=== PATIENT | female | born 1970 | race Hispanic/Latino ===

== ENCOUNTER 2022-08-16 10:48 | Emergency (ER) | payer BC ==
--- OUTSIDE RECORDS SUMMARY | 2022-08-16 11:09 | XMS REPORT | Continuity of Care Document ---
:1970 Author Organization [facility] t Address [address] [place] [address] Care Team Providers Name Role Phone Anne-Marie Cuellar Primary Care Physician JUSTINO HOLBROOK Attending Clinician Unavailable Leonardo Sims Attending Clinician Unavailable Justino Holbrook MD Attending Clinician Lavon Attending Clinician Unavailable WILLIAM BUSBY Attending Clinician Unavailable HEIDI RENDON Attending Clinician Unavailable LUIS DE LEON Attending Clinician Unavailable Luis De Leon MD Attending Clinician Doctor Unassigned, [place] Attending Clinician Unavailable Mela Dhaliwal Attending Clinician MELA DHALIWAL Attending Clinician Unavailable Melina Monroe Attending Clinician DR MELA OLVERA Attending Clinician Unavailable DR NILSA MUNOZ Attending Clinician Unavailable SANJAY GÓMEZ Attending Clinician Unavailable Sanjay Hobson Attending Clinician Only, Adc Test Attending Clinician Unavailable Shahrzad Attending Clinician Unavailable MARIA TERESA Attending Clinician Unavailable Nia Attending Clinician Unavailable DR MARICRUZ LUNDBERG Attending Clinician Unavailable Estrellita Espinosa OD Attending Clinician ESTRELLITA ESPINOSA Attending Clinician Unavailable DR PATRICK MILAN Attending Clinician Unavailable Amber Attending Clinician Unavailable DR NAVA ESTEVEZ Attending Clinician Unavailable Dayday Waite MD Attending Clinician DAYDAY WAITE Attending Clinician Unavailable MARCIA DICKENS Attending Clinician Unavailable Lavon Admitting Clinician Unavailable LUIS DE LEON Admitting Clinician Unavailable Anayeli Islas Admitting Clinician ANAYELI ISLAS Admitting Clinician Unavailable Melina Monroe Admitting Clinician DR MELA OLVERA Admitting Clinician Unavailable DR NILSA MUNOZ Admitting Clinician Unavailable SANJAY GÓMEZ Admitting Clinician Unavailable JUSTINO HOLBROOK Admitting Clinician Unavailable Justino Holbrook MD Admitting Clinician Shahrzad Admitting Clinician Unavailable MARIA TERESA Admitting Clinician Unavailable Nia Admitting Clinician Unavailable DR MARICRUZ LUNDBERG Admitting Clinician Unavailable DR PATRICK MILAN Admitting Clinician Unavailable Amber Admitting Clinician Unavailable DR NAVA ESTEVEZ Admitting Clinician Unavailable MARCIA DICKENS Admitting Clinician Unavailable Payers Payer Name Policy Type Policy Number Effective Date Expiration Date S ource HIM BCBS BLUE [id number] 2022 ADVANTAGE HMO 00:00:00 [facility] [id number] 2022 COMMUN[place] PLAN [place] 00:00:00 (MED[place] [id number] [place] [id number] (PPO) 1000 [id number] 1961 00:00:00 Problems Condition Condition Condition Status Onset Resolution Last Treating Co mments Source Name Details Category Date Date Treatment Clinician Date MEDIASTINA MEDIASTIN Diagnosis Active 2021-062022-05-03 Memoria L MASS AL MASS 0-12 21:48:00 l Active 00:00: [place] 04/10/2022 00 [facility] Fundic Fundic Problem Active [place] gland Gland 4-22 da polyposis Polyposis 00:00: Epis animal cop of stomach of Stomach [facility] Gastritis Gastritis Problem Active [place] 4-22 [facility] Cough Cough Problem Active [place] 3-24 da 00:[facility] History of History of Problem Active M at[place]or SARS-CoV-2 SARS-CoV-2 3-24 da 00:00: [facility] Eyelid Eyelid Disease Active 2020-06 Overview: Univer s lesion lesion 1-24 Formattin ity of 00:00: g of this [place] 00 note Medical might be Branch different from the original. Added automatic ally from request for surgery [id number] Hyperlipid Hyperlipid Problem Active 2019-06 M at[place] emia emia 1-12 da 00:00: [facility] Benign Benign Problem Active 2019-06 [place] essential Essential 1-12 da hypertensi Hypertensi 00:00: [facility] on on [facility] Low back Low Back Problem Active 2019-06 [place] pain Pain 1-12 da 00:00: [facility] Right side Right Side Problem Active 2019-06 M [facility] sciatica Sciatica 1-12 da 00:00: [facility] Subdural Subdural Disease Active Unive rs fluid fluid 6-06 ity of [place] Dysphagia, Dysphagia, Disease Active 2016-06 Overview : Univers pharyngoes pharyngoes 2-12 Formattin ity of ophageal ophageal 00:00: g of this [place] as phase phase 00 note Medical might be Branch different from the original. Added automatic ally from request for surgery [id number] Hydrocepha Hydrocepha Disease Active 2016-06 U nivers janet janet 2-12 ity of 00:00: [place] 00 Medical Branch Obesity Obesity Disease Active 2016-06 Univers (BMI (BMI 2-12 ity of 30-39.9) 30-39.9) 00:00: [place] 00 Medical Branch Aftercare Aftercare Disease Active 2016-06 Uni vers following following 07 ity of surgery of surgery of 00:00: [place] the the Medical nervous nervous Branch system system Obstructiv Obstructiv Disease Active 2016-06 U nivers e e 1-04 ity of hydrocepha hydrocepha 00:00: [place] janet janet 00 Medical Branch Over Over Disease Active Univers weight weight 7- ity of 00:00: [place] [facility] Hydrocepha Hydrocepha Problem Active M atagor janet janet 1 da 00:00: [facility] Contracept Contracept Disease Active U shaka michael michael 7 ity of management management 00:[place]: [place] History of History of Disease Active U shaka tubal tubal 705 ity of ligation ligation 00:00: [place] [facility] Branch 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 (finding) (finding) Active Problem 04/26/2022 [facility] ILLNESS, ILLNESS, Diagnosis Active 2022-05-03 Memoria UNSPECIFIE UNSPECIFIE 21:48:00 l D D Active [facility] Chronic Chronic Problem Active 2022-04-26 Me moria cough cough 23:31:32 l (finding) (finding) Herm yaneth Active Problem 04/26/2022 [facility] Gastroesop Gastroeso Problem Active 2022-04-26 Memoria hageal phageal 23:31:32 l reflux reflux Man disease disease (disorder) (disorder) Active Problem 04/26/2022 [facility] Hypertensi Hypertens Problem Active 2022-04-26 Memoria ve michael 23:31:32 l disorder, disorder, Herm yaneth systemic systemic arterial arterial (disorder) (disorder) Active Problem 04/26/2022 [facility] Microcytic Microcyti Problem Active 2022-04-26 Memoria hypochromi c 23:31:32 l c anemia hypochromi Herm yaneth (disorder) c anemia (disorder) Active Problem 04/26/2022 [facility] Costochond Disease Active U shaka lopez ity of [place] Medical [place] Allergies, Adverse Reactions, Alerts Allergy Allergy Status Severity Reaction(s) Onset Inactive Treating Comm ents Source Name Type Date Date Clinician Morphine DA Active Unknown 2019-06 [place] 07-01 Medical 00:00: Center 00 Morphine Propensi Active Itching Unive rs ty to 01-24 ity of adverse 00:00: [place] reaction 00 Medical s Branch MORPHINE DRUG Active Low ITCHING Univers INGREDI 01-24 ity of 00:00: [place] 00 Medical Branch Morphine Propensi Active Itching Unive rs ty to 01-24 ity of adverse 00:00: [place] reaction 00 Medical s to Branch drug morphine morphine Active Rhonda Conway Family History Family Member Diagnosis Comments Start Date Stop Date Source Natural father Heart [facility] Maternal Aunt Cancer [facility] Maternal Aunt Diabetes [facility] Natural mother Cancer [facility] Paternal Diabetes University of grandmother [facility] Natural sister Psychiatry [facility] Family member Arthritis [facility] Family member Asthma [facility] Family member defects Universi ty of [facility] Family member Breast Cancer Universi ty of [facility] Family member Colon Cancer Universit y [facility] Family member Depression [facility] Family member Genetic [facility] Family member High cholesterol Unive rsity of [facility] Family member Hypertension Universit y of [facility] Family member Mental retardation Uni versity [facility] Family member Neurological Universit y [facility] Family member Osteoporosis Universit y of [facility] Family member Other - see University of [facility] Family member Ovarian Cancer Univers ity [facility] Family [facility] Social History Social Habit Start Date Stop Date Quantity Comments Source History SDOH University o f Alcohol Frequency [place] M edical Branch History SDOH University o f Alcohol Std [place] Medical Drinks Branch History SDOH University o f Alcohol Binge [place] Medic al [place] Exposure to 2022-05-25 2022-06-04 Not sure University of SARS-CoV-2 00:00:00 10:37:00 [facility] (event) Branch Alcohol intake 2022-06-04 2022-06-04 0 /d University of 00:00:00 00:00:00 [facility] Alcohol Comment 2017-01-24 2017-01-24 socially Universit y of 00:00:00 00:00:00 [facility] Tobacco use and 2012-09-08 2012-09-08 Smokeless tobacco Un iversity of exposure 00:00:00 00:00:00 non-user [facility] Sex [birth year] At [birth year] Universit y of 00:00:00 00:00:00 [facility] Smoking Status Start Date Stop Date Source Tobacco smoking status [facility] Medications Ordered Filled Start Stop Current Ordering Indication Dosage Frequency Signature Comments Components Source Medication Medication Date Date Medication? Clinician (SIG) Name Name iopamidol 2021-06 No [id number] 75mL 75 mL, Univers (ISOVUE 08-05 Intravenou ity o f 370-500 mL) 21:00: 21:00 s, ONCE, 1 [place] injection 00 :00 dose, On Medica l 75 mL [facility] 06/04/22 at 1500, Routine aspirin 2021-06 No 325mg 325 mg, Unive rs tablet 325 08-05 Oral, ity of mg 19:00: 17:57 ONCE, 1 [place] 00 :00 dose, On Medical [facility] 06/04/22 at 1300, NADER ketorolac 2021-06 No 30mg 30 mg, Unive rs (TORADOL) 08-05 Slow IV ity of injection 19:00: 17:58 Push, [place] 30 mg 00 :00 ONCE, 1 Medical dose, On [facility] 06/04/22 at 1300, NADER allopurinoL 2021-06 Yes 300mg Take 300 U nivers 300 mg 2-06 mg by ity of tablet 16:46: mouth in [place] 01 the Medical morning. Branch acetic acid 2021-06 Yes 5[drp] Place 5 U nivers 2 % otic 2-06 Drops in ity of solution 16:46: both ears [place] 01 in the Medical morning Branch and 5 Drops at noon and 5 Drops in the evening. benzonatate 2021-06 Yes 200mg Take 200 U nivers 200 mg 2-06 mg by ity of capsule 16:46: mouth [place] 01 every 6 Medical (six) Branch hours as needed for Cough. budesonide 2021-06 Yes .25mg Inhale [facility] ers 0.25 mg/2 2-06 0.25 mg in ity of mL 16:46: the [place] nebulizer 01 morning Medical solution and 0.25 Branch mg in the evening. cetirizine 2021-06 Yes 10mg Take 10 mg U nivers 10 mg 2-06 by mouth ity of tablet 16:46: in the [place] morning. Medical Branch phenylephri 2021-06 Yes Take 1 [facility] ers ne-DM-guaif 2-06 TAB-CAP/M2 it y of enesin 16:46: by mouth [place] (DECONEX 01 every 4 Medical DMX) (four) Branch 10-17.5-385 hours as mg Tab needed (cough). famotidine 2021-06 Yes 20mg Take 20 mg U nivers 20 mg 2-06 by mouth ity of tablet 16:46: in the [place] morning Medical and 20 mg Branch in the evening. fluticasone 2021-06 Yes Use in [facility] ers propionate 2-06 each ity of 50 16:46: nostril [place] mcg/actuati daily. Medica l on nasal Branch spray hydroCHLORO 2021-06 Yes 12.5mg Take 12.5 Univers thiazide 2-06 mg by ity of 12.5 mg 16:46: mouth in [place] capsule the Medical morning. Branch montelukast 2021-06 Yes 10mg Take 10 mg Univers 10 mg 2-06 by mouth ity of tablet 16:46: at [place] [address] bedtime. Medical Branch omeprazole 2021-06 Yes 20mg Take 20 mg U nivers 20 mg 2-06 by mouth ity of capsule 16:46: in the [place] morning. Medical Branch pantoprazol 2021-06 Yes 40mg Take 40 mg Univers e 40 mg EC 2-06 by mouth ity o f tablet 16:46: in the [place] morning. Medical Branch sucralfate 2021-06 Yes 1g Take 1 g Uni vers 1 gram 2-06 by mouth ity of tablet 16:46: before [place] [address] meals and Medical at [place] bedtime. allopurinoL 2021-06 Yes 300mg Take 300 U nivers 300 mg 2-06 mg by ity of tablet 16:46: mouth in [place] 01 the Medical morning. Branch acetic acid 2021-06 Yes 5[drp] Place 5 U nivers 2 % otic 2-06 Drops in ity of solution 16:46: [place] 01 in the Medical morning Branch and 5 Drops at noon and 5 Drops in the evening. benzonatate 2021-06 Yes 200mg Take 200 U nivers 200 mg 2-06 mg by ity of capsule 16:46: mouth [place] 01 every 6 Medical (six) Branch hours as needed for Cough. budesonide 2021-06 Yes .25mg Inhale [facility] ers 0.25 mg/2 2-06 0.25 mg in ity of mL 16:46: the [place] nebulizer 01 morning Medical solution and 0.25 Branch mg in the evening. cetirizine 2021-06 Yes 10mg Take 10 mg U nivers 10 mg 2-06 by mouth ity of tablet 16:46: in the [place] morning. Medical Branch phenylephri 2021-06 Yes Take 1 [facility] ers ne-DM-guaif 2-06 TAB-CAP/M2 it y of enesin 16:46: by mouth [place] (DECONEX 01 every 4 Medical DMX) (four) Branch 10-17.5-385 hours as mg Tab needed (cough). famotidine 2021-06 Yes 20mg Take 20 mg U nivers 20 mg 2-06 by mouth ity of tablet 16:46: in the [place] morning Medical and 20 mg Branch in the evening. fluticasone 2021-06 Yes Use in [facility] ers propionate 2-06 each ity of 50 16:46: nostril [place] mcg/actuati 01 daily. Medica l on nasal Branch spray hydroCHLORO 2021-06 Yes 12.5mg Take 12.5 Univers thiazide 2-06 mg by ity of 12.5 mg 16:46: mouth in [place] capsule 01 the Medical morning. Branch montelukast 2021-06 Yes 10mg Take 10 mg Univers 10 mg 2-06 by mouth ity of tablet 16:46: at [place] [address] bedtime. Medical Branch omeprazole 2021-06 Yes 20mg Take 20 mg U nivers 20 mg 2-06 by mouth ity of capsule 16:46: in the [place] morning. Medical Branch pantoprazol 2021-06 Yes 40mg Take 40 mg Univers e 40 mg EC 2-06 by mouth ity o f tablet 16:46: in the morning. Medical Branch sucralfate 2021-06 Yes 1g Take 1 g Uni vers 1 gram 2-06 by mouth ity of tablet 16:46: before meals and Medical at Branch bedtime. traMADOL 50 2021-06- No 50mg Take 50 mg Univers mg tablet 2- by mouth ity o f 11:35: 00:00 every 8 [place] 55 :00 (eight) Medical hours as Branch needed. LISINOPRIL 2021-06 No 1{tbl} Take 1 Un maulik ORAL 2- tablet by ity of 11:35: 00:00 mouth [place] 45 :00 daily. Medical Branch IBUPROFEN/D 2021-06 No 1{tbl} Take 1 U nivers IPHENHYDRAM 2- tablet by it y of INE CIT 11:35: 00:00 mouth as [place] (ADVIL PM 42 :00 needed. Medical ORAL) Branch HYDROCHLORO 2021-06 No Take 1 Uni vers THIAZIDE 2- TAB-CAP/M2 ity of ORAL 11:35: 00:00 by mouth [place] 36 :00 daily. Medical Branch amlodipine 2021-06 No Take 1 Univ ers besylate 2- TAB-CAP/M2 ity of (AMLODIPINE 11:35: 00:00 by mouth [place] ORAL) 33 :00 daily. Medical Branch ondansetron 2021-06 Yes [id number] 1-2 U nivers 4 mg tablet 2-06 tablets ity o f 00:00: every 8 [place] 00 hours as Medical needed for Branch nausea benzonatate 2021-06 Yes [id number] 200mg Take 1 Univers 200 mg 2-06 capsule by ity of capsule 00:00: mouth 3 [place] 00 (three) Medical times Branch daily as needed for Cough. albuterol 2021-06 Yes [id number] 2{puff} Inhale 2 Univers 90 2-06 Puffs ity of mcg/actuati 00:00: every 4 [place] as on inhaler 00 (four) Medical hours as Branch needed for Wheezing or Shortness of Breath. ondansetron 2021-06 Yes [id number] 1-2 U nivers 4 mg tablet 2-06 tablets ity o f 00:00: every 8 [place] 00 hours as Medical needed for Branch nausea benzonatate 2021-06 Yes [id number] 200mg Take 1 Univers 200 mg 2-06 capsule by ity of capsule 00:00: mouth 3 [place] 00 (three) Medical times Branch daily as needed for Cough. albuterol 2021-06 Yes [id number] 2{puff} Inhale 2 Univers 90 2-06 Puffs ity of mcg/actuati 00:00: every 4 [place] as on inhaler 00 (four) Medical hours as Branch needed for Wheezing or Shortness of Breath. acetaminoph 2021-06- Yes [id number] 1{tbl} Take 1 U nivers en-codeine 2-06 12-14 tablet by ity of 300-30 mg 00:00: 05:59 mouth [place] tablet 00 :00 every 4 Medical (four) Branch hours as needed (pain) for up to 7 days. Indication s: acute pain allopurinol 2021-06 Yes 300 mg = 1 Memoria 300 mg oral 0-26 tab, PO, l tablet 17:52: Daily, # [place] 00 30 tab, 0 Refill(s), Pharmacy: [id number], 162.56, cm, 04/10/22 22:50:00 CDT, Height, 74.7, kg, 04/10/22 22:50:00 CDT, Weight docusate 2021-06 Yes 100 mg = 1 Mem oria sodium 100 0-26 cap, PO, l mg oral 17:52: Daily, 0 Michael n capsule 00 Refill(s) allopurinol 2021-06 Yes 300 mg = 1 Memoria 300 mg oral 0-26 tab, PO, l tablet 17:52: Daily, # Man 00 30 tab, 0 Refill(s), Pharmacy: [id number], 162.56, cm, 04/10/22 22:50:00 CDT, Height, 74.7, kg, 04/10/22 22:50:00 CDT, Weight docusate 2021-06 Yes 100 mg = 1 Mem oria sodium 100 0-26 cap, PO, l mg oral 17:52: Daily, 0 Michael n capsule 00 Refill(s) allopurinol 2021-06 Yes 300 mg = 1 Memoria 300 mg oral 0-26 tab, PO, l tablet 17:52: Daily, # [place] 00 30 tab, 0 Refill(s), Pharmacy: [id number], 162.56, cm, 04/10/22 22:50:00 CDT, Height, 74.7, kg, 04/10/22 22:50:00 CDT, Weight docusate 2021-06 Yes 100 mg = 1 Mem oria sodium 100 0-26 cap, PO, l mg oral 17:52: Daily, 0 Michael n capsule 00 Refill(s) allopurinol 2021-06 Yes 300 mg = 1 Memoria 300 mg oral 0-26 tab, PO, l tablet 17:52: Daily, # [place] 00 30 tab, 0 Refill(s), Pharmacy: [id number], 162.56, cm, 04/10/22 22:50:00 CDT, Height, 74.7, kg, 04/10/22 22:50:00 CDT, Weight docusate 2021-06 Yes 100 mg = 1 Mem oria sodium 100 0-26 cap, PO, l mg oral 17:52: Daily, 0 Michael n capsule 00 Refill(s) allopurinol 2021-06 Yes 300 mg = 1 Memoria 300 mg oral 0-26 tab, PO, l tablet 17:52: Daily, # Man 00 30 tab, 0 Refill(s), Pharmacy: [id number], 162.56, cm, 04/10/22 22:50:00 CDT, Height, 74.7, kg, 04/10/22 22:50:00 CDT, Weight docusate 2021-06 Yes 100 mg = 1 Mem oria sodium 100 0-26 cap, PO, l mg oral 17:52: Daily, 0 Michael n capsule 00 Refill(s) MiraLax 2021-06 Yes Notes: Memoria 0-16 Dissolve l 14:00: in 8 oz of Man 00 water or juice. (Same as: Miralax) docusate 2021-06 Yes Notes: Memoria 0-16 (Same as: l 14:00: Colace) [place] 00 (Do Not Crush) MiraLax 2021-06 Yes Notes: Memoria 0-16 Dissolve l 14:00: in 8 oz of [place] 00 water or juice. (Same as: Miralax) docusate 2021-06 Yes Notes: Memoria 0-16 (Same as: l 14:00: Colace) Man 00 (Do Not Crush) MiraLax 2021-06 Yes Notes: Memoria 0-16 Dissolve l 14:00: in 8 oz of [place] 00 water or juice. (Same as: Miralax) docusate 2021-06 Yes Notes: Memoria 0-16 (Same as: l 14:00: Colace) [place] 00 (Do Not Crush) MiraLax 2021-06 Yes Notes: Memoria 0-16 Dissolve l 14:00: in 8 oz of [place] 00 water or juice. (Same as: Miralax) docusate 2021-06 Yes Notes: Memoria 0-16 (Same as: l 14:00: Colace) [place] 00 (Do Not Crush) MiraLax 2021-06 Yes Notes: Memoria 0-16 Dissolve l 14:00: in 8 oz of [place] 00 water or juice. (Same as: Miralax) docusate 2021-06 Yes Notes: Memoria 0-16 (Same as: l 14:00: Colace) Man 00 (Do Not Crush) Dulcolax 2021-06 Yes Notes: Memoria Laxative 0-15 (Same As: l 18:16: Dulcolax, [place] 00 Bisco-Lax) Dulcolax 2021-06 Yes Notes: Memoria Laxative 0-15 (Same As: l 18:16: Dulcolax, [place] 00 Bisco-Lax) Dulcolax 2021-06 Yes Notes: Memoria Laxative 0-15 (Same As: l 18:16: Dulcolax, Man 00 Bisco-Lax) Dulcolax 2021-06 Yes Notes: Memoria Laxative 0-15 (Same As: l 18:16: Dulcolax, [place] 00 Bisco-Lax) Dulcolax 2021-06 Yes Notes: Memoria Laxative 0-15 (Same As: l 18:16: Dulcolax, [place] 00 Bisco-Lax) Dulcolax 2021-06 No Notes: Memoria Laxative 0-15 (Same As: l 18:14: Dulcolax, Man 00 Correctol) (Do Not Crush) "Do Not Crush" MiraLax 2021-06 No Notes: Memoria 0-15 Dissolve l 18:14: in 8 oz of [place] 00 water or juice. (Same as: Miralax) Dulcolax 2021-06 No Notes: Memoria Laxative 0-15 (Same As: l 18:14: Dulcolax, Man 00 Correctol) (Do Not Crush) "Do Not Crush" MiraLax 2021-06 No Notes: Memoria 0-15 Dissolve l 18:14: in 8 oz of [place] 00 water or juice. (Same as: Miralax) Dulcolax 2021-06 No Notes: Memoria Laxative 0-15 (Same As: l 18:14: Dulcolax, [place] 00 Correctol) (Do Not Crush) "Do Not Crush" MiraLax 2021-06 No Notes: Memoria 0-15 Dissolve l 18:14: in 8 oz of [place] 00 water or juice. (Same as: Miralax) Dulcolax 2021-06 No Notes: Memoria Laxative 0-15 (Same As: l 18:14: Dulcolax, Man 00 Correctol) (Do Not Crush) "Do Not Crush" MiraLax 2021-06 No Notes: Memoria 0-15 Dissolve l 18:14: in 8 oz of [place] 00 water or juice. (Same as: Miralax) Dulcolax 2021-06 No Notes: Memoria Laxative 0-15 (Same As: l 18:14: Dulcolax, [place] 00 Correctol) (Do Not Crush) "Do Not Crush" MiraLax 2021-06 No Notes: Memoria 0-15 Dissolve l 18:14: in 8 oz of [place] 00 water or juice. (Same as: Miralax) montelukast 2021-06 Yes Notes: [place] alivia 0-14 (Same l 02:00: as:Singula [place] 00 ir) montelukast 2021-06 Yes Notes: [place] alivia 0-14 (Same l 02:00: as:Singula [place] 00 ir) montelukast 2021-06 Yes Notes: [place] alivia 0-14 (Same l 02:00: as:Singula [place] ir) montelukast 2021-06 Yes Notes: [place] alivia 0-14 (Same l 02:00: as:Singula Man ir) montelukast 2021-06 Yes Notes: [place] alivia 0-14 (Same l 02:00: as:Singula [place] ir) guaiFENesin 2021-06 Yes Notes: [place] alivia 0-13 (Same as: l 14:00: Guaifenesi [place] 00 n [place], Humibid [place], Mucinex) "Do Not Crush" Take medication with plenty of water. acetic acid 2021-06 Yes 5 drp, [place] alivia otic 2% 0-13 Route: l solution 14:00: BOTH EARS, Her swanson 00 Drug Form: SOLN, Dosing Weight 74.7, kg, TID, Start date: 04/11/22 9:00:00 CDT, Duration: 30 day, Stop date: 05/10/22 17:00:00 [employer], 0 amLODIPine 2021-06 Yes Notes: Memor ia 0-13 (Same as: l 14:00: Norvasc) famotidine 2021-06 Yes Notes: Memor ia 20 mg oral 0-13 (Same as: l tablet 14:00: Pepcid) hydrochloro 2021-06 Yes Notes: [place]ble alivia thiazide 0-13 (Same as: l 14:00: Hydrodiuri Man 00 l). Give with food. sucralfate 2021-06 Yes Notes: May M emoria 0-13 interfere l 14:00: w/enteral [place] 00 feeds - Take 1 hr before or 2 hr after antacids, dairy pdt, meals & minerals - On empty stomach. For patients unable to swallow tablet, dissolve in 10mL - 30mL of water or juice and stir before giving. (Same As: Carafate) guaiFENesin 2021-06 Yes Notes: [place] alivia 0-13 (Same as: l 14:00: Guaifenesi Man 00 n [place], Humibid [place], Mucinex) "Do Not Crush" Take medication with plenty of water. acetic acid 2021-06 Yes 5 drp, [place] alivia otic 2% 0-13 Route: l solution 14:00: BOTH EARS, Her sw[place] 00 Drug Form: SOLN, Dosing Weight 74.7, kg, TID, Start date: 04/11/22 9:00:00 CDT, Duration: 30 day, Stop date: 05/10/22 17:00:00 [employer], 0 amLODIPine 2021-06 Yes Notes: Memor ia 0-13 (Same as: l 14:00: Norvasc) famotidine 2021-06 Yes Notes: Memor ia 20 mg oral 0-13 (Same as: l tablet 14:00: Pepcid) hydrochloro 2021-06 Yes Notes: [place] alivia thiazide 0-13 (Same as: l 14:00: Hydrodiuri l). Give with food. sucralfate 2021-06 Yes Notes: October emoria 0-13 interfere l 14:00: w/enteral feeds - Take 1 hr before or 2 hr after antacids, dairy pdt, meals & minerals - On empty stomach. For patients unable to swallow tablet, dissolve in 10mL - 30mL of water or juice and stir before giving. (Same As: Carafate) guaiFENesin 2021-06 Yes Notes: [place] alivia 0-13 (Same as: l 14:00: Guaifenesi n [place], Humibid [place], Mucinex) "Do Not Crush" Take medication with plenty of water. acetic acid 2021-06 Yes 5 drp, [facility] alivia otic 2% 0-13 Route: l solution 14:00: BOTH EARS, Her swanson 00 Drug Form: SOLN, Dosing Weight 74.7, kg, TID, Start date: 04/11/22 9:00:00 CDT, Duration: 30 day, Stop date: 05/10/22 17:00:00 [employer]ODUCTION [employer]OCIATE, 0 amLODIPine 2021-06 Yes Notes: Memor ia 0-13 (Same as: l 14:00: Norvasc) famotidine 2021-06 Yes Notes: [facility] ia 20 mg oral 0-13 (Same as: l tablet 14:00: Pepcid) hydrochloro 2021-06 Yes Notes: [facility] alivia thiazide 0-13 (Same as: l 14:00: Hydrodiuri Man 00 l). Give with food. sucralfate 2021-06 Yes Notes: October M emoria 0-13 interfere l 14:00: w/enteral [place] 00 feeds - Take 1 hr before or 2 hr after antacids, dairy pdt, meals & minerals - On empty stomach. For patients unable to swallow tablet, dissolve in 10mL - 30mL of water or juice and stir before giving. (Same As: Carafate) guaiFENesin 2021-06 Yes Notes: [facility] alivia 0-13 (Same as: l 14:00: Guaifenesi Man 00 n [place], Humibid [place], Mucinex) "Do Not Crush" Take medication with plenty of water. acetic acid 2021-06 Yes 5 drp, [facility] alivia otic 2% 0-13 Route: l solution 14:00: BOTH EARS, Her swanson 00 Drug Form: SOLN, Dosing Weight 74.7, kg, TID, Start date: 04/11/22 9:00:00 CDT, Duration: 30 day, Stop date: 05/10/22 17:00:00 [employer]ODUCTION [employer]OCIATE, 0 amLODIPine 2021-06 Yes Notes: Mem[facility] ia 0-13 (Same as: l 14:00: Norvasc) famotidine 2021-06 Yes Notes: [facility] ia 20 mg oral 0-13 (Same as: l tablet 14:00: Pepcid) hydrochloro 2021-06 Yes Notes: [facility] alivia thiazide 0-13 (Same as: l 14:00: Hydrodiuri [place] 00 l). Give with food. sucralfate 2021-06 Yes Notes: October M emoria 0-13 interfere l 14:00: w/enteral [place] 00 feeds - Take 1 hr before or 2 hr after antacids, dairy pdt, meals & minerals - On empty stomach. For patients unable to swallow tablet, dissolve in 10mL - 30mL of water or juice and stir before giving. (Same As: Carafate) guaiFENesin 2021-06 Yes Notes: [facility] alivia 0-13 (Same as: l 14:00: Guaifenesi Man 00 n [place], Humibid [place], Mucinex) "Do Not Crush" Take medication with plenty of water. 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 Give with food. sucralfate 2021-06 Yes Notes: May M emoria 0-13 interfere l 14:00: w/enteral [place] 00 feeds - Take 1 hr before or 2 hr after antacids, dairy pdt, meals & minerals - On empty stomach. For patients unable to swallow tablet, dissolve in 10mL - 30mL of water or juice and stir before giving. (Same As: Carafate) pantoprazol 2021-06 Yes Notes: [facility] alivia e 0-13 Tablet l 12:30: should not [place] 00 be chewed or crushed. (Same as: Protonix) pantoprazol 2021-06 Yes Notes: [facility] alivia e 0-13 Tablet l 12:30: should not [place] 00 be chewed or crushed. (Same as: Protonix) pantoprazol 2021-06 Yes Notes: [facility] alivia e 0-13 Tablet l 12:30: should not [place] 00 be chewed or crushed. (Same as: Protonix) pantoprazol 2021-06 Yes Notes: [facility] alivia e 0-13 Tablet l 12:30: should not [place] 00 be chewed or crushed. (Same as: Protonix) pantoprazol 2021-06 Yes Notes: [facility] alivia e 0-13 Tablet l 12:30: should not Man 00 be chewed or crushed. (Same as: Protonix) budesonide 2021-06 Yes Notes: [facility] ia 0.25 mg/2 0-13 (Same As: l mL 05:07: Pulmicort Man inhalation 00 respule). suspension budesonide 2021-06 Yes Notes: [facility] ia 0.25 mg/2 0-13 (Same As: l mL 05:07: Pulmicort [place] inhalation 00 respule). suspension budesonide 2021-06 Yes Notes: Mem[facility] ia 0.25 mg/2 0-13 (Same As: l mL 05:07: Pulmicort [place] inhalation 00 respule). suspension budesonide 2021-06 Yes Notes: [facility] ia 0.25 mg/2 0-13 (Same As: l mL 05:07: Pulmicort Man inhalation 00 respule). suspension budesonide 2021-06 Yes Notes: [facility] ia 0.25 mg/2 0-13 (Same As: l mL 05:07: Pulmicort [place] inhalation 00 respule). suspension benzonatate 2021-06 Yes Notes: [facility] alivia 0-13 (Same As: l 05:01: [place] Man 00 Perles) "Do Not Crush" benzonatate 2021-06 Yes Notes: [facility] alivia 0-13 (Same As: l 05:01: [place] Man 00 Perles) "Do Not Crush" benzonatate 2021-06 Yes Notes: [facility] alivia 0-13 (Same As: l 05:01: [place] Man 00 Perles) "Do Not Crush" benzonatate 2021-06 Yes Notes: [facility] alivia 0-13 (Same As: l 05:01: [place] Man 00 Perles) "Do Not Crush" benzonatate 2021-06 Yes Notes: [facility] alivia 0-13 (Same As: l 05:01: Tess[place]on [place] 00 Perles) "Do Not Crush" influenza 2021-06 Yes Notes: Memori a virus 0-13 (Same as: l vaccine, 04:59: Fluzone Michael n inactivated 55 Quadrivale nt, Fluarix Quadrivale nt) For patients 6 - 35 months of age (0.5 mL IM) For 3 years of age and older (0.5 mL IM) Shake well before use influenza 2021-06 Yes Notes: [facility] a virus 0-13 (Same as: l vaccine, 04:59: Fluzone Michael n inactivated 55 Quadrivale nt, Fluarix Quadrivale nt) For patients 6 - 35 months of age (0.5 mL IM) For 3 years of age and older (0.5 mL IM) Shake well before use influenza 2021-06 Yes Notes: [facility] a virus 0-13 (Same as: l vaccine, 04:59: Fluzone Michael n inactivated 55 Quadrivale nt, Fluarix Quadrivale nt) For patients 6 - 35 months of age (0.5 mL IM) For 3 years of age and older (0.5 mL IM) Shake well before use influenza 2021-06 Yes Notes: [facility] a virus 0-13 (Same as: l vaccine, 04:59: Fluzone Michael n inactivated 55 Quadrivale nt, Fluarix Quadrivale nt) For patients 6 - 35 months of age (0.5 mL IM) For 3 years of age and older (0.5 mL IM) Shake well before use influenza 2021-06 Yes Notes: [facility] a virus 0-13 (Same as: l vaccine, 04:59: Fluzone Michael n inactivated 55 Quadrivale nt, Fluarix Quadrivale nt) For patients 6 - 35 months of age (0.5 mL IM) For 3 years of age and older (0.5 mL IM) Shake well before use guaiFENesin 2021-06 No Notes: [facility] alivia 0-13 (Same as: l 04:38: Guaifenesi Man 00 n [place], Humibid LA, Mucinex) "Do Not Crush" Take medication with plenty of water. aiFENesin 2021-06 No Notes: [facility] alivia 0-13 (Same as: l 04:38: Guaifenesi Man 00 n [place], Humibid LA, Mucinex) "Do Not Crush" Take medication with plenty of water. aiFENesin 2021-06 No Notes: [facility] aliiva 0-13 (Same as: l 04:38: Guaifenesi Man 00 n LA, Humibid LA, Mucinex) "Do Not Crush" Take medication with plenty of water. aiFENesin 2021-06 No Notes: [facility] alivia 0-13 (Same as: l 04:38: Guaifenesi Man 00 n LA, Humibid LA, Mucinex) "Do Not Crush" Take medication with plenty of water. aiFENesin 2021-06 No Notes: [facility] alivia 0-13 (Same as: l 04:38: Guaifenesi Man 00 n [place], Humibid [place], Mucinex) "Do Not Crush" Take medication with plenty of water. Dilaudid 2021-06 Yes Notes: [facility] 0-13 Same as: l 04:22: Dilaudid [place] 00 Dilaudid 2021-06 Yes Notes: [facility] 0-13 Same as: l 04:22: Dilaudid [place] Dilaudid 2021-06 Yes Notes: [facility] 0-13 Same as: l 04:22: Dilaudid Man 00 Dilaudid 2021-06 Yes Notes: [facility] 0-13 Same as: l 04:22: Dilaudid Man 00 Dilaudid 2021-06 Yes Notes: [facility] 0-13 Same as: l 04:22: Dilaudid Man 00 Dilaudid 2021-06 No Notes: [facility] 0-13 Same as: l 04:19: Dilaudid [place] 00 Dilaudid 2021-06 No Notes: [facility] 0-13 Same as: l 04:19: Dilaudid [place] 00 Dilaudid 2021-06 No Notes: [facility] 0-13 Same as: l 04:19: Dilaudid Man 00 Dilaudid 2021-06 No Notes: [facility] 0-13 Same as: l 04:19: Dilaudid [place] 00 Dilaudid 2021-06 No Notes: [facility] 0-13 Same as: l 04:19: Dilaudid Man 00 omeprazole 2021-06 Yes 20 mg = 1 Me moria 20 mg oral 0-13 cap, PO, l delayed 04:18: Daily, # Michael n release 00 30 cap, 0 capsule Refill(s) omeprazole 2021-06 Yes 20 mg = 1 Me moria 20 mg oral 0-13 cap, PO, l delayed 04:18: Daily, # Michael n release 00 30 cap, 0 capsule Refill(s) omeprazole 2021-06 Yes 20 mg = 1 Me moria 20 mg oral 0-13 cap, PO, l delayed 04:18: Daily, # Michael n release 00 30 cap, 0 capsule Refill(s) omeprazole 2021-06 Yes 20 mg = 1 Me moria 20 mg oral 0-13 cap, PO, l delayed 04:18: Daily, # Michael n release 00 30 cap, 0 capsule Refill(s) omeprazole 2021-06 Yes 20 mg = 1 Me moria 20 mg oral 0-13 cap, PO, l delayed 04:18: Daily, # Michael n release 00 30 cap, 0 capsule Refill(s) budesonide 2021-06 Yes 0.25 mg = Me moria 0.25 mg/2 0-13 2 mL, NEB, l mL 04:17: BID, # 60 [place] inhalation 00 ea, 3 suspension Refill(s) budesonide 2021-06 Yes 0.25 mg = Me moria 0.25 mg/2 0-13 2 mL, NEB, l mL 04:17: BID, # 60 [place] inhalation 00 ea, 3 suspension Refill(s) budesonide 2021-06 Yes 0.25 mg = Me moria 0.25 mg/2 0-13 2 mL, NEB, l mL 04:17: BID, # 60 Man inhalation 00 ea, 3 suspension Refill(s) budesonide 2021-06 Yes 0.25 mg = Me moria 0.25 mg/2 0-13 2 mL, NEB, l mL 04:17: BID, # 60 Man inhalation 00 ea, 3 suspension Refill(s) budesonide 2021-06 Yes 0.25 mg = Me moria 0.25 mg/2 0-13 2 mL, NEB, l mL 04:17: BID, # 60 [place] inhalation 00 ea, 3 suspension Refill(s) benzonatate 2021-06 Yes 200 mg = 1 Memoria 200 mg oral 0-13 cap, PO, l capsule 04:15: Q6H, PRN Michael n 00 as needed for cough, 0 Refill(s) benzonatate 2021-06 Yes 200 mg = 1 [facility] 200 mg oral 0-13 cap, PO, l capsule 04:15: Q6H, PRN Michael n 00 as needed for cough, 0 Refill(s) benzonatate 2021-06 Yes 200 mg = 1 [facility] 200 mg oral 0-13 cap, PO, l capsule 04:15: Q6H, PRN Michael n 00 as needed for cough, 0 Refill(s) benzonatate 2021-06 Yes 200 mg = 1 [facility] 200 mg oral 0-13 cap, PO, l capsule 04:15: Q6H, PRN Michael n 00 as needed for cough, 0 Refill(s) benzonatate 2021-06 Yes 200 mg = 1 Memoria 200 mg oral 0-13 cap, PO, l capsule 04:15: Q6H, PRN Michael n 00 as needed for cough, 0 Refill(s) fluticasone 2021-06 Yes 50 Memori a propionate 0-13 microgram, l 04:13: INHALATION [place] 00 , Daily, 0 Refill(s) fluticasone 2021-06 Yes 50 Mem[facility] a propionate 0-13 microgram, l 04:13: INHALATION [place] 00 , Daily, 0 Refill(s) fluticasone 2021-06 Yes 50 Memori a propionate 0-13 microgram, l 04:13: INHALATION Man 00 , Daily, 0 Refill(s) fluticasone 2021-06 Yes 50 Memori a propionate 0-13 microgram, l 04:13: INHALATION Man 00 , Daily, 0 Refill(s) fluticasone 2021-06 Yes 50 Memori a propionate 0-13 microgram, l 04:13: INHALATION [place] 00 , Daily, 0 Refill(s) acetic acid 2021-06 Yes 5 drp, [facility] alivia otic 2% 0-13 BOTH EARS, l solution 04:11: TID, # 15 Herm yaneth 00 ml, 0 Refill(s) acetic acid 2021-06 Yes 5 drp, [facility] alivia otic 2% 0-13 BOTH EARS, l solution 04:11: TID, # 15 Herm yaneth 00 ml, 0 Refill(s) acetic acid 2021-06 Yes 5 drp, [facility] alivia otic 2% 0-13 BOTH EARS, l solution 04:11: TID, # 15 Herm yaneth 00 ml, 0 Refill(s) acetic acid 2021-06 Yes 5 drp, [facility] alivia otic 2% 0-13 BOTH EARS, l solution 04:11: TID, # 15 Herm yaneth 00 ml, 0 Refill(s) acetic acid 2021-06 Yes 5 drp, [facility] alivia otic 2% 0-13 BOTH EARS, l solution 04:11: TID, # 15 Herm yaneth 00 ml, 0 Refill(s) pantoprazol 2021-06 Yes 40 mg = 1 M emoria e 40 mg 0-13 tab, PO, l oral 04:10: Daily, # [place] enteric 00 30 tab, 0 coated Refill(s) tablet pantoprazol 2021-06 Yes 40 mg = 1 M emoria e 40 mg 0-13 tab, PO, l oral 04:10: Daily, # Man enteric 00 30 tab, 0 coated Refill(s) tablet pantoprazol 2021-06 Yes 40 mg = 1 M emoria e 40 mg 0-13 tab, PO, l oral 04:10: Daily, # Man enteric 00 30 tab, 0 coated Refill(s) tablet pantoprazol 2021-06 Yes 40 mg = 1 M emoria e 40 mg 0-13 tab, PO, l oral 04:10: Daily, # Man enteric 00 30 tab, 0 coated Refill(s) tablet pantoprazol 2021-06 Yes 40 mg = 1 M emoria e 40 mg 0-13 tab, PO, l oral 04:10: Daily, # [place] enteric 00 30 tab, 0 coated Refill(s) tablet amLODIPine 2021-06 Yes 5 mg = 1 Mem oria 5 mg oral 0-13 tab, PO, l tablet 04:06: Daily, # Man 00 30 tab, 0 Refill(s) Deconex DMX 2021-06 Yes PO, Q4H, Me moria 0-13 PRN as l 04:06: needed for Man 00 cough and congestion , 0 Refill(s) amLODIPine 2021-06 Yes 5 mg = 1 Mem oria 5 mg oral 0-13 tab, PO, l tablet 04:06: Daily, # [place] 00 30 tab, 0 Refill(s) Deconex DMX 2021-06 Yes PO, Q4H, Me moria 0-13 PRN as l 04:06: needed for [place] 00 cough and congestion , 0 Refill(s) amLODIPine 2021-06 Yes 5 mg = 1 Mem oria 5 mg oral 0-13 tab, PO, l tablet 04:06: Daily, # Man 00 30 tab, 0 Refill(s) Deconex DMX 2021-06 Yes PO, Q4H, Me moria 0-13 PRN as l 04:06: needed for Man 00 cough and congestion , 0 Refill(s) amLODIPine 2021-06 Yes 5 mg = 1 Mem oria 5 mg oral 0-13 tab, PO, l tablet 04:06: Daily, # [place] 00 30 tab, 0 Refill(s) Deconex DMX 2021-06 Yes PO, Q4H, Me moria 0-13 PRN as l 04:06: needed for Man 00 cough and congestion , 0 Refill(s) amLODIPine 2021-06 Yes 5 mg = 1 Mem oria 5 mg oral 0-13 tab, PO, l tablet 04:06: Daily, # [place] 00 30 tab, 0 Refill(s) Deconex DMX 2021-06 Yes PO, Q4H, Me moria 0-13 PRN as l 04:06: needed for [place] 00 cough and congestion , 0 Refill(s) famotidine 2021-06 Yes 20 mg = 1 Me moria 20 mg oral 0-13 tab, PO, l tablet 04:05: BID, # 60 Michael n 00 tab, 0 Refill(s) famotidine 2021-06 Yes 20 mg = 1 Me moria 20 mg oral 0-13 tab, PO, l tablet 04:05: BID, # 60 Michael n 00 tab, 0 Refill(s) famotidine 2021-06 Yes 20 mg = 1 Me moria 20 mg oral 0-13 tab, PO, l tablet 04:05: BID, # 60 Michael n 00 tab, 0 Refill(s) famotidine 2021-06 Yes 20 mg = 1 Me moria 20 mg oral 0-13 tab, PO, l tablet 04:05: BID, # 60 Michael n 00 tab, 0 Refill(s) famotidine 2022-1 Yes 20 mg = 1 Me moria 20 mg oral 0-13 tab, PO, l tablet 04:05: BID, # 60 Michael n 00 tab, 0 Refill(s) montelukast 2021-06 Yes 10 mg = 1 M emoria 10 mg oral 0-13 tab, PO, l tablet 04:04: Bedtime, # Cathleen nn 00 30 tab, 0 Refill(s) montelukast 2021-06 Yes 10 mg = 1 M emoria 10 mg oral 0-13 tab, PO, l tablet 04:04: Bedtime, # Cathleen nn 00 30 tab, 0 Refill(s) montelukast 2021-06 Yes 10 mg = 1 M emoria 10 mg oral 0-13 tab, PO, l tablet 04:04: Bedtime, # Cathleen nn 00 30 tab, 0 Refill(s) montelukast 2021-06 Yes 10 mg = 1 M emoria 10 mg oral 0-13 tab, PO, l tablet 04:04: Bedtime, # Cathleen nn 00 30 tab, 0 Refill(s) montelukast 2021-06 Yes 10 mg = 1 M emoria 10 mg oral 0-13 tab, PO, l tablet 04:04: Bedtime, # Cathleen nn 00 30 tab, 0 Refill(s) hydrochloro 2021-06 Yes 12.5 mg, Me moria thiazide 0-13 PO, Daily, l 04:03: 0 Man 00 Refill(s) hydrochloro 2021-06 Yes 12.5 mg, Me moria thiazide 0-13 PO, Daily, l 04:03: 0 Man 00 Refill(s) hydrochloro 2021-06 Yes 12.5 mg, Me moria thiazide 0-13 PO, Daily, l 04:03: 0 [place] 00 Refill(s) hydrochloro 2021-06 Yes 12.5 mg, Me moria thiazide 0-13 PO, Daily, l 04:03: 0 [place] 00 Refill(s) hydrochloro 2021-06 Yes 12.5 mg, Me moria thiazide 0-13 PO, Daily, l 04:03: 0 [place] 00 Refill(s) ZyrTEC 10 2021-06 Yes 10 mg = 1 Mem oria mg oral 0-13 tab, PO, l tablet 04:00: Daily, PRN Cathleen nn 00 for allergy symptoms, # 30 tab, 1 Refill(s) ZyrTEC 10 2021-06 Yes 10 mg = 1 Mem oria mg oral 0-13 tab, PO, l tablet 04:00: Daily, PRN Cathleen nn 00 for allergy symptoms, # 30 tab, 1 Refill(s) ZyrTEC 10 2021-06 Yes 10 mg = 1 Mem oria mg oral 0-13 tab, PO, l tablet 04:00: Daily, PRN Cathleen nn 00 for allergy symptoms, # 30 tab, 1 Refill(s) ZyrTEC 10 2021-06 Yes 10 mg = 1 Mem oria mg oral 0-13 tab, PO, l tablet 04:00: Daily, PRN Cathleen nn 00 for allergy symptoms, # 30 tab, 1 Refill(s) ZyrTEC 10 2021-06 Yes 10 mg = 1 Mem oria mg oral 0-13 tab, PO, l tablet 04:00: Daily, PRN Cathleen nn 00 for allergy symptoms, # 30 tab, 1 Refill(s) sucralfate 2021-06 Yes 1 gm = 1 Mem oria 1 g oral 0-13 tab, PO, l tablet 03:59: QID, # 120 Cathleen nn 00 tab, 0 Refill(s) sucralfate 2021-06 Yes 1 gm = 1 Mem oria 1 g oral 0-13 tab, PO, l tablet 03:59: QID, # 120 Cathleen nn 00 tab, 0 Refill(s) sucralfate 2021-06 Yes 1 gm = 1 Mem oria 1 g oral 0-13 tab, PO, l tablet 03:59: QID, # 120 Cathleen nn 00 tab, 0 Refill(s) sucralfate 2021-06 Yes 1 gm = 1 Mem oria 1 g oral 0-13 tab, PO, l tablet 03:59: QID, # 120 Cathleen nn 00 tab, 0 Refill(s) sucralfate 2021-06 Yes 1 gm = 1 Mem oria 1 g oral 0-13 tab, PO, l tablet 03:59: QID, # 120 Cathleen nn 00 tab, 0 Refill(s) Dextrose 2022-1 Yes 12.5 gm, Memor ia 50% Syringe 0-13 25 mL, l (D50W) 03:18: Route: [place] 00 IVP, Drug Form: INJ, kg, PRN, PRN Blood Glucose Results, Start date: 04/10/22 22:18:00 CDT, Duration: 30 day, Stop date: 05/10/22 21:17:00 [employer]IATE, 0 glucagon 2021-06 Yes 1 mg, Memoria 0-13 Route: IM, l 03:18: Drug form: Man 00 PDR/INJ, PRN, kg, PRN Blood Glucose Results, Start date: 04/10/22 22:18:00 CDT, Duration: 30 day, Stop date: 05/10/22 21:17:00 [employer]IATE, 0 ondansetron 2021-06 Yes Notes: [facility] alivia 0-13 (Same as: l 03:18: Zofran) Man MEDICATION WASTE Product Size: 4 mg Product Wasted: ___ mg melatonin 2021-06 Yes Notes: Memori a 0-13 (Same as: l 03:18: Melatonin) acetaminoph 2021-06 Yes Notes: Do M emoria en 0-13 not exceed l 03:18: 4 gm/day. (Same as: Tylenol) Dextrose 2021-06 Yes 12.5 gm, Memor ia 50% Syringe 0-13 25 mL, l (D50W) 03:18: Route: [place] IVP, Drug Form: INJ, kg, PRN, PRN Blood Glucose Results, Start date: 04/10/22 22:18:00 CDT, Duration: 30 day, Stop date: 05/10/22 21:17:00 [employer]IATE, 0 glucagon 2021-06 Yes 1 mg, Memoria 0-13 Route: IM, l 03:18: Drug form: [place] 00 PDR/INJ, PRN, kg, PRN Blood Glucose Results, Start date: 04/10/22 22:18:00 CDT, Duration: 30 day, Stop date: 05/10/22 21:17:00 [employer]IATE, 0 ondansetron 2021-06 Yes Notes: [facility] alivia 0-13 (Same as: l 03:18: Zofran) Man MEDICATION WASTE Product Size: 4 mg Product Wasted: ___ mg melatonin 2021-06 Yes Notes: Memori a 0-13 (Same as: l 03:18: Melatonin) acetaminoph 2021-06 Yes Notes: Do M emoria en 0-13 not exceed l 03:18: 4 gm/day. (Same as: Tylenol) Dextrose 2021-06 Yes 12.5 gm, Memor ia 50% Syringe 0-13 25 mL, l (D50W) 03:18: Route: [place] 00 IVP, Drug Form: INJ, kg, PRN, PRN Blood Glucose Results, Start date: 04/10/22 22:18:00 CDT, Duration: 30 day, Stop date: 05/10/22 21:17:00 [employer]IATE, 0 glucagon 2021-06 Yes 1 mg, Memoria 0-13 Route: IM, l 03:18: Drug form: Man PDR/INJ, PRN, kg, PRN Blood Glucose Results, Start date: 04/10/22 22:18:00 CDT, Duration: 30 day, Stop date: 05/10/22 21:17:00 [employer]IATE, 0 ondansetron 2021-06 Yes Notes: [facility] alivia 0-13 (Same as: l 03:18: Zofran) MEDICATION WASTE Product Size: 4 mg Product Wasted: ___ mg melatonin 2021-06 Yes Notes: Memori a 0-13 (Same as: l 03:18: Melatonin) acetaminoph 2021-06 Yes Notes: Do M emoria en 0-13 not exceed l 03:18: 4 gm/day. (Same as: Tylenol) Dextrose 2021-06 Yes 12.5 gm, Memor ia 50% Syringe 0-13 25 mL, l (D50W) 03:18: Route: Man 00 IVP, Drug Form: INJ, kg, PRN, PRN Blood Glucose Results, Start date: 04/10/22 22:18:00 CDT, Duration: 30 day, Stop date: 05/10/22 21:17:00 [employer]IATE, 0 glucagon 2021-06 Yes 1 mg, Memoria 0-13 Route: IM, l 03:18: Drug form: Man 00 PDR/INJ, PRN, kg, PRN Blood Glucose Results, Start date: 04/10/22 22:18:00 CDT, Duration: 30 day, Stop date: 05/10/22 21:17:00 [employer] ASS[employer]IATE, 0 ondansetron 2021-06 Yes Notes: [facility] alivia 0-13 (Same as: l 03:18: Zofran) MEDICATION WASTE Product Size: 4 mg Product Wasted: ___ mg melatonin 2021-06 Yes Notes: Memori a 0-13 (Same as: l 03:18: Melatonin) acetaminoph 2021-06 Yes Notes: Do M emoria en 0-13 not exceed l 03:18: 4 gm/day. [place] 00 (Same as: Tylenol) Dextrose 2021-06 Yes 12.5 gm, Memor ia 50% Syringe 0-13 25 mL, l (D50W) 03:18: Route: IVP, Drug Form: INJ, kg, PRN, PRN Blood Glucose Results, Start date: 04/10/22 22:18:00 CDT, Duration: 30 day, Stop date: 05/10/22 21:17:00 [employer] ASS[employer]IATE, 0 glucagon 2021-06 Yes 1 mg, Memoria 0-13 Route: IM, l 03:18: Drug form: [place] 00 PDR/INJ, PRN, kg, PRN Blood Glucose Results, Start date: 04/10/22 22:18:00 CDT, Duration: 30 day, Stop date: 05/10/22 21:17:00 [employer] ASSOCIATE, 0 ondansetron 2021-06 Yes Notes: [facility] alivia 0-13 (Same as: l 03:18: Zofran) MEDICATION WASTE Product Size: 4 mg Product Wasted: ___ mg melatonin 2021-06 Yes Notes: Memori a 0-13 (Same as: l 03:18: Melatonin) acetaminoph 2021-06 Yes Notes: Do M emoria en 0-13 not exceed l 03:18: 4 gm/day. Man (Same as: Tylenol) benzonatate Yes [id number] 100mg Take 1 [facility] 100 mg 7-26 capsule by ity of capsule 00:00: mouth 3 [place] 00 (three) Medical times Branch daily as needed for Cough. benzonatate Yes [id number] 100mg Take 1 [facility] 100 mg 7-26 capsule by ity of capsule 00:00: mouth 3 [place] 00 (three) Medical times Branch daily as needed for Cough. benzonatate 2021- No [id number] 100mg Take 1 [facility] 100 mg 7-26 12-06 capsule by ity of capsule 00:00: 00:00 mouth 3 [place] 00 :00 (three) Medical times Branch daily as needed for Cough. amlodipine Yes Take 1 [facility] rs besylate 7-14 TAB-CAP/M2 ity o f (AMLODIPINE 23:40: by mouth [place] ORAL) 04 daily. Medical Branch HYDROCHLORO Yes Take 1 [facility] ers THIAZIDE 7-14 TAB-CAP/M2 ity o f ORAL 23:40: by mouth [place] 04 daily. Medical Branch amlodipine Yes Take 1 [facility] rs besylate 7-14 TAB-CAP/M2 ity o f (AMLODIPINE 23:40: by mouth [place] ORAL) 04 daily. Medical Branch HYDROCHLORO Yes Take 1 [facility] ers THIAZIDE 7-14 TAB-CAP/M2 ity o f ORAL 23:40: by mouth [place] 04 daily. Medical Branch traMADOL 50 Yes 50mg Take 50 mg [facility] mg tablet 7-13 by mouth ity of 11:49: every 8 [place] 33 (eight) Medical hours as Branch needed. LISINOPRIL Yes 1{tbl} Take 1 [facility] vers ORAL 7-13 tablet by ity of 11:49: mouth [place] 33 daily. Medical Branch IBUPROFEN/D Yes 1{tbl} Take 1 Un maulik IPHENHYDRAM 7-13 tablet by ity of INE CIT 11:49: mouth as [place] (ADVIL PM 33 needed. Medical ORAL) Branch amlodipine Yes Take 1 Unive rs besylate 7-13 TAB-CAP/M2 ity o f (AMLODIPINE 11:49: by mouth [place] ORAL) 33 daily. Medical Branch HYDROCHLORO Yes Take 1 [facility] ers THIAZIDE 7-13 TAB-CAP/M2 ity o f ORAL 11:49: by mouth [place] 33 daily. Medical Branch traMADOL 50 Yes 50mg Take 50 mg [facility] mg tablet 7-13 by mouth ity of 11:49: every 8 [place] 33 (eight) Medical hours as Branch needed. LISINOPRIL Yes 1{tbl} Take 1 [facility] vers ORAL 7-13 tablet by ity of 11:49: mouth [place] 33 daily. Medical Branch IBUPROFEN/D Yes 1{tbl} Take 1 Un maulik IPHENHYDRAM 7-13 tablet by ity of INE CIT 11:49: mouth as [place] (ADVIL PM 33 needed. Medical ORAL) Branch amlodipine Yes Take 1 Unive rs besylate 7-13 TAB-CAP/M2 ity o f (AMLODIPINE 11:49: by mouth [place] ORAL) 33 daily. Medical Branch HYDROCHLORO Yes Take 1 [facility] ers THIAZIDE 7-13 TAB-CAP/M2 ity o f ORAL 11:49: by mouth [place] 33 daily. Medical Branch traMADOL 50 Yes 50mg Take 50 mg [facility] mg tablet 7-13 by mouth ity of 11:49: every 8 [place] 33 (eight) Medical hours as Branch needed. LISINOPRIL Yes 1{tbl} Take 1 [facility] vers ORAL 7-13 tablet by ity of 11:49: mouth [place] 33 daily. Medical Branch IBUPROFEN/D Yes 1{tbl} Take 1 Un maulik IPHENHYDRAM 7-13 tablet by ity of INE CIT 11:49: mouth as [place] (ADVIL PM 33 needed. Medical ORAL) Branch traMADOL 50 Yes 50mg Take 50 mg [facility] mg tablet 7-13 by mouth ity of 11:49: every 8 [place] 33 (eight) Medical hours as Branch needed. LISINOPRIL Yes 1{tbl} Take 1 [facility] vers ORAL 7-13 tablet by ity of 11:49: mouth [place] 33 daily. Medical Branch IBUPROFEN/D Yes 1{tbl} Take 1 Un ma[facility] IPHENHYDRAM 7-13 tablet by ity of INE CIT 11:49: mouth as [place] (ADVIL PM 33 needed. Medical ORAL) Branch amlodipine Yes Take 1 Un[facility] rs besylate 7-11 TAB-CAP/M2 ity o f (AMLODIPINE 13:13: by mouth [place] ORAL) 44 daily. Medical Branch HYDROCHLORO Yes Take 1 [facility] ers THIAZIDE 7-11 TAB-CAP/M2 ity o f ORAL 13:13: by mouth [place] 44 daily. Medical Branch traMADOL 50 Yes 50mg Take 50 mg [facility] mg tablet 7-11 by mouth ity of 13:11: every 8 [place] 00 (eight) Medical hours as Branch needed. LISINOPRIL Yes 1{tbl} Take 1 [facility] vers ORAL 7-11 tablet by ity of 13:11: mouth [place] 00 daily. Medical Branch IBUPROFEN/D Yes 1{tbl} Take 1 Un maul[facility] IPHENHYDRAM 7-11 tablet by ity of INE CIT 13:11: mouth as [place] (ADVIL PM 00 needed. Medical ORAL) Branch erythromyci 2020-06- No [id number] .[id number][in_u Place 0.5 [facility] n 5 mg/gram 07-18 1204 s] Inches in it y of (0.5 %) 00:00: 05:59 [place] [facility] 00 :00 4 (four) Medic al ointment times Branch daily for 14 days. erythromyci 2020-06- No [id number] .[id number][in_u Place 0.5 Univers n 5 mg/gram 07-18 12-04 s] Inches in it y of (0.5 %) 00:00: 05:59 [place] 00 :00 4 (four) Medic al ointment times Branch daily for 14 days. LISINOPRIL Yes 1{tbl} Take 1 Uni vers ORAL 9-26 tablet by ity of 11:28: mouth [place] 44 daily. Medical Branch IBUPROFEN/D Yes 1{tbl} Take 1 Un maulik IPHENHYDRAM 9-26 tablet by ity of INE CIT 11:28: mouth as [place] (ADVIL PM 44 needed. Medical ORAL) Branch LISINOPRIL Yes 1{tbl} Take 1 Uni vers ORAL 9-26 tablet by ity of 11:28: mouth [place] 44 daily. Medical Branch IBUPROFEN/D Yes 1{tbl} Take 1 Un [facility] IPHENHYDRAM 9-26 tablet by ity of INE CIT 11:28: mouth as [place] (ADVIL PM 44 needed. Medical ORAL) Branch traMADOL 50 2017-0 Yes 50mg Take 50 mg [facility] mg tablet 1-10 by mouth ity of 12:44: every 8 [place] 18 (eight) Medical hours as Branch needed. traMADOL 50 0 Yes 50mg Take 50 mg [facility] mg tablet 1-10 by mouth ity of 12:44: every 8 [place] 18 (eight) Medical hours as Branch needed. HYDROcodone 2016-06 Yes 1{tbl} Take 1 Un maul[facility] -acetaminop 2-17 tablet by ity of hen 5-325 00:00: mouth [place] mg tablet 00 every 6 Medical (six) Branch hours as needed for Pain (scale 7-10). HYDROcodone 2016-06 Yes 1{tbl} Take 1 Un [facility] -acetaminop 2-17 tablet by ity of hen 5-325 00:00: mouth [place] mg tablet 00 every 6 Medical (six) Branch hours as needed for Pain (scale 7-10). HYDROcodone 2016-06 Yes 1{tbl} Take 1 Un [facility] -acetaminop 2-17 tablet by ity of hen 5-325 00:00: mouth [place] mg tablet 00 every 6 Medical (six) Branch hours as needed for Pain (scale 7-10). HYDROcodone 2016-06 Yes 1{tbl} Take 1 Un [facility] -acetaminop 2-17 tablet by ity of hen 5-325 00:00: mouth [place] mg tablet 00 every 6 Medical (six) Branch hours as needed for Pain (scale 7-10). HYDROcodone 2016-06 Yes 1{tbl} Take 1 Un [facility] -acetaminop 2-17 tablet by ity of hen 5-325 00:00: mouth [place] mg tablet 00 every 6 Medical (six) Branch hours as needed for Pain (scale 7-10). HYDROcodone 2016-06 Yes 1{tbl} Take 1 Un [facility] -acetaminop 2-17 tablet by ity of hen 5-325 00:00: mouth [place] mg tablet 00 every 6 Medical (six) Branch hours as needed for Pain (scale 7-10). HYDROcodone 2016-06 Yes 1{tbl} Take 1 Un [facility]ik -acetaminop 2-17 tablet by ity of hen 5-325 00:00: mouth [place] mg tablet 00 every 6 Medical (six) Branch hours as needed for Pain (scale 7-10). HYDROcodone 2016-06- No 1{tbl} Take 1 U nivers -acetaminop 2-17 12- tablet by it y of hen 5-325 00:00: 00:00 mouth [place] mg tablet 00 :00 every 6 Medical (six) Branch hours as needed for Pain (scale 7-10). traMADOL 50 2016-06 Yes 50mg Take 1 Univ ers mg tablet 2-16 tablet by ity o f 00:00: mouth [place] 00 every 6 Medical (six) Branch hours as needed for Pain (scale 4-6). docusate 2016-06 Yes 100mg Take 1 Univer s 100 mg 2-16 capsule by ity of capsule 00:00: mouth [place] 00 daily. Medical Branch traMADOL 50 2016-06 Yes 50mg Take 1 Univ ers mg tablet 2-16 tablet by ity o f 00:00: mouth [place] 00 every 6 Medical (six) Branch hours as needed for Pain (scale 4-6). docusate 2016-06 Yes 100mg Take 1 Univer s 100 mg 2-16 capsule by ity of capsule 00:00: mouth [place] 00 daily. Medical Branch traMADOL 50 2016-06 Yes 50mg Take 1 Univ ers mg tablet 2-16 tablet by ity o f 00:00: mouth [place] 00 every 6 Medical (six) Branch hours as needed for Pain (scale 4-6). docusate 2016-06 Yes 100mg Take 1 Univer s 100 mg 2-16 capsule by ity of capsule 00:00: mouth [place] 00 daily. Medical Branch traMADOL 50 2016-06 Yes 50mg Take 1 Univ ers mg tablet 2-16 tablet by ity o f 00:00: mouth [place] 00 every 6 Medical (six) Branch hours as needed for Pain (scale 4-6). docusate 2016-06 Yes 100mg Take 1 Univer s 100 mg 2-16 capsule by ity of capsule 00:00: mouth [place] 00 daily. Medical Branch traMADOL 50 2016-06 Yes 50mg Take 1 Univ ers mg tablet 2-16 tablet by ity o f 00:00: mouth [place] 00 every 6 Medical (six) Branch hours as needed for Pain (scale 4-6). docusate 2016-06 Yes 100mg Take 1 Univer s 100 mg 2-16 capsule by ity of capsule 00:00: mouth [place] 00 daily. Medical Branch traMADOL 50 2016-06 Yes 50mg Take 1 Univ ers mg tablet 2-16 tablet by ity o f 00:00: mouth [place] 00 every 6 Medical (six) Branch hours as needed for Pain (scale 4-6). docusate 2016-06 Yes 100mg Take 1 Univer s 100 mg 2-16 capsule by ity of capsule 00:00: mouth [place] 00 daily. Medical Branch traMADOL 50 2016-06 Yes 50mg Take 1 Univ ers mg tablet 2-16 tablet by ity o f 00:00: mouth [place] 00 every 6 Medical (six) Branch hours [facility]6). [facility] Take 1 Univer s 100 mg 2-16 capsule by ity of capsule 00:00: mouth [place] 00 daily. Medical Branch docusate 2016-06 Yes 100mg Take 1 Univer s 100 mg 2-16 capsule by ity of capsule 00:00: mouth [place] 00 daily. Medical Branch docusate 2016-06 Yes 100mg Take 1 Univer s 100 mg 2-16 capsule by ity of capsule 00:00: mouth [place] 00 daily. Medical Branch traMADOL 50 2016-06- No 50mg Take 1 Uni vers mg tablet 2-16 12-06 tablet by ity of 00:00: 00:00 mouth [place] 00 :00 every 6 Medical (six) Branch hours as needed for Pain (scale 4-6). acetaminoph acetaminoph No acetaminop [place] 300 en 300 hen 300 da mg-codeine mg-codeine mg-codeine [facility] 30 mg 30 mg 30 mg al tablet TAKE tablet TAKE tablet Health 1 TABLET BY 1 TABLET BY TAKE 1 [facility] MOUTH EVERY MOUTH EVERY TABLET BY h 4 HOURS 4 HOURS MOUTH Pr ogram NEEDED FOR NEEDED FOR EVERY 4 PAIN PAIN HOURS NEEDED FOR PAIN albuterol albuterol No albuterol [place] HFA sulfate HFA sulfate da 90 90 HFA 90 [facility] mcg/actuati mcg/actuati mcg/actuat al on aerosol on aerosol ion Hea lth inhaler inhaler aerosol Outrea c inhaler h Program amlodipine amlodipine No amlodipine [place] 5 mg tablet 5 mg tablet 5 mg d a TAKE 1 TAKE 1 tablet [facility] TABLET BY TABLET BY TAKE 1 al MOUTH ONCE MOUTH ONCE TABLET BY Health DAILY DAILY MOUTH ONCE [facility] DAILY h Program atorvastati atorvastati No atorvastat [place] n 20 mg n 20 mg in 20 mg da tablet TAKE tablet TAKE tablet [facility] 1 TABLET BY 1 TABLET BY TAKE 1 al MOUTH ONCE MOUTH ONCE TABLET BY Health DAILY AT DAILY AT MOUTH ONCE O [facility] BEDTIME BEDTIME DAILY AT h BEDTIME Program benzonatate benzonatate No benzonatat [place] 100 mg 100 mg e 100 mg da capsule capsule capsule [facility] p TAKE ONE TAKE ONE TAKE ONE al (1) (1) (1) Health CAPSULE(S) CAPSULE(S) CAPSULE(S) [facility] BY MOUTH 3 BY MOUTH 3 BY MOUTH 3 h TIMES A DAY TIMES A DAY TIMES A Program NEEDED NEEDED DAY FOR COUGH. FOR COUGH. NEEDED FOR COUGH. dicyclomine dicyclomine No dicyclomin [place] 20 mg 20 mg e 20 mg da tablet TAKE tablet TAKE tablet [facility] 1 TABLET BY 1 TABLET BY TAKE 1 al MOUTH 4 MOUTH 4 TABLET BY Heal th TIMES DAILY TIMES DAILY MOUTH 4 [facility] NEEDED NEEDED TIMES h DAILY Program NEEDED famotidine famotidine No famotidine [place] 20 mg 20 mg 20 mg da tablet TAKE tablet TAKE tablet [facility] 1 TABLET BY 1 TABLET BY TAKE 1 al MOUTH EVERY MOUTH EVERY TABLET BY Health 12 HOURS 12 HOURS MOUTH [facility] FOR 14 DAYS FOR 14 DAYS EVERY 12 h HOURS FOR Program 14 DAYS hydrochloro hydrochloro No hydrochlor [place] thiazide thiazide othiazide da 12.5 mg 12.5 mg 12.5 mg [facility] p tablet TAKE tablet TAKE tablet al 1 TABLET BY 1 TABLET BY TAKE 1 Health MOUTH ONCE MOUTH ONCE TABLET BY [facility] DAILY DAILY MOUTH ONCE h DAILY Program InnoSpire InnoSpire No InnoSpire [place] Essence Essence Essence da device USE device USE device USE [facility] DIRECTED DIRECTED a l DIRECTED Health Outre[facility] h Program Mucinex Mucinex No 1 Q12H Mucinex [place] r 1,200 mg 1,200 mg 1,200 mg da tablet, tablet, tablet, [facility] extended extended extended al release release release Health Take 1 Take 1 Take 1 [facility] tablet tablet tablet h every 12 every 12 every 12 Pro gram hours by hours by hours by oral route oral route oral route as needed. as needed. as needed. nystatin nystatin No 5mL QID nystatin [place] 100,000 100,000 100,000 da unit/mL unit/mL unit/mL [facility] oral oral oral al suspension suspension suspension Health Take 5 mL 4 Take 5 mL 4 Take 5 mL [facility] times a day times a day 4 times a h by oral by oral day by Program route as route as oral route directed directed as for 7 days. for 7 days. directed for 7 days. pantoprazol pantoprazol No pantoprazo [place] 40 mg e 40 mg le 40 mg da tablet,luiza tablet,luiza tablet,del [facility] yed release yed release ayed a l TAKE 1 TAKE 1 release Health TABLET BY TABLET BY TAKE 1 Out reac MOUTH ONCE MOUTH ONCE TABLET BY h DAILY FOR 8 DAILY FOR 8 MOUTH ONCE Program WEEKS WEEKS DAILY FOR 8 WEEKS promethazin promethazin No 5mL promethazi [place]-DM 6.25 e-DM 6.25 ne-DM 6.25 da mg-15 mg/5 mg-15 mg/5 mg-15 mg/5 [facility] mL oral mL oral mL oral al syrup Take syrup Take syrup Take Health 5 mL as 5 mL as 5 mL as [facility] needed by needed by needed by h oral route oral route oral route Program at bedtime. at bedtime. at bedtime. acetaminoph acetaminoph No acetaminop [place] 300 en 300 hen 300 da mg-codeine mg-codeine mg-codeine [facility] 30 mg 30 mg 30 mg al tablet TAKE tablet TAKE tablet Health 1 TABLET BY 1 TABLET BY TAKE 1 [facility] MOUTH EVERY MOUTH EVERY TABLET BY h 4 HOURS 4 HOURS MOUTH Pr ogram NEEDED FOR NEEDED FOR EVERY 4 PAIN PAIN HOURS NEEDED FOR PAIN albuterol albuterol No albuterol [place] HFA sulfate HFA sulfate da 90 90 HFA 90 [facility] mcg/actuati mcg/actuati mcg/actuat al on aerosol on aerosol ion Hea lth inhaler inhaler aerosol [facility] inhaler h Program allopurinol allopurinol No allopurino [place] 300 mg 300 mg l 300 mg da tablet TAKE tablet TAKE tablet [facility] 1 TABLET BY 1 TABLET BY TAKE 1 al MOUTH ONCE MOUTH ONCE TABLET BY Health DAILY FOR DAILY FOR MOUTH ONCE [facility] 30 DAYS 30 DAYS DAILY FOR h 30 DAYS Program amlodipine amlodipine No amlodipine [place] 5 mg tablet 5 mg tablet 5 mg d a TAKE 1 TAKE 1 tablet [facility] TABLET BY TABLET BY TAKE 1 al MOUTH ONCE MOUTH ONCE TABLET BY Health DAILY DAILY MOUTH ONCE [facility] DAILY h Program atorvastati atorvastati No atorvastat [place] n 20 mg n 20 mg in 20 mg da tablet TAKE tablet TAKE tablet [facility] 1 TABLET BY 1 TABLET BY TAKE 1 al MOUTH ONCE MOUTH ONCE TABLET BY Health DAILY AT DAILY AT MOUTH ONCE O [facility] BEDTIME BEDTIME DAILY AT h BEDTIME Program benzonatate benzonatate No benzonatat [place] 100 mg 100 mg e 100 mg da capsule capsule capsule [facility] TAKE ONE TAKE ONE TAKE ONE al 1-2 1-2 1-2 Health CAPSULE(S) CAPSULE(S) CAPSULE(S) [facility] BY MOUTH BY MOUTH BY MOUTH h EVERY EIGHT EVERY EIGHT EVERY Program HOURS HOURS EIGHT NEEDED FOR NEEDED FOR HOURS COUGH COUGH NEEDED FOR during the during the COUGH day. day. during the day. dicyclomine dicyclomine No dicyclomin [place] 20 mg 20 mg e 20 mg da tablet TAKE tablet TAKE tablet [facility] 1 TABLET BY 1 TABLET BY TAKE 1 al MOUTH 4 MOUTH 4 TABLET BY Heal th TIMES DAILY TIMES DAILY MOUTH 4 [facility] NEEDED NEEDED TIMES h DAILY Program NEEDED famotidine famotidine No famotidine [place] 20 mg 20 mg 20 mg da tablet TAKE tablet TAKE tablet [facility] 1 TABLET BY 1 TABLET BY TAKE 1 al MOUTH EVERY MOUTH EVERY TABLET BY Health 12 HOURS 12 HOURS MOUTH [facility] FOR 14 DAYS FOR 14 DAYS EVERY 12 h HOURS FOR Program 14 DAYS hydrochloro hydrochloro No hydrochlor [place] thiazide thiazide othiazide da 12.5 mg 12.5 mg 12.5 mg [facility] tablet TAKE tablet TAKE tablet al 1 TABLET BY 1 TABLET BY TAKE 1 Health MOUTH ONCE MOUTH ONCE TABLET BY [facility] DAILY DAILY MOUTH ONCE h DAILY Program InnoSpire InnoSpire No InnoSpire [place] Essence Essence Essence da device USE device USE device USE [facility] DIRECTED DIRECTED a l DIRECTED Health Outreac h Program Mucinex Mucinex No 1 Q12H Mucinex [place] [facility] 1,200 mg 1,200 mg 1,200 mg da tablet, tablet, tablet, [facility] extended extended extended al release release release Health Take 1 Take 1 Take 1 [facility] tablet tablet tablet h every 12 every 12 every 12 Pro gram hours by hours by hours by oral route oral route oral route as needed. as needed. as needed. nystatin nystatin No 5mL QID nystatin [place] 100,000 100,000 100,000 da unit/mL unit/mL unit/mL [facility] oral oral oral al suspension suspension suspension Health Take 5 mL 4 Take 5 mL 4 Take 5 mL [facility] times a day times a day 4 times a h by oral by oral day by Program route as route as oral route directed directed as for 7 days. for 7 days. directed for 7 days. pantoprazol pantoprazol No pantoprazo [place] 40 mg e 40 mg le 40 mg da tablet,luiza tablet,luiza tablet,del [facility] yed release yed release ayed a l TAKE 1 TAKE 1 release Health TABLET BY TABLET BY TAKE 1 Out reac MOUTH ONCE MOUTH ONCE TABLET BY h DAILY FOR 8 DAILY FOR 8 MOUTH ONCE Program WEEKS WEEKS DAILY FOR 8 WEEKS promethazin promethazin No 5mL promethazi [place]-DM 6.25 e-DM 6.25 ne-DM 6.25 da mg-15 mg/5 mg-15 mg/5 mg-15 mg/5 [facility] mL oral mL oral mL oral al syrup Take syrup Take syrup Take Health 5 mL as 5 mL as 5 mL as [facility] needed by needed by needed by h oral route oral route oral route Program at bedtime. at bedtime. at bedtime. Immunizations Ordered Filled Immunization Date Status Comments [facility] e Immunization Name Name Tdap Tdap 2020-05-18 Completed [place] 09:21:00 [facility] Tdap Tdap 2020-05-18 Completed [place] 09:21:00 [facility] TDAP 2016-01-02 Completed [facility] 00:00:00 [facility] TDAP 2016-01-02 Completed [facility] 00[facility]00:00 [facility] TDAP 2016-01-02 Completed [facility] 00[facility]00:00 [facility] TDAP 2016-01-02 Completed [facility] 00:00:00 [facility] TDAP 2016-01-02 Completed [facility] 00:00:00 [facility] TDAP 2016-01-02 Completed [facility] 00:00:00 [facility] TDAP 2016-01-02 Completed [facility] 00:00:00 [facility] TDAP 2016-01-02 Completed [facility] 00:00:00 [facility] TDAP 2016-01-02 Completed [facility] 00:00:00 [facility] Vital Signs Vital Name Observation Time Observation Value Comments Source Systolic blood 2022-06-04 22:00:00 127 mm[Hg] Univer sity of pressure [facility] Diastolic blood 2022-06-04 22:00:00 70 mm[Hg] Unive rsity of pressure [facility] Heart rate 2022-06-04 22:00:00 75 /min [facility] Respiratory rate 2022-06-04 22:00:00 17 /min [facility] Oxygen saturation in 2022-06-04 22:00:00 97 /min [facility] Arterial blood by [facility] Pulse oximetry Branch Body temperature 2022-06-04 21:26:00 36.67 [place] [facility] Body weight 2022-06-04 16:37:00 76.204 kg [facility] BMI 2022-06-04 16:37:00 28.84 kg/m2 [facility] BP Diastolic 2022-05-20 00:00:00 67 mm[Hg] [place] [facility] Height 2022-05-20 00:00:00 63 [in_i] [place] [facility] BMI (Body Mass 2022-05-20 00:00:00 28.5 kg/m2 [place]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) [facility] BP Systolic 2022-05-20 00:00:00 119 mm[Hg] [place] [facility] Body Weight 2022-05-20 00:00:00 2578 [oz_av] [place] [facility] Height 2022-04-10 11:53:00 165.1 CM Weight 2022-04-10 11:53:00 72.57 KG BP Diastolic 2022-03-14 00:00:00 84 mm[Hg] [place] [facility] Height 2022-03-14 00:00:00 63 [in_i] [place] [facility] BMI (Body Mass 2022-03-14 00:00:00 29.8 kg/m2 [facility]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) [facility] BP Systolic 2022-03-14 00:00:00 131 mm[Hg] [place] [facility] Body Weight 2022-03-14 00:00:00 2688 [oz_av] [place] [facility] Height 2022-02-13 14:52:00 162.56 CM Weight 2022-02-13 14:52:00 79.37 KG Systolic blood 2022-01-22 17:15:59 121 mm[Hg] [facility] of [facility] Diastolic blood 2022-01-22 17:15:59 79 mm[Hg] Unive rsity of [facility] Heart rate 2022-01-22 17:15:59 81 /min [facility] Respiratory rate 2022-01-22 17:15:59 18 /min [facility] Oxygen saturation in 2022-01-22 17:15:59 98 /min [facility] Arterial blood by [facility] Pulse oximetry [place] Body temperature 2022-01-22 14:17:00 36.72 [place] [facility] Sy[facility] blood 2022-01-09 16:30:00 135 mm[Hg] Univer sity of [facility] Diastolic blood 2022-01-09 16:30:00 86 mm[Hg] Unive rsity of [facility] Heart rate 2022-01-09 16:30:00 88 /min [facility] Body temperature 2022-01-09 16:30:00 36.28 [place] [facility] Res[facility] rate 2022-01-09 16:30:00 18 /min [facility] Body height 2022-01-09 16:30:00 162.6 cm [facility] Body weight 2022-01-09 16:30:00 77.111 kg [facility] BMI 2022-01-09 16:30:00 29.18 kg/m2 [facility] Oxygen saturation in 2022-01-09 16:30:00 97 /min [facility] Arterial blood by [facility] Pulse oximetry Branch BP Diastolic 2021-12-20 00:00:00 92 mm[Hg] [place] [facility] Height 2021-12-20 00:00:00 63 [in_i] [place] [facility] BMI (Body Mass 2021-12-20 00:00:00 31.2 kg/m2 [place]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) [facility] BP Systolic 2021-12-20 00:00:00 136 mm[Hg] [place] [facility] Body Weight 2021-12-20 00:00:00 2816 [oz_av] [place] [facility] BP Diastolic 2021-09-27 00:00:00 83 mm[Hg] [place] [facility] Height 2021-09-27 00:00:00 63 [in_i] [place] [facility] BMI (Body Mass 2021-09-27 00:00:00 31.9 kg/m2 [place]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) [facility] BP Systolic 2021-09-27 00:00:00 143 mm[Hg] [place] [facility] Body Weight 2021-09-27 00:00:00 180 [lb_av] [place] [facility] BP Diastolic 2021-09-20 00:00:00 75 mm[Hg] [place] [facility] Height 2021-09-20 00:00:00 63 [in_i] [place] [facility] BMI (Body Mass 2021-09-20 00:00:00 32.2 kg/m2 [place]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) [facility] BP Systolic 2021-09-20 00:00:00 125 mm[Hg] [place] [facility] Body Weight 2021-09-20 00:00:00 2912 [oz_av] [place] [facility] BP Diastolic 2021-09-06 00:00:00 87 mm[Hg] [place] [facility] Height 2021-09-06 00:00:00 63 [in_i] [place] [facility] BMI (Body Mass 2021-09-06 00:00:00 32.4 kg/m2 [place]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) [facility] BP Systolic 2021-09-06 00:00:00 140 mm[Hg] [place] [facility] Body Weight 2021-09-06 00:00:00 183 [lb_av] [place] [facility] BP Diastolic 2021-08-09 00:00:00 80 mm[Hg] [place] [facility] Height 2021-08-09 00:00:00 63 [in_i] [place] [facility] BMI (Body Mass 2021-08-09 00:00:00 32.8 kg/m2 [place]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) [facility] BP Systolic 2021-08-09 00:00:00 125 mm[Hg] [place] [facility] Body Weight 2021-08-09 00:00:00 2960 [oz_av] [place] [facility] Height 2021-07-05 00:00:00 63 [in_i] [place] [facility] BMI (Body Mass 2021-07-05 00:00:00 34.2 kg/m2 [place]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) [facility] Body Weight 2021-07-05 00:00:00 3088 [oz_av] [place] [facility] Body weight 2021-05-18 21:33:00 81.647 kg [facility] BMI 2021-05-18 21:33:00 30.90 kg/m2 [facility] Height 2021-03-13 14:25:00 162.56 CM Weight 2021-03-13 14:25:00 81.64 KG Height 2020-07-16 13:58:00 162.56 CM Weight 2020-07-16 13:58:00 79.37 KG BP Diastolic 2020-05-18 00:00:00 84 mm[Hg] [place] [facility] Height 2020-05-18 00:00:00 63 [in_i] [place] [facility] BMI (Body Mass 2020-05-18 00:00:00 34.2 kg/m2 [place]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) [facility] BP Systolic 2020-05-18 00:00:00 132 mm[Hg] [place] [facility] Body Weight 2020-05-18 00:00:00 193.3 [lb_av] [place] [facility] BP Diastolic 2020-05-11 00:00:00 84 mm[Hg] [place] [facility] Height 2020-05-11 00:00:00 63 [in_i] [place] [facility] BMI (Body Mass 2020-05-11 00:00:00 34 kg/m2 [place]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) [facility] BP Systolic 2020-05-11 00:00:00 129 mm[Hg] [place] [facility] Body Weight 2020-05-11 00:00:00 191.8 [lb_av] [place] [facility] Weight 2020-05-01 14:58:00 83.91 KG Height 2020-05-01 14:58:00 162.56 CM Heart Rate 2022-04-24 20:46:49 [facility] [place] Systolic (mm Hg) 2022-04-24 20:46:25 [facility] Diastolic (mm Hg) 2022-04-24 20:46:25 Mem orial [place] Temperature Oral (F) 2022-04-24 20:46:05 98.4 F [facility] [place] Temperature Oral (F) 2022-04-20 09:04:53 97.4 F [facility] Heart Rate 2022-04-15 08:42:11 [facility] Temperature Oral (F) 2022-04-15 08:41:54 98.2 F [facility] Systolic (mm Hg) 2022-04-15 08:41:36 [facility] Diastolic (mm Hg) 2022-04-15 08:41:36 Mem [facility] [place] Heart Rate 2022-04-15 08:41:36 [facility] Heart Rate 2022-04-15 03:56:06 [facility] Systolic (mm Hg) 2022-04-15 03:56:01 [facility] [place] Diastolic (mm Hg) 2022-04-15 03:56:01 Mem orial Man Temperature Oral (F) 2022-04-15 03:55:44 98.4 F [facility] [place] Systolic (mm Hg) 2022-04-15 00:15:48 [facility] Diastolic (mm Hg) 2022-04-15 00:15:48 Mem [facility] [place] Temperature Oral (F) 2022-04-15 00:15:09 98.2 F [facility] [place] Respitory Rate 2022-04-14 21:52:24 Memori [facility] Man Respitory Rate 2022-04-14 16:25:34 [facility] [place] Respitory Rate 2022-04-14 12:59:58 [facility] [place] Height 2022-04-11 03:50:00 5 [ft_i] [facility] Weight 2022-04-11 03:50:00 [facility] BMI Calculated 2022-04-11 03:50:00 [facility] Systolic blood 2022-01-09 16:30:00 135 mm[Hg] Univer sity of pressure [facility] Diastolic blood 2022-01-09 16:30:00 86 mm[Hg] Unive rsity of pressure [facility] Heart rate 2022-01-09 16:30:00 88 /min [facility] Body temperature 2022-01-09 16:30:00 36.28 [place] [facility] Respiratory rate 2022-01-09 16:30:00 18 /min [facility] Body height 2022-01-09 16:30:00 162.6 cm [facility] Body weight 2022-01-09 16:30:00 77.111 kg [facility] BMI 2022-01-09 16:30:00 29.18 kg/m2 [facility] Oxygen saturation in 2022-01-09 16:30:00 97 /min [facility] Arterial blood by [facility] Pulse oximetry Branch Procedures Procedure Date / Time Performing Source Performed Clinician EKG-12 LEAD 2022-06-[address] [facility] of 22:15:[address] [facility] [address] CHEST PULMONARY ANGIOGRAM 2022-06-04 [facility] of 20:01:00 [facility] TROPONIN I 2022-06-[address] [facility] of 16:56:00 [facility] COMP. METABOLIC PANEL ([id number]) 2022-06-[address] [facility] of 16:56:00 [facility] CBC WITH DIFF 2022-06-04 [facility] [facility] of 16:56:00 [facility] PROTHROMBIN TIME / INR 2022-06-04 josue [facility] ity of 16:56:00 [facility] ACTIVATED PARTIAL THRMPLAS CLIARE 2022-06-[address] [facility] of 16:56:00 [facility] GALV ONLY - INFLUENZA A B RSV PCR 2022-06-[address] [facility] of 16:56:00 [facility] N-TERMINAL PRO-BNP 2022-06-[address] [facility] of 16:56:00 [facility] COVID-19 (ID NOW RAPID TESTING) 2022-06-04 Reina Luis Svetlana [facility] of 16:56:00 [facility] CONSENT/REFUSAL FOR DIAGNOSIS AND 2022-06-04 [facility] of TREATMENT 16:38:25 Unassigned, No [facility] REFERRAL- REQUEST/RESPONSE 2022-05-21 [facility] of 06:01:00 Unassigned, No [facility] XR CHEST 1 VW 2022-01-22 [facility] of 15:56:00 [facility] BASIC METABOLIC PANEL (NA, K, CL, 2022-01-22 [facility] of CO2, GLUCOSE, BUN, CREATININE, CA) 15:05:00 [facility] CBC WITH DIFF 2022-01-22 [facility] of 15:05:00 [facility] GALV ONLY - INFLUENZA A B RSV PCR 2022-01-22 [facility] of 15:05:00 [facility] COVID-19 (MOLECULAR TESTING 2022-01-22 [facility] of NUCLEIC ACID AMPLIFICATION) 15:05:00 [facility] LAB ONLY COVID INTERPRETATION 2022-01-22 Sanjay Gómez [facility] of 15:05:00 [facility] CONSENT/REFUSAL FOR DIAGNOSIS AND 2022-01-22 [facility] 14:19:06 Unassigned, No [facility] CONSENT/REFUSAL FOR DIAGNOSIS AND 2022-01-09 [facility] 15:20:54 Unassigned, No [facility] CONSENT/REFUSAL FOR DIAGNOSIS AND 2022-01-09 [facility] 15:20:54 Unassigned, No [facility] CONSENT/REFUSAL FOR DIAGNOSIS AND 2022-01-09 [facility] 15:20:33 Unassigned, No [facility] CONSENT/REFUSAL FOR DIAGNOSIS AND 2022-01-09 [facility] 15:20:33 Unassigned, No [facility] COVID-19 (ID NOW RAPID TESTING) 2022-01-08 Justino Holbrook [place] of 21:18:00 [facility] LAB ONLY COVID INTERPRETATION 2022-01-08 Justino Holbrook [facility] of 21:18:00 [facility] MAMMO, screening, digital, 2021-12-20 [place] bilateral 00:00:00 [facility] unlisted imaging order 2021-09-27 [place] 00:[place]:00 [facility] unlisted imaging order 2021-09-20 [place] 00:00:00 [facility] Esophagogastroduodenoscopy 2021-09-13 [place] 00:00:00 [facility] US, abdomen, complete 2021-09-06 [place] 00:00:00 [facility] US, abdomen 2021-08-09 [place] 00:00:00 [facility] MAMMO, screening, digital, 2021-08-09 [place] bilateral 00:00:00 [facility] unlisted imaging order 2021-08-01 [place] 00:00:00 [facility] CHEST X-RAY 2021-07-27 [place] 00:00:00 [facility] SURGICAL PATHOLOGY EXAM 2021-05-18 Magdiel Omer [facility] of 23:20:00 [facility] SURGICAL PATHOLOGY EXAM 2021-05-18 Michaela Scott [facility] of 23:19:00 [facility] MAMMO, screening, bilateral 2020-05-11 [place] yg 00:00:00 [facility] Delivery [place] [facility] 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 [facility] Appendectomy [facility] Hysterectomy [facility] Plan of Care Planned Activity Planned Date Details Comments Source Diagnostic Test 2022-05-20 urinalysis, [place] Ep iscop[facility] Pending 00:00:00 dipstick [code = Health Outr each urinalysis, Program dipstick] Encounters Start End Encounter Admission Attending Care Care Encounter Source Date/Time Date/Time Type Type Clinicians Facility Department ID 2022-10-18 2022-10-18 Outpatient R JUSTINO HOLBROOK [facility] [id number] [facility] 09:15:00 09:15:00 ity of [facility] 2022-08-15 2022-08-15 Emergency ER Levi, [facility] [id number] [place] 17:38:00 20:13:00 Leonardo -[id number] Formerly [facility], [facility] 2022-08-01 2022-08-01 Telephone Justino Holbrook [facility] 1.2.840.11 [id number] Univers 00:00:00 00:00:00 R Y 350.1.13.10 it y [facility] 4.2.7.2.686 [facility] as BANK [phone] [facility] BLDG. [address] 2022-07-16 2022-07-16 Outpatient Saha_Jamar [facility] 103 [id number] [place] 00:00:00 00:00:00 [id number] [facility] 2022-07-16 2022-07-16 Outpatient Saha_Jamar [facility] 103 [id number] [place] 00:00:00 00:00:00 52709 [facility] 2022-07-16 2022-07-16 Outpatient Saha_Chucka [facility] 103 [id number] [place] 00:00:00 00:00:00 11310 [facility] 2022-07-02 2022-07-02 Outpatient Saha_Chucka [facility] 103 [id number] [place] 00:00:00 00:00:00 [id number] [facility] 2022-06-19 2022-06-19 Outpatient Sylvia BUSBY [facility] [id number] Univers 16:00:00 16:00:00 [facility] 2022-06-17 2022-06-17 Outpatient EL PANT [facility] [id number] [place] 09:53:00 09:53:00 JOANNE, -[id number] zoe toney [facility] 2022-06-04 2022-06-04 Emergency X [facility] ERT [id number] Univers 10:39:00 16:45:00 LUIS [facility] 2022-06-04 2022-06-04 Emergency Kaale, TRAUMA [id number] Univers 10:39:00 16:45:00 [facility] 350.1.13.10 [place] [id number] [facility] [address] 2022-06-03 2022-06-03 Outpatient Saha_Jamar [facility] 103 [id number] [place] 00:00:00 00:00:00 [id number] [facility] 2022-05-21 2022-05-21 Outpatient Saha_Chucka [facility] ME[facility] 103 [id number] [place] 00:00:00 00:00:00 [id number] [facility] 2022-05-21 2022-05-21 Orders Doctor CORY 1.2.840.114 [id number] Univers 00:00:00 00:00:00 Only Unassigned, EMILEE 350.1.13.10 ity of [place] [facility] 4.2.7.2.686 [place] as [id number] [place] [address] [address] 2022-05-20 2022-05-20 Outpatient Rika_Jamar [facility] 103 [id number] [place] 00:00:00 00:00:00 87214 [facility] 2022-05-20 2022-05-20 Jamar [facility] [place] - [id number] M at[place]or 00:00:00 00:00:00 Rika: [address], [facility] [address] [facility] , Ph. h (979) Program 2022-05-17 2022-05-17 Outpatient Rika_Jamar [facility] 103 [id number] [place] 00:00:00 00:00:00 [id number] [facility] 2022-04-11 2022-04-24 Inpatient [facility] [id number] Memoria 00:29:00 19:45:[address] 2022-04-11 2022-04-24 Inpatient [facility] [id number] Memoria 00:29:00 19:45:00 r Man [address] [place] [address] 2022-04-10 2022-04-24 Outpatient [facility] [id number] 19:29:00 14:45:00 Mela Hamifford 2022-04-10 2022-04-[address] [facility] [id number] Memoria 19:29:00 14:45:00 MELA [facility] 2022-04-19 2022-04-19 Outpatient Rika_Jamar [facility] 103 [id number] [place] 00:00:00 00:00:00 [id number] [facility] 2022-04-10 2022-04-10 Outpatient Martell [facility] [id number] 19:29:00 19:29:00 Rachel pedroza i 2022-04-10 2022-04-10 Emergency E MAY [facility] [id number] [place] 11:52:00 18:57:00 MELA [facility] [place] 2022-03-14 2022-03-14 Outpatient Rika_Jamar [facility] 103 [id number] [place] 00:00:00 00:00:00 97745 [facility] 2022-03-14 2022-03-14 Tho [facility] [place] - [id number] M at[place]or 00:00:00 00:00:00 Reno Lundberg MAMMALOGIST-WARDROBE COORDINATOR-C: S[facility]ism Epi scop 1700 [facility] [address] [facility] , Ph. 2022-02-13 2022-02-13 Outpatient E NILSA MUNOZ [facility] [id number] [place] 14:40:00 18:30:00 Medica [facility] 2022-01-22 2022-01-22 Emergency X [facility] ERT [id number] Univers 09:17:00 12:51:00 [facility] yasmin o f [facility] 2022-01-22 2022-01-22 Emergency Rico, [place] [id number] Univers 09:17:00 12:51:00 [facility] 350.1.13.10 i [place] 4.2.7.2.686 [facility] [id number] [address] 2022-01-10 2022-01-10 Outpatient JUSTINO ORDAZ [facility] [id number] Univers 13:00:00 13:00:00 ity [facility] 2022-01-09 2022-01-09 Outpatient JUSTINO ORDAZ [facility] [id number] Univers 10:19:00 [facility]:40:[facility] 2022-01-09 2022-01-09 [facility] Justino Holbrook 1.2.840.2 [id number] Univers 10:19:00 11:40:00 Encounter R 91290.1.1 it y of 3.104.2.7 [place] .3.298662 Medica l .8 Branch 2022-01-08 2022-01-08 Laboratory Justino Holbrook 1.2.840.1 [id number] Univers 16:15:00 16:30:00 Only Only, Adc Test 85767.1.1 ity of 3.104.2.7 [place] .[id number] Medica l .8 Branch 2022-01-08 2022-01-08 Outpatient R JUSTINO HOLBROOK [facility] [id number] Univers 16:15:00 16:15:00 ity of [facility] 2022-01-07 2022-01-07 Travel 1.2.840.1 [id number] [id number] Univers 00:00:00 00:00:00 80609.1.1 350.1.13.10 ity of 3.104.2.7 4.[place].3.698 [place] .3.101522 084.8 Medica l .8 Branch 2022-01-01 2022-01-01 Outpatient Rika_Jamar [facility] 103 [id number]- [place] 00:00:00 00:00:00 [facility] 2021-12-21 2021-12-21 Outpatient Lavon [facility] 103 [id number] [place] 08:03:00 08:03:00 [facility] 2021-12-20 2021-12-20 Jamar Doll [facility] [place] - [id number] -202 [place] 00:00:00 00:00:00 Rika: 1700 [place] zoe Gabriel [facility] [place], [facility] [address] Aleisha maldonado , Ph. h (979) Program 2021-12-07 2021-12-07 Outpatient Haylee_Susanne [facility] 103 [id number] [place] 08:27:00 08:27:00 bin 98640 [facility] 2021-11-06 2021-11-06 Outpatient Ferguson_Ro MEHOP [facility] 103 [id number]- [place] 02:40:00 02:40:00 bin [facility] 2021-10-03 2021-10-03 Outpatient AMBREEN_FAR MEHOP [facility] 103 367 [place] 02:38:00 02:38:00 CAROLE 06816 [facility] 2021-09-27 2021-09-27 Ricky Askew AMBREEN_FAR FLHOP [facility] 103 [place] 00:00:00 00:00:00 CAROLE Leach [address] bhavesh DOMINGUEZ: 62917 Sikhism Epis animal cop [place] [address] [facility] Program [address] , Ph. 2021-09-20 2021-09-20 Jamar [facility] [id number] - [place] 00:00:00 00:00:00 Rika: 17[address], [facility] [address] [facility] , Ph. h (979) Program 2021-09-17 2021-09-17 Outpatient AMBREEN_FAR FLHOP [facility] 103 367 [place] 07:00:00 07:00:00 CAROLE [facility] 2021-09-11 2021-09-11 Outpatient AMBREEN_FAR MEHOP [facility] 103 [place] 10:52:00 10:52:00 CAROLE 60827 [facility] 2021-09-06 2021-09-06 Ricky Askew [facility] 103 [place] 00:00:00 00:00:00 CAROLE Leach [address] bhavesh DOMINGUEZ: 519[address] Sikhism Epis animal cop [place] [address] [facility] [address], [facility] [place] Program [address] , Ph. 2021-09-04 2021-09-04 Outpatient AMBREEN_FAR MEHOP [facility] 103 367 [place] 10:29:00 10:29:00 HANA [facility] 2021-08-30 2021-08-30 Outpatient JUSTINO ORDAZ [facility] [id number] Univers 09:15:00 09:15:00 [facility] 2021-08-23 2021-08-23 Outpatient JUSTINO ORDAZ [facility] [id number] Univers 08:30:00 08:30:00 [facility] 2021-08-10 2021-08-10 Outpatient AMBREEN_FAR MEHOP [facility] 103 [place] 09:12:00 09:12:00 HANA [facility] 2021-08-09 2021-08-09 Jamar AMBREEN_FAR [facility] [place] - [id number] - [place] 00:00:00 00:00:00 Rika: 1700 HANA [place] [address], [facility] [address] [facility] , Ph. h (979) Program 2021-08-08 2021-08-08 Outpatient AMBREEN_FAR [facility] 103 [place] 10:12:00 10:12:00 HANA [facility] 2021-07-28 2021-07-28 Outpatient AMBREEN_FAR MEHOP [facility] 103 367 [place] 08:02:00 08:02:00 HANA [facility] 2021-07-27 2021-07-27 Jamar AMBREEN_FAR [facility] [place] - [id number] - [place] 00:00:00 00:00:00 Rika: 1700 [address]NA [place] [address], [facility] [address] Expansion [facility] sandra , Ph. h (979) Program 2021-07-05 2021-07-05 Outpatient Toño_Luis [facility] [id number] [place] 01:22:00 01:22:00 0106 [facility] 2021-07-05 2021-07-05 Jamar [facility] - [id number] [place] 00:00:00 00:00:00 Rika: 1700 [place] [address], [facility] [address] Expansion Out sandra , Ph. h (979) Program 2021-05-22 2021-05-22 Telephone Justino Holbrook [facility] 1.2.840.11 [id number] Univers 00:00:00 00:00:00 R Y 350.1.13.10 it y of [facility] 4.2.7.2.686 [place] as BANK [phone] [address] 2021-05-18 2021-05-18 Office Justino Holbrook [facility] 1.2.840.114 [id number] Univers 15:22:02 17:55:12 Visit R Y 350.1.13.10 it y of [facility] 4.2.7.2.686 [place] as BANK [phone] [facility] 136 [place] 2021-05-18 2021-05-18 Outpatient R JUSTINO HOLBROOK [facility] [id number] Univers 15:15:00 17:55:12 ity of [facility] 2021-05-18 2021-05-18 Outpatient R JUSTINO HOLBROOK [facility] [id number] Univers 15:15:00 17:55:12 ity [facility] 2021-05-18 2021-05-18 Orders Doctor RAY 1.2.840.114 [id number] Univers 00:00:00 00:00:00 Only Unassigned, EMILEE 350.1.13.10 ity of [place] [facility] 4.2.7.2.686 [place] as [id number] [place] [address] [address] 2021-03-13 2021-03-13 Outpatient E MARICRUZ LUNDBERG [facility] [id number] [place] 14:19:00 17:29:00 Medica l [place] 2021-02-16 2021-02-16 Office Justino Holbrook [facility] 1.2.840.114 [id number] Univers 09:16:35 09:31:35 Visit R Y 350.1.13.10 it y of [facility] 4.2.7.2.686 [place] as BANK [phone] [facility]. 136 [place] 2021-02-16 2021-02-16 Outpatient R JUSTINO HOLBROOK [facility] [id number] Univers 09:30:00 09:30:00 ity of [facility] 2021-02-09 2021-02-09 Office ASHIA Espinosa [id number] [id number] Univers 15:29:00 15:44:00 Visit Estrellita Y 350.1.13.10 i ty of [facility] 4.2.7.2.686 [place] as BANK [phone] [facility] [address] [place] [address] 2021-02-09 2021-02-09 Outpatient [facility] [id number] Univers 15:15:00 15:15:00 ESTRELLITA ity o f [facility] 2020-07-16 2020-07-16 Outpatient Leora KAYLI [facility] [id number] [place] 13:58:00 18:20:00 PATRICK Jones [facility] 2020-05-18 2020-05-18 Natalie [facility] - [id number] [place] 00:00:00 00:00:00 Ministerio Bojorquez [address] da Foster, [place]: [address] [facility] - [address], [place], [place] [address] , Ph. 2020-05-17 2020-05-17 Outpatient Amber MCKINNEY [facility] 2019 [place] 02:29:00 02:29:00 1118 [facility] 2020-05-15 2020-05-15 Outpatient AMBREEN_FAR [facility] 103 [id number] [place] 03:58:00 03:58:00 CAROLE 47047 [facility] 2020-05-11 2020-05-11 Natalie AMBREEN_FAR [facility] [place] - [id number] -202 [place] 00:00:00 00:00:00 Ministerio Bojorquez 117[address] da Foster, [place]: [address] [facility] al [address] [facility] [place] [address], h [place], [place] [address] , Ph. 2020-05-02 2020-05-02 Outpatient AMBREEN_FAR [facility] 103 [id number] [place] 03:57:00 03:57:00 CAROLE 71064 [facility] 2020-05-01 2020-05-01 Outpatient Leora [facility] [id number] [place] 14:58:00 16:40:00 WASIM Medica [facility] 2019-12-15 2019-12-15 Office Adriana [facility] 1.2.840.114 [id number] Univers 12:40:00 13:00:00 Visit [facility] 350.1.13.10 it y of [place] [id number] [facility] [address] Office Building 2019-12-15 2019-12-15 Outpatient R ADRIANA [facility] [id number] Univers 12:40:00 12:40:00 DAYDAY ity of [facility] 2019-12-15 2019-12-15 Orders Doctor RAY 1.2.840.114 [id number] Univers 00:00:00 00:00:00 Only Unassigned, EMILEE 350.1.13.10 ity of [place] [facility] 4.2.7.2.686 Marciano as [id number] [facility] [address] 2019-12-15 2019-12-15 Telephone Adriana, [facility] 1.2.840.114 [id number] Univers 00:00:00 00:00:00 Dayday SPECIALTY 350.1.13.10 [place] [id number] [facility] [address] 2019-12-02 2019-12-02 Telephone Adriana [facility] 1.2.840.114 [id number] Univers 00:00:00 00:00:00 [facility] 350.1.13.10 it y of [place] 4.2.7.2.686 Art Hammond [phone] [address] Office Building Results Test Description Test Time Test Comments Results Result Comments Source TROPONIN I 2022-06-04 17:36:19 Test Item Value Reference Range Interpretation Comme nts TROPONIN I (test code = 0.002 ng/mL See_Comment [Au tomated message] The [id number]) system which ge nerated this result tra nsmitted reference range : <=0.034. The reference r quynh was not used to int erpret this result as normal/abnormal . SILVINA (test code = SILVINA) Reference (Normal) Range (defined by the 99th percentile reference limit): <= 0.034 ng/mL Note: Cardiac troponin begins to rise 3-4 hours after the onset of ischemia. Repeat in 4-6 hours if the sample was drawn within 3-4 hours of the onset of the symptom and found normal. Diagnosis of myocardial injury is made with acute changes in cTn concentrations with at least one serial sample above the 99th percentile upper reference limit (URL), taken together with the patient's clinical presentation. Biotin has been reported to cause a negative bias, interpret results relative to patient's use of biotin. Lab Interpretation Normal (test code = 13878-3) [id number] 17:36:19 Test Item Value Reference Range Interpretation Comments NT-proBNP (test code 76 pg/mL See_Comment [Autom ated = 0870113659) message] The system which generated this result transmitted reference range : <=125. The reference range was not used to interpret this result as normal/abnormal . SILVINA (test code = SILVINA) Biotin has been reported to cause a negative bias, interpret results relative to patient's use of biotin. Lab Interpretation Normal (test code = 18630-7) [facility] THRMPLAS [id number] 17:32:19 Test Item Value Reference Range Interpretation Comments APTT Patient (test code See_Comment H [Au tomated message] = 3173-2) The system [employer] generated this result transmitted ref erence range: 26 - 36 Seconds. The reference range was not used to int erpret this result as normal/abnormal . Lab Interpretation (test Abnormal code = 00751-4) [facility] / [id number] 17:32:19 Test Item Value Reference Range Interpretation Comments PROTIME PATIENT (test See_Comment H [Auto mated message] code = 5964-2) The system [employer] generated this result transmitted ref erence range: 10.1 - 1 2.6 Seconds. The reference range was not used to int erpret this result as normal/abnormal . INR (test code = 6301-6) Nor mal INR <1.1; Warfarin Therap eutic range 2.0 to 3. 0 or 2.5 to 3.5, dep ending upon the indica tions. Lab Interpretation (test Abnormal code = 56806-3) [facility]OLIC PANEL (69414)2022-06-04 17:24:59 Test Item Value Reference Range Interpretation Comments NA (test code = 140 mmol/L 135-145 3982610054) K (test code = 4.1 mmol/L 3.5-5.0 9846473565) CL (test code = 104 mmol/L 98-108 0501672688) CO2 TOTAL (test code 29 mmol/L 23-31 = 0448810435) AGAP (test code = 2-16 4438261173) BUN (test code = 10 mg/dL 7-23 0592792300) GLUCOSE (test code = 103 mg/dL 70-110 9578655304) CREATININE (test code 0.64 mg/dL 0.50-1.04 = 4395103736) TOTAL BILI (test code 0.4 mg/dL 0.1-1.1 = 2802286591) CALCIUM (test code = 9.3 mg/dL 8.6-10.6 5737215142) T PROTEIN (test code 7.1 g/dL 6.3-8.2 = 5953686600) ALBUMIN (test code = 4.2 g/dL 3.5-5.0 3374896154) ALK PHOS (test code = 99 U/L 34-122 4482573926) ALTv (test code = 30 U/L 5-35 1742-6) AST(SGOT) (test code 24 U/L 13-40 = 2484769646) eGFR (test code = mL/min/1.73m2 2598884973) SILVINA (test code = SILVINA) Association of Glomerular Filtration Rate (GFR) and Staging of Kidney Disease* + + +- +| GFR (mL/min/1.73 m2) ?| With Kidney Damage ?| ?Without Kidney Damage+ ------+ ----+ ------+| ?>90 ?| ?Stage one ?| ? Normal ?+ -+ + -+| ?60-89 ?| ?Stage two ?| ? Decreased GFR ? + + +- +| ?30-59 ?| ?Stage three ?| ? Stage three ? + + +- +| ?15-29 ?| ?Stage four ? | ? Stage four ?+ -+ + -+| ?<15 (or dialysis) ? ?| ?Stage five ? | ? Stage five ?+ -+ + -+ *Each stage assumes the associated GFR level has been in effect for at least three months. ?Stages 1 to 5, with or without kidney disease, indicate chronic kidney disease. Notes: Determination of stages one and two (with eGFR >59mL/min/1.73 m2) requires estimation of kidney damage for at least three months as defined by structural or functional abnormalities of the kidney, manifested by either:Pathological abnormalities or Markers of kidney damage (including abnormalities in the composition of the blood or urine or abnormalities in imaging tests). [facility] WITH [id number] 17:20:38 Test Item Value Reference Range Interpretation Comments WBC (test code = See_Comment [Automated 6530-2) message] The sy stem which generated this result transmitted reference range : 4.30 - 11.10 10*3/?L. The reference range was not used to interpret this result as normal/abnormal . RBC (test code = See_Comment [Automated 302-4) message] The sy stem which generated this result transmitted reference range : 3.93 - 5.25 10*6/?L. The reference range was not used to interpret this result as normal/abnormal . HGB (test code = 11.3 g/dL 11.6-15.0 L 718-7) HCT (test code = 35.7 % 35.7-45.2 4544-3) MCV (test code = 84.2 fL 80.6-95.5 787-2) MCH (test code = 26.7 pg 25.9-32.8 785-6) MCHC (test code = 31.7 g/dL 31.6-35.1 786-4) RDW-SD (test code = 52.7 fL 39.0-49.9 H 78078-5) RDW-CV (test code = 17.2 % 12.0-15.5 H 788-0) PLT (test code = See_Comment [Automated 777-3) message] The sy stem which generated this result transmitted reference range : 166 - 358 10*3/ ?L. The reference r quynh was not used to interpret this result as normal/abnormal . MPV (test code = 10.5 fL 9.5-12.9 52794-4) NRBC/100 WBC (test See_Comment [Automat ed code = [id number]) message] The system which generated this result transmitted reference range : 0.0 - 10.0 /100 WBCs. The refer ence range was not u sed to interpret th is result as normal/abnormal . NRBC x10^3 (test code See_Comment [Auto mated = [id number]) message] The s ystem which generated this result transmitted reference range : 10*3/?L. The reference range was not used to interpret this result as normal/abnormal . GRAN MAT (NEUT) % 57.1 % (test code = 770-8) IMM GRAN % (test code 0.50 % = 9211058609) LYMPH % (test code = 28.4 % 736-9) MONO % (test code = 6.2 % 5905-5) EOS % (test code = 6.8 % 713-8) BASO % (test code = 1.0 % 706-2) GRAN MAT x10^3(ANC) 4.73 10*3/uL 1.88-7.09 (test code = 3272218100) IMM GRAN x10^3 (test 0.04 10*3/uL 0.00-0.06 code = 7147269650) LYMPH x10^3 (test code 2.35 10*3/uL 1.32-3.29 = 731-0) MONO x10^3 (test code 0.51 10*3/uL 0.33-0.92 = 742-7) EOS x10^3 (test code = 0.56 10*3/uL 0.03-0.39 H 711-2) BASO x10^3 (test code 0.08 10*3/uL 0.01-0.07 H = 704-7) Lab Interpretation Abnormal (test code = 43501-7) [facility]2022-10-26 11:43:00 Test Item Value Reference Range Interpretation Comments Glucose Lvl (test code = Glucose Lvl) 93 70-99 [facility]EextqczIONMROTGV5525[facility]88-18 11:43:00 Test Item Value Reference Range Interpretation Comments BUN (test code = BUN) 13 7-22 [place] 963002-10-26 11:43:00 Test Item Value Reference Range Interpretation Comments Creatinine Lvl (test code = Creatinine 0.62 0.50-1.40 Lvl) [facility]HatishyUSHZUWAQP9412-43-31 11:43:00 Test Item Value Reference Range Interpretation Comments Sodium Lvl (test code = Sodium Lvl) 142 135-145 [facility] HospitalKdebqzuUBSGFWGQG6870-90-16 11:43:00 Test Item Value Reference Range Interpretation Comments Potassium Lvl (test code = Potassium 3.5 3.5-5.1 Lvl) [facility] HospitalJwqlygzRJVHAXRIN2095-44-42 11:43:00 Test Item Value Reference Range Interpretation Comments Chloride Lvl (test code = Chloride Lvl) 109 95-109 [place] 963002-10-26 11:43:00 Test Item Value Reference Range Interpretation Comments CO2 (test code = CO2) 24-32 [facility] HospitalZqstnhkISHYFPWJG1531-83-72 11:43:00 Test Item Value Reference Range Interpretation Comments Calcium Lvl (test code = Calcium Lvl) 8.9 8.5-10.5 [facility] HospitalLwvbaffDRWYOWTTX3151-97-08 11:43:00 Test Item Value Reference Range Interpretation Comments Total Protein (test code = Total 6.5 6.4-8.4 Protein) [facility] HospitalJjcqrkgUZCMMFMOU7657-24-72 11:43:00 Test Item Value Reference Range Interpretation Comments Albumin Lvl (test code = Albumin Lvl) 2.6 3.5-5.0 [facility] HospitalGbsgcurUQUJMDTEX5787-40-77 11:43:00 Test Item Value Reference Range Interpretation Comments ALT (test code = ALT) 16 See_Comment [Auto mated message] The system which ge nerated this result transmit fabiano reference range : <=65. The reference range was not used to interpr et this result as aleks l/abnormal. [facility] HospitalBncchsnRRMDAJUFO8776-88-88 11:43:00 Test Item Value Reference Range Interpretation Comments AST (test code = AST) 8 See_Comment [Auto mated message] The system which ge nerated this result transmit fabiano reference range : <=37. The reference range was not used to interpr et this result as aleks l/abnormal. [facility] HospitalEqhpbmoPXRKCTPBY2376-46-47 11:43:00 Test Item Value Reference Range Interpretation Comments Alk Phos (test code = Alk Phos) 93 39-136 [facility] HospitalZjhrpidHJBDTYMCA8829-81-82 11:43:00 Test Item Value Reference Range Interpretation Comments Bili Total (test code = Bili Total) 0.3 0.2-1.3 [facility] HospitalPadlduxVZGXDBPVI7016-77-21 11:43:00 Test Item Value Reference Range Interpretation Comments AGAP (test code = AGAP) 10.5 10.0-20.0 [facility] HospitalQgxtqajHYEYXKPIE9300-12-32 11:43:00 Test Item Value Reference Range Interpretation Comments B/C Ratio (test code = B/C Ratio) 21 1 6-25 [facility] HospitalEkgoftqGLZFNBATD7715-78-63 11:43:00 Test Item Value Reference Range Interpretation Comments Globulin (test code = Globulin) 3.9 2.7-4.2 [facility] HospitalRegqobwAHCVUQEVJ7390-01-00 11:43:00 Test Item Value Reference Range Interpretation Comments A/G Ratio (test code = A/G Ratio) 0.7 1 0.7-1.6 [facility] HospitalBafuzznSAOAOWSLS8843-31-58 11:43:00 Test Item Value Reference Range Interpretation Comments eGFR (test code = eGFR) 107 [facility]SxgspfvNZLDSQJIRF9916-43-59 11:43:00 Test Item Value Reference Range Interpretation Comments Segs (test code = Segs) 75.4 45.0-75.0 [place] 951542-10-26 11:43:00 Test Item Value Reference Range Interpretation Comments Lymphocytes (test code = Lymphocytes) 17.6 20.0-40.0 [place] 951542-10-26 11:43:00 Test Item Value Reference Range Interpretation Comments Monocytes (test code = Monocytes) 5.9 2.0-12.0 [place] 951542-10-26 11:43:00 Test Item Value Reference Range Interpretation Comments Eosinophils (test code = 0.5 See_Comment [A utomated message] The Eosinophils) system which ge nerated this result tra nsmitted reference range : <=4.0. The reference r quynh was not used to int erpret this result as normal/abnormal . [place] 951542-10-26 11:43:00 Test Item Value Reference Range Interpretation Comments Basophils (test code = 0.6 See_Comment [Aut omated message] The Basophils) system which ge nerated this result tra nsmitted reference range : <=1.0. The reference r quynh was not used to int erpret this result as normal/abnormal . [facility] HospitalOgesqlxEPYLLXXJUM3153-98-03 11:43:00 Test Item Value Reference Range Interpretation Comments Neutrophils # (test code = Neutrophils 8.1 1.5-8.1 #) [place] 951542-10-26 11:43:00 Test Item Value Reference Range Interpretation Comments Lymphocytes # (test code = Lymphocytes 1.9 1.0-5.5 #) [place] 951542-10-26 11:43:00 Test Item Value Reference Range Interpretation Comments Monocytes # (test code 0.6 See_Comment [Aut omated message] The = Monocytes #) system which generated this result tra nsmitted reference range : <=0.8. The reference r quynh was not used to int erpret this result as normal/abnormal . [place] [address]-10-26 11:43:00 Test Item Value Reference Range Interpretation Comments Basophils # (test code 0.1 See_Comment [Aut omated message] The = Basophils #) system which generated this result tra nsmitted reference range : <=0.2. The reference r quynh was not used to int erpret this result as normal/abnormal . [place] [address]-10-26 11:43:00 Test Item Value Reference Range Interpretation Comments Microcyte (test code = 1+ *ABN*(04/24/22 Microcyte) 6:43 AM) [place] 951542-10-26 11:43:00 Test Item Value Reference Range Interpretation Comments WBC (test code = WBC) 10.8 3.7-10.4 [place] 951542-10-26 11:43:00 Test Item Value Reference Range Interpretation Comments RBC (test code = RBC) 3.62 4.20-5.40 [place] 951542-10-26 11:43:00 Test Item Value Reference Range Interpretation Comments Hgb (test code = Hgb) 9.7 12.0-16.0 [place] [address]-10-26 11:43:00 Test Item Value Reference Range Interpretation Comments Hct (test code = Hct) 28.6 36.0-48.0 [place] [address]-10-26 11:43:00 Test Item Value Reference Range Interpretation Comments MCV (test code = MCV) 78.9 80.0-98.0 [place] 951542-10-26 11:43:00 Test Item Value Reference Range Interpretation Comments MCH (test code = MCH) 26.9 pg 27.0-31.0 [facility] HospitalVadnzuoBUABOLJZBF3895-79-20 11:43:00 Test Item Value Reference Range Interpretation Comments MCHC (test code = MCHC) 34.1 32.0-36.0 [facility] HospitalPajkadiVAQTHWEOGS7636-32-29 11:43:00 Test Item Value Reference Range Interpretation Comments RDW (test code = RDW) 16.3 11.5-14.5 [place] [address]-10-26 11:43:00 Test Item Value Reference Range Interpretation Comments Platelet (test code = Platelet) 242 133-450 [facility] HospitalQdzjttnZEHCRLXJZH3732-99-88 11:43:00 Test Item Value Reference Range Interpretation Comments MPV (test code = MPV) 8.7 7.4-10.4 [facility] HospitalUipqpvxEHJBPXNYC4286-56-43 11:43:00 Test Item Value Reference Range Interpretation Comments Glucose Lvl (test code = Glucose Lvl) 93 70-99 [facility] HospitalYlyiftsCRUJPERKO5924-88-56 11:43:00 Test Item Value Reference Range Interpretation Comments BUN (test code = BUN) 13 7-22 [facility] HospitalQvkipuiRVVZTQKUC2700-24-76 11:43:00 Test Item Value Reference Range Interpretation Comments Creatinine Lvl (test code = Creatinine 0.62 0.50-1.40 Lvl) [facility] HospitalFuhtsimOEMQEHPZF3614-32-66 11:43:00 Test Item Value Reference Range Interpretation Comments Sodium Lvl (test code = Sodium Lvl) 142 135-145 [facility] HospitalFmfprnoBPDTTHSBA3137-69-51 11:43:00 Test Item Value Reference Range Interpretation Comments Potassium Lvl (test code = Potassium 3.5 3.5-5.1 Lvl) [facility] HospitalJoxaohqZZSJUAACF7509-49-52 11:43:00 Test Item Value Reference Range Interpretation Comments Chloride Lvl (test code = Chloride Lvl) 109 95-109 [facility] HospitalYjsitssPANPEEILA9233-41-81 11:43:00 Test Item Value Reference Range Interpretation Comments CO2 (test code = CO2) - [facility] HospitalEsoauefCSWIPQWPP1866-47-69 11:43:00 Test Item Value Reference Range Interpretation Comments Calcium Lvl (test code = Calcium Lvl) 8.9 8.5-10.5 [facility] HospitalGqwmrlwPNEBMQACJ2835-01-56 11:43:00 Test Item Value Reference Range Interpretation Comments Total Protein (test code = Total 6.5 6.4-8.4 Protein) [facility] HospitalKowujavOEUXYJYNY7490-24-29 11:43:00 Test Item Value Reference Range Interpretation Comments Albumin Lvl (test code = Albumin Lvl) 2.6 3.5-5.0 [facility] HospitalDppxbfqDLRIMPRFB5657-28-08 11:43:00 Test Item Value Reference Range Interpretation Comments ALT (test code = ALT) 16 See_Comment [Auto mated message] The system which ge nerated this result transmit fabiano reference range : <=65. The reference range was not used to interpr et this result as aleks l/abnormal. [facility] HospitalUsswvftEXYYKWVOG3885-19-00 11:43:00 Test Item Value Reference Range Interpretation Comments AST (test code = AST) 8 See_Comment [Auto mated message] The system which ge nerated this result transmit fabiano reference range : <=37. The reference range was not used to interpr et this result as aleks l/abnormal. [place] [address]-10-26 11:43:00 Test Item Value Reference Range Interpretation Comments Alk Phos (test code = Alk Phos) 93 39-136 [facility] HospitalRqawabsZQVVHPLPY2627-43-04 11:43:00 Test Item Value Reference Range Interpretation Comments Bili Total (test code = Bili Total) 0.3 0.2-1.3 [facility] HospitalDwlqjauBIEUZXKCK1005-52-36 11:43:00 Test Item Value Reference Range Interpretation Comments AGAP (test code = AGAP) 10.5 10.0-20.0 [place] [address]-10-26 11:43:00 Test Item Value Reference Range Interpretation Comments B/C Ratio (test code = B/C Ratio) 21 1 6-25 [place] 963002-10-26 11:43:00 Test Item Value Reference Range Interpretation Comments Globulin (test code = Globulin) 3.9 2.7-4.2 [place] 963002-10-26 11:43:00 Test Item Value Reference Range Interpretation Comments A/G Ratio (test code = A/G Ratio) 0.7 1 0.7-1.6 [place] [address]-10-26 11:43:00 Test Item Value Reference Range Interpretation Comments eGFR (test code = eGFR) 107 [facility] HospitalByvqfeqNKZTTFTQRW3783-55-73 11:43:00 Test Item Value Reference Range Interpretation Comments Segs (test code = Segs) 75.4 45.0-75.0 [facility] HospitalApalyieKLJGYXDYJG9050-19-82 11:43:00 Test Item Value Reference Range Interpretation Comments Lymphocytes (test code = Lymphocytes) 17.6 20.0-40.0 [place] 951542-10-26 11:43:00 Test Item Value Reference Range Interpretation Comments Monocytes (test code = Monocytes) 5.9 2.0-12.0 [place] [address]-10-26 11:43:00 Test Item Value Reference Range Interpretation Comments Eosinophils (test code = 0.5 See_Comment [A utomated message] The Eosinophils) system which ge nerated this result tra nsmitted reference range : <=4.0. The reference r quynh was not used to int erpret this result as normal/abnormal . [facility] HospitalVwxnrtiWFXBNOUDKJ2953-82-01 11:43:00 Test Item Value Reference Range Interpretation Comments Basophils (test code = 0.6 See_Comment [Aut omated message] The Basophils) system which ge nerated this result tra nsmitted reference range : <=1.0. The reference r quynh was not used to int erpret this result as normal/abnormal . [facility] HospitalSbytqkqMOBIXTKXXW8401-65-18 11:43:00 Test Item Value Reference Range Interpretation Comments Neutrophils # (test code = Neutrophils 8.1 1.5-8.1 #) [facility] HospitalLlcypmsARDPILINVB9270-65-84 11:43:00 Test Item Value Reference Range Interpretation Comments Lymphocytes # (test code = Lymphocytes 1.9 1.0-5.5 #) [place] 951542-10-26 11:43:00 Test Item Value Reference Range Interpretation Comments Monocytes # (test code 0.6 See_Comment [Aut omated message] The = Monocytes #) system which generated this result tra nsmitted reference range : <=0.8. The reference r quynh was not used to int erpret this result as normal/abnormal . [place] 951542-10-26 11:43:00 Test Item Value Reference Range Interpretation Comments Basophils # (test code 0.1 See_Comment [Aut omated message] The = Basophils #) system which generated this result tra nsmitted reference range : <=0.2. The reference r quynh was not used to int erpret this result as normal/abnormal . [facility] HospitalVmcxhnqMVPTOILKOU1278-79-93 11:43:00 Test Item Value Reference Range Interpretation Comments Microcyte (test code = 1+ *ABN*(04/24/22 Microcyte) 6:43 AM) [place] 951542-10-26 11:43:00 Test Item Value Reference Range Interpretation Comments WBC (test code = WBC) 10.8 3.7-10.4 [place] [address]-10-26 11:43:00 Test Item Value Reference Range Interpretation Comments RBC (test code = RBC) 3.62 4.20-5.40 [place] 951542-10-26 11:43:00 Test Item Value Reference Range Interpretation Comments Hgb (test code = Hgb) 9.7 12.0-16.0 [place] 951542-10-26 11:43:00 Test Item Value Reference Range Interpretation Comments Hct (test code = Hct) 28.6 36.0-48.0 [facility] HospitalWrtfkpdETFBGLQMQK6015-60-67 11:43:00 Test Item Value Reference Range Interpretation Comments MCV (test code = MCV) 78.9 80.0-98.0 [place] 951542-10-26 11:43:00 Test Item Value Reference Range Interpretation Comments MCH (test code = MCH) 26.9 pg 27.0-31.0 [facility] HospitalLvubcrhQJAEMXSUDT6065-55-99 11:43:00 Test Item Value Reference Range Interpretation Comments MCHC (test code = MCHC) 34.1 32.0-36.0 [facility] HospitalUmnfnpiQSJCEXTKPB9891-93-10 11:43:00 Test Item Value Reference Range Interpretation Comments RDW (test code = RDW) 16.3 11.5-14.5 [place] 951542-10-26 11:43:00 Test Item Value Reference Range Interpretation Comments Platelet (test code = Platelet) 242 133-450 [facility] HospitalNptxqkuPKRFREGLHT9643-56-81 11:43:00 Test Item Value Reference Range Interpretation Comments MPV (test code = MPV) 8.7 7.4-10.4 [facility] HospitalXksrxklHHOXHQPMU1250-29-15 11:43:00 Test Item Value Reference Range Interpretation Comments Glucose Lvl (test code = Glucose Lvl) 93 70-99 [facility] HospitalChklnzbOIKTPHJIV9011-00-63 11:43:00 Test Item Value Reference Range Interpretation Comments BUN (test code = BUN) 13 7-22 [facility] HospitalRpzlioiOULTMQWKV0110-20-37 11:43:00 Test Item Value Reference Range Interpretation Comments Creatinine Lvl (test code = Creatinine 0.62 0.50-1.40 Lvl) [facility] HospitalAxxfituCWTAYGXGS2201-51-11 11:43:00 Test Item Value Reference Range Interpretation Comments Sodium Lvl (test code = Sodium Lvl) 142 135-145 [facility] HospitalOkmlczvLLURYDGQH6985-93-49 11:43:00 Test Item Value Reference Range Interpretation Comments Potassium Lvl (test code = Potassium 3.5 3.5-5.1 Lvl) [facility] HospitalJhwcecmKLTCKRQRL5075-51-26 11:43:00 Test Item Value Reference Range Interpretation Comments Chloride Lvl (test code = Chloride Lvl) 109 95-109 [place] 963002-10-26 11:43:00 Test Item Value Reference Range Interpretation Comments CO2 (test code = CO2) 26 24-32 [place] [address]-10-26 11:43:00 Test Item Value Reference Range Interpretation Comments Calcium Lvl (test code = Calcium Lvl) 8.9 8.5-10.5 [facility] HospitalXkrqiyxSEZKGJFNK6115-94-89 11:43:00 Test Item Value Reference Range Interpretation Comments Total Protein (test code = Total 6.5 6.4-8.4 Protein) [facility] HospitalZadrpzgTPAGFZISC7337-27-42 11:43:00 Test Item Value Reference Range Interpretation Comments Albumin Lvl (test code = Albumin Lvl) 2.6 3.5-5.0 [facility] HospitalHnsndmfGMCJWVCMB9583-28-25 11:43:00 Test Item Value Reference Range Interpretation Comments ALT (test code = ALT) 16 See_Comment [Auto mated message] The system which ge nerated this result transmit fabiano reference range : <=65. The reference range was not used to interpr et this result as aleks l/abnormal. [facility] HospitalHyslsnxKSROYJHLK9762-88-21 11:43:00 Test Item Value Reference Range Interpretation Comments Glucose Lvl (test code = Glucose Lvl) 93 70-99 [place] [address]-10-26 11:43:00 Test Item Value Reference Range Interpretation Comments BUN (test code = BUN) 13 - [place] [address]-10-26 11:43:00 Test Item Value Reference Range Interpretation Comments Creatinine Lvl (test code = Creatinine 0.62 0.50-1.40 Lvl) [facility] HospitalMihjsraKJSRPTRFF3261-64-79 11:43:00 Test Item Value Reference Range Interpretation Comments Sodium Lvl (test code = Sodium Lvl) 142 135-145 [place] [address]-10-26 11:43:00 Test Item Value Reference Range Interpretation Comments AST (test code = AST) 8 See_Comment [Auto mated message] The system which ge nerated this result transmit fabiano reference range : <=37. The reference range was not used to interpr et this result as aleks l/abnormal. [place] 963002-10-26 11:43:00 Test Item Value Reference Range Interpretation Comments Potassium Lvl (test code = Potassium 3.5 3.5-5.1 Lvl) [facility] HospitalNswsgbpROGGKISWK1471-32-01 11:43:00 Test Item Value Reference Range Interpretation Comments Chloride Lvl (test code = Chloride Lvl) 109 95-109 [facility] HospitalPftphszINRTFGLVM5258-29-74 11:43:00 Test Item Value Reference Range Interpretation Comments CO2 (test code = CO2) 26 24-32 [facility] HospitalJenaljvVACUDAOHU2685-15-47 11:43:00 Test Item Value Reference Range Interpretation Comments Calcium Lvl (test code = Calcium Lvl) 8.9 8.5-10.5 [facility] HospitalSglrgarQLYIDQVCS9877-81-19 11:43:00 Test Item Value Reference Range Interpretation Comments Total Protein (test code = Total 6.5 6.4-8.4 Protein) [facility] HospitalGznviafDSICQFFCJ0502-09-51 11:43:00 Test Item Value Reference Range Interpretation Comments Albumin Lvl (test code = Albumin Lvl) 2.6 3.5-5.0 [facility] HospitalVehgjldRLCKGFRFV8999-12-99 11:43:00 Test Item Value Reference Range Interpretation Comments ALT (test code = ALT) 16 See_Comment [Auto mated message] The system which ge nerated this result transmit fabiano reference range : <=65. The reference range was not used to interpr et this result as aleks l/abnormal. [facility] HospitalPhivsfpMBJHLMTIB3456-17-97 11:43:00 Test Item Value Reference Range Interpretation Comments AST (test code = AST) 8 See_Comment [Auto mated message] The system which ge nerated this result transmit fabiano reference range : <=37. The reference range was not used to interpr et this result as aleks l/abnormal. [facility] HospitalTsmrctuKEXNHNHKP7064-82-80 11:43:00 Test Item Value Reference Range Interpretation Comments Alk Phos (test code = Alk Phos) 93 39-136 [facility] HospitalIseuhxdVBUCUHXLQ8761-82-98 11:43:00 Test Item Value Reference Range Interpretation Comments Bili Total (test code = Bili Total) 0.3 0.2-1.3 [facility] HospitalFpsocniAWUACLJAN5892-86-60 11:43:00 Test Item Value Reference Range Interpretation Comments Alk Phos (test code = Alk Phos) 93 39-136 [facility] HospitalXyylrlvPBVCQRGOF2594-81-72 11:43:00 Test Item Value Reference Range Interpretation Comments AGAP (test code = AGAP) 10.5 10.0-20.0 [facility] HospitalSaulsszRICSKWVWW1692-07-35 11:43:00 Test Item Value Reference Range Interpretation Comments B/C Ratio (test code = B/C Ratio) 21 1 6-25 [place] 963002-10-26 11:43:00 Test Item Value Reference Range Interpretation Comments Globulin (test code = Globulin) 3.9 2.7-4.2 [place] 963002-10-26 11:43:00 Test Item Value Reference Range Interpretation Comments A/G Ratio (test code = A/G Ratio) 0.7 1 0.7-1.6 [place] 963002-10-26 11:43:00 Test Item Value Reference Range Interpretation Comments eGFR (test code = eGFR) 107 [facility] HospitalWecsdtgOVOMQPZGTL1020-59-46 11:43:00 Test Item Value Reference Range Interpretation Comments Segs (test code = Segs) 75.4 45.0-75.0 [facility] HospitalUbjrfmhSJTMDHFXKK9952-58-17 11:43:00 Test Item Value Reference Range Interpretation Comments Lymphocytes (test code = Lymphocytes) 17.6 20.0-40.0 [place] 951542-10-26 11:43:00 Test Item Value Reference Range Interpretation Comments Monocytes (test code = Monocytes) 5.9 2.0-12.0 [facility] HospitalScsehzqXPJUWTEAWN3450-54-00 11:43:00 Test Item Value Reference Range Interpretation Comments Eosinophils (test code = 0.5 See_Comment [A utomated message] The Eosinophils) system which ge nerated this result tra nsmitted reference range : <=4.0. The reference r quynh was not used to int erpret this result as normal/abnormal . [facility] HospitalOrsvyiiMHFIJPNHDI8656-80-75 11:43:00 Test Item Value Reference Range Interpretation Comments Basophils (test code = 0.6 See_Comment [Aut omated message] The Basophils) system which ge nerated this result tra nsmitted reference range : <=1.0. The reference r quynh was not used to int erpret this result as normal/abnormal . [place] 963002-10-26 11:43:00 Test Item Value Reference Range Interpretation Comments Bili Total (test code = Bili Total) 0.3 0.2-1.3 [place] 951542-10-26 11:43:00 Test Item Value Reference Range Interpretation Comments Neutrophils # (test code = Neutrophils 8.1 1.5-8.1 #) [place] 951542-10-26 11:43:00 Test Item Value Reference Range Interpretation Comments Lymphocytes # (test code = Lymphocytes 1.9 1.0-5.5 #) [place] 951542-10-26 11:43:00 Test Item Value Reference Range Interpretation Comments Monocytes # (test code 0.6 See_Comment [Aut omated message] The = Monocytes #) system which generated this result tra nsmitted reference range : <=0.8. The reference r quynh was not used to int erpret this result as normal/abnormal . [place] 951542-10-26 11:43:00 Test Item Value Reference Range Interpretation Comments Basophils # (test code 0.1 See_Comment [Aut omated message] The = Basophils #) system which generated this result tra nsmitted reference range : <=0.2. The reference r quynh was not used to int erpret this result as normal/abnormal . [facility] HospitalBhtruwrIQEYIWLREI6650-46-24 11:43:00 Test Item Value Reference Range Interpretation Comments Microcyte (test code = 1+ *ABN*(04/24/22 Microcyte) 6:43 AM) [place] [address]-10-26 11:43:00 Test Item Value Reference Range Interpretation Comments WBC (test code = WBC) 10.8 3.7-10.4 [place] [address]-10-26 11:43:00 Test Item Value Reference Range Interpretation Comments RBC (test code = RBC) 3.62 4.20-5.40 [place] [address]-10-26 11:43:00 Test Item Value Reference Range Interpretation Comments Hgb (test code = Hgb) 9.7 12.0-16.0 [place] [address]-10-26 11:43:00 Test Item Value Reference Range Interpretation Comments Hct (test code = Hct) 28.6 36.0-48.0 [place] 951542-10-26 11:43:00 Test Item Value Reference Range Interpretation Comments MCV (test code = MCV) 78.9 80.0-98.0 [facility]Mj[facility]ucgYYHWQAIPH5485-58-48 11:43:00 Test Item Value Reference Range Interpretation Comments AGAP (test code = AGAP) 10.5 10.0-20.0 [facility]nhiwfaBDKCZRXIKI7071-94-12 11:43:00 Test Item Value Reference Range Interpretation Comments MCH (test code = MCH) 26.9 pg 27.0-31.0 [facility]UsbqdnuEBYIILCBJE2768-63-07 11:43:00 Test Item Value Reference Range Interpretation Comments MCHC (test code = MCHC) 34.1 32.0-36.0 [facility]IkmrxawFEENIKBWVP9787-14-00 11:43:00 Test Item Value Reference Range Interpretation Comments RDW (test code = RDW) 16.3 11.5-14.5 [facility] CenterUdijongIBOMALDAPO0443-06-01 11:43:00 Test Item Value Reference Range Interpretation Comments Platelet (test code = Platelet) 242 133-450 [facility]SrilttxXAJUGWGOXQ0309-35-64 11:43:00 Test Item Value Reference Range Interpretation Comments MPV (test code = MPV) 8.7 7.4-10.4 [facility] HospitalEshfkguMIPUCBUSV3354-65-65 11:43:00 Test Item Value Reference Range Interpretation Comments B/C Ratio (test code = B/C Ratio) 21 1 6-25 [facility] HospitalIwiztynKXSHGTUZR7777-16-58 11:43:00 Test Item Value Reference Range Interpretation Comments Globulin (test code = Globulin) 3.9 2.7-4.2 [facility] HospitalNzbhwpgVLCYGWLYN3097-39-96 11:43:00 Test Item Value Reference Range Interpretation Comments A/G Ratio (test code = A/G Ratio) 0.7 1 0.7-1.6 [facility] HospitalAwuduqxZPIYPCTRG4017-94-02 11:43:00 Test Item Value Reference Range Interpretation Comments eGFR (test code = eGFR) 107 [facility] HospitalOitdxhsTRRMQELGCO1343-58-58 11:43:00 Test Item Value Reference Range Interpretation Comments Segs (test code = Segs) 75.4 45.0-75.0 [facility] HospitalMgetqdhVLVTALSAWC8858-94-02 11:43:00 Test Item Value Reference Range Interpretation Comments Lymphocytes (test code = Lymphocytes) 17.6 20.0-40.0 [facility] HospitalJvezieeQWEHLJGZMG0095-28-92 11:43:00 Test Item Value Reference Range Interpretation Comments Monocytes (test code = Monocytes) 5.9 2.0-12.0 [place] 951542-10-26 11:43:00 Test Item Value Reference Range Interpretation Comments Eosinophils (test code = 0.5 See_Comment [A utomated message] The Eosinophils) system which ge nerated this result tra nsmitted reference range : <=4.0. The reference r quynh was not used to int erpret this result as normal/abnormal . [place] 951542-10-26 11:43:00 Test Item Value Reference Range Interpretation Comments Basophils (test code = 0.6 See_Comment [Aut omated message] The Basophils) system which ge nerated this result tra nsmitted reference range : <=1.0. The reference r quynh was not used to int erpret this result as normal/abnormal . [place] 951542-10-26 11:43:00 Test Item Value Reference Range Interpretation Comments Neutrophils # (test code = Neutrophils 8.1 1.5-8.1 #) [place] [address]-10-26 11:43:00 Test Item Value Reference Range Interpretation Comments Lymphocytes # (test code = Lymphocytes 1.9 1.0-5.5 #) [facility] HospitalVvuicgoHKBHIONBDD0527-85-97 11:43:00 Test Item Value Reference Range Interpretation Comments Monocytes # (test code 0.6 See_Comment [Aut omated message] The = Monocytes #) system which generated this result tra nsmitted reference range : <=0.8. The reference r quynh was not used to int erpret this result as normal/abnormal . [place] [address]-10-26 11:43:00 Test Item Value Reference Range Interpretation Comments Basophils # (test code 0.1 See_Comment [Aut omated message] The = Basophils #) system which generated this result tra nsmitted reference range : <=0.2. The reference r quynh was not used to int erpret this result as normal/abnormal . [place] [address]-10-26 11:43:00 Test Item Value Reference Range Interpretation Comments Microcyte (test code = 1+ *ABN*(04/24/22 Microcyte) 6:43 AM) [place] [address]-10-26 11:43:00 Test Item Value Reference Range Interpretation Comments WBC (test code = WBC) 10.8 3.7-10.4 [facility] HospitalZbhmvpwJYUEEKVHZJ9846-24-74 11:43:00 Test Item Value Reference Range Interpretation Comments RBC (test code = RBC) 3.62 4.20-5.40 [facility] HospitalIaaglqrCYNQQUNSFR7412-32-55 11:43:00 Test Item Value Reference Range Interpretation Comments Hgb (test code = Hgb) 9.7 12.0-16.0 [facility] HospitalCxuceygDHTLDPZOFG7642-40-96 11:43:00 Test Item Value Reference Range Interpretation Comments Hct (test code = Hct) 28.6 36.0-48.0 [facility] HospitalMeznwmkMUUIDJSRLL0035-50-87 11:43:00 Test Item Value Reference Range Interpretation Comments MCV (test code = MCV) 78.9 80.0-98.0 [facility] HospitalEhrxjakFSEUPKRNYJ0330-08-53 11:43:00 Test Item Value Reference Range Interpretation Comments MCH (test code = MCH) 26.9 pg 27.0-31.0 [facility] HospitalTzojdqxEPMFSIOPTY6851-15-73 11:43:00 Test Item Value Reference Range Interpretation Comments MCHC (test code = MCHC) 34.1 32.0-36.0 [facility] HospitalLfxzcemJCOIBSKJZN0961-63-87 11:43:00 Test Item Value Reference Range Interpretation Comments RDW (test code = RDW) 16.3 11.5-14.5 [facility] HospitalDwnrgxlXAWHPXNLHP7531-32-55 11:43:00 Test Item Value Reference Range Interpretation Comments Platelet (test code = Platelet) 242 133-450 [facility] HospitalFmlnsazUWFSCFDCV0717-54-38 11:43:00 Test Item Value Reference Range Interpretation Comments Glucose Lvl (test code = Glucose Lvl) 93 70-99 [facility] HospitalVvbipkbWYXSBDUPE2666-17-00 11:43:00 Test Item Value Reference Range Interpretation Comments BUN (test code = BUN) 13 7-22 [facility] HospitalVoxhyjoDRJRFVBSY3185-45-00 11:43:00 Test Item Value Reference Range Interpretation Comments Creatinine Lvl (test code = Creatinine 0.62 0.50-1.40 Lvl) [facility] HospitalMoltlvvBGFGCODFMY8700-58-01 11:43:00 Test Item Value Reference Range Interpretation Comments MPV (test code = MPV) 8.7 7.4-10.4 [facility] HospitalHrkhahqLGSOQQLKP9194-49-36 11:43:00 Test Item Value Reference Range Interpretation Comments Sodium Lvl (test code = Sodium Lvl) 142 135-145 [facility] HospitalQbeeklnCBBTJCFQK8216-08-73 11:43:00 Test Item Value Reference Range Interpretation Comments Potassium Lvl (test code = Potassium 3.5 3.5-5.1 Lvl) [facility] HospitalOqkegumBYACPJEXP5447-31-05 11:43:00 Test Item Value Reference Range Interpretation Comments Chloride Lvl (test code = Chloride Lvl) 109 95-109 [facility] HospitalEfcdnggMOCQLJAND3471-50-32 11:43:00 Test Item Value Reference Range Interpretation Comments CO2 (test code = CO2) 24-32 [facility] HospitalAnpcmuvDMDHCTGUX6757-08-26 11:43:00 Test Item Value Reference Range Interpretation Comments Calcium Lvl (test code = Calcium Lvl) 8.9 8.5-10.5 [facility] HospitalZkvmwcpTGGQZQCOR7507-27-11 11:43:00 Test Item Value Reference Range Interpretation Comments Total Protein (test code = Total 6.5 6.4-8.4 Protein) [facility] HospitalYgmmzimOJZBMSRWP4785-91-88 11:43:00 Test Item Value Reference Range Interpretation Comments Albumin Lvl (test code = Albumin Lvl) 2.6 3.5-5.0 [facility] HospitalRpbcpfoKJNUGRYKT3140-97-75 11:43:00 Test Item Value Reference Range Interpretation Comments ALT (test code = ALT) 16 See_Comment [Auto mated message] The system which ge nerated this result transmit fabiano reference range : <=65. The reference range was not used to interpr et this result as aleks l/abnormal. [facility] HospitalQayxbwfEBKKGXMSW9667-55-85 11:43:00 Test Item Value Reference Range Interpretation Comments AST (test code = AST) 8 See_Comment [Auto mated message] The system which ge nerated this result transmit fabiano reference range : <=37. The reference range was not used to interpr et this result as aleks l/abnormal. [facility] HospitalEtrypqzOZAUNMPXJ8366-63-25 11:43:00 Test Item Value Reference Range Interpretation Comments Alk Phos (test code = Alk Phos) 93 39-136 [facility] HospitalMsupbcfJHRSQHKRR1599-03-35 11:43:00 Test Item Value Reference Range Interpretation Comments Bili Total (test code = Bili Total) 0.3 0.2-1.3 [facility] HospitalHhaanqfMENMMFTHN5376-25-15 11:43:00 Test Item Value Reference Range Interpretation Comments AGAP (test code = AGAP) 10.5 10.0-20.0 [place] 963002-10-26 11:43:00 Test Item Value Reference Range Interpretation Comments B/C Ratio (test code = B/C Ratio) 21 1 6-25 [place] 963002-10-26 11:43:00 Test Item Value Reference Range Interpretation Comments Globulin (test code = Globulin) 3.9 2.7-4.2 [place] 963002-10-26 11:43:00 Test Item Value Reference Range Interpretation Comments A/G Ratio (test code = A/G Ratio) 0.7 1 0.7-1.6 [place] 963002-10-26 11:43:00 Test Item Value Reference Range Interpretation Comments eGFR (test code = eGFR) 107 [facility] HospitalXckfwtmAQFLGXKKQU3527-18-93 11:43:00 Test Item Value Reference Range Interpretation Comments Segs (test code = Segs) 75.4 45.0-75.0 [facility] HospitalAzwiyfrFCLOHHPUYT3398-35-57 11:43:00 Test Item Value Reference Range Interpretation Comments Lymphocytes (test code = Lymphocytes) 17.6 20.0-40.0 [place] 951542-10-26 11:43:00 Test Item Value Reference Range Interpretation Comments Monocytes (test code = Monocytes) 5.9 2.0-12.0 [place] 951542-10-26 11:43:00 Test Item Value Reference Range Interpretation Comments Eosinophils (test code = 0.5 See_Comment [A utomated message] The Eosinophils) system which ge nerated this result tra nsmitted reference range : <=4.0. The reference r quynh was not used to int erpret this result as normal/abnormal . [facility] HospitalKnogimuLRVDWBVHJQ5285-07-00 11:43:00 Test Item Value Reference Range Interpretation Comments Basophils (test code = 0.6 See_Comment [Aut omated message] The Basophils) system which ge nerated this result tra nsmitted reference range : <=1.0. The reference r quynh was not used to int erpret this result as normal/abnormal . [facility] HospitalHylsfbtUQECQWOPOG7541-77-74 11:43:00 Test Item Value Reference Range Interpretation Comments Neutrophils # (test code = Neutrophils 8.1 1.5-8.1 #) [facility] HospitalQepbympKGBKJXAGSZ3183-08-03 11:43:00 Test Item Value Reference Range Interpretation Comments Lymphocytes # (test code = Lymphocytes 1.9 1.0-5.5 #) [place] 951542-10-26 11:43:00 Test Item Value Reference Range Interpretation Comments Monocytes # (test code 0.6 See_Comment [Aut omated message] The = Monocytes #) system which generated this result tra nsmitted reference range : <=0.8. The reference r quynh was not used to int erpret this result as normal/abnormal . [place] [address]-10-26 11:43:00 Test Item Value Reference Range Interpretation Comments Basophils # (test code 0.1 See_Comment [Aut omated message] The = Basophils #) system which generated this result tra nsmitted reference range : <=0.2. The reference r quynh was not used to int erpret this result as normal/abnormal . [facility] HospitalKljwvtnWZVDRFNUHW9721-04-22 11:43:00 Test Item Value Reference Range Interpretation Comments Microcyte (test code = 1+ *ABN*(04/24/22 Microcyte) 6:43 AM) [place] [address]-10-26 11:43:00 Test Item Value Reference Range Interpretation Comments WBC (test code = WBC) 10.8 3.7-10.4 [place] [address]-10-26 11:43:00 Test Item Value Reference Range Interpretation Comments RBC (test code = RBC) 3.62 4.20-5.40 [place] 951542-10-26 11:43:00 Test Item Value Reference Range Interpretation Comments Hgb (test code = Hgb) 9.7 12.0-16.0 [place] [address]-10-26 11:43:00 Test Item Value Reference Range Interpretation Comments Hct (test code = Hct) 28.6 36.0-48.0 [place] 951542-10-26 11:43:00 Test Item Value Reference Range Interpretation Comments MCV (test code = MCV) 78.9 80.0-98.0 [facility] HospitalZowygkhXCGWGVRGHC8670-95-70 11:43:00 Test Item Value Reference Range Interpretation Comments MCH (test code = MCH) 26.9 pg 27.0-31.0 [facility] HospitalAwljzbaGGOCVCMBDA5908-11-46 11:43:00 Test Item Value Reference Range Interpretation Comments MCHC (test code = MCHC) 34.1 32.0-36.0 [place] 951542-10-26 11:43:00 Test Item Value Reference Range Interpretation Comments RDW (test code = RDW) 16.3 11.5-14.5 [place] 951542-10-26 11:43:00 Test Item Value Reference Range Interpretation Comments Platelet (test code = Platelet) 242 133-450 [facility] HospitalJsuylidDAKVRMCBLK0966-24-62 11:43:00 Test Item Value Reference Range Interpretation Comments MPV (test code = MPV) 8.7 7.4-10.4 [place] 951542-10-24 10:10:00 Test Item Value Reference Range Interpretation Comments Eosinophils # (test code 0.3 See_Comment [A utomated message] The = Eosinophils #) system [employer] generated this result tra nsmitted reference range : <=0.5. The reference r quynh was not used to int erpret this result as normal/abnormal . [facility] HospitalIeoivceKQLUZPIFRL3052-40-83 10:10:00 Test Item Value Reference Range Interpretation Comments Eosinophils # (test code 0.3 See_Comment [A utomated message] The = Eosinophils #) system [employer] generated this result tra nsmitted reference range : <=0.5. The reference r quynh was not used to int erpret this result as normal/abnormal . [place] 951542-10-24 10:10:00 Test Item Value Reference Range Interpretation Comments Eosinophils # (test code 0.3 See_Comment [A utomated message] The = Eosinophils #) system [employer] [place] generated this result tra nsmitted reference range : <=0.5. The reference r quynh was not used to int erpret this result as normal/abnormal . [place] 951542-10-24 10:10:00 Test Item Value Reference Range Interpretation Comments Eosinophils # (test code 0.3 See_Comment [A utomated message] The = Eosinophils #) system [employer] generated this result tra nsmitted reference range : <=0.5. The reference r quynh was not used to int erpret this result as normal/abnormal . [facility] HospitalFknsafxCGYSYAWRQD3304-55-19 10:10:00 Test Item Value Reference Range Interpretation Comments Eosinophils # (test code 0.3 See_Comment [A utomated message] The = Eosinophils #) system [employer] generated this result tra nsmitted reference range : <=0.5. The reference r quynh was not used to int erpret this result as normal/abnormal . [facility]SaxalpzNSYTCF4547-10-13 21:04:09 Test Item Value Reference Range Interpretation Comments RADRPT (test PROCEDURE: Non-tunneled central code = venous catheter RADRPT) placementProcedural PersonnelAttending physician(s): Dylan Crandall physician(s): NoneResident physician(s): NoneAdvanmerit [facility] practice provider(s): NonePre-procedure diagnosis: Mediastinal mass, chemotherapy needs to be initiated, central venous catheter insertion is requested.Post-procedure diagnosis: SameIndication: As aboveAdditional clinical history: NoneComplications: No immediate complications.IMPRESSION:Insertio n of right-sided non-tunneled triple--lumen central venous catheter, with tip in the expected location of the cavoatrial junction.PLAN: The catheter may be used immediately. PROCEDURE SUMMARY:- Venous access with ultrasound guidance- Non-tunneled central venous catheter insertion with fluoroscopic guidance- Additional procedure(s): NonePROCEDURE DETAILS:Pre-procedureHistory and imaging of central venous access reviewed (QCDR): Yes Consent: Informed consent for the procedure including risks, benefits and alternatives was obtained and time-out was performed prior to the procedure.Preparation (MIPS): The site was prepared and draped using all elements of maximal sterile barrier technique including sterile gloves, sterile gown, cap, mask, large sterile sheet, sterile ultrasound probe cover, hand hygiene and cutaneous antisepsis with 2% chlorhexidine. Medical reason for site preparation exception (MIPS): Not applicableAnesthesia/sedationLeve l of anesthesia/sedation: Moderate sedation (conscious sedation)Anesthesia/sedation administered by: Independent trained observer under attending supervision with continuous monitoring of the patient's level of consciousness and physiologic statusTotal intra-service sedation time (minutes): 30AccessLocal anesthesia was administered. The vessel was sonographically evaluated and determined to be patent. Real time ultrasound was used to visualize needle entry into the vessel and a permanent image stored in PACS imaging system permanently in the patient's permanent record.Vein accessed: Internal jugular vein, patentAccess technique: Ultrasound-guided venous accessVenographyIndication for venography: Not performedVein catheterized: Not applicableFindings: Not applicableCatheter placementThe access site was dilated and the catheter was placed into the vein over a wire under fluoroscopic guidance. The catheter tip location was fluoroscopically verified and a permanent image was stored.. A sterile dressing was applied.Catheter placed: Triple-lumen central venous catheterCatheter size ([place]): 7Catheter length (cm): 20Catheter tip position: 2.5 vertebral body units (VBUs) below the marycarmen.Unique Device Identifier: Not availableCatheter flush: Heparinized salineCatheter securement technique: 0-0 silk sutureContrastContrast agent: NoneContrast volume (mL): 0Radiation DoseFluoroscopy time (min): 0.1 Kerma area product (mgy-cm2): 125 Images: 4Additional DetailsAdditional description of procedure: NoneEquipment details: NoneSpecimens removed: NoneEstimated blood loss (mL): Less than 10Standardized report: [email or web address] estationSigner name: HANY Espinosa attest that I was present for the entire procedure. I reviewed the stored images and agree with the report as written. [facility] HospitalEorjfcwHBPKHU3514-76-97 21:04:09 Test Item Value Reference Range Interpretation Comments RADRPT (test PROCEDURE: Non-tunneled central code = venous catheter RADRPT) placementProcedural PersonnelAttending physician(s): Dylan Crandall physician(s): NoneResident physician(s): NoneAdvanced practice provider(s): NonePre-procedure diagnosis: Mediastinal mass, chemotherapy needs to be initiated, central venous catheter insertion is requested.Post-procedure diagnosis: SameIndication: As aboveAdditional clinical history: NoneComplications: No immediate complications.IMPRESSION:Insertio n of right-sided non-tunneled triple--lumen central venous catheter, with tip in the expected location of the cavoatrial junction.PLAN: The catheter may be used immediately. PROCEDURE SUMMARY:- Venous access with ultrasound guidance- Non-tunneled central venous catheter insertion with fluoroscopic guidance- Additional procedure(s): NonePROCEDURE DETAILS:Pre-procedureHistory and imaging of central venous access reviewed (QCDR): Yes Consent: Informed consent for the procedure including risks, benefits and alternatives was obtained and time-out was performed prior to the procedure.Preparation (MIPS): The site was prepared and draped using all elements of maximal sterile barrier technique including sterile gloves, sterile gown, cap, mask, large sterile sheet, sterile ultrasound probe cover, hand hygiene and cutaneous antisepsis with 2% chlorhexidine. Medical reason for site preparation exception (MIPS): Not applicableAnesthesia/sedationLeve l of anesthesia/sedation: Moderate sedation (conscious sedation)Anesthesia/sedation administered by: Independent trained observer under attending supervision with continuous monitoring of the patient's level of consciousness and physiologic statusTotal intra-service sedation time (minutes): 30AccessLocal anesthesia was administered. The vessel was sonographically evaluated and determined to be patent. Real time ultrasound was used to visualize needle entry into the vessel and a permanent image stored in PACS imaging system permanently in the patient's permanent record.Vein accessed: Internal jugular vein, patentAccess technique: Ultrasound-guided venous accessVenographyIndication for venography: Not performedVein catheterized: Not applicableFindings: Not applicableCatheter placementThe access site was dilated and the catheter was placed into the vein over a wire under fluoroscopic guidance. The catheter tip location was fluoroscopically verified and a permanent image was stored.. A sterile dressing was applied.Catheter placed: Triple-lumen central venous catheterCatheter size ([place] Citizen): 7Catheter length (cm): 20Catheter tip position: 2.5 vertebral body units (VBUs) below the marycarmen.Unique Device Identifier: Not availableCatheter flush: Heparinized salineCatheter securement technique: 0-0 silk sutureContrastContrast agent: NoneContrast volume (mL): 0Radiation DoseFluoroscopy time (min): 0.1 Kerma area product (mgy-cm2): 125 Images: 4Additional DetailsAdditional description of procedure: NoneEquipment details: NoneSpecimens removed: NoneEstimated blood loss (mL): Less than 10Standardized report: [email or web address] estationSigner name: HANY Espinosa attest that I was present for the entire procedure. I reviewed the stored images and agree with the report as written. [facility]stOdtsmarTHMRDI3209-50-20 21:04:09 Test Item Value Reference Range Interpretation Comments RADRPT (test PROCEDURE: Non-tunneled central code = venous catheter RADRPT) placementProcedural PersonnelAttending physician(s): Dylan Crandall physician(s): NoneResident physician(s): NoneAdvanced practice provider(s): NonePre-procedure diagnosis: Mediastinal mass, chemotherapy needs to be initiated, central venous catheter insertion is requested.Post-procedure diagnosis: SameIndication: As aboveAdditional clinical history: NoneComplications: No immediate complications.IMPRESSION:Insertio n of right-sided non-tunneled triple--lumen central venous catheter, with tip in the expected location of the cavoatrial junction.PLAN: The catheter may be used immediately. PROCEDURE SUMMARY:- Venous access with ultrasound guidance- Non-tunneled central venous catheter insertion with fluoroscopic guidance- Additional procedure(s): NonePROCEDURE DETAILS:Pre-procedureHistory and imaging of central venous access reviewed (QCDR): Yes Consent: Informed consent for the procedure including risks, benefits and alternatives was obtained and time-out was performed prior to the procedure.Preparation (MIPS): The site was prepared and draped using all elements of maximal sterile barrier technique including sterile gloves, sterile gown, cap, mask, large sterile sheet, sterile ultrasound probe cover, hand hygiene and cutaneous antisepsis with 2% chlorhexidine. Medical reason for site preparation exception (MIPS): Not applicableAnesthesia/sedationLeve l of anesthesia/sedation: Moderate sedation (conscious sedation)Anesthesia/sedation administered by: Independent trained observer under attending supervision with continuous monitoring of the patient's level of consciousness and physiologic statusTotal intra-service sedation time (minutes): 30AccessLocal anesthesia was administered. The vessel was sonographically evaluated and determined to be patent. Real time ultrasound was used to visualize needle entry into the vessel and a permanent image stored in PACS imaging system permanently in the patient's permanent record.Vein accessed: Internal jugular vein, patentAccess technique: Ultrasound-guided venous accessVenographyIndication for venography: Not performedVein catheterized: Not applicableFindings: Not applicableCatheter placementThe access site was dilated and the catheter was placed into the vein over a wire under fluoroscopic guidance. The catheter tip location was fluoroscopically verified and a permanent image was stored.. A sterile dressing was applied.Catheter placed: Triple-lumen central venous catheterCatheter size ([place] Citizen): 7Catheter length (cm): 20Catheter tip position: 2.5 vertebral body units (VBUs) below the marycarmen.Unique Device Identifier: Not availableCatheter flush: Heparinized salineCatheter securement technique: 0-0 silk sutureContrastContrast agent: NoneContrast volume (mL): 0Radiation DoseFluoroscopy time (min): 0.1 Kerma area product (mgy-cm2): 125 Images: 4Additional DetailsAdditional description of procedure: NoneEquipment details: NoneSpecimens removed: NoneEstimated blood loss (mL): Less than 10Standardized report: [email or web address] estationSigner name: HANY Espinosa attest that I was present for the entire procedure. I reviewed the stored images and agree with the report as written. [facility] [id number] 21:04:09 Test Item Value Reference Range Interpretation Comments RADRPT (test PROCEDURE: Non-tunneled central code = venous catheter RADRPT) placementProcedural PersonnelAttending physician(s): Dylan Crandall physician(s): NoneResident physician(s): NoneAdvanced practice provider(s): NonePre-procedure diagnosis: Mediastinal mass, chemotherapy needs to be initiated, central venous catheter insertion is requested.Post-procedure diagnosis: SameIndication: As aboveAdditional clinical history: NoneComplications: No immediate complications.IMPRESSION:Insertio n of right-sided non-tunneled triple--lumen central venous catheter, with tip in the expected location of the cavoatrial junction.PLAN: The catheter may be used immediately. PROCEDURE SUMMARY:- Venous access with ultrasound guidance- Non-tunneled central venous catheter insertion with fluoroscopic guidance- Additional procedure(s): NonePROCEDURE DETAILS:Pre-procedureHistory and imaging of central venous access reviewed (QCDR): Yes Consent: Informed consent for the procedure including risks, benefits and alternatives was obtained and time-out was performed prior to the procedure.Preparation (MIPS): The site was prepared and draped using all elements of maximal sterile barrier technique including sterile gloves, sterile gown, cap, mask, large sterile sheet, sterile ultrasound probe cover, hand hygiene and cutaneous antisepsis with 2% chlorhexidine. Medical reason for site preparation exception (MIPS): Not applicableAnesthesia/sedationLeve l of anesthesia/sedation: Moderate sedation (conscious sedation)Anesthesia/sedation administered by: Independent trained observer under attending supervision with continuous monitoring of the patient's level of consciousness and physiologic statusTotal intra-service sedation time (minutes): 30AccessLocal anesthesia was administered. The vessel was sonographically evaluated and determined to be patent. Real time ultrasound was used to visualize needle entry into the vessel and a permanent image stored in PACS imaging system permanently in the patient's permanent record.Vein accessed: Internal jugular vein, patentAccess technique: Ultrasound-guided venous accessVenographyIndication for venography: Not performedVein catheterized: Not applicableFindings: Not applicableCatheter placementThe access site was dilated and the catheter was placed into the vein over a wire under fluoroscopic guidance. The catheter tip location was fluoroscopically verified and a permanent image was stored.. A sterile dressing was applied.Catheter placed: Triple-lumen central venous catheterCatheter size ([place] Citizen): 7Catheter length (cm): 20Catheter tip position: 2.5 vertebral body units (VBUs) below the marycarmen.Unique Device Identifier: Not availableCatheter flush: Heparinized salineCatheter securement technique: 0-0 silk sutureContrastContrast agent: NoneContrast volume (mL): 0Radiation DoseFluoroscopy time (min): 0.1 Kerma area product (mgy-cm2): 125 Images: 4Additional DetailsAdditional description of procedure: NoneEquipment details: NoneSpecimens removed: NoneEstimated blood loss (mL): Less than 10Standardized report: [email or web address] estationSigner name: HANY Espinosa attest that I was present for the entire procedure. I reviewed the stored images and agree with the report as written. [facility] [id number] 21:04:09 Test Item Value Reference Range Interpretation Comments RADRPT (test PROCEDURE: Non-tunneled central code = venous catheter RADRPT) placementProcedural PersonnelAttending physician(s): Dylan Crandall physician(s): NoneResident physician(s): NoneAdvanced practice provider(s): NonePre-procedure diagnosis: Mediastinal mass, chemotherapy needs to be initiated, central venous catheter insertion is requested.Post-procedure diagnosis: SameIndication: As aboveAdditional clinical history: NoneComplications: No immediate complications.IMPRESSION:Insertio n of right-sided non-tunneled triple--lumen central venous catheter, with tip in the expected location of the cavoatrial junction.PLAN: The catheter may be used immediately. PROCEDURE SUMMARY:- Venous access with ultrasound guidance- Non-tunneled central venous catheter insertion with fluoroscopic guidance- Additional procedure(s): NonePROCEDURE DETAILS:Pre-procedureHistory and imaging of central venous access reviewed (QCDR): Yes Consent: Informed consent for the procedure including risks, benefits and alternatives was obtained and time-out was performed prior to the procedure.Preparation (MIPS): The site was prepared and draped using all elements of maximal sterile barrier technique including sterile gloves, sterile gown, cap, mask, large sterile sheet, sterile ultrasound probe cover, hand hygiene and cutaneous antisepsis with 2% chlorhexidine. Medical reason for site preparation exception (MIPS): Not applicableAnesthesia/sedationLeve l of anesthesia/sedation: Moderate sedation (conscious sedation)Anesthesia/sedation administered by: Independent trained observer under attending supervision with continuous monitoring of the patient's level of consciousness and physiologic statusTotal intra-service sedation time (minutes): 30AccessLocal anesthesia was administered. The vessel was sonographically evaluated and determined to be patent. Real time ultrasound was used to visualize needle entry into the vessel and a permanent image stored in PACS imaging system permanently in the patient's permanent record.Vein accessed: Internal jugular vein, patentAccess technique: Ultrasound-guided venous accessVenographyIndication for venography: Not performedVein catheterized: Not applicableFindings: Not applicableCatheter placementThe access site was dilated and the catheter was placed into the vein over a wire under fluoroscopic guidance. The catheter tip location was fluoroscopically verified and a permanent image was stored.. A sterile dressing was applied.Catheter placed: Triple-lumen central venous catheterCatheter size ([place] Citizen): 7Catheter length (cm): 20Catheter tip position: 2.5 vertebral body units (VBUs) below the marycarmen.Unique Device Identifier: Not availableCatheter flush: Heparinized salineCatheter securement technique: 0-0 silk sutureContrastContrast agent: NoneContrast volume (mL): 0Radiation DoseFluoroscopy time (min): 0.1 Kerma area product (mgy-cm2): 125 Images: 4Additional DetailsAdditional description of procedure: NoneEquipment details: NoneSpecimens removed: NoneEstimated blood loss (mL): Less than 10Standardized report: [email or web address] estationSigner name: HANY Espinosa attest that I was present for the entire procedure. I reviewed the stored images and agree with the report as written. [id number] 22:08:14 Test Item Value Reference Range Interpretation Comments RADRPT (test Exam: Abdomen AP DXReason for code = RADRPT) Exam: - right femoral central line insertionComparison Exam: CT scan 04/18/2022iscussion:Central venous catheter is seen entering the right inguinal region. The tip is seen overlying the expected inferior IVC. No dilated loops of bowel or abnormal air-fluid level patterns. Overlying skeletal structures are unremarkable.Impression:1. Central venous catheter is seen entering the right inguinal region. The tip is seen overlying the expected inferior IVC. [id number] 22:08:14 Test Item Value Reference Range Interpretation Comments RADRPT (test Exam: Abdomen AP DXReason for code = RADRPT) Exam: - right femoral central line insertionComparison Exam: CT scan 04/18/2022iscussion:Central venous catheter is seen entering the right inguinal region. The tip is seen overlying the expected inferior IVC. No dilated loops of bowel or abnormal air-fluid level patterns. Overlying skeletal structures are unremarkable.Impression:1. Central venous catheter is seen entering the right inguinal region. The tip is seen overlying the expected inferior IVC. [id number] 22:08:14 Test Item Value Reference Range Interpretation Comments RADRPT (test Exam: Abdomen AP DXReason for code = RADRPT) Exam: - right femoral central line insertionComparison Exam: CT scan 04/18/2022iscussion:Central venous catheter is seen entering the right inguinal region. The tip is seen overlying the expected inferior IVC. No dilated loops of bowel or abnormal air-fluid level patterns. Overlying skeletal structures are unremarkable.Impression:1. Central venous catheter is seen entering the right inguinal region. The tip is seen overlying the expected inferior IVC. [id number] 22:08:14 Test Item Value Reference Range Interpretation Comments RADRPT (test Exam: Abdomen AP DXReason for code = RADRPT) Exam: - right femoral central line insertionComparison Exam: CT scan 2Discussion:Central venous catheter is seen entering the right inguinal region. The tip is seen overlying the expected inferior IVC. No dilated loops of bowel or abnormal air-fluid level patterns. Overlying skeletal structures are unremarkable.Impression:1. Central venous catheter is seen entering the right inguinal region. The tip is seen overlying the expected inferior IVC. [id number] 22:08:14 Test Item Value Reference Range Interpretation Comments RADRPT (test Exam: Abdomen AP DXReason for code = RADRPT) Exam: - right femoral central line insertionComparison Exam: CT scan 2Discussion:Central venous catheter is seen entering the right inguinal region. The tip is seen overlying the expected inferior IVC. No dilated loops of bowel or abnormal air-fluid level patterns. Overlying skeletal structures are unremarkable.Impression:1. Central venous catheter is seen entering the right inguinal region. The tip is seen overlying the expected inferior IVC. [id number] 19:23:01 Test Item Value Reference Range Interpretation Comments RADRPT (test code EXAM: Abdomen/Pelvis w IV = RADRPT) contrast CTDATE: 04/17/2022 21:32.INDICATION: - Assess further disease.COMPARISON: Chest CTA 04/11/2022.TECHNIQUE: Volumetric CT acquisition of the abdomen and pelvis after the administration of intravenous contrast. 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 No radiopaque gallstones identified.Adrenals: Unremarkable.Spleen: Unremarkable.Pancreas: Unremarkable.Kidneys and Ureters: Subcentimeter too small to characterize hypodensity in the left lower renal pole, for which no follow-up imaging is recommended. No hydroureteronephrosis. There is bilateral excretion of contrast on the delayed images.Bladder: Decompressed.Reproductive Organs: Not identified.Gastrointestinal Tract: No signs of obstruction. Moderate colorectal fecal retention, most pronounced in the rectum.Appendix: No evidence of acute appendicitis.Peritoneum and Retroperitoneum: No pneumoperitoneum or ascites identified.Lymph Nodes: No lymphadenopathy identified by size criteria.Vasculature: Mild aortoiliac atherosclerotic calcifications without focal aneurysm.Bones: No acute bony abnormality identified.Soft Tissues: Mildly prominent collateral vessel in the anterior abdominal wall.IMPRESSION:1. No evidence of acute abnormality or malignancy in the abdomen and pelvis. [facility] [id number] 19:23:01 Test Item Value Reference Range Interpretation Comments RADRPT (test code EXAM: Abdomen/Pelvis w IV = RADRPT) contrast CTDATE: 04/17/2022 21:32.INDICATION: - Assess further disease.COMPARISON: Chest CTA 04/11/2022.TECHNIQUE: Volumetric CT acquisition of the abdomen and pelvis after the administration of intravenous contrast. 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 No radiopaque gallstones identified.Adrenals: Unremarkable.Spleen: Unremarkable.Pancreas: Unremarkable.Kidneys and Ureters: Subcentimeter too small to characterize hypodensity in the left lower renal pole, for which no follow-up imaging is recommended. No hydroureteronephrosis. There is bilateral excretion of contrast on the delayed images.Bladder: Decompressed.Reproductive Organs: Not identified.Gastrointestinal Tract: No signs of obstruction. Moderate colorectal fecal retention, most pronounced in the rectum.Appendix: No evidence of acute appendicitis.Peritoneum and Retroperitoneum: No pneumoperitoneum or ascites identified.Lymph Nodes: No lymphadenopathy identified by size criteria.Vasculature: Mild aortoiliac atherosclerotic calcifications without focal aneurysm.Bones: No acute bony abnormality identified.Soft Tissues: Mildly prominent collateral vessel in the anterior abdominal wall.IMPRESSION:1. No evidence of acute abnormality or malignancy in the abdomen and pelvis. [facility] [id number] 19:23:01 Test Item Value Reference Range Interpretation Comments RADRPT (test code EXAM: Abdomen/Pelvis w IV = RADRPT) contrast CTDATE: 04/17/2022 21:32.INDICATION: - Assess further disease.COMPARISON: Chest CTA 04/11/2022.TECHNIQUE: Volumetric CT acquisition of the abdomen and pelvis after the administration of intravenous contrast. 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 No radiopaque gallstones identified.Adrenals: Unremarkable.Spleen: Unremarkable.Pancreas: Unremarkable.Kidneys and Ureters: Subcentimeter too small to characterize hypodensity in the left lower renal pole, for which no follow-up imaging is recommended. No hydroureteronephrosis. There is bilateral excretion of contrast on the delayed images.Bladder: Decompressed.Reproductive Organs: Not identified.Gastrointestinal Tract: No signs of obstruction. Moderate colorectal fecal retention, most pronounced in the rectum.Appendix: No evidence of acute appendicitis.Peritoneum and Retroperitoneum: No pneumoperitoneum or ascites identified.Lymph Nodes: No lymphadenopathy identified by size criteria.Vasculature: Mild aortoiliac atherosclerotic calcifications without focal aneurysm.Bones: No acute bony abnormality identified.Soft Tissues: Mildly prominent collateral vessel in the anterior abdominal wall.IMPRESSION:1. No evidence of acute abnormality or malignancy in the abdomen and pelvis. [id number] 19:23:01 Test Item Value Reference Range Interpretation Comments RADRPT (test code EXAM: Abdomen/Pelvis w IV = RADRPT) contrast CTDATE: 04/17/2022 21:32.INDICATION: - Assess further disease.COMPARISON: Chest CTA 04/11/2022.TECHNIQUE: Volumetric CT acquisition of the abdomen and pelvis after the administration of intravenous contrast. 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 No radiopaque gallstones identified.Adrenals: Unremarkable.Spleen: Unremarkable.Pancreas: Unremarkable.Kidneys and Ureters: Subcentimeter too small to characterize hypodensity in the left lower renal pole, for which no follow-up imaging is recommended. No hydroureteronephrosis. There is bilateral excretion of contrast on the delayed images.Bladder: Decompressed.Reproductive Organs: Not identified.Gastrointestinal Tract: No signs of obstruction. Moderate colorectal fecal retention, most pronounced in the rectum.Appendix: No evidence of acute appendicitis.Peritoneum and Retroperitoneum: No pneumoperitoneum or ascites identified.Lymph Nodes: No lymphadenopathy identified by size criteria.Vasculature: Mild aortoiliac atherosclerotic calcifications without focal aneurysm.Bones: No acute bony abnormality identified.Soft Tissues: Mildly prominent collateral vessel in the anterior abdominal wall.IMPRESSION:1. No evidence of acute abnormality or malignancy in the abdomen and pelvis. [facility] [id number] 19:23:01 Test Item Value Reference Range Interpretation Comments RADRPT (test code EXAM: Abdomen/Pelvis w IV = RADRPT) contrast CTDATE: 04/17/2022 21:32.INDICATION: - Assess further disease.COMPARISON: Chest CTA 04/11/2022.TECHNIQUE: Volumetric CT acquisition of the abdomen and pelvis after the administration of intravenous contrast. 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 No radiopaque gallstones identified.Adrenals: Unremarkable.Spleen: Unremarkable.Pancreas: Unremarkable.Kidneys and Ureters: Subcentimeter too small to characterize hypodensity in the left lower renal pole, for which no follow-up imaging is recommended. No hydroureteronephrosis. There is bilateral excretion of contrast on the delayed images.Bladder: Decompressed.Reproductive Organs: Not identified.Gastrointestinal Tract: No signs of obstruction. Moderate colorectal fecal retention, most pronounced in the rectum.Appendix: No evidence of acute appendicitis.Peritoneum and Retroperitoneum: No pneumoperitoneum or ascites identified.Lymph Nodes: No lymphadenopathy identified by size criteria.Vasculature: Mild aortoiliac atherosclerotic calcifications without focal aneurysm.Bones: No acute bony abnormality identified.Soft Tissues: Mildly prominent collateral vessel in the anterior abdominal wall.IMPRESSION:1. No evidence of acute abnormality or malignancy in the abdomen and pelvis. [facility] Ho[id number] 05:31:00 Test Item Value Reference Range Interpretation Comments LDH (test code = LDH) 201 98-192 [facility] HospitalLduewzwKPNCRVJFB0010-72-05 05:31:00 Test Item Value Reference Range Interpretation Comments Uric Acid (test code = Uric Acid) 3.6 2.5-7.0 [facility] HospitalKcqzsdwYTHUKWJKE3628-03-44 05:31:00 Test Item Value Reference Range Interpretation Comments Magnesium Lvl (test code = Magnesium 2.0 1.8-2.4 Lvl) [facility] HospitalNudznnlDTZTGRRXP3826-34-67 05:31:00 Test Item Value Reference Range Interpretation Comments Phosphorus (test code = Phosphorus) 3.9 2.5-4.5 [facility] HospitalDclbpwoLMVEHJOQR1055-33-62 05:31:00 Test Item Value Reference Range Interpretation Comments LDH (test code = LDH) 201 98-192 [facility] HospitalQdrumfzQJHSUXFFX3466-99-18 05:31:00 Test Item Value Reference Range Interpretation Comments Uric Acid (test code = Uric Acid) 3.6 2.5-7.0 [facility] HospitalRujrjbwXXDFXXJSQ4577-07-03 05:31:00 Test Item Value Reference Range Interpretation Comments Magnesium Lvl (test code = Magnesium 2.0 1.8-2.4 Lvl) [facility] HospitalTpgmmnlLDWPAIIAY0542-78-78 05:31:00 Test Item Value Reference Range Interpretation Comments Phosphorus (test code = Phosphorus) 3.9 2.5-4.5 [facility] HospitalRxmhahzJXNCWGHJV4164-77-63 05:31:00 Test Item Value Reference Range Interpretation Comments LDH (test code = LDH) 201 98- [facility] HospitalHzdowgmWJRNXYOYW9421-50-81 05:31:00 Test Item Value Reference Range Interpretation Comments Uric Acid (test code = Uric Acid) 3.6 2.5-7.0 [facility] HospitalPnzbfpuUDQDVUCEL2833-62-23 05:31:00 Test Item Value Reference Range Interpretation Comments Magnesium Lvl (test code = Magnesium 2.0 1.8-2.4 Lvl) [facility] HospitalFufkhlkJGNQGEPDD0556-35-02 05:31:00 Test Item Value Reference Range Interpretation Comments Phosphorus (test code = Phosphorus) 3.9 2.5-4.5 [facility] HospitalIhuehyeBEPQSLCOL6248-19-29 05:31:00 Test Item Value Reference Range Interpretation Comments LDH (test code = LDH) 201 [facility] HospitalTwpeujnNYLEQMBHX3514-08-02 05:31:00 Test Item Value Reference Range Interpretation Comments Uric Acid (test code = Uric Acid) 3.6 2.5-7.0 [facility] HospitalDnnfdnvTLBWCFMZD2093-53-66 05:31:00 Test Item Value Reference Range Interpretation Comments Magnesium Lvl (test code = Magnesium 2.0 1.8-2.4 Lvl) [facility] HospitalPlldiftIBBBVLMAH2337-25-09 05:31:00 Test Item Value Reference Range Interpretation Comments Phosphorus (test code = Phosphorus) 3.9 2.5-4.5 [facility] HospitalJgznnnsULTQUOKEL3514-39-92 05:31:00 Test Item Value Reference Range Interpretation Comments LDH (test code = LDH) 201 -192 [facility] HospitalRfqgptyYRCNJTZXP3497-67-20 05:31:00 Test Item Value Reference Range Interpretation Comments Uric Acid (test code = Uric Acid) 3.6 2.5-7.0 [place] [id number] 05:31:00 Test Item Value Reference Range Interpretation Comments Magnesium Lvl (test code = Magnesium 2.0 1.8-2.4 Lvl) [facility]1231[facility] 05:31:00 Test Item Value Reference Range Interpretation Comments Phosphorus (test code = Phosphorus) 3.9 2.5-4.5 [facility]KnmsaqlXVHJQV5990-29-20 18:39:54 Test Item Value Reference Range Interpretation Comments RADRPT (test code = Procedure(s):CT-guided RADRPT) mediastinal mass biopsyDate of Procedure: 2Operators: ESTEFANY Gauthieredications: 1% Lidocaine SQ, Versed 0.5 mg IV, Fentanyl 50 mcg IVDLP: 1254 mGy*cm Dose reduction techniques were performed per department protocol (AEC, mA/Kv adjustment by patient size, and/or iterative reconstructive technique were used per departmental dose-optimization program)Estimated blood loss: MinimalSpecimen: tissue cores sent to pathologyComplications: NoneLevel of anesthesia/sedation: Moderate sedation (conscious sedation)Anesthesia/sedati on administered by: Independent trained observer under attending supervision with continuous monitoring of the patient's level of consciousness and physiologic statusTotal intra-service sedation time (minutes): 30Pre-procedure diagnosis: Anterior mediastinal massPost-procedure diagnosis: SameClinical History/Indication: Anterior mediastinal massProcedure and Findings:Following a discussion of the risks, benefits, indications, and alternatives to treatment, appropriate informed consent was obtained. The patient was then brought to the interventional radiology suite and placed supine on the table. Sterile barrier technique was followed including: Cap and mask, sterile gown, sterile gloves, and large sterile sheet. Hand hygiene, and 2% chlorhexidine for cutaneous antisepsis (or acceptable alternative antiseptics, per current guideline). A timeout was performed per hospital universal protocol policy to confirm the correct patient, site and procedure to be performed.Preliminary CT was performed which demonstrates anterior mediastinal mass. 1% lidocaine was infiltrated into the subcutaneous tissues for local anesthetic. Under intermittent CT guidance, a 17-gauge guide needle was advanced into the lesion. The stylette was removed, and an 18-gauge core biopsy needle was advanced coaxially. A total of 3 core samples were obtained. The needle was removed and a sterile dressing was applied. Throughout the procedure, the patient was monitored by a radiology nurse for cardiac rhythm and oxygen saturation which remained stable. The patient tolerated the procedure well and left interventional radiology in stable condition.Impression:Succe ssful anterior mediastinal mass biopsy. [facility]yamb[facility]FUJWU0363-88-81 18:39:54 Test Item Value Reference Range Interpretation Comments RADRPT (test code = Procedure(s):CT-guided RADRPT) mediastinal mass biopsyDate of Procedure: 2Operators: Hermilo Xie MDMedications: 1% Lidocaine SQ, Versed 0.5 mg IV, Fentanyl 50 mcg IVDLP: 1254 mGy*cm Dose reduction techniques were performed per department protocol (AEC, mA/Kv adjustment by patient size, and/or iterative reconstructive technique were used per departmental dose-optimization program)Estimated blood loss: MinimalSpecimen: tissue cores sent to pathologyComplications: NoneLevel of anesthesia/sedation: Moderate sedation (conscious sedation)Anesthesia/sedati on administered by: Independent trained observer under attending supervision with continuous monitoring of the patient's level of consciousness and physiologic statusTotal intra-service sedation time (minutes): 30Pre-procedure diagnosis: Anterior mediastinal massPost-procedure diagnosis: SameClinical History/Indication: Anterior mediastinal massProcedure and Findings:Following a discussion of the risks, benefits, indications, and alternatives to treatment, appropriate informed consent was obtained. The patient was then brought to the interventional radiology suite and placed supine on the table. Sterile barrier technique was followed including: Cap and mask, sterile gown, sterile gloves, and large sterile sheet. Hand hygiene, and 2% chlorhexidine for cutaneous antisepsis (or acceptable alternative antiseptics, per current guideline). A timeout was performed per hospital universal protocol policy to confirm the correct patient, site and procedure to be performed.Preliminary CT was performed which demonstrates anterior mediastinal mass. 1% lidocaine was infiltrated into the subcutaneous tissues for local anesthetic. Under intermittent CT guidance, a 17-gauge guide needle was advanced into the lesion. The stylette was removed, and an 18-gauge core biopsy needle was advanced coaxially. A total of 3 core samples were obtained. The needle was removed and a sterile dressing was applied. Throughout the procedure, the patient was monitored by a radiology nurse for cardiac rhythm and oxygen saturation which remained stable. The patient tolerated the procedure well and left interventional radiology in stable condition.Impression:Succe ssful anterior mediastinal mass biopsy. [id number] 18:39:54 Test Item Value Reference Range Interpretation Comments RADRPT (test code = Procedure(s):CT-guided RADRPT) mediastinal mass biopsyDate of Procedure: 04/12/2022perators: ESTEFANY Gauthieredications: 1% Lidocaine SQ, Versed 0.5 mg IV, Fentanyl 50 mcg IVDLP: 1254 mGy*cm Dose reduction techniques were performed per department protocol (AEC, mA/Kv adjustment by patient size, and/or iterative reconstructive technique were used per departmental dose-optimization program)Estimated blood loss: MinimalSpecimen: tissue cores sent to pathologyComplications: NoneLevel of anesthesia/sedation: Moderate sedation (conscious sedation)Anesthesia/sedati on administered by: Independent trained observer under attending supervision with continuous monitoring of the patient's level of consciousness and physiologic statusTotal intra-service sedation time (minutes): 30Pre-procedure diagnosis: Anterior mediastinal massPost-procedure diagnosis: SameClinical History/Indication: Anterior mediastinal massProcedure and Findings:Following a discussion of the risks, benefits, indications, and alternatives to treatment, appropriate informed consent was obtained. The patient was then brought to the interventional radiology suite and placed supine on the table. Sterile barrier technique was followed including: Cap and mask, sterile gown, sterile gloves, and large sterile sheet. Hand hygiene, and 2% chlorhexidine for cutaneous antisepsis (or acceptable alternative antiseptics, per current guideline). A timeout was performed per hospital universal protocol policy to confirm the correct patient, site and procedure to be performed.Preliminary CT was performed which demonstrates anterior mediastinal mass. 1% lidocaine was infiltrated into the subcutaneous tissues for local anesthetic. Under intermittent CT guidance, a 17-gauge guide needle was advanced into the lesion. The stylette was removed, and an 18-gauge core biopsy needle was advanced coaxially. A total of 3 core samples were obtained. The needle was removed and a sterile dressing was applied. Throughout the procedure, the patient was monitored by a radiology nurse for cardiac rhythm and oxygen saturation which remained stable. The patient tolerated the procedure well and left interventional radiology in stable condition.Impression:Succe ssful anterior mediastinal mass biopsy. [facility] [id number] 18:39:54 Test Item Value Reference Range Interpretation Comments RADRPT (test code = Procedure(s):CT-guided RADRPT) mediastinal mass biopsyDate of Procedure: 2Operators: ESTEFANY Gauthieredications: 1% Lidocaine SQ, Versed 0.5 mg IV, Fentanyl 50 mcg IVDLP: 1254 mGy*cm Dose reduction techniques were performed per department protocol (AEC, mA/Kv adjustment by patient size, and/or iterative reconstructive technique were used per departmental dose-optimization program)Estimated blood loss: MinimalSpecimen: tissue cores sent to pathologyComplications: NoneLevel of anesthesia/sedation: Moderate sedation (conscious sedation)Anesthesia/sedati on administered by: Independent trained observer under attending supervision with continuous monitoring of the patient's level of consciousness and physiologic statusTotal intra-service sedation time (minutes): 30Pre-procedure diagnosis: Anterior mediastinal massPost-procedure diagnosis: SameClinical History/Indication: Anterior mediastinal massProcedure and Findings:Following a discussion of the risks, benefits, indications, and alternatives to treatment, appropriate informed consent was obtained. The patient was then brought to the interventional radiology suite and placed supine on the table. Sterile barrier technique was followed including: Cap and mask, sterile gown, sterile gloves, and large sterile sheet. Hand hygiene, and 2% chlorhexidine for cutaneous antisepsis (or acceptable alternative antiseptics, per current guideline). A timeout was performed per hospital universal protocol policy to confirm the correct patient, site and procedure to be performed.Preliminary CT was performed which demonstrates anterior mediastinal mass. 1% lidocaine was infiltrated into the subcutaneous tissues for local anesthetic. Under intermittent CT guidance, a 17-gauge guide needle was advanced into the lesion. The stylette was removed, and an 18-gauge core biopsy needle was advanced coaxially. A total of 3 core samples were obtained. The needle was removed and a sterile dressing was applied. Throughout the procedure, the patient was monitored by a radiology nurse for cardiac rhythm and oxygen saturation which remained stable. The patient tolerated the procedure well and left interventional radiology in stable condition.Impression:Succe ssful anterior mediastinal mass biopsy. [facility] [id number] 18:39:54 Test Item Value Reference Range Interpretation Comments RADRPT (test code = Procedure(s):CT-guided RADRPT) mediastinal mass biopsyDate of Procedure: 2Operators: ESTEFANY Gauthieredications: 1% Lidocaine SQ, Versed 0.5 mg IV, Fentanyl 50 mcg IVDLP: 1254 mGy*cm Dose reduction techniques were performed per department protocol (AEC, mA/Kv adjustment by patient size, and/or iterative reconstructive technique were used per departmental dose-optimization program)Estimated blood loss: MinimalSpecimen: tissue cores sent to pathologyComplications: NoneLevel of anesthesia/sedation: Moderate sedation (conscious sedation)Anesthesia/sedati on administered by: Independent trained observer under attending supervision with continuous monitoring of the patient's level of consciousness and physiologic statusTotal intra-service sedation time (minutes): 30Pre-procedure diagnosis: Anterior mediastinal massPost-procedure diagnosis: SameClinical History/Indication: Anterior mediastinal massProcedure and Findings:Following a discussion of the risks, benefits, indications, and alternatives to treatment, appropriate informed consent was obtained. The patient was then brought to the interventional radiology suite and placed supine on the table. Sterile barrier technique was followed including: Cap and mask, sterile gown, sterile gloves, and large sterile sheet. Hand hygiene, and 2% chlorhexidine for cutaneous antisepsis (or acceptable alternative antiseptics, per current guideline). A timeout was performed per hospital universal protocol policy to confirm the correct patient, site and procedure to be performed.Preliminary CT was performed which demonstrates anterior mediastinal mass. 1% lidocaine was infiltrated into the subcutaneous tissues for local anesthetic. Under intermittent CT guidance, a 17-gauge guide needle was advanced into the lesion. The stylette was removed, and an 18-gauge core biopsy needle was advanced coaxially. A total of 3 core samples were obtained. The needle was removed and a sterile dressing was applied. Throughout the procedure, the patient was monitored by a radiology nurse for cardiac rhythm and oxygen saturation which remained stable. The patient tolerated the procedure well and left interventional radiology in stable condition.Impression:Succe ssful anterior mediastinal mass biopsy. [facility] HospitalBqonayfYXPIKY2754-06-31 11:49:02 Test Item Value Reference Range Interpretation Comments RADRPT (test code Clinical History : , - = RADRPT) chest tubesExam : Portable AP view of the chest 04/14/2022 4:00Comparisons : Portable AP view of the chest 04/10/2022Findings : The lungs are clear without focal consolidation or pleural effusion.The heart is normal in size. The mediastinal contours are normal in appearance.The thoracic spine is age appropriate. The shoulders are unremarkable.Limited evaluation of the upper abdomen demonstrates no gross abnormalities.Impression:No acute cardiopulmonary disease [place] [id number] 11:49:02 Test Item Value Reference Range Interpretation Comments RADRPT (test code Clinical History : , - = RADRPT) chest tubesExam : Portable AP view of the chest 04/14/2022 4:00Comparisons : Portable AP view of the chest 04/10/2022Findings : The lungs are clear without focal consolidation or pleural effusion.The heart is normal in size. The mediastinal contours are normal in appearance.The thoracic spine is age appropriate. The shoulders are unremarkable.Limited evaluation of the upper abdomen demonstrates no gross abnormalities.Impression:No acute cardiopulmonary disease [place] 382282-10-16 11:49:02 Test Item Value Reference Range Interpretation Comments RADRPT (test code Clinical History : , - = RADRPT) chest tubesExam : Portable AP view of the chest 04/14/2022 4:00Comparisons : Portable AP view of the chest 04/10/2022Findings : The lungs are clear without focal consolidation or pleural effusion.The heart is normal in size. The mediastinal contours are normal in appearance.The thoracic spine is age appropriate. The shoulders are unremarkable.Limited evaluation of the upper abdomen demonstrates no gross abnormalities.Impression:No acute cardiopulmonary disease [place] [address]-10-16 11:49:02 Test Item Value Reference Range Interpretation Comments RADRPT (test code Clinical History : , - = RADRPT) chest tubesExam : Portable AP view of the chest 04/14/2022 4:00Comparisons : Portable AP view of the chest 04/10/2022Findings : The lungs are clear without focal consolidation or pleural effusion.The heart is normal in size. The mediastinal contours are normal in appearance.The thoracic spine is age appropriate. The shoulders are unremarkable.Limited evaluation of the upper abdomen demonstrates no gross abnormalities.Impression:No acute cardiopulmonary disease [place] [address]-10-16 11:49:02 Test Item Value Reference Range Interpretation Comments RADRPT (test code Clinical History : , - = RADRPT) chest tubesExam : Portable AP view of the chest 04/14/2022 4:00Comparisons : Portable AP view of the chest 04/10/2022Findings : The lungs are clear without focal consolidation or pleural effusion.The heart is normal in size. The mediastinal contours are normal in appearance.The thoracic spine is age appropriate. The shoulders are unremarkable.Limited evaluation of the upper abdomen demonstrates no gross abnormalities.Impression:No acute cardiopulmonary disease [address]10-16 09:37:00 Test Item Value Reference Range Interpretation Comments Lymphocytes # (test code = Lymphocytes 2.1 1.0-5.5 #) [address]10-16 09:37:00 Test Item Value Reference Range Interpretation Comments Monocytes # (test code 0.9 See_Comment [Aut omated message] The = Monocytes #) system which generated this result tra nsmitted reference range : <=0.8. The reference r quynh was not used to int erpret this result as normal/abnormal . [place] [address]-10-16 09:37:00 Test Item Value Reference Range Interpretation Comments Eosinophils # (test code 0.6 See_Comment [A utomated message] The = Eosinophils #) system whic h generated this result tra nsmitted reference range : <=0.5. The reference r quynh was not used to int erpret this result as normal/abnormal . [place] [address]-10-16 09:37:00 Test Item Value Reference Range Interpretation Comments Basophils # (test code 0.1 See_Comment [Aut omated message] The = Basophils #) system which generated this result tra nsmitted reference range : <=0.2. The reference r quynh was not used to int erpret this result as normal/abnormal . [facility] HospitalNinite [id number] 09:37:00 Test Item Value Reference Range Interpretation Comments Procalcitonin Lvl (test no gt See_Comment [Au tomated message] code = Procalcitonin Lvl) Th e system which generated this result transmitted ref erence range: <=0.10. The reference range was not used to interpr et this result as normal/abnormal . [place] 618542-10-16 09:37:00 Test Item Value Reference Range Interpretation Comments Glucose Lvl (test code = Glucose Lvl) 103 70-99 [place] 618542-10-16 09:37:00 Test Item Value Reference Range Interpretation Comments BUN (test code = BUN) 13 7-22 [place] [address]-10-16 09:37:00 Test Item Value Reference Range Interpretation Comments Creatinine Lvl (test code = Creatinine 0.67 0.50-1.40 Lvl) [place] [address]-10-16 09:37:00 Test Item Value Reference Range Interpretation Comments Sodium Lvl (test code = Sodium Lvl) 138 135-145 [place] [address]-10-16 09:37:00 Test Item Value Reference Range Interpretation Comments Potassium Lvl (test code = Potassium 3.7 3.5-5.1 Lvl) [address]10-16 09:37:00 Test Item Value Reference Range Interpretation Comments Chloride Lvl (test code = Chloride Lvl) 98 95-109 [place] [address]-10-16 09:37:00 Test Item Value Reference Range Interpretation Comments CO2 (test code = CO2) 32 24-32 [place] [address]-10-16 09:37:00 Test Item Value Reference Range Interpretation Comments Calcium Lvl (test code = Calcium Lvl) 9.3 8.5-10.5 [place] [address]-10-16 09:37:00 Test Item Value Reference Range Interpretation Comments Total Protein (test code = Total 7.5 6.4-8.4 Protein) [address]10-16 09:37:00 Test Item Value Reference Range Interpretation Comments Albumin Lvl (test code = Albumin Lvl) 3.0 3.5-5.0 [place] [address]-10-16 09:37:00 Test Item Value Reference Range Interpretation Comments ALT (test code = ALT) 18 See_Comment [Auto mated message] The system which ge nerated this result transmit fabiano reference range : <=65. The reference range was not used to interpr et this result as aleks l/abnormal. [place] [address]-10-16 09:37:00 Test Item Value Reference Range Interpretation Comments AST (test code = AST) 6 See_Comment [Auto mated message] The system which ge nerated this result transmit fabiano reference range : <=37. The reference range was not used to interpr et this result as aleks l/abnormal. [facility]2022-10-16 09:37:00 Test Item Value Reference Range Interpretation Comments Alk Phos (test code = Alk Phos) 118 39-136 [place] 618542-10-16 09:37:00 Test Item Value Reference Range Interpretation Comments Bili Total (test code = Bili Total) 0.4 0.2-1.3 [place] 618542-10-16 09:37:00 Test Item Value Reference Range Interpretation Comments AGAP (test code = AGAP) 11.7 10.0-20.0 [place] [address]-10-16 09:37:00 Test Item Value Reference Range Interpretation Comments B/C Ratio (test code = B/C Ratio) 19 1 6-25 [place] 618542-10-16 09:37:00 Test Item Value Reference Range Interpretation Comments Globulin (test code = Globulin) 4.5 2.7-4.2 [place] 618542-10-16 09:37:00 Test Item Value Reference Range Interpretation Comments A/G Ratio (test code = A/G Ratio) 0.7 1 0.7-1.6 [place] [address]-10-16 09:37:00 Test Item Value Reference Range Interpretation Comments eGFR (test code = eGFR) 105 [facility]2022-10-16 09:37:00 Test Item Value Reference Range Interpretation Comments Phosphorus (test code = Phosphorus) 3.7 2.5-4.5 [place] 618542-10-16 09:37:00 Test Item Value Reference Range Interpretation Comments Magnesium Lvl (test code = Magnesium 2.1 1.8-2.4 Lvl) [place] 963002-10-16 09:37:00 Test Item Value Reference Range Interpretation Comments Procalcitonin Lvl (test no gt See_Comment [Au tomated message] code = Procalcitonin Lvl) e system which generated this result transmitted ref erence range: <=0.10. The reference range was not used to interpr et this result as normal/abnormal . [facility]NUBE[facility]OU4278-78-59 09:37:00 Test Item Value Reference Range Interpretation Comments WBC (test code = WBC) 15.7 3.7-10.4 [place] 951542-10-16 09:37:00 Test Item Value Reference Range Interpretation Comments RBC (test code = RBC) 4.10 4.20-5.40 [place] 951542-10-16 09:37:00 Test Item Value Reference Range Interpretation Comments Hgb (test code = Hgb) 10.7 12.0-16.0 [place] 951542-10-16 09:37:00 Test Item Value Reference Range Interpretation Comments Hct (test code = Hct) 32.8 36.0-48.0 [facility] HospitalVuhefqyDYKYKKYCKB4053-68-35 09:37:00 Test Item Value Reference Range Interpretation Comments MCV (test code = MCV) 80.0 80.0-98.0 [facility] HospitalLiubqzqTGUTSRVXMC3377-73-92 09:37:00 Test Item Value Reference Range Interpretation Comments MCH (test code = MCH) 26.1 pg 27.0-31.0 [facility] HospitalEbxuienQNVBTCDHFJ5741-20-59 09:37:00 Test Item Value Reference Range Interpretation Comments MCHC (test code = MCHC) 32.6 32.0-36.0 [facility] HospitalGzvgescZEQXVSQCPM1715-38-17 09:37:00 Test Item Value Reference Range Interpretation Comments RDW (test code = RDW) 16.4 11.5-14.5 [facility] HospitalLqinsxoFKLRIUUHQX0800-57-77 09:37:00 Test Item Value Reference Range Interpretation Comments Platelet (test code = Platelet) 362 133-450 [facility] HospitalVpzkmkiTTQGLFTBAH8489-37-71 09:37:00 Test Item Value Reference Range Interpretation Comments MPV (test code = MPV) 8.1 7.4-10.4 [facility] HospitalDjjwwtwIGGMRAZTAD2826-35-95 09:37:00 Test Item Value Reference Range Interpretation Comments Segs (test code = Segs) 76.4 45.0-75.0 [place] [address]-10-16 09:37:00 Test Item Value Reference Range Interpretation Comments Lymphocytes (test code = Lymphocytes) 13.3 20.0-40.0 [place] [address]-10-16 09:37:00 Test Item Value Reference Range Interpretation Comments Monocytes (test code = Monocytes) 5.7 2.0-12.0 [place] 951542-10-16 09:37:00 Test Item Value Reference Range Interpretation Comments Eosinophils (test code = 3.7 See_Comment [A utomated message] The Eosinophils) system which ge nerated this result tra nsmitted reference range : <=4.0. The reference r quynh was not used to int erpret this result as normal/abnormal . [place] [address]-10-16 09:37:00 Test Item Value Reference Range Interpretation Comments Basophils (test code = 0.9 See_Comment [Aut omated message] The Basophils) system which ge nerated this result tra nsmitted reference range : <=1.0. The reference r quynh was not used to int erpret this result as normal/abnormal . [place] [address]-10-16 09:37:00 Test Item Value Reference Range Interpretation Comments Neutrophils # (test code = Neutrophils 12.0 1.5-8.1 #) [place] 951542-10-16 09:37:00 Test Item Value Reference Range Interpretation Comments Lymphocytes # (test code = Lymphocytes 2.1 1.0-5.5 #) [place] [address]-10-16 09:37:00 Test Item Value Reference Range Interpretation Comments Monocytes # (test code 0.9 See_Comment [Aut omated message] The = Monocytes #) system which generated this result tra nsmitted reference range : <=0.8. The reference r quynh was not used to int erpret this result as normal/abnormal . [place] 951542-10-16 09:37:00 Test Item Value Reference Range Interpretation Comments Eosinophils # (test code 0.6 See_Comment [A utomated message] The = Eosinophils #) system whic h generated this result tra nsmitted reference range : <=0.5. The reference r uqynh was not used to int erpret this result as normal/abnormal . [place] [address]-10-16 09:37:00 Test Item Value Reference Range Interpretation Comments Basophils # (test code 0.1 See_Comment [Aut omated message] The = Basophils #) system which generated this result tra nsmitted reference range : <=0.2. The reference r quynh was not used to int erpret this result as normal/abnormal . [facility]2022-10-16 09:37:00 Test Item Value Reference Range Interpretation Comments Procalcitonin Lvl (test no gt See_Comment [Au tomated message] code = Procalcitonin Lvl) Th e system which generated this result transmitted ref erence range: <=0.10. The reference range was not used to interpr et this result as normal/abnormal . [place] 618542-10-16 09:37:00 Test Item Value Reference Range Interpretation Comments Glucose Lvl (test code = Glucose Lvl) 103 70-99 [place] 618542-10-16 09:37:00 Test Item Value Reference Range Interpretation Comments BUN (test code = BUN) 13 7-22 [place] 618542-10-16 09:37:00 Test Item Value Reference Range Interpretation Comments Creatinine Lvl (test code = Creatinine 0.67 0.50-1.40 Lvl) [place] 618542-10-16 09:37:00 Test Item Value Reference Range Interpretation Comments Sodium Lvl (test code = Sodium Lvl) 138 135-145 [place] 618542-10-16 09:37:00 Test Item Value Reference Range Interpretation Comments Potassium Lvl (test code = Potassium 3.7 3.5-5.1 Lvl) [facility] [id number] 09:37:00 Test Item Value Reference Range Interpretation Comments Chloride Lvl (test code = Chloride Lvl) 98 95-109 [place] 618542-10-16 09:37:00 Test Item Value Reference Range Interpretation Comments CO2 (test code = CO2) 32 24-32 [place] 618542-10-16 09:37:00 Test Item Value Reference Range Interpretation Comments Calcium Lvl (test code = Calcium Lvl) 9.3 8.5-10.5 [facility] [id number] 09:37:00 Test Item Value Reference Range Interpretation Comments Total Protein (test code = Total 7.5 6.4-8.4 Protein) [place] 618542-10-16 09:37:00 Test Item Value Reference Range Interpretation Comments Albumin Lvl (test code = Albumin Lvl) 3.0 3.5-5.0 [place] 618542-10-16 09:37:00 Test Item Value Reference Range Interpretation Comments ALT (test code = ALT) 18 See_Comment [Auto mated message] The system which ge nerated this result transmit fabiano reference range : <=65. The reference range was not used to interpr et this result as aleks l/abnormal. [facility] [id number] 09:37:00 Test Item Value Reference Range Interpretation Comments AST (test code = AST) 6 See_Comment [Auto mated message] The system which ge nerated this result transmit fabiano reference range : <=37. The reference range was not used to interpr et this result as aleks l/abnormal. [facility] [id number] 09:37:00 Test Item Value Reference Range Interpretation Comments Alk Phos (test code = Alk Phos) 118 39-136 [facility] [id number] 09:37:00 Test Item Value Reference Range Interpretation Comments Bili Total (test code = Bili Total) 0.4 0.2-1.3 [facility] [id number] 09:37:00 Test Item Value Reference Range Interpretation Comments AGAP (test code = AGAP) 11.7 10.0-20.0 [facility] [id number] 09:37:00 Test Item Value Reference Range Interpretation Comments B/C Ratio (test code = B/C Ratio) 19 1 6-25 [facility] [id number] 09:37:00 Test Item Value Reference Range Interpretation Comments Globulin (test code = Globulin) 4.5 2.7-4.2 [facility] [id number] 09:37:00 Test Item Value Reference Range Interpretation Comments A/G Ratio (test code = A/G Ratio) 0.7 1 0.7-1.6 [facility] [id number] 09:37:00 Test Item Value Reference Range Interpretation Comments eGFR (test code = eGFR) 105 [facility] [id number] 09:37:00 Test Item Value Reference Range Interpretation Comments Phosphorus (test code = Phosphorus) 3.7 2.5-4.5 [facility] [id number] 09:37:00 Test Item Value Reference Range Interpretation Comments Magnesium Lvl (test code = Magnesium 2.1 1.8-2.4 Lvl) [place] [address]-10-16 09:37:00 Test Item Value Reference Range Interpretation Comments Procalcitonin Lvl (test no gt See_Comment [Au tomated message] code = Procalcitonin Lvl) Th e system which generated this result transmitted ref erence range: <=0.10. The reference range was not used to interpr et this result as normal/abnormal . [facility]us[facility]FXWEOMIR5988-[facility] 09:37:00 Test Item Value Reference Range Interpretation Comments WBC (test code = WBC) 15.7 3.7-10.4 [facility] HospitalYqpsbgtJDZRUEHNIC9316-07-66 09:37:00 Test Item Value Reference Range Interpretation Comments RBC (test code = RBC) 4.10 4.20-5.40 [facility] HospitalVdnwlefZGPHWSPKSJ2856-26-81 09:37:00 Test Item Value Reference Range Interpretation Comments Hgb (test code = Hgb) 10.7 12.0-16.0 [facility] HospitalKjaljjnIYXUJIWMPQ8786-64-91 09:37:00 Test Item Value Reference Range Interpretation Comments Hct (test code = Hct) 32.8 36.0-48.0 [facility] HospitalTwipsjsIGHIZLFKYU5930-52-41 09:37:00 Test Item Value Reference Range Interpretation Comments MCV (test code = MCV) 80.0 80.0-98.0 [facility] HospitalFpxtfalMOTUXZVFNF4155-79-31 09:37:00 Test Item Value Reference Range Interpretation Comments MCH (test code = MCH) 26.1 pg 27.0-31.0 [facility] HospitalJpfltjoFDMWXTNCJZ0657-17-82 09:37:00 Test Item Value Reference Range Interpretation Comments MCHC (test code = MCHC) 32.6 32.0-36.0 [facility] HospitalVxijbpnYZWGPCEMEX9855-68-09 09:37:00 Test Item Value Reference Range Interpretation Comments RDW (test code = RDW) 16.4 11.5-14.5 [facility] HospitalQinqlpgDAQUJFAFTM3182-85-40 09:37:00 Test Item Value Reference Range Interpretation Comments Platelet (test code = Platelet) 362 133-450 [facility] HospitalZmziihyYRSCKVKWHB9093-21-47 09:37:00 Test Item Value Reference Range Interpretation Comments MPV (test code = MPV) 8.1 7.4-10.4 [facility] HospitalQxdgsmcICPTELWOVV3478-14-29 09:37:00 Test Item Value Reference Range Interpretation Comments Segs (test code = Segs) 76.4 45.0-75.0 [place] 951542-10-16 09:37:00 Test Item Value Reference Range Interpretation Comments Lymphocytes (test code = Lymphocytes) 13.3 20.0-40.0 [place] 951542-10-16 09:37:00 Test Item Value Reference Range Interpretation Comments Monocytes (test code = Monocytes) 5.7 2.0-12.0 [place] [address]-10-16 09:37:00 Test Item Value Reference Range Interpretation Comments Eosinophils (test code = 3.7 See_Comment [A utomated message] The Eosinophils) system which ge nerated this result tra nsmitted reference range : <=4.0. The reference r quynh was not used to int erpret this result as normal/abnormal . [place] [address]-10-16 09:37:00 Test Item Value Reference Range Interpretation Comments Basophils (test code = 0.9 See_Comment [Aut omated message] The Basophils) system which ge nerated this result tra nsmitted reference range : <=1.0. The reference r quynh was not used to int erpret this result as normal/abnormal . [facility] HospitalYfkezffXOBSYNWBXA2716-45-58 09:37:00 Test Item Value Reference Range Interpretation Comments Neutrophils # (test code = Neutrophils 12.0 1.5-8.1 #) [place] [address]-10-16 09:37:00 Test Item Value Reference Range Interpretation Comments Lymphocytes # (test code = Lymphocytes 2.1 1.0-5.5 #) [place] [address]-10-16 09:37:00 Test Item Value Reference Range Interpretation Comments Monocytes # (test code 0.9 See_Comment [Aut omated message] The = Monocytes #) system which generated this result tra nsmitted reference range : <=0.8. The reference r quynh was not used to int erpret this result as normal/abnormal . [place] [address]-10-16 09:37:00 Test Item Value Reference Range Interpretation Comments Eosinophils # (test code 0.6 See_Comment [A utomated message] The = Eosinophils #) system ic h generated this result tra nsmitted reference range : <=0.5. The reference r quynh was not used to int erpret this result as normal/abnormal . [facility] HospitalSyemsgxHYVFPQQHVG5575-03-97 09:37:00 Test Item Value Reference Range Interpretation Comments Basophils # (test code 0.1 See_Comment [Aut omated message] The = Basophils #) system which generated this result tra nsmitted reference range : <=0.2. The reference r quynh was not used to int erpret this result as normal/abnormal . [facility] [id number] 09:37:00 Test Item Value Reference Range Interpretation Comments Procalcitonin Lvl (test no gt See_Comment [Au tomated message] code = Procalcitonin Lvl) Th e system which generated this result transmitted ref erence range: <=0.10. The reference range was not used to interpr et this result as normal/abnormal . [facility]2022-10-16 09:37:00 Test Item Value Reference Range Interpretation Comments Glucose Lvl (test code = Glucose Lvl) 103 70-99 [facility] [id number] 09:37:00 Test Item Value Reference Range Interpretation Comments BUN (test code = BUN) 13 7-22 [place] 618542-10-16 09:37:00 Test Item Value Reference Range Interpretation Comments Creatinine Lvl (test code = Creatinine 0.67 0.50-1.40 Lvl) [facility]2022-10-16 09:37:00 Test Item Value Reference Range Interpretation Comments Sodium Lvl (test code = Sodium Lvl) 138 135-145 [facility]2022-10-16 09:37:00 Test Item Value Reference Range Interpretation Comments Potassium Lvl (test code = Potassium 3.7 3.5-5.1 Lvl) [place] [address]-10-16 09:37:00 Test Item Value Reference Range Interpretation Comments Chloride Lvl (test code = Chloride Lvl) 98 95-109 [facility] [id number] 09:37:00 Test Item Value Reference Range Interpretation Comments CO2 (test code = CO2) 32 24-32 [place] 618542-10-16 09:37:00 Test Item Value Reference Range Interpretation Comments Calcium Lvl (test code = Calcium Lvl) 9.3 8.5-10.5 [facility] [id number] 09:37:00 Test Item Value Reference Range Interpretation Comments Total Protein (test code = Total 7.5 6.4-8.4 Protein) [facility] [id number] 09:37:00 Test Item Value Reference Range Interpretation Comments Albumin Lvl (test code = Albumin Lvl) 3.0 3.5-5.0 [facility] [id number] 09:37:00 Test Item Value Reference Range Interpretation Comments ALT (test code = ALT) 18 See_Comment [Auto mated message] The system which ge nerated this result transmit fabiano reference range : <=65. The reference range was not used to interpr et this result as aleks l/abnormal. [facility] [id number] 09:37:00 Test Item Value Reference Range Interpretation Comments AST (test code = AST) 6 See_Comment [Auto mated message] The system which ge nerated this result transmit fabiano reference range : <=37. The reference range was not used to interpr et this result as aleks l/abnormal. [facility] [id number] 09:37:00 Test Item Value Reference Range Interpretation Comments Alk Phos (test code = Alk Phos) 118 39-136 [facility] [id number] 09:37:00 Test Item Value Reference Range Interpretation Comments Bili Total (test code = Bili Total) 0.4 0.2-1.3 [facility] [id number] 09:37:00 Test Item Value Reference Range Interpretation Comments AGAP (test code = AGAP) 11.7 10.0-20.0 [facility] [id number] 09:37:00 Test Item Value Reference Range Interpretation Comments B/C Ratio (test code = B/C Ratio) 19 1 6-25 [facility] [id number] 09:37:00 Test Item Value Reference Range Interpretation Comments Globulin (test code = Globulin) 4.5 2.7-4.2 [facility] [id number] 09:37:00 Test Item Value Reference Range Interpretation Comments A/G Ratio (test code = A/G Ratio) 0.7 1 0.7-1.6 [facility] [id number] 09:37:00 Test Item Value Reference Range Interpretation Comments eGFR (test code = eGFR) 105 [facility] [id number] 09:37:00 Test Item Value Reference Range Interpretation Comments Phosphorus (test code = Phosphorus) 3.7 2.5-4.5 [facility] [id number] 09:37:00 Test Item Value Reference Range Interpretation Comments Magnesium Lvl (test code = Magnesium 2.1 1.8-2.4 Lvl) [place] 963002-10-16 09:37:00 Test Item Value Reference Range Interpretation Comments Procalcitonin Lvl (test no gt See_Comment [Au tomated message] code = Procalcitonin Lvl) Th e system which generated this result transmitted ref erence range: <=0.10. The reference range was not used to interpr et this result as normal/abnormal . [place] 951542-10-16 09:37:00 Test Item Value Reference Range Interpretation Comments WBC (test code = WBC) 15.7 3.7-10.4 [place] 951542-10-16 09:37:00 Test Item Value Reference Range Interpretation Comments RBC (test code = RBC) 4.10 4.20-5.40 [place] [address]-10-16 09:37:00 Test Item Value Reference Range Interpretation Comments Hgb (test code = Hgb) 10.7 12.0-16.0 [place] [address]-10-16 09:37:00 Test Item Value Reference Range Interpretation Comments Hct (test code = Hct) 32.8 36.0-48.0 [place] [address]-10-16 09:37:00 Test Item Value Reference Range Interpretation Comments MCV (test code = MCV) 80.0 80.0-98.0 [place] [address]-10-16 09:37:00 Test Item Value Reference Range Interpretation Comments MCH (test code = MCH) 26.1 pg 27.0-31.0 [place] [address]-10-16 09:37:00 Test Item Value Reference Range Interpretation Comments MCHC (test code = MCHC) 32.6 32.0-36.0 [place] [address]-10-16 09:37:00 Test Item Value Reference Range Interpretation Comments RDW (test code = RDW) 16.4 11.5-14.5 [place] 951542-10-16 09:37:00 Test Item Value Reference Range Interpretation Comments Platelet (test code = Platelet) 362 133-450 [place] 951542-10-16 09:37:00 Test Item Value Reference Range Interpretation Comments MPV (test code = MPV) 8.1 7.4-10.4 [place] 951542-10-16 09:37:00 Test Item Value Reference Range Interpretation Comments Segs (test code = Segs) 76.4 45.0-75.0 [place] 951542-10-16 09:37:00 Test Item Value Reference Range Interpretation Comments Lymphocytes (test code = Lymphocytes) 13.3 20.0-40.0 [place] 951542-10-16 09:37:00 Test Item Value Reference Range Interpretation Comments Monocytes (test code = Monocytes) 5.7 2.0-12.0 [place] 951542-10-16 09:37:00 Test Item Value Reference Range Interpretation Comments Eosinophils (test code = 3.7 See_Comment [A utomated message] The Eosinophils) system which ge nerated this result tra nsmitted reference range : <=4.0. The reference r quynh was not used to int erpret this result as normal/abnormal . [place] [address]-10-16 09:37:00 Test Item Value Reference Range Interpretation Comments Basophils (test code = 0.9 See_Comment [Aut omated message] The Basophils) system which ge nerated this result tra nsmitted reference range : <=1.0. The reference r quynh was not used to int erpret this result as normal/abnormal . [facility]yplwefGRIKZTJHYF4228-30-35 09:37:00 Test Item Value Reference Range Interpretation Comments Neutrophils # (test code = Neutrophils 12.0 1.5-8.1 #) [place] [address]-10-16 09:37:00 Test Item Value Reference Range Interpretation Comments Lymphocytes # (test code = Lymphocytes 2.1 1.0-5.5 #) [place] [address]-10-16 09:37:00 Test Item Value Reference Range Interpretation Comments Monocytes # (test code 0.9 See_Comment [Aut omated message] The = Monocytes #) system which generated this result tra nsmitted reference range : <=0.8. The reference r quynh was not used to int erpret this result as normal/abnormal . [place] [address]-10-16 09:37:00 Test Item Value Reference Range Interpretation Comments Eosinophils # (test code 0.6 See_Comment [A utomated message] The = Eosinophils #) system whic h generated this result tra nsmitted reference range : <=0.5. The reference r quynh was not used to int erpret this result as normal/abnormal . [place] [address]-10-16 09:37:00 Test Item Value Reference Range Interpretation Comments Basophils # (test code 0.1 See_Comment [Aut omated message] The = Basophils #) system which generated this result tra nsmitted reference range : <=0.2. The reference r quynh was not used to int erpret this result as normal/abnormal . [place] [address]-10-16 09:37:00 Test Item Value Reference Range Interpretation Comments Procalcitonin Lvl (test no gt See_Comment [Au tomated message] code = Procalcitonin Lvl) Th e system which generated this result transmitted ref erence range: <=0.10. The reference range was not used to interpr et this result as normal/abnormal . [facility] [id number] 09:37:00 Test Item Value Reference Range Interpretation Comments Glucose Lvl (test code = Glucose Lvl) 103 70-99 [facility] [id number] 09:37:00 Test Item Value Reference Range Interpretation Comments BUN (test code = BUN) 13 7-22 [facility] [id number] 09:37:00 Test Item Value Reference Range Interpretation Comments Creatinine Lvl (test code = Creatinine 0.67 0.50-1.40 Lvl) [place] [address]-10-16 09:37:00 Test Item Value Reference Range Interpretation Comments Sodium Lvl (test code = Sodium Lvl) 138 135-145 [place] [address]-10-16 09:37:00 Test Item Value Reference Range Interpretation Comments Potassium Lvl (test code = Potassium 3.7 3.5-5.1 Lvl) [place] [address]-10-16 09:37:00 Test Item Value Reference Range Interpretation Comments Chloride Lvl (test code = Chloride Lvl) 98 95-109 [facility] [id number] 09:37:00 Test Item Value Reference Range Interpretation Comments CO2 (test code = CO2) 32 24-32 [facility] [id number] 09:37:00 Test Item Value Reference Range Interpretation Comments Calcium Lvl (test code = Calcium Lvl) 9.3 8.5-10.5 [facility] [id number] 09:37:00 Test Item Value Reference Range Interpretation Comments Total Protein (test code = Total 7.5 6.4-8.4 Protein) [facility] [id number] 09:37:00 Test Item Value Reference Range Interpretation Comments Albumin Lvl (test code = Albumin Lvl) 3.0 3.5-5.0 [facility] [id number] 09:37:00 Test Item Value Reference Range Interpretation Comments ALT (test code = ALT) 18 See_Comment [Auto mated message] The system which ge nerated this result transmit fabiano reference range : <=65. The reference range was not used to interpr et this result as aleks l/abnormal. [facility] [id number] 09:37:00 Test Item Value Reference Range Interpretation Comments AST (test code = AST) 6 See_Comment [Auto mated message] The system which ge nerated this result transmit fabiano reference range : <=37. The reference range was not used to interpr et this result as aleks l/abnormal. [facility] [id number] 09:37:00 Test Item Value Reference Range Interpretation Comments Alk Phos (test code = Alk Phos) 118 39-136 [facility] [id number] 09:37:00 Test Item Value Reference Range Interpretation Comments Bili Total (test code = Bili Total) 0.4 0.2-1.3 [facility] [id number] 09:37:00 Test Item Value Reference Range Interpretation Comments AGAP (test code = AGAP) 11.7 10.0-20.0 [facility] [id number] 09:37:00 Test Item Value Reference Range Interpretation Comments B/C Ratio (test code = B/C Ratio) 19 1 6-[address]10-16 09:37:00 Test Item Value Reference Range Interpretation Comments Globulin (test code = Globulin) 4.5 2.7-4.2 [place] [address]-10-16 09:37:00 Test Item Value Reference Range Interpretation Comments A/G Ratio (test code = A/G Ratio) 0.7 1 0.7-1.6 [place] [address]-10-16 09:37:00 Test Item Value Reference Range Interpretation Comments eGFR (test code = eGFR) 105 [place] [address]-10-16 09:37:00 Test Item Value Reference Range Interpretation Comments Phosphorus (test code = Phosphorus) 3.7 2.5-4.5 [place] [address]-10-16 09:37:00 Test Item Value Reference Range Interpretation Comments Magnesium Lvl (test code = Magnesium 2.1 1.8-2.4 Lvl) [place] 963002-10-16 09:37:00 Test Item Value Reference Range Interpretation Comments Procalcitonin Lvl (test no gt See_Comment [Au tomated message] code = Procalcitonin Lvl) Th e system which generated this result transmitted ref erence range: <=0.10. The reference range was not used to interpr et this result as normal/abnormal . [place] [address]-10-16 09:37:00 Test Item Value Reference Range Interpretation Comments WBC (test code = WBC) 15.7 3.7-10.4 [place] [address]-10-16 09:37:00 Test Item Value Reference Range Interpretation Comments RBC (test code = RBC) 4.10 4.20-5.40 [place] [address]-10-16 09:37:00 Test Item Value Reference Range Interpretation Comments Hgb (test code = Hgb) 10.7 12.0-16.0 [place] [address]-10-16 09:37:00 Test Item Value Reference Range Interpretation Comments Hct (test code = Hct) 32.8 36.0-48.0 [place] [address]-10-16 09:37:00 Test Item Value Reference Range Interpretation Comments MCV (test code = MCV) 80.0 80.0-98.0 [place] [address]-10-16 09:37:00 Test Item Value Reference Range Interpretation Comments MCH (test code = MCH) 26.1 pg 27.0-31.0 [facility] HospitalItleftxSHVKRQZZON3531-26-81 09:37:00 Test Item Value Reference Range Interpretation Comments MCHC (test code = MCHC) 32.6 32.0-36.0 [facility] HospitalPzzfsljQAZADVHLFR3667-57-45 09:37:00 Test Item Value Reference Range Interpretation Comments RDW (test code = RDW) 16.4 11.5-14.5 [facility] HospitalRjzezdjSULVSKFTCC0062-32-15 09:37:00 Test Item Value Reference Range Interpretation Comments Platelet (test code = Platelet) 362 133-450 [facility] HospitalSqdyjggMUUIVPAAFR6885-50-61 09:37:00 Test Item Value Reference Range Interpretation Comments MPV (test code = MPV) 8.1 7.4-10.4 [facility] HospitalQueycuhIYLCEQEJKU0591-36-32 09:37:00 Test Item Value Reference Range Interpretation Comments Segs (test code = Segs) 76.4 45.0-75.0 [facility] HospitalSagfzgkDMWVEVJGGD3034-56-13 09:37:00 Test Item Value Reference Range Interpretation Comments Lymphocytes (test code = Lymphocytes) 13.3 20.0-40.0 [facility] HospitalMhxygltCOCJOGONDP7257-53-47 09:37:00 Test Item Value Reference Range Interpretation Comments Monocytes (test code = Monocytes) 5.7 2.0-12.0 [facility] HospitalBocfqgmXDSTHVFQUM7839-23-17 09:37:00 Test Item Value Reference Range Interpretation Comments Eosinophils (test code = 3.7 See_Comment [A utomated message] The Eosinophils) system which ge nerated this result tra nsmitted reference range : <=4.0. The reference r quynh was not used to int erpret this result as normal/abnormal . [place] [address]-10-16 09:37:00 Test Item Value Reference Range Interpretation Comments Basophils (test code = 0.9 See_Comment [Aut omated message] The Basophils) system which ge nerated this result tra nsmitted reference range : <=1.0. The reference r quynh was not used to int erpret this result as normal/abnormal . [place] 951542-10-16 09:37:00 Test Item Value Reference Range Interpretation Comments Neutrophils # (test code = Neutrophils 12.0 1.5-8.1 #) [place] [address]-10-16 09:37:00 Test Item Value Reference Range Interpretation Comments Lymphocytes # (test code = Lymphocytes 2.1 1.0-5.5 #) [place] [address]-10-16 09:37:00 Test Item Value Reference Range Interpretation Comments Monocytes # (test code 0.9 See_Comment [Aut omated message] The = Monocytes #) system which generated this result tra nsmitted reference range : <=0.8. The reference r quynh was not used to int erpret this result as normal/abnormal . [place] [address]-10-16 09:37:00 Test Item Value Reference Range Interpretation Comments Eosinophils # (test code 0.6 See_Comment [A utomated message] The = Eosinophils #) system whic h generated this result tra nsmitted reference range : <=0.5. The reference r quynh was not used to int erpret this result as normal/abnormal . [place] [address]-10-16 09:37:00 Test Item Value Reference Range Interpretation Comments Basophils # (test code 0.1 See_Comment [Aut omated message] The = Basophils #) system which generated this result tra nsmitted reference range : <=0.2. The reference r quynh was not used to int erpret this result as normal/abnormal . [place] [address]-10-16 09:37:00 Test Item Value Reference Range Interpretation Comments Procalcitonin Lvl (test no gt See_Comment [Au tomated message] code = Procalcitonin Lvl) Th e system which generated this result transmitted ref erence range: <=0.10. The reference range was not used to interpr et this result as normal/abnormal . [place] [address]-10-16 09:37:00 Test Item Value Reference Range Interpretation Comments Glucose Lvl (test code = Glucose Lvl) 103 70-99 [place] [address]-10-16 09:37:00 Test Item Value Reference Range Interpretation Comments BUN (test code = BUN) 13 7-22 [place] [address]-10-16 09:37:00 Test Item Value Reference Range Interpretation Comments Creatinine Lvl (test code = Creatinine 0.67 0.50-1.40 Lvl) [place] 618542-10-16 09:37:00 Test Item Value Reference Range Interpretation Comments Sodium Lvl (test code = Sodium Lvl) 138 135-145 [place] 618542-10-16 09:37:00 Test Item Value Reference Range Interpretation Comments Potassium Lvl (test code = Potassium 3.7 3.5-5.1 Lvl) [place] 618542-10-16 09:37:00 Test Item Value Reference Range Interpretation Comments Chloride Lvl (test code = Chloride Lvl) 98 95-109 [place] 618542-10-16 09:37:00 Test Item Value Reference Range Interpretation Comments CO2 (test code = CO2) 32 24-32 [place] 618542-10-16 09:37:00 Test Item Value Reference Range Interpretation Comments Calcium Lvl (test code = Calcium Lvl) 9.3 8.5-10.5 [place] 618542-10-16 09:37:00 Test Item Value Reference Range Interpretation Comments Total Protein (test code = Total 7.5 6.4-8.4 Protein) [place] 618542-10-16 09:37:00 Test Item Value Reference Range Interpretation Comments Albumin Lvl (test code = Albumin Lvl) 3.0 3.5-5.0 [place] 618542-10-16 09:37:00 Test Item Value Reference Range Interpretation Comments ALT (test code = ALT) 18 See_Comment [Auto mated message] The system which ge nerated this result transmit fabiano reference range : <=65. The reference range was not used to interpr et this result as aleks l/abnormal. [facility] [id number] 09:37:00 Test Item Value Reference Range Interpretation Comments AST (test code = AST) 6 See_Comment [Auto mated message] The system which ge nerated this result transmit fabiano reference range : <=37. The reference range was not used to interpr et this result as aleks l/abnormal. [place] [address]-10-16 09:37:00 Test Item Value Reference Range Interpretation Comments Alk Phos (test code = Alk Phos) 118 39-136 [facility] [id number] 09:37:00 Test Item Value Reference Range Interpretation Comments Bili Total (test code = Bili Total) 0.4 0.2-1.3 [facility]2022-10-16 09:37:00 Test Item Value Reference Range Interpretation Comments AGAP (test code = AGAP) 11.7 10.0-20.0 [facility]2022-10-16 09:37:00 Test Item Value Reference Range Interpretation Comments B/C Ratio (test code = B/C Ratio) 19 1 6-25 [place] 618542-10-16 09:37:00 Test Item Value Reference Range Interpretation Comments Globulin (test code = Globulin) 4.5 2.7-4.2 [facility]2022-10-16 09:37:00 Test Item Value Reference Range Interpretation Comments A/G Ratio (test code = A/G Ratio) 0.7 1 0.7-1.6 [place] 618542-10-16 09:37:00 Test Item Value Reference Range Interpretation Comments eGFR (test code = eGFR) 105 [facility]2022-10-16 09:37:00 Test Item Value Reference Range Interpretation Comments Phosphorus (test code = Phosphorus) 3.7 2.5-4.5 [facility]2022-10-16 09:37:00 Test Item Value Reference Range Interpretation Comments Magnesium Lvl (test code = Magnesium 2.1 1.8-2.4 Lvl) [id number]:37:00 Test Item Value Reference Range Interpretation Comments Procalcitonin Lvl (test no gt See_Comment [Au tomated message] code = Procalcitonin Lvl) e system which generated this result transmitted ref erence range: <=0.10. The reference range was not used to interpr et this result as normal/abnormal . [facility]oLUQAS[facility]HLUW1188-09-93 09:37:00 Test Item Value Reference Range Interpretation Comments WBC (test code = WBC) 15.7 3.7-10.4 [place] 951542-10-16 09:37:00 Test Item Value Reference Range Interpretation Comments RBC (test code = RBC) 4.10 4.20-5.40 [place] 951542-10-16 09:37:00 Test Item Value Reference Range Interpretation Comments Hgb (test code = Hgb) 10.7 12.0-16.0 [place] 951542-10-16 09:37:00 Test Item Value Reference Range Interpretation Comments Hct (test code = Hct) 32.8 36.0-48.0 [place] 951542-10-16 09:37:00 Test Item Value Reference Range Interpretation Comments MCV (test code = MCV) 80.0 80.0-98.0 [facility] HospitalEtkorhbBKMJCFDCHH6193-62-54 09:37:00 Test Item Value Reference Range Interpretation Comments MCH (test code = MCH) 26.1 pg 27.0-31.0 [place] 951542-10-16 09:37:00 Test Item Value Reference Range Interpretation Comments MCHC (test code = MCHC) 32.6 32.0-36.0 [place] 951542-10-16 09:37:00 Test Item Value Reference Range Interpretation Comments RDW (test code = RDW) 16.4 11.5-14.5 [place] 951542-10-16 09:37:00 Test Item Value Reference Range Interpretation Comments Platelet (test code = Platelet) 362 133-450 [facility] HospitalJyawvlkILNSPUAKML2407-87-42 09:37:00 Test Item Value Reference Range Interpretation Comments MPV (test code = MPV) 8.1 7.4-10.4 [place] [address]-10-16 09:37:00 Test Item Value Reference Range Interpretation Comments Segs (test code = Segs) 76.4 45.0-75.0 [place] 951542-10-16 09:37:00 Test Item Value Reference Range Interpretation Comments Lymphocytes (test code = Lymphocytes) 13.3 20.0-40.0 [place] 951542-10-16 09:37:00 Test Item Value Reference Range Interpretation Comments Monocytes (test code = Monocytes) 5.7 2.0-12.0 [place] 951542-10-16 09:37:00 Test Item Value Reference Range Interpretation Comments Eosinophils (test code = 3.7 See_Comment [A utomated message] The Eosinophils) system which ge nerated this result tra nsmitted reference range : <=4.0. The reference r quynh was not used to int erpret this result as normal/abnormal . [facility] H[id number] 09:37:00 Test Item Value Reference Range Interpretation Comments Basophils (test code = 0.9 See_Comment [Aut omated message] The Basophils) system which ge nerated this result tra nsmitted reference range : <=1.0. The reference r quynh was not used to int erpret this result as normal/abnormal . [facility] HospitalPkymqhrVYABRDKAOI9186-84-34 09:37:00 Test Item Value Reference Range Interpretation Comments Neutrophils # (test code = Neutrophils 12.0 1.5-8.1 #) [place] 618542-10-15 18:28:21 Test Item Value Reference Range Interpretation Comments LDH (test code = LDH) 154 98-192 [place] [address]-10-15 18:28:21 Test Item Value Reference Range Interpretation Comments LDH (test code = LDH) 154 98-192 [place] 618542-10-15 18:28:21 Test Item Value Reference Range Interpretation Comments LDH (test code = LDH) 154 98-192 [place] [address]-10-15 18:28:21 Test Item Value Reference Range Interpretation Comments LDH (test code = LDH) 154 98-192 [place] [address]-10-15 18:28:21 Test Item Value Reference Range Interpretation Comments LDH (test code = LDH) 154 98-192 [facility] HospitalPbvvbsgOYFOCEIYJN0822-06-40 11:23:00 Test Item Value Reference Range Interpretation Comments Platelet (test code = Platelet) 342 133-450 [facility] HospitalDywysxgDRARAZXPLS0258-56-57 11:23:00 Test Item Value Reference Range Interpretation Comments MPV (test code = MPV) 8.1 7.4-10.4 [place] [address]-10-15 11:23:00 Test Item Value Reference Range Interpretation Comments Segs (test code = Segs) 82.0 45.0-75.0 [place] 951542-10-15 11:23:00 Test Item Value Reference Range Interpretation Comments Lymphocytes (test code = Lymphocytes) 8.9 20.0-40.0 [place] 951542-10-15 11:23:00 Test Item Value Reference Range Interpretation Comments Monocytes (test code = Monocytes) 6.0 2.0-12.0 [place] [address]-10-15 11:23:00 Test Item Value Reference Range Interpretation Comments Eosinophils (test code = 2.8 See_Comment [A utomated message] The Eosinophils) system which ge nerated this result tra nsmitted reference range : <=4.0. The reference r quynh was not used to int erpret this result as normal/abnormal . [place] [address]-10-15 11:23:00 Test Item Value Reference Range Interpretation Comments Basophils (test code = 0.3 See_Comment [Aut omated message] The Basophils) system which ge nerated this result tra nsmitted reference range : <=1.0. The reference r quynh was not used to int erpret this result as normal/abnormal . [place] 951542-10-15 11:23:00 Test Item Value Reference Range Interpretation Comments Neutrophils # (test code = Neutrophils 12.7 1.5-8.1 #) [place] 951542-10-15 11:23:00 Test Item Value Reference Range Interpretation Comments Lymphocytes # (test code = Lymphocytes 1.4 1.0-5.5 #) [place] [address]-10-15 11:23:00 Test Item Value Reference Range Interpretation Comments Monocytes # (test code 0.9 See_Comment [Aut omated message] The = Monocytes #) system which generated this result tra nsmitted reference range : <=0.8. The reference r quynh was not used to int erpret this result as normal/abnormal . [place] [address]-10-15 11:23:00 Test Item Value Reference Range Interpretation Comments Eosinophils # (test code 0.4 See_Comment [A utomated message] The = Eosinophils #) system whic h generated this result tra nsmitted reference range : <=0.5. The reference r quynh was not used to int erpret this result as normal/abnormal . [facility] [id number] 11:23:00 Test Item Value Reference Range Interpretation Comments Glucose Lvl (test code = Glucose Lvl) 96 70-99 [facility] [id number] 11:23:00 Test Item Value Reference Range Interpretation Comments BUN (test code = BUN) 13 7-22 [facility] [id number] 11:23:00 Test Item Value Reference Range Interpretation Comments Creatinine Lvl (test code = Creatinine 0.57 0.50-1.40 Lvl) [place] 618542-10-15 11:23:00 Test Item Value Reference Range Interpretation Comments Sodium Lvl (test code = Sodium Lvl) 137 135-145 [place] [address]-10-15 11:23:00 Test Item Value Reference Range Interpretation Comments Potassium Lvl (test code = Potassium 3.6 3.5-5.1 Lvl) [place] 618542-10-15 11:23:00 Test Item Value Reference Range Interpretation Comments Chloride Lvl (test code = Chloride Lvl) 100 95-109 [place] 618542-10-15 11:23:00 Test Item Value Reference Range Interpretation Comments CO2 (test code = CO2) 30 24-32 [place] [address]-10-15 11:23:00 Test Item Value Reference Range Interpretation Comments Calcium Lvl (test code = Calcium Lvl) 9.2 8.5-10.5 [place] 618542-10-15 11:23:00 Test Item Value Reference Range Interpretation Comments AGAP (test code = AGAP) 10.6 10.0-20.0 [place] 618542-10-15 11:23:00 Test Item Value Reference Range Interpretation Comments eGFR (test code = eGFR) 109 [place] 618542-10-15 11:23:00 Test Item Value Reference Range Interpretation Comments Magnesium Lvl (test code = Magnesium 2.1 1.8-2.4 Lvl) [place] 618542-10-15 11:23:00 Test Item Value Reference Range Interpretation Comments Phosphorus (test code = Phosphorus) 4.5 2.5-4.5 [place] [address]-10-15 11:23:00 Test Item Value Reference Range Interpretation Comments WBC (test code = WBC) 15.4 3.7-10.4 [place] [address]-10-15 11:23:00 Test Item Value Reference Range Interpretation Comments RBC (test code = RBC) 3.93 4.20-5.40 [place] [address]-10-15 11:23:00 Test Item Value Reference Range Interpretation Comments Hgb (test code = Hgb) 10.3 12.0-16.0 [place] 951542-10-15 11:23:00 Test Item Value Reference Range Interpretation Comments Hct (test code = Hct) 31.8 36.0-48.0 [place] 951542-10-15 11:23:00 Test Item Value Reference Range Interpretation Comments MCV (test code = MCV) 80.8 80.0-98.0 [place] 951542-10-15 11:23:00 Test Item Value Reference Range Interpretation Comments MCH (test code = MCH) 26.1 pg 27.0-31.0 [place] [address]-10-15 11:23:00 Test Item Value Reference Range Interpretation Comments MCHC (test code = MCHC) 32.3 32.0-36.0 [place] [address]-10-15 11:23:00 Test Item Value Reference Range Interpretation Comments RDW (test code = RDW) 16.4 11.5-14.5 [place] 951542-10-15 11:23:00 Test Item Value Reference Range Interpretation Comments Platelet (test code = Platelet) 342 133-450 [facility] HospitalOffabbvQCIADVKPDN4970-05-32 11:23:00 Test Item Value Reference Range Interpretation Comments MPV (test code = MPV) 8.1 7.4-10.4 [place] [address]-10-15 11:23:00 Test Item Value Reference Range Interpretation Comments Segs (test code = Segs) 82.0 45.0-75.0 [place] [address]-10-15 11:23:00 Test Item Value Reference Range Interpretation Comments Lymphocytes (test code = Lymphocytes) 8.9 20.0-40.0 [place] 951542-10-15 11:23:00 Test Item Value Reference Range Interpretation Comments Monocytes (test code = Monocytes) 6.0 2.0-12.0 [place] [address]-10-15 11:23:00 Test Item Value Reference Range Interpretation Comments Eosinophils (test code = 2.8 See_Comment [A utomated message] The Eosinophils) system which ge nerated this result tra nsmitted reference range : <=4.0. The reference r quynh was not used to int erpret this result as normal/abnormal . [place] 951542-10-15 11:23:00 Test Item Value Reference Range Interpretation Comments Basophils (test code = 0.3 See_Comment [Aut omated message] The Basophils) system which ge nerated this result tra nsmitted reference range : <=1.0. The reference r quynh was not used to int erpret this result as normal/abnormal . [facility] HospitalZpuzezjGSTSYDDZZJ1296-07-54 11:23:00 Test Item Value Reference Range Interpretation Comments Neutrophils # (test code = Neutrophils 12.7 1.5-8.1 #) [place] 951542-10-15 11:23:00 Test Item Value Reference Range Interpretation Comments Lymphocytes # (test code = Lymphocytes 1.4 1.0-5.5 #) [place] 951542-10-15 11:23:00 Test Item Value Reference Range Interpretation Comments Monocytes # (test code 0.9 See_Comment [Aut omated message] The = Monocytes #) system which generated this result tra nsmitted reference range : <=0.8. The reference r quynh was not used to int erpret this result as normal/abnormal . [place] [address]-10-15 11:23:00 Test Item Value Reference Range Interpretation Comments Eosinophils # (test code 0.4 See_Comment [A utomated message] The = Eosinophils #) system whic h generated this result tra nsmitted reference range : <=0.5. The reference r quynh was not used to int erpret this result as normal/abnormal . [facility]2022-10-15 11:23:00 Test Item Value Reference Range Interpretation Comments Glucose Lvl (test code = Glucose Lvl) 96 70-99 [place] 618542-10-15 11:23:00 Test Item Value Reference Range Interpretation Comments BUN (test code = BUN) 13 7-22 [place] [address]-10-15 11:23:00 Test Item Value Reference Range Interpretation Comments Creatinine Lvl (test code = Creatinine 0.57 0.50-1.40 Lvl) [place] 618542-10-15 11:23:00 Test Item Value Reference Range Interpretation Comments Sodium Lvl (test code = Sodium Lvl) 137 135-145 [place] 618542-10-15 11:23:00 Test Item Value Reference Range Interpretation Comments Potassium Lvl (test code = Potassium 3.6 3.5-5.1 Lvl) [place] 618542-10-15 11:23:00 Test Item Value Reference Range Interpretation Comments Chloride Lvl (test code = Chloride Lvl) 100 95-109 [place] 618542-10-15 11:23:00 Test Item Value Reference Range Interpretation Comments CO2 (test code = CO2) 30 24-32 [place] 618542-10-15 11:23:00 Test Item Value Reference Range Interpretation Comments Calcium Lvl (test code = Calcium Lvl) 9.2 8.5-10.5 [place] [address]-10-15 11:23:00 Test Item Value Reference Range Interpretation Comments AGAP (test code = AGAP) 10.6 10.0-20.0 [place] [address]-10-15 11:23:00 Test Item Value Reference Range Interpretation Comments eGFR (test code = eGFR) 109 [place] 618542-10-15 11:23:00 Test Item Value Reference Range Interpretation Comments Magnesium Lvl (test code = Magnesium 2.1 1.8-2.4 Lvl) [place] 618542-10-15 11:23:00 Test Item Value Reference Range Interpretation Comments Phosphorus (test code = Phosphorus) 4.5 2.5-4.5 [place] 951542-10-15 11:23:00 Test Item Value Reference Range Interpretation Comments WBC (test code = WBC) 15.4 3.7-10.4 [place] [address]-10-15 11:23:00 Test Item Value Reference Range Interpretation Comments RBC (test code = RBC) 3.93 4.20-5.40 [place] [address]-10-15 11:23:00 Test Item Value Reference Range Interpretation Comments Hgb (test code = Hgb) 10.3 12.0-16.0 [place] [address]-10-15 11:23:00 Test Item Value Reference Range Interpretation Comments Hct (test code = Hct) 31.8 36.0-48.0 [place] [address]-10-15 11:23:00 Test Item Value Reference Range Interpretation Comments MCV (test code = MCV) 80.8 80.0-98.0 [place] [address]-10-15 11:23:00 Test Item Value Reference Range Interpretation Comments MCH (test code = MCH) 26.1 pg 27.0-31.0 [place] 951542-10-15 11:23:00 Test Item Value Reference Range Interpretation Comments MCHC (test code = MCHC) 32.3 32.0-36.0 [facility] HospitalBqugfxhVXFWGMEZVW4803-43-50 11:23:00 Test Item Value Reference Range Interpretation Comments RDW (test code = RDW) 16.4 11.5-14.5 [place] 951542-10-15 11:23:00 Test Item Value Reference Range Interpretation Comments Platelet (test code = Platelet) 342 133-450 [facility] HospitalUxlimxsRBUKSZHLCJ0136-84-14 11:23:00 Test Item Value Reference Range Interpretation Comments MPV (test code = MPV) 8.1 7.4-10.4 [place] 951542-10-15 11:23:00 Test Item Value Reference Range Interpretation Comments Segs (test code = Segs) 82.0 45.0-75.0 [place] 951542-10-15 11:23:00 Test Item Value Reference Range Interpretation Comments Lymphocytes (test code = Lymphocytes) 8.9 20.0-40.0 [place] [address]-10-15 11:23:00 Test Item Value Reference Range Interpretation Comments Monocytes (test code = Monocytes) 6.0 2.0-12.0 [place] 951542-10-15 11:23:00 Test Item Value Reference Range Interpretation Comments Eosinophils (test code = 2.8 See_Comment [A utomated message] The Eosinophils) system which ge nerated this result tra nsmitted reference range : <=4.0. The reference r quynh was not used to int erpret this result as normal/abnormal . [place] [address]-10-15 11:23:00 Test Item Value Reference Range Interpretation Comments Basophils (test code = 0.3 See_Comment [Aut omated message] The Basophils) system which ge nerated this result tra nsmitted reference range : <=1.0. The reference r quynh was not used to int erpret this result as normal/abnormal . [place] [address]-10-15 11:23:00 Test Item Value Reference Range Interpretation Comments Neutrophils # (test code = Neutrophils 12.7 1.5-8.1 #) [place] [address]-10-15 11:23:00 Test Item Value Reference Range Interpretation Comments Lymphocytes # (test code = Lymphocytes 1.4 1.0-5.5 #) [place] [address]-10-15 11:23:00 Test Item Value Reference Range Interpretation Comments Monocytes # (test code 0.9 See_Comment [Aut omated message] The = Monocytes #) system which generated this result tra nsmitted reference range : <=0.8. The reference r quynh was not used to int erpret this result as normal/abnormal . [place] [address]-10-15 11:23:00 Test Item Value Reference Range Interpretation Comments Eosinophils # (test code 0.4 See_Comment [A utomated message] The = Eosinophils #) system whic h generated this result tra nsmitted reference range : <=0.5. The reference r quynh was not used to int erpret this result as normal/abnormal . [facility]2022-10-15 11:23:00 Test Item Value Reference Range Interpretation Comments Glucose Lvl (test code = Glucose Lvl) 96 70-99 [place] 618542-10-15 11:23:00 Test Item Value Reference Range Interpretation Comments BUN (test code = BUN) 13 7-22 [place] 618542-10-15 11:23:00 Test Item Value Reference Range Interpretation Comments Creatinine Lvl (test code = Creatinine 0.57 0.50-1.40 Lvl) [place] 618542-10-15 11:23:00 Test Item Value Reference Range Interpretation Comments Sodium Lvl (test code = Sodium Lvl) 137 135-145 [place] 618542-10-15 11:23:00 Test Item Value Reference Range Interpretation Comments Potassium Lvl (test code = Potassium 3.6 3.5-5.1 Lvl) [place] 618542-10-15 11:23:00 Test Item Value Reference Range Interpretation Comments Chloride Lvl (test code = Chloride Lvl) 100 95-109 [place] 618542-10-15 11:23:00 Test Item Value Reference Range Interpretation Comments CO2 (test code = CO2) 30 24-32 [place] 618542-10-15 11:23:00 Test Item Value Reference Range Interpretation Comments Calcium Lvl (test code = Calcium Lvl) 9.2 8.5-10.5 [place] 618542-10-15 11:23:00 Test Item Value Reference Range Interpretation Comments AGAP (test code = AGAP) 10.6 10.0-20.0 [place] 618542-10-15 11:23:00 Test Item Value Reference Range Interpretation Comments eGFR (test code = eGFR) 109 [place] 618542-10-15 11:23:00 Test Item Value Reference Range Interpretation Comments Magnesium Lvl (test code = Magnesium 2.1 1.8-2.4 Lvl) [place] 618542-10-15 11:23:00 Test Item Value Reference Range Interpretation Comments Phosphorus (test code = Phosphorus) 4.5 2.5-4.5 [place] 951542-10-15 11:23:00 Test Item Value Reference Range Interpretation Comments WBC (test code = WBC) 15.4 3.7-10.4 [place] 951542-10-15 11:23:00 Test Item Value Reference Range Interpretation Comments RBC (test code = RBC) 3.93 4.20-5.40 [place] 951542-10-15 11:23:00 Test Item Value Reference Range Interpretation Comments Hgb (test code = Hgb) 10.3 12.0-16.0 [place] [address]-10-15 11:23:00 Test Item Value Reference Range Interpretation Comments Hct (test code = Hct) 31.8 36.0-48.0 [place] [address]-10-15 11:23:00 Test Item Value Reference Range Interpretation Comments MCV (test code = MCV) 80.8 80.0-98.0 [place] [address]-10-15 11:23:00 Test Item Value Reference Range Interpretation Comments MCH (test code = MCH) 26.1 pg 27.0-31.0 [place] [address]-10-15 11:23:00 Test Item Value Reference Range Interpretation Comments MCHC (test code = MCHC) 32.3 32.0-36.0 [place] 951542-10-15 11:23:00 Test Item Value Reference Range Interpretation Comments RDW (test code = RDW) 16.4 11.5-14.5 [place] 951542-10-15 11:23:00 Test Item Value Reference Range Interpretation Comments Platelet (test code = Platelet) 342 133-450 [place] 951542-10-15 11:23:00 Test Item Value Reference Range Interpretation Comments MPV (test code = MPV) 8.1 7.4-10.4 [place] 951542-10-15 11:23:00 Test Item Value Reference Range Interpretation Comments Segs (test code = Segs) 82.0 45.0-75.0 [place] [address]-10-15 11:23:00 Test Item Value Reference Range Interpretation Comments Lymphocytes (test code = Lymphocytes) 8.9 20.0-40.0 [place] [address]-10-15 11:23:00 Test Item Value Reference Range Interpretation Comments Monocytes (test code = Monocytes) 6.0 2.0-12.0 [place] 951542-10-15 11:23:00 Test Item Value Reference Range Interpretation Comments Eosinophils (test code = 2.8 See_Comment [A utomated message] The Eosinophils) system which ge nerated this result tra nsmitted reference range : <=4.0. The reference r quynh was not used to int erpret this result as normal/abnormal . [place] [address]-10-15 11:23:00 Test Item Value Reference Range Interpretation Comments Basophils (test code = 0.3 See_Comment [Aut omated message] The Basophils) system which ge nerated this result tra nsmitted reference range : <=1.0. The reference r quynh was not used to int erpret this result as normal/abnormal . [place] 951542-10-15 11:23:00 Test Item Value Reference Range Interpretation Comments Neutrophils # (test code = Neutrophils 12.7 1.5-8.1 #) [place] 951542-10-15 11:23:00 Test Item Value Reference Range Interpretation Comments Lymphocytes # (test code = Lymphocytes 1.4 1.0-5.5 #) [place] [address]-10-15 11:23:00 Test Item Value Reference Range Interpretation Comments Monocytes # (test code 0.9 See_Comment [Aut omated message] The = Monocytes #) system which generated this result tra nsmitted reference range : <=0.8. The reference r quynh was not used to int erpret this result as normal/abnormal . [facility] 11:23:00 Test Item Value Reference Range Interpretation Comments Eosinophils # (test code 0.4 See_Comment [A utomated message] The = Eosinophils #) system whic h generated this result tra nsmitted reference range : <=0.5. The reference r quynh was not used to int erpret this result as normal/abnormal . [facility]2022-10-15 11:23:00 Test Item Value Reference Range Interpretation Comments Glucose Lvl (test code = Glucose Lvl) 96 70-99 [facility]2022-10-15 11:23:00 Test Item Value Reference Range Interpretation Comments BUN (test code = BUN) 13 7-22 [place] 618542-10-15 11:23:00 Test Item Value Reference Range Interpretation Comments Creatinine Lvl (test code = Creatinine 0.57 0.50-1.40 Lvl) [facility]2022-10-15 11:23:00 Test Item Value Reference Range Interpretation Comments Sodium Lvl (test code = Sodium Lvl) 137 135-145 [place] 618542-10-15 11:23:00 Test Item Value Reference Range Interpretation Comments Potassium Lvl (test code = Potassium 3.6 3.5-5.1 Lvl) [place] 618542-10-15 11:23:00 Test Item Value Reference Range Interpretation Comments Chloride Lvl (test code = Chloride Lvl) 100 95-109 [place] [address]-10-15 11:23:00 Test Item Value Reference Range Interpretation Comments CO2 (test code = CO2) 30 24-32 [facility]2022-10-15 11:23:00 Test Item Value Reference Range Interpretation Comments Calcium Lvl (test code = Calcium Lvl) 9.2 8.5-10.5 [place] 618542-10-15 11:23:00 Test Item Value Reference Range Interpretation Comments AGAP (test code = AGAP) 10.6 10.0-20.0 [place] 618542-10-15 11:23:00 Test Item Value Reference Range Interpretation Comments eGFR (test code = eGFR) 109 [place] 618542-10-15 11:23:00 Test Item Value Reference Range Interpretation Comments Magnesium Lvl (test code = Magnesium 2.1 1.8-2.4 Lvl) [place] [address]-10-15 11:23:00 Test Item Value Reference Range Interpretation Comments Phosphorus (test code = Phosphorus) 4.5 2.5-4.5 [place] [address]-10-15 11:23:00 Test Item Value Reference Range Interpretation Comments WBC (test code = WBC) 15.4 3.7-10.4 [place] [address]-10-15 11:23:00 Test Item Value Reference Range Interpretation Comments RBC (test code = RBC) 3.93 4.20-5.40 [place] [address]-10-15 11:23:00 Test Item Value Reference Range Interpretation Comments Hgb (test code = Hgb) 10.3 12.0-16.0 [place] [address]-10-15 11:23:00 Test Item Value Reference Range Interpretation Comments Hct (test code = Hct) 31.8 36.0-48.0 [place] [address]-10-15 11:23:00 Test Item Value Reference Range Interpretation Comments MCV (test code = MCV) 80.8 80.0-98.0 [place] [address]-10-15 11:23:00 Test Item Value Reference Range Interpretation Comments MCH (test code = MCH) 26.1 pg 27.0-31.0 [place] [address]-10-15 11:23:00 Test Item Value Reference Range Interpretation Comments MCHC (test code = MCHC) 32.3 32.0-36.0 [place] [address]-10-15 11:23:00 Test Item Value Reference Range Interpretation Comments RDW (test code = RDW) 16.4 11.5-14.5 [place] [address]-10-15 11:23:00 Test Item Value Reference Range Interpretation Comments Glucose Lvl (test code = Glucose Lvl) 96 70-99 [place] 618542-10-15 11:23:00 Test Item Value Reference Range Interpretation Comments BUN (test code = BUN) 13 7-22 [place] 618542-10-15 11:23:00 Test Item Value Reference Range Interpretation Comments Creatinine Lvl (test code = Creatinine 0.57 0.50-1.40 Lvl) [place] 618542-10-15 11:23:00 Test Item Value Reference Range Interpretation Comments Sodium Lvl (test code = Sodium Lvl) 137 135-145 [place] 618542-10-15 11:23:00 Test Item Value Reference Range Interpretation Comments Potassium Lvl (test code = Potassium 3.6 3.5-5.1 Lvl) [place] 618542-10-15 11:23:00 Test Item Value Reference Range Interpretation Comments Chloride Lvl (test code = Chloride Lvl) 100 95-109 [place] 618542-10-15 11:23:00 Test Item Value Reference Range Interpretation Comments CO2 (test code = CO2) 30 24-32 [place] 618542-10-15 11:23:00 Test Item Value Reference Range Interpretation Comments Calcium Lvl (test code = Calcium Lvl) 9.2 8.5-10.5 [place] 618542-10-15 11:23:00 Test Item Value Reference Range Interpretation Comments AGAP (test code = AGAP) 10.6 10.0-20.0 [place] 618542-10-15 11:23:00 Test Item Value Reference Range Interpretation Comments eGFR (test code = eGFR) 109 [place] 618542-10-15 11:23:00 Test Item Value Reference Range Interpretation Comments Magnesium Lvl (test code = Magnesium 2.1 1.8-2.4 Lvl) [place] 618542-10-15 11:23:00 Test Item Value Reference Range Interpretation Comments Phosphorus (test code = Phosphorus) 4.5 2.5-4.5 [place] 951542-10-15 11:23:00 Test Item Value Reference Range Interpretation Comments WBC (test code = WBC) 15.4 3.7-10.4 [place] 951542-10-15 11:23:00 Test Item Value Reference Range Interpretation Comments RBC (test code = RBC) 3.93 4.20-5.40 [place] 951542-10-15 11:23:00 Test Item Value Reference Range Interpretation Comments Hgb (test code = Hgb) 10.3 12.0-16.0 [place] 951542-10-15 11:23:00 Test Item Value Reference Range Interpretation Comments Hct (test code = Hct) 31.8 36.0-48.0 [place] 951542-10-15 11:23:00 Test Item Value Reference Range Interpretation Comments MCV (test code = MCV) 80.8 80.0-98.0 [facility]YsrdoagBGUWLJCVKE8180-49-69 11:23:00 Test Item Value Reference Range Interpretation Comments MCH (test code = MCH) 26.1 pg 27.0-31.0 [place] 951542-10-15 11:23:00 Test Item Value Reference Range Interpretation Comments MCHC (test code = MCHC) 32.3 32.0-36.0 [facility] HospitalYfgkignHMMQNAWTKJ6443-40-02 11:23:00 Test Item Value Reference Range Interpretation Comments RDW (test code = RDW) 16.4 11.5-14.5 [facility] HospitalGlgmjxgMMOHUINUNO5483-25-19 11:23:00 Test Item Value Reference Range Interpretation Comments Platelet (test code = Platelet) 342 133-450 [facility] HospitalNwzuycnRFWMQMPMPG0851-82-18 11:23:00 Test Item Value Reference Range Interpretation Comments MPV (test code = MPV) 8.1 7.4-10.4 [place] 951542-10-15 11:23:00 Test Item Value Reference Range Interpretation Comments Segs (test code = Segs) 82.0 45.0-75.0 [facility] HospitalXbokyuuMTHQMNYXVD9233-43-25 11:23:00 Test Item Value Reference Range Interpretation Comments Lymphocytes (test code = Lymphocytes) 8.9 20.0-40.0 [place] 951542-10-15 11:23:00 Test Item Value Reference Range Interpretation Comments Monocytes (test code = Monocytes) 6.0 2.0-12.0 [facility] HospitalEhfejnsGCHVLVCTNC1087-08-27 11:23:00 Test Item Value Reference Range Interpretation Comments Eosinophils (test code = 2.8 See_Comment [A utomated message] The Eosinophils) system which ge nerated this result tra nsmitted reference range : <=4.0. The reference r quynh was not used to int erpret this result as normal/abnormal . [facility] HospitalDffenlvYHBEWTWAOW3155-16-83 11:23:00 Test Item Value Reference Range Interpretation Comments Basophils (test code = 0.3 See_Comment [Aut omated message] The Basophils) system which ge nerated this result tra nsmitted reference range : <=1.0. The reference r quynh was not used to int erpret this result as normal/abnormal . [facility] HospitalFkjxksnHTMGBIFLZZ6218-17-57 11:23:00 Test Item Value Reference Range Interpretation Comments Neutrophils # (test code = Neutrophils 12.7 1.5-8.1 #) [facility] HospitalMbmufawHXCGAJHTFY7553-66-68 11:23:00 Test Item Value Reference Range Interpretation Comments Lymphocytes # (test code = Lymphocytes 1.4 1.0-5.5 #) [facility] HospitalNltfddrTVBBKASGNV6493-19-87 11:23:00 Test Item Value Reference Range Interpretation Comments Monocytes # (test code 0.9 See_Comment [Aut omated message] The = Monocytes #) system which generated this result tra nsmitted reference range : <=0.8. The reference r quynh was not used to int erpret this result as normal/abnormal . [facility] HospitalEqwhgydISZCZANXYA5065-55-53 11:23:00 Test Item Value Reference Range Interpretation Comments Eosinophils # (test code 0.4 See_Comment [A utomated message] The = Eosinophils #) system whic h generated this result tra nsmitted reference range : <=0.5. The reference r quynh was not used to int erpret this result as normal/abnormal . [facility] HospitalEyjrfbfOHJPTQQEBR8804-05-06 16:51:00 Test Item Value Reference Range Interpretation Comments PT (test code = PT) 14.9 s 12.0-14.7 [facility] HospitalKajfjkdXXQNZXYHCX9955-55-33 16:51:00 Test Item Value Reference Range Interpretation Comments INR (test code = INR) 1.18 1 0.85-1.17 [facility] HospitalXpuoopfBINSWVMFRD7133-20-78 16:51:00 Test Item Value Reference Range Interpretation Comments PTT (test code = PTT) 41.3 s 22.9-35.8 [facility] HospitalPdirrqlXTXOJONGQA0580-07-94 16:51:00 Test Item Value Reference Range Interpretation Comments PT (test code = PT) 14.9 s 12.0-14.7 [facility] HospitalNnimffvFWRLQBWRXF4093-69-78 16:51:00 Test Item Value Reference Range Interpretation Comments INR (test code = INR) 1.18 1 0.85-1.17 [facility] HospitalGoyqklxABVFIGJUDU7646-17-43 16:51:00 Test Item Value Reference Range Interpretation Comments PTT (test code = PTT) 41.3 s 22.9-35.8 [facility] HospitalCbspaqeWTFAGYPRTV9528-76-51 16:51:00 Test Item Value Reference Range Interpretation Comments PT (test code = PT) 14.9 s 12.0-14.7 [facility] HospitalAlhkkyaCQHYPXQVJB3243-83-50 16:51:00 Test Item Value Reference Range Interpretation Comments INR (test code = INR) 1.18 1 0.85-1.17 [facility] HospitalTltbwfrEOYGESSXOK7103-53-12 16:51:00 Test Item Value Reference Range Interpretation Comments PTT (test code = PTT) 41.3 s 22.9-35.8 [facility] HospitalFidjtdpXAPYIONMMN9050-61-62 16:51:00 Test Item Value Reference Range Interpretation Comments PT (test code = PT) 14.9 s 12.0-14.7 [facility] HospitalXsqijyhKTIZCNTDXE9476-51-56 16:51:00 Test Item Value Reference Range Interpretation Comments INR (test code = INR) 1.18 1 0.85-1.17 [facility] HospitalWhlekgrYKGIRNVEHC4164-94-70 16:51:00 Test Item Value Reference Range Interpretation Comments PTT (test code = PTT) 41.3 s 22.9-35.8 [facility] HospitalHevaijzHCQKNHBZNN1561-42-31 16:51:00 Test Item Value Reference Range Interpretation Comments PT (test code = PT) 14.9 s 12.0-14.7 [facility] HospitalJubdicxAOSHRUDXRZ0289-21-32 16:51:00 Test Item Value Reference Range Interpretation Comments INR (test code = INR) 1.18 1 0.85-1.17 [facility] HospitalPtvzhycTXYSROGRMR9165-93-41 16:51:00 Test Item Value Reference Range Interpretation Comments PTT (test code = PTT) 41.3 s 22.9-35.8 [facility] HospitalPrdtdjtKAKWSOXEMU7021-17-74 16:51:00 Test Item Value Reference Range Interpretation Comments PT (test code = PT) 14.9 s 12.0-14.7 [place] 951542-10-14 16:51:00 Test Item Value Reference Range Interpretation Comments INR (test code = INR) 1.18 1 0.85-1.17 [facility] HospitalJkxmqctUQIXUEYWOI9440-51-86 16:51:00 Test Item Value Reference Range Interpretation Comments PTT (test code = PTT) 41.3 s 22.9-35.8 [facility] HospitalExdeiimBNEPMYLJEV5327-90-15 16:51:00 Test Item Value Reference Range Interpretation Comments PT (test code = PT) 14.9 s 12.0-14.7 [facility] HospitalSfrsgnfNKRUQRUZXX5275-92-25 16:51:00 Test Item Value Reference Range Interpretation Comments INR (test code = INR) 1.18 1 0.85-1.17 [facility] HospitalEzubkjyYKRQMHZMHK8611-44-09 16:51:00 Test Item Value Reference Range Interpretation Comments PTT (test code = PTT) 41.3 s 22.9-35.8 [facility] HospitalUtotkveRWHWPNMHDA6310-29-83 16:51:00 Test Item Value Reference Range Interpretation Comments PT (test code = PT) 14.9 s 12.0-14.7 [facility] HospitalEgvkzanMYVTXDDHUU4787-66-68 16:51:00 Test Item Value Reference Range Interpretation Comments INR (test code = INR) 1.18 1 0.85-1.17 [facility] HospitalJyuzoqaVILMRUHPTB4098-88-21 16:51:00 Test Item Value Reference Range Interpretation Comments PTT (test code = PTT) 41.3 s 22.9-35.8 [facility] HospitalAikhzxmSRMJDMPJYH8134-60-73 16:51:00 Test Item Value Reference Range Interpretation Comments PT (test code = PT) 14.9 s 12.0-14.7 [facility] HospitalCtqituwWQXHOXUCPO8429-84-08 16:51:00 Test Item Value Reference Range Interpretation Comments INR (test code = INR) 1.18 1 0.85-1.17 [facility] HospitalCjetbafIHADIIFKLC1549-88-73 16:51:00 Test Item Value Reference Range Interpretation Comments PTT (test code = PTT) 41.3 s 22.9-35.8 [facility] HospitalKltmjylJWFIDZWVWA6106-95-94 16:51:00 Test Item Value Reference Range Interpretation Comments PT (test code = PT) 14.9 s 12.0-14.7 [place] 951542-10-14 16:51:00 Test Item Value Reference Range Interpretation Comments INR (test code = INR) 1.18 1 0.85-1.17 [place] 951542-10-14 16:51:00 Test Item Value Reference Range Interpretation Comments PTT (test code = PTT) 41.3 s 22.9-35.8 [place] [address]-10-14 08:42:00 Test Item Value Reference Range Interpretation Comments Magnesium Lvl (test code = Magnesium 2.2 1.8-2.4 Lvl) [place] 618542-10-14 08:42:00 Test Item Value Reference Range Interpretation Comments Glucose Lvl (test code = Glucose Lvl) 89 70-99 [place] 618542-10-14 08:42:00 Test Item Value Reference Range Interpretation Comments BUN (test code = BUN) 8 7-22 [place] 618542-10-14 08:42:00 Test Item Value Reference Range Interpretation Comments Creatinine Lvl (test code = Creatinine 0.59 0.50-1.40 Lvl) [place] 618542-10-14 08:42:00 Test Item Value Reference Range Interpretation Comments Sodium Lvl (test code = Sodium Lvl) 142 135-145 [place] 618542-10-14 08:42:00 Test Item Value Reference Range Interpretation Comments Potassium Lvl (test code = Potassium 3.6 3.5-5.1 Lvl) [place] 618542-10-14 08:42:00 Test Item Value Reference Range Interpretation Comments Chloride Lvl (test code = Chloride Lvl) 103 95-109 [place] 618542-10-14 08:42:00 Test Item Value Reference Range Interpretation Comments CO2 (test code = CO2) 30 24-32 [place] 618542-10-14 08:42:00 Test Item Value Reference Range Interpretation Comments Calcium Lvl (test code = Calcium Lvl) 9.8 8.5-10.5 [place] 618542-10-14 08:42:00 Test Item Value Reference Range Interpretation Comments Total Protein (test code = Total 7.0 6.4-8.4 Protein) [place] 618542-10-14 08:42:00 Test Item Value Reference Range Interpretation Comments Albumin Lvl (test code = Albumin Lvl) 2.8 3.5-5.0 [facility] [employer] [id number] 08:42:00 Test Item Value Reference Range Interpretation Comments ALT (test code = ALT) 20 See_Comment [Auto mated message] The system which ge nerated this result transmit fabiano reference range : <=65. The reference range was not used to interpr et this result as aleks l/abnormal. [facility] [employer] [id number] 08:42:00 Test Item Value Reference Range Interpretation Comments AST (test code = AST) 11 See_Comment [Auto mated message] The system which ge nerated this result transmit fabiano reference range : <=37. The reference range was not used to interpr et this result as aleks l/abnormal. [facility] [employer] CJDLP2608-56-43 08:42:00 Test Item Value Reference Range Interpretation Comments Alk Phos (test code = Alk Phos) 108 39-136 [facility] [employer] TFKJV7590-92-68 08:42:00 Test Item Value Reference Range Interpretation Comments Bili Total (test code = Bili Total) 0.4 0.2-1.3 [facility] [id number] 08:42:00 Test Item Value Reference Range Interpretation Comments AGAP (test code = AGAP) 12.6 10.0-20.0 [facility] [id number] 08:42:00 Test Item Value Reference Range Interpretation Comments B/C Ratio (test code = B/C Ratio) 14 1 6-25 [facility] FVQOR2902-77-78 08:42:00 Test Item Value Reference Range Interpretation Comments Globulin (test code = Globulin) 4.2 2.7-4.2 [facility] [id number] 08:42:00 Test Item Value Reference Range Interpretation Comments A/G Ratio (test code = A/G Ratio) 0.7 1 0.7-1.6 [facility] [id number] 08:42:00 Test Item Value Reference Range Interpretation Comments eGFR (test code = eGFR) 108 [facility] [employer] DKOWZ3314-53-04 08:42:00 Test Item Value Reference Range Interpretation Comments Phosphorus (test code = Phosphorus) 5.4 2.5-4.5 [facility]rqkarlGFKVHGTBLM9397-45-83 08:42:00 Test Item Value Reference Range Interpretation Comments WBC (test code = WBC) 12.5 3.7-10.4 [facility] HospitalRqayqtkCSPVBVDHNI7727-17-26 08:42:00 Test Item Value Reference Range Interpretation Comments RBC (test code = RBC) 3.94 4.20-5.40 [facility] HospitalTkqpbyeCBNMRCKTFI0510-98-57 08:42:00 Test Item Value Reference Range Interpretation Comments Hgb (test code = Hgb) 10.6 12.0-16.0 [facility] HospitalJjggzamESYHIUQSAZ2395-95-55 08:42:00 Test Item Value Reference Range Interpretation Comments Hct (test code = Hct) 31.6 36.0-48.0 [facility] HospitalKsjicouEPLIKQODQR3029-38-95 08:42:00 Test Item Value Reference Range Interpretation Comments MCV (test code = MCV) 80.2 80.0-98.0 [facility] HospitalQimcfneHBHBZMTMZH3193-97-66 08:42:00 Test Item Value Reference Range Interpretation Comments MCH (test code = MCH) 26.9 pg 27.0-31.0 [facility] HospitalFeytsviXADWBADKEH7276-74-86 08:42:00 Test Item Value Reference Range Interpretation Comments MCHC (test code = MCHC) 33.6 32.0-36.0 [facility] HospitalRkzeoeqMNGOEEZPBO7390-96-69 08:42:00 Test Item Value Reference Range Interpretation Comments RDW (test code = RDW) 16.4 11.5-14.5 [facility] HospitalOhfutigUIJUHOPJLT1101-88-96 08:42:00 Test Item Value Reference Range Interpretation Comments Platelet (test code = Platelet) 339 133-450 [facility] HospitalKpcuiifHEIGTLDJZW3945-86-66 08:42:00 Test Item Value Reference Range Interpretation Comments MPV (test code = MPV) 8.0 7.4-10.4 [facility] HospitalSrqekfgVMZZADKVWM0313-48-50 08:42:00 Test Item Value Reference Range Interpretation Comments Segs (test code = Segs) 77.8 45.0-75.0 [facility] HospitalQddnvraJZKJSUHCBU1019-96-01 08:42:00 Test Item Value Reference Range Interpretation Comments Lymphocytes (test code = Lymphocytes) 13.5 20.0-40.0 [facility] HospitalQbkdhovQZXHOLGKRA0827-80-51 08:42:00 Test Item Value Reference Range Interpretation Comments Monocytes (test code = Monocytes) 6.5 2.0-12.0 [place] [address]-10-14 08:42:00 Test Item Value Reference Range Interpretation Comments Eosinophils (test code = 1.6 See_Comment [A utomated message] The Eosinophils) system which ge nerated this result tra nsmitted reference range : <=4.0. The reference r quynh was not used to int erpret this result as normal/abnormal . [place] [address]-10-14 08:42:00 Test Item Value Reference Range Interpretation Comments Basophils (test code = 0.6 See_Comment [Aut omated message] The Basophils) system which ge nerated this result tra nsmitted reference range : <=1.0. The reference r quynh was not used to int erpret this result as normal/abnormal . [place] [address]-10-14 08:42:00 Test Item Value Reference Range Interpretation Comments Neutrophils # (test code = Neutrophils 9.8 1.5-8.1 #) [address]10-14 08:42:00 Test Item Value Reference Range Interpretation Comments Lymphocytes # (test code = Lymphocytes 1.7 1.0-5.5 #) [place] [address]-10-14 08:42:00 Test Item Value Reference Range Interpretation Comments Monocytes # (test code 0.8 See_Comment [Aut omated message] The = Monocytes #) system which generated this result tra nsmitted reference range : <=0.8. The reference r quynh was not used to int erpret this result as normal/abnormal . [place] [address]-10-14 08:42:00 Test Item Value Reference Range Interpretation Comments Eosinophils # (test code 0.2 See_Comment [A utomated message] The = Eosinophils #) system whic h generated this result tra nsmitted reference range : <=0.5. The reference r quynh was not used to int erpret this result as normal/abnormal . [place] [address]-10-14 08:42:00 Test Item Value Reference Range Interpretation Comments Basophils # (test code 0.1 See_Comment [Aut omated message] The = Basophils #) system which generated this result tra nsmitted reference range : <=0.2. The reference r quynh was not used to int erpret this result as normal/abnormal . [place] 618542-10-14 08:42:00 Test Item Value Reference Range Interpretation Comments Magnesium Lvl (test code = Magnesium 2.2 1.8-2.4 Lvl) [place] 618542-10-14 08:42:00 Test Item Value Reference Range Interpretation Comments Glucose Lvl (test code = Glucose Lvl) 89 70-99 [place] 618542-10-14 08:42:00 Test Item Value Reference Range Interpretation Comments BUN (test code = BUN) 8 7-22 [place] 618542-10-14 08:42:00 Test Item Value Reference Range Interpretation Comments Creatinine Lvl (test code = Creatinine 0.59 0.50-1.40 Lvl) [place]18542-10-14 08:42:00 Test Item Value Reference Range Interpretation Comments Sodium Lvl (test code = Sodium Lvl) 142 135-145 [place] 618542-10-14 08:42:00 Test Item Value Reference Range Interpretation Comments Potassium Lvl (test code = Potassium 3.6 3.5-5.1 Lvl) [place] 618542-10-14 08:42:00 Test Item Value Reference Range Interpretation Comments Chloride Lvl (test code = Chloride Lvl) 103 95-109 [place] 618542-10-14 08:42:00 Test Item Value Reference Range Interpretation Comments CO2 (test code = CO2) 30 24-32 [place]18542-10-14 08:42:00 Test Item Value Reference Range Interpretation Comments Calcium Lvl (test code = Calcium Lvl) 9.8 8.5-10.5 [place] 618542-10-14 08:42:00 Test Item Value Reference Range Interpretation Comments Total Protein (test code = Total 7.0 6.4-8.4 Protein) [place] 618542-10-14 08:42:00 Test Item Value Reference Range Interpretation Comments Albumin Lvl (test code = Albumin Lvl) 2.8 3.5-5.0 [place]18542-10-14 08:42:00 Test Item Value Reference Range Interpretation Comments ALT (test code = ALT) 20 See_Comment [Auto mated message] The system which ge nerated this result transmit fabiano reference range : <=65. The reference range was not used to interpr et this result as aleks l/abnormal. [place]18542-10-14 08:42:00 Test Item Value Reference Range Interpretation Comments AST (test code = AST) 11 See_Comment [Auto mated message] The system which ge nerated this result transmit fabiano reference range : <=37. The reference range was not used to interpr et this result as aleks l/abnormal. [place]18542-10-14 08:42:00 Test Item Value Reference Range Interpretation Comments Alk Phos (test code = Alk Phos) 108 39-136 [place] 618542-10-14 08:42:00 Test Item Value Reference Range Interpretation Comments Bili Total (test code = Bili Total) 0.4 0.2-1.3 [place] [address]-10-14 08:42:00 Test Item Value Reference Range Interpretation Comments AGAP (test code = AGAP) 12.6 10.0-20.0 [place] 618542-10-14 08:42:00 Test Item Value Reference Range Interpretation Comments B/C Ratio (test code = B/C Ratio) 14 1 6-25 [place] [address]-10-14 08:42:00 Test Item Value Reference Range Interpretation Comments Globulin (test code = Globulin) 4.2 2.7-4.2 [place] 618542-10-14 08:42:00 Test Item Value Reference Range Interpretation Comments A/G Ratio (test code = A/G Ratio) 0.7 1 0.7-1.6 [place] 618542-10-14 08:42:00 Test Item Value Reference Range Interpretation Comments eGFR (test code = eGFR) 108 [place] 618542-10-14 08:42:00 Test Item Value Reference Range Interpretation Comments Phosphorus (test code = Phosphorus) 5.4 2.5-4.5 [place] 951542-10-14 08:42:00 Test Item Value Reference Range Interpretation Comments WBC (test code = WBC) 12.5 3.7-10.4 [place] 951542-10-14 08:42:00 Test Item Value Reference Range Interpretation Comments RBC (test code = RBC) 3.94 4.20-5.40 [place] [address]-10-14 08:42:00 Test Item Value Reference Range Interpretation Comments Hgb (test code = Hgb) 10.6 12.0-16.0 [place] 951542-10-14 08:42:00 Test Item Value Reference Range Interpretation Comments Hct (test code = Hct) 31.6 36.0-48.0 [facility]RGLUJNVFZF0634-55-47 08:42:00 Test Item Value Reference Range Interpretation Comments MCV (test code = MCV) 80.2 80.0-98.0 [place] 951542-10-14 08:42:00 Test Item Value Reference Range Interpretation Comments MCH (test code = MCH) 26.9 pg 27.0-31.0 [facility]HcaujzhVRJVKSXFHN4586-45-21 08:42:00 Test Item Value Reference Range Interpretation Comments MCHC (test code = MCHC) 33.6 32.0-36.0 [facility] HospitalZovlnwtGUIUHYJNMF5689-61-47 08:42:00 Test Item Value Reference Range Interpretation Comments RDW (test code = RDW) 16.4 11.5-14.5 [facility] HospitalXmnaicdQODGLZYNIC2224-44-67 08:42:00 Test Item Value Reference Range Interpretation Comments Platelet (test code = Platelet) 339 133-450 [facility] HospitalIbrmimkXWWGIOVDGQ8771-74-38 08:42:00 Test Item Value Reference Range Interpretation Comments MPV (test code = MPV) 8.0 7.4-10.4 [facility] HospitalKracqfsVVPPKHNTSM5457-31-09 08:42:00 Test Item Value Reference Range Interpretation Comments Segs (test code = Segs) 77.8 45.0-75.0 [facility] HospitalDixfpehJRHVVKCODC1815-81-33 08:42:00 Test Item Value Reference Range Interpretation Comments Lymphocytes (test code = Lymphocytes) 13.5 20.0-40.0 [place] 951542-10-14 08:42:00 Test Item Value Reference Range Interpretation Comments Monocytes (test code = Monocytes) 6.5 2.0-12.0 [place] [address]-10-14 08:42:00 Test Item Value Reference Range Interpretation Comments Eosinophils (test code = 1.6 See_Comment [A utomated message] The Eosinophils) system which ge nerated this result tra nsmitted reference range : <=4.0. The reference r quynh was not used to int erpret this result as normal/abnormal . [place] 951542-10-14 08:42:00 Test Item Value Reference Range Interpretation Comments Basophils (test code = 0.6 See_Comment [Aut omated message] The Basophils) system which ge nerated this result tra nsmitted reference range : <=1.0. The reference r quynh was not used to int erpret this result as normal/abnormal . [place] [address]-10-14 08:42:00 Test Item Value Reference Range Interpretation Comments Neutrophils # (test code = Neutrophils 9.8 1.5-8.1 #) [place] [address]-10-14 08:42:00 Test Item Value Reference Range Interpretation Comments Lymphocytes # (test code = Lymphocytes 1.7 1.0-5.5 #) [place] [address]-10-14 08:42:00 Test Item Value Reference Range Interpretation Comments Monocytes # (test code 0.8 See_Comment [Aut omated message] The = Monocytes #) system which generated this result tra nsmitted reference range : <=0.8. The reference r quynh was not used to int erpret this result as normal/abnormal . [place] [address]-10-14 08:42:00 Test Item Value Reference Range Interpretation Comments Eosinophils # (test code 0.2 See_Comment [A utomated message] The = Eosinophils #) system whic h generated this result tra nsmitted reference range : <=0.5. The reference r quynh was not used to int erpret this result as normal/abnormal . [place] [address]-10-14 08:42:00 Test Item Value Reference Range Interpretation Comments Basophils # (test code 0.1 See_Comment [Aut omated message] The = Basophils #) system which generated this result tra nsmitted reference range : <=0.2. The reference r quynh was not used to int erpret this result as normal/abnormal . [facility] [id number] 08:42:00 Test Item Value Reference Range Interpretation Comments Magnesium Lvl (test code = Magnesium 2.2 1.8-2.4 Lvl) [facility] [id number] 08:42:00 Test Item Value Reference Range Interpretation Comments Glucose Lvl (test code = Glucose Lvl) 89 70-99 [place] [address]-10-14 08:42:00 Test Item Value Reference Range Interpretation Comments BUN (test code = BUN) 8 7-22 [place] [address]-10-14 08:42:00 Test Item Value Reference Range Interpretation Comments Creatinine Lvl (test code = Creatinine 0.59 0.50-1.40 Lvl) [place] [address]-10-14 08:42:00 Test Item Value Reference Range Interpretation Comments Sodium Lvl (test code = Sodium Lvl) 142 135-145 [place] [address]-10-14 08:42:00 Test Item Value Reference Range Interpretation Comments Potassium Lvl (test code = Potassium 3.6 3.5-5.1 Lvl) [place] [address]-10-14 08:42:00 Test Item Value Reference Range Interpretation Comments Chloride Lvl (test code = Chloride Lvl) 103 95-109 [place] 618542-10-14 08:42:00 Test Item Value Reference Range Interpretation Comments CO2 (test code = CO2) 30 24-32 [place] [address]-10-14 08:42:00 Test Item Value Reference Range Interpretation Comments Calcium Lvl (test code = Calcium Lvl) 9.8 8.5-10.5 [place] 618542-10-14 08:42:00 Test Item Value Reference Range Interpretation Comments Total Protein (test code = Total 7.0 6.4-8.4 Protein) [place] 618542-10-14 08:42:00 Test Item Value Reference Range Interpretation Comments Albumin Lvl (test code = Albumin Lvl) 2.8 3.5-5.0 [place] 618542-10-14 08:42:00 Test Item Value Reference Range Interpretation Comments ALT (test code = ALT) 20 See_Comment [Auto mated message] The system which ge nerated this result transmit fabiano reference range : <=65. The reference range was not used to interpr et this result as aleks l/abnormal. [place] [address]-10-14 08:42:00 Test Item Value Reference Range Interpretation Comments AST (test code = AST) 11 See_Comment [Auto mated message] The system which ge nerated this result transmit fabiano reference range : <=37. The reference range was not used to interpr et this result as aleks l/abnormal. [place] 618542-10-14 08:42:00 Test Item Value Reference Range Interpretation Comments Alk Phos (test code = Alk Phos) 108 39-136 [place] 618542-10-14 08:42:00 Test Item Value Reference Range Interpretation Comments Bili Total (test code = Bili Total) 0.4 0.2-1.3 [place] [address]-10-14 08:42:00 Test Item Value Reference Range Interpretation Comments AGAP (test code = AGAP) 12.6 10.0-20.0 [place] [address]-10-14 08:42:00 Test Item Value Reference Range Interpretation Comments B/C Ratio (test code = B/C Ratio) 14 1 6-25 [place] [address]-10-14 08:42:00 Test Item Value Reference Range Interpretation Comments Globulin (test code = Globulin) 4.2 2.7-4.2 [place] 618542-10-14 08:42:00 Test Item Value Reference Range Interpretation Comments A/G Ratio (test code = A/G Ratio) 0.7 1 0.7-1.6 [place] [address]-10-14 08:42:00 Test Item Value Reference Range Interpretation Comments eGFR (test code = eGFR) 108 [place] 618542-10-14 08:42:00 Test Item Value Reference Range Interpretation Comments Phosphorus (test code = Phosphorus) 5.4 2.5-4.5 [place] 951542-10-14 08:42:00 Test Item Value Reference Range Interpretation Comments WBC (test code = WBC) 12.5 3.7-10.4 [place] [address]-10-14 08:42:00 Test Item Value Reference Range Interpretation Comments RBC (test code = RBC) 3.94 4.20-5.40 [place] [address]-10-14 08:42:00 Test Item Value Reference Range Interpretation Comments Hgb (test code = Hgb) 10.6 12.0-16.0 [place] [address]-10-14 08:42:00 Test Item Value Reference Range Interpretation Comments Hct (test code = Hct) 31.6 36.0-48.0 [place] 951542-10-14 08:42:00 Test Item Value Reference Range Interpretation Comments MCV (test code = MCV) 80.2 80.0-98.0 [place] 951542-10-14 08:42:00 Test Item Value Reference Range Interpretation Comments MCH (test code = MCH) 26.9 pg 27.0-31.0 [place] 951542-10-14 08:42:00 Test Item Value Reference Range Interpretation Comments MCHC (test code = MCHC) 33.6 32.0-36.0 [place] 951542-10-14 08:42:00 Test Item Value Reference Range Interpretation Comments RDW (test code = RDW) 16.4 11.5-14.5 [place] 951542-10-14 08:42:00 Test Item Value Reference Range Interpretation Comments Platelet (test code = Platelet) 339 133-450 [facility]LojhzfvXPJCOLDJWD2715-02-50 08:42:00 Test Item Value Reference Range Interpretation Comments MPV (test code = MPV) 8.0 7.4-10.4 [place] 951542-10-14 08:42:00 Test Item Value Reference Range Interpretation Comments Segs (test code = Segs) 77.8 45.0-75.0 [facility] HospitalIpdgdrwEMVZDSUTWC1567-79-00 08:42:00 Test Item Value Reference Range Interpretation Comments Lymphocytes (test code = Lymphocytes) 13.5 20.0-40.0 [place] 951542-10-14 08:42:00 Test Item Value Reference Range Interpretation Comments Monocytes (test code = Monocytes) 6.5 2.0-12.0 [place] 951542-10-14 08:42:00 Test Item Value Reference Range Interpretation Comments Eosinophils (test code = 1.6 See_Comment [A utomated message] The Eosinophils) system which ge nerated this result tra nsmitted reference range : <=4.0. The reference r quynh was not used to int erpret this result as normal/abnormal . [place] 951542-10-14 08:42:00 Test Item Value Reference Range Interpretation Comments Basophils (test code = 0.6 See_Comment [Aut omated message] The Basophils) system which ge nerated this result tra nsmitted reference range : <=1.0. The reference r quynh was not used to int erpret this result as normal/abnormal . [place] [address]-10-14 08:42:00 Test Item Value Reference Range Interpretation Comments Neutrophils # (test code = Neutrophils 9.8 1.5-8.1 #) [place] [address]-10-14 08:42:00 Test Item Value Reference Range Interpretation Comments Lymphocytes # (test code = Lymphocytes 1.7 1.0-5.5 #) [place] [address]-10-14 08:42:00 Test Item Value Reference Range Interpretation Comments Monocytes # (test code 0.8 See_Comment [Aut omated message] The = Monocytes #) system which generated this result tra nsmitted reference range : <=0.8. The reference r quynh was not used to int erpret this result as normal/abnormal . [place] [address]-10-14 08:42:00 Test Item Value Reference Range Interpretation Comments Eosinophils # (test code 0.2 See_Comment [A utomated message] The = Eosinophils #) system whic h generated this result tra nsmitted reference range : <=0.5. The reference r quynh was not used to int erpret this result as normal/abnormal . [place] [address]-10-14 08:42:00 Test Item Value Reference Range Interpretation Comments Basophils # (test code 0.1 See_Comment [Aut omated message] The = Basophils #) system which generated this result tra nsmitted reference range : <=0.2. The reference r quynh was not used to int erpret this result as normal/abnormal . [facility] [id number] 08:42:00 Test Item Value Reference Range Interpretation Comments Magnesium Lvl (test code = Magnesium 2.2 1.8-2.4 Lvl) [place] 618542-10-14 08:42:00 Test Item Value Reference Range Interpretation Comments Glucose Lvl (test code = Glucose Lvl) 89 70-99 [place] [address]-10-14 08:42:00 Test Item Value Reference Range Interpretation Comments BUN (test code = BUN) 8 7-22 [place] [address]-10-14 08:42:00 Test Item Value Reference Range Interpretation Comments Creatinine Lvl (test code = Creatinine 0.59 0.50-1.40 Lvl) [address]10-14 08:42:00 Test Item Value Reference Range Interpretation Comments Sodium Lvl (test code = Sodium Lvl) 142 135-145 [place] [address]-10-14 08:42:00 Test Item Value Reference Range Interpretation Comments Potassium Lvl (test code = Potassium 3.6 3.5-5.1 Lvl) [address]10-14 08:42:00 Test Item Value Reference Range Interpretation Comments Chloride Lvl (test code = Chloride Lvl) 103 95-109 [address]10-14 08:42:00 Test Item Value Reference Range Interpretation Comments CO2 (test code = CO2) 30 24-32 [address]10-14 08:42:00 Test Item Value Reference Range Interpretation Comments Calcium Lvl (test code = Calcium Lvl) 9.8 8.5-10.5 [address]10-14 08:42:00 Test Item Value Reference Range Interpretation Comments Total Protein (test code = Total 7.0 6.4-8.4 Protein) [address]10-14 08:42:00 Test Item Value Reference Range Interpretation Comments Albumin Lvl (test code = Albumin Lvl) 2.8 3.5-5.0 [address]10-14 08:42:00 Test Item Value Reference Range Interpretation Comments ALT (test code = ALT) 20 See_Comment [Auto mated message] The system which [employer] nerated this result transmit fabiano reference range : <=65. The reference range was not used to interpr et this result as aleks l/abnormal. [place] [address]-10-14 08:42:00 Test Item Value Reference Range Interpretation Comments AST (test code = AST) 11 See_Comment [Auto mated message] The system which [employer] nerated this result transmit fabiano reference range : <=37. The reference range was not used to interpr et this result as aleks l/abnormal. [facility] [id number] 08:42:00 Test Item Value Reference Range Interpretation Comments Alk Phos (test code = Alk Phos) 108 39-136 [facility]2022-10-14 08:42:00 Test Item Value Reference Range Interpretation Comments Bili Total (test code = Bili Total) 0.4 0.2-1.3 [place] 618542-10-14 08:42:00 Test Item Value Reference Range Interpretation Comments AGAP (test code = AGAP) 12.6 10.0-20.0 [place] 618542-10-14 08:42:00 Test Item Value Reference Range Interpretation Comments B/C Ratio (test code = B/C Ratio) 14 1 6-25 [place] 618542-10-14 08:42:00 Test Item Value Reference Range Interpretation Comments Globulin (test code = Globulin) 4.2 2.7-4.2 [place] 618542-10-14 08:42:00 Test Item Value Reference Range Interpretation Comments A/G Ratio (test code = A/G Ratio) 0.7 1 0.7-1.6 [place] 618542-10-14 08:42:00 Test Item Value Reference Range Interpretation Comments eGFR (test code = eGFR) 108 [facility]2022-10-14 08:42:00 Test Item Value Reference Range Interpretation Comments Phosphorus (test code = Phosphorus) 5.4 2.5-4.5 [facility] HospitalQaggwtpLNGLVLYRWK9689-26-65 08:42:00 Test Item Value Reference Range Interpretation Comments WBC (test code = WBC) 12.5 3.7-10.4 [place] 951542-10-14 08:42:00 Test Item Value Reference Range Interpretation Comments RBC (test code = RBC) 3.94 4.20-5.40 [place] 951542-10-14 08:42:00 Test Item Value Reference Range Interpretation Comments Hgb (test code = Hgb) 10.6 12.0-16.0 [place] [address]-10-14 08:42:00 Test Item Value Reference Range Interpretation Comments Hct (test code = Hct) 31.6 36.0-48.0 [place] 951542-10-14 08:42:00 Test Item Value Reference Range Interpretation Comments MCV (test code = MCV) 80.2 80.0-98.0 [address]10-14 08:42:00 Test Item Value Reference Range Interpretation Comments MCH (test code = MCH) 26.9 pg 27.0-31.0 [facility] HospitalHjxieoyKFSVAFMTEJ5138-57-67 08:42:00 Test Item Value Reference Range Interpretation Comments MCHC (test code = MCHC) 33.6 32.0-36.0 [facility] HospitalTacoqxxQSTKBZLXHG7921-81-64 08:42:00 Test Item Value Reference Range Interpretation Comments RDW (test code = RDW) 16.4 11.5-14.5 [place] 951542-10-14 08:42:00 Test Item Value Reference Range Interpretation Comments Platelet (test code = Platelet) 339 133-450 [facility] HospitalGjnclhcUJAWQSLTRX9706-61-72 08:42:00 Test Item Value Reference Range Interpretation Comments MPV (test code = MPV) 8.0 7.4-10.4 [facility] HospitalBgryumlUJLLXKLIOX8422-83-48 08:42:00 Test Item Value Reference Range Interpretation Comments Segs (test code = Segs) 77.8 45.0-75.0 [facility] HospitalFfisamrGQSTVBLKBB9550-62-49 08:42:00 Test Item Value Reference Range Interpretation Comments Lymphocytes (test code = Lymphocytes) 13.5 20.0-40.0 [facility] HospitalJaabyrxRXPOBWQOCU7115-06-81 08:42:00 Test Item Value Reference Range Interpretation Comments Monocytes (test code = Monocytes) 6.5 2.0-12.0 [facility] HospitalAftwdusQTHZMBIQXH4770-21-20 08:42:00 Test Item Value Reference Range Interpretation Comments Eosinophils (test code = 1.6 See_Comment [A utomated message] The Eosinophils) system which ge nerated this result tra nsmitted reference range : <=4.0. The reference r quynh was not used to int erpret this result as normal/abnormal . [place] 951542-10-14 08:42:00 Test Item Value Reference Range Interpretation Comments Basophils (test code = 0.6 See_Comment [Aut omated message] The Basophils) system which ge nerated this result tra nsmitted reference range : <=1.0. The reference r quynh was not used to int erpret this result as normal/abnormal . [place] 951542-10-14 08:42:00 Test Item Value Reference Range Interpretation Comments Neutrophils # (test code = Neutrophils 9.8 1.5-8.1 #) [place] [address]-10-14 08:42:00 Test Item Value Reference Range Interpretation Comments Lymphocytes # (test code = Lymphocytes 1.7 1.0-5.5 #) [place] [address]-10-14 08:42:00 Test Item Value Reference Range Interpretation Comments Monocytes # (test code 0.8 See_Comment [Aut omated message] The = Monocytes #) system which generated this result tra nsmitted reference range : <=0.8. The reference r quynh was not used to int erpret this result as normal/abnormal . [place] [address]-10-14 08:42:00 Test Item Value Reference Range Interpretation Comments Eosinophils # (test code 0.2 See_Comment [A utomated message] The = Eosinophils #) system whic h generated this result tra nsmitted reference range : <=0.5. The reference r quynh was not used to int erpret this result as normal/abnormal . [place] [address]-10-14 08:42:00 Test Item Value Reference Range Interpretation Comments Basophils # (test code 0.1 See_Comment [Aut omated message] The = Basophils #) system which generated this result tra nsmitted reference range : <=0.2. The reference r quynh was not used to int erpret this result as normal/abnormal . [place] 618542-10-14 08:42:00 Test Item Value Reference Range Interpretation Comments Magnesium Lvl (test code = Magnesium 2.2 1.8-2.4 Lvl) [place] 618542-10-14 08:42:00 Test Item Value Reference Range Interpretation Comments Glucose Lvl (test code = Glucose Lvl) 89 70-99 [place] [address]-10-14 08:42:00 Test Item Value Reference Range Interpretation Comments BUN (test code = BUN) 8 7-22 [place] 618542-10-14 08:42:00 Test Item Value Reference Range Interpretation Comments Creatinine Lvl (test code = Creatinine 0.59 0.50-1.40 Lvl) [place] 618542-10-14 08:42:00 Test Item Value Reference Range Interpretation Comments Sodium Lvl (test code = Sodium Lvl) 142 135-145 [facility] [id number] 08:42:00 Test Item Value Reference Range Interpretation Comments Potassium Lvl (test code = Potassium 3.6 3.5-5.1 Lvl) [facility] [id number] 08:42:00 Test Item Value Reference Range Interpretation Comments Chloride Lvl (test code = Chloride Lvl) 103 95-109 [facility] [id number] 08:42:00 Test Item Value Reference Range Interpretation Comments CO2 (test code = CO2) 30 24-32 [facility] [id number] 08:42:00 Test Item Value Reference Range Interpretation Comments Calcium Lvl (test code = Calcium Lvl) 9.8 8.5-10.5 [facility] [id number] 08:42:00 Test Item Value Reference Range Interpretation Comments Total Protein (test code = Total 7.0 6.4-8.4 Protein) [facility] [id number] 08:42:00 Test Item Value Reference Range Interpretation Comments Albumin Lvl (test code = Albumin Lvl) 2.8 3.5-5.0 [facility] [id number] 08:42:00 Test Item Value Reference Range Interpretation Comments ALT (test code = ALT) 20 See_Comment [Auto mated message] The system which ge nerated this result transmit fabiano reference range : <=65. The reference range was not used to interpr et this result as aleks l/abnormal. [facility] [id number] 08:42:00 Test Item Value Reference Range Interpretation Comments AST (test code = AST) 11 See_Comment [Auto mated message] The system which ge nerated this result transmit fabiano reference range : <=37. The reference range was not used to interpr et this result as aleks l/abnormal. [facility] [id number] 08:42:00 Test Item Value Reference Range Interpretation Comments Alk Phos (test code = Alk Phos) 108 39-136 [facility] [id number] 08:42:00 Test Item Value Reference Range Interpretation Comments Bili Total (test code = Bili Total) 0.4 0.2-1.3 [facility] [id number] 08:42:00 Test Item Value Reference Range Interpretation Comments AGAP (test code = AGAP) 12.6 10.0-20.0 [address]10-14 08:42:00 Test Item Value Reference Range Interpretation Comments B/C Ratio (test code = B/C Ratio) 14 1 6-25 [place] [address]-10-14 08:42:00 Test Item Value Reference Range Interpretation Comments Globulin (test code = Globulin) 4.2 2.7-4.2 [place] 618542-10-14 08:42:00 Test Item Value Reference Range Interpretation Comments A/G Ratio (test code = A/G Ratio) 0.7 1 0.7-1.6 [place] [address]-10-14 08:42:00 Test Item Value Reference Range Interpretation Comments eGFR (test code = eGFR) 108 [place] 618542-10-14 08:42:00 Test Item Value Reference Range Interpretation Comments Phosphorus (test code = Phosphorus) 5.4 2.5-4.5 [place] [address]-10-14 08:42:00 Test Item Value Reference Range Interpretation Comments WBC (test code = WBC) 12.5 3.7-10.4 [place] [address]-10-14 08:42:00 Test Item Value Reference Range Interpretation Comments RBC (test code = RBC) 3.94 4.20-5.40 [place] [address]-10-14 08:42:00 Test Item Value Reference Range Interpretation Comments Hgb (test code = Hgb) 10.6 12.0-16.0 [place] [address]-10-14 08:42:00 Test Item Value Reference Range Interpretation Comments Hct (test code = Hct) 31.6 36.0-48.0 [place] [address]-10-14 08:42:00 Test Item Value Reference Range Interpretation Comments MCV (test code = MCV) 80.2 80.0-98.0 [place] [address]-10-14 08:42:00 Test Item Value Reference Range Interpretation Comments MCH (test code = MCH) 26.9 pg 27.0-31.0 [place] [address]-10-14 08:42:00 Test Item Value Reference Range Interpretation Comments MCHC (test code = MCHC) 33.6 32.0-36.0 [facility] HospitalLxkvkckGCRJMQSGKD4070-97-98 08:42:00 Test Item Value Reference Range Interpretation Comments RDW (test code = RDW) 16.4 11.5-14.5 [facility] HospitalAatactpKWJXPALBQQ8321-98-85 08:42:00 Test Item Value Reference Range Interpretation Comments Platelet (test code = Platelet) 339 133-450 [facility] HospitalUkgpsqcLBTXPAUCFD9395-77-06 08:42:00 Test Item Value Reference Range Interpretation Comments MPV (test code = MPV) 8.0 7.4-10.4 [facility] HospitalUvpeqpaRCCAQVRXSE9740-33-25 08:42:00 Test Item Value Reference Range Interpretation Comments Segs (test code = Segs) 77.8 45.0-75.0 [facility] HospitalQlyikruKDOWYCDSKE3326-47-07 08:42:00 Test Item Value Reference Range Interpretation Comments Lymphocytes (test code = Lymphocytes) 13.5 20.0-40.0 [facility] [id number] 08:42:00 Test Item Value Reference Range Interpretation Comments Monocytes (test code = Monocytes) 6.5 2.0-12.0 [id number] 08:42:00 Test Item Value Reference Range Interpretation Comments Eosinophils (test code = 1.6 See_Comment [A utomated message] The Eosinophils) system which ge nerated this result tra nsmitted reference range : <=4.0. The reference r quynh was not used to int erpret this result as normal/abnormal . [facility] [id number] 08:42:00 Test Item Value Reference Range Interpretation Comments Basophils (test code = 0.6 See_Comment [Aut omated message] The Basophils) system which ge nerated this result tra nsmitted reference range : <=1.0. The reference r quynh was not used to int erpret this result as normal/abnormal . [place] [id number] 08:42:00 Test Item Value Reference Range Interpretation Comments Neutrophils # (test code = Neutrophils 9.8 1.5-8.1 #) [place] [id number] 08:42:00 Test Item Value Reference Range Interpretation Comments Lymphocytes # (test code = Lymphocytes 1.7 1.0-5.5 #) [facility] [id number] 08:42:00 Test Item Value Reference Range Interpretation Comments Monocytes # (test code 0.8 See_Comment [Aut omated message] The = Monocytes #) system which generated this result tra nsmitted reference range : <=0.8. The reference r quynh was not used to int erpret this result as normal/abnormal . [facility] H[id number] 08:42:00 Test Item Value Reference Range Interpretation Comments Eosinophils # (test code 0.2 See_Comment [A utomated message] The = Eosinophils #) system whic h generated this result tra nsmitted reference range : <=0.5. The reference r quynh was not used to int erpret this result as normal/abnormal . [facility] [id number] 08:42:00 Test Item Value Reference Range Interpretation Comments Basophils # (test code 0.1 See_Comment [Aut omated message] The = Basophils #) system which generated this result tra nsmitted reference range : <=0.2. The reference r quynh was not used to int erpret this result as normal/abnormal . [facility]ann[facility] - [id number] 23:55:00 Test Item Value Reference Range Interpretation Comments Source Strep (test code Urine *NA*(04/11/22 = Source Strep) 6:55 PM) [facility]BA[facility] - [id number] 23:55:00 Test Item Value Reference Range Interpretation Comments Strep pneumoniae Ag Negative (04/11/22 (test code = Strep 6:55 PM) pneumoniae Ag) [facility] [id number] 23:55:00 Test Item Value Reference Range Interpretation Comments UA Color (test code = Yellow *NA*(04/11/22 UA Color) 6:55 PM) [facility] [id number] 23:55:00 Test Item Value Reference Range Interpretation Comments UA Turbidity (test code = Clear (04/11/22 6:55 UA Turbidity) PM) [facility] [id number] 23:55:00 Test Item Value Reference Range Interpretation Comments UA Spec Grav (test code = UA Spec 1.015 1 Grav) [facility] [id number] 23:55:00 Test Item Value Reference Range Interpretation Comments UA pH (test code = UA pH) 6.0 1 5.0-8.0 [facility] [id number] 23:55:00 Test Item Value Reference Range Interpretation Comments UA Protein (test code Negative (04/11/22 6:55 = UA Protein) PM) [facility] [id number] 23:55:00 Test Item Value Reference Range Interpretation Comments UA Glucose (test code Negative (04/11/22 6:55 = UA Glucose) PM) [facility] [id number] 23:55:00 Test Item Value Reference Range Interpretation Comments UA Ketones (test code Negative *NA*(04/11/22 = UA Ketones) 6:55 PM) [facility] [id number] 23:55:00 Test Item Value Reference Range Interpretation Comments UA Bili (test code = Negative *NA*(04/11/22 UA Bili) 6:55 PM) [facility] AND [id number] 23:55:00 Test Item Value Reference Range Interpretation Comments UA Blood (test code = Negative (04/11/22 6:55 UA Blood) PM) [facility] AND [id number] 23:55:00 Test Item Value Reference Range Interpretation Comments UA Urobilinogen (test code = UA 0.2 0.1-1.0 Urobilinogen) [facility] AND [id number] 23:55:00 Test Item Value Reference Range Interpretation Comments UA Nitrite (test code Negative (04/11/22 6:55 = UA Nitrite) PM) [facility] AND [id number] 23:55:00 Test Item Value Reference Range Interpretation Comments UA Leuk Est (test Negative (04/11/22 6:55 code = UA Leuk Est) PM) [facility] [id number] 23:55:00 Test Item Value Reference Range Interpretation Comments UA Sq Epi (test code = UA Sq Occasional /LPF Epi) [facility] AND [id number] 23:55:00 Test Item Value Reference Range Interpretation Comments UA WBC (test code = no gt See_Comment [Automa fabiano message] The UA WBC) system which ge nerated this result transmit fabiano reference range : <=5. The reference range was not used to interpr et this result as aleks l/abnormal. [facility] [id number] 23:55:00 Test Item Value Reference Range Interpretation Comments UA RBC (test code = no gt See_Comment [Automa fabiano message] The UA RBC) system which ge nerated this result transmit fabiano reference range : <=2. The reference range was not used to interpr et this result as aleks l/abnormal. [facility]haannGISELA AND [id number] 23:55:00 Test Item Value Reference Range Interpretation Comments UA Bacteria (test code = UA Occasional /HPF Bacteria) [facility] [id number] 23:55:00 Test Item Value Reference Range Interpretation Comments UA Mucus (test code = UA Mucus) Few /LPF [facility] [id number] 23:55:00 Test Item Value Reference Range Interpretation Comments UA Color (test code = Yellow *NA*(04/11/22 UA Color) 6:55 PM) [facility] [id number] 23:55:00 Test Item Value Reference Range Interpretation Comments UA Turbidity (test code = Clear (04/11/22 6:55 UA Turbidity) PM) [facility] [id number] 23:55:00 Test Item Value Reference Range Interpretation Comments UA Spec Grav (test code = UA Spec 1.015 1 Grav) [facility] [id number] 23:55:00 Test Item Value Reference Range Interpretation Comments UA pH (test code = UA pH) 6.0 1 5.0-8.0 [facility] [id number] 23:55:00 Test Item Value Reference Range Interpretation Comments UA Protein (test code Negative (04/11/22 6:55 = UA Protein) PM) [facility] [id number] 23:55:00 Test Item Value Reference Range Interpretation Comments UA Glucose (test code Negative (04/11/22 6:55 = UA Glucose) PM) [facility] [id number] 23:55:00 Test Item Value Reference Range Interpretation Comments UA Ketones (test code Negative *NA*(04/11/22 = UA Ketones) 6:55 PM) [facility] [id number] 23:55:00 Test Item Value Reference Range Interpretation Comments UA Bili (test code = Negative *NA*(04/11/22 UA Bili) 6:55 PM) [facility] [id number] 23:55:00 Test Item Value Reference Range Interpretation Comments UA Blood (test code = Negative (04/11/22 6:55 UA Blood) PM) [facility] [id number] 23:55:00 Test Item Value Reference Range Interpretation Comments UA Urobilinogen (test code = UA 0.2 0.1-1.0 Urobilinogen) [facility] [id number] 23:55:00 Test Item Value Reference Range Interpretation Comments UA Nitrite (test code Negative (04/11/22 6:55 = UA Nitrite) PM) [facility] [id number] 23:55:00 Test Item Value Reference Range Interpretation Comments UA Leuk Est (test Negative (04/11/22 6:55 code = UA Leuk Est) PM) [facility] [id number] 23:55:00 Test Item Value Reference Range Interpretation Comments UA Sq Epi (test code = UA Sq Occasional /LPF Epi) [facility] [id number] 23:55:00 Test Item Value Reference Range Interpretation Comments UA WBC (test code = no gt See_Comment [Automa fabiano message] The UA WBC) system which ge nerated this result transmit fabiano reference range : <=5. The reference range was not used to interpr et this result as aleks l/abnormal. [facility] [id number] 23:55:00 Test Item Value Reference Range Interpretation Comments UA RBC (test code = no gt See_Comment [Automa fabiano message] The UA RBC) system which ge nerated this result transmit fabiano reference range : <=2. The reference range was not used to interpr et this result as aleks l/abnormal. [facility] [id number] 23:55:00 Test Item Value Reference Range Interpretation Comments UA Bacteria (test code = UA Occasional /HPF Bacteria) [facility] [id number] 23:55:00 Test Item Value Reference Range Interpretation Comments UA Mucus (test code = UA Mucus) Few /LPF [facility]annBACT[facility] - [id number] 23:55:00 Test Item Value Reference Range Interpretation Comments Source Strep (test code Urine *NA*(04/11/22 = Source Strep) 6:55 PM) [facility] - [id number] 23:55:00 Test Item Value Reference Range Interpretation Comments Strep pneumoniae Ag Negative (04/11/22 (test code = Strep 6:55 PM) pneumoniae Ag) [facility] [id number] 23:55:00 Test Item Value Reference Range Interpretation Comments UA Color (test code = Yellow *NA*(04/11/22 UA Color) 6:55 PM) [facility] [id number] 23:55:00 Test Item Value Reference Range Interpretation Comments UA Turbidity (test code = Clear (04/11/22 6:55 UA Turbidity) PM) [facility] [id number] 23:55:00 Test Item Value Reference Range Interpretation Comments UA Spec Grav (test code = UA Spec 1.015 1 Grav) [facility] [id number] 23:55:00 Test Item Value Reference Range Interpretation Comments UA pH (test code = UA pH) 6.0 1 5.0-8.0 [facility] [id number] 23:55:00 Test Item Value Reference Range Interpretation Comments UA Protein (test code Negative (04/11/22 6:55 = UA Protein) PM) [facility] [id number] 23:55:00 Test Item Value Reference Range Interpretation Comments UA Glucose (test code Negative (04/11/22 6:55 = UA Glucose) PM) [facility] [id number] 23:55:00 Test Item Value Reference Range Interpretation Comments UA Ketones (test code Negative *NA*(04/11/22 = UA Ketones) 6:55 PM) [facility] [id number] 23:55:00 Test Item Value Reference Range Interpretation Comments UA Bili (test code = Negative *NA*(04/11/22 UA Bili) 6:55 PM) [facility] [id number] 23:55:00 Test Item Value Reference Range Interpretation Comments UA Blood (test code = Negative (04/11/22 6:55 UA Blood) PM) [facility] [id number] 23:55:00 Test Item Value Reference Range Interpretation Comments UA Urobilinogen (test code = UA 0.2 0.1-1.0 Urobilinogen) [facility] [id number] 23:55:00 Test Item Value Reference Range Interpretation Comments UA Nitrite (test code Negative (04/11/22 6:55 = UA Nitrite) PM) [facility] [id number] 23:55:00 Test Item Value Reference Range Interpretation Comments UA Leuk Est (test Negative (04/11/22 6:55 code = UA Leuk Est) PM) [facility] [id number] 23:55:00 Test Item Value Reference Range Interpretation Comments UA Sq Epi (test code = UA Sq Occasional /LPF Epi) [facility] [id number] 23:55:00 Test Item Value Reference Range Interpretation Comments UA WBC (test code = no gt See_Comment [Automa fabiano message] The UA WBC) system which ge nerated this result transmit fabiano reference range : <=5. The reference range was not used to interpr et this result as aleks l/abnormal. [facility] [id number] 23:55:00 Test Item Value Reference Range Interpretation Comments UA RBC (test code = no gt See_Comment [Automa fabiano message] The UA RBC) system which ge nerated this result transmit fabiano reference range : <=2. The reference range was not used to interpr et this result as aleks l/abnormal. [facility] [id number] 23:55:00 Test Item Value Reference Range Interpretation Comments UA Bacteria (test code = UA Occasional /HPF Bacteria) [facility] [id number] 23:55:00 Test Item Value Reference Range Interpretation Comments UA Mucus (test code = UA Mucus) Few /LPF [facility] [id number] 23:55:00 Test Item Value Reference Range Interpretation Comments UA Color (test code = Yellow *NA*(04/11/22 UA Color) 6:55 PM) [facility] [id number] 23:55:00 Test Item Value Reference Range Interpretation Comments UA Turbidity (test code = Clear (04/11/22 6:55 UA Turbidity) PM) [facility] [id number] 23:55:00 Test Item Value Reference Range Interpretation Comments UA Spec Grav (test code = UA Spec 1.015 1 Grav) [facility] [id number] 23:55:00 Test Item Value Reference Range Interpretation Comments UA pH (test code = UA pH) 6.0 1 5.0-8.0 [facility] [id number] 23:55:00 Test Item Value Reference Range Interpretation Comments UA Protein (test code Negative (04/11/22 6:55 = UA Protein) PM) [facility] [id number] 23:55:00 Test Item Value Reference Range Interpretation Comments UA Glucose (test code Negative (04/11/22 6:55 = UA Glucose) PM) [facility] [id number] 23:55:00 Test Item Value Reference Range Interpretation Comments UA Ketones (test code Negative *NA*(04/11/22 = UA Ketones) 6:55 PM) [facility] [id number] 23:55:00 Test Item Value Reference Range Interpretation Comments UA Bili (test code = Negative *NA*(04/11/22 UA Bili) 6:55 PM) [facility] [id number] 23:55:00 Test Item Value Reference Range Interpretation Comments UA Blood (test code = Negative (04/11/22 6:55 UA Blood) PM) [facility] [id number] 23:55:00 Test Item Value Reference Range Interpretation Comments UA Urobilinogen (test code = UA 0.2 0.1-1.0 Urobilinogen) [facility] [id number] 23:55:00 Test Item Value Reference Range Interpretation Comments UA Nitrite (test code Negative (04/11/22 6:55 = UA Nitrite) PM) [facility] [id number] 23:55:00 Test Item Value Reference Range Interpretation Comments UA Leuk Est (test Negative (04/11/22 6:55 code = UA Leuk Est) PM) [facility] [id number] 23:55:00 Test Item Value Reference Range Interpretation Comments UA Sq Epi (test code = UA Sq Occasional /LPF Epi) [facility] [id number] 23:55:00 Test Item Value Reference Range Interpretation Comments UA WBC (test code = no gt See_Comment [Automa fabiano message] The UA WBC) system which ge nerated this result transmit fabiano reference range : <=5. The reference range was not used to interpr et this result as aleks l/abnormal. [facility] [id number] 23:55:00 Test Item Value Reference Range Interpretation Comments UA RBC (test code = no gt See_Comment [Automa fabiano message] The UA RBC) system which ge nerated this result transmit fabiano reference range : <=2. The reference range was not used to interpr et this result as aleks l/abnormal. [facility] [id number] 23:55:00 Test Item Value Reference Range Interpretation Comments UA Bacteria (test code = UA Occasional /HPF Bacteria) [facility] [id number] 23:55:00 Test Item Value Reference Range Interpretation Comments UA Mucus (test code = UA Mucus) Few /LPF [facility]annBA[facility] - [id number] 23:55:00 Test Item Value Reference Range Interpretation Comments Source Strep (test code Urine *NA*(04/11/22 = Source Strep) 6:55 PM) [facility]BA[facility] - [id number] 23:55:00 Test Item Value Reference Range Interpretation Comments Strep pneumoniae Ag Negative (04/11/22 (test code = Strep 6:55 PM) pneumoniae Ag) [facility] [id number] 23:55:00 Test Item Value Reference Range Interpretation Comments UA Color (test code = Yellow *NA*(04/11/22 UA Color) 6:55 PM) [facility] [id number] 23:55:00 Test Item Value Reference Range Interpretation Comments UA Turbidity (test code = Clear (04/11/22 6:55 UA Turbidity) PM) [facility] [id number] 23:55:00 Test Item Value Reference Range Interpretation Comments UA Spec Grav (test code = UA Spec 1.015 1 Grav) [facility] [id number] 23:55:00 Test Item Value Reference Range Interpretation Comments UA pH (test code = UA pH) 6.0 1 5.0-8.0 [facility] [id number] 23:55:00 Test Item Value Reference Range Interpretation Comments UA Protein (test code Negative (04/11/22 6:55 = UA Protein) PM) [facility] [id number] 23:55:00 Test Item Value Reference Range Interpretation Comments UA Glucose (test code Negative (04/11/22 6:55 = UA Glucose) PM) [facility] [id number] 23:55:00 Test Item Value Reference Range Interpretation Comments UA Ketones (test code Negative *NA*(04/11/22 = UA Ketones) 6:55 PM) [facility] [id number] 23:55:00 Test Item Value Reference Range Interpretation Comments UA Bili (test code = Negative *NA*(04/11/22 UA Bili) 6:55 PM) [facility] AND [id number] 23:55:00 Test Item Value Reference Range Interpretation Comments UA Blood (test code = Negative (04/11/22 6:55 UA Blood) PM) [facility] [id number] 23:55:00 Test Item Value Reference Range Interpretation Comments UA Urobilinogen (test code = UA 0.2 0.1-1.0 Urobilinogen) [facility] [id number] 23:55:00 Test Item Value Reference Range Interpretation Comments UA Nitrite (test code Negative (04/11/22 6:55 = UA Nitrite) PM) [facility] [id number] 23:55:00 Test Item Value Reference Range Interpretation Comments UA Leuk Est (test Negative (04/11/22 6:55 code = UA Leuk Est) PM) [facility] [id number] 23:55:00 Test Item Value Reference Range Interpretation Comments UA Sq Epi (test code = UA Sq Occasional /LPF Epi) [facility] [id number] 23:55:00 Test Item Value Reference Range Interpretation Comments UA WBC (test code = no gt See_Comment [Automa fabiano message] The UA WBC) system which ge nerated this result transmit fabiano reference range : <=5. The reference range was not used to interpr et this result as aleks l/abnormal. [facility] Felipe AND [id number] 23:55:00 Test Item Value Reference Range Interpretation Comments UA RBC (test code = no gt See_Comment [Automa fabiano message] The UA RBC) system which ge nerated this result transmit fabiano reference range : <=2. The reference range was not used to interpr et this result as aleks l/abnormal. [facility] AND [id number] 23:55:00 Test Item Value Reference Range Interpretation Comments UA Bacteria (test code = UA Occasional /HPF Bacteria) [facility] [id number] 23:55:00 Test Item Value Reference Range Interpretation Comments UA Mucus (test code = UA Mucus) Few /LPF [facility] [id number] 23:55:00 Test Item Value Reference Range Interpretation Comments UA Color (test code = Yellow *NA*(04/11/22 UA Color) 6:55 PM) [facility] AND [id number] 23:55:00 Test Item Value Reference Range Interpretation Comments UA Turbidity (test code = Clear (04/11/22 6:55 UA Turbidity) PM) [facility] [id number] 23:55:00 Test Item Value Reference Range Interpretation Comments UA Spec Grav (test code = UA Spec 1.015 1 Grav) [facility] AND [id number] 23:55:00 Test Item Value Reference Range Interpretation Comments UA pH (test code = UA pH) 6.0 1 5.0-8.0 [facility] [id number] 23:55:00 Test Item Value Reference Range Interpretation Comments UA Protein (test code Negative (04/11/22 6:55 = UA Protein) PM) [facility] AND [id number] 23:55:00 Test Item Value Reference Range Interpretation Comments UA Glucose (test code Negative (04/11/22 6:55 = UA Glucose) PM) [facility] [id number] 23:55:00 Test Item Value Reference Range Interpretation Comments UA Ketones (test code Negative *NA*(04/11/22 = UA Ketones) 6:55 PM) [facility] [id number] 23:55:00 Test Item Value Reference Range Interpretation Comments UA Bili (test code = Negative *NA*(04/11/22 UA Bili) 6:55 PM) [facility] [id number] 23:55:00 Test Item Value Reference Range Interpretation Comments UA Blood (test code = Negative (04/11/22 6:55 UA Blood) PM) [facility] [id number] 23:55:00 Test Item Value Reference Range Interpretation Comments UA Urobilinogen (test code = UA 0.2 0.1-1.0 Urobilinogen) [facility] [id number] 23:55:00 Test Item Value Reference Range Interpretation Comments UA Nitrite (test code Negative (04/11/22 6:55 = UA Nitrite) PM) [facility] [id number] 23:55:00 Test Item Value Reference Range Interpretation Comments UA Leuk Est (test Negative (04/11/22 6:55 code = UA Leuk Est) PM) [facility] [id number] 23:55:00 Test Item Value Reference Range Interpretation Comments UA Sq Epi (test code = UA Sq Occasional /LPF Epi) [facility] [id number] 23:55:00 Test Item Value Reference Range Interpretation Comments UA WBC (test code = no gt See_Comment [Automa fabiano message] The UA WBC) system which ge nerated this result transmit fabiano reference range : <=5. The reference range was not used to interpr et this result as aleks l/abnormal. [facility] [id number] 23:55:00 Test Item Value Reference Range Interpretation Comments UA RBC (test code = no gt See_Comment [Automa fabiano message] The UA RBC) system which ge nerated this result transmit fabiano reference range : <=2. The reference range was not used to interpr et this result as aleks l/abnormal. [facility] [id number] 23:55:00 Test Item Value Reference Range Interpretation Comments UA Bacteria (test code = UA Occasional /HPF Bacteria) [facility] [id number] 23:55:00 Test Item Value Reference Range Interpretation Comments UA Mucus (test code = UA Mucus) Few /LPF [facility]annBACT[facility] - [id number] 23:55:00 Test Item Value Reference Range Interpretation Comments Source Strep (test code Urine *NA*(04/11/22 = Source Strep) 6:55 PM) [facility]annBACT[facility] - [id number] 23:55:00 Test Item Value Reference Range Interpretation Comments Strep pneumoniae Ag Negative (04/11/22 (test code = Strep 6:55 PM) pneumoniae Ag) [facility] [id number] 23:55:00 Test Item Value Reference Range Interpretation Comments UA Color (test code = Yellow *NA*(04/11/22 UA Color) 6:55 PM) [facility] [id number] 23:55:00 Test Item Value Reference Range Interpretation Comments UA Turbidity (test code = Clear (04/11/22 6:55 UA Turbidity) PM) [facility] [id number] 23:55:00 Test Item Value Reference Range Interpretation Comments UA Spec Grav (test code = UA Spec 1.015 1 Grav) [facility] [id number] 23:55:00 Test Item Value Reference Range Interpretation Comments UA pH (test code = UA pH) 6.0 1 5.0-8.0 [facility] [id number] 23:55:00 Test Item Value Reference Range Interpretation Comments UA Protein (test code Negative (04/11/22 6:55 = UA Protein) PM) [facility] [id number] 23:55:00 Test Item Value Reference Range Interpretation Comments UA Glucose (test code Negative (04/11/22 6:55 = UA Glucose) PM) [facility] [id number] 23:55:00 Test Item Value Reference Range Interpretation Comments UA Ketones (test code Negative *NA*(04/11/22 = UA Ketones) 6:55 PM) [facility] [id number] 23:55:00 Test Item Value Reference Range Interpretation Comments UA Bili (test code = Negative *NA*(04/11/22 UA Bili) 6:55 PM) [facility] [id number] 23:55:00 Test Item Value Reference Range Interpretation Comments UA Blood (test code = Negative (04/11/22 6:55 UA Blood) PM) [facility] [id number] 23:55:00 Test Item Value Reference Range Interpretation Comments UA Urobilinogen (test code = UA 0.2 0.1-1.0 Urobilinogen) [facility] [id number] 23:55:00 Test Item Value Reference Range Interpretation Comments UA Nitrite (test code Negative (04/11/22 6:55 = UA Nitrite) PM) [facility] [id number] 23:55:00 Test Item Value Reference Range Interpretation Comments UA Leuk Est (test Negative (04/11/22 6:55 code = UA Leuk Est) PM) [facility] [id number] 23:55:00 Test Item Value Reference Range Interpretation Comments UA Sq Epi (test code = UA Sq Occasional /LPF Epi) [facility] [id number] 23:55:00 Test Item Value Reference Range Interpretation Comments UA WBC (test code = no gt See_Comment [Automa fabiano message] The UA WBC) system which ge nerated this result transmit fabiano reference range : <=5. The reference range was not used to interpr et this result as aleks l/abnormal. [facility] [id number] 23:55:00 Test Item Value Reference Range Interpretation Comments UA RBC (test code = no gt See_Comment [Automa fabiano message] The UA RBC) system which ge nerated this result transmit fabiano reference range : <=2. The reference range was not used to interpr et this result as aleks l/abnormal. [facility] [id number] 23:55:00 Test Item Value Reference Range Interpretation Comments UA Bacteria (test code = UA Occasional /HPF Bacteria) [facility] [id number] 23:55:00 Test Item Value Reference Range Interpretation Comments UA Mucus (test code = UA Mucus) Few /LPF [facility] [id number] 23:55:00 Test Item Value Reference Range Interpretation Comments UA Color (test code = Yellow *NA*(04/11/22 UA Color) 6:55 PM) [facility] [id number] 23:55:00 Test Item Value Reference Range Interpretation Comments UA Turbidity (test code = Clear (04/11/22 6:55 UA Turbidity) PM) [facility] [id number] 23:55:00 Test Item Value Reference Range Interpretation Comments UA Spec Grav (test code = UA Spec 1.015 1 Grav) [facility] [id number] 23:55:00 Test Item Value Reference Range Interpretation Comments UA pH (test code = UA pH) 6.0 1 5.0-8.0 [facility] [id number] 23:55:00 Test Item Value Reference Range Interpretation Comments UA Protein (test code Negative (04/11/22 6:55 = UA Protein) PM) [facility] [id number] 23:55:00 Test Item Value Reference Range Interpretation Comments UA Glucose (test code Negative (04/11/22 6:55 = UA Glucose) PM) [facility] [id number] 23:55:00 Test Item Value Reference Range Interpretation Comments UA Ketones (test code Negative *NA*(04/11/22 = UA Ketones) 6:55 PM) [facility] [id number] 23:55:00 Test Item Value Reference Range Interpretation Comments UA Bili (test code = Negative *NA*(04/11/22 UA Bili) 6:55 PM) [facility] [id number] 23:55:00 Test Item Value Reference Range Interpretation Comments UA Blood (test code = Negative (04/11/22 6:55 UA Blood) PM) [facility] [id number] 23:55:00 Test Item Value Reference Range Interpretation Comments UA Urobilinogen (test code = UA 0.2 0.1-1.0 Urobilinogen) [facility] [id number] 23:55:00 Test Item Value Reference Range Interpretation Comments UA Nitrite (test code Negative (04/11/22 6:55 = UA Nitrite) PM) [facility] [id number] 23:55:00 Test Item Value Reference Range Interpretation Comments UA Leuk Est (test Negative (04/11/22 6:55 code = UA Leuk Est) PM) [facility] [id number] 23:55:00 Test Item Value Reference Range Interpretation Comments UA Sq Epi (test code = UA Sq Occasional /LPF Epi) [facility] [id number] 23:55:00 Test Item Value Reference Range Interpretation Comments UA WBC (test code = no gt See_Comment [Automa fabiano message] The UA WBC) system which ge nerated this result transmit fabiano reference range : <=5. The reference range was not used to interpr et this result as aleks l/abnormal. [facility] [id number] 23:55:00 Test Item Value Reference Range Interpretation Comments UA RBC (test code = no gt See_Comment [Automa fabiano message] The UA RBC) system which ge nerated this result transmit fabiano reference range : <=2. The reference range was not used to interpr et this result as aleks l/abnormal. [facility] [id number] 23:55:00 Test Item Value Reference Range Interpretation Comments UA Bacteria (test code = UA Occasional /HPF Bacteria) [facility] [id number] 23:55:00 Test Item Value Reference Range Interpretation Comments UA Mucus (test code = UA Mucus) Few /LPF [facility] [id number] 23:55:00 Test Item Value Reference Range Interpretation Comments Source Strep (test code Urine *NA*(04/11/22 = Source Strep) 6:55 PM) [facility] [id number] 23:55:00 Test Item Value Reference Range Interpretation Comments Strep pneumoniae Ag Negative (04/11/22 (test code = Strep 6:55 PM) pneumoniae Ag) [facility] [id number] 23:55:00 Test Item Value Reference Range Interpretation Comments UA Color (test code = Yellow *NA*(04/11/22 UA Color) 6:55 PM) [facility] [id number] 23:55:00 Test Item Value Reference Range Interpretation Comments UA Turbidity (test code = Clear (04/11/22 6:55 UA Turbidity) PM) [facility] [id number] 23:55:00 Test Item Value Reference Range Interpretation Comments UA Spec Grav (test code = UA Spec 1.015 1 Grav) [facility] [id number] 23:55:00 Test Item Value Reference Range Interpretation Comments UA pH (test code = UA pH) 6.0 1 5.0-8.0 [facility] [id number] 23:55:00 Test Item Value Reference Range Interpretation Comments UA Protein (test code Negative (04/11/22 6:55 = UA Protein) PM) [facility] [id number] 23:55:00 Test Item Value Reference Range Interpretation Comments UA Glucose (test code Negative (04/11/22 6:55 = UA Glucose) PM) [facility] [id number] 23:55:00 Test Item Value Reference Range Interpretation Comments UA Ketones (test code Negative *NA*(04/11/22 = UA Ketones) 6:55 PM) [facility] [id number] 23:55:00 Test Item Value Reference Range Interpretation Comments UA Bili (test code = Negative *NA*(04/11/22 UA Bili) 6:55 PM) [facility] [id number] 23:55:00 Test Item Value Reference Range Interpretation Comments UA Blood (test code = Negative (04/11/22 6:55 UA Blood) PM) [facility] [id number] 23:55:00 Test Item Value Reference Range Interpretation Comments UA Urobilinogen (test code = UA 0.2 0.1-1.0 Urobilinogen) [facility] [id number] 23:55:00 Test Item Value Reference Range Interpretation Comments UA Nitrite (test code Negative (04/11/22 6:55 = UA Nitrite) PM) [facility] [id number] 23:55:00 Test Item Value Reference Range Interpretation Comments UA Leuk Est (test Negative (04/11/22 6:55 code = UA Leuk Est) PM) [facility] [id number] 23:55:00 Test Item Value Reference Range Interpretation Comments UA Sq Epi (test code = UA Sq Occasional /LPF Epi) [facility] [id number] 23:55:00 Test Item Value Reference Range Interpretation Comments UA WBC (test code = no gt See_Comment [Automa fabiano message] The UA WBC) system which ge nerated this result transmit fabiano reference range : <=5. The reference range was not used to interpr et this result as aleks l/abnormal. [facility] [id number] 23:55:00 Test Item Value Reference Range Interpretation Comments UA RBC (test code = no gt See_Comment [Automa fabiano message] The UA RBC) system which ge nerated this result transmit fabiano reference range : <=2. The reference range was not used to interpr et this result as aleks l/abnormal. [facility] [id number] 23:55:00 Test Item Value Reference Range Interpretation Comments UA Bacteria (test code = UA Occasional /HPF Bacteria) [facility] AND [id number] 23:55:00 Test Item Value Reference Range Interpretation Comments UA Mucus (test code = UA Mucus) Few /LPF [facility] AND [id number] 23:55:00 Test Item Value Reference Range Interpretation Comments UA Color (test code = Yellow *NA*(04/11/22 UA Color) 6:55 PM) [facility] AND [id number] 23:55:00 Test Item Value Reference Range Interpretation Comments UA Turbidity (test code = Clear (04/11/22 6:55 UA Turbidity) PM) [facility] AND [id number] 23:55:00 Test Item Value Reference Range Interpretation Comments UA Spec Grav (test code = UA Spec 1.015 1 Grav) [facility] AND [id number] 23:55:00 Test Item Value Reference Range Interpretation Comments UA pH (test code = UA pH) 6.0 1 5.0-8.0 [facility] AND [id number] 23:55:00 Test Item Value Reference Range Interpretation Comments UA Protein (test code Negative (04/11/22 6:55 = UA Protein) PM) [facility] AND [id number] 23:55:00 Test Item Value Reference Range Interpretation Comments UA Glucose (test code Negative (04/11/22 6:55 = UA Glucose) PM) [facility] [id number] 23:55:00 Test Item Value Reference Range Interpretation Comments UA Ketones (test code Negative *NA*(04/11/22 = UA Ketones) 6:55 PM) [facility] [id number] 23:55:00 Test Item Value Reference Range Interpretation Comments UA Bili (test code = Negative *NA*(04/11/22 UA Bili) 6:55 PM) [facility] [id number] 23:55:00 Test Item Value Reference Range Interpretation Comments UA Blood (test code = Negative (04/11/22 6:55 UA Blood) PM) [facility] [id number] 23:55:00 Test Item Value Reference Range Interpretation Comments UA Urobilinogen (test code = UA 0.2 0.1-1.0 Urobilinogen) [facility] [id number] 23:55:00 Test Item Value Reference Range Interpretation Comments UA Nitrite (test code Negative (04/11/22 6:55 = UA Nitrite) PM) [facility] [id number] 23:55:00 Test Item Value Reference Range Interpretation Comments UA Leuk Est (test Negative (04/11/22 6:55 code = UA Leuk Est) PM) [facility] [id number] 23:55:00 Test Item Value Reference Range Interpretation Comments UA Sq Epi (test code = UA Sq Occasional /LPF Epi) [facility] [id number] 23:55:00 Test Item Value Reference Range Interpretation Comments UA WBC (test code = no gt See_Comment [Automa fabiano message] The UA WBC) system which ge nerated this result transmit fabiano reference range : <=5. The reference range was not used to interpr et this result as aleks l/abnormal. [facility] [id number] 23:55:00 Test Item Value Reference Range Interpretation Comments UA RBC (test code = no gt See_Comment [Automa fabiano message] The UA RBC) system which ge nerated this result transmit fabiano reference range : <=2. The reference range was not used to interpr et this result as aleks l/abnormal. [facility] [id number] 23:55:00 Test Item Value Reference Range Interpretation Comments UA Bacteria (test code = UA Occasional /HPF Bacteria) [facility] [id number] 23:55:00 Test Item Value Reference Range Interpretation Comments UA Mucus (test code = UA Mucus) Few /LPF [facility] [id number] 23:20:33 Test Item Value Reference Range Interpretation Comments RADRPT (test code EXAM: Chest CTADATE: = RADRPT) 04/11/2022 12:32.INDICATION: - evaluation for mediastinal mass.COMPARISON: Outside noncontrast chest CT 04/10/2022 and 07/16/2020TECHNIQUE: Volumetric CT angiography of the chest after the administration of intravenous contrast. Sagittal and coronal and MIP reconstructions are provided.AEC, mA/kV adjustment by patient size, and/or iterative reconstruction technique were used, per departmental dose-optimization program.Contrast phases: Pulmonary arterial.IV contrast: 80 mL Omnipaque 350.DLP: 176 mGy-cm.FINDINGS:Lines and Tubes: None.Visible Lower Neck: Unremarkable.Heart: The heart is within normal limits size. There is no pericardial effusion.Mediastinum: In the anterior superior mediastinum, there is a mass with posterior extension to the middle mediastinum. This measures approximately 7.9 x 7.0 x 7.8 cm in transverse, AP, and craniocaudal dimensions. There is encasement of the majority of the proximal aortic arch to ascending thoracic aorta as well as complete encasement of the right brachiocephalic artery. There is partial encasement of the superior anterior aspect of the right main pulmonary artery. These vessels are patent with good contrast enhancement.The SVC is not opacified and could not be well assessed; there may be complete encasement with obstruction.There is also partial encasement of the anterior aspect of the lower trachea above the marycarmen, resulting in moderate narrowing, as well as the proximal right main bronchus, resulting in marked focal stenosis.This mass is well inferior to the thyroid gland.This mass was not present on outside CT in June 2020.Vasculature: There is adequate opacification of the pulmonary arteries. No filling defects are identified to suggest the presence of pulmonary emboli. No signs of right heart strain.The main pulmonary artery has normal caliber. The thoracic aorta is within normal limits size. There is no significant aortic atherosclerotic calcification.Lymph Nodes: Mediastinal mass as above. No evidence of lymphadenopathy in the remaining chest by size criteria.Lungs/Pleura: Moderate narrowing of the lower intrathoracic trachea above the marycarmen and marked focal narrowing of the proximal right main bronchus, as above. Trace right greater than left pleural effusions with atelectatic changes in the dependent aspect. No pneumothorax is identified. No lung mass or apparent nodule is identified.Upper Abdomen: Contrast pooling about the falciform ligament of the left hepatic lobe with mild recanalized umbilical vein as well as prominent collateral vessels highly suggests occlusion of the SVC.Bones: No acute bony abnormality.Soft Tissues: Unremarkable.IMPRESSION:1. Aggressive appearing mediastinal mass as described above. Differential considerations may include lymphoma, thymic neoplasm, or germ cell tumors.2. Evaluation of the SVC is limited. However, contrast pooling about the falciform ligament and collateral vessels suggest SVC occlusion. [facility] [id number] 23:20:33 Test Item Value Reference Range Interpretation Comments RADRPT (test code EXAM: Chest CTADATE: = RADRPT) 04/11/2022 12:32.INDICATION: - evaluation for mediastinal mass.COMPARISON: Outside noncontrast chest CT 04/10/2022 and 07/16/2020TECHNIQUE: Volumetric CT angiography of the chest after the administration of intravenous contrast. Sagittal and coronal and MIP reconstructions are provided.AEC, mA/kV adjustment by patient size, and/or iterative reconstruction technique were used, per departmental dose-optimization program.Contrast phases: Pulmonary arterial.IV contrast: 80 mL Omnipaque 350.DLP: 176 mGy-cm.FINDINGS:Lines and Tubes: None.Visible Lower Neck: Unremarkable.Heart: The heart is within normal limits size. There is no pericardial effusion.Mediastinum: In the anterior superior mediastinum, there is a mass with posterior extension to the middle mediastinum. This measures approximately 7.9 x 7.0 x 7.8 cm in transverse, AP, and craniocaudal dimensions. There is encasement of the majority of the proximal aortic arch to ascending thoracic aorta as well as complete encasement of the right brachiocephalic artery. There is partial encasement of the superior anterior aspect of the right main pulmonary artery. These vessels are patent with good contrast enhancement.The SVC is not opacified and could not be well assessed; there may be complete encasement with obstruction.There is also partial encasement of the anterior aspect of the lower trachea above the marycarmen, resulting in moderate narrowing, as well as the proximal right main bronchus, resulting in marked focal stenosis.This mass is well inferior to the thyroid gland.This mass was not present on outside CT in June 2020.Vasculature: There is adequate opacification of the pulmonary arteries. No filling defects are identified to suggest the presence of pulmonary emboli. No signs of right heart strain.The main pulmonary artery has normal caliber. The thoracic aorta is within normal limits size. There is no significant aortic atherosclerotic calcification.Lymph Nodes: Mediastinal mass as above. No evidence of lymphadenopathy in the remaining chest by size criteria.Lungs/Pleura: Moderate narrowing of the lower intrathoracic trachea above the marycarmen and marked focal narrowing of the proximal right main bronchus, as above. Trace right greater than left pleural effusions with atelectatic changes in the dependent aspect. No pneumothorax is identified. No lung mass or apparent nodule is identified.Upper Abdomen: Contrast pooling about the falciform ligament of the left hepatic lobe with mild recanalized umbilical vein as well as prominent collateral vessels highly suggests occlusion of the SVC.Bones: No acute bony abnormality.Soft Tissues: Unremarkable.IMPRESSION:1. Aggressive appearing mediastinal mass as described above. Differential considerations may include lymphoma, thymic neoplasm, or germ cell tumors.2. Evaluation of the SVC is limited. However, contrast pooling about the falciform ligament and collateral vessels suggest SVC occlusion. [facility] [id number] 23:20:33 Test Item Value Reference Range Interpretation Comments RADRPT (test code EXAM: Chest CTADATE: = RADRPT) 04/11/2022 12:32.INDICATION: - evaluation for mediastinal mass.COMPARISON: Outside noncontrast chest CT 04/10/2022 and 07/16/2020TECHNIQUE: Volumetric CT angiography of the chest after the administration of intravenous contrast. Sagittal and coronal and MIP reconstructions are provided.AEC, mA/kV adjustment by patient size, and/or iterative reconstruction technique were used, per departmental dose-optimization program.Contrast phases: Pulmonary arterial.IV contrast: 80 mL Omnipaque 350.DLP: 176 mGy-cm.FINDINGS:Lines and Tubes: None.Visible Lower Neck: Unremarkable.Heart: The heart is within normal limits size. There is no pericardial effusion.Mediastinum: In the anterior superior mediastinum, there is a mass with posterior extension to the middle mediastinum. This measures approximately 7.9 x 7.0 x 7.8 cm in transverse, AP, and craniocaudal dimensions. There is encasement of the majority of the proximal aortic arch to ascending thoracic aorta as well as complete encasement of the right brachiocephalic artery. There is partial encasement of the superior anterior aspect of the right main pulmonary artery. These vessels are patent with good contrast enhancement.The SVC is not opacified and could not be well assessed; there may be complete encasement with obstruction.There is also partial encasement of the anterior aspect of the lower trachea above the marycarmen, resulting in moderate narrowing, as well as the proximal right main bronchus, resulting in marked focal stenosis.This mass is well inferior to the thyroid gland.This mass was not present on outside CT in June 2020.Vasculature: There is adequate opacification of the pulmonary arteries. No filling defects are identified to suggest the presence of pulmonary emboli. No signs of right heart strain.The main pulmonary artery has normal caliber. The thoracic aorta is within normal limits size. There is no significant aortic atherosclerotic calcification.Lymph Nodes: Mediastinal mass as above. No evidence of lymphadenopathy in the remaining chest by size criteria.Lungs/Pleura: Moderate narrowing of the lower intrathoracic trachea above the marycarmen and marked focal narrowing of the proximal right main bronchus, as above. Trace right greater than left pleural effusions with atelectatic changes in the dependent aspect. No pneumothorax is identified. No lung mass or apparent nodule is identified.Upper Abdomen: Contrast pooling about the falciform ligament of the left hepatic lobe with mild recanalized umbilical vein as well as prominent collateral vessels highly suggests occlusion of the SVC.Bones: No acute bony abnormality.Soft Tissues: Unremarkable.IMPRESSION:1. Aggressive appearing mediastinal mass as described above. Differential considerations may include lymphoma, thymic neoplasm, or germ cell tumors.2. Evaluation of the SVC is limited. However, contrast pooling about the falciform ligament and collateral vessels suggest SVC occlusion. [facility] [id number] 23:20:33 Test Item Value Reference Range Interpretation Comments RADRPT (test code EXAM: Chest CTADATE: = RADRPT) 04/11/2022 12:32.INDICATION: - evaluation for mediastinal mass.COMPARISON: Outside noncontrast chest CT 04/10/2022 and 07/16/2020TECHNIQUE: Volumetric CT angiography of the chest after the administration of intravenous contrast. Sagittal and coronal and MIP reconstructions are provided.AEC, mA/kV adjustment by patient size, and/or iterative reconstruction technique were used, per departmental dose-optimization program.Contrast phases: Pulmonary arterial.IV contrast: 80 mL Omnipaque 350.DLP: 176 mGy-cm.FINDINGS:Lines and Tubes: None.Visible Lower Neck: Unremarkable.Heart: The heart is within normal limits size. There is no pericardial effusion.Mediastinum: In the anterior superior mediastinum, there is a mass with posterior extension to the middle mediastinum. This measures approximately 7.9 x 7.0 x 7.8 cm in transverse, AP, and craniocaudal dimensions. There is encasement of the majority of the proximal aortic arch to ascending thoracic aorta as well as complete encasement of the right brachiocephalic artery. There is partial encasement of the superior anterior aspect of the right main pulmonary artery. These vessels are patent with good contrast enhancement.The SVC is not opacified and could not be well assessed; there may be complete encasement with obstruction.There is also partial encasement of the anterior aspect of the lower trachea above the marycarmen, resulting in moderate narrowing, as well as the proximal right main bronchus, resulting in marked focal stenosis.This mass is well inferior to the thyroid gland.This mass was not present on outside CT in June 2020.Vasculature: There is adequate opacification of the pulmonary arteries. No filling defects are identified to suggest the presence of pulmonary emboli. No signs of right heart strain.The main pulmonary artery has normal caliber. The thoracic aorta is within normal limits size. There is no significant aortic atherosclerotic calcification.Lymph Nodes: Mediastinal mass as above. No evidence of lymphadenopathy in the remaining chest by size criteria.Lungs/Pleura: Moderate narrowing of the lower intrathoracic trachea above the marycarmen and marked focal narrowing of the proximal right main bronchus, as above. Trace right greater than left pleural effusions with atelectatic changes in the dependent aspect. No pneumothorax is identified. No lung mass or apparent nodule is identified.Upper Abdomen: Contrast pooling about the falciform ligament of the left hepatic lobe with mild recanalized umbilical vein as well as prominent collateral vessels highly suggests occlusion of the SVC.Bones: No acute bony abnormality.Soft Tissues: Unremarkable.IMPRESSION:1. Aggressive appearing mediastinal mass as described above. Differential considerations may include lymphoma, thymic neoplasm, or germ cell tumors.2. Evaluation of the SVC is limited. However, contrast pooling about the falciform ligament and collateral vessels suggest SVC occlusion. [facility] [id number] 23:20:33 Test Item Value Reference Range Interpretation Comments RADRPT (test code EXAM: Chest CTADATE: = RADRPT) 04/11/2022 12:32.INDICATION: - evaluation for mediastinal mass.COMPARISON: Outside noncontrast chest CT 04/10/2022 and 07/16/2020TECHNIQUE: Volumetric CT angiography of the chest after the administration of intravenous contrast. Sagittal and coronal and MIP reconstructions are provided.AEC, mA/kV adjustment by patient size, and/or iterative reconstruction technique were used, per departmental dose-optimization program.Contrast phases: Pulmonary arterial.IV contrast: 80 mL Omnipaque 350.DLP: 176 mGy-cm.FINDINGS:Lines and Tubes: None.Visible Lower Neck: Unremarkable.Heart: The heart is within normal limits size. There is no pericardial effusion.Mediastinum: In the anterior superior mediastinum, there is a mass with posterior extension to the middle mediastinum. This measures approximately 7.9 x 7.0 x 7.8 cm in transverse, AP, and craniocaudal dimensions. There is encasement of the majority of the proximal aortic arch to ascending thoracic aorta as well as complete encasement of the right brachiocephalic artery. There is partial encasement of the superior anterior aspect of the right main pulmonary artery. These vessels are patent with good contrast enhancement.The SVC is not opacified and could not be well assessed; there may be complete encasement with obstruction.There is also partial encasement of the anterior aspect of the lower trachea above the marycarmen, resulting in moderate narrowing, as well as the proximal right main bronchus, resulting in marked focal stenosis.This mass is well inferior to the thyroid gland.This mass was not present on outside CT in June 2020.Vasculature: There is adequate opacification of the pulmonary arteries. No filling defects are identified to suggest the presence of pulmonary emboli. No signs of right heart strain.The main pulmonary artery has normal caliber. The thoracic aorta is within normal limits size. There is no significant aortic atherosclerotic calcification.Lymph Nodes: Mediastinal mass as above. No evidence of lymphadenopathy in the remaining chest by size criteria.Lungs/Pleura: Moderate narrowing of the lower intrathoracic trachea above the marycarmen and marked focal narrowing of the proximal right main bronchus, as above. Trace right greater than left pleural effusions with atelectatic changes in the dependent aspect. No pneumothorax is identified. No lung mass or apparent nodule is identified.Upper Abdomen: Contrast pooling about the falciform ligament of the left hepatic lobe with mild recanalized umbilical vein as well as prominent collateral vessels highly suggests occlusion of the SVC.Bones: No acute bony abnormality.Soft Tissues: Unremarkable.IMPRESSION:1. Aggressive appearing mediastinal mass as described above. Differential considerations may include lymphoma, thymic neoplasm, or germ cell tumors.2. Evaluation of the SVC is limited. However, contrast pooling about the falciform ligament and collateral vessels suggest SVC occlusion. [facility] Hospit[id number] 17:16:00 Test Item Value Reference Range Interpretation Comments Coronavirus (COVID-19) Not Detected OSCAR (test code = (04/11/22 12:16 PM) Coronavirus (COVID-19) OSCAR) [facility] HospitalTjkelbkNWXZRQAFAF0661-38-76 17:16:00 Test Item Value Reference Range Interpretation Comments Coronavirus (COVID-19) Not Detected OSCAR (test code = (04/11/22 12:16 PM) Coronavirus (COVID-19) OSCAR) [facility]2022-10-13 17:16:00 Test Item Value Reference Range Interpretation Comments Source Respiratory Nasophrngl Swb Panel PCR (test code = *NA*(04/11/22 12:16 Source Respiratory PM) Panel PCR) [facility]2022-10-13 17:16:00 Test Item Value Reference Range Interpretation Comments Influenza A PCR (test Negative *NA*(04/11/22 code = Influenza A PCR) 12:16 PM) [facility]2022-10-13 17:16:00 Test Item Value Reference Range Interpretation Comments Influenza B PCR (test Negative *NA*(04/11/22 code = Influenza B PCR) 12:16 PM) [facility]2022-10-13 17:16:00 Test Item Value Reference Range Interpretation Comments RSV PCR (test code = Negative *NA*(04/11/22 RSV PCR) 12:16 PM) [facility] [id number] 17:16:00 Test Item Value Reference Range Interpretation Comments Source Respiratory Nasophrngl Swb Panel PCR (test code = *NA*(04/11/22 12:16 Source Respiratory PM) Panel PCR) [facility]2022-10-13 17:16:00 Test Item Value Reference Range Interpretation Comments Influenza A PCR (test Negative *NA*(04/11/22 code = Influenza A PCR) 12:16 PM) [facility]2022-10-13 17:16:00 Test Item Value Reference Range Interpretation Comments Influenza B PCR (test Negative *NA*(04/11/22 code = Influenza B PCR) 12:16 PM) [facility]2022-10-13 17:16:00 Test Item Value Reference Range Interpretation Comments RSV PCR (test code = Negative *NA*(04/11/22 RSV PCR) 12:16 PM) [facility] Hospit[id number] 17:16:00 Test Item Value Reference Range Interpretation Comments Coronavirus (COVID-19) Not Detected OSCAR (test code = (04/11/22 12:16 PM) Coronavirus (COVID-19) OSCAR) [facility] Ho[id number] 17:16:00 Test Item Value Reference Range Interpretation Comments Coronavirus (COVID-19) Not Detected OSCAR (test code = (04/11/22 12:16 PM) Coronavirus (COVID-19) OSCAR) [facility]2022-10-13 17:16:00 Test Item Value Reference Range Interpretation Comments Source Respiratory Nasophrngl Swb Panel PCR (test code = *NA*(04/11/22 12:16 Source Respiratory PM) Panel PCR) [facility]2022-10-13 17:16:00 Test Item Value Reference Range Interpretation Comments Influenza A PCR (test Negative *NA*(04/11/22 code = Influenza A PCR) 12:16 PM) [place] [id number] 17:16:00 Test Item Value Reference Range Interpretation Comments Influenza B PCR (test Negative *NA*(04/11/22 code = Influenza B PCR) 12:16 PM) [facility]2022-10-13 17:16:00 Test Item Value Reference Range Interpretation Comments RSV PCR (test code = Negative *NA*(04/11/22 RSV PCR) 12:16 PM) [facility] [id number] 17:16:00 Test Item Value Reference Range Interpretation Comments Source Respiratory Nasophrngl Swb Panel PCR (test code = *NA*(04/11/22 12:16 Source Respiratory PM) Panel PCR) [facility]2022-10-13 17:16:00 Test Item Value Reference Range Interpretation Comments Influenza A PCR (test Negative *NA*(04/11/22 code = Influenza A PCR) 12:16 PM) [facility]2022-10-13 17:16:00 Test Item Value Reference Range Interpretation Comments Influenza B PCR (test Negative *NA*(04/11/22 code = Influenza B PCR) 12:16 PM) [place] [id number] 17:16:00 Test Item Value Reference Range Interpretation Comments RSV PCR (test code = Negative *NA*(04/11/22 RSV PCR) 12:16 PM) [facility] H[id number] 17:16:00 Test Item Value Reference Range Interpretation Comments Coronavirus (COVID-19) Not Detected OSCAR (test code = (04/11/22 12:16 PM) Coronavirus (COVID-19) OSCAR) [facility] HospitalAzyklaiYZXKAOHVEH9243-55-20 17:16:00 Test Item Value Reference Range Interpretation Comments Coronavirus (COVID-19) Not Detected OSCAR (test code = (04/11/22 12:16 PM) Coronavirus (COVID-19) OSCAR) [facility]2022-10-13 17:16:00 Test Item Value Reference Range Interpretation Comments Source Respiratory Nasophrngl Swb Panel PCR (test code = *NA*(04/11/22 12:16 Source Respiratory PM) Panel PCR) [facility]2022-10-13 17:16:00 Test Item Value Reference Range Interpretation Comments Influenza A PCR (test Negative *NA*(04/11/22 code = Influenza A PCR) 12:16 PM) [facility]2022-10-13 17:16:00 Test Item Value Reference Range Interpretation Comments Influenza B PCR (test Negative *NA*(04/11/22 code = Influenza B PCR) 12:16 PM) [facility]2022-10-13 17:16:00 Test Item Value Reference Range Interpretation Comments RSV PCR (test code = Negative *NA*(04/11/22 RSV PCR) 12:16 PM) [facility]2022-10-13 17:16:00 Test Item Value Reference Range Interpretation Comments Source Respiratory Nasophrngl Swb Panel PCR (test code = *NA*(04/11/22 12:16 Source Respiratory PM) Panel PCR) [facility]2022-10-13 17:16:00 Test Item Value Reference Range Interpretation Comments Influenza A PCR (test Negative *NA*(04/11/22 code = Influenza A PCR) 12:16 PM) [facility]2022-10-13 17:16:00 Test Item Value Reference Range Interpretation Comments Influenza B PCR (test Negative *NA*(04/11/22 code = Influenza B PCR) 12:16 PM) [facility]2022-10-13 17:16:00 Test Item Value Reference Range Interpretation Comments RSV PCR (test code = Negative *NA*(04/11/22 RSV PCR) 12:16 PM) [facility] Hospit[id number] 17:16:00 Test Item Value Reference Range Interpretation Comments Coronavirus (COVID-19) Not Detected OSCAR (test code = (04/11/22 12:16 PM) Coronavirus (COVID-19) OSCAR) [facility] HospitalW[id number] 17:16:00 Test Item Value Reference Range Interpretation Comments Coronavirus (COVID-19) Not Detected OSCAR (test code = (04/11/22 12:16 PM) Coronavirus (COVID-19) OSCAR) [facility]2022-10-13 17:16:00 Test Item Value Reference Range Interpretation Comments Source Respiratory Nasophrngl Swb Panel PCR (test code = *NA*(04/11/22 12:16 Source Respiratory PM) Panel PCR) [facility]2022-10-13 17:16:00 Test Item Value Reference Range Interpretation Comments Influenza A PCR (test Negative *NA*(04/11/22 code = Influenza A PCR) 12:16 PM) [place] [id number] 17:16:00 Test Item Value Reference Range Interpretation Comments Influenza B PCR (test Negative *NA*(04/11/22 code = Influenza B PCR) 12:16 PM) [facility]2022-10-13 17:16:00 Test Item Value Reference Range Interpretation Comments RSV PCR (test code = Negative *NA*(04/11/22 RSV PCR) 12:16 PM) [facility]2022-10-13 17:16:00 Test Item Value Reference Range Interpretation Comments Source Respiratory Nasophrngl Swb Panel PCR (test code = *NA*(04/11/22 12:16 Source Respiratory PM) Panel PCR) [facility]2022-10-13 17:16:00 Test Item Value Reference Range Interpretation Comments Influenza A PCR (test Negative *NA*(04/11/22 code = Influenza A PCR) 12:16 PM) [facility]2022-10-13 17:16:00 Test Item Value Reference Range Interpretation Comments Influenza B PCR (test Negative *NA*(04/11/22 code = Influenza B PCR) 12:16 PM) [facility]2022-10-13 17:16:00 Test Item Value Reference Range Interpretation Comments RSV PCR (test code = Negative *NA*(04/11/22 RSV PCR) 12:16 PM) [facility] Ho[id number] 17:16:00 Test Item Value Reference Range Interpretation Comments Coronavirus (COVID-19) Not Detected OSCAR (test code = (04/11/22 12:16 PM) Coronavirus (COVID-19) OSCAR) [facility] Hospit[id number] 17:16:00 Test Item Value Reference Range Interpretation Comments Coronavirus (COVID-19) Not Detected OSCAR (test code = (04/11/22 12:16 PM) Coronavirus (COVID-19) OSCAR) [facility]2022-10-13 17:16:00 Test Item Value Reference Range Interpretation Comments Source Respiratory Nasophrngl Swb Panel PCR (test code = *NA*(04/11/22 12:16 Source Respiratory PM) Panel PCR) [facility]2022-10-13 17:16:00 Test Item Value Reference Range Interpretation Comments Influenza A PCR (test Negative *NA*(04/11/22 code = Influenza A PCR) 12:16 PM) [facility]annMO[facility]ULAR [id number] 17:16:00 Test Item Value Reference Range Interpretation Comments Influenza B PCR (test Negative *NA*(04/11/22 code = Influenza B PCR) 12:16 PM) [facility] CenterannMDLECULAR [id number] 17:16:00 Test Item Value Reference Range Interpretation Comments RSV PCR (test code = Negative *NA*(04/11/22 RSV PCR) 12:16 PM) [facility] [id number] 17:16:00 Test Item Value Reference Range Interpretation Comments Source Respiratory Nasophrngl Swb Panel PCR (test code = *NA*(04/11/22 12:16 Source Respiratory PM) Panel PCR) [facility] [id number] 17:16:00 Test Item Value Reference Range Interpretation Comments Influenza A PCR (test Negative *NA*(04/11/22 code = Influenza A PCR) 12:16 PM) [facility] GSXEQCYZSW8769-01-26 17:16:00 Test Item Value Reference Range Interpretation Comments Influenza B PCR (test Negative *NA*(04/11/22 code = Influenza B PCR) 12:16 PM) [facility] [id number] 17:16:00 Test Item Value Reference Range Interpretation Comments RSV PCR (test code = Negative *NA*(04/11/22 RSV PCR) 12:16 PM) [facility] [id number] 15:40:00 Test Item Value Reference Range Interpretation Comments LDH (test code = LDH) 150 98-192 [facility] HospitalXkmrjlmJIDLSFKUU9948-91-93 15:40:00 Test Item Value Reference Range Interpretation Comments S Preg (test code = S Negative *NA*(04/11/22 Preg) 10:40 AM) [facility] HospitalKnesigkZMCDVOUHN7722-34-55 15:40:00 Test Item Value Reference Range Interpretation Comments TSH (test code = TSH) 1.580 0.360-3.740 [facility] HospitalWuxajkmAXHJOUYYYJPZV2423-83-77 15:40:00 Test Item Value Reference Range Interpretation Comments S Preg (test code = S Negative *NA*(04/11/22 Preg) 10:40 AM) [facility] CenterBqiswcvMUIAUDHMCV0954-46-41 15:40:00 Test Item Value Reference Range Interpretation Comments ACHr Binding Ab (test code = ACHr no gt Binding Ab) [facility] CenterFbmmtdkEEBUWMDNMM0240-26-02 15:40:00 Test Item Value Reference Range Interpretation Comments ACHr Block Ab (test code = ACHr Block no gt Ab) [facility] CenterLsguxjiFNYUXIAOTT8302-58-84 15:40:00 Test Item Value Reference Range Interpretation Comments ACHr Mod Ab (test code = ACHr Mod Ab) no gt [facility] CenterHpyinybNOTGPKTHRW8460-78-44 15:40:00 Test Item Value Reference Range Interpretation Comments Striated Muscle IgG (test code = NEGATIVE Striated Muscle IgG) [facility]annTINS[facility] [id number] 15:40:00 Test Item Value Reference Range Interpretation Comments AFP TM (test code = AFP TM) 2.5 [facility] CenterannTUMOR [id number] 15:40:00 Test Item Value Reference Range Interpretation Comments AFP TM (test code = AFP TM) 2.5 [facility] CenterannCHEM [id number] 15:40:00 Test Item Value Reference Range Interpretation Comments LDH (test code = LDH) 150 98-192 [facility] CenterShhakxoJLOCUYNFT8817-79-39 15:40:00 Test Item Value Reference Range Interpretation Comments S Preg (test code = S Negative *NA*(04/11/22 Preg) 10:40 AM) [facility] CenterWwgoymiAVQCNOEQT2918-03-02 15:40:00 Test Item Value Reference Range Interpretation Comments TSH (test code = TSH) 1.580 0.360-3.740 [facility] HospitalMyrhxpkNIMYIBLDTVJAY0841-28-02 15:40:00 Test Item Value Reference Range Interpretation Comments S Preg (test code = S Negative *NA*(04/11/22 Preg) 10:40 AM) [facility] CenterWegpwkhPXFCWZEBIF7381-96-98 15:40:00 Test Item Value Reference Range Interpretation Comments ACHr Binding Ab (test code = ACHr no gt Binding Ab) [facility] CenterAioqclpOEHLFMGVHC5017-93-87 15:40:00 Test Item Value Reference Range Interpretation Comments ACHr Block Ab (test code = ACHr Block no gt Ab) [facility] CenterOxsypuwEKLXNECUWR7881-07-13 15:40:00 Test Item Value Reference Range Interpretation Comments ACHr Mod Ab (test code = ACHr Mod Ab) no gt [facility] CenterNniymkvYRJUGNFUKR0718-13-50 15:40:00 Test Item Value Reference Range Interpretation Comments Striated Muscle IgG (test code = NEGATIVE Striated Muscle IgG) [facility]2022-10-13 15:40:00 Test Item Value Reference Range Interpretation Comments AFP TM (test code = AFP TM) 2.5 [facility] CenterannTUMOR [id number] 15:40:00 Test Item Value Reference Range Interpretation Comments AFP TM (test code = AFP TM) 2.5 [facility] CenterannCHEM [id number] 15:40:00 Test Item Value Reference Range Interpretation Comments LDH (test code = LDH) 150 98-192 [facility] HospitalSvgotkeUSZLCAQDO2321-04-10 15:40:00 Test Item Value Reference Range Interpretation Comments S Preg (test code = S Negative *NA*(04/11/22 Preg) 10:40 AM) [facility] HospitalAslhomeMYHSPAEGF0554-27-31 15:40:00 Test Item Value Reference Range Interpretation Comments TSH (test code = TSH) 1.580 0.360-3.[address] [facility]DnmrtzjSIUGXSRVCQFLG1691-62-53 15:40:00 Test Item Value Reference Range Interpretation Comments S Preg (test code = S Negative *NA*(04/11/22 Preg) 10:40 AM) [facility] HospitalJxkqwkdZVFZHETELC7799-29-75 15:40:00 Test Item Value Reference Range Interpretation Comments ACHr Binding Ab (test code = ACHr no gt Binding Ab) [facility] HospitalFklwzpoEQXZZXUAAN7777-42-20 15:40:00 Test Item Value Reference Range Interpretation Comments ACHr Block Ab (test code = ACHr Block no gt Ab) [facility] Hospit[id number] 15:40:00 Test Item Value Reference Range Interpretation Comments ACHr Mod Ab (test code = ACHr Mod Ab) no gt [facility] CenterJlxlevrTFNHSXHSVU9208-77-74 15:40:00 Test Item Value Reference Range Interpretation Comments Striated Muscle IgG (test code = NEGATIVE Striated Muscle IgG) [facility]2022-10-13 15:40:00 Test Item Value Reference Range Interpretation Comments AFP TM (test code = AFP TM) 2.5 [facility] CenterannSAVOY MEDICAL CENTERSMEEGLK1486-10-11 15:40:00 Test Item Value Reference Range Interpretation Comments AFP TM (test code = AFP TM) 2.5 [facility]CHE[facility] [id number] 15:40:00 Test Item Value Reference Range Interpretation Comments LDH (test code = LDH) 150 98-192 [facility] SgzqbkxZSJLGUIOG1964-55-77 15:40:00 Test Item Value Reference Range Interpretation Comments S Preg (test code = S Negative *NA*(04/11/22 Preg) 10:40 AM) [facility] CenterWrymzriOFGIDMHKK2022-24-19 15:40:00 Test Item Value Reference Range Interpretation Comments TSH (test code = TSH) 1.580 0.360-3.740 [facility] CenterDlnenlnAGMBWBAYYKNXA0644-92-02 15:40:00 Test Item Value Reference Range Interpretation Comments S Preg (test code = S Negative *NA*(04/11/22 Preg) 10:40 AM) [facility] CenterJvodbkpFCOLMOSLDR8316-85-42 15:40:00 Test Item Value Reference Range Interpretation Comments ACHr Binding Ab (test code = ACHr no gt Binding Ab) [facility] CenterWcnfcgaABSFQPNOPB5456-58-13 15:40:00 Test Item Value Reference Range Interpretation Comments ACHr Block Ab (test code = ACHr Block no gt Ab) [facility] SbogawkXTVHOSYRIA3294-92-38 15:40:00 Test Item Value Reference Range Interpretation Comments ACHr Mod Ab (test code = ACHr Mod Ab) no gt [facility] IzdsfwxCYCYIAKNPK4198-15-49 15:40:00 Test Item Value Reference Range Interpretation Comments Striated Muscle IgG (test code = NEGATIVE Striated Muscle IgG) [facility] CenterannTUMOR [id number] 15:40:00 Test Item Value Reference Range Interpretation Comments AFP TM (test code = AFP TM) 2.5 [facility]annT[facility] [id number] 15:40:00 Test Item Value Reference Range Interpretation Comments AFP TM (test code = AFP TM) 2.5 [facility]annCHEM [id number] 15:40:00 Test Item Value Reference Range Interpretation Comments LDH (test code = LDH) 150 98-192 [facility] CenterGswytczZJNEVFWHX4550-64-07 15:40:00 Test Item Value Reference Range Interpretation Comments S Preg (test code = S Negative *NA*(04/11/22 Preg) 10:40 AM) [facility] CenterFohqafnIHLKAQMZG2890-94-22 15:40:00 Test Item Value Reference Range Interpretation Comments TSH (test code = TSH) 1.580 0.360-3.740 [facility] HospitalFmftgtxVJSZCXBCJZLFW9675-95-66 15:40:00 Test Item Value Reference Range Interpretation Comments S Preg (test code = S Negative *NA*(04/11/22 Preg) 10:40 AM) [facility] HospitalBvcgtvuPALJEMXVHI5030-43-06 15:40:00 Test Item Value Reference Range Interpretation Comments ACHr Binding Ab (test code = ACHr no gt Binding Ab) [facility] CenterAhsefpdVDNAJUXFMH9548-79-92 15:40:00 Test Item Value Reference Range Interpretation Comments ACHr Block Ab (test code = ACHr Block no gt Ab) [facility] CenterDzitxmyBQPNKWBTWQ7361-18-17 15:40:00 Test Item Value Reference Range Interpretation Comments ACHr Mod Ab (test code = ACHr Mod Ab) no gt [facility] HospitalOpqxjbnPQEGZCQTDE8784-21-86 15:40:00 Test Item Value Reference Range Interpretation Comments Striated Muscle IgG (test code = NEGATIVE Striated Muscle IgG) [facility] HospitalTINS[facility] [id number] 15:40:00 Test Item Value Reference Range Interpretation Comments AFP TM (test code = AFP TM) 2.5 [facility] CenterannTINSCRIPTION [facility] [id number] 15:40:00 Test Item Value Reference Range Interpretation Comments AFP TM (test code = AFP TM) 2.5 [facility] HospitalQdeqqqeXGXOTZPJPD3131-56-81 13:59:00 Test Item Value Reference Range Interpretation Comments Basophils # (test code 0.1 See_Comment [Aut omated message] The = Basophils #) system which generated this result tra nsmitted reference range : <=0.2. The reference r quynh was not used to int erpret this result as normal/abnormal . [id number] 13:59:00 Test Item Value Reference Range Interpretation Comments Basophils # (test code 0.1 See_Comment [Aut omated message] The = Basophils #) system which generated this result tra nsmitted reference range : <=0.2. The reference r quynh was not used to int erpret this result as normal/abnormal . [id number] 13:59:00 Test Item Value Reference Range Interpretation Comments Basophils # (test code 0.1 See_Comment [Aut omated message] The = Basophils #) system which generated this result tra nsmitted reference range : <=0.2. The reference r quynh was not used to int erpret this result as normal/abnormal . [address]10-13 13:59:00 Test Item Value Reference Range Interpretation Comments Basophils # (test code 0.1 See_Comment [Aut omated message] The = Basophils #) system which generated this result tra nsmitted reference range : <=0.2. The reference r quynh was not used to int erpret this result as normal/abnormal . [address]10-13 13:59:00 Test Item Value Reference Range Interpretation Comments Basophils # (test code 0.1 See_Comment [Aut omated message] The = Basophils #) system which generated this result tra nsmitted reference range : <=0.2. The reference r quynh was not used to int erpret this result as normal/abnormal . [address]10-13 08:34:00 Test Item Value Reference Range Interpretation Comments Procalcitonin Lvl <0.05 ng/mL See_Comment [Automate d message] (test code = The system whic h Procalcitonin Lvl) generated this result transmit fabiano reference range : <=0.10. The reference range was not used to interpret this result as normal/abnormal . [address]10-13 08:34:00 Test Item Value Reference Range Interpretation Comments Procalcitonin Lvl <0.05 ng/mL See_Comment [Automate d message] (test code = The system whic h Procalcitonin Lvl) generated this result transmit fabiano reference range : <=0.10. The reference range was not used to interpret this result as normal/abnormal . [address]10-13 08:34:00 Test Item Value Reference Range Interpretation Comments Procalcitonin Lvl <0.05 ng/mL See_Comment [Automate d message] (test code = The system whic h Procalcitonin Lvl) generated this result transmit fabiano reference range : <=0.10. The reference range was not used to interpret this result as normal/abnormal . [address]10-13 08:34:00 Test Item Value Reference Range Interpretation Comments Procalcitonin Lvl <0.05 ng/mL See_Comment [Automate d message] (test code = The system whic h Procalcitonin Lvl) generated this result transmit fabiano reference range : <=0.10. The reference range was not used to interpret this result as normal/abnormal . [place] [id number] 08:34:00 Test Item Value Reference Range Interpretation Comments Procalcitonin Lvl <0.05 ng/mL See_Comment [Automate d message] (test code = The system whic h Procalcitonin Lvl) generated this result transmit fabiano reference range : <=0.10. The reference range was not used to interpret this result as normal/abnormal . [address]10-13 05:01:00 Test Item Value Reference Range Interpretation Comments Glucose POC (test code = Glucose POC) [address]10-13 05:01:00 Test Item Value Reference Range Interpretation Comments Glucose POC (test code = Glucose POC) [address]10-13 05:01:00 Test Item Value Reference Range Interpretation Comments Glucose POC (test code = Glucose POC) [address]10-13 05:01:00 Test Item Value Reference Range Interpretation Comments Glucose POC (test code = Glucose POC) [address]10[address]13 05:01:00 Test Item Value Reference Range Interpretation Comments Glucose POC (test code = Glucose POC) 123 [address]10-13 04:37:19 Test Item Value Reference Range Interpretation Comments RADRPT (test code Clinical History : , - = RADRPT) mediastinal massExam : Portable AP view of the chest 04/10/2022 22:19Comparisons : noneFindings : The lungs are clear without focal consolidation or pleural effusion.The heart is normal in size. The mediastinal contours are normal in appearance.The thoracic spine is age appropriate. The shoulders are unremarkable.Limited evaluation of the upper abdomen demonstrates no gross abnormalities.Impression:No acute cardiopulmonary disease [address]10-13 04:37:19 Test Item Value Reference Range Interpretation Comments RADRPT (test code Clinical History : , - = RADRPT) mediastinal massExam : Portable AP view of the chest 04/10/2022 22:19Comparisons : noneFindings : The lungs are clear without focal consolidation or pleural effusion.The heart is normal in size. The mediastinal contours are normal in appearance.The thoracic spine is age appropriate. The shoulders are unremarkable.Limited evaluation of the upper abdomen demonstrates no gross abnormalities.Impression:No acute cardiopulmonary disease [place] [id number] 04:37:19 Test Item Value Reference Range Interpretation Comments RADRPT (test code Clinical History : , - = RADRPT) mediastinal massExam : Portable AP view of the chest 04/10/2022 22:19Comparisons : noneFindings : The lungs are clear without focal consolidation or pleural effusion.The heart is normal in size. The mediastinal contours are normal in appearance.The thoracic spine is age appropriate. The shoulders are unremarkable.Limited evaluation of the upper abdomen demonstrates no gross abnormalities.Impression:No acute cardiopulmonary disease [place] [id number] 04:37:19 Test Item Value Reference Range Interpretation Comments RADRPT (test code Clinical History : , - = RADRPT) mediastinal massExam : Portable AP view of the chest 04/10/2022 22:19Comparisons : noneFindings : The lungs are clear without focal consolidation or pleural effusion.The heart is normal in size. The mediastinal contours are normal in appearance.The thoracic spine is age appropriate. The shoulders are unremarkable.Limited evaluation of the upper abdomen demonstrates no gross abnormalities.Impression:No acute cardiopulmonary disease [place] [id number] 04:37:19 Test Item Value Reference Range Interpretation Comments RADRPT (test code Clinical History : , - = RADRPT) mediastinal massExam : Portable AP view of the chest 04/10/2022 22:19Comparisons : noneFindings : The lungs are clear without focal consolidation or pleural effusion.The heart is normal in size. The mediastinal contours are normal in appearance.The thoracic spine is age appropriate. The shoulders are unremarkable.Limited evaluation of the upper abdomen demonstrates no gross abnormalities.Impression:No acute cardiopulmonary disease [facility] CHEST W/O CONTRAST *WW*2022-04-10 13:50:06 [facility] : 1970 Sex: FCT chest without contrast HISTORY: Chest and back painCOMMENT: Multidetector slices through the chest were obtained without contrast.Dose lowering technique with automatic exposure control utilized. The heart is not enlarged. No pericardial effusion. Aorta and the great vessels are within normal limitsPulmonary trunk is within normal limitsThere is a prominent anterior and mid mediastinal mass measuring 6.9 x 6.6 x 6.7 cm abutting the aorta and envelops the brachiocephalic and common carotid arteries.Tracheobronchial tree is patent without bronchiectasis or endobronchial lesions. No consolidations or effusions.Evaluation of the upper abdomen demonstrates no significant abnormality. ENGINEERING SUPERVISOR shunt catheter tubing in the anterior right thorax and adjacent to the right lobe of the liver superiorly and anteriorly.Osseous structures demonstrate no significant abnormality.IMPRESSION:1. Prominent anterior mediastinal mass bythe thoracic inlet to inferior to the thyroid gland could represent a mediastinal mass such as a thymoma or teratoma versus lymphadenopathy. Mass abuts the aorta and envelops the origin of the brachiocephalic and common carotid arteries. Follow- up postcontrast imaging is suggested.2. No suspicious masses in the lungs are identified.Electronically signed by: Artem Alcocer MD 04/10/2022 1:50 PM CDT Workstation: [id number] ABUSE *WW*2022-04-10 13:04:00 Test Item Value Reference Range Interpretation Comments DRUG SCRN (test code = URINE DRUG HDOA) SCREEN This is an unconfirmed screening result and should not be used for non-medical purposes CANNABINOD (test code NEGATIVE NEGATIVE = 88C) AMPHETAMINE (test code NEGATIVE NEGATIVE = 84A) BENZODIAZP (test code NEGATIVE NEGATIVE = 86A) BARBITURAT (test code NEGATIVE NEGATIVE = 85A) OPIATES (test code = NEGATIVE NEGATIVE 92B) COCAINE (test code = NEGATIVE NEGATIVE 87A) PHENCYCLID (test code NEGATIVE NEGATIVE = 66A) METHADONE (test code = NEGATIVE NEGATIVE 64A) DOAH (test code = DOAH.) URINE DRUGSCREEN Cut-off values are as follows: Cannabinoids 50 ng/mL Cocaine 300 ng/mL Amphetamines 1000 ng/mL Phencyclidine 25 ng/mL Benzodiazepines 200 ng.mL Methadone 300 ng/mL Barbiturates 200 ng/mL Opiates 300 ng/mL URINALYSIS WITH MICRO *WW*2022-04-10 13:02:00 Test Item Value Reference Range Interpretation Comments COLOR (test code = COLU) YELLOW YELLOW CLARITY (test code = CLA) SLT HAZY CLEAR A GLUCOSE UR (test code = UA NEGATIVE NEGATIVE GLUCOSE) BILI UR (test code = BILE) NEGATIVE NEGATIVE KETONES UR (test code = KYM) TRACE NEGATIVE A SP GRAVITY (test code = SPGR) 1.025 1.005-1.030 PH UR (test code = PH) 5.5 4.5-8.0 PROTEIN UR (test code = PU) 1+ NEGATIVE A UROBIL UR (test code = UROQ) 0.2 EU/dL 0.2-1.0 NITRITE UR (test code = NEGATIVE NEGATIVE NITRITE) BLOOD UR (test code = UA BLOOD) NEGATIVE NEGATIVE LEUK ES UR (test code = LEUK) NEGATIVE NEGATIVE WBC UR (test code = UWBC) 0 /HPF 0-5 RBC UR (test code = URBC) 0 /HPF 0-2 EPITH UR (test code = UEPC) FEW /LPF FEW BACTERIA UR (test code = UBACT) MODERATE /HPF NONE A CAST UR (test code = CAST) /LPF NONE CRYSTAL UR (test code = CRYU) / LPF NONE MUCUS UR (test code = MUC) FEW / HPF NONE A AMORPH UR (test code = MAYA) / HPF NONE TRICH UR (test code = UTRICH) /HPF NONE YEAST UR (test code = UY) /HPF NONE SPERM UR (test code = USPERM) /HPF NONE COMPREHENSIVE METABOLIC RADFORD *WW*2022-04-10 12:52:00 Test Item Value Reference Range Interpretation Comments GLUCOSE (test code 119 mg/dL 75-100 H = 06D) SODIUM (test code 143 mmol/L 136-145 = 01A) POTASSIUM (test 3.6 mmol/L 3.6-5.1 code = 01B) CHLORIDE (test 108 mmol/L 98-107 H code = 04A) CO2 (test code = 23 mmol/L 20-31 02A) ANION GAP (test 15.6 mmol/L code = ANG) BUN (test code = 10 mg/dL 9- 05D) CREATININE (test 0.6 mg/dL 0.6-1.0 code = 03E) GFR (test code = 104 See_Comment [Automated GFR) mL/min/1.73m\\S\\2 message] Th e system which generated this result transmit fabiano reference range : >=90. The reference range was not used to interpret this result as normal/abnormal . GFR 120 See_Comment [Automated DJIBOUTIAN (test mL/min/1.73m\\S\\2 message] The code = GFRAA) system which generated this result transmit fabiano reference range : >=90. The reference range was not used to interpret this result as normal/abnormal . EGFR (test code = eGFR BY EGFR) CKD-EPI CALCULATION IS NOT RECOMMENDED FOR PATIENTS UNDER 18 YEARS OF AGE. BUN/CREA (test 06-18 code = BCR) CALCIUM (test code 8.9 mg/dL 8.3-10.6 = 09D) BILI TOTAL (test 0.3 mg/dL 0.2-1.0 code = 11A) PROTEIN (test code 6.8 g/dL 5.7-8.2 = 07D) ALBUMIN (test code 4.1 g/dL 3.2-4.8 = 08D) GLOBULIN (test 2.7 g/dL 1.5-3.8 code = GLB) ALB/GLOB (test 1.5 1.0-2.6 code = AGRR) ALK PHOS (test 109 IU/L 46-116 code = 35A) AST (test code = 11 IU/L See_Comment [Automated 30A) message] The system which generated this result transmit fabiano reference range : <=33. The reference range was not used to interpret this result as normal/abnormal . ALT (test code = 14 IU/L 10 31A) MAGNESIUM WW2022-04-10 12:52:00 Test Item Value Reference Range Interpretation Comments MAGNESIUM (test code = 48A) 1.9 mg/dL 1.6-2.6 BRAIN NATRIURETIC PEPTIDE *WW*2022-04-10 12:49:00 Test Item Value Reference Range Interpretation Comments BNP (test code = 26 pg/mL See_Comment [Automated message] The A74) system which ge nerated this result tra nsmitted reference range : <=100. The reference r quynh was not used to int erpret this result as aleks l/abnormal. PRO TIME AND PTT *WW*2022-04-10 12:49:00 Test Item Value Reference Range Interpretation Comments PT (test code = 15.4 s 9.8-13.6 H TT) INR (test code = 1.3 INR) INRH (test code = SUGGESTED THERAPEUTIC INRH) RANGE FOR INR: 2.5 - 3.5 For Patients with Prosthetic Valves or Patients with recurrent Thromboembolic Events 2.0 - 3.0 For Most Other Applications PTT (test code = 36.2 s 20.2-38.0 PTT) PTTH (test code = To monitor the PTTH) effectiveness of heparin, we offer the Anti-Xa (Heparin Assay). It can be used for either unfractionated or LMW Heparin. Order Code is ANTI-XA TROPONIN I *WW*2022-04-10 12:48:00 Test Item Value Reference Range Interpretation Comments TROPONIN I (test code = A84) <2.50 pg/mL 0.00-45.20 CBC (INCLUDES AUTOMATED DIFFERENTIAL)*[id number] 12:34:00 Test Item Value Reference Range Interpretation Comments WBC (test code = WBC) 15.3 10\\S\\3/uL 4.5-11.0 H RBC (test code = RBC) 3.85 10\\S\\6/uL 4.20-5.60 L HGB (test code = HBG) 10.0 g/dL 12.0-15.5 L HCT (test code = HCT) 32.1 % 35.0-44.0 L MCV (test code = MCV) 83.4 fL 81.0-99.0 MCH (test code = MCH) 26.0 pg 27.0-31.0 L MCHC (test code = MCHC) 31.2 g/dL 32.0-36.0 L RDW (test code = RDW) 15.6 % 11.5-14.5 H PLT (test code = PLT) 332 10\\S\\3/uL 130-400 MPV (test code = MPV) 9.9 fL 9.4-12.4 NEUTROP # (test code = NE#) 11.6 10\\S\\3/uL 1.6-8.0 H LYMPH # (test code = LY#) 2.5 10\\S\\3/uL 1.1-3.5 MONOCYTE # (test code = MO#) 0.9 10\\S\\3/uL 0.0-1.1 EOSINOPH # (test code = EO#) 0.1 10\\S\\3/uL 0.0-0.7 BASOPHIL # (test code = BA#) 0.1 10\\S\\3/uL 0.0-0.3 IG # (test code = IG#) 0.09 10\\S\\3/uL 0.00-0.06 H NRBC # (test code = NRBC#) 0.00 10\\S\\3/uL 0.00-0.01 NEUTROPH % (test code = NE%) 75.9 % 35.0-73.0 H LYMPH % (test code = LY%) 16.5 % 20.0-55.0 L MONO % (test code = MO%) 5.9 % 2.5-10.0 EOSINOPH % (test code = EO%) 0.7 % 0.0-5.0 BASOPHIL % (test code = BA%) 0.4 % 0.0-2.0 IG % (test code = IG%) 0.6 % 0.0-0.8 NRBC% (test code = NRBC%) 0.0 % 0.0-0.2 MANDIFF (test code = WMDIFF) NO NO RBC MORPH (test code = NORMAL WRBCMOR) Influenza virus A and B and SARS-CoV-2 (COVID-19) and Respiratory syncytial virus RNA panel - Respiratory specimen by [facility] with probe [id number] 18:41:27 Test Item Value Reference Range Interpretation Comments Influenza A (test code = Influenza negative A) Influenza B (test code = Influenza negative B) RSV (test code = RSV) negative Sars Cov 2 (test code = Sars Cov 2) negative [facility] and occult [facility] [[facility]] in [id number] 00:00:00 Test Item Value Reference Range Interpretation Comments noninvasive colorectal cancer DNA + negative occult blood screening, ql, stool (test code = noninvasive colorectal cancer DNA + occult blood screening, ql, stool) [facility] MICROSCOPICOW 2022-02-13 16:31:00 Test Item Value Reference Range Interpretation Comments COLOR (test code = Yellow YELLOW COLU) CLARITY (test code = Clear CLEAR CLA) GLUCOSE UR (test Negative NEGATIVE code = UA GLUCOSE) BILI UR (test code = Negative NEGATIVE BILE) KETONES UR (test Negative NEGATIVE code = KYM) SP GRAVITY (test 1.015 1.005-1.030 code = SPGR) PH UR (test code = 7.5 4.5-8.0 PH) PROTEIN UR (test Negative NEGATIVE code = PU) NITRITE UR (test Negative NEGATIVE code = NITRITE) UROBIL UR (test code 0.2 E.U./dL = GUROQ) UROBIL UR (test code UROBILINOGEN = GUROQC) REFERENCE RANGE 0.2 - 1.0 EU/dL BLOOD UR (test code Negative NEGATIVE = UA BLOOD) LEUK ES UR (test Negative NEGATIVE code = LEUK) CT ABDOMEN AND PELVIS WITH CONTRAST *OW*2022-02-13 16:11:39 [facility] : 1970 Sex: FEXAMINATION:CT AB DOMEN AND PELVIS WITH CONTRAST CLINICAL INDICATION:Female, 51 years old with Abdominal painTECHNIQUE: Thin section axial post-contrast contiguous images were obtained through the abdomen and pelvis followed by coronal and sagittal multiplanar reformations.One or more of the following dose reduction techniques were used: Automated exposure control, adjustment of the mA and/or kV according to patient size, and/or iterative reconstruction. COMPARISON: NoneFINDINGS:Lower Chest: Visualized lung bases areclear. Heart is normal in size. No pericardial or pleural effusion.Liver: Normal in size and contour. 3.2 cm left hepatic cyst requires no additional follow-up. No focal lesions. Bile ducts are of normal caliber.ENGINEERING SUPERVISOR shunt tubing tip at adjacent to the right lobe the liver superiorly and anteriorly. There is no adjacent fluid collection.Gallbladder: No stones, wall thickening, or pericholecystic fluid.Pancreas: Normal appearance without focal lesion.Spleen: Normal in size and contour.Adrenals: Normal c onfiguration.Kidneys and ureters: Normal size and contour. No hydronephrosis.Bladder/Reproductive Organs: Normal in appearance. Uterus is surgically absent. No adnexal mass.Bowel: Loops of bowel without wall thickening or obstruction. Appendix is surgically absent. Diverticuli are seen scattered throughout the sigmoid colon with no wall thickening or adjacent inflammation. No free air, free fluid, orfluid collection.Lymph nodes: There are no pathologically enlarged abdominopelvic lymph nodes.Retroperitoneum: No mass or hemorrhage. Abdominal aorta and inferior vena cava are normal in course and joshua chelly.Abdominal wall: No hernia or mass.Bones: No acute abnormality or suspicious bony lesion.IMPRESSION:1. No acute abdominopelvic abnormality.2. Diverticulosis without evidence of diverticulitis.Electronically signed by: Andrew Cardenas MD 02/13/2022 4:11 PM CDT [id number] Panel *OW* ramona 2022-02-13 15:36:00 Test Item Value Reference Range Interpretation Comments GLUCOSE (test code = GGUL) 163 mg/dL 73-118 H BUN (test code = GBUN) 15 mg/dL 7-22 CREATININE (test code = GCRE) 0.2 mg/dL 0.6-1.2 L CK TOTAL (test code = GCK) 99 U/L 30-190 SODIUM (test code = GNA+) 139 mmol/L 128-145 POTASSIUM (test code = GK+) 3.6 mmol/L 3.6-5.1 CHLORIDE (test code = GCL-) 101 mmol/L 98-108 TCO2 (test code = GTC02) 25 mmol/L 18-33 GENERAL CHEMISTRY 13 *OW* [id number] 15:35:00 Test Item Value Reference Range Interpretation Comments GLUCOSE (test code = GGUL) 163 mg/dL 73-118 H BUN (test code = GBUN) 15 mg/dL 7-22 CREATININE (test code = GCRE) 0.2 mg/dL 0.6-1.2 L URIC ACID (test code = GUA) 4.0 mg/dL 2.2-6.6 CALCIUM (test code = GCL+) 10.0 mg/dL 8.0-10.3 ALBUMIN (test code = GALB) 3.5 g/dL 3.5-5.5 PROTEIN (test code = GTP) 8.5 g/dL 6.4-8.1 H ALT (test code = GALT) 16 U/L 10-47 AST (test code = FORTUNATO) 25 U/L 11-38 ALK PHOS (test code = GALP) 103 U/L 42-141 BILI TOTAL (test code = GTBIL) 0.5 mg/dL 0.2-1.6 GGT (test code = GGGT) 51 U/L 5-65 AMYLASE (test code = GAMY) 50 U/L 14-97 CBC (INCLUDES AUTOMATED DIFFERENTIAL) *2022-02-13 15:26:00 Test Item Value Reference Range Interpretation Comments WBC (test code = WBC) 18.4 10\\S\\3/uL 4.5-11.0 H RBC (test code = RBC) 4.73 10\\S\\6/uL 4.20-5.60 HGB (test code = HBG) 12.6 g/dL 12.0-15.5 HCT (test code = HCT) 39.8 % 35.0-44.0 MCV (test code = MCV) 84.2 fL 81.0-99.0 MCH (test code = MCH) 26.6 pg 27.0-31.0 L MCHC (test code = MCHC) 31.7 g/dL 32.0-36.0 L RDW (test code = RDW) 14.7 % 11.5-14.5 H PLT (test code = PLT) 401 10\\S\\3/uL 130-400 H MPV (test code = OMPV) 8.5 fL 6.2-10.2 NEUTROP # (test code = NE#) 13.8 10\\S\\3/uL 1.6-8.0 H LYMPH # (test code = LY#) 3.8 10\\S\\3/uL 1.1-3.5 H MID # (test code = GMID#) 0.8 10\\S\\3/uL 0.0-1.1 GRAN % (test code = GRA%) 75.1 % 35.0-73.0 H LYMPH % (test code = GLY%) 20.6 % 20.0-55.0 MID % (test code = GMID%) 4.3 % 0.0-10.0 BASIC METABOLIC PANEL (NA, K, CL, CO2, GLUCOSE, BUN, CREATININE, CA)2022-01-22 15:32:06 Test Item Value Reference Range Interpretation Comments NA (test code = 142 mmol/L 135-145 9713297550) K (test code = 3.5 mmol/L 3.5-5 1360094867) CL (test code = 106 mmol/L 98-108 8411672473) CO2 TOTAL (test code 30 mmol/L 23-31 = 5082253745) AGAP (test code = 2-16 4152963649) BUN (test code = 9 mg/dL 7-23 2913779716) GLUCOSE (test code = 108 mg/dL 70-110 2387881773) CREATININE (test code 0.61 mg/dL 0.5-1.04 = 4968860662) CALCIUM (test code = 9.0 mg/dL 8.6-10.6 0490277675) eGFR (test code = mL/min/1.73m2 8642312419) SILVINA (test code = SILVINA) Association of Glomerular Filtration Rate (GFR) and Staging of Kidney Disease* + + +- +| GFR (mL/min/1.73 m2) ?| With Kidney Damage ?| ?Without Kidney Damage+ ------+ ----+ ------+| ?>90 ?| ?Stage one ?| ? Normal ?+ -+ + -+| ?60-89 ?| ?Stage two ?| ? Decreased GFR ? + + +- +| ?30-59 ?| ?Stage three ?| ? Stage three ? + + +- +| ?15-29 ?| ?Stage four ? | ? Stage four ?+ -+ + -+| ?<15 (or dialysis) ? ?| ?Stage five ? | ? Stage five ?+ -+ + -+ *Each stage assumes the associated GFR level has been in effect for at least three months. ?Stages 1 to 5, with or without kidney disease, indicate chronic kidney disease. Notes: Determination of stages one and two (with eGFR >59mL/min/1.73 m2) requires estimation of kidney damage for at least three months as defined by structural or functional abnormalities of the kidney, manifested by either:Pathological abnormalities or Markers of kidney damage (including abnormalities in the composition of the blood or urine or abnormalities in imaging tests). [facility] WITH [id number] 15:22:45 Test Item Value Reference Range Interpretation Comments WBC (test code = See_Comment H [Automated 7543-2) message] The sy stem which generated this result transmitted reference range : 4.30 - 11.10 10*3/?L. The reference range was not used to interpret this result as normal/abnormal . RBC (test code = See_Comment [Automated 928-8) message] The sy stem which generated this result transmitted reference range : 3.93 - 5.25 10*6/?L. The reference range was not used to interpret this result as normal/abnormal . HGB (test code = 10.7 g/dL 11.6-15 L 718-7) HCT (test code = 34.0 % 35.7-45.2 L 4544-3) MCV (test code = 82.3 fL 80.6-95.5 787-2) MCH (test code = 25.9 pg 25.9-32.8 785-6) MCHC (test code = 31.5 g/dL 31.6-35.1 L 786-4) RDW-SD (test code = 43.5 fL 39-49.9 44613-1) RDW-CV (test code = 14.6 % 12-15.5 788-0) PLT (test code = See_Comment [Automated 777-3) message] The sy stem which generated this result transmitted reference range : 166 - 358 10*3/ ?L. The reference r quynh was not used to interpret this result as normal/abnormal . MPV (test code = 10.3 fL 9.5-12.9 21047-6) NRBC/100 WBC (test See_Comment [Automat ed code = 0870442764) message] The system which generated this result transmitted reference range : 0.0 - 10.0 /100 WBCs. The refer ence range was not u sed to interpret th is result as normal/abnormal . NRBC x10^3 (test code See_Comment [Auto mated = [id number]) message] The s ystem which generated this result transmitted reference range : 10*3/?L. The reference range was not used to interpret this result as normal/abnormal . GRAN MAT (NEUT) % 73.9 % (test code = 770-8) IMM GRAN % (test code 0.30 % = 8808432909) LYMPH % (test code = 16.1 % 736-9) MONO % (test code = 7.9 % 5905-5) EOS % (test code = 1.4 % 713-8) BASO % (test code = 0.4 % 706-2) GRAN MAT x10^3(ANC) 8.36 10*3/uL 1.88-7.09 H (test code = 6632126975) IMM GRAN x10^3 (test 0.03 10*3/uL 0-0.06 code = 0375217053) LYMPH x10^3 (test code 1.82 10*3/uL 1.32-3.29 = 731-0) MONO x10^3 (test code 0.89 10*3/uL 0.33-0.92 = 742-7) EOS x10^3 (test code = 0.16 10*3/uL 0.03-0.39 711-2) BASO x10^3 (test code 0.04 10*3/uL 0.01-0.07 = 704-7) Lab Interpretation Abnormal (test code = 94008-6) [facility] W Auto Differential panel - Blood 2021-09-07 00:00:00 Test Item Value Reference Range Interpretation Comments Leukocytes [#/volume] in Blood 12.5 x10e3/uL 3.4-10.8 H by Automated count (test code = 6690-2) Erythrocytes [#/volume] in 4.59 x10e6/uL 3.77-5.28 Blood by Automated count (test code = 789-8) Hemoglobin [Mass/volume] in 12.2 g/dL 11.1-15.9 Blood (test code = 718-7) Hematocrit [Volume Fraction] of 38.6 % 34.0-46.6 Blood by Automated count (test code = 4544-3) Erythrocyte mean corpuscular 84 fL 79-97 volume [Entitic volume] by Automated count (test code = 787-2) Erythrocyte mean corpuscular 26.6 pg 26.6-33.0 hemoglobin [Entitic mass] by Automated count (test code = 785-6) Erythrocyte mean corpuscular 31.6 g/dL 31.5-35.7 hemoglobin concentration [Mass/volume] by Automated count (test code = 786-4) Erythrocyte distribution width 13.3 % 11.7-15.4 [Ratio] by Automated count (test code = 788-0) Platelets [#/volume] in Blood 364 x10e3/uL 150-450 by Automated count (test code = 777-3) Neutrophils/100 leukocytes in 65 % not estab. Blood by Automated count (test code = 770-8) Lymphocytes/100 leukocytes in 23 % not estab. Blood by Automated count (test code = 736-9) Monocytes/100 leukocytes in 7 % not estab. Blood by Automated count (test code = 5905-5) Eosinophils/100 leukocytes in 3 % not estab. Blood by Automated count (test code = 713-8) Basophils/100 leukocytes in 1 % not estab. Blood by Automated count (test code = 706-2) immature cells (test code = timber grader immature cells) Neutrophils [#/volume] in Blood 8.4 x10e3/uL 1.4-7.0 H by Automated count (test code = 751-8) Lymphocytes [#/volume] in Blood 2.9 x10e3/uL 0.7-3.1 by Automated count (test code = 731-0) Monocytes [#/volume] in Blood 0.8 x10e3/uL 0.1-0.9 by Automated count (test code = 742-7) Eosinophils [#/volume] in Blood 0.3 x10e3/uL 0.0-0.4 by Automated count (test code = 711-2) Basophils [#/volume] in Blood 0.1 x10e3/uL 0.0-0.2 by Automated count (test code = 704-7) Immature granulocytes/100 1 % not estab. leukocytes in Blood by Automated count (test code = 95671-6) Immature granulocytes 0.1 x10e3/uL 0.0-0.1 [#/volume] in Blood by Automated count (test code = 14756-0) Nucleated erythrocytes/100 timber grader leukocytes [Ratio] in Blood by Automated count (test code = 57669-9) Morphology [Interpretation] in timber grader Blood Narrative (test code = 97279-5) [facility] Outreach ProgramComprehensive metabolic 2000 panel - Serum or [id number] 00:00:00 Test Item Value Reference Range Interpretation Comments Glucose [Mass/volume] in Serum 122 mg/dL 65-99 H or Plasma (test code = 2345-7) Urea nitrogen [Mass/volume] in 11 mg/dL 6-24 Serum or Plasma (test code = 3094-0) Creatinine [Mass/volume] in 0.73 mg/dL 0.57-1.00 Serum or Plasma (test code = 2160-0) eGFR (test code = eGFR) 98 mL/min/1.73 >59 Urea nitrogen/Creatinine [Mass 15 9-23 Ratio] in Serum or Plasma (test code = 3097-3) Sodium [Moles/volume] in Serum 142 mmol/L 134-144 or Plasma (test code = 2951-2) Potassium [Moles/volume] in 3.8 mmol/L 3.5-5.2 Serum or Plasma (test code = 2823-3) Chloride [Moles/volume] in 100 mmol/L 96-106 Serum or Plasma (test code = 5-0) Carbon dioxide, total 25 mmol/L 20-29 [Moles/volume] in Serum or Plasma (test code = 2027-9) Calcium [Mass/volume] in Serum 9.4 mg/dL 8.7-10.2 or Plasma (test code = 18408-2) Protein [Mass/volume] in Serum 7.0 g/dL 6.0-8.5 or Plasma (test code = 2885-2) Albumin [Mass/volume] in Serum 4.2 g/dL 3.8-4.9 or Plasma (test code = 1751-7) Globulin [Mass/volume] in 2.8 g/dL 1.5-4.5 Serum by calculation (test code = 99415-0) Albumin/Globulin [Mass Ratio] 1.5 1.2-2.2 in Serum or Plasma (test code = 1759-0) Bilirubin.total [Mass/volume] 0.4 mg/dL 0.0-1.2 in Serum or Plasma (test code = 1974-2) Alkaline phosphatase 138 IU/L 44-121 H [Enzymatic activity/volume] in Serum or Plasma (test code = 6768-6) Aspartate aminotransferase 21 IU/L 0-40 [Enzymatic activity/volume] in Serum or Plasma (test code = 1920-8) Alanine aminotransferase 25 IU/L 0-32 [Enzymatic activity/volume] in Serum or Plasma (test code = 1742-6) [facility] ProgramLipase [Enzymatic activity/volume] in Serum or [id number] 00:00:00 Test Item Value Reference Range Interpretation Comments Lipase [Enzymatic activity/volume] in 32 U/L 14-72 Serum or Plasma (test code = 3040-3) [facility] W Auto Differential panel - Blood 2021-09-07 00:00:00 Test Item Value Reference Range Interpretation Comments Leukocytes [#/volume] in Blood 12.5 x10e3/uL 3.4-10.8 H by Automated count (test code = 6690-2) Erythrocytes [#/volume] in 4.59 x10e6/uL 3.77-5.28 Blood by Automated count (test code = 789-8) Hemoglobin [Mass/volume] in 12.2 g/dL 11.1-15.9 Blood (test code = 718-7) Hematocrit [Volume Fraction] of 38.6 % 34.0-46.6 Blood by Automated count (test code = 4544-3) Erythrocyte mean corpuscular 84 fL 79-97 volume [Entitic volume] by Automated count (test code = 787-2) Erythrocyte mean corpuscular 26.6 pg 26.6-33.0 hemoglobin [Entitic mass] by Automated count (test code = 785-6) Erythrocyte mean corpuscular 31.6 g/dL 31.5-35.7 hemoglobin concentration [Mass/volume] by Automated count (test code = 786-4) Erythrocyte distribution width 13.3 % 11.7-15.4 [Ratio] by Automated count (test code = 788-0) Platelets [#/volume] in Blood 364 x10e3/uL 150-450 by Automated count (test code = 777-3) Neutrophils/100 leukocytes in 65 % not estab. Blood by Automated count (test code = 770-8) Lymphocytes/100 leukocytes in 23 % not estab. Blood by Automated count (test code = 736-9) Monocytes/100 leukocytes in 7 % not estab. Blood by Automated count (test code = 5905-5) Eosinophils/100 leukocytes in 3 % not estab. Blood by Automated count (test code = 713-8) Basophils/100 leukocytes in 1 % not estab. Blood by Automated count (test code = 706-2) immature cells (test code = timber grader immature cells) Neutrophils [#/volume] in Blood 8.4 x10e3/uL 1.4-7.0 H by Automated count (test code = 751-8) Lymphocytes [#/volume] in Blood 2.9 x10e3/uL 0.7-3.1 by Automated count (test code = 731-0) Monocytes [#/volume] in Blood 0.8 x10e3/uL 0.1-0.9 by Automated count (test code = 742-7) Eosinophils [#/volume] in Blood 0.3 x10e3/uL 0.0-0.4 by Automated count (test code = 711-2) Basophils [#/volume] in Blood 0.1 x10e3/uL 0.0-0.2 by Automated count (test code = 704-7) Immature granulocytes/100 1 % not estab. leukocytes in Blood by Automated count (test code = 43900-1) Immature granulocytes 0.1 x10e3/uL 0.0-0.1 [#/volume] in Blood by Automated count (test code = 31662-3) Nucleated erythrocytes/100 timber grader leukocytes [Ratio] in Blood by Automated count (test code = 06547-5) Morphology [Interpretation] in timber grader Blood Narrative (test code = 64648-6) [facility] Outreach ProgramComprehensive metabolic 2000 panel - Serum or [id number] 00:00:00 Test Item Value Reference Range Interpretation Comments Glucose [Mass/volume] in Serum 122 mg/dL 65-99 H or Plasma (test code = 2345-7) Urea nitrogen [Mass/volume] in 11 mg/dL 6-24 Serum or Plasma (test code = 3094-0) Creatinine [Mass/volume] in 0.73 mg/dL 0.57-1.00 Serum or Plasma (test code = 2160-0) eGFR (test code = eGFR) 98 mL/min/1.73 >59 Urea nitrogen/Creatinine [Mass 15 9-23 Ratio] in Serum or Plasma (test code = 3097-3) Sodium [Moles/volume] in Serum 142 mmol/L 134-144 or Plasma (test code = 2951-2) Potassium [Moles/volume] in 3.8 mmol/L 3.5-5.2 Serum or Plasma (test code = 2823-3) Chloride [Moles/volume] in 100 mmol/L 96-106 Serum or Plasma (test code = 2075-0) Carbon dioxide, total 25 mmol/L 20-29 [Moles/volume] in Serum or Plasma (test code = 2028-9) Calcium [Mass/volume] in Serum 9.4 mg/dL 8.7-10.2 or Plasma (test code = 60961-0) Protein [Mass/volume] in Serum 7.0 g/dL 6.0-8.5 or Plasma (test code = 2885-2) Albumin [Mass/volume] in Serum 4.2 g/dL 3.8-4.9 or Plasma (test code = 1751-7) Globulin [Mass/volume] in 2.8 g/dL 1.5-4.5 Serum by calculation (test code = 13077-1) Albumin/Globulin [Mass Ratio] 1.5 1.2-2.2 in Serum or Plasma (test code = 1759-0) Bilirubin.total [Mass/volume] 0.4 mg/dL 0.0-1.2 in Serum or Plasma (test code = 1975-2) Alkaline phosphatase 138 IU/L 44-121 H [Enzymatic activity/volume] in Serum or Plasma (test code = 6768-6) Aspartate aminotransferase 21 IU/L 0-40 [Enzymatic activity/volume] in Serum or Plasma (test code = 1920-8) Alanine aminotransferase 25 IU/L 0-32 [Enzymatic activity/volume] in Serum or Plasma (test code = 1742-6) [facility] [Enzym[facility] activity/volume] in Serum or [id number] 00:00:00 Test Item Value Reference Range Interpretation Comments Lipase [Enzymatic activity/volume] in 32 U/L 14-72 Serum or Plasma (test code = 3040-3) [facility] Centerin[facility]enza virus A + B and SARS CoV 2 (COVID-19) and RSV RNA panel, OSCAR+probe, respiratory [id number] 20:23:00 Test Item Value Reference Range Interpretation Comments Influenza A (test code = Influenza negative A) Influenza B (test code = Influenza negative B) RSV (test code = RSV) negative Sars Cov 2 (test code = Sars Cov 2) positive [facility] WH 2021-03-13 16:58:00 Test Item Value Reference Range Interpretation Comments SARS-CoV (ANTIGEN) NEGATIVE NEGATIVE (test code = COVAG) COVID AG (test This test has been code = COVAGC) marketed under the FDA Emergency Use Authorization (EUA) to meet challenges of the COVID-19 pandemic. The validation standards normally enforced by the FDA and the [employer] the [place] [employer] (CAP) are more stringent than those required for this test. Therefore, the result should be interpreted with caution and close attention to other clinical and epidemiological data TROPONIN I OW2021-03-13 15:25:00 Test Item Value Reference Range Interpretation Comments TROPONIN I (test code = A84) <0.050 ng/mL 0.000-0.050 D-DIMER TRIAGE OW2021-03-13 15:22:00 Test Item Value Reference Range Interpretation Comments D-DIMER (test code <100 ng/mL D-DU See_Comment [Auto mated message] = GDDI) The system [employer] generated this result transmitted ref erence range: <=599. T he reference range was not used to int erpret this result as normal/abnormal . D-DIMER COMMENT *Level to rule (test code = out DVT or PE: DDCOM) <235 ng/mL D-DU* BRAIN NATRIURETIC PEPTIDE OW2021-03-13 15:18:00 Test Item Value Reference Range Interpretation Comments BNP (test code = 14 pg/mL See_Comment [Automated message] The OBNP) system which ge nerated this result tra nsmitted reference range : <=100. The reference r quynh was not used to int erpret this result as aleks l/abnormal. MetyLyte 8 Panel *OW* [id number] 15:13:00 Test Item Value Reference Range Interpretation Comments GLUCOSE (test code = GGUL) 105 mg/dL 73-118 BUN (test code = GBUN) 14 mg/dL 7-22 CREATININE (test code = GCRE) 0.5 mg/dL 0.6-1.2 L CK TOTAL (test code = GCK) 192 U/L 30-190 H SODIUM (test code = GNA+) 144 mmol/L 128-145 POTASSIUM (test code = GK+) 3.8 mmol/L 3.6-5.1 CHLORIDE (test code = GCL-) 111 mmol/L 98-108 H TCO2 (test code = GTC02) 28 mmol/L 18-33 CBC (INCLUDES AUTOMATED DIFFERENTIAL) *2021-03-13 15:04:00 Test Item Value Reference Range Interpretation Comments WBC (test code = WBC) 10.7 10\\S\\3/uL 4.5-11.0 RBC (test code = RBC) 4.56 10\\S\\6/uL 4.20-5.60 HGB (test code = HBG) 13.3 g/dL 12.0-15.5 HCT (test code = HCT) 40.4 % 35.0-44.0 MCV (test code = MCV) 88.6 fL 81.0-99.0 MCH (test code = MCH) 29.2 pg 27.0-31.0 MCHC (test code = MCHC) 32.9 g/dL 32.0-36.0 RDW (test code = RDW) 14.5 % 11.5-14.5 PLT (test code = PLT) 203 10\\S\\3/uL 130-400 MPV (test code = OMPV) 9.0 fL 6.2-10.2 NEUTROP # (test code = NE#) 6.9 10\\S\\3/uL 1.6-8.0 LYMPH # (test code = LY#) 3.0 10\\S\\3/uL 1.1-3.5 MID # (test code = GMID#) 0.8 10\\S\\3/uL 0.0-1.1 GRAN % (test code = GRA%) 64.3 % 35.0-73.0 LYMPH % (test code = GLY%) 27.9 % 20.0-55.0 MID % (test code = GMID%) 7.8 % 0.0-10.0 XR CHEST 1 VIEW PORTABLE *OW*2021-03-13 14:51:38 [facility] MELA SOTOMAYOR : 1970 Sex: FCHEST, FRONTAL VIEW HISTORY: cough sobCOMPARISON: None.FINDINGS: The lungs are clear without consolidation. No pleural effusion or pneumothorax. The heart size is normal. The bones are unremarkable.IMPRESSION:No evidence of acute cardiopulmonary disease.Electronically signed by: Arben Dow MD 03/13/2021 2:51 PM CDT [id number] 10:20:00 Test Item Value Reference Range Interpretation Comments Culture Observations NO BETA HEMOLYTIC (test code = COB1) STREPTOCOCCUS ISOLATED DRUGS OF ABUSE*OW*2020-07-16 18:08:00 Test Item Value Reference Range Interpretation Comments DRUG SCRN (test code URINE DRUG SCREEN = HDOA) This is an unconfirmed screening result and should not be used for non-medical purposes PHENCYCLID (test Negative NEGATIVE code = GPCP) BENZODIAZE (test Negative NEGATIVE code = GBZO) COCAINE (test code = Negative NEGATIVE GCOC) AMPHETAMIN (test Negative NEGATIVE code = GAMP) THC (test code = Negative NEGATIVE GTHC) OPIATES (test code = Negative NEGATIVE JI) BARBITURAT (test Negative NEGATIVE code = GBAR) TCA (test code = Negative NEGATIVE GTCA) DOAH (test code = URINE DRUG DOAH) SCREEN CUT OFF VALUES Amphetamines 1000 ng/mL Barbituates 300 ng/mL Benzodiazepines 300 ng/mL Cocaine 300 ng/mL Opiates 300 ng/mL Phencyclidine 25 ng/mL THC 50 ng/mL Tricyclic Antidepressants 1000 ng/mL URINALYSIS W/O MICROSCOPICOW2020-07-16 18:03:00 Test Item Value Reference Range Interpretation Comments COLOR (test code = Yellow YELLOW COLU) CLARITY (test code = Clear CLEAR CLA) GLUCOSE UR (test Negative NEGATIVE code = UA GLUCOSE) BILI UR (test code = Negative NEGATIVE BILE) KETONES UR (test Negative NEGATIVE code = KYM) SP GRAVITY (test 1.010 1.005-1.030 code = SPGR) PH UR (test code = 6.0 4.5-8.0 PH) PROTEIN UR (test Negative NEGATIVE code = PU) NITRITE UR (test Negative NEGATIVE code = NITRITE) UROBIL UR (test code 0.2 E.U./dL = GUROQ) UROBIL UR (test code UROBILINOGEN = GUROQC) REFERENCE RANGE 0.2 - 1.0 EU/dL BLOOD UR (test code Negative NEGATIVE = UA BLOOD) LEUK ES UR (test Negative NEGATIVE code = LEUK) SARS-CoV (RAPID ANTIGEN) WH2020-07-16 18:00:00 Test Item Value Reference Range Interpretation Comments SARS-CoV (ANTIGEN) NEGATIVE NEGATIVE (test code = COVAG) COVID AG (test This test has been code = COVAGC) marketed under the FDA Emergency Use Authorization (EUA) to meet challenges of the COVID-19 pandemic. The validation standards normally enforced by the FDA and the [employer] the [place] [employer] (CAP) are more stringent than those required for this test. Therefore, the result should be interpreted with caution and close attention to other clinical and epidemiological data INFLUENZA A AND B OW2020-07-16 16:10:00 Test Item Value Reference Range Interpretation Comments INFLUENZ A (test code = INFA) NEGATIVE NEGATIVE INFLUENZ B (test code = INFB) NEGATIVE NEGATIVE METLAC 12 PANEL *OW* [id number] 16:06:00 Test Item Value Reference Range Interpretation Comments ALBUMIN (test code = GALB) 3.8 g/dL 3.5-5.5 GLUCOSE (test code = GGUL) 96 mg/dL 73-118 CREATININE (test code = GCRE) 0.4 mg/dL 0.6-1.2 L BUN (test code = GBUN) 10 mg/dL 7-22 CALCIUM (test code = GCL+) 9.8 mg/dL 8.0-10.3 SODIUM (test code = GNA+) 146 mmol/L 128-145 H POTASSIUM (test code = GK+) 4.0 mmol/L 3.6-5.1 CHLORIDE (test code = GCL-) 105 mmol/L 98-108 TCO2 (test code = GTC02) 31 mmol/L 18-33 MAGNESIUM (test code = GMG+) 2.1 mg/dL 1.6-2.3 LACTATE (test code = STEVE) 1.19 mmol/L 0.53-2.10 PHOSPHORUS (test code = OPHOS) 4.0 mg/dL 2.2-4.1 MetyLyte 8 Panel *OW* [id number] 16:02:00 Test Item Value Reference Range Interpretation Comments GLUCOSE (test code = GGUL) 93 mg/dL 73-118 BUN (test code = GBUN) 9 mg/dL 7-22 CREATININE (test code = GCRE) 0.5 mg/dL 0.6-1.2 L CK TOTAL (test code = GCK) 118 U/L 30-190 SODIUM (test code = GNA+) 146 mmol/L 128-145 H POTASSIUM (test code = GK+) 3.7 mmol/L 3.6-5.1 CHLORIDE (test code = GCL-) 108 mmol/L 98-108 TCO2 (test code = GTC02) 30 mmol/L 18-33 GENERAL CHEMISTRY 13 *OW* [id number] 15:51:00 Test Item Value Reference Range Interpretation Comments GLUCOSE (test code = GGUL) 94 mg/dL 73-118 BUN (test code = GBUN) 9 mg/dL 7-22 CREATININE (test code = GCRE) 0.6 mg/dL 0.6-1.2 URIC ACID (test code = GUA) 3.8 mg/dL 2.2-6.6 CALCIUM (test code = GCL+) 9.8 mg/dL 8.0-10.3 ALBUMIN (test code = GALB) 3.9 g/dL 3.5-5.5 PROTEIN (test code = GTP) 8.0 g/dL 6.4-8.1 ALT (test code = GALT) 68 U/L 10-47 H AST (test code = FORTUNATO) 52 U/L 11-38 H ALK PHOS (test code = GALP) 90 U/L 42-141 BILI TOTAL (test code = GTBIL) 0.7 mg/dL 0.2-1.6 GGT (test code = GGGT) 82 U/L 5-65 H AMYLASE (test code = GAMY) 49 U/L 14-97 D-DIMER TRIAGE OW2020-07-16 15:51:00 Test Item Value Reference Range Interpretation Comments D-DIMER (test code = 150 ng/mL D-DU <=599 GDDI) D-DIMER COMMENT (test *Level to rule out code = DDCOM) DVT or PE: <235 ng/mL D-DU* BRAIN NATRIURETIC PEPTIDE OW2020-07-16 15:50:00 Test Item Value Reference Range Interpretation Comments BNP (test code = OBNP) 9 pg/mL <=100 TROPONIN I OW2020-07-16 15:50:00 Test Item Value Reference Range Interpretation Comments TROPONIN I (test code = A84) <0.050 ng/mL 0.000-0.050 CBC (INCLUDES AUTOMATED DIFFERENTIAL) *2020-07-16 15:29:00 Test Item Value Reference Range Interpretation Comments WBC (test code = WBC) 7.7 10\\S\\3/uL 4.5-11.0 RBC (test code = RBC) 4.80 10\\S\\6/uL 4.20-5.60 HGB (test code = HBG) 13.6 g/dL 12.0-15.5 HCT (test code = HCT) 41.8 % 35.0-44.0 MCV (test code = MCV) 87.0 fL 81.0-99.0 MCH (test code = MCH) 28.3 pg 27.0-31.0 MCHC (test code = MCHC) 32.5 g/dL 32.0-36.0 RDW (test code = RDW) 14.4 % 11.5-14.5 PLT (test code = PLT) 301 10\\S\\3/uL 130-400 MPV (test code = OMPV) 9.1 fL 6.2-10.2 NEUTROP # (test code = NE#) 4.8 10\\S\\3/uL 1.6-8.0 LYMPH # (test code = LY#) 2.4 10\\S\\3/uL 1.1-3.5 MID # (test code = GMID#) 0.5 10\\S\\3/uL 0.0-1.1 GRAN % (test code = GRA%) 62.2 % 35.0-73.0 LYMPH % (test code = GLY%) 31.1 % 20.0-55.0 MID % (test code = GMID%) 6.7 % 0.0-10.0 Comprehensive metabolic 2000 panel - Serum or [id number] 00:00:00 Test Item Value Reference Range Interpretation Comments glucose (test code = glucose) 102 mg/dL 70-99 H BUN (test code = BUN) 17 mg/dL 6-20 creatinine (test code = 0.68 mg/dL 0.60-1.30 creatinine) eGFR amer. (test code 117 mL/min/1.73 >60 = eGFR amer.) eGFR non- amer. (test 101 mL/min/1.73 >60 code = eGFR non- amer.) calc BUN/creat (test code = 25 ratio 6-28 calc BUN/creat) sodium (test code = sodium) 146 mEq/L 133-146 potassium (test code = 3.8 mEq/L 3.5-5.4 potassium) chloride (test code = 109 mEq/L 95-107 H chloride) carbon dioxide (test code = 28 mEq/L 19-31 carbon dioxide) calcium (test code = calcium) 9.9 mg/dL 8.5-10.5 protein, total (test code = 8.0 g/dL 6.1-8.3 protein, total) albumin (test code = albumin) 4.7 g/dL 3.5-5.2 calc globulin (test code = 3.3 g/dL 1.9-3.7 calc globulin) calc A/G ratio (test code = 1.4 ratio 1.0-2.6 calc A/G ratio) bilirubin, total (test code = 0.3 mg/dL <=1.2 bilirubin, total) alkaline phosphatase (test 117 U/L 40-130 code = alkaline phosphatase) AST (test code = AST) 49 U/L 9-40 H ALT (test code = ALT) 83 U/L 5-40 H [facility] ProgramMicroalbumin/Creatinine [Mass Ratio] in [id number] 00:00:00 Test Item Value Reference Range Interpretation Comments creatinine, urine, conc. (test 171.3 mg/dL not estab code = creatinine, urine, conc.) albumin, urine, random (test code 1.2 mg/dL = albumin, urine, random) calc albumin/creat, rnd (test 7 mg/g <30 code = calc albumin/creat, rnd) [facility] - Blood 2020-05-12 00:00:00 Test Item Value Reference Range Interpretation Comments WBC (test code = WBC) 8.9 K/uL 3.5-10.0 RBC (test code = RBC) 4.66 M/uL 3.80-5.20 hemoglobin (test code = hemoglobin) 13.4 g/dL 12.0-16.0 hematocrit (test code = hematocrit) 39.3 % 35.0-46.0 MCV (test code = MCV) 84.3 fL 80.0-99.0 MCH (test code = MCH) 28.8 pg 25.0-34.0 MCHC (test code = MCHC) 34.1 g/dL 31.0-36.0 RDW (test code = RDW) 14.0 % 11.5-15.0 neutrophils (test code = 62.8 % 40.0-75.0 neutrophils) lymphocytes (test code = 26.5 % 20.0-45.0 lymphocytes) monocytes (test code = monocytes) 8.8 % 4.0-12.0 eosinophils (test code = 1.2 % 0.0-7.0 eosinophils) basophils (test code = basophils) 0.7 % 0.0-2.0 platelet count (test code = 245 K/uL 130-400 platelet count) [facility] CenterThyrotropin [Units/volume] in Serum or [id number] 00:00:00 Test Item Value Reference Range Interpretation Comments TSH reflex to free T4 (test code 1.040 uIU/mL 0.400-4.100 = TSH reflex to free T4) [facility] Center[facility] 1996 panel - Serum or Plasma 2020-05-12 00:00:00 Test Item Value Reference Range Interpretation Comments cholesterol (test code = 228 mg/dL <200 H cholesterol) triglycerides (test code = 138 mg/dL <150 triglycerides) HDL cholesterol (test code = HDL 55 mg/dL >39 cholesterol) Cholesterol in LDL [Mass/volume] 146 mg/dL <100 H in Serum or Plasma (test code = 2089-1) risk ratio LDL/HDL (test code = 2.65 ratio <3.22 risk ratio LDL/HDL) [facility] CenterURINALYSIS W/O MICROSCOPICOW 2020-05-01 15:38:00 Test Item Value Reference Range Interpretation Comments COLOR (test code = Yellow YELLOW COLU) CLARITY (test code = Clear CLEAR CLA) GLUCOSE UR (test Negative NEGATIVE code = UA GLUCOSE) BILI UR (test code = Negative NEGATIVE BILE) KETONES UR (test Negative NEGATIVE code = KYM) SP GRAVITY (test 1.025 1.005-1.030 code = SPGR) PH UR (test code = 5.5 4.5-8.0 PH) PROTEIN UR (test Negative NEGATIVE code = PU) NITRITE UR (test Negative NEGATIVE code = NITRITE) UROBIL UR (test code 0.2 E.U./dL = GUROQ) UROBIL UR (test code UROBILINOGEN = GUROQC) REFERENCE RANGE 0.2 - 1.0 EU/dL BLOOD UR (test code Negative NEGATIVE = UA BLOOD) LEUK ES UR (test Negative NEGATIVE code = LEUK) MAMMOGRAM SCREENING CAD INC [id number] 09:11:15Addendum:Comparison is made to outside exam dated 04/17/18. The breast parenchymademonstrates scattered fibroglandular elements without change. No developingmass or clustered microcalcifications.Impression:1. ACR BI-RADS 2, benign findings.Recommendations: Routine yearly mammographic follow-up.SCR MAMM BILATERAL CAD [id number] 11:12:20 - SCR MAMM BILATERAL CAD DIGITALBILATERAL DIGITAL SCREENING MAMMOGRAM WITH CAD: 04/17/2018CLINICAL: Asymptomatic. Current mammographic images were evaluated by either a [employer] M-Vu or a [employer] CAD (computer aided detection system). Several unsuccessful attempts were made to obtain the prior comparison examinations. Therefore, no comparison examinations are available for review at the time of dictation. The tissue of both breasts is heterogeneously dense. This may lower the sensitivityof mammography. Shunt catheter overlying the medial right breast somewhat limits evaluation. No suspicious mass, architectural distortion, malignant type calcification, or lymph node abnormality detected. IMPRESSION: NEGATIVEThere is no mammographic evidence of malignancy. Resume annual screening mammography in one year. SUMMARY:Prior examinations are needed for comparison. If priors become available, an addendum can be issued and the need for additional imaging will be reassessed. Kiel Fabian.Jimenez lópez/maki:05/07/2018 11:12:20 Gel Coat Sprayer: Elizabeth Del Angel, [facility]-RGletter sent: BIRADS 1-2 Normal Mammogram BI-RADS: 1 Negative
[2022-08-16 11:38] LABS: Absolute Lymphocytes (CBC) 1.4 K/uL (0.7-4.9); Hematocrit 36.8 % (36.0-45.0); Lymphocytes % 11.4 % (15.3-44.8); MPV 9.2 fL (7.6-11.3); RBC Red Blood Cell Count 4.48 M/uL (3.86-4.86)
[2022-08-16] MEDS ORDERED: VANCOMYCIN 1.75 GM in NA CHLORIDE 0.9% 500 ML IVPB ONE (12:00)
[2022-08-16 12:03] LABS: Albumin 3.5 g/dL (3.4-5.0); Bilirubin Total 0.6 mg/dL (0.2-1.0); Protein, Total 7.9 g/dL (6.4-8.2); Troponin High Sensitivity 3.9 pg/mL (<58.9)
--- NOTE | 2022-08-16 12:20 | RAD REPORT ---
EXAM DESCRIPTION: CT - Head Brain Wo Cont - 08/16/2022 12:03 pm CLINICAL HISTORY: l sided weakness COMPARISON: No comparisons TECHNIQUE: All CT scans are performed using dose optimization technique as appropriate and may inclu de automated exposure control or mA/KV adjustment according to patient size. FINDINGS: Right frontal lobe encephalomalacia. Absent or dysgenesis of the corpus callosum. No acute large vascular territory infarct.Hypoattenuation medially in the frontal lobes along the frontal hor ns of the lateral ventricles may be encephalomalacia. This is not well assessed. Hyperdensity noted i n the upper cervical canal that is of uncertain etiology. Bilateral subdural collections measuring 4 millimeters in maximal thickness. The paranasal sinuses and mastoids are clear. The calvarium is intact. IMPRESSION: 1. Right parietal approach ventriculostomy. No hydrocephalus. Nonspecific bilateral subd ural effusions noted. Correlation with outside imaging would be helpful. While this could be secondar y to over shunting, the lateral ventricles are still visible. 2. Hyperdensity at the upper cervical canal. This is of uncertain etiology. Consider dedicated CT of the neck or MRI to further evaluate.
[2022-08-16] MEDS ORDERED: CEFEPIME 2 GM VIAL ONE (12:43)
[2022-08-16] MEDS ORDERED: NA CHLORIDE 0.9% 100 ML ONE (12:43)
--- NOTE | 2022-08-16 13:41 | EDPHYS ---
Physician Documentation [facility] Name: Mela Carpio Age: 52 yrs Sex: Female : 1970 Arrival Date: 08/16/2022 Time: 10:51 Bed 6 Private MD: CAM Physician Andrew Torres HPI: 08/16 11:34 This 52 yrs old Female presents to ER via Wheelchair with complaints of Left rt side weakness. 11:34 Patient with history of non-Hodgkin lymphoma on chemotherapy presents to the ED with a rt left-sided numbness. Patient states that she has had a generalized numbness for some time has been pre-existing, however, she woke up with a worsening numbness on the left side only starting yesterday. The patient was seen at an outside ER, had lab work done with subsequently discharged. Patient states that the symptoms have persisted today and she has developed a left-sided weakness, also new. She states that she fell today without injury but was unable to get up. Denies other acute complaints at this time. Symptoms are moderate in severity, no other aggravating or alleviating factors.. 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 - Social history:: Smoking status: Patient denies any tobacco usage or history of. - Family history:: not pertinent. ROS: 11:34 Constitutional: Negative for fever, chills, and weight loss, Eyes: Negative for injury, rt pain, redness, and discharge, Cardiovascular: Negative for chest pain, palpitations, and edema, Respiratory: Negative for shortness of breath, cough, wheezing, and pleuritic chest pain, MS/Extremity: Negative for injury and deformity, Skin: Negative for injury, rash, and discoloration, Psych: Negative for depression, anxiety, suicide ideation, homicidal ideation, and hallucinations. 11:34 Abdomen/GI: Positive for nausea, Negative for abdominal pain, vomiting. 11:34 Neuro: Positive for tingling, weakness. Exam: 11:45 Constitutional: This is a well developed, well nourished patient who is awake, alert, rt and in no acute distress. Head/Face: Normocephalic, atraumatic. Chest/axilla: Normal chest wall appearance and motion. Nontender with no deformity. No lesions are appreciated. Cardiovascular: Regular rate and rhythm with a normal S1 and S2. No gallops, murmurs, or rubs. Normal PMI, no JVD. No pulse deficits. Respiratory: Lungs have equal breath sounds bilaterally, clear to auscultation and percussion. No rales, rhonchi or wheezes noted. No increased work of breathing, no retractions or nasal flaring. Abdomen/GI: Soft, non-tender, with normal bowel sounds. No distension or tympany. No guarding or rebound. No evidence of tenderness throughout. Skin: Warm, dry with normal turgor. Normal color with no rashes, no lesions, and no evidence of cellulitis. MS/ Extremity: Pulses equal, no cyanosis. Neurovascular intact. Full, normal range of motion. Psych: Awake, alert, with orientation to person, place and time. Behavior, mood, and affect are within normal limits. 11:45 ECG was reviewed by the Attending Physician. 11:45 Neuro: Current nerves II through XII intact, speech normal, 4/5 strength in left upper and left lower extremities, sensory deficits on the left extremities, strength and sensation intact on the right extremities.. 14:18 Radiologist reports: Bilateral subdural effusion rt Vital Signs: 10:56 BP 129 / 79; Pulse 81; Resp 16; Pulse Ox 99% on R/A; Weight 74.39 kg; Height 5 ft. 4 iw in. (162.56 cm); 11:39 BP 141 / 90; Pulse 71; Resp 16; Pulse Ox 97% on R/A; hb 12:48 BP 139 / 66; Pulse 64; Resp 22; Pulse Ox 96% on R/A; hb 14:28 BP 126 / 82; Pulse 66; Resp 16; Pulse Ox 99% on R/A; hb 15:39 BP 146 / 76; Pulse 69; Resp 21; Pulse Ox 100% on R/A; hb 16:00 BP 111 / 88; Pulse 71; Resp 16; Pulse Ox 99% on R/A; hb 10:56 Body Mass Index 28.15 (74.39 kg, 162.56 cm) iw MDM: 11:08 Patient medically screened. rt 14:16 Differential diagnosis: CVA, TIA, electrolyte abnormality, complication related to rt chemotherapy, spinal impingement. Data reviewed: vital signs, nurses notes, lab test result(s), EKG, radiologic studies. Consideration of Admission/Observation After discussion with neurology, patient to be transferred there is neurosurgical capabilities. Patient states that her surgery was done at [facility], request to be transferred to [facility] where her surgeon is.. Management of patient was discussed with the following: Statement Distribution Clerk: Discussed case with neurology, neurosurgery at [facility] as well as neurology locally.. I considered the following discharge prescriptions or medication management in the emergency department Medications were administered in the Emergency Department. See MAR. Independent interpretation of the following test(s) in the Emergency Department CT Scan: My interpretation is Small subdural effusions identified on CT scan images. Test considered but Not performed: MRI: Patient has programmable shunt, MRI should be obtained where the shunt can be reprogrammed. Care significantly affected by the following chronic conditions: Non-Hodgkin's lymphoma, hydrocephalus. Counseling: I had a detailed discussion with the patient and/or guardian regarding: the historical points, exam findings, and any diagnostic results supporting the discharge/admit diagnosis, lab results, radiology results, the need to transfer to another facility, for higher level of care, [facility] does not immediately have the required specialist. 08/16 11:22 Order name: CBC with Automated Diff; Complete Time: 12:09 EDMS 08/16 11:22 Order name: Comprehensive Metabolic Panel; Complete Time: 12:09 EDMS 08/16 11:22 Order name: Troponin High Sensitivity; Complete Time: 12:09 EDMS 08/16 11:18 Order name: CT Head Brain wo Cont; Complete Time: 12:22 rt 08/16 13:03 Order name: SARS RAPID; Complete Time: 14:09 rt 08/16 11:18 Order name: EKG; Complete Time: 11:45 rt 08/16 11:18 Order name: EKG - Nurse/Tech; Complete Time: 11:39 rt 08/16 11:22 Order name: EKG Electrocardiogram; Complete Time: 11:43 EDMS EC:45 Rate is 68 beats/min. Rhythm is regular, Normal Sinus Rhythm with No ectopy. QRS [place] rt is Normal. [place] interval is normal. QRS interval is normal. QT interval is normal. Clinical impression: NSR w/ Non-specific ST/T Changes. Administered Medications: 12:48 Drug: Cefepime 2 grams Route: IVPB; Rate: 200 ml/hr; Infused Over: 30 mins; Site: right hb forearm; 13:30 Follow up: Response: No adverse reaction; IV Status: Completed infusion; IV Intake: hb 100ml 13:51 Drug: vancoMYCIN 15 mg/kg Route: IVPB; Site: right forearm; hb 14:28 Drug: Potassium Chloride 40 mEq Route: IV; Rate: calculated rate; Site: left forearm; hb 14:28 Drug: NS 0.9% 1000 ml Route: IV; Rate: bolus; Site: right forearm; hb Disposition Summary: 08/16/22 13:40 Transfer Ordered Transfer Location: [facility]-System rt Reason: Higher level of care rt Condition: Stable rt Problem: new rt Symptoms: are unchanged rt Accepting Physician: Jose(08/16/22 16:10) hb Diagnosis - Bilateral subdural effusions rt - Left-sided weakness rt - Left-sided numbness rt Forms: - Medication Reconciliation Form rt - SBAR form rt Signatures: Dispatcher [employer] EDKarina Oliveros RN RN Bailey Nj RN RN Andrew Torres MD MD rt Corrections: (The following items were deleted from the chart) 11:48 11:22 Head Brain Wo Cont ordered. EDMS EDMS 14:14 13:40 . rt rt 15:13 11:44 CBC+H.LAB.BRZ ordered. EDMS EDMS 15:13 11:44 COMPREHENSIVE METABOLIC PANEL+C.LAB.BRZ ordered. EDMS EDMS 15:13 11:44 Troponin High Sensitivity+C.LAB.BRZ ordered. EDMS EDMS 16:10 14:14 Cram rt hb
--- NOTE | 2022-08-16 13:41 | ER ---
Nurse's Notes [facility] Name: Mela Carpio Age: 52 yrs Sex: Female : 1970 Arrival Date: 08/16/2022 Time: 10:51 Bed 6 Private MD: Diagnosis: Bilateral subdural effusions;Left-sided weakness;Left-sided numbness Presentation: 08/16 10:56 Chief complaint: Patient states: this morning when I got up to go to the bathroom I iw fell, I struggle with the left side of my body, it feels numb , was seen at [place] [facility] yesterday for the numbness, she feels numbness in right arm also, she was unable to get herself off the floor this morning, did not injure herself in fall, did not hit head, she had chemo on Friday , has Non Hodgkins lymphoma, is seen by Dr. Gonzalez. Coronavirus screen: At this time, the client does not indicate any symptoms associated with coronavirus-19. Ebola Screen: Patient negative for fever greater than or equal to 101.5 degrees Fahrenheit, and additional compatible Ebola Virus Disease symptoms Patient denies exposure to infectious person. Patient denies travel to an Ebola-affected area in the 21 days before illness onset. No symptoms or risks identified at this time. Initial Sepsis Screen: Does the patient meet any 2 criteria? No. Patient's initial sepsis screen is negative. Does the patient have a suspected source of infection? No. Patient's initial sepsis screen is negative. Risk Assessment: Do you want to hurt yourself or someone else? Patient reports no desire to harm self or others. Onset of symptoms was August 15, 2022. 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 - Social history:: Smoking status: Patient denies any tobacco usage or history of. - Family history:: not pertinent. Screenin:39 [facility] ED Fall Risk Assessment (Adult) Score/Fall Risk Level 0 - 2 = Low Risk hb Oriented to surroundings, Maintained a safe environment, Educated pt \T\ family on fall prevention, incl call for assistance when getting out of bed. Abuse screen: Denies threats or abuse. Denies injuries from another. Nutritional screening: No deficits noted. Tuberculosis screening: No symptoms or risk factors identified. Assessment: 11:38 General: Appears in no apparent distress. Behavior is calm, cooperative. Pain: Pain hb currently is 4 out of 10 on a pain scale. Neuro: Level of Consciousness is awake, alert, obeys commands, Oriented to person, place, time, situation, Reports paresthesias left arm. Cardiovascular: Patient's skin is warm and dry. Respiratory: Respiratory effort is even, unlabored, Respiratory pattern is regular, symmetrical. GI: No signs and/or symptoms were reported involving the gastrointestinal system. : No signs and/or symptoms were reported regarding the genitourinary system. EENT: No signs and/or symptoms were reported regarding the EENT system. Derm: Skin is pink, warm \T\ dry. Musculoskeletal: No signs and/or symptoms reported regarding the musculoskeletal system. 12:48 Reassessment: Patient appears in no apparent distress at this time. Patient and/or hb family updated on plan of care and expected duration. Pain level reassessed. Patient is alert, oriented x 3, equal unlabored respirations, skin warm/dry/pink. 13:52 Reassessment: Patient appears in no apparent distress at this time. Patient and/or hb family updated on plan of care and expected duration. Pain level reassessed. Patient is alert, oriented x 3, equal unlabored respirations, skin warm/dry/pink. 14:30 Reassessment: Attempted to call report to [facility] Roberta, nurse to return call. hb 14:54 Reassessment: Patient appears in no apparent distress at this time. Patient and/or hb family updated on plan of care and expected duration. Pain level reassessed. Patient is alert, oriented x 3, equal unlabored respirations, skin warm/dry/pink. 15:32 Reassessment: Attempted to call report, company secretary states nurse can not take report hb until isolation room is clean per policy. Charge nurse Karina PERKINS notified. 15:39 Reassessment: Patient appears in no apparent distress at this time. Patient and/or hb family updated on plan of care and expected duration. Pain level reassessed. Patient is alert, oriented x 3, equal unlabored respirations, skin warm/dry/pink. 16:00 Reassessment: Patient appears in no apparent distress at this time. Patient and/or hb family updated on plan of care and expected duration. Pain level reassessed. Patient is alert, oriented x 3, equal unlabored respirations, skin warm/dry/pink. Vital Signs: 10:56 BP 129 / 79; Pulse 81; Resp 16; Pulse Ox 99% on R/A; Weight 74.39 kg; Height 5 ft. 4 iw in. (162.56 cm); 11:39 BP 141 / 90; Pulse 71; Resp 16; Pulse Ox 97% on R/A; hb 12:48 BP 139 / 66; Pulse 64; Resp 22; Pulse Ox 96% on R/A; hb 14:28 BP 126 / 82; Pulse 66; Resp 16; Pulse Ox 99% on R/A; hb 15:39 BP 146 / 76; Pulse 69; Resp 21; Pulse Ox 100% on R/A; hb 16:00 BP 111 / 88; Pulse 71; Resp 16; Pulse Ox 99% on R/A; hb 10:56 Body Mass Index 28.15 (74.39 kg, 162.56 cm) iw ED Course: 10:51 Patient arrived in ED. mr 11:00 Triage completed. iw 11:04 Arm band placed on. iw 11:08 Andrew Torres MD is Attending Physician. rt 11:19 Bailey Nj, RN is Primary Nurse. hb 11:28 Inserted saline lock: 22 gauge in right forearm, using aseptic technique. Blood hb collected. 11:39 Patient has correct armband on for positive identification. hb 11:43 Bed in low position. Call light in reach. Side rails up X2. Adult w/ patient. Warm mm9 blanket given. Client placed on continuous cardiac and pulse oximetry monitoring. NIBP monitoring applied. post office markup clerk on. Pulse ox on. NIBP on. 12:03 CT Head Brain wo Cont In Process Unspecified. EDMS 13:14 initiated a transfer with Savanah from the [facility] transfer Center at the request of the patient/ her surgery team is there. 13:46 connected the neurosurgeon communication coordinator for [facility] with Dr. Torres for patient eb transfer consultation. 14:05 connected the neurosurgeon communication coordinator for [facility] with Dr. Torres for patient eb transfer consultation. 14:13 administrative approval given by Savanah Glover Rn / patient has been accepted to [address]/ Dr. Carlos Garcia has accepted the patient in transfer/ report to be called to [phone]. 16:00 No provider procedures requiring assistance completed. Patient transferred, IV remains hb in place. Administered Medications: 12:48 Drug: Cefepime 2 grams Route: IVPB; Rate: 200 ml/hr; Infused Over: 30 mins; Site: right hb forearm; 13:30 Follow up: Response: No adverse reaction; IV Status: Completed infusion; IV Intake: hb 100ml 13:51 Drug: vancoMYCIN 15 mg/kg Route: IVPB; Site: right forearm; hb 14:28 Drug: Potassium Chloride 40 mEq Route: IV; Rate: calculated rate; Site: left forearm; hb 14:28 Drug: NS 0.9% 1000 ml Route: IV; Rate: bolus; Site: right forearm; hb Medication: 16:01 VIS not applicable for this client. hb Intake: 13:30 IV: 100ml; Total: 100ml. hb Outcome: 13:40 ER care complete, transfer ordered by . rt 16:00 Transferred by ground EMS to [facility]. hb 16:00 Condition: stable 16:00 Instructed on the need for transfer, Demonstrated understanding of instructions. 16:10 Patient left the ED. hb Signatures: Dispatcher [employer] Mela Jasmine Irene, GREGORIO PERKINS Bailey Nj RN RN Angie Mendoza Maria mm9 Andrew Torres MD MD rt
[2022-08-16 13:58] LABS: SARS-CoV-2 Antigen Rapid Res Negative (Negative)
[2022-08-16] MEDS ORDERED: KCL 20 MEQ/100 mL IVPB 100 ML IV ONE (14:22)
[2022-08-16] MEDS ORDERED: NA CHLORIDE 0.9% 1,000 ML ONE (14:22)
[2022-08-16 17:27] VITALS: BP 111/88; O2SAT 99
[2022-08-17] MEDS ORDERED: VANCOMYCIN 1.25 GM in NA CHLORIDE 0.9% 250 ML IVPB SCH (06:00)
--- NOTE | 2022-08-19 12:46 | EKG ---
Test Date: 2022-08-16 Test Time: 11:40:23 Slab Inspector: ESTEFANY MEASUREMENT RESULTS: Intervals: Rate: 68 IN: 146 QRSD: 88 QT: 350 QTc: 372 [place]: P: 63 IN: 146 QRS: -8 T: 65 INTERPRETIVE STATEMENTS: Normal sinus rhythm Minimal voltage criteria for LVH, may be normal variant Nonspecific T wave abnormality Abnormal ECG No previous ECG available for comparison Electronically Signed On 08-19-22 12:38:32 COMPLEX CARE NURSE PRACTITIONER by Heath Freedman
== END 2022-08-16 16:10 | disposition short-term general hospital (02) ==
LOC: ER 10:48
DX: I62.00 Nontraumatic subdural hemorrhage, unspecified (principal); R53.1 Weakness; R20.0 Anesthesia of skin; Z85.72 Personal history of non-Hodgkin lymphomas; Z98.2 Presence of cerebrospinal fluid drainage device; Z20.822 Contact with and (suspected) exposure to COVID-19; Z88.5 Allergy status to narcotic agent
CPT/HCPCS: 85025; 36415; 84484; 80053; 70450; 99285; 87811; J3480; J3370; J0692; J7040; J7030; 93005

== ENCOUNTER 2022-10-30 12:33 | Inpatient (IN) | payer BC ==
[2022-10-30 12:56] LABS: Hematocrit 34.7 % (36.0-45.0); MCV 85.5 fL (80-100); RBC Red Blood Cell Count 4.05 M/uL (3.86-4.86)
[2022-10-30 12:57] LABS: Absolute Lymphocytes (CBC) 4.2 K/uL (0.7-4.9); Lymphocytes % 60.6 % (15.3-44.8); MPV 8.8 fL (7.6-11.3)
[2022-10-30] MEDS ORDERED: NA CHLORIDE 0.9% 1,000 ML ONE (12:59)
[2022-10-30 13:00] LABS: Protime INR 1.11
[2022-10-30 13:23] LABS: Albumin 3.1 g/dL (3.4-5.0); Bilirubin Direct 0.1 mg/dL (0-0.2); Bilirubin Total 0.4 mg/dL (0.2-1.0); Magnesium 2.3 mg/dL (1.6-2.4); Potassium 3.9 mEq/L (3.5-5.1); Protein, Total 7.9 g/dL (6.4-8.2); Thyroid Stimulating Hormone 1.88 uIU/mL (0.358-3.740); Troponin High Sensitivity 5.1 pg/mL (<58.9)
[2022-10-30] MEDS ORDERED: FAMOTIDINE 20 MG/2 ML VIAL IV ONE (13:25)
[2022-10-30] MEDS ORDERED: HEPARIN 5000 UNIT/ML 1 ML VIAL ONE (13:25)
[2022-10-30 13:28] LABS: SARS-CoV-2 Antigen Rapid Res Negative (Negative)
--- OUTSIDE RECORDS SUMMARY | 2022-10-30 13:29 | XMS REPORT | Continuity of Care Document ---
:1970 Author Organization [facility] t Address [address] [facility] [address] [place] [address] Care Team Providers Name Role Phone NONE, NONE Primary Care Physician Unavailable DAYDAY WRIGHT Attending Clinician Unavailable JUSTINO ARMENDARIZ Attending Clinician Unavailable VEE BRITT Attending Clinician Unavailable JUSTINO PATEL Attending Clinician Unavailable ERIC MIRANDA Attending Clinician Unavailable ERIC MIRANDA Attending Clinician Unavailable ANGE ROJAS Attending Clinician Unavailable Eric Miranda MD Attending Clinician DR IVAN AMBROCIO Attending Clinician Unavailable Lavon Attending Clinician Unavailable Justino Armendariz MD Attending Clinician Doctor Unassigned, [place] Attending Clinician Unavailable Lorena Blanton Attending Clinician Unavailable JUJU MEANS Attending Clinician Unavailable Draw, [facility] Attending Clinician Unavailable Adriana DOMINGUEZ, Dayday Attending Clinician Virginie Guadarrama LVN Attending Clinician MARCIN SOARES Attending Clinician Unavailable Sabine Marshall MD Attending Clinician Amalia Akins MD Attending Clinician Marcin Soares MD Attending Clinician Arely Singh MD Attending Clinician ALBERT ROSARIO Attending Clinician Unavailable WILLIAM BUSBY Attending Clinician Unavailable HEIDI RENDON Attending Clinician Unavailable LUIS HUANG Attending Clinician Unavailable Luis Huang MD Attending Clinician MELA DHALIWAL Attending Clinician Unavailable Mela Dhaliwal Attending Clinician Melina Monroe Attending Clinician [phone] MELA OLVERA Attending Clinician Unavailable DR NILSA MUNOZ Attending Clinician Unavailable SANJAY GÓMEZ Attending Clinician Unavailable Sanjay Hobson Attending Clinician AYALA AGUILAR Attending Clinician Unavailable Only, Adc Test Attending Clinician Unavailable Shahrzad Attending Clinician Unavailable PEDRO LEACH Attending Clinician Unavailable AMBREENLATOYA Attending Clinician Unavailable Nia Attending Clinician Unavailable DR MARICRUZ LUNDBERG Attending Clinician Unavailable Estrellita Espinosa OD Attending Clinician ESTRELLITA ESPINOSA Attending Clinician Unavailable DR PATRICK MILAN Attending Clinician Unavailable Amber Attending Clinician Unavailable DR NAVA ESTEVEZ Attending Clinician Unavailable MARCIA DICKENS Attending Clinician Unavailable SELVNI SARMIENTO Attending Clinician Unavailable SIMONE ROMO Attending Clinician Unavailable AG WARREN Attending Clinician Unavailable DR IVAN AMBROCIO Admitting Clinician Unavailable Lavon Admitting Clinician Unavailable AMALIA AKINS Admitting Clinician Unavailable Amalia Akins MD Admitting Clinician LUIS HUANG Admitting Clinician Unavailable ANAYELI ISLAS Admitting Clinician Unavailable Anayeli Islas Admitting Clinician Melina Monroe Admitting Clinician DR MELA OLVERA Admitting Clinician Unavailable TAMMY, DR ASH Admitting Clinician Unavailable SANJAY GÓMEZ Admitting Clinician Unavailable JUSTINO ARMENDARIZ Admitting Clinician Unavailable Justino Armendariz MD Admitting Clinician Shahrzad Admitting Clinician Unavailable MARIA TERESA Admitting Clinician Unavailable Nia Admitting Clinician Unavailable DR MARICRUZ LUNDBERG Admitting Clinician Unavailable DR PATRICK MILAN Admitting Clinician Unavailable Amber Admitting Clinician Unavailable DR NAVA ESTEVEZ Admitting Clinician Unavailable MARCIA DICKENS Admitting Clinician Unavailable AG WARREN Admitting Clinician Unavailable Payers Payer Name Policy Type Policy Number Effective Date Expiration Date S ource HIM BCBS BLUE [id number] 2022 ADVANTAGE O 00:00:00 [facility] [id number] 2022 00:00:[place] [id number] 2022 ADVANTAGE (HMO) 00:00:00 [facility] [id number] 2022 [place] 00:00[place]00 (MED[place] [id number] (PPO[place] Problems Condition Condition Condition Status Onset Resolution Last Treating Co mments Source Name Details Category Date Date Treatment Clinician Date Screening Screening Problem Active [facility] for for - da malignant 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 breast of [facility] Screening Screening Problem Active [facility] [place] for for 4- da malignant 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 of Cervix [facility] Screening Screening Problem Active [facility] [place] for for 4-04 da malignant 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 colon of Colon [facility] Obstructiv Obstructiv Problem Active M [facility] e e 3-20 da hydrocepha Hydrocepha 00:00: Ep iscop janet janet 00 al [facility] Anemia Anemia Problem Active [facility] 3-02 da 00:[facility]: [facility] Pain due Pain Due Problem Active [place] [facility] to to 3-02 da neoplastic Neoplastic 00:00: Ep iscop disease Disease 00 al [facility] Classical Classical Problem Active [facility]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 00:00: Ep[facility] p 00 [facility] Weight Weight Problem Active [place] loss Loss 3-02 da 00:00: [facility] Left Left Problem Active [facility] hemiparesi Hemiparesi 2-27 da s s 00:00: [facility] Cerebrovas Cerebrovas Problem Active [facility] cular cular 2-27 da accident Accident 00:00: Ep[facility] p [facility] Stroke Stroke Disease Active Univers 2-19 ity of 00:00: [place] 00 Medical Branch Subdural Subdural Disease Active Unive rs effusion effusion 2-17 ity of 00:00: [place] 00 Medical Branch MEDIASTINA MEDIASTIN Diagnosis Active 2021-062022-05-03 Memoria L MASS AL MASS 0-12 21:48:00 l Active 00:00: [place] 04/10/[address] 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 Added automatic ally from request for surgery [id number] Hyperlipid Hyperlipid Problem Active 2019-06 M [facility] emia emia 112 da 00:00: [facility] Benign Benign Problem Active 2019-06 [place] essential Essential 112 da hypertensi Hypertensi 00:00: Ep iscop on on al [facility] Low back Low Back Problem Active 2019-06 [place] pain Pain 112 da 00:00: [facility] Right side Right Side Problem Active 2019-06 M [facility] sciatica Sciatica 12 da 00:00: [facility] 00 [facility] Subdural Subdural Disease Active Unive rs fluid fluid 6-06 ity of collection collection 00:00: [place] [facility] Branch Dysphagia, Dysphagia, Disease Active 2016-06 Overview : Univers pharyngoes pharyngoes 12 Formattin ity of ophageal ophageal 00:00: g of this Marciano as phase phase 00 note Medical might be Branch different from the original. Added automatic ally from request for surgery [id number] Hydrocepha Hydrocepha Disease Active 2016-06 U shaka gonzales 2-12 ity of 00:00: [place] [facility] Obesity Obesity Disease Active 2016-06 Univers (BMI (BMI 2-12 ity of 30-39.9) 30-39.9) 00:00: [place] [facility] Aftercare Aftercare Disease Active 2016-06 Uni vers following following 07 ity of surgery of surgery of 00:00: [place] the the Medical nervous nervous Branch system system Obstructiv Obstructiv Disease Active 2016-06 U shaka e e 1-04 ity of hydrocepha hydrocepha 00:00: [place] janet 00 Medical Branch Over Over Disease Active Univers weight weight 7-28 ity of 00:00: [place] [facility] Contracept Contracept Disease Active U shaka michael michael 7-05 ity of management management [place] History of History of Disease Active U marshallsoraida tubal tubal 01-01 ity of ligation ligation 00:00: [place] 00 Medical Branch Costochond Costochond Disease Active U shaka ritis ritis ity of [facility] 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 ILLNESS, ILLNESS, Diagnosis Active 2022-05-03 Memoria UNSPECIFIE UNSPECIFIE 21:48:00 l D D Active Man [facility] Chronic Chronic Problem Active 2022-04-26 Me moria cough cough 23:31:32 l (finding) (finding) Herm yaneth Active Problem 04/26/[address] [facility] Gastroesop Gastroeso Problem Active 2022-04-26 Memoria hageal phageal 23:31:32 l reflux reflux [place]ard disease disease (disorder) (disorder) Active Problem 04/26/[address] [facility] Hypertensi Hypertens Problem Active 2022-04-26 Memoria ve michael 23:31:32 l disorder, disorder, Herm yaneth systemic systemic arterial arterial (disorder) (disorder) Active Problem 04/26/[address] [facility] Microcytic Microcyti Problem Active 2022-04-26 Memoria hypochromi c 23:31:32 l c anemia hypochromi Herm yaneth (disorder) c anemia (disorder) Active Problem 04/26/[address] [facility] Allergies, Adverse Reactions, Alerts Allergy Allergy Status [...] s to Branch drug morphine morphine Active Memori a l Man Family History Family Member Diagnosis Comments Start Date Stop Date Source Natural father Heart [facility] Maternal Aunt Cancer [facility] Maternal Aunt Diabetes [facility] Natural mother Cancer [facility] Paternal Diabetes University of grandmother [facility] Natural sister Psychiatry [facility] Family member Arthritis [facility] Family member Asthma [facility] Family member defects Universi ty [facility] Family member Breast Cancer [facility]i [facility] Family member Colon Cancer [facility]it [facility] Family member Depression [facility] Family member Genetic [facility] Family member High cholesterol Unive rsity of [facility] Family member Hypertension Universit y [facility] Family member Mental retardation Uni versity of [facility] Family member Neurological Universit y [facility] Family member Osteoporosis Universit y [facility] Family member Other - see [facility] Family member Ovarian Cancer Univers ity [facility] Family [facility] Social History Social Habit Start Date Stop Date Quantity Comments Source History SDOH University o f Alcohol Std Drinks [facility] History SDOH Social Unive rsity of Connections [facility] Med ical Together Branch History SDOH Social Unive rsity of Connections [facility] [place] History SDOH Social Unive rsity of Connections [place] [facility] Branch History SDOH Social Unive rsity of Connections [facility] Branch Exposure to 2022-10-08 2022-10-18 Not sure University of SARS-CoV-2 (event) 00:00:00 13:15:00 [facility] Alcohol intake 2022-09-05 2022-09-05 0 /d University of 00:00:00 00:00:00 [place] [facility] History SDOH 2022-08-19 2022-08-19 1 University o f Alcohol Frequency 00:00:00 00:00:00 [place] M edical Branch History SDOH 2022-08-19 2022-08-19 1 University o f Alcohol Binge 00:00:00 00:00:00 [place] Medic al Branch History SDOH Social 2022-08-19 2022-08-19 5 Unive rsity of Connections Phone 00:00:00 00:00:00 [place] M edical Branch History SDOH Social 2022-08-19 2022-08-19 3 Unive rsity of Connections Living 00:00:00 00:00:00 [place] [facility] History SDOH 2022-08-19 2022-08-19 5 University o f Physical Activity 00:00:00 00:00:00 [facility] edical DPW Branch History SDOH 2022-08-19 2022-08-19 3 University o f Physical Activity 00:00:00 00:00:00 [facility] edical MPS Branch History SDOH 2022-08-19 2022-08-19 5 University o f Financial 00:00:00 00:00:00 [place] [facility] History SDOH Food 2022-08-19 2022-08-19 1 Univers ity of Worry 00:00:00 00:00:00 [place] [facility] History SDOH Food 2022-08-19 2022-08-19 1 Univers ity of Scarcity 00:00:00 00:00:00 [place] [facility] History SDOH 2022-08-19 2022-08-19 2 University o f Transport Med 00:00:00 00:00:00 [place] [facility] al Branch History [facility] 2022-08-19 2022-08-19 2 University o f Transport Non-Med 00:00:00 00:00:00 [facility] [place] [facility] Tobacco use and 2022-08-16 2022-08-16 Smokeless Universit y of exposure 00:00:00 00:00:00 tobacco non-user [facility] Alcohol Comment 2017-01-24 2017-01-24 socially Universit y of 00:00:00 00:00:00 [facility] Sex [birth year] Universit y of 00:00:00 00:00:00 [facility] Smoking Status Start Date Stop Date Source Tobacco smoking status [facility] Medications Ordered Filled Start Stop Current Ordering Indication Dosage Frequency Signature Comments Components Source Medication Medication Date Date Medication? Clinician (SIG) Name Name aspirin 81 2022-0 Yes [id number] 81mg Take 1 Univers mg chewable 2-22 tablet by ity of tablet 00:00: mouth in [place] 00 the Medical morning. Branch aspirin 81 2022-0 Yes [id number] 81mg Take 1 Univers mg chewable 2-22 tablet by ity of tablet 00:00: mouth in [place] 00 the Medical morning. Branch aspirin 81 2022-0 Yes [id number] 81mg Take 1 Univers mg chewable 2-22 tablet by ity of tablet 00:00: mouth in [place] 00 the Medical morning. Branch aspirin 81 2022-0 Yes [id number] 81mg Take 1 Univers mg chewable 2-22 tablet by ity of tablet 00:00: mouth in [place] 00 the Medical morning. Branch aspirin 81 2022-0 Yes [id number] 81mg Take 1 Univers mg chewable 2-22 tablet by ity of tablet 00:00: mouth in [place] 00 the Medical morning. Branch aspirin 81 2022-0 Yes [id number] 81mg Take 1 Univers mg chewable 2-22 tablet by ity of tablet 00:00: mouth in [place] 00 the Medical morning. Branch aspirin 81 2022-0 Yes [id number] 81mg Take 1 Univers mg chewable 2-22 tablet by ity of tablet 00:00: mouth in [place] 00 the Medical morning. Branch aspirin 81 2022-0 Yes [id number] 81mg Take 1 Univers mg chewable 2-22 tablet by ity of tablet 00:00: mouth in [place] the Medical morning. Branch aspirin 81 2022-0 Yes [id number] 81mg Take 1 Univers mg chewable 2-22 tablet by ity of tablet 00:00: mouth in [place] the Medical morning. Branch aspirin 81 2022-0 Yes [id number] 81mg Take 1 Univers mg chewable 2-22 tablet by ity of tablet 00:00: mouth in [place] the Medical morning. Branch aspirin 81 2022-0 Yes [id number] 81mg Take 1 Univers mg chewable 2-22 tablet by ity of tablet 00:00: mouth in [place] the Medical morning. Branch aspirin 81 2022-0 Yes [id number] 81mg Take 1 Univers mg chewable 2-22 tablet by ity of tablet 00:00: mouth in [place] the Medical morning. Branch aspirin 81 3-0 Yes [id number] 81mg Take 1 Univers mg chewable 2-22 tablet by ity of tablet 00:00: mouth in [place] 00 the Medical morning. Branch aspirin 81 3-0 Yes [id number] 81mg Take 1 Univers mg chewable 2-22 tablet by ity of tablet 00:00: mouth in [place] 00 the Medical morning. Branch aspirin 81 2022-0 Yes [id number] 81mg Take 1 Univers mg chewable 2-22 tablet by ity of tablet 00:00: mouth in [place] 00 the Medical morning. Branch gabapentin Yes 100mg 100 mg, Uni vers (NEURONTIN) 2-21 Oral, TID, it y of capsule 100 20:00: First dose [place] mg 00 on [facility] 08/20/22 at Branch 1400, Until Discontinu ed, Routine amLODIPine 2022-2022- No 10mg Take 10 mg Univers 10 mg -20 08- by mouth ity of tablet 16:26: 00:00 in the [place] 32 :00 morning. [facility] Branch amLODIPine 0 2022- No 10mg Take 10 mg Univers 10 mg 08-20- by mouth ity of tablet 16:26: 00:00 in the [place] 32 :00 morning. [facility] Branch aspirin Yes 81mg 81 mg, Univers chewable 2-21 Oral, ity of tablet 81 15:00: DAILY, [place] mg 00 First dose Medical on [facility] 08/20/22 at 0900, Until Discontinu ed, Routine HYDROcodone 0 Yes 1{tbl} 1 tablet, Univers -acetaminop 2-21 Oral, ity of hen (NORCO) 14:14: Q6HPRN, Marciano as 10-325 mg 44 Starting Medica l tablet 1 on [facility] tablet 08/20/22 at 0814, Until Discontinu ed, Routine, Pain (scale 7-10) HYDROcodone 0 Yes 1{tbl} 1 tablet, Univers -acetaminop 2-21 Oral, ity of hen (NORCO 14:14: Q4HPRN, [place] 5) 5-325 mg 21 Starting Medi west[place] tablet 1 on [facility] tablet 08/20/22 at 0814, Until Discontinu ed, Routine, Pain (scale 4-6) benzonatate 2022-2022- No 200mg Take 200 Univers 200 mg -20 08-21 mg by ity of capsule 13:09: 00:00 mouth [place] 00 :00 every 6 Medical (six) Branch hours as needed for Cough. cetirizine 2022-2022- No 10mg Take 10 mg Univers 10 mg -20 08-21 by mouth ity of tablet 13:09: 00:00 in the [place] 00 :00 morning. [facility] Branch famotidine 2022- No 20mg Take 20 mg Univers 20 mg 08-20- by mouth ity of tablet 13:09: 00:00 in the [place] 00 :00 morning Medical and 20 mg Branch in the evening. fluticasone 2022- No Use in Uni vers propionate -20 08- each ity of 50 13:09: 00:00 nostril [place] mcg/actuati 00 :00 daily. Medica l on nasal Branch spray hydroCHLORO 2022- No 12.5mg Take 12.5 Univers thiazide -20 08-21 mg by ity of 12.5 mg 13:09: 00:00 mouth in [place] capsule 00 :00 the Medical morning. Branch benzonatate 2022- No 200mg Take 200 Univers 200 mg 08-20-21 mg by ity of capsule 13:09: 00:00 mouth [place] 00 :00 every 6 Medical (six) Branch hours as needed for Cough. cetirizine 2022- No 10mg Take 10 mg Univers 10 mg 08-20 by mouth ity of tablet 13:09: 00:00 in the [place] 00 :00 morning. Medical Branch famotidine 2022- No 20mg Take 20 mg Univers 20 mg 08-20- by mouth ity of tablet 13:09: 00:00 in the [place] 00 :00 morning Medical and 20 mg Branch in the evening. fluticasone 2022- No Use in Uni vers propionate 08-20- each ity of 50 13:09: 00:00 nostril [place] mcg/actuati 00 :00 daily. Medica l on nasal Branch spray hydroCHLORO 2022- No 12.5mg Take 12.5 Univers thiazide -21 -21 mg by ity of 12.5 mg 13:09: 00:00 mouth in [place] capsule 00 :00 the Medical morning. Branch ramelteon Yes 8mg 8 mg, Univers (ROZEREM) 2-21 Oral, QHS, ity of tablet 8 mg 03:07: First dose [place] 00 on Mon Medical 08/19/22 at Branch 2115, Until Discontinu ed, Routine butalbital- 2023-0 2023- No 1{tbl} 1 tablet, Univers acetaminoph 2-21 -21 Oral, ity of en-caff 02:08: 02:51 ONCE, 1 [place] (ESGIC) 00 :00 dose, On Medical 50-325-40 Mon Branch mg tablet 1 08/19/22 at tablet 2015, Routine atorvastati 2022-0 Yes [id number] 80mg Take 1 Univers n 80 mg 2-21 tablet by ity of tablet 00:00: mouth at [place] 00 bedtime. Medical Branch gabapentin 2022-0 Yes [id number] 100mg Take 1 Univers 100 mg 2-21 capsule by ity of capsule 00:00: mouth in [place] 00 the Medical morning Branch and 1 capsule at noon and 1 capsule in the evening. atorvastati 2022-0 Yes [id number] 80mg Take 1 Univers n 80 mg 2-21 tablet by ity of tablet 00:00: mouth at [place] [address] bedtime. Medical Branch gabapentin 2022-0 Yes [id number] 100mg Take 1 Univers 100 mg 2-21 capsule by ity of capsule 00:00: mouth in [place] 00 the Medical morning Branch and 1 capsule at noon and 1 capsule in the evening. atorvastati 2022-0 Yes [id number] 80mg Take 1 Univers n 80 mg 2-21 tablet by ity of tablet 00:00: mouth at [place] [address] bedtime. Medical Branch gabapentin 2022-0 Yes [id number] 100mg Take 1 Univers 100 mg 2-21 capsule by ity of capsule 00:00: mouth in [place] 00 the Medical morning Branch and 1 capsule at noon and 1 capsule in the evening. atorvastati 2022-0 Yes [id number] 80mg Take 1 Univers n 80 mg 2-21 tablet by ity of tablet 00:00: mouth at [place] 00 bedtime. Medical Branch gabapentin 2022-0 Yes [id number] 100mg Take 1 Univers 100 mg 2-21 capsule by ity of capsule 00:00: mouth in [place] 00 the Medical morning Branch and 1 capsule at noon and 1 capsule in the evening. atorvastati 2022-0 Yes [id number] 80mg Take 1 Univers n 80 mg 2-21 tablet by ity of tablet 00:00: mouth at [place] [address] bedtime. Medical Branch gabapentin 2022-0 Yes [id number] 100mg Take 1 Univers 100 mg 2-21 capsule by ity of capsule 00:00: mouth in [place] 00 the Medical morning Branch and 1 capsule at noon and 1 capsule in the evening. atorvastati 2023-0 Yes [id number] 80mg Take 1 Univers n 80 mg 2-21 tablet by ity of tablet 00:00: mouth at [place] [address] bedtime. Medical Branch gabapentin 2023-0 Yes [id number] 100mg Take 1 Univers 100 mg 2-21 capsule by ity of capsule 00:00: mouth in [place] 00 the Medical morning Branch and 1 capsule at noon and 1 capsule in the evening. atorvastati 2023-0 Yes [id number] 80mg Take 1 Univers n 80 mg 2-21 tablet by ity of tablet 00:00: mouth at [place] [address] bedtime. Medical Branch gabapentin 3-0 Yes [id number] 100mg Take 1 Univers 100 mg 2-21 capsule by ity of capsule 00:00: mouth in [place] 00 the Medical morning Branch and 1 capsule at noon and 1 capsule in the evening. atorvastati 3-0 Yes [id number] 80mg Take 1 Univers n 80 mg 2-21 tablet by ity of tablet 00:00: mouth at [place] [address] bedtime. Medical Branch gabapentin 3-0 Yes [id number] 100mg Take 1 Univers 100 mg 2-21 capsule by ity of capsule 00:00: mouth in [place] 00 the Medical morning Branch and 1 capsule at noon and 1 capsule in the evening. atorvastati 3-0 Yes [id number] 80mg Take 1 Univers n 80 mg 2-21 tablet by ity of tablet 00:00: mouth at [place] [address] bedtime. Medical Branch gabapentin 3-0 Yes [id number] 100mg Take 1 Univers 100 mg 2-21 capsule by ity of capsule 00:00: mouth in [place] 00 the Medical morning Branch and 1 capsule at noon and 1 capsule in the evening. atorvastati 2023-0 Yes [id number] 80mg Take 1 Univers n 80 mg 2-21 tablet by ity of tablet 00:00: mouth at [place] [address] bedtime. Medical Branch gabapentin 2023-0 Yes [id number] 100mg Take 1 Univers 100 mg 2-21 capsule by ity of capsule 00:00: mouth in [place] 00 the Medical morning Branch and 1 capsule at noon and 1 capsule in the evening. atorvastati 2022-0 Yes [id number] 80mg Take 1 Univers n 80 mg 2-21 tablet by ity of tablet 00:00: mouth at [place] 00 bedtime. Medical Branch gabapentin 2022-0 Yes [id number] 100mg Take 1 Univers 100 mg 2-21 capsule by ity of capsule 00:00: mouth in [place] 00 the Medical morning Branch and 1 capsule at noon and 1 capsule in the evening. atorvastati 2022-0 Yes [id number] 80mg Take 1 Univers n 80 mg 2-21 tablet by ity of tablet 00:00: mouth at [place] 00 bedtime. Medical Branch gabapentin 2022-0 Yes [id number] 100mg Take 1 Univers 100 mg 2-21 capsule by ity of capsule 00:00: mouth in [place] 00 the Medical morning Branch and 1 capsule at noon and 1 capsule in the evening. atorvastati 2022-0 Yes [id number] 80mg Take 1 Univers n 80 mg 2-21 tablet by ity of tablet 00:00: mouth at [place] [address] bedtime. Medical Branch gabapentin 2022-0 Yes [id number] 100mg Take 1 Univers 100 mg 2-21 capsule by ity of capsule 00:00: mouth in [place] 00 the Medical morning Branch and 1 capsule at noon and 1 capsule in the evening. atorvastati 2022-0 Yes [id number] 80mg Take 1 Univers n 80 mg 2-21 tablet by ity of tablet 00:00: mouth at [place] [address] bedtime. Medical Branch gabapentin 2022-0 Yes [id number] 100mg Take 1 Univers 100 mg 2-21 capsule by ity of capsule 00:00: mouth in [place] 00 the Medical morning Branch and 1 capsule at noon and 1 capsule in the evening. atorvastati 2022-0 Yes [id number] 80mg Take 1 Univers n 80 mg 2-21 tablet by ity of tablet 00:00: mouth at [place] [address] bedtime. Medical Branch gabapentin 2022-0 Yes [id number] 100mg Take 1 Univers 100 mg 2-21 capsule by ity of capsule 00:00: mouth in [place] 00 the Medical morning Branch and 1 capsule at noon and 1 capsule in the evening. aspirin 3-0 2022- No 325mg 325 mg, Unive rs tablet 325 2-20 -20 Oral, ity of mg 23:00: 23:54 ONCE, 1 [place] 00 :00 dose, On [facility] 08/19/22 at 1700, Routine perflutren 2022- No [id number] 3mL 3 mL, IV Univers protein-A 08-19 Push, ity of microsphr 16:15: 16:15 ONCE, 1 [place] (OPT[place] 00 :00 dose, On Medica l injection 3 Mon [facility] 08/19/22 at 1015, Routine atorvastati Yes 80mg 80 mg, Univ ers n (LIPITOR) 2-20 Oral, QHS, it y of tablet 80 03:00: First dose [place] mg 00 on [facility] 08/18/22 at Branch 2100, Until Discontinu ed, Routine melatonin 2022- No 3mg 3 mg, Univer s (MELATIN) 08-19 Oral, ity of tablet 3 mg 01:14: 01:49 ONCE, 1 [place] 00 :00 dose, On [facility] 08/18/22 at 1915, Routine iopamidol 2022- No [id number] 100mL 100 mL, Univers (ISOVUE 08-19 Intravenou ity o f 370-500 mL) 00:15: 00:15 s, ONCE, 1 [place] injection 00 :00 dose, On Medica l 100 mL [facility] 08/18/22 at 1815, Routine gadoteridol 2022- No [id number] .2mL/kg 14.7 mL Univers (PROHANCE-1 08-18 (0.2 mL/kg i ty of 5 mL) 17:00: 17:00 ?73.5 kg), [place] injection 00 :00 Intravenou Medi westley 14.7 mL s, ONCE, 1 Branch dose, On [place] 08/18/22 at 1100, Routine sennosides Yes 8.6mg 8.6 mg, Uni vers (SENOKOT) 18 Oral, ity of tablet 8.6 15:00: DAILY, [place] mg 00 First dose Medical on [facility] 08/17/22 at 0900, Until Discontinu ed, Routine KCL 2022- No 40meq 40 mEq, Univers (KLOR-CON 08-17 Oral, ity of M20) tablet 15:00: 16:38 ONCE, 1 [place] 40 mEq 00 :00 dose, On Medical Sat Branch 08/17/22 at 0900, Routine docusate 2022- No 100mg 100 mg, Univ ers (COLACE) 08-17 Oral, ity of capsule 100 15:00: 14:13 DAILY, [place] mg 00 :33 First dose Medical on [facility] Branch 08/17/22 at 0900, Until Discontinu ed, Routine famotidine Yes 20mg 20 mg, Unive rs (PEPCID AC) 08-17 Oral, BID, it y of tablet 20 14:00: First dose [place] mg 00 on [facility] Medical 08/17/22 at Branch 0800, Until Discontinu ed, Routine iopamidol 2022- No [id number] 80mL 80 mL, Univers (ISOVUE 08-17 Intravenou ity o f 370-500 mL) 13:12: 12:55 s, ONCE, 1 [place] injection 00 :00 dose, On Medica l 80 mL [facility] Branch 08/17/22 at 0715, Routine heparin Yes 5000U 5,000 Univers (porcine) 2-18 Units, ity of injection 04:00: Subcutaneo [place] 5,000 Units 00 us, Q8H, Medi west[place] First dose Branch on Fri08/16/22 at 2200, Until Discontinu ed, Routine acetaminoph 0 Yes 650mg 650 mg, Un maulik en 08-16 Oral, ity of (TYLENOL) 23:56: Q6HPRN, [place] tablet 650 16 Starting Medic al mg on Fri Branch 08/16/22 at 1756, Until Discontinu ed, Routine, Pain (scale 1-3) phenylephri 2022- No Take 1 Uni vers ne-DM-guaif 08-16 TAB-CAP/M2 i ty of enesin 18:12: 00:00 by mouth [place] (DECONEX 08 :00 every 4 Medical DMX) (four) Branch 10-17.5-385 hours as mg Tab needed (cough). phenylephri 2022-2022- No Take 1 Uni vers ne-DM-guaif 08-16 TAB-CAP/M2 i ty of enesin 18:12: 00:00 by mouth [place] (DECONEX 08 :00 every 4 Medical DMX) (four) Branch 10-17.5-385 hours as mg Tab needed (cough). sucralfate 2022-2022- No 1g Take 1 g Un maulik 1 gram 08-16 by mouth ity of tablet 18:12: 00:00 before [place] 05 :00 meals and Medical at [place] bedtime. sucralfate 2022-0 2022- No 1g Take 1 g Un maulik 1 gram 08-16 by mouth ity of tablet 18:12: 00:00 before [place] 05 :00 meals and Medical at [place] bedtime. pantoprazol 2022-2022- No 40mg Take 40 mg Univers e 40 mg EC 08-16 by mouth ity of tablet 18:11: 00:00 in the [place] 52 :00 morning. Medical Branch pantoprazol 2022-0 2022- No 40mg Take 40 mg Univers e 40 mg EC 08-16 by mouth ity of tablet 18:11: 00:00 in the [place] 52 :00 morning. Medical Branch omeprazole 2022-0 2022- No 20mg Take 20 mg Univers 20 mg 08-16 by mouth ity of capsule 18:11: 00:00 in the [place] 40 :00 morning. Medical Branch omeprazole 2022-0 2022- No 20mg Take 20 mg Univers 20 mg 08-16 by mouth ity of capsule 18:11: 00:00 in the [place] 40 :00 morning. Medical Branch montelukast 2022-0 2022- No 10mg Take 10 mg Univers 10 mg 08-16 by mouth ity of tablet 18:11: 00:00 at [place] 37 :00 bedtime. Medical Branch montelukast 2022-0 3- No 10mg Take 10 mg Univers 10 mg 08-16 by mouth ity of tablet 18:11: 00:00 at [place] 37 :00 bedtime. Medical Branch budesonide 2022-0 3- No .25mg Inhale Uni vers 0.25 mg/2 2-17 02-17 0.25 mg in ity of mL 18:10: 00:00 the [place] nebulizer 40 :00 morning Medical solution and 0.25 Branch mg in the evening. budesonide 2022- No .25mg Inhale Uni vers 0.25 mg/2 2-17 02-17 0.25 mg in ity of mL 18:10: 00:00 the [place] nebulizer 40 :00 morning Medical solution and 0.25 Branch mg in the evening. allopurinoL 2022- No 300mg Take 300 Univers 300 mg 2-17 02-17 mg by ity of tablet 18:10: 00:00 mouth in [place] 19 :00 the Medical morning. Branch allopurinoL 2022- No 300mg Take 300 Univers 300 mg 2-17 02-17 mg by ity of tablet 18:10: 00:00 mouth in [place] 19 :00 the Medical morning. Branch acetic acid 2022- No 5[drp] Place 5 Univers 2 % otic 2-17 02-17 Drops in ity of solution 18:10: 00:00 both ears [place] as 07 :00 in the Medical morning Branch and 5 Drops at noon and 5 Drops in the evening. acetic acid 2022- No 5[drp] Place 5 Univers 2 % otic 2-17 02-17 Drops in ity of solution 18:10: 00:00 both ears [place] as 07 :00 in the Medical morning Branch and 5 Drops at noon and 5 Drops in the evening. dexAMETHaso 2022-0 Yes TAKE 2 Univ ers ne 4 mg 2-13 TABLETS BY ity of tablet 00:00: MOUTH [place] 00 TWICE Medical DAILY FOR Branch 2 DAYS THEN 1 TABLET TWICE DAILY FOR 1 DAY START AFTER EACH CHEMO TREATMENT FOR 3 DAYS dexAMETHaso 3-0 Yes TAKE 2 Univ ers ne 4 mg 2-13 TABLETS BY ity of tablet 00:00: MOUTH [place] 00 TWICE Medical DAILY FOR Branch 2 DAYS THEN 1 TABLET TWICE DAILY FOR 1 DAY START AFTER EACH CHEMO TREATMENT FOR 3 DAYS dexAMETHaso 2023-0 Yes TAKE 2 Univ ers ne 4 mg 2-13 TABLETS BY ity of tablet 00:00: MOUTH [place] 00 TWICE Medical DAILY FOR Branch 2 DAYS THEN 1 TABLET TWICE DAILY FOR 1 DAY START AFTER EACH CHEMO TREATMENT FOR 3 DAYS dexAMETHaso Yes TAKE 2 Univ ers ne 4 mg 2-13 TABLETS BY ity of tablet 00:00: MOUTH [place] 00 TWICE Medical DAILY FOR Branch 2 DAYS THEN 1 TABLET TWICE DAILY FOR 1 DAY START AFTER EACH CHEMO TREATMENT FOR 3 DAYS dexAMETHaso Yes TAKE 2 Univ ers ne 4 mg 2-13 TABLETS BY ity of tablet 00:00: MOUTH [place] 00 TWICE Medical DAILY FOR Branch 2 DAYS THEN 1 TABLET TWICE DAILY FOR 1 DAY START AFTER EACH CHEMO TREATMENT FOR 3 DAYS dexAMETHaso Yes TAKE 2 Univ ers ne 4 mg 2-13 TABLETS BY ity of tablet 00:00: MOUTH [place] 00 TWICE Medical DAILY FOR Branch 2 DAYS THEN 1 TABLET TWICE DAILY FOR 1 DAY START AFTER EACH CHEMO TREATMENT FOR 3 DAYS dexAMETHaso Yes TAKE 2 Univ ers ne 4 mg 2-13 TABLETS BY ity of tablet 00:00: MOUTH [place] 00 TWICE Medical DAILY FOR Branch 2 DAYS THEN 1 TABLET TWICE DAILY FOR 1 DAY START AFTER EACH CHEMO TREATMENT FOR 3 DAYS dexAMETHaso Yes TAKE 2 Univ ers ne 4 mg 2-13 TABLETS BY ity of tablet 00:00: MOUTH [place] 00 TWICE Medical DAILY FOR Branch 2 DAYS THEN 1 TABLET TWICE DAILY FOR 1 DAY START AFTER EACH CHEMO TREATMENT FOR 3 DAYS dexAMETHaso Yes TAKE 2 Univ ers ne 4 mg 2-13 TABLETS BY ity of tablet 00:00: MOUTH [place] 00 TWICE Medical DAILY FOR Branch 2 DAYS THEN 1 TABLET TWICE DAILY FOR 1 DAY START AFTER EACH CHEMO TREATMENT FOR 3 DAYS dexAMETHaso Yes TAKE 2 Univ ers ne 4 mg 2-13 TABLETS BY ity of tablet 00:00: MOUTH [place] 00 TWICE Medical DAILY FOR Branch 2 DAYS THEN 1 TABLET TWICE DAILY FOR 1 DAY START AFTER EACH CHEMO TREATMENT FOR 3 DAYS dexAMETHaso Yes TAKE 2 Univ ers ne 4 mg 2-13 TABLETS BY ity of tablet 00:00: MOUTH [place] 00 TWICE Medical DAILY FOR Branch 2 DAYS THEN 1 TABLET TWICE DAILY FOR 1 DAY START AFTER EACH CHEMO TREATMENT FOR 3 DAYS dexAMETHaso Yes TAKE 2 Univ ers ne 4 mg 2-13 TABLETS BY ity of tablet 00:00: MOUTH [place] 00 TWICE Medical DAILY FOR Branch 2 DAYS THEN 1 TABLET TWICE DAILY FOR 1 DAY START AFTER EACH CHEMO TREATMENT FOR 3 DAYS dexAMETHaso Yes TAKE 2 Univ ers ne 4 mg 2-13 TABLETS BY ity of tablet 00:00: MOUTH [place] 00 TWICE Medical DAILY FOR Branch 2 DAYS THEN 1 TABLET TWICE DAILY FOR 1 DAY START AFTER EACH CHEMO TREATMENT FOR 3 DAYS dexAMETHaso Yes TAKE 2 Univ ers ne 4 mg 2-13 TABLETS BY ity of tablet 00:00: MOUTH [place] 00 TWICE Medical DAILY FOR Branch 2 DAYS THEN 1 TABLET TWICE DAILY FOR 1 DAY START AFTER EACH CHEMO TREATMENT FOR 3 DAYS dexAMETHaso Yes TAKE 2 Univ ers ne 4 mg 2-13 TABLETS BY ity of tablet 00:00: MOUTH [place] 00 TWICE Medical DAILY FOR Branch 2 DAYS THEN 1 TABLET TWICE DAILY FOR 1 DAY START AFTER EACH CHEMO TREATMENT FOR 3 DAYS ondansetron 2022- No DISSOLVE 1 Univers 4 mg -12 08-21 TABLET IN ity of disintegrat 00:00: 00:00 MOUTH [place] tablet 00 :00 EVERY 4 TO Med ical 6 HOURS Branch NEEDED ondansetron 2022- No DISSOLVE 1 Univers 4 mg -12 08- TABLET IN ity of disintegrat 00:00: 00:00 MOUTH [place] ing tablet 00 :00 EVERY 4 TO Med ical 6 HOURS Branch NEEDED escitalopra 2022- No 10mg Take 10 mg Univers m oxalate 08-06 by mouth ity o f 10 mg 00:00: 00:00 in the [place] tablet 00 :00 morning. Medical Branch escitalopra 2022- No 10mg Take 10 mg Univers m oxalate 08-06 by mouth ity o f 10 mg 00:00: 00:00 in the [place] tablet 00 :00 morning. Medical Branch SERTraline Yes TAKE 1/2 Uni vers 50 mg 1-18 (ONE-HALF) ity of tablet 00:00: TABLET BY [place] 00 MOUTH ONCE Medical DAILY FOR Branch 2 WEEKS THEN INCREASE TO 1 TABLET ONCE DAILY SERTraline Yes TAKE 1/2 Uni vers 50 mg 1-18 (ONE-HALF) ity of tablet 00:00: TABLET BY [place] 00 MOUTH ONCE Medical DAILY FOR Branch 2 WEEKS THEN INCREASE TO 1 TABLET ONCE DAILY SERTraline Yes TAKE 1/2 Uni vers 50 mg 1-18 (ONE-HALF) ity of tablet 00:00: TABLET BY [place] 00 MOUTH ONCE Medical DAILY FOR Branch 2 WEEKS THEN INCREASE TO 1 TABLET ONCE DAILY SERTraline 2023-0 Yes TAKE 1/2 Uni vers 50 mg 1-18 (ONE-HALF) ity of tablet 00:00: TABLET BY [place] 00 MOUTH ONCE Medical DAILY FOR Branch 2 WEEKS THEN INCREASE TO 1 TABLET ONCE DAILY SERTraline 2023-0 Yes TAKE 1/2 Uni vers 50 mg 1-18 (ONE-HALF) ity of tablet 00:00: TABLET BY [place] 00 MOUTH ONCE Medical DAILY FOR Branch 2 WEEKS THEN INCREASE TO 1 TABLET ONCE DAILY SERTraline 2023-0 Yes TAKE 1/2 Uni vers 50 mg 1-18 (ONE-HALF) ity of tablet 00:00: TABLET BY [place] 00 MOUTH ONCE Medical DAILY FOR Branch 2 WEEKS THEN INCREASE TO 1 TABLET ONCE DAILY SERTraline 2023-0 Yes TAKE 1/2 Uni vers 50 mg 1-18 (ONE-HALF) ity of tablet 00:00: TABLET BY [place] 00 MOUTH ONCE Medical DAILY FOR Branch 2 WEEKS THEN INCREASE TO 1 TABLET ONCE DAILY SERTraline 2023-0 Yes TAKE 1/2 Uni vers 50 mg 1-18 (ONE-HALF) ity of tablet 00:00: TABLET BY [place] 00 MOUTH ONCE Medical DAILY FOR Branch 2 WEEKS THEN INCREASE TO 1 TABLET ONCE DAILY SERTraline 2023-0 Yes TAKE 1/2 Uni vers 50 mg 1-18 (ONE-HALF) ity of tablet 00:00: TABLET BY [place] 00 MOUTH ONCE Medical DAILY FOR Branch 2 WEEKS THEN INCREASE TO 1 TABLET ONCE DAILY SERTraline 2023-0 Yes TAKE 1/2 Uni vers 50 mg 1-18 (ONE-HALF) ity of tablet 00:00: TABLET BY [place] 00 MOUTH ONCE Medical DAILY FOR Branch 2 WEEKS THEN INCREASE TO 1 TABLET ONCE DAILY SERTraline 2023-0 Yes TAKE 1/2 Uni vers 50 mg 1-18 (ONE-HALF) ity of tablet 00:00: TABLET BY [place] 00 MOUTH ONCE Medical DAILY FOR Branch 2 WEEKS THEN INCREASE TO 1 TABLET ONCE DAILY SERTraline 2023-0 Yes TAKE 1/2 Uni vers 50 mg 1-18 (ONE-HALF) ity of tablet 00:00: TABLET BY [place] 00 MOUTH ONCE Medical DAILY FOR Branch 2 WEEKS THEN INCREASE TO 1 TABLET ONCE DAILY SERTraline 2023-0 Yes TAKE 1/2 Uni vers 50 mg 1-18 (ONE-HALF) ity of tablet 00:00: TABLET BY [place] 00 MOUTH ONCE Medical DAILY FOR Branch 2 WEEKS THEN INCREASE TO 1 TABLET ONCE DAILY SERTraline Yes TAKE 1/2 Uni vers 50 mg 1-18 (ONE-HALF) ity of tablet 00:00: TABLET BY [place] 00 MOUTH ONCE Medical DAILY FOR Branch 2 WEEKS THEN INCREASE TO 1 TABLET ONCE DAILY SERTraline Yes TAKE 1/2 Uni vers 50 mg 1-18 (ONE-HALF) ity of tablet 00:00: TABLET BY [place] 00 MOUTH ONCE Medical DAILY FOR Branch 2 WEEKS THEN INCREASE TO 1 TABLET ONCE DAILY iopamidol 2021-06- No [id number] 75mL 75 mL, Univers (ISOVUE 08-05 Intravenou ity o f 370-500 mL) 21:00: 21:00 s, ONCE, 1 [place] injection 00 :00 dose, On Medica l 75 mL [facility] 06/04/22 at 1500, Routine aspirin 2021-06 No 325mg 325 mg, Unive rs tablet 325 08-05 Oral, ity of mg 19:00: 17:57 ONCE, 1 [place] 00 :00 dose, On Medical [facility] 06/04/22 at 1300, NADER ketorolac 2021-06 No 30mg 30 mg, Unive rs (TORADOL) 08-05 Slow IV ity of injection 19:00: 17:58 Push, [place] 30 mg 00 :00 ONCE, 1 Medical dose, On [facility] 06/04/22 at 1300, NADER pantoprazol 2021-06 Yes 40mg Take 40 mg Univers e 40 mg EC 2-06 by mouth ity o f tablet 16:46: in the [place] morning. [facility] sucralfate 2021-06 Yes 1g Take 1 g Uni vers 1 gram 2-06 by mouth ity of tablet 16:46: before [place] [address] meals and Medical at [place] bedtime. allopurinoL 2021-06 Yes 300mg Take 300 U nivers 300 mg 2-06 mg by ity of tablet 16:46: mouth in [place] [address] the Medical morning. [place] acetic acid 2021-06 Yes 5[drp] Place 5 [...] for Cough. budesonide 2021-06 Yes .25mg Inhale [facility] [place] [facility] ers 0.25 mg/2 2-06 0.25 mg in ity of mL 16:46: the [place] nebulizer 01 morning Medical solution and 0.25 Branch mg in the evening. cetirizine 2021-06 Yes 10mg Take 10 mg U nivers 10 mg 2-06 by mouth ity of tablet 16:46: in the [place] morning. Medical Branch phenylephri 2021-06 Yes Take 1 [facility] ne-DM-guaif 2-06 TAB-CAP/M2 it y of enesin 16:46: by mouth [place] (DECONEX 01 every 4 Medical DMX) (four) Branch 10-17.5-385 hours as mg Tab needed (cough). famotidine 2021-06 Yes 20mg Take 20 mg U nivers 20 mg 2-06 by mouth ity of tablet 16:46: in the [place] morning Medical and 20 mg Branch in the evening. fluticasone 2021-06 Yes Use in [facility] [place] [facility] ers propionate 2-06 each ity of 50 16:46: nostril [place] mcg/actuati 01 daily. Medica l on nasal Branch spray hydroCHLORO 2021-06 Yes 12.5mg Take 12.5 Univers thiazide 2-06 mg by ity of 12.5 mg 16:46: mouth in [place] capsule 01 the Medical morning. Branch montelukast 2021-06 Yes 10mg Take 10 mg Univers 10 mg 2-06 by mouth ity of tablet 16:46: at [place] bedtime. Medical Branch omeprazole 2021-06 Yes 20mg Take 20 mg U nivers 20 mg 2-06 by mouth ity of capsule 16:46: in the [place] morning. Medical Branch pantoprazol 2021-06 Yes 40mg Take 40 mg Univers e 40 mg EC 2-06 by mouth ity o f tablet 16:46: in the [place] morning. Medical Branch sucralfate 2021-06 Yes 1g Take 1 g Uni vers 1 gram 2-06 by mouth ity of tablet 16:46: before [place] meals and Medical at Branch bedtime. allopurinoL 2021-06 Yes 300mg Take 300 U nivers 300 mg 2-06 mg by ity of tablet 16:46: mouth in [place] the Medical morning. Branch acetic acid 2021-06 Yes 5[drp] Place 5 U nivers 2 % otic 2-06 Drops in ity of solution 16:46: both [place] 01 in the Medical morning Branch and 5 Drops at noon and 5 Drops in the evening. benzonatate 2021-06 Yes 200mg Take 200 U nivers 200 mg 2-06 mg by ity of capsule 16:46: mouth [place] 01 every 6 Medical (six) Branch hours as needed for Cough. budesonide 2021-06 Yes .25mg Inhale [facility] [place] [facility] ers 0.25 mg/2 2-06 0.25 mg in ity of mL 16:46: the [place] nebulizer morning Medical solution and 0.25 Branch mg in the evening. cetirizine 2021-06 Yes 10mg Take 10 mg U nivers 10 mg 2-06 by mouth ity of tablet 16:46: in the [place] morning. Medical Branch phenylephri 2021-06 Yes Take 1 [facility] [place] [facility] ers ne-DM-guaif 2-06 TAB-CAP/M2 it y of enesin 16:46: by mouth [place] (DECONEX 01 every 4 Medical DMX) (four) Branch 10-17.5-385 hours as mg Tab needed (cough). famotidine 2021-06 Yes 20mg Take 20 mg U nivers 20 mg 2-06 by mouth ity of tablet 16:46: in the [place] morning Medical and 20 mg Branch in the evening. fluticasone 2021-06 Yes Use in [facility] [place] [facility] ers propionate 2-06 each ity of 50 16:46: nostril [place] mcg/actuati 01 daily. Medica l on nasal Branch spray hydroCHLORO 2021-06 Yes 12.5mg Take 12.5 Univers thiazide 2-06 mg by ity of 12.5 mg 16:46: mouth in [place] capsule 01 the Medical morning. Branch montelukast 2021-06 Yes 10mg Take 10 mg Univers 10 mg 2-06 by mouth ity of tablet 16:46: at [place] 01 bedtime. Medical Branch omeprazole 2021-06 Yes 20mg Take 20 mg U nivers 20 mg 2-06 by mouth ity of capsule 16:46: in the [place] 01 morning. Medical Branch traMADOL 50 2021-06- No 50mg Take 50 mg Univers mg tablet 08-05- by mouth ity o f 11:35: 00:00 every 8 [place] 55 :00 (eight) Medical hours as Branch needed. LISINOPRIL 2021-06- No 1{tbl} Take 1 Un maulik ORAL 08-05 tablet by ity of 11:35: 00:00 mouth [place] 45 :00 daily. Medical Branch IBUPROFEN/D 2021-06 No 1{tbl} Take 1 U nivers IPHENHYDRAM 08-05 tablet by it y of INE CIT 11:35: 00:00 mouth as [place] (ADVIL PM 42 :00 needed. Medical ORAL) Branch HYDROCHLORO 2021-06- No Take 1 Uni vers THIAZIDE 2-06 TAB-CAP/M2 ity of ORAL 11:35: 00:00 by mouth [place] 36 :00 daily. Medical Branch amlodipine 2021-06 No Take 1 Univ ers besylate 08-05- TAB-CAP/M2 ity of (AMLODIPINE 11:35: 00:00 by mouth [place] ORAL) 33 :00 daily. Medical Branch ondansetron 2021-06 Yes [id number] 1-2 U nivers 4 mg tablet 2-06 tablets ity o f 00:00: every 8 [place] 00 hours as Medical needed for Branch nausea benzonatate 2021-06 Yes [id number] 200mg Take 1 Univers 200 mg 2-06 capsule by ity of capsule 00:00: mouth 3 [place] 00 (three) Medical times Branch daily as needed for Cough. albuterol 2021-06 Yes [id number] 2{puff} Inhale 2 Univers 90 2-06 Puffs ity of mcg/actuati 00:00: every 4 [place] on inhaler 00 (four) Medical hours as Branch needed for Wheezing or Shortness of Breath. ondansetron 2021-06 Yes [id number] 1-2 U nivers 4 mg tablet 2-06 tablets ity o f 00:00: every 8 [place] 00 hours as Medical needed for Branch nausea benzonatate 2021-06 Yes [id number] 200mg Take 1 Univers 200 mg 2-06 capsule by ity of capsule 00:00: mouth 3 [place] 00 (three) Medical times Branch daily as needed for Cough. albuterol 2021-06 Yes [id number] 2{puff} Inhale 2 Univers 90 2-06 Puffs ity of mcg/actuati 00:00: every 4 [place] on inhaler 00 (four) Medical hours as Branch needed for Wheezing or Shortness of Breath. ondansetron 2021-06 Yes [id number] 1-2 U nivers 4 mg tablet 2-06 tablets ity o f 00:00: every 8 [place] 00 hours as Medical needed for Branch nausea ondansetron 2021-06 Yes [id number] 1-2 U nivers 4 mg tablet 2-06 tablets ity o f 00:00: every 8 [place] 00 hours as Medical needed for Branch nausea ondansetron 2021-06 Yes [id number] 1-2 U nivers 4 mg tablet 2-06 tablets ity o f 00:00: every 8 [place] 00 hours as Medical needed for Branch nausea ondansetron 2021-06 Yes [id number] 1-2 U nivers 4 mg tablet 2-06 tablets ity o f 00:00: every 8 [place] 00 hours as Medical needed for Branch nausea ondansetron 2021- Yes [id number] 1-2 U nivers 4 mg tablet 2-06 tablets ity o f 00:00: every 8 [place] 00 hours as Medical needed for Branch nausea ondansetron 2021- Yes [id number] 1-2 U nivers 4 mg tablet 2-06 tablets ity o f 00:00: every 8 [place] 00 hours as Medical needed for Branch nausea ondansetron 2021- Yes [id number] 1-2 U nivers 4 mg tablet 2-06 tablets ity o f 00:00: every 8 [place] 00 hours as Medical needed for Branch nausea ondansetron 2- Yes [id number] 1-2 U nivers 4 mg tablet 2-06 tablets ity o f 00:00: every 8 [place] 00 hours as Medical needed for Branch nausea ondansetron 2021- Yes [id number] 1-2 U nivers 4 mg tablet 2-06 tablets ity o f 00:00: every 8 [place] 00 hours as Medical needed for Branch nausea ondansetron 2021- Yes [id number] 1-2 U nivers 4 mg tablet 2-06 tablets ity o f 00:00: every 8 [place] 00 hours as Medical needed for Branch nausea ondansetron 2021- Yes [id number] 1-2 U nivers 4 mg tablet 2-06 tablets ity o f 00:00: every 8 [place] 00 hours as Medical needed for Branch nausea ondansetron 2021- Yes [id number] 1-2 U nivers 4 mg tablet 2-06 tablets ity o f 00:00: every 8 [place] 00 hours as Medical needed for Branch nausea ondansetron 2021- Yes [id number] 1-2 U nivers 4 mg tablet 2-06 tablets ity o f 00:00: every 8 [place] 00 hours as Medical needed for Branch nausea ondansetron 2021- Yes [id number] 1-2 U nivers 4 mg tablet 2-06 tablets ity o f 00:00: every 8 [place] 00 hours as Medical needed for Branch nausea ondansetron 2021- Yes [id number] 1-2 U nivers 4 mg tablet 2-06 tablets ity o f 00:00: every 8 [place] 00 hours as Medical needed for Branch nausea albuterol 2021-06- No [id number] 2{puff} Inhale 2 Univers 90 - 02-21 Puffs ity of mcg/actuati 00:00: 00:00 every 4 [place] on inhaler 00 :00 (four) Medical hours as Branch needed for Wheezing or Shortness of Breath. albuterol 2021-06- No [id number] 2{puff} Inhale 2 Univers 90 2-06 02-21 Puffs ity of mcg/actuati 00:00: 00:00 every 4 [place] on inhaler 00 :00 (four) Medical hours as Branch needed for Wheezing or Shortness of Breath. benzonatate 2021-06- No [id number] 200mg Take 1 Univers 200 mg 08-05 capsule by ity of capsule 00:00: 00:00 mouth 3 [place] 00 :00 (three) Medical times Branch daily as needed for Cough. benzonatate 2021-06- No [id number] 200mg Take 1 Univers 200 mg 08-05 capsule by ity of capsule 00:00: 00:00 mouth 3 [place] 00 :00 (three) Medical times Branch daily as needed for Cough. acetaminoph 2021-06- No [id number] 1{tbl} Take 1 U nivers en-codeine 08-05 12-14 tablet by ity of 300-30 mg 00:00: 05:59 mouth [place] tablet 00 :00 every 4 Medical (four) Branch hours as needed (pain) for up to 7 days. Indication s: acute pain allopurinol 2021-06 Yes 300 mg = 1 [place] 300 mg oral 0-26 tab, PO, l tablet 17:52: Daily, # Man 00 30 tab, 0 Refill(s), Pharmacy: [id number], 162.56, cm, 04/10/22 22:50:00 CDT, Height, 74.7, kg, 04/10/22 22:50:00 CDT, Weight docusate 2021-06 Yes 100 mg = 1 Mem oria sodium 100 0-26 cap, PO, l mg oral 17:52: Daily, 0 Michael n capsule 00 Refill(s) allopurinol 2021-06 Yes 300 mg = 1 [place] 300 mg oral 0-26 tab, PO, l tablet 17:52: Daily, # [place] 00 30 tab, 0 Refill(s), Pharmacy: [facility], 162.56, cm, 04/10/22 22:50:00 CDT, [...] Man 00 30 tab, 0 Refill(s), Pharmacy: [facility], 162.56, cm, 04/10/22 22:50:00 CDT, [...] Man 00 30 tab, 0 Refill(s), Pharmacy: [facility], 162.56, cm, 04/10/22 22:50:00 CDT, Height, 74.7, kg, 04/10/22 22:50:00 CDT, Weight docusate 2021-06 Yes 100 mg = 1 Mem oria sodium 100 0-26 cap, PO, l mg oral 17:52: Daily, 0 [place] n capsule 00 Refill(s) allopurinol 2021-06 Yes 300 mg = 1 [place] 300 mg oral 0-26 tab, PO, l tablet 17:52: Daily, # [place] 00 30 tab, 0 Refill(s), Pharmacy: [facility], 162.56, cm, 04/10/22 22:50:00 CDT, [...] Man 00 30 tab, 0 Refill(s), Pharmacy: [facility], 162.56, cm, 04/10/22 22:50:00 CDT, Height, 74.7, kg, 04/10/22 22:50:00 CDT, Weight docusate 2021-06 Yes 100 mg = 1 Mem oria sodium 100 0-26 cap, PO, l mg oral 17:52: Daily, 0 [place] n capsule 00 Refill(s) allopurinol 2021-06 Yes 300 mg = 1 [place] 300 mg oral 0-26 tab, PO, l tablet 17:52: Daily, # [place] 00 30 tab, 0 Refill(s), Pharmacy: [facility], 162.56, cm, 04/10/22 22:50:00 CDT, Height, 74.7, kg, 04/10/22 22:50:00 CDT, Weight docusate 2021-06 Yes 100 mg = 1 Mem oria sodium 100 0-26 cap, PO, l mg oral 17:52: Daily, 0 [place] n capsule 00 Refill(s) allopurinol 2021-06 Yes 300 mg = 1 [place] 300 mg oral 0-26 tab, PO, l tablet 17:52: Daily, # [place] 00 30 tab, 0 Refill(s), Pharmacy: [facility], 162.56, cm, 04/10/22 22:50:00 CDT, [...] Man 00 30 tab, 0 Refill(s), Pharmacy: [facility], 162.56, cm, 04/10/22 22:50:00 CDT, Height, 74.7, kg, 04/10/22 22:50:00 CDT, Weight docusate 2021-06 Yes 100 mg = 1 Mem oria sodium 100 0-26 cap, PO, l mg oral 17:52: Daily, 0 [place] n capsule 00 Refill(s) allopurinol 2021-06 Yes 300 mg = 1 [place] 300 mg oral 0-26 tab, PO, l tablet 17:52: Daily, # [place] 00 30 tab, 0 Refill(s), Pharmacy: [facility], 162.56, cm, 04/10/22 22:50:00 CDT, [...] Man 00 30 tab, 0 Refill(s), Pharmacy: [facility], 162.56, cm, 04/10/22 22:50:00 CDT, [...] Man 00 30 tab, 0 Refill(s), Pharmacy: [facility] 5246, 162.56, cm, 04/10/22 22:50:00 CDT, Height, [...] Man 00 30 tab, 0 Refill(s), Pharmacy: [facility] 5246, 162.56, cm, 04/10/22 22:50:00 CDT, Height, 74.7, kg, 04/10/22 22:50:00 CDT, Weight docusate 2021-06 Yes 100 mg = 1 Mem oria sodium 100 0-26 cap, PO, l mg oral 17:52: Daily, 0 Michael n capsule 00 Refill(s) allopurinol 2021-06 Yes 300 mg = 1 Memoria 300 mg oral 0-26 tab, PO, l tablet 17:52: Daily, # Girard 00 30 tab, 0 Refill(s), Pharmacy: [facility] 5246, 162.56, cm, 04/10/22 22:50:00 CDT, [...] Man 00 30 tab, 0 Refill(s), Pharmacy: [facility] 5246, 162.56, cm, 04/10/22 22:50:00 CDT, Height, 74.7, kg, 04/10/22 22:50:00 CDT, Weight docusate 2021-06 Yes 100 mg = 1 Mem oria sodium 100 0-26 cap, PO, l mg oral 17:52: Daily, 0 Michael n capsule 00 Refill(s) allopurinol 2021-06 Yes 300 mg = 1 Memoria 300 mg oral 0-26 tab, PO, l tablet 17:52: Daily, # Girard 00 30 tab, 0 Refill(s), Pharmacy: [facility] 5246, 162.56, cm, 04/10/22 22:50:00 CDT, Height, 74.7, kg, 04/10/22 22:50:00 CDT, Weight docusate 2021-06 Yes 100 mg = 1 Mem oria sodium 100 0-26 cap, PO, l mg oral 17:52: Daily, 0 Michael n capsule 00 Refill(s) MiraLax 2021-06 Yes Notes: Memoria 0-16 Dissolve l 14:00: in 8 oz of Girard 00 water or juice. (Same as: Miralax) docusate 2021-06 Yes Notes: Memoria 0-16 (Same as: l 14:00: Colace) Man 00 (Do Not Crush) MiraLax 2021-06 Yes Notes: Memoria 0-16 Dissolve l 14:00: in 8 oz of Girard 00 water or juice. (Same as: Miralax) docusate 2021-06 Yes Notes: Memoria 0-16 (Same as: l 14:00: Colace) Girard 00 (Do Not Crush) MiraLax 2021-06 Yes Notes: Memoria 0-16 Dissolve l 14:00: in 8 oz of Girard 00 water or juice. (Same as: Miralax) docusate 2021-06 Yes Notes: Memoria 0-16 (Same as: l 14:00: Colace) Man 00 (Do Not Crush) MiraLax 2021-06 Yes Notes: Memoria 0-16 Dissolve l 14:00: in 8 oz of Girard 00 water or juice. (Same as: Miralax) docusate 2021-06 Yes Notes: Memoria 0-16 (Same as: l 14:00: Colace) Man 00 (Do Not Crush) MiraLax 2021-06 Yes Notes: Memoria 0-16 Dissolve l 14:00: in 8 oz of Man 00 water or juice. (Same as: Miralax) docusate 2021-06 Yes Notes: Memoria 0-16 (Same as: l 14:00: Colace) Girard 00 (Do Not Crush) MiraLax 2021-06 Yes Notes: Memoria 0-16 Dissolve l 14:00: in 8 oz of Girard 00 water or juice. (Same as: Miralax) docusate 2021-06 Yes Notes: Memoria 0-16 (Same as: l 14:00: Colace) Girard 00 (Do Not Crush) MiraLax 2021-06 Yes Notes: Memoria 0-16 Dissolve l 14:00: in 8 oz of Girard 00 water or juice. (Same as: Miralax) docusate 2021-06 Yes Notes: Memoria 0-16 (Same as: l 14:00: Colace) Girard 00 (Do Not Crush) MiraLax 2021-06 Yes Notes: Memoria 0-16 Dissolve l 14:00: in 8 oz of Man 00 water or juice. (Same as: Miralax) docusate 2021-06 Yes Notes: Memoria 0-16 (Same as: l 14:00: Colace) Girard 00 (Do Not Crush) MiraLax 2021-06 Yes Notes: Memoria 0-16 Dissolve l 14:00: in 8 oz of Man 00 water or juice. (Same as: Miralax) docusate 2021-06 Yes Notes: Memoria 0-16 (Same as: l 14:00: Colace) Man 00 (Do Not Crush) MiraLax 2021-06 Yes Notes: Memoria 0-16 Dissolve l 14:00: in 8 oz of Girard 00 water or juice. (Same as: Miralax) docusate 2021-06 Yes Notes: Memoria 0-16 (Same as: l 14:00: Colace) Girard 00 (Do Not Crush) MiraLax 2021-06 Yes Notes: Memoria 0-16 Dissolve l 14:00: in 8 oz of Girard 00 water or juice. (Same as: Miralax) docusate 2021-06 Yes Notes: Memoria 0-16 (Same as: l 14:00: Colace) Man 00 (Do Not Crush) MiraLax 2021-06 Yes Notes: Memoria 0-16 Dissolve l 14:00: in 8 oz of Girard 00 water or juice. (Same as: Miralax) [...] Dissolve l 14:00: in 8 oz of Girard 00 water or juice. (Same as: Miralax) docusate 2021-06 Yes Notes: Memoria 0-16 (Same as: l 14:00: Colace) Man 00 (Do Not Crush) MiraLax 2021-06 Yes Notes: Memoria 0-16 Dissolve l 14:00: in 8 oz of Man 00 water or juice. (Same as: Miralax) docusate 2021-06 Yes Notes: Memoria 0-16 (Same as: l 14:00: Colace) Girard 00 (Do Not Crush) MiraLax 2021-06 Yes Notes: Memoria 0-16 Dissolve l 14:00: in 8 oz of Man 00 water or juice. (Same as: Miralax) docusate 2021-06 Yes Notes: Memoria 0-16 (Same as: l 14:00: Colace) Girard 00 (Do Not Crush) Dulcolax 2021-06 Yes Notes: Memoria Laxative 0-15 (Same As: l 18:16: Dulcolax, Man 00 Bisco-Lax) Dulcolax 2021-06 Yes Notes: Memoria Laxative 0-15 (Same As: l 18:16: Dulcolax, Man 00 Bisco-Lax) Dulcolax 2021-06 Yes Notes: Memoria Laxative 0-15 (Same As: l 18:16: Dulcolax, Man 00 Bisco-Lax) Dulcolax 2021-06 Yes Notes: Memoria Laxative 0-15 (Same As: l 18:16: Dulcolax, Girard 00 Bisco-Lax) Dulcolax 2021-06 Yes Notes: Memoria Laxative 0-15 (Same As: l 18:16: Dulcolax, Man 00 Bisco-Lax) Dulcolax 2021-06 Yes Notes: Memoria Laxative 0-15 (Same As: l 18:16: Dulcolax, Girard 00 Bisco-Lax) Dulcolax 2021-06 Yes Notes: Memoria Laxative 0-15 (Same As: l 18:16: Dulcolax, Girard 00 Bisco-Lax) Dulcolax 2021-06 Yes Notes: Memoria Laxative 0-15 (Same As: l 18:16: Dulcolax, Girard 00 Bisco-Lax) Dulcolax 2021-06 Yes Notes: Memoria Laxative 0-15 (Same As: l 18:16: Dulcolax, Man 00 Bisco-Lax) Dulcolax 2021-06 Yes Notes: Memoria Laxative 0-15 (Same As: l 18:16: Dulcolax, Man 00 Bisco-Lax) Dulcolax 2021-06 Yes Notes: Memoria Laxative 0-15 (Same As: l 18:16: Dulcolax, Girard 00 Bisco-Lax) Dulcolax 2021-06 Yes Notes: Memoria Laxative 0-15 (Same As: l 18:16: Dulcolax, Man 00 Bisco-Lax) Dulcolax 2021-06 Yes Notes: Memoria Laxative 0-15 (Same As: l 18:16: Dulcolax, Man 00 Bisco-Lax) Dulcolax 2021-06 Yes Notes: Memoria Laxative 0-15 (Same As: l 18:16: Dulcolax, Man 00 Bisco-Lax) Dulcolax 2021-06 Yes Notes: Memoria Laxative 0-15 (Same As: l 18:16: Dulcolax, Girard 00 Bisco-Lax) Dulcolax 2021-06 Yes Notes: Memoria Laxative 0-15 (Same As: l 18:16: Dulcolax, Man 00 Bisco-Lax) Dulcolax 2021-06 No Notes: Memoria Laxative 0-15 (Same As: l 18:14: Dulcolax, Girard 00 Correctol) (Do Not Crush) "Do Not Crush" MiraLax 2021-06 No Notes: Memoria 0-15 Dissolve l 18:14: in 8 oz of Girard 00 water or juice. (Same as: Miralax) Dulcolax 2021-06 No Notes: Memoria Laxative 0-15 (Same As: l 18:14: Dulcolax, Man 00 Correctol) (Do Not Crush) "Do Not Crush" MiraLax 2021-06 No Notes: Memoria 0-15 Dissolve l 18:14: in 8 oz of Man 00 water or juice. (Same as: Miralax) Dulcolax 2021-06 No Notes: Memoria Laxative 0-15 (Same As: l 18:14: Dulcolax, Girard 00 Correctol) (Do Not Crush) "Do Not Crush" MiraLax 2021-06 No Notes: Memoria 0-15 Dissolve l 18:14: in 8 oz of Girard 00 water or juice. (Same as: Miralax) Dulcolax 2021-06 No Notes: Memoria Laxative 0-15 (Same As: l 18:14: Dulcolax, Girard 00 Correctol) (Do Not Crush) "Do Not Crush" MiraLax 2021-06 No Notes: Memoria 0-15 Dissolve l 18:14: in 8 oz of Man 00 water or juice. (Same as: Miralax) Dulcolax 2021-06 No Notes: Memoria Laxative 0-15 (Same As: l 18:14: Dulcolax, Man 00 Correctol) (Do Not Crush) "Do Not Crush" MiraLax 2021-06 No Notes: Memoria 0-15 Dissolve l 18:14: in 8 oz of Girard 00 water or juice. (Same as: Miralax) Dulcolax 2021-06 No Notes: Memoria Laxative 0-15 (Same As: l 18:14: Dulcolax, Girard 00 Correctol) (Do Not Crush) "Do Not Crush" MiraLax 2021-06 No Notes: Memoria 0-15 Dissolve l 18:14: in 8 oz of Girard 00 water or juice. (Same as: Miralax) [...] Dissolve l 18:14: in 8 oz of Girard 00 water or juice. (Same as: Miralax) Dulcolax 2021-06 No Notes: Memoria Laxative 0-15 (Same As: l 18:14: Dulcolax, Man 00 Correctol) (Do Not Crush) "Do Not Crush" MiraLax 2021-06 No Notes: Memoria 0-15 Dissolve l 18:14: in 8 oz of Girard 00 water or juice. (Same as: Miralax) Dulcolax 2021-06 No Notes: Memoria Laxative 0-15 (Same As: l 18:14: Dulcolax, Man 00 Correctol) (Do Not Crush) "Do Not Crush" MiraLax 2021-06 No Notes: Memoria 0-15 Dissolve l 18:14: in 8 oz of Girard 00 water or juice. (Same as: Miralax) [...] Dissolve l 18:14: in 8 oz of Girard 00 water or juice. (Same as: Miralax) Dulcolax 2021-06 No Notes: Memoria Laxative 0-15 (Same As: l 18:14: Dulcolax, Man 00 Correctol) (Do Not Crush) "Do Not Crush" MiraLax 2021-06 No Notes: Memoria 0-15 Dissolve l 18:14: in 8 oz of Girard 00 water or juice. (Same as: Miralax) Dulcolax 2021-06 No Notes: Memoria Laxative 0-15 (Same As: l 18:14: Dulcolax, Man 00 Correctol) (Do Not Crush) "Do Not Crush" MiraLax 2021-06 No Notes: Memoria 0-15 Dissolve l 18:14: in 8 oz of Girard 00 water or juice. (Same as: Miralax) Dulcolax 2021-06 No Notes: Memoria Laxative 0-15 (Same As: l 18:14: Dulcolax, Man 00 Correctol) (Do Not Crush) "Do Not Crush" MiraLax 2021-06 No Notes: Memoria 0-15 Dissolve l 18:14: in 8 oz of Man 00 water or juice. (Same as: Miralax) Dulcolax 2021-06 No Notes: Memoria Laxative 0-15 (Same As: l 18:14: Dulcolax, Girard 00 Correctol) (Do Not Crush) "Do Not Crush" MiraLax 2021-06 No Notes: Memoria 0-15 Dissolve l 18:14: in 8 oz of Girard 00 water or juice. (Same as: Miralax) [facility]: Humble alivia 0-14 (Same l 02:00: as:Singula Man 00 ir) [facility]2021-06 Yes Notes: Humble alivia 0-14 (Same l 02:00: as:Singula Girard 00 ir) [facility]2021-06 Yes Notes: Humble alivia 0-14 (Same l 02:00: as:Singula Man 00 ir) [facility]2021-06 Yes Notes: Humble alivia 0-14 (Same l 02:00: as:Singula Girard 00 ir) [facility]2021-06 Yes Notes: Humble alivia 0-14 (Same l 02:00: as:Singula Girard 00 ir) [facility]2021-06 Yes Notes: Humble alivia 0-14 (Same l 02:00: as:Singula Man 00 ir) [facility]2021-06 Yes Notes: Humble alivia 0-14 (Same l 02:00: as:Singula Girard 00 ir) [facility]2021-06 Yes Notes: [place] alivia 0-14 (Same l 02:00: as:Singula Girard 00 ir) [facility]2021-06 Yes Notes: Humble alivia 0-14 (Same l 02:00: as:Singula Girard 00 ir) [facility] 2021-06 Yes Notes: Humble alivia 0-14 (Same l 02:00: as:Singula Man 00 ir) [facility] 2021-06 Yes Notes: Humble alivia 0-14 (Same l 02:00: as:Singula Man ir) montelukast 2021-06 Yes Notes: Humble alivia 0-14 (Same l 02:00: as:Singula Girard ir) montelukast 2021-06 Yes Notes: Humble alivia 0-14 (Same l 02:00: as:Singula Man ir) montelukast 2021-06 Yes Notes: Humble alivia 0-14 (Same l 02:00: as:Singula Girard ir) montelukast 2021-06 Yes Notes: Humble alivia 0-14 (Same l 02:00: as:Singula Man ir) montelukast 2021-06 Yes Notes: Humble alivia 0-14 (Same l 02:00: as:Singula Man ir) guaiFENesin 2021-06 Yes Notes: Humble alivia [...] Duration: 30 day, Stop date: 05/10/22 17:00:00 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, 0 amLODIPine 2021-06 Yes Notes: Memor ia [...] alivia 0-13 (Same as: l 14:00: Guaifenesi Girard 00 n [place], Humibid LA, Mucinex) "Do Not Crush" Take medication with plenty of water. acetic acid 2021-06 Yes 5 drp, Humble alivia otic 2% 0-13 Route: l solution 14:00: BOTH EARS, Her swanson 00 Drug Form: SOLN, Dosing Weight 74.7, kg, TID, Start date: 04/11/22 9:00:00 CDT, Duration: 30 day, Stop date: 05/10/22 17:00:00 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, 0 amLODIPine 2021-06 Yes Notes: Memor ia 0-13 (Same as: l 14:00: Norvasc) famotidine 2021-06 Yes Notes: Memor ia 20 mg oral 0-13 (Same as: l tablet 14:00: Pepcid) hydrochloro 2021-06 Yes Notes: Humble alivia thiazide 0-13 (Same as: l 14:00: Hydrodiuri Girard 00 l). Give with food. sucralfate 2021-06 Yes Notes: Jyotsna Clifford emoria 0-13 interfere l 14:00: w/enteral feeds [...] Duration: 30 day, Stop date: 05/10/22 17:00:00 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, 0 amLODIPine 2021-06 Yes Notes: Memor ia 0-13 (Same as: l 14:00: Norvasc) famotidine 2021-06 Yes Notes: Memor ia 20 mg oral 0-13 (Same as: l tablet 14:00: Pepcid) hydrochloro 2021-06 Yes Notes: Humble alivia thiazide 0-13 (Same as: l 14:00: Hydrodiuri Girard l). Give with food. sucralfate 2021-06 Yes Notes: October M emoria 0-13 interfere l 14:00: w/enteral Man 00 feeds - Take 1 hr before [...] Duration: 30 day, Stop date: 05/10/22 17:00:00 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, 0 amLODIPine 2021-06 Yes Notes: Memor ia 0-13 (Same as: l 14:00: Norvasc) famotidine 2021-06 Yes Notes: Memor ia 20 mg oral 0-13 (Same as: l tablet 14:00: Pepcid) hydrochloro 2021-06 Yes Notes: Humble alivia thiazide 0-13 (Same as: l 14:00: Hydrodiuri Man l). Give with food. sucralfate 2021-06 Yes Notes: October M emoria 0-13 interfere l 14:00: w/enteral Man feeds - Take 1 hr before or 2 hr after antacids, dairy pdt, meals & minerals - On empty stomach. For patients unable to swallow tablet, dissolve in 10mL - 30mL of water or juice and stir before giving. (Same As: Carafate) guaiFENesin 2021-06 Yes Notes: Humble alivia 0-13 (Same as: l 14:00: Guaifenesi Girard 00 n [place], Humibid LA, Mucinex) "Do Not Crush" Take medication with plenty of water. acetic acid 2021-06 Yes 5 drp, Humble alivia otic 2% 0-13 Route: l solution 14:00: BOTH EARS, Her swanson 00 Drug Form: SOLN, Dosing Weight 74.7, kg, TID, Start date: 04/11/22 9:00:00 CDT, Duration: 30 day, Stop date: 05/10/22 17:00:00 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, 0 amLODIPine 2021-06 Yes Notes: Memor ia 0-13 (Same as: l 14:00: Norvasc) guaiFENesin 2021-06 Yes Notes: Humble alivia 0-13 (Same as: l 14:00: Guaifenesi Man n LA, Humibid LA, Mucinex) "Do Not Crush" Take medication with plenty of water. acetic acid 2021-06 Yes 5 drp, Humble alivia otic 2% 0-13 Route: l solution 14:00: BOTH EARS, Her swanson 00 Drug Form: SOLN, Dosing Weight 74.7, kg, TID, Start date: 04/11/22 9:00:00 CDT, Duration: 30 day, Stop date: 05/10/22 17:00:00 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, 0 amLODIPine 2021-06 Yes Notes: Memor ia 0-13 (Same as: l 14:00: Norvasc) famotidine 2021-06 Yes Notes: Memor ia 20 mg oral 0-13 (Same as: l tablet 14:00: Pepcid) hydrochloro 2021-06 Yes Notes: Humble alivia thiazide 0-13 (Same as: l 14:00: Hydrodiuri Girard l). Give with food. sucralfate 2021-06 Yes Notes: October emoria 0-13 interfere l 14:00: w/enteral Man 00 feeds - Take 1 hr before or 2 hr after antacids, dairy pdt, meals & minerals - On empty stomach. For patients unable to swallow tablet, dissolve in 10mL - 30mL of water or juice and stir before giving. (Same As: Carafate) famotidine 2021-06 Yes Notes: Memor ia 20 mg oral 0-13 (Same as: l tablet 14:00: Pepcid) hydrochloro 2021-06 Yes Notes: Humble alivia thiazide 0-13 (Same as: l 14:00: Hydrodiuri Man 00 l). Give with food. guaiFENesin 2021-06 Yes Notes: Humble alivia 0-13 [...] Duration: 30 day, Stop date: 05/10/22 17:00:00 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, 0 amLODIPine 2021-06 Yes Notes: Memor ia 0-13 (Same as: l 14:00: Norvasc) famotidine 2021-06 Yes Notes: Memor ia 20 mg oral 0-13 (Same as: l tablet 14:00: Pepcid) hydrochloro 2021-06 Yes Notes: Humble alivia thiazide 0-13 (Same as: l 14:00: Hydrodiuri l). Give with food. sucralfate 2021-06 Yes Notes: October emoria 0-13 interfere l 14:00: w/enteral Girard 00 feeds - Take 1 hr before or 2 hr after antacids, dairy pdt, meals & minerals - On empty stomach. For patients unable to swallow tablet, dissolve in 10mL - 30mL of water or juice and stir before giving. (Same As: Carafate) sucralfate 2021-06 Yes Notes: October emoria 0-13 interfere l 14:00: w/enteral Girard 00 feeds - Take 1 hr before [...] Duration: 30 day, Stop date: 05/10/22 17:00:00 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, 0 amLODIPine 2021-06 Yes Notes: Memor ia 0-13 (Same as: l 14:00: Norvasc) famotidine 2021-06 Yes Notes: Memor ia 20 mg oral 0-13 (Same as: l tablet 14:00: Pepcid) hydrochloro 2021-06 Yes Notes: Humble alivia thiazide 0-13 (Same as: l 14:00: Hydrodiuri Girard 00 l). Give with food. sucralfate 2021-06 Yes Notes: October emoria 0-13 interfere l 14:00: w/enteral Girard 00 feeds - Take 1 hr before [...] acetic acid 2021-06 Yes 5 drp, Humble alivai otic 2% 0-13 Route: l solution 14:00: BOTH EARS, Her swanson 00 Drug Form: SOLN, Dosing Weight 74.7, kg, TID, Start date: 04/11/22 9:00:00 CDT, Duration: 30 day, Stop date: 05/10/22 17:00:00 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, 0 amLODIPine 2021-06 Yes Notes: Memor ia [...] Duration: 30 day, Stop date: 05/10/22 17:00:00 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, 0 amLODIPine 2021-06 Yes Notes: Memor ia 0-13 (Same as: l 14:00: Norvasc) famotidine 2021-06 Yes Notes: Memor ia 20 mg oral 0-13 (Same as: l tablet 14:00: Pepcid) hydrochloro 2021-06 Yes Notes: Humble alivia thiazide 0-13 (Same as: l 14:00: Hydrodiuri Girard 00 l). Give with food. sucralfate 2021-06 Yes Notes: October M emoria 0-13 interfere l 14:00: w/enteral Girard 00 feeds - Take 1 hr before [...] Duration: 30 day, Stop date: 05/10/22 17:00:00 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, 0 amLODIPine 2021-06 Yes Notes: Memor ia 0-13 (Same as: l 14:00: Norvasc) famotidine 2021-06 Yes Notes: Memor ia 20 mg oral 0-13 (Same as: l tablet 14:00: Pepcid) hydrochloro 2021-06 Yes Notes: Humble alivia thiazide 0-13 (Same as: l 14:00: Hydrodiuri Man 00 l). Give with food. sucralfate 2021-06 Yes Notes: October M emoria 0-13 interfere l 14:00: w/enteral Man 00 feeds - Take 1 hr before or 2 hr after antacids, dairy pdt, meals & minerals - On empty stomach. For patients unable to swallow tablet, dissolve in 10mL - 30mL of water or juice and stir before giving. (Same As: Carafate) guaiFENesin 2021-06 Yes Notes: Humble alivia 0-13 (Same as: l 14:00: Guaifenesi Girard 00 n [place], Humibid LA, Mucinex) "Do Not Crush" Take medication with plenty of water. acetic acid 2021-06 Yes 5 drp, Humble alivia otic 2% 0-13 Route: l solution 14:00: BOTH EARS, Her swanson 00 Drug Form: SOLN, Dosing Weight 74.7, kg, TID, Start date: 04/11/22 9:00:00 CDT, Duration: 30 day, Stop date: 05/10/22 17:00:00 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, 0 amLODIPine 2021-06 Yes Notes: Memor ia 0-13 (Same as: l 14:00: Norvasc) famotidine 2021-06 Yes Notes: Memor ia 20 mg oral 0-13 (Same as: l tablet 14:00: Pepcid) hydrochloro 2021-06 Yes Notes: Humble alivia thiazide 0-13 (Same as: l 14:00: Hydrodiuri Man 00 l). Give with food. sucralfate 2021-06 Yes Notes: May emoria 0-13 interfere l 14:00: w/enteral feeds [...] Duration: 30 day, Stop date: 05/10/22 17:00:00 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, 0 amLODIPine 2021-06 Yes Notes: Memor ia 0-13 (Same as: l 14:00: Norvasc) famotidine 2021-06 Yes Notes: Memor ia 20 mg oral 0-13 (Same as: l tablet 14:00: Pepcid) hydrochloro 2021-06 Yes Notes: Humble alivia thiazide 0-13 (Same as: l 14:00: Hydrodiuri Girard l). Give with food. sucralfate 2021-06 Yes Notes: October emoria 0-13 interfere l 14:00: w/enteral Man 00 feeds - Take 1 hr before [...] Duration: 30 day, Stop date: 05/10/22 17:00:00 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, 0 amLODIPine 2021-06 Yes Notes: Memor ia 0-13 (Same as: l 14:00: Norvasc) famotidine 2021-06 Yes Notes: Memor ia 20 mg oral 0-13 (Same as: l tablet 14:00: Pepcid) hydrochloro 2021-06 Yes Notes: Humble alivia thiazide 0-13 (Same as: l 14:00: Hydrodiuri Girard l). Give with food. sucralfate 2021-06 Yes Notes: October emoria 0-13 interfere l 14:00: w/enteral Girard 00 feeds - Take 1 hr before or 2 hr after antacids, dairy pdt, meals & minerals - On empty stomach. For patients unable to swallow tablet, dissolve in 10mL - 30mL of water or juice and stir before giving. (Same As: Carafate) guaiFENesin 2021-06 Yes Notes: Humble alivia 0-13 (Same as: l 14:00: Guaifenesi Mna 00 n [place], Humibid LA, Mucinex) "Do Not Crush" Take medication with plenty of water. acetic acid 2021-06 Yes 5 drp, Humble alivia otic 2% 0-13 Route: l solution 14:00: BOTH EARS, Her swanson 00 Drug Form: SOLN, Dosing Weight 74.7, kg, TID, Start date: 04/11/22 9:00:00 CDT, Duration: 30 day, Stop date: 05/10/22 17:00:00 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, 0 amLODIPine 2021-06 Yes Notes: Memor ia [...] alivia 0-13 (Same as: l 14:00: Guaifenesi Girard 00 n [place], Humibid [place], Mucinex) "Do Not Crush" Take medication with plenty of water. acetic acid 2021-06 Yes 5 drp, Humble alivia otic 2% 0-13 Route: l solution 14:00: BOTH EARS, Her swanson 00 Drug Form: SOLN, Dosing Weight 74.7, kg, TID, Start date: 04/11/22 9:00:00 CDT, Duration: 30 day, Stop date: 05/10/22 17:00:00 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, 0 amLODIPine 2021-06 Yes Notes: Memor ia 0-13 (Same as: l 14:00: Norvasc) Man 00 famotidine 2021-06 Yes Notes: Memor ia 20 mg oral 0-13 (Same as: l tablet 14:00: Pepcid) Man 00 hydrochloro 2021-06 Yes Notes: Humble alivia thiazide 0-13 (Same as: l 14:00: Hydrodiuri Girard 00 l). Give with food. sucralfate 2021-06 Yes Notes: May M emoria 0-13 interfere l 14:00: w/enteral Man 00 feeds - Take 1 hr before or 2 hr after antacids, dairy pdt, meals & minerals - On empty stomach. For patients unable to swallow tablet, dissolve in 10mL - 30mL of water or juice and stir before giving. (Same As: Carafate) pantoprazol 2021-06 Yes Notes: Humble alivia e 0-13 Tablet l 12:30: should not Girard 00 be chewed or crushed. (Same as: Protonix) pantoprazol 2021-06 Yes Notes: Humble alivia e 0-13 Tablet l 12:30: should not Girard 00 be chewed or crushed. (Same as: Protonix) pantoprazol 2021-06 Yes Notes: Humble alivia e 0-13 Tablet l 12:30: should not Man 00 be chewed or crushed. (Same as: Protonix) pantoprazol 2021-06 Yes Notes: Humble alivia e 0-13 Tablet l 12:30: should not Girard 00 be chewed or crushed. (Same as: Protonix) pantoprazol 2021-06 Yes Notes: Humble alivia e 0-13 Tablet l 12:30: should not Man 00 be chewed or crushed. (Same as: Protonix) pantoprazol 2021-06 Yes Notes: Humble alivia e 0-13 Tablet l 12:30: should not Girard 00 be chewed or crushed. (Same as: Protonix) pantoprazol 2021-06 Yes Notes: Humble alivia e 0-13 Tablet l 12:30: should not Girard 00 be chewed or crushed. (Same as: Protonix) pantoprazol 2021-06 Yes Notes: Humble alivia e 0-13 Tablet l 12:30: should not Girard 00 be chewed or crushed. (Same as: [...] e 0-13 Tablet l 12:30: should not Girard 00 be chewed or crushed. (Same as: Protonix) pantoprazol 2021-06 Yes Notes: Humble alivia e 0-13 Tablet l 12:30: should not Girard 00 be chewed or crushed. (Same as: Protonix) pantoprazol 2021-06 Yes Notes: Humble alivia e 0-13 Tablet l 12:30: should not Girard 00 be chewed or crushed. (Same as: Protonix) pantoprazol 2021-06 Yes Notes: Humble alivia e 0-13 Tablet l 12:30: should not Girard 00 be chewed or crushed. (Same as: Protonix) pantoprazol 2021-06 Yes Notes: Humble alivia e 0-13 Tablet l 12:30: should not Girard 00 be chewed or crushed. (Same as: Protonix) budesonide 2021-06 Yes Notes: Memor ia 0.25 mg/2 0-13 (Same As: l mL 05:07: Pulmicort Man inhalation 00 respule). suspension budesonide 2021-06 Yes Notes: Memor ia 0.25 mg/2 0-13 (Same As: l mL 05:07: Pulmicort Man inhalation 00 respule). suspension budesonide 2021-06 Yes Notes: [facility] 0.25 mg/2 0-13 (Same As: l mL 05:07: Pulmicort Girard inhalation 00 respule). suspension budesonide 2021-06 Yes Notes: [facility] 0.25 mg/2 0-13 (Same As: l mL 05:07: Pulmicort Girard inhalation 00 respule). suspension budesonide 2021-06 Yes Notes: [facility] 0.25 mg/2 0-13 (Same As: l mL 05:07: Pulmicort Man inhalation 00 respule). suspension budesonide 2021-06 Yes Notes: [facility] 0.25 mg/2 0-13 (Same As: l mL 05:07: Pulmicort [place]ard inhalation 00 respule). suspension budesonide 2021-06 Yes Notes: [facility] 0.25 mg/2 0-13 (Same As: l mL 05:07: Pulmicort Man inhalation 00 respule). suspension budesonide 2021-06 Yes Notes: [facility] 0.25 mg/2 0-13 (Same As: l mL 05:07: Pulmicort [place]ard inhalation 00 respule). suspension budesonide 2021-06 Yes Notes: [facility] 0.25 mg/2 0-13 (Same As: l mL 05:07: Pulmicort Girard inhalation 00 respule). suspension budesonide 2021-06 Yes Notes: [facility] 0.25 mg/2 0-13 (Same As: l mL 05:07: Pulmicort Man inhalation 00 respule). suspension budesonide 2021-06 Yes Notes: [facility] 0.25 mg/2 0-13 (Same As: l mL 05:07: Pulmicort Man inhalation 00 respule). suspension budesonide 2021-06 Yes Notes: [facility] 0.25 mg/2 0-13 (Same As: l mL 05:07: Pulmicort [place]ard inhalation 00 respule). suspension budesonide 2021-06 Yes Notes: [facility] 0.25 mg/2 0-13 (Same As: l mL 05:07: Pulmicort Man inhalation 00 respule). suspension budesonide 2021-06 Yes Notes: Memor ia 0.25 mg/2 0-13 (Same As: l mL 05:07: Pulmicort Girard inhalation 00 respule). suspension budesonide 2021-06 Yes Notes: Memor ia 0.25 mg/2 0-13 (Same As: l mL 05:07: Pulmicort Man inhalation 00 respule). suspension budesonide 2021-06 Yes Notes: Memor ia 0.25 mg/2 0-13 (Same As: l mL 05:07: Pulmicort Man inhalation 00 respule). suspension benzonatate 2021-06 Yes Notes: Humble alivia 0-13 (Same As: l 05:01: Tessalon Girard 00 Perles) "Do Not Crush" benzonatate 2021-06 Yes Notes: Humble alivia 0-13 (Same As: l 05:01: Tessalon Man 00 Perles) "Do Not Crush" benzonatate 2021-06 Yes Notes: Humble alivia 0-13 (Same As: l 05:01: Tessalon Girard 00 Perles) "Do Not Crush" benzonatate 2021-06 Yes Notes: Humble alivia 0-13 (Same As: l 05:01: Tessalon Girard 00 Perles) "Do Not Crush" benzonatate 2021-06 Yes Notes: Humble alivia 0-13 (Same As: l 05:01: Tessalon Man 00 Perles) "Do Not Crush" benzonatate 2021-06 Yes Notes: Humble alivia 0-13 (Same As: l 05:01: Tessalon Man 00 Perles) "Do Not Crush" benzonatate 2021-06 Yes Notes: Humble alivia 0-13 (Same As: l 05:01: Tessalon Girard 00 Perles) "Do Not Crush" benzonatate 2021-06 Yes Notes: Humble alivia 0-13 (Same As: l 05:01: Tessalon Man 00 Perles) "Do Not Crush" benzonatate 2021-06 Yes Notes: Humble alivia 0-13 (Same As: l 05:01: Tessalon Girard 00 Perles) "Do Not Crush" benzonatate 2021-06 [...] alivia 0-13 (Same As: l 05:01: Tessalon Girard 00 Perles) "Do Not Crush" benzonatate 2021-06 Yes Notes: Humble alivia 0-13 (Same As: l 05:01: Tessalon Girard 00 Perles) "Do Not Crush" benzonatate 2021-06 Yes Notes: Humble alivia 0-13 (Same As: l 05:01: Tessalon Man Perles) "Do Not Crush" influenza 2021-06 Yes [...] alivia 0-13 (Same as: l 04:38: Guaifenesi Girard 00 n [place], Humibid [place], Mucinex) "Do Not Crush" Take medication with plenty of water. [facility] 2021-06 No Notes: Humble alivia 0-13 (Same as: l 04:38: Guaifenesi Man 00 n [place], Humibid [place], Mucinex) "Do Not Crush" Take medication with plenty of water. [facility] 2021-06 No Notes: Humble alivia 0-13 (Same as: l 04:38: Guaifenesi Man 00 n [place], Humibid [place], Mucinex) "Do Not Crush" Take medication with plenty of water. [facility] 2021-06 No Notes: Humble alivia 0-13 (Same as: l 04:38: Guaifenesi Man 00 n [place], Humibid [place], Mucinex) "Do Not Crush" Take medication with plenty of water. [facility] 2021-06 No Notes: Humble alivia 0-13 (Same as: l 04:38: Guaifenesi Man 00 n [place], Humibid [place], Mucinex) "Do Not Crush" Take medication with plenty of water. [facility] 2021-06 No Notes: Humble alivia 0-13 (Same as: l 04:38: Guaifenesi Man 00 n [place], Humibid [place], Mucinex) "Do Not Crush" Take medication with plenty of water. [facility] 2021-06 No Notes: Humble alivia 0-13 (Same as: l 04:38: Guaifenesi Girard 00 n [place], Humibid [place], Mucinex) "Do Not Crush" Take medication with plenty of water. [facility] 2021-06 No Notes: Humble alivia 0-13 (Same as: l 04:38: Guaifenesi Girard 00 n [place], Humibid [place], Mucinex) "Do Not Crush" Take medication with plenty of water. [facility] 2021-06 No Notes: Humble alivia 0-13 (Same as: l 04:38: Guaifenesi Man 00 n [place], Humibid [place], Mucinex) "Do Not Crush" Take medication with plenty of water. [facility] 2021-06 No Notes: Humble alivia 0-13 (Same as: l 04:38: Guaifenesi Man 00 n [place], Humibid [place], Mucinex) "Do Not Crush" Take medication with plenty of water. [facility] 2021-06 No Notes: Humble alivia 0-13 (Same as: l 04:38: Guaifenesi Man 00 n [place], Humibid [place], Mucinex) "Do Not Crush" Take medication with plenty of water. [facility] 2021-06 No Notes: Humble alivia 0-13 (Same as: l 04:38: Guaifenesi Mna 00 n [place], Humibid [place], Mucinex) "Do Not Crush" Take medication with plenty of water. [facility] 2021-06 No Notes: Humble alivia 0-13 (Same as: l 04:38: Guaifenesi Girard 00 n [place], Humibid [place], Mucinex) "Do Not Crush" Take medication with plenty of water. [facility] 2021-06 No Notes: Humble alivia 0-13 (Same as: l 04:38: Guaifenesi Man 00 n [place], Humibid [place], Mucinex) "Do Not Crush" Take medication with plenty of water. [facility] 2021-06 No Notes: Humble alivia 0-13 (Same as: l 04:38: Guaifenesi Man 00 n [place], Humibid [place], Mucinex) "Do Not Crush" Take medication with plenty of water. [facility] 2021-06 No Notes: Humble alivia 0-13 (Same as: l 04:38: Guaifenesi Girard 00 n [place], Humibid [place], Mucinex) "Do Not Crush" [facility] Memoria [facility] Same as: l 04:22: Dilaudid Man Dilaudid 2021-06 Yes Notes: Memoria 0-13 Same as: l 04:22: Dilaudid Girard Dilaudid 2021-06 Yes Notes: Memoria 0-13 Same as: l 04:22: Dilaudid Man 00 Dilaudid 2021-06 Yes Notes: Memoria 0-13 Same as: l 04:22: Dilaudid Man 00 Dilaudid 2021-06 Yes Notes: Memoria 0-13 Same as: l 04:22: Dilaudid Man 00 Dilaudid 2021-06 Yes Notes: Memoria 0-13 Same as: l 04:22: Dilaudid Man 00 Dilaudid 2021-06 Yes Notes: Memoria 0-13 Same as: l 04:22: Dilaudid Girard 00 Dilaudid 2021-06 Yes Notes: Memoria 0-13 Same as: l 04:22: Dilaudid Girard 00 Dilaudid 2021-06 Yes Notes: Memoria 0-13 Same as: l 04:22: Dilaudid Girard 00 Dilaudid 2021-06 Yes Notes: Memoria 0-13 Same as: l 04:22: Dilaudid Girard 00 Dilaudid 2021-06 Yes Notes: Memoria 0-13 Same as: l 04:22: Dilaudid Girard 00 Dilaudid 2021-06 Yes Notes: Memoria 0-13 Same as: l 04:22: Dilaudid Girard 00 Dilaudid 2021-06 Yes Notes: Memoria 0-13 Same as: l 04:22: Dilaudid Girard 00 Dilaudid 2021-06 Yes Notes: Memoria 0-13 Same as: l 04:22: Dilaudid Girard 00 Dilaudid 2021-06 Yes Notes: Memoria 0-13 Same as: l 04:22: Dilaudid Man 00 Dilaudid 2021-06 Yes Notes: Memoria 0-13 Same as: l 04:22: Dilaudid Man 00 Dilaudid 2021-06 No Notes: Memoria 0-13 Same as: l 04:19: Dilaudid Girard 00 Dilaudid 2021-06 No Notes: Memoria 0-13 Same as: l 04:19: Dilaudid Man 00 Dilaudid 2021-06 No Notes: Memoria 0-13 Same as: l 04:19: Dilaudid Man 00 Dilaudid 2021-06 No Notes: Memoria 0-13 Same as: l 04:19: Dilaudid Amn 00 Dilaudid 2021-06 No Notes: Memoria 0-13 Same as: l 04:19: Dilaudid Man Dilaudid 2021-06 No Notes: Memoria 0-13 Same as: l 04:19: Dilaudid Girard Dilaudid 2021-06 No Notes: Memoria 0-13 Same as: l 04:19: Dilaudid Man Dilaudid 2021-06 No Notes: Memoria 0-13 Same as: l 04:19: Dilaudid Girard Dilaudid 2021-06 No Notes: Memoria 0-13 Same as: l 04:19: Dilaudid Man Dilaudid 2021-06 No Notes: Memoria 0-13 Same as: l 04:19: Dilaudid Girard Dilaudid 2021-06 No Notes: Memoria 0-13 Same as: l 04:19: Dilaudid Man Dilaudid 2021-06 No Notes: Memoria 0-13 Same as: l 04:19: Dilaudid Girard Dilaudid 2021-06 No Notes: Memoria 0-13 Same as: l 04:19: Dilaudid Girard Dilaudid 2021-06 No Notes: Memoria 0-13 Same as: l 04:19: Dilaudid Girard Dilaudid 2021-06 No Notes: Memoria 0-13 Same as: l 04:19: Dilaudid Girard Dilaudid 2021-06 No Notes: Memoria 0-13 Same as: l 04:19: Dilaudid Girard omeprazole 2021-06 Yes 20 mg = 1 [...] 00 30 cap, 0 capsule Refill(s) omeprazole 2021- Yes 20 mg = 1 Me moria 20 mg oral 0-13 cap, PO, l delayed 04:18: Daily, # Michael n release 00 30 cap, 0 capsule Refill(s) omeprazole 2021- Yes 20 mg = 1 Me moria 20 mg oral 0-13 cap, PO, l delayed 04:18: Daily, # Michael n release 00 30 cap, 0 capsule Refill(s) omeprazole 2021- Yes 20 mg = 1 Me moria [...] NEB, l mL 04:17: BID, # 60 Girard inhalation 00 ea, 3 suspension Refill(s) budesonide 2021-06 Yes 0.25 mg = Me moria 0.25 mg/2 0-13 2 mL, NEB, l mL 04:17: BID, # 60 Girard inhalation 00 ea, 3 suspension Refill(s) budesonide [...] NEB, l mL 04:17: BID, # 60 Girard inhalation 00 ea, 3 suspension Refill(s) budesonide [...] NEB, l mL 04:17: BID, # 60 Girard inhalation 00 ea, 3 suspension Refill(s) budesonide 2021-06 Yes 0.25 mg = Me moria 0.25 mg/2 0-13 2 mL, NEB, l mL 04:17: BID, # 60 Girard inhalation 00 ea, 3 suspension Refill(s) budesonide 2021-06 Yes 0.25 mg = Me moria 0.25 mg/2 0-13 2 mL, NEB, l mL 04:17: BID, # 60 Girard inhalation 00 ea, 3 suspension Refill(s) budesonide 2021-06 Yes 0.25 mg = Me moria 0.25 mg/2 0-13 2 mL, NEB, l mL 04:17: BID, # 60 Man inhalation 00 ea, 3 suspension Refill(s) budesonide 2021-06 Yes 0.25 mg = Me moria 0.25 mg/2 0-13 2 mL, NEB, l mL 04:17: BID, # 60 Girard inhalation 00 ea, 3 suspension Refill(s) budesonide 2021-06 Yes 0.25 mg = Me moria 0.25 mg/2 0-13 2 mL, NEB, l mL 04:17: BID, # 60 Girard inhalation 00 ea, 3 suspension Refill(s) benzonatate [...] a propionate 0-13 microgram, l 04:13: INHALATION Girard 00 , Daily, 0 Refill(s) fluticasone 2021-06 Yes 50 Memori a propionate 0-13 microgram, l 04:13: INHALATION Man 00 , Daily, 0 Refill(s) fluticasone 2021-06 Yes 50 Memori a propionate 0-13 microgram, l 04:13: INHALATION Girard 00 , Daily, 0 Refill(s) fluticasone 2021-06 Yes 50 Memori a propionate 0-13 microgram, l 04:13: INHALATION Girard 00 , Daily, 0 Refill(s) fluticasone 2021-06 Yes 50 Memori a propionate 0-13 microgram, l 04:13: INHALATION Man , Daily, 0 Refill(s) fluticasone 2021-06 Yes 50 Memori a propionate 0-13 microgram, l 04:13: INHALATION Man , Daily, 0 Refill(s) fluticasone 2021-06 Yes 50 Memori a propionate 0-13 microgram, l 04:13: INHALATION Girard , Daily, 0 Refill(s) fluticasone 2021-06 Yes 50 Memori a propionate 0-13 microgram, l 04:13: INHALATION Girard 00 , Daily, 0 Refill(s) fluticasone 2021-06 Yes 50 Memori a propionate 0-13 microgram, l 04:13: INHALATION Girard , Daily, 0 Refill(s) fluticasone 2021-06 Yes 50 Memori a propionate 0-13 microgram, l 04:13: INHALATION Man , Daily, 0 Refill(s) fluticasone 2021-06 Yes 50 Memori a propionate 0-13 microgram, l 04:13: INHALATION Man , Daily, 0 Refill(s) fluticasone 2021-06 Yes 50 Memori a propionate 0-13 microgram, l 04:13: INHALATION Man , Daily, 0 Refill(s) fluticasone 2021-06 Yes 50 Memori a propionate 0-13 microgram, l 04:13: INHALATION Man , Daily, 0 Refill(s) fluticasone 2021-06 Yes 50 Memori a propionate 0-13 microgram, l 04:13: INHALATION Man , Daily, 0 Refill(s) fluticasone 2021-06 Yes 50 Memori a propionate 0-13 microgram, l 04:13: INHALATION Man , Daily, 0 Refill(s) acetic acid 2021-06 [...] tab, PO, l oral 04:10: Daily, # Girard enteric 00 30 tab, 0 coated Refill(s) [...] tab, PO, l oral 04:10: Daily, # Girard enteric 00 30 tab, 0 coated Refill(s) tablet pantoprazol 2021-06 Yes 40 mg = 1 M emoria e 40 mg 0-13 tab, PO, l oral 04:10: Daily, # Girard enteric 00 30 tab, 0 coated Refill(s) [...] tab, PO, l oral 04:10: Daily, # Girard enteric 00 30 tab, 0 coated Refill(s) tablet pantoprazol 2021-06 Yes 40 mg = 1 M emoria e 40 mg 0-13 tab, PO, l oral 04:10: Daily, # Man enteric 00 30 tab, 0 coated Refill(s) tablet pantoprazol 2021-06 Yes 40 mg = 1 M emoria e 40 mg 0-13 tab, PO, l oral 04:10: Daily, # Girard enteric 00 30 tab, 0 coated Refill(s) tablet pantoprazol 2021-06 Yes 40 mg = 1 M emoria e 40 mg 0-13 tab, PO, l oral 04:10: Daily, # Girard enteric 00 30 tab, 0 coated Refill(s) tablet pantoprazol 2021-06 Yes 40 mg = 1 M emoria e 40 mg 0-13 tab, PO, l oral 04:10: Daily, # Girard enteric 00 30 tab, 0 coated Refill(s) tablet pantoprazol 2021-06 Yes 40 mg = 1 M emoria e 40 mg 0-13 tab, PO, l oral 04:10: Daily, # Girard enteric 00 30 tab, 0 coated Refill(s) tablet pantoprazol 2021-06 Yes 40 mg = 1 M emoria e 40 mg 0-13 tab, PO, l oral 04:10: Daily, # Girard enteric 00 30 tab, 0 coated Refill(s) tablet pantoprazol 2021-06 Yes 40 mg = 1 M emoria e 40 mg 0-13 tab, PO, l oral 04:10: Daily, # Girard enteric 00 30 tab, 0 coated Refill(s) tablet pantoprazol 2021-06 Yes 40 mg = 1 M emoria e 40 mg 0-13 tab, PO, l oral 04:10: Daily, # Girard enteric 00 30 tab, 0 coated Refill(s) tablet amLODIPine 2021-06 Yes 5 mg = 1 Mem oria 5 mg oral 0-13 tab, PO, l tablet 04:06: Daily, # Girard 00 30 tab, 0 Refill(s) Deconex DMX 2021-06 Yes PO, Q4H, Me moria 0-13 PRN as l 04:06: needed for Girard 00 cough and congestion , 0 Refill(s) amLODIPine 2021-06 Yes 5 mg = 1 Mem oria 5 mg oral 0-13 tab, PO, l tablet 04:06: Daily, # Girard 00 30 tab, 0 Refill(s) Deconex DMX 2021-06 Yes PO, Q4H, Me moria 0-13 PRN as l 04:06: needed for Man 00 cough and congestion , 0 Refill(s) amLODIPine 2021-06 Yes 5 mg = 1 Mem oria 5 mg oral 0-13 tab, PO, l tablet 04:06: Daily, # Girard 00 30 tab, 0 Refill(s) Deconex DMX 2021-06 Yes PO, Q4H, Me moria 0-13 PRN as l 04:06: needed for Girard cough and congestion , 0 Refill(s) amLODIPine 2021-06 Yes 5 mg = 1 Mem oria 5 mg oral 0-13 tab, PO, l tablet 04:06: Daily, # Man 00 30 tab, 0 Refill(s) Deconex DMX 2021-06 Yes PO, Q4H, Me moria 0-13 PRN as l 04:06: needed for Man cough and congestion , 0 Refill(s) amLODIPine [...] tab, PO, l tablet 04:06: Daily, # Girard 00 30 tab, 0 Refill(s) Deconex DMX 2021- Yes PO, Q4H, Me moria 0-13 PRN as l 04:06: needed for Man 00 cough and congestion , 0 Refill(s) amLODIPine 2021-06 Yes 5 mg = 1 Mem oria 5 mg oral 0-13 tab, PO, l tablet 04:06: Daily, # Girard 00 30 tab, 0 Refill(s) Deconex DMX 2021-06 Yes PO, Q4H, Me moria 0-13 PRN as l 04:06: needed for Girard 00 cough and congestion , 0 Refill(s) amLODIPine 2021-06 Yes 5 mg = 1 Mem oria 5 mg oral 0-13 tab, PO, l tablet 04:06: Daily, # Girard 00 30 tab, 0 Refill(s) Deconex DMX 2021- Yes PO, Q4H, Me moria 0-13 PRN as l 04:06: needed for Girard cough and congestion , 0 Refill(s) amLODIPine 2021-06 Yes 5 mg = 1 Mem oria 5 mg oral 0-13 tab, PO, l tablet 04:06: Daily, # Man 00 30 tab, 0 Refill(s) Deconex DMX 2021-06 Yes PO, Q4H, Me moria 0-13 PRN as l 04:06: needed for Girard cough and congestion , 0 Refill(s) amLODIPine 2021-06 Yes 5 mg = 1 Mem oria 5 mg oral 0-13 tab, PO, l tablet 04:06: Daily, # Man 00 30 tab, 0 Refill(s) Deconex DMX 2021- Yes PO, Q4H, Me moria 0-13 PRN as l 04:06: needed for Man cough and congestion , 0 Refill(s) amLODIPine 2021-06 Yes 5 mg = 1 Mem oria 5 mg oral 0-13 tab, PO, l tablet 04:06: Daily, # Girard 00 30 tab, 0 Refill(s) Deconex DMX 2021- Yes PO, Q4H, Me moria 0-13 PRN as l 04:06: needed for Girard 00 cough and congestion , 0 Refill(s) amLODIPine 2021-06 Yes 5 mg = 1 Mem oria 5 mg oral 0-13 tab, PO, l tablet 04:06: Daily, # Girard 00 30 tab, 0 Refill(s) Deconex DMX 2021- Yes PO, Q4H, Me moria 0-13 PRN as l 04:06: needed for Man 00 cough and congestion , 0 Refill(s) amLODIPine 2021-06 Yes 5 mg = 1 Mem oria 5 mg oral 0-13 tab, PO, l tablet 04:06: Daily, # Girard 00 30 tab, 0 Refill(s) Deconex DMX 2021-06 Yes PO, Q4H, Me moria 0-13 PRN as l 04:06: needed for Man 00 cough and congestion , 0 Refill(s) amLODIPine 2021-06 Yes 5 mg = 1 Mem oria 5 mg oral 0-13 tab, PO, l tablet 04:06: Daily, # Girard 00 30 tab, 0 Refill(s) Deconex DMX 2021-06 Yes PO, Q4H, Me moria 0-13 PRN as l 04:06: needed for Girard 00 cough and congestion , 0 Refill(s) amLODIPine 2021-06 Yes 5 mg = 1 Mem oria 5 mg oral 0-13 tab, PO, l tablet 04:06: Daily, # Man 00 30 tab, 0 Refill(s) Deconex DMX 2021-06 Yes PO, Q4H, Me moria 0-13 PRN as l 04:06: needed for Girard 00 cough and congestion , 0 Refill(s) amLODIPine 2021-06 Yes 5 mg = 1 Mem oria 5 mg oral 0-13 tab, PO, l tablet 04:06: Daily, # Girard 00 30 tab, 0 Refill(s) Deconex DMX [...] Michael n 00 tab, 0 Refill(s) famotidine 2021- Yes 20 mg = 1 Me moria 20 mg oral 0-13 tab, PO, l tablet 04:05: BID, # 60 Michael n 00 tab, 0 Refill(s) famotidine 2021- Yes 20 mg = 1 Me moria 20 mg oral 0-13 tab, PO, l tablet 04:05: BID, # 60 Michael n 00 tab, 0 Refill(s) famotidine 2021- Yes 20 mg = 1 Me moria 20 mg oral 0-13 tab, PO, l tablet 04:05: BID, # 60 Michael n 00 tab, 0 Refill(s) famotidine 2021- Yes 20 mg = 1 Me moria 20 mg oral 0-13 tab, PO, l tablet 04:05: BID, # 60 Michael n 00 tab, 0 Refill(s) famotidine 2021- Yes 20 mg = 1 Me moria 20 mg oral 0-13 tab, PO, l tablet 04:05: BID, # 60 Michael n 00 tab, 0 Refill(s) famotidine 2021- Yes 20 mg = 1 Me moria 20 mg oral 0-13 tab, PO, l tablet 04:05: BID, # 60 Michael n 00 tab, 0 Refill(s) famotidine 2021- Yes 20 mg = 1 Me moria 20 mg oral 0-13 tab, PO, l tablet 04:05: BID, # 60 Michael n 00 tab, 0 Refill(s) famotidine 2021- Yes 20 mg = 1 Me moria 20 mg oral 0-13 tab, PO, l tablet 04:05: BID, # 60 Michael n 00 tab, 0 Refill(s) famotidine 2021- Yes 20 mg = 1 Me moria 20 mg oral 0-13 tab, PO, l tablet 04:05: BID, # 60 Michael n 00 tab, 0 Refill(s) famotidine 2021- Yes 20 mg = 1 Me moria 20 mg oral 0-13 tab, PO, l tablet 04:05: BID, # 60 Michael n 00 tab, 0 Refill(s) famotidine 2021- Yes 20 mg = 1 Me moria [...] thiazide 0-13 PO, Daily, l 04:03: 0 Girard 00 Refill(s) hydrochloro 2021-06 Yes 12.5 mg, Me moria thiazide 0-13 PO, Daily, l 04:03: 0 Man 00 Refill(s) hydrochloro 2021-06 Yes 12.5 mg, Me moria thiazide 0-13 PO, Daily, l 04:03: 0 Girard 00 Refill(s) hydrochloro 2021-06 Yes 12.5 mg, [...] thiazide 0-13 PO, Daily, l 04:03: 0 Girard 00 Refill(s) hydrochloro 2021-06 Yes 12.5 mg, Me moria thiazide 0-13 PO, Daily, l 04:03: 0 Girard 00 Refill(s) hydrochloro 2021-06 Yes 12.5 mg, [...] thiazide 0-13 PO, Daily, l 04:03: 0 Girard 00 Refill(s) hydrochloro 2021-06 Yes 12.5 mg, Me moria thiazide 0-13 PO, Daily, l 04:03: 0 Man 00 Refill(s) hydrochloro 2021-06 Yes 12.5 mg, Me moria thiazide 0-13 PO, Daily, l 04:03: 0 Girard 00 Refill(s) hydrochloro 2021-06 Yes 12.5 mg, Me moria thiazide 0-13 PO, Daily, l 04:03: 0 Girard 00 Refill(s) ZyrTEC 2021-06 Yes 10 mg = 1 Mem oria mg oral 0-13 tab, PO, l tablet 04:00: Daily, PRN Cathleen nn 00 for allergy symptoms, # 30 tab, 1 Refill(s) ZyrTEC 2021-06 Yes 10 mg = 1 Mem oria mg oral 0-13 tab, PO, l tablet 04:00: Daily, PRN Cathleen nn 00 for allergy symptoms, # 30 tab, 1 Refill(s) ZyrTEC 2021-06 Yes 10 mg = 1 Mem oria mg oral 0-13 tab, PO, l tablet 04:00: Daily, PRN Cathleen nn 00 for allergy symptoms, # 30 tab, 1 Refill(s) ZyrTEC 2021-06 Yes 10 mg = 1 Mem oria mg oral 0-13 tab, PO, l tablet 04:00: Daily, PRN Cathleen nn 00 for allergy symptoms, # 30 tab, 1 Refill(s) ZyrTEC 2021-06 Yes 10 mg = 1 Mem oria mg oral 0-13 tab, PO, l tablet 04:00: Daily, PRN Cathleen nn 00 for allergy symptoms, # 30 tab, 1 Refill(s) ZyrTEC 2021-06 Yes 10 mg = 1 Mem oria mg oral 0-13 tab, PO, l tablet 04:00: Daily, PRN Cathleen nn 00 for allergy symptoms, # 30 tab, 1 Refill(s) ZyrTEC 2021-06 Yes 10 mg = 1 Mem oria mg oral 0-13 tab, PO, l tablet 04:00: Daily, PRN Cathleen nn 00 for allergy symptoms, # 30 tab, 1 Refill(s) ZyrTEC 2021-06 Yes 10 mg = 1 Mem oria mg oral 0-13 tab, PO, l tablet 04:00: Daily, PRN Cathleen nn 00 for allergy symptoms, # 30 tab, 1 Refill(s) ZyrTEC 2021-06 Yes 10 mg = 1 Mem [...] symptoms, # 30 tab, 1 Refill(s) ZyrTEC 2021-06 Yes 10 mg = 1 Mem oria mg oral 0-13 tab, PO, l tablet 04:00: Daily, PRN Cathleen nn 00 for allergy symptoms, # 30 tab, 1 Refill(s) ZyrTEC 2021-06 Yes 10 mg = 1 Mem oria mg oral 0-13 tab, PO, l tablet 04:00: Daily, PRN Cathleen nn 00 for allergy symptoms, # 30 tab, 1 Refill(s) ZyrTEC 2021-06 Yes 10 mg = 1 Mem oria mg oral 0-13 tab, PO, l tablet 04:00: Daily, PRN Cathleen nn 00 for allergy symptoms, # 30 tab, 1 Refill(s) ZyrTEC 2021-06 Yes 10 mg = 1 Mem oria mg oral 0-13 tab, PO, l tablet 04:00: Daily, PRN Cathleen nn 00 for allergy symptoms, # 30 tab, 1 Refill(s) ZyrTEC 2021-06 Yes 10 mg = 1 Mem [...] Cathleen nn 00 tab, 0 Refill(s) Dextrose 2021-06 Yes 12.5 gm, Memor ia 50% Syringe 0-13 25 mL, l (D50W) 03:18: Route: IVP, Drug Form: INJ, kg, PRN, PRN Blood Glucose Results, Start date: 04/10/22 22:18:00 CDT, Duration: 30 day, Stop date: 05/10/22 21:17:00 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, 0 glucagon 2021-06 Yes 1 mg, Memoria 0-13 Route: IM, l 03:18: Drug form: PDR/INJ, PRN, kg, PRN Blood Glucose Results, Start date: 04/10/22 22:18:00 CDT, Duration: 30 day, Stop date: 05/10/22 21:17:00 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, 0 ondansetron 2021-06 Yes Notes: Humble alivia [...] Duration: 30 day, Stop date: 05/10/22 21:17:00 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, 0 glucagon 2021-06 Yes 1 mg, Memoria 0-13 Route: IM, l 03:18: Drug form: Man 00 PDR/INJ, PRN, kg, PRN Blood Glucose Results, Start date: 04/10/22 22:18:00 CDT, Duration: 30 day, Stop date: 05/10/22 21:17:00 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, 0 ondansetron 2021-06 Yes Notes: Humble alivia 0-13 (Same as: l 03:18: Zofran) Man 00 MEDICATION WASTE Product Size: 4 mg Product Wasted: ___ mg melatonin 2021-06 Yes Notes: Memori a 0-13 (Same as: l 03:18: Melatonin) acetaminoph 2021-06 Yes Notes: Do M emoria en 0-13 not exceed l 03:18: 4 gm/day. (Same as: Tylenol) Dextrose 2021-06 Yes 12.5 gm, Memor ia 50% Syringe 0-13 25 mL, l (D50W) 03:18: Route: Girard 00 IVP, Drug Form: INJ, kg, PRN, PRN Blood Glucose Results, Start date: 04/10/22 22:18:00 CDT, Duration: 30 day, Stop date: 05/10/22 21:17:00 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, 0 glucagon 2021-06 Yes 1 mg, Memoria 0-13 Route: IM, l 03:18: Drug form: Man 00 PDR/INJ, PRN, kg, PRN Blood Glucose Results, Start date: 04/10/22 22:18:00 CDT, Duration: 30 day, Stop date: 05/10/22 21:17:00 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, 0 ondansetron 2021-06 Yes Notes: Humble alivia 0-13 (Same as: l 03:18: Zofran) Girard 00 MEDICATION WASTE Product Size: 4 mg Product Wasted: ___ mg melatonin 2021-06 Yes Notes: Memori a 0-13 (Same as: l 03:18: Melatonin) acetaminoph 2021-06 Yes Notes: Do M emoria en 0-13 not exceed l 03:18: 4 gm/day. Girard 00 (Same as: Tylenol) Dextrose 2021-06 Yes 12.5 gm, Memor ia 50% Syringe 0-13 25 mL, l (D50W) 03:18: Route: Man 00 IVP, Drug Form: INJ, kg, PRN, PRN Blood Glucose Results, Start date: 04/10/22 22:18:00 CDT, Duration: 30 day, Stop date: 05/10/22 21:17:00 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, 0 glucagon 2021-06 Yes 1 mg, Memoria 0-13 Route: IM, l 03:18: Drug form: Girard 00 PDR/INJ, PRN, kg, PRN Blood Glucose Results, Start date: 04/10/22 22:18:00 CDT, Duration: 30 day, Stop date: 05/10/22 21:17:00 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, 0 ondansetron 2021-06 Yes Notes: Humble alivia 0-13 (Same as: l 03:18: Zofran) MEDICATION WASTE Product Size: 4 mg Product Wasted: ___ mg melatonin 2021-06 Yes Notes: Memori a 0-13 (Same as: l 03:18: Melatonin) acetaminoph 2021-06 Yes Notes: Do M emoria en 0-13 not exceed l 03:18: 4 gm/day. Man 00 (Same as: Tylenol) Dextrose 2021-06 Yes 12.5 gm, Memor ia 50% Syringe 0-13 25 mL, l (D50W) 03:18: Route: Man 00 IVP, Drug Form: INJ, kg, PRN, PRN Blood Glucose Results, Start date: 04/10/22 22:18:00 CDT, Duration: 30 day, Stop date: 05/10/22 21:17:00 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, 0 glucagon 2021-06 Yes 1 mg, Memoria 0-13 Route: IM, l 03:18: Drug form: Man 00 PDR/INJ, PRN, kg, PRN Blood Glucose Results, Start date: 04/10/22 22:18:00 CDT, Duration: 30 day, Stop date: 05/10/22 21:17:00 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, 0 ondansetron 2021-06 Yes Notes: Humble alivia 0-13 (Same as: l 03:18: Zofran) MEDICATION WASTE Product Size: 4 mg Product Wasted: ___ mg melatonin 2021-06 Yes Notes: Memori a 0-13 (Same as: l 03:18: Melatonin) Man 00 acetaminoph 2021-06 Yes Notes: Do M emoria en 0-13 not exceed l 03:18: 4 gm/day. Man 00 (Same as: Tylenol) Dextrose 2021-06 Yes 12.5 gm, Memor ia 50% Syringe 0-13 25 mL, l ([id number]) 03:18: Route: Man 00 IVP, Drug Form: INJ, kg, PRN, PRN Blood Glucose Results, Start date: 04/10/22 22:18:00 CDT, Duration: 30 day, Stop date: 05/10/22 21:17:00 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, 0 glucagon 2021-06 Yes 1 mg, Memoria 0-13 Route: IM, l 03:18: Drug form: Man 00 PDR/INJ, PRN, kg, PRN Blood Glucose Results, Start date: 04/10/22 22:18:00 CDT, Duration: 30 day, Stop date: 05/10/22 21:17:00 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, 0 ondansetron 2021-06 Yes Notes: Humble alivia 0-13 (Same as: l 03:18: Zofran) Man 00 MEDICATION WASTE Product Size: 4 mg Product Wasted: ___ mg melatonin 2021-06 Yes Notes: Memori a 0-13 (Same as: l 03:18: Melatonin) acetaminoph 2021-06 Yes Notes: Do M emoria en 0-13 not exceed l 03:18: 4 gm/day. Man 00 (Same as: Tylenol) Dextrose 2021-06 Yes 12.5 gm, Memor ia 50% Syringe 0-13 25 mL, l ([id number]) 03:18: Route: Girard 00 IVP, Drug Form: INJ, kg, PRN, PRN Blood Glucose Results, Start date: 04/10/22 22:18:00 CDT, Duration: 30 day, Stop date: 05/10/22 21:17:00 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, 0 glucagon 2021-06 Yes 1 mg, Memoria 0-13 Route: IM, l 03:18: Drug form: Man PDR/INJ, PRN, kg, PRN Blood Glucose Results, Start date: 04/10/22 22:18:00 CDT, Duration: 30 day, Stop date: 05/10/22 21:17:00 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, 0 ondansetron 2021-06 Yes Notes: [facility] alivia 0-13 (Same as: l 03:18: Zofran) [facility] 00 MEDICATION WASTE Product Size: 4 mg Product Wasted: ___ mg melatonin 2021-06 Yes Notes: [facility] a 0-13 (Same as: l 03:18: Melatonin) acetaminoph 2021-06 Yes Notes: Do M emoria en 0-13 not exceed l 03:18: 4 gm/day. (Same as: Tylenol) Dextrose 2021-06 Yes 12.5 gm, [facility] 50% Syringe 0-13 25 mL, l (D50W) 03:18: Route: [facility] IVP, Drug Form: INJ, kg, PRN, PRN Blood Glucose Results, Start date: 04/10/22 22:18:00 CDT, Duration: 30 day, Stop date: 05/10/22 21:17:00 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, 0 glucagon 2021-06 Yes 1 mg, [facility] 0-13 Route: IM, l 03:18: Drug form: Man PDR/INJ, PRN, kg, PRN Blood Glucose Results, Start date: 04/10/22 22:18:00 CDT, Duration: 30 day, Stop date: 05/10/22 21:17:00 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, 0 ondansetron 2021-06 Yes Notes: [facility] alivia 0-13 (Same as: l 03:18: Zofran) Man 00 MEDICATION WASTE Product Size: 4 mg Product [...] Duration: 30 day, Stop date: 05/10/22 21:17:00 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, 0 glucagon 2021-06 Yes 1 mg, [facility] 0-13 Route: IM, l 03:18: Drug form: [place] 00 PDR/INJ, PRN, kg, PRN Blood Glucose Results, Start date: 04/10/22 22:18:00 CDT, Duration: 30 day, Stop date: 05/10/22 21:17:00 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, 0 ondansetron 2021-06 Yes Notes: [facility] alivia [...] 0-13 25 mL, l (D50W) 03:18: Route: [place] 00 IVP, Drug Form: INJ, kg, PRN, PRN Blood Glucose Results, Start date: 04/10/22 22:18:00 CDT, Duration: 30 day, Stop date: 05/10/22 21:17:00 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, 0 glucagon 2021-06 Yes 1 mg, [facility] 0-13 Route: IM, l 03:18: Drug form: [place] 00 PDR/INJ, PRN, kg, PRN Blood Glucose Results, Start date: 04/10/22 22:18:00 CDT, Duration: 30 day, Stop date: 05/10/22 21:17:00 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, 0 ondansetron 2021-06 Yes Notes: [facility] alivia 0-13 (Same as: l 03:18: Zofran) Man 00 MEDICATION WASTE Product Size: 4 mg Product Wasted: ___ mg melatonin 2021-06 Yes Notes: [facility] 0-13 (Same as: l 03:18: Melatonin) Man 00 acetaminoph 2021-06 Yes Notes: Do M emoria en 0-13 not exceed l 03:18: 4 gm/day. [place] 00 (Same as: Tylenol) Dextrose 2021-06 Yes 12.5 gm, [facility] 50% Syringe 0-13 25 mL, l (D50W) 03:18: Route: [place] 00 IVP, Drug Form: INJ, kg, PRN, PRN Blood Glucose Results, Start date: 04/10/22 22:18:00 CDT, Duration: 30 day, Stop date: 05/10/22 21:17:00 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, 0 glucagon 2021-06 Yes 1 mg, [facility] 0-13 Route: IM, l 03:18: Drug form: Man 00 PDR/INJ, PRN, kg, PRN Blood Glucose Results, Start date: 04/10/22 22:18:00 CDT, Duration: 30 day, Stop date: 05/10/22 21:17:00 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, 0 ondansetron 2021-06 Yes Notes: [facility] al[facility] 0-13 (Same as: l 03:18: Zofran) [place] 00 MEDICATION WASTE Product Size: 4 mg Product Wasted: ___ mg melatonin 2021-06 Yes Notes: [facility] 0-13 (Same as: l 03:18: Melatonin) acetaminoph 2021-06 Yes Notes: Do M em[facility] en 0-13 not exceed l 03:18: 4 gm/day. [place] 00 (Same as: Tylenol) Dextrose 2021-06 Yes 12.5 gm, [facility] 50% Syringe 0-13 25 mL, l (D50W) 03:18: Route: [place] 00 IVP, Drug Form: INJ, kg, PRN, PRN Blood Glucose Results, Start date: 04/10/22 22:18:00 CDT, Duration: 30 day, Stop date: 05/10/22 21:17:00 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, 0 glucagon 2021-06 Yes 1 mg, [facility] 0-13 Route: IM, l 03:18: Drug form: [place] 00 PDR/INJ, PRN, kg, PRN Blood Glucose Results, Start date: 04/10/22 22:18:00 CDT, Duration: 30 day, Stop date: 05/10/22 21:17:00 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, 0 ondansetron 2021-06 Yes Notes: [facility] alivia 0-13 (Same as: l 03:18: Zofran) MEDICATION WASTE Product Size: 4 mg Product Wasted: ___ mg melatonin 2021-06 Yes Notes: [facility] a 0-13 (Same as: l 03:18: Melatonin) acetaminoph 2021-06 Yes Notes: Do M em[facility] en 0-13 not exceed l 03:18: 4 gm/day. Man 00 (Same as: Tylenol) Dextrose 2021-06 Yes 12.5 gm, [facility] 50% Syringe 0-13 25 mL, l (D50W) 03:18: Route: Man IVP, Drug Form: INJ, kg, PRN, PRN Blood Glucose Results, Start date: 04/10/22 22:18:00 CDT, Duration: 30 day, Stop date: 05/10/22 21:17:00 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, 0 glucagon 2021-06 Yes 1 mg, [facility] 0-13 Route: IM, l 03:18: Drug form: Man 00 PDR/INJ, PRN, kg, PRN Blood Glucose Results, Start date: 04/10/22 22:18:00 CDT, Duration: 30 day, Stop date: 05/10/22 21:17:00 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, 0 ondansetron 2021-06 Yes Notes: [facility] alivia [...] 0-13 25 mL, l (D50W) 03:18: Route: [place] 00 IVP, Drug Form: INJ, kg, PRN, PRN Blood Glucose Results, Start date: 04/10/22 22:18:00 CDT, Duration: 30 day, Stop date: 05/10/22 21:17:00 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, 0 glucagon 2021-06 Yes 1 mg, [facility] 0-13 Route: IM, l 03:18: Drug form: Man 00 PDR/INJ, PRN, kg, PRN Blood Glucose Results, Start date: 04/10/22 22:18:00 CDT, Duration: 30 day, Stop date: 05/10/22 21:17:00 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, 0 ondansetron 2021-06 Yes Notes: [facility] alivia [...] 0-13 25 mL, l (D50W) 03:18: Route: [place] 00 IVP, Drug Form: INJ, kg, PRN, PRN Blood Glucose Results, Start date: 04/10/22 22:18:00 CDT, Duration: 30 day, Stop date: 05/10/22 21:17:00 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, 0 glucagon 2021-06 Yes 1 mg, [facility] 0-13 Route: IM, l 03:18: Drug form: Man 00 PDR/INJ, PRN, kg, PRN Blood Glucose Results, Start date: 04/10/22 22:18:00 CDT, Duration: 30 day, Stop date: 05/10/22 21:17:00 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, 0 ondansetron 2021-06 Yes Notes: [facility] alivia [...] 0-13 25 mL, l (D50W) 03:18: Route: [place] 00 IVP, Drug Form: INJ, kg, PRN, PRN Blood Glucose Results, Start date: 04/10/22 22:18:00 CDT, Duration: 30 day, Stop date: 05/10/22 21:17:00 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, 0 glucagon 2021-06 Yes 1 mg, [facility] 0-13 Route: IM, l 03:18: Drug form: [place] PDR/INJ, PRN, kg, PRN Blood Glucose Results, Start date: 04/10/22 22:18:00 CDT, Duration: 30 day, Stop date: 05/10/22 21:17:00 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, 0 ondansetron 2021-06 Yes Notes: [facility] al[facility] 0-13 (Same as: l 03:18: Zofran) MEDICATION WASTE Product Size: 4 mg Product Wasted: ___ mg melatonin 2021-06 Yes Notes: [facility] a 0-13 (Same as: l 03:18: Melatonin) acetaminoph 2021-06 Yes Notes: Do M em[facility] en 0-13 not exceed l 03:18: 4 gm/day. Man 00 (Same as: Tylenol) benzonatate Yes [id number] 100mg Take 1 [facility] 100 mg 7-26 capsule by ity of capsule 00:00: mouth 3 [place] 00 (three) Medical times Branch daily as needed for Cough. benzonatate Yes [id number] 100mg Take 1 [facility] 100 mg 7-26 capsule by ity of capsule 00:00: mouth 3 [place] 00 (three) Medical times Branch daily as needed for Cough. benzonatate 2021- No [id number] 100mg Take 1 [facility] 100 mg 7-26 [...] needed. Medical ORAL) Branch erythromyci 2020-06- No [id number] .5[in_u Place 0.5 [facility] n 5 mg/gram 07-18 12-04 s] Inches in it y of (0.5 %) 00:00: 05:59 [place] ophthal[place] 00 :00 4 (four) Medic al ointment times Branch daily for 14 days. erythromyci 2020-06- No [id number] .5[in_u Place 0.5 [facility] n 5 mg/gram [...] 44 needed. Medical ORAL) Branch traMADOL 50 2018-0 Yes 50mg Take 50 mg [facility] mg tablet 1-10 by mouth ity of 12:44: every 8 [place] 18 (eight) Medical hours as Branch needed. traMADOL 50 Yes 50mg Take 50 mg [...] 1{tbl} Take 1 U nivers -acetaminop 2-17 12-06 tablet by it y of hen 5-325 [...] 00:00: mouth [place] [facility] Yes 100[facility] Take 1 [facility] s 100 mg 2-16 capsule by ity of capsule 00:00: mouth [place] 00 daily. Medical Branch docusate 2016-06- No 100mg Take 1 Un[facility] rs 100 mg 2-16 02-17 capsule by ity of capsule 00:00: 00:00 mouth [place] 00 :00 daily. Medical Branch docusate 2016-06- No 100mg Take 1 Un[facility] rs 100 mg 2-16 02-17 capsule by ity of capsule 00:00: 00:00 mouth [place] 00 :00 daily. Medical Branch traMADOL 50 2016-06- No [...] DAILY AT DAILY AT MOUTH ONCE O [facility] BEDTIME BEDTIME DAILY AT h BEDTIME Program [...] al MOUTH ONCE MOUTH ONCE TABLET BY [facility] DAILY AT DAILY AT MOUTH ONCE O [facility] BEDTIME BEDTIME DAILY AT h BEDTIME Program [...] Program at bedtime. at bedtime. at bedtime. albuterol albuterol No albuterol [place] sulfate HFA [...] Program atorvastati atorvastati No atorvastat [place] n 80 mg n 80 mg in 80 mg da tablet TAKE tablet TAKE tablet [facility] 1 TABLET BY 1 TABLET BY TAKE 1 al MOUTH AT MOUTH AT TABLET BY He alth BEDTIME BEDTIME MOUTH AT Outre ac BEDTIME h Program gabapentin gabapentin No gabapentin [place] 100 mg 100 mg 100 mg da capsule capsule capsule [facility] p TAKE 1 TAKE 1 TAKE 1 al CAPSULE BY CAPSULE BY CAPSULE BY Health MOUTH IN MOUTH IN MOUTH IN Out reac THE THE THE h MORNING, 1 MORNING, 1 MORNING, 1 Program CAPSULE AT CAPSULE AT CAPSULE AT NOON AND 1 NOON AND 1 NOON AND 1 CAPSULE IN CAPSULE IN CAPSULE IN THE EVENING THE EVENING THE EVENING gabapentin gabapentin No 1capsul TID gabapentin [place] 300 mg 300 mg e(s) 300 mg da capsule capsule capsule [facility] p Take 1 Take 1 Take 1 al capsule 3 capsule 3 capsule 3 Health times a day times a day times a Outreac by oral by oral day by h route. route. oral Program route. hydrochloro hydrochloro No hydrochlor [place] thiazide thiazide [...] a l DIRECTED Health Outreac h Program ondansetron ondansetron No ondansetro [place] HCl 4 mg HCl 4 mg n HCl 4 mg d a tablet TAKE tablet TAKE tablet [facility] 1 TO 2 1 TO 2 TAKE 1 TO al TABLETS BY TABLETS BY 2 TABLETS Health MOUTH EVERY MOUTH EVERY BY MOUTH Outre[facility] 8 HOURS 8 HOURS EVERY 8 h NEEDED FOR NEEDED FOR HOURS Program NAUSEA NAUSEA NEEDED FOR NAUSEA sertraline sertraline No sertraline [place] 50 mg 50 mg 50 mg da tablet TAKE tablet TAKE tablet [facility] 1/2 1/2 TAKE 1/2 al (ONE-HALF) (ONE-HALF) (ONE-HALF) Health TABLET BY TABLET BY TABLET BY Outreac MOUTH ONCE MOUTH ONCE MOUTH ONCE h DAILY FOR 2 DAILY FOR 2 DAILY FOR Program WEEKS THEN WEEKS THEN 2 WEEKS INCREASE TO INCREASE TO THEN 1 TABLET 1 TABLET INCREASE ONCE DAILY ONCE DAILY TO 1 TABLET ONCE DAILY zolpidem 5 zolpidem 5 No zolpidem 5 [place] mg tablet mg tablet mg tablet da TAKE 1 TAKE 1 TAKE 1 [facility] TABLET BY TABLET BY TABLET BY al MOUTH ONCE MOUTH ONCE MOUTH ONCE Health DAILY AT DAILY AT DAILY AT Out re BEDTIME BEDTIME BEDTIME h Program albuterol albuterol No albuterol [place] sulfate HFA sulfate HFA sulfate da 90 90 HFA 90 [facility] mcg/actuati mcg/actuati mcg/actuat al on aerosol on aerosol ion [facility] inhaler inhaler aerosol Outrea c inhaler h Program amlodipine amlodipine No amlodipine [place] 5 mg tablet 5 mg tablet 5 mg d a TAKE 1 TAKE 1 tablet [facility] TABLET BY TABLET BY TAKE 1 al MOUTH ONCE MOUTH ONCE TABLET BY Health DAILY DAILY MOUTH ONCE Outreac DAILY h Program atorvastati atorvastati No atorvastat [place] n 80 mg n 80 mg in 80 mg da tablet TAKE tablet TAKE tablet [facility] 1 TABLET BY 1 TABLET BY TAKE 1 al MOUTH AT MOUTH AT TABLET BY [facility] BEDTIME BEDTIME MOUTH AT [facility] BEDTIME h Program gabapentin gabapentin No gabapentin [place] 100 mg 100 mg 100 mg da capsule capsule capsule [facility] p TAKE 1 TAKE 1 TAKE 1 al CAPSULE BY CAPSULE BY CAPSULE BY Health MOUTH IN MOUTH IN MOUTH IN Out re THE THE THE h MORNING, 1 MORNING, 1 MORNING, 1 Program CAPSULE AT CAPSULE AT CAPSULE AT NOON AND 1 NOON AND 1 NOON AND 1 CAPSULE IN CAPSULE IN CAPSULE IN THE EVENING THE EVENING THE EVENING gabapentin gabapentin No gabapentin [place] 300 mg 300 mg 300 mg da capsule capsule capsule [facility] p TAKE 1 TAKE 1 TAKE 1 al CAPSULE BY CAPSULE BY CAPSULE BY Health MOUTH THREE MOUTH THREE MOUTH Outreac TIMES DAILY TIMES DAILY THREE h TIMES Program DAILY hydrochloro hydrochloro No hydrochlor [place] thiazide thiazide [...] a l DIRECTED Health Outreac h Program ondansetron ondansetron No ondansetro [place] HCl 4 mg HCl 4 mg n HCl 4 mg d a tablet TAKE tablet TAKE tablet [facility] 1 TO 2 1 TO 2 TAKE 1 TO al TABLETS BY TABLETS BY 2 TABLETS Health MOUTH EVERY MOUTH EVERY BY MOUTH Outre[facility] 8 HOURS 8 HOURS EVERY 8 h NEEDED FOR NEEDED FOR HOURS Program NAUSEA NAUSEA NEEDED FOR NAUSEA sertraline sertraline No sertraline [place] 50 mg 50 mg 50 mg da tablet TAKE tablet TAKE tablet [facility] 1/2 1/2 TAKE 1/2 al (ONE-HALF) (ONE-HALF) (ONE-HALF) Health TABLET BY TABLET BY TABLET BY Outreac MOUTH ONCE MOUTH ONCE MOUTH ONCE h DAILY FOR 2 DAILY FOR 2 DAILY FOR Program WEEKS THEN WEEKS THEN 2 WEEKS INCREASE TO INCREASE TO THEN 1 TABLET 1 TABLET INCREASE ONCE DAILY ONCE DAILY TO 1 TABLET ONCE DAILY tramadol 50 tramadol 50 No tramadol [place] mg tablet mg tablet 50 mg da TAKE 1 TAKE 1 tablet [facility] TABLET BY TABLET BY TAKE 1 al MOUTH EVERY MOUTH EVERY TABLET BY Health 6 HOURS 6 HOURS MOUTH Ou treac NEEDED FOR NEEDED FOR EVERY 6 h PAIN PAIN HOURS Program NEEDED FOR PAIN zolpidem 5 zolpidem 5 No zolpidem 5 [place] mg tablet mg tablet mg tablet da TAKE 1 TAKE 1 TAKE 1 [facility] TABLET BY TABLET BY TABLET BY al MOUTH ONCE MOUTH ONCE MOUTH ONCE Health DAILY AT DAILY AT DAILY AT Out reac BEDTIME BEDTIME BEDTIME h Program albuterol albuterol No 2puff(s Q4H albuterol [place] sulfate HFA sulfate HFA ) sulfate da 90 90 HFA 90 [facility] mcg/actuati mcg/actuati mcg/actuat al on aerosol on aerosol ion Hea lth inhaler inhaler aerosol Outrea c Inhale 2 Inhale 2 inhaler h puffs every puffs every Inhale 2 Program 4 hours by 4 hours by puffs inhalation inhalation every 4 route as route as hours by needed. for needed. for inhalation SOB SOB route as needed. for SOB atorvastati atorvastati No 20mL Q1D atorvastat [place] n 20 mg/5 n 20 mg/5 in 20 mg/5 da mL (4 mL (4 mL (4 [facility] mg/mL) oral mg/mL) oral mg/mL) al suspension suspension oral Hea lth Take 20 mL Take 20 mL suspension Outreac every day every day Take 20 mL h by oral by oral every day Prog alberto route in route in by oral the the route in evening. evening. the for high for high evening. cholesterol cholesterol for high . Stop . Stop cholestero atorvastati atorvastati l. Stop n pills. n pills. atorvastat in pills. atorvastati atorvastati No atorvastat [place] n 80 mg n 80 mg in 80 mg da tablet TAKE tablet TAKE tablet [facility] 1 TABLET BY 1 TABLET BY TAKE 1 al MOUTH AT MOUTH AT TABLET BY He alth BEDTIME BEDTIME MOUTH AT Outre ac BEDTIME h Program benzonatate benzonatate No benzonatat [place] 100 [...] the COUGH day. day. during the day. gabapentin gabapentin No 8mL TID gabapentin [place] 250 mg/5 mL 250 mg/5 mL 250 mg/5 da oral oral mL oral [facility] solution solution solution al Take 8 mL 3 Take 8 mL 3 Take 8 mL Health times a day times a day 3 times a Outreac by oral by oral day by h route as route as oral route P rogram needed. for needed. for as needed. pain. Stop pain. Stop for pain. taking taking Stop gabapentin gabapentin taking pills pills gabapentin pills gabapentin gabapentin No gabapentin [place] 300 mg 300 mg 300 mg da capsule capsule capsule [facility] p TAKE 1 TAKE 1 TAKE 1 al CAPSULE BY CAPSULE BY CAPSULE BY Health MOUTH THREE MOUTH THREE MOUTH Outreac TIMES DAILY TIMES DAILY THREE h TIMES Program DAILY hydrochloro hydrochloro No hydrochlor [place] thiazide thiazide [...] a l DIRECTED Health Outreac h Program ondansetron ondansetron No ondansetro [place] HCl 4 mg HCl 4 mg n HCl 4 mg d a tablet TAKE tablet TAKE tablet [facility] 1 TO 2 1 TO 2 TAKE 1 TO al TABLETS BY TABLETS BY 2 TABLETS Health MOUTH EVERY MOUTH EVERY BY MOUTH Outre[facility] 8 HOURS 8 HOURS EVERY 8 h NEEDED FOR NEEDED FOR HOURS Program NAUSEA NAUSEA NEEDED FOR NAUSEA sertraline sertraline No sertraline [place] 50 mg 50 mg 50 mg da tablet TAKE tablet TAKE tablet [facility] 1/2 /2 TAKE 1/2 al (ONE-HALF) (ONE-HALF) (ONE-HALF) Health TABLET BY TABLET BY TABLET BY Outreac MOUTH ONCE MOUTH ONCE MOUTH ONCE h DAILY FOR 2 DAILY FOR 2 DAILY FOR Program WEEKS THEN WEEKS THEN 2 WEEKS INCREASE TO INCREASE TO THEN 1 TABLET 1 TABLET INCREASE ONCE DAILY ONCE DAILY TO 1 TABLET ONCE DAILY tramadol 50 tramadol 50 No tramadol [place] mg tablet mg tablet 50 mg da TAKE 1 TAKE 1 tablet [facility] TABLET BY TABLET BY TAKE 1 al MOUTH EVERY MOUTH EVERY TABLET BY Health 6 HOURS 6 HOURS MOUTH Ou treac NEEDED FOR NEEDED FOR EVERY 6 h PAIN PAIN HOURS Program NEEDED FOR PAIN zolpidem 5 zolpidem 5 No zolpidem 5 [place] mg tablet mg tablet mg tablet da TAKE 1 TAKE 1 TAKE 1 [facility] TABLET BY TABLET BY TABLET BY al MOUTH ONCE MOUTH ONCE MOUTH ONCE Health DAILY AT DAILY AT DAILY AT Out reac BEDTIME BEDTIME BEDTIME h Program albuterol albuterol No albuterol [place] sulfate HFA sulfate HFA sulfate da 90 90 HFA 90 [facility] mcg/actuati mcg/actuati mcg/actuat al on aerosol on aerosol ion Hea lth inhaler inhaler aerosol Outrea c INHALE 2 INHALE 2 inhaler h PUFFS BY PUFFS BY INHALE 2 Pro gram MOUTH EVERY MOUTH EVERY PUFFS BY 4 HOURS 4 HOURS MOUTH NEEDED NEEDED EVERY 4 HOURS NEEDED atorvastati atorvastati No atorvastat [place] n 80 mg n 80 mg in 80 mg da tablet TAKE tablet TAKE tablet [facility] 1 TABLET BY 1 TABLET BY TAKE 1 al MOUTH AT MOUTH AT TABLET BY He alth BEDTIME BEDTIME MOUTH AT [facility] BEDTIME h Program benzonatate benzonatate No benzonatat [place] 100 mg 100 mg e 100 mg da capsule capsule capsule [facility] p TAKE 1 TO 2 TAKE 1 TO 2 TAKE 1 TO al CAPSULES BY CAPSULES BY 2 CAPSULES Health MOUTH EVERY MOUTH EVERY BY MOUTH Outre[facility] 8 HOURS 8 HOURS EVERY 8 h NEEDED FOR NEEDED FOR HOURS Program COUGH COUGH NEEDED FOR DURING THE DURING THE COUGH DAY DAY DURING THE DAY calcium calcium No 1 Q1D calcium [place] carbonate carbonate carbonate da 600 600 600 [facility] mg-vitamin mg-vitamin mg-vitamin al D3 20 mcg D3 20 mcg D3 20 mcg Health (800 unit) (800 unit) (800 unit) Outreac tablet Take tablet Take tablet h 1 tablet 1 tablet Take 1 Progr am every day every day tablet by oral by oral every day route for route for by oral 30 days. 30 days. route for 30 days. gabapentin gabapentin No gabapentin [place] 300 mg 300 mg 300 mg da capsule capsule capsule [facility] p TAKE 1 TAKE 1 TAKE 1 al CAPSULE BY CAPSULE BY CAPSULE BY Health MOUTH THREE MOUTH THREE MOUTH Outreac TIMES DAILY TIMES DAILY THREE h TIMES Program DAILY InnoSpire InnoSpire No InnoSpire [place] Essence Essence Essence da device USE device USE device USE [facility] DIRECTED DIRECTED a l DIRECTED Health Outreac h Program sertraline sertraline No sertraline [place] 50 mg 50 mg 50 mg da tablet TAKE tablet TAKE tablet [facility] 1/2 1/2 TAKE 1/2 al (ONE-HALF) (ONE-HALF) (ONE-HALF) Health TABLET BY TABLET BY TABLET BY Outreac MOUTH ONCE MOUTH ONCE MOUTH ONCE h DAILY FOR 2 DAILY FOR 2 DAILY FOR Program WEEKS THEN WEEKS THEN 2 WEEKS INCREASE TO INCREASE TO THEN 1 TABLET 1 TABLET INCREASE ONCE DAILY ONCE DAILY TO 1 TABLET ONCE DAILY tramadol 50 tramadol 50 No tramadol [place] mg tablet mg tablet 50 mg da TAKE 1 TAKE 1 tablet [facility] TABLET BY TABLET BY TAKE 1 al MOUTH EVERY MOUTH EVERY TABLET BY Health 6 HOURS 6 HOURS MOUTH Ou treac NEEDED FOR NEEDED FOR EVERY 6 h PAIN PAIN HOURS Program NEEDED FOR PAIN zolpidem 5 zolpidem 5 No zolpidem 5 [place] mg tablet mg tablet mg tablet da TAKE 1 TAKE 1 TAKE 1 [facility] TABLET BY TABLET BY TABLET BY al MOUTH ONCE MOUTH ONCE MOUTH ONCE Health DAILY AT DAILY AT DAILY AT Out reac BEDTIME BEDTIME BEDTIME h Program Immunizations Ordered Filled Immunization Date Status Comments [facility] e Immunization Name Name zoster recombinant zoster recombinant 2022-07-19 Completed [place] - ML - ML 00:00:00 [facility] zoster recombinant zoster recombinant 2022-07-19 Completed [place] - ML - ML 00:00:00 [facility] zoster recombinant zoster recombinant 2022-07-19 Completed [place] - ML - ML 00:00:00 [facility] zoster recombinant zoster recombinant 2022-07-19 Completed [place] - ML - ML 00:00:00 [facility] COVID-19 vaccine, COVID-19 vaccine, 2021-06-26 Completed [place] vector-nr, rS-Ad26, vector-nr, rS-Ad26, 00:00:00 [facility] PF, 0.5 mL PF, 0.5 mL Outreach Progr am (Ra[facility]) - ML (Raiza) - ML COVID-19 vaccine, COVID-19 vaccine, 2021-06-26 Completed [place] vector-nr, rS-Ad26, vector-nr, rS-Ad26, 00:00:00 [facility] PF, 0.5 mL PF, 0.5 mL Outreach Progr am ([facility]) - ML (Raiza) - ML COVID-19 vaccine, COVID-19 vaccine, 2021-06-26 Completed [place] vector-nr, rS-Ad26, vector-nr, rS-Ad26, 00:00:00 [facility] PF, 0.5 mL PF, 0.5 mL Outreach Progr am ([facility]iza) - ML (Raiza) - ML COVID-19 vaccine, COVID-19 vaccine, 2021-06-26 Completed [place] vector-nr, rS-Ad26, vector-nr, rS-Ad26, 00:00:00 [facility] PF, 0.5 mL PF, 0.5 mL Outreach Progr am (Raiza) - ML (Raiza) - ML Tdap Tdap 2020-05-18 Completed [place] 09:21:00 [facility] Tdap Tdap 2020-05-18 Completed [place] 09:21:00 [facility] Tdap Tdap 2020-05-18 Completed [place] 09:21:00 [facility] Tdap Tdap 2020-05-18 Completed [place] 09:21:00 [facility] Tdap Tdap 2020-05-18 Completed [place] 09:21:00 [facility] Tdap Tdap 2020-05-18 Completed [place] 09:21:00 [facility] TDAP 2016-01-02 Completed [facility]00 [place] [facility] TDAP 2016-01-02 Completed [facility] 00:00:00 [facility] TDAP 2016-01-02 Completed [facility] 00:00:00 [facility] TDAP 2016-01-02 Completed [facility] 00:00:00 [facility] TDAP 2016-01-02 Completed [facility] 00:00:00 [facility] TDAP 2016-01-02 Completed [facility] 00:00:00 [facility] TDAP 2016-01-02 Completed [facility] 00:00:00 [facility] TDAP 2016-01-02 Completed [facility] 00:00:00 [facility] TDAP 2016-01-02 Completed [facility] 00:00:00 [facility] TDAP 2016-01-02 Completed [facility] 00:00:00 [facility] TDAP 2016-01-02 Completed [facility] 00:00:00 [facility] TDAP 2016-01-02 Completed [facility] 00:00:00 [facility] TDAP 2016-01-02 Completed [facility] 00:00:00 [facility] TDAP 2016-01-02 Completed [facility] 00:00:00 [facility] TDAP 2016-01-02 Completed [facility] 00:00:00 [facility] TDAP 2016-01-02 Completed [facility] 00:00:00 [facility] TDAP 2016-01-02 Completed [facility] 00:00:00 [facility] TDAP 2016-01-02 Completed [facility] 00:00:00 [facility] TDAP 2016-01-02 Completed [facility] 00:00:00 [facility] TDAP 2016-01-02 Completed [facility] 00:00:00 [facility] TDAP 2016-01-02 Completed [facility] 00:00:00 [facility] TDAP 2016-01-02 Completed [facility] 00:00:00 [facility] TDAP 2016-01-02 Completed [facility] 00:00:00 [facility] TDAP 2016-01-02 Completed [facility] 00:00:00 [place] [facility] Vital Signs Vital Name Observation Time Observation Value Comments Source Height 2022-10-17 22:58:00 162.56 CM Weight 2022-10-17 22:58:00 79.37 KG Height 2022-10-15 00:00:00 63 [in_i] [place] [facility] BMI (Body Mass 2022-10-15 00:00:00 30.3 kg/m2 [place] [facility] director Index) [facility] Body Weight 2022-10-15 00:00:00 171.06 [lb_av] [place] [facility] BP Diastolic 2022-10-01 00:00:00 77 mm[Hg] [place] [facility] Height 2022-10-01 00:00:00 63 [in_i] [place] [facility] BMI (Body Mass 2022-10-01 00:00:00 30.3 kg/m2 [place] [facility] director Index) [facility] BP Systolic 2022-10-01 00:00:00 127 mm[Hg] [place] [facility] Body Weight 2022-10-01 00:00:00 2737 [oz_av] [place] [facility] BP Diastolic 2022-09-23 00:00:00 85 mm[Hg] [place] [facility] Height 2022-09-23 00:00:00 63 [in_i] [place] [facility] BMI (Body Mass 2022-09-23 00:00:00 31.4 kg/m2 [place] department director Index) [facility] BP Systolic 2022-09-23 00:00:00 133 mm[Hg] [place] [facility] Body Weight 2022-09-23 00:00:00 2832 [oz_av] [place] [facility] Systolic blood 2022-09-04 18:03:00 116 mm[Hg] Sky oliva of [facility] Diastolic blood 2022-09-04 18:03:00 80 mm[Hg] Unive rsity of pressure [facility] Heart rate 2022-09-04 18:03:00 94 /min Universi ty [facility] Body height 2022-09-04 18:03:00 162.6 cm Universi ty [facility] Body weight 2022-09-04 18:03:00 78.926 kg Universi [facility] BMI 2022-09-04 18:03:00 29.87 kg/m2 [facility] BP Diastolic 2022-08-26 00:00:00 77 mm[Hg] [place] [facility] Height 2022-08-26 00:00:00 63 [in_i] [place] [facility] BMI (Body Mass 2022-08-26 00:00:00 30.7 kg/m2 [place] department director Index) [facility] BP Systolic 2022-08-26 00:00:00 124 mm[Hg] [place] [facility] Body Weight 2022-08-26 00:00:00 2773 [oz_av] [place] [facility] Systolic blood 2022-08-20 18:08:00 117 mm[Hg] Univer sity of [facility] Diastolic blood 2022-08-20 18:08:00 61 mm[Hg] Unive rsity of pressure [facility] Heart rate 2022-08-20 18:08:00 83 /min [facility] Body temperature 2022-08-20 18:08:00 36.11 [facility] Res[facility] rate 2022-08-20 18:08:00 18 /min [facility] Oxygen saturation in 2022-08-20 18:08:00 98 /min [facility] Arterial blood by [facility] Pulse oximetry Branch Body height 2022-08-19 19:23:00 162.6 cm Universi ty [facility] Body weight 2022-08-19 19:23:00 73.483 kg [facility] BMI 2022-08-19 19:23:00 27.81 kg/m2 [facility] Systolic blood 2022-06-04 22:00:00 127 mm[Hg] Univer sity of pressure [facility] Diastolic blood 2022-06-04 22:00:00 70 mm[Hg] Unive rsity of [facility] Heart rate 2022-06-04 22:00:00 75 /min [facility] Respiratory rate 2022-06-04 22:00:00 17 /min [facility] Oxygen saturation in 2022-06-04 22:00:00 97 /min [facility] blood by [facility] Pulse oximetry [place] Body temperature 2022-06-04 21:26:00 36.67 Leatha [facility] Body weight 2022-06-04 16:37:00 76.204 kg [facility] BMI 2022-06-04 16:37:00 28.84 kg/m2 [facility] BP Diastolic 2022-05-20 00:00:00 67 mm[Hg] [place] [facility] Height 2022-05-20 00:00:00 63 [in_i] [place] [facility] BMI (Body Mass 2022-05-20 00:00:00 28.5 kg/m2 [place] department director Index) [facility] BP Systolic 2022-05-20 00:00:00 119 mm[Hg] [place] [facility] Body Weight 2022-05-20 00:00:00 2578 [oz_av] [place] [facility] Height 2022-04-10 11:53:00 165.1 CM Weight 2022-04-10 11:53:00 72.57 KG BP Diastolic 2022-03-14 00:00:00 84 mm[Hg] [place] [facility] Height 2022-03-14 00:00:00 63 [in_i] [place] [facility] BMI (Body Mass 2022-03-14 00:00:00 29.8 kg/m2 [place] department director Index) [facility] BP Systolic 2022-03-14 00:00:00 131 mm[Hg] [place] [facility] Body Weight 2022-03-14 00:00:00 2688 [oz_av] [place] [facility] Height 2022-02-13 14:52:00 162.56 CM Weight 2022-02-13 14:52:00 79.37 KG Systolic blood 2022-01-22 17:15:59 121 mm[Hg] Univer sity of pressure [facility] Diastolic blood 2022-01-22 17:15:59 79 mm[Hg] Unive rsity of pressure [facility] Heart rate 2022-01-22 17:15:59 81 /min Universi ty [facility] Respiratory rate 2022-01-22 17:15:59 18 /min Univ ersity of [facility] Oxygen saturation in 2022-01-22 17:15:59 98 /min University of Arterial blood by [place] [facility] Pulse oximetry [facility] Body temperature 2022-01-22 14:17:00 36.72 Leatha Univ ersity of [facility] Systolic blood 2022-01-09 16:30:00 135 mm[Hg] Univer sity of pressure [facility] Diastolic blood 2022-01-09 16:30:00 86 mm[Hg] Unive rsity of pressure [facility] Heart rate 2022-01-09 16:30:00 88 /min [facility] ty [facility] Body temperature 2022-01-09 16:30:00 36.28 Leatha Univ ersity of [facility] Respiratory rate 2022-01-09 16:30:00 18 /min Univ ersity of [facility] Body height 2022-01-09 16:30:00 162.6 cm [facility]i ty [facility] Body weight 2022-01-09 16:30:00 77.111 kg [facility] BMI 2022-01-09 16:30:00 29.18 kg/m2 Universi ty of [facility] Oxygen saturation in 2022-01-09 16:30:00 97 /min University of Arterial blood by [email or web address] Pulse oximetry Branch BP Diastolic 2021-12-20 00:00:00 92 mm[Hg] [place] [facility] Height 2021-12-20 00:00:00 63 [in_i] [place] [facility] BMI (Body Mass 2021-12-20 00:00:00 31.2 kg/m2 [place] department director Index) [facility] BP Systolic 2021-12-20 00:00:00 136 mm[Hg] [place] [facility] Body Weight 2021-12-20 00:00:00 2816 [oz_av] [place] [facility] BP Diastolic 2021-09-27 00:00:00 83 mm[Hg] [place] [facility] Height 2021-09-27 00:00:00 63 [in_i] [place] [facility] BMI (Body Mass 2021-09-27 00:00:00 31.9 kg/m2 [place] department director Index) [facility] BP Systolic 2021-09-27 00:00:00 143 mm[Hg] [place] [facility] Body Weight 2021-09-27 00:00:00 180 [lb_av] [place] [facility] BP Diastolic 2021-09-20 00:00:00 75 mm[Hg] [place] [facility] Height 2021-09-20 00:00:00 63 [in_i] [place] [facility] BMI (Body Mass 2021-09-20 00:00:00 32.2 kg/m2 [place] department director Index) [facility] BP Systolic 2021-09-20 00:00:00 125 mm[Hg] [place] [facility] Body Weight 2021-09-20 00:00:00 2912 [oz_av] [place] [facility] BP Diastolic 2021-09-06 00:00:00 87 mm[Hg] [place] [facility] Height 2021-09-06 00:00:00 63 [in_i] [place] [facility] BMI (Body Mass 2021-09-06 00:00:00 32.4 kg/m2 [place] department director Index) [facility] BP Systolic 2021-09-06 00:00:00 140 mm[Hg] [place] [facility] Body Weight 2021-09-06 00:00:00 183 [lb_av] [place] [facility] BP Diastolic 2021-08-09 00:00:00 80 mm[Hg] [place] [facility] Height 2021-08-09 00:00:00 63 [in_i] [place] [facility] BMI (Body Mass 2021-08-09 00:00:00 32.8 kg/m2 [place] department director Index) [facility] BP Systolic 2021-08-09 00:00:00 125 mm[Hg] [place] [facility] Body Weight 2021-08-09 00:00:00 2960 [oz_av] [place] [facility] Height 2021-07-05 00:00:00 63 [in_i] [place] [facility] BMI (Body Mass 2021-07-05 00:00:00 34.2 kg/m2 [place] department director Index) [facility] Body Weight 2021-07-05 00:00:00 3088 [oz_av] [place] [facility] Body weight 2021-05-18 21:33:00 81.647 kg [facility] BMI 2021-05-18 21:33:00 30.90 kg/m2 [facility] Height 2021-03-13 14:25:00 162.56 CM Weight 2021-03-13 14:25:00 81.64 KG Height 2020-07-16 13:58:00 162.56 CM Weight 2020-07-16 13:58:00 79.37 KG BP Diastolic 2020-05-18 00:00:00 84 mm[Hg] [place] [facility] Height 2020-05-18 00:00:00 63 [in_i] [place] [facility] BMI (Body Mass 2020-05-18 00:00:00 34.2 kg/m2 [place] department director Index) [facility] BP Systolic 2020-05-18 00:00:00 132 mm[Hg] [place] [facility] Body Weight 2020-05-18 00:00:00 193.3 [lb_av] [place] [facility] BP Diastolic 2020-05-11 00:00:00 84 mm[Hg] [place] [facility] Height 2020-05-11 00:00:00 63 [in_i] [place] [facility] BMI (Body Mass 2020-05-11 00:00:00 34 kg/m2 [place] department director Index) [facility] BP Systolic 2020-05-11 00:00:00 129 mm[Hg] [place] [facility] Body Weight 2020-05-11 00:00:00 191.8 [lb_av] [place] [facility] Weight 2020-05-01 14:58:00 83.91 KG Height 2020-05-01 14:58:00 162.56 CM Systolic blood 2022-08-20 18:08:00 117 mm[Hg] Univer sity of pressure [facility] Diastolic blood 2022-08-20 18:08:00 61 mm[Hg] Unive rsity of [facility] Heart rate 2022-08-20 18:08:00 83 /min [facility] Body temperature 2022-08-20 18:08:00 36.11 [facility] Respiratory rate 2022-08-20 18:08:00 18 /min [facility] Oxygen saturation in 2022-08-20 18:08:00 98 /min [facility] Arterial blood by [facility] Pulse oximetry Branch Body height 2022-08-19 19:23:00 162.6 cm [facility] Body weight 2022-08-19 19:23:00 73.483 kg [facility] BMI 2022-08-19 19:23:00 27.81 kg/m2 [facility] Heart Rate 2022-04-24 20:46:49 [facility] Systolic (mm Hg) 2022-04-24 20:46:25 [facility] Man Diastolic (mm Hg) 2022-04-24 20:46:25 Mem orial [facility] Temperature Oral (F) 2022-04-24 20:46:05 98.4 F [facility] Temperature Oral (F) 2022-04-20 09:04:53 97.4 F [facility] Heart Rate 2022-04-15 08:42:11 [facility] Temperature Oral (F) 2022-04-15 08:41:54 98.2 F [facility] Systolic (mm Hg) 2022-04-15 08:41:36 [facility] rial Man Diastolic (mm Hg) 2022-04-15 08:41:36 Mem orial [facility] Heart Rate 2022-04-15 08:41:36 [facility] Heart Rate 2022-04-15 03:56:06 [facility] Systolic (mm Hg) 2022-04-15 03:56:01 [facility] rial [facility] Diastolic (mm Hg) 2022-04-15 03:56:01 Mem orial Man Temperature Oral (F) 2022-04-15 03:55:44 98.4 F [facility] Systolic (mm Hg) 2022-04-15 00:15:48 [facility] rial [facility] Diastolic (mm Hg) 2022-04-15 00:15:48 Mem orial [facility] Temperature Oral (F) 2022-04-15 00:15:09 98.2 F [facility] Respitory Rate 2022-04-14 21:52:24 Memori al [facility] Respitory Rate 2022-04-14 16:25:34 Rhonda Winters Respitory Rate 2022-04-14 12:59:58 Rhonda Winters Height 2022-04-11 03:50:00 5 [ft_i] Leah Conway Weight 2022-04-11 03:50:00 Leah Conway BMI Calculated 2022-04-11 03:50:00 Rhonda Winters Systolic blood 2022-01-09 16:30:00 135 mm[Hg] Univer sity of pressure [facility] Diastolic blood 2022-01-09 16:30:00 86 mm[Hg] Unive rsity of pressure [facility] Heart rate 2022-01-09 16:30:00 88 /min [facility] Body temperature 2022-01-09 16:30:00 36.28 Leatha [facility] rate 2022-01-09 16:30:00 18 /min [facility] Body height 2022-01-09 16:30:00 162.6 cm [facility] Body weight 2022-01-09 16:30:00 77.111 kg [facility] BMI 2022-01-09 16:30:00 29.18 kg/m2 [facility] Oxygen saturation in 2022-01-09 16:30:00 97 /min [facility] Arterial blood by [facility] Pulse oximetry Branch Procedures Procedure Date / Time Performing Source Performed Clinician REFERRAL- REQUEST/RESPONSE 2022-10-14 Doctor Stratton rsity of 05:01:00 [facility]assigned, [facility] MAMMO, screening, digital, 2022-10-01 [place] bilateral 00:00:00 [facility] REFERRAL- REQUEST/RESPONSE 2022-09-25 Doctor Stratton rsity of 05:01:00 [facility]ass[facility], [facility] EXTERNAL PROVIDER RECORDS 2022-08-29 Doctor Sky oliva of 06:01:00 [facility]assigned, [facility] MAGNESIUM 2022-08-20 Rula Clark [place] of 11:29:00 [facility] BASIC METABOLIC PANEL (NA, K, CL, 2022-08-20 Rula Clark [place] of CO2, GLUCOSE, BUN, CREATININE, CA) 11:29:00 [facility] CBC WITH DIFF 2022-08-20 Rula Clark of 11:29:00 [facility] CBC WITH DIFF 2022-08-20 Rula Clark of 11:29:00 [facility] BASIC METABOLIC PANEL (NA, K, CL, 2022-08-20 Rula Clark of CO2, GLUCOSE, BUN, CREATININE, CA) 11:29:00 [facility] MAGNESIUM 2022-08-20 Rula Clark [place] of 11:29:00 [facility] IR SPINAL LUMBAR PUNCTURE 2022-08-19 Rula Clark Univer sity of DIAGNOSTIC 22:16:35 [facility] IR SPINAL LUMBAR PUNCTURE 2022-08-19 Rula Clark Univer sity of DIAGNOSTIC 22:16:35 [facility] CEREBROSPINAL FLUID PROTEIN 2022-08-19 Rula Clark Univ ersity of 21:57:00 [facility] CEREBROSPINAL FLUID GLUCOSE 2022-08-19 Eduardo, Rula Univ ersity of 21:57:00 [facility] BODY FLUID DIRECT COUNT 2022-08-19 Rula Clarki ty of 21:57:00 [facility] FLOW CYTOMETRY IMMUNOPHENOTYP 2022-08-19 Rula Clark Un iversity of 21:57:00 [facility] FUNGUS (ROUTINE) CULTURE 2022-08-19 Rula Clark Univers ity of 21:57:00 [facility] CSF CULTURE 2022-08-19 Rula Clark [place] of 21:57:00 [facility] BODY FLUID MANUAL DIFF 2022-08-19 Rula Clarkit y of 21:57:00 [facility] CEREBROSPINAL FLUID GLUCOSE 2022-08-19 Rula Clark Univ ersity of 21:57:00 [facility] CEREBROSPINAL FLUID PROTEIN 2022-08-19 Eduardo Rula Univ ersity of 21:57:00 [facility] FUNGUS (ROUTINE) CULTURE 2022-08-19 Rula Clark Univers ity of 21:57:00 [facility] FLOW CYTOMETRY IMMUNOPHENOTYP 2022-08-19 Rula Clark Un iversity of 21:57:00 [facility] CSF CULTURE 2022-08-19 Rula Clark University of 21:57:00 [facility] TRANSTHORACIC ECHO (TTE) COMPLETE 2022-08-19 Prachi, Tomás University of W/ CONTRAST 16:06:35 [facility] TRANSTHORACIC ECHO (TTE) COMPLETE 2022-08-19 [facility] of W/ CONTRAST 16:06:35 [facility] BASIC METABOLIC PANEL (NA, K, CL, 2022-08-19 Yung Rojas of CO2, GLUCOSE, BUN, CREATININE, CA) 10:40:00 [facility] CBC WITH DIFF 2022-08-19 Yung Rojas [place] of 10:40:00 [facility] PROTHROMBIN TIME / INR 2022-08-[address] [facility] y of 10:40:00 [facility] PROTHROMBIN TIME / INR 2022-08-[address] [facility] y of 10:40:00 [facility] BASIC METABOLIC PANEL (NA, K, CL, 2022-08-19 Yung Rojas of CO2, GLUCOSE, BUN, CREATININE, CA) 10:40:00 [facility] CBC WITH DIFF 2022-08-19 Yung Rojas [place] of 10:40:[address] [facility] [address] ANGIOGRAM HEAD 2022-08-18 [facility] o f 23:22:[address] [facility] [address] ANGIOGRAM NECK 2022-08-18 [facility] o f 23:22:[address] [facility] [address] ANGIOGRAM HEAD 2022-08-18 [facility] o f 23:22:[address] [facility] [address] ANGIOGRAM NECK 2022-08-18 [facility] o f 23:22:08 [facility] MR CERVICAL SPINE W WO CONTRAST 2022-08-18 Rula Clark [place] of 16:56:06 [facility] MR CERVICAL SPINE W WO CONTRAST 2022-08-18 Eduardo [facility] of 16:56:06 [facility] MR BRAIN W WO CONTRAST 2022-08-[address] [facility] y of 16:46:57 [facility] MR BRAIN W WO CONTRAST 2022-08-[address] [facility] y of 16:46:57 [facility] MAGNESIUM 2022-08-18 [facility] 10:20:00 [facility] BASIC METABOLIC PANEL (NA, K, CL, 2022-08-18 Rula Clark [place] of CO2, GLUCOSE, BUN, CREATININE, CA) 10:20:00 [facility] CBC WITH DIFF 2022-08-18 [facility] [place] [facility] 10:20:00 [facility] GLYCOSYLATED HEMOGLOBIN (A1C) 2022-08-18 Yung Rojas Un iversity of 10:20:00 [facility] CBC WITH DIFF 2022-08-18 [facility] [place] [facility] 10:20:00 [facility] BASIC METABOLIC PANEL (NA, K, CL, 2022-08-18 Eduardo [facility] of CO2, GLUCOSE, BUN, CREATININE, CA) 10:20:00 [facility] MAGNESIUM 2022-08-18 Eduardo [facility] of 10:20:00 [facility] GLYCOSYLATED HEMOGLOBIN (A1C) 2022-08-18 Yung Rojas Un iversity of 10:20:[address] [facility] [address] VENOGRAM CHEST 2022-08-17 Prachi, [facility] of 13:11:[address] [facility] [address] VENOGRAM CHEST 2022-08-17 Prachi, [facility] of 13:11:40 [facility] LACTATE DEHYDROGENASE 2022-08-17 Prachi, [facility] of 09:28:00 [facility] MAGNESIUM 2022-08-17 Prachi, [facility] of 09:28:00 [facility] VITAMIN B12, LEVEL 2022-08-17 [facility] [place] [facility] 09:28:00 [facility] FOLATE 2022-08-17 Eduardo [facility] of 09:28:00 [facility] BASIC METABOLIC PANEL (NA, K, CL, 2022-08-17 Prachi, [facility] of CO2, GLUCOSE, BUN, CREATININE, CA) 09:28:00 [facility] CBC WITHOUT DIFF 2022-08-17 Prachi, [facility] of 09:28:00 [facility] PROTHROMBIN TIME / INR 2022-08-17 Prachi, [facility] y of 09:28:00 [facility] ACTIVATED PARTIAL THRMPLAS CLAIRE 2022-08-17 Prachi, [facility] of :28:00 [facility] LACTATE DEHYDROGENASE 2022-08-17 Prachi, [facility] of :28:00 [facility] PROTHROMBIN TIME / INR 2022-08-17 Prachi, [facility] y of :28:00 [facility] ACTIVATED PARTIAL THRMPLAS CLAIRE 2022-08-17 Prachi, [facility] of 09:28:00 [facility] BASIC METABOLIC PANEL (NA, K, CL, 2022-08-17 Prachi, [facility] of CO2, GLUCOSE, BUN, CREATININE, CA) 09:28:00 [facility] MAGNESIUM 2022-08-17 Prachi, [facility] of 09:28:00 [facility] CBC WITHOUT DIFF 2022-08-17 Prachi, [facility] of 09:28:00 [facility] VITAMIN B12, LEVEL 2022-08-17 Clark, [facility] of 09:28:00 [facility] FOLATE 2022-08-17 Clark, [facility] of 09:28:00 [facility] XR CHEST 1 VW 2022-08-17 Prachi, [facility] of 01:41:00 [facility] XR KUB 2022-08-17 Prachi, [facility] of 01:41:00 [facility] XR CHEST 1 VW 2022-08-17 Prachi, [facility] of 01:41:00 [facility] XR KUB 2022-08-17 Prachi, [facility] of 01:41:00 [facility] PHOSPHORUS 2022-08-17 Prachi, [facility] of 00:22:00 [facility] URIC ACID 2022-08-17 Prachi, [facility] of 00:22:00 [facility] MAGNESIUM 2022-08-17 Prachi, [facility] of 00:22:00 [facility] COMP. METABOLIC PANEL ([id number]) 2022-08-17 Prachi, Tomás Tal iversity of 00:22:00 [facility] CBC WITH DIFF 2022-08-17 Prachi, [facility] of 00:22:00 [facility] COVID-19 (ID NOW RAPID TESTING) 2022-08-17 Prachi, [facility] of 00:22:00 [facility] LAB ONLY COVID INTERPRETATION 2022-08-17 Prachi, [facility] iversity of 00:22:00 [facility] COVID-19 (ID NOW RAPID TESTING) 2022-08-17 Prachi, [facility] of 00:22:00 [facility] URIC ACID 2022-08-17 Prachi, [facility] of 00:22:00 [facility] CBC WITH DIFF 2022-08-17 Prachi, [facility] of 00:22:00 [facility] COMP. METABOLIC PANEL ([id number]) 2022-08-17 Javier Velardeh Un iversity of 00:22:00 [facility] PHOSPHORUS 2022-08-17 Prachi, [facility] of 00:22:00 [facility] MAGNESIUM 2022-08-17 Prachi, [facility] of 00:22:00 [facility] LAB ONLY COVID INTERPRETATION 2022-08-17 Prachi, Tomás Un iversity of 00:22:00 [facility] HOSPITAL ADMISSION 2022-08-16 [facility] of 06:01:00 Unassigned, [facility] EKG-12 LEAD 2022-06-04 josue, [facility] of 22:15:[address] [facility] [address] CHEST PULMONARY ANGIOGRAM 2022-06-04 Reina, [facility] niversity of 20:01:[address] [facility] [address] CHEST PULMONARY ANGIOGRAM 2022-06-04 Reina, [facility] niversity of 20:01:00 [facility] TROPONIN I 2022-06-04 [facility], [facility] of 16:56:00 [facility] COMP. METABOLIC PANEL ([id number]) 2022-06-04 Reina [facility] of 16:56:00 [facility] CBC WITH DIFF 2022-06-04 [facility], [facility] of 16:56:00 [facility] PROTHROMBIN TIME / INR 2022-06-04 [facility], [facility] ity of 16:56:00 [facility] ACTIVATED PARTIAL THRMPLAS CLAIRE 2022-06-04 josue, [facility] of 16:56:00 [facility] GALV ONLY - INFLUENZA A B RSV PCR 2022-06-04 Reina [facility] of 16:56:00 [facility] N-TERMINAL PRO-BNP 2022-06-04 josue, [facility] of 16:56:00 [facility] COVID-19 (ID NOW RAPID TESTING) 2022-06-04 Reina, [facility] of 16:56:00 [facility] COVID-19 (ID NOW RAPID TESTING) 2022-06-04 jsoue, [facility] of 16:56:00 [facility] GALV ONLY - INFLUENZA A B RSV PCR 2022-06-04 josue, [facility] of 16:56:00 [facility] CBC WITH DIFF 2022-06-04 [facility], [facility] of 16:56:00 [facility] ACTIVATED PARTIAL THRMPLAS CLAIRE 2022-06-04 [facility], [facility] of 16:56:00 [facility] PROTHROMBIN TIME / INR 2022-06-04 [facility] ity of 16:56:00 [facility] COMP. METABOLIC PANEL ([id number]) 2022-06-04 [facility], [facility] of 16:56:00 [facility] TROPONIN I 2022-06-04 [facility] of 16:56:00 [facility] N-TERMINAL PRO-BNP 2022-06-04 [facility] of 16:56:00 [facility] LAB ONLY COVID INTERPRETATION 2022-06-04 [facility] of 16:56:00 [facility] HB ECG ROUTINE & RHYTHM STRIP 2022-06-04 [facility] of 16:43:40 [facility] CONSENT/REFUSAL FOR DIAGNOSIS AND 2022-06-04 [facility] of TREATMENT 16:38:25 Unassigned, No [facility] CONSENT/REFUSAL FOR DIAGNOSIS AND 2022-06-04 [facility] of TREATMENT 16:38:25 Unassigned, No [facility] EMERGENCY SERVICES AGREEMENTS AND 2022-06-04 [facility] of AUTHORIZATIONS 06:01:00 Unassigned, [facility] REFERRAL- REQUEST/RESPONSE 2022-05-21 Doctor Stratton rsity of 06:01:00 Unassigned, [facility] EXTERNAL PROVIDER RECORDS 2022-05-21 Doctor Swanson sity of 06:01:00 Unassigned, No [facility] REFERRAL- REQUEST/RESPONSE 2022-05-21 Doctor Stratton rsity of 06:01:00 Unassigned, No [facility] XR CHEST 1 VW 2022-01-22 Rico [facility] of 15:56:00 [facility] BASIC METABOLIC PANEL (NA, K, CL, 2022-01-22 Rico [facility] of CO2, GLUCOSE, BUN, CREATININE, CA) 15:05:00 [facility] CBC WITH DIFF 2022-01-22 Rico [facility] of 15:05:00 [facility] GALV ONLY - INFLUENZA A B RSV PCR 2022-01-22 iRco [facility] of 15:05:00 [facility] COVID-19 (MOLECULAR TESTING 2022-01-22 Rico, [facility] of NUCLEIC ACID AMPLIFICATION) 15:05:00 [facility] LAB ONLY COVID INTERPRETATION 2022-01-22 Sanjay Gómez [facility] of 15:05:00 [facility] CONSENT/REFUSAL FOR DIAGNOSIS AND 2022-01-22 Doctor [facility] 14:19:06 Unassigned, No [facility] Name Branch CONSENT/REFUSAL FOR DIAGNOSIS AND 2022-01-09 Doctor [facility] 15:20:54 Unassigned, No [facility] Name Branch CONSENT/REFUSAL FOR DIAGNOSIS AND 2022-01-09 [facility] 15:20:54 Unassigned, No [facility] Name Branch CONSENT/REFUSAL FOR DIAGNOSIS AND 2022-01-09 [facility] 15:20:33 Unassigned, No [facility] Name Branch CONSENT/REFUSAL FOR DIAGNOSIS AND 2022-01-09 [facility] 15:20:33 Unassigned, No [facility] Name Branch COVID-19 (ID NOW RAPID TESTING) 2022-01-08 Justino Armendariz [facility] 21:18:00 [facility] LAB ONLY COVID INTERPRETATION 2022-01-08 Justino Armendariz [facility] of 21:18:00 [facility] MAMMO, screening, digital, 2021-12-20 [place] bilateral 00:00:00 [facility] unlisted imaging order 2021-09-27 [place] 00:00:00 [facility] unlisted imaging order 2021-09-20 [place] 00:00:00 [facility] Esophagogastroduodenoscopy 2021-09-13 [place] 00:00:00 [facility] US, abdomen, complete 2021-09-06 [place] 00:00:00 [facility] US, abdomen 2021-08-09 [place] 00:00:00 [facility] MAMMO, screening, digital, 2021-08-09 [place] bilateral 00:00:00 [facility] unlisted imaging order 2021-08-01 [place] 00:00:00 [facility] CHEST X-RAY 2021-07-27 [place] 00:00:00 [facility] SURGICAL PATHOLOGY EXAM 2021-05-18 Kan Magdiel [facility] of 23:20:00 [facility] SURGICAL PATHOLOGY EXAM 2021-05-18 Michaela Scott [facility] of 23:19:00 [facility] MAMMO, screening, bilateral 2020-05-11 Cooper yg 00:00:00 [facility] Delivery [place] [facility] HAT BRIM CURLER Shunt Placement [place] [facility] Appendectomy [place] [facility] Hysterectomy [place] [facility] Plan of Care Planned Activity Planned Date Details Comments Source Diagnostic Test 2022-10-15 cytology report, [place] [facility] Pending 00:00:00 thin prep, smear Health Outr each or scraping, Program cervical or vaginal [code = cytology report, thin prep, smear or scraping, cervical or vaginal] Future Appointment 2022-11-22 Ayala Aguilar, [address] ronquillo [facility]ational 10:45:00 Harvey Obrien , [place], [place] Program [id number] Encounters Start End Encounter Admission Attending Care Care Encounter Source Date/Time Date/Time Type Type Clinicians Facility Department ID 2023-03-12 2023-03-12 Outpatient Sylvia WRIGHT [facility] [id number] Univers 09:30:00 09:30:00 DAYDAY [facility] 2023-03-07 2023-03-07 Outpatient Sylvia WRIGHT [facility] [id number] Univers 10:00:00 10:00:00 DAYDAY [facility] 2023-01-17 2023-01-17 Outpatient JUSTINO ORDAZ [facility] [id number] Univers 14:45:00 14:45:00 [facility] 2022-11-12 2022-11-12 Outpatient Sylvia PATEL [facility] [id number] Univers 09:30:00 09:30:00 JUSTINO dayton [facility] 2022-11-08 2022-11-08 Outpatient ERIC DOE [facility] [id number] Univers 10:00:00 10:00:00 ERIC MIRANDA dayton [facility] 2022-10-25 2022-10-25 Emergency ER RICHMOND ROJAS [facility] [id number] [place] 11:59:00 15:30:00 [id number] [facility] 2022-10-25 2022-10-25 emergency [id number] 11:59:00 15:30:00 [id number] 5eb 2022-10-18 2022-10-18 Outpatient R ERIC MIRANDA [facility] [id number] [facility] 13:00:00 14:48:47 ERIC MIRANDA ity [facility] 2022-10-18 2022-10-18 Office Jen [facility] 1.2.840.[id number] [facility] 13:00:00 14:48:47 Visit Eric [facility] 350.1.13.10 ity of [place] 4.2.7.2.686 Marciano as FREDDY?BLEA [id number] [address] MEDICAL OFFICE BUILDING 2022-10-17 2022-10-18 Outpatient E [facility] [id number] [facility] 22:47:00 02:44:00 OMERINE Medica [facility] 2022-10-15 2022-10-15 Outpatient Rika_Ayala [facility] 103 [id number] [place] 00:00:00 00:00:00 [id number] [facility] 2022-10-15 2022-10-15 Olnohemy [facility] [place] - [id number] [place] 00:00:00 00:00:00 Gregorio Zamora MD: [facility]ational Epi scop 2111 [facility] 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 [id number] 2022-10-14 2022-10-14 Telephone Justino Armendariz [facility] 1.2.840.114 [id number] Univers 00:00:00 00:00:00 R HEALTH 350.1.13.10 it y of EYE 4.2.7.2.686 [facility] [id number] [facility] 136 Branch 2022-10-14 2022-10-14 Orders Doctor CORY 1.2.840.114 [id number] Univers 00:00:00 00:00:00 Only Unassigned, EMILEE 350.1.13.10 ity of [place] [facility] 4.2.7.2.686 Marciano as [id number] [facility] 009 Branch 2022-10-01 2022-10-01 Outpatient Sylvia PATEL [facility] [id number] Univers 11:00:00 11:00:00 JUSTINO ity of [facility] 2022-10-01 2022-10-01 Outpatient Rika[facility] 103 [id number] [place] 00:00:00 00:00:00 [id number] [facility] Program 2022-10-01 2022-10-01 [facility] [id number] [place]or 00:00:00 00:00:00 Rika: [address], [facility] [address] [facility] ac , Ph. h (979) Program 2022-09-27 2022-09-27 Emergency ER Franny, [facility] [id number] [place] 14:36:00 15:35:00 Lorena -[id number] [facility] 2022-09-27 2022-09-27 emergency [id number] 14:36:00 15:35:00 [id number] 5eb 2022-09-25 2022-09-25 Orders Doctor CORY 1.2.840.114 [id number] Univers 00:00:00 00:00:00 Only Unassigned, EMILEE 350.1.13.10 ity of [employer] [place] [facility] 4.2.7.2.686 Marciano as [id number] [facility] 009 Branch 2022-09-23 2022-09-23 Outpatient Rika_Ayala [facility] 103 [id number] [place] 00:00:00 00:00:00 [id number] [facility] 2022-09-23 2022-09-23 Outpatient Saha_Ayala [facility] 103 367- [place] 00:00:00 00:00:00 [id number] [facility] 2022-09-23 2022-09-23 Ayala SHARP [place] - [id number] M at[place]or 00:00:00 00:00:00 Rika: [address], [facility] [address] [facility] ac , Ph. h (979) Program 2022-09-12 2022-09-12 Outpatient LILIYA MEANS [facility] [id number] [place] 07:58:00 07:58:00 [id number] [facility] 2022-09-04 2022-09-04 Outpatient Sylvia WRIGHT [facility] [id number] Univers 13:15:00 13:49:50 DAYDAY hoffman [facility] 2022-09-04 2022-09-04 Physician Interventional Cardiologist Draw, Clc-Bls Lab [facility] 1.2.8 40.114 [id number] Univers 13:15:00 13:30:00 Visit Horacio WrightFormerly [facility] 350.1.13.10 [place] [id number] [place] [address] Branch OFFICE BUILDING 2022-09-04 2022-09-04 Office Adriana [facility] 1.2.840.[id number] [facility] 11:30:00 11:45:00 Visit Located within [facility] 350.1.13.10 it y of [place].686 [place] [id number] [place] [address] Branch OFFICE BUILDING 2022-08-29 2022-08-29 Orders Doctor CORY 1.2.840.114 [id number] Univers 00:00:00 00:00:00 Only Unassigned, EMILEE 350.1.13.10 ity of [place] [facility] 4.2.7.2.686 Marciano as [id number] [facility] 009 Branch 2022-08-26 2022-08-26 Outpatient Saha_Ayala [facility] 103 [id number] [place] 00:00:00 00:00:00 [id number] [facility] 2022-08-26 2022-08-26 Outpatient Saha_Ayala [facility] 103 [id number] [place] 00:00:00 00:00:00 [id number] [facility] 2022-08-26 2022-08-26 Ayala [facility] [place] - [id number] M atagor 00:00:00 00:00:00 Rika: [address]bariel [address], [facility] [address] [facility] , Ph. h (979) Program 2022-08-25 2022-08-25 Outpatient [facility]Ayala [facility] 103 [id number] [place] 00:00:00 00:00:00 [id number] [facility] 2022-08-21 2022-08-21 Transition Thierry, 1.2.840.9 [id number] Univers 00:00:00 00:00:00 of Care Virginie 51184.1.1 i ty 3.104.2.7 [place] .3.806487 Medica l .8 Branch 2022-08-16 2022-08-20 Inpatient U [facility] [id number] Univers 17:40:00 16:08:00 MARCIN hoffman [facility] 2022-08-16 2022-08-20 [facility] 1.2.840.8 [id number] Univers 17:40:00 16:08:00 Amalia Perkins 68360.1.1 itdayton Marcin Soares 3.104.2.7 [place] .3.802616 Medica l .8 Branch 2022-08-20 2022-08-20 Multidisci CORY Singh 1.2.840.114 [id number] Univers 00:00:00 00:00:00 plinary Arely HEBERT 350.1.13.10 it y of [facility] 4.2.7.2.686 [place] [id number] [facility] 011 Branch 2022-08-16 2022-08-16 Travel 1.2.840.1 1.2.774.899 [id number] Univers 00:00:00 00:00:00 27028.1.1 350.1.13.10 ity of 3.104.2.7 4.2.7.3.698 [place] .3.506608 084.8 Medica l .8 Branch 2022-08-15 2022-08-15 Emergency ER MARLENE, [facility] [id number] [place] 17:38:00 20:13:00 ALBERT [id number] [facility] 2022-08-01 2022-08-01 Telephone Justino Armendariz 1.2.840.[id number] [facility] 00:00:00 00:00:00 R 66874.1.1 ity of 3.104.2.7 [place] .3.958322 Medica l .8 Branch 2022-07-16 2022-07-16 Outpatient Saha_Andrea [facility] 103 [id number] [place] 00:00:00 00:00:00 [id number] [facility] 2022-07-16 2022-07-16 Outpatient Saha_Andrea [facility] 103 [id number] [place] 00:00:00 00:00:00 73528 [facility] 2022-07-16 2022-07-16 Outpatient Saha_Andrea [facility] 103 [id number] [place] 00:00:00 00:00:00 [id number] [facility] 2022-07-02 2022-07-02 Outpatient Saha_Andrea [facility] 103 [id number] [place] 00:00:00 00:00:00 [id number] [facility] 2022-06-19 2022-06-19 Outpatient Sylvia BUSBY [facility] [id number] Univers 16:00:00 16:00:00 WILLIAM hoffman [facility] 2022-06-17 2022-06-17 Outpatient LILIYA BARRY [facility] [id number] [place] 09:53:00 09:53:00 JOANNE, -[id number] zoe toney [facility] 2022-06-04 2022-06-04 Emergency X REINA, [facility] ERT [id number] Univers 10:39:00 16:45:00 LUIS ity of [facility] 2022-06-04 2022-06-04 Emergency Kaale, 1.2.840.4 [id number] Univers 10:39:00 16:45:00 Luis Silva 27287.1.1 i ty of 3.104.2.7 [place] .3.879627 Medica l .8 Branch 2022-06-04 2022-06-04 Travel 1.2.840.1 1.2.967.610 [id number] Univers 00:00:00 00:00:00 73333.1.1 350.1.13.10 ity of 3.104.2.7 4.[place].7.3.698 [place] .3.187913 084.8 Medica l .8 [place] 2022-06-03 2022-06-03 Outpatient Rika_Ayala I[facility]ERE [facility] 103 [id number] [place] 00:00:00 00:00:00 [facility] 2022-05-21 2022-05-21 Outpatient [facility]Ayala [facility] 103 [id number] [place] 00:00:00 00:00:00 [facility] 2022-05-21 2022-05-21 Orders Doctor 1.2.840.9 [id number] Univers 00:00:00 00:00:00 Only Unassigned, 58443.1.1 ity of [place] 3.104.2.7 [place] .3.515411 Medica l .8 [place] 2022-05-20 2022-05-20 Outpatient Saha_Ayala I[facility]ERE [facility] 103 [id number] [place] 00:00:00 00:00:00 [id number] [facility] 2022-05-20 2022-05-20 Ayala [facility] [place] - [id number] Venessa jovel 00:00:00 00:00:00 Rika: [address] [facility]ond[facility]ominational Ep[place] p [place], [facility] [address] [facility] , Ph. h (979) Program 2022-05-17 2022-05-17 Outpatient Lavon [facility] [phone] [place] 00:00:00 00:00:00 [id number] [facility] 2022-04-11 2022-04-24 Inpatient [facility] [id number] Memoria 00:29:00 19:45:[address] 2022-04-11 2022-04-24 Inpatient [facility] [id number] Memoria 00:29:00 19:45:00 r Man [address] [place] [address] 2022-04-10 2022-04-24 [facility] [id number] Memoria 19:29:00 14:45:00 MELA [facility] 2022-04-10 2022-04-24 Outpatient Isra, [facility] [id number] 19:29:00 14:45:00 Mela Ramos Rich 2022-04-19 2022-04-19 Outpatient Rika_Ayala [facility] 103 [id number] [place] 00:00:00 00:00:00 [id number] [facility] 2022-04-10 2022-04-10 Outpatient Vivekananth [facility] [id number] 19:29:00 19:29:00 an, 85 Nireshkumar i 2022-04-10 2022-04-10 Emergency E MAY, [facility] [id number] [facility] 11:52:00 18:57:00 MELA Jones [facility] 2022-03-14 2022-03-14 Outpatient Lavon [facility] 103 [id number] [place] 00:00:00 00:00:00 [id number] [facility] 2022-03-14 2022-03-14 [facility] [place] - [id number] M atagor 00:00:00 00:00:00 Reno Lundberg 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 2022-02-13 2022-02-13 Outpatient E NILSA MUNOZ [facility] [id number] [place] 14:40:00 18:30:00 [facility] 2022-01-22 2022-01-22 Emergency X RICO, [facility] ERT [id number] Univers 09:17:00 12:51:00 [facility] ity o f [facility] 2022-01-22 2022-01-22 Emergency Rico, TRAUMA 1.2.661.045 [id number] Univers 09:17:00 12:51:00 [facility] 350.1.13.10 i ty of [place] 4.2.7.2.686 [facility] [id number] [address] 2022-01-10 2022-01-10 Outpatient JUSTINO ORDAZ [facility] [id number] Univers 13:00:00 13:00:00 ity of [facility] 2022-01-10 2022-01-10 Outpatient LILIYA AGUILAR [facility] [id number] [place] 11:02:00 11:02:00 AYALA -[id number] bhavesh [facility] 2022-01-09 2022-01-09 Outpatient JUSTINO ORDAZ [facility] OPH [id number] Univers 10:19:00 11:40:00 ity of [facility] 2022-01-09 2022-01-09 Hospital Justino Armendariz 1.2.840.7 [id number] Univers 10:19:00 11:40:00 Encounter R 63120.1.1 it y of 3.104.2.7 [place] .3.670911 Medica .8 Branch 2022-01-08 2022-01-08 Laboratory Justino Armendariz 1.2.840.1 [id number] Univers 16:15:00 16:30:00 Only Only, Adc Test 93434.1.1 ity of 3.104.2.7 [place] .3.370544 Medica l .8 Branch 2022-01-08 2022-01-08 Outpatient JUSTINO ORDAZ [facility] [id number] Univers 16:15:00 16:15:00 ity of [facility] 2022-01-07 2022-01-07 Travel 1.2.840.1 1.2.499.573 [id number] Univers 00:00:00 00:00:00 87450.1.1 350.1.13.10 ity of 3.104.2.7 4.2.7.3.698 [facility] .3.985727 084.8 Medica l .8 Branch 2022-01-01 2022-01-01 Outpatient Lavon [facility] [place] 00:00:00 00:00:00 09907 [facility] 2021-12-21 2021-12-21 Outpatient Lavon [facility] 103 [place] 08:03:00 08:03:00 01484 [facility] 2021-12-20 2021-12-20 [facility] [id number] - [place] 00:00:00 00:00:00 Rika: 1700 [place] [address] d luis Gabriel [facility] [address] [facility] , Ph. h (979) Program 2021-12-07 2021-12-07 Outpatient Haylee_Susanne [facility] 103 [place] 08:27:00 08:27:00 bin [facility] 2021-11-06 2021-11-06 Outpatient Haylee_Susanne [facility] 103 [place] 02:40:00 02:40:00 bin [facility] 2021-10-05 2021-10-05 Outpatient R[facility]MOND [facility] [id number] [place] 08:08:00 08:08:00 PEDRO [id number] bhaves[facility] 2021-10-03 2021-10-03 Outpatient AMBREEN_FAR [facility] 103 [id number] [place] 02:38:00 02:38:00 CAROLE [facility] 2021-09-27 2021-09-27 Pedro Askew AMBREEN_FAR 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 [address] , Ph. 2021-09-20 2021-09-20 Outpatient LILIYA LEACH [facility] [id number] [place] 09:30:00 09:30:00 PEDRO [id number] [facility] 2021-09-20 2021-09-20 Ayala AMBREEN_[facility] [id number] - [place] 00:00:00 00:00:00 Rika: 1700 CAROLE Bojorquez d a Gabriel [address], [facility] [address] [facility] , Ph. h (979) Program 2021-09-17 2021-09-17 Outpatient AMBREEN_[facility] 103 - [place] 07:00:00 07:00:00 CAROLE [facility] 2021-09-13 2021-09-13 Outpatient LILIYA LEACH [facility] [id number] [place] 10:17:00 10:17:00 PEDRO [id number] [facility] 2021-09-11 2021-09-11 Outpatient AMBREEN_FAR [facility] 103 [place] 10:52:00 10:52:00 CAROLE [facility] 2021-09-06 2021-09-06 Pedro Askew AMBREEN_[facility] 103 [place] 00:00:00 00:00:00 CAROLE Leach bhavesh DOMINGUEZ: 86923 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 2021-09-04 2021-09-04 Outpatient AMBREEN_FAR MEHOP [facility] 103 367 [place] 10:29:00 10:29:00 HANLuis [facility] 2021-08-30 2021-08-30 Outpatient JUSTINO ORDAZ [facility] [id number] Univers 09:15:00 09:15:00 [facility] 2021-08-23 2021-08-23 Outpatient Sylvia ARMENDARIZ JUSTINO [facility] [id number] Univers 08:30:00 08:30:00 [facility] 2021-08-10 2021-08-10 Outpatient AMBREEN_FAR IAHOP [facility] 103 [place] 09:12:00 09:12:00 CAROLE [facility] 2021-08-09 2021-08-09 Ayala AMBREEN_FAR [facility] - [id number] - [place] 00:00:00 00:00:00 Rika: 1700 CAROLE Bojorquez [address] zoe a Gabriel [address], [facility] [place] [address] [facility] ac , Ph. h (979) Program 2021-08-08 2021-08-08 Outpatient AMBREEN_FAR [facility] 103 [place] 10:12:00 10:12:00 [facility] 2021-07-28 2021-07-28 [facility] [id number] [place] 11:52:00 11:52:00 AYALA [id number] [facility]ly [facility] 2021-07-28 2021-07-28 Outpatient AMBREEN_FAR [facility] [id number] [place] 08:02:00 08:02:00 [facility]LE [facility] 2021-07-27 2021-07-27 Ayala [facility] [place] - [id number] [place] 00:00:00 00:00:00 Rika: [id number] [address], [facility] [address] Expansion Out reac , Ph. h (979) Program 2021-07-05 2021-07-05 Outpatient Koudela_A [facility] MMG [id number] [place] 01:22:00 01:22:00 0106 Medical Group 2021-07-05 2021-07-05 Ayala [facility] [place] - [id number] [place] 00:00:00 00:00:00 Rika: [id number], [facility] [address] Expansion Out reac , Ph. h (979) Program 2021-05-22 2021-05-22 Telephone MarcelloJustino [facility] [id number] Univers 00:00:00 00:00:00 R Y [id number] it y of NATIONAL [id number] Marciano as BANK [phone] [facility]. 60 [place] [address] 2021-05-18 2021-05-18 Office Justino Armendariz [facility] [id number] Univers 15:22:02 17:55:12 Visit R Y 350.1.13.10 it y of NATIONAL [id number] Marciano as BANK [phone] [facility]. [address] 2021-05-18 2021-05-18 Outpatient R JUSTINO ARMENDARIZ [facility] [id number] Univers 15:15:00 17:55:12 ity [facility] 2021-05-18 2021-05-18 Outpatient R JUSTINO ARMENDARIZ [facility] [id number] Univers 15:15:00 17:55:12 ity [facility] 2021-05-18 2021-05-18 Orders Doctor CORY 1.2.840.114 [id number] Univers 00:00:00 00:00:00 Only Unassigned, EMILEE 350.1.13.10 ity of [facility] 4.2.7.2.686 Marciano as [phone] [address] 2021-03-13 2021-03-13 Outpatient E TAMIKA MARICRUZ [facility] 083 [id number] [place] 14:19:00 17:29:00 [facility] [place] 2021-02-16 2021-02-16 Office Justino Armendariz [facility] [id number] Univers 09:16:35 09:31:35 Visit R [place] 350.1.13.10 it y of [facility] [id number] Marciano as BANK [phone] [facility] [address] 2021-02-16 2021-02-16 Outpatient R JUSTINO ARMENDARIZ [facility] [id number] Univers 09:30:00 09:30:00 ity of [facility] 2021-02-09 2021-02-09 Office ASHIA Espinosa [id number] Univers 15:29:00 15:44:00 Visit Estrellita Mazariegos 350.1.13.10 i ty [facility] 4.2.7.2.686 Marciano as BANK [phone] [facility] [address] 2021-02-09 2021-02-09 [facility] [id number] Univers 15:15:00 15:15:00 ESTRELLITA ity o f [facility] 2020-07-16 2020-07-16 Outpatient E KAYLI [facility] [id number] [place] 13:58:00 18:20:00 PATRICK [facility] [place] 2020-05-18 2020-05-18 Natalie [place] - [id number] -202 [place] 00:00:00 00:00:00 Ministerio Bojorquez [id number] da Jaleel, Nondenominational Episco p PA: [address] A, [place] [address] , Ph. 2020-05-17 2020-05-17 Outpatient Clarissa_Yash [facility] [address] [place] 02:29:00 02:29:00 1118 [facility] 2020-05-15 2020-05-15 Outpatient AMBREEN_FAR [facility] [phone] [place] 03:58:00 03:58:00 HANA [address] [facility] 2020-05-11 2020-05-11 Natalie AMBREEN_FAR [facility] [place] - [phone] -202 [place] 00:00:00 00:00:00 Ministerio LAM [place] [address] da Jaleel, Nond[place]ominational [place] p PA: [address], [place] [address] , Ph. 2020-05-02 2020-05-02 Outpatient AMBREEN_FAR [facility] [phone] [place] 03:57:00 03:57:00 HANA [address] [facility] 2020-05-01 2020-05-01 Outpatient Leora ESTEVEZ, [facility] [id number] [facility] 14:58:00 16:40:00 WASIM Medica [facility] 2019-12-15 2019-12-15 [facility] 1.2.840.114 [id number] Univers 12:40:00 13:00:00 Visit [facility] 350.1.13.10 it [id number] [phone] [address] Office Building 2019-12-15 2019-12-15 Outpatient R [facility] [id number] Univers 12:40:00 12:40:00 DAYDAY hoffman [facility] 2019-12-15 2019-12-15 Orders Doctor RAY 1.2.840.114 [id number] Univers 00:00:00 00:00:00 Only Unassigned, EMILEE 350.1.13.10 ity of [facility] 4.2.7.2.686 Marciano as [phone] [facility] [address] 2019-12-15 2019-12-15 Telephone Adriana KSPOLO 1.2.840.114 [id number] Univers 00:00:00 00:00:00 Dayday SPECIALTY 350.1.13.10 [place] [phone] [facility] [address] 2019-12-02 2019-12-02 Telephone Adriana [facility] 1.2.840.114 [id number] Univers 00:00:00 00:00:00 [facility] 350.1.13.10 it [place] [phone] [place] [address] [address] Office Building 2017-05-01 2017-05-01 Emergency TR PATRICESTEFANIA [facility] [id number] [place] 10:53:00 13:51:00 SELVIN -[id number] [facility] 2016-08-23 2016-08-23 Emergency ER PATRICESTEFANIA [facility] [id number] [place] 10:01:00 11:43:00 SELVIN -[id number] [facility] 2016-07-24 2016-07-24 Outpatient LILIYA CLARISSA [facility] [id number] [place] 11:52:00 11:52:00 SIMONE -[id number] [facility] 2016-07-18 2016-07-21 Inpatient ER BRIANA [facility] [id number] [place] 21:35:00 16:16:00 AG -[id number] [facility] Results Test Description Test Time Test Comments Results Result Comments Source TROPONIN I OW 2022-10-18 00:20:00 Test Item Value Reference Range Interpretation Comme nts TROPONIN I (test code = <0.05 ng/mL See_Comment [Au tomated message] The system saperatecI) which generated this result transmitted ref erence range: <=0.05. The ref erence range was not used to int erpret this result as normal/abnor mal. GENERAL CHEMISTRY 13 *OW* [id number] 23:41:00 Test Item Value Reference Range Interpretation Comments GLUCOSE (test code = GGUL) 144 mg/dL 73-118 H BUN (test code = GBUN) 13 mg/dL 7-22 CREATININE (test code = GCRE) 0.6 mg/dL 0.6-1.2 URIC ACID (test code = GUA) 4.0 mg/dL 2.2-6.6 CALCIUM (test code = GCL+) 8.9 mg/dL 8.0-10.3 ALBUMIN (test code = GALB) 3.2 g/dL 3.5-5.5 L PROTEIN (test code = GTP) 6.1 g/dL 6.4-8.1 L ALT (test code = GALT) 31 U/L 10-47 AST (test code = FORTUNATO) 21 U/L 11-38 ALK PHOS (test code = GALP) 110 U/L 42-141 BILI TOTAL (test code = GTBIL) 0.5 mg/dL 0.2-1.6 GGT (test code = GGGT) 67 U/L 5-65 H AMYLASE (test code = GAMY) 44 U/L 14-97 [employer] 8 Panel *OW* [id number] 23:41:00 Test Item Value Reference Range Interpretation Comments GLUCOSE (test code = GGUL) 144 mg/dL 73-118 H BUN (test code = GBUN) 13 mg/dL 7-22 CREATININE (test code = GCRE) 0.6 mg/dL 0.6-1.2 CK TOTAL (test code = GCK) 56 U/L 30-190 SODIUM (test code = GNA+) 136 mmol/L 128-145 POTASSIUM (test code = GK+) 3.1 mmol/L 3.6-5.1 L CHLORIDE (test code = GCL-) 107 mmol/L 98-108 TCO2 (test code = GTC02) 26 mmol/L 18-33 CBC (INCLUDES AUTOMATED DIFFERENTIAL) *2022-10-17 23:33:00 Test Item Value Reference Range Interpretation Comments WBC (test code = WBC) 3.1 10\\S\\3/uL 4.5-11.0 L RBC (test code = RBC) 4.04 10\\S\\6/uL 4.20-5.60 L HGB (test code = HBG) 11.3 g/dL 12.0-15.5 L HCT (test code = HCT) 35.7 % 35.0-44.0 MCV (test code = MCV) 88.3 fL 81.0-99.0 MCH (test code = MCH) 28.0 pg 27.0-31.0 MCHC (test code = MCHC) 31.7 g/dL 32.0-36.0 L RDW (test code = RDW) 15.4 % 11.5-14.5 H PLT (test code = PLT) 245 10\\S\\3/uL 130-400 MPV (test code = OMPV) 7.9 fL 6.2-10.2 NEUTROP # (test code = NE#) 2.4 10\\S\\3/uL 1.6-8.0 LYMPH # (test code = LY#) 0.6 10\\S\\3/uL 1.1-3.5 L MID # (test code = GMID#) 0.1 10\\S\\3/uL 0.0-1.1 GRAN % (test code = GRA%) 76.9 % 35.0-73.0 H LYMPH % (test code = GLY%) 20.7 % 20.0-55.0 MID % (test code = GMID%) 2.4 % 0.0-10.0 Comprehensive metabolic 2000 panel - Serum or [id number] 00:00:00 Test Item Value Reference Range Interpretation Comments Glucose [Mass/volume] in 108 mg/dL 70-99 H Serum or Plasma (test code = 2345-7) Urea nitrogen [Mass/volume] 5 mg/dL 6-24 L in Serum or Plasma (test code = 3094-0) Creatinine [Mass/volume] in 0.54 mg/dL 0.57-1.00 L Serum or Plasma (test code = 2160-0) Glomerular filtration 109 mL/min/1.73 >59 rate/1.73 sq M.predicted [Volume Rate/Area] in Serum, Plasma or Blood by Creatinine-based formula (CKD-EPI 2020) (test code = 97158-0) Urea nitrogen/Creatinine 9 9-23 [Mass Ratio] in Serum or Plasma (test code = 3097-3) Sodium [Moles/volume] in 145 mmol/L 134-144 H Serum or Plasma (test code = 2951-2) Potassium [Moles/volume] in 4.1 mmol/L 3.5-5.2 Serum or Plasma (test code = 2823-3) Chloride [Moles/volume] in 107 mmol/L 96-106 H Serum or Plasma (test code = 2074-0) Carbon dioxide, total 23 mmol/L 20-29 [Moles/volume] in Serum or Plasma (test code = 2027-9) Calcium [Mass/volume] in 9.4 mg/dL 8.7-10.2 Serum or Plasma (test code = 51604-4) Protein [Mass/volume] in 6.1 g/dL 6.0-8.5 Serum or Plasma (test code = 2885-2) Albumin [Mass/volume] in 4.2 g/dL 3.8-4.9 Serum or Plasma (test code = 1751-7) Globulin [Mass/volume] in 1.9 g/dL 1.5-4.5 Serum by calculation (test code = 24295-2) Albumin/Globulin [Mass Ratio] 2.2 1.2-2.2 in Serum or Plasma (test code = 1759-0) Bilirubin.total [Mass/volume] <0.2 0.0-1.2 in Serum or Plasma (test code = 1974-2) Alkaline phosphatase 116 IU/L 44-121 [Enzymatic activity/volume] in Serum or Plasma (test code = 6768-6) Aspartate aminotransferase 15 IU/L 0-40 [Enzymatic activity/volume] in Serum or Plasma (test code = 1920-8) Alanine aminotransferase 24 IU/L 0-32 [Enzymatic activity/volume] in Serum or Plasma (test code = 1742-6) [facility] - Serum or [id number] 00:00:00 Test Item Value Reference Range Interpretation Comments Thyrotropin [Units/volume] in 1.480 uIU/mL 0.450-4.500 Serum or Plasma by Detection limit <= 0.005 mIU/L (test code = 14124-3) Thyroxine (T4) free 0.93 NG/dL 0.82-1.77 [Mass/volume] in Serum or Plasma (test code = 3024-7) [facility] Auto Differential panel - Blood 2022-09-25 00:00:00 Test Item Value Reference Range Interpretation Comments Leukocytes [#/volume] in Blood 4.5 x10e3/uL 3.4-10.8 by Automated count (test code = 6690-2) Erythrocytes [#/volume] in 4.11 x10e6/uL 3.77-5.28 Blood by Automated count (test code = 789-8) Hemoglobin [Mass/volume] in 11.3 g/dL 11.1-15.9 Blood (test code = 718-7) Hematocrit [Volume Fraction] of 34.7 % 34.0-46.6 Blood by Automated count (test code = 4544-3) Erythrocyte mean corpuscular 84 fL 79-97 volume [Entitic volume] by Automated count (test code = 787-2) Erythrocyte mean corpuscular 27.5 pg 26.6-33.0 hemoglobin [Entitic mass] by Automated count (test code = 785-6) Erythrocyte mean corpuscular 32.6 g/dL 31.5-35.7 hemoglobin concentration [Mass/volume] by Automated count (test code = 786-4) Erythrocyte distribution width 15.8 % 11.7-15.4 H [Ratio] by Automated count (test code = 788-0) Platelets [#/volume] in Blood 283 x10e3/uL 150-450 by Automated count (test code = 777-3) Neutrophils/100 leukocytes in 44 % not estab. Blood by Automated count (test code = 770-8) Lymphocytes/100 leukocytes in 33 % not estab. Blood by Automated count (test code = 736-9) Monocytes/100 leukocytes in 16 % not estab. Blood by Automated count (test code = 5905-5) Eosinophils/100 leukocytes in 4 % not estab. Blood by Automated count (test code = 713-8) Basophils/100 leukocytes in 2 % not estab. Blood by Automated count (test code = 706-2) immature cells (test code = apparel patternmaker immature cells) Neutrophils [#/volume] in Blood 2.0 x10e3/uL 1.4-7.0 by Automated count (test code = 751-8) Lymphocytes [#/volume] in Blood 1.5 x10e3/uL 0.7-3.1 by Automated count (test code = 731-0) Monocytes [#/volume] in Blood 0.7 x10e3/uL 0.1-0.9 by Automated count (test code = 742-7) Eosinophils [#/volume] in Blood 0.2 x10e3/uL 0.0-0.4 by Automated count (test code = 711-2) Basophils [#/volume] in Blood 0.1 x10e3/uL 0.0-0.2 by Automated count (test code = 704-7) Immature granulocytes/100 1 % not estab. leukocytes in Blood by Automated count (test code = 81708-6) Immature granulocytes 0.0 x10e3/uL 0.0-0.1 [#/volume] in Blood by Automated count (test code = 52101-2) Nucleated erythrocytes/100 apparel patternmaker leukocytes [Ratio] in Blood by Automated count (test code = 29139-1) Morphology [Interpretation] in apparel patternmaker Blood Narrative (test code = 89797-3) [facility] panel - Serum or Plasma 2022-09-25 00:00:00 Test Item Value Reference Range Interpretation Comments Cholesterol [Mass/volume] in Serum 193 mg/dL 100-199 or Plasma (test code = 2093-3) Triglyceride [Mass/volume] in Serum 208 mg/dL 0-149 H or Plasma (test code = 2571-8) Cholesterol in HDL [Mass/volume] in 49 mg/dL >39 Serum or Plasma (test code = 2085-9) Cholesterol in VLDL [Mass/volume] 36 mg/dL 5-40 in Serum or Plasma by calculation (test code = 47941-0) Cholesterol in LDL [Mass/volume] in 108 mg/dL 0-99 H Serum or Plasma by calculation (test code = 56735-3) Laboratory comment [Text] in Report apparel patternmaker Narrative (test code = 43385-9) [facility]+Cyanocobalamin [Interpretation] in Serum or [id number] 00:00:00 Test Item Value Reference Range Interpretation Comments Cobalamin (Vitamin B12) 663 pg/mL 232-1245 [Mass/volume] in Serum or Plasma (test code = 2132-9) Folate [Mass/volume] in Serum or 16.6 NG/mL >3.0 Plasma (test code = 2284-8) [facility]Hem[facility] A1c/Hemoglobin.total in [id number] 00:00:00 Test Item Value Reference Range Interpretation Comments Hemoglobin A1c/Hemoglobin.total in 6.2 % 4.8-5.6 H Blood (test code = 4548-4) [facility]-Hydroxyvitamin D3+25- Hydroxyvitamin D2 [Mass/volume] in Serum or [id number] 00:00:00 Test Item Value Reference Range Interpretation Comments 25-Hydroxyvitamin 19.1 NG/mL 30.0-100.0 L D3+25-Hydroxyvitamin D2 [Mass/volume] in Serum or Plasma (test code = 00583-0) [facility] and 2 tests - Meaningful Use [id number] 00:00:00 Test Item Value Reference Range Interpretation Comments HIV 1+2 Ab+HIV1 p24 Ag non reactive non reactive [Presence] in Serum or Plasma by Immunoassay (test code = 73987-4) [facility] assessment panel, [id number] 00:00:00 Test Item Value Reference Range Interpretation Comments Interpretation and review of laboratory note results (test code = 68727-0) Report (test code = 60234-1) . [facility]ham[facility]inalysis complete W Reflex Culture panel - [id number] 00:00:00 Test Item Value Reference Range Interpretation Comments Specific gravity of Urine by Test 1.016 1.005-1.030 strip (test code = 5811-5) pH of Urine by Test strip (test 5.0 5.0-7.5 code = 5803-2) Color of Urine (test code = yellow yellow 5778-6) Appearance of Urine (test code = clear clear 5767-9) Leukocyte esterase [Presence] in negative negative Urine by Test strip (test code = 5799-2) Protein [Presence] in Urine by negative negative/trace Test strip (test code = 11459-4) Glucose [Presence] in Urine by negative negative Test strip (test code = 17504-4) Ketones [Presence] in Urine by negative negative Test strip (test code = 2514-8) Hemoglobin [Presence] in Urine by negative negative Test strip (test code = 5794-3) Bilirubin.total [Presence] in negative negative Urine by Test strip (test code = 5770-3) Urobilinogen [Mass/volume] in 0.2 mg/dL 0.2-1.0 Urine by Test strip (test code = 96665-8) Nitrite [Presence] in Urine by negative negative Test strip (test code = 5802-4) Microscopic observation see below: [Identifier] in Urine sediment by Light microscopy (test code = 20977-4) Leukocytes [#/area] in Urine 0-5 0-5 sediment by Microscopy high power field (test code = 5821-4) Erythrocytes [#/area] in Urine none seen 0-2 sediment by Microscopy high power field (test code = 14492-8) Epithelial cells [#/area] in Urine 0-10 0-10 sediment by Microscopy high power field (test code = 5787-7) Epithelial cells.renal [#/area] in apparel patternmaker Urine sediment by Microscopy high power field (test code = 74335-5) Casts [Presence] in Urine sediment none seen none seen by Light microscopy (test code = 38457-1) Casts [Type] in Urine sediment by apparel patternmaker Light microscopy (test code = 42091-3) Unidentified crystals [Presence] apparel patternmaker in Urine sediment by Light microscopy (test code = 5783-6) Crystals [type] in Urine sediment apparel patternmaker by Light microscopy (test code = 5782-8) Mucus [Presence] in Urine sediment apparel patternmaker by Light microscopy (test code = 8247-9) Bacteria [#/area] in Urine none seen none seen/few sediment by Microscopy high power field (test code = 5769-5) Yeast [#/area] in Urine sediment apparel patternmaker by Microscopy high power field (test code = 5822-2) Trichomonas vaginalis [Presence] apparel patternmaker in Urine sediment by Light microscopy (test code = 5813-1) Urine sediment comments by Light apparel patternmaker microscopy Narrative (test code = 51092-1) urinalysis reflex (test code = comment urinalysis reflex) [facility] ProgramComprehensive metabolic 2000 panel - Serum or [id number] 00:00:00 Test Item Value Reference Range Interpretation Comments Glucose [Mass/volume] in 108 mg/dL 70-99 H Serum or Plasma (test code = 2345-7) Urea nitrogen [Mass/volume] 5 mg/dL 6-24 L in Serum or Plasma (test code = 3094-0) Creatinine [Mass/volume] in 0.54 mg/dL 0.57-1.00 L Serum or Plasma (test code = 2160-0) Glomerular filtration 109 mL/min/1.73 >59 rate/1.73 sq M.predicted [Volume Rate/Area] in Serum, Plasma or Blood by Creatinine-based formula (CKD-EPI 2020) (test code = 85541-8) Urea nitrogen/Creatinine 9 9-23 [Mass Ratio] in Serum or Plasma (test code = 3097-3) Sodium [Moles/volume] in 145 mmol/L 134-144 H Serum or Plasma (test code = 2951-2) Potassium [Moles/volume] in 4.1 mmol/L 3.5-5.2 Serum or Plasma (test code = 2823-3) Chloride [Moles/volume] in 107 mmol/L 96-106 H Serum or Plasma (test code = 2074-0) Carbon dioxide, total 23 mmol/L 20-29 [Moles/volume] in Serum or Plasma (test code = 2027-) Calcium [Mass/volume] in 9.4 mg/dL 8.7-10.2 Serum or Plasma (test code = 46636-8) Protein [Mass/volume] in 6.1 g/dL 6.0-8.5 Serum or Plasma (test code = 2885-2) Albumin [Mass/volume] in 4.2 g/dL 3.8-4.9 Serum or Plasma (test code = 1751-7) Globulin [Mass/volume] in 1.9 g/dL 1.5-4.5 Serum by calculation (test code = 12196-0) Albumin/Globulin [Mass Ratio] 2.2 1.2-2.2 in Serum or Plasma (test code = 1759-0) Bilirubin.total [Mass/volume] <0.2 0.0-1.2 in Serum or Plasma (test code = 1974-2) Alkaline phosphatase 116 IU/L 44-121 [Enzymatic activity/volume] in Serum or Plasma (test code = 6768-6) Aspartate aminotransferase 15 IU/L 0-40 [Enzymatic activity/volume] in Serum or Plasma (test code = 1920-8) Alanine aminotransferase 24 IU/L 0-32 [Enzymatic activity/volume] in Serum or Plasma (test code = 1742-6) [facility] T[facility] and TSH panel - Serum or [id number] 00:00:00 Test Item Value Reference Range Interpretation Comments Thyrotropin [Units/volume] in 1.480 uIU/mL 0.450-4.500 Serum or Plasma by Detection limit <= 0.005 mIU/L (test code = 22627-5) Thyroxine (T4) free 0.93 NG/dL 0.82-1.77 [Mass/volume] in Serum or Plasma (test code = 3024-7) [facility] W Auto Differential panel - Blood 2022-09-25 00:00:00 Test Item Value Reference Range Interpretation Comments Leukocytes [#/volume] in Blood 4.5 x10e3/uL 3.4-10.8 by Automated count (test code = 6690-2) Erythrocytes [#/volume] in 4.11 x10e6/uL 3.77-5.28 Blood by Automated count (test code = 789-8) Hemoglobin [Mass/volume] in 11.3 g/dL 11.1-15.9 Blood (test code = 718-7) Hematocrit [Volume Fraction] of 34.7 % 34.0-46.6 Blood by Automated count (test code = 4544-3) Erythrocyte mean corpuscular 84 fL 79-97 volume [Entitic volume] by Automated count (test code = 787-2) Erythrocyte mean corpuscular 27.5 pg 26.6-33.0 hemoglobin [Entitic mass] by Automated count (test code = 785-6) Erythrocyte mean corpuscular 32.6 g/dL 31.5-35.7 hemoglobin concentration [Mass/volume] by Automated count (test code = 786-4) Erythrocyte distribution width 15.8 % 11.7-15.4 H [Ratio] by Automated count (test code = 788-0) Platelets [#/volume] in Blood 283 x10e3/uL 150-450 by Automated count (test code = 777-3) Neutrophils/100 leukocytes in 44 % not estab. Blood by Automated count (test code = 770-8) Lymphocytes/100 leukocytes in 33 % not estab. Blood by Automated count (test code = 736-9) Monocytes/100 leukocytes in 16 % not estab. Blood by Automated count (test code = 5905-5) Eosinophils/100 leukocytes in 4 % not estab. Blood by Automated count (test code = 713-8) Basophils/100 leukocytes in 2 % not estab. Blood by Automated count (test code = 706-2) immature cells (test code = apparel patternmaker immature cells) Neutrophils [#/volume] in Blood 2.0 x10e3/uL 1.4-7.0 by Automated count (test code = 751-8) Lymphocytes [#/volume] in Blood 1.5 x10e3/uL 0.7-3.1 by Automated count (test code = 731-0) Monocytes [#/volume] in Blood 0.7 x10e3/uL 0.1-0.9 by Automated count (test code = 742-7) Eosinophils [#/volume] in Blood 0.2 x10e3/uL 0.0-0.4 by Automated count (test code = 711-2) Basophils [#/volume] in Blood 0.1 x10e3/uL 0.0-0.2 by Automated count (test code = 704-7) Immature granulocytes/100 1 % not estab. leukocytes in Blood by Automated count (test code = 86992-1) Immature granulocytes 0.0 x10e3/uL 0.0-0.1 [#/volume] in Blood by Automated count (test code = 68450-0) Nucleated erythrocytes/100 apparel patternmaker leukocytes [Ratio] in Blood by Automated count (test code = 95389-1) Morphology [Interpretation] in apparel patternmaker Blood Narrative (test code = 92921-6) [facility] 1996 panel - Serum or Plasma 2022-09-25 00:00:00 Test Item Value Reference Range Interpretation Comments Cholesterol [Mass/volume] in Serum 193 mg/dL 100-199 or Plasma (test code = 2093-3) Triglyceride [Mass/volume] in Serum 208 mg/dL 0-149 H or Plasma (test code = 2571-8) Cholesterol in HDL [Mass/volume] in 49 mg/dL >39 Serum or Plasma (test code = 2085-9) Cholesterol in VLDL [Mass/volume] 36 mg/dL 5-40 in Serum or Plasma by calculation (test code = 98816-8) Cholesterol in LDL [Mass/volume] in 108 mg/dL 0-99 H Serum or Plasma by calculation (test code = 29152-5) Laboratory comment [Text] in Report apparel patternmaker Narrative (test code = 19754-8) [facility]+Cyanocobalamin [Interpretation] in Serum or [id number] 00:00:00 Test Item Value Reference Range Interpretation Comments Cobalamin (Vitamin B12) 663 pg/mL 232-1245 [Mass/volume] in Serum or Plasma (test code = 2132-9) Folate [Mass/volume] in Serum or 16.6 NG/mL >3.0 Plasma (test code = 2284-8) [facility]ham[facility]em[facility] A1c/Hemoglobin.total in [id number] 00:00:00 Test Item Value Reference Range Interpretation Comments Hemoglobin A1c/Hemoglobin.total in 6.2 % 4.8-5.6 H Blood (test code = 4548-4) [facility]-Hydroxyvitamin D3+25- Hydroxyvitamin D2 [Mass/volume] in Serum or [id number] 00:00:00 Test Item Value Reference Range Interpretation Comments 25-Hydroxyvitamin 19.1 NG/mL 30.0-100.0 L D3+25-Hydroxyvitamin D2 [Mass/volume] in Serum or Plasma (test code = 42499-8) [facility]ham[facility] 1 and 2 tests - Meaningful Use [id number] 00:00:00 Test Item Value Reference Range Interpretation Comments HIV 1+2 Ab+HIV1 p24 Ag non reactive non reactive [Presence] in Serum or Plasma by Immunoassay (test code = 32840-3) [facility] panel, [id number] 00:00:00 Test Item Value Reference Range Interpretation Comments Interpretation and review of laboratory note results (test code = 64759-0) Report (test code = 37244-7) . [facility]ham[facility]inalysis complete W Reflex Culture panel - [id number] 00:00:00 Test Item Value Reference Range Interpretation Comments Specific gravity of Urine by Test 1.016 1.005-1.030 strip (test code = 5811-5) pH of Urine by Test strip (test 5.0 5.0-7.5 code = 5803-2) Color of Urine (test code = yellow yellow 5778-6) Appearance of Urine (test code = clear clear 5767-9) Leukocyte esterase [Presence] in negative negative Urine by Test strip (test code = 5799-2) Protein [Presence] in Urine by negative negative/trace Test strip (test code = 98109-8) Glucose [Presence] in Urine by negative negative Test strip (test code = 34361-5) Ketones [Presence] in Urine by negative negative Test strip (test code = 2514-8) Hemoglobin [Presence] in Urine by negative negative Test strip (test code = 5794-3) Bilirubin.total [Presence] in negative negative Urine by Test strip (test code = 5770-3) Urobilinogen [Mass/volume] in 0.2 mg/dL 0.2-1.0 Urine by Test strip (test code = 85637-9) Nitrite [Presence] in Urine by negative negative Test strip (test code = 5802-4) Microscopic observation see below: [Identifier] in Urine sediment by Light microscopy (test code = 61097-4) Leukocytes [#/area] in Urine 0-5 0-5 sediment by Microscopy high power field (test code = 5821-4) Erythrocytes [#/area] in Urine none seen 0-2 sediment by Microscopy high power field (test code = 76276-6) Epithelial cells [#/area] in Urine 0-10 0-10 sediment by Microscopy high power field (test code = 5787-7) Epithelial cells.renal [#/area] in apparel patternmaker Urine sediment by Microscopy high power field (test code = 04257-0) Casts [Presence] in Urine sediment none seen none seen by Light microscopy (test code = 80270-9) Casts [Type] in Urine sediment by apparel patternmaker Light microscopy (test code = 74651-3) Unidentified crystals [Presence] apparel patternmaker in Urine sediment by Light microscopy (test code = 5783-6) Crystals [type] in Urine sediment apparel patternmaker by Light microscopy (test code = 5782-8) Mucus [Presence] in Urine sediment apparel patternmaker by Light microscopy (test code = 8247-9) Bacteria [#/area] in Urine none seen none seen/few sediment by Microscopy high power field (test code = 5769-5) Yeast [#/area] in Urine sediment apparel patternmaker by Microscopy high power field (test code = 5822-2) Trichomonas vaginalis [Presence] apparel patternmaker in Urine sediment by Light microscopy (test code = 5813-1) Urine sediment comments by Light apparel patternmaker microscopy Narrative (test code = 03347-6) urinalysis reflex (test code = comment urinalysis reflex) [facility] Capillary [id number] 14:32:00 Test Item Value Reference Range Interpretation Comments Blood Glucose: mg/dl (test code = Blood 97 Glucose: mg/dl) [facility] [Mass/volume] in Capillary [id number] 14:32:00 Test Item Value Reference Range Interpretation Comments Blood Glucose: mg/dl (test code = Blood 97 Glucose: mg/dl) [facility] ([facility]2022-08-19 23:14:36 Test Item Value Reference Range Interpretation Comments Height (test code = 64 in 3202888596) Weight (test code = 162 lbs 6429639380) Systolic BP (test code = 108 mmHg 4615849186) Diastolic BP (test code 64 mmHg = 1122721853) Heart Rate (test code = 83 bpm 9560879086) LV GLS Endo Peak A2C -14.10 % () (test code = 5811932198) LV GLS Endo Peak A3C -16.20 % () (test code = 0164057537) LV GLS Endo Peak A4C -15.80 % () (test code = 5231280584) LV GLS Endo Peak Avg -15.30 % () (test code = 7045538303) BSA (test code = 1.79 m2 9523473786) LVOT diameter (test code 1.97 cm = 4910007188) LVOT area (test code = 3.00 cm2 2102162816) Ao root diam (test code 2.36 cm = 3855152469) Aortic root (test code = 2.36 cm 7157339961) Ao root annulus (test 2.36 cm code = 4185325933) LA size (test code = 3.5 cm 2684363560) E wave decelartion time 0.24 s (test code = 1016906532) MV Peak A Clarita (test code 69.1 cm/s = 8583056253) MV Peak E Clarita (test code 59.5 cm/s = 4150052525) E/A ratio (test code = 0.86 ratio 4973944788) MV Prop V (test code = 29.30 cm/s 6371619964) LAV(MOD-sp4) (test code 21.60 mL = 6754680695) MV E/e' septal (test 8.1 cm/s code = 4660285104) Tapse (test code = 1.94 cm 8282685848) TR Peak Clarita (test code = 208.8 cm/s 2095831229) Triscuspid Valve 17.4 mmHg Regurgitation Peak Gradient (test code = 8617932347) LVOT stroke volume (test 56.40 cm3 code = 8466219944) LVOT peak clarita (test code 86.7 cm/s = 3991435024) LVOT mn grad (test code 1.4 mmHg = 5620687478) AV LVOT peak gradient 3.0 mmHg (test code = 5353635478) LVOT peak VTI (test code 18.5 cm = 6357428530) LV V1 mean (test code = 55.40 cm/s 3875264899) LA Volume Index (BP) 13.4 mL/m2 (test code = 0487895096) LA volume (BP) (test 23.9 mL code = 4108884732) LAV(MOD-sp2) (test code 20.80 mL = 0074931190) LVIDD (test code = 4.40 cm 7485132440) Left Ventricular End 87.4 mL Diastolic Volume by Teichholz Method (test code = 3026368) IVS (test code = 0.84 cm 2574589881) Interventricular Septum 0.84 cm Diastolic Thickness by 2D (test code = 6429782) LVPWD (test code = 0.75 cm 9361846866) PW (test code = 0.75 cm 0.6-1.7 7584867550) EF(Teich) (test code = 47.80 % 8280905769) LVIDS (test code = 3.30 cm 5465799188) Left Ventricular End 45.6 mL Systolic Volume by Teichholz Method (test code = 0370249) FS (test code = 24 % 9861512405) EF - 2D (test code = 47.80 % 17422717) GLS (test code = -15 % 6934267905) A4C EF (test code = 52.60 % 9189822980) EF(sp4-el) (test code = 53.60 % 0254340726) SV(MOD-sp4) (test code = 56.40 mL 4936701947) SV(sp4-el) (test code = 59.90 mL 4972936285) LV Diastolic Volume (BP) 106.7 mL (test code = 7390411478) A2C EF (test code = 57.20 % 3036032103) EF(MOD-bp) (test code = 53.70 % 1659709008) EF(sp2-el) (test code = 59.80 % 6993758539) LV Systolic Volume (BP) 49.4 mL (test code = 2525562514) SV(MOD-bp) (test code = 57.20 mL 4565308504) SV(MOD-sp2) (test code = 59.40 mL 8250301807) EF (test code = 54 2646632282) Left Ventricular Stroke 57.2 mL Volume by 2-D Biplane-MOD (test code = 4953599) LV Diastolic Volume 59.6 mL/m2 Index (BP) (test code = 4038160993) LV Systolic Volume Index 27.6 mL/m2 (BP) (test code = 2206387745) Radiology Study observation (narrative) (test code = 07733-3) SILVINA (test code = SILVINA) ?Left?Ventricle: Left ventricle size is normal. Normal wall thickness. Normal wall motion. Low normal systolic function with a visually estimated EF of 50 - 55%. Global longitudinal strain is reduced with a value of -15 %. Normal diastolic function. ?Tricuspid?Valve: Insufficient tricuspid regurgitation jet to estimate RVSP.Trace transvalvular regurgitation. Left VentricleLeft ventricle size is normal. Normal wall thickness. Normal wall motion. Low normal systolic function with a visually estimated EF of 50 - 55%. Global longitudinal strain is reduced with a value of -15 %. Normal diastolic function.Right VentricleRight ventricle size is normal. Normal systolic function.Left AtriumLeft atrium size is normal.Right AtriumRight atrium size is normal.IVC/SVCIVC was not well visualized.Mitral ValveMitral valve structure is normal. Trace transvalvular regurgitation.Tricusp id ValveTricuspid valve structure is normal. Insufficient tricuspid regurgitation jet to estimate RVSP.Trace transvalvular regurgitation.Aortic ValveAortic valve structure is normal.Pulmonic ValveNot well visualized.Ascending AortaNormal sized sinus of Valsalva.PericardiumT he pericardium is normal. No pericardial effusion.Study DetailsStudy quality was good. A complete echocardiogram was performed using 2D, color flow Doppler, spectral Doppler and strain. 3 mL of Optison ultrasound enhancing agent used. [facility] METABOLIC PANEL (NA, K, CL, CO2, GLUCOSE, BUN, CREATININE, CA)2022-08-19 11:22:15 Test Item Value Reference Range Interpretation Comments NA (test code = 138 mmol/L 135-145 5938849912) K (test code = 3.8 mmol/L 3.5-5.0 8726110300) CL (test code = 107 mmol/L 98-108 0015770593) CO2 TOTAL (test code 24 mmol/L 23-31 = 7491008278) AGAP (test code = 7 2-16 3753761391) BUN (test code = 16 mg/dL 7-23 0883368335) GLUCOSE (test code = 108 mg/dL 70-110 9423574974) CREATININE (test code 0.51 mg/dL 0.50-1.04 = 8126057851) CALCIUM (test code = 8.6 mg/dL 8.6-10.6 3590962585) eGFR (test code = 125.7 mL/min/1.73m2 0041465219) SILVINA (test code = SILVINA) Association of [...] or urine or abnormalities in imaging tests). [facility]icsPROTHROMBIN [facility] / [id number] 11:11:34 Test Item Value Reference Range Interpretation Comments PROTIME PATIENT (test 12.5 See_Comment [Auto mated message] code = 5964-2) The system [employer] generated this result transmitted ref erence range: 10.1 - 1 2.6 Seconds. The re ference range was not u sed to interpret this result as normal/abnor mal. INR (test code = 6301-6) 1.1 Nor mal INR <1.1; Warfarin Therap eutic range 2.0 to 3. 0 or 2.5 to 3.5, dep ending upon the indica tions. Lab Interpretation (test Normal code = 58907-8) [facility]icsPROTHROMBIN TIME / [id number] 11:11:34 Test Item Value Reference Range Interpretation Comments PROTIME PATIENT (test 12.5 See_Comment [Auto mated message] code = 5964-2) The system [employer] generated this result transmitted ref erence range: 10.1 - 1 2.6 Seconds. The re ference range was not u sed to interpret this result as normal/abnor mal. INR (test code = 6301-6) 1.1 Nor mal INR <1.1; Warfarin Therap eutic range 2.0 to 3. 0 or 2.5 to 3.5, dep ending upon the indica tions. Lab Interpretation (test Normal code = 66630-7) [facility] WITH [id number] 11:10:54 Test Item Value Reference Range Interpretation Comments WBC (test code = 5.07 See_Comment [Automated 6690-2) message] The sy stem which generated this result transmitted reference range : 4.30 - 11.10 10*3/?L. The reference range was not used to interpret this result as normal/abnormal . RBC (test code = 4.17 See_Comment [Automated 789-8) message] The sy stem which generated this result transmitted reference range : 3.93 - 5.25 10*6/?L. The reference range was not used to interpret this result as normal/abnormal . HGB (test code = 11.3 g/dL 11.6-15.0 L 718-7) HCT (test code = 34.3 % 35.7-45.2 L 4544-3) MCV (test code = 82.3 fL 80.6-95.5 787-2) MCH (test code = 27.1 pg 25.9-32.8 785-6) MCHC (test code = 32.9 g/dL 31.6-35.1 786-4) RDW-SD (test code = 43.4 fL 39.0-49.9 66132-0) RDW-CV (test code = 14.5 % 12.0-15.5 788-0) PLT (test code = 151 See_Comment L [Automated 777-3) message] The sy stem which generated this result transmitted reference range : 166 - 358 10*3/ ?L. The reference r quynh was not used to interpret this result as normal/abnormal . MPV (test code = 11.9 fL 9.5-12.9 66303-1) NRBC/100 WBC (test 0.0 See_Comment [Automat ed code = 0806462210) message] The system which generated this result transmitted reference range : 0.0 - 10.0 /100 WBCs. The refer ence range was not u sed to interpret th is result as normal/abnormal . NRBC x10^3 (test code See_Comment [Auto mated = 2464605524) message] The s ystem which generated this result transmitted reference range : 10*3/?L. The reference range was not used to interpret this result as normal/abnormal . GRAN MAT (NEUT) % 58.5 % (test code = 770-8) IMM GRAN % (test code 0.20 % = 2653064219) LYMPH % (test code = 36.7 % 736-9) MONO % (test code = 1.2 % 5905-5) EOS % (test code = 3.0 % 713-8) BASO % (test code = 0.4 % 706-2) GRAN MAT x10^3(ANC) 2.97 10*3/uL 1.88-7.09 (test code = 7810093511) IMM GRAN x10^3 (test 0.00-0.06 code = 8516351238) LYMPH x10^3 (test code 1.86 10*3/uL 1.32-3.29 = 731-0) MONO x10^3 (test code 0.06 10*3/uL 0.33-0.92 L = 742-7) EOS x10^3 (test code = 0.15 10*3/uL 0.03-0.39 711-2) BASO x10^3 (test code 0.01-0.07 = 704-7) Lab Interpretation Abnormal (test code = 82204-5) [facility]icsGLYCOSYLATED HEMOGLOBIN (A1C)2022-08-18 19:27:31 Test Item Value Reference Range Interpretation Comments HGB A1C (test code = 5.8 % 4.0-5.7 H 4548-4) SILVINA (test code = SILVINA) Reference RangesNormal: <5.7%Prediabetes: 5.7 - 6.4%Diabetes: > 6.5% Lab Interpretation (test Abnormal code = 42470-2) [facility]icsGLYCOSYLATED HEMOGLOBIN (A1C)2022-08-18 19:27:31 Test Item Value Reference Range Interpretation Comments HGB A1C (test code = 5.8 % 4.0-5.7 H 4548-4) SILVINA (test code = SILVINA) Reference RangesNormal: <5.7%Prediabetes: 5.7 - 6.4%Diabetes: > 6.5% Lab Interpretation (test Abnormal code = 69493-8) [facility] METABOLIC PANEL (NA, K, CL, CO2, GLUCOSE, BUN, CREATININE, CA)2022-08-18 10:52:29 Test Item Value Reference Range Interpretation Comments NA (test code = 140 mmol/L 135-145 9714776229) K (test code = 4.0 mmol/L 3.5-5.0 Slight 2696445479) hemolysis CL (test code = 111 mmol/L 98-108 H 3516311622) CO2 TOTAL (test code 20 mmol/L 23-31 L = 6520369758) AGAP (test code = 9 2-16 1109157319) BUN (test code = 17 mg/dL 7-23 Slight 5121896617) hemolysis GLUCOSE (test code = 105 mg/dL 70-110 8998600554) CREATININE (test code 0.48 mg/dL 0.50-1.04 L = 2628741636) CALCIUM (test code = 8.6 mg/dL 8.6-10.6 5661619047) eGFR (test code = 134.8 mL/min/1.73m2 3928637255) SILVINA (test code = SILVINA) Association of Glomerular Filtration Rate (GFR) and Staging of Kidney Disease* + -----+ --------+ +| GFR (mL/min/1.73 m2) ?| With Kidney Damage ?| ?Without Kidney Damage+ +------- +---- --+| ?>90 ?| ?Stage one ?| ? Normal ?+ ------+ ---------+--------- +| ?60-89 ?| ?Stage two ?| ? Decreased GFR ? + -----+ --------+ +| ?30-59 ?| ?Stage three ?| ? Stage three ? + -----+ --------+ +| ?15-29 ?| ?Stage four ? | ? Stage four ?+ ------+ ---------+--------- +| ?<15 (or dialysis) ? ?| ?Stage five ? | ? Stage five ?+ ------+ ---------+--------- + *Each stage assumes the associated GFR level [...] or urine or abnormalities in imaging tests). Lab Interpretation Abnormal (test code = 50846-8) [facility]icsMAGNESIUM2023-02-19 10:52:29 Test Item Value Reference Range Interpretation Comments MAGNESIUM (test code = 9501495252) 2.1 mg/dL 1.7-2.4 Lab Interpretation (test code = Normal 36080-2) [facility]icsCB WITH [id number] 10:42:51 Test Item Value Reference Range Interpretation Comments WBC (test code = 5.34 See_Comment [Automated 6690-2) message] The sy stem which generated this result transmitted reference range : 4.30 - 11.10 10*3/?L. The reference range was not used to interpret this result as normal/abnormal . RBC (test code = 4.24 See_Comment [Automated 449-8) message] The sy stem which generated this result transmitted reference range : 3.93 - 5.25 10*6/?L. The reference range was not used to interpret this result as normal/abnormal . HGB (test code = 11.5 g/dL 11.6-15.0 L 718-7) HCT (test code = 34.6 % 35.7-45.2 L 4544-3) MCV (test code = 81.6 fL 80.6-95.5 787-2) MCH (test code = 27.1 pg 25.9-32.8 785-6) MCHC (test code = 33.2 g/dL 31.6-35.1 786-4) RDW-SD (test code = 44.3 fL 39.0-49.9 43357-8) RDW-CV (test code = 14.7 % 12.0-15.5 788-0) PLT (test code = 142 See_Comment L [Automated 777-3) message] The sy stem which generated this result transmitted reference range : 166 - 358 10*3/ ?L. The reference r quynh was not used to interpret this result as normal/abnormal . MPV (test code = 11.6 fL 9.5-12.9 22376-4) NRBC/100 WBC (test 0.0 See_Comment [Automat ed code = 9582535506) message] The system which generated this result transmitted reference range : 0.0 - 10.0 /100 WBCs. The refer ence range was not u sed to interpret th is result as normal/abnormal . NRBC x10^3 (test code See_Comment [Auto mated = 1903852354) message] The s ystem which generated this result transmitted reference range : 10*3/?L. The reference range was not used to interpret this result as normal/abnormal . GRAN MAT (NEUT) % 61.6 % (test code = 770-8) IMM GRAN % (test code 0.40 % = 9651561312) LYMPH % (test code = 33.5 % 736-9) MONO % (test code = 1.3 % 5905-5) EOS % (test code = 3.0 % 713-8) BASO % (test code = 0.2 % 706-2) GRAN MAT x10^3(ANC) 3.29 10*3/uL 1.88-7.09 (test code = 3027039970) IMM GRAN x10^3 (test 0.00-0.06 code = 3118362663) LYMPH x10^3 (test code 1.79 10*3/uL 1.32-3.29 = 731-0) MONO x10^3 (test code 0.07 10*3/uL 0.33-0.92 L = 742-7) EOS x10^3 (test code = 0.16 10*3/uL 0.03-0.39 711-2) BASO x10^3 (test code 0.01-0.07 = 704-7) Lab Interpretation Abnormal (test code = 41717-6) [facility]icsVITAMIN B12, [id number] 21:26:37 Test Item Value Reference Range Interpretation Comments VIT B12 (test code = 527 pg/mL 240-930 5310539356) SILVINA (test code = SILVINA) Biotin has been reported to cause a positive bias, interpret results relative to patient's use of biotin. Lab Interpretation (test Normal code = 91579-6) [facility]icsF[facility]ATE2023-[facility]-18 21:26:37 Test Item Value Reference Range Interpretation Comments FOLATE SER (test code = 0460395331) 9.7 ng/mL 3.0-20.0 Lab Interpretation (test code = Normal 54765-6) [facility]icsV[facility]IN B12, [id number] 21:26:37 Test Item Value Reference Range Interpretation Comments VIT B12 (test code = 527 pg/mL 240-930 2980397973) SILVINA (test code = SILVINA) Biotin has been reported to cause a positive bias, interpret results relative to patient's use of biotin. Lab Interpretation (test Normal code = 90628-5) [facility]ics[facility]2023-[facility]-18 21:26:37 Test Item Value Reference Range Interpretation Comments FOLATE SER (test code = 3561049411) 9.7 ng/mL 3.0-20.0 Lab Interpretation (test code = Normal 97078-4) [facility] ClinicsProthrombin Time / [id number] 10:08:12 Test Item Value Reference Range Interpretation Comments PROTIME PATIENT (test 12.6 See_Comment [Auto mated message] code = 5964-2) The system [employer] generated this result transmitted ref erence range: 10.1 - 1 2.6 Seconds. The re ference range was not u sed to interpret this result as normal/abnor mal. INR (test code = 6301-6) 1.1 Nor mal INR <1.1; Warfarin Therap eutic range 2.0 to 3. 0 or 2.5 to 3.5, dep ending upon the indica tions. Lab Interpretation (test Normal code = 57231-6) [facility]icsaPTT20[facility]-18 10:08:12 Test Item Value Reference Range Interpretation Comments APTT Patient (test code = 32 See_Comment [ Automated message] 3173-2) The system [employer] generated this result transmitted ref erence range: 26 - 36 Seconds. The re ference range was not u sed to interpret this result as normal/abnor mal. Lab Interpretation (test Normal code = 98164-8) [facility]icsaPTT[facility]18 10:08:12 Test Item Value Reference Range Interpretation Comments APTT Patient (test code = 32 See_Comment [ Automated message] 3173-2) The system [employer] generated this result transmitted ref erence range: 26 - 36 Seconds. The re ference range was not u sed to interpret this result as normal/abnor mal. Lab Interpretation (test Normal code = 84079-5) [facility]icsCB WITHOUT [id number] 09:55:37 Test Item Value Reference Range Interpretation Comments WBC (test code = 8.08 See_Comment [Automated message] 8790-2) The system [employer] generated this result transmitted ref erence range: 4.30 - 1 1.10 10*3/?L. The reference range was not used to int erpret this result as normal/abnormal . RBC (test code = 789-8) 4.29 See_Comment [Au tomated message] The system [employer] generated this result transmitted ref erence range: 3.93 - 5 .25 10*6/?L. The reference range was not used to int erpret this result as normal/abnormal . HGB (test code = 718-7) 11.8 g/dL 11.6-15.0 HCT (test code = 35.2 % 35.7-45.2 L 4544-3) MCH (test code = 785-6) 27.5 pg 25.9-32.8 MCV (test code = 787-2) 82.1 fL 80.6-95.5 MCHC (test code = 33.5 g/dL 31.6-35.1 786-4) PLT (test code = 777-3) 130 See_Comment L [Au tomated message] The system [employer] generated this result transmitted ref erence range: 166 - 35 8 10*3/?L. The reference range was not used to int erpret this result as normal/abnormal . MPV (test code = 11.8 fL 9.5-12.9 19653-5) RDW-CV (test code = 14.8 % 12.0-15.5 788-0) RDW-SD (test code = 44.6 fL 39.0-49.9 45678-0) NRBC x10^3 (test code = See_Comment [Au tomated message] 9108453051) The system [employer] generated this result transmitted ref erence range: 10*3/?L. The reference range was not used to int erpret this result as normal/abnormal . NRBC/100 WBC (test code 0.0 See_Comment [Au tomated message] = 3911044668) The system [employer] generated this result transmitted ref erence range: 0.0 - 10 .0 /100 WBCs. The reference range was not used to int erpret this result as normal/abnormal . IPF % (test code = 10.2 % 1.3-7.7 H Platelet count 0108513758) measured by fluorescence me thod. Lab Interpretation Abnormal (test code = 93149-8) [facility] WITHOUT [id number] 09:55:37 Test Item Value Reference Range Interpretation Comments WBC (test code = 8.08 See_Comment [Automated message] 6690-2) The system [employer] generated this result transmitted ref erence range: 4.30 - 1 1.10 10*3/?L. The reference range was not used to int erpret this result as normal/abnormal . RBC (test code = 789-8) 4.29 See_Comment [Au tomated message] The system [employer] generated this result transmitted ref erence range: 3.93 - 5 .25 10*6/?L. The reference range was not used to int erpret this result as normal/abnormal . HGB (test code = 718-7) 11.8 g/dL 11.6-15.0 HCT (test code = 35.2 % 35.7-45.2 L 4544-3) MCH (test code = 785-6) 27.5 pg 25.9-32.8 MCV (test code = 787-2) 82.1 fL 80.6-95.5 MCHC (test code = 33.5 g/dL 31.6-35.1 786-4) PLT (test code = 777-3) 130 See_Comment L [Au tomated message] The system [employer] generated this result transmitted ref erence range: 166 - 35 8 10*3/?L. The reference range was not used to int erpret this result as normal/abnormal . MPV (test code = 11.8 fL 9.5-12.9 97096-1) RDW-CV (test code = 14.8 % 12.0-15.5 788-0) RDW-SD (test code = 44.6 fL 39.0-49.9 77794-3) NRBC x10^3 (test code = See_Comment [Au tomated message] 2849174507) The system [facility] h generated this result transmitted ref erence range: 10*3/?L. The reference range was not used to int erpret this result as normal/abnormal . NRBC/100 WBC (test code 0.0 See_Comment [Au tomated message] = 3259474890) The system [facility] generated this result transmitted ref erence range: 0.0 - 10 .0 /100 WBCs. The reference range was not used to int erpret this result as normal/abnormal . IPF % (test code = 10.2 % 1.3-7.7 H Platelet count 9316593651) measured by fluorescence me thod. Lab Interpretation Abnormal (test code = 77315-0) [facility] METABOLIC PANEL (NA, K, CL, CO2, GLUCOSE, BUN, CREATININE, CA)2022-08-17 09:51:50 Test Item Value Reference Range Interpretation Comments NA (test code = 141 mmol/L 135-145 9519209439) K (test code = 3.3 mmol/L 3.5-5.0 L 2835627615) CL (test code = 111 mmol/L 98-108 H 5838421907) CO2 TOTAL (test code = 24 mmol/L 23-31 6335598347) AGAP (test code = 6 2-16 5284003378) BUN (test code = 20 mg/dL 7-23 9737102531) GLUCOSE (test code = 99 mg/dL 70-110 6132581913) CREATININE (test code = 0.56 mg/dL 0.50-1.04 2654255793) CALCIUM (test code = 8.9 mg/dL 8.6-10.6 2298198276) eGFR (test code = 112.8 mL/min/1.73m2 0877776256) SILVINA (test code = SILVINA) Association of Glomerular Filtration Rate (GFR) and Staging of Kidney Disease* + --+ --+ ------+| GFR (mL/min/1.73 m2) ?| With Kidney Damage ?| ?Without Kidney Damage+ --------+ --------+ +| ?>90 ?| ?Stage one ?| ? Normal ?+ ---+ ---+ -------+| ?60-89 ?| ?Stage two ?| ? Decreased GFR ? + --+ --+ ------+| ?30-59 ?| ?Stage three ?| ? Stage three ? + --+ --+ ------+| ?15-29 ?| ?Stage four ? | ? Stage four ?+ ---+ ---+ -------+| ?<15 (or dialysis) ? ?| ?Stage five ? | ? Stage five ?+ ---+ ---+ -------+ *Each stage assumes the associated GFR level [...] or urine or abnormalities in imaging tests). Lab Interpretation Abnormal (test code = 34799-1) [facility]20[facility]-18 09:51:50 Test Item Value Reference Range Interpretation Comments MAGNESIUM (test code = 0506233454) 2.1 mg/dL 1.7-2.4 Lab Interpretation (test code = Normal 67837-1) [facility]icsLACTATE [id number] 09:50:29 Test Item Value Reference Range Interpretation Comments LDH (test code = 8084458618) 154 U/L 120-246 Lab Interpretation (test code = Normal 88164-4) [facility]icsLACTATE [id number] 09:50:29 Test Item Value Reference Range Interpretation Comments LDH (test code = 1753936224) 154 U/L 120-246 Lab Interpretation (test code = Normal 98299-7) [facility] [id number] 17:36:19 Test Item Value Reference Interpretation Comments Range TROPONIN I (test 0.002 ng/mL See_Comment [Automated code = 8338048012) message] The system which generated this result transmitted reference range : <=0.034. The reference range was not used to interpret this result as normal/abnormal . SILVINA (test code = Reference (Normal) SILVINA) Range (defined by the 99th percentile reference [...] biotin. Lab Interpretation Normal (test code = 36494-0) [facility][id number] 17:36:19 Test Item Value Reference Range Interpretation Comments NT-proBNP (test code 76 pg/mL See_Comment [Autom ated = 7659358772) message] The system which generated this result transmitted reference range : <=125. The reference range was not used to interpret this result as normal/abnormal . SILVINA (test code = SILVINA) Biotin has been reported to cause a negative bias, interpret results relative to patient's use of biotin. Lab Interpretation Normal (test code = 26708-3) [facility] [id number] 17:36:19 Test Item Value Reference Range Interpretation Comments TROPONIN I (test code = 0.002 ng/mL <=0.034 [id number]) SILVINA (test code = SILVINA) Reference (Normal) [...] biotin. Lab Interpretation Normal (test code = 08105-9) [facility] S[facility]-[id number] 17:36:19 Test Item Value Reference Range Interpretation Comments NT-proBNP (test code = 76 pg/mL <=125 [id number]) SILVINA (test code = SILVINA) Biotin has been reported to cause a negative bias, interpret results relative to patient's use of biotin. Lab Interpretation (test Normal code = 53413-1) [facility]icsACTIV[facility] PARTIAL THRMPLAS [id number] 17:32:19 Test Item Value Reference Range Interpretation Comments APTT Patient (test code See_Comment H [Au tomated message] = 3173-2) The system [employer] generated this result transmitted ref erence range: 26 - 36 Seconds. The reference range was not used to int erpret this result as normal/abnormal . Lab Interpretation (test Abnormal code = 03957-5) [facility]icsPROTHROMBIN TIME / [id number] 17:32:19 Test Item Value Reference Range Interpretation Comments PROTIME PATIENT (test See_Comment H [Auto mated message] code = 5964-2) The system [employer] generated this result transmitted ref erence range: 10.1 - 1 2.6 Seconds. The reference range was not used to int erpret this result as normal/abnormal . INR (test code = 6301-6) Nor mal INR <1.1; Warfarin Therap eutic range 2.0 to 3. 0 or 2.5 to 3.5, dep ending upon the indica tions. Lab Interpretation (test Abnormal code = 81871-8) [facility]icsCOMP. METABOLIC PANEL (48090)2022-06-04 17:24:59 Test Item Value Reference Range Interpretation Comments NA (test code = 140 mmol/L 135-145 7574989443) K (test code = 4.1 mmol/L 3.5-5.0 4830084419) CL (test code = 104 mmol/L 98-108 5868459199) CO2 TOTAL (test code 29 mmol/L 23-31 = 4962806184) AGAP (test code = 2-16 3118837510) BUN (test code = 10 mg/dL 7-23 0719281136) GLUCOSE (test code = 103 mg/dL 70-110 4702611343) CREATININE (test code 0.64 mg/dL 0.50-1.04 = 1710685465) TOTAL BILI (test code 0.4 mg/dL 0.1-1.1 = 6090464640) CALCIUM (test code = 9.3 mg/dL 8.6-10.6 6201736834) T PROTEIN (test code 7.1 g/dL 6.3-8.2 = 8491478089) ALBUMIN (test code = 4.2 g/dL 3.5-5.0 9934826560) ALK PHOS (test code = 99 U/L 34-122 3373993111) ALTv (test code = 30 U/L 5-35 2-6) AST(SGOT) (test code 24 U/L 13-40 = 9277442340) eGFR (test code = mL/min/1.73m2 5936025206) SILVINA (test code = SILVINA) Association of [...] or urine or abnormalities in imaging tests). [facility] WITH [id number] 17:20:38 Test Item Value Reference Range Interpretation Comments WBC (test code = See_Comment [Automated 6690-2) message] The sy stem which generated this result transmitted reference range : 4.30 - 11.10 10*3/?L. The reference range was not used to interpret this result as normal/abnormal . RBC (test code = See_Comment [Automated 789-8) message] The sy stem which generated this [...] (test code = 52.7 fL 39.0-49.9 H 71287-3) RDW-CV (test code = 17.2 % 12.0-15.5 H 788-0) PLT (test code = See_Comment [Automated 777-3) message] The sy stem which generated this result transmitted reference range : 166 - 358 10*3/ ?L. The reference r quynh was not used to interpret this result as normal/abnormal . MPV (test code = 10.5 fL 9.5-12.9 03982-3) NRBC/100 WBC (test See_Comment [Automat ed code = 7435706674) message] The system which generated this result transmitted reference range : 0.0 - 10.0 /100 WBCs. The refer ence range was not u sed to interpret th is result as normal/abnormal . NRBC x10^3 (test code See_Comment [Auto mated = 5746347582) message] The s ystem which generated this result transmitted reference range : 10*3/?L. The reference range was not used to interpret this result as normal/abnormal . GRAN MAT (NEUT) % 57.1 % (test code = 770-8) IMM GRAN % (test code 0.50 % = 9961864935) LYMPH % (test code = 28.4 % 736-9) MONO % (test code = 6.2 % 5905-5) EOS % (test code = 6.8 % 713-8) BASO % (test code = 1.0 % 706-2) GRAN MAT x10^3(ANC) 4.73 10*3/uL 1.88-7.09 (test code = 7389982781) IMM GRAN x10^3 (test 0.04 10*3/uL 0.00-0.06 code = 4084516609) LYMPH x10^3 (test code 2.35 10*3/uL 1.32-3.29 = 731-0) MONO x10^3 (test code 0.51 10*3/uL 0.33-0.92 = 742-7) EOS x10^3 (test code = 0.56 10*3/uL 0.03-0.39 H 711-2) BASO x10^3 (test code 0.08 10*3/uL 0.01-0.07 H = 704-7) Lab Interpretation Abnormal (test code = 39142-0) [facility]icsCHEMISTRY2022-[facility] 11:43:00 Test Item Value Reference Range Interpretation Comments Glucose Lvl (test code = Glucose Lvl) 93 70-99 [facility] CenterVjndunrGMASURMEP4895-15-78 11:43:00 Test Item Value Reference Range Interpretation Comments BUN (test code = BUN) 13 7-22 [facility] CenterMfccijxCZIGGUQPG0483-44-25 11:43:00 Test Item Value Reference Range Interpretation Comments Creatinine Lvl (test code = Creatinine 0.62 0.50-1.40 Lvl) [facility] CenterMzggydzSFSSWGEVO6567-55-60 11:43:00 Test Item Value Reference Range Interpretation Comments Sodium Lvl (test code = Sodium Lvl) 142 135-145 [facility] CenterMajtbrwIEWBQNXXN9880-06-56 11:43:00 Test Item Value Reference Range Interpretation Comments Potassium Lvl (test code = Potassium 3.5 3.5-5.1 Lvl) [facility] CenterGkmklokPGHFFYMOI0580-77-95 11:43:00 Test Item Value Reference Range Interpretation Comments Chloride Lvl (test code = Chloride Lvl) 109 95-109 [facility] CenterSgkosjrJYCETCCZP5275-55-80 11:43:00 Test Item Value Reference Range Interpretation Comments CO2 (test code = CO2) 26 24-32 [facility] CenterXvwqheoPZDWOYQOJ4213-13-86 11:43:00 Test Item Value Reference Range Interpretation Comments Calcium Lvl (test code = Calcium Lvl) 8.9 8.5-10.5 [facility]MhaxskjQFFDRFUVQ9895-17-65 11:43:00 Test Item Value Reference Range Interpretation Comments Total Protein (test code = Total 6.5 6.4-8.4 Protein) [facility] CenterVuocykiJLXSPMZBM7521-28-19 11:43:00 Test Item Value Reference Range Interpretation Comments Albumin Lvl (test code = Albumin Lvl) 2.6 3.5-5.0 [facility] CenterBklywtfLAXPGRQNQ1434-33-47 11:43:00 Test Item Value Reference Range Interpretation Comments ALT (test code = ALT) 16 See_Comment [Auto mated message] The system which ge nerated this result transmit fabiano reference range : <=65. The reference range was not used to interpr et this result as aleks l/abnormal. [facility] CenterOoorsyfGGDEOXXJL5683-55-97 11:43:00 Test Item Value Reference Range Interpretation Comments AST (test code = AST) 8 See_Comment [Auto mated message] The system which ge nerated this result transmit fabiano reference range : <=37. The reference range was not used to interpr et this result as alkes l/abnormal. [facility] CenterVqqqnloMHJEKEGGL7067-71-64 11:43:00 Test Item Value Reference Range Interpretation Comments Alk Phos (test code = Alk Phos) 93 39-136 [facility] CenterCuerxzaRGJNOIHOA8065-23-00 11:43:00 Test Item Value Reference Range Interpretation Comments Bili Total (test code = Bili Total) 0.3 0.2-1.3 [facility] CenterBnjmecbPBXYOBWAW4205-94-03 11:43:00 Test Item Value Reference Range Interpretation Comments AGAP (test code = AGAP) 10.5 10.0-20.0 [facility] CenterJcupetiAUJVFQANU1752-37-78 11:43:00 Test Item Value Reference Range Interpretation Comments B/C Ratio (test code = B/C Ratio) 21 1 6-25 [facility] CenterExzqfjdOWKSTCWYD5873-02-91 11:43:00 Test Item Value Reference Range Interpretation Comments Globulin (test code = Globulin) 3.9 2.7-4.2 [facility] CenterCczphztFXLEAFJTN2974-79-54 11:43:00 Test Item Value Reference Range Interpretation Comments A/G Ratio (test code = A/G Ratio) 0.7 1 0.7-1.6 [facility] CenterUhtiyvaPPLTXLBRX4083-59-50 11:43:00 Test Item Value Reference Range Interpretation Comments eGFR (test code = eGFR) 107 [facility]XwrdnohXQZPTIHHUW8482-98-77 11:43:00 Test Item Value Reference Range Interpretation Comments Segs (test code = Segs) 75.4 45.0-75.0 [facility] DistrictCloyevzINSBFQWHXR5231-19-96 11:43:00 Test Item Value Reference Range Interpretation Comments Lymphocytes (test code = Lymphocytes) 17.6 20.0-40.0 [facility] DistrictJxcbyidEPHEEHITWD1229-05-76 11:43:00 Test Item Value Reference Range Interpretation Comments Monocytes (test code = Monocytes) 5.9 2.0-12.0 [facility] DistrictJeftmagVMGGRSYRRH7854-88-52 11:43:00 Test Item Value Reference Range Interpretation Comments Eosinophils (test code = 0.5 See_Comment [A utomated message] The Eosinophils) system which ge nerated this result tra nsmitted reference range : <=4.0. The reference r quynh was not used to int erpret this result as normal/abnormal . [facility] DistrictXjbmpcxVVVSOTUVTP5024-63-72 11:43:00 Test Item Value Reference Range Interpretation Comments Basophils (test code = 0.6 See_Comment [Aut omated message] The Basophils) system which ge nerated this result tra nsmitted reference range : <=1.0. The reference r quynh was not used to int erpret this result as normal/abnormal . [facility] DistrictDjquvmcFZFIJKTTWA1987-04-83 11:43:00 Test Item Value Reference Range Interpretation Comments Neutrophils # (test code = Neutrophils 8.1 1.5-8.1 #) [place] 495052-10-26 11:43:00 Test Item Value Reference Range Interpretation Comments Lymphocytes # (test code = Lymphocytes 1.9 1.0-5.5 #) [facility] DistrictGpixxqhAJOEVCXFHO9942-40-85 11:43:00 Test Item Value Reference Range Interpretation Comments Monocytes # (test code 0.6 See_Comment [Aut omated message] The = Monocytes #) system which generated this result tra nsmitted reference range : <=0.8. The reference r quynh was not used to int erpret this result as normal/abnormal . [place] [address]-10-26 11:43:00 Test Item Value Reference Range Interpretation Comments Basophils # (test code 0.1 See_Comment [Aut omated message] The = Basophils #) system which generated this result tra nsmitted reference range : <=0.2. The reference r quynh was not used to int erpret this result as normal/abnormal . [place] 495052-10-26 11:43:00 Test Item Value Reference Range Interpretation Comments Microcyte (test code = 1+ *ABN*(04/24/22 Microcyte) 6:43 AM) [place] [address]-10-26 11:43:00 Test Item Value Reference Range Interpretation Comments WBC (test code = WBC) 10.8 3.7-10.4 [place] [address]-10-26 11:43:00 Test Item Value Reference Range Interpretation Comments RBC (test code = RBC) 3.62 4.20-5.40 [place] 495052-10-26 11:43:00 Test Item Value Reference Range Interpretation Comments Hgb (test code = Hgb) 9.7 12.0-16.0 [place] [address]-10-26 11:43:00 Test Item Value Reference Range Interpretation Comments Hct (test code = Hct) 28.6 36.0-48.0 [place] [address]-10-26 11:43:00 Test Item Value Reference Range Interpretation Comments MCV (test code = MCV) 78.9 80.0-98.0 [place] 495052-10-26 11:43:00 Test Item Value Reference Range Interpretation Comments MCH (test code = MCH) 26.9 pg 27.0-31.0 [place] 495052-10-26 11:43:00 Test Item Value Reference Range Interpretation Comments MCHC (test code = MCHC) 34.1 32.0-36.0 [facility] DistrictXmigyjmANBMPGJJKG8101-12-78 11:43:00 Test Item Value Reference Range Interpretation Comments RDW (test code = RDW) 16.3 11.5-14.5 [facility] DistrictMxtrzgwDKLDLXDHMF2891-88-84 11:43:00 Test Item Value Reference Range Interpretation Comments Platelet (test code = Platelet) 242 133-450 [facility] DistrictMifpbahQOVFBHRGWY0804-79-91 11:43:00 Test Item Value Reference Range Interpretation Comments MPV (test code = MPV) 8.7 7.4-10.4 [facility] CenterKnadhbaITLTIKDZG1384-01-35 11:43:00 Test Item Value Reference Range Interpretation Comments Glucose Lvl (test code = Glucose Lvl) 93 70-99 [facility] CenterGgfhsvuEHZICDOQG1466-04-88 11:43:00 Test Item Value Reference Range Interpretation Comments BUN (test code = BUN) 13 7-22 [facility] CenterAqpnmgtVOURGGTGV3285-33-18 11:43:00 Test Item Value Reference Range Interpretation Comments Creatinine Lvl (test code = Creatinine 0.62 0.50-1.40 Lvl) [facility] CenterWbeljkzUCUTHRLDZ1107-55-39 11:43:00 Test Item Value Reference Range Interpretation Comments Sodium Lvl (test code = Sodium Lvl) 142 135-145 [facility] CenterEmjhuufETJWGQOGK2444-18-09 11:43:00 Test Item Value Reference Range Interpretation Comments Potassium Lvl (test code = Potassium 3.5 3.5-5.1 Lvl) [facility] CenterObbylxoWRSZRKOQY8073-12-90 11:43:00 Test Item Value Reference Range Interpretation Comments Chloride Lvl (test code = Chloride Lvl) 109 95-109 [facility] CenterDnnbpkhVKEGVDULV1733-11-24 11:43:00 Test Item Value Reference Range Interpretation Comments CO2 (test code = CO2) - [facility] CenterIpqcnzuVTYKWESNJ8571-54-50 11:43:00 Test Item Value Reference Range Interpretation Comments Calcium Lvl (test code = Calcium Lvl) 8.9 8.5-10.5 [facility] CenterUfdmdvjWCDPNZHSK7132-21-39 11:43:00 Test Item Value Reference Range Interpretation Comments Total Protein (test code = Total 6.5 6.4-8.4 Protein) [facility] CenterNaicuqiDDKHSREAU0867-68-45 11:43:00 Test Item Value Reference Range Interpretation Comments Albumin Lvl (test code = Albumin Lvl) 2.6 3.5-5.0 [facility]BnxxihqXRKVWJIPY2128-89-37 11:43:00 Test Item Value Reference Range Interpretation Comments ALT (test code = ALT) 16 See_Comment [Auto mated message] The system which ge nerated this result transmit fabiano reference range : <=65. The reference range was not used to interpr et this result as aleks l/abnormal. [facility] KlebergYjopqtmWKOMRRZIL1845-52-43 11:43:00 Test Item Value Reference Range Interpretation Comments AST (test code = AST) 8 See_Comment [Auto mated message] The system which ge nerated this result transmit fabiano reference range : <=37. The reference range was not used to interpr et this result as aleks l/abnormal. [facility]bergDspzmacBEQEDYBTL8590-00-24 11:43:00 Test Item Value Reference Range Interpretation Comments Alk Phos (test code = Alk Phos) 93 39-136 [facility] CenterCltttwcTOLJSCBBA5674-29-49 11:43:00 Test Item Value Reference Range Interpretation Comments Bili Total (test code = Bili Total) 0.3 0.2-1.3 [facility] CenterLdayyqbTKNBBUOWC3103-12-48 11:43:00 Test Item Value Reference Range Interpretation Comments AGAP (test code = AGAP) 10.5 10.0-20.0 [facility]bergKgmtgdgXTCUMNWXD5524-99-18 11:43:00 Test Item Value Reference Range Interpretation Comments B/C Ratio (test code = B/C Ratio) 21 1 6-25 [facility]ek[facility]ov[facility]RIXIFQQT6867[facility] 11:43:00 Test Item Value Reference Range Interpretation Comments Globulin (test code = Globulin) 3.9 2.7-4.2 [facility] CenterVktrxbqUQQHLNRSD3274-31-58 11:43:00 Test Item Value Reference Range Interpretation Comments A/G Ratio (test code = A/G Ratio) 0.7 1 0.7-1.6 [facility] KlebergLnipmcpFZTNCWOVL9563-01-51 11:43:00 Test Item Value Reference Range Interpretation Comments eGFR (test code = eGFR) 107 [facility] DistrictOqfuziaTXQQSUIGSG7633-33-00 11:43:00 Test Item Value Reference Range Interpretation Comments Segs (test code = Segs) 75.4 45.0-75.0 [place] 495052-10-26 11:43:00 Test Item Value Reference Range Interpretation Comments Lymphocytes (test code = Lymphocytes) 17.6 20.0-40.0 [place] [address]-10-26 11:43:00 Test Item Value Reference Range Interpretation Comments Monocytes (test code = Monocytes) 5.9 2.0-12.0 [place] [address]-10-26 11:43:00 Test Item Value Reference Range Interpretation Comments Eosinophils (test code = 0.5 See_Comment [A utomated message] The Eosinophils) system which ge nerated this result tra nsmitted reference range : <=4.0. The reference r quynh was not used to int erpret this result as normal/abnormal . [place] [address]-10-26 11:43:00 Test Item Value Reference Range Interpretation Comments Basophils (test code = 0.6 See_Comment [Aut omated message] The Basophils) system which ge nerated this result tra nsmitted reference range : <=1.0. The reference r quynh was not used to int erpret this result as normal/abnormal . [place] [address]-10-26 11:43:00 Test Item Value Reference Range Interpretation Comments Neutrophils # (test code = Neutrophils 8.1 1.5-8.1 #) [place] [address]-10-26 11:43:00 Test Item Value Reference Range Interpretation Comments Lymphocytes # (test code = Lymphocytes 1.9 1.0-5.5 #) [place] [address]-10-26 11:43:00 Test Item Value Reference Range Interpretation Comments Monocytes # (test code 0.6 See_Comment [Aut omated message] The = Monocytes #) system which generated this result tra nsmitted reference range : <=0.8. The reference r quynh was not used to int erpret this result as normal/abnormal . [place] 495052-10-26 11:43:00 Test Item Value Reference Range Interpretation Comments Basophils # (test code 0.1 See_Comment [Aut omated message] The = Basophils #) system which generated this result tra nsmitted reference range : <=0.2. The reference r quynh was not used to int erpret this result as normal/abnormal . [facility] DistrictBibhvzlEVISRLWSPL4594-24-71 11:43:00 Test Item Value Reference Range Interpretation Comments Microcyte (test code = 1+ *ABN*(04/24/22 Microcyte) 6:43 AM) [place] [address]-10-26 11:43:00 Test Item Value Reference Range Interpretation Comments WBC (test code = WBC) 10.8 3.7-10.4 [facility] DistrictCoattxmRQENCMTWLT0151-00-25 11:43:00 Test Item Value Reference Range Interpretation Comments RBC (test code = RBC) 3.62 4.20-5.40 [facility] DistrictEvbrcbwFYCZSTJKRD9282-73-68 11:43:00 Test Item Value Reference Range Interpretation Comments Hgb (test code = Hgb) 9.7 12.0-16.0 [place] [address]-10-26 11:43:00 Test Item Value Reference Range Interpretation Comments Hct (test code = Hct) 28.6 36.0-48.0 [facility] DistrictKyywsovILMSGKUNYU0276-33-70 11:43:00 Test Item Value Reference Range Interpretation Comments MCV (test code = MCV) 78.9 80.0-98.0 [facility] DistrictAermqexNBNCNNCPYP1149-79-88 11:43:00 Test Item Value Reference Range Interpretation Comments MCH (test code = MCH) 26.9 pg 27.0-31.0 [facility] DistrictBdczcppPIYNESCOLF3962-55-90 11:43:00 Test Item Value Reference Range Interpretation Comments MCHC (test code = MCHC) 34.1 32.0-36.0 [facility] DistrictGpuvedePJLQNHXMTW8553-84-21 11:43:00 Test Item Value Reference Range Interpretation Comments RDW (test code = RDW) 16.3 11.5-14.5 [place] 495052-10-26 11:43:00 Test Item Value Reference Range Interpretation Comments Platelet (test code = Platelet) 242 133-450 [facility] DistrictHrmifcbDTOPWEYEDS6195-06-23 11:43:00 Test Item Value Reference Range Interpretation Comments MPV (test code = MPV) 8.7 7.4-10.4 [facility] CenterWhsfqthZBPRGVGVJ8330-16-51 11:43:00 Test Item Value Reference Range Interpretation Comments Glucose Lvl (test code = Glucose Lvl) 93 70-99 [place] 774022-10-26 11:43:00 Test Item Value Reference Range Interpretation Comments BUN (test code = BUN) 13 7-22 [place] [address]-10-26 11:43:00 Test Item Value Reference Range Interpretation Comments Creatinine Lvl (test code = Creatinine 0.62 0.50-1.40 Lvl) [facility] CenterWjlymalCSLKZMQCH9157-56-73 11:43:00 Test Item Value Reference Range Interpretation Comments Sodium Lvl (test code = Sodium Lvl) 142 135-145 [place] [address]-10-26 11:43:00 Test Item Value Reference Range Interpretation Comments Potassium Lvl (test code = Potassium 3.5 3.5-5.1 Lvl) [facility] CenterDnbielcXZHZSCGQL3798-33-26 11:43:00 Test Item Value Reference Range Interpretation Comments Chloride Lvl (test code = Chloride Lvl) 109 95-109 [place] 774022-10-26 11:43:00 Test Item Value Reference Range Interpretation Comments CO2 (test code = CO2) 24-32 [place] [address]-10-26 11:43:00 Test Item Value Reference Range Interpretation Comments Calcium Lvl (test code = Calcium Lvl) 8.9 8.5-10.5 [place] [address]-10-26 11:43:00 Test Item Value Reference Range Interpretation Comments Total Protein (test code = Total 6.5 6.4-8.4 Protein) [facility] CenterYtvntghZEIJAFDXT3494-61-96 11:43:00 Test Item Value Reference Range Interpretation Comments Albumin Lvl (test code = Albumin Lvl) 2.6 3.5-5.0 [facility] CenterVwwdnyeJUBVJUKIF5956-73-46 11:43:00 Test Item Value Reference Range Interpretation Comments ALT (test code = ALT) 16 See_Comment [Auto mated message] The system which ge nerated this result transmit fabiano reference range : <=65. The reference range was not used to interpr et this result as aleks l/abnormal. [place] [address]-10-26 11:43:00 Test Item Value Reference Range Interpretation Comments AST (test code = AST) 8 See_Comment [Auto mated message] The system which ge nerated this result transmit fabiano reference range : <=37. The reference range was not used to interpr et this result as aleks l/abnormal. [facility] CenterFwbcipoKDVFBRCUT8001-61-39 11:43:00 Test Item Value Reference Range Interpretation Comments Alk Phos (test code = Alk Phos) 93 39-136 [place] 774022-10-26 11:43:00 Test Item Value Reference Range Interpretation Comments Bili Total (test code = Bili Total) 0.3 0.2-1.3 [facility] CenterRzuwgqzAVYEENCPQ9929-63-96 11:43:00 Test Item Value Reference Range Interpretation Comments AGAP (test code = AGAP) 10.5 10.0-20.0 [facility] CenterIdyffggKMGXHFNIC1052-81-50 11:43:00 Test Item Value Reference Range Interpretation Comments B/C Ratio (test code = B/C Ratio) 21 1 6-25 [place] [address]-10-26 11:43:00 Test Item Value Reference Range Interpretation Comments Globulin (test code = Globulin) 3.9 2.7-4.2 [place] 774022-10-26 11:43:00 Test Item Value Reference Range Interpretation Comments A/G Ratio (test code = A/G Ratio) 0.7 1 0.7-1.6 [place] [address]-10-26 11:43:00 Test Item Value Reference Range Interpretation Comments eGFR (test code = eGFR) 107 [facility] DistrictMceysjtPWNEFOYDPM1507-42-56 11:43:00 Test Item Value Reference Range Interpretation Comments Segs (test code = Segs) 75.4 45.0-75.0 [place] 495052-10-26 11:43:00 Test Item Value Reference Range Interpretation Comments Lymphocytes (test code = Lymphocytes) 17.6 20.0-40.0 [place] 495052-10-26 11:43:00 Test Item Value Reference Range Interpretation Comments Monocytes (test code = Monocytes) 5.9 2.0-12.0 [place] [address]-10-26 11:43:00 Test Item Value Reference Range Interpretation Comments Eosinophils (test code = 0.5 See_Comment [A utomated message] The Eosinophils) system which ge nerated this result tra nsmitted reference range : <=4.0. The reference r quynh was not used to int erpret this result as normal/abnormal . [place] 495052-10-26 11:43:00 Test Item Value Reference Range Interpretation Comments Basophils (test code = 0.6 See_Comment [Aut omated message] The Basophils) system which ge nerated this result tra nsmitted reference range : <=1.0. The reference r quynh was not used to int erpret this result as normal/abnormal . [place] 495052-10-26 11:43:00 Test Item Value Reference Range Interpretation Comments Neutrophils # (test code = Neutrophils 8.1 1.5-8.1 #) [place] 495052-10-26 11:43:00 Test Item Value Reference Range Interpretation Comments Lymphocytes # (test code = Lymphocytes 1.9 1.0-5.5 #) [place] 495052-10-26 11:43:00 Test Item Value Reference Range Interpretation Comments Monocytes # (test code 0.6 See_Comment [Aut omated message] The = Monocytes #) system which generated this result tra nsmitted reference range : <=0.8. The reference r quynh was not used to int erpret this result as normal/abnormal . [place] [address]-10-26 11:43:00 Test Item Value Reference Range Interpretation Comments Basophils # (test code 0.1 See_Comment [Aut omated message] The = Basophils #) system which generated this result tra nsmitted reference range : <=0.2. The reference r quynh was not used to int erpret this result as normal/abnormal . [place] 495052-10-26 11:43:00 Test Item Value Reference Range Interpretation Comments Microcyte (test code = 1+ *ABN*(04/24/22 Microcyte) 6:43 AM) [place] [address]-10-26 11:43:00 Test Item Value Reference Range Interpretation Comments WBC (test code = WBC) 10.8 3.7-10.4 [place] [address]-10-26 11:43:00 Test Item Value Reference Range Interpretation Comments RBC (test code = RBC) 3.62 4.20-5.40 [place] 495052-10-26 11:43:00 Test Item Value Reference Range Interpretation Comments Hgb (test code = Hgb) 9.7 12.0-16.0 [facility] DistrictDkauuvdACHZIUQKJP7302-88-97 11:43:00 Test Item Value Reference Range Interpretation Comments Hct (test code = Hct) 28.6 36.0-48.0 [place] 495052-10-26 11:43:00 Test Item Value Reference Range Interpretation Comments MCV (test code = MCV) 78.9 80.0-98.0 [place] [address]-10-26 11:43:00 Test Item Value Reference Range Interpretation Comments MCH (test code = MCH) 26.9 pg 27.0-31.0 [place] 495052-10-26 11:43:00 Test Item Value Reference Range Interpretation Comments MCHC (test code = MCHC) 34.1 32.0-36.0 [facility] DistrictAgvybwhEOUAUCYXQS7769-03-45 11:43:00 Test Item Value Reference Range Interpretation Comments RDW (test code = RDW) 16.3 11.5-14.5 [place] [address]-10-26 11:43:00 Test Item Value Reference Range Interpretation Comments Platelet (test code = Platelet) 242 133-450 [facility] DistrictFvncibhWIEWYKDVCE5857-09-96 11:43:00 Test Item Value Reference Range Interpretation Comments MPV (test code = MPV) 8.7 7.4-10.4 [facility] CenterPdhoogeCVYLROYEE7429-99-16 11:43:00 Test Item Value Reference Range Interpretation Comments Glucose Lvl (test code = Glucose Lvl) 93 70-99 [facility] CenterSwelhcdUJBVXBYBL7363-84-63 11:43:00 Test Item Value Reference Range Interpretation Comments BUN (test code = BUN) 13 7-22 [facility] CenterObiknalWACLYCJPY1417-96-87 11:43:00 Test Item Value Reference Range Interpretation Comments Creatinine Lvl (test code = Creatinine 0.62 0.50-1.40 Lvl) [facility] CenterHyfcdtfXJOBTZPXR0663-12-95 11:43:00 Test Item Value Reference Range Interpretation Comments Sodium Lvl (test code = Sodium Lvl) 142 135-145 [facility] CenterPqzrkddFDSKDCCRG0721-20-93 11:43:00 Test Item Value Reference Range Interpretation Comments Potassium Lvl (test code = Potassium 3.5 3.5-5.1 Lvl) [facility] CenterHjybmyoOTYBAPGJA0823-41-95 11:43:00 Test Item Value Reference Range Interpretation Comments Chloride Lvl (test code = Chloride Lvl) 109 95-109 [facility] NpyfwrtTEJMMGFCD3854-04-39 11:43:00 Test Item Value Reference Range Interpretation Comments CO2 (test code = CO2) 26 24-32 [facility]jpevypTHSTMHNMV5225-39-39 11:43:00 Test Item Value Reference Range Interpretation Comments Calcium Lvl (test code = Calcium Lvl) 8.9 8.5-10.5 [facility]bergUtnromgCOYQGACNF4948-09-85 11:43:00 Test Item Value Reference Range Interpretation Comments Total Protein (test code = Total 6.5 6.4-8.4 Protein) [facility]bergTdbvgvuKHEQXHZXN0019-62-90 11:43:00 Test Item Value Reference Range Interpretation Comments Albumin Lvl (test code = Albumin Lvl) 2.6 3.5-5.0 [facility]bergNkapygtVKWKUPLWV5864-46-28 11:43:00 Test Item Value Reference Range Interpretation Comments ALT (test code = ALT) 16 See_Comment [Auto mated message] The system which ge nerated this result transmit fabiano reference range : <=65. The reference range was not used to interpr et this result as aleks l/abnormal. [facility] KlebergIsucmfeWBNRNCSUN9345-66-13 11:43:00 Test Item Value Reference Range Interpretation Comments AST (test code = AST) 8 See_Comment [Auto mated message] The system which ge nerated this result transmit fabiano reference range : <=37. The reference range was not used to interpr et this result as aleks l/abnormal. [facility] KyywijuQMBIFOGSB5923-22-56 11:43:00 Test Item Value Reference Range Interpretation Comments Alk Phos (test code = Alk Phos) 93 39-136 [facility] KlebergRgolgipLTXOZESMY3431-89-12 11:43:00 Test Item Value Reference Range Interpretation Comments Bili Total (test code = Bili Total) 0.3 0.2-1.3 [facility] KlebergGordehtEWEBHZEYP3116-71-41 11:43:00 Test Item Value Reference Range Interpretation Comments AGAP (test code = AGAP) 10.5 10.0-20.0 [facility] KlebergYynogznIBNWEQJQX4145-89-49 11:43:00 Test Item Value Reference Range Interpretation Comments B/C Ratio (test code = B/C Ratio) 21 1 6-25 [place] 774022-10-26 11:43:00 Test Item Value Reference Range Interpretation Comments Globulin (test code = Globulin) 3.9 2.7-4.2 [place] 774022-10-26 11:43:00 Test Item Value Reference Range Interpretation Comments A/G Ratio (test code = A/G Ratio) 0.7 1 0.7-1.6 [place] 774022-10-26 11:43:00 Test Item Value Reference Range Interpretation Comments eGFR (test code = eGFR) 107 [place] 495052-10-26 11:43:00 Test Item Value Reference Range Interpretation Comments Segs (test code = Segs) 75.4 45.0-75.0 [place] 495052-10-26 11:43:00 Test Item Value Reference Range Interpretation Comments Lymphocytes (test code = Lymphocytes) 17.6 20.0-40.0 [place] 495052-10-26 11:43:00 Test Item Value Reference Range Interpretation Comments Monocytes (test code = Monocytes) 5.9 2.0-12.0 [place] 495052-10-26 11:43:00 Test Item Value Reference Range Interpretation Comments Eosinophils (test code = 0.5 See_Comment [A utomated message] The Eosinophils) system which ge nerated this result tra nsmitted reference range : <=4.0. The reference r quynh was not used to int erpret this result as normal/abnormal . [facility] DistrictJnjhoqmWBIXYTBEUA3986-11-92 11:43:00 Test Item Value Reference Range Interpretation Comments Basophils (test code = 0.6 See_Comment [Aut omated message] The Basophils) system which ge nerated this result tra nsmitted reference range : <=1.0. The reference r quynh was not used to int erpret this result as normal/abnormal . [place] 495052-10-26 11:43:00 Test Item Value Reference Range Interpretation Comments Neutrophils # (test code = Neutrophils 8.1 1.5-8.1 #) [place] 495052-10-26 11:43:00 Test Item Value Reference Range Interpretation Comments Lymphocytes # (test code = Lymphocytes 1.9 1.0-5.5 #) [place] 495052-10-26 11:43:00 Test Item Value Reference Range Interpretation Comments Monocytes # (test code 0.6 See_Comment [Aut omated message] The = Monocytes #) system which generated this result tra nsmitted reference range : <=0.8. The reference r quynh was not used to int erpret this result as normal/abnormal . [facility] DistrictEaeuvfcEQUCROQDOQ3077-75-26 11:43:00 Test Item Value Reference Range Interpretation Comments Basophils # (test code 0.1 See_Comment [Aut omated message] The = Basophils #) system which generated this result tra nsmitted reference range : <=0.2. The reference r quynh was not used to int erpret this result as normal/abnormal . [place] 495052-10-26 11:43:00 Test Item Value Reference Range Interpretation Comments Microcyte (test code = 1+ *ABN*(04/24/22 Microcyte) 6:43 AM) [place] 495052-10-26 11:43:00 Test Item Value Reference Range Interpretation Comments WBC (test code = WBC) 10.8 3.7-10.4 [facility] DistrictTyztyttZBKEUMUNRX7323-97-36 11:43:00 Test Item Value Reference Range Interpretation Comments RBC (test code = RBC) 3.62 4.20-5.40 [facility] DistrictIhkoyehRPAYMEOAIE7589-43-25 11:43:00 Test Item Value Reference Range Interpretation Comments Hgb (test code = Hgb) 9.7 12.0-16.0 [facility] DistrictLxrcrufGBHPTZTTHV6136-06-12 11:43:00 Test Item Value Reference Range Interpretation Comments Hct (test code = Hct) 28.6 36.0-48.0 [place] 495052-10-26 11:43:00 Test Item Value Reference Range Interpretation Comments MCV (test code = MCV) 78.9 80.0-98.0 [facility] DistrictUvryssqNHNGTKTBMT9363-74-26 11:43:00 Test Item Value Reference Range Interpretation Comments MCH (test code = MCH) 26.9 pg 27.0-31.0 [facility] DistrictOostwedHWXGZQLOGC3582-60-16 11:43:00 Test Item Value Reference Range Interpretation Comments MCHC (test code = MCHC) 34.1 32.0-36.0 [facility] DistrictVaddpuxOWRYTDRDFF1877-43-37 11:43:00 Test Item Value Reference Range Interpretation Comments RDW (test code = RDW) 16.3 11.5-14.5 [facility] DistrictFtommzoMBIKUBQURP2015-54-83 11:43:00 Test Item Value Reference Range Interpretation Comments Platelet (test code = Platelet) 242 133-450 [facility] DistrictGvagrpbRAVCGVJYHC0164-25-50 11:43:00 Test Item Value Reference Range Interpretation Comments MPV (test code = MPV) 8.7 7.4-10.4 [facility] CenterVngyfziQZKJGWVMS3705-90-62 11:43:00 Test Item Value Reference Range Interpretation Comments Glucose Lvl (test code = Glucose Lvl) 93 70-99 [facility] CenterNufgnnqTGYJPUIZF1842-41-19 11:43:00 Test Item Value Reference Range Interpretation Comments BUN (test code = BUN) 13 7-22 [place] 774022-10-26 11:43:00 Test Item Value Reference Range Interpretation Comments Creatinine Lvl (test code = Creatinine 0.62 0.50-1.40 Lvl) [facility] CenterOnvevrfJVVSPVCTF4423-22-54 11:43:00 Test Item Value Reference Range Interpretation Comments Sodium Lvl (test code = Sodium Lvl) 142 135-145 [facility] CenterCfsudecGMZECGHPB5843-10-14 11:43:00 Test Item Value Reference Range Interpretation Comments Potassium Lvl (test code = Potassium 3.5 3.5-5.1 Lvl) [facility] CenterKpvovliSGSGWQCIV3555-33-51 11:43:00 Test Item Value Reference Range Interpretation Comments Chloride Lvl (test code = Chloride Lvl) 109 95-109 [facility] CenterPvdgeciWXRAWOLMD3080-28-49 11:43:00 Test Item Value Reference Range Interpretation Comments CO2 (test code = CO2) -32 [place] 774022-10-26 11:43:00 Test Item Value Reference Range Interpretation Comments Calcium Lvl (test code = Calcium Lvl) 8.9 8.5-10.5 [facility] CenterKuiyvetGDPSRQKEC9817-26-13 11:43:00 Test Item Value Reference Range Interpretation Comments Total Protein (test code = Total 6.5 6.4-8.4 Protein) [facility] CenterIujamlmGIWWXBPEJ2652-08-00 11:43:00 Test Item Value Reference Range Interpretation Comments Albumin Lvl (test code = Albumin Lvl) 2.6 3.5-5.0 [place] 774022-10-26 11:43:00 Test Item Value Reference Range Interpretation Comments ALT (test code = ALT) 16 See_Comment [Auto mated message] The system which ge nerated this result transmit fabiano reference range : <=65. The reference range was not used to interpr et this result as aleks l/abnormal. [facility] WsrmvrnEWWSOWDWL0785-33-81 11:43:00 Test Item Value Reference Range Interpretation Comments AST (test code = AST) 8 See_Comment [Auto mated message] The system which ge nerated this result transmit fabiano reference range : <=37. The reference range was not used to interpr et this result as aleks l/abnormal. [facility] EbklcetINLEKEOSX0940-72-96 11:43:00 Test Item Value Reference Range Interpretation Comments Alk Phos (test code = Alk Phos) 93 39-136 [facility] TiemljhEQOSWOLNP0386-27-98 11:43:00 Test Item Value Reference Range Interpretation Comments Bili Total (test code = Bili Total) 0.3 0.2-1.3 [facility] JxiqbtbQAKAUDZXC4275-79-95 11:43:00 Test Item Value Reference Range Interpretation Comments AGAP (test code = AGAP) 10.5 10.0-20.0 [facility] AyznugkYLXJZMYKA9017-25-05 11:43:00 Test Item Value Reference Range Interpretation Comments B/C Ratio (test code = B/C Ratio) 21 1 6-25 [facility] LfgnaqxGBJNIHJJT8570-41-25 11:43:00 Test Item Value Reference Range Interpretation Comments Globulin (test code = Globulin) 3.9 2.7-4.2 [facility] VdmrgxzUTSJHEXOQ1037-87-63 11:43:00 Test Item Value Reference Range Interpretation Comments A/G Ratio (test code = A/G Ratio) 0.7 1 0.7-1.6 [facility] GwvenqwNFZCGBZYS6760-07-07 11:43:00 Test Item Value Reference Range Interpretation Comments eGFR (test code = eGFR) 107 [facility] JlfvztjMHRBIVGCAV4118-73-52 11:43:00 Test Item Value Reference Range Interpretation Comments Segs (test code = Segs) 75.4 45.0-75.0 [facility] JashvcjJJOTNPXQKA8916-04-68 11:43:00 Test Item Value Reference Range Interpretation Comments Lymphocytes (test code = Lymphocytes) 17.6 20.0-40.0 [place] 495052-10-26 11:43:00 Test Item Value Reference Range Interpretation Comments Monocytes (test code = Monocytes) 5.9 2.0-12.0 [place] 495052-10-26 11:43:00 Test Item Value Reference Range Interpretation Comments Eosinophils (test code = 0.5 See_Comment [A utomated message] The Eosinophils) system which ge nerated this result tra nsmitted reference range : <=4.0. The reference r qyunh was not used to int erpret this result as normal/abnormal . [place] [address]-10-26 11:43:00 Test Item Value Reference Range Interpretation Comments Basophils (test code = 0.6 See_Comment [Aut omated message] The Basophils) system which ge nerated this result tra nsmitted reference range : <=1.0. The reference r quynh was not used to int erpret this result as normal/abnormal . [place] 495052-10-26 11:43:00 Test Item Value Reference Range Interpretation Comments Neutrophils # (test code = Neutrophils 8.1 1.5-8.1 #) [place] 495052-10-26 11:43:00 Test Item Value Reference Range Interpretation Comments Lymphocytes # (test code = Lymphocytes 1.9 1.0-5.5 #) [place] 495052-10-26 11:43:00 Test Item Value Reference Range Interpretation Comments Monocytes # (test code 0.6 See_Comment [Aut omated message] The = Monocytes #) system which generated this result tra nsmitted reference range : <=0.8. The reference r quynh was not used to int erpret this result as normal/abnormal . [place] [address]-10-26 11:43:00 Test Item Value Reference Range Interpretation Comments Basophils # (test code 0.1 See_Comment [Aut omated message] The = Basophils #) system which generated this result tra nsmitted reference range : <=0.2. The reference r quynh was not used to int erpret this result as normal/abnormal . [place] [address]-10-26 11:43:00 Test Item Value Reference Range Interpretation Comments Microcyte (test code = 1+ *ABN*(04/24/22 Microcyte) 6:43 AM) [facility] DistrictDiofhdrUJIYBNCYAY2816-13-53 11:43:00 Test Item Value Reference Range Interpretation Comments WBC (test code = WBC) 10.8 3.7-10.4 [facility] DistrictOlsxnykDRHXKHWZDX1197-24-24 11:43:00 Test Item Value Reference Range Interpretation Comments RBC (test code = RBC) 3.62 4.20-5.40 [facility] DistrictPzrzijdERAJSZDKBO7287-61-69 11:43:00 Test Item Value Reference Range Interpretation Comments Hgb (test code = Hgb) 9.7 12.0-16.0 [facility] DistrictQhndjavYPDRXCZJLQ4813-65-22 11:43:00 Test Item Value Reference Range Interpretation Comments Hct (test code = Hct) 28.6 36.0-48.0 [facility] DistrictMzkyphwCNWFJKMGJP7378-15-03 11:43:00 Test Item Value Reference Range Interpretation Comments MCV (test code = MCV) 78.9 80.0-98.0 [facility] DistrictPwepzycZGURAKFZUZ0934-27-64 11:43:00 Test Item Value Reference Range Interpretation Comments MCH (test code = MCH) 26.9 pg 27.0-31.0 [facility] DistrictXtgqcymGFPSUAFWNN5669-05-75 11:43:00 Test Item Value Reference Range Interpretation Comments MCHC (test code = MCHC) 34.1 32.0-36.0 [facility] DistrictPfiimfwYEKFOZWHQP9940-23-17 11:43:00 Test Item Value Reference Range Interpretation Comments RDW (test code = RDW) 16.3 11.5-14.5 [facility] DistrictIzpipeqHGQFTROQCV0147-56-37 11:43:00 Test Item Value Reference Range Interpretation Comments Platelet (test code = Platelet) 242 133-450 [facility] DistrictJsxogjpOVUNOMIGTG2138-16-02 11:43:00 Test Item Value Reference Range Interpretation Comments MPV (test code = MPV) 8.7 7.4-10.4 [facility] CenterMisnjwfFSYVPMBSE8208-80-47 11:43:00 Test Item Value Reference Range Interpretation Comments Glucose Lvl (test code = Glucose Lvl) 93 70-99 [facility] CenterHsfdfykQGXFLWDQJ9640-44-44 11:43:00 Test Item Value Reference Range Interpretation Comments BUN (test code = BUN) 13 - [facility] CenterJkyvbczWFJHQYBPN5602-75-24 11:43:00 Test Item Value Reference Range Interpretation Comments Creatinine Lvl (test code = Creatinine 0.62 0.50-1.40 Lvl) [facility] CenterYlpgtjlPWIAOOSCQ6513-55-56 11:43:00 Test Item Value Reference Range Interpretation Comments Sodium Lvl (test code = Sodium Lvl) 142 135-145 [place] 774022-10-26 11:43:00 Test Item Value Reference Range Interpretation Comments Potassium Lvl (test code = Potassium 3.5 3.5-5.1 Lvl) [facility] CenterMsainbaUNGKJWDNU9268-18-64 11:43:00 Test Item Value Reference Range Interpretation Comments Chloride Lvl (test code = Chloride Lvl) 109 95-109 [place] 774022-10-26 11:43:00 Test Item Value Reference Range Interpretation Comments CO2 (test code = CO2) - [place] 774022-10-26 11:43:00 Test Item Value Reference Range Interpretation Comments Calcium Lvl (test code = Calcium Lvl) 8.9 8.5-10.5 [facility] CenterWfvoquePJGRLFKCC1375-95-48 11:43:00 Test Item Value Reference Range Interpretation Comments Total Protein (test code = Total 6.5 6.4-8.4 Protein) [facility] CenterPtqqgtqIJWEAEWUS0873-77-79 11:43:00 Test Item Value Reference Range Interpretation Comments Albumin Lvl (test code = Albumin Lvl) 2.6 3.5-5.0 [facility] CenterFslkpqtVHDBENINQ6390-73-23 11:43:00 Test Item Value Reference Range Interpretation Comments ALT (test code = ALT) 16 See_Comment [Auto mated message] The system which nerated this result transmit fabiano reference range : <=65. The reference range was not used to interpr et this result as aleks l/abnormal. [facility] CenterHfkqxhgXOWWTBVLZ5552-50-11 11:43:00 Test Item Value Reference Range Interpretation Comments AST (test code = AST) 8 See_Comment [Auto mated message] The system which nerated this result transmit fabiano reference range : <=37. The reference range was not used to interpr et this result as laeks l/abnormal. [facility] CenterMxdcdbgJSZDQBHOL1873-61-98 11:43:00 Test Item Value Reference Range Interpretation Comments Alk Phos (test code = Alk Phos) 93 39-136 [place] 774022-10-26 11:43:00 Test Item Value Reference Range Interpretation Comments Bili Total (test code = Bili Total) 0.3 0.2-1.3 [place] 774022-10-26 11:43:00 Test Item Value Reference Range Interpretation Comments AGAP (test code = AGAP) 10.5 10.0-20.0 [place] 774022-10-26 11:43:00 Test Item Value Reference Range Interpretation Comments B/C Ratio (test code = B/C Ratio) 21 1 6-25 [place] [address]-10-26 11:43:00 Test Item Value Reference Range Interpretation Comments Globulin (test code = Globulin) 3.9 2.7-4.2 [place] [address]-10-26 11:43:00 Test Item Value Reference Range Interpretation Comments A/G Ratio (test code = A/G Ratio) 0.7 1 0.7-1.6 [place] [address]-10-26 11:43:00 Test Item Value Reference Range Interpretation Comments eGFR (test code = eGFR) 107 [facility] DistrictYzrmbspSEVKPHWLKD1853-03-56 11:43:00 Test Item Value Reference Range Interpretation Comments Segs (test code = Segs) 75.4 45.0-75.0 [place] [address]-10-26 11:43:00 Test Item Value Reference Range Interpretation Comments Lymphocytes (test code = Lymphocytes) 17.6 20.0-40.0 [place] 495052-10-26 11:43:00 Test Item Value Reference Range Interpretation Comments Monocytes (test code = Monocytes) 5.9 2.0-12.0 [place] [address]-10-26 11:43:00 Test Item Value Reference Range Interpretation Comments Eosinophils (test code = 0.5 See_Comment [A utomated message] The Eosinophils) system which ge nerated this result tra nsmitted reference range : <=4.0. The reference r quynh was not used to int erpret this result as normal/abnormal . [place] 495052-10-26 11:43:00 Test Item Value Reference Range Interpretation Comments Basophils (test code = 0.6 See_Comment [Aut omated message] The Basophils) system which ge nerated this result tra nsmitted reference range : <=1.0. The reference r quynh was not used to int erpret this result as normal/abnormal . [facility] DistrictZwjbnhmUOMKQPIYZZ0932-09-16 11:43:00 Test Item Value Reference Range Interpretation Comments Neutrophils # (test code = Neutrophils 8.1 1.5-8.1 #) [facility] DistrictXetcnjkVHASFVGLMC7937-92-65 11:43:00 Test Item Value Reference Range Interpretation Comments Lymphocytes # (test code = Lymphocytes 1.9 1.0-5.5 #) [place] 495052-10-26 11:43:00 Test Item Value Reference Range Interpretation Comments Monocytes # (test code 0.6 See_Comment [Aut omated message] The = Monocytes #) system which generated this result tra nsmitted reference range : <=0.8. The reference r quynh was not used to int erpret this result as normal/abnormal . [place] [address]-10-26 11:43:00 Test Item Value Reference Range Interpretation Comments Basophils # (test code 0.1 See_Comment [Aut omated message] The = Basophils #) system which generated this result tra nsmitted reference range : <=0.2. The reference r quynh was not used to int erpret this result as normal/abnormal . [facility] DistrictAxbfsriHVRZRVFEMZ2545-85-75 11:43:00 Test Item Value Reference Range Interpretation Comments Microcyte (test code = 1+ *ABN*(04/24/22 Microcyte) 6:43 AM) [place] [address]-10-26 11:43:00 Test Item Value Reference Range Interpretation Comments WBC (test code = WBC) 10.8 3.7-10.4 [place] [address]-10-26 11:43:00 Test Item Value Reference Range Interpretation Comments RBC (test code = RBC) 3.62 4.20-5.40 [place] [address]-10-26 11:43:00 Test Item Value Reference Range Interpretation Comments Hgb (test code = Hgb) 9.7 12.0-16.0 [place] [address]-10-26 11:43:00 Test Item Value Reference Range Interpretation Comments Hct (test code = Hct) 28.6 36.0-48.0 [place] [address]-10-26 11:43:00 Test Item Value Reference Range Interpretation Comments MCV (test code = MCV) 78.9 80.0-98.0 [facility] DistrictDubydpjMOZTRAUGTI2588-64-37 11:43:00 Test Item Value Reference Range Interpretation Comments MCH (test code = MCH) 26.9 pg 27.0-31.0 [facility] DistrictDbahzxrYVHZYBMARR8298-78-76 11:43:00 Test Item Value Reference Range Interpretation Comments MCHC (test code = MCHC) 34.1 32.0-36.0 [facility] DistrictDgliwsyXEZKXMTGFC0142-80-66 11:43:00 Test Item Value Reference Range Interpretation Comments RDW (test code = RDW) 16.3 11.5-14.5 [facility] DistrictHieyovgNXSATSQQBK4209-74-94 11:43:00 Test Item Value Reference Range Interpretation Comments Platelet (test code = Platelet) 242 133-450 [facility] DistrictSxwmxntFERTTMCWBW9143-20-53 11:43:00 Test Item Value Reference Range Interpretation Comments MPV (test code = MPV) 8.7 7.4-10.4 [facility] CenterLcjfusrELEVWWDQJ7572-32-65 11:43:00 Test Item Value Reference Range Interpretation Comments Glucose Lvl (test code = Glucose Lvl) 93 70-99 [facility] CenterRrhfhtjARPPGMZOJ5930-52-39 11:43:00 Test Item Value Reference Range Interpretation Comments BUN (test code = BUN) 13 7-22 [facility] CenterAmpypmqTEJIGVZBJ6410-52-75 11:43:00 Test Item Value Reference Range Interpretation Comments Creatinine Lvl (test code = Creatinine 0.62 0.50-1.40 Lvl) [facility] CenterYiouygfWNKIRJTAR1744-00-89 11:43:00 Test Item Value Reference Range Interpretation Comments Sodium Lvl (test code = Sodium Lvl) 142 135-145 [facility] CenterJcajzfkEDYTUUQYW9535-38-66 11:43:00 Test Item Value Reference Range Interpretation Comments Potassium Lvl (test code = Potassium 3.5 3.5-5.1 Lvl) [facility] CenterRplabqeNTEKVUHYK3653-32-92 11:43:00 Test Item Value Reference Range Interpretation Comments Chloride Lvl (test code = Chloride Lvl) 109 95-109 [facility] CenterIuffascFTNFVJGKZ7637-76-46 11:43:00 Test Item Value Reference Range Interpretation Comments CO2 (test code = CO2) 26 24-32 [place] 774022-10-26 11:43:00 Test Item Value Reference Range Interpretation Comments Calcium Lvl (test code = Calcium Lvl) 8.9 8.5-10.5 [facility]YxvkzucPZGKGDULT3002-82-74 11:43:00 Test Item Value Reference Range Interpretation Comments Total Protein (test code = Total 6.5 6.4-8.4 Protein) [facility]bergGhhtupwZCDJKKCMC6697-42-17 11:43:00 Test Item Value Reference Range Interpretation Comments Albumin Lvl (test code = Albumin Lvl) 2.6 3.5-5.0 [facility] KlebergHzhhuigNEMJMNSNP5414-30-90 11:43:00 Test Item Value Reference Range Interpretation Comments ALT (test code = ALT) 16 See_Comment [Auto mated message] The system which ge nerated this result transmit fabiano reference range : <=65. The reference range was not used to interpr et this result as aleks l/abnormal. [facility]bergSrvwrwuXZXVMFWVO4938-80-18 11:43:00 Test Item Value Reference Range Interpretation Comments AST (test code = AST) 8 See_Comment [Auto mated message] The system which ge nerated this result transmit fabiano reference range : <=37. The reference range was not used to interpr et this result as aleks l/abnormal. [facility] SpfpdpwQPKZJABEV2713-00-03 11:43:00 Test Item Value Reference Range Interpretation Comments Alk Phos (test code = Alk Phos) 93 39-136 [facility] KlebergDuaaewuOHHEQQAMU6158-53-94 11:43:00 Test Item Value Reference Range Interpretation Comments Bili Total (test code = Bili Total) 0.3 0.2-1.3 [facility] JeqckegNSEXKATOC9031-06-33 11:43:00 Test Item Value Reference Range Interpretation Comments AGAP (test code = AGAP) 10.5 10.0-20.0 [facility] VxszwxqPHFNIWGRQ3887-81-13 11:43:00 Test Item Value Reference Range Interpretation Comments B/C Ratio (test code = B/C Ratio) 21 1 6-25 [facility] KlebergIkbfxalEALYXGBEU1976-38-73 11:43:00 Test Item Value Reference Range Interpretation Comments Globulin (test code = Globulin) 3.9 2.7-4.2 [facility] WwdtjqwXPSRJYJNH6877-74-67 11:43:00 Test Item Value Reference Range Interpretation Comments A/G Ratio (test code = A/G Ratio) 0.7 1 0.7-1.6 [place] 774022-10-26 11:43:00 Test Item Value Reference Range Interpretation Comments eGFR (test code = eGFR) 107 [place] 495052-10-26 11:43:00 Test Item Value Reference Range Interpretation Comments Segs (test code = Segs) 75.4 45.0-75.0 [place] 495052-10-26 11:43:00 Test Item Value Reference Range Interpretation Comments Lymphocytes (test code = Lymphocytes) 17.6 20.0-40.0 [place] [address]-10-26 11:43:00 Test Item Value Reference Range Interpretation Comments Monocytes (test code = Monocytes) 5.9 2.0-12.0 [place] [address]-10-26 11:43:00 Test Item Value Reference Range Interpretation Comments Eosinophils (test code = 0.5 See_Comment [A utomated message] The Eosinophils) system which ge nerated this result tra nsmitted reference range : <=4.0. The reference r quynh was not used to int erpret this result as normal/abnormal . [place] [address]-10-26 11:43:00 Test Item Value Reference Range Interpretation Comments Basophils (test code = 0.6 See_Comment [Aut omated message] The Basophils) system which ge nerated this result tra nsmitted reference range : <=1.0. The reference r quynh was not used to int erpret this result as normal/abnormal . [place] 495052-10-26 11:43:00 Test Item Value Reference Range Interpretation Comments Neutrophils # (test code = Neutrophils 8.1 1.5-8.1 #) [place] [address]-10-26 11:43:00 Test Item Value Reference Range Interpretation Comments Lymphocytes # (test code = Lymphocytes 1.9 1.0-5.5 #) [place] 495052-10-26 11:43:00 Test Item Value Reference Range Interpretation Comments Monocytes # (test code 0.6 See_Comment [Aut omated message] The = Monocytes #) system which generated this result tra nsmitted reference range : <=0.8. The reference r quynh was not used to int erpret this result as normal/abnormal . [facility] DistrictAlzjuodWMRNAACGYQ6393-21-60 11:43:00 Test Item Value Reference Range Interpretation Comments Basophils # (test code 0.1 See_Comment [Aut omated message] The = Basophils #) system which generated this result tra nsmitted reference range : <=0.2. The reference r quynh was not used to int erpret this result as normal/abnormal . [facility] DistrictArvdcfpDLMWPACNNY6204-57-49 11:43:00 Test Item Value Reference Range Interpretation Comments Microcyte (test code = 1+ *ABN*(04/24/22 Microcyte) 6:43 AM) [facility] DistrictAlcphmvQMBBAZVNHO1803-55-37 11:43:00 Test Item Value Reference Range Interpretation Comments WBC (test code = WBC) 10.8 3.7-10.4 [facility] DistrictCgrnkusVWWDQUWGQA5080-04-94 11:43:00 Test Item Value Reference Range Interpretation Comments RBC (test code = RBC) 3.62 4.20-5.40 [facility] DistrictHvitcgbFQGBCFDQMT5895-74-54 11:43:00 Test Item Value Reference Range Interpretation Comments Hgb (test code = Hgb) 9.7 12.0-16.0 [place] 495052-10-26 11:43:00 Test Item Value Reference Range Interpretation Comments Hct (test code = Hct) 28.6 36.0-48.0 [facility] DistrictUhlabkhUKFXYTFXPN7567-02-01 11:43:00 Test Item Value Reference Range Interpretation Comments MCV (test code = MCV) 78.9 80.0-98.0 [facility] DistrictZnmwpbhYGANOQFZAN9405-66-97 11:43:00 Test Item Value Reference Range Interpretation Comments MCH (test code = MCH) 26.9 pg 27.0-31.0 [facility] DistrictRljzhyvWFYYGYXOTQ7044-96-20 11:43:00 Test Item Value Reference Range Interpretation Comments MCHC (test code = MCHC) 34.1 32.0-36.0 [place] 495052-10-26 11:43:00 Test Item Value Reference Range Interpretation Comments RDW (test code = RDW) 16.3 11.5-14.5 [place] 495052-10-26 11:43:00 Test Item Value Reference Range Interpretation Comments Platelet (test code = Platelet) 242 133-450 [facility]YouibpaIRXDJMOPYV3364-65-69 11:43:00 Test Item Value Reference Range Interpretation Comments MPV (test code = MPV) 8.7 7.4-10.4 [place] 774022-10-26 11:43:00 Test Item Value Reference Range Interpretation Comments Glucose Lvl (test code = Glucose Lvl) 93 70-99 [place] [address]-10-26 11:43:00 Test Item Value Reference Range Interpretation Comments BUN (test code = BUN) 13 7-22 [facility] CenterAdjgwpbOMLGUWPRF7331-54-66 11:43:00 Test Item Value Reference Range Interpretation Comments Creatinine Lvl (test code = Creatinine 0.62 0.50-1.40 Lvl) [facility] CenterGthfgwoFXENAXYGY1782-37-03 11:43:00 Test Item Value Reference Range Interpretation Comments Sodium Lvl (test code = Sodium Lvl) 142 135-145 [place] 774022-10-26 11:43:00 Test Item Value Reference Range Interpretation Comments Potassium Lvl (test code = Potassium 3.5 3.5-5.1 Lvl) [facility] CenterAcufzznNHDQXWLBG4133-09-92 11:43:00 Test Item Value Reference Range Interpretation Comments Chloride Lvl (test code = Chloride Lvl) 109 95-109 [facility] CenterCxhjqxrPMMEKWSPL2513-57-31 11:43:00 Test Item Value Reference Range Interpretation Comments CO2 (test code = CO2) 26 24-32 [facility] CenterQdirrshOBYNUKIFY2203-75-80 11:43:00 Test Item Value Reference Range Interpretation Comments Calcium Lvl (test code = Calcium Lvl) 8.9 8.5-10.5 [facility] CenterLpkykpdIBNIUGAXT1887-61-77 11:43:00 Test Item Value Reference Range Interpretation Comments Total Protein (test code = Total 6.5 6.4-8.4 Protein) [facility] CenterZbzdkhnRSBPCXGBU8718-61-72 11:43:00 Test Item Value Reference Range Interpretation Comments Albumin Lvl (test code = Albumin Lvl) 2.6 3.5-5.0 [place] 774022-10-26 11:43:00 Test Item Value Reference Range Interpretation Comments ALT (test code = ALT) 16 See_Comment [Auto mated message] The system which ge nerated this result transmit fabiano reference range : <=65. The reference range was not used to interpr et this result as aleks l/abnormal. [facility]bergJvmwztpLAJHYHVRT8022-87-01 11:43:00 Test Item Value Reference Range Interpretation Comments AST (test code = AST) 8 See_Comment [Auto mated message] The system which ge nerated this result transmit fabiano reference range : <=37. The reference range was not used to interpr et this result as aleks l/abnormal. [facility]bergFjgudnqXAMOVJRDF9497-47-07 11:43:00 Test Item Value Reference Range Interpretation Comments Alk Phos (test code = Alk Phos) 93 39-136 [facility] KlebergRtnmqlkWSIPLRKQY7308-82-98 11:43:00 Test Item Value Reference Range Interpretation Comments Bili Total (test code = Bili Total) 0.3 0.2-1.3 [facility] KlebergYpbvvhyIETSTPINI2818-52-39 11:43:00 Test Item Value Reference Range Interpretation Comments AGAP (test code = AGAP) 10.5 10.0-20.0 [facility] KlebergRmfdlvtLYIRSWMUT0519-08-67 11:43:00 Test Item Value Reference Range Interpretation Comments B/C Ratio (test code = B/C Ratio) 21 1 6-25 [facility] KlebergSiagiiwIQMAXNVTG3547-85-72 11:43:00 Test Item Value Reference Range Interpretation Comments Globulin (test code = Globulin) 3.9 2.7-4.2 [facility] KlebergNmsptrnSYQEIXEOH9552-43-52 11:43:00 Test Item Value Reference Range Interpretation Comments A/G Ratio (test code = A/G Ratio) 0.7 1 0.7-1.6 [facility] KlebergZkkylcxTVMDXFBOD9215-57-24 11:43:00 Test Item Value Reference Range Interpretation Comments eGFR (test code = eGFR) 107 [facility] KlebergImebvciDSQKSTEBZX3469-54-66 11:43:00 Test Item Value Reference Range Interpretation Comments Segs (test code = Segs) 75.4 45.0-75.0 [facility] KlebergDhklffdISWFYAOOQH1989-58-77 11:43:00 Test Item Value Reference Range Interpretation Comments Lymphocytes (test code = Lymphocytes) 17.6 20.0-40.0 [facility] KlebergBqymfgbMQJWWCMNSG7393-77-36 11:43:00 Test Item Value Reference Range Interpretation Comments Monocytes (test code = Monocytes) 5.9 2.0-12.0 [place] 495052-10-26 11:43:00 Test Item Value Reference Range Interpretation Comments Eosinophils (test code = 0.5 See_Comment [A utomated message] The Eosinophils) system which ge nerated this result tra nsmitted reference range : <=4.0. The reference r quynh was not used to int erpret this result as normal/abnormal . [facility] DistrictWjzfrzvVYUXDZKCSH2200-84-28 11:43:00 Test Item Value Reference Range Interpretation Comments Basophils (test code = 0.6 See_Comment [Aut omated message] The Basophils) system which ge nerated this result tra nsmitted reference range : <=1.0. The reference r quynh was not used to int erpret this result as normal/abnormal . [facility] DistrictYlgygdrVMWRPTNCVU1599-81-98 11:43:00 Test Item Value Reference Range Interpretation Comments Neutrophils # (test code = Neutrophils 8.1 1.5-8.1 #) [facility] DistrictUrcgpecCUMCHHWUTO6457-14-05 11:43:00 Test Item Value Reference Range Interpretation Comments Lymphocytes # (test code = Lymphocytes 1.9 1.0-5.5 #) [place] 495052-10-26 11:43:00 Test Item Value Reference Range Interpretation Comments Monocytes # (test code 0.6 See_Comment [Aut omated message] The = Monocytes #) system which generated this result tra nsmitted reference range : <=0.8. The reference r quynh was not used to int erpret this result as normal/abnormal . [facility] DistrictKbflgpdAXNAWHPHGR6985-39-93 11:43:00 Test Item Value Reference Range Interpretation Comments Basophils # (test code 0.1 See_Comment [Aut omated message] The = Basophils #) system which generated this result tra nsmitted reference range : <=0.2. The reference r quynh was not used to int erpret this result as normal/abnormal . [facility] DistrictOrwgbrbMWUEEOSLGA6327-46-00 11:43:00 Test Item Value Reference Range Interpretation Comments Microcyte (test code = 1+ *ABN*(04/24/22 Microcyte) 6:43 AM) [place] 495052-10-26 11:43:00 Test Item Value Reference Range Interpretation Comments WBC (test code = WBC) 10.8 3.7-10.4 [place] [address]-10-26 11:43:00 Test Item Value Reference Range Interpretation Comments RBC (test code = RBC) 3.62 4.20-5.40 [facility] DistrictSdqwzghWJBNMAGBUC2951-84-71 11:43:00 Test Item Value Reference Range Interpretation Comments Hgb (test code = Hgb) 9.7 12.0-16.0 [place] 495052-10-26 11:43:00 Test Item Value Reference Range Interpretation Comments Hct (test code = Hct) 28.6 36.0-48.0 [facility] DistrictWvmykrwYWFCANKMFX4654-27-27 11:43:00 Test Item Value Reference Range Interpretation Comments MCV (test code = MCV) 78.9 80.0-98.0 [facility] DistrictEzmkilyVTAQKXVMVV2080-22-11 11:43:00 Test Item Value Reference Range Interpretation Comments MCH (test code = MCH) 26.9 pg 27.0-31.0 [facility] DistrictRbezjshTBWGPYPJFM1470-05-70 11:43:00 Test Item Value Reference Range Interpretation Comments MCHC (test code = MCHC) 34.1 32.0-36.0 [facility] DistrictJcjswdnUJGLYLEWXN2521-37-39 11:43:00 Test Item Value Reference Range Interpretation Comments RDW (test code = RDW) 16.3 11.5-14.5 [facility] DistrictChaflpxLMNVGXJSPS3644-51-13 11:43:00 Test Item Value Reference Range Interpretation Comments Platelet (test code = Platelet) 242 133-450 [facility] DistrictNrefmepMHUSBOZIQG3160-55-44 11:43:00 Test Item Value Reference Range Interpretation Comments MPV (test code = MPV) 8.7 7.4-10.4 [facility] CenterIwebkxeUYKJQACQQ7350-56-02 11:43:00 Test Item Value Reference Range Interpretation Comments Glucose Lvl (test code = Glucose Lvl) 93 70-99 [facility] CenterRxfpbeeAHQKUVKEU5189-54-21 11:43:00 Test Item Value Reference Range Interpretation Comments BUN (test code = BUN) 13 - [facility] CenterIykhqxgKYCBEHCUZ1312-90-70 11:43:00 Test Item Value Reference Range Interpretation Comments Creatinine Lvl (test code = Creatinine 0.62 0.50-1.40 Lvl) [facility] CenterCyyaqxeWZBCDHUSP7427-81-64 11:43:00 Test Item Value Reference Range Interpretation Comments Sodium Lvl (test code = Sodium Lvl) 142 135-145 [facility] KlebergLgeoyzbDLDTEICWK7257-80-77 11:43:00 Test Item Value Reference Range Interpretation Comments Potassium Lvl (test code = Potassium 3.5 3.5-5.1 Lvl) [facility] CenterJnwhpfhAVXVRCVSA4734-50-79 11:43:00 Test Item Value Reference Range Interpretation Comments Chloride Lvl (test code = Chloride Lvl) 109 95-109 [facility] KlebergErqscnzZCIUNXSLG5407-61-33 11:43:00 Test Item Value Reference Range Interpretation Comments CO2 (test code = CO2) 26 24-32 [facility] CenterHefigbeLNQKHHSUY1474-62-98 11:43:00 Test Item Value Reference Range Interpretation Comments Calcium Lvl (test code = Calcium Lvl) 8.9 8.5-10.5 [facility] KlebergDvcbtgcKMDKCQDDN0050-27-23 11:43:00 Test Item Value Reference Range Interpretation Comments Total Protein (test code = Total 6.5 6.4-8.4 Protein) [facility] CenterNltuwkvNXKEGCQIL8658-80-72 11:43:00 Test Item Value Reference Range Interpretation Comments Albumin Lvl (test code = Albumin Lvl) 2.6 3.5-5.0 [facility] KlebergNixwsieCZVIRGFIO6631-96-08 11:43:00 Test Item Value Reference Range Interpretation Comments ALT (test code = ALT) 16 See_Comment [Auto mated message] The system which ge nerated this result transmit fabiano reference range : <=65. The reference range was not used to interpr et this result as aleks l/abnormal. [facility] CenterDbbovozUSPELDPEJ9964-73-56 11:43:00 Test Item Value Reference Range Interpretation Comments AST (test code = AST) 8 See_Comment [Auto mated message] The system which ge nerated this result transmit fabiano reference range : <=37. The reference range was not used to interpr et this result as aleks l/abnormal. [facility] KlebergFbiztjlGKPEMUDNJ8156-82-23 11:43:00 Test Item Value Reference Range Interpretation Comments Alk Phos (test code = Alk Phos) 93 39-136 [facility] CenterJdjwperUFCQNKVVI2202-42-45 11:43:00 Test Item Value Reference Range Interpretation Comments Bili Total (test code = Bili Total) 0.3 0.2-1.3 [facility] KlebergVtaukbgRCKUTIUKL7709-11-52 11:43:00 Test Item Value Reference Range Interpretation Comments AGAP (test code = AGAP) 10.5 10.0-20.0 [facility] CenterVjwhdxpMBZGJANRZ0018-48-13 11:43:00 Test Item Value Reference Range Interpretation Comments B/C Ratio (test code = B/C Ratio) 21 1 6-25 [facility] CenterXmgkxlaVACLCFPNN5227-78-59 11:43:00 Test Item Value Reference Range Interpretation Comments Globulin (test code = Globulin) 3.9 2.7-4.2 [facility] CenterDlmtjilYLWGTOGUS3272-60-21 11:43:00 Test Item Value Reference Range Interpretation Comments A/G Ratio (test code = A/G Ratio) 0.7 1 0.7-1.6 [facility] CenterBjarefoKSLFVKEHJ2237-01-23 11:43:00 Test Item Value Reference Range Interpretation Comments eGFR (test code = eGFR) 107 [facility] DistrictNlzzaehZMFBFXXQFS6115-94-01 11:43:00 Test Item Value Reference Range Interpretation Comments Segs (test code = Segs) 75.4 45.0-75.0 [facility] DistrictIqkzyapPREYPUAQNY9043-16-60 11:43:00 Test Item Value Reference Range Interpretation Comments Lymphocytes (test code = Lymphocytes) 17.6 20.0-40.0 [facility] DistrictPueibzkHKPJTELGRD9612-51-39 11:43:00 Test Item Value Reference Range Interpretation Comments Monocytes (test code = Monocytes) 5.9 2.0-12.0 [facility] DistrictAiwclwsNZLXXXSLMA4770-81-45 11:43:00 Test Item Value Reference Range Interpretation Comments Eosinophils (test code = 0.5 See_Comment [A utomated message] The Eosinophils) system which ge nerated this result tra nsmitted reference range : <=4.0. The reference r quynh was not used to int erpret this result as normal/abnormal . [facility] DistrictUjnzjwxFCYFQJERXG6661-24-28 11:43:00 Test Item Value Reference Range Interpretation Comments Basophils (test code = 0.6 See_Comment [Aut omated message] The Basophils) system which ge nerated this result tra nsmitted reference range : <=1.0. The reference r quynh was not used to int erpret this result as normal/abnormal . [facility] DistrictZmxizztXOXIYZGPAU3494-02-86 11:43:00 Test Item Value Reference Range Interpretation Comments Neutrophils # (test code = Neutrophils 8.1 1.5-8.1 #) [facility] DistrictItrdfbaCZQLHIDRPW0813-07-90 11:43:00 Test Item Value Reference Range Interpretation Comments Lymphocytes # (test code = Lymphocytes 1.9 1.0-5.5 #) [place] 495052-10-26 11:43:00 Test Item Value Reference Range Interpretation Comments Monocytes # (test code 0.6 See_Comment [Aut omated message] The = Monocytes #) system which generated this result tra nsmitted reference range : <=0.8. The reference r quynh was not used to int erpret this result as normal/abnormal . [place] 495052-10-26 11:43:00 Test Item Value Reference Range Interpretation Comments Basophils # (test code 0.1 See_Comment [Aut omated message] The = Basophils #) system which generated this result tra nsmitted reference range : <=0.2. The reference r quynh was not used to int erpret this result as normal/abnormal . [place] 495052-10-26 11:43:00 Test Item Value Reference Range Interpretation Comments Microcyte (test code = 1+ *ABN*(04/24/22 Microcyte) 6:43 AM) [place] [address]-10-26 11:43:00 Test Item Value Reference Range Interpretation Comments WBC (test code = WBC) 10.8 3.7-10.4 [place] [address]-10-26 11:43:00 Test Item Value Reference Range Interpretation Comments RBC (test code = RBC) 3.62 4.20-5.40 [place] 495052-10-26 11:43:00 Test Item Value Reference Range Interpretation Comments Hgb (test code = Hgb) 9.7 12.0-16.0 [place] [address]-10-26 11:43:00 Test Item Value Reference Range Interpretation Comments Hct (test code = Hct) 28.6 36.0-48.0 [place] [address]-10-26 11:43:00 Test Item Value Reference Range Interpretation Comments MCV (test code = MCV) 78.9 80.0-98.0 [place] [address]-10-26 11:43:00 Test Item Value Reference Range Interpretation Comments MCH (test code = MCH) 26.9 pg 27.0-31.0 [facility] DistrictIoycxmmKMPZYCSZTL4685-38-92 11:43:00 Test Item Value Reference Range Interpretation Comments MCHC (test code = MCHC) 34.1 32.0-36.0 [facility] DistrictBauovjmRICDHWRGBC2317-02-33 11:43:00 Test Item Value Reference Range Interpretation Comments RDW (test code = RDW) 16.3 11.5-14.5 [facility] DistrictOheeusiFHKIEXSCOR6357-18-87 11:43:00 Test Item Value Reference Range Interpretation Comments Platelet (test code = Platelet) 242 133-450 [facility] DistrictSavfwfsQUGWINFEMU8879-42-99 11:43:00 Test Item Value Reference Range Interpretation Comments MPV (test code = MPV) 8.7 7.4-10.4 [facility] CenterLfahybtSHYNOQWKQ4725-24-94 11:43:00 Test Item Value Reference Range Interpretation Comments Glucose Lvl (test code = Glucose Lvl) 93 70-99 [facility] CenterLmafsccVEMLANAZT3781-49-11 11:43:00 Test Item Value Reference Range Interpretation Comments BUN (test code = BUN) 13 - [facility] CenterSynsgcnYNHQZHAHL7765-44-69 11:43:00 Test Item Value Reference Range Interpretation Comments Creatinine Lvl (test code = Creatinine 0.62 0.50-1.40 Lvl) [facility] CenterXrgzwudOFEHUVVCK7841-21-31 11:43:00 Test Item Value Reference Range Interpretation Comments Sodium Lvl (test code = Sodium Lvl) 142 135-145 [facility] CenterNsnnbzyGQAPOWNOR9012-31-79 11:43:00 Test Item Value Reference Range Interpretation Comments Potassium Lvl (test code = Potassium 3.5 3.5-5.1 Lvl) [facility] CenterNiuamuxOZCLQQNMJ5717-99-39 11:43:00 Test Item Value Reference Range Interpretation Comments Chloride Lvl (test code = Chloride Lvl) 109 95-109 [facility] CenterIczvqjsMFPWPZLYK5593-21-26 11:43:00 Test Item Value Reference Range Interpretation Comments CO2 (test code = CO2) - [facility] CenterDynimwcUZYCQPJRX5153-31-67 11:43:00 Test Item Value Reference Range Interpretation Comments Calcium Lvl (test code = Calcium Lvl) 8.9 8.5-10.5 [facility] CenterLrweugyAYMUNLYHV9307-68-57 11:43:00 Test Item Value Reference Range Interpretation Comments Total Protein (test code = Total 6.5 6.4-8.4 Protein) [facility] CenterWjtyikkDEXTGFRZS9424-13-83 11:43:00 Test Item Value Reference Range Interpretation Comments Albumin Lvl (test code = Albumin Lvl) 2.6 3.5-5.0 [facility] CenterZgifbfcWXQMGBBYX7509-86-08 11:43:00 Test Item Value Reference Range Interpretation Comments ALT (test code = ALT) 16 See_Comment [Auto mated message] The system which ge nerated this result transmit fabiano reference range : <=65. The reference range was not used to interpr et this result as aleks l/abnormal. [facility] CenterMcqfgqpSVFMUZGBZ6917-66-01 11:43:00 Test Item Value Reference Range Interpretation Comments AST (test code = AST) 8 See_Comment [Auto mated message] The system which ge nerated this result transmit fabiano reference range : <=37. The reference range was not used to interpr et this result as aleks l/abnormal. [facility] CenterHlkrwpuWRWMQTWBR5191-36-32 11:43:00 Test Item Value Reference Range Interpretation Comments Alk Phos (test code = Alk Phos) 93 39-136 [facility] CenterDwsaqhyCDGTRJDYM3109-30-66 11:43:00 Test Item Value Reference Range Interpretation Comments Bili Total (test code = Bili Total) 0.3 0.2-1.3 [facility] CenterEhlaifvYKRZDZTDQ0603-33-69 11:43:00 Test Item Value Reference Range Interpretation Comments AGAP (test code = AGAP) 10.5 10.0-20.0 [facility] CenterLourexxIBUMXAVHR9779-54-02 11:43:00 Test Item Value Reference Range Interpretation Comments Glucose Lvl (test code = Glucose Lvl) 93 70-99 [facility] CenterFhcaqxeCJHKHESZE2429-80-92 11:43:00 Test Item Value Reference Range Interpretation Comments BUN (test code = BUN) 13 7-22 [facility] CenterBdebseaMZQTOWELW3244-42-64 11:43:00 Test Item Value Reference Range Interpretation Comments Creatinine Lvl (test code = Creatinine 0.62 0.50-1.40 Lvl) [facility] CenterCvibchpMPMURYOVT7113-72-39 11:43:00 Test Item Value Reference Range Interpretation Comments B/C Ratio (test code = B/C Ratio) 21 1 6-25 [facility] CenterDxyvbukJHTYYOXOB3346-29-82 11:43:00 Test Item Value Reference Range Interpretation Comments Sodium Lvl (test code = Sodium Lvl) 142 135-145 [facility] CenterSwqsdvtLHVHOODWG6925-58-47 11:43:00 Test Item Value Reference Range Interpretation Comments Potassium Lvl (test code = Potassium 3.5 3.5-5.1 Lvl) [facility] CenterHhkewhnFCAOZAJNS3299-14-10 11:43:00 Test Item Value Reference Range Interpretation Comments Chloride Lvl (test code = Chloride Lvl) 109 95-109 [facility] CenterCbghkfhFEHYVVKLM2292-95-68 11:43:00 Test Item Value Reference Range Interpretation Comments CO2 (test code = CO2) 24-32 [facility] CenterBqpyratHLJJHNCKD5716-11-95 11:43:00 Test Item Value Reference Range Interpretation Comments Calcium Lvl (test code = Calcium Lvl) 8.9 8.5-10.5 [facility] CenterEhigtsrTACSGTNFA7163-96-91 11:43:00 Test Item Value Reference Range Interpretation Comments Total Protein (test code = Total 6.5 6.4-8.4 Protein) [facility] CenterVdqyoriCTQWLMVLZ1003-09-18 11:43:00 Test Item Value Reference Range Interpretation Comments Albumin Lvl (test code = Albumin Lvl) 2.6 3.5-5.0 [facility] CenterQbrrahmETIUQMWJP0482-45-29 11:43:00 Test Item Value Reference Range Interpretation Comments ALT (test code = ALT) 16 See_Comment [Auto mated message] The system which ge nerated this result transmit fabiano reference range : <=65. The reference range was not used to interpr et this result as aleks l/abnormal. [facility] CenterGlxijohAJBOAYUGT1049-83-38 11:43:00 Test Item Value Reference Range Interpretation Comments AST (test code = AST) 8 See_Comment [Auto mated message] The system which ge nerated this result transmit fabiano reference range : <=37. The reference range was not used to interpr et this result as aleks l/abnormal. [facility] CenterYcnczjrSAXDNCRMY7299-21-77 11:43:00 Test Item Value Reference Range Interpretation Comments Alk Phos (test code = Alk Phos) 93 39-136 [facility] CenterZdaklwlQTTFZJBFI5884-80-09 11:43:00 Test Item Value Reference Range Interpretation Comments Globulin (test code = Globulin) 3.9 2.7-4.2 [facility] CenterFkbahblGDYLJRKFL6463-29-23 11:43:00 Test Item Value Reference Range Interpretation Comments Bili Total (test code = Bili Total) 0.3 0.2-1.3 [place] 774022-10-26 11:43:00 Test Item Value Reference Range Interpretation Comments AGAP (test code = AGAP) 10.5 10.0-20.0 [facility] CenterEzkvbihVGAZOPQHT5063-62-89 11:43:00 Test Item Value Reference Range Interpretation Comments B/C Ratio (test code = B/C Ratio) 21 1 6-25 [facility] CenterRikktkfAFNABUHCC1561-64-08 11:43:00 Test Item Value Reference Range Interpretation Comments Globulin (test code = Globulin) 3.9 2.7-4.2 [place] 774022-10-26 11:43:00 Test Item Value Reference Range Interpretation Comments A/G Ratio (test code = A/G Ratio) 0.7 1 0.7-1.6 [place] [address]-10-26 11:43:00 Test Item Value Reference Range Interpretation Comments eGFR (test code = eGFR) 107 [facility] DistrictIcjfdvnYKKBALAEAJ7339-28-90 11:43:00 Test Item Value Reference Range Interpretation Comments Segs (test code = Segs) 75.4 45.0-75.0 [facility] DistrictEklzjlpGEKVYJKJUP3106-91-25 11:43:00 Test Item Value Reference Range Interpretation Comments Lymphocytes (test code = Lymphocytes) 17.6 20.0-40.0 [facility] DistrictRhkururRHKNZTHOHF8487-21-80 11:43:00 Test Item Value Reference Range Interpretation Comments Monocytes (test code = Monocytes) 5.9 2.0-12.0 [place] [address]-10-26 11:43:00 Test Item Value Reference Range Interpretation Comments Eosinophils (test code = 0.5 See_Comment [A utomated message] The Eosinophils) system which ge nerated this result tra nsmitted reference range : <=4.0. The reference r quynh was not used to int erpret this result as normal/abnormal . [facility] CenterFglhhsaHSUTPBWEL2602-04-45 11:43:00 Test Item Value Reference Range Interpretation Comments A/G Ratio (test code = A/G Ratio) 0.7 1 0.7-1.6 [place] 495052-10-26 11:43:00 Test Item Value Reference Range Interpretation Comments Basophils (test code = 0.6 See_Comment [Aut omated message] The Basophils) system which ge nerated this result tra nsmitted reference range : <=1.0. The reference r quynh was not used to int erpret this result as normal/abnormal . [facility] DistrictGhgwmuxCYBPDOSXEK6489-73-26 11:43:00 Test Item Value Reference Range Interpretation Comments Neutrophils # (test code = Neutrophils 8.1 1.5-8.1 #) [facility] DistrictRhvgeomWJGJEWUJUV9950-24-09 11:43:00 Test Item Value Reference Range Interpretation Comments Lymphocytes # (test code = Lymphocytes 1.9 1.0-5.5 #) [facility] DistrictDbdnaaoEGPAWZJGYU1845-66-01 11:43:00 Test Item Value Reference Range Interpretation Comments Monocytes # (test code 0.6 See_Comment [Aut omated message] The = Monocytes #) system which generated this result tra nsmitted reference range : <=0.8. The reference r quynh was not used to int erpret this result as normal/abnormal . [facility] DistrictFiicgiwDLRPCSONST1289-27-83 11:43:00 Test Item Value Reference Range Interpretation Comments Basophils # (test code 0.1 See_Comment [Aut omated message] The = Basophils #) system which generated this result tra nsmitted reference range : <=0.2. The reference r quynh was not used to int erpret this result as normal/abnormal . [facility] DistrictUpenqvyJCQVJFDZFQ2395-05-31 11:43:00 Test Item Value Reference Range Interpretation Comments Microcyte (test code = 1+ *ABN*(04/24/22 Microcyte) 6:43 AM) [place] [address]-10-26 11:43:00 Test Item Value Reference Range Interpretation Comments WBC (test code = WBC) 10.8 3.7-10.4 [place] 495052-10-26 11:43:00 Test Item Value Reference Range Interpretation Comments RBC (test code = RBC) 3.62 4.20-5.40 [place] 495052-10-26 11:43:00 Test Item Value Reference Range Interpretation Comments Hgb (test code = Hgb) 9.7 12.0-16.0 [place] 495052-10-26 11:43:00 Test Item Value Reference Range Interpretation Comments Hct (test code = Hct) 28.6 36.0-48.0 [facility]KhjcbmfSQJHZXKCA5934-71-21 11:43:00 Test Item Value Reference Range Interpretation Comments eGFR (test code = eGFR) 107 [facility] DistrictTmkhxxoWTDCHNCZVP0029-33-59 11:43:00 Test Item Value Reference Range Interpretation Comments MCV (test code = MCV) 78.9 80.0-98.0 [place] 495052-10-26 11:43:00 Test Item Value Reference Range Interpretation Comments MCH (test code = MCH) 26.9 pg 27.0-31.0 [facility] DistrictTbwspiyJTRCWZYVTI1464-73-04 11:43:00 Test Item Value Reference Range Interpretation Comments MCHC (test code = MCHC) 34.1 32.0-36.0 [place] 495052-10-26 11:43:00 Test Item Value Reference Range Interpretation Comments RDW (test code = RDW) 16.3 11.5-14.5 [place] 495052-10-26 11:43:00 Test Item Value Reference Range Interpretation Comments Platelet (test code = Platelet) 242 133-450 [facility] DistrictJztzcmeLMJMVUXMPP5460-74-32 11:43:00 Test Item Value Reference Range Interpretation Comments MPV (test code = MPV) 8.7 7.4-10.4 [place] [address]-10-26 11:43:00 Test Item Value Reference Range Interpretation Comments Segs (test code = Segs) 75.4 45.0-75.0 [facility] DistrictEklcxsiORTIYSGHEP5776-42-13 11:43:00 Test Item Value Reference Range Interpretation Comments Lymphocytes (test code = Lymphocytes) 17.6 20.0-40.0 [place] 495052-10-26 11:43:00 Test Item Value Reference Range Interpretation Comments Monocytes (test code = Monocytes) 5.9 2.0-12.0 [place] 495052-10-26 11:43:00 Test Item Value Reference Range Interpretation Comments Eosinophils (test code = 0.5 See_Comment [A utomated message] The Eosinophils) system which ge nerated this result tra nsmitted reference range : <=4.0. The reference r quynh was not used to int erpret this result as normal/abnormal . [place] 495052-10-26 11:43:00 Test Item Value Reference Range Interpretation Comments Basophils (test code = 0.6 See_Comment [Aut omated message] The Basophils) system which ge nerated this result tra nsmitted reference range : <=1.0. The reference r quynh was not used to int erpret this result as normal/abnormal . [place] [address]-10-26 11:43:00 Test Item Value Reference Range Interpretation Comments Neutrophils # (test code = Neutrophils 8.1 1.5-8.1 #) [place] 495052-10-26 11:43:00 Test Item Value Reference Range Interpretation Comments Lymphocytes # (test code = Lymphocytes 1.9 1.0-5.5 #) [place] [address]-10-26 11:43:00 Test Item Value Reference Range Interpretation Comments Monocytes # (test code 0.6 See_Comment [Aut omated message] The = Monocytes #) system which generated this result tra nsmitted reference range : <=0.8. The reference r quynh was not used to int erpret this result as normal/abnormal . [place] [address]-10-26 11:43:00 Test Item Value Reference Range Interpretation Comments Basophils # (test code 0.1 See_Comment [Aut omated message] The = Basophils #) system which generated this result tra nsmitted reference range : <=0.2. The reference r quynh was not used to int erpret this result as normal/abnormal . [place] 495052-10-26 11:43:00 Test Item Value Reference Range Interpretation Comments Microcyte (test code = 1+ *ABN*(04/24/22 Microcyte) 6:43 AM) [place] [address]-10-26 11:43:00 Test Item Value Reference Range Interpretation Comments WBC (test code = WBC) 10.8 3.7-10.4 [place] [address]-10-26 11:43:00 Test Item Value Reference Range Interpretation Comments RBC (test code = RBC) 3.62 4.20-5.40 [place] [address]-10-26 11:43:00 Test Item Value Reference Range Interpretation Comments Hgb (test code = Hgb) 9.7 12.0-16.0 [facility] DistrictLhanovxACWUKKFGIE2688-33-00 11:43:00 Test Item Value Reference Range Interpretation Comments Hct (test code = Hct) 28.6 36.0-48.0 [facility] DistrictTeamjdlZMONBNUKSV8839-20-51 11:43:00 Test Item Value Reference Range Interpretation Comments MCV (test code = MCV) 78.9 80.0-98.0 [facility] DistrictDgrkolwRDNOJMUKLU9715-07-85 11:43:00 Test Item Value Reference Range Interpretation Comments MCH (test code = MCH) 26.9 pg 27.0-31.0 [facility] DistrictGumxmigGNOUYIPZSJ2162-45-13 11:43:00 Test Item Value Reference Range Interpretation Comments MCHC (test code = MCHC) 34.1 32.0-36.0 [facility] DistrictHzvqcxfGAIJPRJDSN9073-62-38 11:43:00 Test Item Value Reference Range Interpretation Comments RDW (test code = RDW) 16.3 11.5-14.5 [facility] DistrictSdseswrIKWJYFDRKH8062-46-92 11:43:00 Test Item Value Reference Range Interpretation Comments Platelet (test code = Platelet) 242 133-450 [facility] DistrictYaxporoYEIZBKKCOX8048-16-59 11:43:00 Test Item Value Reference Range Interpretation Comments MPV (test code = MPV) 8.7 7.4-10.4 [facility] CenterCzpjfywEXYZIDNUM2113-27-19 11:43:00 Test Item Value Reference Range Interpretation Comments Glucose Lvl (test code = Glucose Lvl) 93 70-99 [facility] CenterWralkbdKYFWMUHUK2479-15-76 11:43:00 Test Item Value Reference Range Interpretation Comments BUN (test code = BUN) 13 7-22 [place] 774022-10-26 11:43:00 Test Item Value Reference Range Interpretation Comments Creatinine Lvl (test code = Creatinine 0.62 0.50-1.40 Lvl) [facility] CenterLmfhugoLAPSCJZQM2398-13-96 11:43:00 Test Item Value Reference Range Interpretation Comments Sodium Lvl (test code = Sodium Lvl) 142 135-145 [facility] CenterIfrtznvHFWDWMJXV8483-21-19 11:43:00 Test Item Value Reference Range Interpretation Comments Potassium Lvl (test code = Potassium 3.5 3.5-5.1 Lvl) [facility]DNA[facility]WRM89[facility] 11:43:00 Test Item Value Reference Range Interpretation Comments Chloride Lvl (test code = Chloride Lvl) 109 95-109 [facility]XcyzrxaHYNKRQOBS2687-75-21 11:43:00 Test Item Value Reference Range Interpretation Comments CO2 (test code = CO2) 26 24-32 [facility] CenterXkswcqoOQTCHKXFF5290-86-88 11:43:00 Test Item Value Reference Range Interpretation Comments Calcium Lvl (test code = Calcium Lvl) 8.9 8.5-10.5 [facility]bergEtqnwweVEEAOTUBA8122-98-53 11:43:00 Test Item Value Reference Range Interpretation Comments Total Protein (test code = Total 6.5 6.4-8.4 Protein) [facility] CenterQscncqjUAUUUTSBI3353-02-44 11:43:00 Test Item Value Reference Range Interpretation Comments Albumin Lvl (test code = Albumin Lvl) 2.6 3.5-5.0 [facility]bergLrkyoipJXHDKOAGV9347-18-53 11:43:00 Test Item Value Reference Range Interpretation Comments ALT (test code = ALT) 16 See_Comment [Auto mated message] The system which ge nerated this result transmit fabiano reference range : <=65. The reference range was not used to interpr et this result as aleks l/abnormal. [facility] KlebergItuvibtXREVOGBFM8270-91-46 11:43:00 Test Item Value Reference Range Interpretation Comments AST (test code = AST) 8 See_Comment [Auto mated message] The system which ge nerated this result transmit fabiano reference range : <=37. The reference range was not used to interpr et this result as aleks l/abnormal. [facility] KlebergUtshlxdYYUBYBAPB9459-70-29 11:43:00 Test Item Value Reference Range Interpretation Comments Alk Phos (test code = Alk Phos) 93 39-136 [facility] KlebergRuqhjocIYBPFZYNS0236-98-43 11:43:00 Test Item Value Reference Range Interpretation Comments Bili Total (test code = Bili Total) 0.3 0.2-1.3 [facility] CenterFkefsehPHLZSOLRG8731-27-96 11:43:00 Test Item Value Reference Range Interpretation Comments AGAP (test code = AGAP) 10.5 10.0-20.0 [facility] KlebergBsdbyiaOMDPFBQTO6210-98-14 11:43:00 Test Item Value Reference Range Interpretation Comments B/C Ratio (test code = B/C Ratio) 21 1 6-25 [place] [address]-10-26 11:43:00 Test Item Value Reference Range Interpretation Comments Globulin (test code = Globulin) 3.9 2.7-4.2 [place] 774022-10-26 11:43:00 Test Item Value Reference Range Interpretation Comments A/G Ratio (test code = A/G Ratio) 0.7 1 0.7-1.6 [place] [address]-10-26 11:43:00 Test Item Value Reference Range Interpretation Comments eGFR (test code = eGFR) 107 [place] [address]-10-26 11:43:00 Test Item Value Reference Range Interpretation Comments Segs (test code = Segs) 75.4 45.0-75.0 [place] [address]-10-26 11:43:00 Test Item Value Reference Range Interpretation Comments Lymphocytes (test code = Lymphocytes) 17.6 20.0-40.0 [place] 495052-10-26 11:43:00 Test Item Value Reference Range Interpretation Comments Monocytes (test code = Monocytes) 5.9 2.0-12.0 [place] 495052-10-26 11:43:00 Test Item Value Reference Range Interpretation Comments Eosinophils (test code = 0.5 See_Comment [A utomated message] The Eosinophils) system which nerated this result tra nsmitted reference range : <=4.0. The reference r quynh was not used to int erpret this result as normal/abnormal . [place] 495052-10-26 11:43:00 Test Item Value Reference Range Interpretation Comments Basophils (test code = 0.6 See_Comment [Aut omated message] The Basophils) system which ge nerated this result tra nsmitted reference range : <=1.0. The reference r quynh was not used to int erpret this result as normal/abnormal . [place] 495052-10-26 11:43:00 Test Item Value Reference Range Interpretation Comments Neutrophils # (test code = Neutrophils 8.1 1.5-8.1 #) [place] 495052-10-26 11:43:00 Test Item Value Reference Range Interpretation Comments Lymphocytes # (test code = Lymphocytes 1.9 1.0-5.5 #) [facility] DistrictOsvkrbjURWRULSOVZ9878-39-66 11:43:00 Test Item Value Reference Range Interpretation Comments Monocytes # (test code 0.6 See_Comment [Aut omated message] The = Monocytes #) system which generated this result tra nsmitted reference range : <=0.8. The reference r quynh was not used to int erpret this result as normal/abnormal . [facility] DistrictPlbenesHAGMKDZWBY3231-09-10 11:43:00 Test Item Value Reference Range Interpretation Comments Basophils # (test code 0.1 See_Comment [Aut omated message] The = Basophils #) system which generated this result tra nsmitted reference range : <=0.2. The reference r quynh was not used to int erpret this result as normal/abnormal . [facility] DistrictJcazsfoZUGLHFAJWG8267-38-39 11:43:00 Test Item Value Reference Range Interpretation Comments Microcyte (test code = 1+ *ABN*(04/24/22 Microcyte) 6:43 AM) [facility] DistrictEtivhvsDUPGDRXMVD0923-87-17 11:43:00 Test Item Value Reference Range Interpretation Comments WBC (test code = WBC) 10.8 3.7-10.4 [facility] DistrictWaozthlXMUPNKBIGP4825-44-35 11:43:00 Test Item Value Reference Range Interpretation Comments RBC (test code = RBC) 3.62 4.20-5.40 [facility] DistrictApbjdimYFMSXPRVUS2216-48-19 11:43:00 Test Item Value Reference Range Interpretation Comments Hgb (test code = Hgb) 9.7 12.0-16.0 [facility] DistrictZdbabirZPVRCLVJJB6539-03-52 11:43:00 Test Item Value Reference Range Interpretation Comments Hct (test code = Hct) 28.6 36.0-48.0 [facility] DistrictZeindfwNIXMIPUDCS7748-79-63 11:43:00 Test Item Value Reference Range Interpretation Comments MCV (test code = MCV) 78.9 80.0-98.0 [facility] DistrictSqqxeoxWDDKJHLQAT4269-60-39 11:43:00 Test Item Value Reference Range Interpretation Comments MCH (test code = MCH) 26.9 pg 27.0-31.0 [facility] DistrictEjhxjsxDYSHPRUXFK7332-43-78 11:43:00 Test Item Value Reference Range Interpretation Comments MCHC (test code = MCHC) 34.1 32.0-36.0 [facility] DistrictNvjxdhpEUTBOZNJNS1623-01-04 11:43:00 Test Item Value Reference Range Interpretation Comments RDW (test code = RDW) 16.3 11.5-14.5 [place] 495052-10-26 11:43:00 Test Item Value Reference Range Interpretation Comments Platelet (test code = Platelet) 242 133-450 [place] 495052-10-26 11:43:00 Test Item Value Reference Range Interpretation Comments MPV (test code = MPV) 8.7 7.4-10.4 [facility] CenterKuuiwvdCSDMGXWNA2297-10-59 11:43:00 Test Item Value Reference Range Interpretation Comments Glucose Lvl (test code = Glucose Lvl) 93 70-99 [facility] CenterOqjyoyoJEUOGAWCK5871-03-86 11:43:00 Test Item Value Reference Range Interpretation Comments BUN (test code = BUN) 13 7-22 [facility] CenterKhltzchDOHKIAGPL8977-52-58 11:43:00 Test Item Value Reference Range Interpretation Comments Creatinine Lvl (test code = Creatinine 0.62 0.50-1.40 Lvl) [facility] CenterFbdpcotRNXHQXFXC6785-82-96 11:43:00 Test Item Value Reference Range Interpretation Comments Sodium Lvl (test code = Sodium Lvl) 142 135-145 [facility] CenterIxbcxqdQWMECYTVK6235-84-29 11:43:00 Test Item Value Reference Range Interpretation Comments Potassium Lvl (test code = Potassium 3.5 3.5-5.1 Lvl) [facility] CenterZsrzoooPHPRVBCVF8970-21-23 11:43:00 Test Item Value Reference Range Interpretation Comments Chloride Lvl (test code = Chloride Lvl) 109 95-109 [facility] CenterIgoqftvBISOHOBSS9964-06-70 11:43:00 Test Item Value Reference Range Interpretation Comments CO2 (test code = CO2) 24-32 [facility] CenterRtficmeMCWOFLRDD3064-15-17 11:43:00 Test Item Value Reference Range Interpretation Comments Calcium Lvl (test code = Calcium Lvl) 8.9 8.5-10.5 [facility] CenterTnjedxkQSMQPLDGH5197-59-05 11:43:00 Test Item Value Reference Range Interpretation Comments Total Protein (test code = Total 6.5 6.4-8.4 Protein) [facility] CenterDteelwcMEPDMIDWH0796-70-71 11:43:00 Test Item Value Reference Range Interpretation Comments Albumin Lvl (test code = Albumin Lvl) 2.6 3.5-5.0 [facility]bergUgpswqrMQXGIHXAU1384-78-86 11:43:00 Test Item Value Reference Range Interpretation Comments ALT (test code = ALT) 16 See_Comment [Auto mated message] The system which ge nerated this result transmit fabiano reference range : <=65. The reference range was not used to interpr et this result as aleks l/abnormal. [facility]bergDralupdRFHBZLHZU5306-91-99 11:43:00 Test Item Value Reference Range Interpretation Comments Glucose Lvl (test code = Glucose Lvl) 93 70-99 [facility]bergIgefhtmKYORBOGPW4058-15-41 11:43:00 Test Item Value Reference Range Interpretation Comments BUN (test code = BUN) 13 7-22 [facility]bergOkwoqxtVLBSCHHAE1849-21-59 11:43:00 Test Item Value Reference Range Interpretation Comments Creatinine Lvl (test code = Creatinine 0.62 0.50-1.40 Lvl) [facility]bergTtycxqxYYDDLITZX7005-03-05 11:43:00 Test Item Value Reference Range Interpretation Comments Sodium Lvl (test code = Sodium Lvl) 142 135-145 [facility] KlebergCupcplkFOCQSPEFD8353-24-88 11:43:00 Test Item Value Reference Range Interpretation Comments AST (test code = AST) 8 See_Comment [Auto mated message] The system which ge nerated this result transmit fabiano reference range : <=37. The reference range was not used to interpr et this result as aleks l/abnormal. [facility]bergToxwjpqHPACQSPOC3834-12-54 11:43:00 Test Item Value Reference Range Interpretation Comments Potassium Lvl (test code = Potassium 3.5 3.5-5.1 Lvl) [facility]bergQtbgzfnVGVDDNFWI1048-66-46 11:43:00 Test Item Value Reference Range Interpretation Comments Chloride Lvl (test code = Chloride Lvl) 109 95-109 [facility] KlebergTyniquyNQCZYBOOQ7381-10-92 11:43:00 Test Item Value Reference Range Interpretation Comments CO2 (test code = CO2) [facility] CenterQdhwxzlLNOABVNXP1708-36-57 11:43:00 Test Item Value Reference Range Interpretation Comments Calcium Lvl (test code = Calcium Lvl) 8.9 8.5-10.5 [facility]bergQhliptuWNNLMZJED9932-47-98 11:43:00 Test Item Value Reference Range Interpretation Comments Total Protein (test code = Total 6.5 6.4-8.4 Protein) [facility]bergXgiuuvdRSSHOPYHZ0181-40-48 11:43:00 Test Item Value Reference Range Interpretation Comments Albumin Lvl (test code = Albumin Lvl) 2.6 3.5-5.0 [facility] KlebergLkczlznSIZOBCNTT2758-90-57 11:43:00 Test Item Value Reference Range Interpretation Comments ALT (test code = ALT) 16 See_Comment [Auto mated message] The system which ge nerated this result transmit fabiano reference range : <=65. The reference range was not used to interpr et this result as aleks l/abnormal. [facility]bergNosxpidAZQELAKWE6341-19-16 11:43:00 Test Item Value Reference Range Interpretation Comments AST (test code = AST) 8 See_Comment [Auto mated message] The system which ge nerated this result transmit fabiano reference range : <=37. The reference range was not used to interpr et this result as aleks l/abnormal. [facility] HtkunrrKGOIOENFL2881-15-53 11:43:00 Test Item Value Reference Range Interpretation Comments Alk Phos (test code = Alk Phos) 93 39-136 [facility]bergXpqsmogVUQBOXIIW9457-70-00 11:43:00 Test Item Value Reference Range Interpretation Comments Bili Total (test code = Bili Total) 0.3 0.2-1.3 [facility] KlebergTsfnrvxTIWRLZHLF3134-34-04 11:43:00 Test Item Value Reference Range Interpretation Comments Alk Phos (test code = Alk Phos) 93 39-136 [facility] KlebergXvumgiiTYSHIVEYZ3429-57-12 11:43:00 Test Item Value Reference Range Interpretation Comments AGAP (test code = AGAP) 10.5 10.0-20.0 [facility]bergTeoydgfWVQMCZVCK1145-70-55 11:43:00 Test Item Value Reference Range Interpretation Comments B/C Ratio (test code = B/C Ratio) 21 1 6-25 [facility] KlebergUymixogQUBALDOAN4657-52-32 11:43:00 Test Item Value Reference Range Interpretation Comments Globulin (test code = Globulin) 3.9 2.7-4.2 [facility]bergIgrepyvYIXLHPTZE5657-51-56 11:43:00 Test Item Value Reference Range Interpretation Comments A/G Ratio (test code = A/G Ratio) 0.7 1 0.7-1.6 [place] [address]-10-26 11:43:00 Test Item Value Reference Range Interpretation Comments eGFR (test code = eGFR) 107 [place] 495052-10-26 11:43:00 Test Item Value Reference Range Interpretation Comments Segs (test code = Segs) 75.4 45.0-75.0 [place] [address]-10-26 11:43:00 Test Item Value Reference Range Interpretation Comments Lymphocytes (test code = Lymphocytes) 17.6 20.0-40.0 [place] [address]-10-26 11:43:00 Test Item Value Reference Range Interpretation Comments Monocytes (test code = Monocytes) 5.9 2.0-12.0 [place] [address]-10-26 11:43:00 Test Item Value Reference Range Interpretation Comments Eosinophils (test code = 0.5 See_Comment [A utomated message] The Eosinophils) system which ge nerated this result tra nsmitted reference range : <=4.0. The reference r quynh was not used to int erpret this result as normal/abnormal . [place] 495052-10-26 11:43:00 Test Item Value Reference Range Interpretation Comments Basophils (test code = 0.6 See_Comment [Aut omated message] The Basophils) system which ge nerated this result tra nsmitted reference range : <=1.0. The reference r quynh was not used to int erpret this result as normal/abnormal . [place] 774022-10-26 11:43:00 Test Item Value Reference Range Interpretation Comments Bili Total (test code = Bili Total) 0.3 0.2-1.3 [place] 495052-10-26 11:43:00 Test Item Value Reference Range Interpretation Comments Neutrophils # (test code = Neutrophils 8.1 1.5-8.1 #) [place] [address]-10-26 11:43:00 Test Item Value Reference Range Interpretation Comments Lymphocytes # (test code = Lymphocytes 1.9 1.0-5.5 #) [place] 495052-10-26 11:43:00 Test Item Value Reference Range Interpretation Comments Monocytes # (test code 0.6 See_Comment [Aut omated message] The = Monocytes #) system which generated this result tra nsmitted reference range : <=0.8. The reference r quynh was not used to int erpret this result as normal/abnormal . [facility] DistrictWepyvhnLLVIBOZHPE8706-17-31 11:43:00 Test Item Value Reference Range Interpretation Comments Basophils # (test code 0.1 See_Comment [Aut omated message] The = Basophils #) system which generated this result tra nsmitted reference range : <=0.2. The reference r quynh was not used to int erpret this result as normal/abnormal . [facility] DistrictJhvyqveUNZIEZZQUE8744-56-52 11:43:00 Test Item Value Reference Range Interpretation Comments Microcyte (test code = 1+ *ABN*(04/24/22 Microcyte) 6:43 AM) [place] 495052-10-26 11:43:00 Test Item Value Reference Range Interpretation Comments WBC (test code = WBC) 10.8 3.7-10.4 [place] 495052-10-26 11:43:00 Test Item Value Reference Range Interpretation Comments RBC (test code = RBC) 3.62 4.20-5.40 [facility] DistrictTjoyqyeITDSJRSHWM2453-63-16 11:43:00 Test Item Value Reference Range Interpretation Comments Hgb (test code = Hgb) 9.7 12.0-16.0 [facility] DistrictEmyoryvVPGMUFJXNE4849-38-30 11:43:00 Test Item Value Reference Range Interpretation Comments Hct (test code = Hct) 28.6 36.0-48.0 [place] 495052-10-26 11:43:00 Test Item Value Reference Range Interpretation Comments MCV (test code = MCV) 78.9 80.0-98.0 [facility] CenterQjtcdbrLBVQFXVIL7337-76-63 11:43:00 Test Item Value Reference Range Interpretation Comments AGAP (test code = AGAP) 10.5 10.0-20.0 [facility] DistrictDwawhcxHZVFURLSMV1926-83-91 11:43:00 Test Item Value Reference Range Interpretation Comments MCH (test code = MCH) 26.9 pg 27.0-31.0 [facility] DistrictMmkrztwVIALZFTKFW2285-81-80 11:43:00 Test Item Value Reference Range Interpretation Comments MCHC (test code = MCHC) 34.1 32.0-36.0 [facility] DistrictNxjcoewVZGIUFKELG7062-38-17 11:43:00 Test Item Value Reference Range Interpretation Comments RDW (test code = RDW) 16.3 11.5-14.5 [facility] DistrictIlwtmesOFYBSQFIVG5002-38-60 11:43:00 Test Item Value Reference Range Interpretation Comments Platelet (test code = Platelet) 242 133-450 [facility] DistrictAjunejpVFUOASRHRK9146-87-11 11:43:00 Test Item Value Reference Range Interpretation Comments MPV (test code = MPV) 8.7 7.4-10.4 [facility] CenterIsmlqghTVMZFMALY6739-25-74 11:43:00 Test Item Value Reference Range Interpretation Comments B/C Ratio (test code = B/C Ratio) 21 1 6-25 [place] 774022-10-26 11:43:00 Test Item Value Reference Range Interpretation Comments Globulin (test code = Globulin) 3.9 2.7-4.2 [facility] CenterZxozkzhZTJKYLXYA1426-53-98 11:43:00 Test Item Value Reference Range Interpretation Comments A/G Ratio (test code = A/G Ratio) 0.7 1 0.7-1.6 [place] [address]-10-26 11:43:00 Test Item Value Reference Range Interpretation Comments eGFR (test code = eGFR) 107 [facility] DistrictOmqsiqzYVEOKFDKXS8683-88-89 11:43:00 Test Item Value Reference Range Interpretation Comments Segs (test code = Segs) 75.4 45.0-75.0 [place] 495052-10-26 11:43:00 Test Item Value Reference Range Interpretation Comments Lymphocytes (test code = Lymphocytes) 17.6 20.0-40.0 [place] 495052-10-26 11:43:00 Test Item Value Reference Range Interpretation Comments Monocytes (test code = Monocytes) 5.9 2.0-12.0 [place] [address]-10-26 11:43:00 Test Item Value Reference Range Interpretation Comments Eosinophils (test code = 0.5 See_Comment [A utomated message] The Eosinophils) system which ge nerated this result tra nsmitted reference range : <=4.0. The reference r quynh was not used to int erpret this result as normal/abnormal . [facility] DistrictGowqzdkCFGIIRQCNE4262-43-02 11:43:00 Test Item Value Reference Range Interpretation Comments Basophils (test code = 0.6 See_Comment [Aut omated message] The Basophils) system which ge nerated this result tra nsmitted reference range : <=1.0. The reference r quynh was not used to int erpret this result as normal/abnormal . [facility] DistrictMhyeiliRQURBKPYUM2604-62-71 11:43:00 Test Item Value Reference Range Interpretation Comments Neutrophils # (test code = Neutrophils 8.1 1.5-8.1 #) [facility] DistrictVlxdpksQHIYMBIHFV6901-56-41 11:43:00 Test Item Value Reference Range Interpretation Comments Lymphocytes # (test code = Lymphocytes 1.9 1.0-5.5 #) [place] 495052-10-26 11:43:00 Test Item Value Reference Range Interpretation Comments Monocytes # (test code 0.6 See_Comment [Aut omated message] The = Monocytes #) system which generated this result tra nsmitted reference range : <=0.8. The reference r quynh was not used to int erpret this result as normal/abnormal . [place] 495052-10-26 11:43:00 Test Item Value Reference Range Interpretation Comments Basophils # (test code 0.1 See_Comment [Aut omated message] The = Basophils #) system which generated this result tra nsmitted reference range : <=0.2. The reference r quynh was not used to int erpret this result as normal/abnormal . [facility] DistrictGpjvkqzKIGHWPWPQO0172-65-94 11:43:00 Test Item Value Reference Range Interpretation Comments Microcyte (test code = 1+ *ABN*(04/24/22 Microcyte) 6:43 AM) [place] [address]-10-26 11:43:00 Test Item Value Reference Range Interpretation Comments WBC (test code = WBC) 10.8 3.7-10.4 [place] 495052-10-26 11:43:00 Test Item Value Reference Range Interpretation Comments RBC (test code = RBC) 3.62 4.20-5.40 [place] 495052-10-26 11:43:00 Test Item Value Reference Range Interpretation Comments Hgb (test code = Hgb) 9.7 12.0-16.0 [place] [address]-10-26 11:43:00 Test Item Value Reference Range Interpretation Comments Hct (test code = Hct) 28.6 36.0-48.0 [facility] DistrictSjktuyyHEONLPJHBM8339-88-26 11:43:00 Test Item Value Reference Range Interpretation Comments MCV (test code = MCV) 78.9 80.0-98.0 [facility] DistrictRoelmhxRDFANTSXAS8509-58-18 11:43:00 Test Item Value Reference Range Interpretation Comments MCH (test code = MCH) 26.9 pg 27.0-31.0 [facility] DistrictCfnhuukPKLCMURIAP6004-73-41 11:43:00 Test Item Value Reference Range Interpretation Comments MCHC (test code = MCHC) 34.1 32.0-36.0 [facility] DistrictLmurktdDQZVELFTJV7475-47-29 11:43:00 Test Item Value Reference Range Interpretation Comments RDW (test code = RDW) 16.3 11.5-14.5 [facility] DistrictYykuzgoNOXDKVPKKQ1931-95-76 11:43:00 Test Item Value Reference Range Interpretation Comments Platelet (test code = Platelet) 242 133-450 [facility] CenterJhzanxaKIUDIDUEU1224-08-00 11:43:00 Test Item Value Reference Range Interpretation Comments Glucose Lvl (test code = Glucose Lvl) 93 70-99 [facility] CenterImznqogEVHYIHUGK1192-20-20 11:43:00 Test Item Value Reference Range Interpretation Comments BUN (test code = BUN) 13 7-22 [facility] CenterAggftfsPZXQHWDDG0546-59-23 11:43:00 Test Item Value Reference Range Interpretation Comments Creatinine Lvl (test code = Creatinine 0.62 0.50-1.40 Lvl) [facility] DistrictVmwtgpqQKJZMKOMAI2162-82-61 11:43:00 Test Item Value Reference Range Interpretation Comments MPV (test code = MPV) 8.7 7.4-10.4 [facility] CenterSewibcfJDBIOMJXR0843-03-01 11:43:00 Test Item Value Reference Range Interpretation Comments Sodium Lvl (test code = Sodium Lvl) 142 135-145 [facility] CenterFyadlwcIYNFZHSBY5407-16-40 11:43:00 Test Item Value Reference Range Interpretation Comments Potassium Lvl (test code = Potassium 3.5 3.5-5.1 Lvl) [facility] CenterWxhidigUQRMLKGSR5161-43-39 11:43:00 Test Item Value Reference Range Interpretation Comments Chloride Lvl (test code = Chloride Lvl) 109 95-109 [facility] CenterSndsceoPDYKWKZCJ7360-60-58 11:43:00 Test Item Value Reference Range Interpretation Comments CO2 (test code = CO2) 26 24-32 [facility] HovdxynAWBJJZIXM8833-57-22 11:43:00 Test Item Value Reference Range Interpretation Comments Calcium Lvl (test code = Calcium Lvl) 8.9 8.5-10.5 [facility]bergBizgjnlTGZXMQEGF9089-02-81 11:43:00 Test Item Value Reference Range Interpretation Comments Total Protein (test code = Total 6.5 6.4-8.4 Protein) [facility]bergErjcbocCPDFQIVFI8800-96-38 11:43:00 Test Item Value Reference Range Interpretation Comments Albumin Lvl (test code = Albumin Lvl) 2.6 3.5-5.0 [facility] BedyptaMUXYMPQSD6393-48-93 11:43:00 Test Item Value Reference Range Interpretation Comments ALT (test code = ALT) 16 See_Comment [Auto mated message] The system which ge nerated this result transmit fabiano reference range : <=65. The reference range was not used to interpr et this result as aleks l/abnormal. [facility] KlebergChxykvrMYWVGNEBJ0754-55-34 11:43:00 Test Item Value Reference Range Interpretation Comments AST (test code = AST) 8 See_Comment [Auto mated message] The system which ge nerated this result transmit fabiano reference range : <=37. The reference range was not used to interpr et this result as aleks l/abnormal. [facility]bergTipjwwpZFKAUNEPS5576-92-19 11:43:00 Test Item Value Reference Range Interpretation Comments Alk Phos (test code = Alk Phos) 93 39-136 [facility] KlebergGrpubfiWPYHXPNKR9258-92-58 11:43:00 Test Item Value Reference Range Interpretation Comments Bili Total (test code = Bili Total) 0.3 0.2-1.3 [facility] ZegxahmVUATOIQHC4963-29-04 11:43:00 Test Item Value Reference Range Interpretation Comments AGAP (test code = AGAP) 10.5 10.0-20.0 [facility] KlebergLiemxjvQDXQZEGVE6016-30-80 11:43:00 Test Item Value Reference Range Interpretation Comments B/C Ratio (test code = B/C Ratio) 21 1 6-25 [facility] KlebergVrxpeqlZEDFHLKNW0426-83-20 11:43:00 Test Item Value Reference Range Interpretation Comments Globulin (test code = Globulin) 3.9 2.7-4.2 [place] [address]-10-26 11:43:00 Test Item Value Reference Range Interpretation Comments A/G Ratio (test code = A/G Ratio) 0.7 1 0.7-1.6 [place] [address]-10-26 11:43:00 Test Item Value Reference Range Interpretation Comments eGFR (test code = eGFR) 107 [facility] DistrictWgdixcvHRJJUGFPGL2277-65-30 11:43:00 Test Item Value Reference Range Interpretation Comments Segs (test code = Segs) 75.4 45.0-75.0 [place] [address]-10-26 11:43:00 Test Item Value Reference Range Interpretation Comments Lymphocytes (test code = Lymphocytes) 17.6 20.0-40.0 [place] [address]-10-26 11:43:00 Test Item Value Reference Range Interpretation Comments Monocytes (test code = Monocytes) 5.9 2.0-12.0 [place] 495052-10-26 11:43:00 Test Item Value Reference Range Interpretation Comments Eosinophils (test code = 0.5 See_Comment [A utomated message] The Eosinophils) system which ge nerated this result tra nsmitted reference range : <=4.0. The reference r quynh was not used to int erpret this result as normal/abnormal . [place] 495052-10-26 11:43:00 Test Item Value Reference Range Interpretation Comments Basophils (test code = 0.6 See_Comment [Aut omated message] The Basophils) system which ge nerated this result tra nsmitted reference range : <=1.0. The reference r qyunh was not used to int erpret this result as normal/abnormal . [place] 495052-10-26 11:43:00 Test Item Value Reference Range Interpretation Comments Neutrophils # (test code = Neutrophils 8.1 1.5-8.1 #) [place] [address]-10-26 11:43:00 Test Item Value Reference Range Interpretation Comments Lymphocytes # (test code = Lymphocytes 1.9 1.0-5.5 #) [place] 495052-10-26 11:43:00 Test Item Value Reference Range Interpretation Comments Monocytes # (test code 0.6 See_Comment [Aut omated message] The = Monocytes #) system which generated this result tra nsmitted reference range : <=0.8. The reference r quynh was not used to int erpret this result as normal/abnormal . [facility] DistrictTcflyhrZZWQNHBQJW3840-36-04 11:43:00 Test Item Value Reference Range Interpretation Comments Basophils # (test code 0.1 See_Comment [Aut omated message] The = Basophils #) system which generated this result tra nsmitted reference range : <=0.2. The reference r quynh was not used to int erpret this result as normal/abnormal . [facility] DistrictBzsfgomHLZHEJHPFG5690-31-01 11:43:00 Test Item Value Reference Range Interpretation Comments Microcyte (test code = 1+ *ABN*(04/24/22 Microcyte) 6:43 AM) [place] 495052-10-26 11:43:00 Test Item Value Reference Range Interpretation Comments WBC (test code = WBC) 10.8 3.7-10.4 [place] 495052-10-26 11:43:00 Test Item Value Reference Range Interpretation Comments RBC (test code = RBC) 3.62 4.20-5.40 [place] 495052-10-26 11:43:00 Test Item Value Reference Range Interpretation Comments Hgb (test code = Hgb) 9.7 12.0-16.0 [place] 495052-10-26 11:43:00 Test Item Value Reference Range Interpretation Comments Hct (test code = Hct) 28.6 36.0-48.0 [place] 495052-10-26 11:43:00 Test Item Value Reference Range Interpretation Comments MCV (test code = MCV) 78.9 80.0-98.0 [facility] DistrictRcxdgpyUTVZWWLMID2868-44-66 11:43:00 Test Item Value Reference Range Interpretation Comments MCH (test code = MCH) 26.9 pg 27.0-31.0 [place] 495052-10-26 11:43:00 Test Item Value Reference Range Interpretation Comments MCHC (test code = MCHC) 34.1 32.0-36.0 [place] 495052-10-26 11:43:00 Test Item Value Reference Range Interpretation Comments RDW (test code = RDW) 16.3 11.5-14.5 [facility] DistrictTkufvpqUPNGKCJWKB5694-00-91 11:43:00 Test Item Value Reference Range Interpretation Comments Platelet (test code = Platelet) 242 133-450 [facility]DkflhdgAXFTDCBXCE1465-57-99 11:43:00 Test Item Value Reference Range Interpretation Comments MPV (test code = MPV) 8.7 7.4-10.4 [facility] CenterZgbvttmEJESCLUMW7024-69-39 11:43:00 Test Item Value Reference Range Interpretation Comments Glucose Lvl (test code = Glucose Lvl) 93 70-99 [facility] CenterPhfociaPSRHRQCHM3999-81-64 11:43:00 Test Item Value Reference Range Interpretation Comments BUN (test code = BUN) 13 7-22 [facility] CenterNrfpfjlLYOTTOJVK7790-89-31 11:43:00 Test Item Value Reference Range Interpretation Comments Creatinine Lvl (test code = Creatinine 0.62 0.50-1.40 Lvl) [facility] CenterRqpfjwqSOCXODGQB5356-77-27 11:43:00 Test Item Value Reference Range Interpretation Comments Sodium Lvl (test code = Sodium Lvl) 142 135-145 [facility] CenterHybulqeTYWNDJVMF4265-13-52 11:43:00 Test Item Value Reference Range Interpretation Comments Potassium Lvl (test code = Potassium 3.5 3.5-5.1 Lvl) [facility] CenterLwlvkzwLFSOYWFUJ3359-42-85 11:43:00 Test Item Value Reference Range Interpretation Comments Chloride Lvl (test code = Chloride Lvl) 109 95-109 [facility] CenterBukgjowWAVOZLLGF3125-53-94 11:43:00 Test Item Value Reference Range Interpretation Comments CO2 (test code = CO2) 26 24-32 [facility] CenterDzavigfDISLDUAUE9534-15-43 11:43:00 Test Item Value Reference Range Interpretation Comments Calcium Lvl (test code = Calcium Lvl) 8.9 8.5-10.5 [facility] CenterSsbuvdfVMCZAYVDL2545-06-29 11:43:00 Test Item Value Reference Range Interpretation Comments Total Protein (test code = Total 6.5 6.4-8.4 Protein) [facility] CenterAlbjwgoCYOMNHHVO4664-55-24 11:43:00 Test Item Value Reference Range Interpretation Comments Albumin Lvl (test code = Albumin Lvl) 2.6 3.5-5.0 [facility] CenterSackzunBWZYZQFPT2092-92-54 11:43:00 Test Item Value Reference Range Interpretation Comments ALT (test code = ALT) 16 See_Comment [Auto mated message] The system which ge nerated this result transmit fabiano reference range : <=65. The reference range was not used to interpr et this result as aleks l/abnormal. [facility] IyuovogOLOUYECPB7689-30-65 11:43:00 Test Item Value Reference Range Interpretation Comments AST (test code = AST) 8 See_Comment [Auto mated message] The system which ge nerated this result transmit fabiano reference range : <=37. The reference range was not used to interpr et this result as aleks l/abnormal. [facility] TcnyjgdBJUUEWBYX1864-72-67 11:43:00 Test Item Value Reference Range Interpretation Comments Alk Phos (test code = Alk Phos) 93 39-136 [facility] KkvgninZHOIBBVUS3804-62-07 11:43:00 Test Item Value Reference Range Interpretation Comments Bili Total (test code = Bili Total) 0.3 0.2-1.3 [facility] AmpxztgHJSSSBZVL9227-43-78 11:43:00 Test Item Value Reference Range Interpretation Comments AGAP (test code = AGAP) 10.5 10.0-20.0 [facility]bergVepjnxjLPUYAEGCO9549-74-64 11:43:00 Test Item Value Reference Range Interpretation Comments B/C Ratio (test code = B/C Ratio) 21 1 6-25 [facility]bergBpxokkfOGSSNFLGJ1045-59-28 11:43:00 Test Item Value Reference Range Interpretation Comments Globulin (test code = Globulin) 3.9 2.7-4.2 [facility] QnltmwyUVMLGVOJK0545-75-11 11:43:00 Test Item Value Reference Range Interpretation Comments A/G Ratio (test code = A/G Ratio) 0.7 1 0.7-1.6 [facility]bergWpfsewkLWBUJSKGV3519-48-52 11:43:00 Test Item Value Reference Range Interpretation Comments eGFR (test code = eGFR) 107 [facility]bergOajnfwtRFEGMMSYXB1939-74-38 11:43:00 Test Item Value Reference Range Interpretation Comments Segs (test code = Segs) 75.4 45.0-75.0 [facility]bergCqlyumeMSVDUICCAC5283-52-72 11:43:00 Test Item Value Reference Range Interpretation Comments Lymphocytes (test code = Lymphocytes) 17.6 20.0-40.0 [facility] YnuaktvCFHHGYQVIK6735-08-02 11:43:00 Test Item Value Reference Range Interpretation Comments Monocytes (test code = Monocytes) 5.9 2.0-12.0 [place] [address]-10-26 11:43:00 Test Item Value Reference Range Interpretation Comments Eosinophils (test code = 0.5 See_Comment [A utomated message] The Eosinophils) system which ge nerated this result tra nsmitted reference range : <=4.0. The reference r quynh was not used to int erpret this result as normal/abnormal . [place] 495052-10-26 11:43:00 Test Item Value Reference Range Interpretation Comments Basophils (test code = 0.6 See_Comment [Aut omated message] The Basophils) system which ge nerated this result tra nsmitted reference range : <=1.0. The reference r quynh was not used to int erpret this result as normal/abnormal . [place] 495052-10-26 11:43:00 Test Item Value Reference Range Interpretation Comments Neutrophils # (test code = Neutrophils 8.1 1.5-8.1 #) [place] 86987-10-26 11:43:00 Test Item Value Reference Range Interpretation Comments Lymphocytes # (test code = Lymphocytes 1.9 1.0-5.5 #) [place] 495052-10-26 11:43:00 Test Item Value Reference Range Interpretation Comments Monocytes # (test code 0.6 See_Comment [Aut omated message] The = Monocytes #) system which generated this result tra nsmitted reference range : <=0.8. The reference r quynh was not used to int erpret this result as normal/abnormal . [place] 86987-10-26 11:43:00 Test Item Value Reference Range Interpretation Comments Basophils # (test code 0.1 See_Comment [Aut omated message] The = Basophils #) system which generated this result tra nsmitted reference range : <=0.2. The reference r quynh was not used to int erpret this result as normal/abnormal . [place] 495052-10-26 11:43:00 Test Item Value Reference Range Interpretation Comments Microcyte (test code = 1+ *ABN*(04/24/22 Microcyte) 6:43 AM) [place] 495052-10-26 11:43:00 Test Item Value Reference Range Interpretation Comments WBC (test code = WBC) 10.8 3.7-10.4 [facility]ODCBGWBOOC0830-43-61 11:43:00 Test Item Value Reference Range Interpretation Comments RBC (test code = RBC) 3.62 4.20-5.40 [facility] DistrictLboykogGVAAAMXOEY6369-30-52 11:43:00 Test Item Value Reference Range Interpretation Comments Hgb (test code = Hgb) 9.7 12.0-16.0 [facility] DistrictQfwvoojENERWJQOKM1879-14-81 11:43:00 Test Item Value Reference Range Interpretation Comments Hct (test code = Hct) 28.6 36.0-48.0 [facility] DistrictOsktbmgQAVBVXPYCX4056-67-94 11:43:00 Test Item Value Reference Range Interpretation Comments MCV (test code = MCV) 78.9 80.0-98.0 [facility] DistrictKeyjkokFYYJXIJZFU7698-91-20 11:43:00 Test Item Value Reference Range Interpretation Comments MCH (test code = MCH) 26.9 pg 27.0-31.0 [facility] DistrictOsjnwcpEDYIWOTUME6568-63-24 11:43:00 Test Item Value Reference Range Interpretation Comments MCHC (test code = MCHC) 34.1 32.0-36.0 [facility] DistrictVfyjpxnMWPVJCCCBQ8253-62-95 11:43:00 Test Item Value Reference Range Interpretation Comments RDW (test code = RDW) 16.3 11.5-14.5 [facility] DistrictSgnjuwnUYIDRGRADL0525-59-45 11:43:00 Test Item Value Reference Range Interpretation Comments Platelet (test code = Platelet) 242 133-450 [facility] DistrictRyvvaaoJHKOJZONIW0051-28-59 11:43:00 Test Item Value Reference Range Interpretation Comments MPV (test code = MPV) 8.7 7.4-10.4 [place] 495052-10-24 10:10:00 Test Item Value Reference Range Interpretation Comments Eosinophils # (test code 0.3 See_Comment [A utomated message] The = Eosinophils #) system whic h generated this result tra nsmitted reference range : <=0.5. The reference r quynh was not used to int erpret this result as normal/abnormal . [facility] DistrictNwpvgyqVVCPMTGYGO9856-10-83 10:10:00 Test Item Value Reference Range Interpretation Comments Eosinophils # (test code 0.3 See_Comment [A utomated message] The = Eosinophils #) system the [facility] generated this result tra nsmitted reference range : <=0.5. The reference r quynh was not used to int erpret this result as normal/abnormal . [place] 495052-10-24 10:10:00 Test Item Value Reference Range Interpretation Comments Eosinophils # (test code 0.3 See_Comment [A utomated message] The = Eosinophils #) system the [facility] generated this result tra nsmitted reference range : <=0.5. The reference r quynh was not used to int erpret this result as normal/abnormal . [place] 495052-10-24 10:10:00 Test Item Value Reference Range Interpretation Comments Eosinophils # (test code 0.3 See_Comment [A utomated message] The = Eosinophils #) system the [facility] generated this result tra nsmitted reference range : <=0.5. The reference r quynh was not used to int erpret this result as normal/abnormal . [place] 495052-10-24 10:10:00 Test Item Value Reference Range Interpretation Comments Eosinophils # (test code 0.3 See_Comment [A utomated message] The = Eosinophils #) system the [facility] generated this result tra nsmitted reference range : <=0.5. The reference r quynh was not used to int erpret this result as normal/abnormal . [place] 495052-10-24 10:10:00 Test Item Value Reference Range Interpretation Comments Eosinophils # (test code 0.3 See_Comment [A utomated message] The = Eosinophils #) system the [facility] generated this result tra nsmitted reference range : <=0.5. The reference r quynh was not used to int erpret this result as normal/abnormal . [place] 495052-10-24 10:10:00 Test Item Value Reference Range Interpretation Comments Eosinophils # (test code 0.3 See_Comment [A utomated message] The = Eosinophils #) system the [facility] generated this result tra nsmitted reference range : <=0.5. The reference r quynh was not used to int erpret this result as normal/abnormal . [place] 495052-10-24 10:10:00 Test Item Value Reference Range Interpretation Comments Eosinophils # (test code 0.3 See_Comment [A utomated message] The = Eosinophils #) system the [facility] generated this result tra nsmitted reference range : <=0.5. The reference r quynh was not used to int erpret this result as normal/abnormal . [place] 495052-10-24 10:10:00 Test Item Value Reference Range Interpretation Comments Eosinophils # (test code 0.3 See_Comment [A utomated message] The = Eosinophils #) system the [facility] generated this result tra nsmitted reference range : <=0.5. The reference r quynh was not used to int erpret this result as normal/abnormal . [place] 495052-10-24 10:10:00 Test Item Value Reference Range Interpretation Comments Eosinophils # (test code 0.3 See_Comment [A utomated message] The = Eosinophils #) system the [facility] generated this result tra nsmitted reference range : <=0.5. The reference r quynh was not used to int erpret this result as normal/abnormal . [place] 495052-10-24 10:10:00 Test Item Value Reference Range Interpretation Comments Eosinophils # (test code 0.3 See_Comment [A utomated message] The = Eosinophils #) system the [facility] generated this result tra nsmitted reference range : <=0.5. The reference r quynh was not used to int erpret this result as normal/abnormal . [place] 495052-10-24 10:10:00 Test Item Value Reference Range Interpretation Comments Eosinophils # (test code 0.3 See_Comment [A utomated message] The = Eosinophils #) system the [facility] generated this result tra nsmitted reference range : <=0.5. The reference r quynh was not used to int erpret this result as normal/abnormal . [place] 495052-10-24 10:10:00 Test Item Value Reference Range Interpretation Comments Eosinophils # (test code 0.3 See_Comment [A utomated message] The = Eosinophils #) system the [facility] generated this result tra nsmitted reference range : <=0.5. The reference r quynh was not used to int erpret this result as normal/abnormal . [place] 495052-10-24 10:10:00 Test Item Value Reference Range Interpretation Comments Eosinophils # (test code 0.3 See_Comment [A utomated message] The = Eosinophils #) system [employer] generated this result tra nsmitted reference range : <=0.5. The reference r quynh was not used to int erpret this result as normal/abnormal . [facility] DistrictNpfoxdeQFFDHQCCPY5877-61-94 10:10:00 Test Item Value Reference Range Interpretation Comments Eosinophils # (test code 0.3 See_Comment [A utomated message] The = Eosinophils #) system [facility] [employer] generated this result tra nsmitted reference range : <=0.5. The reference r quynh was not used to int erpret this result as normal/abnormal . [facility] DistrictKpcamqcFNBECGOEVG6311-01-81 10:10:00 Test Item Value Reference Range Interpretation Comments Eosinophils # (test code 0.3 See_Comment [A utomated message] The = Eosinophils #) system [employer] generated this result tra nsmitted reference range : <=0.5. The reference r quynh was not used to int erpret this result as normal/abnormal . [place] [id number] 21:04:09 Test Item Value Reference Range Interpretation Comments RADRPT (test PROCEDURE: Non-tunneled central code = venous catheter RADRPT) placementProcedural PersonnelAttending physician(s): Dylan Crandall physician(s): NoneResident physician(s): NoneAd[facility]urn[facility] practice provider(s): NonePre-procedure diagnosis: Mediastinal mass, chemotherapy [...] applied.Catheter placed: Triple-lumen central venous catheterCatheter size (Vincentian): 7Catheter length (cm): 20Catheter tip position: 2.5 [...] and agree with the report as written. [facility] EatfwcmXGTUVH5126-78-42 21:04:09 Test Item Value Reference Range Interpretation [...] applied.Catheter placed: Triple-lumen central venous catheterCatheter size (Vincentian): 7Catheter length (cm): 20Catheter tip position: 2.5 [...] and agree with the report as written. [facility] MarshallZismdifCSNZKE3856-86-58 21:04:09 Test Item Value Reference Range Interpretation [...] applied.Catheter placed: Triple-lumen central venous catheterCatheter size (Vincentian): 7Catheter length (cm): 20Catheter tip position: 2.5 [...] and agree with the report as written. [facility] MarshallIahrqaqRHLVBW3153-37-23 21:04:09 Test Item Value Reference Range Interpretation [...] applied.Catheter placed: Triple-lumen central venous catheterCatheter size (Vincentian): 7Catheter length (cm): 20Catheter tip position: 2.5 [...] and agree with the report as written. [facility] MarshallYrcegzlUZAKPG2471-62-24 21:04:09 Test Item Value Reference Range Interpretation [...] applied.Catheter placed: Triple-lumen central venous catheterCatheter size (Vincentian): 7Catheter length (cm): 20Catheter tip position: 2.5 [...] and agree with the report as written. [facility] MarshallVdrwjhoRNEZFV6173-91-97 21:04:09 Test Item Value Reference Range Interpretation Comments RADRPT (test PROCEDURE: Non-tunneled central code = venous catheter RADRPT) placementProcedural PersonnelAttending physician(s): Dylan Crandall physician(s): NoneResident physician(s): None[facility] practice provider(s): NonePre-procedure diagnosis: Mediastinal mass, chemotherapy [...] applied.Catheter placed: Triple-lumen central venous catheterCatheter size (Vincentian): 7Catheter length (cm): 20Catheter tip position: 2.5 [...] and agree with the report as written. [facility] HkawpwvHJWSZP1381-47-78 21:04:09 Test Item Value Reference Range Interpretation [...] applied.Catheter placed: Triple-lumen central venous catheterCatheter size (Vincentian): 7Catheter length (cm): 20Catheter tip position: 2.5 [...] and agree with the report as written. [facility] MarshallPlnhsxzUPOXDD1919-56-90 21:04:09 Test Item Value Reference Range Interpretation [...] applied.Catheter placed: Triple-lumen central venous catheterCatheter size (Vincentian): 7Catheter length (cm): 20Catheter tip position: 2.5 vertebral body units (VBUs) below the marycarmen.Unique Device Identifier: Not availableCatheter flush: Heparinized salineCatheter securement technique: 0-0 silk sutureContrastContrast agent: NoneContrast volume (mL): 0Radiation DoseFluoroscopy time (min): 0.1 Kerma area product (mgy-cm2): 125 Images: 4Additional DetailsAdditional description of procedure: NoneEquipment details: NoneSpecimens removed: NoneEstimated blood loss (mL): Less than 10Standardized report: [id number]_v2Att estationSigner name: Antonio HANY Rocha attest that I was present for the entire procedure. I reviewed the stored images and agree with the report as written. [facility] MarshallInrypocLQTLTB5282-52-40 21:04:09 Test Item Value Reference Range Interpretation Comments RADRPT (test PROCEDURE: Non-tunneled central code = venous catheter RADRPT) placementProcedural PersonnelAttending physician(s): Dylan Crandall physician(s): NoneResident physician(s): NoneAd[facility] practice provider(s): NonePre-procedure diagnosis: Mediastinal mass, chemotherapy [...] applied.Catheter placed: Triple-lumen central venous catheterCatheter size (Vincentian): 7Catheter length (cm): 20Catheter tip position: 2.5 [...] and agree with the report as written. [facility] MarshallTmvakavLMYHIY3861-54-22 21:04:09 Test Item Value Reference Range Interpretation [...] applied.Catheter placed: Triple-lumen central venous catheterCatheter size (Vincentian): 7Catheter length (cm): 20Catheter tip position: 2.5 [...] and agree with the report as written. [facility] MarshallLkovhdwDMQNSH2017-76-15 21:04:09 Test Item Value Reference Range Interpretation [...] applied.Catheter placed: Triple-lumen central venous catheterCatheter size (Vincentian): 7Catheter length (cm): 20Catheter tip position: 2.5 [...] and agree with the report as written. [facility] CenterWeyrkdzJYTNUC8472-35-90 21:04:09 Test Item Value Reference Range Interpretation [...] applied.Catheter placed: Triple-lumen central venous catheterCatheter size (Vincentian): 7Catheter length (cm): 20Catheter tip position: 2.5 [...] and agree with the report as written. [facility] MarshallVqxkbreDGSMYJ9855-28-59 21:04:09 Test Item Value Reference Range Interpretation [...] applied.Catheter placed: Triple-lumen central venous catheterCatheter size (Vincentian): 7Catheter length (cm): 20Catheter tip position: 2.5 [...] and agree with the report as written. [facility] MarshallLkdrddyUCEFVW9775-56-87 21:04:09 Test Item Value Reference Range Interpretation Comments RADRPT (test PROCEDURE: Non-tunneled central code = venous catheter RADRPT) placementProcedural PersonnelAttending physician(s): Dylan Crandall physician(s): NoneResident physician(s): None[facility] practice provider(s): NonePre-procedure diagnosis: Mediastinal mass, chemotherapy [...] applied.Catheter placed: Triple-lumen central venous catheterCatheter size (Vincentian): 7Catheter length (cm): 20Catheter tip position: 2.5 [...] and agree with the report as written. [facility] MarshallCwqlqqkJJVSVT6785-71-98 21:04:09 Test Item Value Reference Range Interpretation [...] applied.Catheter placed: Triple-lumen central venous catheterCatheter size (Vincentian): 7Catheter length (cm): 20Catheter tip position: 2.5 [...] and agree with the report as written. [facility] MarshallXfmrsxzBOSCEJ6714-89-14 21:04:09 Test Item Value Reference Range Interpretation [...] applied.Catheter placed: Triple-lumen central venous catheterCatheter size (Vincentian): 7Catheter length (cm): 20Catheter tip position: 2.5 [...] and agree with the report as written. [facility] CenterXxqruyzLWLDTE4963-16-36 22:08:14 Test Item Value Reference Range Interpretation [...] is seen overlying the expected inferior IVC. [facility] HospitalVfqtihiTENHQE4039-87-49 22:08:14 Test Item Value Reference Range Interpretation [...] is seen overlying the expected inferior IVC. [facility] CenterFzhgsmcCSWGLP2199-04-81 22:08:14 Test Item Value Reference Range Interpretation [...] is seen overlying the expected inferior IVC. [facility] CenterItdettiNFFUBX3596-02-24 22:08:14 Test Item Value Reference Range Interpretation [...] is seen overlying the expected inferior IVC. [facility] CenterVhgthdmDMZFHG4028-38-74 22:08:14 Test Item Value Reference Range Interpretation [...] is seen overlying the expected inferior IVC. [facility] CenterJssnkkoNTBKJO0447-02-89 22:08:14 Test Item Value Reference Range Interpretation [...] is seen overlying the expected inferior IVC. [facility] CenterDmcqorqXYCLWE9577-83-01 22:08:14 Test Item Value Reference Range Interpretation [...] is seen overlying the expected inferior IVC. [facility] CenterKqgsquwTWSARL3346-23-89 22:08:14 Test Item Value Reference Range Interpretation [...] is seen overlying the expected inferior IVC. [facility] CenterRmppmscUXXOGA2282-65-21 22:08:14 Test Item Value Reference Range Interpretation [...] is seen overlying the expected inferior IVC. [facility] HospitalOqtgmxwSCHWMA5249-53-67 22:08:14 Test Item Value Reference Range Interpretation [...] is seen overlying the expected inferior IVC. [facility] HospitalQsggxqbKLOVIU9958-08-19 22:08:14 Test Item Value Reference Range Interpretation [...] is seen overlying the expected inferior IVC. [facility] CenterLxywxkqZOMTCF0691-53-42 22:08:14 Test Item Value Reference Range Interpretation Comments RADRPT (test Exam: Abdomen AP DXReason for code = RADRPT) Exam: - right femoral central line insertionComparison Exam: CT scan 10/20/2022Discussion:Central venous catheter is seen entering the right inguinal region. The tip is seen overlying the expected inferior IVC. No dilated loops of bowel or abnormal air-fluid level patterns. Overlying skeletal structures are unremarkable.Impression:1. Central venous catheter is seen entering the right inguinal region. The tip is seen overlying the expected inferior IVC. [facility] HospitalXrcildrUEYCPL0602-91-60 22:08:14 Test Item Value Reference Range Interpretation [...] is seen overlying the expected inferior IVC. [facility] HospitalQkzpcmwEGYGMU3419-89-17 22:08:14 Test Item Value Reference Range Interpretation [...] is seen overlying the expected inferior IVC. [facility] HospitalRmeiunxLPDDLU5003-48-03 22:08:14 Test Item Value Reference Range Interpretation [...] is seen overlying the expected inferior IVC. [facility] HospitalZvshjduUZQBCO4753-08-87 22:08:14 Test Item Value Reference Range Interpretation [...] is seen overlying the expected inferior IVC. [facility] CenterZfgksriREWXXQ4831-34-05 19:23:01 Test Item Value Reference Range Interpretation [...] technical note.DLP: 659 mGy-cm.FINDINGS:Lines and Tubes: Likely HAT BRIM CURLER shunt catheter entering the anterior abdominal wall [...] or malignancy in the abdomen and pelvis. [facility] CenterYfddsoyRFJRMR0941-21-65 19:23:01 Test Item Value Reference Range Interpretation [...] technical note.DLP: 659 mGy-cm.FINDINGS:Lines and Tubes: Likely HAT BRIM CURLER shunt catheter entering the anterior abdominal wall [...] or malignancy in the abdomen and pelvis. [facility] MarshallRrwsejqSZCNKT7387-69-30 19:23:01 Test Item Value Reference Range Interpretation [...] technical note.DLP: 659 mGy-cm.FINDINGS:Lines and Tubes: Likely HAT BRIM CURLER shunt catheter entering the anterior abdominal wall [...] or malignancy in the abdomen and pelvis. [facility] CenterJkroheuQAFJCE6488-17-99 19:23:01 Test Item Value Reference Range Interpretation [...] technical note.DLP: 659 mGy-cm.FINDINGS:Lines and Tubes: Likely HAT BRIM CURLER shunt catheter entering the anterior abdominal wall [...] or malignancy in the abdomen and pelvis. [facility] MarshallBjflahnXRAESM9541-09-61 19:23:01 Test Item Value Reference Range Interpretation [...] technical note.DLP: 659 mGy-cm.FINDINGS:Lines and Tubes: Likely HAT BRIM CURLER shunt catheter entering the anterior abdominal wall [...] or malignancy in the abdomen and pelvis. [facility] MarshallUxbtinnKVILNR7482-51-64 19:23:01 Test Item Value Reference Range Interpretation [...] technical note.DLP: 659 mGy-cm.FINDINGS:Lines and Tubes: Likely HAT BRIM CURLER shunt catheter entering the anterior abdominal wall [...] or malignancy in the abdomen and pelvis. [facility] MarshallDhiuhdaIGGUAR6534-89-23 19:23:01 Test Item Value Reference Range Interpretation [...] technical note.DLP: 659 mGy-cm.FINDINGS:Lines and Tubes: Likely HAT BRIM CURLER shunt catheter entering the anterior abdominal wall [...] or malignancy in the abdomen and pelvis. [facility] MarshallVxtzxjrVNJHRY1351-60-08 19:23:01 Test Item Value Reference Range Interpretation [...] technical note.DLP: 659 mGy-cm.FINDINGS:Lines and Tubes: Likely HAT BRIM CURLER shunt catheter entering the anterior abdominal wall [...] or malignancy in the abdomen and pelvis. [facility] HospitalRwuvrrpMXFPEB4132-60-04 19:23:01 Test Item Value Reference Range Interpretation [...] technical note.DLP: 659 mGy-cm.FINDINGS:Lines and Tubes: Likely HAT BRIM CURLER shunt catheter entering the anterior abdominal wall [...] or malignancy in the abdomen and pelvis. [facility] MarshallTrvcsbcEMFPIO6385-12-63 19:23:01 Test Item Value Reference Range Interpretation [...] technical note.DLP: 659 mGy-cm.FINDINGS:Lines and Tubes: Likely HAT BRIM CURLER shunt catheter entering the anterior abdominal wall [...] or malignancy in the abdomen and pelvis. [facility] MarshallGtdraecDDBLRU1797-84-91 19:23:01 Test Item Value Reference Range Interpretation [...] technical note.DLP: 659 mGy-cm.FINDINGS:Lines and Tubes: Likely HAT BRIM CURLER shunt catheter entering the anterior abdominal wall [...] or malignancy in the abdomen and pelvis. [facility] MarshallYbekadzTPKRCE0687-40-90 19:23:01 Test Item Value Reference Range Interpretation [...] technical note.DLP: 659 mGy-cm.FINDINGS:Lines and Tubes: Likely HAT BRIM CURLER shunt catheter entering the anterior abdominal wall [...] or malignancy in the abdomen and pelvis. [facility] MarshallXjpskhqUJAXFI8334-27-95 19:23:01 Test Item Value Reference Range Interpretation [...] technical note.DLP: 659 mGy-cm.FINDINGS:Lines and Tubes: Likely HAT BRIM CURLER shunt catheter entering the anterior abdominal wall [...] or malignancy in the abdomen and pelvis. [facility] MarshallLqyohiuGOUICD8017-76-76 19:23:01 Test Item Value Reference Range Interpretation [...] technical note.DLP: 659 mGy-cm.FINDINGS:Lines and Tubes: Likely HAT BRIM CURLER shunt catheter entering the anterior abdominal wall [...] or malignancy in the abdomen and pelvis. [facility] MarshallDzkzrsfCLJXNR8169-22-80 19:23:01 Test Item Value Reference Range Interpretation [...] technical note.DLP: 659 mGy-cm.FINDINGS:Lines and Tubes: Likely HAT BRIM CURLER shunt catheter entering the anterior abdominal wall [...] or malignancy in the abdomen and pelvis. [facility] MarshallYsnccjvYMLDFG4248-63-15 19:23:01 Test Item Value Reference Range Interpretation [...] technical note.DLP: 659 mGy-cm.FINDINGS:Lines and Tubes: Likely HAT BRIM CURLER shunt catheter entering the anterior abdominal wall [...] or malignancy in the abdomen and pelvis. [facility] [facility]OnlpclyZRBIDYVIH2669-14-90 05:31:00 Test Item Value Reference Range Interpretation Comments LDH (test code = LDH) 201 98-192 [facility] CenterJnxjjxuHPGBYYYET8687-86-09 05:31:00 Test Item Value Reference Range Interpretation Comments Uric Acid (test code = Uric Acid) 3.6 2.5-7.0 [facility] CenterEqpvzvtQLLJUVOBV2404-05-79 05:31:00 Test Item Value Reference Range Interpretation Comments Magnesium Lvl (test code = Magnesium 2.0 1.8-2.4 Lvl) [facility] CenterXmtllufAXPOBNUEH6903-83-36 05:31:00 Test Item Value Reference Range Interpretation Comments Phosphorus (test code = Phosphorus) 3.9 2.5-4.5 [facility] CenterIbsdxghUAZCGQLJS5440-92-35 05:31:00 Test Item Value Reference Range Interpretation Comments LDH (test code = LDH) 201 [facility] CenterZoqjexrSMZDIGEEW9903-82-10 05:31:00 Test Item Value Reference Range Interpretation Comments Uric Acid (test code = Uric Acid) 3.6 2.5-7.0 [facility] CenterSlyuxhaFQAWEJNFX7577-89-79 05:31:00 Test Item Value Reference Range Interpretation Comments Magnesium Lvl (test code = Magnesium 2.0 1.8-2.4 Lvl) [facility] CenterRrxiuxvVYLGHOISX7920-30-57 05:31:00 Test Item Value Reference Range Interpretation Comments Phosphorus (test code = Phosphorus) 3.9 2.5-4.5 [facility] CenterXtgyqajIKMZGJRXT1101-20-56 05:31:00 Test Item Value Reference Range Interpretation Comments LDH (test code = LDH) [facility] CenterKrcqloqFLNJOMKAX0300-26-62 05:31:00 Test Item Value Reference Range Interpretation Comments Uric Acid (test code = Uric Acid) 3.6 2.5-7.0 [facility] CenterVhxhvvsRYNPLZBKS8329-99-11 05:31:00 Test Item Value Reference Range Interpretation Comments Magnesium Lvl (test code = Magnesium 2.0 1.8-2.4 Lvl) [facility] CenterObqxbeoXGLSBNWHP8015-13-43 05:31:00 Test Item Value Reference Range Interpretation Comments Phosphorus (test code = Phosphorus) 3.9 2.5-4.5 [facility] CenterHqgijxxPQDNTWTPE1224-31-45 05:31:00 Test Item Value Reference Range Interpretation Comments LDH (test code = LDH) [facility] CenterCgensoaRLZAKBBMW2868-53-27 05:31:00 Test Item Value Reference Range Interpretation Comments Uric Acid (test code = Uric Acid) 3.6 2.5-7.0 [facility] CenterNhwqnkoICKYVTJLN6149-05-80 05:31:00 Test Item Value Reference Range Interpretation Comments Magnesium Lvl (test code = Magnesium 2.0 1.8-2.4 Lvl) [facility] CenterJaxmminPEOGZENYN8477-98-36 05:31:00 Test Item Value Reference Range Interpretation Comments Phosphorus (test code = Phosphorus) 3.9 2.5-4.5 [facility] CenterTnctkbjWSSHLCUOH2998-84-85 05:31:00 Test Item Value Reference Range Interpretation Comments LDH (test code = LDH) [address] [facility] CenterOtrtingNISGJSNHX0930-69-18 05:31:00 Test Item Value Reference Range Interpretation Comments Uric Acid (test code = Uric Acid) 3.6 2.5-7.0 [facility] CenterTupevdnVOBERMVFR7065-79-59 05:31:00 Test Item Value Reference Range Interpretation Comments Magnesium Lvl (test code = Magnesium 2.0 1.8-2.4 Lvl) [facility] CenterEednkmeIDFBGTRMS1912-60-46 05:31:00 Test Item Value Reference Range Interpretation Comments Phosphorus (test code = Phosphorus) 3.9 2.5-4.5 [facility] CenterEhfridvGFQWSDAGI1358-73-21 05:31:00 Test Item Value Reference Range Interpretation Comments LDH (test code = LDH) [facility] CenterKwxhoyhMNBNODAXJ0188-72-85 05:31:00 Test Item Value Reference Range Interpretation Comments Uric Acid (test code = Uric Acid) 3.6 2.5-7.0 [facility] CenterIiaqarpWZELFNUYN4740-86-57 05:31:00 Test Item Value Reference Range Interpretation Comments Magnesium Lvl (test code = Magnesium 2.0 1.8-2.4 Lvl) [facility] CenterIkvaxfpKSLKJTYVA3653-62-79 05:31:00 Test Item Value Reference Range Interpretation Comments Phosphorus (test code = Phosphorus) 3.9 2.5-4.5 [facility] CenterUrgazcjQZTDNDEPN5962-33-03 05:31:00 Test Item Value Reference Range Interpretation Comments LDH (test code = LDH) 201 [facility] CenterFoiovavUTSBUKUIY2826-66-12 05:31:00 Test Item Value Reference Range Interpretation Comments Uric Acid (test code = Uric Acid) 3.6 2.5-7.0 [facility] CenterPkorlfuIIFQJZPOL9334-01-49 05:31:00 Test Item Value Reference Range Interpretation Comments Magnesium Lvl (test code = Magnesium 2.0 1.8-2.4 Lvl) [facility] CenterJnptcynXPCVRQAGF8416-59-77 05:31:00 Test Item Value Reference Range Interpretation Comments Phosphorus (test code = Phosphorus) 3.9 2.5-4.5 [facility] CenterFobschoFTLDRJHMF8515-61-06 05:31:00 Test Item Value Reference Range Interpretation Comments LDH (test code = LDH) [address] [facility] CenterPbepqejGMGDXRTRZ0193-97-53 05:31:00 Test Item Value Reference Range Interpretation Comments Uric Acid (test code = Uric Acid) 3.6 2.5-7.0 [facility] CenterFftjchcDHYIYMLCW7884-90-13 05:31:00 Test Item Value Reference Range Interpretation Comments Magnesium Lvl (test code = Magnesium 2.0 1.8-2.4 Lvl) [facility] CenterWqucftlUFCUXFBZW9188-41-99 05:31:00 Test Item Value Reference Range Interpretation Comments Phosphorus (test code = Phosphorus) 3.9 2.5-4.5 [facility] CenterQhtvwllZIRUIONDY8069-23-53 05:31:00 Test Item Value Reference Range Interpretation Comments LDH (test code = LDH) [address] [facility] CenterWhhzohrUWTQLVQJT6265-55-46 05:31:00 Test Item Value Reference Range Interpretation Comments Uric Acid (test code = Uric Acid) 3.6 2.5-7.0 [facility] CenterUqmmqgeZZQYFMWRT2561-51-29 05:31:00 Test Item Value Reference Range Interpretation Comments Magnesium Lvl (test code = Magnesium 2.0 1.8-2.4 Lvl) [facility] CenterZoqvpbdUFCIFQYMD3180-40-71 05:31:00 Test Item Value Reference Range Interpretation Comments Phosphorus (test code = Phosphorus) 3.9 2.5-4.5 [facility] CenterMhqhoarHTVGNVGVT1904-18-65 05:31:00 Test Item Value Reference Range Interpretation Comments LDH (test code = LDH) [address] [facility] CenterZhzblglFSAIGJWMU3254-79-50 05:31:00 Test Item Value Reference Range Interpretation Comments Uric Acid (test code = Uric Acid) 3.6 2.5-7.0 [facility] CenterJpkpxcoQBTSYGOYH7494-25-90 05:31:00 Test Item Value Reference Range Interpretation Comments Magnesium Lvl (test code = Magnesium 2.0 1.8-2.4 Lvl) [facility] CenterYtpoyluTEDQVIUTU4991-17-09 05:31:00 Test Item Value Reference Range Interpretation Comments Phosphorus (test code = Phosphorus) 3.9 2.5-4.5 [facility] CenterLuxrtccZAMNQPXYQ6543-25-05 05:31:00 Test Item Value Reference Range Interpretation Comments LDH (test code = LDH) 201 [facility] CenterSxwhrasBOSARSWOT7540-88-13 05:31:00 Test Item Value Reference Range Interpretation Comments Uric Acid (test code = Uric Acid) 3.6 2.5-7.0 [facility] CenterFnwwtdjSVNAZIHPQ7675-68-22 05:31:00 Test Item Value Reference Range Interpretation Comments Magnesium Lvl (test code = Magnesium 2.0 1.8-2.4 Lvl) [facility] CenterPirxmeaVVLLKBEJX4708-48-65 05:31:00 Test Item Value Reference Range Interpretation Comments Phosphorus (test code = Phosphorus) 3.9 2.5-4.5 [facility] CenterFpmkeoeKWAUWLRHI6136-33-69 05:31:00 Test Item Value Reference Range Interpretation Comments LDH (test code = LDH) 201 98-192 [facility] CenterNqonishIJDQDSXIQ9238-01-66 05:31:00 Test Item Value Reference Range Interpretation Comments Uric Acid (test code = Uric Acid) 3.6 2.5-7.0 [facility] CenterUvbucxqYGIHNDZNY0578-55-66 05:31:00 Test Item Value Reference Range Interpretation Comments Magnesium Lvl (test code = Magnesium 2.0 1.8-2.4 Lvl) [facility] CenterWjofpbmHCOWFEUVN1446-35-89 05:31:00 Test Item Value Reference Range Interpretation Comments Phosphorus (test code = Phosphorus) 3.9 2.5-4.5 [facility] CenterVrvnmooTLILQSTCL6598-26-99 05:31:00 Test Item Value Reference Range Interpretation Comments LDH (test code = LDH) 201 98-192 [facility] CenterQklswasFIDTMWPNR0346-84-92 05:31:00 Test Item Value Reference Range Interpretation Comments Uric Acid (test code = Uric Acid) 3.6 2.5-7.0 [facility] CenterDnliqssUCNCAJAXC7490-48-20 05:31:00 Test Item Value Reference Range Interpretation Comments Magnesium Lvl (test code = Magnesium 2.0 1.8-2.4 Lvl) [facility] CenterNvajcgvBKAETFWLY8658-03-85 05:31:00 Test Item Value Reference Range Interpretation Comments Phosphorus (test code = Phosphorus) 3.9 2.5-4.5 [facility] CenterNnqwawqLFKFFARUM5411-87-59 05:31:00 Test Item Value Reference Range Interpretation Comments LDH (test code = LDH) 201 98-192 [facility] CenterZkwiuywZABWRKRNY9343-75-94 05:31:00 Test Item Value Reference Range Interpretation Comments Uric Acid (test code = Uric Acid) 3.6 2.5-7.0 [place] [address]-10-20 05:31:00 Test Item Value Reference Range Interpretation Comments Magnesium Lvl (test code = Magnesium 2.0 1.8-2.4 Lvl) [facility] CenterQzizcicSFZKOCZHP2427-70-69 05:31:00 Test Item Value Reference Range Interpretation Comments Phosphorus (test code = Phosphorus) 3.9 2.5-4.5 [facility] CenterYgvxzsjMBHKVZSMP7666-88-09 05:31:00 Test Item Value Reference Range Interpretation Comments LDH (test code = LDH) 201 98-192 [facility] CenterOredewjEISAHTMNE4840-89-64 05:31:00 Test Item Value Reference Range Interpretation Comments Uric Acid (test code = Uric Acid) 3.6 2.5-7.0 [facility] CenterCxkzmgcELJHRYIFY9381-64-09 05:31:00 Test Item Value Reference Range Interpretation Comments Magnesium Lvl (test code = Magnesium 2.0 1.8-2.4 Lvl) [facility] CenterAmmozvkTVWUZSXQS0315-71-84 05:31:00 Test Item Value Reference Range Interpretation Comments Phosphorus (test code = Phosphorus) 3.9 2.5-4.5 [facility] CenterIyjjzrmKBOVZESNA6337-64-95 05:31:00 Test Item Value Reference Range Interpretation Comments LDH (test code = LDH) 201 98-192 [facility] CenterIwtoseoKSEUGITAP8113-34-31 05:31:00 Test Item Value Reference Range Interpretation Comments Uric Acid (test code = Uric Acid) 3.6 2.5-7.0 [facility] CenterNtvjhvgAFJTQFNGZ1031-19-50 05:31:00 Test Item Value Reference Range Interpretation Comments Magnesium Lvl (test code = Magnesium 2.0 1.8-2.4 Lvl) [facility] CenterExqvzcmTVHGALQUC9553-76-73 05:31:00 Test Item Value Reference Range Interpretation Comments Phosphorus (test code = Phosphorus) 3.9 2.5-4.5 [place] [id number] 18:39:54 Test Item Value Reference Range Interpretation [...] stable condition.Impression:Succe ssful anterior mediastinal mass biopsy. [facility]CuwyzobUBKVLD7383-71-23 18:39:54 Test Item Value Reference Range Interpretation [...] stable condition.Impression:Succe ssful anterior mediastinal mass biopsy. [facility] HospitalJzgsytjBNFSDZ0845-72-93 18:39:54 Test Item Value Reference Range Interpretation [...] stable condition.Impression:Succe ssful anterior mediastinal mass biopsy. [facility] CenterYljzqbaJLHYJW8709-58-01 18:39:54 Test Item Value Reference Range Interpretation [...] stable condition.Impression:Succe ssful anterior mediastinal mass biopsy. [facility] HospitalPpddqhfISBHKV5416-45-14 18:39:54 Test Item Value Reference Range Interpretation [...] stable condition.Impression:Succe ssful anterior mediastinal mass biopsy. [facility] HospitalJsluvhmXANWMO7317-98-31 18:39:54 Test Item Value Reference Range Interpretation [...] stable condition.Impression:Succe ssful anterior mediastinal mass biopsy. [facility] HospitalLhglyvrUMODOD4230-61-05 18:39:54 Test Item Value Reference Range Interpretation [...] stable condition.Impression:Succe ssful anterior mediastinal mass biopsy. [facility] HospitalSfxosekUNSNCQ8899-01-23 18:39:54 Test Item Value Reference Range Interpretation [...] stable condition.Impression:Succe ssful anterior mediastinal mass biopsy. [facility] HospitalBkcszvtBNYODT3753-68-17 18:39:54 Test Item Value Reference Range Interpretation [...] stable condition.Impression:Succe ssful anterior mediastinal mass biopsy. [facility] HospitalOuruqlcOOUVBL3465-22-92 18:39:54 Test Item Value Reference Range Interpretation [...] stable condition.Impression:Succe ssful anterior mediastinal mass biopsy. [facility] MarshallWlxjzndZBPTOM8635-58-41 18:39:54 Test Item Value Reference Range Interpretation [...] stable condition.Impression:Succe ssful anterior mediastinal mass biopsy. [facility] HospitalSalmbsmRWWBVV3830-30-68 18:39:54 Test Item Value Reference Range Interpretation [...] stable condition.Impression:Succe ssful anterior mediastinal mass biopsy. [facility] MarshallCphszfzQFXYGR2174-25-44 18:39:54 Test Item Value Reference Range Interpretation [...] stable condition.Impression:Succe ssful anterior mediastinal mass biopsy. Leah OleaUyvvlauWMDDAM0365-46-85 18:39:54 Test Item Value Reference Range Interpretation [...] stable condition.Impression:Succe ssful anterior mediastinal mass biopsy. [facility] MarshallNpvtopiUBPTLM9058-40-24 18:39:54 Test Item Value Reference Range Interpretation [...] stable condition.Impression:Succe ssful anterior mediastinal mass biopsy. [facility] MarshallZxtkzlpKZBGVZ2187-18-10 18:39:54 Test Item Value Reference Range Interpretation Comments RADRPT (test code = Procedure(s):CT-guided RADRPT) mediastinal mass biopsyDate of Procedure: 2Operators: Hermilo XieESTEFANYedications: 1% Lidocaine SQ, Versed 0.5 mg IV, [...] stable condition.Impression:Succe ssful anterior mediastinal mass biopsy. [facility] CenterOgfihyhXILAPR5209-66-41 11:49:02 Test Item Value Reference Range Interpretation [...] demonstrates no gross abnormalities.Impression:No acute cardiopulmonary disease [place] 973982-10-16 11:49:02 Test Item Value Reference Range Interpretation [...] demonstrates no gross abnormalities.Impression:No acute cardiopulmonary disease [place] 973982-10-16 11:49:02 Test Item Value Reference Range Interpretation [...] demonstrates no gross abnormalities.Impression:No acute cardiopulmonary disease [place] 62829022-10-16 11:49:02 Test Item Value Reference Range Interpretation [...] demonstrates no gross abnormalities.Impression:No acute cardiopulmonary disease [facility] HospitalMvakockUOGLSI9431-87-73 11:49:02 Test Item Value Reference Range Interpretation [...] demonstrates no gross abnormalities.Impression:No acute cardiopulmonary disease [place] 973982-10-16 11:49:02 Test Item Value Reference Range Interpretation [...] demonstrates no gross abnormalities.Impression:No acute cardiopulmonary disease [place] 973982-10-16 11:49:02 Test Item Value Reference Range Interpretation [...] demonstrates no gross abnormalities.Impression:No acute cardiopulmonary disease [place] 973982-10-16 11:49:02 Test Item Value Reference Range Interpretation [...] demonstrates no gross abnormalities.Impression:No acute cardiopulmonary disease [place] 101[address]-10-16 11:49:02 Test Item Value Reference Range Interpretation [...] demonstrates no gross abnormalities.Impression:No acute cardiopulmonary disease [place] 62829022-10-16 11:49:02 Test Item Value Reference Range Interpretation [...] demonstrates no gross abnormalities.Impression:No acute cardiopulmonary disease [place] 973982-10-16 11:49:02 Test Item Value Reference Range Interpretation [...] demonstrates no gross abnormalities.Impression:No acute cardiopulmonary disease [place] 973982-10-16 11:49:02 Test Item Value Reference Range Interpretation [...] demonstrates no gross abnormalities.Impression:No acute cardiopulmonary disease [place] 973982-10-16 11:49:02 Test Item Value Reference Range Interpretation [...] demonstrates no gross abnormalities.Impression:No acute cardiopulmonary disease [place] 973982-10-16 11:49:02 Test Item Value Reference Range Interpretation [...] demonstrates no gross abnormalities.Impression:No acute cardiopulmonary disease [place] 973982-10-16 11:49:02 Test Item Value Reference Range Interpretation [...] demonstrates no gross abnormalities.Impression:No acute cardiopulmonary disease [place] [id number] 11:49:02 Test Item Value Reference Range Interpretation [...] demonstrates no gross abnormalities.Impression:No acute cardiopulmonary disease [facility]2022-10-16 09:37:00 Test Item Value Reference Range Interpretation Comments Procalcitonin Lvl (test no gt See_Comment [Au tomated message] code = Procalcitonin Lvl) Th e system which generated this result transmitted ref erence range: <=0.10. The reference range was not used to interpr et this result as normal/abnormal . [facility]2022-10-16 09:37:00 Test Item Value Reference Range Interpretation Comments Glucose Lvl (test code = Glucose Lvl) 103 70-99 [place] 245222-10-16 09:37:00 Test Item Value Reference Range Interpretation Comments BUN (test code = BUN) 13 7-22 [place] [address]-10-16 09:37:00 Test Item Value Reference Range Interpretation Comments Creatinine Lvl (test code = Creatinine 0.67 0.50-1.40 Lvl) [place] 245222-10-16 09:37:00 Test Item Value Reference Range Interpretation Comments Sodium Lvl (test code = Sodium Lvl) 138 135-145 [place] 245222-10-16 09:37:00 Test Item Value Reference Range Interpretation Comments Potassium Lvl (test code = Potassium 3.7 3.5-5.1 Lvl) [place] 245222-10-16 09:37:00 Test Item Value Reference Range Interpretation Comments Chloride Lvl (test code = Chloride Lvl) 98 95-109 [place] 245222-10-16 09:37:00 Test Item Value Reference Range Interpretation Comments CO2 (test code = CO2) 32 24-32 [place] 245222-10-16 09:37:00 Test Item Value Reference Range Interpretation Comments Calcium Lvl (test code = Calcium Lvl) 9.3 8.5-10.5 [place] 245222-10-16 09:37:00 Test Item Value Reference Range Interpretation Comments Total Protein (test code = Total 7.5 6.4-8.4 Protein) [place] 245222-10-16 09:37:00 Test Item Value Reference Range Interpretation Comments Albumin Lvl (test code = Albumin Lvl) 3.0 3.5-5.0 [place] 245222-10-16 09:37:00 Test Item Value Reference Range Interpretation Comments ALT (test code = ALT) 18 See_Comment [Auto mated message] The system which ge nerated this result transmit fabiano reference range : <=65. The reference range was not used to interpr et this result as aleks l/abnormal. [place] 245222-10-16 09:37:00 Test Item Value Reference Range Interpretation Comments AST (test code = AST) 6 See_Comment [Auto mated message] The system which ge nerated this result transmit fabiano reference range : <=37. The reference range was not used to interpr et this result as aleks l/abnormal. [facility]2022-10-16 09:37:00 Test Item Value Reference Range Interpretation Comments Alk Phos (test code = Alk Phos) 118 39-136 [place] 245222-10-16 09:37:00 Test Item Value Reference Range Interpretation Comments Bili Total (test code = Bili Total) 0.4 0.2-1.3 [place] [address]-10-16 09:37:00 Test Item Value Reference Range Interpretation Comments AGAP (test code = AGAP) 11.7 10.0-20.0 [place] 245222-10-16 09:37:00 Test Item Value Reference Range Interpretation Comments B/C Ratio (test code = B/C Ratio) 19 1 6-25 [place] [address]-10-16 09:37:00 Test Item Value Reference Range Interpretation Comments Globulin (test code = Globulin) 4.5 2.7-4.2 [place] [address]-10-16 09:37:00 Test Item Value Reference Range Interpretation Comments A/G Ratio (test code = A/G Ratio) 0.7 1 0.7-1.6 [place] 245222-10-16 09:37:00 Test Item Value Reference Range Interpretation Comments eGFR (test code = eGFR) 105 [place] 245222-10-16 09:37:00 Test Item Value Reference Range Interpretation Comments Phosphorus (test code = Phosphorus) 3.7 2.5-4.5 [place] 245222-10-16 09:37:00 Test Item Value Reference Range Interpretation Comments Procalcitonin Lvl (test no gt See_Comment [Au tomated message] code = Procalcitonin Lvl) e system which generated this result transmitted ref erence range: <=0.10. The reference range was not used to interpr et this result as normal/abnormal . [place] 245222-10-16 09:37:00 Test Item Value Reference Range Interpretation Comments Glucose Lvl (test code = Glucose Lvl) 103 70-99 [place] 245222-10-16 09:37:00 Test Item Value Reference Range Interpretation Comments BUN (test code = BUN) 13 7-22 [place] 245222-10-16 09:37:00 Test Item Value Reference Range Interpretation Comments Magnesium Lvl (test code = Magnesium 2.1 1.8-2.4 Lvl) [place] 245222-10-16 09:37:00 Test Item Value Reference Range Interpretation Comments Creatinine Lvl (test code = Creatinine 0.67 0.50-1.40 Lvl) [place] [address]-10-16 09:37:00 Test Item Value Reference Range Interpretation Comments Sodium Lvl (test code = Sodium Lvl) 138 135-145 [place] 245222-10-16 09:37:00 Test Item Value Reference Range Interpretation Comments Potassium Lvl (test code = Potassium 3.7 3.5-5.1 Lvl) [place] 245222-10-16 09:37:00 Test Item Value Reference Range Interpretation Comments Chloride Lvl (test code = Chloride Lvl) 98 95-109 [place] 245222-10-16 09:37:00 Test Item Value Reference Range Interpretation Comments CO2 (test code = CO2) 32 24-32 [facility] [id number] 09:37:00 Test Item Value Reference Range Interpretation Comments Calcium Lvl (test code = Calcium Lvl) 9.3 8.5-10.5 [facility] WJSNB2535-88-83 09:37:00 Test Item Value Reference Range Interpretation Comments Total Protein (test code = Total 7.5 6.4-8.4 Protein) [facility] NIYWY7716-01-97 09:37:00 Test Item Value Reference Range Interpretation Comments Albumin Lvl (test code = Albumin Lvl) 3.0 3.5-5.0 [facility] [id number] 09:37:00 Test Item Value Reference Range Interpretation Comments ALT (test code = ALT) 18 See_Comment [Auto mated message] The system which ge nerated this result transmit fabiano reference range : <=65. The reference range was not used to interpr et this result as aleks l/abnormal. [facility] [id number] 09:37:00 Test Item Value Reference Range Interpretation Comments AST (test code = AST) 6 See_Comment [Auto mated message] The system which ge nerated this result transmit fabiano reference range : <=37. The reference range was not used to interpr et this result as aleks l/abnormal. [facility] MarshallDeoietuSWUMBDNRP0119-07-30 09:37:00 Test Item Value Reference Range Interpretation Comments Procalcitonin Lvl (test no gt See_Comment [Au tomated message] code = Procalcitonin Lvl) Th e system which generated this result transmitted ref erence range: <=0.10. The reference range was not used to interpr et this result as normal/abnormal . [facility] [id number] 09:37:00 Test Item Value Reference Range Interpretation Comments Alk Phos (test code = Alk Phos) 118 39-136 [facility] [id number] 09:37:00 Test Item Value Reference Range Interpretation Comments Bili Total (test code = Bili Total) 0.4 0.2-1.3 [facility] [id number] 09:37:00 Test Item Value Reference Range Interpretation Comments AGAP (test code = AGAP) 11.7 10.0-20.0 [place] 245222-10-16 09:37:00 Test Item Value Reference Range Interpretation Comments B/C Ratio (test code = B/C Ratio) 19 1 6-25 [place] [address]-10-16 09:37:00 Test Item Value Reference Range Interpretation Comments Globulin (test code = Globulin) 4.5 2.7-4.2 [place] [address]-10-16 09:37:00 Test Item Value Reference Range Interpretation Comments A/G Ratio (test code = A/G Ratio) 0.7 1 0.7-1.6 [place] [address]-10-16 09:37:00 Test Item Value Reference Range Interpretation Comments eGFR (test code = eGFR) 105 [place] 245222-10-16 09:37:00 Test Item Value Reference Range Interpretation Comments Phosphorus (test code = Phosphorus) 3.7 2.5-4.5 [place] 245222-10-16 09:37:00 Test Item Value Reference Range Interpretation Comments Magnesium Lvl (test code = Magnesium 2.1 1.8-2.4 Lvl) [place] [address]-10-16 09:37:00 Test Item Value Reference Range Interpretation Comments Procalcitonin Lvl (test no gt See_Comment [Au tomated message] code = Procalcitonin Lvl) e system which generated this result transmitted ref erence range: <=0.10. The reference range was not used to interpr et this result as normal/abnormal . [place] [address]-10-16 09:37:00 Test Item Value Reference Range Interpretation Comments WBC (test code = WBC) 15.7 3.7-10.4 [place] [address]-10-16 09:37:00 Test Item Value Reference Range Interpretation Comments WBC (test code = WBC) 15.7 3.7-10.4 [place] [address]-10-16 09:37:00 Test Item Value Reference Range Interpretation Comments RBC (test code = RBC) 4.10 4.20-5.40 [place] [address]-10-16 09:37:00 Test Item Value Reference Range Interpretation Comments Hgb (test code = Hgb) 10.7 12.0-16.0 [facility] DistrictVaauhoeMLIEAPXMEL0772-12-99 09:37:00 Test Item Value Reference Range Interpretation Comments Hct (test code = Hct) 32.8 36.0-48.0 [facility] DistrictJjnyvvoTBHYQMAIST7254-25-48 09:37:00 Test Item Value Reference Range Interpretation Comments MCV (test code = MCV) 80.0 80.0-98.0 [facility] DistrictEqpbepiZRCMUYZRVW5153-21-04 09:37:00 Test Item Value Reference Range Interpretation Comments MCH (test code = MCH) 26.1 pg 27.0-31.0 [facility] DistrictUbkimvhXALMDEFYZS8122-87-72 09:37:00 Test Item Value Reference Range Interpretation Comments MCHC (test code = MCHC) 32.6 32.0-36.0 [facility] DistrictYeifwjvADWZPZEOCB5830-27-25 09:37:00 Test Item Value Reference Range Interpretation Comments RDW (test code = RDW) 16.4 11.5-14.5 [facility] DistrictSoabyjfMLXWXJEHKW2886-90-53 09:37:00 Test Item Value Reference Range Interpretation Comments Platelet (test code = Platelet) 362 133-450 [facility] DistrictZzrblaxCXLIQJNYUX7102-16-52 09:37:00 Test Item Value Reference Range Interpretation Comments MPV (test code = MPV) 8.1 7.4-10.4 [place] 495052-10-16 09:37:00 Test Item Value Reference Range Interpretation Comments RBC (test code = RBC) 4.10 4.20-5.40 [facility] DistrictUfmqozfLQSILFUUXD3980-86-54 09:37:00 Test Item Value Reference Range Interpretation Comments Segs (test code = Segs) 76.4 45.0-75.0 [facility] DistrictLcibtnkFURRIJXBHE5196-88-89 09:37:00 Test Item Value Reference Range Interpretation Comments Lymphocytes (test code = Lymphocytes) 13.3 20.0-40.0 [place] 495052-10-16 09:37:00 Test Item Value Reference Range Interpretation Comments Monocytes (test code = Monocytes) 5.7 2.0-12.0 [facility] DistrictHdeaienDOJNMGQGBK9928-05-50 09:37:00 Test Item Value Reference Range Interpretation Comments Eosinophils (test code = 3.7 See_Comment [A utomated message] The Eosinophils) system which ge nerated this result tra nsmitted reference range : <=4.0. The reference r quynh was not used to int erpret this result as normal/abnormal . [place] [address]-10-16 09:37:00 Test Item Value Reference Range Interpretation Comments Basophils (test code = 0.9 See_Comment [Aut omated message] The Basophils) system which ge nerated this result tra nsmitted reference range : <=1.0. The reference r quynh was not used to int erpret this result as normal/abnormal . [facility] DistrictVwvklgyKJRHXBDNBM0666-03-44 09:37:00 Test Item Value Reference Range Interpretation Comments Neutrophils # (test code = Neutrophils 12.0 1.5-8.1 #) [place] 495052-10-16 09:37:00 Test Item Value Reference Range Interpretation Comments Lymphocytes # (test code = Lymphocytes 2.1 1.0-5.5 #) [place] 495052-10-16 09:37:00 Test Item Value Reference Range Interpretation Comments Monocytes # (test code 0.9 See_Comment [Aut omated message] The = Monocytes #) system which generated this result tra nsmitted reference range : <=0.8. The reference r quynh was not used to int erpret this result as normal/abnormal . [place] [address]-10-16 09:37:00 Test Item Value Reference Range Interpretation Comments Eosinophils # (test code 0.6 See_Comment [A utomated message] The = Eosinophils #) system ic h generated this result tra nsmitted reference range : <=0.5. The reference r quynh was not used to int erpret this result as normal/abnormal . [place] [address]-10-16 09:37:00 Test Item Value Reference Range Interpretation Comments Basophils # (test code 0.1 See_Comment [Aut omated message] The = Basophils #) system which generated this result tra nsmitted reference range : <=0.2. The reference r quynh was not used to int erpret this result as normal/abnormal . [place] 495052-10-16 09:37:00 Test Item Value Reference Range Interpretation Comments Hgb (test code = Hgb) 10.7 12.0-16.0 [place] [address]-10-16 09:37:00 Test Item Value Reference Range Interpretation Comments Hct (test code = Hct) 32.8 36.0-48.0 [place] 495052-10-16 09:37:00 Test Item Value Reference Range Interpretation Comments MCV (test code = MCV) 80.0 80.0-98.0 [place] 495052-10-16 09:37:00 Test Item Value Reference Range Interpretation Comments MCH (test code = MCH) 26.1 pg 27.0-31.0 [place] 495052-10-16 09:37:00 Test Item Value Reference Range Interpretation Comments MCHC (test code = MCHC) 32.6 32.0-36.0 [place] 495052-10-16 09:37:00 Test Item Value Reference Range Interpretation Comments RDW (test code = RDW) 16.4 11.5-14.5 [place] 495052-10-16 09:37:00 Test Item Value Reference Range Interpretation Comments Platelet (test code = Platelet) 362 133-450 [facility] DistrictDmdoeljZNTHSNRMRW4123-67-00 09:37:00 Test Item Value Reference Range Interpretation Comments MPV (test code = MPV) 8.1 7.4-10.4 [place] 495052-10-16 09:37:00 Test Item Value Reference Range Interpretation Comments Segs (test code = Segs) 76.4 45.0-75.0 [place] 495052-10-16 09:37:00 Test Item Value Reference Range Interpretation Comments Lymphocytes (test code = Lymphocytes) 13.3 20.0-40.0 [place] 495052-10-16 09:37:00 Test Item Value Reference Range Interpretation Comments Monocytes (test code = Monocytes) 5.7 2.0-12.0 [place] [address]-10-16 09:37:00 Test Item Value Reference Range Interpretation Comments Eosinophils (test code = 3.7 See_Comment [A utomated message] The Eosinophils) system which ge nerated this result tra nsmitted reference range : <=4.0. The reference r quynh was not used to int erpret this result as normal/abnormal . [place] 495052-10-16 09:37:00 Test Item Value Reference Range Interpretation Comments Basophils (test code = 0.9 See_Comment [Aut omated message] The Basophils) system which ge nerated this result tra nsmitted reference range : <=1.0. The reference r quynh was not used to int erpret this result as normal/abnormal . [facility] DistrictYlemyfyLIFDSITSLK1142-70-35 09:37:00 Test Item Value Reference Range Interpretation Comments Neutrophils # (test code = Neutrophils 12.0 1.5-8.1 #) [facility] DistrictBaawyzpMMUNOHFNOF7155-78-88 09:37:00 Test Item Value Reference Range Interpretation Comments Lymphocytes # (test code = Lymphocytes 2.1 1.0-5.5 #) [place] 495052-10-16 09:37:00 Test Item Value Reference Range Interpretation Comments Monocytes # (test code 0.9 See_Comment [Aut omated message] The = Monocytes #) system which generated this result tra nsmitted reference range : <=0.8. The reference r quynh was not used to int erpret this result as normal/abnormal . [facility] MarshallVifmxlvIHURUNWYQZ4481-69-62 09:37:00 Test Item Value Reference Range Interpretation Comments Eosinophils # (test code 0.6 See_Comment [A utomated message] The = Eosinophils #) system whic h generated this result tra nsmitted reference range : <=0.5. The reference r quynh was not used to int erpret this result as normal/abnormal . [facility] MarshallJuxvuviQCLNLOEYEC2792-12-79 09:37:00 Test Item Value Reference Range Interpretation Comments Basophils # (test code 0.1 See_Comment [Aut omated message] The = Basophils #) system which generated this result tra nsmitted reference range : <=0.2. The reference r quynh was not used to int erpret this result as normal/abnormal . [facility] Cost Effective Data2022-10-16 09:37:00 Test Item Value Reference Range Interpretation Comments Procalcitonin Lvl (test no gt See_Comment [Au tomated message] code = Procalcitonin Lvl) Th e system which generated this result transmitted ref erence range: <=0.10. The reference range was not used to interpr et this result as normal/abnormal . [facility] [id number] 09:37:00 Test Item Value Reference Range Interpretation Comments Glucose Lvl (test code = Glucose Lvl) 103 70-99 [place] [address]-10-16 09:37:00 Test Item Value Reference Range Interpretation Comments BUN (test code = BUN) 13 7-22 [place] [address]-10-16 09:37:00 Test Item Value Reference Range Interpretation Comments Creatinine Lvl (test code = Creatinine 0.67 0.50-1.40 Lvl) [place] [address]-10-16 09:37:00 Test Item Value Reference Range Interpretation Comments Sodium Lvl (test code = Sodium Lvl) 138 135-145 [place] [address]-10-16 09:37:00 Test Item Value Reference Range Interpretation Comments Potassium Lvl (test code = Potassium 3.7 3.5-5.1 Lvl) [address]10-16 09:37:00 Test Item Value Reference Range Interpretation Comments Chloride Lvl (test code = Chloride Lvl) 98 95-109 [place] [address]-10-16 09:37:00 Test Item Value Reference Range Interpretation Comments CO2 (test code = CO2) 32 24-32 [place] [address]-10-16 09:37:00 Test Item Value Reference Range Interpretation Comments Calcium Lvl (test code = Calcium Lvl) 9.3 8.5-10.5 [place] [address]-10-16 09:37:00 Test Item Value Reference Range Interpretation Comments Total Protein (test code = Total 7.5 6.4-8.4 Protein) [address]10-16 09:37:00 Test Item Value Reference Range Interpretation Comments Albumin Lvl (test code = Albumin Lvl) 3.0 3.5-5.[address]10-16 09:37:00 Test Item Value Reference Range Interpretation Comments ALT (test code = ALT) 18 See_Comment [Auto mated message] The system which ge nerated this result transmit fabiano reference range : <=65. The reference range was not used to interpr et this result as aleks l/abnormal. [address]10-16 09:37:00 Test Item Value Reference Range Interpretation Comments AST (test code = AST) 6 See_Comment [Auto mated message] The system which ge nerated this result transmit fabiano reference range : <=37. The reference range was not used to interpr et this result as aleks l/abnormal. [place] 245222-10-16 09:37:00 Test Item Value Reference Range Interpretation Comments Alk Phos (test code = Alk Phos) 118 39-136 [place] [address]-10-16 09:37:00 Test Item Value Reference Range Interpretation Comments Bili Total (test code = Bili Total) 0.4 0.2-1.3 [place] [address]-10-16 09:37:00 Test Item Value Reference Range Interpretation Comments AGAP (test code = AGAP) 11.7 10.0-20.0 [place] [address]-10-16 09:37:00 Test Item Value Reference Range Interpretation Comments B/C Ratio (test code = B/C Ratio) 19 1 6-25 [place] [address]-10-16 09:37:00 Test Item Value Reference Range Interpretation Comments Globulin (test code = Globulin) 4.5 2.7-4.2 [place] 245222-10-16 09:37:00 Test Item Value Reference Range Interpretation Comments A/G Ratio (test code = A/G Ratio) 0.7 1 0.7-1.6 [place] [address]-10-16 09:37:00 Test Item Value Reference Range Interpretation Comments eGFR (test code = eGFR) 105 [place] 245222-10-16 09:37:00 Test Item Value Reference Range Interpretation Comments Phosphorus (test code = Phosphorus) 3.7 2.5-4.5 [place] [address]-10-16 09:37:00 Test Item Value Reference Range Interpretation Comments Magnesium Lvl (test code = Magnesium 2.1 1.8-2.4 Lvl) [place] [address]-10-16 09:37:00 Test Item Value Reference Range Interpretation Comments Procalcitonin Lvl (test no gt See_Comment [Au tomated message] code = Procalcitonin Lvl) e system which generated this result transmitted ref erence range: <=0.10. The reference range was not used to interpr et this result as normal/abnormal . [place] 495052-10-16 09:37:00 Test Item Value Reference Range Interpretation Comments WBC (test code = WBC) 15.7 3.7-10.4 [facility] DistrictTpcoikaVTPHABTCQE3940-30-09 09:37:00 Test Item Value Reference Range Interpretation Comments RBC (test code = RBC) 4.10 4.20-5.40 [facility] DistrictBnmuondYEBKJNQSOR5562-72-40 09:37:00 Test Item Value Reference Range Interpretation Comments Hgb (test code = Hgb) 10.7 12.0-16.0 [place] 495052-10-16 09:37:00 Test Item Value Reference Range Interpretation Comments Hct (test code = Hct) 32.8 36.0-48.0 [facility] DistrictJrlcctkDDKEYJZDLX7029-32-06 09:37:00 Test Item Value Reference Range Interpretation Comments MCV (test code = MCV) 80.0 80.0-98.0 [facility] DistrictFrvfqujZACLFBZQEZ0842-18-88 09:37:00 Test Item Value Reference Range Interpretation Comments MCH (test code = MCH) 26.1 pg 27.0-31.0 [facility] DistrictDzxyzxsPGQDCYYOCM4898-01-63 09:37:00 Test Item Value Reference Range Interpretation Comments MCHC (test code = MCHC) 32.6 32.0-36.0 [facility] DistrictYdoejqnAZWKGKDPWF7209-87-86 09:37:00 Test Item Value Reference Range Interpretation Comments RDW (test code = RDW) 16.4 11.5-14.5 [facility] DistrictRmgxahpZAFDMYXOGJ2657-68-28 09:37:00 Test Item Value Reference Range Interpretation Comments Platelet (test code = Platelet) 362 133-450 [facility] DistrictQxrycnuFLWMJBYNEE7024-97-13 09:37:00 Test Item Value Reference Range Interpretation Comments MPV (test code = MPV) 8.1 7.4-10.4 [facility] DistrictPzqmvqcPDWTAOQSJD0250-30-44 09:37:00 Test Item Value Reference Range Interpretation Comments Segs (test code = Segs) 76.4 45.0-75.0 [place] [address]-10-16 09:37:00 Test Item Value Reference Range Interpretation Comments Lymphocytes (test code = Lymphocytes) 13.3 20.0-40.0 [place] 495052-10-16 09:37:00 Test Item Value Reference Range Interpretation Comments Monocytes (test code = Monocytes) 5.7 2.0-12.0 [place] [address]-10-16 09:37:00 Test Item Value Reference Range Interpretation Comments Eosinophils (test code = 3.7 See_Comment [A utomated message] The Eosinophils) system which ge nerated this result tra nsmitted reference range : <=4.0. The reference r quynh was not used to int erpret this result as normal/abnormal . [facility] DistrictOikckmkUTPJYKGSPR1227-12-74 09:37:00 Test Item Value Reference Range Interpretation Comments Basophils (test code = 0.9 See_Comment [Aut omated message] The Basophils) system which ge nerated this result tra nsmitted reference range : <=1.0. The reference r quynh was not used to int erpret this result as normal/abnormal . [place] 495052-10-16 09:37:00 Test Item Value Reference Range Interpretation Comments Neutrophils # (test code = Neutrophils 12.0 1.5-8.1 #) [place] 495052-10-16 09:37:00 Test Item Value Reference Range Interpretation Comments Lymphocytes # (test code = Lymphocytes 2.1 1.0-5.5 #) [place] [address]-10-16 09:37:00 Test Item Value Reference Range Interpretation Comments Monocytes # (test code 0.9 See_Comment [Aut omated message] The = Monocytes #) system which generated this result tra nsmitted reference range : <=0.8. The reference r quynh was not used to int erpret this result as normal/abnormal . [facility] DistrictIergjqoYFYXPKXCHP3095-03-46 09:37:00 Test Item Value Reference Range Interpretation Comments Eosinophils # (test code 0.6 See_Comment [A utomated message] The = Eosinophils #) system whic h generated this result tra nsmitted reference range : <=0.5. The reference r quynh was not used to int erpret this result as normal/abnormal . [place] [address]-10-16 09:37:00 Test Item Value Reference Range Interpretation Comments Basophils # (test code 0.1 See_Comment [Aut omated message] The = Basophils #) system which generated this result tra nsmitted reference range : <=0.2. The reference r quynh was not used to int erpret this result as normal/abnormal . [place] 245222-10-16 09:37:00 Test Item Value Reference Range Interpretation Comments Procalcitonin Lvl (test no gt See_Comment [Au tomated message] code = Procalcitonin Lvl) e system which generated this result transmitted ref erence range: <=0.10. The reference range was not used to interpr et this result as normal/abnormal . [place] 245222-10-16 09:37:00 Test Item Value Reference Range Interpretation Comments Glucose Lvl (test code = Glucose Lvl) 103 70-99 [facility] [id number] 09:37:00 Test Item Value Reference Range Interpretation Comments BUN (test code = BUN) 13 7-22 [place] 245222-10-16 09:37:00 Test Item Value Reference Range Interpretation Comments Creatinine Lvl (test code = Creatinine 0.67 0.50-1.40 Lvl) [facility]2022-10-16 09:37:00 Test Item Value Reference Range Interpretation Comments Sodium Lvl (test code = Sodium Lvl) 138 135-145 [facility] [id number] 09:37:00 Test Item Value Reference Range Interpretation Comments Potassium Lvl (test code = Potassium 3.7 3.5-5.1 Lvl) [facility] [id number] 09:37:00 Test Item Value Reference Range Interpretation Comments Chloride Lvl (test code = Chloride Lvl) 98 95-109 [facility] [id number] 09:37:00 Test Item Value Reference Range Interpretation Comments CO2 (test code = CO2) 32 24-32 [facility] [id number] 09:37:00 Test Item Value Reference Range Interpretation Comments Calcium Lvl (test code = Calcium Lvl) 9.3 8.5-10.5 [facility] [id number] 09:37:00 Test Item Value Reference Range Interpretation Comments Total Protein (test code = Total 7.5 6.4-8.4 Protein) [facility]2022-10-16 09:37:00 Test Item Value Reference Range Interpretation Comments Albumin Lvl (test code = Albumin Lvl) 3.0 3.5-5.0 [facility] [id number] 09:37:00 Test Item Value Reference Range Interpretation Comments ALT (test code = ALT) 18 See_Comment [Auto mated message] The system which ge nerated this result transmit fabinao reference range : <=65. The reference range was not used to interpr et this result as aleks l/abnormal. [facility] [employer] [id number] 09:37:00 Test Item Value Reference Range Interpretation Comments AST (test code = AST) 6 See_Comment [Auto mated message] The system which ge nerated this result transmit fabiano reference range : <=37. The reference range was not used to interpr et this result as aleks l/abnormal. [facility] [employer] [id number] 09:37:00 Test Item Value Reference Range Interpretation Comments Alk Phos (test code = Alk Phos) 118 39-136 [facility] [employer] [id number] 09:37:00 Test Item Value Reference Range Interpretation Comments Bili Total (test code = Bili Total) 0.4 0.2-1.3 [facility] [employer] [id number] 09:37:00 Test Item Value Reference Range Interpretation Comments AGAP (test code = AGAP) 11.7 10.0-20.0 [facility] [employer] [id number] 09:37:00 Test Item Value Reference Range Interpretation Comments B/C Ratio (test code = B/C Ratio) 19 1 6-25 [facility] [employer] [id number] 09:37:00 Test Item Value Reference Range Interpretation Comments Globulin (test code = Globulin) 4.5 2.7-4.2 [facility] [employer] [id number] 09:37:00 Test Item Value Reference Range Interpretation Comments A/G Ratio (test code = A/G Ratio) 0.7 1 0.7-1.6 [facility] [employer] [id number] 09:37:00 Test Item Value Reference Range Interpretation Comments eGFR (test code = eGFR) 105 [facility] [employer] [id number] 09:37:00 Test Item Value Reference Range Interpretation Comments Phosphorus (test code = Phosphorus) 3.7 2.5-4.5 [facility] [employer] [id number] 09:37:00 Test Item Value Reference Range Interpretation Comments Magnesium Lvl (test code = Magnesium 2.1 1.8-2.4 Lvl) [facility]umwnsjXACOQNPHU4835-94-21 09:37:00 Test Item Value Reference Range Interpretation Comments Procalcitonin Lvl (test no gt See_Comment [Au tomated message] code = Procalcitonin Lvl) Th e system which generated this result transmitted ref erence range: <=0.10. The reference range was not used to interpr et this result as normal/abnormal . [facility] DistrictPghtpuuQMCQYXUJRB6415-59-12 09:37:00 Test Item Value Reference Range Interpretation Comments WBC (test code = WBC) 15.7 3.7-10.4 [facility] DistrictKpnmwejOJPYQLDRYQ3155-80-40 09:37:00 Test Item Value Reference Range Interpretation Comments RBC (test code = RBC) 4.10 4.20-5.40 [facility] DistrictCsbmixoJYRCYISWCI3524-12-49 09:37:00 Test Item Value Reference Range Interpretation Comments Hgb (test code = Hgb) 10.7 12.0-16.0 [facility] DistrictDvzywzrNFGDMXNLSE4763-68-68 09:37:00 Test Item Value Reference Range Interpretation Comments Hct (test code = Hct) 32.8 36.0-48.0 [facility] DistrictJvgpitxIDYBYSJFLU3168-68-43 09:37:00 Test Item Value Reference Range Interpretation Comments MCV (test code = MCV) 80.0 80.0-98.0 [facility] DistrictWeihwfgUIDCFKBYEM0649-95-47 09:37:00 Test Item Value Reference Range Interpretation Comments MCH (test code = MCH) 26.1 pg 27.0-31.0 [facility] DistrictKgtbqkcSMDLFYCOKE8601-94-53 09:37:00 Test Item Value Reference Range Interpretation Comments MCHC (test code = MCHC) 32.6 32.0-36.0 [facility] DistrictAdgxgwlCPZSLBSNCC5797-47-08 09:37:00 Test Item Value Reference Range Interpretation Comments RDW (test code = RDW) 16.4 11.5-14.5 [facility] DistrictSeokepfNGZCKSFEJK9219-33-55 09:37:00 Test Item Value Reference Range Interpretation Comments Platelet (test code = Platelet) 362 133-450 [facility] DistrictGvfafpnALCJKJCJTR2380-00-33 09:37:00 Test Item Value Reference Range Interpretation Comments MPV (test code = MPV) 8.1 7.4-10.4 [facility] DistrictDughluvLXHCTRVCXT0468-61-39 09:37:00 Test Item Value Reference Range Interpretation Comments Segs (test code = Segs) 76.4 45.0-75.0 [place] [address]-10-16 09:37:00 Test Item Value Reference Range Interpretation Comments Lymphocytes (test code = Lymphocytes) 13.3 20.0-40.0 [place] [address]-10-16 09:37:00 Test Item Value Reference Range Interpretation Comments Monocytes (test code = Monocytes) 5.7 2.0-12.0 [place] [address]-10-16 09:37:00 Test Item Value Reference Range Interpretation Comments Eosinophils (test code = 3.7 See_Comment [A utomated message] The Eosinophils) system which ge nerated this result tra nsmitted reference range : <=4.0. The reference r quynh was not used to int erpret this result as normal/abnormal . [place] [address]-10-16 09:37:00 Test Item Value Reference Range Interpretation Comments Basophils (test code = 0.9 See_Comment [Aut omated message] The Basophils) system which ge nerated this result tra nsmitted reference range : <=1.0. The reference r quynh was not used to int erpret this result as normal/abnormal . [place] [address]-10-16 09:37:00 Test Item Value Reference Range Interpretation Comments Neutrophils # (test code = Neutrophils 12.0 1.5-8.1 #) [place] [address]-10-16 09:37:00 Test Item Value Reference Range Interpretation Comments Lymphocytes # (test code = Lymphocytes 2.1 1.0-5.5 #) [place] [address]-10-16 09:37:00 Test Item Value Reference Range Interpretation Comments Monocytes # (test code 0.9 See_Comment [Aut omated message] The = Monocytes #) system which generated this result tra nsmitted reference range : <=0.8. The reference r quynh was not used to int erpret this result as normal/abnormal . [place] [address]-10-16 09:37:00 Test Item Value Reference Range Interpretation Comments Eosinophils # (test code 0.6 See_Comment [A utomated message] The = Eosinophils #) system whic h generated this result tra nsmitted reference range : <=0.5. The reference r quynh was not used to int erpret this result as normal/abnormal . [id number] 09:37:00 Test Item Value Reference Range Interpretation Comments Basophils # (test code 0.1 See_Comment [Aut omated message] The = Basophils #) system which generated this result tra nsmitted reference range : <=0.2. The reference r quynh was not used to int erpret this result as normal/abnormal . [place] 245222-10-16 09:37:00 Test Item Value Reference Range Interpretation Comments Procalcitonin Lvl (test no gt See_Comment [Au tomated message] code = Procalcitonin Lvl) Th e system which generated this result transmitted ref erence range: <=0.10. The reference range was not used to interpr et this result as normal/abnormal . [place] 245222-10-16 09:37:00 Test Item Value Reference Range Interpretation Comments Glucose Lvl (test code = Glucose Lvl) 103 70-99 [place] 245222-10-16 09:37:00 Test Item Value Reference Range Interpretation Comments BUN (test code = BUN) 13 7-22 [place] [address]-10-16 09:37:00 Test Item Value Reference Range Interpretation Comments Creatinine Lvl (test code = Creatinine 0.67 0.50-1.40 Lvl) [place] [address]-10-16 09:37:00 Test Item Value Reference Range Interpretation Comments Sodium Lvl (test code = Sodium Lvl) 138 135-145 [place] [address]-10-16 09:37:00 Test Item Value Reference Range Interpretation Comments Potassium Lvl (test code = Potassium 3.7 3.5-5.1 Lvl) [place] [address]-10-16 09:37:00 Test Item Value Reference Range Interpretation Comments Chloride Lvl (test code = Chloride Lvl) 98 95-109 [place] 245222-10-16 09:37:00 Test Item Value Reference Range Interpretation Comments CO2 (test code = CO2) 32 24-32 [place] 245222-10-16 09:37:00 Test Item Value Reference Range Interpretation Comments Calcium Lvl (test code = Calcium Lvl) 9.3 8.5-10.5 [facility] [id number] 09:37:00 Test Item Value Reference Range Interpretation Comments Total Protein (test code = Total 7.5 6.4-8.4 Protein) [place] 245222-10-16 09:37:00 Test Item Value Reference Range Interpretation Comments Albumin Lvl (test code = Albumin Lvl) 3.0 3.5-5.0 [facility] [id number] 09:37:00 Test Item Value Reference Range Interpretation Comments ALT (test code = ALT) 18 See_Comment [Auto mated message] The system which ge nerated this result transmit fabiano reference range : <=65. The reference range was not used to interpr et this result as aleks l/abnormal. [facility] [id number] 09:37:00 Test Item Value Reference Range Interpretation Comments AST (test code = AST) 6 See_Comment [Auto mated message] The system which ge nerated this result transmit fabiano reference range : <=37. The reference range was not used to interpr et this result as aleks l/abnormal. [facility] [id number] 09:37:00 Test Item Value Reference Range Interpretation Comments Alk Phos (test code = Alk Phos) 118 39-136 [facility] [id number] 09:37:00 Test Item Value Reference Range Interpretation Comments Bili Total (test code = Bili Total) 0.4 0.2-1.3 [facility] [id number] 09:37:00 Test Item Value Reference Range Interpretation Comments AGAP (test code = AGAP) 11.7 10.0-20.0 [facility] [id number] 09:37:00 Test Item Value Reference Range Interpretation Comments B/C Ratio (test code = B/C Ratio) 19 1 6-25 [facility] [id number] 09:37:00 Test Item Value Reference Range Interpretation Comments Globulin (test code = Globulin) 4.5 2.7-4.2 [facility] [id number] 09:37:00 Test Item Value Reference Range Interpretation Comments A/G Ratio (test code = A/G Ratio) 0.7 1 0.7-1.6 [place] [address]-10-16 09:37:00 Test Item Value Reference Range Interpretation Comments eGFR (test code = eGFR) 105 [place] 245222-10-16 09:37:00 Test Item Value Reference Range Interpretation Comments Phosphorus (test code = Phosphorus) 3.7 2.5-4.5 [place] [address]-10-16 09:37:00 Test Item Value Reference Range Interpretation Comments Magnesium Lvl (test code = Magnesium 2.1 1.8-2.4 Lvl) [place] [address]-10-16 09:37:00 Test Item Value Reference Range Interpretation Comments Procalcitonin Lvl (test no gt See_Comment [Au tomated message] code = Procalcitonin Lvl) e system which generated this result transmitted ref erence range: <=0.10. The reference range was not used to interpr et this result as normal/abnormal . [place] 495052-10-16 09:37:00 Test Item Value Reference Range Interpretation Comments WBC (test code = WBC) 15.7 3.7-10.4 [place] [address]-10-16 09:37:00 Test Item Value Reference Range Interpretation Comments RBC (test code = RBC) 4.10 4.20-5.40 [place] [address]-10-16 09:37:00 Test Item Value Reference Range Interpretation Comments Hgb (test code = Hgb) 10.7 12.0-16.0 [place] [address]-10-16 09:37:00 Test Item Value Reference Range Interpretation Comments Hct (test code = Hct) 32.8 36.0-48.0 [place] [address]-10-16 09:37:00 Test Item Value Reference Range Interpretation Comments MCV (test code = MCV) 80.0 80.0-98.0 [place] [address]-10-16 09:37:00 Test Item Value Reference Range Interpretation Comments MCH (test code = MCH) 26.1 pg 27.0-31.0 [place] [address]-10-16 09:37:00 Test Item Value Reference Range Interpretation Comments MCHC (test code = MCHC) 32.6 32.0-36.0 [place] [address]-10-16 09:37:00 Test Item Value Reference Range Interpretation Comments RDW (test code = RDW) 16.4 11.5-14.5 [place] 495052-10-16 09:37:00 Test Item Value Reference Range Interpretation Comments Platelet (test code = Platelet) 362 133-450 [place] 495052-10-16 09:37:00 Test Item Value Reference Range Interpretation Comments MPV (test code = MPV) 8.1 7.4-10.4 [place] 495052-10-16 09:37:00 Test Item Value Reference Range Interpretation Comments Segs (test code = Segs) 76.4 45.0-75.0 [place] [address]-10-16 09:37:00 Test Item Value Reference Range Interpretation Comments Lymphocytes (test code = Lymphocytes) 13.3 20.0-40.0 [place] [address]-10-16 09:37:00 Test Item Value Reference Range Interpretation Comments Monocytes (test code = Monocytes) 5.7 2.0-12.0 [place] 495052-10-16 09:37:00 Test Item Value Reference Range Interpretation Comments Eosinophils (test code = 3.7 See_Comment [A utomated message] The Eosinophils) system which ge nerated this result tra nsmitted reference range : <=4.0. The reference r quynh was not used to int erpret this result as normal/abnormal . [place] [address]-10-16 09:37:00 Test Item Value Reference Range Interpretation Comments Basophils (test code = 0.9 See_Comment [Aut omated message] The Basophils) system which ge nerated this result tra nsmitted reference range : <=1.0. The reference r quynh was not used to int erpret this result as normal/abnormal . [place] 495052-10-16 09:37:00 Test Item Value Reference Range Interpretation Comments Neutrophils # (test code = Neutrophils 12.0 1.5-8.1 #) [place] 495052-10-16 09:37:00 Test Item Value Reference Range Interpretation Comments Lymphocytes # (test code = Lymphocytes 2.1 1.0-5.5 #) [place] [address]-10-16 09:37:00 Test Item Value Reference Range Interpretation Comments Monocytes # (test code 0.9 See_Comment [Aut omated message] The = Monocytes #) system which generated this result tra nsmitted reference range : <=0.8. The reference r quynh was not used to int erpret this result as normal/abnormal . [place] [address]-10-16 09:37:00 Test Item Value Reference Range Interpretation Comments Eosinophils # (test code 0.6 See_Comment [A utomated message] The = Eosinophils #) system whic h generated this result tra nsmitted reference range : <=0.5. The reference r quynh was not used to int erpret this result as normal/abnormal . [place] [address]-10-16 09:37:00 Test Item Value Reference Range Interpretation Comments Basophils # (test code 0.1 See_Comment [Aut omated message] The = Basophils #) system which generated this result tra nsmitted reference range : <=0.2. The reference r quynh was not used to int erpret this result as normal/abnormal . [facility] [id number] 09:37:00 Test Item Value Reference Range Interpretation Comments Procalcitonin Lvl (test no gt See_Comment [Au tomated message] code = Procalcitonin Lvl) Th e system which generated this result transmitted ref erence range: <=0.10. The reference range was not used to interpr et this result as normal/abnormal . [place] [address]-10-16 09:37:00 Test Item Value Reference Range Interpretation Comments Glucose Lvl (test code = Glucose Lvl) 103 70-99 [facility] [id number] 09:37:00 Test Item Value Reference Range Interpretation Comments BUN (test code = BUN) 13 7-22 [facility] [id number] 09:37:00 Test Item Value Reference Range Interpretation Comments Creatinine Lvl (test code = Creatinine 0.67 0.50-1.40 Lvl) [place] [address]-10-16 09:37:00 Test Item Value Reference Range Interpretation Comments Sodium Lvl (test code = Sodium Lvl) 138 135-145 [facility] [id number] 09:37:00 Test Item Value Reference Range Interpretation Comments Potassium Lvl (test code = Potassium 3.7 3.5-5.1 Lvl) [facility] [place] [id number] 09:37:00 Test Item Value Reference Range Interpretation Comments Chloride Lvl (test code = Chloride Lvl) 98 95-109 [place] 245222-10-16 09:37:00 Test Item Value Reference Range Interpretation Comments CO2 (test code = CO2) 32 24-32 [place] 245222-10-16 09:37:00 Test Item Value Reference Range Interpretation Comments Calcium Lvl (test code = Calcium Lvl) 9.3 8.5-10.5 [place] [address]-10-16 09:37:00 Test Item Value Reference Range Interpretation Comments Total Protein (test code = Total 7.5 6.4-8.4 Protein) [place] 245222-10-16 09:37:00 Test Item Value Reference Range Interpretation Comments Albumin Lvl (test code = Albumin Lvl) 3.0 3.5-5.0 [place] 245222-10-16 09:37:00 Test Item Value Reference Range Interpretation Comments ALT (test code = ALT) 18 See_Comment [Auto mated message] The system which ge nerated this result transmit fabiano reference range : <=65. The reference range was not used to interpr et this result as aleks l/abnormal. [facility] [id number] 09:37:00 Test Item Value Reference Range Interpretation Comments AST (test code = AST) 6 See_Comment [Auto mated message] The system which ge nerated this result transmit fabiano reference range : <=37. The reference range was not used to interpr et this result as aleks l/abnormal. [facility] [id number] 09:37:00 Test Item Value Reference Range Interpretation Comments Alk Phos (test code = Alk Phos) 118 39-136 [facility] [id number] 09:37:00 Test Item Value Reference Range Interpretation Comments Bili Total (test code = Bili Total) 0.4 0.2-1.3 [place] [address]-10-16 09:37:00 Test Item Value Reference Range Interpretation Comments AGAP (test code = AGAP) 11.7 10.0-20.0 [facility] [id number] 09:37:00 Test Item Value Reference Range Interpretation Comments B/C Ratio (test code = B/C Ratio) 19 1 6-25 [place] [address]-10-16 09:37:00 Test Item Value Reference Range Interpretation Comments Globulin (test code = Globulin) 4.5 2.7-4.2 [place] [address]-10-16 09:37:00 Test Item Value Reference Range Interpretation Comments A/G Ratio (test code = A/G Ratio) 0.7 1 0.7-1.6 [place] [address]-10-16 09:37:00 Test Item Value Reference Range Interpretation Comments eGFR (test code = eGFR) 105 [place] [address]-10-16 09:37:00 Test Item Value Reference Range Interpretation Comments Phosphorus (test code = Phosphorus) 3.7 2.5-4.5 [place] 245222-10-16 09:37:00 Test Item Value Reference Range Interpretation Comments Magnesium Lvl (test code = Magnesium 2.1 1.8-2.4 Lvl) [place] [address]-10-16 09:37:00 Test Item Value Reference Range Interpretation Comments Procalcitonin Lvl (test no gt See_Comment [Au tomated message] code = Procalcitonin Lvl) Th e system which generated this result transmitted ref erence range: <=0.10. The reference range was not used to interpr et this result as normal/abnormal . [place] [address]-10-16 09:37:00 Test Item Value Reference Range Interpretation Comments WBC (test code = WBC) 15.7 3.7-10.4 [place] [address]-10-16 09:37:00 Test Item Value Reference Range Interpretation Comments RBC (test code = RBC) 4.10 4.20-5.40 [place] [address]-10-16 09:37:00 Test Item Value Reference Range Interpretation Comments Hgb (test code = Hgb) 10.7 12.0-16.0 [place] [address]-10-16 09:37:00 Test Item Value Reference Range Interpretation Comments Hct (test code = Hct) 32.8 36.0-48.0 [place] [address]-10-16 09:37:00 Test Item Value Reference Range Interpretation Comments MCV (test code = MCV) 80.0 80.0-98.0 [facility] D[id number] 09:37:00 Test Item Value Reference Range Interpretation Comments MCH (test code = MCH) 26.1 pg 27.0-31.0 [facility] D[id number] 09:37:00 Test Item Value Reference Range Interpretation Comments MCHC (test code = MCHC) 32.6 32.0-36.0 [facility] DistrictDeqfndpYKRPMVVCOF5630-80-72 09:37:00 Test Item Value Reference Range Interpretation Comments RDW (test code = RDW) 16.4 11.5-14.5 [facility] Dis[id number] 09:37:00 Test Item Value Reference Range Interpretation Comments Platelet (test code = Platelet) 362 133-450 [facility] Di[id number] 09:37:00 Test Item Value Reference Range Interpretation Comments MPV (test code = MPV) 8.1 7.4-10.4 [facility] DistrictYvjgfcnCYWRNKCEKC7560-01-77 09:37:00 Test Item Value Reference Range Interpretation Comments Segs (test code = Segs) 76.4 45.0-75.0 [facility] DistrictTseemfgJIVCWYGUPF1075-18-58 09:37:00 Test Item Value Reference Range Interpretation Comments Lymphocytes (test code = Lymphocytes) 13.3 20.0-40.0 [facility] DistrictNdrorgyDTNZSIUCJQ7166-85-95 09:37:00 Test Item Value Reference Range Interpretation Comments Monocytes (test code = Monocytes) 5.7 2.0-12.0 [facility] DistrictHllxfonAOLKIIIQUR6731-33-64 09:37:00 Test Item Value Reference Range Interpretation Comments Eosinophils (test code = 3.7 See_Comment [A utomated message] The Eosinophils) system which ge nerated this result tra nsmitted reference range : <=4.0. The reference r quynh was not used to int erpret this result as normal/abnormal . [facility] DistrictFftluveAWRNEVLBYK7820-10-62 09:37:00 Test Item Value Reference Range Interpretation Comments Basophils (test code = 0.9 See_Comment [Aut omated message] The Basophils) system which ge nerated this result tra nsmitted reference range : <=1.0. The reference r quynh was not used to int erpret this result as normal/abnormal . [place] [address]-10-16 09:37:00 Test Item Value Reference Range Interpretation Comments Neutrophils # (test code = Neutrophils 12.0 1.5-8.1 #) [place] [address]-10-16 09:37:00 Test Item Value Reference Range Interpretation Comments Lymphocytes # (test code = Lymphocytes 2.1 1.0-5.5 #) [place] [address]-10-16 09:37:00 Test Item Value Reference Range Interpretation Comments Monocytes # (test code 0.9 See_Comment [Aut omated message] The = Monocytes #) system which generated this result tra nsmitted reference range : <=0.8. The reference r quynh was not used to int erpret this result as normal/abnormal . [place] [address]-10-16 09:37:00 Test Item Value Reference Range Interpretation Comments Eosinophils # (test code 0.6 See_Comment [A utomated message] The = Eosinophils #) system whic h generated this result tra nsmitted reference range : <=0.5. The reference r quynh was not used to int erpret this result as normal/abnormal . [place] [address]-10-16 09:37:00 Test Item Value Reference Range Interpretation Comments Basophils # (test code 0.1 See_Comment [Aut omated message] The = Basophils #) system which generated this result tra nsmitted reference range : <=0.2. The reference r quynh was not used to int erpret this result as normal/abnormal . [place] [address]-10-16 09:37:00 Test Item Value Reference Range Interpretation Comments Procalcitonin Lvl (test no gt See_Comment [Au tomated message] code = Procalcitonin Lvl) Th e system which generated this result transmitted ref erence range: <=0.10. The reference range was not used to interpr et this result as normal/abnormal . [place] [address]-10-16 09:37:00 Test Item Value Reference Range Interpretation Comments Glucose Lvl (test code = Glucose Lvl) 103 70-99 [place] 245222-10-16 09:37:00 Test Item Value Reference Range Interpretation Comments BUN (test code = BUN) 13 7-22 [place] [address]-10-16 09:37:00 Test Item Value Reference Range Interpretation Comments Creatinine Lvl (test code = Creatinine 0.67 0.50-1.40 Lvl) [place] [address]-10-16 09:37:00 Test Item Value Reference Range Interpretation Comments Sodium Lvl (test code = Sodium Lvl) 138 135-145 [place] 245222-10-16 09:37:00 Test Item Value Reference Range Interpretation Comments Potassium Lvl (test code = Potassium 3.7 3.5-5.1 Lvl) [place] [address]-10-16 09:37:00 Test Item Value Reference Range Interpretation Comments Chloride Lvl (test code = Chloride Lvl) 98 95-109 [place] [address]-10-16 09:37:00 Test Item Value Reference Range Interpretation Comments CO2 (test code = CO2) 32 24-32 [place] [address]-10-16 09:37:00 Test Item Value Reference Range Interpretation Comments Calcium Lvl (test code = Calcium Lvl) 9.3 8.5-10.5 [place] [address]-10-16 09:37:00 Test Item Value Reference Range Interpretation Comments Total Protein (test code = Total 7.5 6.4-8.4 Protein) [place] [address]-10-16 09:37:00 Test Item Value Reference Range Interpretation Comments Albumin Lvl (test code = Albumin Lvl) 3.0 3.5-5.0 [place] [address]-10-16 09:37:00 Test Item Value Reference Range Interpretation Comments ALT (test code = ALT) 18 See_Comment [Auto mated message] The system which ge nerated this result transmit fabiano reference range : <=65. The reference range was not used to interpr et this result as alkes l/abnormal. [place] [address]-10-16 09:37:00 Test Item Value Reference Range Interpretation Comments AST (test code = AST) 6 See_Comment [Auto mated message] The system which ge nerated this result transmit fabiano reference range : <=37. The reference range was not used to interpr et this result as aleks l/abnormal. [place] [address]-10-16 09:37:00 Test Item Value Reference Range Interpretation Comments Alk Phos (test code = Alk Phos) 118 39-136 [place] 245222-10-16 09:37:00 Test Item Value Reference Range Interpretation Comments Bili Total (test code = Bili Total) 0.4 0.2-1.3 [place] 245222-10-16 09:37:00 Test Item Value Reference Range Interpretation Comments AGAP (test code = AGAP) 11.7 10.0-20.0 [place] [address]-10-16 09:37:00 Test Item Value Reference Range Interpretation Comments B/C Ratio (test code = B/C Ratio) 19 1 6-25 [place] [address]-10-16 09:37:00 Test Item Value Reference Range Interpretation Comments Globulin (test code = Globulin) 4.5 2.7-4.2 [place] 245222-10-16 09:37:00 Test Item Value Reference Range Interpretation Comments A/G Ratio (test code = A/G Ratio) 0.7 1 0.7-1.6 [place] [address]-10-16 09:37:00 Test Item Value Reference Range Interpretation Comments eGFR (test code = eGFR) 105 [place] 245222-10-16 09:37:00 Test Item Value Reference Range Interpretation Comments Phosphorus (test code = Phosphorus) 3.7 2.5-4.5 [place] 245222-10-16 09:37:00 Test Item Value Reference Range Interpretation Comments Magnesium Lvl (test code = Magnesium 2.1 1.8-2.4 Lvl) [place] 774022-10-16 09:37:00 Test Item Value Reference Range Interpretation Comments Procalcitonin Lvl (test no gt See_Comment [Au tomated message] code = Procalcitonin Lvl) e system which generated this result transmitted ref erence range: <=0.10. The reference range was not used to interpr et this result as normal/abnormal . [facility] DistrictGbmaoheNFJAHUMLUJ5740-61-41 09:37:00 Test Item Value Reference Range Interpretation Comments WBC (test code = WBC) 15.7 3.7-10.4 [place] 495052-10-16 09:37:00 Test Item Value Reference Range Interpretation Comments RBC (test code = RBC) 4.10 4.20-5.40 [place] 495052-10-16 09:37:00 Test Item Value Reference Range Interpretation Comments Hgb (test code = Hgb) 10.7 12.0-16.0 [place] 495052-10-16 09:37:00 Test Item Value Reference Range Interpretation Comments Hct (test code = Hct) 32.8 36.0-48.0 [place] 495052-10-16 09:37:00 Test Item Value Reference Range Interpretation Comments MCV (test code = MCV) 80.0 80.0-98.0 [place] 495052-10-16 09:37:00 Test Item Value Reference Range Interpretation Comments MCH (test code = MCH) 26.1 pg 27.0-31.0 [facility] DistrictWatujvwTBRBIVPQSW1806-17-99 09:37:00 Test Item Value Reference Range Interpretation Comments MCHC (test code = MCHC) 32.6 32.0-36.0 [facility] DistrictQznzqnvRXMTMIEAOH2306-78-21 09:37:00 Test Item Value Reference Range Interpretation Comments RDW (test code = RDW) 16.4 11.5-14.5 [place] 495052-10-16 09:37:00 Test Item Value Reference Range Interpretation Comments Platelet (test code = Platelet) 362 133-450 [facility] DistrictGitjnkbORFBXBNPFE4730-27-68 09:37:00 Test Item Value Reference Range Interpretation Comments MPV (test code = MPV) 8.1 7.4-10.4 [place] 495052-10-16 09:37:00 Test Item Value Reference Range Interpretation Comments Segs (test code = Segs) 76.4 45.0-75.0 [place] 495052-10-16 09:37:00 Test Item Value Reference Range Interpretation Comments Lymphocytes (test code = Lymphocytes) 13.3 20.0-40.0 [place] 495052-10-16 09:37:00 Test Item Value Reference Range Interpretation Comments Monocytes (test code = Monocytes) 5.7 2.0-12.0 [place] 495052-10-16 09:37:00 Test Item Value Reference Range Interpretation Comments Eosinophils (test code = 3.7 See_Comment [A utomated message] The Eosinophils) system which ge nerated this result tra nsmitted reference range : <=4.0. The reference r quynh was not used to int erpret this result as normal/abnormal . [place] 495052-10-16 09:37:00 Test Item Value Reference Range Interpretation Comments Basophils (test code = 0.9 See_Comment [Aut omated message] The Basophils) system which ge nerated this result tra nsmitted reference range : <=1.0. The reference r quynh was not used to int erpret this result as normal/abnormal . [facility]nb[facility]qxBVICRAPIBZ0537[facility]96-90 09:37:00 Test Item Value Reference Range Interpretation Comments Neutrophils # (test code = Neutrophils 12.0 1.5-8.1 #) [place] 495052-10-16 09:37:00 Test Item Value Reference Range Interpretation Comments Lymphocytes # (test code = Lymphocytes 2.1 1.0-5.5 #) [place] [address]-10-16 09:37:00 Test Item Value Reference Range Interpretation Comments Monocytes # (test code 0.9 See_Comment [Aut omated message] The = Monocytes #) system which generated this result tra nsmitted reference range : <=0.8. The reference r quynh was not used to int erpret this result as normal/abnormal . [facility] DistrictUsviihqFHMUVSNZZJ4797-16-63 09:37:00 Test Item Value Reference Range Interpretation Comments Eosinophils # (test code 0.6 See_Comment [A utomated message] The = Eosinophils #) system [facility] h generated this result tra nsmitted reference range : <=0.5. The reference r quynh was not used to int erpret this result as normal/abnormal . [facility] DistrictAvccoomZZTKUFBHXU1451-38-10 09:37:00 Test Item Value Reference Range Interpretation Comments Basophils # (test code 0.1 See_Comment [Aut omated message] The = Basophils #) system which generated this result tra nsmitted reference range : <=0.2. The reference r quynh was not used to int erpret this result as normal/abnormal . [facility]2022-10-16 09:37:00 Test Item Value Reference Range Interpretation Comments Procalcitonin Lvl (test no gt See_Comment [Au tomated message] code = Procalcitonin Lvl) Th e system which generated this result transmitted ref erence range: <=0.10. The reference range was not used to interpr et this result as normal/abnormal . [place] [address]-10-16 09:37:00 Test Item Value Reference Range Interpretation Comments Glucose Lvl (test code = Glucose Lvl) 103 70-99 [place] [address]-10-16 09:37:00 Test Item Value Reference Range Interpretation Comments BUN (test code = BUN) 13 7-22 [place] [address]-10-16 09:37:00 Test Item Value Reference Range Interpretation Comments Creatinine Lvl (test code = Creatinine 0.67 0.50-1.40 Lvl) [place] [address]-10-16 09:37:00 Test Item Value Reference Range Interpretation Comments Sodium Lvl (test code = Sodium Lvl) 138 135-145 [place] 245222-10-16 09:37:00 Test Item Value Reference Range Interpretation Comments Potassium Lvl (test code = Potassium 3.7 3.5-5.1 Lvl) [place] 245222-10-16 09:37:00 Test Item Value Reference Range Interpretation Comments Chloride Lvl (test code = Chloride Lvl) 98 95-109 [place] [address]-10-16 09:37:00 Test Item Value Reference Range Interpretation Comments CO2 (test code = CO2) 32 24-32 [place] 245222-10-16 09:37:00 Test Item Value Reference Range Interpretation Comments Calcium Lvl (test code = Calcium Lvl) 9.3 8.5-10.5 [place] 245222-10-16 09:37:00 Test Item Value Reference Range Interpretation Comments Total Protein (test code = Total 7.5 6.4-8.4 Protein) [place] [address]-10-16 09:37:00 Test Item Value Reference Range Interpretation Comments Albumin Lvl (test code = Albumin Lvl) 3.0 3.5-5.0 [place] [address]-10-16 09:37:00 Test Item Value Reference Range Interpretation Comments ALT (test code = ALT) 18 See_Comment [Auto mated message] The system which ge nerated this result transmit fabiano reference range : <=65. The reference range was not used to interpr et this result as aleks l/abnormal. [facility] [id number] 09:37:00 Test Item Value Reference Range Interpretation Comments AST (test code = AST) 6 See_Comment [Auto mated message] The system which ge nerated this result transmit fabiano reference range : <=37. The reference range was not used to interpr et this result as aleks l/abnormal. [facility] [id number] 09:37:00 Test Item Value Reference Range Interpretation Comments Alk Phos (test code = Alk Phos) 118 39-136 [facility] [id number] 09:37:00 Test Item Value Reference Range Interpretation Comments Bili Total (test code = Bili Total) 0.4 0.2-1.3 [place] [address]-10-16 09:37:00 Test Item Value Reference Range Interpretation Comments AGAP (test code = AGAP) 11.7 10.0-20.0 [facility] [id number] 09:37:00 Test Item Value Reference Range Interpretation Comments B/C Ratio (test code = B/C Ratio) 19 1 6-25 [facility] [id number] 09:37:00 Test Item Value Reference Range Interpretation Comments Globulin (test code = Globulin) 4.5 2.7-4.2 [place] [address]-10-16 09:37:00 Test Item Value Reference Range Interpretation Comments A/G Ratio (test code = A/G Ratio) 0.7 1 0.7-1.6 [place] [address]-10-16 09:37:00 Test Item Value Reference Range Interpretation Comments eGFR (test code = eGFR) 105 [facility] [id number] 09:37:00 Test Item Value Reference Range Interpretation Comments Phosphorus (test code = Phosphorus) 3.7 2.5-4.5 [place] [address]-10-16 09:37:00 Test Item Value Reference Range Interpretation Comments Magnesium Lvl (test code = Magnesium 2.1 1.8-2.4 Lvl) [place] [address]-10-16 09:37:00 Test Item Value Reference Range Interpretation Comments Procalcitonin Lvl (test no gt See_Comment [Au tomated message] code = Procalcitonin Lvl) Th e system which generated this result transmitted ref erence range: <=0.10. The reference range was not used to interpr et this result as normal/abnormal . [facility] DistrictYjnhadyGQZRTWGMNC4584-45-51 09:37:00 Test Item Value Reference Range Interpretation Comments WBC (test code = WBC) 15.7 3.7-10.4 [facility] DistrictVerqmcsUNPVOURKNH0261-61-34 09:37:00 Test Item Value Reference Range Interpretation Comments RBC (test code = RBC) 4.10 4.20-5.40 [facility] DistrictHlownmwUGDPRQNLDG6093-44-20 09:37:00 Test Item Value Reference Range Interpretation Comments Hgb (test code = Hgb) 10.7 12.0-16.0 [facility] DistrictQpxmugmYLQLNMNDKY2673-52-60 09:37:00 Test Item Value Reference Range Interpretation Comments Hct (test code = Hct) 32.8 36.0-48.0 [facility] DistrictUkmmqwdYIWTABXMJP2209-38-75 09:37:00 Test Item Value Reference Range Interpretation Comments MCV (test code = MCV) 80.0 80.0-98.0 [facility] DistrictNjzbrdjUZALRSYTSL8129-21-12 09:37:00 Test Item Value Reference Range Interpretation Comments MCH (test code = MCH) 26.1 pg 27.0-31.0 [facility] DistrictZaoqyenUNORYRIOMU7828-01-51 09:37:00 Test Item Value Reference Range Interpretation Comments MCHC (test code = MCHC) 32.6 32.0-36.0 [facility] DistrictOzqjigjKEHYBGQPDO2070-59-87 09:37:00 Test Item Value Reference Range Interpretation Comments RDW (test code = RDW) 16.4 11.5-14.5 [facility] DistrictHuygulnCFXJJRSNBJ2735-43-54 09:37:00 Test Item Value Reference Range Interpretation Comments Platelet (test code = Platelet) 362 133-450 [facility] DistrictJbatqbqFANDHCQRFI5983-37-53 09:37:00 Test Item Value Reference Range Interpretation Comments MPV (test code = MPV) 8.1 7.4-10.4 [facility] DistrictJkodhfuBEKHGZNFGC6327-99-86 09:37:00 Test Item Value Reference Range Interpretation Comments Segs (test code = Segs) 76.4 45.0-75.0 [facility] DistrictNwdsuggKXNDLVEOXE0499-57-80 09:37:00 Test Item Value Reference Range Interpretation Comments Lymphocytes (test code = Lymphocytes) 13.3 20.0-40.0 [place] [address]-10-16 09:37:00 Test Item Value Reference Range Interpretation Comments Monocytes (test code = Monocytes) 5.7 2.0-12.0 [place] [address]-10-16 09:37:00 Test Item Value Reference Range Interpretation Comments Eosinophils (test code = 3.7 See_Comment [A utomated message] The Eosinophils) system which ge nerated this result tra nsmitted reference range : <=4.0. The reference r quynh was not used to int erpret this result as normal/abnormal . [place] [address]-10-16 09:37:00 Test Item Value Reference Range Interpretation Comments Basophils (test code = 0.9 See_Comment [Aut omated message] The Basophils) system which ge nerated this result tra nsmitted reference range : <=1.0. The reference r quynh was not used to int erpret this result as normal/abnormal . [place] [address]-10-16 09:37:00 Test Item Value Reference Range Interpretation Comments Neutrophils # (test code = Neutrophils 12.0 1.5-8.1 #) [place] [address]-10-16 09:37:00 Test Item Value Reference Range Interpretation Comments Lymphocytes # (test code = Lymphocytes 2.1 1.0-5.5 #) [place] [address]-10-16 09:37:00 Test Item Value Reference Range Interpretation Comments Monocytes # (test code 0.9 See_Comment [Aut omated message] The = Monocytes #) system which generated this result tra nsmitted reference range : <=0.8. The reference r quynh was not used to int erpret this result as normal/abnormal . [place] [address]-10-16 09:37:00 Test Item Value Reference Range Interpretation Comments Eosinophils # (test code 0.6 See_Comment [A utomated message] The = Eosinophils #) system whic h generated this result tra nsmitted reference range : <=0.5. The reference r quynh was not used to int erpret this result as normal/abnormal . [place] [address]-10-16 09:37:00 Test Item Value Reference Range Interpretation Comments Basophils # (test code 0.1 See_Comment [Aut omated message] The = Basophils #) system which generated this result tra nsmitted reference range : <=0.2. The reference r quynh was not used to int erpret this result as normal/abnormal . [facility] [employer] [id number] 09:37:00 Test Item Value Reference Range Interpretation Comments Procalcitonin Lvl (test no gt See_Comment [Au tomated message] code = Procalcitonin Lvl) Th e system which generated this result transmitted ref erence range: <=0.10. The reference range was not used to interpr et this result as normal/abnormal . [facility] [id number] 09:37:00 Test Item Value Reference Range Interpretation Comments Glucose Lvl (test code = Glucose Lvl) 103 70-99 [facility] [id number] 09:37:00 Test Item Value Reference Range Interpretation Comments BUN (test code = BUN) 13 7-22 [facility] [employer] [id number] 09:37:00 Test Item Value Reference Range Interpretation Comments Creatinine Lvl (test code = Creatinine 0.67 0.50-1.40 Lvl) [facility] [id number] 09:37:00 Test Item Value Reference Range Interpretation Comments Sodium Lvl (test code = Sodium Lvl) 138 135-145 [facility] [employer] [id number] 09:37:00 Test Item Value Reference Range Interpretation Comments Potassium Lvl (test code = Potassium 3.7 3.5-5.1 Lvl) [facility] [id number] 09:37:00 Test Item Value Reference Range Interpretation Comments Chloride Lvl (test code = Chloride Lvl) 98 95-109 [facility] [employer] [id number] 09:37:00 Test Item Value Reference Range Interpretation Comments CO2 (test code = CO2) 32 24-32 [facility] [employer] [id number] 09:37:00 Test Item Value Reference Range Interpretation Comments Calcium Lvl (test code = Calcium Lvl) 9.3 8.5-10.5 [facility] [employer] [id number] 09:37:00 Test Item Value Reference Range Interpretation Comments Total Protein (test code = Total 7.5 6.4-8.4 Protein) [facility] [id number] 09:37:00 Test Item Value Reference Range Interpretation Comments Albumin Lvl (test code = Albumin Lvl) 3.0 3.5-5.0 [place] [address]-10-16 09:37:00 Test Item Value Reference Range Interpretation Comments ALT (test code = ALT) 18 See_Comment [Auto mated message] The system which ge nerated this result transmit fabiano reference range : <=65. The reference range was not used to interpr et this result as aleks l/abnormal. [facility] [id number] 09:37:00 Test Item Value Reference Range Interpretation Comments AST (test code = AST) 6 See_Comment [Auto mated message] The system which ge nerated this result transmit fabiano reference range : <=37. The reference range was not used to interpr et this result as aleks l/abnormal. [facility] [id number] 09:37:00 Test Item Value Reference Range Interpretation Comments Alk Phos (test code = Alk Phos) 118 39-136 [facility] [id number] 09:37:00 Test Item Value Reference Range Interpretation Comments Bili Total (test code = Bili Total) 0.4 0.2-1.3 [facility] [id number] 09:37:00 Test Item Value Reference Range Interpretation Comments AGAP (test code = AGAP) 11.7 10.0-20.0 [facility] [id number] 09:37:00 Test Item Value Reference Range Interpretation Comments B/C Ratio (test code = B/C Ratio) 19 1 6-25 [facility] [id number] 09:37:00 Test Item Value Reference Range Interpretation Comments Globulin (test code = Globulin) 4.5 2.7-4.2 [facility] [id number] 09:37:00 Test Item Value Reference Range Interpretation Comments A/G Ratio (test code = A/G Ratio) 0.7 1 0.7-1.6 [facility] [id number] 09:37:00 Test Item Value Reference Range Interpretation Comments eGFR (test code = eGFR) 105 [facility] [id number] 09:37:00 Test Item Value Reference Range Interpretation Comments Phosphorus (test code = Phosphorus) 3.7 2.5-4.5 [facility]2022-10-16 09:37:00 Test Item Value Reference Range Interpretation Comments Magnesium Lvl (test code = Magnesium 2.1 1.8-2.4 Lvl) [facility]Prv[facility]boADJIYVORY4572-62-10 09:37:00 Test Item Value Reference Range Interpretation Comments Procalcitonin Lvl (test no gt See_Comment [Au tomated message] code = Procalcitonin Lvl) Th e system which generated this result transmitted ref erence range: <=0.10. The reference range was not used to interpr et this result as normal/abnormal . [facility] DistrictJjfizhbVFNIOIJOZU4758-03-66 09:37:00 Test Item Value Reference Range Interpretation Comments WBC (test code = WBC) 15.7 3.7-10.4 [place] 495052-10-16 09:37:00 Test Item Value Reference Range Interpretation Comments RBC (test code = RBC) 4.10 4.20-5.40 [place] 495052-10-16 09:37:00 Test Item Value Reference Range Interpretation Comments Hgb (test code = Hgb) 10.7 12.0-16.0 [place] [address]-10-16 09:37:00 Test Item Value Reference Range Interpretation Comments Hct (test code = Hct) 32.8 36.0-48.0 [place] [address]-10-16 09:37:00 Test Item Value Reference Range Interpretation Comments MCV (test code = MCV) 80.0 80.0-98.0 [place] [address]-10-16 09:37:00 Test Item Value Reference Range Interpretation Comments MCH (test code = MCH) 26.1 pg 27.0-31.0 [place] [address]-10-16 09:37:00 Test Item Value Reference Range Interpretation Comments MCHC (test code = MCHC) 32.6 32.0-36.0 [place] 495052-10-16 09:37:00 Test Item Value Reference Range Interpretation Comments RDW (test code = RDW) 16.4 11.5-14.5 [place] 495052-10-16 09:37:00 Test Item Value Reference Range Interpretation Comments Platelet (test code = Platelet) 362 133-450 [facility] DistrictBohirphSVJHKVQOWZ0103-23-16 09:37:00 Test Item Value Reference Range Interpretation Comments MPV (test code = MPV) 8.1 7.4-10.4 [facility] DistrictLzqhkqyZFFRKQMBFO7144-40-50 09:37:00 Test Item Value Reference Range Interpretation Comments Segs (test code = Segs) 76.4 45.0-75.0 [facility] DistrictBosvzchERRISFGNZU9370-47-10 09:37:00 Test Item Value Reference Range Interpretation Comments Lymphocytes (test code = Lymphocytes) 13.3 20.0-40.0 [place] [address]-10-16 09:37:00 Test Item Value Reference Range Interpretation Comments Monocytes (test code = Monocytes) 5.7 2.0-12.0 [facility] DistrictWxvmmzmUWTBFWTGIJ2897-56-29 09:37:00 Test Item Value Reference Range Interpretation Comments Eosinophils (test code = 3.7 See_Comment [A utomated message] The Eosinophils) system which ge nerated this result tra nsmitted reference range : <=4.0. The reference r quynh was not used to int erpret this result as normal/abnormal . [facility] DistrictTotaqztCFTXFDEWTO8053-40-72 09:37:00 Test Item Value Reference Range Interpretation Comments Basophils (test code = 0.9 See_Comment [Aut omated message] The Basophils) system which ge nerated this result tra nsmitted reference range : <=1.0. The reference r quynh was not used to int erpret this result as normal/abnormal . [facility] DistrictWttlgplNHDVXYEACB7612-59-67 09:37:00 Test Item Value Reference Range Interpretation Comments Neutrophils # (test code = Neutrophils 12.0 1.5-8.1 #) [place] [address]-10-16 09:37:00 Test Item Value Reference Range Interpretation Comments Lymphocytes # (test code = Lymphocytes 2.1 1.0-5.5 #) [place] [address]-10-16 09:37:00 Test Item Value Reference Range Interpretation Comments Monocytes # (test code 0.9 See_Comment [Aut omated message] The = Monocytes #) system which generated this result tra nsmitted reference range : <=0.8. The reference r quynh was not used to int erpret this result as normal/abnormal . [address]10-16 09:37:00 Test Item Value Reference Range Interpretation Comments Eosinophils # (test code 0.6 See_Comment [A utomated message] The = Eosinophils #) system whic h generated this result tra nsmitted reference range : <=0.5. The reference r quynh was not used to int erpret this result as normal/abnormal . [place] [address]-10-16 09:37:00 Test Item Value Reference Range Interpretation Comments Basophils # (test code 0.1 See_Comment [Aut omated message] The = Basophils #) system which generated this result tra nsmitted reference range : <=0.2. The reference r quynh was not used to int erpret this result as normal/abnormal . [facility] [id number] 09:37:00 Test Item Value Reference Range Interpretation Comments Procalcitonin Lvl (test no gt See_Comment [Au tomated message] code = Procalcitonin Lvl) Th e system which generated this result transmitted ref erence range: <=0.10. The reference range was not used to interpr et this result as normal/abnormal . [facility] [id number] 09:37:00 Test Item Value Reference Range Interpretation Comments Glucose Lvl (test code = Glucose Lvl) 103 70-99 [facility] [id number] 09:37:00 Test Item Value Reference Range Interpretation Comments BUN (test code = BUN) 13 7-22 [facility] [id number] 09:37:00 Test Item Value Reference Range Interpretation Comments Creatinine Lvl (test code = Creatinine 0.67 0.50-1.40 Lvl) [facility] [id number] 09:37:00 Test Item Value Reference Range Interpretation Comments Sodium Lvl (test code = Sodium Lvl) 138 135-145 [facility] [id number] 09:37:00 Test Item Value Reference Range Interpretation Comments Potassium Lvl (test code = Potassium 3.7 3.5-5.1 Lvl) [facility] [id number] 09:37:00 Test Item Value Reference Range Interpretation Comments Chloride Lvl (test code = Chloride Lvl) 98 95-109 [facility] [id number] 09:37:00 Test Item Value Reference Range Interpretation Comments CO2 (test code = CO2) 32 24-32 [facility]2022-10-16 09:37:00 Test Item Value Reference Range Interpretation Comments Calcium Lvl (test code = Calcium Lvl) 9.3 8.5-10.5 [place] 245222-10-16 09:37:00 Test Item Value Reference Range Interpretation Comments Total Protein (test code = Total 7.5 6.4-8.4 Protein) [place] 245222-10-16 09:37:00 Test Item Value Reference Range Interpretation Comments Albumin Lvl (test code = Albumin Lvl) 3.0 3.5-5.0 [place] 245222-10-16 09:37:00 Test Item Value Reference Range Interpretation Comments ALT (test code = ALT) 18 See_Comment [Auto mated message] The system which ge nerated this result transmit fabiano reference range : <=65. The reference range was not used to interpr et this result as aleks l/abnormal. [place] 245222-10-16 09:37:00 Test Item Value Reference Range Interpretation Comments AST (test code = AST) 6 See_Comment [Auto mated message] The system which ge nerated this result transmit fabiano reference range : <=37. The reference range was not used to interpr et this result as aleks l/abnormal. [place] 245222-10-16 09:37:00 Test Item Value Reference Range Interpretation Comments Alk Phos (test code = Alk Phos) 118 39-136 [place] 245222-10-16 09:37:00 Test Item Value Reference Range Interpretation Comments Bili Total (test code = Bili Total) 0.4 0.2-1.3 [place] [address]-10-16 09:37:00 Test Item Value Reference Range Interpretation Comments AGAP (test code = AGAP) 11.7 10.0-20.0 [place] 245222-10-16 09:37:00 Test Item Value Reference Range Interpretation Comments B/C Ratio (test code = B/C Ratio) 19 1 6-25 [place] [address]-10-16 09:37:00 Test Item Value Reference Range Interpretation Comments Globulin (test code = Globulin) 4.5 2.7-4.2 [place] [address]-10-16 09:37:00 Test Item Value Reference Range Interpretation Comments A/G Ratio (test code = A/G Ratio) 0.7 1 0.7-1.6 [place] [address]-10-16 09:37:00 Test Item Value Reference Range Interpretation Comments eGFR (test code = eGFR) 105 [place] 245222-10-16 09:37:00 Test Item Value Reference Range Interpretation Comments Phosphorus (test code = Phosphorus) 3.7 2.5-4.5 [place] [address]-10-16 09:37:00 Test Item Value Reference Range Interpretation Comments Magnesium Lvl (test code = Magnesium 2.1 1.8-2.4 Lvl) [place] 774022-10-16 09:37:00 Test Item Value Reference Range Interpretation Comments Procalcitonin Lvl (test no gt See_Comment [Au tomated message] code = Procalcitonin Lvl) e system which generated this result transmitted ref erence range: <=0.10. The reference range was not used to interpr et this result as normal/abnormal . [place] 495052-10-16 09:37:00 Test Item Value Reference Range Interpretation Comments WBC (test code = WBC) 15.7 3.7-10.4 [place] 495052-10-16 09:37:00 Test Item Value Reference Range Interpretation Comments RBC (test code = RBC) 4.10 4.20-5.40 [place] 495052-10-16 09:37:00 Test Item Value Reference Range Interpretation Comments Hgb (test code = Hgb) 10.7 12.0-16.0 [place] [address]-10-16 09:37:00 Test Item Value Reference Range Interpretation Comments Hct (test code = Hct) 32.8 36.0-48.0 [place] [address]-10-16 09:37:00 Test Item Value Reference Range Interpretation Comments MCV (test code = MCV) 80.0 80.0-98.0 [place] [address]-10-16 09:37:00 Test Item Value Reference Range Interpretation Comments MCH (test code = MCH) 26.1 pg 27.0-31.0 [place] [address]-10-16 09:37:00 Test Item Value Reference Range Interpretation Comments MCHC (test code = MCHC) 32.6 32.0-36.0 [place] 495052-10-16 09:37:00 Test Item Value Reference Range Interpretation Comments RDW (test code = RDW) 16.4 11.5-14.5 [place] 495052-10-16 09:37:00 Test Item Value Reference Range Interpretation Comments Platelet (test code = Platelet) 362 133-450 [place] 495052-10-16 09:37:00 Test Item Value Reference Range Interpretation Comments MPV (test code = MPV) 8.1 7.4-10.4 [place] [address]-10-16 09:37:00 Test Item Value Reference Range Interpretation Comments Segs (test code = Segs) 76.4 45.0-75.0 [place] [address]-10-16 09:37:00 Test Item Value Reference Range Interpretation Comments Lymphocytes (test code = Lymphocytes) 13.3 20.0-40.0 [place] [address]-10-16 09:37:00 Test Item Value Reference Range Interpretation Comments Monocytes (test code = Monocytes) 5.7 2.0-12.0 [place] [address]-10-16 09:37:00 Test Item Value Reference Range Interpretation Comments Eosinophils (test code = 3.7 See_Comment [A utomated message] The Eosinophils) system which ge nerated this result tra nsmitted reference range : <=4.0. The reference r quynh was not used to int erpret this result as normal/abnormal . [place] 495052-10-16 09:37:00 Test Item Value Reference Range Interpretation Comments Basophils (test code = 0.9 See_Comment [Aut omated message] The Basophils) system which ge nerated this result tra nsmitted reference range : <=1.0. The reference r quynh was not used to int erpret this result as normal/abnormal . [place] [address]-10-16 09:37:00 Test Item Value Reference Range Interpretation Comments Neutrophils # (test code = Neutrophils 12.0 1.5-8.1 #) [place] 495052-10-16 09:37:00 Test Item Value Reference Range Interpretation Comments Lymphocytes # (test code = Lymphocytes 2.1 1.0-5.5 #) [place] [address]-10-16 09:37:00 Test Item Value Reference Range Interpretation Comments Monocytes # (test code 0.9 See_Comment [Aut omated message] The = Monocytes #) system which generated this result tra nsmitted reference range : <=0.8. The reference r quynh was not used to int erpret this result as normal/abnormal . [place] 495052-10-16 09:37:00 Test Item Value Reference Range Interpretation Comments Eosinophils # (test code 0.6 See_Comment [A utomated message] The = Eosinophils #) system whic h generated this result tra nsmitted reference range : <=0.5. The reference r quynh was not used to int erpret this result as normal/abnormal . [place] [address]-10-16 09:37:00 Test Item Value Reference Range Interpretation Comments Basophils # (test code 0.1 See_Comment [Aut omated message] The = Basophils #) system which generated this result tra nsmitted reference range : <=0.2. The reference r quynh was not used to int erpret this result as normal/abnormal . [facility] [id number] 09:37:00 Test Item Value Reference Range Interpretation Comments Procalcitonin Lvl (test no gt See_Comment [Au tomated message] code = Procalcitonin Lvl) Th e system which generated this result transmitted ref erence range: <=0.10. The reference range was not used to interpr et this result as normal/abnormal . [facility] [id number] 09:37:00 Test Item Value Reference Range Interpretation Comments Glucose Lvl (test code = Glucose Lvl) 103 70-99 [place] 245222-10-16 09:37:00 Test Item Value Reference Range Interpretation Comments BUN (test code = BUN) 13 7-22 [place] [address]-10-16 09:37:00 Test Item Value Reference Range Interpretation Comments Creatinine Lvl (test code = Creatinine 0.67 0.50-1.40 Lvl) [place] 245222-10-16 09:37:00 Test Item Value Reference Range Interpretation Comments Sodium Lvl (test code = Sodium Lvl) 138 135-145 [facility] [id number] 09:37:00 Test Item Value Reference Range Interpretation Comments Potassium Lvl (test code = Potassium 3.7 3.5-5.1 Lvl) [place] 245222-10-16 09:37:00 Test Item Value Reference Range Interpretation Comments Chloride Lvl (test code = Chloride Lvl) 98 95-109 [facility] [id number] 09:37:00 Test Item Value Reference Range Interpretation Comments CO2 (test code = CO2) 32 24-32 [place] 245222-10-16 09:37:00 Test Item Value Reference Range Interpretation Comments Calcium Lvl (test code = Calcium Lvl) 9.3 8.5-10.5 [facility] [id number] 09:37:00 Test Item Value Reference Range Interpretation Comments Total Protein (test code = Total 7.5 6.4-8.4 Protein) [place] 245222-10-16 09:37:00 Test Item Value Reference Range Interpretation Comments Albumin Lvl (test code = Albumin Lvl) 3.0 3.5-5.0 [facility] [id number] 09:37:00 Test Item Value Reference Range Interpretation Comments ALT (test code = ALT) 18 See_Comment [Auto mated message] The system which ge nerated this result transmit fabiano reference range : <=65. The reference range was not used to interpr et this result as aleks l/abnormal. [facility] [id number] 09:37:00 Test Item Value Reference Range Interpretation Comments AST (test code = AST) 6 See_Comment [Auto mated message] The system which ge nerated this result transmit fabiano reference range : <=37. The reference range was not used to interpr et this result as alkes l/abnormal. [facility] [id number] 09:37:00 Test Item Value Reference Range Interpretation Comments Alk Phos (test code = Alk Phos) 118 39-136 [facility] [id number] 09:37:00 Test Item Value Reference Range Interpretation Comments Bili Total (test code = Bili Total) 0.4 0.2-1.3 [facility] [place] [id number] 09:37:00 Test Item Value Reference Range Interpretation Comments AGAP (test code = AGAP) 11.7 10.0-20.0 [place] [address]-10-16 09:37:00 Test Item Value Reference Range Interpretation Comments B/C Ratio (test code = B/C Ratio) 19 1 6-25 [place] [address]-10-16 09:37:00 Test Item Value Reference Range Interpretation Comments Globulin (test code = Globulin) 4.5 2.7-4.2 [place] 245222-10-16 09:37:00 Test Item Value Reference Range Interpretation Comments A/G Ratio (test code = A/G Ratio) 0.7 1 0.7-1.6 [place] [address]-10-16 09:37:00 Test Item Value Reference Range Interpretation Comments eGFR (test code = eGFR) 105 [place] 245222-10-16 09:37:00 Test Item Value Reference Range Interpretation Comments Phosphorus (test code = Phosphorus) 3.7 2.5-4.5 [place] 245222-10-16 09:37:00 Test Item Value Reference Range Interpretation Comments Magnesium Lvl (test code = Magnesium 2.1 1.8-2.4 Lvl) [place] [address]-10-16 09:37:00 Test Item Value Reference Range Interpretation Comments Procalcitonin Lvl (test no gt See_Comment [Au tomated message] code = Procalcitonin Lvl) Th e system which generated this result transmitted ref erence range: <=0.10. The reference range was not used to interpr et this result as normal/abnormal . [place] 495052-10-16 09:37:00 Test Item Value Reference Range Interpretation Comments WBC (test code = WBC) 15.7 3.7-10.4 [place] [address]-10-16 09:37:00 Test Item Value Reference Range Interpretation Comments RBC (test code = RBC) 4.10 4.20-5.40 [place] [address]-10-16 09:37:00 Test Item Value Reference Range Interpretation Comments Hgb (test code = Hgb) 10.7 12.0-16.0 [place] [address]-10-16 09:37:00 Test Item Value Reference Range Interpretation Comments Hct (test code = Hct) 32.8 36.0-48.0 [place] 495052-10-16 09:37:00 Test Item Value Reference Range Interpretation Comments MCV (test code = MCV) 80.0 80.0-98.0 [place] 495052-10-16 09:37:00 Test Item Value Reference Range Interpretation Comments MCH (test code = MCH) 26.1 pg 27.0-31.0 [place] 495052-10-16 09:37:00 Test Item Value Reference Range Interpretation Comments MCHC (test code = MCHC) 32.6 32.0-36.0 [place] 495052-10-16 09:37:00 Test Item Value Reference Range Interpretation Comments RDW (test code = RDW) 16.4 11.5-14.5 [place] 495052-10-16 09:37:00 Test Item Value Reference Range Interpretation Comments Platelet (test code = Platelet) 362 133-450 [facility] DistrictDiplrzkXXDXEBHUBC2305-51-02 09:37:00 Test Item Value Reference Range Interpretation Comments MPV (test code = MPV) 8.1 7.4-10.4 [place] 495052-10-16 09:37:00 Test Item Value Reference Range Interpretation Comments Segs (test code = Segs) 76.4 45.0-75.0 [place] 495052-10-16 09:37:00 Test Item Value Reference Range Interpretation Comments Lymphocytes (test code = Lymphocytes) 13.3 20.0-40.0 [place] 495052-10-16 09:37:00 Test Item Value Reference Range Interpretation Comments Monocytes (test code = Monocytes) 5.7 2.0-12.0 [place] [address]-10-16 09:37:00 Test Item Value Reference Range Interpretation Comments Eosinophils (test code = 3.7 See_Comment [A utomated message] The Eosinophils) system which ge nerated this result tra nsmitted reference range : <=4.0. The reference r quynh was not used to int erpret this result as normal/abnormal . [place] 495052-10-16 09:37:00 Test Item Value Reference Range Interpretation Comments Basophils (test code = 0.9 See_Comment [Aut omated message] The Basophils) system which ge nerated this result tra nsmitted reference range : <=1.0. The reference r quynh was not used to int erpret this result as normal/abnormal . [facility] DistrictDraddrwQNHYDOJDYR4171-82-52 09:37:00 Test Item Value Reference Range Interpretation Comments Neutrophils # (test code = Neutrophils 12.0 1.5-8.1 #) [facility] DistrictLixirsxIHDWJVQQJA8049-13-74 09:37:00 Test Item Value Reference Range Interpretation Comments Lymphocytes # (test code = Lymphocytes 2.1 1.0-5.5 #) [place] 495052-10-16 09:37:00 Test Item Value Reference Range Interpretation Comments Monocytes # (test code 0.9 See_Comment [Aut omated message] The = Monocytes #) system which generated this result tra nsmitted reference range : <=0.8. The reference r quynh was not used to int erpret this result as normal/abnormal . [facility] MarshallYgbcfmjFEISOOBAMW0604-13-58 09:37:00 Test Item Value Reference Range Interpretation Comments Eosinophils # (test code 0.6 See_Comment [A utomated message] The = Eosinophils #) system ic h generated this result tra nsmitted reference range : <=0.5. The reference r quynh was not used to int erpret this result as normal/abnormal . [facility] MarshallKzyavrpUIWPAUZHYY2240-32-48 09:37:00 Test Item Value Reference Range Interpretation Comments Basophils # (test code 0.1 See_Comment [Aut omated message] The = Basophils #) system which generated this result tra nsmitted reference range : <=0.2. The reference r quynh was not used to int erpret this result as normal/abnormal . [facility] Cost Effective Data2022-10-16 09:37:00 Test Item Value Reference Range Interpretation Comments Procalcitonin Lvl (test no gt See_Comment [Au tomated message] code = Procalcitonin Lvl) Th e system which generated this result transmitted ref erence range: <=0.10. The reference range was not used to interpr et this result as normal/abnormal . [facility]37coinsGZTZP5031-42-91 09:37:00 Test Item Value Reference Range Interpretation Comments Glucose Lvl (test code = Glucose Lvl) 103 70-99 [place] 245222-10-16 09:37:00 Test Item Value Reference Range Interpretation Comments BUN (test code = BUN) 13 7-22 [place] [address]-10-16 09:37:00 Test Item Value Reference Range Interpretation Comments Creatinine Lvl (test code = Creatinine 0.67 0.50-1.40 Lvl) [place] [address]-10-16 09:37:00 Test Item Value Reference Range Interpretation Comments Sodium Lvl (test code = Sodium Lvl) 138 135-145 [place] [address]-10-16 09:37:00 Test Item Value Reference Range Interpretation Comments Potassium Lvl (test code = Potassium 3.7 3.5-5.1 Lvl) [address]10-16 09:37:00 Test Item Value Reference Range Interpretation Comments Chloride Lvl (test code = Chloride Lvl) 98 95-109 [place] [address]-10-16 09:37:00 Test Item Value Reference Range Interpretation Comments CO2 (test code = CO2) 32 24-32 [place] [address]-10-16 09:37:00 Test Item Value Reference Range Interpretation Comments Calcium Lvl (test code = Calcium Lvl) 9.3 8.5-10.5 [place] [address]-10-16 09:37:00 Test Item Value Reference Range Interpretation Comments Total Protein (test code = Total 7.5 6.4-8.4 Protein) [address]10-16 09:37:00 Test Item Value Reference Range Interpretation Comments Albumin Lvl (test code = Albumin Lvl) 3.0 3.5-5.0 [place] [address]-10-16 09:37:00 Test Item Value Reference Range Interpretation Comments ALT (test code = ALT) 18 See_Comment [Auto mated message] The system which ge nerated this result transmit fabiano reference range : <=65. The reference range was not used to interpr et this result as aleks l/abnormal. [address]10-16 09:37:00 Test Item Value Reference Range Interpretation Comments AST (test code = AST) 6 See_Comment [Auto mated message] The system which ge nerated this result transmit fabiano reference range : <=37. The reference range was not used to interpr et this result as aleks l/abnormal. [place] [address]-10-16 09:37:00 Test Item Value Reference Range Interpretation Comments Alk Phos (test code = Alk Phos) 118 39-136 [place] [address]-10-16 09:37:00 Test Item Value Reference Range Interpretation Comments Bili Total (test code = Bili Total) 0.4 0.2-1.3 [place] [address]-10-16 09:37:00 Test Item Value Reference Range Interpretation Comments AGAP (test code = AGAP) 11.7 10.0-20.0 [address]10-16 09:37:00 Test Item Value Reference Range Interpretation Comments B/C Ratio (test code = B/C Ratio) 19 1 6-[address]10-16 09:37:00 Test Item Value Reference Range Interpretation Comments Globulin (test code = Globulin) 4.5 2.7-4.2 [place] [address]-10-16 09:37:00 Test Item Value Reference Range Interpretation Comments A/G Ratio (test code = A/G Ratio) 0.7 1 0.7-1.6 [place] [address]-10-16 09:37:00 Test Item Value Reference Range Interpretation Comments eGFR (test code = eGFR) 105 [place] [address]-10-16 09:37:00 Test Item Value Reference Range Interpretation Comments Phosphorus (test code = Phosphorus) 3.7 2.5-4.5 [place] [address]-10-16 09:37:00 Test Item Value Reference Range Interpretation Comments Magnesium Lvl (test code = Magnesium 2.1 1.8-2.4 Lvl) [place] [address]-10-16 09:37:00 Test Item Value Reference Range Interpretation Comments Procalcitonin Lvl (test no gt See_Comment [Au tomated message] code = Procalcitonin Lvl) e system which generated this result transmitted ref erence range: <=0.10. The reference range was not used to interpr et this result as normal/abnormal . [place] 245222-10-16 09:37:00 Test Item Value Reference Range Interpretation Comments Procalcitonin Lvl (test no gt See_Comment [Au tomated message] code = Procalcitonin Lvl) Th e system which generated this result transmitted ref erence range: <=0.10. The reference range was not used to interpr et this result as normal/abnormal . [facility] DistrictIrgxlijWJBVZQQTAP8883-13-32 09:37:00 Test Item Value Reference Range Interpretation Comments WBC (test code = WBC) 15.7 3.7-10.4 [facility] DistrictXmxcdytZFDTAKGQHX1069-46-32 09:37:00 Test Item Value Reference Range Interpretation Comments RBC (test code = RBC) 4.10 4.20-5.40 [facility] DistrictRzzeprjHKYVHBNBKM7289-46-60 09:37:00 Test Item Value Reference Range Interpretation Comments Hgb (test code = Hgb) 10.7 12.0-16.0 [place] 495052-10-16 09:37:00 Test Item Value Reference Range Interpretation Comments Hct (test code = Hct) 32.8 36.0-48.0 [facility] DistrictAydfnxeLUURTTZCWL3725-81-56 09:37:00 Test Item Value Reference Range Interpretation Comments MCV (test code = MCV) 80.0 80.0-98.0 [facility] DistrictKfxocqoGMBTXKHCAX7420-78-93 09:37:00 Test Item Value Reference Range Interpretation Comments MCH (test code = MCH) 26.1 pg 27.0-31.0 [facility] DistrictPfnhxqsVXQPYINIVW3646-92-72 09:37:00 Test Item Value Reference Range Interpretation Comments MCHC (test code = MCHC) 32.6 32.0-36.0 [facility] DistrictKpmzrlsMYRPKQAAQM7841-99-62 09:37:00 Test Item Value Reference Range Interpretation Comments RDW (test code = RDW) 16.4 11.5-14.5 [place] 495052-10-16 09:37:00 Test Item Value Reference Range Interpretation Comments Platelet (test code = Platelet) 362 133-450 [facility] DistrictTjvkmonQCMBUWTZWG4737-07-67 09:37:00 Test Item Value Reference Range Interpretation Comments MPV (test code = MPV) 8.1 7.4-10.4 [facility]2022-10-16 09:37:00 Test Item Value Reference Range Interpretation Comments Glucose Lvl (test code = Glucose Lvl) 103 70-99 [place] [address]-10-16 09:37:00 Test Item Value Reference Range Interpretation Comments Segs (test code = Segs) 76.4 45.0-75.0 [place] 495052-10-16 09:37:00 Test Item Value Reference Range Interpretation Comments Lymphocytes (test code = Lymphocytes) 13.3 20.0-40.0 [place] [address]-10-16 09:37:00 Test Item Value Reference Range Interpretation Comments Monocytes (test code = Monocytes) 5.7 2.0-12.0 [place] [address]-10-16 09:37:00 Test Item Value Reference Range Interpretation Comments Eosinophils (test code = 3.7 See_Comment [A utomated message] The Eosinophils) system which ge nerated this result tra nsmitted reference range : <=4.0. The reference r quynh was not used to int erpret this result as normal/abnormal . [place] [address]-10-16 09:37:00 Test Item Value Reference Range Interpretation Comments Basophils (test code = 0.9 See_Comment [Aut omated message] The Basophils) system which ge nerated this result tra nsmitted reference range : <=1.0. The reference r quynh was not used to int erpret this result as normal/abnormal . [place] [address]-10-16 09:37:00 Test Item Value Reference Range Interpretation Comments Neutrophils # (test code = Neutrophils 12.0 1.5-8.1 #) [place] [address]-10-16 09:37:00 Test Item Value Reference Range Interpretation Comments Lymphocytes # (test code = Lymphocytes 2.1 1.0-5.5 #) [place] [address]-10-16 09:37:00 Test Item Value Reference Range Interpretation Comments Monocytes # (test code 0.9 See_Comment [Aut omated message] The = Monocytes #) system which generated this result tra nsmitted reference range : <=0.8. The reference r quynh was not used to int erpret this result as normal/abnormal . [place] [address]-10-16 09:37:00 Test Item Value Reference Range Interpretation Comments Eosinophils # (test code 0.6 See_Comment [A utomated message] The = Eosinophils #) system whic h generated this result tra nsmitted reference range : <=0.5. The reference r quynh was not used to int erpret this result as normal/abnormal . [facility] DistrictDjsfwyfNNFSLKHSLD7353-14-26 09:37:00 Test Item Value Reference Range Interpretation Comments Basophils # (test code 0.1 See_Comment [Aut omated message] The = Basophils #) system which generated this result tra nsmitted reference range : <=0.2. The reference r quynh was not used to int erpret this result as normal/abnormal . [place] 245222-10-16 09:37:00 Test Item Value Reference Range Interpretation Comments BUN (test code = BUN) 13 7-22 [place] 245222-10-16 09:37:00 Test Item Value Reference Range Interpretation Comments Creatinine Lvl (test code = Creatinine 0.67 0.50-1.40 Lvl) [place] 245222-10-16 09:37:00 Test Item Value Reference Range Interpretation Comments Sodium Lvl (test code = Sodium Lvl) 138 135-145 [place] 245222-10-16 09:37:00 Test Item Value Reference Range Interpretation Comments Potassium Lvl (test code = Potassium 3.7 3.5-5.1 Lvl) [place] 245222-10-16 09:37:00 Test Item Value Reference Range Interpretation Comments Chloride Lvl (test code = Chloride Lvl) 98 95-109 [place] 245222-10-16 09:37:00 Test Item Value Reference Range Interpretation Comments CO2 (test code = CO2) 32 24-32 [place] 245222-10-16 09:37:00 Test Item Value Reference Range Interpretation Comments Calcium Lvl (test code = Calcium Lvl) 9.3 8.5-10.5 [place] 245222-10-16 09:37:00 Test Item Value Reference Range Interpretation Comments Total Protein (test code = Total 7.5 6.4-8.4 Protein) [place] 245222-10-16 09:37:00 Test Item Value Reference Range Interpretation Comments Albumin Lvl (test code = Albumin Lvl) 3.0 3.5-5.0 [place] 245222-10-16 09:37:00 Test Item Value Reference Range Interpretation Comments ALT (test code = ALT) 18 See_Comment [Auto mated message] The system which ge nerated this result transmit fabiano reference range : <=65. The reference range was not used to interpr et this result as aleks l/abnormal. [facility] [employer] [id number] 09:37:00 Test Item Value Reference Range Interpretation Comments AST (test code = AST) 6 See_Comment [Auto mated message] The system which ge nerated this result transmit fabiano reference range : <=37. The reference range was not used to interpr et this result as aleks l/abnormal. [facility] [employer] [id number] 09:37:00 Test Item Value Reference Range Interpretation Comments Alk Phos (test code = Alk Phos) 118 39-136 [facility] [employer] [id number] 09:37:00 Test Item Value Reference Range Interpretation Comments Bili Total (test code = Bili Total) 0.4 0.2-1.3 [facility] [employer] [id number] 09:37:00 Test Item Value Reference Range Interpretation Comments AGAP (test code = AGAP) 11.7 10.0-20.0 [facility] [employer] [id number] 09:37:00 Test Item Value Reference Range Interpretation Comments B/C Ratio (test code = B/C Ratio) 19 1 6-25 [facility] [employer] [id number] 09:37:00 Test Item Value Reference Range Interpretation Comments Globulin (test code = Globulin) 4.5 2.7-4.2 [facility] [employer] [id number] 09:37:00 Test Item Value Reference Range Interpretation Comments A/G Ratio (test code = A/G Ratio) 0.7 1 0.7-1.6 [facility] [employer] [id number] 09:37:00 Test Item Value Reference Range Interpretation Comments eGFR (test code = eGFR) 105 [facility] [employer] [id number] 09:37:00 Test Item Value Reference Range Interpretation Comments Phosphorus (test code = Phosphorus) 3.7 2.5-4.5 [facility] [employer] [id number] 09:37:00 Test Item Value Reference Range Interpretation Comments Magnesium Lvl (test code = Magnesium 2.1 1.8-2.4 Lvl) [facility]GhkcrurOXMNVZAVG7773-93-36 09:37:00 Test Item Value Reference Range Interpretation Comments Procalcitonin Lvl (test no gt See_Comment [Au tomated message] code = Procalcitonin Lvl) Th e system which generated this result transmitted ref erence range: <=0.10. The reference range was not used to interpr et this result as normal/abnormal . [facility] DistrictVlrfhveAKWRVGNPQT6087-18-54 09:37:00 Test Item Value Reference Range Interpretation Comments WBC (test code = WBC) 15.7 3.7-10.4 [facility] DistrictFjkvloaTJUPSYGHBW1623-41-60 09:37:00 Test Item Value Reference Range Interpretation Comments RBC (test code = RBC) 4.10 4.20-5.40 [facility] DistrictUdrgcniTPQEZISWGG8190-65-63 09:37:00 Test Item Value Reference Range Interpretation Comments Hgb (test code = Hgb) 10.7 12.0-16.0 [facility] DistrictGudgffbKBSGYESPPF3363-38-47 09:37:00 Test Item Value Reference Range Interpretation Comments Hct (test code = Hct) 32.8 36.0-48.0 [facility] DistrictDacnnfdCWQDEQJVDM1838-30-31 09:37:00 Test Item Value Reference Range Interpretation Comments MCV (test code = MCV) 80.0 80.0-98.0 [facility] DistrictHdkxhchPHPIZEDUAR3174-77-58 09:37:00 Test Item Value Reference Range Interpretation Comments MCH (test code = MCH) 26.1 pg 27.0-31.0 [facility]qxnkqyYTANBFECDI7152-29-00 09:37:00 Test Item Value Reference Range Interpretation Comments MCHC (test code = MCHC) 32.6 32.0-36.0 [facility] DistrictMkkurveGACZFZOAMN5583-25-23 09:37:00 Test Item Value Reference Range Interpretation Comments RDW (test code = RDW) 16.4 11.5-14.5 [facility] DistrictZjpemmdNXXNSFUMOQ8393-46-64 09:37:00 Test Item Value Reference Range Interpretation Comments Platelet (test code = Platelet) 362 133-450 [facility] DistrictIiimdlpZSNPSFFTPQ8906-82-03 09:37:00 Test Item Value Reference Range Interpretation Comments MPV (test code = MPV) 8.1 7.4-10.4 [facility] DistrictOyuhueaDDBUSHTTJT3086-34-25 09:37:00 Test Item Value Reference Range Interpretation Comments Segs (test code = Segs) 76.4 45.0-75.0 [place] [address]-10-16 09:37:00 Test Item Value Reference Range Interpretation Comments Lymphocytes (test code = Lymphocytes) 13.3 20.0-40.0 [place] [address]-10-16 09:37:00 Test Item Value Reference Range Interpretation Comments Monocytes (test code = Monocytes) 5.7 2.0-12.0 [place] [address]-10-16 09:37:00 Test Item Value Reference Range Interpretation Comments Eosinophils (test code = 3.7 See_Comment [A utomated message] The Eosinophils) system which ge nerated this result tra nsmitted reference range : <=4.0. The reference r quynh was not used to int erpret this result as normal/abnormal . [place] [address]-10-16 09:37:00 Test Item Value Reference Range Interpretation Comments Basophils (test code = 0.9 See_Comment [Aut omated message] The Basophils) system which ge nerated this result tra nsmitted reference range : <=1.0. The reference r quynh was not used to int erpret this result as normal/abnormal . [place] 495052-10-16 09:37:00 Test Item Value Reference Range Interpretation Comments Neutrophils # (test code = Neutrophils 12.0 1.5-8.1 #) [place] [address]-10-16 09:37:00 Test Item Value Reference Range Interpretation Comments Lymphocytes # (test code = Lymphocytes 2.1 1.0-5.5 #) [place] [address]-10-16 09:37:00 Test Item Value Reference Range Interpretation Comments Monocytes # (test code 0.9 See_Comment [Aut omated message] The = Monocytes #) system which generated this result tra nsmitted reference range : <=0.8. The reference r quynh was not used to int erpret this result as normal/abnormal . [place] [address]-10-16 09:37:00 Test Item Value Reference Range Interpretation Comments Eosinophils # (test code 0.6 See_Comment [A utomated message] The = Eosinophils #) system whic h generated this result tra nsmitted reference range : <=0.5. The reference r quynh was not used to int erpret this result as normal/abnormal . [place] 495052-10-16 09:37:00 Test Item Value Reference Range Interpretation Comments Basophils # (test code 0.1 See_Comment [Aut omated message] The = Basophils #) system which generated this result tra nsmitted reference range : <=0.2. The reference r quynh was not used to int erpret this result as normal/abnormal . [place] 245222-10-16 09:37:00 Test Item Value Reference Range Interpretation Comments Procalcitonin Lvl (test no gt See_Comment [Au tomated message] code = Procalcitonin Lvl) Th e system which generated this result transmitted ref erence range: <=0.10. The reference range was not used to interpr et this result as normal/abnormal . [place] 245222-10-16 09:37:00 Test Item Value Reference Range Interpretation Comments Glucose Lvl (test code = Glucose Lvl) 103 70-99 [place] 245222-10-16 09:37:00 Test Item Value Reference Range Interpretation Comments BUN (test code = BUN) 13 7-22 [place] [address]-10-16 09:37:00 Test Item Value Reference Range Interpretation Comments Creatinine Lvl (test code = Creatinine 0.67 0.50-1.40 Lvl) [place] [address]-10-16 09:37:00 Test Item Value Reference Range Interpretation Comments Sodium Lvl (test code = Sodium Lvl) 138 135-145 [place] 245222-10-16 09:37:00 Test Item Value Reference Range Interpretation Comments Potassium Lvl (test code = Potassium 3.7 3.5-5.1 Lvl) [place] [address]-10-16 09:37:00 Test Item Value Reference Range Interpretation Comments Chloride Lvl (test code = Chloride Lvl) 98 95-109 [place] 245222-10-16 09:37:00 Test Item Value Reference Range Interpretation Comments CO2 (test code = CO2) 32 24-32 [place] 245222-10-16 09:37:00 Test Item Value Reference Range Interpretation Comments Calcium Lvl (test code = Calcium Lvl) 9.3 8.5-10.5 [facility] [id number] 09:37:00 Test Item Value Reference Range Interpretation Comments Total Protein (test code = Total 7.5 6.4-8.4 Protein) [place] 245222-10-16 09:37:00 Test Item Value Reference Range Interpretation Comments Albumin Lvl (test code = Albumin Lvl) 3.0 3.5-5.0 [facility] [id number] 09:37:00 Test Item Value Reference Range Interpretation Comments ALT (test code = ALT) 18 See_Comment [Auto mated message] The system which ge nerated this result transmit fabiano reference range : <=65. The reference range was not used to interpr et this result as aleks l/abnormal. [facility] [id number] 09:37:00 Test Item Value Reference Range Interpretation Comments AST (test code = AST) 6 See_Comment [Auto mated message] The system which ge nerated this result transmit fabiano reference range : <=37. The reference range was not used to interpr et this result as aleks l/abnormal. [facility] [id number] 09:37:00 Test Item Value Reference Range Interpretation Comments Alk Phos (test code = Alk Phos) 118 39-136 [facility] [id number] 09:37:00 Test Item Value Reference Range Interpretation Comments Bili Total (test code = Bili Total) 0.4 0.2-1.3 [facility] [id number] 09:37:00 Test Item Value Reference Range Interpretation Comments AGAP (test code = AGAP) 11.7 10.0-20.0 [facility] [id number] 09:37:00 Test Item Value Reference Range Interpretation Comments B/C Ratio (test code = B/C Ratio) 19 1 6-25 [facility] [id number] 09:37:00 Test Item Value Reference Range Interpretation Comments Globulin (test code = Globulin) 4.5 2.7-4.2 [facility] [id number] 09:37:00 Test Item Value Reference Range Interpretation Comments A/G Ratio (test code = A/G Ratio) 0.7 1 0.7-1.6 [place] [address]-10-16 09:37:00 Test Item Value Reference Range Interpretation Comments eGFR (test code = eGFR) 105 [place] 245222-10-16 09:37:00 Test Item Value Reference Range Interpretation Comments Phosphorus (test code = Phosphorus) 3.7 2.5-4.5 [place] 245222-10-16 09:37:00 Test Item Value Reference Range Interpretation Comments Magnesium Lvl (test code = Magnesium 2.1 1.8-2.4 Lvl) [place] [address]-10-16 09:37:00 Test Item Value Reference Range Interpretation Comments Procalcitonin Lvl (test no gt See_Comment [Au tomated message] code = Procalcitonin Lvl) Th e system which generated this result transmitted ref erence range: <=0.10. The reference range was not used to interpr et this result as normal/abnormal . [place] 495052-10-16 09:37:00 Test Item Value Reference Range Interpretation Comments WBC (test code = WBC) 15.7 3.7-10.4 [place] [address]-10-16 09:37:00 Test Item Value Reference Range Interpretation Comments RBC (test code = RBC) 4.10 4.20-5.40 [place] [address]-10-16 09:37:00 Test Item Value Reference Range Interpretation Comments Hgb (test code = Hgb) 10.7 12.0-16.0 [place] [address]-10-16 09:37:00 Test Item Value Reference Range Interpretation Comments Hct (test code = Hct) 32.8 36.0-48.0 [place] [address]-10-16 09:37:00 Test Item Value Reference Range Interpretation Comments MCV (test code = MCV) 80.0 80.0-98.0 [place] [address]-10-16 09:37:00 Test Item Value Reference Range Interpretation Comments MCH (test code = MCH) 26.1 pg 27.0-31.0 [place] [address]-10-16 09:37:00 Test Item Value Reference Range Interpretation Comments MCHC (test code = MCHC) 32.6 32.0-36.0 [place] [address]-10-16 09:37:00 Test Item Value Reference Range Interpretation Comments RDW (test code = RDW) 16.4 11.5-14.5 [place] 495052-10-16 09:37:00 Test Item Value Reference Range Interpretation Comments Platelet (test code = Platelet) 362 812-450 [place] 495052-10-16 09:37:00 Test Item Value Reference Range Interpretation Comments MPV (test code = MPV) 8.1 7.4-10.4 [place] 495052-10-16 09:37:00 Test Item Value Reference Range Interpretation Comments Segs (test code = Segs) 76.4 45.0-75.0 [place] [address]-10-16 09:37:00 Test Item Value Reference Range Interpretation Comments Lymphocytes (test code = Lymphocytes) 13.3 20.0-40.0 [place] [address]-10-16 09:37:00 Test Item Value Reference Range Interpretation Comments Monocytes (test code = Monocytes) 5.7 2.0-12.0 [place] [address]-10-16 09:37:00 Test Item Value Reference Range Interpretation Comments Eosinophils (test code = 3.7 See_Comment [A utomated message] The Eosinophils) system which ge nerated this result tra nsmitted reference range : <=4.0. The reference r quynh was not used to int erpret this result as normal/abnormal . [place] [address]-10-16 09:37:00 Test Item Value Reference Range Interpretation Comments Basophils (test code = 0.9 See_Comment [Aut omated message] The Basophils) system which ge nerated this result tra nsmitted reference range : <=1.0. The reference r quynh was not used to int erpret this result as normal/abnormal . [place] 495052-10-16 09:37:00 Test Item Value Reference Range Interpretation Comments Neutrophils # (test code = Neutrophils 12.0 1.5-8.1 #) [place] 495052-10-16 09:37:00 Test Item Value Reference Range Interpretation Comments Lymphocytes # (test code = Lymphocytes 2.1 1.0-5.5 #) [place] 495052-10-16 09:37:00 Test Item Value Reference Range Interpretation Comments Monocytes # (test code 0.9 See_Comment [Aut omated message] The = Monocytes #) system which generated this result tra nsmitted reference range : <=0.8. The reference r quynh was not used to int erpret this result as normal/abnormal . [place] 495052-10-16 09:37:00 Test Item Value Reference Range Interpretation Comments Eosinophils # (test code 0.6 See_Comment [A utomated message] The = Eosinophils #) system whic h generated this result tra nsmitted reference range : <=0.5. The reference r quynh was not used to int erpret this result as normal/abnormal . [place] 495052-10-16 09:37:00 Test Item Value Reference Range Interpretation Comments Basophils # (test code 0.1 See_Comment [Aut omated message] The = Basophils #) system which generated this result tra nsmitted reference range : <=0.2. The reference r quynh was not used to int erpret this result as normal/abnormal . [facility] [id number] 09:37:00 Test Item Value Reference Range Interpretation Comments Procalcitonin Lvl (test no gt See_Comment [Au tomated message] code = Procalcitonin Lvl) Th e system which generated this result transmitted ref erence range: <=0.10. The reference range was not used to interpr et this result as normal/abnormal . [place] 245222-10-16 09:37:00 Test Item Value Reference Range Interpretation Comments Glucose Lvl (test code = Glucose Lvl) 103 70-99 [facility] [id number] 09:37:00 Test Item Value Reference Range Interpretation Comments BUN (test code = BUN) 13 7-22 [facility] [id number] 09:37:00 Test Item Value Reference Range Interpretation Comments Creatinine Lvl (test code = Creatinine 0.67 0.50-1.40 Lvl) [place] [address]-10-16 09:37:00 Test Item Value Reference Range Interpretation Comments Sodium Lvl (test code = Sodium Lvl) 138 135-145 [facility] [id number] 09:37:00 Test Item Value Reference Range Interpretation Comments Potassium Lvl (test code = Potassium 3.7 3.5-5.1 Lvl) [facility] [place] [id number] 09:37:00 Test Item Value Reference Range Interpretation Comments Chloride Lvl (test code = Chloride Lvl) 98 95-109 [place] 245222-10-16 09:37:00 Test Item Value Reference Range Interpretation Comments CO2 (test code = CO2) 32 24-32 [place] 245222-10-16 09:37:00 Test Item Value Reference Range Interpretation Comments Calcium Lvl (test code = Calcium Lvl) 9.3 8.5-10.5 [facility] [place] [id number] 09:37:00 Test Item Value Reference Range Interpretation Comments Total Protein (test code = Total 7.5 6.4-8.4 Protein) [place] 245222-10-16 09:37:00 Test Item Value Reference Range Interpretation Comments Albumin Lvl (test code = Albumin Lvl) 3.0 3.5-5.0 [place] 245222-10-16 09:37:00 Test Item Value Reference Range Interpretation Comments ALT (test code = ALT) 18 See_Comment [Auto mated message] The system which ge nerated this result transmit fabiano reference range : <=65. The reference range was not used to interpr et this result as aleks l/abnormal. [facility] [id number] 09:37:00 Test Item Value Reference Range Interpretation Comments AST (test code = AST) 6 See_Comment [Auto mated message] The system which ge nerated this result transmit fabiano reference range : <=37. The reference range was not used to interpr et this result as aleks l/abnormal. [facility] [id number] 09:37:00 Test Item Value Reference Range Interpretation Comments Alk Phos (test code = Alk Phos) 118 39-136 [place] [address]-10-16 09:37:00 Test Item Value Reference Range Interpretation Comments Bili Total (test code = Bili Total) 0.4 0.2-1.3 [place] [address]-10-16 09:37:00 Test Item Value Reference Range Interpretation Comments AGAP (test code = AGAP) 11.7 10.0-20.0 [facility] [id number] 09:37:00 Test Item Value Reference Range Interpretation Comments B/C Ratio (test code = B/C Ratio) 19 1 6-25 [place] [address]-10-16 09:37:00 Test Item Value Reference Range Interpretation Comments Globulin (test code = Globulin) 4.5 2.7-4.2 [place] [address]-10-16 09:37:00 Test Item Value Reference Range Interpretation Comments A/G Ratio (test code = A/G Ratio) 0.7 1 0.7-1.6 [place] [address]-10-16 09:37:00 Test Item Value Reference Range Interpretation Comments eGFR (test code = eGFR) 105 [place] [address]-10-16 09:37:00 Test Item Value Reference Range Interpretation Comments Phosphorus (test code = Phosphorus) 3.7 2.5-4.5 [place] [address]-10-16 09:37:00 Test Item Value Reference Range Interpretation Comments Magnesium Lvl (test code = Magnesium 2.1 1.8-2.4 Lvl) [place] [address]-10-16 09:37:00 Test Item Value Reference Range Interpretation Comments Procalcitonin Lvl (test no gt See_Comment [Au tomated message] code = Procalcitonin Lvl) Th e system which generated this result transmitted ref erence range: <=0.10. The reference range was not used to interpr et this result as normal/abnormal . [place] [address]-10-16 09:37:00 Test Item Value Reference Range Interpretation Comments WBC (test code = WBC) 15.7 3.7-10.4 [place] [address]-10-16 09:37:00 Test Item Value Reference Range Interpretation Comments RBC (test code = RBC) 4.10 4.20-5.40 [place] [address]-10-16 09:37:00 Test Item Value Reference Range Interpretation Comments Hgb (test code = Hgb) 10.7 12.0-16.0 [place] [address]-10-16 09:37:00 Test Item Value Reference Range Interpretation Comments Hct (test code = Hct) 32.8 36.0-48.0 [place] [address]-10-16 09:37:00 Test Item Value Reference Range Interpretation Comments MCV (test code = MCV) 80.0 80.0-98.0 [facility] Dis[id number] 09:37:00 Test Item Value Reference Range Interpretation Comments MCH (test code = MCH) 26.1 pg 27.0-31.0 [facility] DistrictNbgpfaxRZSDANWMFE3771-27-06 09:37:00 Test Item Value Reference Range Interpretation Comments MCHC (test code = MCHC) 32.6 32.0-36.0 [facility] D[id number] 09:37:00 Test Item Value Reference Range Interpretation Comments RDW (test code = RDW) 16.4 11.5-14.5 [facility] Dis[id number] 09:37:00 Test Item Value Reference Range Interpretation Comments Platelet (test code = Platelet) 362 133-450 [facility] DistrictIhdfxkvATUCBXCVTY6448-60-17 09:37:00 Test Item Value Reference Range Interpretation Comments MPV (test code = MPV) 8.1 7.4-10.4 [facility] DistrictIffpuerPHKPJIYUDB8739-74-52 09:37:00 Test Item Value Reference Range Interpretation Comments Segs (test code = Segs) 76.4 45.0-75.0 [facility] DistrictKlcivsgTPMGKZFZOP8621-91-27 09:37:00 Test Item Value Reference Range Interpretation Comments Lymphocytes (test code = Lymphocytes) 13.3 20.0-40.0 [facility] DistrictWcqcfoqHFEDXXBRID8198-92-42 09:37:00 Test Item Value Reference Range Interpretation Comments Monocytes (test code = Monocytes) 5.7 2.0-12.0 [facility] DistrictDvkjyceTRTEJNZFVV8539-70-47 09:37:00 Test Item Value Reference Range Interpretation Comments Eosinophils (test code = 3.7 See_Comment [A utomated message] The Eosinophils) system which ge nerated this result tra nsmitted reference range : <=4.0. The reference r quynh was not used to int erpret this result as normal/abnormal . [facility] DistrictHmhgndnVEHKIZWWGC0727-49-54 09:37:00 Test Item Value Reference Range Interpretation Comments Basophils (test code = 0.9 See_Comment [Aut omated message] The Basophils) system which ge nerated this result tra nsmitted reference range : <=1.0. The reference r quynh was not used to int erpret this result as normal/abnormal . [place] [address]-10-16 09:37:00 Test Item Value Reference Range Interpretation Comments Neutrophils # (test code = Neutrophils 12.0 1.5-8.1 #) [place] [address]-10-16 09:37:00 Test Item Value Reference Range Interpretation Comments Lymphocytes # (test code = Lymphocytes 2.1 1.0-5.5 #) [place] [address]-10-16 09:37:00 Test Item Value Reference Range Interpretation Comments Monocytes # (test code 0.9 See_Comment [Aut omated message] The = Monocytes #) system which generated this result tra nsmitted reference range : <=0.8. The reference r quynh was not used to int erpret this result as normal/abnormal . [place] [address]-10-16 09:37:00 Test Item Value Reference Range Interpretation Comments Eosinophils # (test code 0.6 See_Comment [A utomated message] The = Eosinophils #) system whic h generated this result tra nsmitted reference range : <=0.5. The reference r quynh was not used to int erpret this result as normal/abnormal . [place] [address]-10-16 09:37:00 Test Item Value Reference Range Interpretation Comments Basophils # (test code 0.1 See_Comment [Aut omated message] The = Basophils #) system which generated this result tra nsmitted reference range : <=0.2. The reference r quynh was not used to int erpret this result as normal/abnormal . [place] 245222-10-16 09:37:00 Test Item Value Reference Range Interpretation Comments Procalcitonin Lvl (test no gt See_Comment [Au tomated message] code = Procalcitonin Lvl) Th e system which generated this result transmitted ref erence range: <=0.10. The reference range was not used to interpr et this result as normal/abnormal . [place] [address]-10-16 09:37:00 Test Item Value Reference Range Interpretation Comments Glucose Lvl (test code = Glucose Lvl) 103 70-99 [place] [address]-10-16 09:37:00 Test Item Value Reference Range Interpretation Comments BUN (test code = BUN) 13 7-22 [facility] [id number] 09:37:00 Test Item Value Reference Range Interpretation Comments Creatinine Lvl (test code = Creatinine 0.67 0.50-1.40 Lvl) [place] [address]-10-16 09:37:00 Test Item Value Reference Range Interpretation Comments Sodium Lvl (test code = Sodium Lvl) 138 135-145 [place] 245222-10-16 09:37:00 Test Item Value Reference Range Interpretation Comments Potassium Lvl (test code = Potassium 3.7 3.5-5.1 Lvl) [place] [address]-10-16 09:37:00 Test Item Value Reference Range Interpretation Comments Chloride Lvl (test code = Chloride Lvl) 98 95-109 [place] 245222-10-16 09:37:00 Test Item Value Reference Range Interpretation Comments CO2 (test code = CO2) 32 24-32 [place] [address]-10-16 09:37:00 Test Item Value Reference Range Interpretation Comments Calcium Lvl (test code = Calcium Lvl) 9.3 8.5-10.5 [place] [address]-10-16 09:37:00 Test Item Value Reference Range Interpretation Comments Total Protein (test code = Total 7.5 6.4-8.4 Protein) [place] [address]-10-16 09:37:00 Test Item Value Reference Range Interpretation Comments Albumin Lvl (test code = Albumin Lvl) 3.0 3.5-5.0 [place] 245222-10-16 09:37:00 Test Item Value Reference Range Interpretation Comments ALT (test code = ALT) 18 See_Comment [Auto mated message] The system which ge nerated this result transmit fabiano reference range : <=65. The reference range was not used to interpr et this result as aleks l/abnormal. [place] [address]-10-16 09:37:00 Test Item Value Reference Range Interpretation Comments AST (test code = AST) 6 See_Comment [Auto mated message] The system which ge nerated this result transmit fabiano reference range : <=37. The reference range was not used to interpr et this result as aleks l/abnormal. [place] [address]-10-16 09:37:00 Test Item Value Reference Range Interpretation Comments Alk Phos (test code = Alk Phos) 118 39-136 [facility]2022-10-16 09:37:00 Test Item Value Reference Range Interpretation Comments Bili Total (test code = Bili Total) 0.4 0.2-1.3 [place] 245222-10-16 09:37:00 Test Item Value Reference Range Interpretation Comments AGAP (test code = AGAP) 11.7 10.0-20.0 [place] 245222-10-16 09:37:00 Test Item Value Reference Range Interpretation Comments B/C Ratio (test code = B/C Ratio) 19 1 6-25 [place] [address]-10-16 09:37:00 Test Item Value Reference Range Interpretation Comments Globulin (test code = Globulin) 4.5 2.7-4.2 [place] 245222-10-16 09:37:00 Test Item Value Reference Range Interpretation Comments A/G Ratio (test code = A/G Ratio) 0.7 1 0.7-1.6 [place] [address]-10-16 09:37:00 Test Item Value Reference Range Interpretation Comments eGFR (test code = eGFR) 105 [place] 245222-10-16 09:37:00 Test Item Value Reference Range Interpretation Comments Phosphorus (test code = Phosphorus) 3.7 2.5-4.5 [place] 245222-10-16 09:37:00 Test Item Value Reference Range Interpretation Comments Magnesium Lvl (test code = Magnesium 2.1 1.8-2.4 Lvl) [place] 774022-10-16 09:37:00 Test Item Value Reference Range Interpretation Comments Procalcitonin Lvl (test no gt See_Comment [Au tomated message] code = Procalcitonin Lvl) Th e system which generated this result transmitted ref erence range: <=0.10. The reference range was not used to interpr et this result as normal/abnormal . [facility] DistrictJnjfpynZBYGISESRQ1862-18-38 09:37:00 Test Item Value Reference Range Interpretation Comments WBC (test code = WBC) 15.7 3.7-10.4 [place] 495052-10-16 09:37:00 Test Item Value Reference Range Interpretation Comments RBC (test code = RBC) 4.10 4.20-5.40 [place] 495052-10-16 09:37:00 Test Item Value Reference Range Interpretation Comments Hgb (test code = Hgb) 10.7 12.0-16.0 [place] 495052-10-16 09:37:00 Test Item Value Reference Range Interpretation Comments Hct (test code = Hct) 32.8 36.0-48.0 [place] 495052-10-16 09:37:00 Test Item Value Reference Range Interpretation Comments MCV (test code = MCV) 80.0 80.0-98.0 [place] 495052-10-16 09:37:00 Test Item Value Reference Range Interpretation Comments MCH (test code = MCH) 26.1 pg 27.0-31.0 [facility] DistrictPxipcgeHGOFIGSKJZ9239-02-68 09:37:00 Test Item Value Reference Range Interpretation Comments MCHC (test code = MCHC) 32.6 32.0-36.0 [facility] DistrictMldhoqeRDQQMKXQAT6730-74-58 09:37:00 Test Item Value Reference Range Interpretation Comments RDW (test code = RDW) 16.4 11.5-14.5 [place] [address]-10-16 09:37:00 Test Item Value Reference Range Interpretation Comments Platelet (test code = Platelet) 362 133-450 [facility] DistrictIpvggylDIWNTGZVPV0670-52-75 09:37:00 Test Item Value Reference Range Interpretation Comments MPV (test code = MPV) 8.1 7.4-10.4 [place] [address]-10-16 09:37:00 Test Item Value Reference Range Interpretation Comments Segs (test code = Segs) 76.4 45.0-75.0 [place] 495052-10-16 09:37:00 Test Item Value Reference Range Interpretation Comments Lymphocytes (test code = Lymphocytes) 13.3 20.0-40.0 [place] [address]-10-16 09:37:00 Test Item Value Reference Range Interpretation Comments Monocytes (test code = Monocytes) 5.7 2.0-12.0 [place] [address]-10-16 09:37:00 Test Item Value Reference Range Interpretation Comments Eosinophils (test code = 3.7 See_Comment [A utomated message] The Eosinophils) system which ge nerated this result tra nsmitted reference range : <=4.0. The reference r quynh was not used to int erpret this result as normal/abnormal . [place] [address]-10-16 09:37:00 Test Item Value Reference Range Interpretation Comments Basophils (test code = 0.9 See_Comment [Aut omated message] The Basophils) system which ge nerated this result tra nsmitted reference range : <=1.0. The reference r quynh was not used to int erpret this result as normal/abnormal . [place] [address]-10-16 09:37:00 Test Item Value Reference Range Interpretation Comments Neutrophils # (test code = Neutrophils 12.0 1.5-8.1 #) [place] 495052-10-16 09:37:00 Test Item Value Reference Range Interpretation Comments Lymphocytes # (test code = Lymphocytes 2.1 1.0-5.5 #) [place] [address]-10-16 09:37:00 Test Item Value Reference Range Interpretation Comments Monocytes # (test code 0.9 See_Comment [Aut omated message] The = Monocytes #) system which generated this result tra nsmitted reference range : <=0.8. The reference r quynh was not used to int erpret this result as normal/abnormal . [place] [address]-10-16 09:37:00 Test Item Value Reference Range Interpretation Comments Eosinophils # (test code 0.6 See_Comment [A utomated message] The = Eosinophils #) system whic h generated this result tra nsmitted reference range : <=0.5. The reference r quynh was not used to int erpret this result as normal/abnormal . [place] [address]-10-16 09:37:00 Test Item Value Reference Range Interpretation Comments Basophils # (test code 0.1 See_Comment [Aut omated message] The = Basophils #) system which generated this result tra nsmitted reference range : <=0.2. The reference r quynh was not used to int erpret this result as normal/abnormal . [facility] [id number] 18:28:21 Test Item Value Reference Range Interpretation Comments LDH (test code = LDH) 154 98-192 [facility] [id number] 18:28:21 Test Item Value Reference Range Interpretation Comments LDH (test code = LDH) 154 98-192 [place] [address]-10-15 18:28:21 Test Item Value Reference Range Interpretation Comments LDH (test code = LDH) 154 98-192 [place] [address]-10-15 18:28:21 Test Item Value Reference Range Interpretation Comments LDH (test code = LDH) 154 98-192 [place] [address]-10-15 18:28:21 Test Item Value Reference Range Interpretation Comments LDH (test code = LDH) 154 98-192 [place] [address]-10-15 18:28:21 Test Item Value Reference Range Interpretation Comments LDH (test code = LDH) 154 98-192 [address]10-15 18:28:21 Test Item Value Reference Range Interpretation Comments LDH (test code = LDH) 154 98-192 [place] [address]-10-15 18:28:21 Test Item Value Reference Range Interpretation Comments LDH (test code = LDH) 154 98-192 [place] [address]-10-15 18:28:21 Test Item Value Reference Range Interpretation Comments LDH (test code = LDH) 154 98-192 [address]10-15 18:28:21 Test Item Value Reference Range Interpretation Comments LDH (test code = LDH) 154 98-192 [place] [address]-10-15 18:28:21 Test Item Value Reference Range Interpretation Comments LDH (test code = LDH) 154 98-192 [place] [address]-10-15 18:28:21 Test Item Value Reference Range Interpretation Comments LDH (test code = LDH) 154 98-192 [place] [address]-10-15 18:28:21 Test Item Value Reference Range Interpretation Comments LDH (test code = LDH) 154 98-192 [address]10-15 18:28:21 Test Item Value Reference Range Interpretation Comments LDH (test code = LDH) 154 98-192 [address]10-15 18:28:21 Test Item Value Reference Range Interpretation Comments LDH (test code = LDH) 154 98-192 [address]10-15 18:28:21 Test Item Value Reference Range Interpretation Comments LDH (test code = LDH) 154 98-192 [place] 495052-10-15 11:23:00 Test Item Value Reference Range Interpretation Comments Platelet (test code = Platelet) 342 133-450 [facility] DistrictAyjlwpzAKLDLYXHLR0261-85-16 11:23:00 Test Item Value Reference Range Interpretation Comments MPV (test code = MPV) 8.1 7.4-10.4 [place] [address]-10-15 11:23:00 Test Item Value Reference Range Interpretation Comments Segs (test code = Segs) 82.0 45.0-75.0 [place] 495052-10-15 11:23:00 Test Item Value Reference Range Interpretation Comments Lymphocytes (test code = Lymphocytes) 8.9 20.0-40.0 [place] 495052-10-15 11:23:00 Test Item Value Reference Range Interpretation Comments Monocytes (test code = Monocytes) 6.0 2.0-12.0 [place] 495052-10-15 11:23:00 Test Item Value Reference Range Interpretation Comments Eosinophils (test code = 2.8 See_Comment [A utomated message] The Eosinophils) system which ge nerated this result tra nsmitted reference range : <=4.0. The reference r quynh was not used to int erpret this result as normal/abnormal . [facility] DistrictDhhludlHZEDYUXXJP2104-69-18 11:23:00 Test Item Value Reference Range Interpretation Comments Basophils (test code = 0.3 See_Comment [Aut omated message] The Basophils) system which ge nerated this result tra nsmitted reference range : <=1.0. The reference r quynh was not used to int erpret this result as normal/abnormal . [facility] DistrictPfnebraVPFTCKHIXK7614-87-74 11:23:00 Test Item Value Reference Range Interpretation Comments Neutrophils # (test code = Neutrophils 12.7 1.5-8.1 #) [place] 495052-10-15 11:23:00 Test Item Value Reference Range Interpretation Comments Lymphocytes # (test code = Lymphocytes 1.4 1.0-5.5 #) [place] [address]-10-15 11:23:00 Test Item Value Reference Range Interpretation Comments Monocytes # (test code 0.9 See_Comment [Aut omated message] The = Monocytes #) system which generated this result tra nsmitted reference range : <=0.8. The reference r quynh was not used to int erpret this result as normal/abnormal . [facility]EA4489[facility]98-95 11:23:00 Test Item Value Reference Range Interpretation Comments Eosinophils # (test code 0.4 See_Comment [A utomated message] The = Eosinophils #) system whic h generated this result tra nsmitted reference range : <=0.5. The reference r quynh was not used to int erpret this result as normal/abnormal . [facility]2022-10-15 11:23:00 Test Item Value Reference Range Interpretation Comments Glucose Lvl (test code = Glucose Lvl) 96 70-99 [place] 245222-10-15 11:23:00 Test Item Value Reference Range Interpretation Comments BUN (test code = BUN) 13 7-22 [place] 245222-10-15 11:23:00 Test Item Value Reference Range Interpretation Comments Creatinine Lvl (test code = Creatinine 0.57 0.50-1.40 Lvl) [facility]2022-10-15 11:23:00 Test Item Value Reference Range Interpretation Comments Sodium Lvl (test code = Sodium Lvl) 137 135-145 [place] 245222-10-15 11:23:00 Test Item Value Reference Range Interpretation Comments Potassium Lvl (test code = Potassium 3.6 3.5-5.1 Lvl) [place] 245222-10-15 11:23:00 Test Item Value Reference Range Interpretation Comments Chloride Lvl (test code = Chloride Lvl) 100 95-109 [facility]2022-10-15 11:23:00 Test Item Value Reference Range Interpretation Comments CO2 (test code = CO2) 30 24-32 [facility]2022-10-15 11:23:00 Test Item Value Reference Range Interpretation Comments Calcium Lvl (test code = Calcium Lvl) 9.2 8.5-10.5 [facility]2022-10-15 11:23:00 Test Item Value Reference Range Interpretation Comments AGAP (test code = AGAP) 10.6 10.0-20.0 [place] 245222-10-15 11:23:00 Test Item Value Reference Range Interpretation Comments eGFR (test code = eGFR) 109 [facility]2022-10-15 11:23:00 Test Item Value Reference Range Interpretation Comments Magnesium Lvl (test code = Magnesium 2.1 1.8-2.4 Lvl) [facility]2022-10-15 11:23:00 Test Item Value Reference Range Interpretation Comments Phosphorus (test code = Phosphorus) 4.5 2.5-4.5 [place] 495052-10-15 11:23:00 Test Item Value Reference Range Interpretation Comments WBC (test code = WBC) 15.4 3.7-10.4 [facility] DistrictNmmgamkOZJNTBLVCQ2649-89-40 11:23:00 Test Item Value Reference Range Interpretation Comments RBC (test code = RBC) 3.93 4.20-5.40 [facility] DistrictAzqjhwsSYXZQFPMBC4054-41-66 11:23:00 Test Item Value Reference Range Interpretation Comments Hgb (test code = Hgb) 10.3 12.0-16.0 [place] [address]-10-15 11:23:00 Test Item Value Reference Range Interpretation Comments Hct (test code = Hct) 31.8 36.0-48.0 [facility] DistrictAlwlemvEOAVNQPBDU3169-56-53 11:23:00 Test Item Value Reference Range Interpretation Comments MCV (test code = MCV) 80.8 80.0-98.0 [place] [address]-10-15 11:23:00 Test Item Value Reference Range Interpretation Comments MCH (test code = MCH) 26.1 pg 27.0-31.0 [facility] DistrictEnwwqibVTIEYILSSR7936-40-86 11:23:00 Test Item Value Reference Range Interpretation Comments MCHC (test code = MCHC) 32.3 32.0-36.0 [facility] DistrictAnxsbuhNXYWBYAADR7480-81-49 11:23:00 Test Item Value Reference Range Interpretation Comments RDW (test code = RDW) 16.4 11.5-14.5 [place] [address]-10-15 11:23:00 Test Item Value Reference Range Interpretation Comments Platelet (test code = Platelet) 342 133-450 [facility] DistrictMllpcyfJWWDDCBKIZ7795-09-55 11:23:00 Test Item Value Reference Range Interpretation Comments MPV (test code = MPV) 8.1 7.4-10.4 [place] [address]-10-15 11:23:00 Test Item Value Reference Range Interpretation Comments Segs (test code = Segs) 82.0 45.0-75.0 [place] 495052-10-15 11:23:00 Test Item Value Reference Range Interpretation Comments Lymphocytes (test code = Lymphocytes) 8.9 20.0-40.0 [place] [address]-10-15 11:23:00 Test Item Value Reference Range Interpretation Comments Monocytes (test code = Monocytes) 6.0 2.0-12.0 [place] [address]-10-15 11:23:00 Test Item Value Reference Range Interpretation Comments Eosinophils (test code = 2.8 See_Comment [A utomated message] The Eosinophils) system which ge nerated this result tra nsmitted reference range : <=4.0. The reference r quynh was not used to int erpret this result as normal/abnormal . [place] [address]-10-15 11:23:00 Test Item Value Reference Range Interpretation Comments Basophils (test code = 0.3 See_Comment [Aut omated message] The Basophils) system which ge nerated this result tra nsmitted reference range : <=1.0. The reference r quynh was not used to int erpret this result as normal/abnormal . [place] [address]-10-15 11:23:00 Test Item Value Reference Range Interpretation Comments Neutrophils # (test code = Neutrophils 12.7 1.5-8.1 #) [place] [address]-10-15 11:23:00 Test Item Value Reference Range Interpretation Comments Lymphocytes # (test code = Lymphocytes 1.4 1.0-5.5 #) [place] [address]-10-15 11:23:00 Test Item Value Reference Range Interpretation Comments Monocytes # (test code 0.9 See_Comment [Aut omated message] The = Monocytes #) system which generated this result tra nsmitted reference range : <=0.8. The reference r quynh was not used to int erpret this result as normal/abnormal . [place] [address]-10-15 11:23:00 Test Item Value Reference Range Interpretation Comments Eosinophils # (test code 0.4 See_Comment [A utomated message] The = Eosinophils #) system ic h generated this result tra nsmitted reference range : <=0.5. The reference r quynh was not used to int erpret this result as normal/abnormal . [facility]2022-10-15 11:23:00 Test Item Value Reference Range Interpretation Comments Glucose Lvl (test code = Glucose Lvl) 96 70-99 [place] 245222-10-15 11:23:00 Test Item Value Reference Range Interpretation Comments BUN (test code = BUN) 13 01-18 [facility]2022-10-15 11:23:00 Test Item Value Reference Range Interpretation Comments Creatinine Lvl (test code = Creatinine 0.57 0.50-1.40 Lvl) [facility]2022-10-15 11:23:00 Test Item Value Reference Range Interpretation Comments Sodium Lvl (test code = Sodium Lvl) 137 135-145 [facility] [id number] 11:23:00 Test Item Value Reference Range Interpretation Comments Potassium Lvl (test code = Potassium 3.6 3.5-5.1 Lvl) [facility] VIdeokePENDING S[facility] TO [facility] [id number] 11:23:00 Test Item Value Reference Range Interpretation Comments Chloride Lvl (test code = Chloride Lvl) 100 95-109 [facility]2022-10-15 11:23:00 Test Item Value Reference Range Interpretation Comments CO2 (test code = CO2) 30 24-32 [facility]ALTHXNJXR5177-72-05 11:23:00 Test Item Value Reference Range Interpretation Comments Calcium Lvl (test code = Calcium Lvl) 9.2 8.5-10.5 [facility]okeP[facility]ALTHMZGHO4640-95-16 11:23:00 Test Item Value Reference Range Interpretation Comments AGAP (test code = AGAP) 10.6 10.0-20.0 [facility] [id number] 11:23:00 Test Item Value Reference Range Interpretation Comments Glucose Lvl (test code = Glucose Lvl) 96 70-99 [facility]2022-10-15 11:23:00 Test Item Value Reference Range Interpretation Comments BUN (test code = BUN) 13 01-18 [place] 245222-10-15 11:23:00 Test Item Value Reference Range Interpretation Comments Creatinine Lvl (test code = Creatinine 0.57 0.50-1.40 Lvl) [facility]2022-10-15 11:23:00 Test Item Value Reference Range Interpretation Comments Sodium Lvl (test code = Sodium Lvl) 137 135-145 [place] 245222-10-15 11:23:00 Test Item Value Reference Range Interpretation Comments Potassium Lvl (test code = Potassium 3.6 3.5-5.1 Lvl) [place] 245222-10-15 11:23:00 Test Item Value Reference Range Interpretation Comments Chloride Lvl (test code = Chloride Lvl) 100 95-109 [place] 245222-10-15 11:23:00 Test Item Value Reference Range Interpretation Comments CO2 (test code = CO2) 30 24-32 [place] 245222-10-15 11:23:00 Test Item Value Reference Range Interpretation Comments Calcium Lvl (test code = Calcium Lvl) 9.2 8.5-10.5 [place] 245222-10-15 11:23:00 Test Item Value Reference Range Interpretation Comments eGFR (test code = eGFR) 109 [place] [address]-10-15 11:23:00 Test Item Value Reference Range Interpretation Comments AGAP (test code = AGAP) 10.6 10.0-20.0 [place] 245222-10-15 11:23:00 Test Item Value Reference Range Interpretation Comments eGFR (test code = eGFR) 109 [place] [address]-10-15 11:23:00 Test Item Value Reference Range Interpretation Comments Magnesium Lvl (test code = Magnesium 2.1 1.8-2.4 Lvl) [place] 245222-10-15 11:23:00 Test Item Value Reference Range Interpretation Comments Phosphorus (test code = Phosphorus) 4.5 2.5-4.5 [place] [address]-10-15 11:23:00 Test Item Value Reference Range Interpretation Comments WBC (test code = WBC) 15.4 3.7-10.4 [place] [address]-10-15 11:23:00 Test Item Value Reference Range Interpretation Comments RBC (test code = RBC) 3.93 4.20-5.40 [place] [address]-10-15 11:23:00 Test Item Value Reference Range Interpretation Comments Hgb (test code = Hgb) 10.3 12.0-16.0 [place] [address]-10-15 11:23:00 Test Item Value Reference Range Interpretation Comments Hct (test code = Hct) 31.8 36.0-48.0 [facility] MarshallSonfqnpTHREWNULAT4858-16-79 11:23:00 Test Item Value Reference Range Interpretation Comments MCV (test code = MCV) 80.8 80.0-98.0 [place] [address]-10-15 11:23:00 Test Item Value Reference Range Interpretation Comments MCH (test code = MCH) 26.1 pg 27.0-31.0 [facility]2022-10-15 11:23:00 Test Item Value Reference Range Interpretation Comments Magnesium Lvl (test code = Magnesium 2.1 1.8-2.4 Lvl) [facility] DistrictSutxbslVXTSZWZWBL4194-19-04 11:23:00 Test Item Value Reference Range Interpretation Comments MCHC (test code = MCHC) 32.3 32.0-36.0 [facility] DistrictCjzqpgyCHCCACNSOU5936-63-25 11:23:00 Test Item Value Reference Range Interpretation Comments RDW (test code = RDW) 16.4 11.5-14.5 [place] [address]-10-15 11:23:00 Test Item Value Reference Range Interpretation Comments Platelet (test code = Platelet) 342 133-450 [facility] DistrictZzukbxqMJKXHRFUHC9729-70-63 11:23:00 Test Item Value Reference Range Interpretation Comments MPV (test code = MPV) 8.1 7.4-10.4 [place] [address]-10-15 11:23:00 Test Item Value Reference Range Interpretation Comments Segs (test code = Segs) 82.0 45.0-75.0 [place] [address]-10-15 11:23:00 Test Item Value Reference Range Interpretation Comments Lymphocytes (test code = Lymphocytes) 8.9 20.0-40.0 [place] [address]-10-15 11:23:00 Test Item Value Reference Range Interpretation Comments Monocytes (test code = Monocytes) 6.0 2.0-12.0 [place] [address]-10-15 11:23:00 Test Item Value Reference Range Interpretation Comments Eosinophils (test code = 2.8 See_Comment [A utomated message] The Eosinophils) system which ge nerated this result tra nsmitted reference range : <=4.0. The reference r quynh was not used to int erpret this result as normal/abnormal . [facility] DistrictVzsapgcZVPKWLDGBC4575-87-50 11:23:00 Test Item Value Reference Range Interpretation Comments Basophils (test code = 0.3 See_Comment [Aut omated message] The Basophils) system which ge nerated this result tra nsmitted reference range : <=1.0. The reference r quynh was not used to int erpret this result as normal/abnormal . [facility] DistrictPavgnevNPMPBSMUES1556-53-98 11:23:00 Test Item Value Reference Range Interpretation Comments Neutrophils # (test code = Neutrophils 12.7 1.5-8.1 #) [facility]2022-10-15 11:23:00 Test Item Value Reference Range Interpretation Comments Phosphorus (test code = Phosphorus) 4.5 2.5-4.5 [facility] DistrictHdvsfttGDMJLYFUYG6593-56-55 11:23:00 Test Item Value Reference Range Interpretation Comments Lymphocytes # (test code = Lymphocytes 1.4 1.0-5.5 #) [facility] DistrictDqxuishWVMOFJEXHJ7162-96-93 11:23:00 Test Item Value Reference Range Interpretation Comments Monocytes # (test code 0.9 See_Comment [Aut omated message] The = Monocytes #) system which generated this result tra nsmitted reference range : <=0.8. The reference r quynh was not used to int erpret this result as normal/abnormal . [facility] DistrictVzkefvkRZVRDPAMAJ7947-75-12 11:23:00 Test Item Value Reference Range Interpretation Comments Eosinophils # (test code 0.4 See_Comment [A utomated message] The = Eosinophils #) system whic h generated this result tra nsmitted reference range : <=0.5. The reference r quynh was not used to int erpret this result as normal/abnormal . [facility] DistrictBkkqlldUBZSLQUSWB1286-08-37 11:23:00 Test Item Value Reference Range Interpretation Comments WBC (test code = WBC) 15.4 3.7-10.4 [place] 495052-10-15 11:23:00 Test Item Value Reference Range Interpretation Comments RBC (test code = RBC) 3.93 4.20-5.40 [place] 495052-10-15 11:23:00 Test Item Value Reference Range Interpretation Comments Hgb (test code = Hgb) 10.3 12.0-16.0 [place] [address]-10-15 11:23:00 Test Item Value Reference Range Interpretation Comments Hct (test code = Hct) 31.8 36.0-48.0 [place] [address]-10-15 11:23:00 Test Item Value Reference Range Interpretation Comments MCV (test code = MCV) 80.8 80.0-98.0 [place] [address]-10-15 11:23:00 Test Item Value Reference Range Interpretation Comments MCH (test code = MCH) 26.1 pg 27.0-31.0 [place] [address]-10-15 11:23:00 Test Item Value Reference Range Interpretation Comments MCHC (test code = MCHC) 32.3 32.0-36.0 [place] [address]-10-15 11:23:00 Test Item Value Reference Range Interpretation Comments RDW (test code = RDW) 16.4 11.5-14.5 [place] [address]-10-15 11:23:00 Test Item Value Reference Range Interpretation Comments Platelet (test code = Platelet) 342 133-450 [place] 495052-10-15 11:23:00 Test Item Value Reference Range Interpretation Comments MPV (test code = MPV) 8.1 7.4-10.4 [place] [address]-10-15 11:23:00 Test Item Value Reference Range Interpretation Comments Segs (test code = Segs) 82.0 45.0-75.0 [place] [address]-10-15 11:23:00 Test Item Value Reference Range Interpretation Comments Lymphocytes (test code = Lymphocytes) 8.9 20.0-40.0 [place] [address]-10-15 11:23:00 Test Item Value Reference Range Interpretation Comments Monocytes (test code = Monocytes) 6.0 2.0-12.0 [place] [address]-10-15 11:23:00 Test Item Value Reference Range Interpretation Comments Eosinophils (test code = 2.8 See_Comment [A utomated message] The Eosinophils) system which ge nerated this result tra nsmitted reference range : <=4.0. The reference r quynh was not used to int erpret this result as normal/abnormal . [place] 495052-10-15 11:23:00 Test Item Value Reference Range Interpretation Comments Basophils (test code = 0.3 See_Comment [Aut omated message] The Basophils) system which ge nerated this result tra nsmitted reference range : <=1.0. The reference r quynh was not used to int erpret this result as normal/abnormal . [place] [address]-10-15 11:23:00 Test Item Value Reference Range Interpretation Comments Neutrophils # (test code = Neutrophils 12.7 1.5-8.1 #) [place] 495052-10-15 11:23:00 Test Item Value Reference Range Interpretation Comments Lymphocytes # (test code = Lymphocytes 1.4 1.0-5.5 #) [place] [address]-10-15 11:23:00 Test Item Value Reference Range Interpretation Comments Monocytes # (test code 0.9 See_Comment [Aut omated message] The = Monocytes #) system which generated this result tra nsmitted reference range : <=0.8. The reference r quynh was not used to int erpret this result as normal/abnormal . [place] [address]-10-15 11:23:00 Test Item Value Reference Range Interpretation Comments Eosinophils # (test code 0.4 See_Comment [A utomated message] The = Eosinophils #) system whic h generated this result tra nsmitted reference range : <=0.5. The reference r quynh was not used to int erpret this result as normal/abnormal . [facility]2022-10-15 11:23:00 Test Item Value Reference Range Interpretation Comments Glucose Lvl (test code = Glucose Lvl) 96 70-99 [place] 245222-10-15 11:23:00 Test Item Value Reference Range Interpretation Comments BUN (test code = BUN) 13 7-22 [place] [address]-10-15 11:23:00 Test Item Value Reference Range Interpretation Comments Creatinine Lvl (test code = Creatinine 0.57 0.50-1.40 Lvl) [facility]2022-10-15 11:23:00 Test Item Value Reference Range Interpretation Comments Sodium Lvl (test code = Sodium Lvl) 137 135-145 [place] 245222-10-15 11:23:00 Test Item Value Reference Range Interpretation Comments Potassium Lvl (test code = Potassium 3.6 3.5-5.1 Lvl) [place] 245222-10-15 11:23:00 Test Item Value Reference Range Interpretation Comments Chloride Lvl (test code = Chloride Lvl) 100 95-109 [place] 245222-10-15 11:23:00 Test Item Value Reference Range Interpretation Comments CO2 (test code = CO2) 30 24-32 [place] 245222-10-15 11:23:00 Test Item Value Reference Range Interpretation Comments Calcium Lvl (test code = Calcium Lvl) 9.2 8.5-10.5 [place] [address]-10-15 11:23:00 Test Item Value Reference Range Interpretation Comments AGAP (test code = AGAP) 10.6 10.0-20.0 [place] 245222-10-15 11:23:00 Test Item Value Reference Range Interpretation Comments eGFR (test code = eGFR) 109 [place] 245222-10-15 11:23:00 Test Item Value Reference Range Interpretation Comments Magnesium Lvl (test code = Magnesium 2.1 1.8-2.4 Lvl) [place] [address]-10-15 11:23:00 Test Item Value Reference Range Interpretation Comments Phosphorus (test code = Phosphorus) 4.5 2.5-4.5 [place] [address]-10-15 11:23:00 Test Item Value Reference Range Interpretation Comments WBC (test code = WBC) 15.4 3.7-10.4 [place] 495052-10-15 11:23:00 Test Item Value Reference Range Interpretation Comments RBC (test code = RBC) 3.93 4.20-5.40 [place] [address]-10-15 11:23:00 Test Item Value Reference Range Interpretation Comments Hgb (test code = Hgb) 10.3 12.0-16.0 [place] [address]-10-15 11:23:00 Test Item Value Reference Range Interpretation Comments Hct (test code = Hct) 31.8 36.0-48.0 [place] [address]-10-15 11:23:00 Test Item Value Reference Range Interpretation Comments MCV (test code = MCV) 80.8 80.0-98.0 [place] [address]-10-15 11:23:00 Test Item Value Reference Range Interpretation Comments MCH (test code = MCH) 26.1 pg 27.0-31.0 [facility] DistrictHaqcugeULQLBEBTFU4745-16-65 11:23:00 Test Item Value Reference Range Interpretation Comments MCHC (test code = MCHC) 32.3 32.0-36.0 [facility] DistrictDaciqdnVMNBJTTVAH2702-59-21 11:23:00 Test Item Value Reference Range Interpretation Comments RDW (test code = RDW) 16.4 11.5-14.5 [facility] DistrictSikbsdeFVLQLXKEZB4153-55-66 11:23:00 Test Item Value Reference Range Interpretation Comments Platelet (test code = Platelet) 342 133-450 [facility] DistrictYxxpotdPKFQHIIJPU2485-97-73 11:23:00 Test Item Value Reference Range Interpretation Comments MPV (test code = MPV) 8.1 7.4-10.4 [facility] DistrictBxdgwbvDQOPPGPHHW4909-17-49 11:23:00 Test Item Value Reference Range Interpretation Comments Segs (test code = Segs) 82.0 45.0-75.0 [facility] DistrictAuutjwrZPAHITBNZD1834-80-46 11:23:00 Test Item Value Reference Range Interpretation Comments Lymphocytes (test code = Lymphocytes) 8.9 20.0-40.0 [facility] DistrictSybtjwbDHXHEKRSBA0130-67-34 11:23:00 Test Item Value Reference Range Interpretation Comments Monocytes (test code = Monocytes) 6.0 2.0-12.0 [facility] DistrictIyxiufgMYSTFOBSDD0333-16-40 11:23:00 Test Item Value Reference Range Interpretation Comments Eosinophils (test code = 2.8 See_Comment [A utomated message] The Eosinophils) system which ge nerated this result tra nsmitted reference range : <=4.0. The reference r quynh was not used to int erpret this result as normal/abnormal . [facility] DistrictQdzghkfVXXCLSGLYG8556-32-61 11:23:00 Test Item Value Reference Range Interpretation Comments Basophils (test code = 0.3 See_Comment [Aut omated message] The Basophils) system which ge nerated this result tra nsmitted reference range : <=1.0. The reference r quynh was not used to int erpret this result as normal/abnormal . [facility] DistrictHdfssbwRYNBVNFEGH0271-66-22 11:23:00 Test Item Value Reference Range Interpretation Comments Neutrophils # (test code = Neutrophils 12.7 1.5-8.1 #) [place] [address]-10-15 11:23:00 Test Item Value Reference Range Interpretation Comments Lymphocytes # (test code = Lymphocytes 1.4 1.0-5.5 #) [place] [address]-10-15 11:23:00 Test Item Value Reference Range Interpretation Comments Monocytes # (test code 0.9 See_Comment [Aut omated message] The = Monocytes #) system which generated this result tra nsmitted reference range : <=0.8. The reference r quynh was not used to int erpret this result as normal/abnormal . [place] [address]-10-15 11:23:00 Test Item Value Reference Range Interpretation Comments Eosinophils # (test code 0.4 See_Comment [A utomated message] The = Eosinophils #) system whic h generated this result tra nsmitted reference range : <=0.5. The reference r quynh was not used to int erpret this result as normal/abnormal . [place] 245222-10-15 11:23:00 Test Item Value Reference Range Interpretation Comments Glucose Lvl (test code = Glucose Lvl) 96 70-99 [place] [address]-10-15 11:23:00 Test Item Value Reference Range Interpretation Comments BUN (test code = BUN) 13 7-22 [place] [address]-10-15 11:23:00 Test Item Value Reference Range Interpretation Comments Creatinine Lvl (test code = Creatinine 0.57 0.50-1.40 Lvl) [place] 245222-10-15 11:23:00 Test Item Value Reference Range Interpretation Comments Sodium Lvl (test code = Sodium Lvl) 137 135-145 [place] [address]-10-15 11:23:00 Test Item Value Reference Range Interpretation Comments Potassium Lvl (test code = Potassium 3.6 3.5-5.1 Lvl) [place] [address]-10-15 11:23:00 Test Item Value Reference Range Interpretation Comments Chloride Lvl (test code = Chloride Lvl) 100 95-109 [place] 245222-10-15 11:23:00 Test Item Value Reference Range Interpretation Comments CO2 (test code = CO2) 30 24-32 [place] [address]-10-15 11:23:00 Test Item Value Reference Range Interpretation Comments Calcium Lvl (test code = Calcium Lvl) 9.2 8.5-10.5 [place] 245222-10-15 11:23:00 Test Item Value Reference Range Interpretation Comments AGAP (test code = AGAP) 10.6 10.0-20.0 [place] [address]-10-15 11:23:00 Test Item Value Reference Range Interpretation Comments eGFR (test code = eGFR) 109 [place] 245222-10-15 11:23:00 Test Item Value Reference Range Interpretation Comments Magnesium Lvl (test code = Magnesium 2.1 1.8-2.4 Lvl) [place] 245222-10-15 11:23:00 Test Item Value Reference Range Interpretation Comments Phosphorus (test code = Phosphorus) 4.5 2.5-4.5 [place] 495052-10-15 11:23:00 Test Item Value Reference Range Interpretation Comments WBC (test code = WBC) 15.4 3.7-10.4 [place] [address]-10-15 11:23:00 Test Item Value Reference Range Interpretation Comments RBC (test code = RBC) 3.93 4.20-5.40 [place] [address]-10-15 11:23:00 Test Item Value Reference Range Interpretation Comments Hgb (test code = Hgb) 10.3 12.0-16.0 [place] [address]-10-15 11:23:00 Test Item Value Reference Range Interpretation Comments Hct (test code = Hct) 31.8 36.0-48.0 [place] [address]-10-15 11:23:00 Test Item Value Reference Range Interpretation Comments MCV (test code = MCV) 80.8 80.0-98.0 [place] [address]-10-15 11:23:00 Test Item Value Reference Range Interpretation Comments MCH (test code = MCH) 26.1 pg 27.0-31.0 [place] [address]-10-15 11:23:00 Test Item Value Reference Range Interpretation Comments MCHC (test code = MCHC) 32.3 32.0-36.0 [place] [address]-10-15 11:23:00 Test Item Value Reference Range Interpretation Comments RDW (test code = RDW) 16.4 11.5-14.5 [place] 495052-10-15 11:23:00 Test Item Value Reference Range Interpretation Comments Platelet (test code = Platelet) 342 133-450 [place] 495052-10-15 11:23:00 Test Item Value Reference Range Interpretation Comments MPV (test code = MPV) 8.1 7.4-10.4 [place] 495052-10-15 11:23:00 Test Item Value Reference Range Interpretation Comments Segs (test code = Segs) 82.0 45.0-75.0 [place] 495052-10-15 11:23:00 Test Item Value Reference Range Interpretation Comments Lymphocytes (test code = Lymphocytes) 8.9 20.0-40.0 [place] 495052-10-15 11:23:00 Test Item Value Reference Range Interpretation Comments Monocytes (test code = Monocytes) 6.0 2.0-12.0 [place] [address]-10-15 11:23:00 Test Item Value Reference Range Interpretation Comments Eosinophils (test code = 2.8 See_Comment [A utomated message] The Eosinophils) system which ge nerated this result tra nsmitted reference range : <=4.0. The reference r quynh was not used to int erpret this result as normal/abnormal . [facility] DistrictLumkpdzBDOSOILGHQ6222-81-64 11:23:00 Test Item Value Reference Range Interpretation Comments Basophils (test code = 0.3 See_Comment [Aut omated message] The Basophils) system which ge nerated this result tra nsmitted reference range : <=1.0. The reference r quynh was not used to int erpret this result as normal/abnormal . [place] 495052-10-15 11:23:00 Test Item Value Reference Range Interpretation Comments Neutrophils # (test code = Neutrophils 12.7 1.5-8.1 #) [place] [address]-10-15 11:23:00 Test Item Value Reference Range Interpretation Comments Lymphocytes # (test code = Lymphocytes 1.4 1.0-5.5 #) [place] 495052-10-15 11:23:00 Test Item Value Reference Range Interpretation Comments Monocytes # (test code 0.9 See_Comment [Aut omated message] The = Monocytes #) system which generated this result tra nsmitted reference range : <=0.8. The reference r quynh was not used to int erpret this result as normal/abnormal . [facility] DistrictQwwjbfkLYGZEACJGA6113-06-22 11:23:00 Test Item Value Reference Range Interpretation Comments Eosinophils # (test code 0.4 See_Comment [A utomated message] The = Eosinophils #) system whic h generated this result tra nsmitted reference range : <=0.5. The reference r quynh was not used to int erpret this result as normal/abnormal . [facility] [id number] 11:23:00 Test Item Value Reference Range Interpretation Comments Glucose Lvl (test code = Glucose Lvl) 96 70-99 [place] 245222-10-15 11:23:00 Test Item Value Reference Range Interpretation Comments BUN (test code = BUN) 13 7-22 [place] 245222-10-15 11:23:00 Test Item Value Reference Range Interpretation Comments Creatinine Lvl (test code = Creatinine 0.57 0.50-1.40 Lvl) [place] [address]-10-15 11:23:00 Test Item Value Reference Range Interpretation Comments Sodium Lvl (test code = Sodium Lvl) 137 135-145 [place] 245222-10-15 11:23:00 Test Item Value Reference Range Interpretation Comments Potassium Lvl (test code = Potassium 3.6 3.5-5.1 Lvl) [facility] [place] [id number] 11:23:00 Test Item Value Reference Range Interpretation Comments Chloride Lvl (test code = Chloride Lvl) 100 95-109 [place] 245222-10-15 11:23:00 Test Item Value Reference Range Interpretation Comments CO2 (test code = CO2) 30 24-32 [facility] [id number] 11:23:00 Test Item Value Reference Range Interpretation Comments Calcium Lvl (test code = Calcium Lvl) 9.2 8.5-10.5 [place] 245222-10-15 11:23:00 Test Item Value Reference Range Interpretation Comments AGAP (test code = AGAP) 10.6 10.0-20.0 [facility] [id number] 11:23:00 Test Item Value Reference Range Interpretation Comments eGFR (test code = eGFR) 109 [facility]2022-10-15 11:23:00 Test Item Value Reference Range Interpretation Comments Magnesium Lvl (test code = Magnesium 2.1 1.8-2.4 Lvl) [place] 245222-10-15 11:23:00 Test Item Value Reference Range Interpretation Comments Phosphorus (test code = Phosphorus) 4.5 2.5-4.5 [place] [address]-10-15 11:23:00 Test Item Value Reference Range Interpretation Comments WBC (test code = WBC) 15.4 3.7-10.4 [place] [address]-10-15 11:23:00 Test Item Value Reference Range Interpretation Comments RBC (test code = RBC) 3.93 4.20-5.40 [place] [address]-10-15 11:23:00 Test Item Value Reference Range Interpretation Comments Hgb (test code = Hgb) 10.3 12.0-16.0 [place] [address]-10-15 11:23:00 Test Item Value Reference Range Interpretation Comments Hct (test code = Hct) 31.8 36.0-48.0 [place] [address]-10-15 11:23:00 Test Item Value Reference Range Interpretation Comments MCV (test code = MCV) 80.8 80.0-98.0 [place] [address]-10-15 11:23:00 Test Item Value Reference Range Interpretation Comments MCH (test code = MCH) 26.1 pg 27.0-31.0 [place] [address]-10-15 11:23:00 Test Item Value Reference Range Interpretation Comments MCHC (test code = MCHC) 32.3 32.0-36.0 [place] [address]-10-15 11:23:00 Test Item Value Reference Range Interpretation Comments RDW (test code = RDW) 16.4 11.5-14.5 [place] 495052-10-15 11:23:00 Test Item Value Reference Range Interpretation Comments Platelet (test code = Platelet) 342 133-450 [facility] DistrictRzeeemvTAATVYCCQS2346-68-20 11:23:00 Test Item Value Reference Range Interpretation Comments MPV (test code = MPV) 8.1 7.4-10.4 [place] [address]-10-15 11:23:00 Test Item Value Reference Range Interpretation Comments Segs (test code = Segs) 82.0 45.0-75.0 [place] 495052-10-15 11:23:00 Test Item Value Reference Range Interpretation Comments Lymphocytes (test code = Lymphocytes) 8.9 20.0-40.0 [place] [address]-10-15 11:23:00 Test Item Value Reference Range Interpretation Comments Monocytes (test code = Monocytes) 6.0 2.0-12.0 [place] [address]-10-15 11:23:00 Test Item Value Reference Range Interpretation Comments Eosinophils (test code = 2.8 See_Comment [A utomated message] The Eosinophils) system which ge nerated this result tra nsmitted reference range : <=4.0. The reference r quynh was not used to int erpret this result as normal/abnormal . [place] [address]-10-15 11:23:00 Test Item Value Reference Range Interpretation Comments Basophils (test code = 0.3 See_Comment [Aut omated message] The Basophils) system which ge nerated this result tra nsmitted reference range : <=1.0. The reference r quynh was not used to int erpret this result as normal/abnormal . [place] [address]-10-15 11:23:00 Test Item Value Reference Range Interpretation Comments Neutrophils # (test code = Neutrophils 12.7 1.5-8.1 #) [place] [address]-10-15 11:23:00 Test Item Value Reference Range Interpretation Comments Lymphocytes # (test code = Lymphocytes 1.4 1.0-5.5 #) [place] [address]-10-15 11:23:00 Test Item Value Reference Range Interpretation Comments Monocytes # (test code 0.9 See_Comment [Aut omated message] The = Monocytes #) system which generated this result tra nsmitted reference range : <=0.8. The reference r quynh was not used to int erpret this result as normal/abnormal . [place] [address]-10-15 11:23:00 Test Item Value Reference Range Interpretation Comments Eosinophils # (test code 0.4 See_Comment [A utomated message] The = Eosinophils #) system whic h generated this result tra nsmitted reference range : <=0.5. The reference r quynh was not used to int erpret this result as normal/abnormal . [facility]2022-10-15 11:23:00 Test Item Value Reference Range Interpretation Comments Glucose Lvl (test code = Glucose Lvl) 96 70-99 [place] 245222-10-15 11:23:00 Test Item Value Reference Range Interpretation Comments BUN (test code = BUN) 13 7-22 [place] 245222-10-15 11:23:00 Test Item Value Reference Range Interpretation Comments Creatinine Lvl (test code = Creatinine 0.57 0.50-1.40 Lvl) [facility]2022-10-15 11:23:00 Test Item Value Reference Range Interpretation Comments Sodium Lvl (test code = Sodium Lvl) 137 135-145 [place] 245222-10-15 11:23:00 Test Item Value Reference Range Interpretation Comments Potassium Lvl (test code = Potassium 3.6 3.5-5.1 Lvl) [place] 245222-10-15 11:23:00 Test Item Value Reference Range Interpretation Comments Chloride Lvl (test code = Chloride Lvl) 100 95-109 [facility]2022-10-15 11:23:00 Test Item Value Reference Range Interpretation Comments CO2 (test code = CO2) 30 24-32 [place] 245222-10-15 11:23:00 Test Item Value Reference Range Interpretation Comments Calcium Lvl (test code = Calcium Lvl) 9.2 8.5-10.5 [place] 245222-10-15 11:23:00 Test Item Value Reference Range Interpretation Comments AGAP (test code = AGAP) 10.6 10.0-20.0 [place] 245222-10-15 11:23:00 Test Item Value Reference Range Interpretation Comments eGFR (test code = eGFR) 109 [place] 245222-10-15 11:23:00 Test Item Value Reference Range Interpretation Comments Magnesium Lvl (test code = Magnesium 2.1 1.8-2.4 Lvl) [place] 245222-10-15 11:23:00 Test Item Value Reference Range Interpretation Comments Phosphorus (test code = Phosphorus) 4.5 2.5-4.5 [facility]QW6304-39-92 11:23:00 Test Item Value Reference Range Interpretation Comments WBC (test code = WBC) 15.4 3.7-10.4 [facility] DistrictMhniydvNZLFNKHEIK9372-73-76 11:23:00 Test Item Value Reference Range Interpretation Comments RBC (test code = RBC) 3.93 4.20-5.40 [facility] DistrictKjpxyblGLZQXIYUHD9142-99-12 11:23:00 Test Item Value Reference Range Interpretation Comments Hgb (test code = Hgb) 10.3 12.0-16.0 [facility] DistrictMqionjjVGSSECEMVK6039-45-84 11:23:00 Test Item Value Reference Range Interpretation Comments Hct (test code = Hct) 31.8 36.0-48.0 [facility] DistrictEllpcgkJSETJCYCUM1559-21-36 11:23:00 Test Item Value Reference Range Interpretation Comments MCV (test code = MCV) 80.8 80.0-98.0 [facility] DistrictTdgsfsaIYTZOYZVTE4201-21-79 11:23:00 Test Item Value Reference Range Interpretation Comments MCH (test code = MCH) 26.1 pg 27.0-31.0 [facility] DistrictGxajbtsYPZGGRHUVC6775-13-34 11:23:00 Test Item Value Reference Range Interpretation Comments MCHC (test code = MCHC) 32.3 32.0-36.0 [facility] DistrictJuzvzcgZGENVBZWCN8325-05-86 11:23:00 Test Item Value Reference Range Interpretation Comments RDW (test code = RDW) 16.4 11.5-14.5 [facility] DistrictIcanrnsRSTZJJZZFR9139-44-07 11:23:00 Test Item Value Reference Range Interpretation Comments Platelet (test code = Platelet) 342 133-450 [facility] DistrictUjirapfLKTSCRBMPR3713-50-69 11:23:00 Test Item Value Reference Range Interpretation Comments MPV (test code = MPV) 8.1 7.4-10.4 [facility] DistrictAxocfmpXJHTJNHXJN5783-71-66 11:23:00 Test Item Value Reference Range Interpretation Comments Segs (test code = Segs) 82.0 45.0-75.0 [facility] DistrictArnpbvaPXFSLSBRFB2984-04-40 11:23:00 Test Item Value Reference Range Interpretation Comments Lymphocytes (test code = Lymphocytes) 8.9 20.0-40.0 [place] [address]-10-15 11:23:00 Test Item Value Reference Range Interpretation Comments Monocytes (test code = Monocytes) 6.0 2.0-12.0 [place] [address]-10-15 11:23:00 Test Item Value Reference Range Interpretation Comments Eosinophils (test code = 2.8 See_Comment [A utomated message] The Eosinophils) system which ge nerated this result tra nsmitted reference range : <=4.0. The reference r quynh was not used to int erpret this result as normal/abnormal . [place] [address]-10-15 11:23:00 Test Item Value Reference Range Interpretation Comments Basophils (test code = 0.3 See_Comment [Aut omated message] The Basophils) system which ge nerated this result tra nsmitted reference range : <=1.0. The reference r quynh was not used to int erpret this result as normal/abnormal . [place] [address]-10-15 11:23:00 Test Item Value Reference Range Interpretation Comments Neutrophils # (test code = Neutrophils 12.7 1.5-8.1 #) [address]10-15 11:23:00 Test Item Value Reference Range Interpretation Comments Lymphocytes # (test code = Lymphocytes 1.4 1.0-5.5 #) [place] [address]-10-15 11:23:00 Test Item Value Reference Range Interpretation Comments Monocytes # (test code 0.9 See_Comment [Aut omated message] The = Monocytes #) system which generated this result tra nsmitted reference range : <=0.8. The reference r quynh was not used to int erpret this result as normal/abnormal . [place] [address]-10-15 11:23:00 Test Item Value Reference Range Interpretation Comments Eosinophils # (test code 0.4 See_Comment [A utomated message] The = Eosinophils #) system whic h generated this result tra nsmitted reference range : <=0.5. The reference r quynh was not used to int erpret this result as normal/abnormal . [facility] [id number] 11:23:00 Test Item Value Reference Range Interpretation Comments Glucose Lvl (test code = Glucose Lvl) 96 70-99 [facility] [id number] 11:23:00 Test Item Value Reference Range Interpretation Comments BUN (test code = BUN) 13 7-22 [place] 245222-10-15 11:23:00 Test Item Value Reference Range Interpretation Comments Creatinine Lvl (test code = Creatinine 0.57 0.50-1.40 Lvl) [place] 245222-10-15 11:23:00 Test Item Value Reference Range Interpretation Comments Sodium Lvl (test code = Sodium Lvl) 137 135-145 [place] 245222-10-15 11:23:00 Test Item Value Reference Range Interpretation Comments Potassium Lvl (test code = Potassium 3.6 3.5-5.1 Lvl) [place] 245222-10-15 11:23:00 Test Item Value Reference Range Interpretation Comments Chloride Lvl (test code = Chloride Lvl) 100 95-109 [place] 245222-10-15 11:23:00 Test Item Value Reference Range Interpretation Comments CO2 (test code = CO2) 30 24-32 [place] 245222-10-15 11:23:00 Test Item Value Reference Range Interpretation Comments Calcium Lvl (test code = Calcium Lvl) 9.2 8.5-10.5 [facility]2022-10-15 11:23:00 Test Item Value Reference Range Interpretation Comments AGAP (test code = AGAP) 10.6 10.0-20.0 [place] 245222-10-15 11:23:00 Test Item Value Reference Range Interpretation Comments eGFR (test code = eGFR) 109 [place] 245222-10-15 11:23:00 Test Item Value Reference Range Interpretation Comments Magnesium Lvl (test code = Magnesium 2.1 1.8-2.4 Lvl) [place] 245222-10-15 11:23:00 Test Item Value Reference Range Interpretation Comments Phosphorus (test code = Phosphorus) 4.5 2.5-4.5 [facility] DistrictXihielyKLLSXPQXIO2796-93-51 11:23:00 Test Item Value Reference Range Interpretation Comments WBC (test code = WBC) 15.4 3.7-10.4 [place] 495052-10-15 11:23:00 Test Item Value Reference Range Interpretation Comments RBC (test code = RBC) 3.93 4.20-5.40 [place] 495052-10-15 11:23:00 Test Item Value Reference Range Interpretation Comments Hgb (test code = Hgb) 10.3 12.0-16.0 [place] [address]-10-15 11:23:00 Test Item Value Reference Range Interpretation Comments Hct (test code = Hct) 31.8 36.0-48.0 [place] [address]-10-15 11:23:00 Test Item Value Reference Range Interpretation Comments MCV (test code = MCV) 80.8 80.0-98.0 [place] [address]-10-15 11:23:00 Test Item Value Reference Range Interpretation Comments MCH (test code = MCH) 26.1 pg 27.0-31.0 [place] [address]-10-15 11:23:00 Test Item Value Reference Range Interpretation Comments MCHC (test code = MCHC) 32.3 32.0-36.0 [place] 495052-10-15 11:23:00 Test Item Value Reference Range Interpretation Comments RDW (test code = RDW) 16.4 11.5-14.5 [place] [address]-10-15 11:23:00 Test Item Value Reference Range Interpretation Comments Platelet (test code = Platelet) 342 133-450 [facility] DistrictEohyxyjJMWMUFKXQN9085-22-23 11:23:00 Test Item Value Reference Range Interpretation Comments MPV (test code = MPV) 8.1 7.4-10.4 [place] [address]-10-15 11:23:00 Test Item Value Reference Range Interpretation Comments Segs (test code = Segs) 82.0 45.0-75.0 [place] [address]-10-15 11:23:00 Test Item Value Reference Range Interpretation Comments Lymphocytes (test code = Lymphocytes) 8.9 20.0-40.0 [place] [address]-10-15 11:23:00 Test Item Value Reference Range Interpretation Comments Monocytes (test code = Monocytes) 6.0 2.0-12.0 [place] [address]-10-15 11:23:00 Test Item Value Reference Range Interpretation Comments Eosinophils (test code = 2.8 See_Comment [A utomated message] The Eosinophils) system which ge nerated this result tra nsmitted reference range : <=4.0. The reference r quynh was not used to int erpret this result as normal/abnormal . [place] [address]-10-15 11:23:00 Test Item Value Reference Range Interpretation Comments Basophils (test code = 0.3 See_Comment [Aut omated message] The Basophils) system which ge nerated this result tra nsmitted reference range : <=1.0. The reference r quynh was not used to int erpret this result as normal/abnormal . [place] 495052-10-15 11:23:00 Test Item Value Reference Range Interpretation Comments Neutrophils # (test code = Neutrophils 12.7 1.5-8.1 #) [place] 495052-10-15 11:23:00 Test Item Value Reference Range Interpretation Comments Lymphocytes # (test code = Lymphocytes 1.4 1.0-5.5 #) [facility]DDDB2885[facility]23 11:23:00 Test Item Value Reference Range Interpretation Comments Monocytes # (test code 0.9 See_Comment [Aut omated message] The = Monocytes #) system which generated this result tra nsmitted reference range : <=0.8. The reference r quynh was not used to int erpret this result as normal/abnormal . [facility] DistrictMnsshgaVDFNHWYOKC9503-88-31 11:23:00 Test Item Value Reference Range Interpretation Comments Eosinophils # (test code 0.4 See_Comment [A utomated message] The = Eosinophils #) system whic h generated this result tra nsmitted reference range : <=0.5. The reference r quynh was not used to int erpret this result as normal/abnormal . [facility] [id number] 11:23:00 Test Item Value Reference Range Interpretation Comments Glucose Lvl (test code = Glucose Lvl) 96 70-99 [facility] [id number] 11:23:00 Test Item Value Reference Range Interpretation Comments BUN (test code = BUN) 13 7-22 [facility] [id number] 11:23:00 Test Item Value Reference Range Interpretation Comments Creatinine Lvl (test code = Creatinine 0.57 0.50-1.40 Lvl) [place] 245222-10-15 11:23:00 Test Item Value Reference Range Interpretation Comments Sodium Lvl (test code = Sodium Lvl) 137 135-145 [place] 245222-10-15 11:23:00 Test Item Value Reference Range Interpretation Comments Potassium Lvl (test code = Potassium 3.6 3.5-5.1 Lvl) [place] 245222-10-15 11:23:00 Test Item Value Reference Range Interpretation Comments Chloride Lvl (test code = Chloride Lvl) 100 95-109 [place] 245222-10-15 11:23:00 Test Item Value Reference Range Interpretation Comments CO2 (test code = CO2) 30 24-32 [place] [address]-10-15 11:23:00 Test Item Value Reference Range Interpretation Comments Calcium Lvl (test code = Calcium Lvl) 9.2 8.5-10.5 [place] 245222-10-15 11:23:00 Test Item Value Reference Range Interpretation Comments AGAP (test code = AGAP) 10.6 10.0-20.0 [place] 245222-10-15 11:23:00 Test Item Value Reference Range Interpretation Comments eGFR (test code = eGFR) 109 [place] 245222-10-15 11:23:00 Test Item Value Reference Range Interpretation Comments Magnesium Lvl (test code = Magnesium 2.1 1.8-2.4 Lvl) [place] 245222-10-15 11:23:00 Test Item Value Reference Range Interpretation Comments Phosphorus (test code = Phosphorus) 4.5 2.5-4.5 [place] 495052-10-15 11:23:00 Test Item Value Reference Range Interpretation Comments WBC (test code = WBC) 15.4 3.7-10.4 [place] [address]-10-15 11:23:00 Test Item Value Reference Range Interpretation Comments RBC (test code = RBC) 3.93 4.20-5.40 [place] [address]-10-15 11:23:00 Test Item Value Reference Range Interpretation Comments Hgb (test code = Hgb) 10.3 12.0-16.0 [place] [address]-10-15 11:23:00 Test Item Value Reference Range Interpretation Comments Hct (test code = Hct) 31.8 36.0-48.0 [place] [address]-10-15 11:23:00 Test Item Value Reference Range Interpretation Comments MCV (test code = MCV) 80.8 80.0-98.0 [place] [address]-10-15 11:23:00 Test Item Value Reference Range Interpretation Comments MCH (test code = MCH) 26.1 pg 27.0-31.0 [place] 495052-10-15 11:23:00 Test Item Value Reference Range Interpretation Comments MCHC (test code = MCHC) 32.3 32.0-36.0 [place] [address]-10-15 11:23:00 Test Item Value Reference Range Interpretation Comments RDW (test code = RDW) 16.4 11.5-14.5 [place] [address]-10-15 11:23:00 Test Item Value Reference Range Interpretation Comments Platelet (test code = Platelet) 342 133-450 [place] 495052-10-15 11:23:00 Test Item Value Reference Range Interpretation Comments MPV (test code = MPV) 8.1 7.4-10.4 [place] [address]-10-15 11:23:00 Test Item Value Reference Range Interpretation Comments Segs (test code = Segs) 82.0 45.0-75.0 [place] [address]-10-15 11:23:00 Test Item Value Reference Range Interpretation Comments Lymphocytes (test code = Lymphocytes) 8.9 20.0-40.0 [place] [address]-10-15 11:23:00 Test Item Value Reference Range Interpretation Comments Monocytes (test code = Monocytes) 6.0 2.0-12.0 [place] [address]-10-15 11:23:00 Test Item Value Reference Range Interpretation Comments Eosinophils (test code = 2.8 See_Comment [A utomated message] The Eosinophils) system which ge nerated this result tra nsmitted reference range : <=4.0. The reference r quynh was not used to int erpret this result as normal/abnormal . [place] [address]-10-15 11:23:00 Test Item Value Reference Range Interpretation Comments Basophils (test code = 0.3 See_Comment [Aut omated message] The Basophils) system which ge nerated this result tra nsmitted reference range : <=1.0. The reference r quynh was not used to int erpret this result as normal/abnormal . [place] [address]-10-15 11:23:00 Test Item Value Reference Range Interpretation Comments Neutrophils # (test code = Neutrophils 12.7 1.5-8.1 #) [place] [address]-10-15 11:23:00 Test Item Value Reference Range Interpretation Comments Lymphocytes # (test code = Lymphocytes 1.4 1.0-5.5 #) [place] [address]-10-15 11:23:00 Test Item Value Reference Range Interpretation Comments Monocytes # (test code 0.9 See_Comment [Aut omated message] The = Monocytes #) system which generated this result tra nsmitted reference range : <=0.8. The reference r quynh was not used to int erpret this result as normal/abnormal . [place] [address]-10-15 11:23:00 Test Item Value Reference Range Interpretation Comments Eosinophils # (test code 0.4 See_Comment [A utomated message] The = Eosinophils #) system whic h generated this result tra nsmitted reference range : <=0.5. The reference r quynh was not used to int erpret this result as normal/abnormal . [place] [address]-10-15 11:23:00 Test Item Value Reference Range Interpretation Comments Glucose Lvl (test code = Glucose Lvl) 96 70-99 [place] [address]-10-15 11:23:00 Test Item Value Reference Range Interpretation Comments BUN (test code = BUN) 13 7-22 [place] [address]-10-15 11:23:00 Test Item Value Reference Range Interpretation Comments Creatinine Lvl (test code = Creatinine 0.57 0.50-1.40 Lvl) [place] [address]-10-15 11:23:00 Test Item Value Reference Range Interpretation Comments Sodium Lvl (test code = Sodium Lvl) 137 135-145 [place] [address]-10-15 11:23:00 Test Item Value Reference Range Interpretation Comments Potassium Lvl (test code = Potassium 3.6 3.5-5.1 Lvl) [place] [address]-10-15 11:23:00 Test Item Value Reference Range Interpretation Comments Chloride Lvl (test code = Chloride Lvl) 100 95-109 [place] 245222-10-15 11:23:00 Test Item Value Reference Range Interpretation Comments CO2 (test code = CO2) 30 24-32 [place] [address]-10-15 11:23:00 Test Item Value Reference Range Interpretation Comments Calcium Lvl (test code = Calcium Lvl) 9.2 8.5-10.5 [place] 245222-10-15 11:23:00 Test Item Value Reference Range Interpretation Comments AGAP (test code = AGAP) 10.6 10.0-20.0 [place] [address]-10-15 11:23:00 Test Item Value Reference Range Interpretation Comments eGFR (test code = eGFR) 109 [place] 245222-10-15 11:23:00 Test Item Value Reference Range Interpretation Comments Magnesium Lvl (test code = Magnesium 2.1 1.8-2.4 Lvl) [place] 245222-10-15 11:23:00 Test Item Value Reference Range Interpretation Comments Phosphorus (test code = Phosphorus) 4.5 2.5-4.5 [place] [address]-10-15 11:23:00 Test Item Value Reference Range Interpretation Comments WBC (test code = WBC) 15.4 3.7-10.4 [place] [address]-10-15 11:23:00 Test Item Value Reference Range Interpretation Comments RBC (test code = RBC) 3.93 4.20-5.40 [place] [address]-10-15 11:23:00 Test Item Value Reference Range Interpretation Comments Hgb (test code = Hgb) 10.3 12.0-16.0 [place] [address]-10-15 11:23:00 Test Item Value Reference Range Interpretation Comments Hct (test code = Hct) 31.8 36.0-48.0 [place] [address]-10-15 11:23:00 Test Item Value Reference Range Interpretation Comments MCV (test code = MCV) 80.8 80.0-98.0 [place] [address]-10-15 11:23:00 Test Item Value Reference Range Interpretation Comments MCH (test code = MCH) 26.1 pg 27.0-31.0 [place] [address]-10-15 11:23:00 Test Item Value Reference Range Interpretation Comments MCHC (test code = MCHC) 32.3 32.0-36.0 [place] [address]-10-15 11:23:00 Test Item Value Reference Range Interpretation Comments RDW (test code = RDW) 16.4 11.5-14.5 [place] [address]-10-15 11:23:00 Test Item Value Reference Range Interpretation Comments Platelet (test code = Platelet) 342 133-450 [place] 495052-10-15 11:23:00 Test Item Value Reference Range Interpretation Comments MPV (test code = MPV) 8.1 7.4-10.4 [place] [address]-10-15 11:23:00 Test Item Value Reference Range Interpretation Comments Segs (test code = Segs) 82.0 45.0-75.0 [place] [address]-10-15 11:23:00 Test Item Value Reference Range Interpretation Comments Lymphocytes (test code = Lymphocytes) 8.9 20.0-40.0 [place] [address]-10-15 11:23:00 Test Item Value Reference Range Interpretation Comments Monocytes (test code = Monocytes) 6.0 2.0-12.0 [place] 495052-10-15 11:23:00 Test Item Value Reference Range Interpretation Comments Eosinophils (test code = 2.8 See_Comment [A utomated message] The Eosinophils) system which ge nerated this result tra nsmitted reference range : <=4.0. The reference r quynh was not used to int erpret this result as normal/abnormal . [facility] DistrictRmnmkllVIXOHYJOOM6923-14-61 11:23:00 Test Item Value Reference Range Interpretation Comments Basophils (test code = 0.3 See_Comment [Aut omated message] The Basophils) system which ge nerated this result tra nsmitted reference range : <=1.0. The reference r quynh was not used to int erpret this result as normal/abnormal . [place] [address]-10-15 11:23:00 Test Item Value Reference Range Interpretation Comments Neutrophils # (test code = Neutrophils 12.7 1.5-8.1 #) [place] [address]-10-15 11:23:00 Test Item Value Reference Range Interpretation Comments Lymphocytes # (test code = Lymphocytes 1.4 1.0-5.5 #) [place] [address]-10-15 11:23:00 Test Item Value Reference Range Interpretation Comments Monocytes # (test code 0.9 See_Comment [Aut omated message] The = Monocytes #) system which generated this result tra nsmitted reference range : <=0.8. The reference r qunyh was not used to int erpret this result as normal/abnormal . [place] 495052-10-15 11:23:00 Test Item Value Reference Range Interpretation Comments Eosinophils # (test code 0.4 See_Comment [A utomated message] The = Eosinophils #) system whic h generated this result tra nsmitted reference range : <=0.5. The reference r quynh was not used to int erpret this result as normal/abnormal . [place] 245222-10-15 11:23:00 Test Item Value Reference Range Interpretation Comments Glucose Lvl (test code = Glucose Lvl) 96 70-99 [place] 245222-10-15 11:23:00 Test Item Value Reference Range Interpretation Comments BUN (test code = BUN) 13 7-22 [place] [address]-10-15 11:23:00 Test Item Value Reference Range Interpretation Comments Creatinine Lvl (test code = Creatinine 0.57 0.50-1.40 Lvl) [place] [address]-10-15 11:23:00 Test Item Value Reference Range Interpretation Comments Sodium Lvl (test code = Sodium Lvl) 137 135-145 [place] 245222-10-15 11:23:00 Test Item Value Reference Range Interpretation Comments Potassium Lvl (test code = Potassium 3.6 3.5-5.1 Lvl) [place] [address]-10-15 11:23:00 Test Item Value Reference Range Interpretation Comments Chloride Lvl (test code = Chloride Lvl) 100 95-109 [place] 245222-10-15 11:23:00 Test Item Value Reference Range Interpretation Comments CO2 (test code = CO2) 30 24-32 [place] [address]-10-15 11:23:00 Test Item Value Reference Range Interpretation Comments Calcium Lvl (test code = Calcium Lvl) 9.2 8.5-10.5 [place] 245222-10-15 11:23:00 Test Item Value Reference Range Interpretation Comments AGAP (test code = AGAP) 10.6 10.0-20.0 [place] 245222-10-15 11:23:00 Test Item Value Reference Range Interpretation Comments eGFR (test code = eGFR) 109 [place] 245222-10-15 11:23:00 Test Item Value Reference Range Interpretation Comments Magnesium Lvl (test code = Magnesium 2.1 1.8-2.4 Lvl) [place] 245222-10-15 11:23:00 Test Item Value Reference Range Interpretation Comments Phosphorus (test code = Phosphorus) 4.5 2.5-4.5 [place] [address]-10-15 11:23:00 Test Item Value Reference Range Interpretation Comments WBC (test code = WBC) 15.4 3.7-10.4 [place] [address]-10-15 11:23:00 Test Item Value Reference Range Interpretation Comments RBC (test code = RBC) 3.93 4.20-5.40 [place] [address]-10-15 11:23:00 Test Item Value Reference Range Interpretation Comments Hgb (test code = Hgb) 10.3 12.0-16.0 [place] [address]-10-15 11:23:00 Test Item Value Reference Range Interpretation Comments Hct (test code = Hct) 31.8 36.0-48.0 [place] [address]-10-15 11:23:00 Test Item Value Reference Range Interpretation Comments MCV (test code = MCV) 80.8 80.0-98.0 [place] [address]-10-15 11:23:00 Test Item Value Reference Range Interpretation Comments MCH (test code = MCH) 26.1 pg 27.0-31.0 [place] [address]-10-15 11:23:00 Test Item Value Reference Range Interpretation Comments MCHC (test code = MCHC) 32.3 32.0-36.0 [place] [address]-10-15 11:23:00 Test Item Value Reference Range Interpretation Comments RDW (test code = RDW) 16.4 11.5-14.5 [place] [address]-10-15 11:23:00 Test Item Value Reference Range Interpretation Comments Platelet (test code = Platelet) 342 133-450 [place] 495052-10-15 11:23:00 Test Item Value Reference Range Interpretation Comments MPV (test code = MPV) 8.1 7.4-10.4 [place] 495052-10-15 11:23:00 Test Item Value Reference Range Interpretation Comments Segs (test code = Segs) 82.0 45.0-75.0 [place] 495052-10-15 11:23:00 Test Item Value Reference Range Interpretation Comments Lymphocytes (test code = Lymphocytes) 8.9 20.0-40.0 [place] [address]-10-15 11:23:00 Test Item Value Reference Range Interpretation Comments Monocytes (test code = Monocytes) 6.0 2.0-12.0 [place] [address]-10-15 11:23:00 Test Item Value Reference Range Interpretation Comments Eosinophils (test code = 2.8 See_Comment [A utomated message] The Eosinophils) system which ge nerated this result tra nsmitted reference range : <=4.0. The reference r quynh was not used to int erpret this result as normal/abnormal . [facility] DistrictKdsxhjaYUDSUSIJFM2749-96-01 11:23:00 Test Item Value Reference Range Interpretation Comments Basophils (test code = 0.3 See_Comment [Aut omated message] The Basophils) system which ge nerated this result tra nsmitted reference range : <=1.0. The reference r quynh was not used to int erpret this result as normal/abnormal . [facility] DistrictCffvmvxKPFHGVSAVZ3592-26-45 11:23:00 Test Item Value Reference Range Interpretation Comments Neutrophils # (test code = Neutrophils 12.7 1.5-8.1 #) [place] [address]-10-15 11:23:00 Test Item Value Reference Range Interpretation Comments Lymphocytes # (test code = Lymphocytes 1.4 1.0-5.5 #) [place] [address]-10-15 11:23:00 Test Item Value Reference Range Interpretation Comments Monocytes # (test code 0.9 See_Comment [Aut omated message] The = Monocytes #) system which generated this result tra nsmitted reference range : <=0.8. The reference r quynh was not used to int erpret this result as normal/abnormal . [place] [address]-10-15 11:23:00 Test Item Value Reference Range Interpretation Comments Eosinophils # (test code 0.4 See_Comment [A utomated message] The = Eosinophils #) system LeTVic h generated this result tra nsmitted reference range : <=0.5. The reference r quynh was not used to int erpret this result as normal/abnormal . [place] 245222-10-15 11:23:00 Test Item Value Reference Range Interpretation Comments Glucose Lvl (test code = Glucose Lvl) 96 70-99 [place] 245222-10-15 11:23:00 Test Item Value Reference Range Interpretation Comments BUN (test code = BUN) 13 7-22 [place] 245222-10-15 11:23:00 Test Item Value Reference Range Interpretation Comments Creatinine Lvl (test code = Creatinine 0.57 0.50-1.40 Lvl) [facility]2022-10-15 11:23:00 Test Item Value Reference Range Interpretation Comments Sodium Lvl (test code = Sodium Lvl) 137 135-145 [place] 245222-10-15 11:23:00 Test Item Value Reference Range Interpretation Comments Potassium Lvl (test code = Potassium 3.6 3.5-5.1 Lvl) [place] 245222-10-15 11:23:00 Test Item Value Reference Range Interpretation Comments Chloride Lvl (test code = Chloride Lvl) 100 95-109 [place] 245222-10-15 11:23:00 Test Item Value Reference Range Interpretation Comments CO2 (test code = CO2) 30 24-32 [place] 245222-10-15 11:23:00 Test Item Value Reference Range Interpretation Comments Calcium Lvl (test code = Calcium Lvl) 9.2 8.5-10.5 [place] 245222-10-15 11:23:00 Test Item Value Reference Range Interpretation Comments AGAP (test code = AGAP) 10.6 10.0-20.0 [place] 245222-10-15 11:23:00 Test Item Value Reference Range Interpretation Comments eGFR (test code = eGFR) 109 [place] 245222-10-15 11:23:00 Test Item Value Reference Range Interpretation Comments Magnesium Lvl (test code = Magnesium 2.1 1.8-2.4 Lvl) [facility]2022-10-15 11:23:00 Test Item Value Reference Range Interpretation Comments Phosphorus (test code = Phosphorus) 4.5 2.5-4.5 [facility]WojsuqnFAMHUPGPMZ6104-69-04 11:23:00 Test Item Value Reference Range Interpretation Comments WBC (test code = WBC) 15.4 3.7-10.4 [facility] DistrictNjbskkfJRBNODDHCB2032-11-85 11:23:00 Test Item Value Reference Range Interpretation Comments RBC (test code = RBC) 3.93 4.20-5.40 [facility] DistrictTvtdvgmVFXPCTJMTB9448-08-64 11:23:00 Test Item Value Reference Range Interpretation Comments Hgb (test code = Hgb) 10.3 12.0-16.0 [facility] DistrictAxbjqznGMDXKEXSNV8622-40-97 11:23:00 Test Item Value Reference Range Interpretation Comments Hct (test code = Hct) 31.8 36.0-48.0 [facility] DistrictPdjodduNWWNJFKZWQ2154-05-91 11:23:00 Test Item Value Reference Range Interpretation Comments MCV (test code = MCV) 80.8 80.0-98.0 [facility] DistrictSemgmqcLRQGDSOZLG3429-13-04 11:23:00 Test Item Value Reference Range Interpretation Comments MCH (test code = MCH) 26.1 pg 27.0-31.0 [facility] DistrictTjxthmfORRUCCRICN8017-38-76 11:23:00 Test Item Value Reference Range Interpretation Comments MCHC (test code = MCHC) 32.3 32.0-36.0 [facility] DistrictAnitglkWCUTCTAFKW0734-27-18 11:23:00 Test Item Value Reference Range Interpretation Comments RDW (test code = RDW) 16.4 11.5-14.5 [facility] DistrictWjchcbiCQYYXQBYHC2437-41-56 11:23:00 Test Item Value Reference Range Interpretation Comments Platelet (test code = Platelet) 342 133-450 [facility] DistrictOgxmuvmNWYIUNKVNN8288-35-16 11:23:00 Test Item Value Reference Range Interpretation Comments MPV (test code = MPV) 8.1 7.4-10.4 [facility] DistrictRhazrusWODDSWHBUA7820-18-98 11:23:00 Test Item Value Reference Range Interpretation Comments Segs (test code = Segs) 82.0 45.0-75.0 [place] [address]-10-15 11:23:00 Test Item Value Reference Range Interpretation Comments Lymphocytes (test code = Lymphocytes) 8.9 20.0-40.0 [place] [address]-10-15 11:23:00 Test Item Value Reference Range Interpretation Comments Monocytes (test code = Monocytes) 6.0 2.0-12.0 [place] [address]-10-15 11:23:00 Test Item Value Reference Range Interpretation Comments Eosinophils (test code = 2.8 See_Comment [A utomated message] The Eosinophils) system which ge nerated this result tra nsmitted reference range : <=4.0. The reference r quynh was not used to int erpret this result as normal/abnormal . [place] [address]-10-15 11:23:00 Test Item Value Reference Range Interpretation Comments Basophils (test code = 0.3 See_Comment [Aut omated message] The Basophils) system which ge nerated this result tra nsmitted reference range : <=1.0. The reference r quynh was not used to int erpret this result as normal/abnormal . [place] [address]-10-15 11:23:00 Test Item Value Reference Range Interpretation Comments Neutrophils # (test code = Neutrophils 12.7 1.5-8.1 #) [place] [address]-10-15 11:23:00 Test Item Value Reference Range Interpretation Comments Lymphocytes # (test code = Lymphocytes 1.4 1.0-5.5 #) [place] [address]-10-15 11:23:00 Test Item Value Reference Range Interpretation Comments Monocytes # (test code 0.9 See_Comment [Aut omated message] The = Monocytes #) system which generated this result tra nsmitted reference range : <=0.8. The reference r quynh was not used to int erpret this result as normal/abnormal . [place] [address]-10-15 11:23:00 Test Item Value Reference Range Interpretation Comments Eosinophils # (test code 0.4 See_Comment [A utomated message] The = Eosinophils #) system whic h generated this result tra nsmitted reference range : <=0.5. The reference r quynh was not used to int erpret this result as normal/abnormal . [facility]2022-10-15 11:23:00 Test Item Value Reference Range Interpretation Comments Glucose Lvl (test code = Glucose Lvl) 96 70-99 [place] 245222-10-15 11:23:00 Test Item Value Reference Range Interpretation Comments BUN (test code = BUN) 13 7-22 [place] 245222-10-15 11:23:00 Test Item Value Reference Range Interpretation Comments Creatinine Lvl (test code = Creatinine 0.57 0.50-1.40 Lvl) [facility]2022-10-15 11:23:00 Test Item Value Reference Range Interpretation Comments Sodium Lvl (test code = Sodium Lvl) 137 135-145 [place] 245222-10-15 11:23:00 Test Item Value Reference Range Interpretation Comments Potassium Lvl (test code = Potassium 3.6 3.5-5.1 Lvl) [place] 245222-10-15 11:23:00 Test Item Value Reference Range Interpretation Comments Chloride Lvl (test code = Chloride Lvl) 100 95-109 [facility]2022-10-15 11:23:00 Test Item Value Reference Range Interpretation Comments CO2 (test code = CO2) 30 24-32 [facility]2022-10-15 11:23:00 Test Item Value Reference Range Interpretation Comments Calcium Lvl (test code = Calcium Lvl) 9.2 8.5-10.5 [facility]2022-10-15 11:23:00 Test Item Value Reference Range Interpretation Comments AGAP (test code = AGAP) 10.6 10.0-20.0 [facility]2022-10-15 11:23:00 Test Item Value Reference Range Interpretation Comments eGFR (test code = eGFR) 109 [place] 245222-10-15 11:23:00 Test Item Value Reference Range Interpretation Comments Magnesium Lvl (test code = Magnesium 2.1 1.8-2.4 Lvl) [facility]2022-10-15 11:23:00 Test Item Value Reference Range Interpretation Comments Phosphorus (test code = Phosphorus) 4.5 2.5-4.5 [facility] DistrictXymuvswBYIAUBMDUE7553-06-30 11:23:00 Test Item Value Reference Range Interpretation Comments WBC (test code = WBC) 15.4 3.7-10.4 [place] 495052-10-15 11:23:00 Test Item Value Reference Range Interpretation Comments RBC (test code = RBC) 3.93 4.20-5.40 [place] 495052-10-15 11:23:00 Test Item Value Reference Range Interpretation Comments Hgb (test code = Hgb) 10.3 12.0-16.0 [place] [address]-10-15 11:23:00 Test Item Value Reference Range Interpretation Comments Hct (test code = Hct) 31.8 36.0-48.0 [place] [address]-10-15 11:23:00 Test Item Value Reference Range Interpretation Comments MCV (test code = MCV) 80.8 80.0-98.0 [place] [address]-10-15 11:23:00 Test Item Value Reference Range Interpretation Comments MCH (test code = MCH) 26.1 pg 27.0-31.0 [place] 495052-10-15 11:23:00 Test Item Value Reference Range Interpretation Comments MCHC (test code = MCHC) 32.3 32.0-36.0 [place] [address]-10-15 11:23:00 Test Item Value Reference Range Interpretation Comments RDW (test code = RDW) 16.4 11.5-14.5 [place] [address]-10-15 11:23:00 Test Item Value Reference Range Interpretation Comments Platelet (test code = Platelet) 342 133-450 [facility] DistrictFjdstlgQJHXUGGTZJ5152-76-92 11:23:00 Test Item Value Reference Range Interpretation Comments MPV (test code = MPV) 8.1 7.4-10.4 [facility] DistrictQruuxymFPLZZAAZMB3597-56-46 11:23:00 Test Item Value Reference Range Interpretation Comments Segs (test code = Segs) 82.0 45.0-75.0 [place] [address]-10-15 11:23:00 Test Item Value Reference Range Interpretation Comments Lymphocytes (test code = Lymphocytes) 8.9 20.0-40.0 [place] [address]-10-15 11:23:00 Test Item Value Reference Range Interpretation Comments Monocytes (test code = Monocytes) 6.0 2.0-12.0 [place] 495052-10-15 11:23:00 Test Item Value Reference Range Interpretation Comments Eosinophils (test code = 2.8 See_Comment [A utomated message] The Eosinophils) system which ge nerated this result tra nsmitted reference range : <=4.0. The reference r quynh was not used to int erpret this result as normal/abnormal . [place] [address]-10-15 11:23:00 Test Item Value Reference Range Interpretation Comments Basophils (test code = 0.3 See_Comment [Aut omated message] The Basophils) system which ge nerated this result tra nsmitted reference range : <=1.0. The reference r quynh was not used to int erpret this result as normal/abnormal . [place] [address]-10-15 11:23:00 Test Item Value Reference Range Interpretation Comments Neutrophils # (test code = Neutrophils 12.7 1.5-8.1 #) [place] [address]-10-15 11:23:00 Test Item Value Reference Range Interpretation Comments Lymphocytes # (test code = Lymphocytes 1.4 1.0-5.5 #) [place] [address]-10-15 11:23:00 Test Item Value Reference Range Interpretation Comments Monocytes # (test code 0.9 See_Comment [Aut omated message] The = Monocytes #) system which generated this result tra nsmitted reference range : <=0.8. The reference r quynh was not used to int erpret this result as normal/abnormal . [place] [address]-10-15 11:23:00 Test Item Value Reference Range Interpretation Comments Eosinophils # (test code 0.4 See_Comment [A utomated message] The = Eosinophils #) system whic h generated this result tra nsmitted reference range : <=0.5. The reference r quynh was not used to int erpret this result as normal/abnormal . [facility] HVMWO5022-89-02 11:23:00 Test Item Value Reference Range Interpretation Comments Glucose Lvl (test code = Glucose Lvl) 96 70-99 [facility]2022-10-15 11:23:00 Test Item Value Reference Range Interpretation Comments BUN (test code = BUN) 13 7-22 [place] 245222-10-15 11:23:00 Test Item Value Reference Range Interpretation Comments Creatinine Lvl (test code = Creatinine 0.57 0.50-1.40 Lvl) [place] 245222-10-15 11:23:00 Test Item Value Reference Range Interpretation Comments Sodium Lvl (test code = Sodium Lvl) 137 135-145 [place] 245222-10-15 11:23:00 Test Item Value Reference Range Interpretation Comments Potassium Lvl (test code = Potassium 3.6 3.5-5.1 Lvl) [place] 245222-10-15 11:23:00 Test Item Value Reference Range Interpretation Comments Chloride Lvl (test code = Chloride Lvl) 100 95-109 [place] 245222-10-15 11:23:00 Test Item Value Reference Range Interpretation Comments CO2 (test code = CO2) 30 24-32 [place] 245222-10-15 11:23:00 Test Item Value Reference Range Interpretation Comments Calcium Lvl (test code = Calcium Lvl) 9.2 8.5-10.5 [place] 245222-10-15 11:23:00 Test Item Value Reference Range Interpretation Comments AGAP (test code = AGAP) 10.6 10.0-20.0 [place] 245222-10-15 11:23:00 Test Item Value Reference Range Interpretation Comments eGFR (test code = eGFR) 109 [place] 245222-10-15 11:23:00 Test Item Value Reference Range Interpretation Comments Magnesium Lvl (test code = Magnesium 2.1 1.8-2.4 Lvl) [place] 245222-10-15 11:23:00 Test Item Value Reference Range Interpretation Comments Phosphorus (test code = Phosphorus) 4.5 2.5-4.5 [place] [address]-10-15 11:23:00 Test Item Value Reference Range Interpretation Comments WBC (test code = WBC) 15.4 3.7-10.4 [place] [address]-10-15 11:23:00 Test Item Value Reference Range Interpretation Comments RBC (test code = RBC) 3.93 4.20-5.40 [place] [address]-10-15 11:23:00 Test Item Value Reference Range Interpretation Comments Hgb (test code = Hgb) 10.3 12.0-16.0 [place] [address]-10-15 11:23:00 Test Item Value Reference Range Interpretation Comments Hct (test code = Hct) 31.8 36.0-48.0 [place] 495052-10-15 11:23:00 Test Item Value Reference Range Interpretation Comments MCV (test code = MCV) 80.8 80.0-98.0 [place] 495052-10-15 11:23:00 Test Item Value Reference Range Interpretation Comments MCH (test code = MCH) 26.1 pg 27.0-31.0 [place] 495052-10-15 11:23:00 Test Item Value Reference Range Interpretation Comments MCHC (test code = MCHC) 32.3 32.0-36.0 [facility] DistrictCgccerfDOSITQYDMG6563-89-03 11:23:00 Test Item Value Reference Range Interpretation Comments RDW (test code = RDW) 16.4 11.5-14.5 [place] 495052-10-15 11:23:00 Test Item Value Reference Range Interpretation Comments Platelet (test code = Platelet) 342 133-450 [facility] DistrictPilhxylEYKXXTSNLO8688-98-34 11:23:00 Test Item Value Reference Range Interpretation Comments MPV (test code = MPV) 8.1 7.4-10.4 [facility] DistrictGdznhhlFZFLIGDSNE4539-57-24 11:23:00 Test Item Value Reference Range Interpretation Comments Segs (test code = Segs) 82.0 45.0-75.0 [facility] DistrictNhigsnrFSIEIQVRQG1128-98-49 11:23:00 Test Item Value Reference Range Interpretation Comments Lymphocytes (test code = Lymphocytes) 8.9 20.0-40.0 [place] 495052-10-15 11:23:00 Test Item Value Reference Range Interpretation Comments Monocytes (test code = Monocytes) 6.0 2.0-12.0 [place] [address]-10-15 11:23:00 Test Item Value Reference Range Interpretation Comments Eosinophils (test code = 2.8 See_Comment [A utomated message] The Eosinophils) system which ge nerated this result tra nsmitted reference range : <=4.0. The reference r quynh was not used to int erpret this result as normal/abnormal . [place] 495052-10-15 11:23:00 Test Item Value Reference Range Interpretation Comments Basophils (test code = 0.3 See_Comment [Aut omated message] The Basophils) system which ge nerated this result tra nsmitted reference range : <=1.0. The reference r quynh was not used to int erpret this result as normal/abnormal . [place] 495052-10-15 11:23:00 Test Item Value Reference Range Interpretation Comments Neutrophils # (test code = Neutrophils 12.7 1.5-8.1 #) [place] 495052-10-15 11:23:00 Test Item Value Reference Range Interpretation Comments Lymphocytes # (test code = Lymphocytes 1.4 1.0-5.5 #) [place] [address]-10-15 11:23:00 Test Item Value Reference Range Interpretation Comments Monocytes # (test code 0.9 See_Comment [Aut omated message] The = Monocytes #) system which generated this result tra nsmitted reference range : <=0.8. The reference r quynh was not used to int erpret this result as normal/abnormal . [place] [address]-10-15 11:23:00 Test Item Value Reference Range Interpretation Comments Eosinophils # (test code 0.4 See_Comment [A utomated message] The = Eosinophils #) system whic h generated this result tra nsmitted reference range : <=0.5. The reference r quynh was not used to int erpret this result as normal/abnormal . [facility]2022-10-15 11:23:00 Test Item Value Reference Range Interpretation Comments Glucose Lvl (test code = Glucose Lvl) 96 70-99 [facility] [id number] 11:23:00 Test Item Value Reference Range Interpretation Comments BUN (test code = BUN) 13 7-22 [place] [address]-10-15 11:23:00 Test Item Value Reference Range Interpretation Comments Creatinine Lvl (test code = Creatinine 0.57 0.50-1.40 Lvl) [place] 245222-10-15 11:23:00 Test Item Value Reference Range Interpretation Comments Sodium Lvl (test code = Sodium Lvl) 137 135-145 [facility] [id number] 11:23:00 Test Item Value Reference Range Interpretation Comments Potassium Lvl (test code = Potassium 3.6 3.5-5.1 Lvl) [place] [address]-10-15 11:23:00 Test Item Value Reference Range Interpretation Comments Chloride Lvl (test code = Chloride Lvl) 100 95-109 [place] [address]-10-15 11:23:00 Test Item Value Reference Range Interpretation Comments CO2 (test code = CO2) 30 24-32 [address]10-15 11:23:00 Test Item Value Reference Range Interpretation Comments Calcium Lvl (test code = Calcium Lvl) 9.2 8.5-10.5 [place] [address]-10-15 11:23:00 Test Item Value Reference Range Interpretation Comments AGAP (test code = AGAP) 10.6 10.0-20.0 [address]10-15 11:23:00 Test Item Value Reference Range Interpretation Comments eGFR (test code = eGFR) 109 [place] [address]-10-15 11:23:00 Test Item Value Reference Range Interpretation Comments Magnesium Lvl (test code = Magnesium 2.1 1.8-2.4 Lvl) [place] [address]-10-15 11:23:00 Test Item Value Reference Range Interpretation Comments Phosphorus (test code = Phosphorus) 4.5 2.5-4.5 [place] [address]-10-15 11:23:00 Test Item Value Reference Range Interpretation Comments WBC (test code = WBC) 15.4 3.7-10.4 [place] [address]-10-15 11:23:00 Test Item Value Reference Range Interpretation Comments RBC (test code = RBC) 3.93 4.20-5.40 [place] [address]-10-15 11:23:00 Test Item Value Reference Range Interpretation Comments Hgb (test code = Hgb) 10.3 12.0-16.0 [address]10-15 11:23:00 Test Item Value Reference Range Interpretation Comments Hct (test code = Hct) 31.8 36.0-48.0 [place] [address]-10-15 11:23:00 Test Item Value Reference Range Interpretation Comments MCV (test code = MCV) 80.8 80.0-98.0 [place] [address]-10-15 11:23:00 Test Item Value Reference Range Interpretation Comments MCH (test code = MCH) 26.1 pg 27.0-31.0 [place] [address]-10-15 11:23:00 Test Item Value Reference Range Interpretation Comments MCHC (test code = MCHC) 32.3 32.0-36.0 [place] [address]-10-15 11:23:00 Test Item Value Reference Range Interpretation Comments RDW (test code = RDW) 16.4 11.5-14.5 [place] 245222-10-15 11:23:00 Test Item Value Reference Range Interpretation Comments Glucose Lvl (test code = Glucose Lvl) 96 70-99 [place] 245222-10-15 11:23:00 Test Item Value Reference Range Interpretation Comments BUN (test code = BUN) 13 7-22 [place] 245222-10-15 11:23:00 Test Item Value Reference Range Interpretation Comments Creatinine Lvl (test code = Creatinine 0.57 0.50-1.40 Lvl) [place] 245222-10-15 11:23:00 Test Item Value Reference Range Interpretation Comments Sodium Lvl (test code = Sodium Lvl) 137 135-145 [place] 245222-10-15 11:23:00 Test Item Value Reference Range Interpretation Comments Potassium Lvl (test code = Potassium 3.6 3.5-5.1 Lvl) [facility]2022-10-15 11:23:00 Test Item Value Reference Range Interpretation Comments Chloride Lvl (test code = Chloride Lvl) 100 95-109 [place] 245222-10-15 11:23:00 Test Item Value Reference Range Interpretation Comments CO2 (test code = CO2) 30 24-32 [place] 245222-10-15 11:23:00 Test Item Value Reference Range Interpretation Comments Calcium Lvl (test code = Calcium Lvl) 9.2 8.5-10.5 [place] 245222-10-15 11:23:00 Test Item Value Reference Range Interpretation Comments AGAP (test code = AGAP) 10.6 10.0-20.0 [place] [address]-10-15 11:23:00 Test Item Value Reference Range Interpretation Comments eGFR (test code = eGFR) 109 [place] 245222-10-15 11:23:00 Test Item Value Reference Range Interpretation Comments Magnesium Lvl (test code = Magnesium 2.1 1.8-2.4 Lvl) [facility]2022-10-15 11:23:00 Test Item Value Reference Range Interpretation Comments Phosphorus (test code = Phosphorus) 4.5 2.5-4.5 [facility] DistrictArlahhrQWHOLMUAMN3259-15-71 11:23:00 Test Item Value Reference Range Interpretation Comments WBC (test code = WBC) 15.4 3.7-10.4 [facility] DistrictXzauupsRLXJPSPZTT9693-09-55 11:23:00 Test Item Value Reference Range Interpretation Comments RBC (test code = RBC) 3.93 4.20-5.40 [facility] DistrictNetvbqzYWEYYODBPJ4122-81-77 11:23:00 Test Item Value Reference Range Interpretation Comments Hgb (test code = Hgb) 10.3 12.0-16.0 [facility] DistrictDkztaudYUODMEHSDZ3533-29-70 11:23:00 Test Item Value Reference Range Interpretation Comments Hct (test code = Hct) 31.8 36.0-48.0 [facility] DistrictAnzqnynNFOPYUCXKC0809-29-06 11:23:00 Test Item Value Reference Range Interpretation Comments MCV (test code = MCV) 80.8 80.0-98.0 [facility] DistrictCgmqzwsXEWQCUPRZX7886-83-12 11:23:00 Test Item Value Reference Range Interpretation Comments MCH (test code = MCH) 26.1 pg 27.0-31.0 [facility] DistrictGqoynpxFPRDNRSPXY3870-43-40 11:23:00 Test Item Value Reference Range Interpretation Comments MCHC (test code = MCHC) 32.3 32.0-36.0 [facility] DistrictJppwskeXBTUWCYFIH1308-15-15 11:23:00 Test Item Value Reference Range Interpretation Comments RDW (test code = RDW) 16.4 11.5-14.5 [place] [address]-10-15 11:23:00 Test Item Value Reference Range Interpretation Comments Platelet (test code = Platelet) 342 133-450 [facility] DistrictNqzdojhWYIDKRKLJS2818-79-50 11:23:00 Test Item Value Reference Range Interpretation Comments MPV (test code = MPV) 8.1 7.4-10.4 [facility] DistrictFvdtiwcVQVALNKBEU0921-99-26 11:23:00 Test Item Value Reference Range Interpretation Comments Segs (test code = Segs) 82.0 45.0-75.0 [place] [address]-10-15 11:23:00 Test Item Value Reference Range Interpretation Comments Lymphocytes (test code = Lymphocytes) 8.9 20.0-40.0 [place] [address]-10-15 11:23:00 Test Item Value Reference Range Interpretation Comments Monocytes (test code = Monocytes) 6.0 2.0-12.0 [place] [address]-10-15 11:23:00 Test Item Value Reference Range Interpretation Comments Eosinophils (test code = 2.8 See_Comment [A utomated message] The Eosinophils) system which ge nerated this result tra nsmitted reference range : <=4.0. The reference r quynh was not used to int erpret this result as normal/abnormal . [address]10-15 11:23:00 Test Item Value Reference Range Interpretation Comments Basophils (test code = 0.3 See_Comment [Aut omated message] The Basophils) system which ge nerated this result tra nsmitted reference range : <=1.0. The reference r quynh was not used to int erpret this result as normal/abnormal . [place] [address]-10-15 11:23:00 Test Item Value Reference Range Interpretation Comments Neutrophils # (test code = Neutrophils 12.7 1.5-8.1 #) [address]10-15 11:23:00 Test Item Value Reference Range Interpretation Comments Lymphocytes # (test code = Lymphocytes 1.4 1.0-5.5 #) [address]10-15 11:23:00 Test Item Value Reference Range Interpretation Comments Monocytes # (test code 0.9 See_Comment [Aut omated message] The = Monocytes #) system which generated this result tra nsmitted reference range : <=0.8. The reference r quynh was not used to int erpret this result as normal/abnormal . [address]10-15 11:23:00 Test Item Value Reference Range Interpretation Comments Eosinophils # (test code 0.4 See_Comment [A utomated message] The = Eosinophils #) system [facility] h generated this result tra nsmitted reference range : <=0.5. The reference r quynh was not used to int erpret this result as normal/abnormal . [facility] DistrictYvlkebeKPPMCKGEDQ4941-52-43 16:51:00 Test Item Value Reference Range Interpretation Comments PT (test code = PT) 14.9 s 12.0-14.7 [facility] DistrictCuvkjcxSWBFCBVFTE8393-26-54 16:51:00 Test Item Value Reference Range Interpretation Comments INR (test code = INR) 1.18 1 0.85-1.17 [facility] DistrictXvtnrvmXQXUFYPJZZ9237-23-62 16:51:00 Test Item Value Reference Range Interpretation Comments PTT (test code = PTT) 41.3 s 22.9-35.8 [facility] DistrictSrjykpqAARRDZQIGP1550-01-87 16:51:00 Test Item Value Reference Range Interpretation Comments PT (test code = PT) 14.9 s 12.0-14.7 [facility] DistrictRmciuhzTOEQSYABJG0217-76-63 16:51:00 Test Item Value Reference Range Interpretation Comments INR (test code = INR) 1.18 1 0.85-1.17 [facility] DistrictExqdvnoUVVZIKWJPU9635-16-23 16:51:00 Test Item Value Reference Range Interpretation Comments PTT (test code = PTT) 41.3 s 22.9-35.8 [facility] DistrictBckdxlaSLHHDIBVJR9308-01-63 16:51:00 Test Item Value Reference Range Interpretation Comments PT (test code = PT) 14.9 s 12.0-14.7 [facility] DistrictUvnbprsWQVFUFCGOK7610-92-27 16:51:00 Test Item Value Reference Range Interpretation Comments INR (test code = INR) 1.18 1 0.85-1.17 [facility] DistrictRadgiryOMKANJVOUC7906-82-93 16:51:00 Test Item Value Reference Range Interpretation Comments PTT (test code = PTT) 41.3 s 22.9-35.8 [facility] DistrictDbxumjbCGTUXPOPFP5973-89-22 16:51:00 Test Item Value Reference Range Interpretation Comments PT (test code = PT) 14.9 s 12.0-14.7 [place] [address]-10-14 16:51:00 Test Item Value Reference Range Interpretation Comments INR (test code = INR) 1.18 1 0.85-1.17 [place] [address]-10-14 16:51:00 Test Item Value Reference Range Interpretation Comments PTT (test code = PTT) 41.3 s 22.9-35.8 [facility] DistrictJffdenvEFQBLMMQXT3744-19-86 16:51:00 Test Item Value Reference Range Interpretation Comments PT (test code = PT) 14.9 s 12.0-14.7 [facility] DistrictXuztleqWXEFFWCEGV1127-59-46 16:51:00 Test Item Value Reference Range Interpretation Comments INR (test code = INR) 1.18 1 0.85-1.17 [facility] DistrictKujzyrfLTXIQFYGRA5749-18-13 16:51:00 Test Item Value Reference Range Interpretation Comments PTT (test code = PTT) 41.3 s 22.9-35.8 [facility] DistrictTthvguqBTQJWUGLGT4818-53-80 16:51:00 Test Item Value Reference Range Interpretation Comments PT (test code = PT) 14.9 s 12.0-14.7 [facility] DistrictSiwqxevBGWZMZRHLM6666-72-42 16:51:00 Test Item Value Reference Range Interpretation Comments INR (test code = INR) 1.18 1 0.85-1.17 [facility] DistrictIdtclnoDXXUBBCIMI3962-85-73 16:51:00 Test Item Value Reference Range Interpretation Comments PTT (test code = PTT) 41.3 s 22.9-35.8 [facility] DistrictGvqwqllGAKKJYDUSS0209-59-15 16:51:00 Test Item Value Reference Range Interpretation Comments PT (test code = PT) 14.9 s 12.0-14.7 [facility] DistrictYwlkmdbXOMDVHGJOJ4291-58-59 16:51:00 Test Item Value Reference Range Interpretation Comments INR (test code = INR) 1.18 1 0.85-1.17 [facility] DistrictCmpeifeZMZFQOVJPS2888-12-94 16:51:00 Test Item Value Reference Range Interpretation Comments PTT (test code = PTT) 41.3 s 22.9-35.8 [facility] DistrictFlynriwPVEZBIUTLQ9627-19-36 16:51:00 Test Item Value Reference Range Interpretation Comments PT (test code = PT) 14.9 s 12.0-14.7 [facility] DistrictHipbwdoABUPKYRVIB5887-82-81 16:51:00 Test Item Value Reference Range Interpretation Comments INR (test code = INR) 1.18 1 0.85-1.17 [facility] DistrictJlnrwvjHODNIHNLAZ4367-36-58 16:51:00 Test Item Value Reference Range Interpretation Comments PTT (test code = PTT) 41.3 s 22.9-35.8 [facility] DistrictRghtocvSIZMIBRTEH0025-17-96 16:51:00 Test Item Value Reference Range Interpretation Comments PT (test code = PT) 14.9 s 12.0-14.7 [facility] DistrictYeqhinwYSBKTYLLBN1104-83-20 16:51:00 Test Item Value Reference Range Interpretation Comments INR (test code = INR) 1.18 1 0.85-1.17 [facility] DistrictBrnjegnDERLOOBMSK4026-38-75 16:51:00 Test Item Value Reference Range Interpretation Comments PTT (test code = PTT) 41.3 s 22.9-35.8 [facility] DistrictHyumwtyBUENSUBRYK3841-17-29 16:51:00 Test Item Value Reference Range Interpretation Comments PT (test code = PT) 14.9 s 12.0-14.7 [facility] DistrictEqoxbikAKSNFRRUDW4103-15-67 16:51:00 Test Item Value Reference Range Interpretation Comments INR (test code = INR) 1.18 1 0.85-1.17 [facility] DistrictDbjgfsmXOUQAOUGEE3008-35-63 16:51:00 Test Item Value Reference Range Interpretation Comments PTT (test code = PTT) 41.3 s 22.9-35.8 [facility] DistrictEihdhzpCOIPTWFMLQ3726-58-73 16:51:00 Test Item Value Reference Range Interpretation Comments PT (test code = PT) 14.9 s 12.0-14.7 [facility] DistrictHdgfhrxGNDQEMSAUI0198-06-39 16:51:00 Test Item Value Reference Range Interpretation Comments INR (test code = INR) 1.18 1 0.85-1.17 [facility] DistrictSlfpybxNERGCUKZBT1228-21-95 16:51:00 Test Item Value Reference Range Interpretation Comments PTT (test code = PTT) 41.3 s 22.9-35.8 [facility] DistrictDibnqfaPLIBNOYIYW3635-16-14 16:51:00 Test Item Value Reference Range Interpretation Comments PT (test code = PT) 14.9 s 12.0-14.7 [place] [address]-10-14 16:51:00 Test Item Value Reference Range Interpretation Comments INR (test code = INR) 1.18 1 0.85-1.17 [place] [address]-10-14 16:51:00 Test Item Value Reference Range Interpretation Comments PTT (test code = PTT) 41.3 s 22.9-35.8 [facility] DistrictChcamdhLYXMEMUSUA7898-87-75 16:51:00 Test Item Value Reference Range Interpretation Comments PT (test code = PT) 14.9 s 12.0-14.7 [facility] DistrictBfskbzwHGOGHGQMNL0216-74-82 16:51:00 Test Item Value Reference Range Interpretation Comments INR (test code = INR) 1.18 1 0.85-1.17 [facility] DistrictXjjxrxyEBMRTJUOPK9639-34-03 16:51:00 Test Item Value Reference Range Interpretation Comments PTT (test code = PTT) 41.3 s 22.9-35.8 [facility] DistrictVupwizzTJETXBOWZG9267-59-30 16:51:00 Test Item Value Reference Range Interpretation Comments PT (test code = PT) 14.9 s 12.0-14.7 [facility] DistrictAfotrbnSNPSEUZHAH9810-05-57 16:51:00 Test Item Value Reference Range Interpretation Comments INR (test code = INR) 1.18 1 0.85-1.17 [facility] DistrictJmznkmvTNPWLVJZBD4203-26-57 16:51:00 Test Item Value Reference Range Interpretation Comments PTT (test code = PTT) 41.3 s 22.9-35.8 [facility] DistrictSrridjsJSPPQNBWHH1016-23-86 16:51:00 Test Item Value Reference Range Interpretation Comments PT (test code = PT) 14.9 s 12.0-14.7 [facility] DistrictBnrxkxcVPGOYHTSTM8934-28-04 16:51:00 Test Item Value Reference Range Interpretation Comments INR (test code = INR) 1.18 1 0.85-1.17 [facility] DistrictZppfielXWNWGJZEGZ6139-88-06 16:51:00 Test Item Value Reference Range Interpretation Comments PTT (test code = PTT) 41.3 s 22.9-35.8 [facility] DistrictNpilxulHEMTOGOJHC8336-27-43 16:51:00 Test Item Value Reference Range Interpretation Comments PT (test code = PT) 14.9 s 12.0-14.7 [facility] Distri[id number] 16:51:00 Test Item Value Reference Range Interpretation Comments INR (test code = INR) 1.18 1 0.85-1.17 [facility] DistrictZfzdiycSPENBLFAAR0551-82-84 16:51:00 Test Item Value Reference Range Interpretation Comments PTT (test code = PTT) 41.3 s 22.9-35.8 [facility] DistrictLeymxhxXHFOOIAJEU3833-44-50 16:51:00 Test Item Value Reference Range Interpretation Comments PT (test code = PT) 14.9 s 12.0-14.7 [facility] DistrictFjygapyJBISEQGMQB2631-80-80 16:51:00 Test Item Value Reference Range Interpretation Comments INR (test code = INR) 1.18 1 0.85-1.17 [facility] DistrictTeiqfayJUREXEDHWU3412-66-66 16:51:00 Test Item Value Reference Range Interpretation Comments PTT (test code = PTT) 41.3 s 22.9-35.8 [facility] DistrictMlprsypODCISIYGMO4929-14-69 16:51:00 Test Item Value Reference Range Interpretation Comments PT (test code = PT) 14.9 s 12.0-14.7 [facility] DistrictFcapyfsKFMTNBLKZB2179-41-44 16:51:00 Test Item Value Reference Range Interpretation Comments INR (test code = INR) 1.18 1 0.85-1.17 [facility] DistrictG[id number] 16:51:00 Test Item Value Reference Range Interpretation Comments PTT (test code = PTT) 41.3 s 22.9-35.8 [facility] DistrictFgcxeqxMITMRYOJMZ3708-77-73 16:51:00 Test Item Value Reference Range Interpretation Comments PT (test code = PT) 14.9 s 12.0-14.7 [facility] DistrictFaavsabNRJRIDHIYZ0468-84-18 16:51:00 Test Item Value Reference Range Interpretation Comments INR (test code = INR) 1.18 1 0.85-1.17 [facility] DistrictXoiclixAVQLWXHJDN6945-65-80 16:51:00 Test Item Value Reference Range Interpretation Comments PTT (test code = PTT) 41.3 s 22.9-35.8 [facility] DistrictLinxfbkTVXKJMMYYK8294-67-81 16:51:00 Test Item Value Reference Range Interpretation Comments PT (test code = PT) 14.9 s 12.0-14.7 [facility] DistrictXpbrbxfZRHXCKIFFX6453-22-88 16:51:00 Test Item Value Reference Range Interpretation Comments INR (test code = INR) 1.18 1 0.85-1.17 [facility] DistrictUzvpjpiRJABRDKHWW0703-98-02 16:51:00 Test Item Value Reference Range Interpretation Comments PTT (test code = PTT) 41.3 s 22.9-35.8 [facility] DistrictXzlpxrmHNZPYIHQKN1158-08-05 16:51:00 Test Item Value Reference Range Interpretation Comments PT (test code = PT) 14.9 s 12.0-14.7 [facility] DistrictKoptnsxLHGZKIVVWF2630-13-28 16:51:00 Test Item Value Reference Range Interpretation Comments INR (test code = INR) 1.18 1 0.85-1.17 [facility] DistrictNfaqhwgNWTFCHKYMH0416-67-59 16:51:00 Test Item Value Reference Range Interpretation Comments PTT (test code = PTT) 41.3 s 22.9-35.8 [facility] DistrictGjizfjjHSURSSSJFL9126-89-31 16:51:00 Test Item Value Reference Range Interpretation Comments PT (test code = PT) 14.9 s 12.0-14.7 [facility] DistrictYssdvtnCSPOWQSQOU4694-70-64 16:51:00 Test Item Value Reference Range Interpretation Comments INR (test code = INR) 1.18 1 0.85-1.17 [facility] DistrictRjokwkuGJZQATCJMV9651-08-97 16:51:00 Test Item Value Reference Range Interpretation Comments PTT (test code = PTT) 41.3 s 22.9-35.8 [facility] DistrictNxbmtouCEZNUUQTKB5362-97-04 16:51:00 Test Item Value Reference Range Interpretation Comments PT (test code = PT) 14.9 s 12.0-14.7 [facility] DistrictNslthxtUZXVJOSBPF0799-74-81 16:51:00 Test Item Value Reference Range Interpretation Comments INR (test code = INR) 1.18 1 0.85-1.17 [facility] DistrictCbkwdwkRSHBMCLWMN4633-28-24 16:51:00 Test Item Value Reference Range Interpretation Comments PTT (test code = PTT) 41.3 s 22.9-35.8 [facility] DistrictAxkwljjSBQIJNPKOJ5519-73-59 16:51:00 Test Item Value Reference Range Interpretation Comments PT (test code = PT) 14.9 s 12.0-14.7 [facility] DistrictKxqgsfrXTEHZKELYX4764-57-17 16:51:00 Test Item Value Reference Range Interpretation Comments INR (test code = INR) 1.18 1 0.85-1.17 [facility] DistrictLcgpolnZBTOOPHRYB7200-41-63 16:51:00 Test Item Value Reference Range Interpretation Comments PTT (test code = PTT) 41.3 s 22.9-35.8 [facility] DistrictAoapwgpTFUOMHIQBB4474-96-05 16:51:00 Test Item Value Reference Range Interpretation Comments PT (test code = PT) 14.9 s 12.0-14.7 [facility] DistrictTcajiwpYGIBEMXUCW3091-39-43 16:51:00 Test Item Value Reference Range Interpretation Comments INR (test code = INR) 1.18 1 0.85-1.17 [facility] DistrictBkexdnkRFPJHJEIMO9534-77-61 16:51:00 Test Item Value Reference Range Interpretation Comments PTT (test code = PTT) 41.3 s 22.9-35.8 [facility] DistrictJwbarscSYHZMFKTIP4732-63-01 16:51:00 Test Item Value Reference Range Interpretation Comments PT (test code = PT) 14.9 s 12.0-14.7 [facility] DistrictOruohydEKFWTSIKIG8232-95-90 16:51:00 Test Item Value Reference Range Interpretation Comments INR (test code = INR) 1.18 1 0.85-1.17 [facility] DistrictNmjknxqSMNFGYTCFT2624-71-75 16:51:00 Test Item Value Reference Range Interpretation Comments PTT (test code = PTT) 41.3 s 22.9-35.8 [facility] DistrictPbieepcGGEZVUHATJ5781-07-66 16:51:00 Test Item Value Reference Range Interpretation Comments PT (test code = PT) 14.9 s 12.0-14.7 [facility] DistrictIbpcpeaOKLCAWHUDB7202-07-83 16:51:00 Test Item Value Reference Range Interpretation Comments INR (test code = INR) 1.18 1 0.85-1.17 [facility] DistrictUgdugstJDIKFRMLNM0240-70-63 16:51:00 Test Item Value Reference Range Interpretation Comments PTT (test code = PTT) 41.3 s 22.9-35.8 [facility] DistrictWanxqdzXSQZRRTOTS2221-54-64 16:51:00 Test Item Value Reference Range Interpretation Comments PT (test code = PT) 14.9 s 12.0-14.7 [facility] DistrictBzsereiZRKPNGHLWP4742-29-60 16:51:00 Test Item Value Reference Range Interpretation Comments INR (test code = INR) 1.18 1 0.85-1.17 [facility] DistrictEaldwzkLNMBZTMNYT7442-81-97 16:51:00 Test Item Value Reference Range Interpretation Comments PTT (test code = PTT) 41.3 s 22.9-35.8 [facility] DistrictJuedseeCFSNHIYMUX9184-71-22 16:51:00 Test Item Value Reference Range Interpretation Comments PT (test code = PT) 14.9 s 12.0-14.7 [place] [address]-10-14 16:51:00 Test Item Value Reference Range Interpretation Comments INR (test code = INR) 1.18 1 0.85-1.17 [place] [address]-10-14 16:51:00 Test Item Value Reference Range Interpretation Comments PTT (test code = PTT) 41.3 s 22.9-35.8 [place] [address]-10-14 16:51:00 Test Item Value Reference Range Interpretation Comments PT (test code = PT) 14.9 s 12.0-14.7 [facility] DistrictMhhipekCTFZDLHIQF5236-82-61 16:51:00 Test Item Value Reference Range Interpretation Comments INR (test code = INR) 1.18 1 0.85-1.17 [place] [address]-10-14 16:51:00 Test Item Value Reference Range Interpretation Comments PTT (test code = PTT) 41.3 s 22.9-35.8 [place] [address]-10-14 16:51:00 Test Item Value Reference Range Interpretation Comments PT (test code = PT) 14.9 s 12.0-14.7 [facility] DistrictQiftdwkRKDGLVIUIU9564-43-15 16:51:00 Test Item Value Reference Range Interpretation Comments INR (test code = INR) 1.18 1 0.85-1.17 [place] [address]-10-14 16:51:00 Test Item Value Reference Range Interpretation Comments PTT (test code = PTT) 41.3 s 22.9-35.8 [place] [address]-10-14 16:51:00 Test Item Value Reference Range Interpretation Comments PT (test code = PT) 14.9 s 12.0-14.7 [place] [address]-10-14 16:51:00 Test Item Value Reference Range Interpretation Comments INR (test code = INR) 1.18 1 0.85-1.17 [place] [address]-10-14 16:51:00 Test Item Value Reference Range Interpretation Comments PTT (test code = PTT) 41.3 s 22.9-35.8 [place] 245222-10-14 08:42:00 Test Item Value Reference Range Interpretation Comments Magnesium Lvl (test code = Magnesium 2.2 1.8-2.4 Lvl) [place] 245222-10-14 08:42:00 Test Item Value Reference Range Interpretation Comments Glucose Lvl (test code = Glucose Lvl) 89 70-99 [place] 245222-10-14 08:42:00 Test Item Value Reference Range Interpretation Comments BUN (test code = BUN) 8 7-22 [place] 245222-10-14 08:42:00 Test Item Value Reference Range Interpretation Comments Creatinine Lvl (test code = Creatinine 0.59 0.50-1.40 Lvl) [place] 245222-10-14 08:42:00 Test Item Value Reference Range Interpretation Comments Sodium Lvl (test code = Sodium Lvl) 142 135-145 [place] 245222-10-14 08:42:00 Test Item Value Reference Range Interpretation Comments Potassium Lvl (test code = Potassium 3.6 3.5-5.1 Lvl) [place] 245222-10-14 08:42:00 Test Item Value Reference Range Interpretation Comments Chloride Lvl (test code = Chloride Lvl) 103 95-109 [place] 245222-10-14 08:42:00 Test Item Value Reference Range Interpretation Comments CO2 (test code = CO2) 30 24-32 [place] 245222-10-14 08:42:00 Test Item Value Reference Range Interpretation Comments Calcium Lvl (test code = Calcium Lvl) 9.8 8.5-10.5 [place] 245222-10-14 08:42:00 Test Item Value Reference Range Interpretation Comments Total Protein (test code = Total 7.0 6.4-8.4 Protein) [place] 245222-10-14 08:42:00 Test Item Value Reference Range Interpretation Comments Albumin Lvl (test code = Albumin Lvl) 2.8 3.5-5.0 [place] 245222-10-14 08:42:00 Test Item Value Reference Range Interpretation Comments ALT (test code = ALT) 20 See_Comment [Auto mated message] The system which ge nerated this result transmit fabiano reference range : <=65. The reference range was not used to interpr et this result as aleks l/abnormal. [place] 245222-10-14 08:42:00 Test Item Value Reference Range Interpretation Comments AST (test code = AST) 11 See_Comment [Auto mated message] The system which ge nerated this result transmit fabiano reference range : <=37. The reference range was not used to interpr et this result as aleks l/abnormal. [place] 245222-10-14 08:42:00 Test Item Value Reference Range Interpretation Comments Alk Phos (test code = Alk Phos) 108 39-136 [place] 245222-10-14 08:42:00 Test Item Value Reference Range Interpretation Comments Bili Total (test code = Bili Total) 0.4 0.2-1.3 [place] [address]-10-14 08:42:00 Test Item Value Reference Range Interpretation Comments AGAP (test code = AGAP) 12.6 10.0-20.0 [place] 245222-10-14 08:42:00 Test Item Value Reference Range Interpretation Comments B/C Ratio (test code = B/C Ratio) 14 1 6-25 [place] [address]-10-14 08:42:00 Test Item Value Reference Range Interpretation Comments Globulin (test code = Globulin) 4.2 2.7-4.2 [place] 245222-10-14 08:42:00 Test Item Value Reference Range Interpretation Comments A/G Ratio (test code = A/G Ratio) 0.7 1 0.7-1.6 [place] [address]-10-14 08:42:00 Test Item Value Reference Range Interpretation Comments eGFR (test code = eGFR) 108 [place] 245222-10-14 08:42:00 Test Item Value Reference Range Interpretation Comments Phosphorus (test code = Phosphorus) 5.4 2.5-4.5 [place] 495052-10-14 08:42:00 Test Item Value Reference Range Interpretation Comments WBC (test code = WBC) 12.5 3.7-10.4 [place] [address]-10-14 08:42:00 Test Item Value Reference Range Interpretation Comments RBC (test code = RBC) 3.94 4.20-5.40 [place] [address]-10-14 08:42:00 Test Item Value Reference Range Interpretation Comments Hgb (test code = Hgb) 10.6 12.0-16.0 [place] [address]-10-14 08:42:00 Test Item Value Reference Range Interpretation Comments Hct (test code = Hct) 31.6 36.0-48.0 [place] 495052-10-14 08:42:00 Test Item Value Reference Range Interpretation Comments MCV (test code = MCV) 80.2 80.0-98.0 [place] 495052-10-14 08:42:00 Test Item Value Reference Range Interpretation Comments MCH (test code = MCH) 26.9 pg 27.0-31.0 [place] 495052-10-14 08:42:00 Test Item Value Reference Range Interpretation Comments MCHC (test code = MCHC) 33.6 32.0-36.0 [place] 495052-10-14 08:42:00 Test Item Value Reference Range Interpretation Comments RDW (test code = RDW) 16.4 11.5-14.5 [place] 495052-10-14 08:42:00 Test Item Value Reference Range Interpretation Comments Platelet (test code = Platelet) 339 133-450 [facility] DistrictMhslavrYDJNQLLRFN1379-16-67 08:42:00 Test Item Value Reference Range Interpretation Comments MPV (test code = MPV) 8.0 7.4-10.4 [place] 495052-10-14 08:42:00 Test Item Value Reference Range Interpretation Comments Segs (test code = Segs) 77.8 45.0-75.0 [place] 495052-10-14 08:42:00 Test Item Value Reference Range Interpretation Comments Lymphocytes (test code = Lymphocytes) 13.5 20.0-40.0 [place] 495052-10-14 08:42:00 Test Item Value Reference Range Interpretation Comments Monocytes (test code = Monocytes) 6.5 2.0-12.0 [place] [address]-10-14 08:42:00 Test Item Value Reference Range Interpretation Comments Eosinophils (test code = 1.6 See_Comment [A utomated message] The Eosinophils) system which ge nerated this result tra nsmitted reference range : <=4.0. The reference r quynh was not used to int erpret this result as normal/abnormal . [place] 495052-10-14 08:42:00 Test Item Value Reference Range Interpretation Comments Basophils (test code = 0.6 See_Comment [Aut omated message] The Basophils) system which ge nerated this result tra nsmitted reference range : <=1.0. The reference r quynh was not used to int erpret this result as normal/abnormal . [place] 495052-10-14 08:42:00 Test Item Value Reference Range Interpretation Comments Neutrophils # (test code = Neutrophils 9.8 1.5-8.1 #) [place] 495052-10-14 08:42:00 Test Item Value Reference Range Interpretation Comments Lymphocytes # (test code = Lymphocytes 1.7 1.0-5.5 #) [place] [address]-10-14 08:42:00 Test Item Value Reference Range Interpretation Comments Monocytes # (test code 0.8 See_Comment [Aut omated message] The = Monocytes #) system which generated this result tra nsmitted reference range : <=0.8. The reference r quynh was not used to int erpret this result as normal/abnormal . [place] 495052-10-14 08:42:00 Test Item Value Reference Range Interpretation Comments Eosinophils # (test code 0.2 See_Comment [A utomated message] The = Eosinophils #) system whic h generated this result tra nsmitted reference range : <=0.5. The reference r quynh was not used to int erpret this result as normal/abnormal . [place] 495052-10-14 08:42:00 Test Item Value Reference Range Interpretation Comments Basophils # (test code 0.1 See_Comment [Aut omated message] The = Basophils #) system which generated this result tra nsmitted reference range : <=0.2. The reference r quynh was not used to int erpret this result as normal/abnormal . [facility] [id number] 08:42:00 Test Item Value Reference Range Interpretation Comments Magnesium Lvl (test code = Magnesium 2.2 1.8-2.4 Lvl) [place] 245222-10-14 08:42:00 Test Item Value Reference Range Interpretation Comments Glucose Lvl (test code = Glucose Lvl) 89 70-99 [place] 245222-10-14 08:42:00 Test Item Value Reference Range Interpretation Comments BUN (test code = BUN) 8 7-22 [address]10-14 08:42:00 Test Item Value Reference Range Interpretation Comments Creatinine Lvl (test code = Creatinine 0.59 0.50-1.40 Lvl) [address]10-14 08:42:00 Test Item Value Reference Range Interpretation Comments Sodium Lvl (test code = Sodium Lvl) 142 135-145 [place] [address]-10-14 08:42:00 Test Item Value Reference Range Interpretation Comments Potassium Lvl (test code = Potassium 3.6 3.5-5.1 Lvl) [address]10-14 08:42:00 Test Item Value Reference Range Interpretation Comments Chloride Lvl (test code = Chloride Lvl) 103 95-109 [place] [address]-10-14 08:42:00 Test Item Value Reference Range Interpretation Comments CO2 (test code = CO2) 30 24-32 [place] [address]-10-14 08:42:00 Test Item Value Reference Range Interpretation Comments Calcium Lvl (test code = Calcium Lvl) 9.8 8.5-10.5 [place] [address]-10-14 08:42:00 Test Item Value Reference Range Interpretation Comments Total Protein (test code = Total 7.0 6.4-8.4 Protein) [address]10-14 08:42:00 Test Item Value Reference Range Interpretation Comments Albumin Lvl (test code = Albumin Lvl) 2.8 3.5-5.0 [place] [address]-10-14 08:42:00 Test Item Value Reference Range Interpretation Comments ALT (test code = ALT) 20 See_Comment [Auto mated message] The system which ge nerated this result transmit fabiano reference range : <=65. The reference range was not used to interpr et this result as aleks l/abnormal. [place] [address]-10-14 08:42:00 Test Item Value Reference Range Interpretation Comments AST (test code = AST) 11 See_Comment [Auto mated message] The system which ge nerated this result transmit fabiano reference range : <=37. The reference range was not used to interpr et this result as aleks l/abnormal. [place] [address]-10-14 08:42:00 Test Item Value Reference Range Interpretation Comments Alk Phos (test code = Alk Phos) 108 39-136 [place] 245222-10-14 08:42:00 Test Item Value Reference Range Interpretation Comments Bili Total (test code = Bili Total) 0.4 0.2-1.3 [place] 245222-10-14 08:42:00 Test Item Value Reference Range Interpretation Comments AGAP (test code = AGAP) 12.6 10.0-20.0 [place] 245222-10-14 08:42:00 Test Item Value Reference Range Interpretation Comments B/C Ratio (test code = B/C Ratio) 14 1 6-25 [place] 245222-10-14 08:42:00 Test Item Value Reference Range Interpretation Comments Globulin (test code = Globulin) 4.2 2.7-4.2 [place] 245222-10-14 08:42:00 Test Item Value Reference Range Interpretation Comments A/G Ratio (test code = A/G Ratio) 0.7 1 0.7-1.6 [place] 245222-10-14 08:42:00 Test Item Value Reference Range Interpretation Comments eGFR (test code = eGFR) 108 [facility]2022-10-14 08:42:00 Test Item Value Reference Range Interpretation Comments Phosphorus (test code = Phosphorus) 5.4 2.5-4.5 [place] 495052-10-14 08:42:00 Test Item Value Reference Range Interpretation Comments WBC (test code = WBC) 12.5 3.7-10.4 [place] 495052-10-14 08:42:00 Test Item Value Reference Range Interpretation Comments RBC (test code = RBC) 3.94 4.20-5.40 [place] 495052-10-14 08:42:00 Test Item Value Reference Range Interpretation Comments Hgb (test code = Hgb) 10.6 12.0-16.0 [place] [address]-10-14 08:42:00 Test Item Value Reference Range Interpretation Comments Hct (test code = Hct) 31.6 36.0-48.0 [place] 495052-10-14 08:42:00 Test Item Value Reference Range Interpretation Comments MCV (test code = MCV) 80.2 80.0-98.0 [place] 495052-10-14 08:42:00 Test Item Value Reference Range Interpretation Comments MCH (test code = MCH) 26.9 pg 27.0-31.0 [place] 495052-10-14 08:42:00 Test Item Value Reference Range Interpretation Comments MCHC (test code = MCHC) 33.6 32.0-36.0 [place] 495052-10-14 08:42:00 Test Item Value Reference Range Interpretation Comments RDW (test code = RDW) 16.4 11.5-14.5 [place] 495052-10-14 08:42:00 Test Item Value Reference Range Interpretation Comments Platelet (test code = Platelet) 339 133-450 [place] 495052-10-14 08:42:00 Test Item Value Reference Range Interpretation Comments MPV (test code = MPV) 8.0 7.4-10.4 [place] 495052-10-14 08:42:00 Test Item Value Reference Range Interpretation Comments Segs (test code = Segs) 77.8 45.0-75.0 [place] 495052-10-14 08:42:00 Test Item Value Reference Range Interpretation Comments Lymphocytes (test code = Lymphocytes) 13.5 20.0-40.0 [place] 495052-10-14 08:42:00 Test Item Value Reference Range Interpretation Comments Monocytes (test code = Monocytes) 6.5 2.0-12.0 [place] 495052-10-14 08:42:00 Test Item Value Reference Range Interpretation Comments Eosinophils (test code = 1.6 See_Comment [A utomated message] The Eosinophils) system which ge nerated this result tra nsmitted reference range : <=4.0. The reference r quynh was not used to int erpret this result as normal/abnormal . [place] 495052-10-14 08:42:00 Test Item Value Reference Range Interpretation Comments Basophils (test code = 0.6 See_Comment [Aut omated message] The Basophils) system which ge nerated this result tra nsmitted reference range : <=1.0. The reference r quynh was not used to int erpret this result as normal/abnormal . [place] 495052-10-14 08:42:00 Test Item Value Reference Range Interpretation Comments Neutrophils # (test code = Neutrophils 9.8 1.5-8.1 #) [place] 495052-10-14 08:42:00 Test Item Value Reference Range Interpretation Comments Lymphocytes # (test code = Lymphocytes 1.7 1.0-5.5 #) [place] [address]-10-14 08:42:00 Test Item Value Reference Range Interpretation Comments Monocytes # (test code 0.8 See_Comment [Aut omated message] The = Monocytes #) system which generated this result tra nsmitted reference range : <=0.8. The reference r quynh was not used to int erpret this result as normal/abnormal . [place] [address]-10-14 08:42:00 Test Item Value Reference Range Interpretation Comments Eosinophils # (test code 0.2 See_Comment [A utomated message] The = Eosinophils #) system whic h generated this result tra nsmitted reference range : <=0.5. The reference r quynh was not used to int erpret this result as normal/abnormal . [place] 495052-10-14 08:42:00 Test Item Value Reference Range Interpretation Comments Basophils # (test code 0.1 See_Comment [Aut omated message] The = Basophils #) system which generated this result tra nsmitted reference range : <=0.2. The reference r quynh was not used to int erpret this result as normal/abnormal . [place] 245222-10-14 08:42:00 Test Item Value Reference Range Interpretation Comments Magnesium Lvl (test code = Magnesium 2.2 1.8-2.4 Lvl) [place] 245222-10-14 08:42:00 Test Item Value Reference Range Interpretation Comments Glucose Lvl (test code = Glucose Lvl) 89 70-99 [place] [address]-10-14 08:42:00 Test Item Value Reference Range Interpretation Comments BUN (test code = BUN) 8 - [place] [address]-10-14 08:42:00 Test Item Value Reference Range Interpretation Comments Creatinine Lvl (test code = Creatinine 0.59 0.50-1.40 Lvl) [place] 245222-10-14 08:42:00 Test Item Value Reference Range Interpretation Comments Sodium Lvl (test code = Sodium Lvl) 142 135-145 [facility] [id number] 08:42:00 Test Item Value Reference Range Interpretation Comments Potassium Lvl (test code = Potassium 3.6 3.5-5.1 Lvl) [place] 245222-10-14 08:42:00 Test Item Value Reference Range Interpretation Comments Chloride Lvl (test code = Chloride Lvl) 103 95-109 [facility] [id number] 08:42:00 Test Item Value Reference Range Interpretation Comments CO2 (test code = CO2) 30 24-32 [facility] [id number] 08:42:00 Test Item Value Reference Range Interpretation Comments Calcium Lvl (test code = Calcium Lvl) 9.8 8.5-10.5 [facility] [id number] 08:42:00 Test Item Value Reference Range Interpretation Comments Total Protein (test code = Total 7.0 6.4-8.4 Protein) [place] [address]-10-14 08:42:00 Test Item Value Reference Range Interpretation Comments Albumin Lvl (test code = Albumin Lvl) 2.8 3.5-5.0 [facility] [id number] 08:42:00 Test Item Value Reference Range Interpretation Comments ALT (test code = ALT) 20 See_Comment [Auto mated message] The system which ge nerated this result transmit fabiano reference range : <=65. The reference range was not used to interpr et this result as aleks l/abnormal. [facility] [id number] 08:42:00 Test Item Value Reference Range Interpretation Comments AST (test code = AST) 11 See_Comment [Auto mated message] The system which ge nerated this result transmit fabiano reference range : <=37. The reference range was not used to interpr et this result as aleks l/abnormal. [facility] [id number] 08:42:00 Test Item Value Reference Range Interpretation Comments Alk Phos (test code = Alk Phos) 108 39-136 [facility] [id number] 08:42:00 Test Item Value Reference Range Interpretation Comments Bili Total (test code = Bili Total) 0.4 0.2-1.3 [facility] [place] [place] [id number] 08:42:00 Test Item Value Reference Range Interpretation Comments AGAP (test code = AGAP) 12.6 10.0-20.0 [place] [address]-10-14 08:42:00 Test Item Value Reference Range Interpretation Comments B/C Ratio (test code = B/C Ratio) 14 1 6-25 [place] [address]-10-14 08:42:00 Test Item Value Reference Range Interpretation Comments Globulin (test code = Globulin) 4.2 2.7-4.2 [place] 245222-10-14 08:42:00 Test Item Value Reference Range Interpretation Comments A/G Ratio (test code = A/G Ratio) 0.7 1 0.7-1.6 [place] [address]-10-14 08:42:00 Test Item Value Reference Range Interpretation Comments eGFR (test code = eGFR) 108 [place] 245222-10-14 08:42:00 Test Item Value Reference Range Interpretation Comments Phosphorus (test code = Phosphorus) 5.4 2.5-4.5 [place] [address]-10-14 08:42:00 Test Item Value Reference Range Interpretation Comments WBC (test code = WBC) 12.5 3.7-10.4 [place] [address]-10-14 08:42:00 Test Item Value Reference Range Interpretation Comments RBC (test code = RBC) 3.94 4.20-5.40 [place] [address]-10-14 08:42:00 Test Item Value Reference Range Interpretation Comments Hgb (test code = Hgb) 10.6 12.0-16.0 [place] [address]-10-14 08:42:00 Test Item Value Reference Range Interpretation Comments Hct (test code = Hct) 31.6 36.0-48.0 [place] [address]-10-14 08:42:00 Test Item Value Reference Range Interpretation Comments MCV (test code = MCV) 80.2 80.0-98.0 [place] [address]-10-14 08:42:00 Test Item Value Reference Range Interpretation Comments MCH (test code = MCH) 26.9 pg 27.0-31.0 [place] [address]-10-14 08:42:00 Test Item Value Reference Range Interpretation Comments MCHC (test code = MCHC) 33.6 32.0-36.0 [place] 495052-10-14 08:42:00 Test Item Value Reference Range Interpretation Comments RDW (test code = RDW) 16.4 11.5-14.5 [place] 495052-10-14 08:42:00 Test Item Value Reference Range Interpretation Comments Platelet (test code = Platelet) 339 133-450 [facility] DistrictLgzendwMYGRAVEVZQ3478-52-85 08:42:00 Test Item Value Reference Range Interpretation Comments MPV (test code = MPV) 8.0 7.4-10.4 [place] [address]-10-14 08:42:00 Test Item Value Reference Range Interpretation Comments Segs (test code = Segs) 77.8 45.0-75.0 [place] 495052-10-14 08:42:00 Test Item Value Reference Range Interpretation Comments Lymphocytes (test code = Lymphocytes) 13.5 20.0-40.0 [place] 495052-10-14 08:42:00 Test Item Value Reference Range Interpretation Comments Monocytes (test code = Monocytes) 6.5 2.0-12.0 [facility] DistrictSpqypokZMILRGGVAF9762-29-79 08:42:00 Test Item Value Reference Range Interpretation Comments Eosinophils (test code = 1.6 See_Comment [A utomated message] The Eosinophils) system which ge nerated this result tra nsmitted reference range : <=4.0. The reference r quynh was not used to int erpret this result as normal/abnormal . [facility] DistrictLysumloGRIJQCTENQ8549-88-85 08:42:00 Test Item Value Reference Range Interpretation Comments Basophils (test code = 0.6 See_Comment [Aut omated message] The Basophils) system which ge nerated this result tra nsmitted reference range : <=1.0. The reference r quynh was not used to int erpret this result as normal/abnormal . [place] 495052-10-14 08:42:00 Test Item Value Reference Range Interpretation Comments Neutrophils # (test code = Neutrophils 9.8 1.5-8.1 #) [place] 495052-10-14 08:42:00 Test Item Value Reference Range Interpretation Comments Lymphocytes # (test code = Lymphocytes 1.7 1.0-5.5 #) [place] [address]-10-14 08:42:00 Test Item Value Reference Range Interpretation Comments Monocytes # (test code 0.8 See_Comment [Aut omated message] The = Monocytes #) system which generated this result tra nsmitted reference range : <=0.8. The reference r quynh was not used to int erpret this result as normal/abnormal . [facility] DistrictNtaqookNQEVMTUWFK5328-17-51 08:42:00 Test Item Value Reference Range Interpretation Comments Eosinophils # (test code 0.2 See_Comment [A utomated message] The = Eosinophils #) system whic h generated this result tra nsmitted reference range : <=0.5. The reference r quynh was not used to int erpret this result as normal/abnormal . [facility] DistrictYnqipwtALBCDYHNNY0560-28-96 08:42:00 Test Item Value Reference Range Interpretation Comments Basophils # (test code 0.1 See_Comment [Aut omated message] The = Basophils #) system which generated this result tra nsmitted reference range : <=0.2. The reference r quynh was not used to int erpret this result as normal/abnormal . [facility] [id number] 08:42:00 Test Item Value Reference Range Interpretation Comments Magnesium Lvl (test code = Magnesium 2.2 1.8-2.4 Lvl) [facility]2022-10-14 08:42:00 Test Item Value Reference Range Interpretation Comments Glucose Lvl (test code = Glucose Lvl) [place] 245222-10-14 08:42:00 Test Item Value Reference Range Interpretation Comments BUN (test code = BUN) 01-18 [facility] [id number] 08:42:00 Test Item Value Reference Range Interpretation Comments Magnesium Lvl (test code = Magnesium 2.2 1.8-2.4 Lvl) [place] 245222-10-14 08:42:00 Test Item Value Reference Range Interpretation Comments Glucose Lvl (test code = Glucose Lvl) 89 [place] 245222-10-14 08:42:00 Test Item Value Reference Range Interpretation Comments BUN (test code = BUN) 8 01-18 [facility] [id number] 08:42:00 Test Item Value Reference Range Interpretation Comments Creatinine Lvl (test code = Creatinine 0.59 0.50-1.40 Lvl) [address]10-14 08:42:00 Test Item Value Reference Range Interpretation Comments Sodium Lvl (test code = Sodium Lvl) 142 135-145 [address]10-14 08:42:00 Test Item Value Reference Range Interpretation Comments Potassium Lvl (test code = Potassium 3.6 3.5-5.1 Lvl) [address]10-14 08:42:00 Test Item Value Reference Range Interpretation Comments Chloride Lvl (test code = Chloride Lvl) 103 95-109 [address]10-14 08:42:00 Test Item Value Reference Range Interpretation Comments CO2 (test code = CO2) 30 24-32 [address]10-14 08:42:00 Test Item Value Reference Range Interpretation Comments Calcium Lvl (test code = Calcium Lvl) 9.8 8.5-10.5 [address]10-14 08:42:00 Test Item Value Reference Range Interpretation Comments Total Protein (test code = Total 7.0 6.4-8.4 Protein) [address]10-14 08:42:00 Test Item Value Reference Range Interpretation Comments Creatinine Lvl (test code = Creatinine 0.59 0.50-1.40 Lvl) [address]10-14 08:42:00 Test Item Value Reference Range Interpretation Comments Albumin Lvl (test code = Albumin Lvl) 2.8 3.5-5.0 [address]10-14 08:42:00 Test Item Value Reference Range Interpretation Comments ALT (test code = ALT) 20 See_Comment [Auto mated message] The system which ge nerated this result transmit fabiano reference range : <=65. The reference range was not used to interpr et this result as aleks l/abnormal. [address]10-14 08:42:00 Test Item Value Reference Range Interpretation Comments AST (test code = AST) 11 See_Comment [Auto mated message] The system which ge nerated this result transmit fabiano reference range : <=37. The reference range was not used to interpr et this result as aleks l/abnormal. [place] 245222-10-14 08:42:00 Test Item Value Reference Range Interpretation Comments Alk Phos (test code = Alk Phos) 108 39-136 [place] 245222-10-14 08:42:00 Test Item Value Reference Range Interpretation Comments Bili Total (test code = Bili Total) 0.4 0.2-1.3 [place] 245222-10-14 08:42:00 Test Item Value Reference Range Interpretation Comments AGAP (test code = AGAP) 12.6 10.0-20.0 [place] 245222-10-14 08:42:00 Test Item Value Reference Range Interpretation Comments B/C Ratio (test code = B/C Ratio) 14 1 6-25 [place] 245222-10-14 08:42:00 Test Item Value Reference Range Interpretation Comments Globulin (test code = Globulin) 4.2 2.7-4.2 [place] 245222-10-14 08:42:00 Test Item Value Reference Range Interpretation Comments A/G Ratio (test code = A/G Ratio) 0.7 1 0.7-1.6 [place] 245222-10-14 08:42:00 Test Item Value Reference Range Interpretation Comments eGFR (test code = eGFR) 108 [place] 245222-10-14 08:42:00 Test Item Value Reference Range Interpretation Comments Sodium Lvl (test code = Sodium Lvl) 142 135-145 [place] 245222-10-14 08:42:00 Test Item Value Reference Range Interpretation Comments Phosphorus (test code = Phosphorus) 5.4 2.5-4.5 [place] 495052-10-14 08:42:00 Test Item Value Reference Range Interpretation Comments WBC (test code = WBC) 12.5 3.7-10.4 [place] 495052-10-14 08:42:00 Test Item Value Reference Range Interpretation Comments RBC (test code = RBC) 3.94 4.20-5.40 [place] 495052-10-14 08:42:00 Test Item Value Reference Range Interpretation Comments Hgb (test code = Hgb) 10.6 12.0-16.0 [place] [address]-10-14 08:42:00 Test Item Value Reference Range Interpretation Comments Hct (test code = Hct) 31.6 36.0-48.0 [facility] MarshallQhlvmcbZTEBYUIOCC2745-57-76 08:42:00 Test Item Value Reference Range Interpretation Comments MCV (test code = MCV) 80.2 80.0-98.0 [place] 495052-10-14 08:42:00 Test Item Value Reference Range Interpretation Comments MCH (test code = MCH) 26.9 pg 27.0-31.0 [place] 495052-10-14 08:42:00 Test Item Value Reference Range Interpretation Comments MCHC (test code = MCHC) 33.6 32.0-36.0 [place] 495052-10-14 08:42:00 Test Item Value Reference Range Interpretation Comments RDW (test code = RDW) 16.4 11.5-14.5 [place] 495052-10-14 08:42:00 Test Item Value Reference Range Interpretation Comments Platelet (test code = Platelet) 339 133-450 [facility]2022-10-14 08:42:00 Test Item Value Reference Range Interpretation Comments Potassium Lvl (test code = Potassium 3.6 3.5-5.1 Lvl) [facility] DistrictAvyvbbwNQQZDTRATS4645-67-64 08:42:00 Test Item Value Reference Range Interpretation Comments MPV (test code = MPV) 8.0 7.4-10.4 [place] [address]-10-14 08:42:00 Test Item Value Reference Range Interpretation Comments Segs (test code = Segs) 77.8 45.0-75.0 [place] [address]-10-14 08:42:00 Test Item Value Reference Range Interpretation Comments Lymphocytes (test code = Lymphocytes) 13.5 20.0-40.0 [place] [address]-10-14 08:42:00 Test Item Value Reference Range Interpretation Comments Monocytes (test code = Monocytes) 6.5 2.0-12.0 [place] [address]-10-14 08:42:00 Test Item Value Reference Range Interpretation Comments Eosinophils (test code = 1.6 See_Comment [A utomated message] The Eosinophils) system which ge nerated this result tra nsmitted reference range : <=4.0. The reference r quynh was not used to int erpret this result as normal/abnormal . [place] 495052-10-14 08:42:00 Test Item Value Reference Range Interpretation Comments Basophils (test code = 0.6 See_Comment [Aut omated message] The Basophils) system which ge nerated this result tra nsmitted reference range : <=1.0. The reference r quynh was not used to int erpret this result as normal/abnormal . [facility] DistrictOngbyueNPEFAWCBWE2762-59-24 08:42:00 Test Item Value Reference Range Interpretation Comments Neutrophils # (test code = Neutrophils 9.8 1.5-8.1 #) [facility] DistrictWxtsfgyJFDAKZCDAN4569-91-05 08:42:00 Test Item Value Reference Range Interpretation Comments Lymphocytes # (test code = Lymphocytes 1.7 1.0-5.5 #) [facility] DistrictXwpvdusAHOKUTFMYS8761-68-07 08:42:00 Test Item Value Reference Range Interpretation Comments Monocytes # (test code 0.8 See_Comment [Aut omated message] The = Monocytes #) system which generated this result tra nsmitted reference range : <=0.8. The reference r quynh was not used to int erpret this result as normal/abnormal . [facility] MarshallOmtvmowJJRWWXQDBF0388-00-73 08:42:00 Test Item Value Reference Range Interpretation Comments Eosinophils # (test code 0.2 See_Comment [A utomated message] The = Eosinophils #) system whic h generated this result tra nsmitted reference range : <=0.5. The reference r quynh was not used to int erpret this result as normal/abnormal . [facility] [employer] [id number] 08:42:00 Test Item Value Reference Range Interpretation Comments Chloride Lvl (test code = Chloride Lvl) 103 95-109 [facility] DistrictVraqpaoPXEMKPUWPY2644-53-80 08:42:00 Test Item Value Reference Range Interpretation Comments Basophils # (test code 0.1 See_Comment [Aut omated message] The = Basophils #) system which generated this result tra nsmitted reference range : <=0.2. The reference r quynh was not used to int erpret this result as normal/abnormal . [facility] [employer] [id number] 08:42:00 Test Item Value Reference Range Interpretation Comments CO2 (test code = CO2) 30 24-32 [facility] [employer]2022-10-14 08:42:00 Test Item Value Reference Range Interpretation Comments Calcium Lvl (test code = Calcium Lvl) 9.8 8.5-10.5 [facility] [id number] 08:42:00 Test Item Value Reference Range Interpretation Comments Total Protein (test code = Total 7.0 6.4-8.4 Protein) [facility] [id number] 08:42:00 Test Item Value Reference Range Interpretation Comments Albumin Lvl (test code = Albumin Lvl) 2.8 3.5-5.0 [facility] [employer] [id number] 08:42:00 Test Item Value Reference Range Interpretation Comments ALT (test code = ALT) 20 See_Comment [Auto mated message] The system which ge nerated this result transmit fabiano reference range : <=65. The reference range was not used to interpr et this result as aleks l/abnormal. [facility] [employer] [id number] 08:42:00 Test Item Value Reference Range Interpretation Comments AST (test code = AST) 11 See_Comment [Auto mated message] The system which ge nerated this result transmit fabiano reference range : <=37. The reference range was not used to interpr et this result as aleks l/abnormal. [facility] [employer] [id number] 08:42:00 Test Item Value Reference Range Interpretation Comments Alk Phos (test code = Alk Phos) 108 39-136 [facility] [employer] [id number] 08:42:00 Test Item Value Reference Range Interpretation Comments Bili Total (test code = Bili Total) 0.4 0.2-1.3 [facility] [employer] [id number] 08:42:00 Test Item Value Reference Range Interpretation Comments AGAP (test code = AGAP) 12.6 10.0-20.0 [facility] [employer] [id number] 08:42:00 Test Item Value Reference Range Interpretation Comments B/C Ratio (test code = B/C Ratio) 14 1 6-25 [facility] [employer] [id number] 08:42:00 Test Item Value Reference Range Interpretation Comments Globulin (test code = Globulin) 4.2 2.7-4.2 [facility] [employer] [id number] 08:42:00 Test Item Value Reference Range Interpretation Comments A/G Ratio (test code = A/G Ratio) 0.7 1 0.7-1.6 [place] 245222-10-14 08:42:00 Test Item Value Reference Range Interpretation Comments eGFR (test code = eGFR) 108 [place] 245222-10-14 08:42:00 Test Item Value Reference Range Interpretation Comments Phosphorus (test code = Phosphorus) 5.4 2.5-4.5 [place] 495052-10-14 08:42:00 Test Item Value Reference Range Interpretation Comments WBC (test code = WBC) 12.5 3.7-10.4 [place] [address]-10-14 08:42:00 Test Item Value Reference Range Interpretation Comments RBC (test code = RBC) 3.94 4.20-5.40 [place] [address]-10-14 08:42:00 Test Item Value Reference Range Interpretation Comments Hgb (test code = Hgb) 10.6 12.0-16.0 [place] [address]-10-14 08:42:00 Test Item Value Reference Range Interpretation Comments Hct (test code = Hct) 31.6 36.0-48.0 [place] [address]-10-14 08:42:00 Test Item Value Reference Range Interpretation Comments MCV (test code = MCV) 80.2 80.0-98.0 [place] [address]-10-14 08:42:00 Test Item Value Reference Range Interpretation Comments MCH (test code = MCH) 26.9 pg 27.0-31.0 [place] [address]-10-14 08:42:00 Test Item Value Reference Range Interpretation Comments MCHC (test code = MCHC) 33.6 32.0-36.0 [place] [address]-10-14 08:42:00 Test Item Value Reference Range Interpretation Comments RDW (test code = RDW) 16.4 11.5-14.5 [place] 495052-10-14 08:42:00 Test Item Value Reference Range Interpretation Comments Platelet (test code = Platelet) 339 133-450 [facility]2022-10-14 08:42:00 Test Item Value Reference Range Interpretation Comments Magnesium Lvl (test code = Magnesium 2.2 1.8-2.4 Lvl) [place] 245222-10-14 08:42:00 Test Item Value Reference Range Interpretation Comments Glucose Lvl (test code = Glucose Lvl) 89 70-99 [place] [address]-10-14 08:42:00 Test Item Value Reference Range Interpretation Comments BUN (test code = BUN) 8 7-22 [place] [address]-10-14 08:42:00 Test Item Value Reference Range Interpretation Comments Creatinine Lvl (test code = Creatinine 0.59 0.50-1.40 Lvl) [place] 245222-10-14 08:42:00 Test Item Value Reference Range Interpretation Comments Sodium Lvl (test code = Sodium Lvl) 142 135-145 [place] 245222-10-14 08:42:00 Test Item Value Reference Range Interpretation Comments Potassium Lvl (test code = Potassium 3.6 3.5-5.1 Lvl) [place] 245222-10-14 08:42:00 Test Item Value Reference Range Interpretation Comments Chloride Lvl (test code = Chloride Lvl) 103 95-109 [place] 245222-10-14 08:42:00 Test Item Value Reference Range Interpretation Comments CO2 (test code = CO2) 30 24-32 [place] 245222-10-14 08:42:00 Test Item Value Reference Range Interpretation Comments Calcium Lvl (test code = Calcium Lvl) 9.8 8.5-10.5 [place] 495052-10-14 08:42:00 Test Item Value Reference Range Interpretation Comments MPV (test code = MPV) 8.0 7.4-10.4 [place] 245222-10-14 08:42:00 Test Item Value Reference Range Interpretation Comments Total Protein (test code = Total 7.0 6.4-8.4 Protein) [place] 245222-10-14 08:42:00 Test Item Value Reference Range Interpretation Comments Albumin Lvl (test code = Albumin Lvl) 2.8 3.5-5.0 [place] [address]-10-14 08:42:00 Test Item Value Reference Range Interpretation Comments ALT (test code = ALT) 20 See_Comment [Auto mated message] The system which ge nerated this result transmit fabiano reference range : <=65. The reference range was not used to interpr et this result as aleks l/abnormal. [place] 245222-10-14 08:42:00 Test Item Value Reference Range Interpretation Comments AST (test code = AST) 11 See_Comment [Auto mated message] The system which ge nerated this result transmit fabiano reference range : <=37. The reference range was not used to interpr et this result as aleks l/abnormal. [place] 245222-10-14 08:42:00 Test Item Value Reference Range Interpretation Comments Alk Phos (test code = Alk Phos) 108 39-136 [place] 245222-10-14 08:42:00 Test Item Value Reference Range Interpretation Comments Bili Total (test code = Bili Total) 0.4 0.2-1.3 [place] [address]-10-14 08:42:00 Test Item Value Reference Range Interpretation Comments AGAP (test code = AGAP) 12.6 10.0-20.0 [place] [address]-10-14 08:42:00 Test Item Value Reference Range Interpretation Comments B/C Ratio (test code = B/C Ratio) 14 1 6-25 [place] [address]-10-14 08:42:00 Test Item Value Reference Range Interpretation Comments Globulin (test code = Globulin) 4.2 2.7-4.2 [place] [address]-10-14 08:42:00 Test Item Value Reference Range Interpretation Comments A/G Ratio (test code = A/G Ratio) 0.7 1 0.7-1.6 [place] 495052-10-14 08:42:00 Test Item Value Reference Range Interpretation Comments Segs (test code = Segs) 77.8 45.0-75.0 [place] [address]-10-14 08:42:00 Test Item Value Reference Range Interpretation Comments eGFR (test code = eGFR) 108 [place] 245222-10-14 08:42:00 Test Item Value Reference Range Interpretation Comments Phosphorus (test code = Phosphorus) 5.4 2.5-4.5 [place] [address]-10-14 08:42:00 Test Item Value Reference Range Interpretation Comments WBC (test code = WBC) 12.5 3.7-10.4 [facility] DistrictBvhligoMXGOVLAVUF3005-69-29 08:42:00 Test Item Value Reference Range Interpretation Comments RBC (test code = RBC) 3.94 4.20-5.40 [facility] DistrictRflktcvDEVHWVDGPJ7191-19-18 08:42:00 Test Item Value Reference Range Interpretation Comments Hgb (test code = Hgb) 10.6 12.0-16.0 [facility] DistrictWvxrxrxJCLLBFKVGM7974-67-14 08:42:00 Test Item Value Reference Range Interpretation Comments Hct (test code = Hct) 31.6 36.0-48.0 [facility] DistrictExlmxcxPCXUYRUFMV8668-80-24 08:42:00 Test Item Value Reference Range Interpretation Comments MCV (test code = MCV) 80.2 80.0-98.0 [facility] DistrictOhsppnmNBXSAAGBKX6783-57-45 08:42:00 Test Item Value Reference Range Interpretation Comments MCH (test code = MCH) 26.9 pg 27.0-31.0 [facility] DistrictOphurhuKAWEPSOPCE4018-00-35 08:42:00 Test Item Value Reference Range Interpretation Comments MCHC (test code = MCHC) 33.6 32.0-36.0 [facility] DistrictIvqqodhZSZNXBKXYJ4655-49-82 08:42:00 Test Item Value Reference Range Interpretation Comments RDW (test code = RDW) 16.4 11.5-14.5 [facility] DistrictGobkavaHMSUSMBDLT5100-03-50 08:42:00 Test Item Value Reference Range Interpretation Comments Lymphocytes (test code = Lymphocytes) 13.5 20.0-40.0 [facility] DistrictTlixwysZJTUHIAJUV1223-17-89 08:42:00 Test Item Value Reference Range Interpretation Comments Platelet (test code = Platelet) 339 133-450 [facility] DistrictZumizphMZCMDEABPZ9108-70-13 08:42:00 Test Item Value Reference Range Interpretation Comments MPV (test code = MPV) 8.0 7.4-10.4 [facility] DistrictHzlzzxnBLSZOGPYEK2653-61-79 08:42:00 Test Item Value Reference Range Interpretation Comments Segs (test code = Segs) 77.8 45.0-75.0 [facility] DistrictAkimqxxGBQYIRHBYQ3528-20-97 08:42:00 Test Item Value Reference Range Interpretation Comments Lymphocytes (test code = Lymphocytes) 13.5 20.0-40.0 [facility] DistrictHzjptfwIQAHRQWQOC6062-80-30 08:42:00 Test Item Value Reference Range Interpretation Comments Monocytes (test code = Monocytes) 6.5 2.0-12.0 [place] 495052-10-14 08:42:00 Test Item Value Reference Range Interpretation Comments Eosinophils (test code = 1.6 See_Comment [A utomated message] The Eosinophils) system which ge nerated this result tra nsmitted reference range : <=4.0. The reference r quynh was not used to int erpret this result as normal/abnormal . [place] [address]-10-14 08:42:00 Test Item Value Reference Range Interpretation Comments Basophils (test code = 0.6 See_Comment [Aut omated message] The Basophils) system which ge nerated this result tra nsmitted reference range : <=1.0. The reference r quynh was not used to int erpret this result as normal/abnormal . [place] 495052-10-14 08:42:00 Test Item Value Reference Range Interpretation Comments Neutrophils # (test code = Neutrophils 9.8 1.5-8.1 #) [place] [address]-10-14 08:42:00 Test Item Value Reference Range Interpretation Comments Lymphocytes # (test code = Lymphocytes 1.7 1.0-5.5 #) [place] 495052-10-14 08:42:00 Test Item Value Reference Range Interpretation Comments Monocytes # (test code 0.8 See_Comment [Aut omated message] The = Monocytes #) system which generated this result tra nsmitted reference range : <=0.8. The reference r quynh was not used to int erpret this result as normal/abnormal . [place] 495052-10-14 08:42:00 Test Item Value Reference Range Interpretation Comments Monocytes (test code = Monocytes) 6.5 2.0-12.0 [place] [address]-10-14 08:42:00 Test Item Value Reference Range Interpretation Comments Eosinophils # (test code 0.2 See_Comment [A utomated message] The = Eosinophils #) system the [facility] generated this result tra nsmitted reference range : <=0.5. The reference r quynh was not used to int erpret this result as normal/abnormal . [place] [address]-10-14 08:42:00 Test Item Value Reference Range Interpretation Comments Basophils # (test code 0.1 See_Comment [Aut omated message] The = Basophils #) system which generated this result tra nsmitted reference range : <=0.2. The reference r quynh was not used to int erpret this result as normal/abnormal . [place] [address]-10-14 08:42:00 Test Item Value Reference Range Interpretation Comments Eosinophils (test code = 1.6 See_Comment [A utomated message] The Eosinophils) system which ge nerated this result tra nsmitted reference range : <=4.0. The reference r quynh was not used to int erpret this result as normal/abnormal . [place] [address]-10-14 08:42:00 Test Item Value Reference Range Interpretation Comments Basophils (test code = 0.6 See_Comment [Aut omated message] The Basophils) system which ge nerated this result tra nsmitted reference range : <=1.0. The reference r quynh was not used to int erpret this result as normal/abnormal . [place] 495052-10-14 08:42:00 Test Item Value Reference Range Interpretation Comments Neutrophils # (test code = Neutrophils 9.8 1.5-8.1 #) [place] [address]-10-14 08:42:00 Test Item Value Reference Range Interpretation Comments Lymphocytes # (test code = Lymphocytes 1.7 1.0-5.5 #) [place] [address]-10-14 08:42:00 Test Item Value Reference Range Interpretation Comments Monocytes # (test code 0.8 See_Comment [Aut omated message] The = Monocytes #) system which generated this result tra nsmitted reference range : <=0.8. The reference r quynh was not used to int erpret this result as normal/abnormal . [place] [address]-10-14 08:42:00 Test Item Value Reference Range Interpretation Comments Eosinophils # (test code 0.2 See_Comment [A utomated message] The = Eosinophils #) system whic h generated this result tra nsmitted reference range : <=0.5. The reference r quynh was not used to int erpret this result as normal/abnormal . [place] 495052-10-14 08:42:00 Test Item Value Reference Range Interpretation Comments Basophils # (test code 0.1 See_Comment [Aut omated message] The = Basophils #) system which generated this result tra nsmitted reference range : <=0.2. The reference r quynh was not used to int erpret this result as normal/abnormal . [facility] [id number] 08:42:00 Test Item Value Reference Range Interpretation Comments Magnesium Lvl (test code = Magnesium 2.2 1.8-2.4 Lvl) [place] 245222-10-14 08:42:00 Test Item Value Reference Range Interpretation Comments Glucose Lvl (test code = Glucose Lvl) 89 70-99 [place] 245222-10-14 08:42:00 Test Item Value Reference Range Interpretation Comments BUN (test code = BUN) 8 7-22 [facility] [id number] 08:42:00 Test Item Value Reference Range Interpretation Comments Creatinine Lvl (test code = Creatinine 0.59 0.50-1.40 Lvl) [facility]2022-10-14 08:42:00 Test Item Value Reference Range Interpretation Comments Sodium Lvl (test code = Sodium Lvl) 142 135-145 [facility] [id number] 08:42:00 Test Item Value Reference Range Interpretation Comments Potassium Lvl (test code = Potassium 3.6 3.5-5.1 Lvl) [facility] [id number] 08:42:00 Test Item Value Reference Range Interpretation Comments Chloride Lvl (test code = Chloride Lvl) 103 95-109 [facility] [id number] 08:42:00 Test Item Value Reference Range Interpretation Comments CO2 (test code = CO2) 30 24-32 [place] 245222-10-14 08:42:00 Test Item Value Reference Range Interpretation Comments Calcium Lvl (test code = Calcium Lvl) 9.8 8.5-10.5 [facility] [id number] 08:42:00 Test Item Value Reference Range Interpretation Comments Total Protein (test code = Total 7.0 6.4-8.4 Protein) [facility]2022-10-14 08:42:00 Test Item Value Reference Range Interpretation Comments Albumin Lvl (test code = Albumin Lvl) 2.8 3.5-5.0 [facility] [id number] 08:42:00 Test Item Value Reference Range Interpretation Comments ALT (test code = ALT) 20 See_Comment [Auto mated message] The system which ge nerated this result transmit fabiano reference range : <=65. The reference range was not used to interpr et this result as aleks l/abnormal. [facility] [employer] [id number] 08:42:00 Test Item Value Reference Range Interpretation Comments AST (test code = AST) 11 See_Comment [Auto mated message] The system which ge nerated this result transmit fabiano reference range : <=37. The reference range was not used to interpr et this result as aleks l/abnormal. [facility] [employer] [id number] 08:42:00 Test Item Value Reference Range Interpretation Comments Alk Phos (test code = Alk Phos) 108 39-136 [facility] [id number] 08:42:00 Test Item Value Reference Range Interpretation Comments Bili Total (test code = Bili Total) 0.4 0.2-1.3 [facility] [id number] 08:42:00 Test Item Value Reference Range Interpretation Comments AGAP (test code = AGAP) 12.6 10.0-20.0 [facility] [employer] [id number] 08:42:00 Test Item Value Reference Range Interpretation Comments B/C Ratio (test code = B/C Ratio) 14 1 6-25 [facility] [id number] 08:42:00 Test Item Value Reference Range Interpretation Comments Globulin (test code = Globulin) 4.2 2.7-4.2 [facility] [employer] [id number] 08:42:00 Test Item Value Reference Range Interpretation Comments A/G Ratio (test code = A/G Ratio) 0.7 1 0.7-1.6 [facility] [employer] [id number] 08:42:00 Test Item Value Reference Range Interpretation Comments eGFR (test code = eGFR) 108 [facility] [employer] [id number] 08:42:00 Test Item Value Reference Range Interpretation Comments Phosphorus (test code = Phosphorus) 5.4 2.5-4.5 [id number] 08:42:00 Test Item Value Reference Range Interpretation Comments WBC (test code = WBC) 12.5 3.7-10.4 [id number] 08:42:00 Test Item Value Reference Range Interpretation Comments RBC (test code = RBC) 3.94 4.20-5.40 [facility] Di[id number] 08:42:00 Test Item Value Reference Range Interpretation Comments Hgb (test code = Hgb) 10.6 12.0-16.0 [facility] D[id number] 08:42:00 Test Item Value Reference Range Interpretation Comments Hct (test code = Hct) 31.6 36.0-48.0 [facility] DistrictWtxecreDCPXLYYRVD3042-12-80 08:42:00 Test Item Value Reference Range Interpretation Comments MCV (test code = MCV) 80.2 80.0-98.0 [facility] Dis[id number] 08:42:00 Test Item Value Reference Range Interpretation Comments MCH (test code = MCH) 26.9 pg 27.0-31.0 [facility] D[id number] 08:42:00 Test Item Value Reference Range Interpretation Comments MCHC (test code = MCHC) 33.6 32.0-36.0 [facility] DistrictXadhqngMCBCPGDGRT6246-79-22 08:42:00 Test Item Value Reference Range Interpretation Comments RDW (test code = RDW) 16.4 11.5-14.5 [facility] DistrictEwjzlukOCQATUHYLN0447-51-15 08:42:00 Test Item Value Reference Range Interpretation Comments Platelet (test code = Platelet) 339 133-450 [facility] Di[id number] 08:42:00 Test Item Value Reference Range Interpretation Comments MPV (test code = MPV) 8.0 7.4-10.4 [facility] DistrictChosukuTMFLXOJVKF4439-84-02 08:42:00 Test Item Value Reference Range Interpretation Comments Segs (test code = Segs) 77.8 45.0-75.0 [facility] DistrictSorxqgfRPPRHGPBXS0796-69-25 08:42:00 Test Item Value Reference Range Interpretation Comments Lymphocytes (test code = Lymphocytes) 13.5 20.0-40.0 [facility] DistrictRlwwujmLXSIOZRCMY6752-78-06 08:42:00 Test Item Value Reference Range Interpretation Comments Monocytes (test code = Monocytes) 6.5 2.0-12.0 [place] [address]-10-14 08:42:00 Test Item Value Reference Range Interpretation Comments Eosinophils (test code = 1.6 See_Comment [A utomated message] The Eosinophils) system which ge nerated this result tra nsmitted reference range : <=4.0. The reference r quynh was not used to int erpret this result as normal/abnormal . [place] [address]-10-14 08:42:00 Test Item Value Reference Range Interpretation Comments Basophils (test code = 0.6 See_Comment [Aut omated message] The Basophils) system which ge nerated this result tra nsmitted reference range : <=1.0. The reference r quynh was not used to int erpret this result as normal/abnormal . [place] [address]-10-14 08:42:00 Test Item Value Reference Range Interpretation Comments Neutrophils # (test code = Neutrophils 9.8 1.5-8.1 #) [place] [address]-10-14 08:42:00 Test Item Value Reference Range Interpretation Comments Lymphocytes # (test code = Lymphocytes 1.7 1.0-5.5 #) [address]10-14 08:42:00 Test Item Value Reference Range Interpretation Comments Monocytes # (test code 0.8 See_Comment [Aut omated message] The = Monocytes #) system which generated this result tra nsmitted reference range : <=0.8. The reference r quynh was not used to int erpret this result as normal/abnormal . [place] 495052-10-14 08:42:00 Test Item Value Reference Range Interpretation Comments Eosinophils # (test code 0.2 See_Comment [A utomated message] The = Eosinophils #) system whic h generated this result tra nsmitted reference range : <=0.5. The reference r quynh was not used to int erpret this result as normal/abnormal . [place] [address]-10-14 08:42:00 Test Item Value Reference Range Interpretation Comments Basophils # (test code 0.1 See_Comment [Aut omated message] The = Basophils #) system which generated this result tra nsmitted reference range : <=0.2. The reference r quynh was not used to int erpret this result as normal/abnormal . [place] 245222-10-14 08:42:00 Test Item Value Reference Range Interpretation Comments Magnesium Lvl (test code = Magnesium 2.2 1.8-2.4 Lvl) [address]10-14 08:42:00 Test Item Value Reference Range Interpretation Comments Glucose Lvl (test code = Glucose Lvl) 89 70-99 [place] [address]-10-14 08:42:00 Test Item Value Reference Range Interpretation Comments BUN (test code = BUN) 8 7-22 [place] [address]-10-14 08:42:00 Test Item Value Reference Range Interpretation Comments Creatinine Lvl (test code = Creatinine 0.59 0.50-1.40 Lvl) [place] [address]-10-14 08:42:00 Test Item Value Reference Range Interpretation Comments Sodium Lvl (test code = Sodium Lvl) 142 135-145 [place] [address]-10-14 08:42:00 Test Item Value Reference Range Interpretation Comments Potassium Lvl (test code = Potassium 3.6 3.5-5.1 Lvl) [place] 245222-10-14 08:42:00 Test Item Value Reference Range Interpretation Comments Chloride Lvl (test code = Chloride Lvl) 103 95-109 [place] [address]-10-14 08:42:00 Test Item Value Reference Range Interpretation Comments CO2 (test code = CO2) 30 24-32 [place] [address]-10-14 08:42:00 Test Item Value Reference Range Interpretation Comments Calcium Lvl (test code = Calcium Lvl) 9.8 8.5-10.5 [place] 245222-10-14 08:42:00 Test Item Value Reference Range Interpretation Comments Total Protein (test code = Total 7.0 6.4-8.4 Protein) [place] [address]-10-14 08:42:00 Test Item Value Reference Range Interpretation Comments Albumin Lvl (test code = Albumin Lvl) 2.8 3.5-5.0 [place] [address]-10-14 08:42:00 Test Item Value Reference Range Interpretation Comments ALT (test code = ALT) 20 See_Comment [Auto mated message] The system which ge nerated this result transmit fabiano reference range : <=65. The reference range was not used to interpr et this result as aleks l/abnormal. [place] 245222-10-14 08:42:00 Test Item Value Reference Range Interpretation Comments AST (test code = AST) 11 See_Comment [Auto mated message] The system which ge nerated this result transmit fabiano reference range : <=37. The reference range was not used to interpr et this result as aleks l/abnormal. [place] 245222-10-14 08:42:00 Test Item Value Reference Range Interpretation Comments Alk Phos (test code = Alk Phos) 108 39-136 [place] [address]-10-14 08:42:00 Test Item Value Reference Range Interpretation Comments Bili Total (test code = Bili Total) 0.4 0.2-1.3 [place] 245222-10-14 08:42:00 Test Item Value Reference Range Interpretation Comments AGAP (test code = AGAP) 12.6 10.0-20.0 [place] 245222-10-14 08:42:00 Test Item Value Reference Range Interpretation Comments B/C Ratio (test code = B/C Ratio) 14 1 6-25 [place] [address]-10-14 08:42:00 Test Item Value Reference Range Interpretation Comments Globulin (test code = Globulin) 4.2 2.7-4.2 [place] 245222-10-14 08:42:00 Test Item Value Reference Range Interpretation Comments A/G Ratio (test code = A/G Ratio) 0.7 1 0.7-1.6 [place] 245222-10-14 08:42:00 Test Item Value Reference Range Interpretation Comments eGFR (test code = eGFR) 108 [place] 245222-10-14 08:42:00 Test Item Value Reference Range Interpretation Comments Phosphorus (test code = Phosphorus) 5.4 2.5-4.5 [place] 495052-10-14 08:42:00 Test Item Value Reference Range Interpretation Comments WBC (test code = WBC) 12.5 3.7-10.4 [place] 495052-10-14 08:42:00 Test Item Value Reference Range Interpretation Comments RBC (test code = RBC) 3.94 4.20-5.40 [place] [address]-10-14 08:42:00 Test Item Value Reference Range Interpretation Comments Hgb (test code = Hgb) 10.6 12.0-16.0 [place] 495052-10-14 08:42:00 Test Item Value Reference Range Interpretation Comments Hct (test code = Hct) 31.6 36.0-48.0 [place] 495052-10-14 08:42:00 Test Item Value Reference Range Interpretation Comments MCV (test code = MCV) 80.2 80.0-98.0 [place] 495052-10-14 08:42:00 Test Item Value Reference Range Interpretation Comments MCH (test code = MCH) 26.9 pg 27.0-31.0 [place] 495052-10-14 08:42:00 Test Item Value Reference Range Interpretation Comments MCHC (test code = MCHC) 33.6 32.0-36.0 [place] 495052-10-14 08:42:00 Test Item Value Reference Range Interpretation Comments RDW (test code = RDW) 16.4 11.5-14.5 [facility] DistrictOfbqggdZVHZYAVRBL8605-71-15 08:42:00 Test Item Value Reference Range Interpretation Comments Platelet (test code = Platelet) 339 133-450 [facility] DistrictLvrviprNHDNODXTJB4882-67-67 08:42:00 Test Item Value Reference Range Interpretation Comments MPV (test code = MPV) 8.0 7.4-10.4 [place] [address]-10-14 08:42:00 Test Item Value Reference Range Interpretation Comments Segs (test code = Segs) 77.8 45.0-75.0 [facility] DistrictGhcivzjAZJUBZOUOP0903-06-99 08:42:00 Test Item Value Reference Range Interpretation Comments Lymphocytes (test code = Lymphocytes) 13.5 20.0-40.0 [place] [address]-10-14 08:42:00 Test Item Value Reference Range Interpretation Comments Monocytes (test code = Monocytes) 6.5 2.0-12.0 [place] [address]-10-14 08:42:00 Test Item Value Reference Range Interpretation Comments Eosinophils (test code = 1.6 See_Comment [A utomated message] The Eosinophils) system which ge nerated this result tra nsmitted reference range : <=4.0. The reference r quynh was not used to int erpret this result as normal/abnormal . [place] [address]-10-14 08:42:00 Test Item Value Reference Range Interpretation Comments Basophils (test code = 0.6 See_Comment [Aut omated message] The Basophils) system which ge nerated this result tra nsmitted reference range : <=1.0. The reference r quynh was not used to int erpret this result as normal/abnormal . [place] [address]-10-14 08:42:00 Test Item Value Reference Range Interpretation Comments Neutrophils # (test code = Neutrophils 9.8 1.5-8.1 #) [place] [address]-10-14 08:42:00 Test Item Value Reference Range Interpretation Comments Lymphocytes # (test code = Lymphocytes 1.7 1.0-5.5 #) [address]10-14 08:42:00 Test Item Value Reference Range Interpretation Comments Monocytes # (test code 0.8 See_Comment [Aut omated message] The = Monocytes #) system which generated this result tra nsmitted reference range : <=0.8. The reference r quyhn was not used to int erpret this result as normal/abnormal . [place] [address]-10-14 08:42:00 Test Item Value Reference Range Interpretation Comments Eosinophils # (test code 0.2 See_Comment [A utomated message] The = Eosinophils #) system whic h generated this result tra nsmitted reference range : <=0.5. The reference r quynh was not used to int erpret this result as normal/abnormal . [place] [address]-10-14 08:42:00 Test Item Value Reference Range Interpretation Comments Basophils # (test code 0.1 See_Comment [Aut omated message] The = Basophils #) system which generated this result tra nsmitted reference range : <=0.2. The reference r quynh was not used to int erpret this result as normal/abnormal . [facility] [id number] 08:42:00 Test Item Value Reference Range Interpretation Comments Magnesium Lvl (test code = Magnesium 2.2 1.8-2.4 Lvl) [facility] [id number] 08:42:00 Test Item Value Reference Range Interpretation Comments Glucose Lvl (test code = Glucose Lvl) 89 70-99 [place] [address]-10-14 08:42:00 Test Item Value Reference Range Interpretation Comments BUN (test code = BUN) 8 7-22 [place] [address]-10-14 08:42:00 Test Item Value Reference Range Interpretation Comments Creatinine Lvl (test code = Creatinine 0.59 0.50-1.40 Lvl) [address]10-14 08:42:00 Test Item Value Reference Range Interpretation Comments Sodium Lvl (test code = Sodium Lvl) 142 135-145 [address]10-14 08:42:00 Test Item Value Reference Range Interpretation Comments Potassium Lvl (test code = Potassium 3.6 3.5-5.1 Lvl) [address]10-14 08:42:00 Test Item Value Reference Range Interpretation Comments Chloride Lvl (test code = Chloride Lvl) 103 95-109 [address]10-14 08:42:00 Test Item Value Reference Range Interpretation Comments CO2 (test code = CO2) 30 24-32 [address]10-14 08:42:00 Test Item Value Reference Range Interpretation Comments Calcium Lvl (test code = Calcium Lvl) 9.8 8.5-10.5 [place] [address]-10-14 08:42:00 Test Item Value Reference Range Interpretation Comments Total Protein (test code = Total 7.0 6.4-8.4 Protein) [address]10-14 08:42:00 Test Item Value Reference Range Interpretation Comments Albumin Lvl (test code = Albumin Lvl) 2.8 3.5-5.0 [address]10-14 08:42:00 Test Item Value Reference Range Interpretation Comments ALT (test code = ALT) 20 See_Comment [Auto mated message] The system which ge nerated this result transmit fabiano reference range : <=65. The reference range was not used to interpr et this result as aleks l/abnormal. [address]10-14 08:42:00 Test Item Value Reference Range Interpretation Comments AST (test code = AST) 11 See_Comment [Auto mated message] The system which ge nerated this result transmit fabiano reference range : <=37. The reference range was not used to interpr et this result as aleks l/abnormal. [place] [address]-10-14 08:42:00 Test Item Value Reference Range Interpretation Comments Alk Phos (test code = Alk Phos) 108 39-136 [place] [address]-10-14 08:42:00 Test Item Value Reference Range Interpretation Comments Bili Total (test code = Bili Total) 0.4 0.2-1.3 [place] [address]-10-14 08:42:00 Test Item Value Reference Range Interpretation Comments AGAP (test code = AGAP) 12.6 10.0-20.0 [address]10-14 08:42:00 Test Item Value Reference Range Interpretation Comments B/C Ratio (test code = B/C Ratio) 14 1 6-25 [address]10-14 08:42:00 Test Item Value Reference Range Interpretation Comments Globulin (test code = Globulin) 4.2 2.7-4.2 [place] [address]-10-14 08:42:00 Test Item Value Reference Range Interpretation Comments A/G Ratio (test code = A/G Ratio) 0.7 1 0.7-1.6 [address]10-14 08:42:00 Test Item Value Reference Range Interpretation Comments eGFR (test code = eGFR) 108 [place] 245222-10-14 08:42:00 Test Item Value Reference Range Interpretation Comments Phosphorus (test code = Phosphorus) 5.4 2.5-4.5 [place] [address]-10-14 08:42:00 Test Item Value Reference Range Interpretation Comments WBC (test code = WBC) 12.5 3.7-10.4 [place] [address]-10-14 08:42:00 Test Item Value Reference Range Interpretation Comments RBC (test code = RBC) 3.94 4.20-5.40 [place] [address]-10-14 08:42:00 Test Item Value Reference Range Interpretation Comments Hgb (test code = Hgb) 10.6 12.0-16.0 [address]10-14 08:42:00 Test Item Value Reference Range Interpretation Comments Hct (test code = Hct) 31.6 36.0-48.0 [place] [address]-10-14 08:42:00 Test Item Value Reference Range Interpretation Comments MCV (test code = MCV) 80.2 80.0-98.0 [place] [address]-10-14 08:42:00 Test Item Value Reference Range Interpretation Comments MCH (test code = MCH) 26.9 pg 27.0-31.0 [place] 495052-10-14 08:42:00 Test Item Value Reference Range Interpretation Comments MCHC (test code = MCHC) 33.6 32.0-36.0 [place] [address]-10-14 08:42:00 Test Item Value Reference Range Interpretation Comments RDW (test code = RDW) 16.4 11.5-14.5 [place] [address]-10-14 08:42:00 Test Item Value Reference Range Interpretation Comments Platelet (test code = Platelet) 339 133-450 [place] 495052-10-14 08:42:00 Test Item Value Reference Range Interpretation Comments MPV (test code = MPV) 8.0 7.4-10.4 [place] [address]-10-14 08:42:00 Test Item Value Reference Range Interpretation Comments Segs (test code = Segs) 77.8 45.0-75.0 [place] [address]-10-14 08:42:00 Test Item Value Reference Range Interpretation Comments Lymphocytes (test code = Lymphocytes) 13.5 20.0-40.0 [place] 495052-10-14 08:42:00 Test Item Value Reference Range Interpretation Comments Monocytes (test code = Monocytes) 6.5 2.0-12.0 [place] [address]-10-14 08:42:00 Test Item Value Reference Range Interpretation Comments Eosinophils (test code = 1.6 See_Comment [A utomated message] The Eosinophils) system which ge nerated this result tra nsmitted reference range : <=4.0. The reference r quynh was not used to int erpret this result as normal/abnormal . [place] [address]-10-14 08:42:00 Test Item Value Reference Range Interpretation Comments Basophils (test code = 0.6 See_Comment [Aut omated message] The Basophils) system which ge nerated this result tra nsmitted reference range : <=1.0. The reference r quynh was not used to int erpret this result as normal/abnormal . [place] [address]-10-14 08:42:00 Test Item Value Reference Range Interpretation Comments Neutrophils # (test code = Neutrophils 9.8 1.5-8.1 #) [place] [address]-10-14 08:42:00 Test Item Value Reference Range Interpretation Comments Lymphocytes # (test code = Lymphocytes 1.7 1.0-5.5 #) [place] [address]-10-14 08:42:00 Test Item Value Reference Range Interpretation Comments Monocytes # (test code 0.8 See_Comment [Aut omated message] The = Monocytes #) system which generated this result tra nsmitted reference range : <=0.8. The reference r quynh was not used to int erpret this result as normal/abnormal . [place] [address]-10-14 08:42:00 Test Item Value Reference Range Interpretation Comments Eosinophils # (test code 0.2 See_Comment [A utomated message] The = Eosinophils #) system whic h generated this result tra nsmitted reference range : <=0.5. The reference r quynh was not used to int erpret this result as normal/abnormal . [place] [address]-10-14 08:42:00 Test Item Value Reference Range Interpretation Comments Basophils # (test code 0.1 See_Comment [Aut omated message] The = Basophils #) system which generated this result tra nsmitted reference range : <=0.2. The reference r quynh was not used to int erpret this result as normal/abnormal . [place] 245222-10-14 08:42:00 Test Item Value Reference Range Interpretation Comments Magnesium Lvl (test code = Magnesium 2.2 1.8-2.4 Lvl) [place] 245222-10-14 08:42:00 Test Item Value Reference Range Interpretation Comments Glucose Lvl (test code = Glucose Lvl) 89 70-99 [place] [address]-10-14 08:42:00 Test Item Value Reference Range Interpretation Comments BUN (test code = BUN) 8 7-22 [place] [address]-10-14 08:42:00 Test Item Value Reference Range Interpretation Comments Creatinine Lvl (test code = Creatinine 0.59 0.50-1.40 Lvl) [place] [address]-10-14 08:42:00 Test Item Value Reference Range Interpretation Comments Sodium Lvl (test code = Sodium Lvl) 142 135-145 [place] [address]-10-14 08:42:00 Test Item Value Reference Range Interpretation Comments Potassium Lvl (test code = Potassium 3.6 3.5-5.1 Lvl) [address]10-14 08:42:00 Test Item Value Reference Range Interpretation Comments Chloride Lvl (test code = Chloride Lvl) 103 95-109 [address]10-14 08:42:00 Test Item Value Reference Range Interpretation Comments CO2 (test code = CO2) 30 24-32 [place] [address]-10-14 08:42:00 Test Item Value Reference Range Interpretation Comments Calcium Lvl (test code = Calcium Lvl) 9.8 8.5-10.5 [place] [address]-10-14 08:42:00 Test Item Value Reference Range Interpretation Comments Total Protein (test code = Total 7.0 6.4-8.4 Protein) [address]10-14 08:42:00 Test Item Value Reference Range Interpretation Comments Albumin Lvl (test code = Albumin Lvl) 2.8 3.5-5.0 [place] [address]-10-14 08:42:00 Test Item Value Reference Range Interpretation Comments ALT (test code = ALT) 20 See_Comment [Auto mated message] The system which Biocycle nerated this result transmit fabiano reference range : <=65. The reference range was not used to interpr et this result as aleks l/abnormal. [facility] [id number] 08:42:00 Test Item Value Reference Range Interpretation Comments AST (test code = AST) 11 See_Comment [Auto mated message] The system which Biocycle nerated this result transmit fabiano reference range : <=37. The reference range was not used to interpr et this result as aleks l/abnormal. [facility] [id number] 08:42:00 Test Item Value Reference Range Interpretation Comments Alk Phos (test code = Alk Phos) 108 39-136 [facility] 08:42:00 Test Item Value Reference Range Interpretation Comments Bili Total (test code = Bili Total) 0.4 0.2-1.3 [place] [address]-10-14 08:42:00 Test Item Value Reference Range Interpretation Comments AGAP (test code = AGAP) 12.6 10.0-20.0 [place] [address]-10-14 08:42:00 Test Item Value Reference Range Interpretation Comments B/C Ratio (test code = B/C Ratio) 14 1 6-25 [address]10-14 08:42:00 Test Item Value Reference Range Interpretation Comments Globulin (test code = Globulin) 4.2 2.7-4.2 [place] [address]-10-14 08:42:00 Test Item Value Reference Range Interpretation Comments A/G Ratio (test code = A/G Ratio) 0.7 1 0.7-1.6 [address]10-14 08:42:00 Test Item Value Reference Range Interpretation Comments eGFR (test code = eGFR) 108 [place] [address]-10-14 08:42:00 Test Item Value Reference Range Interpretation Comments Phosphorus (test code = Phosphorus) 5.4 2.5-4.5 [place] [address]-10-14 08:42:00 Test Item Value Reference Range Interpretation Comments WBC (test code = WBC) 12.5 3.7-10.4 [place] [address]-10-14 08:42:00 Test Item Value Reference Range Interpretation Comments RBC (test code = RBC) 3.94 4.20-5.40 [place] [address]-10-14 08:42:00 Test Item Value Reference Range Interpretation Comments Hgb (test code = Hgb) 10.6 12.0-16.0 [address]10-14 08:42:00 Test Item Value Reference Range Interpretation Comments Hct (test code = Hct) 31.6 36.0-48.0 [place] [address]-10-14 08:42:00 Test Item Value Reference Range Interpretation Comments MCV (test code = MCV) 80.2 80.0-98.0 [place] [address]-10-14 08:42:00 Test Item Value Reference Range Interpretation Comments MCH (test code = MCH) 26.9 pg 27.0-31.0 [place] 495052-10-14 08:42:00 Test Item Value Reference Range Interpretation Comments MCHC (test code = MCHC) 33.6 32.0-36.0 [place] 495052-10-14 08:42:00 Test Item Value Reference Range Interpretation Comments RDW (test code = RDW) 16.4 11.5-14.5 [place] 495052-10-14 08:42:00 Test Item Value Reference Range Interpretation Comments Platelet (test code = Platelet) 339 133-450 [place] 495052-10-14 08:42:00 Test Item Value Reference Range Interpretation Comments MPV (test code = MPV) 8.0 7.4-10.4 [place] 495052-10-14 08:42:00 Test Item Value Reference Range Interpretation Comments Segs (test code = Segs) 77.8 45.0-75.0 [place] 495052-10-14 08:42:00 Test Item Value Reference Range Interpretation Comments Lymphocytes (test code = Lymphocytes) 13.5 20.0-40.0 [place] 495052-10-14 08:42:00 Test Item Value Reference Range Interpretation Comments Monocytes (test code = Monocytes) 6.5 2.0-12.0 [facility]xJAFJWEUBEH4149-61-23 08:42:00 Test Item Value Reference Range Interpretation Comments Eosinophils (test code = 1.6 See_Comment [A utomated message] The Eosinophils) system which ge nerated this result tra nsmitted reference range : <=4.0. The reference r quynh was not used to int erpret this result as normal/abnormal . [facility] DistrictUezzanxDRJRFZCUPY9010-08-96 08:42:00 Test Item Value Reference Range Interpretation Comments Basophils (test code = 0.6 See_Comment [Aut omated message] The Basophils) system which ge nerated this result tra nsmitted reference range : <=1.0. The reference r quynh was not used to int erpret this result as normal/abnormal . [place] 495052-10-14 08:42:00 Test Item Value Reference Range Interpretation Comments Neutrophils # (test code = Neutrophils 9.8 1.5-8.1 #) [place] [address]-10-14 08:42:00 Test Item Value Reference Range Interpretation Comments Lymphocytes # (test code = Lymphocytes 1.7 1.0-5.5 #) [place] [address]-10-14 08:42:00 Test Item Value Reference Range Interpretation Comments Monocytes # (test code 0.8 See_Comment [Aut omated message] The = Monocytes #) system which generated this result tra nsmitted reference range : <=0.8. The reference r quynh was not used to int erpret this result as normal/abnormal . [place] [address]-10-14 08:42:00 Test Item Value Reference Range Interpretation Comments Eosinophils # (test code 0.2 See_Comment [A utomated message] The = Eosinophils #) system whic h generated this result tra nsmitted reference range : <=0.5. The reference r quynh was not used to int erpret this result as normal/abnormal . [place] [address]-10-14 08:42:00 Test Item Value Reference Range Interpretation Comments Basophils # (test code 0.1 See_Comment [Aut omated message] The = Basophils #) system which generated this result tra nsmitted reference range : <=0.2. The reference r quynh was not used to int erpret this result as normal/abnormal . [place] 245222-10-14 08:42:00 Test Item Value Reference Range Interpretation Comments Magnesium Lvl (test code = Magnesium 2.2 1.8-2.4 Lvl) [place] 245222-10-14 08:42:00 Test Item Value Reference Range Interpretation Comments Glucose Lvl (test code = Glucose Lvl) 89 70-99 [place] [address]-10-14 08:42:00 Test Item Value Reference Range Interpretation Comments BUN (test code = BUN) 8 7-22 [place] [address]-10-14 08:42:00 Test Item Value Reference Range Interpretation Comments Creatinine Lvl (test code = Creatinine 0.59 0.50-1.40 Lvl) [place] 245222-10-14 08:42:00 Test Item Value Reference Range Interpretation Comments Sodium Lvl (test code = Sodium Lvl) 142 135-145 [place] 245222-10-14 08:42:00 Test Item Value Reference Range Interpretation Comments Potassium Lvl (test code = Potassium 3.6 3.5-5.1 Lvl) [place] [address]-10-14 08:42:00 Test Item Value Reference Range Interpretation Comments Chloride Lvl (test code = Chloride Lvl) 103 95-109 [place] [address]-10-14 08:42:00 Test Item Value Reference Range Interpretation Comments CO2 (test code = CO2) 30 24-32 [place] [address]-10-14 08:42:00 Test Item Value Reference Range Interpretation Comments Calcium Lvl (test code = Calcium Lvl) 9.8 8.5-10.5 [facility] [id number] 08:42:00 Test Item Value Reference Range Interpretation Comments Total Protein (test code = Total 7.0 6.4-8.4 Protein) [address]10-14 08:42:00 Test Item Value Reference Range Interpretation Comments Albumin Lvl (test code = Albumin Lvl) 2.8 3.5-5.0 [place] [address]-10-14 08:42:00 Test Item Value Reference Range Interpretation Comments ALT (test code = ALT) 20 See_Comment [Auto mated message] The system which ge nerated this result transmit fabiano reference range : <=65. The reference range was not used to interpr et this result as aleks l/abnormal. [facility] [id number] 08:42:00 Test Item Value Reference Range Interpretation Comments AST (test code = AST) 11 See_Comment [Auto mated message] The system which ge nerated this result transmit fabiano reference range : <=37. The reference range was not used to interpr et this result as aleks l/abnormal. [facility] [id number] 08:42:00 Test Item Value Reference Range Interpretation Comments Alk Phos (test code = Alk Phos) 108 39-136 [facility] [id number] 08:42:00 Test Item Value Reference Range Interpretation Comments Bili Total (test code = Bili Total) 0.4 0.2-1.3 [facility] [id number] 08:42:00 Test Item Value Reference Range Interpretation Comments AGAP (test code = AGAP) 12.6 10.0-20.0 [facility]2022-10-14 08:42:00 Test Item Value Reference Range Interpretation Comments B/C Ratio (test code = B/C Ratio) 14 1 6-25 [place] 245222-10-14 08:42:00 Test Item Value Reference Range Interpretation Comments Globulin (test code = Globulin) 4.2 2.7-4.2 [facility]2022-10-14 08:42:00 Test Item Value Reference Range Interpretation Comments A/G Ratio (test code = A/G Ratio) 0.7 1 0.7-1.6 [place] 245222-10-14 08:42:00 Test Item Value Reference Range Interpretation Comments eGFR (test code = eGFR) 108 [facility]2022-10-14 08:42:00 Test Item Value Reference Range Interpretation Comments Phosphorus (test code = Phosphorus) 5.4 2.5-4.5 [facility] DistrictOtpgdhtZIBGCNGNMB8907-62-90 08:42:00 Test Item Value Reference Range Interpretation Comments WBC (test code = WBC) 12.5 3.7-10.4 [facility] DistrictSrespgfTVYVRXDUDY9757-95-69 08:42:00 Test Item Value Reference Range Interpretation Comments RBC (test code = RBC) 3.94 4.20-5.40 [facility] DistrictGgvswzrXVAZCBINOD2119-08-00 08:42:00 Test Item Value Reference Range Interpretation Comments Hgb (test code = Hgb) 10.6 12.0-16.0 [place] 495052-10-14 08:42:00 Test Item Value Reference Range Interpretation Comments Hct (test code = Hct) 31.6 36.0-48.0 [place] 495052-10-14 08:42:00 Test Item Value Reference Range Interpretation Comments MCV (test code = MCV) 80.2 80.0-98.0 [place] 495052-10-14 08:42:00 Test Item Value Reference Range Interpretation Comments MCH (test code = MCH) 26.9 pg 27.0-31.0 [place] 495052-10-14 08:42:00 Test Item Value Reference Range Interpretation Comments MCHC (test code = MCHC) 33.6 32.0-36.0 [place] [address]-10-14 08:42:00 Test Item Value Reference Range Interpretation Comments RDW (test code = RDW) 16.4 11.5-14.5 [place] 495052-10-14 08:42:00 Test Item Value Reference Range Interpretation Comments Platelet (test code = Platelet) 339 133-450 [place] 495052-10-14 08:42:00 Test Item Value Reference Range Interpretation Comments MPV (test code = MPV) 8.0 7.4-10.4 [place] 495052-10-14 08:42:00 Test Item Value Reference Range Interpretation Comments Segs (test code = Segs) 77.8 45.0-75.0 [place] [address]-10-14 08:42:00 Test Item Value Reference Range Interpretation Comments Lymphocytes (test code = Lymphocytes) 13.5 20.0-40.0 [place] 495052-10-14 08:42:00 Test Item Value Reference Range Interpretation Comments Monocytes (test code = Monocytes) 6.5 2.0-12.0 [facility] Dis[id number] 08:42:00 Test Item Value Reference Range Interpretation Comments Eosinophils (test code = 1.6 See_Comment [A utomated message] The Eosinophils) system which ge nerated this result tra nsmitted reference range : <=4.0. The reference r quynh was not used to int erpret this result as normal/abnormal . [facility] DistrictZxyufauUTNENVOAPY1076-27-78 08:42:00 Test Item Value Reference Range Interpretation Comments Basophils (test code = 0.6 See_Comment [Aut omated message] The Basophils) system which ge nerated this result tra nsmitted reference range : <=1.0. The reference r quynh was not used to int erpret this result as normal/abnormal . [place] 495052-10-14 08:42:00 Test Item Value Reference Range Interpretation Comments Neutrophils # (test code = Neutrophils 9.8 1.5-8.1 #) [place] [address]-10-14 08:42:00 Test Item Value Reference Range Interpretation Comments Lymphocytes # (test code = Lymphocytes 1.7 1.0-5.5 #) [place] [address]-10-14 08:42:00 Test Item Value Reference Range Interpretation Comments Monocytes # (test code 0.8 See_Comment [Aut omated message] The = Monocytes #) system which generated this result tra nsmitted reference range : <=0.8. The reference r quynh was not used to int erpret this result as normal/abnormal . [place] [address]-10-14 08:42:00 Test Item Value Reference Range Interpretation Comments Eosinophils # (test code 0.2 See_Comment [A utomated message] The = Eosinophils #) system whic h generated this result tra nsmitted reference range : <=0.5. The reference r quynh was not used to int erpret this result as normal/abnormal . [place] [address]-10-14 08:42:00 Test Item Value Reference Range Interpretation Comments Basophils # (test code 0.1 See_Comment [Aut omated message] The = Basophils #) system which generated this result tra nsmitted reference range : <=0.2. The reference r quynh was not used to int erpret this result as normal/abnormal . [place] 245222-10-14 08:42:00 Test Item Value Reference Range Interpretation Comments Magnesium Lvl (test code = Magnesium 2.2 1.8-2.4 Lvl) [place] 245222-10-14 08:42:00 Test Item Value Reference Range Interpretation Comments Glucose Lvl (test code = Glucose Lvl) 89 70-99 [place] 245222-10-14 08:42:00 Test Item Value Reference Range Interpretation Comments BUN (test code = BUN) 8 7-22 [place] [address]-10-14 08:42:00 Test Item Value Reference Range Interpretation Comments Creatinine Lvl (test code = Creatinine 0.59 0.50-1.40 Lvl) [place] [address]-10-14 08:42:00 Test Item Value Reference Range Interpretation Comments Sodium Lvl (test code = Sodium Lvl) 142 135-145 [place] 245222-10-14 08:42:00 Test Item Value Reference Range Interpretation Comments Potassium Lvl (test code = Potassium 3.6 3.5-5.1 Lvl) [place] 245222-10-14 08:42:00 Test Item Value Reference Range Interpretation Comments Chloride Lvl (test code = Chloride Lvl) 103 95-109 [facility] [place] [id number] 08:42:00 Test Item Value Reference Range Interpretation Comments CO2 (test code = CO2) 30 24-32 [facility] [place] [id number] 08:42:00 Test Item Value Reference Range Interpretation Comments Calcium Lvl (test code = Calcium Lvl) 9.8 8.5-10.5 [facility] [place] [id number] 08:42:00 Test Item Value Reference Range Interpretation Comments Total Protein (test code = Total 7.0 6.4-8.4 Protein) [facility] [place] [id number] 08:42:00 Test Item Value Reference Range Interpretation Comments Albumin Lvl (test code = Albumin Lvl) 2.8 3.5-5.0 [facility] [id number] 08:42:00 Test Item Value Reference Range Interpretation Comments ALT (test code = ALT) 20 See_Comment [Auto mated message] The system which ge nerated this result transmit fabiano reference range : <=65. The reference range was not used to interpr et this result as aleks l/abnormal. [facility] [id number] 08:42:00 Test Item Value Reference Range Interpretation Comments AST (test code = AST) 11 See_Comment [Auto mated message] The system which ge nerated this result transmit fabiano reference range : <=37. The reference range was not used to interpr et this result as aleks l/abnormal. [facility] [id number] 08:42:00 Test Item Value Reference Range Interpretation Comments Alk Phos (test code = Alk Phos) 108 39-136 [facility] [id number] 08:42:00 Test Item Value Reference Range Interpretation Comments Bili Total (test code = Bili Total) 0.4 0.2-1.3 [facility] [id number] 08:42:00 Test Item Value Reference Range Interpretation Comments AGAP (test code = AGAP) 12.6 10.0-20.0 [facility] [id number] 08:42:00 Test Item Value Reference Range Interpretation Comments B/C Ratio (test code = B/C Ratio) 14 1 6-25 [facility] [id number] 08:42:00 Test Item Value Reference Range Interpretation Comments Globulin (test code = Globulin) 4.2 2.7-4.2 [place] 245222-10-14 08:42:00 Test Item Value Reference Range Interpretation Comments A/G Ratio (test code = A/G Ratio) 0.7 1 0.7-1.6 [place] 245222-10-14 08:42:00 Test Item Value Reference Range Interpretation Comments eGFR (test code = eGFR) 108 [place] 245222-10-14 08:42:00 Test Item Value Reference Range Interpretation Comments Phosphorus (test code = Phosphorus) 5.4 2.5-4.5 [place] 495052-10-14 08:42:00 Test Item Value Reference Range Interpretation Comments WBC (test code = WBC) 12.5 3.7-10.4 [facility] DistrictDbosuwjOPWAKAFTMB4450-69-70 08:42:00 Test Item Value Reference Range Interpretation Comments RBC (test code = RBC) 3.94 4.20-5.40 [place] 495052-10-14 08:42:00 Test Item Value Reference Range Interpretation Comments Hgb (test code = Hgb) 10.6 12.0-16.0 [facility] DistrictEmiserjFHCIPMVNDR7290-86-76 08:42:00 Test Item Value Reference Range Interpretation Comments Hct (test code = Hct) 31.6 36.0-48.0 [place] 495052-10-14 08:42:00 Test Item Value Reference Range Interpretation Comments MCV (test code = MCV) 80.2 80.0-98.0 [place] 495052-10-14 08:42:00 Test Item Value Reference Range Interpretation Comments MCH (test code = MCH) 26.9 pg 27.0-31.0 [place] [address]-10-14 08:42:00 Test Item Value Reference Range Interpretation Comments MCHC (test code = MCHC) 33.6 32.0-36.0 [place] 495052-10-14 08:42:00 Test Item Value Reference Range Interpretation Comments RDW (test code = RDW) 16.4 11.5-14.5 [place] 495052-10-14 08:42:00 Test Item Value Reference Range Interpretation Comments Platelet (test code = Platelet) 339 133-450 [facility] DistrictQwtjuvsYQLECVWPAG9105-98-47 08:42:00 Test Item Value Reference Range Interpretation Comments MPV (test code = MPV) 8.0 7.4-10.4 [facility] DistrictDcmjynxIHCCWHHSUJ1275-76-53 08:42:00 Test Item Value Reference Range Interpretation Comments Segs (test code = Segs) 77.8 45.0-75.0 [facility] DistrictJmzfsgcIIWRBAEUWT4530-34-46 08:42:00 Test Item Value Reference Range Interpretation Comments Lymphocytes (test code = Lymphocytes) 13.5 20.0-40.0 [facility] DistrictKbcsasqBLCWOOFYRB7543-72-38 08:42:00 Test Item Value Reference Range Interpretation Comments Monocytes (test code = Monocytes) 6.5 2.0-12.0 [facility] DistrictCkvnomqZDFATGWFDS7846-83-83 08:42:00 Test Item Value Reference Range Interpretation Comments Eosinophils (test code = 1.6 See_Comment [A utomated message] The Eosinophils) system which ge nerated this result tra nsmitted reference range : <=4.0. The reference r quynh was not used to int erpret this result as normal/abnormal . [facility] DistrictMvmzcvpYTVVQRTWDI0235-54-40 08:42:00 Test Item Value Reference Range Interpretation Comments Basophils (test code = 0.6 See_Comment [Aut omated message] The Basophils) system which ge nerated this result tra nsmitted reference range : <=1.0. The reference r quynh was not used to int erpret this result as normal/abnormal . [facility] DistrictSwjzohqFLFDJJJICV7086-56-49 08:42:00 Test Item Value Reference Range Interpretation Comments Neutrophils # (test code = Neutrophils 9.8 1.5-8.1 #) [place] 495052-10-14 08:42:00 Test Item Value Reference Range Interpretation Comments Lymphocytes # (test code = Lymphocytes 1.7 1.0-5.5 #) [place] 495052-10-14 08:42:00 Test Item Value Reference Range Interpretation Comments Monocytes # (test code 0.8 See_Comment [Aut omated message] The = Monocytes #) system which generated this result tra nsmitted reference range : <=0.8. The reference r quynh was not used to int erpret this result as normal/abnormal . [place] [address]-10-14 08:42:00 Test Item Value Reference Range Interpretation Comments Eosinophils # (test code 0.2 See_Comment [A utomated message] The = Eosinophils #) system whic h generated this result tra nsmitted reference range : <=0.5. The reference r quynh was not used to int erpret this result as normal/abnormal . [place] [address]-10-14 08:42:00 Test Item Value Reference Range Interpretation Comments Basophils # (test code 0.1 See_Comment [Aut omated message] The = Basophils #) system which generated this result tra nsmitted reference range : <=0.2. The reference r quynh was not used to int erpret this result as normal/abnormal . [facility] [id number] 08:42:00 Test Item Value Reference Range Interpretation Comments Magnesium Lvl (test code = Magnesium 2.2 1.8-2.4 Lvl) [facility] [id number] 08:42:00 Test Item Value Reference Range Interpretation Comments Glucose Lvl (test code = Glucose Lvl) 89 70-99 [facility] [id number] 08:42:00 Test Item Value Reference Range Interpretation Comments BUN (test code = BUN) 8 7-22 [facility] [id number] 08:42:00 Test Item Value Reference Range Interpretation Comments Creatinine Lvl (test code = Creatinine 0.59 0.50-1.40 Lvl) [facility] [place] [id number] 08:42:00 Test Item Value Reference Range Interpretation Comments Sodium Lvl (test code = Sodium Lvl) 142 135-145 [facility] [id number] 08:42:00 Test Item Value Reference Range Interpretation Comments Potassium Lvl (test code = Potassium 3.6 3.5-5.1 Lvl) [facility] [id number] 08:42:00 Test Item Value Reference Range Interpretation Comments Chloride Lvl (test code = Chloride Lvl) 103 95-109 [facility] [id number] 08:42:00 Test Item Value Reference Range Interpretation Comments CO2 (test code = CO2) 30 24-32 [facility] [id number] 08:42:00 Test Item Value Reference Range Interpretation Comments Calcium Lvl (test code = Calcium Lvl) 9.8 8.5-10.5 [facility] [id number] 08:42:00 Test Item Value Reference Range Interpretation Comments Total Protein (test code = Total 7.0 6.4-8.4 Protein) [place] [address]-10-14 08:42:00 Test Item Value Reference Range Interpretation Comments Albumin Lvl (test code = Albumin Lvl) 2.8 3.5-5.0 [facility] [id number] 08:42:00 Test Item Value Reference Range Interpretation Comments ALT (test code = ALT) 20 See_Comment [Auto mated message] The system which ge nerated this result transmit fabiano reference range : <=65. The reference range was not used to interpr et this result as aleks l/abnormal. [facility] [id number] 08:42:00 Test Item Value Reference Range Interpretation Comments AST (test code = AST) 11 See_Comment [Auto mated message] The system which ge nerated this result transmit fabiano reference range : <=37. The reference range was not used to interpr et this result as aleks l/abnormal. [facility] [id number] 08:42:00 Test Item Value Reference Range Interpretation Comments Alk Phos (test code = Alk Phos) 108 39-136 [facility] [id number] 08:42:00 Test Item Value Reference Range Interpretation Comments Bili Total (test code = Bili Total) 0.4 0.2-1.3 [facility] [id number] 08:42:00 Test Item Value Reference Range Interpretation Comments AGAP (test code = AGAP) 12.6 10.0-20.0 [facility] [id number] 08:42:00 Test Item Value Reference Range Interpretation Comments B/C Ratio (test code = B/C Ratio) 14 1 6-25 [facility] [id number] 08:42:00 Test Item Value Reference Range Interpretation Comments Globulin (test code = Globulin) 4.2 2.7-4.2 [facility] [id number] 08:42:00 Test Item Value Reference Range Interpretation Comments A/G Ratio (test code = A/G Ratio) 0.7 1 0.7-1.6 [place] 245222-10-14 08:42:00 Test Item Value Reference Range Interpretation Comments eGFR (test code = eGFR) 108 [facility]2022-10-14 08:42:00 Test Item Value Reference Range Interpretation Comments Phosphorus (test code = Phosphorus) 5.4 2.5-4.5 [place] 495052-10-14 08:42:00 Test Item Value Reference Range Interpretation Comments WBC (test code = WBC) 12.5 3.7-10.4 [place] 495052-10-14 08:42:00 Test Item Value Reference Range Interpretation Comments RBC (test code = RBC) 3.94 4.20-5.40 [place] 495052-10-14 08:42:00 Test Item Value Reference Range Interpretation Comments Hgb (test code = Hgb) 10.6 12.0-16.0 [place] [address]-10-14 08:42:00 Test Item Value Reference Range Interpretation Comments Hct (test code = Hct) 31.6 36.0-48.0 [place] [address]-10-14 08:42:00 Test Item Value Reference Range Interpretation Comments MCV (test code = MCV) 80.2 80.0-98.0 [place] [address]-10-14 08:42:00 Test Item Value Reference Range Interpretation Comments MCH (test code = MCH) 26.9 pg 27.0-31.0 [place] 495052-10-14 08:42:00 Test Item Value Reference Range Interpretation Comments MCHC (test code = MCHC) 33.6 32.0-36.0 [place] 495052-10-14 08:42:00 Test Item Value Reference Range Interpretation Comments RDW (test code = RDW) 16.4 11.5-14.5 [place] [address]-10-14 08:42:00 Test Item Value Reference Range Interpretation Comments Platelet (test code = Platelet) 339 133-450 [place] 495052-10-14 08:42:00 Test Item Value Reference Range Interpretation Comments MPV (test code = MPV) 8.0 7.4-10.4 [place] 495052-10-14 08:42:00 Test Item Value Reference Range Interpretation Comments Segs (test code = Segs) 77.8 45.0-75.0 [place] [address]-10-14 08:42:00 Test Item Value Reference Range Interpretation Comments Lymphocytes (test code = Lymphocytes) 13.5 20.0-40.0 [place] [address]-10-14 08:42:00 Test Item Value Reference Range Interpretation Comments Monocytes (test code = Monocytes) 6.5 2.0-12.0 [place] 495052-10-14 08:42:00 Test Item Value Reference Range Interpretation Comments Eosinophils (test code = 1.6 See_Comment [A utomated message] The Eosinophils) system which ge nerated this result tra nsmitted reference range : <=4.0. The reference r quynh was not used to int erpret this result as normal/abnormal . [place] [address]-10-14 08:42:00 Test Item Value Reference Range Interpretation Comments Basophils (test code = 0.6 See_Comment [Aut omated message] The Basophils) system which ge nerated this result tra nsmitted reference range : <=1.0. The reference r quynh was not used to int erpret this result as normal/abnormal . [place] 495052-10-14 08:42:00 Test Item Value Reference Range Interpretation Comments Neutrophils # (test code = Neutrophils 9.8 1.5-8.1 #) [place] [address]-10-14 08:42:00 Test Item Value Reference Range Interpretation Comments Lymphocytes # (test code = Lymphocytes 1.7 1.0-5.5 #) [place] [address]-10-14 08:42:00 Test Item Value Reference Range Interpretation Comments Monocytes # (test code 0.8 See_Comment [Aut omated message] The = Monocytes #) system which generated this result tra nsmitted reference range : <=0.8. The reference r quynh was not used to int erpret this result as normal/abnormal . [place] [address]-10-14 08:42:00 Test Item Value Reference Range Interpretation Comments Eosinophils # (test code 0.2 See_Comment [A utomated message] The = Eosinophils #) system wh h generated this result tra nsmitted reference range : <=0.5. The reference r quynh was not used to int erpret this result as normal/abnormal . [place] 495052-10-14 08:42:00 Test Item Value Reference Range Interpretation Comments Basophils # (test code 0.1 See_Comment [Aut omated message] The = Basophils #) system which generated this result tra nsmitted reference range : <=0.2. The reference r quyhn was not used to int erpret this result as normal/abnormal . [place] 245222-10-14 08:42:00 Test Item Value Reference Range Interpretation Comments Magnesium Lvl (test code = Magnesium 2.2 1.8-2.4 Lvl) [address]10-14 08:42:00 Test Item Value Reference Range Interpretation Comments Glucose Lvl (test code = Glucose Lvl) 89 70-99 [place] [address]-10-14 08:42:00 Test Item Value Reference Range Interpretation Comments BUN (test code = BUN) 8 7-22 [place] [address]-10-14 08:42:00 Test Item Value Reference Range Interpretation Comments Creatinine Lvl (test code = Creatinine 0.59 0.50-1.40 Lvl) [place] [address]-10-14 08:42:00 Test Item Value Reference Range Interpretation Comments Sodium Lvl (test code = Sodium Lvl) 142 135-145 [place] 245222-10-14 08:42:00 Test Item Value Reference Range Interpretation Comments Potassium Lvl (test code = Potassium 3.6 3.5-5.1 Lvl) [place] 245222-10-14 08:42:00 Test Item Value Reference Range Interpretation Comments Chloride Lvl (test code = Chloride Lvl) 103 95-109 [place] [address]-10-14 08:42:00 Test Item Value Reference Range Interpretation Comments CO2 (test code = CO2) 30 24-32 [place] [address]-10-14 08:42:00 Test Item Value Reference Range Interpretation Comments Calcium Lvl (test code = Calcium Lvl) 9.8 8.5-10.5 [place] [address]-10-14 08:42:00 Test Item Value Reference Range Interpretation Comments Total Protein (test code = Total 7.0 6.4-8.4 Protein) [facility] [id number] 08:42:00 Test Item Value Reference Range Interpretation Comments Albumin Lvl (test code = Albumin Lvl) 2.8 3.5-5.0 [facility] [id number] 08:42:00 Test Item Value Reference Range Interpretation Comments ALT (test code = ALT) 20 See_Comment [Auto mated message] The system which ge nerated this result transmit fabiano reference range : <=65. The reference range was not used to interpr et this result as aleks l/abnormal. [facility] [id number] 08:42:00 Test Item Value Reference Range Interpretation Comments AST (test code = AST) 11 See_Comment [Auto mated message] The system which ge nerated this result transmit fabiano reference range : <=37. The reference range was not used to interpr et this result as aleks l/abnormal. [facility] [id number] 08:42:00 Test Item Value Reference Range Interpretation Comments Alk Phos (test code = Alk Phos) 108 39-136 [facility] [id number] 08:42:00 Test Item Value Reference Range Interpretation Comments Bili Total (test code = Bili Total) 0.4 0.2-1.3 [facility] [id number] 08:42:00 Test Item Value Reference Range Interpretation Comments AGAP (test code = AGAP) 12.6 10.0-20.0 [facility] [id number] 08:42:00 Test Item Value Reference Range Interpretation Comments B/C Ratio (test code = B/C Ratio) 14 1 6-25 [facility] [id number] 08:42:00 Test Item Value Reference Range Interpretation Comments Globulin (test code = Globulin) 4.2 2.7-4.2 [facility] [id number] 08:42:00 Test Item Value Reference Range Interpretation Comments A/G Ratio (test code = A/G Ratio) 0.7 1 0.7-1.6 [facility] [id number] 08:42:00 Test Item Value Reference Range Interpretation Comments eGFR (test code = eGFR) 108 [facility] [id number] 08:42:00 Test Item Value Reference Range Interpretation Comments Phosphorus (test code = Phosphorus) 5.4 2.5-4.5 [facility]46[facility] 08:42:00 Test Item Value Reference Range Interpretation Comments WBC (test code = WBC) 12.5 3.7-10.4 [id number] 08:42:00 Test Item Value Reference Range Interpretation Comments RBC (test code = RBC) 3.94 4.20-5.40 [facility] DistrictVfbwwktBKIYSAJRME5064-39-99 08:42:00 Test Item Value Reference Range Interpretation Comments Hgb (test code = Hgb) 10.6 12.0-16.0 [place] 495052-10-14 08:42:00 Test Item Value Reference Range Interpretation Comments Hct (test code = Hct) 31.6 36.0-48.0 [facility] DistrictKwdahtbSAUFFNLZFY2884-91-40 08:42:00 Test Item Value Reference Range Interpretation Comments MCV (test code = MCV) 80.2 80.0-98.0 [facility] DistrictIejdwpfXPRXLERIJA3189-19-02 08:42:00 Test Item Value Reference Range Interpretation Comments MCH (test code = MCH) 26.9 pg 27.0-31.0 [facility] DistrictUykisatKQSPMTQXLX2477-35-80 08:42:00 Test Item Value Reference Range Interpretation Comments MCHC (test code = MCHC) 33.6 32.0-36.0 [facility] DistrictUivfrloZWIRAMLLEM1074-02-52 08:42:00 Test Item Value Reference Range Interpretation Comments RDW (test code = RDW) 16.4 11.5-14.5 [facility] DistrictFnltexxHHZFUJYRUR3027-07-20 08:42:00 Test Item Value Reference Range Interpretation Comments Platelet (test code = Platelet) 339 133-450 [facility] DistrictRgbmwwxFSTDTDWIJW9772-30-36 08:42:00 Test Item Value Reference Range Interpretation Comments MPV (test code = MPV) 8.0 7.4-10.4 [place] 495052-10-14 08:42:00 Test Item Value Reference Range Interpretation Comments Segs (test code = Segs) 77.8 45.0-75.0 [place] 495052-10-14 08:42:00 Test Item Value Reference Range Interpretation Comments Lymphocytes (test code = Lymphocytes) 13.5 20.0-40.0 [place] [address]-10-14 08:42:00 Test Item Value Reference Range Interpretation Comments Monocytes (test code = Monocytes) 6.5 2.0-12.0 [place] [address]-10-14 08:42:00 Test Item Value Reference Range Interpretation Comments Eosinophils (test code = 1.6 See_Comment [A utomated message] The Eosinophils) system which ge nerated this result tra nsmitted reference range : <=4.0. The reference r quynh was not used to int erpret this result as normal/abnormal . [place] [address]-10-14 08:42:00 Test Item Value Reference Range Interpretation Comments Basophils (test code = 0.6 See_Comment [Aut omated message] The Basophils) system which ge nerated this result tra nsmitted reference range : <=1.0. The reference r quynh was not used to int erpret this result as normal/abnormal . [place] [address]-10-14 08:42:00 Test Item Value Reference Range Interpretation Comments Neutrophils # (test code = Neutrophils 9.8 1.5-8.1 #) [place] [address]-10-14 08:42:00 Test Item Value Reference Range Interpretation Comments Lymphocytes # (test code = Lymphocytes 1.7 1.0-5.5 #) [place] [address]-10-14 08:42:00 Test Item Value Reference Range Interpretation Comments Monocytes # (test code 0.8 See_Comment [Aut omated message] The = Monocytes #) system which generated this result tra nsmitted reference range : <=0.8. The reference r quynh was not used to int erpret this result as normal/abnormal . [place] [address]-10-14 08:42:00 Test Item Value Reference Range Interpretation Comments Eosinophils # (test code 0.2 See_Comment [A utomated message] The = Eosinophils #) system whic h generated this result tra nsmitted reference range : <=0.5. The reference r quynh was not used to int erpret this result as normal/abnormal . [place] [address]-10-14 08:42:00 Test Item Value Reference Range Interpretation Comments Basophils # (test code 0.1 See_Comment [Aut omated message] The = Basophils #) system which generated this result tra nsmitted reference range : <=0.2. The reference r quynh was not used to int erpret this result as normal/abnormal . [place] 245222-10-14 08:42:00 Test Item Value Reference Range Interpretation Comments Magnesium Lvl (test code = Magnesium 2.2 1.8-2.4 Lvl) [place] [address]-10-14 08:42:00 Test Item Value Reference Range Interpretation Comments Glucose Lvl (test code = Glucose Lvl) 89 70-99 [place] 245222-10-14 08:42:00 Test Item Value Reference Range Interpretation Comments BUN (test code = BUN) 8 7-22 [place] 245222-10-14 08:42:00 Test Item Value Reference Range Interpretation Comments Creatinine Lvl (test code = Creatinine 0.59 0.50-1.40 Lvl) [place] 245222-10-14 08:42:00 Test Item Value Reference Range Interpretation Comments Sodium Lvl (test code = Sodium Lvl) 142 135-145 [place] 245222-10-14 08:42:00 Test Item Value Reference Range Interpretation Comments Potassium Lvl (test code = Potassium 3.6 3.5-5.1 Lvl) [place] 245222-10-14 08:42:00 Test Item Value Reference Range Interpretation Comments Chloride Lvl (test code = Chloride Lvl) 103 95-109 [place] 245222-10-14 08:42:00 Test Item Value Reference Range Interpretation Comments CO2 (test code = CO2) 30 24-32 [place] 245222-10-14 08:42:00 Test Item Value Reference Range Interpretation Comments Calcium Lvl (test code = Calcium Lvl) 9.8 8.5-10.5 [place] 245222-10-14 08:42:00 Test Item Value Reference Range Interpretation Comments Total Protein (test code = Total 7.0 6.4-8.4 Protein) [place] 245222-10-14 08:42:00 Test Item Value Reference Range Interpretation Comments Albumin Lvl (test code = Albumin Lvl) 2.8 3.5-5.0 [place] 245222-10-14 08:42:00 Test Item Value Reference Range Interpretation Comments ALT (test code = ALT) 20 See_Comment [Auto mated message] The system which ge nerated this result transmit fabiano reference range : <=65. The reference range was not used to interpr et this result as aleks l/abnormal. [facility] [id number] 08:42:00 Test Item Value Reference Range Interpretation Comments AST (test code = AST) 11 See_Comment [Auto mated message] The system which ge nerated this result transmit fabiano reference range : <=37. The reference range was not used to interpr et this result as aleks l/abnormal. [facility] [id number] 08:42:00 Test Item Value Reference Range Interpretation Comments Alk Phos (test code = Alk Phos) 108 39-136 [facility] [id number] 08:42:00 Test Item Value Reference Range Interpretation Comments Bili Total (test code = Bili Total) 0.4 0.2-1.3 [facility] [id number] 08:42:00 Test Item Value Reference Range Interpretation Comments AGAP (test code = AGAP) 12.6 10.0-20.0 [facility] [id number] 08:42:00 Test Item Value Reference Range Interpretation Comments B/C Ratio (test code = B/C Ratio) 14 1 6-25 [facility] [id number] 08:42:00 Test Item Value Reference Range Interpretation Comments Globulin (test code = Globulin) 4.2 2.7-4.2 [facility] [id number] 08:42:00 Test Item Value Reference Range Interpretation Comments A/G Ratio (test code = A/G Ratio) 0.7 1 0.7-1.6 [facility] [id number] 08:42:00 Test Item Value Reference Range Interpretation Comments eGFR (test code = eGFR) 108 [facility] [id number] 08:42:00 Test Item Value Reference Range Interpretation Comments Phosphorus (test code = Phosphorus) 5.4 2.5-4.5 [facility] WwxhoppCPVBGXPZVY8798-30-32 08:42:00 Test Item Value Reference Range Interpretation Comments WBC (test code = WBC) 12.5 3.7-10.4 [facility] AeclyprEESBZHCHQB8904-29-53 08:42:00 Test Item Value Reference Range Interpretation Comments RBC (test code = RBC) 3.94 4.20-5.40 [place] 495052-10-14 08:42:00 Test Item Value Reference Range Interpretation Comments Hgb (test code = Hgb) 10.6 12.0-16.0 [place] 495052-10-14 08:42:00 Test Item Value Reference Range Interpretation Comments Hct (test code = Hct) 31.6 36.0-48.0 [facility] DistrictSxkltrwXKPHYTFNKU2534-27-41 08:42:00 Test Item Value Reference Range Interpretation Comments MCV (test code = MCV) 80.2 80.0-98.0 [place] 495052-10-14 08:42:00 Test Item Value Reference Range Interpretation Comments MCH (test code = MCH) 26.9 pg 27.0-31.0 [place] 495052-10-14 08:42:00 Test Item Value Reference Range Interpretation Comments MCHC (test code = MCHC) 33.6 32.0-36.0 [facility] DistrictIjighjlDGYDXSXFTL9144-72-61 08:42:00 Test Item Value Reference Range Interpretation Comments RDW (test code = RDW) 16.4 11.5-14.5 [facility] DistrictVtdlqpkOIDDAJVCLL0834-76-12 08:42:00 Test Item Value Reference Range Interpretation Comments Platelet (test code = Platelet) 339 133-450 [facility] DistrictFtlmlvwTWTYKCMYQZ4805-90-07 08:42:00 Test Item Value Reference Range Interpretation Comments MPV (test code = MPV) 8.0 7.4-10.4 [place] [address]-10-14 08:42:00 Test Item Value Reference Range Interpretation Comments Segs (test code = Segs) 77.8 45.0-75.0 [place] [address]-10-14 08:42:00 Test Item Value Reference Range Interpretation Comments Lymphocytes (test code = Lymphocytes) 13.5 20.0-40.0 [place] 495052-10-14 08:42:00 Test Item Value Reference Range Interpretation Comments Monocytes (test code = Monocytes) 6.5 2.0-12.0 [place] 495052-10-14 08:42:00 Test Item Value Reference Range Interpretation Comments Eosinophils (test code = 1.6 See_Comment [A utomated message] The Eosinophils) system which ge nerated this result tra nsmitted reference range : <=4.0. The reference r quynh was not used to int erpret this result as normal/abnormal . [place] [address]-10-14 08:42:00 Test Item Value Reference Range Interpretation Comments Basophils (test code = 0.6 See_Comment [Aut omated message] The Basophils) system which ge nerated this result tra nsmitted reference range : <=1.0. The reference r quynh was not used to int erpret this result as normal/abnormal . [place] [address]-10-14 08:42:00 Test Item Value Reference Range Interpretation Comments Neutrophils # (test code = Neutrophils 9.8 1.5-8.1 #) [address]10-14 08:42:00 Test Item Value Reference Range Interpretation Comments Lymphocytes # (test code = Lymphocytes 1.7 1.0-5.5 #) [address]10-14 08:42:00 Test Item Value Reference Range Interpretation Comments Monocytes # (test code 0.8 See_Comment [Aut omated message] The = Monocytes #) system which generated this result tra nsmitted reference range : <=0.8. The reference r quynh was not used to int erpret this result as normal/abnormal . [place] [address]-10-14 08:42:00 Test Item Value Reference Range Interpretation Comments Eosinophils # (test code 0.2 See_Comment [A utomated message] The = Eosinophils #) system whic h generated this result tra nsmitted reference range : <=0.5. The reference r quynh was not used to int erpret this result as normal/abnormal . [place] [address]-10-14 08:42:00 Test Item Value Reference Range Interpretation Comments Basophils # (test code 0.1 See_Comment [Aut omated message] The = Basophils #) system which generated this result tra nsmitted reference range : <=0.2. The reference r quynh was not used to int erpret this result as normal/abnormal . [facility]2022-10-14 08:42:00 Test Item Value Reference Range Interpretation Comments Magnesium Lvl (test code = Magnesium 2.2 1.8-2.4 Lvl) [place] 245222-10-14 08:42:00 Test Item Value Reference Range Interpretation Comments Glucose Lvl (test code = Glucose Lvl) 89 70-99 [place] 245222-10-14 08:42:00 Test Item Value Reference Range Interpretation Comments BUN (test code = BUN) 8 7-22 [place] 245222-10-14 08:42:00 Test Item Value Reference Range Interpretation Comments Creatinine Lvl (test code = Creatinine 0.59 0.50-1.40 Lvl) [place] [address]-10-14 08:42:00 Test Item Value Reference Range Interpretation Comments Sodium Lvl (test code = Sodium Lvl) 142 135-145 [place] 245222-10-14 08:42:00 Test Item Value Reference Range Interpretation Comments Potassium Lvl (test code = Potassium 3.6 3.5-5.1 Lvl) [place] 245222-10-14 08:42:00 Test Item Value Reference Range Interpretation Comments Chloride Lvl (test code = Chloride Lvl) 103 95-109 [place] 245222-10-14 08:42:00 Test Item Value Reference Range Interpretation Comments CO2 (test code = CO2) 30 24-32 [place] 245222-10-14 08:42:00 Test Item Value Reference Range Interpretation Comments Calcium Lvl (test code = Calcium Lvl) 9.8 8.5-10.5 [place] 245222-10-14 08:42:00 Test Item Value Reference Range Interpretation Comments Total Protein (test code = Total 7.0 6.4-8.4 Protein) [place] [address]-10-14 08:42:00 Test Item Value Reference Range Interpretation Comments Albumin Lvl (test code = Albumin Lvl) 2.8 3.5-5.0 [place] 245222-10-14 08:42:00 Test Item Value Reference Range Interpretation Comments ALT (test code = ALT) 20 See_Comment [Auto mated message] The system which ge nerated this result transmit fabiano reference range : <=65. The reference range was not used to interpr et this result as aleks l/abnormal. [place] [address]-10-14 08:42:00 Test Item Value Reference Range Interpretation Comments AST (test code = AST) 11 See_Comment [Auto mated message] The system which ge nerated this result transmit fabiano reference range : <=37. The reference range was not used to interpr et this result as aleks l/abnormal. [facility] [employer] [id number] 08:42:00 Test Item Value Reference Range Interpretation Comments Alk Phos (test code = Alk Phos) 108 39-136 [facility] [id number] 08:42:00 Test Item Value Reference Range Interpretation Comments Bili Total (test code = Bili Total) 0.4 0.2-1.3 [facility] [id number] 08:42:00 Test Item Value Reference Range Interpretation Comments AGAP (test code = AGAP) 12.6 10.0-20.0 [facility] [id number] 08:42:00 Test Item Value Reference Range Interpretation Comments B/C Ratio (test code = B/C Ratio) 14 1 6-25 [facility] [id number] 08:42:00 Test Item Value Reference Range Interpretation Comments Globulin (test code = Globulin) 4.2 2.7-4.2 [facility] [id number] 08:42:00 Test Item Value Reference Range Interpretation Comments A/G Ratio (test code = A/G Ratio) 0.7 1 0.7-1.6 [facility] [id number] 08:42:00 Test Item Value Reference Range Interpretation Comments eGFR (test code = eGFR) 108 [facility] [id number] 08:42:00 Test Item Value Reference Range Interpretation Comments Phosphorus (test code = Phosphorus) 5.4 2.5-4.5 [id number] 08:42:00 Test Item Value Reference Range Interpretation Comments WBC (test code = WBC) 12.5 3.7-10.4 [place] [id number] 08:42:00 Test Item Value Reference Range Interpretation Comments RBC (test code = RBC) 3.94 4.20-5.40 [id number] 08:42:00 Test Item Value Reference Range Interpretation Comments Hgb (test code = Hgb) 10.6 12.0-16.0 [facility]XnlxmphEBVFYMMBRQ7532-03-31 08:42:00 Test Item Value Reference Range Interpretation Comments Hct (test code = Hct) 31.6 36.0-48.0 [facility] DistrictCcxurdoCFEDCEOYCB8493-99-80 08:42:00 Test Item Value Reference Range Interpretation Comments MCV (test code = MCV) 80.2 80.0-98.0 [facility] DistrictHogqsnvGBBGHMJDTB3394-98-74 08:42:00 Test Item Value Reference Range Interpretation Comments MCH (test code = MCH) 26.9 pg 27.0-31.0 [facility] DistrictVvjsznrZRTUMGHMPG0641-12-25 08:42:00 Test Item Value Reference Range Interpretation Comments MCHC (test code = MCHC) 33.6 32.0-36.0 [facility] DistrictMtnnyqeDIRPTGWYOE5930-67-09 08:42:00 Test Item Value Reference Range Interpretation Comments RDW (test code = RDW) 16.4 11.5-14.5 [facility] DistrictIpwprgxPVLAJZRRDC1628-75-89 08:42:00 Test Item Value Reference Range Interpretation Comments Platelet (test code = Platelet) 339 133-450 [facility] DistrictZkxqsmzZMXBNXQYYQ2820-20-98 08:42:00 Test Item Value Reference Range Interpretation Comments MPV (test code = MPV) 8.0 7.4-10.4 [facility] DistrictWjgkfirAFXHEAGSRU9847-69-63 08:42:00 Test Item Value Reference Range Interpretation Comments Segs (test code = Segs) 77.8 45.0-75.0 [facility] DistrictTdjofsuOOUGSBYUHY1043-31-44 08:42:00 Test Item Value Reference Range Interpretation Comments Lymphocytes (test code = Lymphocytes) 13.5 20.0-40.0 [place] [id number] 08:42:00 Test Item Value Reference Range Interpretation Comments Monocytes (test code = Monocytes) 6.5 2.0-12.0 [place] [id number] 08:42:00 Test Item Value Reference Range Interpretation Comments Eosinophils (test code = 1.6 See_Comment [A utomated message] The Eosinophils) system which ge nerated this result tra nsmitted reference range : <=4.0. The reference r quynh was not used to int erpret this result as normal/abnormal . [place] [id number] 08:42:00 Test Item Value Reference Range Interpretation Comments Basophils (test code = 0.6 See_Comment [Aut omated message] The Basophils) system which ge nerated this result tra nsmitted reference range : <=1.0. The reference r quynh was not used to int erpret this result as normal/abnormal . [facility] DistrictBzkwrcbAUCZPOUCUH6121-08-12 08:42:00 Test Item Value Reference Range Interpretation Comments Neutrophils # (test code = Neutrophils 9.8 1.5-8.1 #) [facility] DistrictSunoexwIYZLJXTRTE0685-12-98 08:42:00 Test Item Value Reference Range Interpretation Comments Lymphocytes # (test code = Lymphocytes 1.7 1.0-5.5 #) [facility] DistrictXgytpayPRQYUVLFPO3927-25-98 08:42:00 Test Item Value Reference Range Interpretation Comments Monocytes # (test code 0.8 See_Comment [Aut omated message] The = Monocytes #) system which generated this result tra nsmitted reference range : <=0.8. The reference r quynh was not used to int erpret this result as normal/abnormal . [facility] DistrictHbixwrtHXMQNOZHTJ3924-65-40 08:42:00 Test Item Value Reference Range Interpretation Comments Eosinophils # (test code 0.2 See_Comment [A utomated message] The = Eosinophils #) system whic h generated this result tra nsmitted reference range : <=0.5. The reference r quynh was not used to int erpret this result as normal/abnormal . [facility] DistrictJsdfnbuCBRQICXGLO1776-72-95 08:42:00 Test Item Value Reference Range Interpretation Comments Basophils # (test code 0.1 See_Comment [Aut omated message] The = Basophils #) system which generated this result tra nsmitted reference range : <=0.2. The reference r quynh was not used to int erpret this result as normal/abnormal . [facility] - [id number] 23:55:00 Test Item Value Reference Range Interpretation Comments Source Strep (test code Urine *NA*(04/11/22 = Source Strep) 6:55 PM) [facility] - [id number] 23:55:00 Test Item Value Reference Range Interpretation Comments Strep pneumoniae Ag Negative (04/11/22 (test code = Strep 6:55 PM) pneumoniae Ag) [facility] [id number] 23:55:00 Test Item Value Reference Range Interpretation Comments UA Color (test code = Yellow *NA*(04/11/22 UA Color) 6:55 PM) [facility] [id number] 23:55:00 Test Item Value Reference Range Interpretation Comments UA Turbidity (test code = Clear (04/11/22 6:55 UA Turbidity) PM) [facility] [id number] 23:55:00 Test Item Value Reference Range Interpretation Comments UA Spec Grav (test code = UA Spec 1.015 1 Grav) [facility] [id number] 23:55:00 Test Item Value Reference Range Interpretation Comments UA pH (test code = UA pH) 6.0 1 5.0-8.0 [facility] [id number] 23:55:00 Test Item Value Reference Range Interpretation Comments UA Protein (test code Negative (04/11/22 6:55 = UA Protein) PM) [facility] [id number] 23:55:00 Test Item Value Reference Range Interpretation Comments UA Glucose (test code Negative (04/11/22 6:55 = UA Glucose) PM) [facility] [id number] 23:55:00 Test Item Value Reference Range Interpretation Comments UA Ketones (test code Negative *NA*(04/11/22 = UA Ketones) 6:55 PM) [facility] [id number] 23:55:00 Test Item Value Reference Range Interpretation Comments UA Bili (test code = Negative *NA*(04/11/22 UA Bili) 6:55 PM) [facility] [id number] 23:55:00 Test Item Value Reference Range Interpretation Comments UA Blood (test code = Negative (04/11/22 6:55 UA Blood) PM) [facility] [id number] 23:55:00 Test Item Value Reference Range Interpretation Comments UA Urobilinogen (test code = UA 0.2 0.1-1.0 Urobilinogen) [facility] [id number] 23:55:00 Test Item Value Reference Range Interpretation Comments UA Nitrite (test code Negative (04/11/22 6:55 = UA Nitrite) PM) [facility] [id number] 23:55:00 Test Item Value Reference Range Interpretation Comments UA Leuk Est (test Negative (04/11/22 6:55 code = UA Leuk Est) PM) [facility] [id number] 23:55:00 Test Item Value Reference Range Interpretation Comments UA Sq Epi (test code = UA Sq Occasional /LPF Epi) [facility] [id number] 23:55:00 Test Item Value Reference Range Interpretation Comments UA WBC (test code = no gt See_Comment [Automa fabiano message] The UA WBC) system which ge nerated this result transmit fabiano reference range : <=5. The reference range was not used to interpr et this result as aleks l/abnormal. [facility] [id number] 23:55:00 Test Item Value Reference Range Interpretation Comments UA RBC (test code = no gt See_Comment [Automa fabiano message] The UA RBC) system which ge nerated this result transmit fabiano reference range : <=2. The reference range was not used to interpr et this result as aleks l/abnormal. [facility] [id number] 23:55:00 Test Item Value Reference Range Interpretation Comments UA Bacteria (test code = UA Occasional /HPF Bacteria) [facility] [id number] 23:55:00 Test Item Value Reference Range Interpretation Comments UA Mucus (test code = UA Mucus) Few /LPF [facility] [id number] 23:55:00 Test Item Value Reference Range Interpretation Comments UA Color (test code = Yellow *NA*(04/11/22 UA Color) 6:55 PM) [facility] [id number] 23:55:00 Test Item Value Reference Range Interpretation Comments UA Turbidity (test code = Clear (04/11/22 6:55 UA Turbidity) PM) [facility] [id number] 23:55:00 Test Item Value Reference Range Interpretation Comments UA Spec Grav (test code = UA Spec 1.015 1 Grav) [facility] [id number] 23:55:00 Test Item Value Reference Range Interpretation Comments UA pH (test code = UA pH) 6.0 1 5.0-8.0 [facility] [id number] 23:55:00 Test Item Value Reference Range Interpretation Comments UA Protein (test code Negative (04/11/22 6:55 = UA Protein) PM) [facility] [id number] 23:55:00 Test Item Value Reference Range Interpretation Comments UA Glucose (test code Negative (04/11/22 6:55 = UA Glucose) PM) [facility] [id number] 23:55:00 Test Item Value Reference Range Interpretation Comments UA Ketones (test code Negative *NA*(04/11/22 = UA Ketones) 6:55 PM) [facility] [id number] 23:55:00 Test Item Value Reference Range Interpretation Comments UA Bili (test code = Negative *NA*(04/11/22 UA Bili) 6:55 PM) [facility] [id number] 23:55:00 Test Item Value Reference Range Interpretation Comments UA Blood (test code = Negative (04/11/22 6:55 UA Blood) PM) [facility] [id number] 23:55:00 Test Item Value Reference Range Interpretation Comments UA Urobilinogen (test code = UA 0.2 0.1-1.0 Urobilinogen) [facility] [id number] 23:55:00 Test Item Value Reference Range Interpretation Comments UA Nitrite (test code Negative (04/11/22 6:55 = UA Nitrite) PM) [facility] [id number] 23:55:00 Test Item Value Reference Range Interpretation Comments UA Leuk Est (test Negative (04/11/22 6:55 code = UA Leuk Est) PM) [facility] [id number] 23:55:00 Test Item Value Reference Range Interpretation Comments UA Sq Epi (test code = UA Sq Occasional /LPF Epi) [facility] [id number] 23:55:00 Test Item Value Reference Range Interpretation Comments UA WBC (test code = no gt See_Comment [Automa fabiano message] The UA WBC) system which ge nerated this result transmit fabiano reference range : <=5. The reference range was not used to interpr et this result as aleks l/abnormal. [facility] [id number] 23:55:00 Test Item Value Reference Range Interpretation Comments UA RBC (test code = no gt See_Comment [Automa fabiano message] The UA RBC) system which ge nerated this result transmit fabiano reference range : <=2. The reference range was not used to interpr et this result as aleks l/abnormal. [facility] [id number] 23:55:00 Test Item Value Reference Range Interpretation Comments UA Bacteria (test code = UA Occasional /HPF Bacteria) [facility] [id number] 23:55:00 Test Item Value Reference Range Interpretation Comments UA Mucus (test code = UA Mucus) Few /LPF [facility] [id number] 23:55:00 Test Item Value Reference Range Interpretation Comments Source Strep (test code Urine *NA*(04/11/22 = Source Strep) 6:55 PM) [facility] [id number] 23:55:00 Test Item Value Reference Range Interpretation Comments Strep pneumoniae Ag Negative (04/11/22 (test code = Strep 6:55 PM) pneumoniae Ag) [facility] [id number] 23:55:00 Test Item Value Reference Range Interpretation Comments UA Color (test code = Yellow *NA*(04/11/22 UA Color) 6:55 PM) [facility] [id number] 23:55:00 Test Item Value Reference Range Interpretation Comments UA Turbidity (test code = Clear (04/11/22 6:55 UA Turbidity) PM) [facility] [id number] 23:55:00 Test Item Value Reference Range Interpretation Comments UA Spec Grav (test code = UA Spec 1.015 1 Grav) [facility] [id number] 23:55:00 Test Item Value Reference Range Interpretation Comments UA pH (test code = UA pH) 6.0 1 5.0-8.0 [facility] [id number] 23:55:00 Test Item Value Reference Range Interpretation Comments UA Protein (test code Negative (04/11/22 6:55 = UA Protein) PM) [facility] [id number] 23:55:00 Test Item Value Reference Range Interpretation Comments UA Glucose (test code Negative (04/11/22 6:55 = UA Glucose) PM) [facility] [id number] 23:55:00 Test Item Value Reference Range Interpretation Comments UA Ketones (test code Negative *NA*(04/11/22 = UA Ketones) 6:55 PM) [facility] [id number] 23:55:00 Test Item Value Reference Range Interpretation Comments UA Bili (test code = Negative *NA*(04/11/22 UA Bili) 6:55 PM) [facility] [id number] 23:55:00 Test Item Value Reference Range Interpretation Comments UA Blood (test code = Negative (04/11/22 6:55 UA Blood) PM) [facility] [id number] 23:55:00 Test Item Value Reference Range Interpretation Comments UA Urobilinogen (test code = UA 0.2 0.1-1.0 Urobilinogen) [facility] [id number] 23:55:00 Test Item Value Reference Range Interpretation Comments UA Nitrite (test code Negative (04/11/22 6:55 = UA Nitrite) PM) [facility] [id number] 23:55:00 Test Item Value Reference Range Interpretation Comments UA Leuk Est (test Negative (04/11/22 6:55 code = UA Leuk Est) PM) [facility] [id number] 23:55:00 Test Item Value Reference Range Interpretation Comments UA Sq Epi (test code = UA Sq Occasional /LPF Epi) [facility] [id number] 23:55:00 Test Item Value Reference Range Interpretation Comments UA WBC (test code = no gt See_Comment [Automa fabiano message] The UA WBC) system which ge nerated this result transmit fabiano reference range : <=5. The reference range was not used to interpr et this result as aleks l/abnormal. [facility] [id number] 23:55:00 Test Item Value Reference Range Interpretation Comments UA RBC (test code = no gt See_Comment [Automa fabiano message] The UA RBC) system which ge nerated this result transmit fabiano reference range : <=2. The reference range was not used to interpr et this result as aleks l/abnormal. [facility] [id number] 23:55:00 Test Item Value Reference Range Interpretation Comments UA Bacteria (test code = UA Occasional /HPF Bacteria) [facility] [id number] 23:55:00 Test Item Value Reference Range Interpretation Comments UA Mucus (test code = UA Mucus) Few /LPF [facility] [id number] 23:55:00 Test Item Value Reference Range Interpretation Comments UA Color (test code = Yellow *NA*(04/11/22 UA Color) 6:55 PM) [facility] [id number] 23:55:00 Test Item Value Reference Range Interpretation Comments UA Turbidity (test code = Clear (04/11/22 6:55 UA Turbidity) PM) [facility] [id number] 23:55:00 Test Item Value Reference Range Interpretation Comments UA Spec Grav (test code = UA Spec 1.015 1 Grav) [facility] [id number] 23:55:00 Test Item Value Reference Range Interpretation Comments UA pH (test code = UA pH) 6.0 1 5.0-8.0 [facility] [id number] 23:55:00 Test Item Value Reference Range Interpretation Comments UA Protein (test code Negative (04/11/22 6:55 = UA Protein) PM) [facility] [id number] 23:55:00 Test Item Value Reference Range Interpretation Comments UA Glucose (test code Negative (04/11/22 6:55 = UA Glucose) PM) [facility] [id number] 23:55:00 Test Item Value Reference Range Interpretation Comments UA Ketones (test code Negative *NA*(04/11/22 = UA Ketones) 6:55 PM) [facility] [id number] 23:55:00 Test Item Value Reference Range Interpretation Comments UA Bili (test code = Negative *NA*(04/11/22 UA Bili) 6:55 PM) [facility] [id number] 23:55:00 Test Item Value Reference Range Interpretation Comments UA Blood (test code = Negative (04/11/22 6:55 UA Blood) PM) [facility] [id number] 23:55:00 Test Item Value Reference Range Interpretation Comments UA Urobilinogen (test code = UA 0.2 0.1-1.0 Urobilinogen) [facility] [id number] 23:55:00 Test Item Value Reference Range Interpretation Comments UA Nitrite (test code Negative (04/11/22 6:55 = UA Nitrite) PM) [facility] [id number] 23:55:00 Test Item Value Reference Range Interpretation Comments UA Leuk Est (test Negative (04/11/22 6:55 code = UA Leuk Est) PM) [facility] [id number] 23:55:00 Test Item Value Reference Range Interpretation Comments UA Sq Epi (test code = UA Sq Occasional /LPF Epi) [facility] [id number] 23:55:00 Test Item Value Reference Range Interpretation Comments UA WBC (test code = no gt See_Comment [Automa fabiano message] The UA WBC) system which ge nerated this result transmit fabiano reference range : <=5. The reference range was not used to interpr et this result as aleks l/abnormal. [facility] [id number] 23:55:00 Test Item Value Reference Range Interpretation Comments UA RBC (test code = no gt See_Comment [Automa fabiano message] The UA RBC) system which ge nerated this result transmit fabiano reference range : <=2. The reference range was not used to interpr et this result as aleks l/abnormal. [facility] [id number] 23:55:00 Test Item Value Reference Range Interpretation Comments UA Bacteria (test code = UA Occasional /HPF Bacteria) [facility] [id number] 23:55:00 Test Item Value Reference Range Interpretation Comments UA Mucus (test code = UA Mucus) Few /LPF [facility] [id number] 23:55:00 Test Item Value Reference Range Interpretation Comments Source Strep (test code Urine *NA*(04/11/22 = Source Strep) 6:55 PM) [facility] [id number] 23:55:00 Test Item Value Reference Range Interpretation Comments Strep pneumoniae Ag Negative (04/11/22 (test code = Strep 6:55 PM) pneumoniae Ag) [facility] [id number] 23:55:00 Test Item Value Reference Range Interpretation Comments UA Color (test code = Yellow *NA*(04/11/22 UA Color) 6:55 PM) [facility] [id number] 23:55:00 Test Item Value Reference Range Interpretation Comments UA Turbidity (test code = Clear (04/11/22 6:55 UA Turbidity) PM) [facility] [id number] 23:55:00 Test Item Value Reference Range Interpretation Comments UA Spec Grav (test code = UA Spec 1.015 1 Grav) [facility] [id number] 23:55:00 Test Item Value Reference Range Interpretation Comments UA pH (test code = UA pH) 6.0 1 5.0-8.0 [facility] [id number] 23:55:00 Test Item Value Reference Range Interpretation Comments UA Protein (test code Negative (04/11/22 6:55 = UA Protein) PM) [facility] [id number] 23:55:00 Test Item Value Reference Range Interpretation Comments UA Glucose (test code Negative (04/11/22 6:55 = UA Glucose) PM) [facility] [id number] 23:55:00 Test Item Value Reference Range Interpretation Comments UA Ketones (test code Negative *NA*(04/11/22 = UA Ketones) 6:55 PM) [facility] [id number] 23:55:00 Test Item Value Reference Range Interpretation Comments UA Bili (test code = Negative *NA*(04/11/22 UA Bili) 6:55 PM) [facility] [id number] 23:55:00 Test Item Value Reference Range Interpretation Comments UA Blood (test code = Negative (04/11/22 6:55 UA Blood) PM) [facility] [id number] 23:55:00 Test Item Value Reference Range Interpretation Comments UA Urobilinogen (test code = UA 0.2 0.1-1.0 Urobilinogen) [facility] [id number] 23:55:00 Test Item Value Reference Range Interpretation Comments UA Nitrite (test code Negative (04/11/22 6:55 = UA Nitrite) PM) [facility] [id number] 23:55:00 Test Item Value Reference Range Interpretation Comments UA Leuk Est (test Negative (04/11/22 6:55 code = UA Leuk Est) PM) [facility] [id number] 23:55:00 Test Item Value Reference Range Interpretation Comments UA Sq Epi (test code = UA Sq Occasional /LPF Epi) [facility] [id number] 23:55:00 Test Item Value Reference Range Interpretation Comments UA WBC (test code = no gt See_Comment [Automa fabiano message] The UA WBC) system which ge nerated this result transmit fabiano reference range : <=5. The reference range was not used to interpr et this result as aleks l/abnormal. [facility] [id number] 23:55:00 Test Item Value Reference Range Interpretation Comments UA RBC (test code = no gt See_Comment [Automa fabiano message] The UA RBC) system which ge nerated this result transmit fabiano reference range : <=2. The reference range was not used to interpr et this result as aleks l/abnormal. [facility] [id number] 23:55:00 Test Item Value Reference Range Interpretation Comments UA Bacteria (test code = UA Occasional /HPF Bacteria) [facility] [id number] 23:55:00 Test Item Value Reference Range Interpretation Comments UA Mucus (test code = UA Mucus) Few /LPF [facility] [id number] 23:55:00 Test Item Value Reference Range Interpretation Comments UA Color (test code = Yellow *NA*(04/11/22 UA Color) 6:55 PM) [facility] [id number] 23:55:00 Test Item Value Reference Range Interpretation Comments UA Turbidity (test code = Clear (04/11/22 6:55 UA Turbidity) PM) [facility] [id number] 23:55:00 Test Item Value Reference Range Interpretation Comments UA Spec Grav (test code = UA Spec 1.015 1 Grav) [facility] [id number] 23:55:00 Test Item Value Reference Range Interpretation Comments UA pH (test code = UA pH) 6.0 1 5.0-8.0 [facility] [id number] 23:55:00 Test Item Value Reference Range Interpretation Comments UA Protein (test code Negative (04/11/22 6:55 = UA Protein) PM) [facility] [id number] 23:55:00 Test Item Value Reference Range Interpretation Comments UA Glucose (test code Negative (04/11/22 6:55 = UA Glucose) PM) [facility] [id number] 23:55:00 Test Item Value Reference Range Interpretation Comments UA Ketones (test code Negative *NA*(04/11/22 = UA Ketones) 6:55 PM) [facility] [id number] 23:55:00 Test Item Value Reference Range Interpretation Comments UA Bili (test code = Negative *NA*(04/11/22 UA Bili) 6:55 PM) [facility] [id number] 23:55:00 Test Item Value Reference Range Interpretation Comments UA Blood (test code = Negative (04/11/22 6:55 UA Blood) PM) [facility] [id number] 23:55:00 Test Item Value Reference Range Interpretation Comments UA Urobilinogen (test code = UA 0.2 0.1-1.0 Urobilinogen) [facility] [id number] 23:55:00 Test Item Value Reference Range Interpretation Comments UA Nitrite (test code Negative (04/11/22 6:55 = UA Nitrite) PM) [facility] [id number] 23:55:00 Test Item Value Reference Range Interpretation Comments UA Leuk Est (test Negative (04/11/22 6:55 code = UA Leuk Est) PM) [facility] [id number] 23:55:00 Test Item Value Reference Range Interpretation Comments UA Sq Epi (test code = UA Sq Occasional /LPF Epi) [facility] [id number] 23:55:00 Test Item Value Reference Range Interpretation Comments UA WBC (test code = no gt See_Comment [Automa fabiano message] The UA WBC) system which ge nerated this result transmit fabiano reference range : <=5. The reference range was not used to interpr et this result as aleks l/abnormal. [facility] [id number] 23:55:00 Test Item Value Reference Range Interpretation Comments UA RBC (test code = no gt See_Comment [Automa fabiano message] The UA RBC) system which ge nerated this result transmit fabiano reference range : <=2. The reference range was not used to interpr et this result as aleks l/abnormal. [facility] [id number] 23:55:00 Test Item Value Reference Range Interpretation Comments UA Bacteria (test code = UA Occasional /HPF Bacteria) [facility] [id number] 23:55:00 Test Item Value Reference Range Interpretation Comments UA Mucus (test code = UA Mucus) Few /LPF [facility] [id number] 23:55:00 Test Item Value Reference Range Interpretation Comments Source Strep (test code Urine *NA*(04/11/22 = Source Strep) 6:55 PM) [facility] - [id number] 23:55:00 Test Item Value Reference Range Interpretation Comments Strep pneumoniae Ag Negative (04/11/22 (test code = Strep 6:55 PM) pneumoniae Ag) [facility] [id number] 23:55:00 Test Item Value Reference Range Interpretation Comments UA Color (test code = Yellow *NA*(04/11/22 UA Color) 6:55 PM) [facility] [id number] 23:55:00 Test Item Value Reference Range Interpretation Comments UA Turbidity (test code = Clear (04/11/22 6:55 UA Turbidity) PM) [facility] [id number] 23:55:00 Test Item Value Reference Range Interpretation Comments UA Spec Grav (test code = UA Spec 1.015 1 Grav) [facility] [id number] 23:55:00 Test Item Value Reference Range Interpretation Comments UA pH (test code = UA pH) 6.0 1 5.0-8.0 [facility] AND [id number] 23:55:00 Test Item Value Reference Range Interpretation Comments UA Protein (test code Negative (04/11/22 6:55 = UA Protein) PM) [facility] [id number] 23:55:00 Test Item Value Reference Range Interpretation Comments UA Glucose (test code Negative (04/11/22 6:55 = UA Glucose) PM) [facility] [id number] 23:55:00 Test Item Value Reference Range Interpretation Comments UA Ketones (test code Negative *NA*(04/11/22 = UA Ketones) 6:55 PM) [facility] [id number] 23:55:00 Test Item Value Reference Range Interpretation Comments UA Bili (test code = Negative *NA*(04/11/22 UA Bili) 6:55 PM) [facility] [id number] 23:55:00 Test Item Value Reference Range Interpretation Comments UA Blood (test code = Negative (04/11/22 6:55 UA Blood) PM) [facility] AND [id number] 23:55:00 Test Item Value Reference Range Interpretation Comments UA Urobilinogen (test code = UA 0.2 0.1-1.0 Urobilinogen) [facility] AND [id number] 23:55:00 Test Item Value Reference Range Interpretation Comments UA Nitrite (test code Negative (04/11/22 6:55 = UA Nitrite) PM) [facility] [id number] 23:55:00 Test Item Value Reference Range Interpretation Comments UA Leuk Est (test Negative (04/11/22 6:55 code = UA Leuk Est) PM) [facility] AND [id number] 23:55:00 Test Item Value Reference Range Interpretation Comments UA Sq Epi (test code = UA Sq Occasional /LPF Epi) [facility] AND [id number] 23:55:00 Test Item Value Reference Range Interpretation Comments UA WBC (test code = no gt See_Comment [Automa fabiano message] The UA WBC) system which ge nerated this result transmit fabiano reference range : <=5. The reference range was not used to interpr et this result as aleks l/abnormal. [facility] [id number] 23:55:00 Test Item Value Reference Range Interpretation Comments UA RBC (test code = no gt See_Comment [Automa fabiano message] The UA RBC) system which ge nerated this result transmit fabiano reference range : <=2. The reference range was not used to interpr et this result as aleks l/abnormal. [facility] [id number] 23:55:00 Test Item Value Reference Range Interpretation Comments UA Bacteria (test code = UA Occasional /HPF Bacteria) [facility] [id number] 23:55:00 Test Item Value Reference Range Interpretation Comments UA Mucus (test code = UA Mucus) Few /LPF [facility] [id number] 23:55:00 Test Item Value Reference Range Interpretation Comments UA Color (test code = Yellow *NA*(04/11/22 UA Color) 6:55 PM) [facility] AND [id number] 23:55:00 Test Item Value Reference Range Interpretation Comments UA Turbidity (test code = Clear (04/11/22 6:55 UA Turbidity) PM) [facility] [id number] 23:55:00 Test Item Value Reference Range Interpretation Comments UA Spec Grav (test code = UA Spec 1.015 1 Grav) [facility] AND [id number] 23:55:00 Test Item Value Reference Range Interpretation Comments UA pH (test code = UA pH) 6.0 1 5.0-8.0 [facility] [id number] 23:55:00 Test Item Value Reference Range Interpretation Comments UA Protein (test code Negative (04/11/22 6:55 = UA Protein) PM) [facility] [id number] 23:55:00 Test Item Value Reference Range Interpretation Comments UA Glucose (test code Negative (04/11/22 6:55 = UA Glucose) PM) [facility] AND [id number] 23:55:00 Test Item Value Reference Range Interpretation Comments UA Ketones (test code Negative *NA*(04/11/22 = UA Ketones) 6:55 PM) [facility] [id number] 23:55:00 Test Item Value Reference Range Interpretation Comments UA Bili (test code = Negative *NA*(04/11/22 UA Bili) 6:55 PM) [facility] [id number] 23:55:00 Test Item Value Reference Range Interpretation Comments UA Blood (test code = Negative (04/11/22 6:55 UA Blood) PM) [facility] [id number] 23:55:00 Test Item Value Reference Range Interpretation Comments UA Urobilinogen (test code = UA 0.2 0.1-1.0 Urobilinogen) [facility] [id number] 23:55:00 Test Item Value Reference Range Interpretation Comments UA Nitrite (test code Negative (04/11/22 6:55 = UA Nitrite) PM) [facility] [id number] 23:55:00 Test Item Value Reference Range Interpretation Comments UA Leuk Est (test Negative (04/11/22 6:55 code = UA Leuk Est) PM) [facility] [id number] 23:55:00 Test Item Value Reference Range Interpretation Comments UA Sq Epi (test code = UA Sq Occasional /LPF Epi) [facility] [id number] 23:55:00 Test Item Value Reference Range Interpretation Comments UA WBC (test code = no gt See_Comment [Automa fabiano message] The UA WBC) system which ge nerated this result transmit fabiano reference range : <=5. The reference range was not used to interpr et this result as aleks l/abnormal. [facility] [id number] 23:55:00 Test Item Value Reference Range Interpretation Comments UA RBC (test code = no gt See_Comment [Automa fabiano message] The UA RBC) system which ge nerated this result transmit fabiano reference range : <=2. The reference range was not used to interpr et this result as aleks l/abnormal. [facility] [id number] 23:55:00 Test Item Value Reference Range Interpretation Comments UA Bacteria (test code = UA Occasional /HPF Bacteria) [facility] [id number] 23:55:00 Test Item Value Reference Range Interpretation Comments UA Mucus (test code = UA Mucus) Few /LPF [facility] [id number] 23:55:00 Test Item Value Reference Range Interpretation Comments Source Strep (test code Urine *NA*(04/11/22 = Source Strep) 6:55 PM) [facility] [id number] 23:55:00 Test Item Value Reference Range Interpretation Comments Strep pneumoniae Ag Negative (04/11/22 (test code = Strep 6:55 PM) pneumoniae Ag) [facility] [id number] 23:55:00 Test Item Value Reference Range Interpretation Comments UA Color (test code = Yellow *NA*(04/11/22 UA Color) 6:55 PM) [facility] [id number] 23:55:00 Test Item Value Reference Range Interpretation Comments UA Turbidity (test code = Clear (04/11/22 6:55 UA Turbidity) PM) [facility] [id number] 23:55:00 Test Item Value Reference Range Interpretation Comments UA Spec Grav (test code = UA Spec 1.015 1 Grav) [facility] [id number] 23:55:00 Test Item Value Reference Range Interpretation Comments UA pH (test code = UA pH) 6.0 1 5.0-8.0 [facility] [id number] 23:55:00 Test Item Value Reference Range Interpretation Comments UA Protein (test code Negative (04/11/22 6:55 = UA Protein) PM) [facility] [id number] 23:55:00 Test Item Value Reference Range Interpretation Comments UA Glucose (test code Negative (04/11/22 6:55 = UA Glucose) PM) [facility] [id number] 23:55:00 Test Item Value Reference Range Interpretation Comments UA Ketones (test code Negative *NA*(04/11/22 = UA Ketones) 6:55 PM) [facility] [id number] 23:55:00 Test Item Value Reference Range Interpretation Comments UA Bili (test code = Negative *NA*(04/11/22 UA Bili) 6:55 PM) [facility] [id number] 23:55:00 Test Item Value Reference Range Interpretation Comments UA Blood (test code = Negative (04/11/22 6:55 UA Blood) PM) [facility] [id number] 23:55:00 Test Item Value Reference Range Interpretation Comments UA Urobilinogen (test code = UA 0.2 0.1-1.0 Urobilinogen) [facility] [id number] 23:55:00 Test Item Value Reference Range Interpretation Comments UA Nitrite (test code Negative (04/11/22 6:55 = UA Nitrite) PM) [facility] [id number] 23:55:00 Test Item Value Reference Range Interpretation Comments UA Leuk Est (test Negative (04/11/22 6:55 code = UA Leuk Est) PM) [facility] [id number] 23:55:00 Test Item Value Reference Range Interpretation Comments UA Sq Epi (test code = UA Sq Occasional /LPF Epi) [facility] [id number] 23:55:00 Test Item Value Reference Range Interpretation Comments UA WBC (test code = no gt See_Comment [Automa fabiano message] The UA WBC) system which ge nerated this result transmit fabiano reference range : <=5. The reference range was not used to interpr et this result as aleks l/abnormal. [facility] [id number] 23:55:00 Test Item Value Reference Range Interpretation Comments UA RBC (test code = no gt See_Comment [Automa fabiano message] The UA RBC) system which ge nerated this result transmit fabiano reference range : <=2. The reference range was not used to interpr et this result as aleks l/abnormal. [facility] [id number] 23:55:00 Test Item Value Reference Range Interpretation Comments UA Bacteria (test code = UA Occasional /HPF Bacteria) [facility] [id number] 23:55:00 Test Item Value Reference Range Interpretation Comments UA Mucus (test code = UA Mucus) Few /LPF [facility] [id number] 23:55:00 Test Item Value Reference Range Interpretation Comments UA Color (test code = Yellow *NA*(04/11/22 UA Color) 6:55 PM) [facility] [id number] 23:55:00 Test Item Value Reference Range Interpretation Comments UA Turbidity (test code = Clear (04/11/22 6:55 UA Turbidity) PM) [facility] [id number] 23:55:00 Test Item Value Reference Range Interpretation Comments UA Spec Grav (test code = UA Spec 1.015 1 Grav) [facility] [id number] 23:55:00 Test Item Value Reference Range Interpretation Comments UA pH (test code = UA pH) 6.0 1 5.0-8.0 [facility] [id number] 23:55:00 Test Item Value Reference Range Interpretation Comments UA Protein (test code Negative (04/11/22 6:55 = UA Protein) PM) [facility] [id number] 23:55:00 Test Item Value Reference Range Interpretation Comments UA Glucose (test code Negative (04/11/22 6:55 = UA Glucose) PM) [facility] [id number] 23:55:00 Test Item Value Reference Range Interpretation Comments UA Ketones (test code Negative *NA*(04/11/22 = UA Ketones) 6:55 PM) [facility] [id number] 23:55:00 Test Item Value Reference Range Interpretation Comments UA Bili (test code = Negative *NA*(04/11/22 UA Bili) 6:55 PM) [facility] [id number] 23:55:00 Test Item Value Reference Range Interpretation Comments UA Blood (test code = Negative (04/11/22 6:55 UA Blood) PM) [facility] [id number] 23:55:00 Test Item Value Reference Range Interpretation Comments UA Urobilinogen (test code = UA 0.2 0.1-1.0 Urobilinogen) [facility] [id number] 23:55:00 Test Item Value Reference Range Interpretation Comments UA Nitrite (test code Negative (04/11/22 6:55 = UA Nitrite) PM) [facility] [id number] 23:55:00 Test Item Value Reference Range Interpretation Comments UA Leuk Est (test Negative (04/11/22 6:55 code = UA Leuk Est) PM) [facility] [id number] 23:55:00 Test Item Value Reference Range Interpretation Comments UA Sq Epi (test code = UA Sq Occasional /LPF Epi) [facility] [id number] 23:55:00 Test Item Value Reference Range Interpretation Comments UA WBC (test code = no gt See_Comment [Automa fabiano message] The UA WBC) system which ge nerated this result transmit fabiano reference range : <=5. The reference range was not used to interpr et this result as alkes l/abnormal. [facility] [id number] 23:55:00 Test Item Value Reference Range Interpretation Comments UA RBC (test code = no gt See_Comment [Automa fabiano message] The UA RBC) system which ge nerated this result transmit fabiano reference range : <=2. The reference range was not used to interpr et this result as aleks l/abnormal. [facility] [id number] 23:55:00 Test Item Value Reference Range Interpretation Comments UA Bacteria (test code = UA Occasional /HPF Bacteria) [facility] [id number] 23:55:00 Test Item Value Reference Range Interpretation Comments UA Mucus (test code = UA Mucus) Few /LPF [facility] - [id number] 23:55:00 Test Item Value Reference Range Interpretation Comments Source Strep (test code Urine *NA*(04/11/22 = Source Strep) 6:55 PM) [facility] [id number] 23:55:00 Test Item Value Reference Range Interpretation Comments Strep pneumoniae Ag Negative (04/11/22 (test code = Strep 6:55 PM) pneumoniae Ag) [facility] [id number] 23:55:00 Test Item Value Reference Range Interpretation Comments UA Color (test code = Yellow *NA*(04/11/22 UA Color) 6:55 PM) [facility] [id number] 23:55:00 Test Item Value Reference Range Interpretation Comments UA Turbidity (test code = Clear (04/11/22 6:55 UA Turbidity) PM) [facility] [id number] 23:55:00 Test Item Value Reference Range Interpretation Comments UA Spec Grav (test code = UA Spec 1.015 1 Grav) [facility] [id number] 23:55:00 Test Item Value Reference Range Interpretation Comments UA pH (test code = UA pH) 6.0 1 5.0-8.0 [facility] [id number] 23:55:00 Test Item Value Reference Range Interpretation Comments UA Protein (test code Negative (04/11/22 6:55 = UA Protein) PM) [facility] [id number] 23:55:00 Test Item Value Reference Range Interpretation Comments UA Glucose (test code Negative (04/11/22 6:55 = UA Glucose) PM) [facility] [id number] 23:55:00 Test Item Value Reference Range Interpretation Comments UA Ketones (test code Negative *NA*(04/11/22 = UA Ketones) 6:55 PM) [facility] [id number] 23:55:00 Test Item Value Reference Range Interpretation Comments UA Bili (test code = Negative *NA*(04/11/22 UA Bili) 6:55 PM) [facility] AND [id number] 23:55:00 Test Item Value Reference Range Interpretation Comments UA Blood (test code = Negative (04/11/22 6:55 UA Blood) PM) [facility] [id number] 23:55:00 Test Item Value Reference Range Interpretation Comments UA Urobilinogen (test code = UA 0.2 0.1-1.0 Urobilinogen) [facility] AND [id number] 23:55:00 Test Item Value Reference Range Interpretation Comments UA Nitrite (test code Negative (04/11/22 6:55 = UA Nitrite) PM) [facility] AND [id number] 23:55:00 Test Item Value Reference Range Interpretation Comments UA Leuk Est (test Negative (04/11/22 6:55 code = UA Leuk Est) PM) [facility] AND [id number] 23:55:00 Test Item Value Reference Range Interpretation Comments UA Sq Epi (test code = UA Sq Occasional /LPF Epi) [facility] AND [id number] 23:55:00 Test Item Value Reference Range Interpretation Comments UA WBC (test code = no gt See_Comment [Automa fabiano message] The UA WBC) system which ge nerated this result transmit fabiano reference range : <=5. The reference range was not used to interpr et this result as aleks l/abnormal. [facility]annUR[facility] AND [id number] 23:55:00 Test Item Value Reference Range Interpretation Comments UA RBC (test code = no gt See_Comment [Automa fabiano message] The UA RBC) system which ge nerated this result transmit fabiano reference range : <=2. The reference range was not used to interpr et this result as aleks l/abnormal. [facility] [id number] 23:55:00 Test Item Value Reference Range Interpretation Comments UA Bacteria (test code = UA Occasional /HPF Bacteria) [facility] [id number] 23:55:00 Test Item Value Reference Range Interpretation Comments UA Mucus (test code = UA Mucus) Few /LPF [facility] [id number] 23:55:00 Test Item Value Reference Range Interpretation Comments UA Color (test code = Yellow *NA*(04/11/22 UA Color) 6:55 PM) [facility] - [id number] 23:55:00 Test Item Value Reference Range Interpretation Comments Source Strep (test code Urine *NA*(04/11/22 = Source Strep) 6:55 PM) [facility] [id number] 23:55:00 Test Item Value Reference Range Interpretation Comments Strep pneumoniae Ag Negative (04/11/22 (test code = Strep 6:55 PM) pneumoniae Ag) [facility] [id number] 23:55:00 Test Item Value Reference Range Interpretation Comments UA Color (test code = Yellow *NA*(04/11/22 UA Color) 6:55 PM) [facility] [id number] 23:55:00 Test Item Value Reference Range Interpretation Comments UA Turbidity (test code = Clear (04/11/22 6:55 UA Turbidity) PM) [facility] [id number] 23:55:00 Test Item Value Reference Range Interpretation Comments UA Spec Grav (test code = UA Spec 1.015 1 Grav) [facility] [id number] 23:55:00 Test Item Value Reference Range Interpretation Comments UA pH (test code = UA pH) 6.0 1 5.0-8.0 [facility] [id number] 23:55:00 Test Item Value Reference Range Interpretation Comments UA Protein (test code Negative (04/11/22 6:55 = UA Protein) PM) [facility] [id number] 23:55:00 Test Item Value Reference Range Interpretation Comments UA Turbidity (test code = Clear (04/11/22 6:55 UA Turbidity) PM) [facility] [id number] 23:55:00 Test Item Value Reference Range Interpretation Comments UA Glucose (test code Negative (04/11/22 6:55 = UA Glucose) PM) [facility] [id number] 23:55:00 Test Item Value Reference Range Interpretation Comments UA Ketones (test code Negative *NA*(04/11/22 = UA Ketones) 6:55 PM) [facility] [id number] 23:55:00 Test Item Value Reference Range Interpretation Comments UA Bili (test code = Negative *NA*(04/11/22 UA Bili) 6:55 PM) [facility] [id number] 23:55:00 Test Item Value Reference Range Interpretation Comments UA Blood (test code = Negative (04/11/22 6:55 UA Blood) PM) [facility] AND [id number] 23:55:00 Test Item Value Reference Range Interpretation Comments UA Urobilinogen (test code = UA 0.2 0.1-1.0 Urobilinogen) [facility] [id number] 23:55:00 Test Item Value Reference Range Interpretation Comments UA Nitrite (test code Negative (04/11/22 6:55 = UA Nitrite) PM) [facility] AND [id number] 23:55:00 Test Item Value Reference Range Interpretation Comments UA Leuk Est (test Negative (04/11/22 6:55 code = UA Leuk Est) PM) [facility] [id number] 23:55:00 Test Item Value Reference Range Interpretation Comments UA Sq Epi (test code = UA Sq Occasional /LPF Epi) [facility] AND [id number] 23:55:00 Test Item Value Reference Range Interpretation Comments UA WBC (test code = no gt See_Comment [Automa fabiano message] The UA WBC) system which ge nerated this result transmit fabiano reference range : <=5. The reference range was not used to interpr et this result as aleks l/abnormal. [facility] AND [id number] 23:55:00 Test Item Value Reference Range Interpretation Comments UA RBC (test code = no gt See_Comment [Automa fabiano message] The UA RBC) system which ge nerated this result transmit fabiano reference range : <=2. The reference range was not used to interpr et this result as aleks l/abnormal. [facility] [id number] 23:55:00 Test Item Value Reference Range Interpretation Comments UA Spec Grav (test code = UA Spec 1.015 1 Grav) [facility] [id number] 23:55:00 Test Item Value Reference Range Interpretation Comments UA Bacteria (test code = UA Occasional /HPF Bacteria) [facility] [id number] 23:55:00 Test Item Value Reference Range Interpretation Comments UA Mucus (test code = UA Mucus) Few /LPF [facility] [id number] 23:55:00 Test Item Value Reference Range Interpretation Comments UA Color (test code = Yellow *NA*(04/11/22 UA Color) 6:55 PM) [facility] [id number] 23:55:00 Test Item Value Reference Range Interpretation Comments UA Turbidity (test code = Clear (04/11/22 6:55 UA Turbidity) PM) [facility] [id number] 23:55:00 Test Item Value Reference Range Interpretation Comments UA Spec Grav (test code = UA Spec 1.015 1 Grav) [facility] [id number] 23:55:00 Test Item Value Reference Range Interpretation Comments UA pH (test code = UA pH) 6.0 1 5.0-8.0 [facility] [id number] 23:55:00 Test Item Value Reference Range Interpretation Comments UA Protein (test code Negative (04/11/22 6:55 = UA Protein) PM) [facility] [id number] 23:55:00 Test Item Value Reference Range Interpretation Comments UA Glucose (test code Negative (04/11/22 6:55 = [facility]A Glucose) PM) [facility] [id number] 23:55:00 Test Item Value Reference Range Interpretation Comments UA Ketones (test code Negative *NA*(04/11/22 = UA Ketones) 6:55 PM) [facility] [id number] 23:55:00 Test Item Value Reference Range Interpretation Comments UA Bili (test code = Negative *NA*(04/11/22 UA Bili) 6:55 PM) [facility] [id number] 23:55:00 Test Item Value Reference Range Interpretation Comments UA pH (test code = UA pH) 6.0 1 5.0-8.0 [facility] [id number] 23:55:00 Test Item Value Reference Range Interpretation Comments UA Blood (test code = Negative (04/11/22 6:55 UA Blood) PM) [facility] [id number] 23:55:00 Test Item Value Reference Range Interpretation Comments UA Urobilinogen (test code = UA 0.2 0.1-1.0 Urobilinogen) [facility] [id number] 23:55:00 Test Item Value Reference Range Interpretation Comments UA Nitrite (test code Negative (04/11/22 6:55 = UA Nitrite) PM) [facility] [id number] 23:55:00 Test Item Value Reference Range Interpretation Comments UA Leuk Est (test Negative (04/11/22 6:55 code = UA Leuk Est) PM) [facility] [id number] 23:55:00 Test Item Value Reference Range Interpretation Comments UA Sq Epi (test code = UA Sq Occasional /LPF Epi) [facility] [id number] 23:55:00 Test Item Value Reference Range Interpretation Comments UA WBC (test code = no gt See_Comment [Automa fabiano message] The UA WBC) system which ge nerated this result transmit fabiano reference range : <=5. The reference range was not used to interpr et this result as aleks l/abnormal. [facility] [id number] 23:55:00 Test Item Value Reference Range Interpretation Comments UA RBC (test code = no gt See_Comment [Automa fabiano message] The UA RBC) system which ge nerated this result transmit fabiano reference range : <=2. The reference range was not used to interpr et this result as aleks l/abnormal. [facility] [id number] 23:55:00 Test Item Value Reference Range Interpretation Comments UA Bacteria (test code = UA Occasional /HPF Bacteria) [facility] [id number] 23:55:00 Test Item Value Reference Range Interpretation Comments UA Mucus (test code = UA Mucus) Few /LPF [facility] [id number] 23:55:00 Test Item Value Reference Range Interpretation Comments UA Protein (test code Negative (04/11/22 6:55 = UA Protein) PM) [facility] [id number] 23:55:00 Test Item Value Reference Range Interpretation Comments UA Glucose (test code Negative (04/11/22 6:55 = UA Glucose) PM) [facility] [id number] 23:55:00 Test Item Value Reference Range Interpretation Comments UA Ketones (test code Negative *NA*(04/11/22 = UA Ketones) 6:55 PM) [facility] [id number] 23:55:00 Test Item Value Reference Range Interpretation Comments UA Bili (test code = Negative *NA*(04/11/22 UA Bili) 6:55 PM) [facility] [id number] 23:55:00 Test Item Value Reference Range Interpretation Comments UA Blood (test code = Negative (04/11/22 6:55 UA Blood) PM) [facility] [id number] 23:55:00 Test Item Value Reference Range Interpretation Comments UA Urobilinogen (test code = UA 0.2 0.1-1.0 Urobilinogen) [facility] [id number] 23:55:00 Test Item Value Reference Range Interpretation Comments UA Nitrite (test code Negative (04/11/22 6:55 = UA Nitrite) PM) [facility] [id number] 23:55:00 Test Item Value Reference Range Interpretation Comments UA Leuk Est (test Negative (04/11/22 6:55 code = UA Leuk Est) PM) [facility] [id number] 23:55:00 Test Item Value Reference Range Interpretation Comments UA Sq Epi (test code = UA Sq Occasional /LPF Epi) [facility] [id number] 23:55:00 Test Item Value Reference Range Interpretation Comments UA WBC (test code = no gt See_Comment [Automa fabaino message] The UA WBC) system which ge nerated this result transmit fabiano reference range : <=5. The reference range was not used to interpr et this result as aleks l/abnormal. [facility] [id number] 23:55:00 Test Item Value Reference Range Interpretation Comments UA RBC (test code = no gt See_Comment [Automa fabiano message] The UA RBC) system which ge nerated this result transmit fabiano reference range : <=2. The reference range was not used to interpr et this result as aleks l/abnormal. [facility] [id number] 23:55:00 Test Item Value Reference Range Interpretation Comments UA Bacteria (test code = UA Occasional /HPF Bacteria) [facility] [id number] 23:55:00 Test Item Value Reference Range Interpretation Comments UA Mucus (test code = UA Mucus) Few /LPF [facility] [id number] 23:55:00 Test Item Value Reference Range Interpretation Comments Source Strep (test code Urine *NA*(04/11/22 = Source Strep) 6:55 PM) [facility] [id number] 23:55:00 Test Item Value Reference Range Interpretation Comments Strep pneumoniae Ag Negative (04/11/22 (test code = Strep 6:55 PM) pneumoniae Ag) [facility] [id number] 23:55:00 Test Item Value Reference Range Interpretation Comments UA Color (test code = Yellow *NA*(04/11/22 UA Color) 6:55 PM) [facility] [id number] 23:55:00 Test Item Value Reference Range Interpretation Comments UA Turbidity (test code = Clear (04/11/22 6:55 UA Turbidity) PM) [facility] [id number] 23:55:00 Test Item Value Reference Range Interpretation Comments UA Spec Grav (test code = UA Spec 1.015 1 Grav) [facility] [id number] 23:55:00 Test Item Value Reference Range Interpretation Comments UA pH (test code = UA pH) 6.0 1 5.0-8.0 [facility] [id number] 23:55:00 Test Item Value Reference Range Interpretation Comments UA Protein (test code Negative (04/11/22 6:55 = UA Protein) PM) [facility] [id number] 23:55:00 Test Item Value Reference Range Interpretation Comments UA Glucose (test code Negative (04/11/22 6:55 = UA Glucose) PM) [facility] [id number] 23:55:00 Test Item Value Reference Range Interpretation Comments UA Ketones (test code Negative *NA*(04/11/22 = UA Ketones) 6:55 PM) [facility] [id number] 23:55:00 Test Item Value Reference Range Interpretation Comments UA Bili (test code = Negative *NA*(04/11/22 UA Bili) 6:55 PM) [facility] [id number] 23:55:00 Test Item Value Reference Range Interpretation Comments UA Blood (test code = Negative (04/11/22 6:55 UA Blood) PM) [facility] [id number] 23:55:00 Test Item Value Reference Range Interpretation Comments UA Urobilinogen (test code = UA 0.2 0.1-1.0 Urobilinogen) [facility] [id number] 23:55:00 Test Item Value Reference Range Interpretation Comments UA Nitrite (test code Negative (04/11/22 6:55 = UA Nitrite) PM) [facility] [id number] 23:55:00 Test Item Value Reference Range Interpretation Comments UA Leuk Est (test Negative (04/11/22 6:55 code = UA Leuk Est) PM) [facility] [id number] 23:55:00 Test Item Value Reference Range Interpretation Comments UA Sq Epi (test code = UA Sq Occasional /LPF Epi) [facility] AND [id number] 23:55:00 Test Item Value Reference Range Interpretation Comments UA WBC (test code = no gt See_Comment [Automa fabiano message] The UA WBC) system which ge nerated this result transmit fabiano reference range : <=5. The reference range was not used to interpr et this result as aleks l/abnormal. [facility] [id number] 23:55:00 Test Item Value Reference Range Interpretation Comments UA RBC (test code = no gt See_Comment [Automa fabiano message] The UA RBC) system which ge nerated this result transmit fabiano reference range : <=2. The reference range was not used to interpr et this result as aleks l/abnormal. [facility] [id number] 23:55:00 Test Item Value Reference Range Interpretation Comments UA Bacteria (test code = UA Occasional /HPF Bacteria) [facility] [id number] 23:55:00 Test Item Value Reference Range Interpretation Comments UA Mucus (test code = UA Mucus) Few /LPF [facility] [id number] 23:55:00 Test Item Value Reference Range Interpretation Comments UA Color (test code = Yellow *NA*(04/11/22 UA Color) 6:55 PM) [facility] [id number] 23:55:00 Test Item Value Reference Range Interpretation Comments UA Turbidity (test code = Clear (04/11/22 6:55 UA Turbidity) PM) [facility] [id number] 23:55:00 Test Item Value Reference Range Interpretation Comments UA Spec Grav (test code = UA Spec 1.015 1 Grav) [facility] AND [id number] 23:55:00 Test Item Value Reference Range Interpretation Comments UA pH (test code = UA pH) 6.0 1 5.0-8.0 [facility] [id number] 23:55:00 Test Item Value Reference Range Interpretation Comments UA Protein (test code Negative (04/11/22 6:55 = UA Protein) PM) [facility] [id number] 23:55:00 Test Item Value Reference Range Interpretation Comments UA Glucose (test code Negative (04/11/22 6:55 = UA Glucose) PM) [facility] [id number] 23:55:00 Test Item Value Reference Range Interpretation Comments UA Ketones (test code Negative *NA*(04/11/22 = UA Ketones) 6:55 PM) [facility] [id number] 23:55:00 Test Item Value Reference Range Interpretation Comments UA Bili (test code = Negative *NA*(04/11/22 UA Bili) 6:55 PM) [facility] [id number] 23:55:00 Test Item Value Reference Range Interpretation Comments UA Blood (test code = Negative (04/11/22 6:55 UA Blood) PM) [facility] [id number] 23:55:00 Test Item Value Reference Range Interpretation Comments UA Urobilinogen (test code = UA 0.2 0.1-1.0 Urobilinogen) [facility] [id number] 23:55:00 Test Item Value Reference Range Interpretation Comments UA Nitrite (test code Negative (04/11/22 6:55 = UA Nitrite) PM) [facility] [id number] 23:55:00 Test Item Value Reference Range Interpretation Comments UA Leuk Est (test Negative (04/11/22 6:55 code = UA Leuk Est) PM) [facility] [id number] 23:55:00 Test Item Value Reference Range Interpretation Comments UA Sq Epi (test code = UA Sq Occasional /LPF Epi) [facility] [id number] 23:55:00 Test Item Value Reference Range Interpretation Comments UA WBC (test code = no gt See_Comment [Automa fabiano message] The UA WBC) system which ge nerated this result transmit fabiano reference range : <=5. The reference range was not used to interpr et this result as aleks l/abnormal. [facility] [id number] 23:55:00 Test Item Value Reference Range Interpretation Comments UA RBC (test code = no gt See_Comment [Automa fabiano message] The UA RBC) system which ge nerated this result transmit fabiano reference range : <=2. The reference range was not used to interpr et this result as aleks l/abnormal. [facility] [id number] 23:55:00 Test Item Value Reference Range Interpretation Comments UA Bacteria (test code = UA Occasional /HPF Bacteria) [facility] [id number] 23:55:00 Test Item Value Reference Range Interpretation Comments UA Mucus (test code = UA Mucus) Few /LPF [facility] [id number] 23:55:00 Test Item Value Reference Range Interpretation Comments Source Strep (test code Urine *NA*(04/11/22 = Source Strep) 6:55 PM) [facility] [id number] 23:55:00 Test Item Value Reference Range Interpretation Comments Strep pneumoniae Ag Negative (04/11/22 (test code = Strep 6:55 PM) pneumoniae Ag) [facility] [id number] 23:55:00 Test Item Value Reference Range Interpretation Comments UA Color (test code = Yellow *NA*(04/11/22 UA Color) 6:55 PM) [facility] [id number] 23:55:00 Test Item Value Reference Range Interpretation Comments UA Turbidity (test code = Clear (04/11/22 6:55 UA Turbidity) PM) [facility] [id number] 23:55:00 Test Item Value Reference Range Interpretation Comments UA Spec Grav (test code = UA Spec 1.015 1 Grav) [facility] [id number] 23:55:00 Test Item Value Reference Range Interpretation Comments UA pH (test code = UA pH) 6.0 1 5.0-8.0 [facility] [id number] 23:55:00 Test Item Value Reference Range Interpretation Comments UA Protein (test code Negative (04/11/22 6:55 = UA Protein) PM) [facility] [id number] 23:55:00 Test Item Value Reference Range Interpretation Comments UA Glucose (test code Negative (04/11/22 6:55 = UA Glucose) PM) [facility] [id number] 23:55:00 Test Item Value Reference Range Interpretation Comments UA Ketones (test code Negative *NA*(04/11/22 = UA Ketones) 6:55 PM) [facility] [id number] 23:55:00 Test Item Value Reference Range Interpretation Comments UA Bili (test code = Negative *NA*(04/11/22 UA Bili) 6:55 PM) [facility] [id number] 23:55:00 Test Item Value Reference Range Interpretation Comments UA Blood (test code = Negative (04/11/22 6:55 UA Blood) PM) [facility] [id number] 23:55:00 Test Item Value Reference Range Interpretation Comments UA Urobilinogen (test code = UA 0.2 0.1-1.0 Urobilinogen) [facility] [id number] 23:55:00 Test Item Value Reference Range Interpretation Comments UA Nitrite (test code Negative (04/11/22 6:55 = UA Nitrite) PM) [facility] [id number] 23:55:00 Test Item Value Reference Range Interpretation Comments UA Leuk Est (test Negative (04/11/22 6:55 code = UA Leuk Est) PM) [facility] [id number] 23:55:00 Test Item Value Reference Range Interpretation Comments UA Sq Epi (test code = UA Sq Occasional /LPF Epi) [facility] [id number] 23:55:00 Test Item Value Reference Range Interpretation Comments UA WBC (test code = no gt See_Comment [Automa fabiano message] The UA WBC) system which ge nerated this result transmit fabiano reference range : <=5. The reference range was not used to interpr et this result as aleks l/abnormal. [facility] [id number] 23:55:00 Test Item Value Reference Range Interpretation Comments UA RBC (test code = no gt See_Comment [Automa fabiano message] The UA RBC) system which ge nerated this result transmit fabiano reference range : <=2. The reference range was not used to interpr et this result as aleks l/abnormal. [facility] [id number] 23:55:00 Test Item Value Reference Range Interpretation Comments UA Bacteria (test code = UA Occasional /HPF Bacteria) [facility] [id number] 23:55:00 Test Item Value Reference Range Interpretation Comments UA Mucus (test code = UA Mucus) Few /LPF [facility] [id number] 23:55:00 Test Item Value Reference Range Interpretation Comments UA Color (test code = Yellow *NA*(04/11/22 UA Color) 6:55 PM) [facility] [id number] 23:55:00 Test Item Value Reference Range Interpretation Comments UA Turbidity (test code = Clear (04/11/22 6:55 UA Turbidity) PM) [facility] [id number] 23:55:00 Test Item Value Reference Range Interpretation Comments UA Spec Grav (test code = UA Spec 1.015 1 Grav) [facility] [id number] 23:55:00 Test Item Value Reference Range Interpretation Comments UA pH (test code = UA pH) 6.0 1 5.0-8.0 [facility] [id number] 23:55:00 Test Item Value Reference Range Interpretation Comments UA Protein (test code Negative (04/11/22 6:55 = UA Protein) PM) [facility] [id number] 23:55:00 Test Item Value Reference Range Interpretation Comments UA Glucose (test code Negative (04/11/22 6:55 = UA Glucose) PM) [facility] [id number] 23:55:00 Test Item Value Reference Range Interpretation Comments UA Ketones (test code Negative *NA*(04/11/22 = UA Ketones) 6:55 PM) [facility] [id number] 23:55:00 Test Item Value Reference Range Interpretation Comments UA Bili (test code = Negative *NA*(04/11/22 UA Bili) 6:55 PM) [facility] [id number] 23:55:00 Test Item Value Reference Range Interpretation Comments UA Blood (test code = Negative (04/11/22 6:55 UA Blood) PM) [facility] [id number] 23:55:00 Test Item Value Reference Range Interpretation Comments UA Urobilinogen (test code = UA 0.2 0.1-1.0 Urobilinogen) [facility] [id number] 23:55:00 Test Item Value Reference Range Interpretation Comments UA Nitrite (test code Negative (04/11/22 6:55 = UA Nitrite) PM) [facility] [id number] 23:55:00 Test Item Value Reference Range Interpretation Comments UA Leuk Est (test Negative (04/11/22 6:55 code = UA Leuk Est) PM) [facility] [id number] 23:55:00 Test Item Value Reference Range Interpretation Comments UA Sq Epi (test code = UA Sq Occasional /LPF Epi) [facility] [id number] 23:55:00 Test Item Value Reference Range Interpretation Comments UA WBC (test code = no gt See_Comment [Automa fabiano message] The UA WBC) system which ge nerated this result transmit fabiano reference range : <=5. The reference range was not used to interpr et this result as aleks l/abnormal. [facility] [id number] 23:55:00 Test Item Value Reference Range Interpretation Comments UA RBC (test code = no gt See_Comment [Automa fabiano message] The UA RBC) system which ge nerated this result transmit fabiano reference range : <=2. The reference range was not used to interpr et this result as aleks l/abnormal. [facility] [id number] 23:55:00 Test Item Value Reference Range Interpretation Comments UA Bacteria (test code = UA Occasional /HPF Bacteria) [facility] [id number] 23:55:00 Test Item Value Reference Range Interpretation Comments UA Mucus (test code = UA Mucus) Few /LPF [facility]BA[facility] [id number] 23:55:00 Test Item Value Reference Range Interpretation Comments Source Strep (test code Urine *NA*(04/11/22 = Source Strep) 6:55 PM) [facility] [id number] 23:55:00 Test Item Value Reference Range Interpretation Comments Strep pneumoniae Ag Negative (04/11/22 (test code = Strep 6:55 PM) pneumoniae Ag) [facility] [id number] 23:55:00 Test Item Value Reference Range Interpretation Comments UA Color (test code = Yellow *NA*(04/11/22 UA Color) 6:55 PM) [facility] [id number] 23:55:00 Test Item Value Reference Range Interpretation Comments UA Turbidity (test code = Clear (04/11/22 6:55 UA Turbidity) PM) [facility] [id number] 23:55:00 Test Item Value Reference Range Interpretation Comments UA Spec Grav (test code = UA Spec 1.015 1 Grav) [facility] [id number] 23:55:00 Test Item Value Reference Range Interpretation Comments UA pH (test code = UA pH) 6.0 1 5.0-8.0 [facility] [id number] 23:55:00 Test Item Value Reference Range Interpretation Comments UA Protein (test code Negative (04/11/22 6:55 = UA Protein) PM) [facility] [id number] 23:55:00 Test Item Value Reference Range Interpretation Comments UA Glucose (test code Negative (04/11/22 6:55 = UA Glucose) PM) [facility] [id number] 23:55:00 Test Item Value Reference Range Interpretation Comments UA Ketones (test code Negative *NA*(04/11/22 = UA Ketones) 6:55 PM) [facility] [id number] 23:55:00 Test Item Value Reference Range Interpretation Comments UA Bili (test code = Negative *NA*(04/11/22 UA Bili) 6:55 PM) [facility] [id number] 23:55:00 Test Item Value Reference Range Interpretation Comments UA Blood (test code = Negative (04/11/22 6:55 UA Blood) PM) [facility] [id number] 23:55:00 Test Item Value Reference Range Interpretation Comments UA Urobilinogen (test code = UA 0.2 0.1-1.0 Urobilinogen) [facility] [id number] 23:55:00 Test Item Value Reference Range Interpretation Comments UA Nitrite (test code Negative (04/11/22 6:55 = UA Nitrite) PM) [facility] [id number] 23:55:00 Test Item Value Reference Range Interpretation Comments UA Leuk Est (test Negative (04/11/22 6:55 code = UA Leuk Est) PM) [facility] [id number] 23:55:00 Test Item Value Reference Range Interpretation Comments UA Sq Epi (test code = UA Sq Occasional /LPF Epi) [facility] [id number] 23:55:00 Test Item Value Reference Range Interpretation Comments UA WBC (test code = no gt See_Comment [Automa fabiano message] The UA WBC) system which ge nerated this result transmit fabiano reference range : <=5. The reference range was not used to interpr et this result as aleks l/abnormal. [facility] [id number] 23:55:00 Test Item Value Reference Range Interpretation Comments UA RBC (test code = no gt See_Comment [Automa fabiano message] The UA RBC) system which ge nerated this result transmit fabiano reference range : <=2. The reference range was not used to interpr et this result as aleks l/abnormal. [facility] [id number] 23:55:00 Test Item Value Reference Range Interpretation Comments UA Bacteria (test code = UA Occasional /HPF Bacteria) [facility] [id number] 23:55:00 Test Item Value Reference Range Interpretation Comments UA Mucus (test code = UA Mucus) Few /LPF [facility] [id number] 23:55:00 Test Item Value Reference Range Interpretation Comments UA Color (test code = Yellow *NA*(04/11/22 UA Color) 6:55 PM) [facility] [id number] 23:55:00 Test Item Value Reference Range Interpretation Comments UA Turbidity (test code = Clear (04/11/22 6:55 UA Turbidity) PM) [facility] [id number] 23:55:00 Test Item Value Reference Range Interpretation Comments UA Spec Grav (test code = UA Spec 1.015 1 Grav) [facility] [id number] 23:55:00 Test Item Value Reference Range Interpretation Comments UA pH (test code = UA pH) 6.0 1 5.0-8.0 [facility] [id number] 23:55:00 Test Item Value Reference Range Interpretation Comments UA Protein (test code Negative (04/11/22 6:55 = UA Protein) PM) [facility] [id number] 23:55:00 Test Item Value Reference Range Interpretation Comments UA Glucose (test code Negative (04/11/22 6:55 = UA Glucose) PM) [facility] [id number] 23:55:00 Test Item Value Reference Range Interpretation Comments UA Ketones (test code Negative *NA*(04/11/22 = UA Ketones) 6:55 PM) [facility] [id number] 23:55:00 Test Item Value Reference Range Interpretation Comments UA Bili (test code = Negative *NA*(04/11/22 UA Bili) 6:55 PM) [facility] [id number] 23:55:00 Test Item Value Reference Range Interpretation Comments UA Blood (test code = Negative (04/11/22 6:55 UA Blood) PM) [facility] [id number] 23:55:00 Test Item Value Reference Range Interpretation Comments UA Urobilinogen (test code = UA 0.2 0.1-1.0 Urobilinogen) [facility] [id number] 23:55:00 Test Item Value Reference Range Interpretation Comments UA Nitrite (test code Negative (04/11/22 6:55 = UA Nitrite) PM) [facility] [id number] 23:55:00 Test Item Value Reference Range Interpretation Comments UA Leuk Est (test Negative (04/11/22 6:55 code = UA Leuk Est) PM) [facility] [id number] 23:55:00 Test Item Value Reference Range Interpretation Comments UA Sq Epi (test code = UA Sq Occasional /LPF Epi) [facility] [id number] 23:55:00 Test Item Value Reference Range Interpretation Comments UA WBC (test code = no gt See_Comment [Automa fabiano message] The UA WBC) system which ge nerated this result transmit fabiano reference range : <=5. The reference range was not used to interpr et this result as aleks l/abnormal. [facility] [id number] 23:55:00 Test Item Value Reference Range Interpretation Comments UA RBC (test code = no gt See_Comment [Automa fabiano message] The UA RBC) system which ge nerated this result transmit fabiano reference range : <=2. The reference range was not used to interpr et this result as aleks l/abnormal. [facility] [id number] 23:55:00 Test Item Value Reference Range Interpretation Comments UA Bacteria (test code = UA Occasional /HPF Bacteria) [facility] [id number] 23:55:00 Test Item Value Reference Range Interpretation Comments UA Mucus (test code = UA Mucus) Few /LPF [facility] [id number] 23:55:00 Test Item Value Reference Range Interpretation Comments Source Strep (test code Urine *NA*(04/11/22 = Source Strep) 6:55 PM) [facility] [id number] 23:55:00 Test Item Value Reference Range Interpretation Comments Strep pneumoniae Ag Negative (04/11/22 (test code = Strep 6:55 PM) pneumoniae Ag) [facility] [id number] 23:55:00 Test Item Value Reference Range Interpretation Comments UA Color (test code = Yellow *NA*(04/11/22 UA Color) 6:55 PM) [facility] [id number] 23:55:00 Test Item Value Reference Range Interpretation Comments UA Turbidity (test code = Clear (04/11/22 6:55 UA Turbidity) PM) [facility] [id number] 23:55:00 Test Item Value Reference Range Interpretation Comments UA Spec Grav (test code = UA Spec 1.015 1 Grav) [facility] [id number] 23:55:00 Test Item Value Reference Range Interpretation Comments UA pH (test code = UA pH) 6.0 1 5.0-8.0 [facility] [id number] 23:55:00 Test Item Value Reference Range Interpretation Comments UA Protein (test code Negative (04/11/22 6:55 = UA Protein) PM) [facility] [id number] 23:55:00 Test Item Value Reference Range Interpretation Comments UA Glucose (test code Negative (04/11/22 6:55 = UA Glucose) PM) [facility] [id number] 23:55:00 Test Item Value Reference Range Interpretation Comments UA Ketones (test code Negative *NA*(04/11/22 = UA Ketones) 6:55 PM) [facility] [id number] 23:55:00 Test Item Value Reference Range Interpretation Comments UA Bili (test code = Negative *NA*(04/11/22 UA Bili) 6:55 PM) [facility] [id number] 23:55:00 Test Item Value Reference Range Interpretation Comments UA Blood (test code = Negative (04/11/22 6:55 UA Blood) PM) [facility] [id number] 23:55:00 Test Item Value Reference Range Interpretation Comments UA Urobilinogen (test code = UA 0.2 0.1-1.0 Urobilinogen) [facility] [id number] 23:55:00 Test Item Value Reference Range Interpretation Comments UA Nitrite (test code Negative (04/11/22 6:55 = UA Nitrite) PM) [facility] [id number] 23:55:00 Test Item Value Reference Range Interpretation Comments UA Leuk Est (test Negative (04/11/22 6:55 code = UA Leuk Est) PM) [facility] [id number] 23:55:00 Test Item Value Reference Range Interpretation Comments UA Sq Epi (test code = UA Sq Occasional /LPF Epi) [facility] [id number] 23:55:00 Test Item Value Reference Range Interpretation Comments UA WBC (test code = no gt See_Comment [Automa fabiano message] The UA WBC) system which ge nerated this result transmit fabiano reference range : <=5. The reference range was not used to interpr et this result as aleks l/abnormal. [facility] [id number] 23:55:00 Test Item Value Reference Range Interpretation Comments UA RBC (test code = no gt See_Comment [Automa fabiano message] The UA RBC) system which ge nerated this result transmit fabiano reference range : <=2. The reference range was not used to interpr et this result as aleks l/abnormal. [facility] [id number] 23:55:00 Test Item Value Reference Range Interpretation Comments UA Bacteria (test code = UA Occasional /HPF Bacteria) [facility] [id number] 23:55:00 Test Item Value Reference Range Interpretation Comments UA Mucus (test code = UA Mucus) Few /LPF [facility] [id number] 23:55:00 Test Item Value Reference Range Interpretation Comments UA Color (test code = Yellow *NA*(04/11/22 UA Color) 6:55 PM) [facility] [id number] 23:55:00 Test Item Value Reference Range Interpretation Comments UA Turbidity (test code = Clear (04/11/22 6:55 UA Turbidity) PM) [facility] [id number] 23:55:00 Test Item Value Reference Range Interpretation Comments UA Spec Grav (test code = UA Spec 1.015 1 Grav) [facility] [id number] 23:55:00 Test Item Value Reference Range Interpretation Comments UA pH (test code = UA pH) 6.0 1 5.0-8.0 [facility] [id number] 23:55:00 Test Item Value Reference Range Interpretation Comments UA Protein (test code Negative (04/11/22 6:55 = UA Protein) PM) [facility] [id number] 23:55:00 Test Item Value Reference Range Interpretation Comments UA Glucose (test code Negative (04/11/22 6:55 = UA Glucose) PM) [facility] [id number] 23:55:00 Test Item Value Reference Range Interpretation Comments UA Ketones (test code Negative *NA*(04/11/22 = UA Ketones) 6:55 PM) [facility] [id number] 23:55:00 Test Item Value Reference Range Interpretation Comments UA Bili (test code = Negative *NA*(04/11/22 UA Bili) 6:55 PM) [facility] [id number] 23:55:00 Test Item Value Reference Range Interpretation Comments UA Blood (test code = Negative (04/11/22 6:55 UA Blood) PM) [facility] [id number] 23:55:00 Test Item Value Reference Range Interpretation Comments UA Urobilinogen (test code = UA 0.2 0.1-1.0 Urobilinogen) [facility] [id number] 23:55:00 Test Item Value Reference Range Interpretation Comments UA Nitrite (test code Negative (04/11/22 6:55 = UA Nitrite) PM) [facility] [id number] 23:55:00 Test Item Value Reference Range Interpretation Comments UA Leuk Est (test Negative (04/11/22 6:55 code = UA Leuk Est) PM) [facility] [id number] 23:55:00 Test Item Value Reference Range Interpretation Comments UA Sq Epi (test code = UA Sq Occasional /LPF Epi) [facility] [id number] 23:55:00 Test Item Value Reference Range Interpretation Comments UA WBC (test code = no gt See_Comment [Automa fabiano message] The UA WBC) system which ge nerated this result transmit fabiano reference range : <=5. The reference range was not used to interpr et this result as aleks l/abnormal. [facility] [id number] 23:55:00 Test Item Value Reference Range Interpretation Comments UA RBC (test code = no gt See_Comment [Automa fabiano message] The UA RBC) system which ge nerated this result transmit fabiano reference range : <=2. The reference range was not used to interpr et this result as aleks l/abnormal. [facility] [id number] 23:55:00 Test Item Value Reference Range Interpretation Comments UA Bacteria (test code = UA Occasional /HPF Bacteria) [facility] [id number] 23:55:00 Test Item Value Reference Range Interpretation Comments UA Mucus (test code = UA Mucus) Few /LPF [facility] [id number] 23:55:00 Test Item Value Reference Range Interpretation Comments Source Strep (test code Urine *NA*(04/11/22 = Source Strep) 6:55 PM) [facility] [id number] 23:55:00 Test Item Value Reference Range Interpretation Comments Strep pneumoniae Ag Negative (04/11/22 (test code = Strep 6:55 PM) pneumoniae Ag) [facility] [id number] 23:55:00 Test Item Value Reference Range Interpretation Comments UA Color (test code = Yellow *NA*(04/11/22 UA Color) 6:55 PM) [facility] [id number] 23:55:00 Test Item Value Reference Range Interpretation Comments UA Turbidity (test code = Clear (04/11/22 6:55 UA Turbidity) PM) [facility] [id number] 23:55:00 Test Item Value Reference Range Interpretation Comments UA Spec Grav (test code = UA Spec 1.015 1 Grav) [facility] [id number] 23:55:00 Test Item Value Reference Range Interpretation Comments UA pH (test code = UA pH) 6.0 1 5.0-8.0 [facility] [id number] 23:55:00 Test Item Value Reference Range Interpretation Comments UA Protein (test code Negative (04/11/22 6:55 = UA Protein) PM) [facility] [id number] 23:55:00 Test Item Value Reference Range Interpretation Comments UA Glucose (test code Negative (04/11/22 6:55 = UA Glucose) PM) [facility] [id number] 23:55:00 Test Item Value Reference Range Interpretation Comments UA Ketones (test code Negative *NA*(04/11/22 = UA Ketones) 6:55 PM) [facility] [id number] 23:55:00 Test Item Value Reference Range Interpretation Comments UA Bili (test code = Negative *NA*(04/11/22 UA Bili) 6:55 PM) [facility] [id number] 23:55:00 Test Item Value Reference Range Interpretation Comments UA Blood (test code = Negative (04/11/22 6:55 UA Blood) PM) [facility] [id number] 23:55:00 Test Item Value Reference Range Interpretation Comments UA Urobilinogen (test code = UA 0.2 0.1-1.0 Urobilinogen) [facility] [id number] 23:55:00 Test Item Value Reference Range Interpretation Comments UA Nitrite (test code Negative (04/11/22 6:55 = UA Nitrite) PM) [facility] [id number] 23:55:00 Test Item Value Reference Range Interpretation Comments UA Leuk Est (test Negative (04/11/22 6:55 code = UA Leuk Est) PM) [facility] [id number] 23:55:00 Test Item Value Reference Range Interpretation Comments UA Sq Epi (test code = UA Sq Occasional /LPF Epi) [facility] [id number] 23:55:00 Test Item Value Reference Range Interpretation Comments UA WBC (test code = no gt See_Comment [Automa fabiano message] The UA WBC) system which ge nerated this result transmit fabiano reference range : <=5. The reference range was not used to interpr et this result as aleks l/abnormal. [facility] [id number] 23:55:00 Test Item Value Reference Range Interpretation Comments UA RBC (test code = no gt See_Comment [Automa fabiano message] The UA RBC) system which ge nerated this result transmit fabiano reference range : <=2. The reference range was not used to interpr et this result as aleks l/abnormal. [facility] [id number] 23:55:00 Test Item Value Reference Range Interpretation Comments UA Bacteria (test code = UA Occasional /HPF Bacteria) [facility] [id number] 23:55:00 Test Item Value Reference Range Interpretation Comments UA Mucus (test code = UA Mucus) Few /LPF [facility] [id number] 23:55:00 Test Item Value Reference Range Interpretation Comments UA Color (test code = Yellow *NA*(04/11/22 UA Color) 6:55 PM) [facility] [id number] 23:55:00 Test Item Value Reference Range Interpretation Comments UA Turbidity (test code = Clear (04/11/22 6:55 UA Turbidity) PM) [facility] [id number] 23:55:00 Test Item Value Reference Range Interpretation Comments UA Spec Grav (test code = UA Spec 1.015 1 Grav) [facility] [id number] 23:55:00 Test Item Value Reference Range Interpretation Comments UA pH (test code = UA pH) 6.0 1 5.0-8.0 [facility] [id number] 23:55:00 Test Item Value Reference Range Interpretation Comments UA Protein (test code Negative (04/11/22 6:55 = UA Protein) PM) [facility] [id number] 23:55:00 Test Item Value Reference Range Interpretation Comments UA Glucose (test code Negative (04/11/22 6:55 = UA Glucose) PM) [facility] [id number] 23:55:00 Test Item Value Reference Range Interpretation Comments UA Ketones (test code Negative *NA*(04/11/22 = UA Ketones) 6:55 PM) [facility] [id number] 23:55:00 Test Item Value Reference Range Interpretation Comments UA Bili (test code = Negative *NA*(04/11/22 UA Bili) 6:55 PM) [facility] [id number] 23:55:00 Test Item Value Reference Range Interpretation Comments UA Blood (test code = Negative (04/11/22 6:55 UA Blood) PM) [facility] [id number] 23:55:00 Test Item Value Reference Range Interpretation Comments UA Urobilinogen (test code = UA 0.2 0.1-1.0 Urobilinogen) [facility] [id number] 23:55:00 Test Item Value Reference Range Interpretation Comments UA Nitrite (test code Negative (04/11/22 6:55 = UA Nitrite) PM) [facility] [id number] 23:55:00 Test Item Value Reference Range Interpretation Comments UA Leuk Est (test Negative (04/11/22 6:55 code = UA Leuk Est) PM) [facility] [id number] 23:55:00 Test Item Value Reference Range Interpretation Comments UA Sq Epi (test code = UA Sq Occasional /LPF Epi) [facility] [id number] 23:55:00 Test Item Value Reference Range Interpretation Comments UA WBC (test code = no gt See_Comment [Automa fabiano message] The UA WBC) system which ge nerated this result transmit fabiano reference range : <=5. The reference range was not used to interpr et this result as aleks l/abnormal. [facility] [id number] 23:55:00 Test Item Value Reference Range Interpretation Comments UA RBC (test code = no gt See_Comment [Automa fabiano message] The UA RBC) system which ge nerated this result transmit fabiano reference range : <=2. The reference range was not used to interpr et this result as aleks l/abnormal. [facility] [id number] 23:55:00 Test Item Value Reference Range Interpretation Comments UA Bacteria (test code = UA Occasional /HPF Bacteria) [facility] [id number] 23:55:00 Test Item Value Reference Range Interpretation Comments UA Mucus (test code = UA Mucus) Few /LPF [facility] [id number] 23:55:00 Test Item Value Reference Range Interpretation Comments Source Strep (test code Urine *NA*(04/11/22 = Source Strep) 6:55 PM) [facility] [id number] 23:55:00 Test Item Value Reference Range Interpretation Comments Strep pneumoniae Ag Negative (04/11/22 (test code = Strep 6:55 PM) pneumoniae Ag) [facility] [id number] 23:55:00 Test Item Value Reference Range Interpretation Comments UA Color (test code = Yellow *NA*(04/11/22 UA Color) 6:55 PM) [facility] [id number] 23:55:00 Test Item Value Reference Range Interpretation Comments UA Turbidity (test code = Clear (04/11/22 6:55 UA Turbidity) PM) [facility] [id number] 23:55:00 Test Item Value Reference Range Interpretation Comments UA Spec Grav (test code = UA Spec 1.015 1 Grav) [facility] [id number] 23:55:00 Test Item Value Reference Range Interpretation Comments UA pH (test code = UA pH) 6.0 1 5.0-8.0 [facility] [id number] 23:55:00 Test Item Value Reference Range Interpretation Comments UA Protein (test code Negative (04/11/22 6:55 = UA Protein) PM) [facility] [id number] 23:55:00 Test Item Value Reference Range Interpretation Comments UA Glucose (test code Negative (04/11/22 6:55 = UA Glucose) PM) [facility] [id number] 23:55:00 Test Item Value Reference Range Interpretation Comments UA Ketones (test code Negative *NA*(04/11/22 = UA Ketones) 6:55 PM) [facility] [id number] 23:55:00 Test Item Value Reference Range Interpretation Comments UA Bili (test code = Negative *NA*(04/11/22 UA Bili) 6:55 PM) [facility] [id number] 23:55:00 Test Item Value Reference Range Interpretation Comments UA Blood (test code = Negative (04/11/22 6:55 UA Blood) PM) [facility] [id number] 23:55:00 Test Item Value Reference Range Interpretation Comments UA Urobilinogen (test code = UA 0.2 0.1-1.0 Urobilinogen) [facility] [id number] 23:55:00 Test Item Value Reference Range Interpretation Comments UA Nitrite (test code Negative (04/11/22 6:55 = UA Nitrite) PM) [facility] [id number] 23:55:00 Test Item Value Reference Range Interpretation Comments UA Leuk Est (test Negative (04/11/22 6:55 code = UA Leuk Est) PM) [facility] [id number] 23:55:00 Test Item Value Reference Range Interpretation Comments UA Sq Epi (test code = UA Sq Occasional /LPF Epi) [facility] [id number] 23:55:00 Test Item Value Reference Range Interpretation Comments UA WBC (test code = no gt See_Comment [Automa fabiano message] The UA WBC) system which ge nerated this result transmit fabiano reference range : <=5. The reference range was not used to interpr et this result as aleks l/abnormal. [facility] [id number] 23:55:00 Test Item Value Reference Range Interpretation Comments UA RBC (test code = no gt See_Comment [Automa fabiano message] The UA RBC) system which ge nerated this result transmit fabiano reference range : <=2. The reference range was not used to interpr et this result as aleks l/abnormal. [facility] [id number] 23:55:00 Test Item Value Reference Range Interpretation Comments UA Bacteria (test code = UA Occasional /HPF Bacteria) [facility] [id number] 23:55:00 Test Item Value Reference Range Interpretation Comments UA Mucus (test code = UA Mucus) Few /LPF [facility] [id number] 23:55:00 Test Item Value Reference Range Interpretation Comments UA Color (test code = Yellow *NA*(04/11/22 UA Color) 6:55 PM) [facility] [id number] 23:55:00 Test Item Value Reference Range Interpretation Comments UA Turbidity (test code = Clear (04/11/22 6:55 UA Turbidity) PM) [facility] [id number] 23:55:00 Test Item Value Reference Range Interpretation Comments UA Spec Grav (test code = UA Spec 1.015 1 Grav) [facility] [id number] 23:55:00 Test Item Value Reference Range Interpretation Comments UA pH (test code = UA pH) 6.0 1 5.0-8.0 [facility] [id number] 23:55:00 Test Item Value Reference Range Interpretation Comments UA Protein (test code Negative (04/11/22 6:55 = UA Protein) PM) [facility] [id number] 23:55:00 Test Item Value Reference Range Interpretation Comments UA Glucose (test code Negative (04/11/22 6:55 = UA Glucose) PM) [facility] [id number] 23:55:00 Test Item Value Reference Range Interpretation Comments UA Ketones (test code Negative *NA*(04/11/22 = UA Ketones) 6:55 PM) [facility] [id number] 23:55:00 Test Item Value Reference Range Interpretation Comments UA Bili (test code = Negative *NA*(04/11/22 UA Bili) 6:55 PM) [facility] [id number] 23:55:00 Test Item Value Reference Range Interpretation Comments UA Blood (test code = Negative (04/11/22 6:55 UA Blood) PM) [facility] [id number] 23:55:00 Test Item Value Reference Range Interpretation Comments UA Urobilinogen (test code = UA 0.2 0.1-1.0 Urobilinogen) [facility] [id number] 23:55:00 Test Item Value Reference Range Interpretation Comments UA Nitrite (test code Negative (04/11/22 6:55 = UA Nitrite) PM) [facility] [id number] 23:55:00 Test Item Value Reference Range Interpretation Comments UA Leuk Est (test Negative (04/11/22 6:55 code = UA Leuk Est) PM) [facility] [id number] 23:55:00 Test Item Value Reference Range Interpretation Comments UA Sq Epi (test code = UA Sq Occasional /LPF Epi) [facility] [id number] 23:55:00 Test Item Value Reference Range Interpretation Comments UA WBC (test code = no gt See_Comment [Automa fabiano message] The UA WBC) system which ge nerated this result transmit fabiano reference range : <=5. The reference range was not used to interpr et this result as aleks l/abnormal. [facility] [id number] 23:55:00 Test Item Value Reference Range Interpretation Comments UA RBC (test code = no gt See_Comment [Automa fabiano message] The UA RBC) system which ge nerated this result transmit fabiano reference range : <=2. The reference range was not used to interpr et this result as aleks l/abnormal. [facility] [id number] 23:55:00 Test Item Value Reference Range Interpretation Comments UA Bacteria (test code = UA Occasional /HPF Bacteria) [facility] [id number] 23:55:00 Test Item Value Reference Range Interpretation Comments UA Mucus (test code = UA Mucus) Few /LPF [facility] [id number] 23:55:00 Test Item Value Reference Range Interpretation Comments Source Strep (test code Urine *NA*(04/11/22 = Source Strep) 6:55 PM) [facility] [id number] 23:55:00 Test Item Value Reference Range Interpretation Comments Strep pneumoniae Ag Negative (04/11/22 (test code = Strep 6:55 PM) pneumoniae Ag) [facility] [id number] 23:55:00 Test Item Value Reference Range Interpretation Comments UA Color (test code = Yellow *NA*(04/11/22 UA Color) 6:55 PM) [facility] [id number] 23:55:00 Test Item Value Reference Range Interpretation Comments UA Turbidity (test code = Clear (04/11/22 6:55 UA Turbidity) PM) [facility] [id number] 23:55:00 Test Item Value Reference Range Interpretation Comments UA Spec Grav (test code = UA Spec 1.015 1 Grav) [facility] [id number] 23:55:00 Test Item Value Reference Range Interpretation Comments UA pH (test code = UA pH) 6.0 1 5.0-8.0 [facility] [id number] 23:55:00 Test Item Value Reference Range Interpretation Comments UA Protein (test code Negative (04/11/22 6:55 = UA Protein) PM) [facility] [id number] 23:55:00 Test Item Value Reference Range Interpretation Comments UA Glucose (test code Negative (04/11/22 6:55 = UA Glucose) PM) [facility] [id number] 23:55:00 Test Item Value Reference Range Interpretation Comments UA Ketones (test code Negative *NA*(04/11/22 = UA Ketones) 6:55 PM) [facility] [id number] 23:55:00 Test Item Value Reference Range Interpretation Comments UA Bili (test code = Negative *NA*(04/11/22 UA Bili) 6:55 PM) [facility] [id number] 23:55:00 Test Item Value Reference Range Interpretation Comments UA Blood (test code = Negative (04/11/22 6:55 UA Blood) PM) [facility] [id number] 23:55:00 Test Item Value Reference Range Interpretation Comments UA Urobilinogen (test code = UA 0.2 0.1-1.0 Urobilinogen) [facility] [id number] 23:55:00 Test Item Value Reference Range Interpretation Comments UA Nitrite (test code Negative (04/11/22 6:55 = UA Nitrite) PM) [facility] [id number] 23:55:00 Test Item Value Reference Range Interpretation Comments UA Leuk Est (test Negative (04/11/22 6:55 code = UA Leuk Est) PM) [id number] 23:55:00 Test Item Value Reference Range Interpretation Comments UA Sq Epi (test code = UA Sq Occasional /LPF Epi) [facility] [id number] 23:55:00 Test Item Value Reference Range Interpretation Comments UA WBC (test code = no gt See_Comment [Automa fabiano message] The UA WBC) system which ge nerated this result transmit fabiano reference range : <=5. The reference range was not used to interpr et this result as aleks l/abnormal. [facility] [id number] 23:55:00 Test Item Value Reference Range Interpretation Comments UA RBC (test code = no gt See_Comment [Automa fabiano message] The UA RBC) system which ge nerated this result transmit fabiano reference range : <=2. The reference range was not used to interpr et this result as aleks l/abnormal. [facility] [id number] 23:55:00 Test Item Value Reference Range Interpretation Comments UA Bacteria (test code = UA Occasional /HPF Bacteria) [facility] [id number] 23:55:00 Test Item Value Reference Range Interpretation Comments UA Mucus (test code = UA Mucus) Few /LPF [facility] [id number] 23:55:00 Test Item Value Reference Range Interpretation Comments UA Color (test code = Yellow *NA*(04/11/22 UA Color) 6:55 PM) [facility] [id number] 23:55:00 Test Item Value Reference Range Interpretation Comments UA Turbidity (test code = Clear (04/11/22 6:55 UA Turbidity) PM) [facility] [id number] 23:55:00 Test Item Value Reference Range Interpretation Comments UA Spec Grav (test code = UA Spec 1.015 1 Grav) [facility] [id number] 23:55:00 Test Item Value Reference Range Interpretation Comments UA pH (test code = UA pH) 6.0 1 5.0-8.0 [facility] [id number] 23:55:00 Test Item Value Reference Range Interpretation Comments UA Protein (test code Negative (04/11/22 6:55 = UA Protein) PM) [facility] [id number] 23:55:00 Test Item Value Reference Range Interpretation Comments UA Glucose (test code Negative (04/11/22 6:55 = UA Glucose) PM) [facility] [id number] 23:55:00 Test Item Value Reference Range Interpretation Comments UA Ketones (test code Negative *NA*(04/11/22 = UA Ketones) 6:55 PM) [facility] [id number] 23:55:00 Test Item Value Reference Range Interpretation Comments UA Bili (test code = Negative *NA*(04/11/22 UA Bili) 6:55 PM) [facility] [id number] 23:55:00 Test Item Value Reference Range Interpretation Comments UA Blood (test code = Negative (04/11/22 6:55 UA Blood) PM) [facility] [id number] 23:55:00 Test Item Value Reference Range Interpretation Comments UA Urobilinogen (test code = UA 0.2 0.1-1.0 Urobilinogen) [facility] [id number] 23:55:00 Test Item Value Reference Range Interpretation Comments UA Nitrite (test code Negative (04/11/22 6:55 = UA Nitrite) PM) [facility] [id number] 23:55:00 Test Item Value Reference Range Interpretation Comments UA Leuk Est (test Negative (04/11/22 6:55 code = UA Leuk Est) PM) [facility] [id number] 23:55:00 Test Item Value Reference Range Interpretation Comments UA Sq Epi (test code = UA Sq Occasional /LPF Epi) [facility] [id number] 23:55:00 Test Item Value Reference Range Interpretation Comments UA WBC (test code = no gt See_Comment [Automa fabiano message] The UA WBC) system which ge nerated this result transmit fabiano reference range : <=5. The reference range was not used to interpr et this result as aleks l/abnormal. [facility] [id number] 23:55:00 Test Item Value Reference Range Interpretation Comments UA RBC (test code = no gt See_Comment [Automa fabiano message] The UA RBC) system which ge nerated this result transmit fabiano reference range : <=2. The reference range was not used to interpr et this result as aleks l/abnormal. [facility] [id number] 23:55:00 Test Item Value Reference Range Interpretation Comments UA Bacteria (test code = UA Occasional /HPF Bacteria) [facility] [id number] 23:55:00 Test Item Value Reference Range Interpretation Comments UA Mucus (test code = UA Mucus) Few /LPF [facility] [id number] 23:55:00 Test Item Value Reference Range Interpretation Comments Source Strep (test code Urine *NA*(04/11/22 = Source Strep) 6:55 PM) [facility] [id number] 23:55:00 Test Item Value Reference Range Interpretation Comments Strep pneumoniae Ag Negative (04/11/22 (test code = Strep 6:55 PM) pneumoniae Ag) [facility] [id number] 23:55:00 Test Item Value Reference Range Interpretation Comments UA Color (test code = Yellow *NA*(04/11/22 UA Color) 6:55 PM) [facility] [id number] 23:55:00 Test Item Value Reference Range Interpretation Comments UA Turbidity (test code = Clear (04/11/22 6:55 UA Turbidity) PM) [facility] [id number] 23:55:00 Test Item Value Reference Range Interpretation Comments UA Spec Grav (test code = UA Spec 1.015 1 Grav) [facility] [id number] 23:55:00 Test Item Value Reference Range Interpretation Comments UA pH (test code = UA pH) 6.0 1 5.0-8.0 [facility] [id number] 23:55:00 Test Item Value Reference Range Interpretation Comments UA Protein (test code Negative (04/11/22 6:55 = UA Protein) PM) [facility] [id number] 23:55:00 Test Item Value Reference Range Interpretation Comments UA Glucose (test code Negative (04/11/22 6:55 = UA Glucose) PM) [facility] [id number] 23:55:00 Test Item Value Reference Range Interpretation Comments UA Ketones (test code Negative *NA*(04/11/22 = UA Ketones) 6:55 PM) [facility] [id number] 23:55:00 Test Item Value Reference Range Interpretation Comments UA Bili (test code = Negative *NA*(04/11/22 UA Bili) 6:55 PM) [facility] [id number] 23:55:00 Test Item Value Reference Range Interpretation Comments UA Blood (test code = Negative (04/11/22 6:55 UA Blood) PM) [facility] [id number] 23:55:00 Test Item Value Reference Range Interpretation Comments UA Urobilinogen (test code = UA 0.2 0.1-1.0 Urobilinogen) [facility] [id number] 23:55:00 Test Item Value Reference Range Interpretation Comments UA Nitrite (test code Negative (04/11/22 6:55 = UA Nitrite) PM) [facility] [id number] 23:55:00 Test Item Value Reference Range Interpretation Comments UA Leuk Est (test Negative (04/11/22 6:55 code = UA Leuk Est) PM) [facility] [id number] 23:55:00 Test Item Value Reference Range Interpretation Comments UA Sq Epi (test code = UA Sq Occasional /LPF Epi) [facility] [id number] 23:55:00 Test Item Value Reference Range Interpretation Comments UA WBC (test code = no gt See_Comment [Automa fabiano message] The UA WBC) system which ge nerated this result transmit fabiano reference range : <=5. The reference range was not used to interpr et this result as aleks l/abnormal. [facility] [id number] 23:55:00 Test Item Value Reference Range Interpretation Comments UA RBC (test code = no gt See_Comment [Automa fabiano message] The UA RBC) system which ge nerated this result transmit fabiano reference range : <=2. The reference range was not used to interpr et this result as aleks l/abnormal. [facility] [id number] 23:55:00 Test Item Value Reference Range Interpretation Comments UA Bacteria (test code = UA Occasional /HPF Bacteria) [facility] [id number] 23:55:00 Test Item Value Reference Range Interpretation Comments UA Mucus (test code = UA Mucus) Few /LPF [facility] [id number] 23:55:00 Test Item Value Reference Range Interpretation Comments UA Color (test code = Yellow *NA*(04/11/22 UA Color) 6:55 PM) [facility] [id number] 23:55:00 Test Item Value Reference Range Interpretation Comments UA Turbidity (test code = Clear (04/11/22 6:55 UA Turbidity) PM) [facility] [id number] 23:55:00 Test Item Value Reference Range Interpretation Comments UA Spec Grav (test code = UA Spec 1.015 1 Grav) [facility] [id number] 23:55:00 Test Item Value Reference Range Interpretation Comments UA pH (test code = UA pH) 6.0 1 5.0-8.0 [facility] [id number] 23:55:00 Test Item Value Reference Range Interpretation Comments UA Protein (test code Negative (04/11/22 6:55 = UA Protein) PM) [facility] [id number] 23:55:00 Test Item Value Reference Range Interpretation Comments UA Glucose (test code Negative (04/11/22 6:55 = UA Glucose) PM) [facility] [id number] 23:55:00 Test Item Value Reference Range Interpretation Comments UA Ketones (test code Negative *NA*(04/11/22 = UA Ketones) 6:55 PM) [facility] [id number] 23:55:00 Test Item Value Reference Range Interpretation Comments UA Bili (test code = Negative *NA*(04/11/22 UA Bili) 6:55 PM) [facility] [id number] 23:55:00 Test Item Value Reference Range Interpretation Comments UA Blood (test code = Negative (04/11/22 6:55 UA Blood) PM) [facility] [id number] 23:55:00 Test Item Value Reference Range Interpretation Comments UA Urobilinogen (test code = UA 0.2 0.1-1.0 Urobilinogen) [facility] [id number] 23:55:00 Test Item Value Reference Range Interpretation Comments UA Nitrite (test code Negative (04/11/22 6:55 = UA Nitrite) PM) [facility] [id number] 23:55:00 Test Item Value Reference Range Interpretation Comments UA Leuk Est (test Negative (04/11/22 6:55 code = UA Leuk Est) PM) [facility] [id number] 23:55:00 Test Item Value Reference Range Interpretation Comments UA Sq Epi (test code = UA Sq Occasional /LPF Epi) [facility] [id number] 23:55:00 Test Item Value Reference Range Interpretation Comments UA WBC (test code = no gt See_Comment [Automa fabiano message] The UA WBC) system which ge nerated this result transmit fabiano reference range : <=5. The reference range was not used to interpr et this result as aleks l/abnormal. [facility] [id number] 23:55:00 Test Item Value Reference Range Interpretation Comments UA RBC (test code = no gt See_Comment [Automa fabiano message] The UA RBC) system which ge nerated this result transmit fabiano reference range : <=2. The reference range was not used to interpr et this result as aleks l/abnormal. [facility] [id number] 23:55:00 Test Item Value Reference Range Interpretation Comments UA Bacteria (test code = UA Occasional /HPF Bacteria) [facility] [id number] 23:55:00 Test Item Value Reference Range Interpretation Comments UA Mucus (test code = UA Mucus) Few /LPF [facility] [id number] 23:55:00 Test Item Value Reference Range Interpretation Comments Source Strep (test code Urine *NA*(04/11/22 = Source Strep) 6:55 PM) [facility] [id number] 23:55:00 Test Item Value Reference Range Interpretation Comments Strep pneumoniae Ag Negative (04/11/22 (test code = Strep 6:55 PM) pneumoniae Ag) [facility] AND [id number] 23:55:00 Test Item Value Reference Range Interpretation Comments UA Color (test code = Yellow *NA*(04/11/22 UA Color) 6:55 PM) [facility] [id number] 23:55:00 Test Item Value Reference Range Interpretation Comments UA Turbidity (test code = Clear (04/11/22 6:55 UA Turbidity) PM) [facility] [id number] 23:55:00 Test Item Value Reference Range Interpretation Comments UA Spec Grav (test code = UA Spec 1.015 1 Grav) [facility] [id number] 23:55:00 Test Item Value Reference Range Interpretation Comments UA pH (test code = UA pH) 6.0 1 5.0-8.0 [facility] [id number] 23:55:00 Test Item Value Reference Range Interpretation Comments UA Protein (test code Negative (04/11/22 6:55 = UA Protein) PM) [facility] AND [id number] 23:55:00 Test Item Value Reference Range Interpretation Comments UA Glucose (test code Negative (04/11/22 6:55 = UA Glucose) PM) [facility] [id number] 23:55:00 Test Item Value Reference Range Interpretation Comments UA Ketones (test code Negative *NA*(04/11/22 = UA Ketones) 6:55 PM) [facility] [id number] 23:55:00 Test Item Value Reference Range Interpretation Comments UA Bili (test code = Negative *NA*(04/11/22 UA Bili) 6:55 PM) [facility] [id number] 23:55:00 Test Item Value Reference Range Interpretation Comments UA Blood (test code = Negative (04/11/22 6:55 UA Blood) PM) [facility] [id number] 23:55:00 Test Item Value Reference Range Interpretation Comments UA Urobilinogen (test code = UA 0.2 0.1-1.0 Urobilinogen) [facility] [id number] 23:55:00 Test Item Value Reference Range Interpretation Comments UA Nitrite (test code Negative (04/11/22 6:55 = UA Nitrite) PM) [facility] [id number] 23:55:00 Test Item Value Reference Range Interpretation Comments UA Leuk Est (test Negative (04/11/22 6:55 code = UA Leuk Est) PM) [facility] [id number] 23:55:00 Test Item Value Reference Range Interpretation Comments UA Sq Epi (test code = UA Sq Occasional /LPF Epi) [facility] [id number] 23:55:00 Test Item Value Reference Range Interpretation Comments UA WBC (test code = no gt See_Comment [Automa fabiano message] The UA WBC) system which ge nerated this result transmit fabiano reference range : <=5. The reference range was not used to interpr et this result as aleks l/abnormal. [facility] [id number] 23:55:00 Test Item Value Reference Range Interpretation Comments UA RBC (test code = no gt See_Comment [Automa fabiano message] The UA RBC) system which ge nerated this result transmit fabiano reference range : <=2. The reference range was not used to interpr et this result as aleks l/abnormal. [facility] [id number] 23:55:00 Test Item Value Reference Range Interpretation Comments UA Bacteria (test code = UA Occasional /HPF Bacteria) [facility] [id number] 23:55:00 Test Item Value Reference Range Interpretation Comments UA Mucus (test code = UA Mucus) Few /LPF [facility] [id number] 23:55:00 Test Item Value Reference Range Interpretation Comments UA Color (test code = Yellow *NA*(04/11/22 UA Color) 6:55 PM) [facility] [id number] 23:55:00 Test Item Value Reference Range Interpretation Comments UA Turbidity (test code = Clear (04/11/22 6:55 UA Turbidity) PM) [facility] [id number] 23:55:00 Test Item Value Reference Range Interpretation Comments UA Spec Grav (test code = UA Spec 1.015 1 Grav) [facility] [id number] 23:55:00 Test Item Value Reference Range Interpretation Comments UA pH (test code = UA pH) 6.0 1 5.0-8.0 [facility] [id number] 23:55:00 Test Item Value Reference Range Interpretation Comments UA Protein (test code Negative (04/11/22 6:55 = UA Protein) PM) [facility] [id number] 23:55:00 Test Item Value Reference Range Interpretation Comments UA Glucose (test code Negative (04/11/22 6:55 = UA Glucose) PM) [facility] [id number] 23:55:00 Test Item Value Reference Range Interpretation Comments UA Ketones (test code Negative *NA*(04/11/22 = UA Ketones) 6:55 PM) [facility] [id number] 23:55:00 Test Item Value Reference Range Interpretation Comments UA Bili (test code = Negative *NA*(04/11/22 UA Bili) 6:55 PM) [facility] [id number] 23:55:00 Test Item Value Reference Range Interpretation Comments UA Blood (test code = Negative (04/11/22 6:55 UA Blood) PM) [facility] [id number] 23:55:00 Test Item Value Reference Range Interpretation Comments UA Urobilinogen (test code = UA 0.2 0.1-1.0 Urobilinogen) [facility] [id number] 23:55:00 Test Item Value Reference Range Interpretation Comments UA Nitrite (test code Negative (04/11/22 6:55 = UA Nitrite) PM) [facility] AND [id number] 23:55:00 Test Item Value Reference Range Interpretation Comments UA Leuk Est (test Negative (04/11/22 6:55 code = UA Leuk Est) PM) [facility] AND [id number] 23:55:00 Test Item Value Reference Range Interpretation Comments UA Sq Epi (test code = UA Sq Occasional /LPF Epi) [facility] [id number] 23:55:00 Test Item Value Reference Range Interpretation Comments UA WBC (test code = no gt See_Comment [Automa fabiano message] The UA WBC) system which Biocycle nerated this result transmit fabiano reference range : <=5. The reference range was not used to interpr et this result as aleks l/abnormal. [facility] AND [id number] 23:55:00 Test Item Value Reference Range Interpretation Comments UA RBC (test code = no gt See_Comment [Automa fabiano message] The UA RBC) system which Biocycle nerated this result transmit fabiano reference range : <=2. The reference range was not used to interpr et this result as aleks l/abnormal. [facility] AND [id number] 23:55:00 Test Item Value Reference Range Interpretation Comments UA Bacteria (test code = UA Occasional /HPF Bacteria) [facility] [id number] 23:55:00 Test Item Value Reference Range Interpretation Comments UA Mucus (test code = UA Mucus) Few /LPF [facility] [id number] 23:20:33 Test Item Value Reference Range Interpretation [...] ligament and collateral vessels suggest SVC occlusion. [facility] [id number] 23:20:33 Test Item Value Reference Range Interpretation [...] ligament and collateral vessels suggest SVC occlusion. [id number] 23:20:33 Test Item Value Reference Range Interpretation [...] ligament and collateral vessels suggest SVC occlusion. [facility] [id number] 23:20:33 Test Item Value Reference Range Interpretation [...] ligament and collateral vessels suggest SVC occlusion. [facility] [id number] 23:20:33 Test Item Value Reference Range Interpretation [...] ligament and collateral vessels suggest SVC occlusion. [facility] [id number] 23:20:33 Test Item Value Reference Range Interpretation [...] ligament and collateral vessels suggest SVC occlusion. [facility] [id number] 23:20:33 Test Item Value Reference Range Interpretation [...] ligament and collateral vessels suggest SVC occlusion. [facility] Ma[id number] 23:20:33 Test Item Value Reference Range Interpretation [...] ligament and collateral vessels suggest SVC occlusion. [id number] 23:20:33 Test Item Value Reference Range Interpretation [...] ligament and collateral vessels suggest SVC occlusion. [facility] [id number] 23:20:33 Test Item Value Reference Range Interpretation [...] ligament and collateral vessels suggest SVC occlusion. [facility] Ho[id number] 23:20:33 Test Item Value Reference Range Interpretation [...] ligament and collateral vessels suggest SVC occlusion. [facility] MarshallZvmbtxnZWJYDT4554-06-84 23:20:33 Test Item Value Reference Range Interpretation [...] ligament and collateral vessels suggest SVC occlusion. [facility] [id number] 23:20:33 Test Item Value Reference Range Interpretation [...] ligament and collateral vessels suggest SVC occlusion. [facility] Ma[id number] 23:20:33 Test Item Value Reference Range Interpretation [...] ligament and collateral vessels suggest SVC occlusion. [facility] Ma[id number] 23:20:33 Test Item Value Reference Range Interpretation [...] ligament and collateral vessels suggest SVC occlusion. [facility] [id number] 23:20:33 Test Item Value Reference Range Interpretation [...] ligament and collateral vessels suggest SVC occlusion. [facility] Marsha[id number] 17:16:00 Test Item Value Reference Range Interpretation Comments Coronavirus (COVID-19) Not Detected OSCAR (test code = (04/11/22 12:16 PM) Coronavirus (COVID-19) OSCAR) [id number] 17:16:00 Test Item Value Reference Range Interpretation Comments Coronavirus (COVID-19) Not Detected OSCAR (test code = (04/11/22 12:16 PM) Coronavirus (COVID-19) OSCAR) [facility]2022-10-13 17:16:00 Test Item Value Reference Range Interpretation Comments Source Respiratory Nasophrngl Swb Panel PCR (test code = *NA*(04/11/22 12:16 Source Respiratory PM) Panel PCR) [facility]2022-10-13 17:16:00 Test Item Value Reference Range Interpretation Comments Influenza A PCR (test Negative *NA*(04/11/22 code = Influenza A PCR) 12:16 PM) [facility]2022-10-13 17:16:00 Test Item Value Reference Range Interpretation Comments Influenza B PCR (test Negative *NA*(04/11/22 code = Influenza B PCR) 12:16 PM) [facility]2022-10-13 17:16:00 Test Item Value Reference Range Interpretation Comments RSV PCR (test code = Negative *NA*(04/11/22 RSV PCR) 12:16 PM) [facility]2022-10-13 17:16:00 Test Item Value Reference Range Interpretation Comments Source Respiratory Nasophrngl Swb Panel PCR (test code = *NA*(04/11/22 12:16 Source Respiratory PM) Panel PCR) [facility]2022-10-13 17:16:00 Test Item Value Reference Range Interpretation Comments Influenza A PCR (test Negative *NA*(04/11/22 code = Influenza A PCR) 12:16 PM) [id number] 17:16:00 Test Item Value Reference Range Interpretation Comments Influenza B PCR (test Negative *NA*(04/11/22 code = Influenza B PCR) 12:16 PM) [place] [id number] 17:16:00 Test Item Value Reference Range Interpretation Comments RSV PCR (test code = Negative *NA*(04/11/22 RSV PCR) 12:16 PM) [facility] [id number] 17:16:00 Test Item Value Reference Range Interpretation Comments Coronavirus (COVID-19) Not Detected OSCAR (test code = (04/11/22 12:16 PM) Coronavirus (COVID-19) OSCAR) [facility] [id number] 17:16:00 Test Item Value Reference Range Interpretation Comments Coronavirus (COVID-19) Not Detected OSCAR (test code = (04/11/22 12:16 PM) Coronavirus (COVID-19) OSCAR) [facility]2022-10-13 17:16:00 Test Item Value Reference Range Interpretation Comments Source Respiratory Nasophrngl Swb Panel PCR (test code = *NA*(04/11/22 12:16 Source Respiratory PM) Panel PCR) [facility]2022-10-13 17:16:00 Test Item Value Reference Range Interpretation Comments Influenza A PCR (test Negative *NA*(04/11/22 code = Influenza A PCR) 12:16 PM) [facility] [facility] 17:16:00 Test Item Value Reference Range Interpretation Comments Influenza B PCR (test Negative *NA*(04/11/22 code = Influenza B PCR) 12:16 PM) [facility]2022-10-13 17:16:00 Test Item Value Reference Range Interpretation Comments RSV PCR (test code = Negative *NA*(04/11/22 RSV PCR) 12:16 PM) [facility]2022-10-13 17:16:00 Test Item Value Reference Range Interpretation Comments Source Respiratory Nasophrngl Swb Panel PCR (test code = *NA*(04/11/22 12:16 Source Respiratory PM) Panel PCR) [facility]2022-10-13 17:16:00 Test Item Value Reference Range Interpretation Comments Influenza A PCR (test Negative *NA*(04/11/22 code = Influenza A PCR) 12:16 PM) [facility]2022-10-13 17:16:00 Test Item Value Reference Range Interpretation Comments Influenza B PCR (test Negative *NA*(04/11/22 code = Influenza B PCR) 12:16 PM) [facility] [id number] 17:16:00 Test Item Value Reference Range Interpretation Comments RSV PCR (test code = Negative *NA*(04/11/22 RSV PCR) 12:16 PM) [id number] 17:16:00 Test Item Value Reference Range Interpretation Comments Coronavirus (COVID-19) Not Detected OSCAR (test code = (04/11/22 12:16 PM) Coronavirus (COVID-19) OSCAR) [facility] [id number] 17:16:00 Test Item Value Reference Range Interpretation Comments Coronavirus (COVID-19) Not Detected OSCAR (test code = (04/11/22 12:16 PM) Coronavirus (COVID-19) OSCAR) [facility]2022-10-13 17:16:00 Test Item Value Reference Range Interpretation Comments Source Respiratory Nasophrngl Swb Panel PCR (test code = *NA*(04/11/22 12:16 Source Respiratory PM) Panel PCR) [facility]2022-10-13 17:16:00 Test Item Value Reference Range Interpretation Comments Influenza A PCR (test Negative *NA*(04/11/22 code = Influenza A PCR) 12:16 PM) [id number] 17:16:00 Test Item Value Reference Range Interpretation Comments Influenza B PCR (test Negative *NA*(04/11/22 code = Influenza B PCR) 12:16 PM) [id number] 17:16:00 Test Item Value Reference Range Interpretation Comments RSV PCR (test code = Negative *NA*(04/11/22 RSV PCR) 12:16 PM) [facility]2022-10-13 17:16:00 Test Item Value Reference Range Interpretation Comments Source Respiratory Nasophrngl Swb Panel PCR (test code = *NA*(04/11/22 12:16 Source Respiratory PM) Panel PCR) [id number] 17:16:00 Test Item Value Reference Range Interpretation Comments Influenza A PCR (test Negative *NA*(04/11/22 code = Influenza A PCR) 12:16 PM) [facility] [id number] 17:16:00 Test Item Value Reference Range Interpretation Comments Influenza B PCR (test Negative *NA*(04/11/22 code = Influenza B PCR) 12:16 PM) [place] [id number] 17:16:00 Test Item Value Reference Range Interpretation Comments RSV PCR (test code = Negative *NA*(04/11/22 RSV PCR) 12:16 PM) [id number] 17:16:00 Test Item Value Reference Range Interpretation Comments Coronavirus (COVID-19) Not Detected OSCAR (test code = (04/11/22 12:16 PM) Coronavirus (COVID-19) OSCAR) [facility] C[id number] 17:16:00 Test Item Value Reference Range Interpretation Comments Coronavirus (COVID-19) Not Detected OSCAR (test code = (04/11/22 12:16 PM) Coronavirus (COVID-19) OSCAR) [facility]2022-10-13 17:16:00 Test Item Value Reference Range Interpretation Comments Source Respiratory Nasophrngl Swb Panel PCR (test code = *NA*(04/11/22 12:16 Source Respiratory PM) Panel PCR) [facility]2022-10-13 17:16:00 Test Item Value Reference Range Interpretation Comments Influenza A PCR (test Negative *NA*(04/11/22 code = Influenza A PCR) 12:16 PM) [facility]2022-10-13 17:16:00 Test Item Value Reference Range Interpretation Comments Influenza B PCR (test Negative *NA*(04/11/22 code = Influenza B PCR) 12:16 PM) [facility]2022-10-13 17:16:00 Test Item Value Reference Range Interpretation Comments RSV PCR (test code = Negative *NA*(04/11/22 RSV PCR) 12:16 PM) [place] [id number] 17:16:00 Test Item Value Reference Range Interpretation Comments Source Respiratory Nasophrngl Swb Panel PCR (test code = *NA*(04/11/22 12:16 Source Respiratory PM) Panel PCR) [facility]2022-10-13 17:16:00 Test Item Value Reference Range Interpretation Comments Influenza A PCR (test Negative *NA*(04/11/22 code = Influenza A PCR) 12:16 PM) [facility]2022-10-13 17:16:00 Test Item Value Reference Range Interpretation Comments Influenza B PCR (test Negative *NA*(04/11/22 code = Influenza B PCR) 12:16 PM) [facility]2022-10-13 17:16:00 Test Item Value Reference Range Interpretation Comments RSV PCR (test code = Negative *NA*(04/11/22 RSV PCR) 12:16 PM) [facility] [id number] 17:16:00 Test Item Value Reference Range Interpretation Comments Coronavirus (COVID-19) Not Detected OSCAR (test code = (04/11/22 12:16 PM) Coronavirus (COVID-19) OSCAR) [facility] [id number] 17:16:00 Test Item Value Reference Range Interpretation Comments Coronavirus (COVID-19) Not Detected OSCAR (test code = (04/11/22 12:16 PM) Coronavirus (COVID-19) OSCAR) [facility]2022-10-13 17:16:00 Test Item Value Reference Range Interpretation Comments Source Respiratory Nasophrngl Swb Panel PCR (test code = *NA*(04/11/22 12:16 Source Respiratory PM) Panel PCR) [facility]2022-10-13 17:16:00 Test Item Value Reference Range Interpretation Comments Influenza A PCR (test Negative *NA*(04/11/22 code = Influenza A PCR) 12:16 PM) [facility]2022-10-13 17:16:00 Test Item Value Reference Range Interpretation Comments Influenza B PCR (test Negative *NA*(04/11/22 code = Influenza B PCR) 12:16 PM) [place] [id number] 17:16:00 Test Item Value Reference Range Interpretation Comments RSV PCR (test code = Negative *NA*(04/11/22 RSV PCR) 12:16 PM) [place] [id number] 17:16:00 Test Item Value Reference Range Interpretation Comments Source Respiratory Nasophrngl Swb Panel PCR (test code = *NA*(04/11/22 12:16 Source Respiratory PM) Panel PCR) [facility]2022-10-13 17:16:00 Test Item Value Reference Range Interpretation Comments Influenza A PCR (test Negative *NA*(04/11/22 code = Influenza A PCR) 12:16 PM) [facility]2022-10-13 17:16:00 Test Item Value Reference Range Interpretation Comments Influenza B PCR (test Negative *NA*(04/11/22 code = Influenza B PCR) 12:16 PM) [facility]2022-10-13 17:16:00 Test Item Value Reference Range Interpretation Comments RSV PCR (test code = Negative *NA*(04/11/22 RSV PCR) 12:16 PM) [facility] Cent[id number] 17:16:00 Test Item Value Reference Range Interpretation Comments Coronavirus (COVID-19) Not Detected OSCAR (test code = (04/11/22 12:16 PM) Coronavirus (COVID-19) OSCAR) [facility] [id number] 17:16:00 Test Item Value Reference Range Interpretation Comments Coronavirus (COVID-19) Not Detected OSCAR (test code = (04/11/22 12:16 PM) Coronavirus (COVID-19) OSCAR) [facility]2022-10-13 17:16:00 Test Item Value Reference Range Interpretation Comments Source Respiratory Nasophrngl Swb Panel PCR (test code = *NA*(04/11/22 12:16 Source Respiratory PM) Panel PCR) [facility]2022-10-13 17:16:00 Test Item Value Reference Range Interpretation Comments Influenza A PCR (test Negative *NA*(04/11/22 code = Influenza A PCR) 12:16 PM) [place] [id number] 17:16:00 Test Item Value Reference Range Interpretation Comments Influenza B PCR (test Negative *NA*(04/11/22 code = Influenza B PCR) 12:16 PM) [facility]2022-10-13 17:16:00 Test Item Value Reference Range Interpretation Comments RSV PCR (test code = Negative *NA*(04/11/22 RSV PCR) 12:16 PM) [facility] [id number] 17:16:00 Test Item Value Reference Range Interpretation Comments Source Respiratory Nasophrngl Swb Panel PCR (test code = *NA*(04/11/22 12:16 Source Respiratory PM) Panel PCR) [facility]2022-10-13 17:16:00 Test Item Value Reference Range Interpretation Comments Influenza A PCR (test Negative *NA*(04/11/22 code = Influenza A PCR) 12:16 PM) [facility]2022-10-13 17:16:00 Test Item Value Reference Range Interpretation Comments Influenza B PCR (test Negative *NA*(04/11/22 code = Influenza B PCR) 12:16 PM) [place] [id number] 17:16:00 Test Item Value Reference Range Interpretation Comments RSV PCR (test code = Negative *NA*(04/11/22 RSV PCR) 12:16 PM) [facility] [id number] 17:16:00 Test Item Value Reference Range Interpretation Comments Coronavirus (COVID-19) Not Detected OSCAR (test code = (04/11/22 12:16 PM) Coronavirus (COVID-19) OSCAR) [facility] [id number] 17:16:00 Test Item Value Reference Range Interpretation Comments Coronavirus (COVID-19) Not Detected OSCAR (test code = (04/11/22 12:16 PM) Coronavirus (COVID-19) OSCAR) [facility]2022-10-13 17:16:00 Test Item Value Reference Range Interpretation Comments Source Respiratory Nasophrngl Swb Panel PCR (test code = *NA*(04/11/22 12:16 Source Respiratory PM) Panel PCR) [facility]2022-10-13 17:16:00 Test Item Value Reference Range Interpretation Comments Influenza A PCR (test Negative *NA*(04/11/22 code = Influenza A PCR) 12:16 PM) [facility]2022-10-13 17:16:00 Test Item Value Reference Range Interpretation Comments Influenza B PCR (test Negative *NA*(04/11/22 code = Influenza B PCR) 12:16 PM) [facility] [id number] 17:16:00 Test Item Value Reference Range Interpretation Comments RSV PCR (test code = Negative *NA*(04/11/22 RSV PCR) 12:16 PM) [facility]2022-10-13 17:16:00 Test Item Value Reference Range Interpretation Comments Source Respiratory Nasophrngl Swb Panel PCR (test code = *NA*(04/11/22 12:16 Source Respiratory PM) Panel PCR) [facility]2022-10-13 17:16:00 Test Item Value Reference Range Interpretation Comments Influenza A PCR (test Negative *NA*(04/11/22 code = Influenza A PCR) 12:16 PM) [facility]2022-10-13 17:16:00 Test Item Value Reference Range Interpretation Comments Influenza B PCR (test Negative *NA*(04/11/22 code = Influenza B PCR) 12:16 PM) [facility]2022-10-13 17:16:00 Test Item Value Reference Range Interpretation Comments RSV PCR (test code = Negative *NA*(04/11/22 RSV PCR) 12:16 PM) [facility] M[id number] 17:16:00 Test Item Value Reference Range Interpretation Comments Coronavirus (COVID-19) Not Detected OSCAR (test code = (04/11/22 12:16 PM) Coronavirus (COVID-19) OSCAR) [facility] M[id number] 17:16:00 Test Item Value Reference Range Interpretation Comments Coronavirus (COVID-19) Not Detected OSCAR (test code = (04/11/22 12:16 PM) Coronavirus (COVID-19) OSCAR) [facility]2022-10-13 17:16:00 Test Item Value Reference Range Interpretation Comments Source Respiratory Nasophrngl Swb Panel PCR (test code = *NA*(04/11/22 12:16 Source Respiratory PM) Panel PCR) [facility]2022-10-13 17:16:00 Test Item Value Reference Range Interpretation Comments Influenza A PCR (test Negative *NA*(04/11/22 code = Influenza A PCR) 12:16 PM) [place] [id number] 17:16:00 Test Item Value Reference Range Interpretation Comments Influenza B PCR (test Negative *NA*(04/11/22 code = Influenza B PCR) 12:16 PM) [facility]2022-10-13 17:16:00 Test Item Value Reference Range Interpretation Comments RSV PCR (test code = Negative *NA*(04/11/22 RSV PCR) 12:16 PM) [facility]2022-10-13 17:16:00 Test Item Value Reference Range Interpretation Comments Source Respiratory Nasophrngl Swb Panel PCR (test code = *NA*(04/11/22 12:16 Source Respiratory PM) Panel PCR) [facility]2022-10-13 17:16:00 Test Item Value Reference Range Interpretation Comments Influenza A PCR (test Negative *NA*(04/11/22 code = Influenza A PCR) 12:16 PM) [facility]2022-10-13 17:16:00 Test Item Value Reference Range Interpretation Comments Influenza B PCR (test Negative *NA*(04/11/22 code = Influenza B PCR) 12:16 PM) [facility]2022-10-13 17:16:00 Test Item Value Reference Range Interpretation Comments RSV PCR (test code = Negative *NA*(04/11/22 RSV PCR) 12:16 PM) [facility] [id number] 17:16:00 Test Item Value Reference Range Interpretation Comments Coronavirus (COVID-19) Not Detected OSCAR (test code = (04/11/22 12:16 PM) Coronavirus (COVID-19) OSCAR) [facility] [id number] 17:16:00 Test Item Value Reference Range Interpretation Comments Coronavirus (COVID-19) Not Detected OSCAR (test code = (04/11/22 12:16 PM) Coronavirus (COVID-19) OSCAR) [facility]2022-10-13 17:16:00 Test Item Value Reference Range Interpretation Comments Source Respiratory Nasophrngl Swb Panel PCR (test code = *NA*(04/11/22 12:16 Source Respiratory PM) Panel PCR) [facility]2022-10-13 17:16:00 Test Item Value Reference Range Interpretation Comments Influenza A PCR (test Negative *NA*(04/11/22 code = Influenza A PCR) 12:16 PM) [facility] [id number] 17:16:00 Test Item Value Reference Range Interpretation Comments Influenza B PCR (test Negative *NA*(04/11/22 code = Influenza B PCR) 12:16 PM) [place] [id number] 17:16:00 Test Item Value Reference Range Interpretation Comments RSV PCR (test code = Negative *NA*(04/11/22 RSV PCR) 12:16 PM) [facility]2022-10-13 17:16:00 Test Item Value Reference Range Interpretation Comments Source Respiratory Nasophrngl Swb Panel PCR (test code = *NA*(04/11/22 12:16 Source Respiratory PM) Panel PCR) [facility]2022-10-13 17:16:00 Test Item Value Reference Range Interpretation Comments Influenza A PCR (test Negative *NA*(04/11/22 code = Influenza A PCR) 12:16 PM) [place] [id number] 17:16:00 Test Item Value Reference Range Interpretation Comments Influenza B PCR (test Negative *NA*(04/11/22 code = Influenza B PCR) 12:16 PM) [facility]2022-10-13 17:16:00 Test Item Value Reference Range Interpretation Comments RSV PCR (test code = Negative *NA*(04/11/22 RSV PCR) 12:16 PM) [facility] [id number] 17:16:00 Test Item Value Reference Range Interpretation Comments Coronavirus (COVID-19) Not Detected OSCAR (test code = (04/11/22 12:16 PM) Coronavirus (COVID-19) OSCAR) [facility] M[id number] 17:16:00 Test Item Value Reference Range Interpretation Comments Coronavirus (COVID-19) Not Detected OSCAR (test code = (04/11/22 12:16 PM) Coronavirus (COVID-19) OSCAR) [facility]2022-10-13 17:16:00 Test Item Value Reference Range Interpretation Comments Source Respiratory Nasophrngl Swb Panel PCR (test code = *NA*(04/11/22 12:16 Source Respiratory PM) Panel PCR) [facility] [id number] 17:16:00 Test Item Value Reference Range Interpretation Comments Influenza A PCR (test Negative *NA*(04/11/22 code = Influenza A PCR) 12:16 PM) [facility]2022-10-13 17:16:00 Test Item Value Reference Range Interpretation Comments Influenza B PCR (test Negative *NA*(04/11/22 code = Influenza B PCR) 12:16 PM) [facility]2022-10-13 17:16:00 Test Item Value Reference Range Interpretation Comments RSV PCR (test code = Negative *NA*(04/11/22 RSV PCR) 12:16 PM) [facility]2022-10-13 17:16:00 Test Item Value Reference Range Interpretation Comments Source Respiratory Nasophrngl Swb Panel PCR (test code = *NA*(04/11/22 12:16 Source Respiratory PM) Panel PCR) [facility]2022-10-13 17:16:00 Test Item Value Reference Range Interpretation Comments Influenza A PCR (test Negative *NA*(04/11/22 code = Influenza A PCR) 12:16 PM) [facility]2022-10-13 17:16:00 Test Item Value Reference Range Interpretation Comments Influenza B PCR (test Negative *NA*(04/11/22 code = Influenza B PCR) 12:16 PM) [facility]2022-10-13 17:16:00 Test Item Value Reference Range Interpretation Comments RSV PCR (test code = Negative *NA*(04/11/22 RSV PCR) 12:16 PM) [facility] [id number] 17:16:00 Test Item Value Reference Range Interpretation Comments Coronavirus (COVID-19) Not Detected OSCAR (test code = (04/11/22 12:16 PM) Coronavirus (COVID-19) OSCAR) [facility] [id number] 17:16:00 Test Item Value Reference Range Interpretation Comments Coronavirus (COVID-19) Not Detected OSCAR (test code = (04/11/22 12:16 PM) Coronavirus (COVID-19) OSCAR) [facility] [id number] 17:16:00 Test Item Value Reference Range Interpretation Comments Source Respiratory Nasophrngl Swb Panel PCR (test code = *NA*(04/11/22 12:16 Source Respiratory PM) Panel PCR) [facility] [id number] 17:16:00 Test Item Value Reference Range Interpretation Comments Influenza A PCR (test Negative *NA*(04/11/22 code = Influenza A PCR) 12:16 PM) [facility]2022-10-13 17:16:00 Test Item Value Reference Range Interpretation Comments Influenza B PCR (test Negative *NA*(04/11/22 code = Influenza B PCR) 12:16 PM) [facility]2022-10-13 17:16:00 Test Item Value Reference Range Interpretation Comments RSV PCR (test code = Negative *NA*(04/11/22 RSV PCR) 12:16 PM) [facility]2022-10-13 17:16:00 Test Item Value Reference Range Interpretation Comments Source Respiratory Nasophrngl Swb Panel PCR (test code = *NA*(04/11/22 12:16 Source Respiratory PM) Panel PCR) [facility]2022-10-13 17:16:00 Test Item Value Reference Range Interpretation Comments Influenza A PCR (test Negative *NA*(04/11/22 code = Influenza A PCR) 12:16 PM) [facility]2022-10-13 17:16:00 Test Item Value Reference Range Interpretation Comments Influenza B PCR (test Negative *NA*(04/11/22 code = Influenza B PCR) 12:16 PM) [facility]2022-10-13 17:16:00 Test Item Value Reference Range Interpretation Comments RSV PCR (test code = Negative *NA*(04/11/22 RSV PCR) 12:16 PM) [facility] [id number] 17:16:00 Test Item Value Reference Range Interpretation Comments Coronavirus (COVID-19) Not Detected OSCAR (test code = (04/11/22 12:16 PM) Coronavirus (COVID-19) OSCAR) [facility] M[id number] 17:16:00 Test Item Value Reference Range Interpretation Comments Coronavirus (COVID-19) Not Detected OSCAR (test code = (04/11/22 12:16 PM) Coronavirus (COVID-19) OSCAR) [facility]annMO[facility] [id number] 17:16:00 Test Item Value Reference Range Interpretation Comments Source Respiratory Nasophrngl Swb Panel PCR (test code = *NA*(04/11/22 12:16 Source Respiratory PM) Panel PCR) [facility]annMOLECULAR [id number] 17:16:00 Test Item Value Reference Range Interpretation Comments Influenza A PCR (test Negative *NA*(04/11/22 code = Influenza A PCR) 12:16 PM) [facility]annMO[facility] [id number] 17:16:00 Test Item Value Reference Range Interpretation Comments Influenza B PCR (test Negative *NA*(04/11/22 code = Influenza B PCR) 12:16 PM) [facility]VT[facility] [id number] 17:16:00 Test Item Value Reference Range Interpretation Comments RSV PCR (test code = Negative *NA*(04/11/22 RSV PCR) 12:16 PM) [facility]VTLE[facility] [id number] 17:16:00 Test Item Value Reference Range Interpretation Comments Source Respiratory Nasophrngl Swb Panel PCR (test code = *NA*(04/11/22 12:16 Source Respiratory PM) Panel PCR) [facility]annVTLE[facility] [id number] 17:16:00 Test Item Value Reference Range Interpretation Comments Influenza A PCR (test Negative *NA*(04/11/22 code = Influenza A PCR) 12:16 PM) [facility]annMOLE[facility]ULAR [id number] 17:16:00 Test Item Value Reference Range Interpretation Comments Influenza B PCR (test Negative *NA*(04/11/22 code = Influenza B PCR) 12:16 PM) [facility]annMOLE[facility] [id number] 17:16:00 Test Item Value Reference Range Interpretation Comments RSV PCR (test code = Negative *NA*(04/11/22 RSV PCR) 12:16 PM) [facility] [id number] 17:16:00 Test Item Value Reference Range Interpretation Comments Coronavirus (COVID-19) Not Detected OSCAR (test code = (04/11/22 12:16 PM) Coronavirus (COVID-19) OSCAR) [facility] M[id number] 17:16:00 Test Item Value Reference Range Interpretation Comments Coronavirus (COVID-19) Not Detected OSCAR (test code = (04/11/22 12:16 PM) Coronavirus (COVID-19) OSCAR) [facility] [id number] 17:16:00 Test Item Value Reference Range Interpretation Comments Source Respiratory Nasophrngl Swb Panel PCR (test code = *NA*(04/11/22 12:16 Source Respiratory PM) Panel PCR) [facility] [id number] 17:16:00 Test Item Value Reference Range Interpretation Comments Influenza A PCR (test Negative *NA*(04/11/22 code = Influenza A PCR) 12:16 PM) [facility] [id number] 17:16:00 Test Item Value Reference Range Interpretation Comments Influenza B PCR (test Negative *NA*(04/11/22 code = Influenza B PCR) 12:16 PM) [facility]2022-10-13 17:16:00 Test Item Value Reference Range Interpretation Comments RSV PCR (test code = Negative *NA*(04/11/22 RSV PCR) 12:16 PM) [facility] [id number] 17:16:00 Test Item Value Reference Range Interpretation Comments Source Respiratory Nasophrngl Swb Panel PCR (test code = *NA*(04/11/22 12:16 Source Respiratory PM) Panel PCR) [facility] [id number] 17:16:00 Test Item Value Reference Range Interpretation Comments Influenza A PCR (test Negative *NA*(04/11/22 code = Influenza A PCR) 12:16 PM) [facility]annVTLE[facility] [id number] 17:16:00 Test Item Value Reference Range Interpretation Comments Influenza B PCR (test Negative *NA*(04/11/22 code = Influenza B PCR) 12:16 PM) [facility]VTLE[facility] [id number] 17:16:00 Test Item Value Reference Range Interpretation Comments RSV PCR (test code = Negative *NA*(04/11/22 RSV PCR) 12:16 PM) [facility] M[id number] 17:16:00 Test Item Value Reference Range Interpretation Comments Coronavirus (COVID-19) Not Detected OSCAR (test code = (04/11/22 12:16 PM) Coronavirus (COVID-19) OSCAR) [facility] M[id number] 17:16:00 Test Item Value Reference Range Interpretation Comments Coronavirus (COVID-19) Not Detected OSCAR (test code = (04/11/22 12:16 PM) Coronavirus (COVID-19) OSCAR) [facility]2022-10-13 17:16:00 Test Item Value Reference Range Interpretation Comments Source Respiratory Nasophrngl Swb Panel PCR (test code = *NA*(04/11/22 12:16 Source Respiratory PM) Panel PCR) [facility]2022-10-13 17:16:00 Test Item Value Reference Range Interpretation Comments Influenza A PCR (test Negative *NA*(04/11/22 code = Influenza A PCR) 12:16 PM) [facility]2022-10-13 17:16:00 Test Item Value Reference Range Interpretation Comments Influenza B PCR (test Negative *NA*(04/11/22 code = Influenza B PCR) 12:16 PM) [facility]2022-10-13 17:16:00 Test Item Value Reference Range Interpretation Comments RSV PCR (test code = Negative *NA*(04/11/22 RSV PCR) 12:16 PM) [facility]2022-10-13 17:16:00 Test Item Value Reference Range Interpretation Comments Source Respiratory Nasophrngl Swb Panel PCR (test code = *NA*(04/11/22 12:16 Source Respiratory PM) Panel PCR) [facility]2022-10-13 17:16:00 Test Item Value Reference Range Interpretation Comments Influenza A PCR (test Negative *NA*(04/11/22 code = Influenza A PCR) 12:16 PM) [facility]2022-10-13 17:16:00 Test Item Value Reference Range Interpretation Comments Influenza B PCR (test Negative *NA*(04/11/22 code = Influenza B PCR) 12:16 PM) [id number] 17:16:00 Test Item Value Reference Range Interpretation Comments RSV PCR (test code = Negative *NA*(04/11/22 RSV PCR) 12:16 PM) [facility]wsGCPKVDYAWT5668-10-29 17:16:00 Test Item Value Reference Range Interpretation Comments Coronavirus (COVID-19) Not Detected OSCAR (test code = (04/11/22 12:16 PM) Coronavirus (COVID-19) OSCAR) [facility] MarshallWpvtemfPNNEWSNLJB8099-18-88 17:16:00 Test Item Value Reference Range Interpretation Comments Coronavirus (COVID-19) Not Detected OSCAR (test code = (04/11/22 12:16 PM) Coronavirus (COVID-19) OSCAR) [facility]2022-10-13 17:16:00 Test Item Value Reference Range Interpretation Comments Source Respiratory Nasophrngl Swb Panel PCR (test code = *NA*(04/11/22 12:16 Source Respiratory PM) Panel PCR) [facility]2022-10-13 17:16:00 Test Item Value Reference Range Interpretation Comments Influenza A PCR (test Negative *NA*(04/11/22 code = Influenza A PCR) 12:16 PM) [facility]2022-10-13 17:16:00 Test Item Value Reference Range Interpretation Comments Influenza B PCR (test Negative *NA*(04/11/22 code = Influenza B PCR) 12:16 PM) [facility]2022-10-13 17:16:00 Test Item Value Reference Range Interpretation Comments RSV PCR (test code = Negative *NA*(04/11/22 RSV PCR) 12:16 PM) [facility] [id number] 17:16:00 Test Item Value Reference Range Interpretation Comments Source Respiratory Nasophrngl Swb Panel PCR (test code = *NA*(04/11/22 12:16 Source Respiratory PM) Panel PCR) [place] [id number] 17:16:00 Test Item Value Reference Range Interpretation Comments Influenza A PCR (test Negative *NA*(04/11/22 code = Influenza A PCR) 12:16 PM) [facility] [id number] 17:16:00 Test Item Value Reference Range Interpretation Comments Influenza B PCR (test Negative *NA*(04/11/22 code = Influenza B PCR) 12:16 PM) [facility] [id number] 17:16:00 Test Item Value Reference Range Interpretation Comments RSV PCR (test code = Negative *NA*(04/11/22 RSV PCR) 12:16 PM) [facility]GxwokmbKQVCXAUVYG5896-60-00 17:16:00 Test Item Value Reference Range Interpretation Comments Coronavirus (COVID-19) Not Detected OSCAR (test code = (04/11/22 12:16 PM) Coronavirus (COVID-19) OSCAR) [facility] CenterMdnmxkwOVMDOJLPLD5611-79-36 17:16:00 Test Item Value Reference Range Interpretation Comments Coronavirus (COVID-19) Not Detected OSCAR (test code = (04/11/22 12:16 PM) Coronavirus (COVID-19) OSCAR) [facility]2022-10-13 17:16:00 Test Item Value Reference Range Interpretation Comments Source Respiratory Nasophrngl Swb Panel PCR (test code = *NA*(04/11/22 12:16 Source Respiratory PM) Panel PCR) [facility]2022-10-13 17:16:00 Test Item Value Reference Range Interpretation Comments Influenza A PCR (test Negative *NA*(04/11/22 code = Influenza A PCR) 12:16 PM) [place] [id number] 17:16:00 Test Item Value Reference Range Interpretation Comments Influenza B PCR (test Negative *NA*(04/11/22 code = Influenza B PCR) 12:16 PM) [place] [id number] 17:16:00 Test Item Value Reference Range Interpretation Comments RSV PCR (test code = Negative *NA*(04/11/22 RSV PCR) 12:16 PM) [place] [id number] 17:16:00 Test Item Value Reference Range Interpretation Comments Source Respiratory Nasophrngl Swb Panel PCR (test code = *NA*(04/11/22 12:16 Source Respiratory PM) Panel PCR) [facility]2022-10-13 17:16:00 Test Item Value Reference Range Interpretation Comments Influenza A PCR (test Negative *NA*(04/11/22 code = Influenza A PCR) 12:16 PM) [facility] [id number] 17:16:00 Test Item Value Reference Range Interpretation Comments Influenza B PCR (test Negative *NA*(04/11/22 code = Influenza B PCR) 12:16 PM) [facility] [id number] 17:16:00 Test Item Value Reference Range Interpretation Comments RSV PCR (test code = Negative *NA*(04/11/22 RSV PCR) 12:16 PM) [facility]annCHEM [id number] 15:40:00 Test Item Value Reference Range Interpretation Comments LDH (test code = LDH) 150 98-192 [facility] KlebergXxobcgaLHEOLNEIC2294-81-00 15:40:00 Test Item Value Reference Range Interpretation Comments S Preg (test code = S Negative *NA*(04/11/22 Preg) 10:40 AM) [facility] KlebergXoqiirpWXVKEYUHB6146-62-28 15:40:00 Test Item Value Reference Range Interpretation Comments TSH (test code = TSH) 1.580 0.360-3.740 [facility] KlebergFsmwlphRTEXPRGNVBVWA7908-63-70 15:40:00 Test Item Value Reference Range Interpretation Comments S Preg (test code = S Negative *NA*(04/11/22 Preg) 10:40 AM) [facility] KlebergSxzllexOJTSFGGDWB3499-31-96 15:40:00 Test Item Value Reference Range Interpretation Comments ACHr Binding Ab (test code = ACHr no gt Binding Ab) [facility] KlebergJzgimmlBXVTTNGQNG8963-62-72 15:40:00 Test Item Value Reference Range Interpretation Comments ACHr Block Ab (test code = ACHr Block no gt Ab) [facility] XtjaxjxJYGEZRJUMR0208-12-91 15:40:00 Test Item Value Reference Range Interpretation Comments ACHr Mod Ab (test code = ACHr Mod Ab) no gt [facility] KhaxrkdKJMEHIOJVL7839-97-84 15:40:00 Test Item Value Reference Range Interpretation Comments Striated Muscle IgG (test code = NEGATIVE Striated Muscle IgG) [facility]annTUMOR [id number] 15:40:00 Test Item Value Reference Range Interpretation Comments AFP TM (test code = AFP TM) 2.5 [facility]annTUMOR [id number] 15:40:00 Test Item Value Reference Range Interpretation Comments AFP TM (test code = AFP TM) 2.5 [facility]bergannCHEM [id number] 15:40:00 Test Item Value Reference Range Interpretation Comments LDH (test code = LDH) 150 98-192 [facility] TqgryrsONIBAMGVH8287-75-23 15:40:00 Test Item Value Reference Range Interpretation Comments S Preg (test code = S Negative *NA*(04/11/22 Preg) 10:40 AM) [facility] KlebergSlxwhpaFQSFSPCUY2836-75-60 15:40:00 Test Item Value Reference Range Interpretation Comments TSH (test code = TSH) 1.580 0.360-3.740 [facility] KlebergLqicxbyHZQQGXTIOZPRV9099-21-83 15:40:00 Test Item Value Reference Range Interpretation Comments S Preg (test code = S Negative *NA*(04/11/22 Preg) 10:40 AM) [facility] KlebergZuxqzkgXWTHSPEGCO8966-49-29 15:40:00 Test Item Value Reference Range Interpretation Comments ACHr Binding Ab (test code = ACHr no gt Binding Ab) [facility] KlebergWzyrqqkVRVXJFPKPR9936-58-46 15:40:00 Test Item Value Reference Range Interpretation Comments ACHr Block Ab (test code = ACHr Block no gt Ab) [facility] QxfdowfJWMAUVGNKH6194-34-09 15:40:00 Test Item Value Reference Range Interpretation Comments ACHr Mod Ab (test code = ACHr Mod Ab) no gt [facility] LsqbrmzCXAWXGUVAG7355-20-84 15:40:00 Test Item Value Reference Range Interpretation Comments Striated Muscle IgG (test code = NEGATIVE Striated Muscle IgG) [facility]bergannTUMOR [id number] 15:40:00 Test Item Value Reference Range Interpretation Comments AFP TM (test code = AFP TM) 2.5 [facility]annT[facility] [id number] 15:40:00 Test Item Value Reference Range Interpretation Comments AFP TM (test code = AFP TM) 2.5 [facility]annCHEM BZRNW1947-96-26 15:40:00 Test Item Value Reference Range Interpretation Comments LDH (test code = LDH) 150 98-192 [facility] KlebergZflsxzjNVCDOMYYW6295-53-42 15:40:00 Test Item Value Reference Range Interpretation Comments S Preg (test code = S Negative *NA*(04/11/22 Preg) 10:40 AM) [facility] KlebergRcaophpAKHSIJUXX0466-39-35 15:40:00 Test Item Value Reference Range Interpretation Comments TSH (test code = TSH) 1.580 0.360-3.740 [facility] MarshallImglohpFQXDDBZDLZXBK8686-74-55 15:40:00 Test Item Value Reference Range Interpretation Comments S Preg (test code = S Negative *NA*(04/11/22 Preg) 10:40 AM) [facility] KlebergCplqmxmGHOTCUHMAP6283-53-24 15:40:00 Test Item Value Reference Range Interpretation Comments ACHr Binding Ab (test code = ACHr no gt Binding Ab) [facility] KlebergLcfbbunMOGFIUYUNP5564-30-75 15:40:00 Test Item Value Reference Range Interpretation Comments ACHr Block Ab (test code = ACHr Block no gt Ab) [facility] KlebergYyglpnrFINDKVPGUE4425-10-37 15:40:00 Test Item Value Reference Range Interpretation Comments ACHr Mod Ab (test code = ACHr Mod Ab) no gt [facility] KlebergOunaakzYJDKQIKGTH5453-60-48 15:40:00 Test Item Value Reference Range Interpretation Comments Striated Muscle IgG (test code = NEGATIVE Striated Muscle IgG) [facility] [place] [place] [id number] 15:40:00 Test Item Value Reference Range Interpretation Comments AFP TM (test code = AFP TM) 2.5 [facility]bergannTUMOR APSKTGW0320-27-19 15:40:00 Test Item Value Reference Range Interpretation Comments AFP TM (test code = AFP TM) 2.5 [facility]bergannCHEM [id number] 15:40:00 Test Item Value Reference Range Interpretation Comments LDH (test code = LDH) 150 98-192 [facility] KlebergCksyhfhHYNEXBSWP3999-76-49 15:40:00 Test Item Value Reference Range Interpretation Comments S Preg (test code = S Negative *NA*(04/11/22 Preg) 10:40 AM) [facility] CenterUxjzdvuSTZFPWGTB2661-03-59 15:40:00 Test Item Value Reference Range Interpretation Comments TSH (test code = TSH) 1.580 0.360-3.740 [facility] CenterThsaeuqENFNGIWZVWEVI0177-18-97 15:40:00 Test Item Value Reference Range Interpretation Comments S Preg (test code = S Negative *NA*(04/11/22 Preg) 10:40 AM) [facility] KlebergGkobucgMXAKWVGCPE1088-58-12 15:40:00 Test Item Value Reference Range Interpretation Comments ACHr Binding Ab (test code = ACHr no gt Binding Ab) [facility] KlebergVyevmtkNEWTGPNRDZ3013-96-69 15:40:00 Test Item Value Reference Range Interpretation Comments ACHr Block Ab (test code = ACHr Block no gt Ab) [facility] MarshallSeqqrfrYKPQGUOLHZ6089-48-25 15:40:00 Test Item Value Reference Range Interpretation Comments ACHr Mod Ab (test code = ACHr Mod Ab) no gt [facility] CenterEppnvasBBEHDNDUJQ4081-95-03 15:40:00 Test Item Value Reference Range Interpretation Comments Striated Muscle IgG (test code = NEGATIVE Striated Muscle IgG) [facility]2022-10-13 15:40:00 Test Item Value Reference Range Interpretation Comments AFP TM (test code = AFP TM) 2.5 [facility] KlebergannELIZABETH HOSPITALIZDCMVB6932-72-31 15:40:00 Test Item Value Reference Range Interpretation Comments AFP TM (test code = AFP TM) 2.5 [facility] [id number] 15:40:00 Test Item Value Reference Range Interpretation Comments LDH (test code = LDH) 150 98-192 [facility] CenterUmomexlCKNWIJDEF4098-12-21 15:40:00 Test Item Value Reference Range Interpretation Comments S Preg (test code = S Negative *NA*(04/11/22 Preg) 10:40 AM) [facility] CenterCcuurizLONZKEFFW2258-51-21 15:40:00 Test Item Value Reference Range Interpretation Comments TSH (test code = TSH) 1.580 0.360-3.740 [place] [id number] 15:40:00 Test Item Value Reference Range Interpretation Comments S Preg (test code = S Negative *NA*(04/11/22 Preg) 10:40 AM) [facility] CenterBgjgpolNOHULWESVB7665-39-32 15:40:00 Test Item Value Reference Range Interpretation Comments ACHr Binding Ab (test code = ACHr no gt Binding Ab) [facility] CenterBlmizkgWSGZLIINTE0873-52-97 15:40:00 Test Item Value Reference Range Interpretation Comments ACHr Block Ab (test code = ACHr Block no gt Ab) [facility] MarshallHrgknxdNQRSHMPAUB7962-45-00 15:40:00 Test Item Value Reference Range Interpretation Comments ACHr Mod Ab (test code = ACHr Mod Ab) no gt [facility] CenterSjywwmsZQBOFHPNRX4032-96-61 15:40:00 Test Item Value Reference Range Interpretation Comments Striated Muscle IgG (test code = NEGATIVE Striated Muscle IgG) [facility]2022-10-13 15:40:00 Test Item Value Reference Range Interpretation Comments AFP TM (test code = AFP TM) 2.5 [facility]annT[facility] [id number] 15:40:00 Test Item Value Reference Range Interpretation Comments AFP TM (test code = AFP TM) 2.5 [facility]annCHEM [id number] 15:40:00 Test Item Value Reference Range Interpretation Comments LDH (test code = LDH) 150 98-192 [facility] EcmlssrPGCJRMYJV9637-55-44 15:40:00 Test Item Value Reference Range Interpretation Comments S Preg (test code = S Negative *NA*(04/11/22 Preg) 10:40 AM) [facility] KlebergNdtfcwcBRCDNSJMS8963-32-44 15:40:00 Test Item Value Reference Range Interpretation Comments TSH (test code = TSH) 1.580 0.360-3.740 [facility] KlebergSoduvehHAFBRFQTFSTGN7795-70-37 15:40:00 Test Item Value Reference Range Interpretation Comments S Preg (test code = S Negative *NA*(04/11/22 Preg) 10:40 AM) [facility] DnfqufpXXZRABNZTD0272-00-12 15:40:00 Test Item Value Reference Range Interpretation Comments ACHr Binding Ab (test code = ACHr no gt Binding Ab) [facility] YmtkptbAGZFLSLKXP7332-85-20 15:40:00 Test Item Value Reference Range Interpretation Comments ACHr Block Ab (test code = ACHr Block no gt Ab) [facility] AdmfvnuYMDVFXNVAL9526-22-06 15:40:00 Test Item Value Reference Range Interpretation Comments ACHr Mod Ab (test code = ACHr Mod Ab) no gt [facility] PvbgiafSJPOMNQGER4066-79-68 15:40:00 Test Item Value Reference Range Interpretation Comments Striated Muscle IgG (test code = NEGATIVE Striated Muscle IgG) [facility]annTUM[facility] [id number] 15:40:00 Test Item Value Reference Range Interpretation Comments AFP TM (test code = AFP TM) 2.5 [facility]annTUMOR [id number] 15:40:00 Test Item Value Reference Range Interpretation Comments AFP TM (test code = AFP TM) 2.5 [facility]annCHEM [id number] 15:40:00 Test Item Value Reference Range Interpretation Comments LDH (test code = LDH) 150 98-192 [facility] KlebergFlpufwbYPKMDJUUH4495-98-34 15:40:00 Test Item Value Reference Range Interpretation Comments S Preg (test code = S Negative *NA*(04/11/22 Preg) 10:40 AM) [facility] CenterNfubwflPVMBFPJBQ4278-17-81 15:40:00 Test Item Value Reference Range Interpretation Comments TSH (test code = TSH) 1.580 0.360-3.740 [place] [id number] 15:40:00 Test Item Value Reference Range Interpretation Comments S Preg (test code = S Negative *NA*(04/11/22 Preg) 10:40 AM) [facility] CenterTepxzmoKKENXMZEBK8616-24-25 15:40:00 Test Item Value Reference Range Interpretation Comments ACHr Binding Ab (test code = ACHr no gt Binding Ab) [facility]2022-10-13 15:40:00 Test Item Value Reference Range Interpretation Comments LDH (test code = LDH) 150 98-192 [facility] CenterDiudqroVAYJWRPGF4416-93-90 15:40:00 Test Item Value Reference Range Interpretation Comments S Preg (test code = S Negative *NA*(04/11/22 Preg) 10:40 AM) [facility] CenterHakgfuiOAXJHKNBD5770-94-13 15:40:00 Test Item Value Reference Range Interpretation Comments TSH (test code = TSH) 1.580 0.360-3.740 [place] [id number] 15:40:00 Test Item Value Reference Range Interpretation Comments S Preg (test code = S Negative *NA*(04/11/22 Preg) 10:40 AM) [facility] CenterDosuarcJWCPWNTIMJ0574-69-34 15:40:00 Test Item Value Reference Range Interpretation Comments ACHr Binding Ab (test code = ACHr no gt Binding Ab) [facility] CenterSvetlteEDZXVXBIGO5700-87-83 15:40:00 Test Item Value Reference Range Interpretation Comments ACHr Block Ab (test code = ACHr Block no gt Ab) [facility] CenterZpirekdMDHUVIAYZI5034-93-77 15:40:00 Test Item Value Reference Range Interpretation Comments ACHr Mod Ab (test code = ACHr Mod Ab) no gt [facility] CenterUkixrjqOWTVYPMJMO2503-42-45 15:40:00 Test Item Value Reference Range Interpretation Comments Striated Muscle IgG (test code = NEGATIVE Striated Muscle IgG) [facility]TWE[facility] HEALTHKHEKVQC6395-77-21 15:40:00 Test Item Value Reference Range Interpretation Comments AFP TM (test code = AFP TM) 2.5 [facility] KlebergMrgucgmUQCPWPTUNM7791-43-98 15:40:00 Test Item Value Reference Range Interpretation Comments ACHr Block Ab (test code = ACHr Block no gt Ab) [facility]annTE[facility] XJNCWND0022-13-71 15:40:00 Test Item Value Reference Range Interpretation Comments AFP TM (test code = AFP TM) 2.5 [facility] KlebergDcdcgpfFDLMTBIERI6837-97-16 15:40:00 Test Item Value Reference Range Interpretation Comments ACHr Mod Ab (test code = ACHr Mod Ab) no gt [facility] JxkgrpwFRQFCLAAAC6588-25-92 15:40:00 Test Item Value Reference Range Interpretation Comments Striated Muscle IgG (test code = NEGATIVE Striated Muscle IgG) [facility]IN[facility] YKDXWGC4591-20-50 15:40:00 Test Item Value Reference Range Interpretation Comments AFP TM (test code = AFP TM) 2.5 [facility]annIN[facility] TEGENAH6514-30-81 15:40:00 Test Item Value Reference Range Interpretation Comments AFP TM (test code = AFP TM) 2.5 [facility] [id number] 15:40:00 Test Item Value Reference Range Interpretation Comments LDH (test code = LDH) 150 98-192 [facility] CenterWrggthjUMBWOXDVP7294-91-62 15:40:00 Test Item Value Reference Range Interpretation Comments S Preg (test code = S Negative *NA*(04/11/22 Preg) 10:40 AM) [facility] CenterKytbmgpLEXFHLOCC4378-65-64 15:40:00 Test Item Value Reference Range Interpretation Comments TSH (test code = TSH) 1.580 0.360-3.740 [facility] CenterNyoemvpRPBBEGYEZYXEW2071-55-95 15:40:00 Test Item Value Reference Range Interpretation Comments S Preg (test code = S Negative *NA*(04/11/22 Preg) 10:40 AM) [facility] KlebergEvvfaycIUVZOIGTDC2280-67-01 15:40:00 Test Item Value Reference Range Interpretation Comments ACHr Binding Ab (test code = ACHr no gt Binding Ab) [facility] KlebergAuebrjySDIJVFNUGC7888-91-75 15:40:00 Test Item Value Reference Range Interpretation Comments ACHr Block Ab (test code = ACHr Block no gt Ab) [facility] KlebergZkjikqwYIXHPDUGJB1902-61-09 15:40:00 Test Item Value Reference Range Interpretation Comments ACHr Mod Ab (test code = ACHr Mod Ab) no gt [facility] KlebergSnyunbvLMNWUBVXUX5146-58-74 15:40:00 Test Item Value Reference Range Interpretation Comments Striated Muscle IgG (test code = NEGATIVE Striated Muscle IgG) [facility]bergannTUMOR JSZLNXM0229-86-64 15:40:00 Test Item Value Reference Range Interpretation Comments AFP TM (test code = AFP TM) 2.5 [facility]annT[facility] SLJIYQF0286-28-16 15:40:00 Test Item Value Reference Range Interpretation Comments AFP TM (test code = AFP TM) 2.5 [facility] KlebergannCHEM ABUDO6642-50-30 15:40:00 Test Item Value Reference Range Interpretation Comments LDH (test code = LDH) 150 98-192 [facility] KlebergQvhhrsrQWXPRKFVD6925-81-48 15:40:00 Test Item Value Reference Range Interpretation Comments S Preg (test code = S Negative *NA*(04/11/22 Preg) 10:40 AM) [facility] KlebergMhgjfluWDECCNWFA7259-69-48 15:40:00 Test Item Value Reference Range Interpretation Comments TSH (test code = TSH) 1.580 0.360-3.740 [facility] MarshallJplrrdxKXSFBLWITYTOU5990-41-94 15:40:00 Test Item Value Reference Range Interpretation Comments S Preg (test code = S Negative *NA*(04/11/22 Preg) 10:40 AM) [facility] KlebergMwhknhpOBXUHIORQH2376-41-33 15:40:00 Test Item Value Reference Range Interpretation Comments ACHr Binding Ab (test code = ACHr no gt Binding Ab) [facility] KlebergChyagfpZYZBOZKSQQ1532-68-84 15:40:00 Test Item Value Reference Range Interpretation Comments ACHr Block Ab (test code = ACHr Block no gt Ab) [facility] KlebergTfgdniiUWFPPQSTOZ5065-83-61 15:40:00 Test Item Value Reference Range Interpretation Comments ACHr Mod Ab (test code = ACHr Mod Ab) no gt [facility] KlebergZmrfyboVVMBDDLHWE1377-44-68 15:40:00 Test Item Value Reference Range Interpretation Comments Striated Muscle IgG (test code = NEGATIVE Striated Muscle IgG) [facility]bergannTUMOR [id number] 15:40:00 Test Item Value Reference Range Interpretation Comments AFP TM (test code = AFP TM) 2.5 [facility]bergannTUMOR [id number] 15:40:00 Test Item Value Reference Range Interpretation Comments AFP TM (test code = AFP TM) 2.5 [facility] KlebergannAkoha CSHLG3928-76-68 15:40:00 Test Item Value Reference Range Interpretation Comments LDH (test code = LDH) 150 98-192 [facility] GasaejiMXFTBPLQR7821-94-48 15:40:00 Test Item Value Reference Range Interpretation Comments S Preg (test code = S Negative *NA*(04/11/22 Preg) 10:40 AM) [facility] KabhsloFHNXCPIRX8699-96-57 15:40:00 Test Item Value Reference Range Interpretation Comments TSH (test code = TSH) 1.580 0.360-3.740 [facility] KlebergTichyswEZRTDOOVKNIZV8482-54-41 15:40:00 Test Item Value Reference Range Interpretation Comments S Preg (test code = S Negative *NA*(04/11/22 Preg) 10:40 AM) [facility] KlebergFvlszjsBIAHOMAKAJ8762-68-76 15:40:00 Test Item Value Reference Range Interpretation Comments ACHr Binding Ab (test code = ACHr no gt Binding Ab) [facility] KlebergYsbxvexLDHDPSEWIM0100-97-82 15:40:00 Test Item Value Reference Range Interpretation Comments ACHr Block Ab (test code = ACHr Block no gt Ab) [facility] AeehfonWJBPRIVJFO2714-07-66 15:40:00 Test Item Value Reference Range Interpretation Comments ACHr Mod Ab (test code = ACHr Mod Ab) no gt [facility] DmivkszEJDWCWBBYT0194-41-72 15:40:00 Test Item Value Reference Range Interpretation Comments Striated Muscle IgG (test code = NEGATIVE Striated Muscle IgG) [facility]bergannT[facility] TSRQVBC5359-94-17 15:40:00 Test Item Value Reference Range Interpretation Comments AFP TM (test code = AFP TM) 2.5 [facility] [id number] 15:40:00 Test Item Value Reference Range Interpretation Comments AFP TM (test code = AFP TM) 2.5 [facility]bergannCHEM [id number] 15:40:00 Test Item Value Reference Range Interpretation Comments LDH (test code = LDH) 150 98-192 [facility] KlebergShygngqLTECVHVOJ3675-27-61 15:40:00 Test Item Value Reference Range Interpretation Comments S Preg (test code = S Negative *NA*(04/11/22 Preg) 10:40 AM) [facility] KlebergLbgpgfnOVJLJRIDM3222-21-16 15:40:00 Test Item Value Reference Range Interpretation Comments TSH (test code = TSH) 1.580 0.360-3.740 [facility] MarshallCqciezyVRFANCPQIIDCO2112-66-50 15:40:00 Test Item Value Reference Range Interpretation Comments S Preg (test code = S Negative *NA*(04/11/22 Preg) 10:40 AM) [facility] KlebergDtqbtsgUOQHGCFRCJ9443-96-00 15:40:00 Test Item Value Reference Range Interpretation Comments ACHr Binding Ab (test code = ACHr no gt Binding Ab) [facility] KlebergYodepyaYUZNKMDURY3623-73-64 15:40:00 Test Item Value Reference Range Interpretation Comments ACHr Block Ab (test code = ACHr Block no gt Ab) [facility] KlebergTjcoqpsIOYPASSATP6311-28-98 15:40:00 Test Item Value Reference Range Interpretation Comments ACHr Mod Ab (test code = ACHr Mod Ab) no gt [facility] KlebergQnnwprcZIICNFKGCP9673-90-31 15:40:00 Test Item Value Reference Range Interpretation Comments Striated Muscle IgG (test code = NEGATIVE Striated Muscle IgG) [facility] [place] [place] [id number] 15:40:00 Test Item Value Reference Range Interpretation Comments AFP TM (test code = AFP TM) 2.5 [facility]annTUMOR [id number] 15:40:00 Test Item Value Reference Range Interpretation Comments AFP TM (test code = AFP TM) 2.5 [facility]CHEM [id number] 15:40:00 Test Item Value Reference Range Interpretation Comments LDH (test code = LDH) 150 98-192 [facility] KlebergPtaqekrERLPLXWYK5179-52-54 15:40:00 Test Item Value Reference Range Interpretation Comments S Preg (test code = S Negative *NA*(04/11/22 Preg) 10:40 AM) [facility] CenterTxcvmzbHVCLFDEMV6792-99-05 15:40:00 Test Item Value Reference Range Interpretation Comments TSH (test code = TSH) 1.580 0.360-3.740 [facility]AvupddkPYETNAVJUJALB3413-42-41 15:40:00 Test Item Value Reference Range Interpretation Comments S Preg (test code = S Negative *NA*(04/11/22 Preg) 10:40 AM) [facility] KlebergKrackhpWLGHPPBUNR6374-74-35 15:40:00 Test Item Value Reference Range Interpretation Comments ACHr Binding Ab (test code = ACHr no gt Binding Ab) [facility] KlebergGhvbbtiRTCPGUECCH8587-17-16 15:40:00 Test Item Value Reference Range Interpretation Comments ACHr Block Ab (test code = ACHr Block no gt Ab) [facility] MarshallLdjxkomTFLYRCYTUK3040-95-62 15:40:00 Test Item Value Reference Range Interpretation Comments ACHr Mod Ab (test code = ACHr Mod Ab) no gt [facility] CenterEquizrxXBTZCXSNOS4120-56-73 15:40:00 Test Item Value Reference Range Interpretation Comments Striated Muscle IgG (test code = NEGATIVE Striated Muscle IgG) [facility]2022-10-13 15:40:00 Test Item Value Reference Range Interpretation Comments AFP TM (test code = AFP TM) 2.5 [facility]bergannELIZABETH HOSPITALLARRIQW3261-98-31 15:40:00 Test Item Value Reference Range Interpretation Comments AFP TM (test code = AFP TM) 2.5 [facility]2022-10-13 15:40:00 Test Item Value Reference Range Interpretation Comments LDH (test code = LDH) 150 98-192 [facility] CenterWmrtdziLEEMXEIFN6323-86-48 15:40:00 Test Item Value Reference Range Interpretation Comments S Preg (test code = S Negative *NA*(04/11/22 Preg) 10:40 AM) [facility] CenterYxjqiheQWOXPUZPG8893-21-53 15:40:00 Test Item Value Reference Range Interpretation Comments TSH (test code = TSH) 1.580 0.360-3.740 [place] 62108022-10-13 15:40:00 Test Item Value Reference Range Interpretation Comments S Preg (test code = S Negative *NA*(04/11/22 Preg) 10:40 AM) [facility] CenterBfirelaRHWRMDIVGB5098-63-94 15:40:00 Test Item Value Reference Range Interpretation Comments ACHr Binding Ab (test code = ACHr no gt Binding Ab) [facility] CenterSyjwlhgUTITGYYRMJ1519-17-84 15:40:00 Test Item Value Reference Range Interpretation Comments ACHr Block Ab (test code = ACHr Block no gt Ab) [facility] MarshallJtrqkiyHLHNSOHKOH8199-54-80 15:40:00 Test Item Value Reference Range Interpretation Comments ACHr Mod Ab (test code = ACHr Mod Ab) no gt [facility] CenterFiwlnfsGJFDRVJNKW9229-30-89 15:40:00 Test Item Value Reference Range Interpretation Comments Striated Muscle IgG (test code = NEGATIVE Striated Muscle IgG) [facility]2022-10-13 15:40:00 Test Item Value Reference Range Interpretation Comments AFP TM (test code = AFP TM) 2.5 [facility] [id number] 15:40:00 Test Item Value Reference Range Interpretation Comments AFP TM (test code = AFP TM) 2.5 [facility]CHE[facility] [id number] 15:40:00 Test Item Value Reference Range Interpretation Comments LDH (test code = LDH) 150 98-192 [facility] GgazymnSXVQCJNPH0033-33-49 15:40:00 Test Item Value Reference Range Interpretation Comments S Preg (test code = S Negative *NA*(04/11/22 Preg) 10:40 AM) [facility] QejizkvLINYXPSQQ8225-42-36 15:40:00 Test Item Value Reference Range Interpretation Comments TSH (test code = TSH) 1.580 0.360-3.740 [facility] KlebergSmrtgobPRUCRMAMYULZF2565-93-76 15:40:00 Test Item Value Reference Range Interpretation Comments S Preg (test code = S Negative *NA*(04/11/22 Preg) 10:40 AM) [facility] BhadqsqNPQUZLBDEZ8040-55-30 15:40:00 Test Item Value Reference Range Interpretation Comments ACHr Binding Ab (test code = ACHr no gt Binding Ab) [facility] YnljnqzAXPLWHYIJB1721-97-96 15:40:00 Test Item Value Reference Range Interpretation Comments ACHr Block Ab (test code = ACHr Block no gt Ab) [facility] FssvyrzUDZQUDCZBT3704-38-65 15:40:00 Test Item Value Reference Range Interpretation Comments ACHr Mod Ab (test code = ACHr Mod Ab) no gt [facility] QhklvhwRPSDCOWHEJ5386-22-39 15:40:00 Test Item Value Reference Range Interpretation Comments Striated Muscle IgG (test code = NEGATIVE Striated Muscle IgG) [facility] [id number] 15:40:00 Test Item Value Reference Range Interpretation Comments AFP TM (test code = AFP TM) 2.5 [facility] OHPBYDG8794-01-32 15:40:00 Test Item Value Reference Range Interpretation Comments AFP TM (test code = AFP TM) 2.5 [facility]annCHE[facility] [id number] 15:40:00 Test Item Value Reference Range Interpretation Comments LDH (test code = LDH) 150 98-192 [facility] KlebergFtycjpnVQFHUEVPR0584-66-02 15:40:00 Test Item Value Reference Range Interpretation Comments S Preg (test code = S Negative *NA*(04/11/22 Preg) 10:40 AM) [facility] KlebergVupugvcLCHZMDJHE5337-58-61 15:40:00 Test Item Value Reference Range Interpretation Comments TSH (test code = TSH) 1.580 0.360-3.740 [facility] KlebergIgowocaWGNQRWGYRYXCG8842-93-03 15:40:00 Test Item Value Reference Range Interpretation Comments S Preg (test code = S Negative *NA*(04/11/22 Preg) 10:40 AM) [facility] TmywxdgLEPCYMIVAQ1225-57-55 15:40:00 Test Item Value Reference Range Interpretation Comments ACHr Binding Ab (test code = ACHr no gt Binding Ab) [facility] KlebergFiqgnjrRMZXWBVVIY9193-39-39 15:40:00 Test Item Value Reference Range Interpretation Comments ACHr Block Ab (test code = ACHr Block no gt Ab) [facility] KlebergMbhlvlxHNQCPEURJE4391-23-57 15:40:00 Test Item Value Reference Range Interpretation Comments ACHr Mod Ab (test code = ACHr Mod Ab) no gt [facility] BscjlazVQJYGCCYZU1377-02-84 15:40:00 Test Item Value Reference Range Interpretation Comments Striated Muscle IgG (test code = NEGATIVE Striated Muscle IgG) [facility]annT[facility] SYAZMTY8923-03-89 15:40:00 Test Item Value Reference Range Interpretation Comments AFP TM (test code = AFP TM) 2.5 [facility] HermannTUMOR [id number] 15:40:00 Test Item Value Reference Range Interpretation Comments AFP TM (test code = AFP TM) 2.5 [facility] KlebergLidppfdNABYTAGIYP4619-42-69 13:59:00 Test Item Value Reference Range Interpretation Comments Basophils # (test code 0.1 See_Comment [Aut omated message] The = Basophils #) system which generated this result tra nsmitted reference range : <=0.2. The reference r quynh was not used to int erpret this result as normal/abnormal . [facility] KlebergXpxmnjfVDTEKVCTJM7182-13-92 13:59:00 Test Item Value Reference Range Interpretation Comments Basophils # (test code 0.1 See_Comment [Aut omated message] The = Basophils #) system which generated this result tra nsmitted reference range : <=0.2. The reference r quynh was not used to int erpret this result as normal/abnormal . [place] [address]-10-13 13:59:00 Test Item Value Reference Range Interpretation Comments Basophils # (test code 0.1 See_Comment [Aut omated message] The = Basophils #) system which generated this result tra nsmitted reference range : <=0.2. The reference r quynh was not used to int erpret this result as normal/abnormal . [place] [address]-10-13 13:59:00 Test Item Value Reference Range Interpretation Comments Basophils # (test code 0.1 See_Comment [Aut omated message] The = Basophils #) system which generated this result tra nsmitted reference range : <=0.2. The reference r quynh was not used to int erpret this result as normal/abnormal . [place] [address]-10-13 13:59:00 Test Item Value Reference Range Interpretation Comments Basophils # (test code 0.1 See_Comment [Aut omated message] The = Basophils #) system which generated this result tra nsmitted reference range : <=0.2. The reference r quynh was not used to int erpret this result as normal/abnormal . [place] [address]-10-13 13:59:00 Test Item Value Reference Range Interpretation Comments Basophils # (test code 0.1 See_Comment [Aut omated message] The = Basophils #) system which generated this result tra nsmitted reference range : <=0.2. The reference r quynh was not used to int erpret this result as normal/abnormal . [place] [address]-10-13 13:59:00 Test Item Value Reference Range Interpretation Comments Basophils # (test code 0.1 See_Comment [Aut omated message] The = Basophils #) system which generated this result tra nsmitted reference range : <=0.2. The reference r quynh was not used to int erpret this result as normal/abnormal . [place] [address]-10-13 13:59:00 Test Item Value Reference Range Interpretation Comments Basophils # (test code 0.1 See_Comment [Aut omated message] The = Basophils #) system which generated this result tra nsmitted reference range : <=0.2. The reference r quynh was not used to int erpret this result as normal/abnormal . [place] [address]-10-13 13:59:00 Test Item Value Reference Range Interpretation Comments Basophils # (test code 0.1 See_Comment [Aut omated message] The = Basophils #) system which generated this result tra nsmitted reference range : <=0.2. The reference r quynh was not used to int erpret this result as normal/abnormal . [place] [address]-10-13 13:59:00 Test Item Value Reference Range Interpretation Comments Basophils # (test code 0.1 See_Comment [Aut omated message] The = Basophils #) system which generated this result tra nsmitted reference range : <=0.2. The reference r quynh was not used to int erpret this result as normal/abnormal . [place] [address]-10-13 13:59:00 Test Item Value Reference Range Interpretation Comments Basophils # (test code 0.1 See_Comment [Aut omated message] The = Basophils #) system which generated this result tra nsmitted reference range : <=0.2. The reference r quynh was not used to int erpret this result as normal/abnormal . [place] [address]-10-13 13:59:00 Test Item Value Reference Range Interpretation Comments Basophils # (test code 0.1 See_Comment [Aut omated message] The = Basophils #) system which generated this result tra nsmitted reference range : <=0.2. The reference r quynh was not used to int erpret this result as normal/abnormal . [place] [address]-10-13 13:59:00 Test Item Value Reference Range Interpretation Comments Basophils # (test code 0.1 See_Comment [Aut omated message] The = Basophils #) system which generated this result tra nsmitted reference range : <=0.2. The reference r quynh was not used to int erpret this result as normal/abnormal . [place] [address]-10-13 13:59:00 Test Item Value Reference Range Interpretation Comments Basophils # (test code 0.1 See_Comment [Aut omated message] The = Basophils #) system which generated this result tra nsmitted reference range : <=0.2. The reference r quynh was not used to int erpret this result as normal/abnormal . [place] [address]-10-13 13:59:00 Test Item Value Reference Range Interpretation Comments Basophils # (test code 0.1 See_Comment [Aut omated message] The = Basophils #) system which generated this result tra nsmitted reference range : <=0.2. The reference r quynh was not used to int erpret this result as normal/abnormal . [place] [address]-10-13 13:59:00 Test Item Value Reference Range Interpretation Comments Basophils # (test code 0.1 See_Comment [Aut omated message] The = Basophils #) system which generated this result tra nsmitted reference range : <=0.2. The reference r quynh was not used to int erpret this result as normal/abnormal . [address]10-13 08:34:00 Test Item Value Reference Range Interpretation Comments Procalcitonin Lvl <0.05 ng/mL See_Comment [Automate d message] (test code = The system whic h Procalcitonin Lvl) generated this result transmit fabiano reference range : <=0.10. The reference range was not used to interpret this result as normal/abnormal . [address]10-13 08:34:00 Test Item Value Reference Range Interpretation Comments Procalcitonin Lvl <0.05 ng/mL See_Comment [Automate d message] (test code = The system whic h Procalcitonin Lvl) generated this result transmit fabiano reference range : <=0.10. The reference range was not used to interpret this result as normal/abnormal . [address]10-13 08:34:00 Test Item Value Reference Range Interpretation Comments Procalcitonin Lvl <0.05 ng/mL See_Comment [Automate d message] (test code = The system whic h Procalcitonin Lvl) generated this result transmit fabiano reference range : <=0.10. The reference range was not used to interpret this result as normal/abnormal . [address]10-13 08:34:00 Test Item Value Reference Range Interpretation Comments Procalcitonin Lvl <0.05 ng/mL See_Comment [Automate d message] (test code = The system whic h Procalcitonin Lvl) generated this result transmit fabiano reference range : <=0.10. The reference range was not used to interpret this result as normal/abnormal . [address]10-13 08:34:00 Test Item Value Reference Range Interpretation Comments Procalcitonin Lvl <0.05 ng/mL See_Comment [Automate d message] (test code = The system whic h Procalcitonin Lvl) generated this result transmit fabiano reference range : <=0.10. The reference range was not used to interpret this result as normal/abnormal . [address]10-13 08:34:00 Test Item Value Reference Range Interpretation Comments Procalcitonin Lvl <0.05 ng/mL See_Comment [Automate d message] (test code = The system whic h Procalcitonin Lvl) generated this result transmit fabiano reference range : <=0.10. The reference range was not used to interpret this result as normal/abnormal . [address]10-13 08:34:00 Test Item Value Reference Range Interpretation Comments Procalcitonin Lvl <0.05 ng/mL See_Comment [Automate d message] (test code = The system whic h Procalcitonin Lvl) generated this result transmit fabiano reference range : <=0.10. The reference range was not used to interpret this result as normal/abnormal . [address]10-13 08:34:00 Test Item Value Reference Range Interpretation Comments Procalcitonin Lvl <0.05 ng/mL See_Comment [Automate d message] (test code = The system whic h Procalcitonin Lvl) generated this result transmit fabiano reference range : <=0.10. The reference range was not used to interpret this result as normal/abnormal . [address]10-13 08:34:00 Test Item Value Reference Range Interpretation Comments Procalcitonin Lvl <0.05 ng/mL See_Comment [Automate d message] (test code = The system whic h Procalcitonin Lvl) generated this result transmit fabiano reference range : <=0.10. The reference range was not used to interpret this result as normal/abnormal . [address]10-13 08:34:00 Test Item Value Reference Range Interpretation Comments Procalcitonin Lvl <0.05 ng/mL See_Comment [Automate d message] (test code = The system whic h Procalcitonin Lvl) generated this result transmit fabiano reference range : <=0.10. The reference range was not used to interpret this result as normal/abnormal . [address]10-13 08:34:00 Test Item Value Reference Range Interpretation Comments Procalcitonin Lvl <0.05 ng/mL See_Comment [Automate d message] (test code = The system whic h Procalcitonin Lvl) generated this result transmit fabiano reference range : <=0.10. The reference range was not used to interpret this result as normal/abnormal . [address]10-13 08:34:00 Test Item Value Reference Range Interpretation Comments Procalcitonin Lvl <0.05 ng/mL See_Comment [Automate d message] (test code = The system whic h Procalcitonin Lvl) generated this result transmit fabiano reference range : <=0.10. The reference range was not used to interpret this result as normal/abnormal . [place] [address]-13 08:34:00 Test Item Value Reference Range Interpretation Comments Procalcitonin Lvl <0.05 ng/mL See_Comment [Automate d message] (test code = The system whic h Procalcitonin Lvl) generated this result transmit fabiano reference range : <=0.10. The reference range was not used to interpret this result as normal/abnormal . [address]10-13 08:34:00 Test Item Value Reference Range Interpretation Comments Procalcitonin Lvl <0.05 ng/mL See_Comment [Automate d message] (test code = The system whic h Procalcitonin Lvl) generated this result transmit fabiano reference range : <=0.10. The reference range was not used to interpret this result as normal/abnormal . [place] [address]-13 08:34:00 Test Item Value Reference Range Interpretation Comments Procalcitonin Lvl <0.05 ng/mL See_Comment [Automate d message] (test code = The system whic h Procalcitonin Lvl) generated this result transmit fabiano reference range : <=0.10. The reference range was not used to interpret this result as normal/abnormal . [place] [address]-13 08:34:00 Test Item Value Reference Range Interpretation Comments Procalcitonin Lvl <0.05 ng/mL See_Comment [Automate d message] (test code = The system whic h Procalcitonin Lvl) generated this result transmit fabiano reference range : <=0.10. The reference range was not used to interpret this result as normal/abnormal . [place] [address]-10-13 05:01:00 Test Item Value Reference Range Interpretation Comments Glucose POC (test code = Glucose POC) [address] [place] [address]-10-13 05:01:00 Test Item Value Reference Range Interpretation Comments Glucose POC (test code = Glucose POC) [address] [place] [address]-10-13 05:01:00 Test Item Value Reference Range Interpretation Comments Glucose POC (test code = Glucose POC) [address] [place] [address]-10-13 05:01:00 Test Item Value Reference Range Interpretation Comments Glucose POC (test code = Glucose POC) [address] [place] [address]-10-13 05:01:00 Test Item Value Reference Range Interpretation Comments Glucose POC (test code = Glucose POC) [address] [place] [address]-10-13 05:01:00 Test Item Value Reference Range Interpretation Comments Glucose POC (test code = Glucose POC) [address] [place] [address]-10-13 05:01:00 Test Item Value Reference Range Interpretation Comments Glucose POC (test code = Glucose POC) [address] [place] [address]-10-13 05:01:00 Test Item Value Reference Range Interpretation Comments Glucose POC (test code = Glucose POC) [address] [place] [address]-10-13 05:01:00 Test Item Value Reference Range Interpretation Comments Glucose POC (test code = Glucose POC) [address] [place] [address]-10-13 05:01:00 Test Item Value Reference Range Interpretation Comments Glucose POC (test code = Glucose POC) [address] [place] [address]-10-13 05:01:00 Test Item Value Reference Range Interpretation Comments Glucose POC (test code = Glucose POC) [address] [place] [address]-10-13 05:01:00 Test Item Value Reference Range Interpretation Comments Glucose POC (test code = Glucose POC) [address] [place] [address]-10-13 05:01:00 Test Item Value Reference Range Interpretation Comments Glucose POC (test code = Glucose POC) 123 [address] [address]-10-13 05:01:00 Test Item Value Reference Range Interpretation Comments Glucose POC (test code = Glucose POC) 123 [address] [address]-10-13 05:01:00 Test Item Value Reference Range Interpretation Comments Glucose POC (test code = Glucose POC) 123 [address] [address]-10-13 05:01:00 Test Item Value Reference Range Interpretation Comments Glucose POC (test code = Glucose POC) [address]10-13 04:37:19 Test Item Value Reference Range [...] demonstrates no gross abnormalities.Impression:No acute cardiopulmonary disease [place] [address]-10-13 04:37:19 Test Item Value Reference Range Interpretation [...] demonstrates no gross abnormalities.Impression:No acute cardiopulmonary disease [place] [address]-10-13 04:37:19 Test Item Value Reference Range Interpretation [...] demonstrates no gross abnormalities.Impression:No acute cardiopulmonary disease [place] [address]-10-13 04:37:19 Test Item Value Reference Range Interpretation [...] demonstrates no gross abnormalities.Impression:No acute cardiopulmonary disease [place] [address]-10-13 04:37:19 Test Item Value Reference Range Interpretation [...] demonstrates no gross abnormalities.Impression:No acute cardiopulmonary disease [place] [address]-10-13 04:37:19 Test Item Value Reference Range Interpretation [...] demonstrates no gross abnormalities.Impression:No acute cardiopulmonary disease [place] [address]-10-13 04:37:19 Test Item Value Reference Range Interpretation [...] demonstrates no gross abnormalities.Impression:No acute cardiopulmonary disease [place] [address]-10-13 04:37:19 Test Item Value Reference Range Interpretation [...] demonstrates no gross abnormalities.Impression:No acute cardiopulmonary disease [place] [address]-10-13 04:37:19 Test Item Value Reference Range Interpretation [...] demonstrates no gross abnormalities.Impression:No acute cardiopulmonary disease [place] [address]-10-13 04:37:19 Test Item Value Reference Range Interpretation [...] demonstrates no gross abnormalities.Impression:No acute cardiopulmonary disease [place] [address]-10-13 04:37:19 Test Item Value Reference Range Interpretation [...] demonstrates no gross abnormalities.Impression:No acute cardiopulmonary disease [place] [address]-10-13 04:37:19 Test Item Value Reference Range Interpretation [...] demonstrates no gross abnormalities.Impression:No acute cardiopulmonary disease [place] [address]-10-13 04:37:19 Test Item Value Reference Range Interpretation [...] demonstrates no gross abnormalities.Impression:No acute cardiopulmonary disease [place] [address]-10-13 04:37:19 Test Item Value Reference Range Interpretation [...] demonstrates no gross abnormalities.Impression:No acute cardiopulmonary disease [place] [address]-10-13 04:37:19 Test Item Value Reference Range Interpretation [...] demonstrates no gross abnormalities.Impression:No acute cardiopulmonary disease [id number] 04:37:19 Test Item Value Reference Range Interpretation [...] demonstrates no gross abnormalities.Impression:No acute cardiopulmonary disease [facility] CHEST W/O CONTRAST *WW*2022-04-10 13:50:[address] [facility] 1970 Sex: FCT chest [...] the upper abdomen demonstrates no significant abnormality. HAT BRIM CURLER shunt catheter tubing in the anterior right [...] Alcocer MD 04/10/2022 1:50 PM CDT Workstation: [id number] OF ABUSE *WW*2022-04-10 13:04:00 Test Item Value [...] ANG) BUN (test code = 10 mg/dL 9-23 05D) CREATININE (test 0.6 mg/dL 0.6-1.0 code = 03E) GFR (test code = 104 See_Comment [Automated GFR) mL/min/1.73m\\S\\2 message] Th e system which generated this result transmit fabiano reference range : >=90. The reference range was not used to interpret this result as normal/abnormal . GFR 120 See_Comment [Automated NAURUAN (test mL/min/1.73m\\S\\2 message] The code = GFRAA) system which generated this result transmit fabiano reference range : >=90. The reference range was not used to interpret this result as normal/abnormal . EGFR (test code = eGFR BY EGFR) CKD-EPI CALCULATION IS NOT RECOMMENDED FOR PATIENTS UNDER 18 YEARS OF AGE. BUN/CREA (test 17 12-20 code = BCR) CALCIUM (test code 8.9 [...] . ALT (test code = 14 IU/L 31A) MAGNESIUM WW2022-04-10 12:52:00 Test Item Value [...] Heparin. Order Code is ANTI-XA TROPONIN I 2022-04-10 12:48:00 Test Item Value Reference Range Interpretation Comments TROPONIN I (test code = A84) <2.50 pg/mL 0.00-45.20 CBC (INCLUDES AUTOMATED DIFFERENTIAL)*[id number] 12:34:00 Test Item Value Reference Range Interpretation [...] - Respiratory specimen by OSCAR with probe [id number] 18:41:27 Test Item Value Reference Range Interpretation Comments Influenza A (test code = Influenza negative A) Influenza B (test code = Influenza negative B) RSV (test code = RSV) negative Sars Cov 2 (test code = Sars Cov 2) negative [facility] ProgramNoninvasive colorectal cancer DNA and occult blood screening [Presence] in [id number] 00:00:00 Test Item Value Reference Range Interpretation Comments noninvasive colorectal cancer DNA + negative occult blood screening, ql, stool (test code = noninvasive colorectal cancer DNA + occult blood screening, ql, stool) [facility] ProgramURINALYSIS W/O MICROSCOPICOW 2022-02-13 16:31:00 Test Item Value [...] ABDOMEN AND PELVIS WITH CONTRAST *OW*2022-02-13 16:11:[address] [facility] : 1970 Sex: FEXAMINATION:CT AB [...] focal lesions. Bile ducts are of normal caliber.HAT BRIM CURLER shunt tubing tip at adjacent to the [...] Andrew Cardenas MD 02/13/2022 4:11 PM CDT [id number] Panel *OW* ramoan 2022-02-13 15:36:00 Test Item Value Reference Range [...] 25 mmol/L 18-33 GENERAL CHEMISTRY 13 *OW* [id number] 15:35:00 Test Item Value Reference Range Interpretation [...] NA (test code = 142 mmol/L 135-145 6599985691) K (test code = 3.5 mmol/L 3.5-5 7972825565) CL (test code = 106 mmol/L 98-108 3196920027) CO2 TOTAL (test code 30 mmol/L 23-31 = 7367268239) AGAP (test code = 2-16 7102618847) BUN (test code = 9 mg/dL 7-23 0985432956) GLUCOSE (test code = 108 mg/dL 70-110 1203484352) CREATININE (test code 0.61 mg/dL 0.5-1.04 = 5006760155) CALCIUM (test code = 9.0 mg/dL 8.6-10.6 0959679803) eGFR (test code = mL/min/1.73m2 6327311949) SILVINA (test code = SILVINA) Association of [...] or urine or abnormalities in imaging tests). [facility] WITH [id number] 15:22:45 Test Item Value Reference Range Interpretation Comments WBC (test code = See_Comment H [Automated 6690-2) message] The sy stem which generated this result transmitted reference range : 4.30 - 11.10 10*3/?L. The reference range was not used to interpret this result as normal/abnormal . RBC (test code = See_Comment [Automated 789-8) message] The sy stem which generated this [...] RDW-SD (test code = 43.5 fL 39-49.9 58629-1) RDW-CV (test code = 14.6 % 12-15.5 788-0) PLT (test code = See_Comment [Automated 777-3) message] The sy stem which generated this result transmitted reference range : 166 - 358 10*3/ ?L. The reference r quynh was not used to interpret this result as normal/abnormal . MPV (test code = 10.3 fL 9.5-12.9 99159-3) NRBC/100 WBC (test See_Comment [Automat ed code = 9252649416) message] The system which generated this result transmitted reference range : 0.0 - 10.0 /100 WBCs. The refer ence range was not u sed to interpret th is result as normal/abnormal . NRBC x10^3 (test code See_Comment [Auto mated = 1633983243) message] The s ystem which generated this result transmitted reference range : 10*3/?L. The reference range was not used to interpret this result as normal/abnormal . GRAN MAT (NEUT) % 73.9 % (test code = 770-8) IMM GRAN % (test code 0.30 % = 4621198509) LYMPH % (test code = 16.1 % 736-9) MONO % (test code = 7.9 % 5905-5) EOS % (test code = 1.4 % 713-8) BASO % (test code = 0.4 % 706-2) GRAN MAT x10^3(ANC) 8.36 10*3/uL 1.88-7.09 H (test code = 1279541028) IMM GRAN x10^3 (test 0.03 10*3/uL 0-0.06 code = 1821421788) LYMPH x10^3 (test code 1.82 10*3/uL 1.32-3.29 = 731-0) MONO x10^3 (test code 0.89 10*3/uL 0.33-0.92 = 742-7) EOS x10^3 (test code = 0.16 10*3/uL 0.03-0.39 711-2) BASO x10^3 (test code 0.04 10*3/uL 0.01-0.07 = 704-7) Lab Interpretation Abnormal (test code = 82129-2) [facility] W Auto Differential panel - Blood 2021-09-07 [...] = 706-2) immature cells (test code = apparel patternmaker immature cells) Neutrophils [#/volume] in Blood 8.4 [...] Blood by Automated count (test code = 74186-3) Immature granulocytes 0.1 x10e3/uL 0.0-0.1 [#/volume] in Blood by Automated count (test code = 05657-7) Nucleated erythrocytes/100 apparel patternmaker leukocytes [Ratio] in Blood by Automated count (test code = 19152-3) Morphology [Interpretation] in apparel patternmaker Blood Narrative (test code = 63041-9) [facility] ProgramComprehensive metabolic 2000 panel - Serum or [id number] 00:00:00 Test Item Value Reference Range Interpretation [...] mg/dL 8.7-10.2 or Plasma (test code = 90567-4) Protein [Mass/volume] in Serum 7.0 g/dL 6.0-8.5 or Plasma (test code = 2885-2) Albumin [Mass/volume] in Serum 4.2 g/dL 3.8-4.9 or Plasma (test code = 1751-7) Globulin [Mass/volume] in 2.8 g/dL 1.5-4.5 Serum by calculation (test code = 16905-7) Albumin/Globulin [Mass Ratio] 1.5 1.2-2.2 in Serum [...] or Plasma (test code = 1742-6) [facility] [Enzymatic activity/volume] in Serum or [id number] 00:00:00 Test Item Value Reference Range Interpretation Comments Lipase [Enzymatic activity/volume] in 32 U/L 14-72 Serum or Plasma (test code = 3040-3) [facility] W Auto Differential panel - Blood 2021-09-07 [...] = 706-2) immature cells (test code = apparel patternmaker immature cells) Neutrophils [#/volume] in Blood 8.4 [...] Blood by Automated count (test code = 92086-4) Immature granulocytes 0.1 x10e3/uL 0.0-0.1 [#/volume] in Blood by Automated count (test code = 43678-8) Nucleated erythrocytes/100 apparel patternmaker leukocytes [Ratio] in Blood by Automated count (test code = 41648-9) Morphology [Interpretation] in apparel patternmaker Blood Narrative (test code = 40791-1) [facility] 2000 panel - Serum or [id number] 00:00:00 Test Item Value Reference Range Interpretation [...] in Serum or Plasma (test code = 2027-) Calcium [Mass/volume] in Serum 9.4 mg/dL 8.7-10.2 or Plasma (test code = 44558-5) Protein [Mass/volume] in Serum 7.0 g/dL 6.0-8.5 or Plasma (test code = 2885-2) Albumin [Mass/volume] in Serum 4.2 g/dL 3.8-4.9 or Plasma (test code = 1751-7) Globulin [Mass/volume] in 2.8 g/dL 1.5-4.5 Serum by calculation (test code = 66986-9) Albumin/Globulin [Mass Ratio] 1.5 1.2-2.2 in Serum or Plasma (test code = 1759-0) Bilirubin.total [Mass/volume] 0.4 mg/dL 0.0-1.2 in Serum or Plasma (test code = 1974-) Alkaline phosphatase 138 IU/L 44-121 H [Enzymatic activity/volume] in Serum or Plasma (test code = 6768-6) Aspartate aminotransferase 21 IU/L 0-40 [Enzymatic activity/volume] in Serum or Plasma (test code = 1919-8) Alanine aminotransferase 25 IU/L 0-32 [Enzymatic activity/volume] in Serum or Plasma (test code = 1742-6) [facility] [Enzymatic activity/volume] in Serum or [id number] 00:00:00 Test Item Value Reference Range Interpretation Comments Lipase [Enzymatic activity/volume] in 32 U/L 14-72 Serum or Plasma (test code = 3040-3) [facility] A + B and SARS CoV 2 (COVID-19) and RSV RNA panel, OSCAR+probe, respiratory [id number] 20:23:00 Test Item Value Reference Range Interpretation Comments Influenza A (test code = Influenza negative A) Influenza B (test code = Influenza negative B) RSV (test code = RSV) negative Sars Cov 2 (test code = Sars Cov 2) positive [facility] WH 2021-03-13 16:58:00 Test Item Value Reference Range Interpretation Comments SARS-CoV (ANTIGEN) NEGATIVE NEGATIVE (test code = COVAG) COVID AG (test This test has been code = COVAGC) marketed under the FDA Emergency Use Authorization (EUA) to meet challenges of the COVID-19 pandemic. The validation standards normally enforced by the FDA and the [employer] the [employer] [employer] (CAP) are more stringent than those [...] [Auto mated message] = GDDI) The system [employer] generated this result transmitted ref erence range: [...] as aleks l/abnormal. MetyLyte 8 Panel *OW* [id number] 15:13:00 Test Item Value Reference Range Interpretation [...] XR CHEST 1 VIEW PORTABLE *OW*2021-03-13 14:51:[address] [facility] : 1970 Sex: FCHEST, FRONTAL VIEW HISTORY: cough sobCOMPARISON: None.FINDINGS: The lungs are clear without consolidation. No pleural effusion or pneumothorax. The heart size is normal. The bones are unremarkable.IMPRESSION:No evidence of acute cardiopulmonary disease.Electronically signed by: Arben Dow MD 03/13/2021 2:51 PMCDT [id number] 10:20:00 Test Item Value Reference Range Interpretation [...] the FDA and the [employer] [place] [employer] (CAP) are more stringent than those required for this test. Therefore, the result should be interpreted with caution and close attention to other clinical and epidemiological data INFLUENZA A AND B OW2020-07-16 16:10:00 Test Item Value Reference Range Interpretation Comments INFLUENZ A (test code = INFA) NEGATIVE NEGATIVE INFLUENZ B (test code = INFB) NEGATIVE NEGATIVE METLAC 12 PANEL *OW* [id number] 16:06:00 Test Item Value Reference Range Interpretation [...] 4.0 mg/dL 2.2-4.1 [employer] 8 Panel *OW* [id number] 16:02:00 Test Item Value Reference Range Interpretation [...] 30 mmol/L 18-33 GENERAL CHEMISTRY 13 *OW* [id number] 15:51:00 Test Item Value Reference Range Interpretation [...] Comprehensive metabolic 2000 panel - Serum or [id number] 00:00:00 Test Item Value Reference Range Interpretation [...] code = ALT) 83 U/L 5-40 H [facility] ProgramMicroalbumin/Creatinine [Mass Ratio] in [id number] 00:00:00 Test Item Value Reference Range Interpretation Comments creatinine, urine, conc. (test 171.3 mg/dL not estab code = creatinine, urine, conc.) albumin, urine, random (test code 1.2 mg/dL = albumin, urine, random) calc albumin/creat, rnd (test 7 mg/g <30 code = calc albumin/creat, rnd) [facility] ProgramCBC W Auto Differential panel - Blood 2020-05-12 [...] code = 245 K/uL 130-400 platelet count) [facility]ham[facility]yrot[facility] [Units/volume] in Serum or [id number] 00:00:00 Test Item Value Reference Range Interpretation Comments TSH reflex to free T4 (test code 1.040 uIU/mL 0.400-4.100 = TSH reflex to free T4) [facility] 1996 panel - Serum or Plasma 2020-05-12 [...] = 2.65 ratio <3.22 risk ratio LDL/HDL) [facility] W/O MICROSCOPICOW 2020-05-01 15:38:00 Test Item Value [...] code = LEUK) MAMMOGRAM SCREENING CAD INC [id number] 09:11:15Addendum:Comparison is made to outside exam dated 04/17/18. The breast parenchymademonstrates scattered fibroglandular elements without change. No developingmass or clustered microcalcifications.Impression:1. ACR BI-RADS 2, benign findings.Recommendations: Routine yearly mammographic follow-up.SCR MAMM BILATERAL CAD [id number] 11:12:20 - SCR MAMM BILATERAL CAD DIGITALBILATERAL DIGITAL SCREENING MAMMOGRAM WITH CAD: 04/17/2018CLINICAL: Asymptomatic. Current mammographic images were evaluated by either a G-mode M-Vu or a TSCAer CAD (computer aided detection system). Several unsuccessful [...] for additional imaging will be reassessed. Kiel lópez/maki:05/07/2018 11:12:20 Audiovisual Tech: Elizabeth Del Angel, [facility]-RGletter sent: BIRADS 1-2 Normal Mammogram BI-RADS: 1 Negative
[2022-10-30] MEDS ORDERED: ALTEPLASE 100 MG/100 ML IV ONE (13:35)
--- NOTE | 2022-10-30 13:44 | RAD REPORT ---
EXAM DESCRIPTION: CT - Chest For Pe Angio - 10/30/2022 1:31 pm CLINICAL HISTORY: Chest pain COMPARISON: September 2022 TECHNIQUE: Dynamically enhanced axial 3 mm thick images of the chest were obtained during administra tion of 100 mL Isovue 370 IV contrast. Coronal and oblique reconstruction images were generated and r eviewed. Exam utilizes a protocol for optimal evaluation of pulmonary arterial tree. Maximum intensity projections 3D imaging was utilized All CT scans are performed using dose optimization technique as appropriate and may include automated exposure control or mA/KV adjustment according to patient size. FINDINGS: A pulmonary embolus is not seen. A thoracic aortic aneurysm is not noted. A pleural effusion is not seen. A pericardial effusion is not seen. A lung consolidation is not present. Superior mediastinal soft tissue not clearly visualized Opacification and distention of the azygos and connie azygous veins. IMPRESSION: Negative for a pulmonary embolism.
--- NOTE | 2022-10-30 13:50 | RAD REPORT ---
EXAM DESCRIPTION: CT - Abdomen Pelvis W Contrast - 10/30/2022 1:31 pm CLINICAL HISTORY: Abdominal pain COMPARISON: none. TECHNIQUE: Computed axial tomography of the abdomen pelvis was obtained. 100 cc Isovue-300 was admin istered intravenously. Oral contrast was not requested which limits evaluation of bowel and appendix All CT scans are performed using dose optimization technique as appropriate and may include automated exposure control or mA/KV adjustment according to patient size. FINDINGS: Hepatic cyst unchanged The Spleen, pancreas, adrenal and kidneys appear unremarkable. There is no evidence of diverticulitis. No adnexal mass Tip of a MEDICAL RECORDS RECEPTIONIST shunt superior right upper quadrant IMPRESSION: No acute abnormality is displayed.
[2022-10-30] MEDS ORDERED: FENTANYL CITR 100 MCG/2 ML ONE (13:53)
[2022-10-30] MEDS ORDERED: ONDANSETRON 4 MG/2 ML VIAL ONE (13:54)
--- NOTE | 2022-10-30 13:56 | RAD REPORT ---
EXAM DESCRIPTION: Samm Single View10/30/2022 1:04 pm CLINICAL HISTORY: cough COMPARISON: none FINDINGS: The lungs appear clear of acute infiltrate. The heart is normal size IMPRESSION: No acute abnormalities displayed
[2022-10-30 14:00] LABS: Blood Morphology Comment NOT SEEN (NOT SEEN); Platelet Estimate ADEQ
[2022-10-30 14:05] LABS: Blood Gas Oxyhemoglobin 92.6 % (94-97); Blood O2 Saturation 94.8 % (92-98.5)
[2022-10-30 14:15] LABS: Urine Bilirubin NEGATIVE (Negative); Urine Blood Negative (Negative); Urine Clarity Clear (Clear); Urine Color Colorless (Yellow); Urine Glucose NEGATIVE (Negative); Urine Protein NEGATIVE (Negative); Urine Urobilinogen Normal (Normal)
--- NOTE | 2022-10-30 14:21 | ER ---
Nurse's Notes [facility] Name: Mela Carpio Age: 52 yrs Sex: Female : 1970 Arrival Date: 10/30/2022 Time: 12:33 Bed 3 Private MD: Diagnosis: Chest pain on breathing;Chest pain, unspecified;Essential (primary) hypertension;Tachycardia, unspecified;Acute embolism and thrombosis of deep veins of right upper extremity Presentation: 10/30 12:35 Chief complaint: Pt's daughter states "we were just at the doctor's office and she aa5 walked to the restroom but when she got out she was feeling cold and shaky and her lips were blue". Pt currently cyanotic at the lips. Pt appears distressed and hyperventilating. Pt's daughter also states "they ordered an ultrasound to check for a blood clot on her right arm where she has the PICC line". 12:35 Coronavirus screen: shortness of breath. Ebola Screen: Patient denies travel to an [facility] Ebola-affected area in the 21 days before illness onset. Initial Sepsis Screen: Does the patient meet any 2 criteria? RR > 20 per min. HR > 90 bpm. Does the patient have a suspected source of infection? No. Patient's initial sepsis screen is negative. Risk Assessment: Do you want to hurt yourself or someone else? Patient reports no desire to harm self or others. Onset of symptoms was October 2022. 12:35 Acuity: DAYSI 1 aa5 12:35 Method Of Arrival: Wheelchair aa5 Triage Assessment: 13:56 Respiratory: ap3 18:00 Respiratory: Reports. 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 - Social history:: Smoking status: Patient denies any tobacco usage or history of. Screenin:20 [facility] ED Fall Risk Assessment (Adult) History of falling in the last 3 months, ld1 including since admission No falls in past 3 months (0 pts). Abuse screen: Denies threats or abuse. Denies injuries from another. Nutritional screening: No deficits noted. Tuberculosis screening: No symptoms or risk factors identified. Assessment: 13:15 Reassessment: Received patient from triage. Pt diaphoretic, cyanotic, tachypnea. Family ld1 reports sudden onset of shortness of breath at Dr. Oliva office 30 minutes ago. Pt c/o shortness of breath and pain to left side of body. Inserted 20g LFA - NS with rapid infuser applied. Non rebreather to pt at 15lpm. ERP at bedside. Transferred patient to trauma 3 - gave report to GREGORIO Rosenbaum \\T\\ Mela Byrd RN. Placed patient on defib pads. General: Appears distressed, uncomfortable, Behavior is cooperative, anxious. Pain: Complains of pain in left arm and left leg Pain does not radiate. Pain currently is 8 out of 10 on a pain scale. Quality of pain is described as sharp, shooting, throbbing, Pain began 30 min ago. Is continuous. Neuro: Level of Consciousness is awake, alert, obeys commands, Oriented to person, place, time, situation. Cardiovascular: Reports chest pain, shortness of breath, Capillary refill < 3 seconds Patient's skin is warm and dry. Rhythm is SVT Chest pain is described as mild. Respiratory: Airway is patent Respiratory effort is even, labored, Respiratory pattern is hyperventilation Breath sounds are clear bilaterally. GI: Abdomen is flat, non-distended. : No signs and/or symptoms were reported regarding the genitourinary system. EENT: No signs and/or symptoms were reported regarding the EENT system. Derm: No signs and/or symptoms reported regarding the dermatologic system. Musculoskeletal: No signs and/or symptoms reported regarding the musculoskeletal system. 13:15 Reassessment: Report received from GREGORIO Flor. ramos 13:22 Reassessment: pt taken to CT via stretcher and with Charge nurse, GREGORIO Holguin and RT. ramos 13:37 Reassessment: Back from CT. Pt is in ER room 3. Awaiting CT results. Respirations ss remain even. Family at bedside. 14:31 Reassessment: ultrasound at bedside. ap3 14:35 Cardiovascular: Rhythm is sinus tachycardia. Respiratory: Airway is patent Respiratory mb9 effort is even, unlabored, Respiratory pattern is regular, symmetrical, Breath sounds are clear bilaterally. Vital Signs: 12:35 BP 161 / 87; Pulse 167; Resp 48 S; Temp 98.1(O); Pulse Ox 97% on R/A; aa5 13:15 Weight 81 kg; mb9 13:15 BP 166 / 93; Pulse 197; Resp 50; Pulse Ox 98% on R/A; ld1 13:37 BP 148 / 129; Pulse 133; Resp 24; Pulse Ox 100% on Non-rebreather mask; ap3 13:52 BP 125 / 68; Pulse 143; Resp 19; ap3 14:18 BP 129 / 71; Pulse 131; Pulse Ox 100% on 4 lpm NC; ap3 14:30 BP 131 / 73; Pulse 124; Pulse Ox 100% 4 lpm ; ap3 14:55 BP 126 / 77; Pulse 123; ap3 15:12 BP 126 / 75; Pulse 119; Resp 19; Pulse Ox 100% on 2 lpm NC; ap3 15:41 BP 119 / 71; Pulse 116; Pulse Ox 99% on 2 lpm NC; ap3 ED Course: 12:34 Patient arrived in ED. am2 12:35 Arm band placed on. aa5 12:40 Notified ED physician of vital signs. ld1 12:41 Ricardo Fonseca MD is Attending Physician. cherise 12:52 Triage completed. aa5 13:06 XRAY Chest (1 view) In Process Unspecified. EDMS 13:10 Report given to GREGORIO Rosenbaum \\T\\ Mela Byrd RN. ld1 13:20 Patient has correct armband on for positive identification. Placed in gown. Bed in low ld1 position. Call light in reach. Side rails up X2. alarm security or surveillance monitor on. Pulse ox on. NIBP on. Door closed. Noise minimized. Warm blanket given. 13:20 Inserted saline lock: 20 gauge in left forearm, using aseptic technique. Blood ld1 collected. 13:32 CT Chest For PE Angio In Process Unspecified. EDMS 13:32 CT Abd/Pelvis - IV Contrast Only In Process Unspecified. EDMS 14:10 Mela Dean, GREGORIO is Primary Nurse. mb9 14:18 Kartik Garcia is Hospitalizing Provider. cherise 14:36 Ptt, Activated Sent. mb9 14:42 UPPER EXTREMITY VENOUS BILAT In Process Unspecified. EDMS 14:53 Tiwari cath inserted, using sterile technique, 16 Fr., by co, balloon inflated, to ap3 gravity drainage, returned clear yellow urine. Patient tolerated well. 14:54 No provider procedures requiring assistance completed. ap3 15:41 Ilsa Mcfadden, RN is Primary Nurse. ap3 18:00 Patient admitted, IV remains in place. ap3 Administered Medications: 13:08 CANCELLED (Duplicate Order): Heparin (DVT/PE- Bolus per protocol) - HEParin IVP 80 cherise units/kg IVP once; Max 8,000 units 13:21 Drug: Heparin (DVT/PE- Bolus per protocol) - HEParin IVP 80 units/kg {Co-Signature: ap3 mb9 (Ilsa Mcfadden RN).} Route: IVP; Site: PICC; 17:24 Follow up: Response: No adverse reaction ap3 13:23 Drug: NS 0.9% IV 1000 ml Route: IV; Rate: 1 bolus; Site: PICC; mb9 14:56 Follow up: Response: No adverse reaction; IV Status: Completed infusion ap3 13:51 Drug: fentaNYL (PF) IVP 25 mcg Route: IVP; Site: right forearm; ap3 14:55 Follow up: Response: No adverse reaction; Pain is decreased ap3 13:52 Drug: Ondansetron IVP 4 mg Route: IVP; Site: right forearm; ap3 14:55 Follow up: Response: No adverse reaction ap3 14:02 Not Given (Duplicate Order): Activase 100 mg IV at per protocol once; administer over 2 cherise hrs 14:18 Drug: Famotidine IVP 20 mg Route: IVP; Site: left forearm; ap3 17:24 Follow up: Response: No adverse reaction ap3 14:18 Drug: Metoprolol PO 50 mg Route: PO; ap3 14:55 Follow up: Response: No adverse reaction ap3 14:30 Drug: fentaNYL (PF) IVP 25 mcg Route: IVP; Site: left forearm; ap3 14:56 Follow up: Response: No adverse reaction; Pain is decreased ap3 14:30 Drug: Metoprolol IVP 5 mg Route: IVP; Site: left forearm; ap3 14:55 Follow up: Response: No adverse reaction ap3 14:41 Drug: Heparin (CT Drip) - (D5W IV 500 ml, [place] [address] units) 12 units/kg/hr mb9 {Co-Signature: ap3 (Ilsa Mcfadden RN).} Route: IV; Rate: calculated rate; Site: left forearm; 17:23 Follow up: IV Status: Order to discontinue infusion; pt admitted. admission orders do ap3 not include heparin. pt will receive different therapy 15:12 Drug: Aspirin PO Chewable Tablet 81 mg Route: PO; ap3 17:24 Follow up: Response: No adverse reaction ap3 15:12 Drug: Metoprolol IVP 5 mg Route: IVP; Site: left forearm; ap3 17:22 Follow up: Response: No adverse reaction ap3 15:16 Drug: NS 0.9% IV 1000 ml Route: IV; Rate: 1 bolus; Site: left forearm; mb9 17:24 Follow up: IV Status: Completed infusion ap3 Medication: 13:20 VIS not applicable for this client. ld1 Intake: Outcome: 14:20 Decision to Hospitalize by Provider. cherise 18:00 Admitted to ICU accompanied by nurse, via stretcher, room 7, on monitor, with chart. ap3 18:00 Condition: good 18:00 Instructed on the need for admit. 18:00 Patient left the ED. ap3 Signatures: Dispatcher [employer] Ricardo Dixon MD MD cha Calderon, Audri, RN RN aa5 Chelsie Batista RN RN ss Moreno, Amanda am2 Prokisch, Amanda, RN RN ap3 Basia Vargas RN RN ld1 Mela Dean RN RN mb9 Ilsa Mcfadden RN ap3 Corrections: (The following items were deleted from the chart) 15:16 13:10 NS 0.9% IV 1000 ml IV at 1 bolus in left forearm ap3 ap3 15:16 15:14 IV Status: Completed infusion ap3 ap3
--- NOTE | 2022-10-30 14:21 | EDPHYS ---
Physician Documentation [facility] Name: Mela Carpio Age: 52 yrs Sex: Female : 1970 Arrival Date: 10/30/2022 Time: 12:33 Bed 3 Private MD: ED Physician Ricardo Fonseca HPI: 10/30 14:03 This 52 yrs old Female presents to ER via Wheelchair with complaints of cherise Shortness Of Breath, Near Syncope. 14:03 The patient has shortness of breath with light activity. Onset: The symptoms/episode cherise began/occurred just prior to arrival. Duration: The symptoms are continuous, and are steadily getting worse. The patient's shortness of breath is aggravated by nothing, is alleviated by application of supplemental oxygen. Associated signs and symptoms: Pertinent positives: chest pain, non-productive cough. Severity of symptoms: At their worst the symptoms were moderate severe in the emergency department the symptoms are unchanged. The patient has not experienced similar symptoms in the past. 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 - Social history:: Smoking status: Patient denies any tobacco usage or history of. ROS: 14:07 Constitutional: Negative for fever, chills, and weight loss, Eyes: Negative for injury, cherise pain, redness, and discharge, ENT: Negative for injury, pain, and discharge, Neck: Negative for injury, pain, and swelling, Abdomen/GI: Negative for abdominal pain, nausea, vomiting, diarrhea, and constipation, Back: Negative for injury and pain, : Negative for injury, bleeding, discharge, and swelling, MS/Extremity: Negative for injury and deformity, Skin: Negative for injury, rash, and discoloration, Neuro: Negative for headache, weakness, numbness, tingling, and seizure. 14:07 Cardiovascular: Positive for chest pain, of the chest. 14:07 Respiratory: Positive for dyspnea on exertion, shortness of breath, at rest. Exam: 14:07 Head/Face: Normocephalic, atraumatic. Eyes: Pupils equal round and reactive to light, cherise extra-ocular motions intact. Lids and lashes normal. Conjunctiva and sclera are non-icteric and not injected. Cornea within normal limits. Periorbital areas with no swelling, redness, or edema. ENT: Nares patent. No nasal discharge, no septal abnormalities noted. Tympanic membranes are normal and external auditory canals are clear. Oropharynx with no redness, swelling, or masses, exudates, or evidence of obstruction, uvula midline. Mucous membranes moist. Neck: Trachea midline, no thyromegaly or masses palpated, and no cervical lymphadenopathy. Supple, full range of motion without nuchal rigidity, or vertebral point tenderness. No Meningismus. Chest/axilla: Normal chest wall appearance and motion. Nontender with no deformity. No lesions are appreciated. Respiratory: Lungs have equal breath sounds bilaterally, clear to auscultation and percussion. No rales, rhonchi or wheezes noted. No increased work of breathing, no retractions or nasal flaring. Abdomen/GI: Soft, non-tender, with normal bowel sounds. No distension or tympany. No guarding or rebound. No evidence of tenderness throughout. Back: No spinal tenderness. No costovertebral tenderness. Full range of motion. Skin: Warm, dry with normal turgor. Normal color with no rashes, no lesions, and no evidence of cellulitis. MS/ Extremity: Pulses equal, no cyanosis. Neurovascular intact. Full, normal range of motion. Neuro: Awake and alert, GCS 15, oriented to person, place, time, and situation. Cranial nerves II-XII grossly intact. Motor strength 5/5 in all extremities. Sensory grossly intact. Cerebellar exam normal. Normal gait. Psych: Awake, alert, with orientation to person, place and time. Behavior, mood, and affect are within normal limits. 14:07 Constitutional: The patient appears in obvious distress, moderately distressed. 14:07 Cardiovascular: Rate: tachycardic, actual rate is 162 bpm, Rhythm: regular, Pulses: Pulses are 4+ in bilateral radial, brachial, femoral, popliteal, posterior tibial and and dorsalis pedis arteries.. Heart sounds: normal, Edema: is not appreciated, JVD: is not appreciated. 14:07 ECG was reviewed by the Attending Physician. 14:13 ECG was reviewed by the Attending Physician. hcerise Vital Signs: 12:35 BP 161 / 87; Pulse 167; Resp 48 S; Temp 98.1(O); Pulse Ox 97% on R/A; aa5 13:15 Weight 81 kg; mb9 13:15 BP 166 / 93; Pulse 197; Resp 50; Pulse Ox 98% on R/A; ld1 13:37 BP 148 / 129; Pulse 133; Resp 24; Pulse Ox 100% on Non-rebreather mask; ap3 13:52 BP 125 / 68; Pulse 143; Resp 19; ap3 14:18 BP 129 / 71; Pulse 131; Pulse Ox 100% on 4 lpm NC; ap3 14:30 BP 131 / 73; Pulse 124; Pulse Ox 100% 4 lpm ; ap3 14:55 BP 126 / 77; Pulse 123; ap3 15:12 BP 126 / 75; Pulse 119; Resp 19; Pulse Ox 100% on 2 lpm NC; ap3 15:41 BP 119 / 71; Pulse 116; Pulse Ox 99% on 2 lpm NC; ap3 MDM: 12:41 Patient medically screened. cherise 14:14 Differential diagnosis: Anemia Anxiety Reaction asthma, Bronchitis CHF exacerbation, cherise Chronic Obstructive Pulmonary Disease abnormal EKG, acute myocardial infarction, acute pericarditis, anxiety, cholecystitis, Cholelithiasis costochondritis, esophagitis, gastritis, gastroesophageal reflux disease (GERD), herpes zoster, hiatal hernia, pancreatitis, peptic ulcer disease, pneumonia, pneumothorax, pulmonary embolus, stable angina, thoracic aortic disection, unstable angina, Myocardial Infarction pneumonia, Pneumothorax Psychogenic pulmonary edema. Antibiotic administration: Not indicated, the patient does not have an appreciated infiltrate. Differential Diagnosis sepsis, flu. HEART Score: History: Moderately Suspicious (1), ECG: Non specific repolarization disturbance / LBTB / PM (1), Age: > 45 and < 65 years (1), Risk Factors: > or = 3 Risk factors for atherosclerotic disease (2), [+ Family HX] [Obesity] Troponin: < or = 1 x Normal Limit (0). The patient was given aspirin in the Emergency Department. SHEILA Risk Score: 1 - Three or more CAD risk factors, TOTAL SCORE = 1. Immunization status: Influenza vaccine: Data reviewed: vital signs, nurses notes, EMS record, lab test result(s), EKG, radiologic studies, CT scan, plain films. Consideration of Admission/Observation Patient was admitted/placed on observation. Escalation of care including admission/observation considered. I considered the following discharge prescriptions or medication management in the emergency department Medications were administered in the Emergency Department. See MAR. Test considered but Not performed: MRI: no mri chest. Care significantly affected by the following chronic conditions: Obesity, Cancer. Counseling: I had a detailed discussion with the patient and/or guardian regarding: the historical points, exam findings, and any diagnostic results supporting the discharge/admit diagnosis, the presence of at least one elevated blood pressure reading (>120/80) during this emergency department visit, lab results, radiology results, the need for further work-up and treatment in the hospital. 10/30 12:42 Order name: Basic Metabolic Panel; Complete Time: 13:36 [facility] 10/30 12:42 Order name: CBC with Diff; Complete Time: 14:29 [facility] 10/30 12:42 Order name: LFT's; Complete Time: 13:36 [facility] 10/30 12:42 Order name: Magnesium; Complete Time: 13:36 cherise 10/30 12:42 Order name: NT PRO-BNP; Complete Time: 13:36 cherise 10/30 12:42 Order name: PT-INR; Complete Time: 13:36 cherise 10/30 12:42 Order name: Troponin HS; Complete Time: 13:36 cherise 10/30 12:42 Order name: TSH; Complete Time: 13:36 cherise 10/30 12:42 Order name: Urinalysis w/ reflexes; Complete Time: 14:29 cherise 10/30 12:42 Order name: Lipase; Complete Time: 13:36 cherise 10/30 12:42 Order name: SARS RAPID; Complete Time: 13:36 [facility] 10/30 12:42 Order name: Flu; Complete Time: 13:36 cherise 10/30 13:49 Order name: ABG [facility] 10/30 14:01 Order name: Manual Differential; Complete Time: 14:29 EDMS 10/30 14:18 Order name: Ptt, Activated; Complete Time: 15:27 mb9 10/30 15:32 Order name: Magnesium [facility]LA 10/30 15:32 Order name: Phosphorus EDMS 10/30 15:32 Order name: T4 Free [facility]LA 10/30 15:32 Order name: Thyroid Stimulating Hormone [facility]LA 10/30 15:32 Order name: Urinalysis w/ reflexes [facility]LA 10/30 15:32 Order name: Basic Metabolic Panel [facility]LA 10/30 15:32 Order name: Basic Metabolic Panel [facility] 10/30 15:32 Order name: CBC with Automated Diff [facility] 10/30 15:32 Order name: CBC with Automated Diff [facility] 10/30 12:42 Order name: XRAY Chest (1 view); Complete Time: 14:02 [facility] 10/30 13:01 Order name: CT Chest For PE Angio; Complete Time: 14:02 [facility] 10/30 13:14 Order name: UPPER EXTREMITY VENOUS BILAT; Complete Time: 15:27 [facility] 10/30 13:18 Order name: CT Abd/Pelvis - IV Contrast Only; Complete Time: 14:02 [facility] 10/30 15:35 Order name: Echo with Doppler [facility] 10/30 12:42 Order name: EKG; Complete Time: 12:43 [facility] 10/30 15:32 Order name: CONS Physician Consult [facility] 10/30 15:32 Order name: Heart Healthy [facility] 10/30 12:42 Order name: Cardiac monitoring; Complete Time: 12:50 [facility] 10/30 12:42 Order name: EKG - Nurse/Tech; Complete Time: 12:50 [facility] 10/30 12:42 Order name: IV Saline Lock; Complete Time: 13:21 [facility] 10/30 12:42 Order name: Labs collected and sent; Complete Time: 13:21 [facility] 10/30 12:42 Order name: O2 Per Protocol; Complete Time: 13:21 [facility] 10/30 12:42 Order name: O2 Sat Monitoring; Complete Time: 13:21 [facility] 10/30 13:49 Order name: Oxygen Per Protocol; Complete Time: 14:10 [facility] 10/30 14:11 Order name: Tiwari; Complete Time: 14:53 mb9 EC:07 Rate is 166 beats/min. Rhythm is regular. QRS [place] is Normal. VA interval is normal. cherise QRS interval is normal. QT interval is normal. No Q waves. T waves are Normal. No ST changes noted. Clinical impression: Sinus tachycardia and No evidence of ischemia. Interpreted by me. Reviewed by me. 14:13 Rate is 170 beats/min. Rhythm is regular. QRS [place] is Normal. VA interval is normal. cherise QRS interval is normal. QT interval is normal. No Q waves. T waves are Normal. No ST changes noted. Clinical impression: Sinus tachycardia and No evidence of ischemia. Interpreted by me. Reviewed by me. Administered Medications: 13:08 CANCELLED (Duplicate Order): Heparin (DVT/PE- Bolus per protocol) - HEParin IVP 80 cherise units/kg IVP once; Max 8,000 units 13:21 Drug: Heparin (DVT/PE- Bolus per protocol) - HEParin IVP 80 units/kg {Co-Signature: ap3 mb9 (Ilsa Mcfadden RN).} Route: IVP; Site: PICC; 17:24 Follow up: Response: No adverse reaction ap3 13:23 Drug: NS 0.9% IV 1000 ml Route: IV; Rate: 1 bolus; Site: PICC; mb9 14:56 Follow up: Response: No adverse reaction; IV Status: Completed infusion ap3 13:51 Drug: fentaNYL (PF) IVP 25 mcg Route: IVP; Site: right forearm; ap3 14:55 Follow up: Response: No adverse reaction; Pain is decreased ap3 13:52 Drug: Ondansetron IVP 4 mg Route: IVP; Site: right forearm; ap3 14:55 Follow up: Response: No adverse reaction ap3 14:02 Not Given (Duplicate Order): Activase 100 mg IV at per protocol once; administer over 2 cherise hrs 14:18 Drug: Famotidine IVP 20 mg Route: IVP; Site: left forearm; ap3 17:24 Follow up: Response: No adverse reaction ap3 14:18 Drug: Metoprolol PO 50 mg Route: PO; ap3 14:55 Follow up: Response: No adverse reaction ap3 14:30 Drug: fentaNYL (PF) IVP 25 mcg Route: IVP; Site: left forearm; ap3 14:56 Follow up: Response: No adverse reaction; Pain is decreased ap3 14:30 Drug: Metoprolol IVP 5 mg Route: IVP; Site: left forearm; ap3 14:55 Follow up: Response: No adverse reaction ap3 14:41 Drug: Heparin (SD Drip) - (D5W IV 500 ml, [place] [address] units) 12 units/kg/hr mb9 {Co-Signature: ap3 (Ilsa Mcfadden RN).} Route: IV; Rate: calculated rate; Site: left forearm; 17:23 Follow up: IV Status: Order to discontinue infusion; pt admitted. admission orders do ap3 not include heparin. pt will receive different therapy 15:12 Drug: Aspirin PO Chewable Tablet 81 mg Route: PO; ap3 17:24 Follow up: Response: No adverse reaction ap3 15:12 Drug: Metoprolol IVP 5 mg Route: IVP; Site: left forearm; ap3 17:22 Follow up: Response: No adverse reaction ap3 15:16 Drug: NS 0.9% IV 1000 ml Route: IV; Rate: 1 bolus; Site: left forearm; mb9 17:24 Follow up: IV Status: Completed infusion ap3 Disposition Summary: 10/30/22 14:20 Hospitalization Ordered Hospitalization Status: Inpatient Admission cherise Provider: Kartik Garcia cha Location: Intensive Care Unit cherise Condition: Fair cherise Problem: new cherise Symptoms: have improved cherise Bed/Room Type: Standard cherise Room Assignment: 7-(10/30/22 16:07) dw Diagnosis - Chest pain on breathing cherise - Chest pain, unspecified cherise - Essential (primary) hypertension cherise - Tachycardia, unspecified cherise - Acute embolism and thrombosis of deep veins of right upper extremity cherise Forms: - Medication Reconciliation Form cherise - SBAR form cherise Signatures: Dispatcher [employer] Cass Bronson RN RN dw Anderson, Corey, MD MD cha Calderon, Audri RN RN aa5 Ilsa Mcfadden RN RN ap3 Mela Dean RN RN mb9 Ilsa Mcfadden RN ap3 Corrections: (The following items were deleted from the chart) 13:08 13:02 Heparin (DVT/PE- Bolus per protocol) - HEParin IVP 80 units/kg IVP once; Max cherise 8,000 units ordered. cherise 13:14 13:06 Extrem Venous W Compression [id number] ordered. EDMS EDMS 14:30 14:20 Hypokalemia cherise cherise 16:07 14:20 cherise dw
[2022-10-30] MEDS ORDERED: HEPARIN/D5W 25,000 UNIT/500 ML BAG IV ONE (14:28)
--- NOTE | 2022-10-30 15:03 | RAD REPORT ---
EXAM DESCRIPTION: US - UPPER EXTREMITY VENOUS BILAT - 10/30/2022 2:40 pm CLINICAL HISTORY: Arm swelling COMPARISON: none FINDINGS: Right PICC line in place. Echogenic material consistent with acute thrombus is present within the right subclavian and right ax illary veins. There is little blood flow. Right jugular vein patent The jugular, left subclavian, left axillary, left brachial, left basilic, left ulnar veins are comp ressible. Doppler demonstrates good flow Grayscale, color and spectral analysis performed on all vessels IMPRESSION: Acute thrombus right subclavian and axillary veins
--- NOTE | 2022-10-30 15:35 | P.HP ---
Certification for Inpatient Patient admitted to: Inpatient With expected LOS: >2 Midnights Patient will require the following post-hospital care: None Practitioner: I am a practitioner with admitting privileges, knowledge of patient current condition, hospital course, and medical plan of care. Services: Services provided to patient in accordance with Admission requirements found in Title 42 Section 412.3 of the Code of Federal Regulations Patient History Date of Service: 10/30/22 Reason for admission: Chest pain, generalized pain, History of Present Illness: Patient is a 52-year-old female with a past medical history significant for lymphoma currently on chemotherapy, CVA, hydrocephalus who presents with complaint of chest pain that has been ongoing intermittently for the past 5 months but became worse in the last 2 days. Patient indicated that chest pain is located in the right chest wall. Patient rated pain as 10/10 and described pain as aching in quality. Patient also reports generalized body\joint pains. Patient reported associated signs and symptoms of fatigue, weakness and generalized malaise. Patient denies any other signs or symptoms. Symptoms are aggravated or relieved by nothing. Patient was brought to the hospital for medical evaluation. Allergies morphine Allergy (Verified 08/12/22 10:50) Anaphylaxis - Past Medical/Surgical History -: Lymphoma -: CVA -: TIA -: Hydrocephalus -: section. -: Hysterectomy -: CHILDCARE TEACHER shunt - Family History Family History: Reviewed- Non-Contributory - Social History Smoking Status: Never smoker Alcohol use: No CD- Drugs: No Caffeine use: No Place of Residence: Home Review of Systems General: Weakness, Malaise, Other (Fatigue) Eyes: Unremarkable ENT: Unremarkable Respiratory: Unremarkable Cardiovascular: Chest Pain Gastrointestinal: Unremarkable Genitourinary: Unremarkable Musculoskeletal: Other (Generalized body\joint pains) Integumentary: Unremarkable Neurological: Weakness Lymphatics: Unremarkable Physical Examination - Physical Exam General: Alert, Oriented x3, Cooperative, Mild distress HEENT: Atraumatic, PERRLA, Mucous membr. moist/pink, EOMI, Sclerae nonicteric Neck: Supple, 2+ carotid pulse no bruit, No LAD, Without JVD or thyroid abnormality Respiratory: Normal air movement Cardiovascular: No edema, Regular rate/rhythm, Normal S1 S2 Capillary refill: <2 Seconds Gastrointestinal: Normal bowel sounds, Soft and benign, No tenderness Musculoskeletal: No clubbing, No swelling, No tenderness Integumentary: No rashes, No breakdown, No significant lesion Neurological: Normal speech, Normal tone, Normal affect Lymphatics: No axilla or inguinal lymphadenopathy - Studies Laboratory Data (last 24 hrs) 10/30/22 14:28: APTT 98.0 H 10/30/22 12:50: PT 12.2, INR 1.11 10/30/22 12:50: WBC 6.90, Hgb 11.1 L, Hct 34.7 L, Plt Count 357 10/30/22 12:50: Sodium 139, Potassium 3.9, BUN 9, Creatinine 0.84, Glucose 139 H, Magnesium 2.3, Total Bilirubin 0.4, AST 12 L, ALT 26, Alkaline Phosphatase 118 H, Lipase 19 Microbiology Data (last 24 hrs): 10/30/22 13:10 Nasopharnyx Influenza Type A Antigen Screen - Final 10/30/22 13:10 Nasopharnyx Influenza Type B Antigen Screen - Final Assessment and Plan - Plan --Chest pain. Likely atypical. Cardiology consulted. Echocardiogram to assess cardiac structures and function. Serial troponins negative so far. Telemetry to monitor for any significant arrhythmia. We await further recommendation from starch treating assistant. --Lymphoma. Patient on chemotherapy every Friday per patient's report. Patient follows up with an outpatient oncologist. Continue supportive care. -- Acute pain. We will manage pain on current pain medication regimen. --History of CVA. Continue aspirin. --Anemia of chronic disease. H&H stable. We will continue to monitor hemoglobin and transfuse if less than 7.0. --Right subclavian and axillary veins DVT. Patient given heparin drip infusion x1 dose in ER. Will transition patient to Lovenox subQ -- History of hydrocephalus. Status post CHILDCARE TEACHER shunt. Continue supportive care. -- CKD 2. Stable. We will continue to monitor renal functions. --DVT prophylaxis with Lovenox subQ. Discharge Plan: Home Plan to discharge in: Greater than 2 days - Advance Directives Does patient have a Living Will: No Does patient have a Durable POA for Healthcare: No - Code Status/Comfort Care Code Status Assessed: Yes Physician Review: Patient Assessed, Agree with Above Assessment and Plan Critical Care: No
[2022-10-30 18:53] VITALS: BMI 30.7
[2022-10-30] MEDS: HYDROMORPHONE HCL 1 MG/ML INJ IV PRN (18:55)
[2022-10-30 20:42] LABS: Magnesium 1.9 mg/dL (1.6-2.4); Phosphorus 3.4 mg/dL (2.5-4.9); Thyroid Stimulating Hormone 0.673 uIU/mL (0.358-3.740)
[2022-10-30] MEDS: ENOXAPARIN 80 MG/0.8 ML SQ SCH (20:56)
[2022-10-31 05:00] LABS: Absolute Lymphocytes (CBC) 0.9 K/uL (0.7-4.9); Hematocrit 28.5 % (36.0-45.0); Lymphocytes % 15.8 % (15.3-44.8); MCV 81.8 fL (80-100); MPV 8.1 fL (7.6-11.3); RBC Red Blood Cell Count 3.48 M/uL (3.86-4.86)
[2022-10-31] MEDS: ACETAMINOPHEN 325 MG TABLET PO PRN ×2 (05:01→12:09)
[2022-10-31 05:12] LABS: Potassium 3.3 mEq/L (3.5-5.1)
[2022-10-31] MEDS ORDERED: POTASSIUM 25 MEQ EFFERV TAB PO ONE (07:00)
[2022-10-31] MEDS: HYDROMORPHONE HCL 1 MG/ML INJ IV PRN ×4 (07:39→22:15)
[2022-10-31] MEDS: ASPIRIN 81 MG CHEWABLE TABLET PO SCH (07:39)
[2022-10-31] MEDS: ONDANSETRON 4 MG/2 ML VIAL IV PRN ×3 (07:39→22:15)
[2022-10-31] MEDS: ENOXAPARIN 80 MG/0.8 ML SQ SCH ×2 (07:39→20:30)
--- NOTE | 2022-10-31 09:46 | CON ---
Date of Consultation: 10/31/2022 Reason For Consultation: Supraventricular tachycardia and atypical chest pain with near syncope. History Of Present Illness: Ms. Carpio is a 52-year-old woman with recent diagnosis of non-Hodgkin lymphoma. She is on chemotherapy by Dr. Gonzalez. Recent PET scan and CT scan showed improvement in he r lymphoma. She has a history of hydrocephalus and had a STREET SPRINKLER shunt in the past. She had a CVA in Jul. She has had a central line placed in the right subclavian. She came in with SVT, near-s yncope, shortness of breath, chest pain, and weak, was found to have an acute thrombus on the right a xillary vein and subclavian vein. She is on Lovenox for that. She is getting 80 twice a day. She i s also getting aspirin. Denied any nausea, vomiting, diaphoresis. She denied any fever or chills. Past Medical History: As stated above. Allergies: SHE IS ALLERGIC TO MORPHINE. Medications: Present medications include Lovenox and aspirin. She is on chemotherapy as well by Dr. Gonzalez. Review of Systems: Negative. Social History: Negative. Family History: Negative. Physical Examination: General: She appeared to be stable. Vital Signs: She is in sinus rhythm, afebrile. HEENT: Negative. Neck: Supple with no bruit. Chest: Clear. Cardiac: Revealed a regular rhythm and rate. No murmurs, gallops, or rubs. Abdomen: Benign. Extremities: Revealed no clubbing, cyanosis, or edema. Diagnostic Data: She had a normal echo in 2021 and in May. Chest x-ray, CTA were negative. EK G showed LVH. Potassium 3.3, pO2 of 69, pCO2 of 29, pH of 7.51. Impression And Plan: All her symptoms including SVT, near-syncope, shortness of breath, chest pain a nd weakness are secondary to her right axillary and subclavian acute thrombus. She is now on Lovenox 80 mg twice a day. 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 W sarahy will make arrangements for her to have an outpatient Lexiscan sometime down the road. Echocardiogr am is pending to rule out other issues cardiac marie. As far as her STREET SPRINKLER shunt, hydrocephalus, and hist ory of cerebrovascular accident, these are stable. She has non-Hodgkin lymphoma, on chemotherapy per Dr. Gonzalez with good resolution according to her last PET scan. I will continue to follow her. RUBINA/RED Voice ID: [id number] Report ID: [id number]
--- NOTE | 2022-10-31 11:02 | EKG ---
Test Date: 2022-10-30 Test Time: 13:12:13 Affirmative Action Officer: ALP MEASUREMENT RESULTS: Intervals: Rate: 170 NE: QRSD: 62 QT: 286 QTc: 480 [place]: P: NE: QRS: 5 T: 77 INTERPRETIVE STATEMENTS: Undetermined rhythm Nonspecific T wave abnormality Abnormal ECG Compared to ECG 08/16/2022 11:40:23 Sinus rhythm no longer present Left ventricular hypertrophy no longer present T-wave abnormality still present Electronically Signed On 10-31-22 11:01:36 CDT by Jimbo Monterroso
--- NOTE | 2022-10-31 18:24 | P.PN ---
Subjective Date of Service: 10/31/22 Chief Complaint: Chest pain, generalized pain, Patient reports pain all over. Fainting episode reported prior to presentation. No recorded fever. In sinus rhythm. Physical Examination - Vital Signs Temperature: 97.0 F Blood Pressure: 114/61 Pulse: 84 Respirations: 14 Pulse Ox (%): 95 - Studies Microbiology Data (last 24 hrs): 10/30/22 13:10 Nasopharnyx Influenza Type A Antigen Screen - Final 10/30/22 13:10 Nasopharnyx Influenza Type B Antigen Screen - Final Assessment And Plan - Plan Physical Exam General: Alert, Oriented x3, Cooperative, Mild distress HEENT: Atraumatic, PERRLA, Mucous membr. moist/pink, EOMI, Sclerae nonicteric Neck: Supple, 2+ carotid pulse no bruit, No LAD, Without JVD or thyroid abnormality Respiratory: Normal air movement Cardiovascular: No edema, Regular rate/rhythm, Normal S1 S2 Gastrointestinal: Normal bowel sounds, Soft and benign, No tenderness Musculoskeletal: No clubbing, No swelling, No tenderness, right upper extremity PICC line in place. Integumentary: No rashes, No breakdown, No significant lesion Neurological: Normal speech, Normal tone, Normal affect Lymphatics: No axilla or inguinal lymphadenopathy Plan Chest pain. Atypical. Cardiology consulted. Echocardiogram ordered to assess cardiac structures and function. Serial troponins negative so far. Lymphoma. Patient on weekly chemotherapy Patient follows up with oncologist Dr. Gonzalez. Continue supportive care. Pain management as needed. History of CVA. Continue aspirin Right subclavian and axillary veins DVT. PICC line in place. Full dose Lovenox. Discussed case with Dr. Gonzalez. Dr. Gonzalez recommended to rule out catheter related infection, keep PICC line in place and treat with anticoagulation if no infection, remove PICC line if there is evidence of infection or surgical consult for new external jugular line. Patient have had difficult IV access for chemotherapy in the past. 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 Continue supportive care. DVT prophylaxis with Lovenox subQ.
[2022-10-31] MEDS ORDERED: HYDROCODONE/APAP 10/325 TAB PO ONE (20:16)
[2022-11-01 05:31] LABS: Absolute Lymphocytes (CBC) 1.1 K/uL (0.7-4.9); Hematocrit 29.2 % (36.0-45.0); Lymphocytes % 25.1 % (15.3-44.8); MCV 82.3 fL (80-100); MPV 8.7 fL (7.6-11.3); RBC Red Blood Cell Count 3.54 M/uL (3.86-4.86)
[2022-11-01] MEDS: ONDANSETRON 4 MG/2 ML VIAL IV PRN (05:31)
[2022-11-01] MEDS: HYDROMORPHONE HCL 1 MG/ML INJ IV PRN ×3 (05:31→20:08)
[2022-11-01 05:33] LABS: Potassium 3.6 mEq/L (3.5-5.1)
--- NOTE | 2022-11-01 06:59 | ECHO ---
HEIGHT: 5 ft 4 in WEIGHT: 178 lb 9.6 oz DATE OF STUDY: 10/31/[address]: Roslyn Snow 2-DIMENSIONAL: YES M.MODE: YES DOPPLER: YES COLOR FLOW: YES TDS: NO PORTABLE: YES DEFINITY: NO BUBBLE STUDY: NO DIAGNOSIS: CHEST PAIN CARDIAC HISTORY: CATHERIZATION: SURGERY: PROSTHETIC VALVE: PACEMAKER: MEASUREMENTS (cm) DIASTOLIC (NORMALS) SYSTOLIC (NORMALS) IVSd 0.9 (0.6-1.2) LA Diam 2.8 (1.9-4.0) LVEF 55% LVIDd 4.4 (3.5-5.7) LVIDs 3.2 (2.0-3.5) %FS 28% LVPWd 1.1 (0.6-1.2) Ao Diam 2.5 (2.0-3.7) 2 DIMENSIONAL ASSESSMENT: RIGHT ATRIUM: NORMAL LEFT ATRIUM: NORMAL RIGHT VENTRICLE: NORMAL LEFT VENTRICLE: NORMAL TRICUSPID VALVE: MILD TRICUSPID REGURGITATION MITRAL VALVE: TRACE MITRAL REGURGITATION PULMONIC VALVE: NORMAL AORTIC VALVE: NORMAL PERICARDIAL EFFUSION: NONE AORTIC ROOT: NORMAL LEFT VENTRICULAR WALL MOTION: NORMAL. DOPPLER/COLOR FLOW: SEE BELOW. COMMENTS: NORMAL LEFT VENTRICULAR EJECTION FRACTION 55-60% NORMAL WALL MOTION MILD TRICUSPID REGURGITATION TRACE MITRAL REGURGITATION TECHNOLOGIST: MISBAH ALVAREZ
[2022-11-01] MEDS: ENOXAPARIN 80 MG/0.8 ML SQ SCH ×2 (08:47→20:25)
[2022-11-01] MEDS: ASPIRIN 81 MG CHEWABLE TABLET PO SCH (08:47)
[2022-11-01] MEDS ORDERED: POTASSIUM 25 MEQ EFFERV TAB PO ONE (09:00)
[2022-11-01] MEDS: CEFEPIME 2 GM in NA CHLORIDE 0.9% 100 ML IV SCH ×2 (10:42→20:24)
--- NOTE | 2022-11-01 12:49 | PN ---
Date of Progress Note: 11/01/2022 Ms. Carpio is being followed on 11/01/2022 for recent admission for SVT. She has a history of lymp montse under chemotherapy treatment by Dr. Gonzalez. 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 She came in with SVT. Came in with right axillary thrombus. She is getting anticoag ulated for that. She can certainly have that done as an outpatient with either Miguel or Олег. I will probably discuss that with Dr. Gonzalez before we make a decision on which anticoagulation to use. Echocardiogram that was done yesterday was perfectly normal. I will sign off her case for now. RUBINA/RED Voice ID: [id number] Report ID: [id number]
--- NOTE | 2022-11-01 14:20 | RAD REPORT ---
EXAM DESCRIPTION: MRI - Brain Wo Cont - 11/01/2022 1:56 pm CLINICAL HISTORY: right facial weakness COMPARISON: Head Brain Wo Cont dated 08/16/2022 TECHNIQUE: Sagittal T1-weighted images were obtained along with PD/heavily T2-weighted and T2-FLAIR images. Axial DWI and ADC mapping sequences were also obtained along with coronal heavily T2-weighted images were obtained. FINDINGS: Artifact from the patient's right-sided ventriculostomy obscures portions of the right par ietal lobe, particularly the diffusion weighted images. The ventriculostomy tip terminates in the lef t lateral ventricle. No hydrocephalus. Sequela of prior right frontal approach ventriculostomy. There is abnormal T2 signal anteriorly in the region of the genu and rostrum of the corpus callosum, both of which are atrophic. Within the visualized portions of the brain, no restricted diffusion is identi fied. No midline shift. No mass effect. Mastoid air cells and paranasal sinuses are clear. IMPRESSION: 1. No definite acute intracranial abnormality. Abnormal T2/FLAIR signal in the genu and rostrum of the corpus callosum which crosses midline. This area appears atrophic on sagittal and is p robably secondary to a remote insult. A follow-up MRI brain with contrast or comparison with outside imaging could be considered. 2. No acute infarct though portions of the right parietal lobe are obscured by artifact. 3. Right parietal ventriculostomy. No hydrocephalus.
--- NOTE | 2022-11-01 17:21 | P.PN ---
Subjective Date of Service: 11/01/22 Chief Complaint: Chest pain, generalized pain, Patient reports shoulder pain and attributes it to the uncomfortable bed. No recorded fever. She has good oral intake. She denies any limb weakness. Physical Examination - Vital Signs Temperature: 97.9 F Blood Pressure: 111/65 Pulse: 99 Respirations: 16 Pulse Ox (%): 99 Assessment And Plan - Plan Physical Exam General: Alert, Oriented x3, Cooperative, Mild distress HEENT: Atraumatic, PERRLA, Mucous membr. moist/pink, EOMI, Sclerae nonicteric Neck: Supple, 2+ carotid pulse no bruit, No LAD, Without JVD or thyroid abnormality Respiratory: Normal air movement Cardiovascular: No edema, Regular rate/rhythm, Normal S1 S2 Gastrointestinal: Normal bowel sounds, Soft and benign, No tenderness Musculoskeletal: No clubbing, No swelling, No tenderness, right upper extremity PICC line in place. Integumentary: No rashes, No breakdown, No significant lesion Neurological: Normal speech, Normal tone, Normal affect Lymphatics: No axilla or inguinal lymphadenopathy Plan Chest pain. Atypical. Cardiology consulted. Echocardiogram: Unremarkable Serial troponins negative. No ACS. Lymphoma. Patient on weekly chemotherapy Patient follows up with oncologist Dr. Gonzalez. Continue supportive care. Pain management as needed. History of CVA. Continue aspirin Right subclavian and axillary veins DVT. PICC line in place. Continue full dose Lovenox. Discussed case with Dr. Gonzalez. Dr. Gonzalez recommended to rule out catheter related infection, keep PICC line in place and treat with anticoagulation if no infection, remove PICC line if there is evidence of infection or surgical consult for new external jugular line. Patient have had difficult IV access for chemotherapy in the past. Blood cultures-PICC line and peripheral shows no growth to date. IV cefepime Follow cultures. 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 Continue supportive care. DVT prophylaxis with Lovenox subQ.
[2022-11-01] MEDS ORDERED: ATORVASTATIN 80 MG TAB PO SCH (21:00)
[2022-11-01 21:06] VITALS: O2SAT 92
[2022-11-02] MEDS ORDERED: NA CHLORIDE 0.9% 250 ML IV SCH ×2 (03:00)
[2022-11-02] MEDS: HYDROMORPHONE HCL 1 MG/ML INJ IV PRN ×4 (04:02→16:18)
[2022-11-02] MEDS: DOCUSATE NA 100 MG CAP PO PRN ×2 (04:10→08:36)
[2022-11-02 04:40] LABS: Absolute Lymphocytes (CBC) 1.3 K/uL (0.7-4.9); Hematocrit 28.3 % (36.0-45.0); Lymphocytes % 36.4 % (15.3-44.8); MCV 82.7 fL (80-100); MPV 8.6 fL (7.6-11.3); RBC Red Blood Cell Count 3.43 M/uL (3.86-4.86)
[2022-11-02 04:52] LABS: Potassium 3.7 mEq/L (3.5-5.1)
[2022-11-02 05:19] LABS: Blood Morphology Comment NOT SEEN (NOT SEEN); Platelet Estimate ADEQ
--- NOTE | 2022-11-02 07:14 | EKG ---
Test Date: 2022-10-30 Test Time: 13:01:20 Library Science Professor: RODNEY MEASUREMENT RESULTS: Intervals: Rate: 168 ND: 84 QRSD: 54 QT: 280 QTc: 468 [place]: P: 214 ND: 84 QRS: 2 T: 191 INTERPRETIVE STATEMENTS: Undetermined rhythm Cannot rule out Anterior infarct, age undetermined ST & T wave abnormality, consider inferolateral ischemia Abnormal ECG Compared to ECG 10/30/2022 12:46:43 Possible ischemia now present Myocardial infarct finding still present ST (T wave) deviation still present Electronically Signed On 11-02-22 07:10:04 CDT by Jimbo Monterroso
--- NOTE | 2022-11-02 07:14 | EKG ---
Test Date: 2022-10-30 Test Time: 12:46:43 Airport Ramp Attendant: RODNEY MEASUREMENT RESULTS: Intervals: Rate: 166 [place]: QRSD: 54 QT: 288 QTc: 478 [place]: P: [place]: QRS: 6 T: 127 INTERPRETIVE STATEMENTS: Undetermined rhythm Low voltage QRS Cannot rule out Anterior infarct, age undetermined Marked ST abnormality, possible lateral subendocardial injury Abnormal ECG Compared to ECG 08/16/2022 11:40:23 Low QRS voltage now present Myocardial infarct finding now present ST (T wave) deviation now present Sinus rhythm no longer present Left ventricular hypertrophy no longer present T-wave abnormality no longer present Electronically Signed On 11-02-22 07:10:05 CDT by Jimbo Monterroso
[2022-11-02] MEDS ORDERED: POTASSIUM CL SA 10 MEQ TAB PO ONE (08:00)
[2022-11-02] MEDS: ASPIRIN 81 MG CHEWABLE TABLET PO SCH (08:34)
[2022-11-02] MEDS: CEFEPIME 2 GM in NA CHLORIDE 0.9% 100 ML IV SCH (08:35)
[2022-11-02] MEDS: ENOXAPARIN 80 MG/0.8 ML SQ SCH (08:35)
[2022-11-02] MEDS ORDERED: GABAPENTIN 300 MG CAP PO SCH (09:00)
--- NOTE | 2022-11-02 15:49 | P.DS ---
Admission Date: 10/30/22 Discharge Date: 11/02/22 Disposition: DC HOME/HOME HEALTH CARE Discharge Condition: FAIR Reason for Admission: Chest pain, generalized pain, Brief History of Present Illness: Patient is a 52-year-old female with a past medical history significant for lymphoma currently on chemotherapy, CVA, hydrocephalus who presents with complaint of chest pain that has been ongoing intermittently for the past 5 months but became worse in the last 2 days. Patient indicated that chest pain is located in the right chest wall. Patient rated pain as 10/10 and described pain as aching in quality. Patient also reported generalized body\joint pains. Patient reported associated signs and symptoms of fatigue, weakness and generalized malaise. Patient denies any other signs or symptoms. Symptoms are aggravated or relieved by nothing. Patient was brought to the hospital for medical evaluation. Chest x-ray showed no acute disease, initial troponin negative. Patient was hospitalized for further management. Hospital Course: Chest pain. Cardiology saw and evaluated patient. No further intervention recommended. Chest pain considered noncardiac Echocardiogram: Unremarkable Serial troponins negative. No ACS. Lymphoma. Patient is on weekly chemotherapy Patient follows up with oncologist Dr. Gonzalez. History of CVA. Noted right facial droop. MRI of the brain done did not show any acute CVA. Continued aspirin during the hospital stay. Right subclavian and axillary veins DVT. PICC line in place. Patient treated with full dose Lovenox. Discussed case with Dr. Gonzalez. Dr. Gonzalez recommended to rule out catheter related infection, keep PICC line in place and treat with anticoagulation if no infection, remove PICC line if there is evidence of infection and surgical consult for new external jugular access. Patient have had difficult IV access for chemotherapy in the past. Blood cultures-PICC line and peripheral shows no growth to date. She was treated briefly with IV cefepime. 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 Stable. Sepsis ruled out. Patient is at baseline. Choice of anticoagulation discussed with Dr. Gonzalez and she recommended DOAC. Patient discharged with Eliquis DVT dosing. Vital Signs/Physical Exam: Temp Pulse Resp BP Pulse Ox 97.2 F 94 H 16 100/59 L 97 11/02/22 11:59 11/02/22 11:59 11/02/22 11:59 11/02/22 11:59 11/02/22 11:59 General: In no apparent distress, Oriented x3 HEENT: Mucous membr. moist/pink Neck: JVD not distended Respiratory: Clear to auscultation bilaterally, Normal air movement Cardiovascular: Regular rate/rhythm, Normal S1 S2 Laboratory Data at Discharge: WBC 3.50 thou/uL (4.3-10.9) L 11/02/22 04:16 Hgb 9.4 g/dL (12.0-15.0) L 11/02/22 04:16 Hct 28.3 % (36.0-45.0) L 11/02/22 04:16 Plt Count 327 thou/uL (152-406) 11/02/22 04:16 PT 12.2 SECONDS (9.5-12.5) 10/30/22 12:50 INR 1.11 10/30/22 12:50 APTT 98.0 SECONDS (24.3-36.9) H 10/30/22 14:28 Sodium 137 mEq/L (136-145) 11/02/22 04:16 Potassium 3.7 mEq/L (3.5-5.1) 11/02/22 04:16 BUN 8 mg/dL (7-18) 11/02/22 04:16 Creatinine 0.53 mg/dL (0.55-1.02) L 11/02/22 04:16 Glucose 109 mg/dL (74-106) H 11/02/22 04:16 Phosphorus 3.4 mg/dL (2.5-4.9) 10/30/22 19:53 Magnesium 1.9 mg/dL (1.6-2.4) 10/30/22 19:53 Total Bilirubin 0.4 mg/dL (0.2-1.0) 10/30/22 12:50 AST 12 U/L (15-37) L 10/30/22 12:50 ALT 26 U/L (13-56) 10/30/22 12:50 Alkaline Phosphatase 118 U/L (45-117) H 10/30/22 12:50 Lipase 19 U/L (13-75) 10/30/22 12:50 Home Medications: Atorvastatin Calcium [Lipitor] 80 mg PO DAILY 10/31/22 Gabapentin 300 mg PO DAILY 10/31/22 Zolpidem Tartrate [Ambien] 5 mg PO BEDTIME 10/31/22 dexAMETHasone [Dexamethasone] 4 mg PO PRN PRN 10/31/22 Apixaban [Eliquis] 5 mg PO BID #74 tab 11/02/22 Aspirin Chewable [Aspirin Chewable*] 81 mg PO DAILY #30 tab.chew 11/02/22 Docusate [Colace Cap*] 100 mg PO DAILY PRN #30 cap 11/02/22 New Medications: Aspirin Chewable [Aspirin Chewable*] 81 mg PO DAILY #30 tab.chew Docusate [Colace Cap*] 100 mg PO DAILY PRN #30 cap PRN Reason: Constipation Apixaban [Eliquis] 5 mg PO BID #74 tab Diet: Regular Activity: Ad corie Followup: NONE,NONE [Primary Care Provider] - Mary Farfan MD [ACTIVE - CAN ADMIT] - 1-2 Weeks Time spent managing pt's care (in minutes): 40
[2022-11-02 16:34] VITALS: BP 110/55; TEMP 98.1
== END 2022-11-02 17:00 | disposition home health service (06) | DRG 300 ==
LOC: ER 12:33 → ERHOLD 15:25 → 3RD-ICU 16:28 → 4TH 10-31 14:33
PROVIDERS: ADMIT Internal Medicine; ATTEND Internal Medicine
DX: I82.A11 Acute embolism and thrombosis of right axillary vein (principal); I47.1 Supraventricular tachycardia; I82.B11 Acute embolism and thrombosis of right subclavian vein; N18.2 Chronic kidney disease, stage 2 (mild); D63.1 Anemia in chronic kidney disease; Z88.5 Allergy status to narcotic agent; Z79.82 Long term (current) use of aspirin; Z86.73 Personal history of transient ischemic attack (TIA), and cerebral infarction without residual deficits; Z79.01 Long term (current) use of anticoagulants; Z92.21 Personal history of antineoplastic chemotherapy; Z85.72 Personal history of non-Hodgkin lymphomas; Z90.710 Acquired absence of both cervix and uterus; Z20.822 Contact with and (suspected) exposure to COVID-19
CPT/HCPCS: 36415; 51702; 70551; 71045; 71275; 74177; 80048; 80076; 81003; 82805; 83690; 83735; 83880; 84100; 84439; 84443; 84484; 85025; 85610; 85730; 87040; 87804; 87811; 93005; 93306; 93970; 99215; 99291; 99292; J0692; J1170; J1644; J2405; J2997; J3010; J7030; J7050; Q9967

== ENCOUNTER 2022-11-20 17:25 | Inpatient (IN) | payer BC ==
[2022-11-20 18:13] LABS: SARS-CoV-2 Antigen Rapid Res Negative (Negative)
--- OUTSIDE RECORDS SUMMARY | 2022-11-20 18:32 | XMS REPORT | Continuity of Care Document ---
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 on Fri08/16/22 at 2200, Until Discontinu ed, Routine acetaminoph 0 Yes 650mg 650 mg, Un maulik en 17 Oral, ity of (TYLENOL) 23:56: Q6HPRN, Erika tablet 650 16 Starting Medic al mg on Fri Branch 08/16/22 at 1756, Until Discontinu ed, Routine, Pain (scale 1-3) phenylephri 0 2022- No Take 1 Uni vers ne-DM-guaif 08-16 TAB-CAP/M2 i ty of enesin 18:12: 00:00 by mouth [place] (DECONEX 08 :00 every 4 Medical DMX) (four) Branch 10-17.5-385 hours as mg Tab needed (cough). phenylephri 2022-0 3- No Take 1 Uni vers ne-DM-guaif 08-16 TAB-CAP/M2 i ty of enesin 18:12: 00:00 by mouth [place] (DECONEX 08 :00 every 4 Medical DMX) (four) Branch 10-17.5-385 hours as mg Tab needed (cough). sucralfate 2022-0 3- No 1g Take 1 g Un maulik 1 gram 08-16 by mouth ity of tablet 18:12: 00:00 before [place] 05 :00 meals and Medical at [place] bedtime. sucralfate 2022-0 2022- No 1g Take 1 g Un maulik 1 gram 08-16 by mouth ity of tablet 18:12: 00:00 before [place] 05 :00 meals and Medical at [place] bedtime. pantoprazol 2022-0 3- No 40mg Take 40 mg Univers e 40 mg EC 08-16 by mouth ity of tablet 18:11: 00:00 in the [place] 52 :00 morning. Medical Branch pantoprazol 2022-0 3- No 40mg Take 40 mg Univers e 40 mg EC 08-16 by mouth ity of tablet 18:11: 00:00 in the [place] 52 :00 morning. Medical Branch omeprazole 3-0 2023- No 20mg Take 20 mg Univers 20 mg 08-16 by mouth ity of capsule 18:11: 00:00 in the [place] 40 :00 morning. Medical Branch omeprazole 3-0 2023- No 20mg Take 20 mg Univers 20 mg 08-16 by mouth ity of capsule 18:11: 00:00 in the [place] 40 :00 morning. Medical Branch montelukast 3-0 2023- No 10mg Take 10 mg Univers 10 mg 08-16 by mouth ity of tablet 18:11: 00:00 at [place] [address] :00 bedtime. Medical Branch montelukast 3-0 2023- No 10mg Take 10 mg Univers 10 mg 08-16 by mouth ity of tablet 18:11: 00:00 at [place] 37 :00 bedtime. Medical Branch budesonide 2022- No .25mg Inhale Uni vers 0.25 mg/2 2-17 02-17 0.25 mg in ity of mL 18:10: 00:00 the [place] nebulizer 40 :00 morning Medical solution and 0.25 Branch mg in the evening. budesonide 2022- No .25mg Inhale Uni vers 0.25 mg/2 2-17 02-17 0.25 mg in ity of mL 18:10: 00:00 the [place] nebulizer 40 :00 morning Medical solution and 0.25 Branch mg in the evening. allopurinoL 2022- No 300mg Take 300 Univers 300 mg 2-17 02-17 mg by ity of tablet 18:10: 00:00 mouth in [place] 19 :00 the Medical morning. Branch allopurinoL 2022- No 300mg Take 300 Univers 300 mg 2-17 02-17 mg by ity of tablet 18:10: 00:00 mouth in [place] 19 :00 the Medical morning. Branch acetic acid 2022- No 5[drp] Place 5 Univers 2 % otic 2-17 02-17 Drops in ity of solution 18:10: 00:00 both ears [place] as 07 :00 in the Medical morning Branch and 5 Drops at noon and 5 Drops in the evening. acetic acid 2022- No 5[drp] Place 5 Univers 2 % otic 2-17 02-17 Drops in ity of solution 18:10: 00:00 both ears [place] as 07 :00 in the Medical morning Branch and 5 Drops at noon and 5 Drops in the evening. dexAMETHaso 3-0 Yes TAKE 2 Univ ers ne 4 mg 2-13 TABLETS BY ity of tablet 00:00: MOUTH [place] 00 TWICE Medical DAILY FOR Branch 2 [...] EACH CHEMO TREATMENT FOR 3 DAYS dexAMETHaso 2022-0 Yes TAKE 2 Univ ers ne 4 mg 2-13 TABLETS BY ity of tablet 00:00: MOUTH [place] 00 TWICE Medical DAILY FOR Branch 2 DAYS THEN 1 TABLET TWICE DAILY FOR 1 DAY START AFTER EACH CHEMO TREATMENT FOR 3 DAYS dexAMETHaso 2022-0 Yes TAKE 2 Univ ers ne 4 mg 2-13 TABLETS BY ity of tablet 00:00: MOUTH [place] 00 TWICE Medical DAILY FOR Branch 2 DAYS THEN 1 TABLET TWICE DAILY FOR 1 DAY START AFTER EACH CHEMO TREATMENT FOR 3 DAYS dexAMETHaso 2022-0 Yes TAKE 2 Univ ers ne 4 mg 2-13 TABLETS BY ity of tablet 00:00: MOUTH [place] 00 TWICE Medical DAILY FOR Branch 2 DAYS THEN 1 TABLET TWICE DAILY FOR 1 DAY START AFTER EACH CHEMO TREATMENT FOR 3 DAYS dexAMETHaso 2022-0 Yes TAKE 2 Univ ers ne 4 mg 2-13 TABLETS BY ity of tablet 00:00: MOUTH [place] 00 TWICE Medical DAILY FOR Branch 2 DAYS THEN 1 TABLET TWICE DAILY FOR 1 DAY START AFTER EACH CHEMO TREATMENT FOR 3 DAYS dexAMETHaso 2022-0 Yes TAKE 2 Univ ers ne 4 mg 2-13 TABLETS BY ity of tablet 00:00: MOUTH [place] 00 TWICE Medical DAILY FOR Branch 2 DAYS THEN 1 TABLET TWICE DAILY FOR 1 DAY START AFTER EACH CHEMO TREATMENT FOR 3 DAYS dexAMETHaso 2022-0 Yes TAKE 2 Univ ers ne 4 mg 2-13 TABLETS BY ity of tablet 00:00: MOUTH [place] 00 TWICE Medical DAILY FOR Branch 2 DAYS THEN 1 TABLET TWICE DAILY FOR 1 DAY START AFTER EACH CHEMO TREATMENT FOR 3 DAYS dexAMETHaso 2022-0 Yes TAKE 2 Univ ers ne 4 mg 2-13 TABLETS BY ity of tablet 00:00: MOUTH [place] 00 TWICE Medical DAILY FOR Branch 2 DAYS THEN 1 TABLET TWICE DAILY FOR 1 DAY START AFTER EACH CHEMO TREATMENT FOR 3 DAYS dexAMETHaso 2022-0 Yes TAKE 2 Univ ers ne 4 mg 2-13 TABLETS BY ity of tablet 00:00: MOUTH [place] 00 TWICE Medical DAILY FOR Branch 2 DAYS THEN 1 TABLET TWICE DAILY FOR 1 DAY START AFTER EACH CHEMO TREATMENT FOR 3 DAYS dexAMETHaso 2022-0 Yes TAKE 2 Univ ers ne 4 mg 2-13 TABLETS BY ity of tablet 00:00: MOUTH [place] 00 TWICE Medical DAILY FOR Branch 2 DAYS THEN 1 TABLET TWICE DAILY FOR 1 DAY START AFTER EACH CHEMO TREATMENT FOR 3 DAYS dexAMETHaso 2022-0 Yes TAKE 2 Univ ers ne 4 mg 2-13 TABLETS BY ity of tablet 00:00: MOUTH [place] 00 TWICE Medical DAILY FOR Branch 2 DAYS THEN 1 TABLET TWICE DAILY FOR 1 DAY START AFTER EACH CHEMO TREATMENT FOR 3 DAYS dexAMETHaso 2022-0 Yes TAKE 2 Univ ers ne 4 mg 2-13 TABLETS BY ity of tablet 00:00: MOUTH [place] 00 TWICE Medical DAILY FOR Branch 2 DAYS THEN 1 TABLET TWICE DAILY FOR 1 DAY START AFTER EACH CHEMO TREATMENT FOR 3 DAYS dexAMETHaso 2022-0 Yes TAKE 2 Univ ers ne 4 mg 2-13 TABLETS BY ity of tablet 00:00: MOUTH [place] 00 TWICE Medical DAILY FOR Branch 2 DAYS THEN 1 TABLET TWICE DAILY FOR 1 DAY START AFTER EACH CHEMO TREATMENT FOR 3 DAYS ondansetron 2022-2022- No DISSOLVE 1 Univers 4 mg 2-13 -21 TABLET IN ity of disintegrat 00:00: 00:00 MOUTH [place] tablet 00 :00 EVERY 4 TO Med ical 6 HOURS Branch NEEDED ondansetron 2022-2022- No DISSOLVE 1 Univers 4 mg 2-13 -21 TABLET IN ity of disintegrat 00:00: 00:00 MOUTH [place] tablet 00 :00 EVERY 4 TO Med ical 6 HOURS Branch NEEDED escitalopra 2022-2022- No 10mg Take 10 mg Univers m oxalate 08-06 by mouth ity o f 10 mg 00:00: 00:00 in the [place] tablet 00 :00 morning. Medical Branch escitalopra 2022- No 10mg Take 10 mg Univers m oxalate 08-06 by mouth ity o f 10 mg 00:00: 00:00 in the [place] tablet 00 :00 morning. Medical Branch SERTraline Yes TAKE 1/2 Uni vers 50 mg 1-18 (ONE-HALF) ity of tablet 00:00: TABLET BY [place] 00 MOUTH ONCE Medical DAILY FOR Branch [...] (ONE-HALF) ity of tablet 00:00: TABLET BY [place] 00 MOUTH ONCE Medical DAILY FOR Branch 2 WEEKS THEN INCREASE TO 1 TABLET ONCE DAILY SERTraline 2023-0 Yes TAKE 1/2 Uni vers 50 mg 1-18 (ONE-HALF) ity of tablet 00:00: TABLET BY [place] 00 MOUTH ONCE Medical DAILY FOR Branch 2 WEEKS THEN INCREASE TO 1 TABLET ONCE DAILY SERTraline 2023-0 Yes TAKE 1/2 Uni vers 50 mg 1-18 (ONE-HALF) ity of tablet 00:00: TABLET BY [place] 00 MOUTH ONCE Medical DAILY FOR Branch 2 WEEKS THEN INCREASE TO 1 TABLET ONCE DAILY SERTraline 2023-0 Yes TAKE 1/2 Uni vers 50 mg 1-18 (ONE-HALF) ity of tablet 00:00: TABLET BY [place] 00 MOUTH ONCE Medical DAILY FOR Branch [...] (ONE-HALF) ity of tablet 00:00: TABLET BY [place] 00 MOUTH ONCE Medical DAILY FOR Branch 2 WEEKS THEN INCREASE TO 1 TABLET ONCE DAILY SERTraline Yes TAKE 1/2 Uni vers 50 mg 1-18 (ONE-HALF) ity of tablet 00:00: TABLET BY [place] 00 MOUTH ONCE Medical DAILY FOR Branch 2 WEEKS THEN INCREASE TO 1 TABLET ONCE DAILY SERTraline Yes TAKE 1/2 Uni vers 50 mg 1-18 (ONE-HALF) ity of tablet 00:00: TABLET BY [place] 00 MOUTH ONCE Medical DAILY FOR Branch 2 WEEKS THEN INCREASE TO 1 TABLET ONCE DAILY SERTraline Yes TAKE 1/2 Uni vers 50 mg 1-18 (ONE-HALF) ity of tablet 00:00: TABLET BY [place] 00 MOUTH ONCE Medical DAILY FOR Branch 2 WEEKS THEN INCREASE TO 1 TABLET ONCE DAILY iopamidol 2021-06 No [id number] 75mL 75 mL, Univers (ISOVUE 08-05 Intravenou ity o f 370-500 mL) 21:00: 21:00 s, ONCE, 1 [place] injection 00 :00 dose, On Medica l 75 mL [facility] 06/04/22 at 1500, Routine aspirin 2021-06 No 325mg 325 mg, Unive rs tablet 325 08-05 Oral, ity of mg 19:00: 17:57 ONCE, 1 [place] 00 :00 dose, On Medical [facility] Branch 06/04/22 at 1300, NADER ketorolac 2021-06 No 30mg 30 mg, Unive rs (TORADOL) 08-05- Slow IV ity of injection 19:00: 17:58 Push, [place] 30 mg 00 :00 ONCE, 1 Medical dose, On Branch [facility] 06/04/22 at 1300, NADER famotidine 2021-06 Yes 20mg Take 20 mg U nivers 20 mg 2-06 by mouth ity of tablet 16:46: in the [place] morning Medical and 20 mg Branch in the evening. fluticasone 2021-06 Yes Use in Univ ers propionate 2-06 each ity of 50 16:46: nostril [place] mcg/actuati 01 daily. Medica l on nasal Branch spray hydroCHLORO 2021-06 Yes 12.5mg Take 12.5 Univers thiazide 2-06 mg by ity of 12.5 mg 16:46: mouth in [place] capsule 01 the Medical morning. Branch montelukast 2021-06 Yes 10mg Take 10 mg Univers 10 mg 2-06 by mouth ity of tablet 16:46: at [place] [address] bedtime. Medical Branch omeprazole 2021-06 Yes 20mg Take 20 mg U nivers 20 mg 2-06 by mouth ity of capsule 16:46: in the [place] morning. Medical Branch pantoprazol 2021-06 Yes 40mg Take 40 mg Univers e 40 mg EC 2-06 by mouth ity o f tablet 16:46: in the [place] morning. Medical Branch sucralfate 2021-06 Yes 1g Take 1 g Uni vers 1 gram 2-06 by mouth ity of tablet 16:46: before [place] meals and Medical at Branch bedtime. allopurinoL 2021-06 Yes 300mg Take 300 U nivers 300 mg 2-06 mg by ity of tablet 16:46: mouth in [place] the Medical morning. Branch acetic acid 2021-06 [...] for Cough. budesonide 2021-06 Yes .25mg Inhale Univ ers 0.25 mg/2 2-06 0.25 mg in ity of mL 16:46: the [place] nebulizer 01 morning Medical solution and 0.25 Branch mg in the evening. cetirizine 2021-06 Yes 10mg Take 10 mg U nivers 10 mg 2-06 by mouth ity of tablet 16:46: in the [place] morning. Medical Branch phenylephri 2021-06 Yes Take 1 Univ ers ne-DM-guaif 2-06 TAB-CAP/M2 it y of enesin 16:46: by mouth [place] (DECONEX 01 every 4 Medical DMX) (four) Branch 10-17.5-385 hours as mg Tab needed (cough). famotidine 2021-06 Yes 20mg Take 20 mg U nivers 20 mg 2-06 by mouth ity of tablet 16:46: in the [place] morning Medical and 20 mg Branch in the evening. fluticasone 2021-06 Yes Use in [facility] ers propionate 2-06 each ity of 50 16:46: nostril [place] mcg/actuati 01 daily. Medica l on nasal Branch spray hydroCHLORO 2021-06 Yes 12.5mg Take 12.5 Univers thiazide 2-06 mg by ity of 12.5 mg 16:46: mouth in [place] capsule 01 the Medical morning. Branch montelukast 2021-06 Yes 10mg Take 10 mg Univers 10 mg 2-06 by mouth ity of tablet 16:46: at [place] [address] bedtime. Medical Branch omeprazole 2021-06 Yes 20mg Take 20 mg U nivers 20 mg 2-06 by mouth ity of capsule 16:46: in the [place] morning. Medical Branch pantoprazol 2021-06 Yes 40mg Take 40 mg Univers e 40 mg EC 2-06 by mouth ity o f tablet 16:46: in the [place] morning. Medical Branch sucralfate 2021-06 Yes 1g Take 1 g Uni vers 1 gram 2-06 by mouth ity of tablet 16:46: before [place] meals and Medical at Branch bedtime. allopurinoL 2021-06 Yes 300mg Take 300 U nivers 300 mg 2-06 mg by ity of tablet 16:46: mouth in [place] the Medical morning. Branch acetic acid 2021-06 [...] for Cough. budesonide 2021-06 Yes .25mg Inhale [facility] ers 0.25 mg/2 2-06 0.25 mg in ity of mL 16:46: the [place] nebulizer 01 morning Medical solution and 0.25 Branch mg in the evening. cetirizine 2021-06 Yes 10mg Take 10 mg U nivers 10 mg 2-06 by mouth ity of tablet 16:46: in the [place] 01 morning. Medical Branch phenylephri 2021-06 Yes Take 1 Univ ers ne-DM-guaif 2-06 TAB-CAP/M2 it y of enesin 16:46: by mouth [place] (DECONEX 01 every 4 Medical DMX) (four) Branch 10-17.5-385 hours as mg Tab needed (cough). traMADOL 50 2021-06- No 50mg Take 50 mg Univers mg tablet 2 12- by mouth ity o f 11:35: 00:00 every 8 [place] 55 :00 (eight) Medical hours as Branch needed. LISINOPRIL 2021-06 No 1{tbl} Take 1 Un maulik ORAL 2- 12- tablet by ity of 11:35: 00:00 mouth [place] 45 :00 daily. Medical Branch IBUPROFEN/D 2021-06 No 1{tbl} Take 1 U nivers IPHENHYDRAM 2- tablet by it y of INE CIT 11:35: 00:00 mouth as [place] (ADVIL PM 42 :00 needed. Medical ORAL) Branch HYDROCHLORO 2021-06- No Take 1 Uni vers THIAZIDE 2 12-06 TAB-CAP/M2 ity of ORAL 11:35: 00:00 by mouth [place] 36 :00 daily. Medical Branch amlodipine 2021-06- No Take 1 Univ ers besylate 2- 12-06 TAB-CAP/M2 ity of (AMLODIPINE 11:35: 00:00 by mouth [place] ORAL) 33 :00 daily. Medical Branch ondansetron 2021-06 Yes [id number] 1-2 U nivers 4 mg tablet 2-06 tablets ity o f 00:00: every 8 [place] 00 hours as Medical needed for Branch nausea benzonatate 2021-06 Yes [id number] 200mg Take 1 Univers 200 mg 2-06 capsule by ity of capsule 00:00: mouth 3 [place] 00 (three) Medical times Branch daily as needed for Cough. albuterol 2021-06 Yes [id number] 2{puff} Inhale 2 Univers 90 2-06 Puffs ity of mcg/actuati 00:00: every 4 [place] on inhaler 00 (four) Medical hours as Branch needed for Wheezing or Shortness of Breath. ondansetron 2021-06 Yes [id number] 1-2 U nivers 4 mg tablet 2-06 tablets ity o f 00:00: every 8 [place] 00 hours as Medical needed for Branch nausea benzonatate 2021-06 Yes [id number] 200mg Take 1 Univers 200 mg 2-06 capsule by ity of capsule 00:00: mouth 3 [place] 00 (three) Medical times Branch daily as needed for Cough. albuterol 2021-06 Yes [id number] 2{puff} Inhale 2 Univers 90 2-06 Puffs ity of mcg/actuati 00:00: every 4 [place] on inhaler 00 (four) Medical hours as Branch needed for Wheezing or Shortness of Breath. ondansetron 2021-06 Yes [id number] 1-2 U nivers 4 mg tablet 2-06 tablets ity o f 00:00: every 8 [place] 00 hours as Medical needed for Branch nausea ondansetron 2021-06 Yes [id number] 1-2 U nivers 4 mg tablet 2-06 tablets ity o f 00:00: every 8 [place] 00 hours as Medical needed for Branch nausea ondansetron 2021-06 Yes [id number] 1-2 U nivers 4 mg tablet 2-06 tablets ity o f 00:00: every 8 [place] 00 hours as Medical needed for Branch nausea ondansetron 2021- Yes [id number] 1-2 U nivers 4 mg tablet 2-06 tablets ity o f 00:00: every 8 [place] 00 hours as Medical needed for Branch nausea ondansetron 2021- Yes [id number] 1-2 U nivers 4 mg tablet 2-06 tablets ity o f 00:00: every 8 [place] 00 hours as Medical needed for Branch nausea ondansetron 2021- Yes [id number] 1-2 U nivers 4 mg tablet 2-06 tablets ity o f 00:00: every 8 [place] 00 hours as Medical needed for Branch nausea ondansetron 2- Yes [id number] 1-2 U nivers 4 mg tablet 2-06 tablets ity o f 00:00: every 8 [place] 00 hours as Medical needed for Branch nausea ondansetron 2021- Yes [id number] 1-2 U nivers 4 mg tablet 2-06 tablets ity o f 00:00: every 8 [place] 00 hours as Medical needed for Branch nausea ondansetron 2021- Yes [id number] 1-2 U nivers 4 mg tablet 2-06 tablets ity o f 00:00: every 8 [place] 00 hours as Medical needed for Branch nausea ondansetron 2021- Yes [id number] 1-2 U nivers 4 mg tablet 2-06 tablets ity o f 00:00: every 8 [place] 00 hours as Medical needed for Branch nausea ondansetron 2021- Yes [id number] 1-2 U nivers 4 mg tablet 2-06 tablets ity o f 00:00: every 8 [place] 00 hours as Medical needed for Branch nausea ondansetron 2021- Yes [id number] 1-2 U nivers 4 mg tablet 2-06 tablets ity o f 00:00: every 8 [place] 00 hours as Medical needed for Branch nausea ondansetron 2021- Yes [id number] 1-2 U nivers 4 mg tablet 2-06 tablets ity o f 00:00: every 8 [place] 00 hours as Medical needed for Branch nausea ondansetron 2021-06 Yes [id number] 1-2 U nivers 4 mg tablet 2-06 tablets ity o f 00:00: every 8 [place] 00 hours as Medical needed for Branch nausea ondansetron 2021-06 Yes [id number] 1-2 U nivers 4 mg tablet 2-06 tablets ity o f 00:00: every 8 [place] 00 hours as Medical needed for Branch nausea albuterol 2021-06- No [id number] 2{puff} Inhale 2 Univers 90 08-05 02-21 Puffs ity of mcg/actuati 00:00: 00:00 every 4 [place] on inhaler 00 :00 (four) Medical hours as Branch needed for Wheezing or Shortness of Breath. albuterol 2021-06- No [id number] 2{puff} Inhale 2 Univers 90 2-06 02-21 Puffs ity of mcg/actuati 00:00: 00:00 every 4 [place] on inhaler 00 :00 (four) Medical hours as Branch needed for Wheezing or Shortness of Breath. benzonatate 2021-06- No [id number] 200mg Take 1 Univers 200 mg 08-05 capsule by ity of capsule 00:00: 00:00 mouth 3 [place] 00 :00 (three) Medical times Branch daily as needed for Cough. benzonatate 2021-06- No [id number] 200mg Take 1 Univers 200 mg 08-05 capsule by ity of capsule 00:00: 00:00 mouth 3 [place] 00 :00 (three) Medical times Branch daily as needed for Cough. acetaminoph 2021-06- No [id number] 1{tbl} Take 1 U nivers en-codeine 08-05 tablet by ity of 300-30 mg 00:00: 05:59 mouth [place] tablet 00 :00 every 4 Medical (four) Branch hours as needed (pain) for up to 7 days. Indication s: acute pain allopurinol 2021-06 Yes 300 mg = 1 [place] 300 mg oral 0-26 tab, PO, l tablet 17:52: Daily, # [place] 00 30 tab, 0 Refill(s), Pharmacy: [facility], 162.56, cm, 04/10/22 22:50:00 [...] Man 00 30 tab, 0 Refill(s), Pharmacy: [facility], 162.56, cm, 04/10/22 22:50:00 [...] Man 00 30 tab, 0 Refill(s), Pharmacy: [facility], 162.56, cm, 04/10/22 22:50:00 CDT, Height, 74.7, kg, 04/10/22 22:50:00 CDT, Weight docusate 2021-06 Yes 100 mg = 1 Mem oria sodium 100 0-26 cap, PO, l mg oral 17:52: Daily, 0 [place] n capsule 00 Refill(s) allopurinol 2021-06 Yes 300 mg = 1 [place] 300 mg oral 0-26 tab, PO, l tablet 17:52: Daily, # [place] 00 30 tab, 0 Refill(s), Pharmacy: [facility], 162.56, cm, 04/10/22 22:50:00 [...] Man 00 30 tab, 0 Refill(s), Pharmacy: [facility], 162.56, cm, 04/10/22 22:50:00 [...] Man 00 30 tab, 0 Refill(s), Pharmacy: [facility], 162.56, cm, 04/10/22 22:50:00 [...] Man 00 30 tab, 0 Refill(s), Pharmacy: [facility], 162.56, cm, 04/10/22 22:50:00 CDT, Height, 74.7, kg, 04/10/22 22:50:00 CDT, Weight docusate 2021-06 Yes 100 mg = 1 Mem oria sodium 100 0-26 cap, PO, l mg oral 17:52: Daily, 0 [place] n capsule 00 Refill(s) allopurinol 2021-06 Yes 300 mg = 1 [place] 300 mg oral 0-26 tab, PO, l tablet 17:52: Daily, # [place] 00 30 tab, 0 Refill(s), Pharmacy: [facility] 5246, 162.56, cm, 04/10/22 22:50:00 CDT, Height, 74.7, kg, 04/10/22 22:50:00 CDT, Weight docusate 2021-06 Yes 100 mg = 1 Mem oria sodium 100 0-26 cap, PO, l mg oral 17:52: Daily, 0 [place] capsule 00 Refill(s) allopurinol 2021-06 Yes 300 mg = 1 [place] 300 mg oral 0-26 tab, PO, l tablet 17:52: Daily, # [place] 00 30 tab, 0 Refill(s), Pharmacy: [facility]246, 162.56, cm, 04/10/22 22:50:00 [...] Man 00 30 tab, 0 Refill(s), Pharmacy: [facility], 162.56, cm, 04/10/22 22:50:00 CDT, Height, 74.7, kg, 04/10/22 22:50:00 CDT, Weight docusate 2021-06 Yes 100 mg = 1 Mem oria sodium 100 0-26 cap, PO, l mg oral 17:52: Daily, 0 [place] capsule 00 Refill(s) allopurinol 2021-06 Yes 300 mg = 1 [place] 300 mg oral 0-26 tab, PO, l tablet 17:52: Daily, # [place] 00 30 tab, 0 Refill(s), Pharmacy: [facility], 162.56, cm, 04/10/22 22:50:00 [...] Man 00 30 tab, 0 Refill(s), Pharmacy: [facility], 162.56, cm, 04/10/22 22:50:00 [...] Man 00 30 tab, 0 Refill(s), Pharmacy: [facility]246, 162.56, cm, 04/10/22 22:50:00 [...] Man 00 30 tab, 0 Refill(s), Pharmacy: [facility]246, 162.56, cm, 04/10/22 22:50:00 [...] Man 00 30 tab, 0 Refill(s), Pharmacy: [facility]246, 162.56, cm, 04/10/22 22:50:00 CDT, Height, 74.7, kg, 04/10/22 22:50:00 CDT, Weight docusate 2021-06 Yes 100 mg = 1 Mem oria sodium 100 0-26 cap, PO, l mg oral 17:52: Daily, 0 [place] capsule 00 Refill(s) allopurinol 2021-06 Yes 300 mg = 1 [place] 300 mg oral 0-26 tab, PO, l tablet 17:52: Daily, # [place] 00 30 tab, 0 Refill(s), Pharmacy: [facility]246, 162.56, cm, 04/10/22 22:50:00 [...] Man 00 30 tab, 0 Refill(s), Pharmacy: [facility] 5246, 162.56, cm, 04/10/22 22:50:00 [...] Man 00 30 tab, 0 Refill(s), Pharmacy: [facility]246, 162.56, cm, 04/10/22 22:50:00 [...] Man 00 30 tab, 0 Refill(s), Pharmacy: [facility]246, 162.56, cm, 04/10/22 22:50:00 [...] Man 00 30 tab, 0 Refill(s), Pharmacy: [facility]246, 162.56, cm, 04/10/22 22:50:00 [...] Man 00 30 tab, 0 Refill(s), Pharmacy: [facility]246, 162.56, cm, 04/10/22 22:50:00 CDT, Height, 74.7, kg, 04/10/22 22:50:00 CDT, Weight docusate 2021-06 Yes 100 mg = 1 Mem oria sodium 100 0-26 cap, PO, l mg oral 17:52: Daily, 0 [place] n capsule 00 Refill(s) allopurinol 2021-06 Yes 300 mg = 1 [place] 300 mg oral 0-26 tab, PO, l tablet 17:52: Daily, # [place] 00 30 tab, 0 Refill(s), Pharmacy: [facility]246, 162.56, cm, 04/10/22 22:50:00 [...] Man 00 30 tab, 0 Refill(s), Pharmacy: [facility]246, 162.56, cm, 04/10/22 22:50:00 CDT, Height, 74.7, kg, 04/10/22 22:50:00 CDT, Weight docusate 2021-06 Yes 100 mg = 1 Mem oria sodium 100 0-26 cap, PO, l mg oral 17:52: Daily, 0 [place] capsule 00 Refill(s) allopurinol 2021-06 Yes 300 mg = 1 [place] 300 mg oral 0-26 tab, PO, l tablet 17:52: Daily, # [place] 00 30 tab, 0 Refill(s), Pharmacy: [facility]246, 162.56, cm, 04/10/22 22:50:00 [...] Man 00 30 tab, 0 Refill(s), Pharmacy: [facility]246, 162.56, cm, 04/10/22 22:50:00 [...] Man 00 30 tab, 0 Refill(s), Pharmacy: [facility] [place] [id number], 162.56, cm, 04/10/22 22:50:00 CDT, Height, 74.7, kg, 04/10/22 22:50:00 CDT, Weight docusate 2021-06 Yes 100 mg = 1 Mem oria sodium 100 0-26 cap, PO, l mg oral 17:52: Daily, 0 Michael n capsule 00 Refill(s) allopurinol 2021-06 Yes 300 mg = 1 Memoria 300 mg oral 0-26 tab, PO, l tablet 17:52: Daily, # Man 00 30 tab, 0 Refill(s), Pharmacy: [id number], 162.56, cm, 04/10/22 22:50:00 CDT, Height, 74.7, kg, 04/10/22 22:50:00 CDT, Weight docusate 2021-06 Yes 100 mg = 1 Mem oria sodium 100 0-26 cap, PO, l mg oral 17:52: Daily, 0 Michael n capsule 00 Refill(s) allopurinol 2021-06 Yes 300 mg = 1 Memoria 300 mg oral 0-26 tab, PO, l tablet 17:52: Daily, # [place] 00 30 tab, 0 Refill(s), Pharmacy: [id number], 162.56, cm, 04/10/22 22:50:00 CDT, Height, 74.7, kg, 04/10/22 22:50:00 CDT, Weight docusate 2021-06 Yes 100 mg = 1 Mem oria sodium 100 0-26 cap, PO, l mg oral 17:52: Daily, 0 Michael n capsule 00 Refill(s) allopurinol 2021-06 Yes 300 mg = 1 Memoria 300 mg oral 0-26 tab, PO, l tablet 17:52: Daily, # [place] 00 30 tab, 0 Refill(s), Pharmacy: [id number], 162.56, cm, 04/10/22 22:50:00 [...] Man 00 30 tab, 0 Refill(s), Pharmacy: [id number], 162.56, cm, 04/10/22 22:50:00 CDT, Height, 74.7, kg, 04/10/22 22:50:00 CDT, Weight docusate 2021-06 Yes 100 mg = 1 Mem oria sodium 100 0-26 cap, PO, l mg oral 17:52: Daily, 0 Michael n capsule 00 Refill(s) allopurinol 2021-06 Yes 300 mg = 1 Memoria 300 mg oral 0-26 tab, PO, l tablet 17:52: Daily, # [place] 00 30 tab, 0 Refill(s), Pharmacy: [facility], 162.56, cm, 04/10/22 22:50:00 CDT, Height, 74.7, kg, 04/10/22 22:50:00 CDT, Weight docusate 2021-06 Yes 100 mg = 1 Mem oria sodium 100 0-26 cap, PO, l mg oral 17:52: Daily, 0 Michael n capsule 00 Refill(s) allopurinol 2021-06 Yes 300 mg = 1 Memoria 300 mg oral 0-26 tab, PO, l tablet 17:52: Daily, # [place] 00 30 tab, 0 Refill(s), Pharmacy: [id number], 162.56, cm, 04/10/22 22:50:00 CDT, Height, 74.7, kg, 04/10/22 22:50:00 CDT, Weight docusate 2021-06 Yes 100 mg = 1 Mem oria sodium 100 0-26 cap, PO, l mg oral 17:52: Daily, 0 Michael n capsule 00 Refill(s) MiraLax 2021-06 Yes Notes: Memoria 0-16 Dissolve l 14:00: in 8 oz of [place] 00 water or juice. (Same as: Miralax) docusate 2021-06 Yes Notes: Memoria 0-16 (Same as: l 14:00: Colace) [place] 00 (Do Not Crush) MiraLax 2021-06 Yes Notes: Memoria 0-16 Dissolve l 14:00: in 8 oz of Man 00 water or juice. (Same as: Miralax) docusate 2021-06 Yes Notes: Memoria 0-16 (Same as: l 14:00: Colace) Man 00 (Do Not Crush) MiraLax 2021-06 Yes Notes: Memoria 0-16 Dissolve l 14:00: in 8 oz of [place] 00 water or juice. (Same as: Miralax) docusate 2021-06 Yes Notes: Memoria 0-16 (Same as: l 14:00: Colace) [place] 00 (Do Not Crush) MiraLax 2021-06 Yes Notes: Memoria 0-16 Dissolve l 14:00: in 8 oz of Man 00 water or juice. (Same as: Miralax) docusate 2021-06 Yes Notes: Memoria 0-16 (Same as: l 14:00: Colace) [place] 00 (Do Not Crush) MiraLax 2021-06 Yes Notes: Memoria 0-16 Dissolve l 14:00: in 8 oz of [place] 00 water or juice. (Same as: Miralax) docusate 2021-06 Yes Notes: Memoria 0-16 (Same as: l 14:00: Colace) [place] 00 (Do Not Crush) MiraLax 2021-06 Yes Notes: Memoria 0-16 Dissolve l 14:00: in 8 oz of Man 00 water or juice. (Same as: Miralax) docusate 2021-06 Yes Notes: Memoria 0-16 (Same as: l 14:00: Colace) [place] 00 (Do Not Crush) MiraLax 2021-06 Yes Notes: Memoria 0-16 Dissolve l 14:00: in 8 oz of [place] 00 water or juice. (Same as: Miralax) docusate 2021-06 Yes Notes: Memoria 0-16 (Same as: l 14:00: Colace) Man 00 (Do Not Crush) MiraLax 2021-06 Yes Notes: Memoria 0-16 Dissolve l 14:00: in 8 oz of [place] 00 water or juice. (Same as: Miralax) docusate 2021-06 Yes Notes: Memoria 0-16 (Same as: l 14:00: Colace) Man 00 (Do Not Crush) MiraLax 2021-06 Yes Notes: Memoria 0-16 Dissolve l 14:00: in 8 oz of Man 00 water or juice. (Same as: Miralax) docusate 2021-06 Yes Notes: Memoria 0-16 (Same as: l 14:00: Colace) [place] 00 (Do Not Crush) MiraLax 2021-06 Yes Notes: Memoria 0-16 Dissolve l 14:00: in 8 oz of Man 00 water or juice. (Same as: Miralax) docusate 2021-06 Yes Notes: Memoria 0-16 (Same as: l 14:00: Colace) [place] 00 (Do Not Crush) MiraLax 2021-06 Yes Notes: Memoria 0-16 Dissolve l 14:00: in 8 oz of [place] 00 water or juice. (Same as: Miralax) docusate 2021-06 Yes Notes: Memoria 0-16 (Same as: l 14:00: Colace) Man 00 (Do Not Crush) MiraLax 2021-06 Yes Notes: Memoria 0-16 Dissolve l 14:00: in 8 oz of [place] 00 water or juice. (Same as: Miralax) docusate 2021-06 Yes Notes: Memoria 0-16 (Same as: l 14:00: Colace) [place] 00 (Do Not Crush) MiraLax 2021-06 Yes Notes: Memoria 0-16 Dissolve l 14:00: in 8 oz of Man 00 water or juice. (Same as: Miralax) docusate 2021-06 Yes Notes: Memoria 0-16 (Same as: l 14:00: Colace) [place] 00 (Do Not Crush) MiraLax 2021-06 Yes Notes: Memoria 0-16 Dissolve l 14:00: in 8 oz of [place] 00 water or juice. (Same as: Miralax) docusate 2021-06 Yes Notes: Memoria 0-16 (Same as: l 14:00: Colace) [place] 00 (Do Not Crush) MiraLax 2021-06 Yes Notes: Memoria 0-16 Dissolve l 14:00: in 8 oz of [place] 00 water or juice. (Same as: Miralax) docusate 2021-06 Yes Notes: Memoria 0-16 (Same as: l 14:00: Colace) [place] 00 (Do Not Crush) MiraLax 2021-06 Yes Notes: Memoria 0-16 Dissolve l 14:00: in 8 oz of [place] 00 water or juice. (Same as: Miralax) docusate 2021-06 Yes Notes: Memoria 0-16 (Same as: l 14:00: Colace) Man 00 (Do Not Crush) MiraLax 2021-06 Yes Notes: Memoria 0-16 Dissolve l 14:00: in 8 oz of Man 00 water or juice. (Same as: Miralax) docusate 2021-06 Yes Notes: Memoria 0-16 (Same as: l 14:00: Colace) [place] 00 (Do Not Crush) MiraLax 2021-06 Yes Notes: Memoria 0-16 Dissolve l 14:00: in 8 oz of [place] 00 water or juice. (Same as: Miralax) docusate 2021-06 Yes Notes: Memoria 0-16 (Same as: l 14:00: Colace) [place] 00 (Do Not Crush) MiraLax 2021-06 Yes [...] Dissolve l 14:00: in 8 oz of [place] 00 water or juice. (Same as: Miralax) docusate 2021-06 Yes Notes: Memoria 0-16 (Same as: l 14:00: Colace) [place] 00 (Do Not Crush) MiraLax 2021-06 Yes Notes: Memoria 0-16 Dissolve l 14:00: in 8 oz of [place] 00 water or juice. (Same as: Miralax) docusate 2021-06 Yes Notes: Memoria 0-16 (Same as: l 14:00: Colace) [place] 00 (Do Not Crush) MiraLax 2021-06 Yes Notes: Memoria 0-16 Dissolve l 14:00: in 8 oz of [place] 00 water or juice. (Same as: Miralax) [...] Dissolve l 14:00: in 8 oz of [place] 00 water or juice. (Same as: Miralax) docusate 2021-06 Yes Notes: Memoria 0-16 (Same as: l 14:00: Colace) [place] 00 (Do Not Crush) MiraLax 2021-06 Yes [...] Memoria 0-16 (Same as: l 14:00: Colace) [place] 00 (Do Not Crush) MiraLax 2021-06 Yes Notes: Memoria 0-16 Dissolve l 14:00: in 8 oz of Man 00 water or juice. (Same as: Miralax) docusate 2021-06 Yes Notes: Memoria 0-16 (Same as: l 14:00: Colace) [place] 00 (Do Not Crush) MiraLax 2021-06 Yes Notes: Memoria 0-16 Dissolve l 14:00: in 8 oz of Man 00 water or juice. (Same as: Miralax) docusate 2021-06 Yes Notes: Memoria 0-16 (Same as: l 14:00: Colace) Man 00 (Do Not Crush) MiraLax 2021-06 Yes Notes: Memoria 0-16 Dissolve l 14:00: in 8 oz of [place] 00 water or juice. (Same as: Miralax) docusate 2021-06 Yes Notes: Memoria 0-16 (Same as: l 14:00: Colace) Man 00 (Do Not Crush) MiraLax 2021-06 Yes Notes: Memoria 0-16 Dissolve l 14:00: in 8 oz of [place] 00 water or juice. (Same as: Miralax) [...] Laxative 0-15 (Same As: l 18:16: Dulcolax, [place] 00 Bisco-Lax) Dulcolax 2021-06 Yes Notes: Memoria Laxative 0-15 (Same As: l 18:16: Dulcolax, Man 00 Bisco-Lax) Dulcolax 2021-06 Yes Notes: Memoria Laxative 0-15 (Same As: l 18:16: Dulcolax, Man 00 Bisco-Lax) Dulcolax 2021-06 Yes Notes: Memoria Laxative 0-15 (Same As: l 18:16: Dulcolax, [place] 00 Bisco-Lax) Dulcolax 2021-06 Yes Notes: Memoria Laxative 0-15 (Same As: l 18:16: Dulcolax, Man 00 Bisco-Lax) Dulcolax 2021-06 Yes Notes: Memoria Laxative 0-15 (Same As: l 18:16: Dulcolax, [place] 00 Bisco-Lax) Dulcolax 2021-06 Yes Notes: Memoria Laxative 0-15 (Same As: l 18:16: Dulcolax, [place] 00 Bisco-Lax) Dulcolax 2021-06 Yes Notes: Memoria Laxative 0-15 (Same As: l 18:16: Dulcolax, [place] 00 Bisco-Lax) Dulcolax 2021-06 Yes Notes: Memoria Laxative 0-15 (Same As: l 18:16: Dulcolax, Man 00 Bisco-Lax) Dulcolax 2021-06 Yes Notes: Memoria Laxative 0-15 (Same As: l 18:16: Dulcolax, [place] 00 Bisco-Lax) Dulcolax 2021-06 Yes Notes: Memoria Laxative 0-15 (Same As: l 18:16: Dulcolax, Man 00 Bisco-Lax) Dulcolax 2021-06 Yes Notes: Memoria Laxative 0-15 (Same As: l 18:16: Dulcolax, Man 00 Bisco-Lax) Dulcolax 2021-06 Yes Notes: Memoria Laxative 0-15 (Same As: l 18:16: Dulcolax, [place] 00 Bisco-Lax) Dulcolax 2021-06 Yes Notes: Memoria Laxative 0-15 (Same As: l 18:16: Dulcolax, [place] 00 Bisco-Lax) Dulcolax 2021-06 Yes Notes: Memoria [...] Laxative 0-15 (Same As: l 18:16: Dulcolax, [place] 00 Bisco-Lax) Dulcolax 2021-06 Yes Notes: Memoria Laxative 0-15 (Same As: l 18:16: Dulcolax, [place] 00 Bisco-Lax) Dulcolax 2021-06 Yes Notes: Memoria Laxative 0-15 (Same As: l 18:16: Dulcolax, [place] 00 Bisco-Lax) Dulcolax 2021-06 Yes Notes: Memoria Laxative 0-15 (Same As: l 18:16: Dulcolax, Man 00 Bisco-Lax) Dulcolax 2021-06 Yes Notes: Memoria Laxative 0-15 (Same As: l 18:16: Dulcolax, Man 00 Bisco-Lax) Dulcolax 2021-06 Yes Notes: Memoria Laxative 0-15 (Same As: l 18:16: Dulcolax, Man 00 Bisco-Lax) Dulcolax 2021-06 Yes Notes: Memoria Laxative 0-15 (Same As: l 18:16: Dulcolax, [place] 00 Bisco-Lax) Dulcolax 2021-06 Yes Notes: Memoria Laxative 0-15 (Same As: l 18:16: Dulcolax, Man 00 Bisco-Lax) Dulcolax 2021-06 Yes Notes: Memoria Laxative 0-15 (Same As: l 18:16: Dulcolax, [place] 00 Bisco-Lax) Dulcolax 2021-06 Yes Notes: Memoria Laxative 0-15 (Same As: l 18:16: Dulcolax, Man 00 Bisco-Lax) Dulcolax 2021-06 Yes Notes: Memoria Laxative 0-15 (Same As: l 18:16: Dulcolax, Man 00 Bisco-Lax) Dulcolax 2021-06 Yes Notes: Memoria Laxative 0-15 (Same As: l 18:16: Dulcolax, [place] 00 Bisco-Lax) Dulcolax 2021-06 No Notes: Memoria [...] Laxative 0-15 (Same As: l 18:14: Dulcolax, [place] 00 Correctol) (Do Not Crush) "Do Not Crush" MiraLax 2021-06 No Notes: Memoria 0-15 Dissolve l 18:14: in 8 oz of [place] 00 water or juice. (Same as: Miralax) Dulcolax 2021-06 No Notes: Memoria Laxative 0-15 (Same As: l 18:14: Dulcolax, Man 00 Correctol) (Do Not Crush) "Do Not Crush" MiraLax 2021-06 No Notes: Memoria 0-15 Dissolve l 18:14: in 8 oz of [place] 00 water or juice. (Same as: Miralax) Dulcolax 2021-06 No Notes: Memoria Laxative 0-15 (Same As: l 18:14: Dulcolax, [place] 00 Correctol) (Do Not Crush) "Do Not [...] Dissolve l 18:14: in 8 oz of [place] 00 water or juice. (Same as: Miralax) Dulcolax 2021-06 No Notes: Memoria Laxative 0-15 (Same As: l 18:14: Dulcolax, Man 00 Correctol) (Do Not Crush) "Do Not Crush" MiraLax 2021-06 No Notes: Memoria 0-15 Dissolve l 18:14: in 8 oz of [place] 00 water or juice. (Same as: Miralax) Dulcolax 2021-06 No Notes: Memoria Laxative 0-15 (Same As: l 18:14: Dulcolax, [place] 00 Correctol) (Do Not Crush) "Do Not [...] Laxative 0-15 (Same As: l 18:14: Dulcolax, [place] 00 Correctol) (Do Not Crush) "Do Not Crush" MiraLax 2021-06 No Notes: Memoria 0-15 Dissolve l 18:14: in 8 oz of [place] 00 water or juice. (Same as: Miralax) Dulcolax 2021-06 No Notes: Memoria Laxative 0-15 (Same As: l 18:14: Dulcolax, [place] 00 Correctol) (Do Not Crush) "Do Not Crush" MiraLax 2021-06 No Notes: Memoria 0-15 Dissolve l 18:14: in 8 oz of Amn 00 water or juice. (Same as: Miralax) Dulcolax 2021-06 No Notes: Memoria Laxative 0-15 (Same As: l 18:14: Dulcolax, Man 00 Correctol) (Do Not Crush) "Do Not Crush" MiraLax 2021-06 No Notes: Memoria 0-15 Dissolve l 18:14: in 8 oz of [place] 00 water or juice. (Same as: Miralax) Dulcolax 2021-06 No Notes: Memoria Laxative 0-15 (Same As: l 18:14: Dulcolax, [place] 00 Correctol) (Do Not Crush) "Do Not [...] Dissolve l 18:14: in 8 oz of [place] 00 water or juice. (Same as: Miralax) Dulcolax 2021-06 No Notes: Memoria Laxative 0-15 (Same As: l 18:14: Dulcolax, Man 00 Correctol) (Do Not Crush) "Do Not Crush" MiraLax 2021-06 No Notes: Memoria 0-15 Dissolve l 18:14: in 8 oz of [place] 00 water or juice. (Same as: Miralax) Dulcolax 2021-06 No Notes: Memoria Laxative 0-15 (Same As: l 18:14: Dulcolax, [place] 00 Correctol) (Do Not Crush) "Do Not Crush" MiraLax 2021-06 No Notes: Memoria 0-15 Dissolve l 18:14: in 8 oz of [place] 00 water or juice. (Same as: Miralax) Dulcolax 2021-06 No Notes: Memoria Laxative 0-15 (Same As: l 18:14: Dulcolax, [place] 00 Correctol) (Do Not Crush) "Do Not [...] Laxative 0-15 (Same As: l 18:14: Dulcolax, [place] 00 Correctol) (Do Not Crush) "Do Not Crush" MiraLax 2021-06 No Notes: Memoria 0-15 Dissolve l 18:14: in 8 oz of Man 00 water or juice. (Same as: Miralax) Dulcolax 2021-06 No Notes: Memoria Laxative 0-15 (Same As: l 18:14: Dulcolax, [place] 00 Correctol) (Do Not Crush) "Do Not Crush" MiraLax 2021-06 No Notes: Memoria 0-15 Dissolve l 18:14: in 8 oz of Man 00 water or juice. (Same as: Miralax) Dulcolax 2021-06 No Notes: Memoria Laxative 0-15 (Same As: l 18:14: Dulcolax, [place] 00 Correctol) (Do Not Crush) "Do Not Crush" MiraLax 2021-06 No Notes: Memoria 0-15 Dissolve l 18:14: in 8 oz of [place] 00 water or juice. (Same as: Miralax) [...] Dissolve l 18:14: in 8 oz of [place] 00 water or juice. (Same as: Miralax) Dulcolax 2021-06 No Notes: Memoria Laxative 0-15 (Same As: l 18:14: Dulcolax, [place] 00 Correctol) (Do Not Crush) "Do Not Crush" MiraLax 2021-06 No Notes: Memoria 0-15 Dissolve l 18:14: in 8 oz of Man 00 water or juice. (Same as: Miralax) Dulcolax 2021-06 No Notes: Memoria Laxative 0-15 (Same As: l 18:14: Dulcolax, [place] 00 Correctol) (Do Not Crush) "Do Not Crush" MiraLax 2021-06 No Notes: Memoria 0-15 Dissolve l 18:14: in 8 oz of [place] 00 water or juice. (Same as: Miralax) Dulcolax 2021-06 No Notes: Memoria Laxative 0-15 (Same As: l 18:14: Dulcolax, [place] 00 Correctol) (Do Not Crush) "Do Not Crush" MiraLax 2021-06 No Notes: Memoria 0-15 Dissolve l 18:14: in 8 oz of Man 00 water or juice. (Same as: Miralax) Dulcolax 2021-06 No Notes: Memoria Laxative 0-15 (Same As: l 18:14: Dulcolax, [place] 00 Correctol) (Do Not Crush) "Do Not Crush" MiraLax 2021-06 No Notes: Memoria 0-15 Dissolve l 18:14: in 8 oz of Man 00 water or juice. (Same as: Miralax) Dulcolax 2021-06 No Notes: Memoria Laxative 0-15 (Same As: l 18:14: Dulcolax, [place] 00 Correctol) (Do Not Crush) "Do Not Crush" MiraLax 2021-06 No Notes: Memoria 0-15 Dissolve l 18:14: in 8 oz of Man 00 water or juice. (Same as: Miralax) montelukast 2021-06 Yes Notes: Humble alivia 0-14 (Same l 02:00: as:Singula Man 00 ir) montest 2021-06 Yes Notes: Humble alivia 0-14 (Same l 02:00: as:Singula [place] 00 ir) montekast 2021-06 Yes Notes: Humble alivia 0-14 (Same l 02:00: as:Singula [place] 00 ir) montekast 2021-06 Yes Notes: Humble alivia 0-14 (Same l 02:00: as:Singula [place] 00 ir) montelukast 2021-06 Yes Notes: Humble alivia 0-14 (Same l 02:00: as:Singula [place] 00 ir) montelukast 2021-06 Yes Notes: Humble alivia 0-14 (Same l 02:00: as:Singula [place] 00 ir) montelukast 2021-06 Yes Notes: Humble alivia 0-14 (Same l 02:00: as:Singula [place] 00 ir) montekast 2021-06 Yes Notes: Humble alivia 0-14 (Same l 02:00: as:Singula [place] 00 ir) montelukast 2021-06 Yes Notes: Humble alivia 0-14 (Same l 02:00: as:Singula [place] 00 ir) count includes the [facility]2021-06 Yes Notes: Humble alivia 0-14 (Same l 02:00: as:Singula [place] 00 ir) count includes the [facility]2021-06 Yes Notes: Humble alivia 0-14 (Same l 02:00: as:Singula Man 00 ir) count includes the [facility]2021-06 Yes Notes: Humble alivia 0-14 (Same l 02:00: as:Singula Man 00 ir) count includes the [facility]2021-06 Yes Notes: Humble alivia 0-14 (Same l 02:00: as:Singula [place] ir) count includes the [facility]2021-06 Yes Notes: Humble alivia 0-14 (Same l 02:00: as:Singula Man ir) count includes the [facility]2021-06 Yes Notes: Humble alivia 0-14 (Same l 02:00: as:Singula [place] 00 ir) count includes the [facility]2021-06 Yes Notes: Humble alivia 0-14 (Same l 02:00: as:Singula [place] 00 ir) count includes the [facility]2021-06 Yes Notes: Humble alivia 0-14 (Same l 02:00: as:Singula Man ir) count includes the [facility]2021-06 Yes Notes: Humble alivia 0-14 (Same l 02:00: as:Singula Man ir) count includes the [facility]2021-06 Yes Notes: Humble alivia 0-14 (Same l 02:00: as:Singula [place] 00 ir) count includes the [facility]2021-06 Yes Notes: Humble alivia 0-14 (Same l 02:00: as:Singula Man 00 ir) count includes the [facility]2021-06 Yes Notes: Humble alivia 0-14 (Same l 02:00: as:Singula Man 00 ir) count includes the [facility]2021-06 Yes Notes: Humble alivia 0-14 (Same l 02:00: as:Singula [place] 00 ir) [facility] 2021-06 Yes Notes: Humble alivia 0-14 (Same l 02:00: as:Singula [place] 00 ir) count includes the [facility] 2021-06 Yes Notes: Humble alivia 0-14 (Same l 02:00: as:Singula [place] 00 ir) [facility] Yes Notes: Humble alivia 0-14 (Same l 02:00: as:Singula [place] 00 ir) [facility] Yes Notes: Humble alivia 0-14 (Same l 02:00: as:Singula [place] 00 ir) montekast 2021-06 Yes Notes: Humble alivia 0-14 (Same l 02:00: as:Singula [place] 00 ir) montekast 2021-06 Yes Notes: Humble alivia 0-14 (Same l 02:00: as:Singula [place] 00 ir) [facility] Yes Notes: Humble alivia 0-14 (Same l 02:00: as:[facility]ula [facility]) [facility] Yes Notes: Humble alivia 0-14 (Same l 02:00: as:[facility]ula [facility] ir) [facility] Yes Notes: Humble alivia 0-14 (Same l 02:00: as:Singula Man 00 ir) [facility] Yes Notes: Humble alivia 0-14 (Same l 02:00: as:Singula [place] 00 ir) guaiFENesin 2021-06 Yes Notes: Humble laivia 0-13 (Same as: l 14:00: Guaifenesi n [place], Humibid [place], Mucinex) "Do Not Crush" Take medication with plenty of water. acetic acid 2021-06 Yes 5 drp, Humble alivia otic 2% 0-13 Route: l solution 14:00: BOTH EARS, Her swanson 00 Drug Form: SOLN, Dosing Weight 74.7, kg, TID, Start date: 04/11/22 9:00:00 CDT, Duration: 30 day, Stop date: 05/10/22 17:00:00 PRIZE FIGHTER, 0 amLODIPine 2021-06 Yes Notes: Memor ia [...] Duration: 30 day, Stop date: 05/10/22 17:00:00 PRIZE FIGHTER, 0 amLODIPine 2021-06 Yes Notes: Memor ia 0-13 (Same as: l 14:00: Norvasc) famotidine 2021-06 Yes Notes: Memor ia 20 mg oral 0-13 (Same as: l tablet 14:00: Pepcid) hydrochloro 2021-06 Yes Notes: Humble alivia thiazide 0-13 (Same as: l 14:00: Hydrodiuri Man 00 l). Give with food. sucralfate 2021-06 Yes Notes: October emoria 0-13 interfere l 14:00: w/enteral [place] 00 feeds - Take 1 hr before or 2 hr after antacids, dairy pdt, meals & minerals - On empty stomach. For patients unable to swallow tablet, dissolve in 10mL - 30mL of water or juice and stir before giving. (Same As: Carafate) guaiFENesin 2021-06 Yes Notes: Humble alivia 0-13 (Same as: l 14:00: Guaifenesi [place] 00 n [place], Humibid [place], Mucinex) "Do Not Crush" Take medication with plenty of water. 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 Give with food. sucralfate 2021-06 [...] alivia 0-13 (Same as: l 14:00: Guaifenesi [place] 00 n [place], Humibid [place], Mucinex) "Do Not Crush" Take medication with plenty of water. acetic acid 2021-06 Yes 5 drp, Humble alivia otic 2% 0-13 Route: l solution 14:00: BOTH EARS, Her swanson 00 Drug Form: SOLN, Dosing Weight 74.7, kg, TID, Start date: 04/11/22 9:00:00 CDT, Duration: 30 day, Stop date: 05/10/22 17:00:00 PRIZE FIGHTER, 0 amLODIPine 2021-06 Yes Notes: Memor ia [...] Duration: 30 day, Stop date: 05/10/22 17:00:00 PRIZE FIGHTER, 0 amLODIPine 2021-06 Yes Notes: Memor ia [...] Duration: 30 day, Stop date: 05/10/22 17:00:00 PRIZE FIGHTER, 0 amLODIPine 2021-06 Yes Notes: Memor ia 0-13 (Same as: l 14:00: Norvasc) guaiFENesin 2021-06 Yes Notes: Humble alivia 0-13 (Same as: l 14:00: Guaifenesi [place] 00 n [place], Humibid [place], Mucinex) "Do Not Crush" Take medication with plenty of water. acetic acid 2021-06 Yes 5 drp, Humble alivia otic 2% 0-13 Route: l solution 14:00: BOTH EARS, Her swanson 00 Drug Form: SOLN, Dosing Weight 74.7, kg, TID, Start date: 04/11/22 9:00:00 CDT, Duration: 30 day, Stop date: 05/10/22 17:00:00 PRIZE FIGHTER, 0 amLODIPine 2021-06 Yes Notes: Memor ia 0-13 (Same as: l 14:00: Norvasc) famotidine 2021-06 Yes Notes: Memor ia 20 mg oral 0-13 (Same as: l tablet 14:00: Pepcid) hydrochloro 2021-06 Yes Notes: Humble ailvia thiazide 0-13 (Same as: l 14:00: Hydrodiuri [place] l). Give with food. sucralfate 2021-06 Yes [...] 14:00: Hydrodiuri Man l). Give with food. guaiFENesin 2021-06 Yes [...] Duration: 30 day, Stop date: 05/10/22 17:00:00 PRIZE FIGHTER, 0 amLODIPine 2021-06 Yes Notes: Memor ia 0-13 (Same as: l 14:00: Norvasc) famotidine 2021-06 Yes Notes: Memor ia 20 mg oral 0-13 (Same as: l tablet 14:00: Pepcid) hydrochloro 2021-06 Yes Notes: Humble alivia thiazide 0-13 (Same as: l 14:00: Hydrodiuri [place] 00 l). Give with food. sucralfate 2021-06 [...] As: Carafate) sucralfate 2021-06 Yes Notes: October M emoria 0-13 interfere l 14:00: w/enteral [place] 00 feeds - Take 1 hr before [...] Duration: 30 day, Stop date: 05/10/22 17:00:00 PRIZE FIGHTER, 0 amLODIPine 2021-06 Yes Notes: Memor ia [...] alivia 0-13 (Same as: l 14:00: Guaifenesi [place] 00 n [place], Humibid [place], Mucinex) "Do Not Crush" Take medication with plenty of water. acetic acid 2021-06 Yes 5 drp, [place] alivia otic 2% 0-13 Route: l solution 14:00: BOTH EARS, Her swanson 00 Drug Form: SOLN, Dosing Weight 74.7, kg, TID, Start date: 04/11/22 9:00:00 CDT, Duration: 30 day, Stop date: 05/10/22 17:00:00 PRIZE FIGHTER, 0 amLODIPine 2021-06 Yes Notes: Memor ia 0-13 (Same as: l 14:00: Norvasc) famotidine 2021-06 Yes Notes: Memor ia 20 mg oral 0-13 (Same as: l tablet 14:00: Pepcid) hydrochloro 2021-06 Yes Notes: [place] alivia thiazide 0-13 (Same as: l 14:00: Hydrodiuri [place] l). Give with food. sucralfate 2021-06 Yes [...] Duration: 30 day, Stop date: 05/10/22 17:00:00 PRIZE FIGHTER, 0 amLODIPine 2021-06 Yes Notes: Memor ia 0-13 (Same as: l 14:00: Norvasc) famotidine 2021-06 Yes Notes: Memor ia 20 mg oral 0-13 (Same as: l tablet 14:00: Pepcid) hydrochloro 2021-06 Yes Notes: [place] alivia thiazide 0-13 (Same as: l 14:00: Hydrodiuri [place] l). Give with food. sucralfate 2021-06 Yes Notes: October emoria 0-13 interfere l 14:00: w/enteral [place] 00 feeds - Take 1 hr before or 2 hr after antacids, dairy pdt, meals & minerals - On empty stomach. For patients unable to swallow tablet, dissolve in 10mL - 30mL of water or juice and stir before giving. (Same As: Carafate) guaiFENesin 2021-06 Yes Notes: [facility] alivia 0-13 (Same as: l 14:00: Guaifenesi [place] 00 n [place], Humibid [place], Mucinex) "Do Not Crush" Take medication with plenty of water. acetic acid 2021-06 Yes 5 drp, [facility] alivia otic 2% 0-13 Route: l solution 14:00: BOTH EARS, Her swanson 00 Drug Form: SOLN, Dosing Weight 74.7, kg, TID, Start date: 04/11/22 9:00:00 CDT, Duration: 30 day, Stop date: 05/10/22 17:00:00 PRIZE FIGHTER, 0 amLODIPine 2021-06 Yes Notes: Memor ia [...] Duration: 30 day, Stop date: 05/10/22 17:00:00 PRIZE FIGHTER, 0 amLODIPine 2021-06 Yes Notes: [facility] ia 0-13 (Same as: l 14:00: Norvasc) famotidine 2021-06 Yes Notes: [facility] ia 20 mg oral 0-13 (Same as: l tablet 14:00: Pepcid) hydrochloro 2021-06 Yes Notes: [facility]ble alivia thiazide 0-13 (Same as: l 14:00: Hydrodiuri [place] l). Give with food. sucralfate 2021-06 Yes Notes: May Venessa emoria 0-13 interfere l 14:00: w/enteral feeds [...] BOTH EARS, Her swanson 00 Drug Form: MASSIEL, Dosing Weight 74.7, kg, TID, Start date: 04/11/22 9:00:00 CDT, Duration: 30 day, Stop date: 05/10/22 17:00:00 PRIZE FIGHTER, 0 amLODIPine 2021-06 Yes Notes: [facility] ia [...] Duration: 30 day, Stop date: 05/10/22 17:00:00 PRIZE FIGHTER, 0 amLODIPine 2021-06 Yes Notes: Mem[facility] ia 0-13 (Same as: l 14:00: Norvasc) [place] 00 famotidine 2021-06 Yes Notes: Mem[facility] ia 20 mg oral 0-13 (Same as: l tablet 14:00: Pepcid) hydrochloro 2021-06 Yes Notes: Humble alivia thiazide 0-13 (Same as: l 14:00: Hydrodiuri [place] 00 l). Give with food. sucralfate 2021-06 [...] alivia 0-13 (Same as: l 14:00: Guaifenesi [place] 00 n [place], Humibid [place], Mucinex) "Do Not Crush" Take medication with plenty of water. 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 Give with food. sucralfate 2021-06 Yes Notes: October M emoria 0-13 interfere l 14:00: w/enteral [place] 00 feeds - Take 1 hr before or 2 hr after antacids, dairy pdt, meals & minerals - On empty stomach. For patients unable to swallow tablet, dissolve in 10mL - 30mL of water or juice and stir before giving. (Same As: Carafate) guaiFENesin 2021-06 Yes Notes: [facility]ble alivia 0-13 (Same as: l 14:00: Guaifenesi [place] 00 n [place], Humibid [place], Mucinex) "Do Not Crush" Take medication with plenty of water. 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 Give with food. sucralfate 2021-06 Yes Notes: October emoria 0-13 interfere l 14:00: w/enteral [place] 00 feeds - Take 1 hr before or 2 hr after antacids, dairy pdt, meals & minerals - On empty stomach. For patients unable to swallow tablet, dissolve in 10mL - 30mL of water or juice and stir before giving. (Same As: Carafate) guaiFENesin 2021-06 Yes Notes: [facility]ble alivia 0-13 (Same as: l 14:00: Guaifenesi [place] 00 n [place], Humibid [place], Mucinex) "Do Not Crush" Take medication with plenty of water. acetic acid 2021-06 Yes 5 drp, [facility] alivia otic 2% 0-13 Route: l solution 14:00: BOTH EARS, Her swanson 00 Drug Form: SOLN, Dosing Weight 74.7, kg, TID, Start date: 04/11/22 9:00:00 CDT, Duration: 30 day, Stop date: 05/10/22 17:00:00 PRIZE FIGHTER, 0 amLODIPine 2021-06 Yes Notes: Memor ia [...] As: Carafate) guaiFENesin 2021-06 Yes Notes: Humble laivia 0-13 (Same as: l 14:00: Guaifenesi n [place], Humibid [place], Mucinex) "Do Not Crush" Take medication with plenty of water. acetic acid 2021-06 Yes 5 drp, [facility] alivia otic 2% 0-13 Route: l solution 14:00: BOTH EARS, Her swanson 00 Drug Form: SOLN, Dosing Weight 74.7, kg, TID, Start date: 04/11/22 9:00:00 CDT, Duration: 30 day, Stop date: 05/10/22 17:00:00 PRIZE FIGHTER, 0 amLODIPine 2021-06 Yes Notes: [facility] ia 0-13 (Same as: l 14:00: Norvasc) famotidine 2021-06 Yes Notes: [facility] ia 20 mg oral 0-13 (Same as: l tablet 14:00: Pepcid) hydrochloro 2021-06 Yes Notes: Humble alivia thiazide 0-13 (Same as: l 14:00: Hydrodiuri [place] l). Give with food. sucralfate 2021-06 Yes [...] Duration: 30 day, Stop date: 05/10/22 17:00:00 PRIZE FIGHTER, 0 amLODIPine 2021-06 Yes Notes: Memor ia [...] stir before giving. (Same As: Carafate) guaiFENesin 2022-1 Yes Notes: Humble alivia 0-13 (Same as: [...] Duration: 30 day, Stop date: 05/10/22 17:00:00 PRIZE FIGHTER, 0 amLODIPine 2021-06 Yes Notes: Mem[facility] ia [...] Duration: 30 day, Stop date: 05/10/22 17:00:00 PRIZE FIGHTER, 0 amLODIPine 2021-06 Yes Notes: [facility] ia 0-13 (Same as: l 14:00: Norvasc) famotidine 2021-06 Yes Notes: [facility] 20 mg oral 0-13 (Same as: l tablet 14:00: Pepcid) hydrochloro 2021-06 Yes Notes: Humble alivia thiazide 0-13 (Same as: l 14:00: Hydrodiuri [place] l). Give with food. sucralfate 2021-06 Yes [...] Duration: 30 day, Stop date: 05/10/22 17:00:00 PRIZE FIGHTER, 0 amLODIPine 2021-06 Yes Notes: Memor ia [...] alivia 0-13 (Same as: l 14:00: Guaifenesi [place] 00 n [place], Humibid [place], Mucinex) "Do Not Crush" Take medication with plenty of water. acetic acid 2021-06 Yes 5 drp, [facility] alivia otic 2% 0-13 Route: l solution 14:00: BOTH EARS, Her swanson 00 Drug Form: SOLN, Dosing Weight 74.7, kg, TID, Start date: 04/11/22 9:00:00 CDT, Duration: 30 day, Stop date: 05/10/22 17:00:00 PRIZE FIGHTER, 0 amLODIPine 2021-06 Yes Notes: [facility] ia [...] Duration: 30 day, Stop date: 05/10/22 17:00:00 PRIZE FIGHTER, 0 amLODIPine 2021-06 Yes Notes: [facility] 0-13 (Same as: l 14:00: Norvasc) famotidine 2021-06 Yes Notes: [facility] 20 mg oral 0-13 (Same as: l tablet 14:00: Pepcid) hydrochloro 2021-06 Yes Notes: Humble alivia thiazide 0-13 (Same as: l 14:00: Hydrodiuri Man l). Give with food. sucralfate 2021-06 Yes Notes: October M emoria 0-13 interfere l 14:00: w/enteral [place] feeds - Take 1 hr before or [...] Duration: 30 day, Stop date: 05/10/22 17:00:00 PRIZE FIGHTER, 0 amLODIPine 2021-06 Yes Notes: [facility] 0-13 (Same as: l 14:00: Norvasc) famotidine 2021-06 Yes Notes: [facility] 20 mg oral 0-13 (Same as: l tablet 14:00: Pepcid) hydrochloro 2021-06 Yes Notes: Humble alivia thiazide 0-13 (Same as: l 14:00: Hydrodiuri Man l). Give with food. sucralfate 2021-06 Yes Notes: October emoria 0-13 interfere l 14:00: w/enteral [place] feeds - Take 1 hr before or 2 hr after antacids, dairy pdt, meals & minerals - On empty stomach. For patients unable to swallow tablet, dissolve in 10mL - 30mL of water or juice and stir before giving. (Same As: Carafate) guaiFENesin 2021-06 Yes Notes: [facility] alivia 0-13 (Same as: l 14:00: Guaifenesi [place] 00 n [place], Humibid [place], Mucinex) "Do Not Crush" Take medication with plenty of water. 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 Give with food. sucralfate 2021-06 [...] Duration: 30 day, Stop date: 05/10/22 17:00:00 PRIZE FIGHTER, 0 amLODIPine 2021-06 Yes Notes: [facility] 0-13 (Same as: l 14:00: Norvasc) famotidine 2021-06 Yes Notes: [facility] 20 mg oral 0-13 (Same as: l tablet 14:00: Pepcid) hydrochloro 2021-06 Yes Notes: [facility]ble alivia thiazide 0-13 (Same as: l 14:00: Hydrodiuri [place] l). Give with food. sucralfate 2021-06 Yes [...] Duration: 30 day, Stop date: 05/10/22 17:00:00 PRIZE FIGHTER, 0 amLODIPine 2021-06 Yes Notes: Mem[facility] ia [...] Duration: 30 day, Stop date: 05/10/22 17:00:00 PRIZE FIGHTER, 0 amLODIPine 2021-06 Yes Notes: [facility] ia 0-13 (Same as: l 14:00: Norvasc) [place] 00 famotidine 2021-06 Yes Notes: Memor ia [...] Duration: 30 day, Stop date: 05/10/22 17:00:00 PRIZE FIGHTER, 0 amLODIPine 2021-06 Yes Notes: [facility] 0-13 (Same as: l 14:00: Norvasc) [place] 00 famotidine 2021-06 Yes Notes: [facility] 20 mg oral 0-13 (Same as: l tablet 14:00: Pepcid) [place] 00 hydrochloro 2021-06 Yes Notes: [facility] alivia thiazide 0-13 (Same as: l 14:00: Hydrodiuri [place] 00 l). Give with food. sucralfate 2021-06 Yes Notes: May emoria 0-13 interfere l 14:00: w/enteral [place] 00 feeds - Take 1 hr before [...] e 0-13 Tablet l 12:30: should not [place] 00 be chewed or crushed. (Same as: [...] e 0-13 Tablet l 12:30: should not [place] 00 be chewed or crushed. (Same as: Protonix) pantoprazol 2021-06 Yes Notes: [facility]ble alivia e 0-13 Tablet l 12:30: should not [place] 00 be chewed or crushed. (Same as: [...] e 0-13 Tablet l 12:30: should not [place] 00 be chewed or crushed. (Same as: [...] e 0-13 Tablet l 12:30: should not [place] 00 be chewed or crushed. (Same as: Protonix) pantoprazol 2021-06 Yes Notes: Hum[facility] alivia e 0-13 Tablet l 12:30: should not Man 00 be chewed or crushed. (Same as: Protonix) pantoprazol 2021-06 Yes Notes: [facility] alivia e 0-13 Tablet l 12:30: should not [place] 00 be chewed or crushed. (Same as: Protonix) pantoprazol 2021-06 Yes Notes: [facility] alivia e 0-13 Tablet l 12:30: should not [place] 00 be chewed or crushed. (Same as: Protonix) pantoprazol 2021-06 Yes Notes: [facility] alivia e 0-13 Tablet l 12:30: should not Man 00 be chewed or crushed. (Same as: Protonix) pantoprazol 2021-06 Yes Notes: Humble alivia e 0-13 Tablet l 12:30: should not [place] 00 be chewed or crushed. (Same as: Protonix) pantoprazol 2021-06 Yes Notes: [facility] alivia e 0-13 Tablet l 12:30: should not [place] 00 be chewed or crushed. (Same as: Protonix) pantoprazol 2021-06 Yes Notes: [facility]ble alivia e 0-13 Tablet l 12:30: should not [place] 00 be chewed or crushed. (Same as: Protonix) pantoprazol 2021-06 Yes Notes: [facility] alivia e 0-13 Tablet l 12:30: should not Man 00 be chewed or crushed. (Same as: Protonix) pantoprazol 2021-06 Yes Notes: Humble alivia e 0-13 Tablet l 12:30: should not [place] 00 be chewed or crushed. (Same as: Protonix) pantoprazol 2021-06 Yes Notes: Humble alivia e 0-13 Tablet l 12:30: should not [place] 00 be chewed or crushed. (Same as: Protonix) pantoprazol 2021-06 Yes Notes: Humble alivia e 0-13 Tablet l 12:30: should not Man 00 be chewed or crushed. (Same as: Protonix) pantoprazol 2021-06 Yes Notes: Humble alivia e 0-13 Tablet l 12:30: should not [place] 00 be chewed or crushed. (Same as: Protonix) pantoprazol 2021-06 Yes Notes: Humble alivia e 0-13 Tablet l 12:30: should not Man 00 be chewed or crushed. (Same as: Protonix) pantoprazol 2021-06 Yes Notes: Humble alivia e 0-13 Tablet l 12:30: should not [place] 00 be chewed or crushed. (Same as: Protonix) pantoprazol 2021-06 Yes Notes: Humble alivia e 0-13 Tablet l 12:30: should not [place] 00 be chewed or crushed. (Same as: [...] e 0-13 Tablet l 12:30: should not [place] 00 be chewed or crushed. (Same as: [...] 0-13 (Same As: l mL 05:07: Pulmicort [place] inhalation 00 respule). suspension budesonide 2021-06 Yes Notes: [facility] ia 0.25 mg/2 0-13 (Same As: l mL 05:07: Pulmicort [place] inhalation 00 respule). suspension budesonide 2021-06 Yes Notes: Mem[facility] ia 0.25 mg/2 0-13 (Same As: l mL 05:07: Pulmicort Man inhalation 00 respule). suspension budesonide 2021-06 Yes Notes: Mem[facility] ia 0.25 mg/2 0-13 (Same As: l mL 05:07: Pulmicort [place] inhalation 00 respule). suspension budesonide 2021-06 Yes Notes: Mem[facility] ia 0.25 mg/2 0-13 (Same As: l mL 05:07: Pulmicort Man inhalation 00 respule). suspension budesonide 2021-06 Yes Notes: [facility] ia 0.25 mg/2 0-13 (Same As: l mL 05:07: Pulmicort Man inhalation 00 respule). suspension budesonide 2021-06 Yes Notes: [facility] ia 0.25 mg/2 0-13 (Same As: l mL 05:07: Pulmicort [place] inhalation 00 respule). suspension budesonide 2021-06 Yes Notes: Mem[facility] ia 0.25 mg/2 0-13 (Same As: l mL 05:07: Pulmicort [place] inhalation 00 respule). suspension budesonide 2021-06 Yes Notes: [facility] ia 0.25 mg/2 0-13 (Same As: l mL 05:07: Pulmicort Man inhalation 00 respule). suspension budesonide 2021-06 Yes Notes: [facility] ia 0.25 mg/2 0-13 (Same As: l mL 05:07: Pulmicort [place] inhalation 00 respule). suspension budesonide 2021-06 Yes Notes: Mem[facility] ia 0.25 mg/2 0-13 (Same As: l mL 05:07: Pulmicort [place] inhalation 00 respule). suspension budesonide 2021-06 Yes Notes: Mem[facility] ia 0.25 mg/2 0-13 (Same As: l mL 05:07: Pulmicort Man inhalation 00 respule). suspension budesonide 2021-06 Yes Notes: Mem[facility] ia 0.25 mg/2 0-13 (Same As: l mL 05:07: Pulmicort Man inhalation 00 respule). suspension budesonide 2021-06 Yes Notes: Mem[facility] ia 0.25 mg/2 0-13 (Same As: l mL 05:07: Pulmicort [place] inhalation 00 respule). suspension budesonide 2021-06 Yes Notes: Mem[facility] ia 0.25 mg/2 0-13 (Same As: l mL 05:07: Pulmicort [place] inhalation 00 respule). suspension budesonide 2021-06 Yes Notes: Mem[facility] ia 0.25 mg/2 0-13 (Same As: l mL 05:07: Pulmicort Man inhalation 00 respule). suspension budesonide 2021-06 Yes Notes: Mem[facility] ia 0.25 mg/2 0-13 (Same As: l mL 05:07: Pulmicort Man inhalation 00 respule). suspension budesonide 2021-06 Yes Notes: Mem[facility] ia 0.25 mg/2 0-13 (Same As: l mL 05:07: Pulmicort [place] inhalation 00 respule). suspension budesonide 2021-06 Yes Notes: Mem[facility] ia 0.25 mg/2 0-13 (Same As: l mL 05:07: Pulmicort Man inhalation 00 respule). suspension budesonide 2021-06 Yes Notes: [facility] ia 0.25 mg/2 0-13 (Same As: l mL 05:07: Pulmicort Man inhalation 00 respule). suspension budesonide 2021-06 Yes Notes: Mem[facility] ia 0.25 mg/2 0-13 (Same As: l mL 05:07: Pulmicort [place] inhalation 00 respule). suspension budesonide 2021-06 Yes Notes: Mem[facility] ia 0.25 mg/2 0-13 (Same As: l mL 05:07: Pulmicort [place] inhalation 00 respule). suspension budesonide 2021-06 Yes Notes: Mem[facility] ia 0.25 mg/2 0-13 (Same As: l mL 05:07: Pulmicort [place] inhalation 00 respule). suspension budesonide 2021-06 Yes Notes: [facility] ia 0.25 mg/2 0-13 (Same As: l mL 05:07: Pulmicort Man inhalation 00 respule). suspension budesonide 2021-06 Yes Notes: Mem[facility] ia 0.25 mg/2 0-13 (Same As: l mL 05:07: Pulmicort [place] inhalation 00 respule). suspension budesonide 2021-06 Yes Notes: Mem[facility] ia 0.25 mg/2 0-13 (Same As: l mL 05:07: Pulmicort [place] inhalation 00 respule). suspension budesonide 2021-06 Yes Notes: Mem[facility] ia 0.25 mg/2 0-13 (Same As: l mL 05:07: Pulmicort [place] inhalation 00 respule). suspension budesonide 2021-06 Yes Notes: Mem[facility] ia 0.25 mg/2 0-13 (Same As: l mL 05:07: Pulmicort Man inhalation 00 respule). suspension budesonide 2021-06 Yes Notes: Mem[facility] ia 0.25 mg/2 0-13 (Same As: l mL 05:07: Pulmicort [place] inhalation 00 respule). suspension budesonide 2021-06 Yes Notes: Mem[facility] ia 0.25 mg/2 0-13 (Same As: l mL 05:07: Pulmicort [place] inhalation 00 respule). suspension budesonide 2021-06 Yes Notes: Mem[facility] ia 0.25 mg/2 0-13 (Same As: l mL 05:07: Pulmicort [place] inhalation 00 respule). suspension benzonatate 2021-06 Yes Notes: Humble alivia 0-13 (Same As: l 05:01: Tessalon [place] 00 [place]) "Do Not Crush" benzonatate 2021-06 Yes Notes: Humble alivia 0-13 (Same As: l 05:01: Tess[place]on Man 00 [place]) "Do Not Crush" benzonatate 2021-06 Yes Notes: Humble alivia 0-13 (Same As: l 05:01: Tess[place]on Man 00 [place]) "Do Not Crush" benzonatate 2021-06 Yes Notes: Humble alivia 0-13 (Same As: l 05:01: Tess[place]on [place] 00 [place]) "Do Not Crush" benzonatate 2021-06 Yes Notes: Humble alivia 0-13 (Same As: l 05:01: Tess[place] Man 00 [place]) "Do Not Crush" benzonatate 2021-06 Yes Notes: Humble alivia 0-13 (Same As: l 05:01: Tess[place] Man 00 [place]) "Do Not Crush" benzonatate 2021-06 Yes Notes: Humble alivia 0-13 (Same As: l 05:01: Tess[place]on [place] 00 [place]) "Do Not Crush" benzonatate 2021-06 Yes Notes: Humble alivia 0-13 (Same As: l 05:01: Tess[place]on [place] 00 [place]) "Do Not Crush" benzonatate 2021-06 Yes Notes: Humble alivia 0-13 (Same As: l 05:01: Tess[place]on [place] 00 [place]) "Do Not Crush" benzonatate 2021-06 Yes Notes: Humble alivia 0-13 (Same As: l 05:01: Tess[place]on [place] 00 [place]) "Do Not Crush" benzonatate 2021-06 Yes Notes: Humble alivia 0-13 (Same As: l 05:01: Tess[place]on [place] 00 [place]) "Do Not Crush" benzonatate 2021-06 Yes Notes: Humble alivia 0-13 (Same As: l 05:01: Tess[place] Man 00 [place]) "Do Not Crush" benzonatate 2021-06 Yes Notes: Humble alivia 0-13 (Same As: l 05:01: Tess[place] Man 00 [place]) "Do Not Crush" benzonatate 2021-06 Yes Notes: Humble alivia 0-13 (Same As: l 05:01: Tess[place]on Man [place]) "Do Not Crush" benzonatate 2021-06 Yes Notes: Humble alivia 0-13 (Same As: l 05:01: Tess[place]on [place]) "Do Not Crush" benzonatate 2021-06 Yes Notes: Humble alivia 0-13 (Same As: l 05:01: Tess[place]on [place]) "Do Not Crush" benzonatate 2021-06 Yes Notes: Humble alivia 0-13 (Same As: l 05:01: Tess[place]on [place]) "Do Not Crush" benzonatate 2021-06 Yes Notes: Humble alivia 0-13 (Same As: l 05:01: Tess[place]on [place]) "Do Not Crush" benzonatate 2021-06 Yes Notes: Humble alivia 0-13 (Same As: l 05:01: Tessalon Man [place]) "Do Not Crush" benzonatate 2021-06 Yes Notes: Humble alivia 0-13 (Same As: l 05:01: Tessalon Man [place]) "Do Not Crush" benzonatate 2021-06 Yes Notes: Humble alivia 0-13 (Same As: l 05:01: Tessalon Man [place]) "Do Not Crush" benzonatate 2021-06 Yes Notes: Humble alivia 0-13 (Same As: l 05:01: Tess[place]on Man [place]) "Do Not Crush" benzonatate 2021-06 Yes Notes: Humble alivia 0-13 (Same As: l 05:01: Tess[place]on [place]) "Do Not Crush" benzonatate 2021-06 Yes Notes: Humble alivia 0-13 (Same As: l 05:01: Tess[place]on [place]) "Do Not Crush" benzonatate 2021-06 Yes Notes: Humble alivia 0-13 (Same As: l 05:01: Tess[place]on Man [place]) "Do Not Crush" benzonatate 2021-06 Yes Notes: Humble alivia 0-13 (Same As: l 05:01: Tess[place]on Man [place]) "Do Not Crush" benzonatate 2021-06 Yes Notes: Humble alivia 0-13 (Same As: l 05:01: Tess[place]on [place] Per[place]) "Do Not Crush" benzonatate 2021-06 Yes Notes: Humble alivia 0-13 (Same As: l 05:01: Tess[place]on [place]) "Do Not Crush" benzonatate 2021-06 Yes Notes: Humble alivia 0-13 (Same As: l 05:01: Tess[place]on [place]) "Do Not Crush" benzonatate 2021-06 Yes Notes: Humble alivia 0-13 (Same As: l 05:01: Tessalon Man [place]) "Do Not Crush" benzonatate 2021-06 Yes Notes: Humble alivia 0-13 (Same As: l 05:01: Tess[place]on [place]) "Do Not Crush" benzonatate 2021-06 Yes Notes: Humble alivia 0-13 (Same As: l 05:01: Tess[place]on [place] Perles) "Do Not Crush" influenza 2021-06 Yes [...] Crush" Take medication with plenty of water. guaiFENesin 2021-06 No Notes: Humble alivia 0-13 (Same as: l 04:38: Guaifenesi [place] 00 n [place], Humibid [place], Mucinex) "Do Not Crush" Take medication with plenty of water. guaiFENesin 2021-06 No Notes: Humble alivia 0-13 (Same as: l 04:38: Guaifenesi Man 00 n [place], Humibid [place], Mucinex) "Do Not Crush" Take medication with plenty of water. [facility] 2021-06 No Notes: Humble alivia 0-13 (Same as: l 04:38: Guaifenesi Man 00 n [place], Humibid [place], Mucinex) "Do Not Crush" Take medication with plenty of water. [facility]2021-06 No Notes: Humble alivia 0-13 (Same as: l 04:38: Guaifenesi [place] 00 n [place], Humibid [place], Mucinex) "Do Not Crush" Take medication with plenty of water. [facility] 2021-06 No Notes: Humble alivia 0-13 (Same as: l 04:38: Guaifenesi Man 00 n [place], Humibid [place], Mucinex) "Do Not Crush" Take medication with plenty of water. [facility] 2021-06 No Notes: Humble alivia 0-13 (Same as: l 04:38: Guaifenesi [place] 00 n [place], Humibid [place], Mucinex) "Do Not Crush" Take medication with plenty of water. [facility] 2021-06 No Notes: Humble alivia 0-13 (Same as: l 04:38: Guaifenesi [place] 00 n [place], Humibid [place], Mucinex) "Do Not Crush" Take medication with plenty of water. [facility] 2021-06 No Notes: Humble alivia 0-13 (Same as: l 04:38: Guaifenesi [place] 00 n [place], Humibid [place], Mucinex) "Do Not Crush" Take medication with plenty of water. [facility]2021-06 No Notes: Humble alivia 0-13 (Same as: l 04:38: Guaifenesi [place] 00 n [place], Humibid [place], Mucinex) "Do Not Crush" Take medication with plenty of water. [facility] 2021-06 No Notes: Humble alivia 0-13 (Same as: l 04:38: Guaifenesi [place] 00 n [place], Humibid [place], Mucinex) "Do Not Crush" Take medication with plenty of water. [facility]2021-06 No Notes: Humble alivia 0-13 (Same as: l 04:38: Guaifenesi Man 00 n [place], Humibid [place], Mucinex) "Do Not Crush" Take medication with plenty of water. [facility]2021-06 No Notes: Humble alivia 0-13 (Same as: l 04:38: Guaifenesi [place] 00 n [place], Humibid [place], Mucinex) "Do Not Crush" Take medication with plenty of water. [facility]2021-06 No Notes: Humble alivia 0-13 (Same as: l 04:38: Guaifenesi Man 00 n [place], Humibid [place], Mucinex) "Do Not Crush" Take medication with plenty of water. [facility] 2021-06 No Notes: Humble alivia 0-13 (Same as: l 04:38: Guaifenesi Man 00 n [place], Humibid [place], Mucinex) "Do Not Crush" Take medication with plenty of water. [facility]2021-06 No Notes: Humble alivia 0-13 (Same as: l 04:38: Guaifenesi Man 00 n [place], Humibid [place], Mucinex) "Do Not Crush" Take medication with plenty of water. [facility] 2021-06 No Notes: Humble alivia 0-13 (Same as: l 04:38: Guaifenesi [place] 00 n [place], Humibid [place], Mucinex) "Do Not Crush" Take medication with plenty of water. [facility]2021-06 No Notes: Humble alivia 0-13 (Same as: l 04:38: Guaifenesi [place] 00 n [place], Humibid [place], Mucinex) "Do Not Crush" Take medication with plenty of water. [facility] 2021-06 No Notes: Humble alivia 0-13 (Same as: l 04:38: Guaifenesi Man 00 n [place], Humibid [place], Mucinex) "Do Not Crush" Take medication with plenty of water. [facility] 2021-06 No Notes: Humble alivia 0-13 (Same as: l 04:38: Guaifenesi [place] 00 n [place], Humibid [place], Mucinex) "Do Not Crush" Take medication with plenty of water. [facility] 2021-06 No Notes: Humble alivia 0-13 (Same as: l 04:38: Guaifenesi [place] 00 n [place], Humibid [place], Mucinex) "Do Not Crush" Take medication with plenty of water. [facility] 2021-06 No Notes: Humble alivia 0-13 (Same as: l 04:38: Guaifenesi [place] 00 n [place], Humibid [place], Mucinex) "Do Not Crush" Take medication with plenty of water. [facility] 2021-06 No Notes: Humble alivia 0-13 (Same as: l 04:38: Guaifenesi [place] 00 n [place], Humibid [place], Mucinex) "Do Not Crush" Take medication with plenty of water. [facility] 2021-06 No Notes: Humble alivia 0-13 (Same as: l 04:38: Guaifenesi Man 00 n [place], Humibid [place], Mucinex) "Do Not Crush" Take medication with plenty of water. [facility] 2021-06 No Notes: Humble alivia 0-13 (Same as: l 04:38: Guaifenesi [place] 00 n [place], Humibid [place], Mucinex) "Do Not Crush" Take medication with plenty of water. [facility] [facility] No Notes: [facility] alivia 0-13 (Same as: l 04:38: Gu[place]if[place] 00 n [place], Humibid [place], Mucinex) "Do Not Crush" Take medication with plenty of water. [facility] 2021-06 No Notes: [facility] alivia 0-13 (Same as: l 04:38: Gu[place]ifenes[place] Man 00 n [place], Humibid [place], Mucinex) "Do Not Crush" Take medication with plenty of water. [facility] 2021-06 No Notes: [facility] alivia 0-13 (Same as: l 04:38: Gu[place]enes[place] 00 n [place], Humibid [place], Mucinex) "Do Not Crush" Take medication [facility]. [facility]: [facility] alivia 0-13 (Same as: l 04:38: [place] 00 n [place], Humibid LA, Mucinex) "Do Not Crush" Take medication with plenty of water. [facility] Notes: [facility] alivia 0-13 (Same as: l 04:38: [place] Man 00 n [place], Humibid [place], Mucinex) "Do Not Crush" Take medication with plenty of water. [facility] No Notes: [facility] alivia 0-13 (Same as: l 04:38: [place] Man 00 n [place], Humibid LA, Mucinex) "Do Not Crush" Take medication with plenty of water. [facility] No Notes: [facility] alivia 0-13 (Same as: l 04:38: [place] 00 n [place], Humibid [place], Mucinex) "Do Not Crush" Take medication with plenty of water. Dilaudid 2021-06 Yes Notes: Memoria 0-13 Same as: l 04:22: Dilaudid [place] 00 Dilaudid 2021-06 Yes Notes: Memoria 0-13 Same as: l 04:22: Dilaudid Man 00 Dilaudid 2021-06 Yes Notes: Memoria 0-13 Same as: l 04:22: Dilaudid Man 00 Dilaudid 2021-06 Yes Notes: Memoria 0-13 Same as: l 04:22: Dilaudid [place] 00 Dilaudid 2021-06 Yes Notes: Memoria 0-13 Same as: l 04:22: Dilaudid Man Dilaudid 2021-06 Yes Notes: Memoria 0-13 Same as: l 04:22: Dilaudid Man Dilaudid 2021-06 Yes Notes: Memoria 0-13 Same as: l 04:22: Dilaudid [place] Dilaudid 2021-06 Yes Notes: Memoria 0-13 Same as: l 04:22: Dilaudid [place] 00 Dilaudid 2021-06 Yes Notes: Memoria 0-13 Same as: l 04:22: Dilaudid [place] 00 Dilaudid 2021-06 Yes Notes: Memoria 0-13 Same as: l 04:22: Dilaudid [place] 00 Dilaudid 2021-06 Yes Notes: Memoria 0-13 Same as: l 04:22: Dilaudid Man 00 Dilaudid 2021-06 Yes Notes: Memoria 0-13 Same as: l 04:22: Dilaudid [place] 00 Dilaudid 2021-06 Yes Notes: Memoria 0-13 Same as: l 04:22: Dilaudid [place] 00 Dilaudid 2021-06 Yes Notes: Memoria 0-13 Same as: l 04:22: Dilaudid [place] 00 Dilaudid 2021-06 Yes Notes: Memoria 0-13 [...] Memoria 0-13 Same as: l 04:22: Dilaudid [place] 00 Dilaudid 2021-06 Yes Notes: Memoria 0-13 Same as: l 04:22: Dilaudid Man 00 Dilaudid 2021-06 Yes Notes: [facility]oria 0-13 Same as: l 04:22: Dilaudid [place] 00 Dilaudid 2021-06 Yes Notes: [facility]oria 0-13 Same as: l 04:22: Dilaudid [place] 00 Dilaudid 2021-06 Yes Notes: Memoria 0-13 Same as: l 04:22: Dilaudid [place] 00 Dilaudid 2021-06 Yes Notes: Memoria 0-13 Same as: l 04:22: Dilaudid [place] 00 Dilaudid 2021-06 Yes Notes: Memoria 0-13 Same as: l 04:22: Dilaudid [place] 00 Dilaudid 2021-06 Yes Notes: Memoria 0-13 Same as: l 04:22: Dilaudid Man 00 Dilaudid 2021-06 Yes Notes: Memoria 0-13 Same as: l 04:22: Dilaudid Man 00 Dilaudid 2021-06 Yes Notes: [facility]oria 0-13 Same as: l 04:22: Dilaudid [place] 00 Dilaudid 2021-06 Yes Notes: [facility]oria 0-13 Same as: l 04:22: Dilaudid Man 00 Dilaudid 2021-06 Yes Notes: [facility]oria 0-13 Same as: l 04:22: Dilaudid [place] 00 Dilaudid 2021-06 Yes Notes: [facility]oria 0-13 Same as: l 04:22: Dilaudid Man 00 Dilaudid 2021-06 Yes Notes: [facility]oria 0-13 Same as: l 04:22: Dilaudid [place] 00 Dilaudid 2021-06 No Notes: [facility]oria 0-13 Same as: l 04:19: Dilaudid Man 00 Dilaudid 2021-06 No Notes: Memoria 0-13 Same as: l 04:19: Dilaudid Man 00 Dilaudid 2021-06 No Notes: [facility]oria 0-13 Same as: l 04:19: Dilaudid [place] 00 Dilaudid 2021-06 No Notes: Memoria 0-13 Same as: l 04:19: Dilaudid [place] 00 Dilaudid 2021-06 No Notes: Memoria 0-13 Same as: l 04:19: Dilaudid [place] 00 Dilaudid 2021-06 No Notes: Memoria 0-13 Same as: l 04:19: Dilaudid [place] 00 Dilaudid 2021-06 No Notes: Memoria 0-13 Same as: l 04:19: Dilaudid Man 00 Dilaudid 2021-06 No Notes: Memoria 0-13 Same as: l 04:19: Dilaudid [place] 00 Dilaudid 2021-06 No Notes: Memoria 0-13 Same as: l 04:19: Dilaudid [place] 00 Dilaudid 2021-06 No Notes: Memoria 0-13 Same as: l 04:19: Dilaudid Man 00 Dilaudid 2021-06 No Notes: Memoria 0-13 Same as: l 04:19: Dilaudid Man 00 Dilaudid 2021-06 No Notes: Memoria 0-13 Same as: l 04:19: Dilaudid Man 00 Dilaudid 2021-06 No Notes: Memoria 0-13 Same as: l 04:19: Dilaudid [place] 00 Dilaudid 2021-06 No Notes: Memoria 0-13 Same as: l 04:19: Dilaudid Man 00 Dilaudid 2021-06 No Notes: Memoria 0-13 Same as: l 04:19: Dilaudid Man 00 Dilaudid 2021-06 No Notes: Memoria 0-13 Same as: l 04:19: Dilaudid [place] 00 Dilaudid 2021-06 No Notes: Memoria 0-13 Same as: l 04:19: Dilaudid Man 00 Dilaudid 2021-06 No Notes: Memoria 0-13 Same as: l 04:19: Dilaudid [place] 00 Dilaudid 2021-06 No Notes: Memoria 0-13 Same as: l 04:19: Dilaudid Man 00 Dilaudid 2021-06 No Notes: Memoria 0-13 Same as: l 04:19: Dilaudid [place] 00 Dilaudid 2021-06 No Notes: Memoria 0-13 Same as: l 04:19: Dilaudid Man 00 Dilaudid 2021-06 No Notes: Memoria 0-13 Same as: l 04:19: Dilaudid [place] 00 Dilaudid 2021-06 No Notes: Memoria 0-13 Same as: l 04:19: Dilaudid [place] 00 Dilaudid 2021-06 No Notes: Memoria 0-13 Same as: l 04:19: Dilaudid Man 00 Dilaudid 2021-06 No Notes: [facility]oria 0-13 Same as: l 04:19: Dilaudid Man 00 Dilaudid 2021-06 No Notes: Memoria 0-13 Same as: l 04:19: Dilaudid [place] 00 Dilaudid 2021-06 No Notes: Memoria 0-13 Same as: l 04:19: Dilaudid [place] 00 Dilaudid 2021-06 No Notes: Memoria 0-13 Same as: l 04:19: Dilaudid Man Dilaudid 2021-06 No Notes: Memoria 0-13 Same as: l 04:19: Dilaudid Man Dilaudid 2021-06 No Notes: Memoria 0-13 Same as: l 04:19: Dilaudid Man Dilaudid 2021-06 No Notes: Memoria 0-13 Same as: l 04:19: Dilaudid Man Dilaudid 2021-06 No Notes: Memoria 0-13 Same as: l 04:19: Dilaudid Man omeprazole 2021-06 Yes 20 mg = 1 [...] NEB, l mL 04:17: BID, # 60 [place] inhalation 00 ea, 3 suspension Refill(s) budesonide 2021-06 Yes 0.25 mg = Me moria 0.25 mg/2 0-13 2 mL, NEB, l mL 04:17: BID, # 60 [place] inhalation 00 ea, 3 suspension Refill(s) budesonide 2021-06 Yes 0.25 mg = Me moria 0.25 mg/2 0-13 2 mL, NEB, l mL 04:17: BID, # 60 [place] inhalation 00 ea, 3 suspension Refill(s) budesonide [...] NEB, l mL 04:17: BID, # 60 [place] inhalation 00 ea, 3 suspension Refill(s) budesonide 2021-06 Yes 0.25 mg = Me moria 0.25 mg/2 0-13 2 mL, NEB, l mL 04:17: BID, # 60 [place] inhalation 00 ea, 3 suspension Refill(s) budesonide 2021-06 Yes 0.25 mg = Me moria 0.25 mg/2 0-13 2 mL, NEB, l mL 04:17: BID, # 60 [place] inhalation 00 ea, 3 suspension Refill(s) budesonide [...] NEB, l mL 04:17: BID, # 60 [place] inhalation 00 ea, 3 suspension Refill(s) budesonide 2021-06 Yes 0.25 mg = Me moria 0.25 mg/2 0-13 2 mL, NEB, l mL 04:17: BID, # 60 [place] inhalation 00 ea, 3 suspension Refill(s) budesonide 2021-06 Yes 0.25 mg = Me moria 0.25 mg/2 0-13 2 mL, NEB, l mL 04:17: BID, # 60 [place] inhalation 00 ea, 3 suspension Refill(s) budesonide 2021-06 Yes 0.25 mg = Me moria 0.25 mg/2 0-13 2 mL, NEB, l mL 04:17: BID, # 60 [place] inhalation 00 ea, 3 suspension Refill(s) budesonide 2021-06 Yes 0.25 mg = Me moria 0.25 mg/2 0-13 2 mL, NEB, l mL 04:17: BID, # 60 [place] inhalation 00 ea, 3 suspension Refill(s) budesonide 2021-06 Yes 0.25 mg = Me moria 0.25 mg/2 0-13 2 mL, NEB, l mL 04:17: BID, # 60 [place] inhalation 00 ea, 3 suspension Refill(s) budesonide [...] NEB, l mL 04:17: BID, # 60 [place] inhalation 00 ea, 3 suspension Refill(s) budesonide 2021-06 Yes 0.25 mg = Me moria 0.25 mg/2 0-13 2 mL, NEB, l mL 04:17: BID, # 60 [place] inhalation 00 ea, 3 suspension Refill(s) budesonide 2021-06 Yes 0.25 mg = Me moria 0.25 mg/2 0-13 2 mL, NEB, l mL 04:17: BID, # 60 [place] inhalation 00 ea, 3 suspension Refill(s) budesonide [...] Man inhalation 00 ea, 3 suspension Refill(s) benzonatate [...] cap, PO, l capsule 04:15: Q6H, PRN Micahel n 00 as needed for cough, 0 Refill(s) benzonatate 2021-06 Yes 200 mg = 1 Memoria 200 mg oral 0-13 cap, PO, l capsule 04:15: Q6H, PRN Michael n 00 as needed for cough, 0 Refill(s) fluticasone 2021-06 Yes 50 Memori a propionate 0-13 microgram, l 04:13: INHALATION [place] , Daily, 0 Refill(s) fluticasone 2021-06 Yes 50 Memori a propionate 0-13 microgram, l 04:13: INHALATION [place] , Daily, 0 Refill(s) fluticasone 2021-06 Yes 50 Memori a propionate 0-13 microgram, l 04:13: INHALATION [place] , Daily, 0 Refill(s) fluticasone 2021-06 Yes 50 Memori a propionate 0-13 microgram, l 04:13: INHALATION [place] , Daily, 0 Refill(s) fluticasone 2021-06 Yes 50 Memori a propionate 0-13 microgram, l 04:13: INHALATION [place] , Daily, 0 Refill(s) fluticasone 2021-06 Yes 50 Memori a propionate 0-13 microgram, l 04:13: INHALATION [place] , Daily, 0 Refill(s) fluticasone 2021-06 Yes 50 Memori a propionate 0-13 microgram, l 04:13: INHALATION [place] , Daily, 0 Refill(s) fluticasone 2021-06 Yes 50 Memori a propionate 0-13 microgram, l 04:13: INHALATION [place] , Daily, 0 Refill(s) fluticasone 2021-06 Yes 50 Memori a propionate 0-13 microgram, l 04:13: INHALATION Man , Daily, 0 Refill(s) fluticasone 2021-06 Yes 50 Memori a propionate 0-13 microgram, l 04:13: INHALATION [place] , Daily, 0 Refill(s) fluticasone 2021-06 Yes [...] a propionate 0-13 microgram, l 04:13: INHALATION [place] 00 , Daily, 0 Refill(s) fluticasone 2021-06 Yes 50 Memori a propionate 0-13 microgram, l 04:13: INHALATION Man , Daily, 0 Refill(s) fluticasone 2021-06 Yes 50 Memori a propionate 0-13 microgram, l 04:13: INHALATION [place] , Daily, 0 Refill(s) fluticasone 2021-06 Yes 50 Memori a propionate 0-13 microgram, l 04:13: INHALATION [place] , Daily, 0 Refill(s) fluticasone 2021-06 Yes 50 Memori a propionate 0-13 microgram, l 04:13: INHALATION [place] , Daily, 0 Refill(s) fluticasone 2021-06 Yes 50 Memori a propionate 0-13 microgram, l 04:13: INHALATION Man , Daily, 0 Refill(s) fluticasone 2021-06 Yes 50 Memori a propionate 0-13 microgram, l 04:13: INHALATION [place] , Daily, 0 Refill(s) fluticasone 2021-06 Yes 50 Memori a propionate 0-13 microgram, l 04:13: INHALATION Man , Daily, 0 Refill(s) fluticasone 2021-06 Yes 50 Memori a propionate 0-13 microgram, l 04:13: INHALATION [place] , Daily, 0 Refill(s) fluticasone 2021-06 Yes 50 Memori a propionate 0-13 microgram, l 04:13: INHALATION [place] , Daily, 0 Refill(s) fluticasone 2021-06 Yes 50 Memori a propionate 0-13 microgram, l 04:13: INHALATION [place] 00 , Daily, 0 Refill(s) fluticasone 2021-06 Yes 50 Memori a propionate 0-13 microgram, l 04:13: INHALATION Man , Daily, 0 Refill(s) fluticasone 2021-06 Yes 50 Memori a propionate 0-13 microgram, l 04:13: INHALATION Man 00 , Daily, 0 Refill(s) fluticasone 2021-06 Yes 50 Memori a propionate 0-13 microgram, l 04:13: INHALATION [place] 00 , Daily, 0 Refill(s) fluticasone 2021-06 Yes 50 Memori a propionate 0-13 microgram, l 04:13: INHALATION Man 00 , Daily, 0 Refill(s) fluticasone 2021-06 Yes 50 Memori a propionate 0-13 microgram, l 04:13: INHALATION Man 00 , Daily, 0 Refill(s) fluticasone 2021-06 Yes 50 Memori a propionate 0-13 microgram, l 04:13: INHALATION [place] 00 , Daily, 0 Refill(s) fluticasone 2021-06 Yes 50 Memori a propionate 0-13 microgram, l 04:13: INHALATION Man 00 , Daily, 0 Refill(s) fluticasone 2021-06 Yes 50 Memori a propionate 0-13 microgram, l 04:13: INHALATION Man 00 , Daily, 0 Refill(s) acetic acid [...] tab, PO, l oral 04:10: Daily, # [place] enteric 00 30 tab, 0 coated Refill(s) [...] tab, PO, l oral 04:10: Daily, # [place] enteric 00 30 tab, 0 coated Refill(s) tablet pantoprazol 2021-06 Yes 40 mg = 1 M emoria e 40 mg 0-13 tab, PO, l oral 04:10: Daily, # [place] enteric 00 30 tab, 0 coated Refill(s) tablet pantoprazol 2021-06 Yes 40 mg = 1 M emoria e 40 mg 0-13 tab, PO, l oral 04:10: Daily, # [place] enteric 00 30 tab, 0 coated Refill(s) [...] tab, PO, l oral 04:10: Daily, # [place] enteric 00 30 tab, 0 coated Refill(s) [...] tab, PO, l oral 04:10: Daily, # [place] enteric 00 30 tab, 0 coated Refill(s) tablet pantoprazol 2021-06 Yes 40 mg = 1 M emoria e 40 mg 0-13 tab, PO, l oral 04:10: Daily, # [place] enteric 00 30 tab, 0 coated Refill(s) [...] tab, PO, l oral 04:10: Daily, # [place] enteric 00 30 tab, 0 coated Refill(s) tablet pantoprazol 2021-06 Yes 40 mg = 1 M emoria e 40 mg 0-13 tab, PO, l oral 04:10: Daily, # [place] enteric 00 30 tab, 0 coated Refill(s) tablet pantoprazol 2021-06 Yes 40 mg = 1 M emoria e 40 mg 0-13 tab, PO, l oral 04:10: Daily, # Man enteric 00 30 tab, 0 coated Refill(s) tablet pantoprazol 2021-06 Yes 40 mg = 1 M emoria e 40 mg 0-13 tab, PO, l oral 04:10: Daily, # [place] enteric 00 30 tab, 0 coated Refill(s) tablet pantoprazol 2021-06 Yes 40 mg = 1 M emoria e 40 mg 0-13 tab, PO, l oral 04:10: Daily, # Man enteric 00 30 tab, 0 coated Refill(s) tablet pantoprazol 2021-06 Yes 40 mg = 1 M emoria e 40 mg 0-13 tab, PO, l oral 04:10: Daily, # [place] enteric 00 30 tab, 0 coated Refill(s) [...] tab, PO, l oral 04:10: Daily, # [place] enteric 00 30 tab, 0 coated Refill(s) tablet pantoprazol 2021-06 Yes 40 mg = 1 M emoria e 40 mg 0-13 tab, PO, l oral 04:10: Daily, # [place] enteric 00 30 tab, 0 coated Refill(s) tablet pantoprazol 2021-06 Yes 40 mg = 1 M emoria e 40 mg 0-13 tab, PO, l oral 04:10: Daily, # [place] enteric 00 30 tab, 0 coated Refill(s) tablet pantoprazol 2021-06 Yes 40 mg = 1 M emoria e 40 mg 0-13 tab, PO, l oral 04:10: Daily, # [place] enteric 00 30 tab, 0 coated Refill(s) [...] tab, PO, l oral 04:10: Daily, # [place] enteric 00 30 tab, 0 coated Refill(s) tablet amLODIPine 2021-06 Yes 5 mg = 1 Mem oria 5 mg oral 0-13 tab, PO, l tablet 04:06: Daily, # [place] 00 30 tab, 0 Refill(s) Deconex DMX 2021-06 Yes PO, Q4H, Me moria 0-13 PRN as l 04:06: needed for [place] 00 cough and congestion , 0 Refill(s) amLODIPine 2021-06 Yes 5 mg = 1 Mem oria 5 mg oral 0-13 tab, PO, l tablet 04:06: Daily, # [place] 00 30 tab, 0 Refill(s) Deconex DMX 2021-06 Yes PO, Q4H, Me moria 0-13 PRN as l 04:06: needed for [place] 00 cough and congestion , 0 Refill(s) amLODIPine 2021-06 Yes 5 mg = 1 Mem oria 5 mg oral 0-13 tab, PO, l tablet 04:06: Daily, # Man 00 30 tab, 0 Refill(s) Deconex DMX 2021-06 Yes PO, Q4H, Me moria 0-13 PRN as l 04:06: needed for [place] 00 cough and congestion , 0 Refill(s) amLODIPine 2021-06 Yes 5 mg = 1 Mem oria 5 mg oral 0-13 tab, PO, l tablet 04:06: Daily, # Man 00 30 tab, 0 Refill(s) Deconex DMX 2021-06 Yes PO, Q4H, Me moria 0-13 PRN as l 04:06: needed for [place] cough and congestion , 0 Refill(s) amLODIPine 2021-06 Yes 5 mg = 1 Mem oria 5 mg oral 0-13 tab, PO, l tablet 04:06: Daily, # [place] 00 30 tab, 0 Refill(s) Deconex DMX [...] 0-13 PRN as l 04:06: needed for [place] cough and congestion , 0 Refill(s) amLODIPine [...] 0-13 PRN as l 04:06: needed for [place] 00 cough and congestion , 0 Refill(s) amLODIPine 2021-06 Yes 5 mg = 1 Mem oria 5 mg oral 0-13 tab, PO, l tablet 04:06: Daily, # [place] 00 30 tab, 0 Refill(s) Deconex DMX 2021- Yes PO, Q4H, Me moria 0-13 PRN as l 04:06: needed for [place] 00 cough and congestion , 0 Refill(s) amLODIPine 2021- Yes 5 mg = 1 Mem oria [...] 0-13 PRN as l 04:06: needed for [place] 00 cough and congestion , 0 Refill(s) amLODIPine 2021- Yes 5 mg = 1 Mem oria 5 mg oral 0-13 tab, PO, l tablet 04:06: Daily, # [place] 00 30 tab, 0 Refill(s) Deconex DMX 2021-1 Yes PO, Q4H, Me moria 0-13 PRN as l 04:06: needed for Man 00 cough and congestion , 0 Refill(s) amLODIPine 2021- Yes 5 mg = 1 Mem oria 5 mg oral 0-13 tab, PO, l tablet 04:06: Daily, # [place] 00 30 tab, 0 Refill(s) Deconex DMX 2021-1 Yes PO, Q4H, Me moria 0-13 PRN as l 04:06: needed for [place] 00 cough and congestion , 0 Refill(s) amLODIPine 2021- Yes 5 mg = 1 Mem oria 5 mg oral 0-13 tab, PO, l tablet 04:06: Daily, # Man 00 30 tab, 0 Refill(s) Deconex DMX 2021-1 Yes PO, Q4H, Me moria 0-13 PRN [...] tab, PO, l tablet 04:06: Daily, # [place] 00 30 tab, 0 Refill(s) Deconex DMX 2021-06 Yes PO, Q4H, Me moria 0-13 PRN as l 04:06: needed for [place] cough and congestion , 0 Refill(s) amLODIPine 2021-06 Yes 5 mg = 1 Mem oria 5 mg oral 0-13 tab, PO, l tablet 04:06: Daily, # [place] 00 30 tab, 0 Refill(s) Deconex DMX 2021-06 Yes PO, Q4H, Me moria 0-13 PRN as l 04:06: needed for [place] cough and congestion , 0 Refill(s) amLODIPine 2021-06 Yes 5 mg = 1 Mem oria 5 mg oral 0-13 tab, PO, l tablet 04:06: Daily, # [place] 00 30 tab, 0 Refill(s) Deconex DMX 2021- Yes PO, Q4H, Me moria 0-13 PRN as l 04:06: needed for [place] cough and congestion , 0 Refill(s) amLODIPine 2021-06 Yes 5 mg = 1 Mem oria 5 mg oral 0-13 tab, PO, l tablet 04:06: Daily, # Man 00 30 tab, 0 Refill(s) Deconex DMX 2021-1 Yes PO, Q4H, Me moria 0-13 PRN as l 04:06: needed for [place] 00 cough and congestion , 0 Refill(s) [...] tab, PO, l tablet 04:06: Daily, # [place] 00 30 tab, 0 Refill(s) Deconex DMX 2021- Yes PO, Q4H, Me moria 0-13 PRN as l 04:06: needed for Man 00 cough and congestion , 0 Refill(s) amLODIPine 2021-06 Yes 5 mg = 1 Mem oria 5 mg oral 0-13 tab, PO, l tablet 04:06: Daily, # [place] 00 30 tab, 0 Refill(s) Deconex DMX 2021- Yes PO, Q4H, Me moria 0-13 PRN as l 04:06: needed for [place] cough and congestion , 0 Refill(s) amLODIPine 2021-06 Yes 5 mg = 1 Mem oria 5 mg oral 0-13 tab, PO, l tablet 04:06: Daily, # Man 00 30 tab, 0 Refill(s) Deconex DMX 2021- Yes PO, Q4H, Me moria 0-13 PRN as l 04:06: needed for [place] 00 cough and congestion , 0 Refill(s) amLODIPine 2021-06 Yes 5 mg = 1 Mem oria 5 mg oral 0-13 tab, PO, l tablet 04:06: Daily, # Man 00 30 tab, 0 Refill(s) Deconex DMX 2021-1 Yes PO, Q4H, Me moria 0-13 PRN as l 04:06: needed for Man 00 cough and congestion , 0 Refill(s) amLODIPine 2021-06 Yes 5 mg = 1 Mem oria 5 mg oral 0-13 tab, PO, l tablet 04:06: Daily, # [place] 00 30 tab, 0 Refill(s) Deconex DMX 2021- Yes PO, Q4H, Me moria 0-13 PRN as l 04:06: needed for Man 00 cough and congestion , 0 Refill(s) amLODIPine 2021-06 Yes 5 mg = 1 Mem oria 5 mg oral 0-13 tab, PO, l tablet 04:06: Daily, # [place] 00 30 tab, 0 Refill(s) Deconex DMX 2021- Yes PO, Q4H, Me moria 0-13 PRN as l 04:06: needed for Man 00 cough and congestion , 0 Refill(s) amLODIPine 2021-06 Yes 5 mg = 1 Mem oria 5 mg oral 0-13 tab, PO, l tablet 04:06: Daily, # [place] 00 30 tab, 0 Refill(s) Deconex DMX 2021-06 Yes PO, Q4H, Me moria 0-13 PRN as l 04:06: needed for Man 00 cough and congestion , 0 Refill(s) amLODIPine 2021-06 Yes 5 mg = 1 Mem oria 5 mg oral 0-13 tab, PO, l tablet 04:06: Daily, # [place] 00 30 tab, 0 Refill(s) Deconex DMX 2021- Yes PO, Q4H, Me moria 0-13 PRN as l 04:06: needed for Man 00 cough and congestion , 0 Refill(s) amLODIPine 2021-06 Yes 5 mg = 1 Mem oria 5 mg oral 0-13 tab, PO, l tablet 04:06: Daily, # [place] 00 30 tab, 0 Refill(s) Deconex DMX 2021-1 Yes PO, Q4H, Me moria 0-13 PRN as l 04:06: needed for [place] 00 cough and congestion , 0 Refill(s) amLODIPine 2021-06 Yes 5 mg = 1 Mem oria 5 mg oral 0-13 tab, PO, l tablet 04:06: Daily, # Man 00 30 tab, 0 Refill(s) Deconex DMX 2021-1 Yes PO, Q4H, Me moria 0-13 PRN as l 04:06: needed for [place] 00 cough and congestion , 0 Refill(s) amLODIPine 2021-06 Yes 5 mg = 1 Mem oria 5 mg oral 0-13 tab, PO, l tablet 04:06: Daily, # Man 00 30 tab, 0 Refill(s) Deconex DMX 2022-1 Yes PO, Q4H, Me moria 0-13 PRN as l 04:06: needed for [place] 00 cough and congestion , 0 Refill(s) [...] thiazide 0-13 PO, Daily, l 04:03: 0 [place] 00 Refill(s) hydrochloro 2021-06 Yes 12.5 mg, Me moria thiazide 0-13 PO, Daily, l 04:03: 0 [place] 00 Refill(s) hydrochloro 2021-06 Yes 12.5 mg, [...] thiazide 0-13 PO, Daily, l 04:03: 0 [place] 00 Refill(s) hydrochloro 2021-06 Yes 12.5 mg, Me moria thiazide 0-13 PO, Daily, l 04:03: 0 Man 00 Refill(s) hydrochloro 2021-06 Yes 12.5 mg, Me moria thiazide 0-13 PO, Daily, l 04:03: 0 [place] 00 Refill(s) hydrochloro 2021- Yes 12.5 mg, Me moria thiazide 0-13 PO, Daily, l 04:03: 0 Man 00 Refill(s) hydrochloro 2021-06 Yes 12.5 mg, Me moria thiazide 0-13 PO, Daily, l 04:03: 0 [place] 00 Refill(s) hydrochloro 2021-06 Yes 12.5 mg, [...] thiazide 0-13 PO, Daily, l 04:03: 0 [place] 00 Refill(s) hydrochloro 2021-06 Yes 12.5 mg, Me moria thiazide 0-13 PO, Daily, l 04:03: 0 [place] 00 Refill(s) hydrochloro 2021-06 Yes 12.5 mg, Me moria thiazide 0-13 PO, Daily, l 04:03: 0 [place] 00 Refill(s) hydrochloro 2021-06 Yes 12.5 mg, Me moria thiazide 0-13 PO, Daily, l 04:03: 0 Man 00 Refill(s) hydrochloro 2021-06 Yes 12.5 mg, Me moria thiazide 0-13 PO, Daily, l 04:03: 0 [place] 00 Refill(s) hydrochloro 2021-06 Yes 12.5 mg, Me moria thiazide 0-13 PO, Daily, l 04:03: 0 Man 00 Refill(s) hydrochloro 2021-06 Yes 12.5 mg, Me moria thiazide 0-13 PO, Daily, l 04:03: 0 [place] 00 Refill(s) hydrochloro 2021-06 Yes 12.5 mg, Me moria thiazide 0-13 PO, Daily, l 04:03: 0 Man 00 Refill(s) hydrochloro 2021-06 Yes 12.5 mg, Me moria thiazide 0-13 PO, Daily, l 04:03: 0 Man 00 Refill(s) hydrochloro 2021-06 Yes 12.5 mg, Me moria thiazide 0-13 PO, Daily, l 04:03: 0 [place] 00 Refill(s) hydrochloro 2021-06 Yes 12.5 mg, Me moria thiazide 0-13 PO, Daily, l 04:03: 0 Man 00 Refill(s) hydrochloro 2021-06 Yes 12.5 mg, Me moria thiazide 0-13 PO, Daily, l 04:03: 0 [place] 00 Refill(s) hydrochloro 2021-06 Yes 12.5 mg, Me moria thiazide 0-13 PO, Daily, l 04:03: 0 Refill(s) hydrochloro 2021-06 Yes 12.5 mg, Me moria thiazide 0-13 PO, Daily, l 04:03: 0 Man 00 Refill(s) hydrochloro 2021-06 Yes 12.5 mg, Me moria thiazide 0-13 PO, Daily, l 04:03: 0 Man 00 Refill(s) hydrochloro 2021-06 Yes 12.5 mg, Me moria thiazide 0-13 PO, Daily, l 04:03: 0 [place] 00 Refill(s) ZyrTEC 10 2021-06 Yes 10 [...] 120 Cathleen nn 00 tab, 0 Refill(s) acetaminoph 2021-06 Yes Notes: Do M emoria en 0-13 not exceed l 03:18: 4 gm/day. (Same as: Tylenol) glucagon 2021-06 Yes 1 mg, Memoria 0-13 Route: IM, l 03:18: Drug form: Man 00 PDR/INJ, PRN, kg, PRN Blood Glucose Results, Start date: 04/10/22 22:18:00 CDT, Duration: 30 day, Stop date: 05/10/22 21:17:00 [employer], 0 ondansetron 2021-06 Yes Notes: [facility]ble alivia 0-13 (Same as: l 03:18: Zofran) MEDICATION WASTE Product Size: 4 mg Product Wasted: ___ mg melatonin 2021-06 Yes Notes: Memori a 0-13 (Same as: l 03:18: Melatonin) Dextrose 2021-06 Yes 12.5 gm, Memor ia 50% Syringe 0-13 25 mL, l ([id number]) 03:18: Route: [place] 00 IVP, Drug Form: INJ, kg, PRN, PRN Blood Glucose Results, Start date: 04/10/22 22:18:00 CDT, Duration: 30 day, Stop date: 05/10/22 21:17:00 [employer]IZE FIGHTER, 0 glucagon 2021-06 Yes 1 mg, Memoria 0-13 Route: IM, l 03:18: Drug form: Man 00 PDR/INJ, PRN, kg, PRN Blood Glucose Results, Start date: 04/10/22 22:18:00 CDT, Duration: 30 day, Stop date: 05/10/22 21:17:00 PRIZE FIGHTER, 0 ondansetron 2021-06 Yes Notes: [place] alivia 0-13 (Same as: l 03:18: Zofran) Man MEDICATION WASTE Product Size: 4 mg Product Wasted: ___ mg melatonin 2021-06 Yes Notes: Memori a 0-13 (Same as: l 03:18: Melatonin) acetaminoph 2021-06 Yes Notes: Do M emoria en 0-13 not exceed l 03:18: 4 gm/day. [place] 00 (Same as: Tylenol) acetaminoph 2021-06 Yes Notes: Do M emoria en 0-13 not exceed l 03:18: 4 gm/day. Man 00 (Same as: Tylenol) Dextrose 2021-06 Yes 12.5 gm, Memor ia 50% Syringe 0-13 25 mL, l ([id number]) 03:18: Route: Man 00 IVP, Drug Form: INJ, kg, PRN, PRN Blood Glucose Results, Start date: 04/10/22 22:18:00 CDT, Duration: 30 day, Stop date: 05/10/22 21:17:00 [employer]IZE [employer]TER, 0 glucagon 2021-06 Yes 1 mg, Memoria 0-13 Route: IM, l 03:18: Drug form: [place] 00 PDR/INJ, PRN, kg, PRN Blood Glucose Results, Start date: 04/10/22 22:18:00 CDT, Duration: 30 day, Stop date: 05/10/22 21:17:00 PRIZE FIGHTER, 0 ondansetron 2021-06 Yes Notes: [facility] [...] Duration: 30 day, Stop date: 05/10/22 21:17:00 PRIZE FIGHTER, 0 glucagon 2021-06 Yes 1 mg, [facility] 0-13 Route: IM, l 03:18: Drug form: Man 00 PDR/INJ, PRN, kg, PRN Blood Glucose Results, Start date: 04/10/22 22:18:00 CDT, Duration: 30 day, Stop date: 05/10/22 21:17:00 PRIZE FIGHTER, 0 ondansetron 2021-06 Yes Notes: [facility] [...] Duration: 30 day, Stop date: 05/10/22 21:17:00 PRIZE FIGHTER, 0 glucagon 2021-06 Yes 1 mg, [facility] 0-13 Route: IM, l 03:18: Drug form: Man 00 PDR/INJ, PRN, kg, PRN Blood Glucose Results, Start date: 04/10/22 22:18:00 CDT, Duration: 30 day, Stop date: 05/10/22 21:17:00 PRIZE FIGHTER, 0 ondansetron 2021-06 Yes Notes: [facility] [...] 0-13 25 mL, l (D50W) 03:18: Route: [place] 00 IVP, Drug Form: INJ, kg, PRN, PRN Blood Glucose Results, Start date: 04/10/22 22:18:00 CDT, Duration: 30 day, Stop date: 05/10/22 21:17:00 PRIZE FIGHTER, 0 glucagon 2021-06 Yes 1 mg, [facility] 0-13 Route: IM, l 03:18: Drug form: Man 00 PDR/INJ, PRN, kg, PRN Blood Glucose Results, Start date: 04/10/22 22:18:00 CDT, Duration: 30 day, Stop date: 05/10/22 21:17:00 PRIZE FIGHTER, 0 ondansetron 2021-06 Yes Notes: [facility] 0-13 (Same as: l 03:18: Zofran) MEDICATION WASTE Product Size: 4 mg Product Wasted: ___ mg melatonin 2021-06 Yes Notes: [facility] a 0-13 (Same as: l 03:18: Melatonin) acetaminoph 2021-06 Yes Notes: Do M emoria en 0-13 not exceed l 03:18: 4 gm/day. [place] (Same as: Tylenol) Dextrose 2021-06 Yes 12.5 gm, [facility] 50% Syringe 0-13 25 mL, l (D50W) 03:18: Route: Man 00 IVP, Drug Form: INJ, kg, PRN, PRN Blood Glucose Results, Start date: 04/10/22 22:18:00 CDT, Duration: 30 day, Stop date: 05/10/22 21:17:00 PRIZE FIGHTER, 0 glucagon 2021-06 Yes 1 mg, [facility] 0-13 Route: IM, l 03:18: Drug form: Man 00 PDR/INJ, PRN, kg, PRN Blood Glucose Results, Start date: 04/10/22 22:18:00 CDT, Duration: 30 day, Stop date: 05/10/22 21:17:00 PRIZE FIGHTER, 0 ondansetron 2021-06 Yes Notes: [facility] 0-13 (Same as: l 03:18: Zofran) Man MEDICATION WASTE Product Size: 4 mg Product Wasted: ___ mg melatonin 2021-06 Yes Notes: [facility] 0-13 (Same as: l 03:18: Melatonin) acetaminoph 2021-06 Yes Notes: Do M em[facility] en 0-13 not exceed l 03:18: 4 gm/day. [place] 00 (Same as: Tylenol) Dextrose 2021-06 Yes 12.5 gm, [facility] 50% Syringe 0-13 25 mL, l (D50W) 03:18: Route: Man 00 IVP, Drug Form: INJ, kg, PRN, PRN Blood Glucose Results, Start date: 04/10/22 22:18:00 CDT, Duration: 30 day, Stop date: 05/10/22 21:17:00 PRIZE FIGHTER, 0 glucagon 2021-06 Yes 1 mg, [facility] 0-13 Route: IM, l 03:18: Drug form: Man 00 PDR/INJ, PRN, kg, PRN Blood Glucose Results, Start date: 04/10/22 22:18:00 CDT, Duration: 30 day, Stop date: 05/10/22 21:17:00 PRIZE FIGHTER, 0 ondansetron 2021-06 Yes Notes: [facility] [...] 0-13 25 mL, l (D50W) 03:18: Route: [place] 00 IVP, Drug Form: INJ, kg, PRN, PRN Blood Glucose Results, Start date: 04/10/22 22:18:00 CDT, Duration: 30 day, Stop date: 05/10/22 21:17:00 PRIZE FIGHTER, 0 glucagon 2021-06 Yes 1 mg, [facility] 0-13 Route: IM, l 03:18: Drug form: Man 00 PDR/INJ, PRN, kg, PRN Blood Glucose Results, Start date: 04/10/22 22:18:00 CDT, Duration: 30 day, Stop date: 05/10/22 21:17:00 PRIZE FIGHTER, 0 ondansetron 2021-06 Yes Notes: [facility] [...] Duration: 30 day, Stop date: 05/10/22 21:17:00 PRIZE FIGHTER, 0 glucagon 2021-06 Yes 1 mg, [facility] 0-13 Route: IM, l 03:18: Drug form: [place] 00 PDR/INJ, PRN, kg, PRN Blood Glucose Results, Start date: 04/10/22 22:18:00 CDT, Duration: 30 day, Stop date: 05/10/22 21:17:00 PRIZE FIGHTER, 0 ondansetron 2021-06 Yes Notes: [facility] [...] 0-13 25 mL, l (D50W) 03:18: Route: [place] 00 IVP, Drug Form: INJ, kg, PRN, PRN Blood Glucose Results, Start date: 04/10/22 22:18:00 CDT, Duration: 30 day, Stop date: 05/10/22 21:17:00 PRIZE FIGHTER, 0 glucagon 2021-06 Yes 1 mg, [facility] 0-13 Route: IM, l 03:18: Drug form: [place] 00 PDR/INJ, PRN, kg, PRN Blood Glucose Results, Start date: 04/10/22 22:18:00 CDT, Duration: 30 day, Stop date: 05/10/22 21:17:00 PRIZE FIGHTER, 0 ondansetron 2021-06 Yes Notes: [facility] [...] Duration: 30 day, Stop date: 05/10/22 21:17:00 PRIZE FIGHTER, 0 glucagon 2021-06 Yes 1 mg, [facility] 0-13 Route: IM, l 03:18: Drug form: Man 00 PDR/INJ, PRN, kg, PRN Blood Glucose Results, Start date: 04/10/22 22:18:00 CDT, Duration: 30 day, Stop date: 05/10/22 21:17:00 PRIZE FIGHTER, 0 ondansetron 2021-06 Yes Notes: [facility] 0-13 (Same as: l 03:18: Zofran) [place] 00 MEDICATION WASTE Product Size: 4 mg [...] Duration: 30 day, Stop date: 05/10/22 21:17:00 PRIZE FIGHTER, 0 glucagon 2021-06 Yes 1 mg, [facility] 0-13 Route: IM, l 03:18: Drug form: Man 00 PDR/INJ, PRN, kg, PRN Blood Glucose Results, Start date: 04/10/22 22:18:00 CDT, Duration: 30 day, Stop date: 05/10/22 21:17:00 PRIZE FIGHTER, 0 ondansetron 2021-06 Yes Notes: [facility] [...] Duration: 30 day, Stop date: 05/10/22 21:17:00 PRIZE FIGHTER, 0 glucagon 2021-06 Yes 1 mg, [facility] 0-13 Route: IM, l 03:18: Drug form: Man 00 PDR/INJ, PRN, kg, PRN Blood Glucose Results, Start date: 04/10/22 22:18:00 CDT, Duration: 30 day, Stop date: 05/10/22 21:17:00 PRIZE FIGHTER, 0 ondansetron 2021-06 Yes Notes: [facility] [...] 0-13 25 mL, l (D50W) 03:18: Route: [place] 00 IVP, Drug Form: INJ, kg, PRN, PRN Blood Glucose Results, Start date: 04/10/22 22:18:00 CDT, Duration: 30 day, Stop date: 05/10/22 21:17:00 PRIZE FIGHTER, 0 glucagon 2021-06 Yes 1 mg, [facility] 0-13 Route: IM, l 03:18: Drug form: Man 00 PDR/INJ, PRN, kg, PRN Blood Glucose Results, Start date: 04/10/22 22:18:00 CDT, Duration: 30 day, Stop date: 05/10/22 21:17:00 PRIZE FIGHTER, 0 ondansetron 2021-06 Yes Notes: [facility] 0-13 (Same as: l 03:18: Zofran) MEDICATION WASTE Product Size: 4 mg Product Wasted: ___ mg melatonin 2021-06 Yes Notes: [facility] a 0-13 (Same as: l 03:18: Melatonin) [place] 00 acetaminoph 2021-06 Yes Notes: Do M emoria en 0-13 not exceed l 03:18: 4 gm/day. Man 00 (Same as: Tylenol) Dextrose 2021-06 Yes 12.5 gm, [facility] 50% Syringe 0-13 25 mL, l (D50W) 03:18: Route: [place] 00 IVP, Drug Form: INJ, kg, PRN, PRN Blood Glucose Results, Start date: 04/10/22 22:18:00 CDT, Duration: 30 day, Stop date: 05/10/22 21:17:00 PRIZE FIGHTER, 0 glucagon 2021-06 Yes 1 mg, [facility] 0-13 Route: IM, l 03:18: Drug form: [place] 00 PDR/INJ, PRN, kg, PRN Blood Glucose Results, Start date: 04/10/22 22:18:00 CDT, Duration: 30 day, Stop date: 05/10/22 21:17:00 PRIZE FIGHTER, 0 ondansetron 2021-06 Yes Notes: [facility] [...] 0-13 25 mL, l (D50W) 03:18: Route: [place] 00 IVP, Drug Form: INJ, kg, PRN, PRN Blood Glucose Results, Start date: 04/10/22 22:18:00 CDT, Duration: 30 day, Stop date: 05/10/22 21:17:00 PRIZE FIGHTER, 0 glucagon 2021-06 Yes 1 mg, [facility] 0-13 Route: IM, l 03:18: Drug form: Man 00 PDR/INJ, PRN, kg, PRN Blood Glucose Results, Start date: 04/10/22 22:18:00 CDT, Duration: 30 day, Stop date: 05/10/22 21:17:00 PRIZE FIGHTER, 0 ondansetron 2021-06 Yes Notes: [facility] [...] 0-13 25 mL, l (D50W) 03:18: Route: [place] 00 IVP, Drug Form: INJ, kg, PRN, PRN Blood Glucose Results, Start date: 04/10/22 22:18:00 CDT, Duration: 30 day, Stop date: 05/10/22 21:17:00 PRIZE FIGHTER, 0 glucagon 2021-06 Yes 1 mg, [facility] 0-13 Route: IM, l 03:18: Drug form: Man 00 PDR/INJ, PRN, kg, PRN Blood Glucose Results, Start date: 04/10/22 22:18:00 CDT, Duration: 30 day, Stop date: 05/10/22 21:17:00 PRIZE FIGHTER, 0 ondansetron 2021-06 Yes Notes: [facility] [...] 0-13 25 mL, l (D50W) 03:18: Route: [place] 00 IVP, Drug Form: INJ, kg, PRN, PRN Blood Glucose Results, Start date: 04/10/22 22:18:00 CDT, Duration: 30 day, Stop date: 05/10/22 21:17:00 PRIZE FIGHTER, 0 glucagon 2021-06 Yes 1 mg, [facility] 0-13 Route: IM, l 03:18: Drug form: [place] 00 PDR/INJ, PRN, kg, PRN Blood Glucose Results, Start date: 04/10/22 22:18:00 CDT, Duration: 30 day, Stop date: 05/10/22 21:17:00 PRIZE FIGHTER, 0 ondansetron 2021-06 Yes Notes: [facility] 0-13 (Same as: l 03:18: Zofran) MEDICATION WASTE Product Size: 4 mg Product Wasted: ___ mg melatonin 2021-06 Yes Notes: [facility] a 0-13 (Same as: l 03:18: Melatonin) acetaminoph 2021-06 Yes Notes: Do M emoria en 0-13 not exceed l 03:18: 4 gm/day. [place] 00 (Same as: Tylenol) Dextrose 2021-06 Yes 12.5 gm, [facility] 50% Syringe 0-13 25 mL, l (D50W) 03:18: Route: [place] 00 IVP, Drug Form: INJ, kg, PRN, PRN Blood Glucose Results, Start date: 04/10/22 22:18:00 CDT, Duration: 30 day, Stop date: 05/10/22 21:17:00 PRIZE FIGHTER, 0 glucagon 2021-06 Yes 1 mg, [facility] 0-13 Route: IM, l 03:18: Drug form: Man 00 PDR/INJ, PRN, kg, PRN Blood Glucose Results, Start date: 04/10/22 22:18:00 CDT, Duration: 30 day, Stop date: 05/10/22 21:17:00 PRIZE FIGHTER, 0 ondansetron 2021-06 Yes Notes: [facility] 0-13 (Same as: l 03:18: Zofran) [place] 00 MEDICATION WASTE Product Size: 4 mg Product Wasted: ___ mg melatonin 2021-06 Yes Notes: [facility] a 0-13 (Same as: l 03:18: Melatonin) [place] 00 acetaminoph 2021-06 Yes Notes: Do M emoria en 0-13 not exceed l 03:18: 4 gm/day. [place] 00 (Same as: Tylenol) Dextrose 2021-06 Yes 12.5 gm, [facility] 50% Syringe 0-13 25 mL, l (D50W) 03:18: Route: [place] 00 IVP, Drug Form: INJ, kg, PRN, PRN Blood Glucose Results, Start date: 04/10/22 22:18:00 CDT, Duration: 30 day, Stop date: 05/10/22 21:17:00 PRIZE FIGHTER, 0 glucagon 2021-06 Yes 1 mg, [facility] 0-13 Route: IM, l 03:18: Drug form: [place] 00 PDR/INJ, PRN, kg, PRN Blood Glucose Results, Start date: 04/10/22 22:18:00 CDT, Duration: 30 day, Stop date: 05/10/22 21:17:00 PRIZE FIGHTER, 0 ondansetron 2021-06 Yes Notes: [facility] 0-13 (Same as: l 03:18: Zofran) Man 00 MEDICATION WASTE Product Size: 4 mg Product Wasted: ___ mg melatonin 2021-06 Yes Notes: [facility] a 0-13 (Same as: l 03:18: Melatonin) Man 00 acetaminoph 2021-06 Yes Notes: Do M emoria en 0-13 not exceed l 03:18: 4 gm/day. [place] 00 (Same as: Tylenol) Dextrose 2021-06 Yes 12.5 gm, [facility] 50% Syringe 0-13 25 mL, l (D50W) 03:18: Route: [place] 00 IVP, Drug Form: INJ, kg, PRN, PRN Blood Glucose Results, Start date: 04/10/22 22:18:00 CDT, Duration: 30 day, Stop date: 05/10/22 21:17:00 PRIZE FIGHTER, 0 glucagon 2021-06 Yes 1 mg, [facility] 0-13 Route: IM, l 03:18: Drug form: Man 00 PDR/INJ, PRN, kg, PRN Blood Glucose Results, Start date: 04/10/22 22:18:00 CDT, Duration: 30 day, Stop date: 05/10/22 21:17:00 PRIZE FIGHTER, 0 ondansetron 2021-06 Yes Notes: [facility] [...] 0-13 25 mL, l (D50W) 03:18: Route: [place] 00 IVP, Drug Form: INJ, kg, PRN, PRN Blood Glucose Results, Start date: 04/10/22 22:18:00 CDT, Duration: 30 day, Stop date: 05/10/22 21:17:00 PRIZE FIGHTER, 0 glucagon 2021-06 Yes 1 mg, [facility] 0-13 Route: IM, l 03:18: Drug form: [place] PDR/INJ, PRN, kg, PRN Blood Glucose Results, Start date: 04/10/22 22:18:00 CDT, Duration: 30 day, Stop date: 05/10/22 21:17:00 PRIZE FIGHTER, 0 ondansetron 2021-06 Yes Notes: [facility] [...] Duration: 30 day, Stop date: 05/10/22 21:17:00 PRIZE FIGHTER, 0 glucagon 2021-06 Yes 1 mg, [facility] 0-13 Route: IM, l 03:18: Drug form: [place] 00 PDR/INJ, PRN, kg, PRN Blood Glucose Results, Start date: 04/10/22 22:18:00 CDT, Duration: 30 day, Stop date: 05/10/22 21:17:00 PRIZE FIGHTER, 0 ondansetron 2021-06 Yes Notes: [facility] [...] Duration: 30 day, Stop date: 05/10/22 21:17:00 PRIZE FIGHTER, 0 glucagon 2021-06 Yes 1 mg, [facility] 0-13 Route: IM, l 03:18: Drug form: [place] 00 PDR/INJ, PRN, kg, PRN Blood Glucose Results, Start date: 04/10/22 22:18:00 CDT, Duration: 30 day, Stop date: 05/10/22 21:17:00 PRIZE FIGHTER, 0 ondansetron 2021-06 Yes Notes: [facility] 0-13 (Same as: l 03:18: Zofran) [place] 00 MEDICATION WASTE Product Size: 4 mg Product Wasted: ___ mg melatonin 2021-06 Yes Notes: [facility] a 0-13 (Same as: l 03:18: Melatonin) [place] 00 acetaminoph 2021-06 Yes Notes: Do M emoria en 0-13 not exceed l 03:18: 4 gm/day. [place] 00 (Same as: Tylenol) Dextrose 2021-06 Yes 12.5 gm, [facility] 50% Syringe 0-13 25 mL, l (D50W) 03:18: Route: [place] 00 IVP, Drug Form: INJ, kg, PRN, PRN Blood Glucose Results, Start date: 04/10/22 22:18:00 CDT, Duration: 30 day, Stop date: 05/10/22 21:17:00 PRIZE FIGHTER, 0 glucagon 2021-06 Yes 1 mg, [facility] 0-13 Route: IM, l 03:18: Drug form: [place] 00 PDR/INJ, PRN, kg, PRN Blood Glucose Results, Start date: 04/10/22 22:18:00 CDT, Duration: 30 day, Stop date: 05/10/22 21:17:00 PRIZE FIGHTER, 0 ondansetron 2021-06 Yes Notes: [facility] 0-13 (Same as: l 03:18: Zofran) Man MEDICATION WASTE Product Size: 4 mg Product Wasted: ___ mg melatonin 2021-06 Yes Notes: [facility] a 0-13 (Same as: l 03:18: Melatonin) [place] 00 acetaminoph 2021-06 Yes Notes: Do M emoria en 0-13 not exceed l 03:18: 4 gm/day. Man 00 (Same as: Tylenol) Dextrose 2021-06 Yes 12.5 gm, [facility] 50% Syringe 0-13 25 mL, l (D50W) 03:18: Route: Man 00 IVP, Drug Form: INJ, kg, PRN, PRN Blood Glucose Results, Start date: 04/10/22 22:18:00 CDT, Duration: 30 day, Stop date: 05/10/22 21:17:00 PRIZE FIGHTER, 0 glucagon 2021-06 Yes 1 mg, [facility] 0-13 Route: IM, l 03:18: Drug form: [place] 00 PDR/INJ, PRN, kg, PRN Blood Glucose Results, Start date: 04/10/22 22:18:00 CDT, Duration: 30 day, Stop date: 05/10/22 21:17:00 PRIZE FIGHTER, 0 ondansetron 2021-06 Yes Notes: [facility] [...] 0-13 25 mL, l (D50W) 03:18: Route: [place] IVP, Drug Form: INJ, kg, PRN, PRN Blood Glucose Results, Start date: 04/10/22 22:18:00 CDT, Duration: 30 day, Stop date: 05/10/22 21:17:00 PRIZE FIGHTER, 0 glucagon 2021-06 Yes 1 mg, [facility] 0-13 Route: IM, l 03:18: Drug form: Man 00 PDR/INJ, PRN, kg, PRN Blood Glucose Results, Start date: 04/10/22 22:18:00 CDT, Duration: 30 day, Stop date: 05/10/22 21:17:00 PRIZE FIGHTER, 0 ondansetron 2021-06 Yes Notes: [facility] al[facility] [...] Duration: 30 day, Stop date: 05/10/22 21:17:00 PRIZE FIGHTER, 0 glucagon 2021-06 Yes 1 mg, [facility] 0-13 Route: IM, l 03:18: Drug form: [place] 00 PDR/INJ, PRN, kg, PRN Blood Glucose Results, Start date: 04/10/22 22:18:00 CDT, Duration: 30 day, Stop date: 05/10/22 21:17:00 PRIZE FIGHTER, 0 ondansetron 2021-06 Yes Notes: [facility] al[facility] [...] Duration: 30 day, Stop date: 05/10/22 21:17:00 PRIZE FIGHTER, 0 glucagon 2021-06 Yes 1 mg, [facility] 0-13 Route: IM, l 03:18: Drug form: [place] 00 PDR/INJ, PRN, kg, PRN Blood Glucose Results, Start date: 04/10/22 22:18:00 CDT, Duration: 30 day, Stop date: 05/10/22 21:17:00 PRIZE FIGHTER, 0 ondansetron 2021-06 Yes Notes: [facility] 0-13 (Same as: l 03:18: Zofran) [place] 00 MEDICATION WASTE Product Size: 4 mg Product Wasted: ___ mg melatonin 2021-06 Yes Notes: [facility] a 0-13 (Same as: l 03:18: Melatonin) acetaminoph 2021-06 Yes Notes: Do M emoria en 0-13 not exceed l 03:18: 4 gm/day. [place] 00 (Same as: Tylenol) Dextrose 2021-06 Yes 12.5 gm, [facility] 50% Syringe 0-13 25 mL, l (D50W) 03:18: Route: [place] 00 IVP, Drug Form: INJ, kg, PRN, PRN Blood Glucose Results, Start date: 04/10/22 22:18:00 CDT, Duration: 30 day, Stop date: 05/10/22 21:17:00 PRIZE FIGHTER, 0 glucagon 2021-06 Yes 1 mg, [facility] 0-13 Route: IM, l 03:18: Drug form: Man 00 PDR/INJ, PRN, kg, PRN Blood Glucose Results, Start date: 04/10/22 22:18:00 CDT, Duration: 30 day, Stop date: 05/10/22 21:17:00 PRIZE FIGHTER, 0 ondansetron 2021-06 Yes Notes: [facility] al[facility] [...] 0-13 25 mL, l (D50W) 03:18: Route: [place] 00 IVP, Drug Form: INJ, kg, PRN, PRN Blood Glucose Results, Start date: 04/10/22 22:18:00 CDT, Duration: 30 day, Stop date: 05/10/22 21:17:00 PRIZE FIGHTER, 0 Dextrose 2021-06 Yes 12.5 gm, [facility] 50% Syringe 0-13 25 mL, l (D50W) 03:18: Route: [place] 00 IVP, Drug Form: INJ, kg, PRN, PRN Blood Glucose Results, Start date: 04/10/22 22:18:00 CDT, Duration: 30 day, Stop date: 05/10/22 21:17:00 PRIZE FIGHTER, 0 glucagon 2021-06 Yes 1 mg, [facility] 0-13 Route: IM, l 03:18: Drug form: Man PDR/INJ, PRN, kg, PRN Blood Glucose Results, Start date: 04/10/22 22:18:00 CDT, Duration: 30 day, Stop date: 05/10/22 21:17:00 PRIZE FIGHTER, 0 ondansetron 2021-06 Yes Notes: [facility] 0-13 (Same as: l 03:18: Zofran) MEDICATION WASTE Product Size: 4 mg Product Wasted: ___ mg melatonin 2021-06 Yes Notes: [facility] a 0-13 (Same as: l 03:18: Melatonin) benzonatate Yes [id number] 100mg Take 1 [facility] 100 mg 7-26 capsule by ity of capsule 00:00: mouth 3 [place] 00 (three) Medical times Branch daily as needed for Cough. benzonatate Yes [id number] 100mg Take 1 [facility] 100 mg 7-26 capsule by ity of capsule 00:00: mouth 3 [place] 00 (three) Medical times Branch daily as needed for Cough. benzonatate 0 2021- No [id number] 100mg Take 1 [facility] 100 mg 7-26 [...] needed. Medical ORAL) Branch erythromyci 2020-06- No [id number] .5[in_u Place 0.5 [facility] n 5 mg/gram 07-18 12-04 s] Inches in it y of (0.5 %) 00:00: 05:59 [place] ophthalmic 00 :00 4 (four) Medic al ointment times Branch daily for 14 days. erythromyci 2020-06- No [id number] .5[in_u Place 0.5 [facility] n 5 mg/gram [...] 44 needed. Medical ORAL) Branch traMADOL 50 Yes [...] 00:00: mouth [place] [facility] 100 mg 2-16 capsule by ity of capsule 00:00: mouth [place] [facility] 100mg Take 1 [facility] rs 100 mg 2-16 -17 capsule by ity of capsule 00:00: 00:00 mouth [place] 00 :[facility]. [facility] Take 1 [facility] 100 mg 2-16 -17 capsule by ity of capsule 00:00: 00:00 [...] DAILY AT DAILY AT MOUTH ONCE O [facility] BEDTIME BEDTIME DAILY AT h BEDTIME Program [...] DAILY AT DAILY AT MOUTH ONCE O [facility] BEDTIME BEDTIME DAILY AT h BEDTIME Program [...] da tablet TAKE tablet TAKE tablet [facility] /2 /2 TAKE 1/2 al (ONE-HALF) (ONE-HALF) (ONE-HALF) [...] Immunizations Ordered Filled Immunization Date Status Comments [facility] e Immunization Name Name zoster recombinant zoster recombinant 2022-07-19 Completed [place] - ML - ML 00:00:00 [facility] zoster recombinant zoster recombinant 2022-07-19 Completed [place] - ML - ML 00:00:00 [facility] zoster recombinant zoster recombinant 2022-07-19 Completed [place] - ML - ML 00:00:00 [facility] zoster recombinant zoster recombinant 2022-07-19 Completed [place] - ML - ML 00:00:00 [facility] COVID-19 vaccine, COVID-19 vaccine, 2021-06-26 Completed [place] vector-nr, rS-Ad26, vector-nr, rS-Ad26, 00:00:00 [facility] PF, 0.5 mL PF, 0.5 mL Outreach Progr am ([facility] [place]) - ML ([facility]) - ML COVID-19 vaccine, COVID-19 vaccine, 2021-06-26 Completed [place] vector-nr, rS-Ad26, vector-nr, rS-Ad26, 00:00:00 [facility] PF, 0.5 mL PF, 0.5 mL Outreach [facility]gr [facility] ([facility]) - ML ([facility]) - ML COVID-19 vaccine, COVID-19 vaccine, 2021-06-26 Completed [place] vector-nr, rS-Ad26, vector-nr, rS-Ad26, 00:00:00 [facility] PF, 0.5 mL PF, 0.5 mL Outreach [facility]gr [facility] ([facility]) - ML ([facility]) - ML COVID-19 vaccine, COVID-19 vaccine, 2021-06-26 Completed [place] vector-nr, rS-Ad26, vector-nr, rS-Ad26, 00:00:00 [facility] PF, 0.5 mL PF, 0.5 mL Outreach Progr [facility] ([facility]) - ML ([facility]) - ML Tdap Tdap 2020-05-18 Completed [place] 09:21:00 [facility] Tdap Tdap 2020-05-18 Completed [place] 09:21:00 [facility] Tdap Tdap 2020-05-18 Completed [place] 09:21:00 [facility] Tdap Tdap 2020-05-18 Completed [place] 09:21:00 [facility] Tdap Tdap 2020-05-18 Completed [place] 09:21:00 [facility] Tdap Tdap 2020-05-18 Completed [place] 09:21:00 [facility] TDAP 2016-01-02 Completed [facility] 00:00:00 [facility] [place] TDAP 2016-01-02 Completed [facility] 00:00:00 [facility] [place] TDAP 2016-01-02 Completed [facility] 00:00:00 [facility] [place] TDAP 2016-01-02 Completed [facility] 00:00:00 [facility] [place] TDAP 2016-01-02 Completed [facility] 00:00:00 [facility] [place] TDAP 2016-01-02 Completed [facility] 00:00:00 [facility] [place] TDAP 2016-01-02 Completed [facility] 00:00:00 [facility] [place] TDAP 2016-01-02 Completed [facility] 00:00:00 [facility] [place] TDAP 2016-01-02 Completed [facility] 00:00:00 [facility] [place] TDAP 2016-01-02 Completed [facility] 00:00:00 [facility] [place] TDAP 2016-01-02 Completed [facility] 00:00:00 [facility] [place] TDAP 2016-01-02 Completed [facility] 00:00:00 [facility] [place] TDAP 2016-01-02 Completed [facility] 00:00:00 [facility] [place] TDAP 2016-01-02 Completed [facility] 00:00:00 [facility] [place] TDAP 2016-01-02 Completed [facility] 00:00:00 [facility] [place] TDAP 2016-01-02 Completed [facility] 00:00:00 [facility] [place] TDAP 2016-01-02 Completed [facility] 00:00:00 [facility] [place] TDAP 2016-01-02 Completed [facility] 00:00:00 [facility] [place] TDAP 2016-01-02 Completed [facility] 00:00:00 [facility] [place] TDAP 2016-01-02 Completed [facility] 00:00:00 [facility] [place] TDAP 2016-01-02 Completed [facility] 00:00:00 [facility] [place] TDAP 2016-01-02 Completed [facility] 00:00:00 [facility] [place] TDAP 2016-01-02 Completed [facility] 00:00:00 [facility] [place] TDAP 2016-01-02 Completed [facility] 00:00:00 [facility] [place] Vital Signs Vital Name Observation Time Observation Value Comments Source Height 2022-10-17 22:58:00 162.56 CM Weight 2022-10-17 22:58:00 79.37 KG Height 2022-10-15 00:00:00 63 [in_i] [place] [facility] BMI (Body Mass 2022-10-15 00:00:00 30.3 kg/m2 [place] sequ[place] stringer Index) [facility] Body Weight 2022-10-15 00:00:00 171.06 [lb_av] [place] [facility] BP Diastolic 2022-10-01 00:00:00 77 mm[Hg] [place] [facility] Height 2022-10-01 00:00:00 63 [in_i] [place] [facility] BMI (Body Mass 2022-10-01 00:00:00 30.3 kg/m2 [facility] sequins stringer Index) [facility] BP Systolic 2022-10-01 00:00:00 127 mm[Hg] [place] [facility] Body Weight 2022-10-01 00:00:00 2737 [oz_av] [place] [facility] BP Diastolic 2022-09-23 00:00:00 85 mm[Hg] [place] [facility] Height 2022-09-23 00:00:00 63 [in_i] [place] [facility] BMI (Body Mass 2022-09-23 00:00:00 31.4 kg/m2 [facility] sequins stringer Index) [facility] BP Systolic 2022-09-23 00:00:00 133 mm[Hg] [place] [facility] Body Weight 2022-09-23 00:00:00 2832 [oz_av] [place] [facility] Systolic blood 2022-09-04 18:03:00 116 mm[Hg] [facility] of pressure [facility] Diastolic blood 2022-09-04 18:03:00 80 mm[Hg] Unive rsity of pressure [facility] Heart rate 2022-09-04 18:03:00 94 /min [facility] Body height 2022-09-04 18:03:00 162.6 cm [facility] Body weight 2022-09-04 18:03:00 78.926 kg [facility] BMI 2022-09-04 18:03:00 29.87 kg/m2 [facility] BP Diastolic 2022-08-26 00:00:00 77 mm[Hg] [place] [facility] Height 2022-08-26 00:00:00 63 [in_i] [place] [facility] BMI (Body Mass 2022-08-26 00:00:00 30.7 kg/m2 [facility] sequins stringer Index) [facility] BP Systolic 2022-08-26 00:00:00 124 mm[Hg] [place] [facility] Body Weight 2022-08-26 00:00:00 2773 [oz_av] [place] [facility] Systolic blood 2022-08-20 18:08:00 117 mm[Hg] Univer sity of pressure [facility] Diastolic blood 2022-08-20 18:08:00 61 mm[Hg] Unive rsity of pressure [facility] [place] Heart rate 2022-08-20 18:08:00 83 /min Universi ty [facility] Body temperature 2022-08-20 18:08:00 36.11 Leatha Univ ersity of [facility] Respiratory rate 2022-08-20 18:08:00 18 /min Univ ersity of [facility] Oxygen saturation in 2022-08-20 18:08:00 98 /min University of Arterial blood by [employer] Pulse oximetry Branch Body height 2022-08-19 19:23:[address] [facility] [place] Body weight 2022-08-19 19:23:00 73.483 kg [facility] BMI 2022-08-19 19:23:00 27.81 kg/m2 [facility] Branch Systolic blood 2022-06-04 22:00:00 127 mm[Hg] Univer sity of pressure [facility] Diastolic blood 2022-06-04 22:00:00 70 mm[Hg] Unive rsity of pressure [facility] Heart rate 2022-06-04 22:00:00 75 /min [facility]i ty [facility] Respiratory rate 2022-06-04 22:00:00 17 /min Univ ersity of [facility] Oxygen saturation in 2022-06-04 22:00:00 97 /min University of Arterial blood by [employer] Pulse oximetry Branch Body temperature 2022-06-04 21:26:00 36.67 Leatha [facility] Body weight 2022-06-04 16:37:00 76.204 kg [facility] BMI 2022-06-04 16:37:00 28.84 kg/m2 [facility] BP Diastolic 2022-05-20 00:00:00 67 mm[Hg] [place] [facility] Height 2022-05-20 00:00:00 63 [in_i] [place] [facility] BMI (Body Mass 2022-05-20 00:00:00 28.5 kg/m2 [facility] sequins stringer Index) [facility] BP Systolic 2022-05-20 00:00:00 119 mm[Hg] [place] [facility] Body Weight 2022-05-20 00:00:00 2578 [oz_av] [place] [facility] Height 2022-04-10 11:53:00 165.1 CM Weight 2022-04-10 11:53:00 72.57 KG BP Diastolic 2022-03-14 00:00:00 84 mm[Hg] [place] [facility] Height 2022-03-14 00:00:00 63 [in_i] [place] [facility] BMI (Body Mass 2022-03-14 00:00:00 29.8 kg/m2 [facility] sequins stringer Index) [facility] BP Systolic 2022-03-14 00:00:00 131 mm[Hg] [place] [facility] Body Weight 2022-03-14 00:00:00 2688 [oz_av] [place] [facility] Height 2022-02-13 14:52:00 162.56 CM Weight 2022-02-13 14:52:00 79.37 KG Systolic blood 2022-01-22 17:15:59 121 mm[Hg] Univer sity of pressure [facility] Diastolic blood 2022-01-22 17:15:59 79 mm[Hg] Unive rsity of pressure [facility] [place] Heart rate 2022-01-22 17:15:59 81 /min [facility]i ty [facility] Respiratory rate 2022-01-22 17:15:59 18 /min Univ ersity of [facility] Oxygen saturation in 2022-01-22 17:15:59 98 /min University of Arterial blood by [facility] Pulse oximetry Branch Body temperature 2022-01-22 14:17:00 36.72 Leatha Univ ersity of [facility] Systolic blood 2022-01-09 16:30:00 135 mm[Hg] Univer sity of pressure [facility] Branch Diastolic blood 2022-01-09 16:30:00 86 mm[Hg] Unive rsity of pressure [facility] Heart rate 2022-01-09 16:30:00 88 /min [facility]i [facility] [place] Body temperature 2022-01-09 16:30:00 36.28 Leatha Univ ersity of [facility] Respiratory rate 2022-01-09 16:30:00 18 /min [facility] ersity of [facility] Body height 2022-01-09 16:30:00 162.6 cm Universi ty [facility] [place] Body weight 2022-01-09 16:30:00 77.111 kg Universi ty of [facility] BMI 2022-01-09 16:30:00 29.18 kg/m2 Universi ty [facility] Oxygen saturation in 2022-01-09 16:30:00 97 /min University of Arterial blood by [facility] Pulse oximetry Branch BP Diastolic 2021-12-20 00:00:00 92 mm[Hg] [facility] [facility] Height 2021-12-20 00:00:00 63 [in_i] [place] [facility] BMI (Body Mass 2021-12-20 00:00:00 31.2 kg/m2 [facility] sequins stringer Index) [facility] BP Systolic 2021-12-20 00:00:00 136 mm[Hg] [place] [facility] Body Weight 2021-12-20 00:00:00 2816 [oz_av] [place] [facility] BP Diastolic 2021-09-27 00:00:00 83 mm[Hg] [place] [facility] Height 2021-09-27 00:00:00 63 [in_i] [place] [facility] BMI (Body Mass 2021-09-27 00:00:00 31.9 kg/m2 [facility] sequins stringer Index) [facility] BP Systolic 2021-09-27 00:00:00 143 mm[Hg] [place] [facility] Body Weight 2021-09-27 00:00:00 180 [lb_av] [place] [facility] BP Diastolic 2021-09-20 00:00:00 75 mm[Hg] [place] [facility] Height 2021-09-20 00:00:00 63 [in_i] [place] [facility] BMI (Body Mass 2021-09-20 00:00:00 32.2 kg/m2 [facility] sequins stringer Index) [facility] BP Systolic 2021-09-20 00:00:00 125 mm[Hg] [place] [facility] Body Weight 2021-09-20 00:00:00 2912 [oz_av] [place] [facility] BP Diastolic 2021-09-06 00:00:00 87 mm[Hg] [place] [facility] Height 2021-09-06 00:00:00 63 [in_i] [place] [facility] BMI (Body Mass 2021-09-06 00:00:00 32.4 kg/m2 [facility] sequins stringer Index) [facility] BP Systolic 2021-09-06 00:00:00 140 mm[Hg] [place] [facility] Body Weight 2021-09-06 00:00:00 183 [lb_av] [place] [facility] BP Diastolic 2021-08-09 00:00:00 80 mm[Hg] [place] [facility] Height 2021-08-09 00:00:00 63 [in_i] [place] [facility] BMI (Body Mass 2021-08-09 00:00:00 32.8 kg/m2 [facility] sequins stringer Index) [facility] BP Systolic 2021-08-09 00:00:00 125 mm[Hg] [place] [facility] Body Weight 2021-08-09 00:00:00 2960 [oz_av] [place] [facility] Height 2021-07-05 00:00:00 63 [in_i] [place] [facility] BMI (Body Mass 2021-07-05 00:00:00 34.2 kg/m2 [facility] sequins stringer Index) [facility] Body Weight 2021-07-05 00:00:00 3088 [oz_av] [place] [facility] Body weight 2021-05-18 21:33:00 81.647 kg [facility] BMI 2021-05-18 21:33:00 30.90 kg/m2 [facility] Height 2021-03-13 14:25:00 162.56 CM Weight 2021-03-13 14:25:00 81.64 KG Height 2020-07-16 13:58:00 162.56 CM Weight 2020-07-16 13:58:00 79.37 KG BP Diastolic 2020-05-18 00:00:00 84 mm[Hg] [place] [facility] Height 2020-05-18 00:00:00 63 [in_i] [place] [facility] BMI (Body Mass 2020-05-18 00:00:00 34.2 kg/m2 [facility] sequins stringer Index) [facility] BP Systolic 2020-05-18 00:00:00 132 mm[Hg] [place] [facility] Body Weight 2020-05-18 00:00:00 193.3 [lb_av] [place] [facility] BP Diastolic 2020-05-11 00:00:00 84 mm[Hg] [place] [facility] Height 2020-05-11 00:00:00 63 [in_i] [place] [facility] BMI (Body Mass 2020-05-11 00:00:00 34 kg/m2 [facility] sequins stringer Index) [facility] BP Systolic 2020-05-11 00:00:00 129 mm[Hg] [place] [facility] Body Weight 2020-05-11 00:00:00 191.8 [lb_av] [place] [facility] Weight 2020-05-01 14:58:00 83.91 KG Height 2020-05-01 14:58:00 162.56 CM Systolic blood 2022-08-20 18:08:00 117 mm[Hg] Univer sity of pressure [facility] Diastolic blood 2022-08-20 18:08:00 61 mm[Hg] Unive rsity of pressure [facility] Heart rate 2022-08-20 18:08:00 83 /min [facility] Body temperature 2022-08-20 18:08:00 36.11 Leatha [facility] rate 2022-08-20 18:08:00 18 /min [facility] Oxygen saturation in 2022-08-20 18:08:00 98 /min [facility] Arterial blood by [facility] Pulse oximetry [place] Body height 2022-08-19 19:23:00 162.6 cm [facility] Body weight 2022-08-19 19:23:00 73.483 kg [facility] BMI 2022-08-19 19:23:00 27.81 kg/m2 [facility] Heart Rate 2022-04-24 20:46:49 Leah Conway Systolic (mm Hg) 2022-04-24 20:46:25 [facility] [facility] [place] Diastolic (mm Hg) 2022-04-24 20:46:25 Mem o[facility] [place] Temperature Oral (F) 2022-04-24 20:46:05 98.4 F [facility] [place] Temperature Oral (F) 2022-04-20 09:04:53 97.4 F [facility] Heart Rate 2022-04-15 08:42:11 [facility] Temperature Oral (F) 2022-04-15 08:41:54 98.2 F [facility] Systolic (mm Hg) 2022-04-15 08:41:36 [facility] Diastolic (mm Hg) 2022-04-15 08:41:36 Mem [facility] Heart Rate 2022-04-15 08:41:36 [facility] Heart Rate 2022-04-15 03:56:06 [facility] Systolic (mm Hg) 2022-04-15 03:56:01 [facility] [place] Diastolic (mm Hg) 2022-04-15 03:56:01 Mem orial [place] Temperature Oral (F) 2022-04-15 03:55:44 98.4 F [facility] Systolic (mm Hg) 2022-04-15 00:15:48 [facility] Diastolic (mm Hg) 2022-04-15 00:15:48 Mem [facility] [place] Temperature Oral (F) 2022-04-15 00:15:09 98.2 F [facility] Respitory Rate 2022-04-14 21:52:24 [facility] Respitory Rate 2022-04-14 16:25:34 [facility] Respitory Rate 2022-04-14 12:59:58 [facility] Height 2022-04-11 03:50:00 5 [ft_i] [facility] Weight 2022-04-11 03:50:00 [facility] BMI Calculated 2022-04-11 03:50:00 [facility] [place] Systolic blood 2022-01-09 16:30:00 135 mm[Hg] Univer sity of pressure [facility] Diastolic blood 2022-01-09 16:30:00 86 mm[Hg] Unive rsity of pressure [facility] Heart rate 2022-01-09 16:30:00 88 /min [facility] Body temperature 2022-01-09 16:30:00 36.28 Leatha [facility] Respiratory rate 2022-01-09 16:30:00 18 /min [facility] Body height 2022-01-09 16:30:00 162.6 cm [facility] Body weight 2022-01-09 16:30:00 77.111 kg [facility] BMI 2022-01-09 16:30:00 29.18 kg/m2 [facility] Oxygen saturation in 2022-01-09 16:30:00 97 /min [facility] Arterial blood by [facility] Pulse oximetry Branch Procedures Procedure Date / Time Performing Source Performed Clinician REFERRAL- REQUEST/RESPONSE 2022-10-14 Doctor [place]ton rsity of 05:01:00 Unassigned, No [facility] MAMMO, screening, digital, 2022-10-01 [place] bilateral 00:00:00 [facility] REFERRAL- REQUEST/RESPONSE 2022-09-25 Doctor [place]ton rsity of 05:01:00 Unassigned, No [facility] EXTERNAL PROVIDER RECORDS 2022-08-29 Doctor Sky sity of 06:01:00 Unassigned, No [facility] MAGNESIUM 2022-08-20 Rula Clark Em[place]ak of 11:29:00 [facility] BASIC METABOLIC PANEL (NA, K, CL, 2022-08-20 Rula Clark Emmonak of CO2, GLUCOSE, BUN, CREATININE, CA) 11:29:00 [facility] CBC WITH DIFF 2022-08-20 Rula Clark Em[place]ak of 11:29:00 [facility] CBC WITH DIFF 2022-08-20 Rula Clark Em[place]ak of 11:29:00 [facility] BASIC METABOLIC PANEL (NA, K, CL, 2022-08-20 Rula Clark Emmonak of CO2, GLUCOSE, BUN, CREATININE, CA) 11:29:00 [facility] MAGNESIUM 2022-08-20 Rula Clark Em[place]ak of 11:29:00 [facility] IR SPINAL LUMBAR PUNCTURE 2022-08-19 Rula Clark [facility] sity of DIAGNOSTIC 22:16:35 [facility] IR SPINAL LUMBAR PUNCTURE 2022-08-19 ClarkRula amezquitaer sity of DIAGNOSTIC 22:16:35 [facility] CEREBROSPINAL FLUID PROTEIN 2022-08-19 Rula Clark Univ ersity of 21:57:00 [facility] CEREBROSPINAL FLUID GLUCOSE 2022-08-19 Eduardo Rula Univ ersity of 21:57:00 [facility] BODY FLUID DIRECT COUNT 2022-08-19 Rula Clark Universi ty of 21:57:00 [facility] FLOW CYTOMETRY IMMUNOPHENOTYP 2022-08-19 Rula Clark Un iversity of 21:57:00 [facility] FUNGUS (ROUTINE) CULTURE 2022-08-19 Rula Clark Univers ity of 21:57:00 [facility] CSF CULTURE 2022-08-19 Rula Clark University of 21:57:00 [facility] BODY FLUID MANUAL DIFF 2022-08-19 Rula Clark Universit y of 21:57:00 [facility] CEREBROSPINAL FLUID GLUCOSE 2022-08-19 Eduardo Rula Univ ersity of 21:57:00 [facility] CEREBROSPINAL FLUID PROTEIN 2022-08-19 Eduardo Rula Univ ersity of 21:57:00 [facility] FUNGUS (ROUTINE) CULTURE 2022-08-19 Rula Clark Univers ity of 21:57:00 [facility] FLOW CYTOMETRY IMMUNOPHENOTYP 2022-08-19 Rula Clark Un iversity of 21:57:00 [facility] CSF CULTURE 2022-08-19 Rula Clark University of 21:57:00 [facility] TRANSTHORACIC ECHO (TTE) COMPLETE 2022-08-19 Prachi [facility] of W/ CONTRAST 16:06:35 [facility] TRANSTHORACIC ECHO (TTE) COMPLETE 2022-08-19 Prachi [facility] of W/ CONTRAST 16:06:35 [facility] BASIC METABOLIC PANEL (NA, K, CL, 2022-08-19 Yung Rojas of CO2, GLUCOSE, BUN, CREATININE, CA) 10:40:00 [facility] CBC WITH DIFF 2022-08-19 Yung Rojas of 10:40:00 [facility] PROTHROMBIN TIME / INR 2022-08-19 Yung Rojas y of 10:40:00 [facility] PROTHROMBIN TIME / INR 2022-08-19 Yung Rojas y of 10:40:00 [facility] BASIC METABOLIC PANEL (NA, K, CL, 2022-08-19 Yung Rojas University of CO2, GLUCOSE, BUN, CREATININE, CA) 10:40:00 [facility] CBC WITH DIFF 2022-08-19 Yung Rojas of 10:40:[address] [facility] [address] ANGIOGRAM HEAD 2022-08-18 [facility] o f 23:22:[address] [facility] CT ANGIOGRAM NECK 2022-08-18 [facility] o f 23:22:[address] [facility] CT ANGIOGRAM HEAD 2022-08-18 [facility] o f 23:22:[address] [facility] CT ANGIOGRAM NECK 2022-08-18 [facility] o f 23:22:08 [facility] MR CERVICAL SPINE W WO CONTRAST 2022-08-18 Rula Clark Emmonak of 16:56:06 [facility] MR CERVICAL SPINE W WO CONTRAST 2022-08-18 Rula Clark [place] of 16:56:06 [facility] MR BRAIN W WO CONTRAST 2022-08-18 Eduardo, Rula Universit y of 16:46:57 [facility] MR BRAIN W WO CONTRAST 2022-08-18 Eduardo, Rula Universit y of 16:46:57 [facility] MAGNESIUM 2022-08-18 Rula Clark Em[place]ak of 10:20:00 [facility] BASIC METABOLIC PANEL (NA, K, CL, 2022-08-18 Rula Clark University of CO2, GLUCOSE, BUN, CREATININE, CA) 10:20:00 [facility] CBC WITH DIFF 2022-08-18 Rula Clark University of 10:20:00 [facility] GLYCOSYLATED HEMOGLOBIN (A1C) 2022-08-18 [facility] 10:20[facility]00 [facility] CBC WITH DIFF 2022-08-18 Rula Clark [place] of 10:20:00 [facility] BASIC METABOLIC PANEL (NA, K, CL, 2022-08-18 Eduardo Rulalivia Parrish of CO2, GLUCOSE, BUN, CREATININE, CA) 10:20:00 [facility] MAGNESIUM 2022-08-18 Rula Clark Em[place]ak of 10:20:00 [facility] GLYCOSYLATED HEMOGLOBIN (A1C) 2022-08-18 Yung Rojas iversity of 10:20:[address] [facility] [address] VENOGRAM CHEST 2022-08-17 Prachi, [facility] of 13:11:[address] [facility] [address] VENOGRAM CHEST 2022-08-17 Prachi, [facility] of 13:11:40 [facility] LACTATE DEHYDROGENASE 2022-08-17 Prachi, [facility] of 09:28:00 [facility] MAGNESIUM 2022-08-17 Prachi, [facility] of 09:28:00 [facility] VITAMIN B12, LEVEL 2022-08-17 [facility] FOLATE 2022-08-17 Clark, [facility] of 09:28:00 [facility] BASIC METABOLIC PANEL (NA, K, CL, 2022-08-17 Prachi, [facility] of CO2, GLUCOSE, BUN, CREATININE, CA) 09:28:00 [facility] CBC WITHOUT DIFF 2022-08-17 , [facility] of 09:28:00 [facility] PROTHROMBIN TIME / INR 2022-08-17 Prachi, [facility] y of 09:28:00 [facility] ACTIVATED PARTIAL THRMPLAS CLAIRE 2022-08-17 Prachi, [facility] niversity of 09:28:00 [facility] LACTATE DEHYDROGENASE 2022-08-17 Prachi, [facility] of :28:00 [facility] PROTHROMBIN TIME / INR 2022-08-17 Prachi, [facility] y of 09:28:00 [facility] ACTIVATED PARTIAL THRMPLAS CLAIRE 2022-08-17 Prachi, [facility] niversity of :28:00 [facility] BASIC METABOLIC PANEL (NA, K, CL, 2022-08-17 Prachi, [facility] of CO2, GLUCOSE, BUN, CREATININE, CA) 09:28:00 [facility] MAGNESIUM 2022-08-17 Prachi, [facility] of 09:28:00 [facility] CBC WITHOUT DIFF 2022-08-17 , [facility] of 09:28:00 [facility] VITAMIN B12, LEVEL 2022-08-17 Eduardo [facility] of 09:28:00 [facility] FOLATE 2022-08-17 Eduardo [facility] of 09:28:00 [facility] XR CHEST 1 VW 2022-08-17 Prachi, [facility] of 01:41:00 [facility] XR KUB 2022-08-17 Prachi, [facility] of 01:41:00 [facility] XR CHEST 1 VW 2022-08-17 Prachi, [facility] of 01:41:00 [facility] XR KUB 2022-08-17 Prachi, [facility] of 01:41:00 [facility] PHOSPHORUS 2022-08-17 Prachi, [facility] of 00:22:00 [facility] URIC ACID 2022-08-17 Prachi, [facility] of 00:22:00 [facility] MAGNESIUM 2022-08-17 Prachi, [facility] of 00:22:00 [facility] COMP. METABOLIC PANEL ([id number]) 2022-08-17 Prachi, [facility] iversity of 00:22:00 [facility] CBC WITH DIFF 2022-08-17 Prachi, [facility] of 00:22:00 [facility] COVID-19 (ID NOW RAPID TESTING) 2022-08-17 Prachi, [facility] of 00:22:00 [facility] LAB ONLY COVID INTERPRETATION 2022-08-17 , [facility] iversity of 00:22:00 [facility] COVID-19 (ID NOW RAPID TESTING) 2022-08-17 Prachi, [facility] of 00:22:00 [facility] URIC ACID 2022-08-17 Prachi, [facility] of 00:22:00 [facility] CBC WITH DIFF 2022-08-17 , [facility] of 00:22:00 [facility] COMP. METABOLIC PANEL ([id number]) 2022-08-17 Prachi, [facility] Un iversity of 00:22:00 [facility] PHOSPHORUS 2022-08-17 Prachi, [facility] of 00:22:00 [facility] MAGNESIUM 2022-08-17 Prachi, [facility] of 00:22:00 [facility] LAB ONLY COVID INTERPRETATION 2022-08-17 Prachi, [facility] Un iversity of 00:22:00 [facility] HOSPITAL ADMISSION 2022-08-16 [facility] of 06:01:00 Unassigned, No [facility] EKG-12 LEAD 2022-06-04 Luis Huang of 22:15:[address] [facility] [address] CHEST PULMONARY ANGIOGRAM 2022-06-04 [place], [place] [facility] of 20:01:[address] [facility] [address] CHEST PULMONARY ANGIOGRAM 2022-06-04 [facility], [place] [facility] of 20:01:00 [facility] TROPONIN I 2022-06-04 [facility], [facility] of 16:56:00 [facility] COMP. METABOLIC PANEL ([id number]) 2022-06-04 josue, [facility] of 16:56:00 [facility] CBC WITH DIFF 2022-06-04 [facility], [facility] of 16:56:00 [facility] PROTHROMBIN TIME / INR 2022-06-04 [facility], [facility] ity of 16:56:00 [facility] ACTIVATED PARTIAL THRMPLAS CLAIRE 2022-06-04 [facility], [facility] of 16:56:00 [facility] GALV ONLY - INFLUENZA A B RSV PCR 2022-06-04 [facility], [facility] of 16:56:00 [facility] N-TERMINAL PRO-BNP 2022-06-04 josue, [facility] of 16:56:00 [facility] COVID-19 (ID NOW RAPID TESTING) 2022-06-04 [facility], [facility] of 16:56:00 [facility] COVID-19 (ID NOW RAPID TESTING) 2022-06-04 [facility], [facility] of 16:56:00 [facility] GALV ONLY - INFLUENZA A B RSV PCR 2022-06-04 [facility], [facility] of 16:56:00 [facility] CBC WITH DIFF 2022-06-04 [facility], [facility] of 16:56:00 [facility] ACTIVATED PARTIAL THRMPLAS CLAIRE 2022-06-04 josue, [facility] of 16:56:00 [facility] PROTHROMBIN TIME / INR 2022-06-04 [facility], [facility] ity of 16:56:00 [facility] COMP. METABOLIC PANEL ([id number]) 2022-06-04 josue, [facility] of 16:56:00 [facility] TROPONIN I 2022-06-04 josue, [facility] of 16:56:00 [facility] N-TERMINAL PRO-BNP 2022-06-04 [facility], [facility] of 16:56:00 [facility] LAB ONLY COVID INTERPRETATION 2022-06-04 josue, [facility] of 16:56:00 [facility] HB ECG ROUTINE & RHYTHM STRIP 2022-06-04 Luis Huang [facility] of 16:43:40 [facility] CONSENT/REFUSAL FOR DIAGNOSIS AND 2022-06-04 [facility] 16:38:25 Unassigned, No [facility] CONSENT/REFUSAL FOR DIAGNOSIS AND 2022-06-04 [facility] 16:38:25 Unassigned, No [facility] EMERGENCY SERVICES AGREEMENTS AND 2022-06-04 Doctor Emmonak of AUTHORIZATIONS 06:01:00 Unassigned, No [facility] REFERRAL- REQUEST/RESPONSE 2022-05-21 [facility] 06:01:00 Unassigned, No [facility] EXTERNAL PROVIDER RECORDS 2022-05-21 Doctor Swanson sity of 06:01:00 Unassigned, No [facility] REFERRAL- REQUEST/RESPONSE 2022-05-21 [facility] 06:01:00 Unassigned, No [facility] XR CHEST 1 VW 2022-01-22 [facility] of 15:56:00 [facility] BASIC METABOLIC PANEL (NA, K, CL, 2022-01-22 [facility] of CO2, GLUCOSE, BUN, CREATININE, CA) 15:05:00 [facility] CBC WITH DIFF 2022-01-22 [facility] of 15:05:00 [facility] GALV ONLY - INFLUENZA A B RSV PCR 2022-01-22 [facility] of 15:05:00 [facility] COVID-19 (MOLECULAR TESTING 2022-01-22 [facility] of NUCLEIC ACID AMPLIFICATION) 15:05:00 [facility] LAB ONLY COVID INTERPRETATION 2022-01-22 [facility] iversity of 15:05:00 [facility] CONSENT/REFUSAL FOR DIAGNOSIS AND 2022-01-22 [facility] 14:19:06 Unassigned, No [facility] CONSENT/REFUSAL FOR DIAGNOSIS AND 2022-01-09 [facility] 15:20:54 Unassigned, No [facility] CONSENT/REFUSAL FOR DIAGNOSIS AND 2022-01-09 [facility] 15:20:54 Unassigned, No [place] [facility] CONSENT/REFUSAL FOR DIAGNOSIS AND 2022-01-09 Doctor University of TREATMENT 15:20:33 Unassigned, No [facility] CONSENT/REFUSAL FOR DIAGNOSIS AND 2022-01-[address] [facility] 15:20:33 Unassigned, No [facility] COVID-19 (ID NOW RAPID TESTING) 2022-01-08 Justino Armendariz [place] of 21:18:00 [facility] LAB ONLY COVID INTERPRETATION 2022-01-08 Justino Armendariz Un iversity of 21:18:00 [facility] MAMMO, screening, digital, 2021-12-20 [place] bilateral 00:00:00 [facility] unlisted imaging order 2021-09-27 [place] 00:00:00 [facility] unlisted imaging order 2021-09-20 [place] 00:00:00 [facility] Esophagogastroduodenoscopy 2021-09-13 [place] 00:00:00 [facility] US, abdomen, complete 2021-09-06 [place] 00:00:00 [facility] US, abdomen 2021-08-09 [place] 00:00:00 [facility] MAMMO, screening, digital, 2021-08-09 [place] bilateral 00:00:00 [facility] unlisted imaging order 2021-08-01 [place] 00:00:00 [facility] CHEST X-RAY 2021-07-27 [place] 00:00:00 [facility] SURGICAL PATHOLOGY EXAM 2021-05-18 Magdiel Omer Universi ty of 23:20:00 [facility] [place] SURGICAL PATHOLOGY EXAM 2021-05-18 Michaela Scott Universi ty of 23:19:00 [facility] MAMMO, screening, bilateral 2020-05-11 Cooper yg 00:00:00 [facility] Delivery Parmer [facility] BLACKENER Shunt Placement Parmer [facility] Appendectomy Parmer [facility] Hysterectomy Parmer [facility] Plan of Care Planned Activity Planned Date Details Comments Source Diagnostic Test 2022-10-15 cytology report, Annalisa toney [facility] Pending 00:00:00 thin prep, smear Health Outr each or scraping, Program cervical or vaginal [code = cytology report, thin prep, smear or scraping, cervical or vaginal] Future Appointment 2022-11-22 Ayala Aguilar, 1700 Kenneth ronquillo [facility] 10:45:00 Harvey Markham , [place] Program [phone] Encounters Start End Encounter Admission Attending Care Care Encounter Source Date/Time Date/Time Type Type Clinicians Facility Department ID 2023-03-12 2023-03-12 Outpatient Sylvia WRIGHT [facility] [id number] Univers 09:30:00 09:30:00 [facility] 2023-03-07 2023-03-07 Outpatient Sylvia WRIGHT [facility] [id number] Univers 10:00:00 10:00:00 DAYDAY [facility] 2023-01-17 2023-01-17 Outpatient JUSTINO ORDAZ [facility] [id number] Univers 14:45:00 14:45:00 [facility] 2022-11-15 2022-11-15 Outpatient Sylvia BRITT [facility] [id number] Univers 11:30:00 11:30:00 VEE [facility] 2022-11-12 2022-11-12 Outpatient Sylvia PATEL [facility] [id number] Univers 09:30:00 09:30:00 JUSTINO [facility] 2022-11-08 2022-11-08 Outpatient ERIC DOE [facility] [id number] Univers 10:15:00 10:15:00 ERIC MIRANDA [facility] 2022-11-05 2022-11-07 Inpatient ER Yves [facility] [id number] [place] 19:16:00 18:24:00 Saida -[id number] [facility] 2022-10-25 2022-10-25 Emergency ER CRYSTAL [facility] [id number] [place] 11:59:00 15:30:00 ANGE -[id number] [facility] 2022-10-25 2022-10-25 emergency [id number] 11:59:00 15:30:00 [id number] [id number] 5eb 2022-10-18 2022-10-18 Outpatient R ERIC MIRANDA [facility] [id number] [facility] 13:00:00 14:48:47 ERIC MIRANDA ity of [facility] 2022-10-18 2022-10-18 Office Jen [facility] 1.2.840.114 [id number] [facility] 13:00:00 14:48:47 Visit Eric [facility] 350.1.13.10 ity of [place] 4.2.7.2.686 Marciano as FREDDY?BLEA [phone] [address] MEDICAL OFFICE BUILDING 2022-10-17 2022-10-18 Outpatient E LOLLY [facility] [id number] [facility] 22:47:00 02:44:00 OMERINE Medica [facility] 2022-10-15 2022-10-15 Outpatient Rika_Ayala [facility] 103 [id number] [place] 00:00:00 00:00:00 [id number] [facility] 2022-10-15 2022-10-15 Josiah [facility] [place] - [id number] [place] 00:00:00 00:00:00 Gregorio Zamora MD: [facility] Epi scop 2 [facility] 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 [id number] 2022-10-14 2022-10-14 Telephone Justino Armendariz [facility] 1.2.840.114 [id number] Univers 00:00:00 00:00:00 R HEALTH 350.1.13.10 it y of [place] [id number] [address] 2022-10-14 2022-10-14 Orders Doctor CORY 1.2.840.114 [id number] Univers 00:00:00 00:00:00 Only Unassigned, EMILEE 350.1.13.10 ity of [place] [facility] 4.2.7.2.686 Marciano as [id number] [place] [address] [place] 2022-10-01 2022-10-01 Outpatient Sylvia PATEL [facility] [id number] Univers 11:00:00 11:00:00 JUSTINO ity of [facility] 2022-10-01 2022-10-01 Outpatient Rika_Ayala [facility] 103 [id number] [place] 00:00:00 00:00:00 [id number] [facility] 2022-10-01 2022-10-01 [facility] [id number] M at[place] 00:00:00 00:00:00 Rika: 1700 [place] Gabriel Tenriism Episco p [place], [facility] [address] [facility] ac , Ph. h (979) Program 2022-09-27 2022-09-27 Emergency ER Franny, [facility] [id number] [place] 14:36:00 15:35:00 Lorena -[id number] [facility] 2022-09-27 2022-09-27 emergency [id number] 14:36:00 15:35:00 2381-551e [id number] 5eb 2022-09-25 2022-09-25 Orders Doctor RAY 1.2.840.114 [id number] Univers 00:00:00 00:00:00 Only Unassigned, EMILEE 350.1.13.10 ity of [place] [facility] 4.2.7.2.686 Marciano as [phone] [place] [address] [address] 2022-09-23 2022-09-23 Outpatient Rika_Ayala [facility] 103 [id number] [place] 00:00:00 00:00:00 [id number] [facility] 2022-09-23 2022-09-23 Outpatient Rika_Ayala [facility] 103 [id number] [place] 00:00:00 00:00:00 [id number] [facility] 2022-09-23 2022-09-23 Ayalaluis SHARP [place] - [id number] Venessa atagor 00:00:00 00:00:00 Rika: 1700 [place] Gabriel Tenriism Episco p [place], [facility] [address] [facility] ac , Ph. 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 Draw, Clc-Bls Lab [facility] 1.2.8 40.114 [id number] Univers 13:15:00 13:30:00 Visit Adriana [facility] 350.1.13.10 ity of [place]2.7.2.686 [place] [phone] [place] [address] Branch OFFICE BUILDING 2022-09-04 2022-09-04 Office Adriana [facility] 1.2.840.114 [id number] Univers 11:30:00 11:45:00 Visit [facility] 350.1.13.10 it y of [place]2.[place].2.686 [place] [phone] [place] [address] Branch OFFICE BUILDING 2022-08-29 2022-08-29 Orders Doctor CORY 1.2.840.114 [id number] Univers 00:00:00 00:00:00 Only Unassigned, EMILEE 350.1.13.10 ity of [place] [facility] 4.2.7.2.686 Marciano as [phone] [place] [address] [address] 2022-08-26 2022-08-26 Outpatient Saha_Ayala SHARP [facility] 103 [id number] [place] 00:00:00 00:00:00 [id number] [facility] 2022-08-26 2022-08-26 Outpatient Saha_Ayala [facility] 103 [id number] [place] 00:00:00 00:00:00 [id number] [facility] 2022-08-26 2022-08-26 Ayala [facility] [place] - [id number] M atagor 00:00:00 00:00:00 Rika: [address] toney [address], [facility] [address] [facility] , Ph. h (979) Program 2022-08-25 2022-08-25 Outpatient Saha_Ayala [facility] 103 [id number] [place] 00:00:00 00:00:00 [id number] [facility] 2022-08-21 2022-08-21 Transition Thierry, 1.2.840.8 [id number] Univers 00:00:00 00:00:00 of Care Virginie 27569.1.1 i ty 3.104.2.7 [place] .3.596347 Medica l .8 Branch 2022-08-16 2022-08-20 Inpatient U [facility] [id number] Univers 17:40:00 16:08:00 MARCIN ity [facility] 2022-08-16 2022-08-20 [facility] 1.2.840.2 [id number] Univers 17:40:00 16:08:00 Encounter Amalia Akins 80390.1.1 ity Marcin Soares 3.104.2.7 [place] .3.444827 Medica l .8 Branch 2022-08-20 2022-08-20 Multidisci CORY Singh 1.2.840.114 [id number] Univers 00:00:00 00:00:00 plinary Arely HEBERT 350.1.13.10 it y [facility] 4.2.7.2.686 [place] [id number] [facility] westley 011 Branch 2022-08-16 2022-08-16 Travel 1.2.840.1 1.2.476.571 [id number] [facility] 00:00:00 00:00:00 08122.1.1 350.1.13.10 ity of 3.104.2.7 4.[place].3.698 [place] .3.493957 084.8 Medica [facility] Branch 2022-08-15 2022-08-15 Emergency ER MARLENE [facility] [id number] [place] 17:38:00 20:13:00 ALBERT -[id number] [facility] 2022-08-01 2022-08-01 Telephone Justino Armendariz 1.2.840.6 [id number] [facility] 00:00:00 00:00:00 R 16165.1.1 ity of 3.104.2.7 [place] .3.122014 Medica [facility] Branch 2022-07-16 2022-07-16 Outpatient Saha_Andrea [facility] 103 [id number] [place] 00:00:00 00:00:00 [id number] [facility] 2022-07-16 2022-07-16 Outpatient Saha_Andrea [facility] 103 [id number] [place] 00:00:00 00:00:00 [id number] [facility] 2022-07-16 2022-07-16 Outpatient Saha_Andrea [facility] 103 [id number] [place] 00:00:00 00:00:00 36025 [facility] 2022-07-02 2022-07-02 Outpatient Saha_Andrea [facility] 103 [id number] [place] 00:00:00 00:00:00 32479 [facility] 2022-06-19 2022-06-19 Outpatient Sylvia BUSBY NJPOLO [facility] [id number] Univers 16:00:00 16:00:00 WILLIAM hoffman [facility] 2022-06-17 2022-06-17 Outpatient EL PANT [facility] [id number] [place] 09:53:00 09:53:00 JOANNE, -[id number] zoe GORDON [facility] 2022-06-04 2022-06-04 Emergency X REINA, [facility] ERT [id number] Univers 10:39:00 16:45:00 LUIS hoffman of [facility] 2022-06-04 2022-06-04 Emergency Reina, 1.2.840.5 [id number] Univers 10:39:00 16:45:00 Luis Silva 15810.1.1 i ty of 3.104.2.7 [place] .3.379564 Medica l .8 Branch 2022-06-04 2022-06-04 Travel 1.2.840.1 1.2.662.123 [id number] Univers 00:00:00 00:00:00 22371.1.1 350.1.13.10 ity of 3.104.2.7 4.2.7.3.698 [place] .3.111882 084.8 Medica l .8 [place] 2022-06-03 2022-06-03 [facility]patient [facility] 103 [id number] [place] 00:00:00 00:00:00 68420 [facility] 2022-05-21 2022-05-21 Outpatient [facility] 103 [id number] [place] 00:00:00 00:00:00 36591 [facility] 2022-05-21 2022-05-21 Orders Doctor 1.2.840.9 [id number] Univers 00:00:00 00:00:00 Only Unassigned, 29714.1.1 ity of [place] 3.104.2.7 [place] .3.657547 Medica l .8 [place] 2022-05-20 2022-05-20 Outpatient Rika_Ayala [facility] 103 [id number] [place] 00:00:00 00:00:00 10327 [facility] 2022-05-20 2022-05-20 Ayala [facility] - [id number] M atagor 00:00:00 00:00:00 Rika: 1700 [place] Gabriel Tenriism Episco p [place], [facility] [address] [facility] , Ph. h (979) Program 2022-05-17 2022-05-17 Outpatient Lavon SHARP [facility] 103 [id number] [place] 00:00:00 00:00:00 77747 [facility] 2022-04-11 2022-04-24 Inpatient [facility] [id number] Memoria 00:29:00 19:45:00 r Man 85 l [facility] 2022-04-11 2022-04-24 Inpatient [facility] [id number] Memoria 00:29:00 19:45:00 r [place] 85 l [facility] 2022-04-10 2022-04-24 Outpatient Isra, [facility] [id number] 19:29:00 14:45:00 Mela Ramos Rich 2022-04-10 2022-04-24 Inpatient U ISRA, [facility] [id number] Memoria 19:29:00 14:45:00 MELA [facility] 2022-04-19 2022-04-19 Outpatient Lavon OKTERE [facility] 103 [id number] [place] 00:00:00 00:00:00 [id number] [facility] 2022-04-10 2022-04-10 Outpatient Vivekananth [facility] [id number] 19:29:00 19:29:00 an, 85 Nireshkumar i 2022-04-10 2022-04-10 Emergency E MAY, [facility] [id number] [facility] 11:52:00 18:57:00 MELA Jones [facility] 2022-03-14 2022-03-14 Outpatient Lavon OKTERE [facility] 103 [id number] [place] 00:00:00 00:00:00 [id number] [facility] 2022-03-14 2022-03-14 [facility] [place] - [id number] atagor 00:00:00 00:00:00 Reno Lundberg 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 2022-02-13 2022-02-13 Outpatient NILSA MICHELLE [facility] [id number] [place] 14:40:00 18:30:00 [facility] 2022-01-22 2022-01-22 Emergency X RICO, [facility] ERT [id number] Univers 09:17:00 12:51:00 WILLIEANG ity o f [facility] 2022-01-22 2022-01-22 Emergency Rico, TRAUMA 1.2.450.311 [id number] Univers 09:17:00 12:51:00 [facility] 350.1.13.10 i ty of [place] 4.2.7.2.686 [place] [id number] [address] 2022-01-10 2022-01-10 Outpatient JUSTINO ORDAZ [facility] [id number] Univers 13:00:00 13:00:00 ity [facility] 2022-01-10 2022-01-10 Outpatient LILIYA AGUILAR [facility] [id number] [place] 11:02:00 11:02:00 AYALA -[id number] [facility] 2022-01-09 2022-01-09 Outpatient JUSTINO ORDAZ [facility] OPH [id number] Univers 10:19:00 11:40:00 ity of [facility] 2022-01-09 2022-01-09 [facility] Justino Armendariz 1.2.840.6 [id number] Univers 10:19:00 11:40:00 Encounter R 82530.1.1 it y of 3.104.2.7 [place] .3.816684 Medica l .8 [place] 2022-01-08 2022-01-08 Laboratory Justino Armendariz 1.2.840.1 [id number] Univers 16:15:00 16:30:00 Only Only, Adc Test 20215.1.1 ity of 3.104.2.7 [place] .3.984636 Medica l .8 [place] 2022-01-08 2022-01-08 Outpatient JUSTINO ORDAZ [facility] [id number] Univers 16:15:00 16:15:00 ity of [facility] 2022-01-07 2022-01-07 Travel 1.2.840.1 1.2.182.732 [id number] Univers 00:00:00 00:00:00 65609.1.1 350.1.13.10 ity of 3.104.2.7 4.2.7.3.698 [place] .3.028417 084.8 Medica l .8 Branch 2022-01-01 2022-01-01 Outpatient Lavon [facility] 103 [place] 00:00:00 00:00:00 [id number] [facility] 2021-12-21 2021-12-21 Outpatient Lavon [facility] [place] 08:03:00 08:03:00 [facility] 2021-12-20 2021-12-20 Ayala Doll [facility] - [id number] - [place] 00:00:00 00:00:00 Rika: 1700 [place] [address] [address], [facility] [address] [facility] , Ph. h (979) Program 2021-12-07 2021-12-07 Outpatient Haylee_Susanne [facility] 103 [place] 08:27:00 08:27:00 bin [facility] 2021-11-06 2021-11-06 Outpatient Ghassanadamaris_Susanne [facility] 103 [place] 02:40:00 02:40:00 bin [facility] 2021-10-05 2021-10-05 Outpatient 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 2021-09-20 2021-09-20 Outpatient LILIYA LEACH [facility] [id number] [place] 09:30:00 09:30:00 PEDRO [id number] [facility] 2021-09-20 2021-09-20 Ayala AMBREEN_FAR [facility] [id number] [place] 00:00:00 00:00:00 Rika: 1700 CAROLE Bojorquez [address], [facility] [address] [facility] , Ph. h (979) Program 2021-09-17 2021-09-17 Outpatient AMBREEN_FAR [facility] 103 [id number]- [place] 07:00:00 07:00:00 CAROLE [facility] 2021-09-13 2021-09-13 Outpatient LILIYA LEACH [facility] [id number] [place] 10:17:00 10:17:00 PEDRO [id number] [facility] 2021-09-11 2021-09-11 Outpatient AMBREEN_FAR OKHOP [facility] 103 367 [place] 10:52:00 10:52:00 CAROLE [facility] 2021-09-06 2021-09-06 Pedro Askew AMBREEN_FAR [facility] 103 [place] 00:00:00 00:00:00 CAROLE Leach [address]85[address] bhavesh DOMINGUEZ: 61679 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 2021-09-04 2021-09-04 Outpatient AMBREEN_FAR [facility] 103 [id number] [place] 10:29:00 10:29:00 CAROLE [facility] 2021-08-30 2021-08-30 Outpatient JUSTINO ORDAZ [facility] [id number] Univers 09:15:00 09:15:00 [facility] 2021-08-23 2021-08-23 Outpatient JUSTINO ORDAZ [facility] [id number] Univers 08:30:00 08:30:00 [facility] 2021-08-10 2021-08-10 Outpatient AMBREEN_FAR [facility] 103 [place] 09:12:00 09:12:00 CARLOE [facility] 2021-08-09 2021-08-09 Ayala AMBREEN_[facility] [place] - [id number] [place] 00:00:00 00:00:00 Rika: 1700 CAROLE Bojorquez zoe toney Gabriel [address], [facility] [address] [facility] , Ph. h (979) Program 2021-08-08 2021-08-08 Outpatient AMBREEN_FAR [facility] 103 - [place] 10:12:00 10:12:00 CAROLE [facility] 2021-07-28 2021-07-28 Outpatient LILIYA AGUILAR [facility] [id number] [place] 11:52:00 11:52:00 AYALA -[id number] [facility] 2021-07-28 2021-07-28 Outpatient AMBREEN_FAR [facility] 103 367- [place] 08:02:00 08:02:00 CAROLE [facility] 2021-07-27 2021-07-27 Ayala AMBREEN_[facility] [place] - [id number] -[id number] [place] 00:00:00 00:00:00 Rika: 1700 CAROLE Bojorquez d a Gabriel Ten[address], [facility] [address] Expansion Out reac , Ph. h (979) Program 2021-07-05 2021-07-05 Outpatient Toño_Luis MMG MMG [id number] [place] 01:22:00 01:22:00 0106 Medical Group 2021-07-05 2021-07-05 [facility] [id number] - [place] 00:00:00 00:00:00 Rika: 1700 CAROLE Bojorquez d a Gabriel Ten[address], [facility] [address] Expansion Out reac , Ph. h (979) Program 2021-05-22 2021-05-22 Telephone Justino Armendariz [facility] 1.2.840.11 [id number] Univers 00:00:00 00:00:00 R Y 350.1.13.10 it y of NATIONAL 4.2.7.2.686 Marciano as BANK [phone] [facility]. 136 [place] 2021-05-18 2021-05-18 Office Justino Armendariz [facility] 1.2.840.114 [id number] Univers 15:22:02 17:55:12 Visit R Y 350.1.13.10 it y of NATIONAL 4.2.7.2.686 Marciano as BANK [phone] [facility]. 136 [place] 2021-05-18 2021-05-18 Outpatient R JUSTINO ARMEDNARIZ [facility] [id number] Univers 15:15:00 17:55:12 ity of [facility] 2021-05-18 2021-05-18 Outpatient R JUSTINO ARMENDARIZ [facility] [id number] Univers 15:15:00 17:55:12 ity of [facility] 2021-05-18 2021-05-18 Orders Doctor RAY 1.2.840.[id number] [place] [address] 00:00:00 00:00:00 Only Unassigned, EMILEE 350.1.13.10 ity of [place] [facility] 4.2.7.2.686 Marciano as [phone] [facility] 009 [address] 2021-03-13 2021-03-13 Outpatient E MARICRUZ LUNDBERG [facility] [id number] [facility] 14:19:00 17:29:00 Medica l Mathews 2021-02-16 2021-02-16 Office Justino Armendariz [facility] 1.2.840.114 [id number] Univers 09:16:35 09:31:35 Visit R Delilah 350.1.13.10 it y of [facility] 4.2.7.2.686 Marciano as BANK [phone] [facility] [address] 2021-02-16 2021-02-16 Outpatient R JUSTINO ARMENDARIZ [facility] [id number] Univers 09:30:00 09:30:00 ity of [facility] 2021-02-09 2021-02-09 Office Jesús, [facility] [id number] Univers 15:29:00 15:44:00 Visit Estrellita Y [id number] i ty [facility] [id number] Marciano as BANK [phone] [facility]. [address] 2021-02-09 2021-02-09 [facility] [id number] Univers 15:15:00 15:15:00 ESTRELLITA ity o f [facility] 2020-07-16 2020-07-16 Outpatient E KAYLI [facility] [id number] [facility] 13:58:00 18:20:00 PATRICK [facility] 2020-05-18 2020-05-18 [facility] [id number] [place] 00:00:00 00:00:00 Ministerio Bojorquez [id number] bhavesh Marmoleoj, [place] PA: [address], [place] [address] , Ph. 2020-05-17 2020-05-17 Outpatient [facility] [id number] [place] 02:29:00 02:29:00 [id number] [facility] 2020-05-15 2020-05-15 Outpatient AMBREEN_FAR MEHOP [facility] [id number] [place] 03:58:00 03:58:00 [place] [id number] [facility] 2020-05-11 2020-05-11 Natalie AMBREEN_FAR MEHOP [place] - [id number] [place] 00:00:00 00:00:00 Ministerio Bojorquez [id number] da Foster, Ten[place]ism [place] PA: [address] [facility] [address], [place] [address] [address] [place] [address] , Ph. 2020-05-02 2020-05-02 Outpatient AMBREEN_FAR OKHOP [facility] [id number] [place] 03:57:00 03:57:00 [place] [id number] [facility] 2020-05-01 2020-05-01 Outpatient Leora [facility]EV[facility]Z [facility] [id number] [facility] 14:58:00 16:40:00 WASIM [facility] 2019-12-15 2019-12-15 Office Adriana, [facility] 1.2.840.114 [id number] Univers 12:40:00 13:00:00 Visit [facility] [id number] it y of [place] 4.2.7.2.686 [facility] [phone] [address] Office Building 2019-12-15 2019-12-15 Outpatient R ADRIANA [facility] [id number] Univers 12:40:00 12:40:00 DAYDAY ity of [facility] 2019-12-15 2019-12-15 Orders Doctor CORY [id number] Univers 00:00:00 00:00:00 Only Unassigned, EMILEE 350.1.13.10 ity of [place] [facility] 4.2.7.2.686 Marciano [phone] [place] [address] [address] 2019-12-15 2019-12-15 [facility] [id number] Univers 00:00:00 00:00:00 Dayday SPECIALTY [id number] ity of [place] 4.2.7.2.686 Art rodgers [place] [phone] [place] [address] [address] 2019-12-02 2019-12-02 Telephone VANESSA Wright [id number] Univers 00:00:00 00:00:00 [facility] [id number] it y of [place] 4.2.7.2.686 Art rodgers [place] [phone] [address] Office Building 2017-05-01 2017-05-01 Emergency TR [facility] [id number] [place] 10:53:00 13:51:00 [id number] 2016-08-23 2016-08-23 Emergency ER [facility] [id number] [place] 10:01:00 11:43:00 [facility][id number] [facility] 2016-07-24 2016-07-24 Outpatient LILIYA [facility] [id number] [place] 11:52:00 11:52:00 SIMONE [id number] [facility] 2016-07-18 2016-07-21 Inpatient ER BRIANA [facility] [id number] [place] 21:35:00 16:16:00 AG [id number] [facility] Results Test Description Test Time Test Comments Results Result Comments Source TROPONIN I OW 2022-10-18 00:20:00 Test Item Value Reference Range Interpretation Comme nts TROPONIN I (test code = <0.05 ng/mL See_Comment [Au tomated message] The system GTPI) which generated this result transmitted ref erence range: <=0.05. The ref erence range was not used to int erpret this result as normal/abnor mal. GENERAL CHEMISTRY 13 *OW* [id number] 23:41:00 Test Item Value Reference Range Interpretation [...] 44 U/L 14-97 [employer] 8 Panel *OW* [id number] 23:41:00 Test Item Value Reference Range Interpretation [...] Comprehensive metabolic 2000 panel - Serum or [id number] 00:00:00 Test Item Value Reference Range Interpretation [...] Creatinine-based formula (CKD-EPI 2020) (test code = 78657-1) Urea nitrogen/Creatinine 9 9-23 [Mass Ratio] in Serum or Plasma (test code = 3097-3) Sodium [Moles/volume] in 145 mmol/L 134-144 H Serum or Plasma (test code = 2951-2) Potassium [Moles/volume] in 4.1 mmol/L 3.5-5.2 Serum or Plasma (test code = 2823-3) Chloride [Moles/volume] in 107 mmol/L 96-106 H Serum or Plasma (test code = 2075-0) Carbon dioxide, total 23 mmol/L 20-29 [Moles/volume] in Serum or Plasma (test code = 202-) Calcium [Mass/volume] in 9.4 mg/dL 8.7-10.2 Serum or Plasma (test code = 84755-4) Protein [Mass/volume] in 6.1 g/dL 6.0-8.5 Serum or Plasma (test code = 2885-2) Albumin [Mass/volume] in 4.2 g/dL 3.8-4.9 Serum or Plasma (test code = 1751-7) Globulin [Mass/volume] in 1.9 g/dL 1.5-4.5 Serum by calculation (test code = 37797-6) Albumin/Globulin [Mass Ratio] 2.2 1.2-2.2 in Serum or Plasma (test code = 1759-0) Bilirubin.total [Mass/volume] <0.2 0.0-1.2 in Serum or Plasma (test code = 1975-) Alkaline phosphatase 116 IU/L 44-121 [Enzymatic activity/volume] in Serum or Plasma (test code = 6768-6) Aspartate aminotransferase 15 IU/L 0-40 [Enzymatic activity/volume] in Serum or Plasma (test code = 1920-8) Alanine aminotransferase 24 IU/L 0-32 [Enzymatic activity/volume] in Serum or Plasma (test code = 1742-6) [facility] - Serum or [id number] 00:00:00 Test Item Value Reference Range Interpretation Comments Thyrotropin [Units/volume] in 1.480 uIU/mL 0.450-4.500 Serum or Plasma by Detection limit <= 0.005 mIU/L (test code = 47526-4) Thyroxine (T4) free 0.93 NG/dL 0.82-1.77 [Mass/volume] in Serum or Plasma (test code = 3024-7) [facility] W Auto Differential panel - Blood 2022-09-25 [...] = 706-2) immature cells (test code = continuing education instructor immature cells) Neutrophils [#/volume] in Blood 2.0 [...] Blood by Automated count (test code = 38373-1) Immature granulocytes 0.0 x10e3/uL 0.0-0.1 [#/volume] in Blood by Automated count (test code = 95143-8) Nucleated erythrocytes/100 continuing education instructor leukocytes [Ratio] in Blood by Automated count (test code = 99621-9) Morphology [Interpretation] in continuing education instructor Blood Narrative (test code = 27831-3) [facility] - Serum or Plasma 2022-09-25 [...] or Plasma by calculation (test code = 54922-2) Cholesterol in LDL [Mass/volume] in 108 mg/dL 0-99 H Serum or Plasma by calculation (test code = 15987-3) Laboratory comment [Text] in Report continuing education instructor Narrative (test code = 55676-9) [facility]+Cyanocobalamin [Interpretation] in Serum or [id number] 00:00:00 Test Item Value Reference Range Interpretation Comments Cobalamin (Vitamin B12) 663 pg/mL 232-1245 [Mass/volume] in Serum or Plasma (test code = 2132-9) Folate [Mass/volume] in Serum or 16.6 NG/mL >3.0 Plasma (test code = 2284-8) [facility] Center[facility]em[facility] A1c/Hemoglobin.total in [id number] 00:00:00 Test Item Value Reference Range Interpretation Comments Hemoglobin A1c/Hemoglobin.total in 6.2 % 4.8-5.6 H Blood (test code = 4548-4) [facility]3+25- Hydroxyvitamin D2 [Mass/volume] in Serum or [id number] 00:00:00 Test Item Value Reference Range Interpretation Comments 25-Hydroxyvitamin 19.1 NG/mL 30.0-100.0 L D3+25-Hydroxyvitamin D2 [Mass/volume] in Serum or Plasma (test code = 52807-3) [facility] and 2 tests - Meaningful Use [id number] 00:00:00 Test Item Value Reference Range Interpretation Comments HIV 1+2 Ab+HIV1 p24 Ag non reactive non reactive [Presence] in Serum or Plasma by Immunoassay (test code = 69584-1) [facility] panel, [id number] 00:00:00 Test Item Value Reference Range Interpretation Comments Interpretation and review of laboratory note results (test code = 04396-0) Report (test code = 06067-4) . [facility] CenterUrinalysis complete W Reflex Culture panel - [id number] 00:00:00 Test Item Value Reference Range Interpretation [...] negative negative/trace Test strip (test code = 33173-7) Glucose [Presence] in Urine by negative negative Test strip (test code = 73235-0) Ketones [Presence] in Urine by negative negative Test strip (test code = 2514-8) Hemoglobin [Presence] in Urine by negative negative Test strip (test code = 5794-3) Bilirubin.total [Presence] in negative negative Urine by Test strip (test code = 5770-3) Urobilinogen [Mass/volume] in 0.2 mg/dL 0.2-1.0 Urine by Test strip (test code = 52309-0) Nitrite [Presence] in Urine by negative negative Test strip (test code = 5802-4) Microscopic observation see below: [Identifier] in Urine sediment by Light microscopy (test code = 64621-0) Leukocytes [#/area] in Urine 0-5 0-5 sediment by Microscopy high power field (test code = 5821-4) Erythrocytes [#/area] in Urine none seen 0-2 sediment by Microscopy high power field (test code = 59019-3) Epithelial cells [#/area] in Urine 0-10 0-10 sediment by Microscopy high power field (test code = 5787-7) Epithelial cells.renal [#/area] in continuing education instructor Urine sediment by Microscopy high power field (test code = 11811-6) Casts [Presence] in Urine sediment none seen none seen by Light microscopy (test code = 90473-6) Casts [Type] in Urine sediment by continuing education instructor Light microscopy (test code = 87886-0) Unidentified crystals [Presence] continuing education instructor in Urine sediment by Light microscopy (test code = 5783-6) Crystals [type] in Urine sediment continuing education instructor by Light microscopy (test code = 5782-8) Mucus [Presence] in Urine sediment continuing education instructor by Light microscopy (test code = 8247-9) Bacteria [#/area] in Urine none seen none seen/few sediment by Microscopy high power field (test code = 5769-5) Yeast [#/area] in Urine sediment continuing education instructor by Microscopy high power field (test code = 5822-2) Trichomonas vaginalis [Presence] continuing education instructor in Urine sediment by Light microscopy (test code = 5813-1) Urine sediment comments by Light continuing education instructor microscopy Narrative (test code = 33920-1) urinalysis reflex (test code = comment urinalysis reflex) [facility] ProgramCom[facility] 2000 panel - Serum or [id number] 00:00:00 Test Item Value Reference Range Interpretation [...] Creatinine-based formula (CKD-EPI 2020) (test code = 22574-7) Urea nitrogen/Creatinine 9 9-23 [Mass Ratio] in Serum or Plasma (test code = 3097-3) Sodium [Moles/volume] in 145 mmol/L 134-144 H Serum or Plasma (test code = 2951-2) Potassium [Moles/volume] in 4.1 mmol/L 3.5-5.2 Serum or Plasma (test code = 2823-3) Chloride [Moles/volume] in 107 mmol/L 96-106 H Serum or Plasma (test code = 207-0) Carbon dioxide, total 23 mmol/L 20-29 [Moles/volume] in Serum or Plasma (test code = 2027-) Calcium [Mass/volume] in 9.4 mg/dL 8.7-10.2 Serum or Plasma (test code = 15718-6) Protein [Mass/volume] in 6.1 g/dL 6.0-8.5 Serum or Plasma (test code = 2885-2) Albumin [Mass/volume] in 4.2 g/dL 3.8-4.9 Serum or Plasma (test code = 1751-7) Globulin [Mass/volume] in 1.9 g/dL 1.5-4.5 Serum by calculation (test code = 26261-8) Albumin/Globulin [Mass Ratio] 2.2 1.2-2.2 in Serum or Plasma (test code = 1759-0) Bilirubin.total [Mass/volume] <0.2 0.0-1.2 in Serum or Plasma (test code = 1974-) Alkaline phosphatase 116 IU/L 44-121 [Enzymatic activity/volume] in Serum or Plasma (test code = 6768-6) Aspartate aminotransferase 15 IU/L 0-40 [Enzymatic activity/volume] in Serum or Plasma (test code = 1920-8) Alanine aminotransferase 24 IU/L 0-32 [Enzymatic activity/volume] in Serum or Plasma (test code = 1742-6) [facility] - Serum or [id number] 00:00:00 Test Item Value Reference Range Interpretation Comments Thyrotropin [Units/volume] in 1.480 uIU/mL 0.450-4.500 Serum or Plasma by Detection limit <= 0.005 mIU/L (test code = 34780-4) Thyroxine (T4) free 0.93 NG/dL 0.82-1.77 [Mass/volume] in Serum or Plasma (test code = 3024-7) [facility] Differential panel - Blood 2022-09-25 [...] = 706-2) immature cells (test code = continuing education instructor immature cells) Neutrophils [#/volume] in Blood 2.0 [...] Blood by Automated count (test code = 12519-2) Immature granulocytes 0.0 x10e3/uL 0.0-0.1 [#/volume] in Blood by Automated count (test code = 06318-2) Nucleated erythrocytes/100 continuing education instructor leukocytes [Ratio] in Blood by Automated count (test code = 13213-5) Morphology [Interpretation] in continuing education instructor Blood Narrative (test code = 84878-2) [facility] 1996 panel - Serum or Plasma 2022-09-25 [...] or Plasma by calculation (test code = 52429-7) Cholesterol in LDL [Mass/volume] in 108 mg/dL 0-99 H Serum or Plasma by calculation (test code = 60266-7) Laboratory comment [Text] in Report continuing education instructor Narrative (test code = 12920-4) [facility] CenterFolate+Cyanocobalamin [Interpretation] in Serum or [id number] 00:00:00 Test Item Value Reference Range Interpretation Comments Cobalamin (Vitamin B12) 663 pg/mL 232-1245 [Mass/volume] in Serum or Plasma (test code = 2132-9) Folate [Mass/volume] in Serum or 16.6 NG/mL >3.0 Plasma (test code = 2284-8) [facility] CenterHemoglobin A1c/Hemoglobin.total in [id number] 00:00:00 Test Item Value Reference Range Interpretation Comments Hemoglobin A1c/Hemoglobin.total in 6.2 % 4.8-5.6 H Blood (test code = 4548-4) [facility]25-Hydroxy[facility] D3+25- Hydroxyvitamin D2 [Mass/volume] in Serum or [id number] 00:00:00 Test Item Value Reference Range Interpretation Comments 25-Hydroxyvitamin 19.1 NG/mL 30.0-100.0 L D3+25-Hydroxyvitamin D2 [Mass/volume] in Serum or Plasma (test code = 02113-4) [facility]HIV [facility] and 2 tests - Meaningful Use [id number] 00:00:00 Test Item Value Reference Range Interpretation Comments HIV 1+2 Ab+HIV1 p24 Ag non reactive non reactive [Presence] in Serum or Plasma by Immunoassay (test code = 86031-4) [facility]ercardi[facility] assessment panel, [id number] 00:00:00 Test Item Value Reference Range Interpretation Comments Interpretation and review of laboratory note results (test code = 49294-4) Report (test code = 44241-0) . [facility] CenterUrinalysis complete W Reflex Culture panel - [id number] 00:00:00 Test Item Value Reference Range Interpretation [...] negative negative/trace Test strip (test code = 00200-8) Glucose [Presence] in Urine by negative negative Test strip (test code = 79377-6) Ketones [Presence] in Urine by negative negative Test strip (test code = 2514-8) Hemoglobin [Presence] in Urine by negative negative Test strip (test code = 5794-3) Bilirubin.total [Presence] in negative negative Urine by Test strip (test code = 5770-3) Urobilinogen [Mass/volume] in 0.2 mg/dL 0.2-1.0 Urine by Test strip (test code = 60155-1) Nitrite [Presence] in Urine by negative negative Test strip (test code = 5802-4) Microscopic observation see below: [Identifier] in Urine sediment by Light microscopy (test code = 27909-5) Leukocytes [#/area] in Urine 0-5 0-5 sediment by Microscopy high power field (test code = 5821-4) Erythrocytes [#/area] in Urine none seen 0-2 sediment by Microscopy high power field (test code = 45527-9) Epithelial cells [#/area] in Urine 0-10 0-10 sediment by Microscopy high power field (test code = 5787-7) Epithelial cells.renal [#/area] in continuing education instructor Urine sediment by Microscopy high power field (test code = 66829-9) Casts [Presence] in Urine sediment none seen none seen by Light microscopy (test code = 80572-3) Casts [Type] in Urine sediment by continuing education instructor Light microscopy (test code = 58649-3) Unidentified crystals [Presence] continuing education instructor in Urine sediment by Light microscopy (test code = 5783-6) Crystals [type] in Urine sediment continuing education instructor by Light microscopy (test code = 5782-8) Mucus [Presence] in Urine sediment continuing education instructor by Light microscopy (test code = 8247-9) Bacteria [#/area] in Urine none seen none seen/few sediment by Microscopy high power field (test code = 5769-5) Yeast [#/area] in Urine sediment continuing education instructor by Microscopy high power field (test code = 5822-2) Trichomonas vaginalis [Presence] continuing education instructor in Urine sediment by Light microscopy (test code = 5813-1) Urine sediment comments by Light continuing education instructor microscopy Narrative (test code = 89842-3) urinalysis reflex (test code = comment urinalysis reflex) [facility] CenterGlucose [Mass/volume] in Capillary [id number] 14:32:00 Test Item Value Reference Range Interpretation Comments Blood Glucose: mg/dl (test code = Blood 97 Glucose: mg/dl) [facility] CenterGlucose [Mass/volume] in Capillary [id number] 14:32:00 Test Item Value Reference Range Interpretation Comments Blood Glucose: mg/dl (test code = Blood 97 Glucose: mg/dl) [facility] CenterTransthoracic echo (TTE)2022-08-19 23:14:36 Test Item Value Reference Range Interpretation Comments Height (test code = 64 in 4665265706) Weight (test code = 162 lbs 2662010743) Systolic BP (test code = 108 mmHg 0955237685) Diastolic BP (test code 64 mmHg = 5703223061) Heart Rate (test code = 83 bpm 2695031511) LV GLS Endo Peak A2C -14.10 % () (test code = 9097215714) LV GLS Endo Peak A3C -16.20 % () (test code = 8765066861) LV GLS Endo Peak A4C -15.80 % () (test code = 2321565361) LV GLS Endo Peak Avg -15.30 % () (test code = 0891747157) BSA (test code = 1.79 m2 2603871769) LVOT diameter (test code 1.97 cm = 1206024862) LVOT area (test code = 3.00 cm2 0804954796) Ao root diam (test code 2.36 cm = 1576207366) Aortic root (test code = 2.36 cm 2840565425) Ao root annulus (test 2.36 cm code = 3194480113) LA size (test code = 3.5 cm 7819815728) E wave decelartion time 0.24 s (test code = 9397045977) MV Peak A Clarita (test code 69.1 cm/s = 8689927267) MV Peak E Clarita (test code 59.5 cm/s = 5080055700) E/A ratio (test code = 0.86 ratio 9455437462) MV Prop V (test code = 29.30 cm/s 8342571210) LAV(MOD-sp4) (test code 21.60 mL = 2139529446) MV E/e' septal (test 8.1 cm/s code = 4192785695) Tapse (test code = 1.94 cm 9958726760) TR Peak Clarita (test code = 208.8 cm/s 8970605011) Triscuspid Valve 17.4 mmHg Regurgitation Peak Gradient (test code = 6938719732) LVOT stroke volume (test 56.40 cm3 code = 0989132231) LVOT peak clarita (test code 86.7 cm/s = 5177426777) LVOT mn grad (test code 1.4 mmHg = 4587893572) AV LVOT peak gradient 3.0 mmHg (test code = 1753259268) LVOT peak VTI (test code 18.5 cm = 5943758781) LV V1 mean (test code = 55.40 cm/s 9196837004) LA Volume Index (BP) 13.4 mL/m2 (test code = 0712810234) LA volume (BP) (test 23.9 mL code = 7504985278) LAV(MOD-sp2) (test code 20.80 mL = 5295172462) LVIDD (test code = 4.40 cm 4089499425) Left Ventricular End 87.4 mL Diastolic Volume by Teichholz Method (test code = 6229119) IVS (test code = 0.84 cm 6219128702) Interventricular Septum 0.84 cm Diastolic Thickness by 2D (test code = 0611050) LVPWD (test code = 0.75 cm 9703944456) PW (test code = 0.75 cm 0.6-1.0 1189248798) EF(Teich) (test code = 47.80 % 4060652037) LVIDS (test code = 3.30 cm 1013057241) Left Ventricular End 45.6 mL Systolic Volume by Teichholz Method (test code = 1349533) FS (test code = 24 % 6853203150) EF - 2D (test code = 47.80 % 60811092) GLS (test code = -15 % 4956715505) A4C EF (test code = 52.60 % 4949928205) EF(sp4-el) (test code = 53.60 % 7359463677) SV(MOD-sp4) (test code = 56.40 mL 1474694052) SV(sp4-el) (test code = 59.90 mL 2050078767) LV Diastolic Volume (BP) 106.7 mL (test code = 0487275833) A2C EF (test code = 57.20 % 6436831628) EF(MOD-bp) (test code = 53.70 % 3947674309) EF(sp2-el) (test code = 59.80 % 4635384012) LV Systolic Volume (BP) 49.4 mL (test code = 8838159016) SV(MOD-bp) (test code = 57.20 mL 2017570239) SV(MOD-sp2) (test code = 59.40 mL 3901511244) EF (test code = 54 6982788668) Left Ventricular Stroke 57.2 mL Volume by 2-D Biplane-MOD (test code = 5189688) LV Diastolic Volume 59.6 mL/m2 Index (BP) (test code = 3615124885) LV Systolic Volume Index 27.6 mL/m2 (BP) (test code = 0261844796) Radiology Study observation (narrative) (test code = 08413-0) SILVINA (test code = SILVINA) ?Left?Ventricle: Left [...] mL of Optison ultrasound enhancing agent used. [facility] (NA, K, CL, CO2, GLUCOSE, BUN, CREATININE, CA)2022-08-19 11:22:15 Test Item Value Reference Range Interpretation Comments NA (test code = 138 mmol/L 135-145 9482198771) K (test code = 3.8 mmol/L 3.5-5.0 2315436309) CL (test code = 107 mmol/L 98-108 7128088627) CO2 TOTAL (test code 24 mmol/L 23-31 = 5597761598) AGAP (test code = 7 2-16 5117383278) BUN (test code = 16 mg/dL 7-23 3571686723) GLUCOSE (test code = 108 mg/dL 70-110 6958521465) CREATININE (test code 0.51 mg/dL 0.50-1.04 = 8380248317) CALCIUM (test code = 8.6 mg/dL 8.6-10.6 6124333294) eGFR (test code = 125.7 mL/min/1.73m2 9058257224) SILVINA (test code = SILVINA) Association of [...] or urine or abnormalities in imaging tests). [facility] / [id number] 11:11:34 Test Item Value Reference Range Interpretation Comments PROTIME PATIENT (test 12.5 See_Comment [Auto mated message] code = 5964-2) The system [employer] generated this result transmitted ref erence range: 10.1 - 1 2.6 Seconds. The re ference range was not u sed to interpret this result as normal/abnor mal. INR (test code = 6301-6) 1.1 Nor mal INR <1.1; Warfarin Therap eutic range 2.0 to 3. 0 or 2.5 to 3.5, dep ending upon the indica tions. Lab Interpretation (test Normal code = 11848-7) [facility] / [id number] 11:11:34 Test Item Value Reference Range Interpretation Comments PROTIME PATIENT (test 12.5 See_Comment [Auto mated message] code = 5964-2) The system [employer] generated this result transmitted ref erence range: 10.1 - 1 2.6 Seconds. The re ference range was not u sed to interpret this result as normal/abnor mal. INR (test code = 6301-6) 1.1 Nor mal INR <1.1; Warfarin Therap eutic range 2.0 to 3. 0 or 2.5 to 3.5, dep ending upon the indica tions. Lab Interpretation (test Normal code = 86955-8) [facility] WITH [id number] 11:10:54 Test Item Value Reference Range Interpretation [...] RDW-SD (test code = 43.4 fL 39.0-49.9 25504-9) RDW-CV (test code = 14.5 % 12.0-15.5 788-0) PLT (test code = 151 See_Comment L [Automated 777-3) message] The sy stem which generated this result transmitted reference range : 166 - 358 10*3/ ?L. The reference r quynh was not used to interpret this result as normal/abnormal . MPV (test code = 11.9 fL 9.5-12.9 78926-1) NRBC/100 WBC (test 0.0 See_Comment [Automat ed code = 6240758125) message] The system which generated this result transmitted reference range : 0.0 - 10.0 /100 WBCs. The refer ence range was not u sed to interpret th is result as normal/abnormal . NRBC x10^3 (test code See_Comment [Auto mated = 4265232701) message] The s ystem which generated this result transmitted reference range : 10*3/?L. The reference range was not used to interpret this result as normal/abnormal . GRAN MAT (NEUT) % 58.5 % (test code = 770-8) IMM GRAN % (test code 0.20 % = 3421575112) LYMPH % (test code = 36.7 % 736-9) MONO % (test code = 1.2 % 5905-5) EOS % (test code = 3.0 % 713-8) BASO % (test code = 0.4 % 706-2) GRAN MAT x10^3(ANC) 2.97 10*3/uL 1.88-7.09 (test code = 3691059652) IMM GRAN x10^3 (test 0.00-0.06 code = 2190919778) LYMPH x10^3 (test code 1.86 10*3/uL 1.32-3.29 = 731-0) MONO x10^3 (test code 0.06 10*3/uL 0.33-0.92 L = 742-7) EOS x10^3 (test code = 0.15 10*3/uL 0.03-0.39 711-2) BASO x10^3 (test code 0.01-0.07 = 704-7) Lab Interpretation Abnormal (test code = 78988-8) [facility] (A1C)2022-08-18 19:27:31 Test Item Value Reference Range Interpretation Comments HGB A1C (test code = 5.8 % 4.0-5.7 H 4548-4) SILVINA (test code = SILVINA) Reference RangesNormal: <5.7%Prediabetes: 5.7 - 6.4%Diabetes: > 6.5% Lab Interpretation (test Abnormal code = 89376-0) [facility] (A1C)2022-08-18 19:27:31 Test Item Value Reference Range Interpretation Comments HGB A1C (test code = 5.8 % 4.0-5.7 H 4548-4) SILVINA (test code = SILVINA) Reference RangesNormal: <5.7%Prediabetes: 5.7 - 6.4%Diabetes: > 6.5% Lab Interpretation (test Abnormal code = 11927-7) [facility] (NA, K, CL, CO2, GLUCOSE, BUN, CREATININE, CA)2022-08-18 10:52:29 Test Item Value Reference Range Interpretation Comments NA (test code = 140 mmol/L 135-145 5225839526) K (test code = 4.0 mmol/L 3.5-5.0 Slight 4093227338) hemolysis CL (test code = 111 mmol/L 98-108 H 0004750465) CO2 TOTAL (test code 20 mmol/L 23-31 L = 0687268457) AGAP (test code = 9 2-16 5781390643) BUN (test code = 17 mg/dL 7-23 Slight 7635577659) hemolysis GLUCOSE (test code = 105 mg/dL 70-110 7611867350) CREATININE (test code 0.48 mg/dL 0.50-1.04 L = 9273325006) CALCIUM (test code = 8.6 mg/dL 8.6-10.6 6043971161) eGFR (test code = 134.8 mL/min/1.73m2 8528497610) SILVINA (test code = SILVINA) Association of [...] tests). Lab Interpretation Abnormal (test code = 31871-2) [facility] 10:52:29 Test Item Value Reference Range Interpretation Comments MAGNESIUM (test code = 4173853707) 2.1 mg/dL 1.7-2.4 Lab Interpretation (test code = Normal 07514-2) [facility] WITH [id number] 10:42:51 Test Item Value Reference Range Interpretation Comments WBC (test code = 5.34 See_Comment [Automated 6690-2) message] The sy stem which generated this result transmitted reference range : 4.30 - 11.10 10*3/?L. The reference range was not used to interpret this result as normal/abnormal . RBC (test code = 4.24 See_Comment [Automated 789-8) message] The sy stem [...] RDW-SD (test code = 44.3 fL 39.0-49.9 12446-8) RDW-CV (test code = 14.7 % 12.0-15.5 788-0) PLT (test code = 142 See_Comment L [Automated 777-3) message] The sy stem which generated this result transmitted reference range : 166 - 358 10*3/ ?L. The reference r quynh was not used to interpret this result as normal/abnormal . MPV (test code = 11.6 fL 9.5-12.9 56281-1) NRBC/100 WBC (test 0.0 See_Comment [Automat ed code = 1916012815) message] The system which generated this result transmitted reference range : 0.0 - 10.0 /100 WBCs. The refer ence range was not u sed to interpret th is result as normal/abnormal . NRBC x10^3 (test code See_Comment [Auto mated = 4759020579) message] The s ystem which generated this result transmitted reference range : 10*3/?L. The reference range was not used to interpret this result as normal/abnormal . GRAN MAT (NEUT) % 61.6 % (test code = 770-8) IMM GRAN % (test code 0.40 % = 9271834877) LYMPH % (test code = 33.5 % 736-9) MONO % (test code = 1.3 % 5905-5) EOS % (test code = 3.0 % 713-8) BASO % (test code = 0.2 % 706-2) GRAN MAT x10^3(ANC) 3.29 10*3/uL 1.88-7.09 (test code = 5654451649) IMM GRAN x10^3 (test 0.00-0.06 code = 4100727110) LYMPH x10^3 (test code 1.79 10*3/uL 1.32-3.29 = 731-0) MONO x10^3 (test code 0.07 10*3/uL 0.33-0.92 L = 742-7) EOS x10^3 (test code = 0.16 10*3/uL 0.03-0.39 711-2) BASO x10^3 (test code 0.01-0.07 = 704-7) Lab Interpretation Abnormal (test code = 35135-0) [facility] B12, [id number] 21:26:37 Test Item Value Reference Range Interpretation Comments VIT B12 (test code = 527 pg/mL 240-930 6444829509) SILVINA (test code = SILVINA) Biotin has been reported to cause a positive bias, interpret results relative to patient's use of biotin. Lab Interpretation (test Normal code = 62496-7) [facility]20[facility]18 21:26:37 Test Item Value Reference Range Interpretation Comments FOLATE SER (test code = 5300354154) 9.7 ng/mL 3.0-20.0 Lab Interpretation (test code = Normal 38845-4) [facility] B12, [id number] 21:26:37 Test Item Value Reference Range Interpretation Comments VIT B12 (test code = 527 pg/mL 240-930 6794716373) SILVINA (test code = SILVINA) Biotin has been reported to cause a positive bias, interpret results relative to patient's use of biotin. Lab Interpretation (test Normal code = 34738-4) [facility]20[facility]18 21:26:37 Test Item Value Reference Range Interpretation Comments FOLATE SER (test code = 0634347616) 9.7 ng/mL 3.0-20.0 Lab Interpretation (test code = Normal 96768-5) [facility] TaylorProthrombin Time / [id number] 10:08:12 Test Item Value Reference Range Interpretation Comments PROTIME PATIENT (test 12.6 See_Comment [Auto mated message] code = 5964-2) The system [employer] generated this result transmitted ref erence range: 10.1 - 1 2.6 Seconds. The re ference range was not u sed to interpret this result as normal/abnor mal. INR (test code = 6301-6) 1.1 Nor mal INR <1.1; Warfarin Therap eutic range 2.0 to 3. 0 or 2.5 to 3.5, dep ending upon the indica tions. Lab Interpretation (test Normal code = 60069-9) [facility] TayloraPTT2023-02-18 10:08:12 Test Item Value Reference Range Interpretation Comments APTT Patient (test code = 32 See_Comment [ Automated message] 8243-2) The system [employer] generated this result transmitted ref erence range: 26 - 36 Seconds. The re ference range was not u sed to interpret this result as normal/abnor mal. Lab Interpretation (test Normal code = 27908-8) [facility] TayloraPTT2023-02-18 10:08:12 Test Item Value Reference Range Interpretation Comments APTT Patient (test code = 32 See_Comment [ Automated message] 3173-2) The system [employer] generated this result transmitted ref erence range: 26 - 36 Seconds. The re ference range was not u sed to interpret this result as normal/abnor mal. Lab Interpretation (test Normal code = 02583-1) [facility] WITHOUT [id number] 09:55:37 Test Item Value Reference Range Interpretation Comments WBC (test code = 8.08 See_Comment [Automated message] 6690-2) The system [employer] generated this result transmitted ref erence range: 4.30 - 1 1.10 10*3/?L. The reference range was not used to int erpret this result as normal/abnormal . RBC (test code = 789-8) 4.29 See_Comment [Au tomated message] The system [employer] generated this result transmitted ref erence range: [...] See_Comment L [Au tomated message] The system [employer] generated this result transmitted ref erence range: 166 - 35 8 10*3/?L. The reference range was not used to int erpret this result as normal/abnormal . MPV (test code = 11.8 fL 9.5-12.9 84245-7) RDW-CV (test code = 14.8 % 12.0-15.5 788-0) RDW-SD (test code = 44.6 fL 39.0-49.9 85981-7) NRBC x10^3 (test code = See_Comment [Au tomated message] 7178692811) The system [employer] generated this result transmitted ref erence range: 10*3/?L. The reference range was not used to int erpret this result as normal/abnormal . NRBC/100 WBC (test code 0.0 See_Comment [Au tomated message] = 4507551338) The system [employer] generated this result transmitted ref erence range: 0.0 - 10 .0 /100 WBCs. The reference range was not used to int erpret this result as normal/abnormal . IPF % (test code = 10.2 % 1.3-7.7 H Platelet count 2315081223) measured by fluorescence me thod. Lab Interpretation Abnormal (test code = 48581-4) [facility] WITHOUT [id number] 09:55:37 Test Item Value Reference Range Interpretation Comments WBC (test code = 8.08 See_Comment [Automated message] 6690-2) The system [employer] generated this result transmitted ref erence range: 4.30 - 1 1.10 10*3/?L. The reference range was not used to int erpret this result as normal/abnormal . RBC (test code = 789-8) 4.29 See_Comment [Au tomated message] The system [employer] generated this result transmitted ref erence range: [...] See_Comment L [Au tomated message] The system [employer] generated this result transmitted ref erence range: 166 - 35 8 10*3/?L. The reference range was not used to int erpret this result as normal/abnormal . MPV (test code = 11.8 fL 9.5-12.9 94775-8) RDW-CV (test code = 14.8 % 12.0-15.5 788-0) RDW-SD (test code = 44.6 fL 39.0-49.9 87203-3) NRBC x10^3 (test code = See_Comment [Au tomated message] 6914514723) The system [employer] generated this result transmitted ref erence range: 10*3/?L. The reference range was not used to int erpret this result as normal/abnormal . NRBC/100 WBC (test code 0.0 See_Comment [Au tomated message] = 7926321121) The system [employer] generated this result transmitted ref erence range: 0.0 - 10 .0 /100 WBCs. The reference range was not used to int erpret this result as normal/abnormal . IPF % (test code = 10.2 % 1.3-7.7 H Platelet count 5214309462) measured by fluorescence me thod. Lab Interpretation Abnormal (test code = 26732-4) [facility] METABOLIC PANEL (NA, K, CL, CO2, GLUCOSE, BUN, CREATININE, CA)2022-08-17 09:51:50 Test Item Value Reference Range Interpretation Comments NA (test code = 141 mmol/L 135-145 9549921666) K (test code = 3.3 mmol/L 3.5-5.0 L 7372992552) CL (test code = 111 mmol/L 98-108 H 9864598052) CO2 TOTAL (test code = 24 mmol/L 23-31 7566461112) AGAP (test code = 6 2-16 4631352535) BUN (test code = 20 mg/dL 7-23 5804049064) GLUCOSE (test code = 99 mg/dL 70-110 1567673781) CREATININE (test code = 0.56 mg/dL 0.50-1.04 4317781840) CALCIUM (test code = 8.9 mg/dL 8.6-10.6 7145163741) eGFR (test code = 112.8 mL/min/1.73m2 3385914234) SILVINA (test code = SILVINA) Association of [...] tests). Lab Interpretation Abnormal (test code = 28507-6) [facility]-18 09:51:50 Test Item Value Reference Range Interpretation Comments MAGNESIUM (test code = 8021198921) 2.1 mg/dL 1.7-2.4 Lab Interpretation (test code = Normal 57223-6) [facility] TaylorLACTATE WQGWEOOLZAFUE7942-23-14 09:50:29 Test Item Value Reference Range Interpretation Comments LDH (test code = 2898907035) 154 U/L 120-246 Lab Interpretation (test code = Normal 35183-6) [facility] TaylorLACTATE XNDVAMUMNKTAS9880-10-83 09:50:29 Test Item Value Reference Range Interpretation Comments LDH (test code = 8287156809) 154 U/L 120-246 Lab Interpretation (test code = Normal 16265-5) [facility] TaylorTROPONIN [id number] 17:36:19 Test Item Value Reference Interpretation Comments Range TROPONIN I (test 0.002 ng/mL See_Comment [Automated code = 8255993938) message] The system which generated this result [...] biotin. Lab Interpretation Normal (test code = 28867-6) [facility] TaylorN-TERMINAL [id number]-[id number] 17:36:19 Test Item Value Reference Range Interpretation Comments NT-proBNP (test code 76 pg/mL See_Comment [Autom ated = 7178886810) message] The system which generated this result transmitted reference range : <=125. The reference range was not used to interpret this result as normal/abnormal . SILVINA (test code = SILVINA) Biotin has been reported to cause a negative bias, interpret results relative to patient's use of biotin. Lab Interpretation Normal (test code = 89335-2) [facility] [id number] 17:36:19 Test Item Value Reference Range Interpretation Comments TROPONIN I (test code = 0.002 ng/mL <=0.034 7555857750) SILVINA (test code = SILVINA) Reference (Normal) [...] biotin. Lab Interpretation Normal (test code = 75421-1) [facility] TaylorN-TERMINAL FWF-[id number] 17:36:19 Test Item Value Reference Range Interpretation Comments NT-proBNP (test code = 76 pg/mL <=125 4485540160) SILVINA (test code = SILVINA) Biotin has been reported to cause a negative bias, interpret results relative to patient's use of biotin. Lab Interpretation (test Normal code = 09263-4) [facility] TaylorACTIVATED PARTIAL THRMPLAS [id number] 17:32:19 Test Item Value Reference Range Interpretation Comments APTT Patient (test code See_Comment H [Au tomated message] = 3173-2) The system [employer] generated this result transmitted ref erence range: 26 - 36 Seconds. The reference range was not used to int erpret this result as normal/abnormal . Lab Interpretation (test Abnormal code = 72980-5) [facility] TaylorPROTHROMBIN TIME / [id number] 17:32:19 Test Item Value Reference Range Interpretation Comments PROTIME PATIENT (test See_Comment H [Auto mated message] code = 5964-2) The system [employer] generated this result transmitted ref erence range: 10.1 - 1 2.6 Seconds. The reference range was not used to int erpret this result as normal/abnormal . INR (test code = 6301-6) Nor mal INR <1.1; Warfarin Therap eutic range 2.0 to 3. 0 or 2.5 to 3.5, dep ending upon the indica tions. Lab Interpretation (test Abnormal code = 96666-3) [facility] TaylorCOMP. METABOLIC PANEL (02329)2022-06-04 17:24:59 Test Item Value Reference Range Interpretation Comments NA (test code = 140 mmol/L 135-145 5838247842) K (test code = 4.1 mmol/L 3.5-5.0 0331602549) CL (test code = 104 mmol/L 98-108 4277903011) CO2 TOTAL (test code 29 mmol/L 23-31 = 1294975952) AGAP (test code = 2-16 0068222247) BUN (test code = 10 mg/dL 7-23 8264861849) GLUCOSE (test code = 103 mg/dL 70-110 9121482377) CREATININE (test code 0.64 mg/dL 0.50-1.04 = 4270611729) TOTAL BILI (test code 0.4 mg/dL 0.1-1.1 = 5281453647) CALCIUM (test code = 9.3 mg/dL 8.6-10.6 5627745007) T PROTEIN (test code 7.1 g/dL 6.3-8.2 = 8335882128) ALBUMIN (test code = 4.2 g/dL 3.5-5.0 9171142558) ALK PHOS (test code = 99 U/L 34-122 3902176816) ALTv (test code = 30 U/L 5-35 1742-6) AST(SGOT) (test code 24 U/L 13-40 = 4434560971) eGFR (test code = mL/min/1.73m2 8876151154) SILVINA (test code = SILVINA) Association of [...] or urine or abnormalities in imaging tests). [facility] WITH [id number] 17:20:38 Test Item Value Reference Range Interpretation [...] (test code = 52.7 fL 39.0-49.9 H 73229-2) RDW-CV (test code = 17.2 % 12.0-15.5 H 788-0) PLT (test code = See_Comment [Automated 777-3) message] The sy stem which generated this result transmitted reference range : 166 - 358 10*3/ ?L. The reference r quynh was not used to interpret this result as normal/abnormal . MPV (test code = 10.5 fL 9.5-12.9 20795-2) NRBC/100 WBC (test See_Comment [Automat ed code = 0706872933) message] The system which generated this result transmitted reference range : 0.0 - 10.0 /100 WBCs. The refer ence range was not u sed to interpret th is result as normal/abnormal . NRBC x10^3 (test code See_Comment [Auto mated = 3683663053) message] The s ystem which generated this result transmitted reference range : 10*3/?L. The reference range was not used to interpret this result as normal/abnormal . GRAN MAT (NEUT) % 57.1 % (test code = 770-8) IMM GRAN % (test code 0.50 % = 1201417747) LYMPH % (test code = 28.4 % 736-9) MONO % (test code = 6.2 % 5905-5) EOS % (test code = 6.8 % 713-8) BASO % (test code = 1.0 % 706-2) GRAN MAT x10^3(ANC) 4.73 10*3/uL 1.88-7.09 (test code = 3020995630) IMM GRAN x10^3 (test 0.04 10*3/uL 0.00-0.06 code = 4284082130) LYMPH x10^3 (test code 2.35 10*3/uL 1.32-3.29 = 731-0) MONO x10^3 (test code 0.51 10*3/uL 0.33-0.92 = 742-7) EOS x10^3 (test code = 0.56 10*3/uL 0.03-0.39 H 711-2) BASO x10^3 (test code 0.08 10*3/uL 0.01-0.07 H = 704-7) Lab Interpretation Abnormal (test code = 40255-7) [facility]2022-[facility]-26 11:43:00 Test Item Value Reference Range Interpretation Comments Glucose Lvl (test code = Glucose Lvl) 93 70-[address] [facility] CenterXtriqmhLDUDHFCXE7166-70-13 11:43:00 Test Item Value Reference Range Interpretation Comments BUN (test code = BUN) 13 7-22 [place] 675862-10-26 11:43:00 Test Item Value Reference Range Interpretation Comments Creatinine Lvl (test code = Creatinine 0.62 0.50-1.40 Lvl) [facility] CenterHzoeawwOBBCSWHBX4933-23-70 11:43:00 Test Item Value Reference Range Interpretation Comments Sodium Lvl (test code = Sodium Lvl) 142 135-[address] [facility] CenterLvvmbphCODLZEZDZ1113-07-68 11:43:00 Test Item Value Reference Range Interpretation Comments Potassium Lvl (test code = Potassium 3.5 3.5-5.1 Lvl) [facility] CenterVdhedmpJZCHMVDAD8984-90-65 11:43:00 Test Item Value Reference Range Interpretation Comments Chloride Lvl (test code = Chloride Lvl) 109 95-109 [facility] HospitalIybyzsuYSFVRWJOD6743-50-19 11:43:00 Test Item Value Reference Range Interpretation Comments CO2 (test code = CO2) 26 24-32 [facility] HospitalDfvzcutWGQDYCWAC6160-28-34 11:43:00 Test Item Value Reference Range Interpretation Comments Calcium Lvl (test code = Calcium Lvl) 8.9 8.5-10.5 [facility] HospitalWxnlnqsSMRHNZPEZ6737-32-45 11:43:00 Test Item Value Reference Range Interpretation Comments Total Protein (test code = Total 6.5 6.4-8.4 Protein) [facility] CenterBomhrawZWOSJZFPE3483-76-30 11:43:00 Test Item Value Reference Range Interpretation Comments Albumin Lvl (test code = Albumin Lvl) 2.6 3.5-5.0 [facility] HospitalHrwtieuVDHYTATIK2471-81-11 11:43:00 Test Item Value Reference Range Interpretation Comments ALT (test code = ALT) 16 See_Comment [Auto mated message] The system which nerated this result transmit fabiano reference range : <=65. The reference range was not used to interpr et this result as aleks l/abnormal. [facility] HospitalQvfittrSGXDZTJZA0729-58-70 11:43:00 Test Item Value Reference Range Interpretation Comments AST (test code = AST) 8 See_Comment [Auto mated message] The system which ge nerated this result transmit fabiano reference range : <=37. The reference range was not used to interpr et this result as aleks l/abnormal. [facility] HospitalOzwyadiZCQYZMXDC1917-54-46 11:43:00 Test Item Value Reference Range Interpretation Comments Alk Phos (test code = Alk Phos) 93 39-136 [facility] HospitalKdtfugfZRCMDWALF5041-72-91 11:43:00 Test Item Value Reference Range Interpretation Comments Bili Total (test code = Bili Total) 0.3 0.2-1.3 [facility] HospitalPvoyevoYNKKRZTDO3162-83-38 11:43:00 Test Item Value Reference Range Interpretation Comments AGAP (test code = AGAP) 10.5 10.0-20.0 [facility] HospitalEhydqzpEHSXVLVRE0108-10-87 11:43:00 Test Item Value Reference Range Interpretation Comments B/C Ratio (test code = B/C Ratio) 21 1 6-25 [facility] HospitalHjoeihoQQSSXQIRU5018-01-52 11:43:00 Test Item Value Reference Range Interpretation Comments Globulin (test code = Globulin) 3.9 2.7-4.2 [place] [address]-10-26 11:43:00 Test Item Value Reference Range Interpretation Comments A/G Ratio (test code = A/G Ratio) 0.7 1 0.7-1.6 [place] [address]-10-26 11:43:00 Test Item Value Reference Range Interpretation Comments eGFR (test code = eGFR) 107 [place] 439852-10-26 11:43:00 Test Item Value Reference Range Interpretation Comments Segs (test code = Segs) 75.4 45.0-75.0 [place] [address]-10-26 11:43:00 Test Item Value Reference Range Interpretation Comments Lymphocytes (test code = Lymphocytes) 17.6 20.0-40.0 [place] [address]-10-26 11:43:00 Test Item Value Reference Range Interpretation Comments Monocytes (test code = Monocytes) 5.9 2.0-12.0 [place] [address]-10-26 11:43:00 Test Item Value Reference Range Interpretation Comments Eosinophils (test code = 0.5 See_Comment [A utomated message] The Eosinophils) system which ge nerated this result tra nsmitted reference range : <=4.0. The reference r quynh was not used to int erpret this result as normal/abnormal . [place] [address]-10-26 11:43:00 Test Item Value Reference Range Interpretation Comments Basophils (test code = 0.6 See_Comment [Aut omated message] The Basophils) system which ge nerated this result tra nsmitted reference range : <=1.0. The reference r quynh was not used to int erpret this result as normal/abnormal . [place] 439852-10-26 11:43:00 Test Item Value Reference Range Interpretation Comments Neutrophils # (test code = Neutrophils 8.1 1.5-8.1 #) [place] 439852-10-26 11:43:00 Test Item Value Reference Range Interpretation Comments Lymphocytes # (test code = Lymphocytes 1.9 1.0-5.5 #) [place] 439852-10-26 11:43:00 Test Item Value Reference Range Interpretation Comments Monocytes # (test code 0.6 See_Comment [Aut omated message] The = Monocytes #) system which generated this result tra nsmitted reference range : <=0.8. The reference r quynh was not used to int erpret this result as normal/abnormal . [facility] CenterSbtbpieRVRWTKQYCR7983-92-50 11:43:00 Test Item Value Reference Range Interpretation Comments Basophils # (test code 0.1 See_Comment [Aut omated message] The = Basophils #) system which generated this result tra nsmitted reference range : <=0.2. The reference r quynh was not used to int erpret this result as normal/abnormal . [facility] CenterYxiylcyNVRMQAPDUD1080-65-09 11:43:00 Test Item Value Reference Range Interpretation Comments Microcyte (test code = 1+ *ABN*(04/24/22 Microcyte) 6:43 AM) [place] [address]-10-26 11:43:00 Test Item Value Reference Range Interpretation Comments WBC (test code = WBC) 10.8 3.7-10.4 [place] 439852-10-26 11:43:00 Test Item Value Reference Range Interpretation Comments RBC (test code = RBC) 3.62 4.20-5.40 [place] 439852-10-26 11:43:00 Test Item Value Reference Range Interpretation Comments Hgb (test code = Hgb) 9.7 12.0-16.0 [place] 439852-10-26 11:43:00 Test Item Value Reference Range Interpretation Comments Hct (test code = Hct) 28.6 36.0-48.0 [facility] CenterVqffiplDXOVSABEID3578-43-92 11:43:00 Test Item Value Reference Range Interpretation Comments MCV (test code = MCV) 78.9 80.0-98.0 [place] [address]-10-26 11:43:00 Test Item Value Reference Range Interpretation Comments MCH (test code = MCH) 26.9 pg 27.0-31.0 [facility] CenterGfabqstOZLLUJBYXV3276-36-88 11:43:00 Test Item Value Reference Range Interpretation Comments MCHC (test code = MCHC) 34.1 32.0-36.0 [facility] CenterThwcnyaVROYWUNOXO4804-64-80 11:43:00 Test Item Value Reference Range Interpretation Comments RDW (test code = RDW) 16.3 11.5-14.5 [facility] CenterChhiehcJMWKDSFPKF5309-36-74 11:43:00 Test Item Value Reference Range Interpretation Comments Platelet (test code = Platelet) 242 133-450 [facility] CenterJcmruheFFXGFAVHDH8641-67-53 11:43:00 Test Item Value Reference Range Interpretation Comments MPV (test code = MPV) 8.7 7.4-10.[address] [facility] CenterBxiccsjEJNVOQICD3118-82-45 11:43:00 Test Item Value Reference Range Interpretation Comments Glucose Lvl (test code = Glucose Lvl) 93 70-[address] [facility] CenterAzrmxjhAHBIRAEVH9188-33-60 11:43:00 Test Item Value Reference Range Interpretation Comments BUN (test code = BUN) 13 7-[address] CenterJkrggtmODEEURITC6601-17-46 11:43:00 Test Item Value Reference Range Interpretation Comments Creatinine Lvl (test code = Creatinine 0.62 0.50-1.40 Lvl) [facility] CenterKsgedbtJDNHCCAEQ6768-80-70 11:43:00 Test Item Value Reference Range Interpretation Comments Sodium Lvl (test code = Sodium Lvl) 142 135-[address] [facility] CenterBgjowsfJDYTXATOY8756-79-41 11:43:00 Test Item Value Reference Range Interpretation Comments Potassium Lvl (test code = Potassium 3.5 3.5-5.1 Lvl) [facility] CenterEqfjzsmTIJALHOVI8171-12-61 11:43:00 Test Item Value Reference Range Interpretation Comments Chloride Lvl (test code = Chloride Lvl) 109 95-[address] [facility] CenterCbafenkQHQELOUUY0351-34-42 11:43:00 Test Item Value Reference Range Interpretation Comments CO2 (test code = CO2) -[address] [facility] CenterMpumerlSRWYRWLHK2512-01-61 11:43:00 Test Item Value Reference Range Interpretation Comments Calcium Lvl (test code = Calcium Lvl) 8.9 8.5-10.[address] [facility] CenterNgbybmjMOTPIGZCL7385-75-08 11:43:00 Test Item Value Reference Range Interpretation Comments Total Protein (test code = Total 6.5 6.4-8.4 Protein) [facility] CenterYuugazsSIIYWAEHW4930-59-45 11:43:00 Test Item Value Reference Range Interpretation Comments Albumin Lvl (test code = Albumin Lvl) 2.6 3.5-5.[address] [facility] CenterHafqxbeYNIZCQBHC9406-26-54 11:43:00 Test Item Value Reference Range Interpretation Comments ALT (test code = ALT) 16 See_Comment [Auto mated message] The system which ge nerated this result transmit fabiano reference range : <=65. The reference range was not used to interpr et this result as aleks l/abnormal. [facility] HospitalDtuskyzJXYDUEBOG4559-38-84 11:43:00 Test Item Value Reference Range Interpretation Comments AST (test code = AST) 8 See_Comment [Auto mated message] The system which ge nerated this result transmit fabiano reference range : <=37. The reference range was not used to interpr et this result as aleks l/abnormal. [facility] RbnktswYZMFFLNFW7774-17-27 11:43:00 Test Item Value Reference Range Interpretation Comments Alk Phos (test code = Alk Phos) 93 39-136 [facility]JryseetNYIDBLBZL1060-56-74 11:43:00 Test Item Value Reference Range Interpretation Comments Bili Total (test code = Bili Total) 0.3 0.2-1.3 [facility] HospitalBthvfshZOLEWVDKS0195-15-34 11:43:00 Test Item Value Reference Range Interpretation Comments AGAP (test code = AGAP) 10.5 10.0-20.0 [facility] AdiawpdAFTDBTMVI3767-50-86 11:43:00 Test Item Value Reference Range Interpretation Comments B/C Ratio (test code = B/C Ratio) 21 1 6-25 [facility] HospitalKlnwveeCQBRQFENN1935-22-47 11:43:00 Test Item Value Reference Range Interpretation Comments Globulin (test code = Globulin) 3.9 2.7-4.2 [facility] HospitalWoizscpIDAKVMDZJ0947-84-23 11:43:00 Test Item Value Reference Range Interpretation Comments A/G Ratio (test code = A/G Ratio) 0.7 1 0.7-1.6 [facility] QlsohkiAFSWUBSBK0683-72-62 11:43:00 Test Item Value Reference Range Interpretation Comments eGFR (test code = eGFR) 107 [facility] HospitalIdgqvnmTNFZRMNHFJ9593-21-56 11:43:00 Test Item Value Reference Range Interpretation Comments Segs (test code = Segs) 75.4 45.0-75.0 [facility] KuvsvdiXLNIVMCWRE1370-96-30 11:43:00 Test Item Value Reference Range Interpretation Comments Lymphocytes (test code = Lymphocytes) 17.6 20.0-40.0 [place] [address]-10-26 11:43:00 Test Item Value Reference Range Interpretation Comments Monocytes (test code = Monocytes) 5.9 2.0-12.0 [place] [address]-10-26 11:43:00 Test Item Value Reference Range Interpretation Comments Eosinophils (test code = 0.5 See_Comment [A utomated message] The Eosinophils) system which ge nerated this result tra nsmitted reference range : <=4.0. The reference r quynh was not used to int erpret this result as normal/abnormal . [place] [address]-10-26 11:43:00 Test Item Value Reference Range Interpretation Comments Basophils (test code = 0.6 See_Comment [Aut omated message] The Basophils) system which ge nerated this result tra nsmitted reference range : <=1.0. The reference r quynh was not used to int erpret this result as normal/abnormal . [place] [address]-10-26 11:43:00 Test Item Value Reference Range Interpretation Comments Neutrophils # (test code = Neutrophils 8.1 1.5-8.1 #) [place] [address]-10-26 11:43:00 Test Item Value Reference Range Interpretation Comments Lymphocytes # (test code = Lymphocytes 1.9 1.0-5.5 #) [place] [address]-10-26 11:43:00 Test Item Value Reference Range Interpretation Comments Monocytes # (test code 0.6 See_Comment [Aut omated message] The = Monocytes #) system which generated this result tra nsmitted reference range : <=0.8. The reference r quynh was not used to int erpret this result as normal/abnormal . [place] [address]-10-26 11:43:00 Test Item Value Reference Range Interpretation Comments Basophils # (test code 0.1 See_Comment [Aut omated message] The = Basophils #) system which generated this result tra nsmitted reference range : <=0.2. The reference r quynh was not used to int erpret this result as normal/abnormal . [place] [address]-10-26 11:43:00 Test Item Value Reference Range Interpretation Comments Microcyte (test code = 1+ *ABN*(10/26/22 Microcyte) 6:43 AM) [facility] CenterEdbmhgiVRCJBTGCRY9305-97-21 11:43:00 Test Item Value Reference Range Interpretation Comments WBC (test code = WBC) 10.8 3.7-10.4 [facility] CenterAysiifjWQTZAHYJKW3467-62-87 11:43:00 Test Item Value Reference Range Interpretation Comments RBC (test code = RBC) 3.62 4.20-5.40 [place] 439852-10-26 11:43:00 Test Item Value Reference Range Interpretation Comments Hgb (test code = Hgb) 9.7 12.0-16.0 [facility] CenterErnubouKJZXWDRSBC7362-35-27 11:43:00 Test Item Value Reference Range Interpretation Comments Hct (test code = Hct) 28.6 36.0-48.0 [facility] CenterChvmvpfSTWIUCMJBG4021-78-73 11:43:00 Test Item Value Reference Range Interpretation Comments MCV (test code = MCV) 78.9 80.0-98.0 [place] 439852-10-26 11:43:00 Test Item Value Reference Range Interpretation Comments MCH (test code = MCH) 26.9 pg 27.0-31.0 [facility] CenterUfmtnehMMANGHTUUV8170-11-08 11:43:00 Test Item Value Reference Range Interpretation Comments MCHC (test code = MCHC) 34.1 32.0-36.0 [facility] CenterDzpxxceLPBEURJXQD7518-41-33 11:43:00 Test Item Value Reference Range Interpretation Comments RDW (test code = RDW) 16.3 11.5-14.5 [facility] CenterPsbgvaiDXJPDMREQB4524-56-47 11:43:00 Test Item Value Reference Range Interpretation Comments Platelet (test code = Platelet) 242 133-450 [facility] CenterWfmundmOTHJNWGRAS5944-90-71 11:43:00 Test Item Value Reference Range Interpretation Comments MPV (test code = MPV) 8.7 7.4-10.[address] [facility] CenterZlyhgpySLRACWQQE6320-53-42 11:43:00 Test Item Value Reference Range Interpretation Comments Glucose Lvl (test code = Glucose Lvl) 93 70-[address] [facility] CenterLsauzrlGOIPVIWVX8859-88-72 11:43:00 Test Item Value Reference Range Interpretation Comments BUN (test code = BUN) 13 - [facility] CenterUmkvrzgOSCIKDHSM5463-37-51 11:43:00 Test Item Value Reference Range Interpretation Comments Creatinine Lvl (test code = Creatinine 0.62 0.50-1.40 Lvl) [facility] CenterHtgbqixYCKJCHCGJ7863-99-49 11:43:00 Test Item Value Reference Range Interpretation Comments Sodium Lvl (test code = Sodium Lvl) 142 135-[address] [facility] [facility] CenterZuospznRIGKRVJJA5508-25-54 11:43:00 Test Item Value Reference Range Interpretation Comments Potassium Lvl (test code = Potassium 3.5 3.5-5.1 Lvl) [facility] CenterFvyuptuKRYWRBGIZ2587-25-40 11:43:00 Test Item Value Reference Range Interpretation Comments Chloride Lvl (test code = Chloride Lvl) 109 95-[address] [facility] CenterPloesegQPIMLAMEG7860-32-78 11:43:00 Test Item Value Reference Range Interpretation Comments CO2 (test code = CO2) 24-[address] [facility] CenterAvtceikYTYYEQOTH8193-76-60 11:43:00 Test Item Value Reference Range Interpretation Comments Calcium Lvl (test code = Calcium Lvl) 8.9 8.5-10.[address] [facility] CenterHtfhisjVXNJDSFAT7934-44-27 11:43:00 Test Item Value Reference Range Interpretation Comments Total Protein (test code = Total 6.5 6.4-8.4 Protein) [facility] CenterVboqmdbXERFYYFEZ9919-05-88 11:43:00 Test Item Value Reference Range Interpretation Comments Albumin Lvl (test code = Albumin Lvl) 2.6 3.5-5.[address] [facility] CenterYxhqvhwNCMXQUYHM2071-10-85 11:43:00 Test Item Value Reference Range Interpretation Comments ALT (test code = ALT) 16 See_Comment [Auto mated message] The system which nerated this result transmit fabiano reference range : <=65. The reference range was not used to interpr et this result as aleks l/abnormal. [facility] CenterMtmgtodUVHHMGBWS7801-04-96 11:43:00 Test Item Value Reference Range Interpretation Comments AST (test code = AST) 8 See_Comment [Auto mated message] The system which [employer] nerated this result transmit fabiano reference range : <=37. The reference range was not used to interpr et this result as aleks l/abnormal. [facility] CenterMnulvjzSAQSDKPQV9787-16-89 11:43:00 Test Item Value Reference Range Interpretation Comments Alk Phos (test code = Alk Phos) 93 39-136 [place] 675862-10-26 11:43:00 Test Item Value Reference Range Interpretation Comments Bili Total (test code = Bili Total) 0.3 0.2-1.3 [place] [address]-10-26 11:43:00 Test Item Value Reference Range Interpretation Comments AGAP (test code = AGAP) 10.5 10.0-20.0 [place] 675862-10-26 11:43:00 Test Item Value Reference Range Interpretation Comments B/C Ratio (test code = B/C Ratio) 21 1 6-25 [place] [address]-10-26 11:43:00 Test Item Value Reference Range Interpretation Comments Globulin (test code = Globulin) 3.9 2.7-4.2 [place] [address]-10-26 11:43:00 Test Item Value Reference Range Interpretation Comments A/G Ratio (test code = A/G Ratio) 0.7 1 0.7-1.6 [place] [address]-10-26 11:43:00 Test Item Value Reference Range Interpretation Comments eGFR (test code = eGFR) 107 [facility] CenterWfgyiawOSEXIUOVBQ8482-81-66 11:43:00 Test Item Value Reference Range Interpretation Comments Segs (test code = Segs) 75.4 45.0-75.0 [place] 439852-10-26 11:43:00 Test Item Value Reference Range Interpretation Comments Lymphocytes (test code = Lymphocytes) 17.6 20.0-40.0 [place] 439852-10-26 11:43:00 Test Item Value Reference Range Interpretation Comments Monocytes (test code = Monocytes) 5.9 2.0-12.0 [place] [address]-10-26 11:43:00 Test Item Value Reference Range Interpretation Comments Eosinophils (test code = 0.5 See_Comment [A utomated message] The Eosinophils) system which ge nerated this result tra nsmitted reference range : <=4.0. The reference r quynh was not used to int erpret this result as normal/abnormal . [place] 439852-10-26 11:43:00 Test Item Value Reference Range Interpretation Comments Basophils (test code = 0.6 See_Comment [Aut omated message] The Basophils) system which ge nerated this result tra nsmitted reference range : <=1.0. The reference r quynh was not used to int erpret this result as normal/abnormal . [place] 439852-10-26 11:43:00 Test Item Value Reference Range Interpretation Comments Neutrophils # (test code = Neutrophils 8.1 1.5-8.1 #) [place] [address]-10-26 11:43:00 Test Item Value Reference Range Interpretation Comments Lymphocytes # (test code = Lymphocytes 1.9 1.0-5.5 #) [place] 439852-10-26 11:43:00 Test Item Value Reference Range Interpretation Comments Monocytes # (test code 0.6 See_Comment [Aut omated message] The = Monocytes #) system which generated this result tra nsmitted reference range : <=0.8. The reference r quynh was not used to int erpret this result as normal/abnormal . [place] [address]-10-26 11:43:00 Test Item Value Reference Range Interpretation Comments Basophils # (test code 0.1 See_Comment [Aut omated message] The = Basophils #) system which generated this result tra nsmitted reference range : <=0.2. The reference r quynh was not used to int erpret this result as normal/abnormal . [place] [address]-10-26 11:43:00 Test Item Value Reference Range Interpretation Comments Microcyte (test code = 1+ *ABN*(04/24/22 Microcyte) 6:43 AM) [place] [address]-10-26 11:43:00 Test Item Value Reference Range Interpretation Comments WBC (test code = WBC) 10.8 3.7-10.4 [place] [address]-10-26 11:43:00 Test Item Value Reference Range Interpretation Comments RBC (test code = RBC) 3.62 4.20-5.40 [place] [address]-10-26 11:43:00 Test Item Value Reference Range Interpretation Comments Hgb (test code = Hgb) 9.7 12.0-16.0 [place] [address]-10-26 11:43:00 Test Item Value Reference Range Interpretation Comments Hct (test code = Hct) 28.6 36.0-48.0 [place] [address]-10-26 11:43:00 Test Item Value Reference Range Interpretation Comments MCV (test code = MCV) 78.9 80.0-98.0 [facility] CenterQcjzcyjYOTZDUNMIK7681-86-86 11:43:00 Test Item Value Reference Range Interpretation Comments MCH (test code = MCH) 26.9 pg 27.0-31.0 [facility] CenterPkxohsaQCAKOVIPBX0541-27-82 11:43:00 Test Item Value Reference Range Interpretation Comments MCHC (test code = MCHC) 34.1 32.0-36.0 [facility] CenterDefqcclZIEYOPAKCT1262-55-54 11:43:00 Test Item Value Reference Range Interpretation Comments RDW (test code = RDW) 16.3 11.5-14.5 [facility] CenterJqkqwtsOLYKVGUNWA3143-32-88 11:43:00 Test Item Value Reference Range Interpretation Comments Platelet (test code = Platelet) 242 935-450 [facility] CenterNpfwvmhBVUCEXOBVE1873-45-77 11:43:00 Test Item Value Reference Range Interpretation Comments MPV (test code = MPV) 8.7 7.4-10.[address] [facility] CenterTlogjzxTOKIRKSEK4637-52-93 11:43:00 Test Item Value Reference Range Interpretation Comments Glucose Lvl (test code = Glucose Lvl) 93 70-[address] [facility] CenterKosbgolXVKTIMFFY0615-23-84 11:43:00 Test Item Value Reference Range Interpretation Comments BUN (test code = BUN) 13 7-[address] [facility] CenterQyouxzjZNAOOTCSR9949-66-32 11:43:00 Test Item Value Reference Range Interpretation Comments Creatinine Lvl (test code = Creatinine 0.62 0.50-1.40 Lvl) [facility] CenterNyrekpoBFGCQFBSP5822-27-79 11:43:00 Test Item Value Reference Range Interpretation Comments Sodium Lvl (test code = Sodium Lvl) 142 135-[address] [facility] CenterKmvohcuRGEXXRCAI0392-26-20 11:43:00 Test Item Value Reference Range Interpretation Comments Potassium Lvl (test code = Potassium 3.5 3.5-5.1 Lvl) [facility] CenterHqpofvmFCILPZDIV5485-27-62 11:43:00 Test Item Value Reference Range Interpretation Comments Chloride Lvl (test code = Chloride Lvl) 109 95-[address] [facility] CenterVlbivclQSVGKVUOS9820-48-63 11:43:00 Test Item Value Reference Range Interpretation Comments CO2 (test code = CO2) 24-[address] [facility] CenterRttxpqsSOUGEJMWV7901-67-84 11:43:00 Test Item Value Reference Range Interpretation Comments Calcium Lvl (test code = Calcium Lvl) 8.9 8.5-10.5 [facility] HospitalLvpmegmUUIYFDNJI5546-61-78 11:43:00 Test Item Value Reference Range Interpretation Comments Total Protein (test code = Total 6.5 6.4-8.4 Protein) [facility] HospitalGppsoisTVQPSCRVT9650-88-31 11:43:00 Test Item Value Reference Range Interpretation Comments Albumin Lvl (test code = Albumin Lvl) 2.6 3.5-5.0 [facility] HospitalQgagbwsKILEFRNIJ3321-75-95 11:43:00 Test Item Value Reference Range Interpretation Comments ALT (test code = ALT) 16 See_Comment [Auto mated message] The system which ge nerated this result transmit fabiano reference range : <=65. The reference range was not used to interpr et this result as aleks l/abnormal. [facility] HospitalWitnsnwCIUJRYQZV7201-25-47 11:43:00 Test Item Value Reference Range Interpretation Comments AST (test code = AST) 8 See_Comment [Auto mated message] The system which ge nerated this result transmit fabiano reference range : <=37. The reference range was not used to interpr et this result as aleks l/abnormal. [facility] TgwiqnbRUHXCTACZ8468-43-83 11:43:00 Test Item Value Reference Range Interpretation Comments Alk Phos (test code = Alk Phos) 93 39-136 [facility] HospitalBnvvozoHSNBKOYZX6859-06-85 11:43:00 Test Item Value Reference Range Interpretation Comments Bili Total (test code = Bili Total) 0.3 0.2-1.3 [facility] HospitalVmkrprrWXGYYFVCS0385-30-44 11:43:00 Test Item Value Reference Range Interpretation Comments AGAP (test code = AGAP) 10.5 10.0-20.0 [facility] KdqtsrzXFSDPACXL0882-64-51 11:43:00 Test Item Value Reference Range Interpretation Comments B/C Ratio (test code = B/C Ratio) 21 1 6-25 [facility] HospitalUujqwxdNZHVOZRXQ8923-60-24 11:43:00 Test Item Value Reference Range Interpretation Comments Globulin (test code = Globulin) 3.9 2.7-4.2 [facility] HospitalYoxachmKNSMIZCZH9734-28-50 11:43:00 Test Item Value Reference Range Interpretation Comments A/G Ratio (test code = A/G Ratio) 0.7 1 0.7-1.6 [place] 675862-10-26 11:43:00 Test Item Value Reference Range Interpretation Comments eGFR (test code = eGFR) 107 [place] 439852-10-26 11:43:00 Test Item Value Reference Range Interpretation Comments Segs (test code = Segs) 75.4 45.0-75.0 [place] 439852-10-26 11:43:00 Test Item Value Reference Range Interpretation Comments Lymphocytes (test code = Lymphocytes) 17.6 20.0-40.0 [place] [address]-10-26 11:43:00 Test Item Value Reference Range Interpretation Comments Monocytes (test code = Monocytes) 5.9 2.0-12.0 [place] [address]-10-26 11:43:00 Test Item Value Reference Range Interpretation Comments Eosinophils (test code = 0.5 See_Comment [A utomated message] The Eosinophils) system which ge nerated this result tra nsmitted reference range : <=4.0. The reference r quynh was not used to int erpret this result as normal/abnormal . [place] 439852-10-26 11:43:00 Test Item Value Reference Range Interpretation Comments Basophils (test code = 0.6 See_Comment [Aut omated message] The Basophils) system which ge nerated this result tra nsmitted reference range : <=1.0. The reference r quynh was not used to int erpret this result as normal/abnormal . [place] 439852-10-26 11:43:00 Test Item Value Reference Range Interpretation Comments Neutrophils # (test code = Neutrophils 8.1 1.5-8.1 #) [place] [address]-10-26 11:43:00 Test Item Value Reference Range Interpretation Comments Lymphocytes # (test code = Lymphocytes 1.9 1.0-5.5 #) [place] [address]-10-26 11:43:00 Test Item Value Reference Range Interpretation Comments Monocytes # (test code 0.6 See_Comment [Aut omated message] The = Monocytes #) system which generated this result tra nsmitted reference range : <=0.8. The reference r quynh was not used to int erpret this result as normal/abnormal . [facility] CenterSzgzwdjICGJTULJIQ7573-58-62 11:43:00 Test Item Value Reference Range Interpretation Comments Basophils # (test code 0.1 See_Comment [Aut omated message] The = Basophils #) system which generated this result tra nsmitted reference range : <=0.2. The reference r quynh was not used to int erpret this result as normal/abnormal . [facility] CenterUqaejevMQPDBGWWPH3189-21-90 11:43:00 Test Item Value Reference Range Interpretation Comments Microcyte (test code = 1+ *ABN*(04/24/22 Microcyte) 6:43 AM) [facility] CenterDwfmelgTBEKQWHWFW5590-86-46 11:43:00 Test Item Value Reference Range Interpretation Comments WBC (test code = WBC) 10.8 3.7-10.4 [facility] CenterRyrksylCDISRIUTSZ2958-45-06 11:43:00 Test Item Value Reference Range Interpretation Comments RBC (test code = RBC) 3.62 4.20-5.40 [facility] CenterLnegpelTNRSPJLFGJ8697-57-64 11:43:00 Test Item Value Reference Range Interpretation Comments Hgb (test code = Hgb) 9.7 12.0-16.0 [facility] CenterVwqycmqRTJGJFANLJ0015-52-70 11:43:00 Test Item Value Reference Range Interpretation Comments Hct (test code = Hct) 28.6 36.0-48.0 [facility] CenterBehdxiqYGDQBQGKVS1456-88-67 11:43:00 Test Item Value Reference Range Interpretation Comments MCV (test code = MCV) 78.9 80.0-98.0 [facility] CenterMlexqigGXTZMJFFZS2183-26-00 11:43:00 Test Item Value Reference Range Interpretation Comments MCH (test code = MCH) 26.9 pg 27.0-31.0 [facility] CenterWudzozpAANJGONUWA6984-88-59 11:43:00 Test Item Value Reference Range Interpretation Comments MCHC (test code = MCHC) 34.1 32.0-36.0 [facility] CenterBxizitgHZYFKMNRSJ0491-19-28 11:43:00 Test Item Value Reference Range Interpretation Comments RDW (test code = RDW) 16.3 11.5-14.5 [facility] CenterOddrdnrTQNZJIHMUJ4101-34-80 11:43:00 Test Item Value Reference Range Interpretation Comments Platelet (test code = Platelet) 242 133-450 [place] 439852-10-26 11:43:00 Test Item Value Reference Range Interpretation Comments MPV (test code = MPV) 8.7 7.4-10.4 [place] 675862-10-26 11:43:00 Test Item Value Reference Range Interpretation Comments Glucose Lvl (test code = Glucose Lvl) 93 70-99 [place] 675862-10-26 11:43:00 Test Item Value Reference Range Interpretation Comments BUN (test code = BUN) 13 7-22 [place] 675862-10-26 11:43:00 Test Item Value Reference Range Interpretation Comments Creatinine Lvl (test code = Creatinine 0.62 0.50-1.40 Lvl) [facility] CenterYnnelmdPGUPAGDTP3002-79-43 11:43:00 Test Item Value Reference Range Interpretation Comments Sodium Lvl (test code = Sodium Lvl) 142 135-[address] [facility] CenterXfnohtcLRBOYWLBY4514-67-73 11:43:00 Test Item Value Reference Range Interpretation Comments Potassium Lvl (test code = Potassium 3.5 3.5-5.1 Lvl) [facility] CenterLxzdmfpFFIHXDVFR8482-11-39 11:43:00 Test Item Value Reference Range Interpretation Comments Chloride Lvl (test code = Chloride Lvl) 109 95-[address] [facility] CenterYmhodtwLKEYHCZNH9926-18-43 11:43:00 Test Item Value Reference Range Interpretation Comments CO2 (test code = CO2) 24-32 [place] 675862-10-26 11:43:00 Test Item Value Reference Range Interpretation Comments Calcium Lvl (test code = Calcium Lvl) 8.9 8.5-10.[address] [facility] CenterDhqzyseIHRSIIOWB1553-31-44 11:43:00 Test Item Value Reference Range Interpretation Comments Total Protein (test code = Total 6.5 6.4-8.4 Protein) [facility] CenterWgkahdjHZOQVDOMB2413-10-58 11:43:00 Test Item Value Reference Range Interpretation Comments Albumin Lvl (test code = Albumin Lvl) 2.6 3.5-5.[address] [facility] CenterWpdutpiGGVBWYNMB4441-32-06 11:43:00 Test Item Value Reference Range Interpretation Comments ALT (test code = ALT) 16 See_Comment [Auto mated message] The system which ge nerated this result transmit fabiano reference range : <=65. The reference range was not used to interpr et this result as aleks l/abnormal. [facility]LmmdskcTYZGSZRTF2367-59-33 11:43:00 Test Item Value Reference Range Interpretation Comments AST (test code = AST) 8 See_Comment [Auto mated message] The system which ge nerated this result transmit fabiano reference range : <=37. The reference range was not used to interpr et this result as aleks l/abnormal. [facility]GgvwgopSPFGISGMP9765[facility] 11:43:00 Test Item Value Reference Range Interpretation Comments Alk Phos (test code = Alk Phos) 93 39-[address] [facility] CenterWnrszwvQUCIAMERH2630-95-14 11:43:00 Test Item Value Reference Range Interpretation Comments Bili Total (test code = Bili Total) 0.3 0.2-1.3 [facility] HospitalFuifwlyYGVKWLLAR7383-82-37 11:43:00 Test Item Value Reference Range Interpretation Comments AGAP (test code = AGAP) 10.5 10.0-20.0 [facility] HospitalJpnpjrxLPYUCSFZG3416-57-81 11:43:00 Test Item Value Reference Range Interpretation Comments B/C Ratio (test code = B/C Ratio) 21 1 6-25 [facility] HospitalGqpncwwHGIWKLBQX3542-92-97 11:43:00 Test Item Value Reference Range Interpretation Comments Globulin (test code = Globulin) 3.9 2.7-4.[address] [facility] CenterJcrczymSBMASIUFX5377-53-73 11:43:00 Test Item Value Reference Range Interpretation Comments A/G Ratio (test code = A/G Ratio) 0.7 1 0.7-1.6 [facility] HospitalAkozcqeTHDCZKXPC4743-32-64 11:43:00 Test Item Value Reference Range Interpretation Comments eGFR (test code = eGFR) 107 [facility]QvkzewiHCABJEMVUC4378-93-39 11:43:00 Test Item Value Reference Range Interpretation Comments Segs (test code = Segs) 75.4 45.0-75.0 [facility]YmaoxcnHZGPDLLFEA0412-61-42 11:43:00 Test Item Value Reference Range Interpretation Comments Lymphocytes (test code = Lymphocytes) 17.6 20.0-40.0 [facility]LnnftwbNUXWWGXNMV2767-60-35 11:43:00 Test Item Value Reference Range Interpretation Comments Monocytes (test code = Monocytes) 5.9 2.0-12.0 [facility]CxayhxdDOPDFGQESS1488-98-78 11:43:00 Test Item Value Reference Range Interpretation Comments Eosinophils (test code = 0.5 See_Comment [A utomated message] The Eosinophils) system which ge nerated this result tra nsmitted reference range : <=4.0. The reference r quynh was not used to int erpret this result as normal/abnormal . [place] 439852-10-26 11:43:00 Test Item Value Reference Range Interpretation Comments Basophils (test code = 0.6 See_Comment [Aut omated message] The Basophils) system which ge nerated this result tra nsmitted reference range : <=1.0. The reference r quynh was not used to int erpret this result as normal/abnormal . [place] 439852-10-26 11:43:00 Test Item Value Reference Range Interpretation Comments Neutrophils # (test code = Neutrophils 8.1 1.5-8.1 #) [place] 439852-10-26 11:43:00 Test Item Value Reference Range Interpretation Comments Lymphocytes # (test code = Lymphocytes 1.9 1.0-5.5 #) [place] [address]-10-26 11:43:00 Test Item Value Reference Range Interpretation Comments Monocytes # (test code 0.6 See_Comment [Aut omated message] The = Monocytes #) system which generated this result tra nsmitted reference range : <=0.8. The reference r quynh was not used to int erpret this result as normal/abnormal . [place] [address]-10-26 11:43:00 Test Item Value Reference Range Interpretation Comments Basophils # (test code 0.1 See_Comment [Aut omated message] The = Basophils #) system which generated this result tra nsmitted reference range : <=0.2. The reference r quynh was not used to int erpret this result as normal/abnormal . [place] 439852-10-26 11:43:00 Test Item Value Reference Range Interpretation Comments Microcyte (test code = 1+ *ABN*(04/24/22 Microcyte) 6:43 AM) [place] [address]-10-26 11:43:00 Test Item Value Reference Range Interpretation Comments WBC (test code = WBC) 10.8 3.7-10.4 [place] [address]-10-26 11:43:00 Test Item Value Reference Range Interpretation Comments RBC (test code = RBC) 3.62 4.20-5.40 [facility] CenterOwukpwmLAORKDDLDP0720-68-99 11:43:00 Test Item Value Reference Range Interpretation Comments Hgb (test code = Hgb) 9.7 12.0-16.0 [place] 439852-10-26 11:43:00 Test Item Value Reference Range Interpretation Comments Hct (test code = Hct) 28.6 36.0-48.0 [facility] CenterVnorseiFIHQBLYGDG1140-60-93 11:43:00 Test Item Value Reference Range Interpretation Comments MCV (test code = MCV) 78.9 80.0-98.0 [facility] CenterBhdnecvHPBLSOFOYR2834-39-96 11:43:00 Test Item Value Reference Range Interpretation Comments MCH (test code = MCH) 26.9 pg 27.0-31.0 [facility] CenterElbbpgvBYBEAMDXUC6815-51-39 11:43:00 Test Item Value Reference Range Interpretation Comments MCHC (test code = MCHC) 34.1 32.0-36.0 [facility] CenterZaqrnwlFXRKVSIHAK8360-52-70 11:43:00 Test Item Value Reference Range Interpretation Comments RDW (test code = RDW) 16.3 11.5-14.5 [facility] CenterUwrbsxmSPCEVNEYBQ9184-16-96 11:43:00 Test Item Value Reference Range Interpretation Comments Platelet (test code = Platelet) 242 133-450 [facility] CenterJszfwamHLVSVHWNNI0986-76-56 11:43:00 Test Item Value Reference Range Interpretation Comments MPV (test code = MPV) 8.7 7.4-10.[address] [facility] CenterSvrglbqLBJMJBIZM3949-27-75 11:43:00 Test Item Value Reference Range Interpretation Comments Glucose Lvl (test code = Glucose Lvl) 93 70-[address] [facility] CenterNcsbxgzVNQDIWRJK6882-25-30 11:43:00 Test Item Value Reference Range Interpretation Comments BUN (test code = BUN) 13 7-[address] [facility] CenterBdzoiscXMLOHTPAZ9520-03-58 11:43:00 Test Item Value Reference Range Interpretation Comments Creatinine Lvl (test code = Creatinine 0.62 0.50-1.40 Lvl) [facility] CenterCyamymcJYMCEUFCV2351-34-83 11:43:00 Test Item Value Reference Range Interpretation Comments Sodium Lvl (test code = Sodium Lvl) 142 135-145 [facility]JbrhbzhLJRNDICJD8798-71-26 11:43:00 Test Item Value Reference Range Interpretation Comments Potassium Lvl (test code = Potassium 3.5 3.5-5.1 Lvl) [facility] CenterFvhhtweHZRZKYEAN8655-42-67 11:43:00 Test Item Value Reference Range Interpretation Comments Chloride Lvl (test code = Chloride Lvl) 109 95-109 [facility] HospitalDqwdbtgRQFGOCSAF4558-59-73 11:43:00 Test Item Value Reference Range Interpretation Comments CO2 (test code = CO2) 26 24-32 [place] [address]-10-26 11:43:00 Test Item Value Reference Range Interpretation Comments Calcium Lvl (test code = Calcium Lvl) 8.9 8.5-10.[address] [facility] CenterFgexbihIIHECQFYG4644-65-97 11:43:00 Test Item Value Reference Range Interpretation Comments Total Protein (test code = Total 6.5 6.4-8.4 Protein) [facility] CenterKxdtfotSVIKJHDQJ3404-56-03 11:43:00 Test Item Value Reference Range Interpretation Comments Albumin Lvl (test code = Albumin Lvl) 2.6 3.5-5.[address] [facility] CenterVztavmiZITGXUHGQ5357-02-86 11:43:00 Test Item Value Reference Range Interpretation Comments ALT (test code = ALT) 16 See_Comment [Auto mated message] The system which ge nerated this result transmit fabiano reference range : <=65. The reference range was not used to interpr et this result as aleks l/abnormal. [facility] CenterPlfmcmdNLKKMTDKD3107-78-52 11:43:00 Test Item Value Reference Range Interpretation Comments AST (test code = AST) 8 See_Comment [Auto mated message] The system which ge nerated this result transmit fabiano reference range : <=37. The reference range was not used to interpr et this result as aleks l/abnormal. [facility] HospitalIljpdmaBLFZUVEGQ4811-27-98 11:43:00 Test Item Value Reference Range Interpretation Comments Alk Phos (test code = Alk Phos) 93 39-[address] [facility] CenterIbpbtkfMGVONAYNB6238-48-37 11:43:00 Test Item Value Reference Range Interpretation Comments Bili Total (test code = Bili Total) 0.3 0.2-1.3 [place] 675862-10-26 11:43:00 Test Item Value Reference Range Interpretation Comments AGAP (test code = AGAP) 10.5 10.0-20.[address] [facility] CenterRqulgnsEDLTQMRYQ9663-06-72 11:43:00 Test Item Value Reference Range Interpretation Comments B/C Ratio (test code = B/C Ratio) 21 1 6-25 [place] [address]-10-26 11:43:00 Test Item Value Reference Range Interpretation Comments Globulin (test code = Globulin) 3.9 2.7-4.2 [place] 675862-10-26 11:43:00 Test Item Value Reference Range Interpretation Comments A/G Ratio (test code = A/G Ratio) 0.7 1 0.7-1.6 [place] 675862-10-26 11:43:00 Test Item Value Reference Range Interpretation Comments eGFR (test code = eGFR) 107 [facility] CenterWfjjsquTQNBZZDIDD3227-98-34 11:43:00 Test Item Value Reference Range Interpretation Comments Segs (test code = Segs) 75.4 45.0-75.0 [place] 439852-10-26 11:43:00 Test Item Value Reference Range Interpretation Comments Lymphocytes (test code = Lymphocytes) 17.6 20.0-40.0 [facility] CenterQfpkgjqNJIWGCLVBC3871-97-03 11:43:00 Test Item Value Reference Range Interpretation Comments Monocytes (test code = Monocytes) 5.9 2.0-12.0 [place] 439852-10-26 11:43:00 Test Item Value Reference Range Interpretation Comments Eosinophils (test code = 0.5 See_Comment [A utomated message] The Eosinophils) system which ge nerated this result tra nsmitted reference range : <=4.0. The reference r quynh was not used to int erpret this result as normal/abnormal . [facility] CenterVjfqlfuYZRROVLWXM8489-45-12 11:43:00 Test Item Value Reference Range Interpretation Comments Basophils (test code = 0.6 See_Comment [Aut omated message] The Basophils) system which ge nerated this result tra nsmitted reference range : <=1.0. The reference r quynh was not used to int erpret this result as normal/abnormal . [place] 439852-10-26 11:43:00 Test Item Value Reference Range Interpretation Comments Neutrophils # (test code = Neutrophils 8.1 1.5-8.1 #) [place] 439852-10-26 11:43:00 Test Item Value Reference Range Interpretation Comments Lymphocytes # (test code = Lymphocytes 1.9 1.0-5.5 #) [place] 439852-10-26 11:43:00 Test Item Value Reference Range Interpretation Comments Monocytes # (test code 0.6 See_Comment [Aut omated message] The = Monocytes #) system which generated this result tra nsmitted reference range : <=0.8. The reference r quynh was not used to int erpret this result as normal/abnormal . [place] 439852-10-26 11:43:00 Test Item Value Reference Range Interpretation Comments Basophils # (test code 0.1 See_Comment [Aut omated message] The = Basophils #) system which generated this result tra nsmitted reference range : <=0.2. The reference r quynh was not used to int erpret this result as normal/abnormal . [place] 439852-10-26 11:43:00 Test Item Value Reference Range Interpretation Comments Microcyte (test code = 1+ *ABN*(04/24/22 Microcyte) 6:43 AM) [place] [address]-10-26 11:43:00 Test Item Value Reference Range Interpretation Comments WBC (test code = WBC) 10.8 3.7-10.4 [place] [address]-10-26 11:43:00 Test Item Value Reference Range Interpretation Comments RBC (test code = RBC) 3.62 4.20-5.40 [place] [address]-10-26 11:43:00 Test Item Value Reference Range Interpretation Comments Hgb (test code = Hgb) 9.7 12.0-16.0 [place] [address]-10-26 11:43:00 Test Item Value Reference Range Interpretation Comments Hct (test code = Hct) 28.6 36.0-48.0 [place] [address]-10-26 11:43:00 Test Item Value Reference Range Interpretation Comments MCV (test code = MCV) 78.9 80.0-98.0 [place] [address]-10-26 11:43:00 Test Item Value Reference Range Interpretation Comments MCH (test code = MCH) 26.9 pg 27.0-31.0 [facility] CenterQzqhtyqKYYJASZENH9137-15-69 11:43:00 Test Item Value Reference Range Interpretation Comments MCHC (test code = MCHC) 34.1 32.0-36.0 [facility] CenterVbgfwuwVSSTTAPLXJ6282-32-96 11:43:00 Test Item Value Reference Range Interpretation Comments RDW (test code = RDW) 16.3 11.5-14.5 [place] 439852-10-26 11:43:00 Test Item Value Reference Range Interpretation Comments Platelet (test code = Platelet) 242 133-450 [facility] CenterZhycowcMIMVIZGWLK8118-56-83 11:43:00 Test Item Value Reference Range Interpretation Comments MPV (test code = MPV) 8.7 7.4-10.[address] [facility] CenterMxoqzkiWLLOIINUC5652-53-59 11:43:00 Test Item Value Reference Range Interpretation Comments Glucose Lvl (test code = Glucose Lvl) 93 70-[address] CenterLyecxrzUGVTPVCLU8678-18-43 11:43:00 Test Item Value Reference Range Interpretation Comments BUN (test code = BUN) 13 -[address] [facility] CenterBuvaazrTHASBTDIL2905-34-12 11:43:00 Test Item Value Reference Range Interpretation Comments Creatinine Lvl (test code = Creatinine 0.62 0.50-1.40 Lvl) [facility] CenterCvuiajxMQQSAIGUA7702-11-23 11:43:00 Test Item Value Reference Range Interpretation Comments Sodium Lvl (test code = Sodium Lvl) 142 135-[address] [facility] CenterAwhvwqkLKNDTTLIP4068-75-43 11:43:00 Test Item Value Reference Range Interpretation Comments Potassium Lvl (test code = Potassium 3.5 3.5-5.1 Lvl) [facility] CenterXivirxkFTZNPIIDK0214-60-46 11:43:00 Test Item Value Reference Range Interpretation Comments Chloride Lvl (test code = Chloride Lvl) 109 95-[address] [facility] CenterRcwbuoaCWWZEWGYD6478-90-11 11:43:00 Test Item Value Reference Range Interpretation Comments CO2 (test code = CO2) - [facility] CenterNofvzkcLWQMJVEFJ6079-62-55 11:43:00 Test Item Value Reference Range Interpretation Comments Calcium Lvl (test code = Calcium Lvl) 8.9 8.5-10.[address] [facility] CenterBnqdznlJBSGLFACX0160-25-50 11:43:00 Test Item Value Reference Range Interpretation Comments Total Protein (test code = Total 6.5 6.4-8.4 Protein) [facility] CenterNerbfndYVLXSLIPU6181-42-91 11:43:00 Test Item Value Reference Range Interpretation Comments Albumin Lvl (test code = Albumin Lvl) 2.6 3.5-5.[address] [facility] CenterRfcswknIMQQXFHIY5865-64-85 11:43:00 Test Item Value Reference Range Interpretation Comments ALT (test code = ALT) 16 See_Comment [Auto mated message] The system which ge nerated this result transmit fabiano reference range : <=65. The reference range was not used to interpr et this result as aleks l/abnormal. [facility] HospitalOvjmzcpHHFQYMZEM0737-49-67 11:43:00 Test Item Value Reference Range Interpretation Comments AST (test code = AST) 8 See_Comment [Auto mated message] The system which ge nerated this result transmit fabiano reference range : <=37. The reference range was not used to interpr et this result as aleks l/abnormal. [facility] HospitalHymuuwjQHTQIWEKX6959-54-70 11:43:00 Test Item Value Reference Range Interpretation Comments Alk Phos (test code = Alk Phos) 93 39-[address] [facility] CenterLdjcpllGYOVWPICL3812-47-53 11:43:00 Test Item Value Reference Range Interpretation Comments Bili Total (test code = Bili Total) 0.3 0.2-1.[address] [facility] CenterRnmeidrHZJQAOBYL6991-37-48 11:43:00 Test Item Value Reference Range Interpretation Comments AGAP (test code = AGAP) 10.5 10.0-20.0 [facility] HospitalFvgsjyfARTYEARPX8208-30-88 11:43:00 Test Item Value Reference Range Interpretation Comments B/C Ratio (test code = B/C Ratio) 21 1 6-[address] [facility] CenterNcebddkFEKRVQQNH7396-07-30 11:43:00 Test Item Value Reference Range Interpretation Comments Globulin (test code = Globulin) 3.9 2.7-4.[address] [facility] CenterUicncvrLGATRUFLD5114-02-12 11:43:00 Test Item Value Reference Range Interpretation Comments A/G Ratio (test code = A/G Ratio) 0.7 1 0.7-1.[address] CenterAngnxhyPGBXDDRDZ7254-43-18 11:43:00 Test Item Value Reference Range Interpretation Comments eGFR (test code = eGFR) 107 [place] [address]-10-26 11:43:00 Test Item Value Reference Range Interpretation Comments Segs (test code = Segs) 75.4 45.0-75.0 [place] [address]-10-26 11:43:00 Test Item Value Reference Range Interpretation Comments Lymphocytes (test code = Lymphocytes) 17.6 20.0-40.0 [place] [address]-10-26 11:43:00 Test Item Value Reference Range Interpretation Comments Monocytes (test code = Monocytes) 5.9 2.0-12.0 [address]10-26 11:43:00 Test Item Value Reference Range Interpretation Comments Eosinophils (test code = 0.5 See_Comment [A utomated message] The Eosinophils) system which ge nerated this result tra nsmitted reference range : <=4.0. The reference r quynh was not used to int erpret this result as normal/abnormal . [place] [address]-10-26 11:43:00 Test Item Value Reference Range Interpretation Comments Basophils (test code = 0.6 See_Comment [Aut omated message] The Basophils) system which ge nerated this result tra nsmitted reference range : <=1.0. The reference r quynh was not used to int erpret this result as normal/abnormal . [place] [address]-10-26 11:43:00 Test Item Value Reference Range Interpretation Comments Neutrophils # (test code = Neutrophils 8.1 1.5-8.1 #) [place] [address]-10-26 11:43:00 Test Item Value Reference Range Interpretation Comments Lymphocytes # (test code = Lymphocytes 1.9 1.0-5.5 #) [place] [address]-10-26 11:43:00 Test Item Value Reference Range Interpretation Comments Monocytes # (test code 0.6 See_Comment [Aut omated message] The = Monocytes #) system which generated this result tra nsmitted reference range : <=0.8. The reference r quynh was not used to int erpret this result as normal/abnormal . [place] [address]-10-26 11:43:00 Test Item Value Reference Range Interpretation Comments Basophils # (test code 0.1 See_Comment [Aut omated message] The = Basophils #) system which generated this result tra nsmitted reference range : <=0.2. The reference r quynh was not used to int erpret this result as normal/abnormal . [facility] CenterFfxudndFLFOSBSOCY6640-49-57 11:43:00 Test Item Value Reference Range Interpretation Comments Microcyte (test code = 1+ *ABN*(04/24/22 Microcyte) 6:43 AM) [facility] CenterByqebuiZRKGLPAOBY1659-61-72 11:43:00 Test Item Value Reference Range Interpretation Comments WBC (test code = WBC) 10.8 3.7-10.4 [facility] CenterPiephsaEBETQIAEHO0347-34-76 11:43:00 Test Item Value Reference Range Interpretation Comments RBC (test code = RBC) 3.62 4.20-5.40 [facility] CenterCjpkiixEEJSNTZJWF5743-36-87 11:43:00 Test Item Value Reference Range Interpretation Comments Hgb (test code = Hgb) 9.7 12.0-16.0 [place] 439852-10-26 11:43:00 Test Item Value Reference Range Interpretation Comments Hct (test code = Hct) 28.6 36.0-48.0 [facility] CenterJswxywnWRLQGAFINP4306-03-78 11:43:00 Test Item Value Reference Range Interpretation Comments MCV (test code = MCV) 78.9 80.0-98.0 [facility] CenterMmqxwbyZOGBRKWIYS4536-43-81 11:43:00 Test Item Value Reference Range Interpretation Comments MCH (test code = MCH) 26.9 pg 27.0-31.0 [facility] CenterNcijicsHMCCTITVVS8541-89-04 11:43:00 Test Item Value Reference Range Interpretation Comments MCHC (test code = MCHC) 34.1 32.0-36.0 [facility] CenterZiqssloEYTFILCIVX8494-87-93 11:43:00 Test Item Value Reference Range Interpretation Comments RDW (test code = RDW) 16.3 11.5-14.5 [facility] CenterChcogqrUKYVPTUVEM2844-08-73 11:43:00 Test Item Value Reference Range Interpretation Comments Platelet (test code = Platelet) 242 133-450 [facility] CenterBhnozbbQUUZNJNLRL5954-43-44 11:43:00 Test Item Value Reference Range Interpretation Comments MPV (test code = MPV) 8.7 7.4-10.[address] [facility] CenterEwywvffPLHHZSOKX5921-78-04 11:43:00 Test Item Value Reference Range Interpretation Comments Glucose Lvl (test code = Glucose Lvl) 93 70-[address] CenterNtizndxAIRSVQSJS0339-90-41 11:43:00 Test Item Value Reference Range Interpretation Comments BUN (test code = BUN) 13 7-[address] [facility] CenterVzluzkxPTFQCCWJS2955-25-18 11:43:00 Test Item Value Reference Range Interpretation Comments Creatinine Lvl (test code = Creatinine 0.62 0.50-1.40 Lvl) [facility] CenterLztjafiYMTKAYJBY0966-31-06 11:43:00 Test Item Value Reference Range Interpretation Comments Sodium Lvl (test code = Sodium Lvl) 142 135-145 [place] [address]-10-26 11:43:00 Test Item Value Reference Range Interpretation Comments Potassium Lvl (test code = Potassium 3.5 3.5-5.1 Lvl) [facility] CenterUxcryqtPTFTENJZA4607-86-82 11:43:00 Test Item Value Reference Range Interpretation Comments Chloride Lvl (test code = Chloride Lvl) 109 95-[address] [facility] CenterFtpslvvBHIEBKQOZ4025-59-73 11:43:00 Test Item Value Reference Range Interpretation Comments CO2 (test code = CO2) 24-[address] CenterWehhvdjQNVPWWKNE9489-21-77 11:43:00 Test Item Value Reference Range Interpretation Comments Calcium Lvl (test code = Calcium Lvl) 8.9 8.5-10.[address] [facility] CenterGeymchpRCECZQWZD9057-27-71 11:43:00 Test Item Value Reference Range Interpretation Comments Total Protein (test code = Total 6.5 6.4-8.4 Protein) [facility] CenterCmlzsvqRRCOBRNBE5666-67-13 11:43:00 Test Item Value Reference Range Interpretation Comments Albumin Lvl (test code = Albumin Lvl) 2.6 3.5-5.[address] [facility] CenterVtkahvvFSHNSXYSP5207-23-09 11:43:00 Test Item Value Reference Range Interpretation Comments ALT (test code = ALT) 16 See_Comment [Auto mated message] The system which ge nerated this result transmit fabiano reference range : <=65. The reference range was not used to interpr et this result as aleks l/abnormal. [facility] CenterBokiahvUQWTLIXDP5275-17-40 11:43:00 Test Item Value Reference Range Interpretation Comments AST (test code = AST) 8 See_Comment [Auto mated message] The system which ge nerated this result transmit fabiano reference range : <=37. The reference range was not used to interpr et this result as aleks l/abnormal. [facility] CenterIflnmldDDSVARYOR2644-10-39 11:43:00 Test Item Value Reference Range Interpretation Comments Alk Phos (test code = Alk Phos) 93 39-[address] [facility] CenterAbokzkeJNJIPEOPZ4278-48-72 11:43:00 Test Item Value Reference Range Interpretation Comments Bili Total (test code = Bili Total) 0.3 0.2-1.[address] [facility] CenterKleyxzfMKCSDVXKK8629-73-05 11:43:00 Test Item Value Reference Range Interpretation Comments AGAP (test code = AGAP) 10.5 10.0-20.[address] [facility] CenterGxxfegiGGNCGBAEL3184-37-39 11:43:00 Test Item Value Reference Range Interpretation Comments B/C Ratio (test code = B/C Ratio) 21 1 6-[address] CenterSxrnygpZPJLUIVFQ9982-58-07 11:43:00 Test Item Value Reference Range Interpretation Comments Globulin (test code = Globulin) 3.9 2.7-4.[address] [facility] CenterOkvtouaCBBRPCWIZ6368-93-04 11:43:00 Test Item Value Reference Range Interpretation Comments A/G Ratio (test code = A/G Ratio) 0.7 1 0.7-1.6 [place] 675862-10-26 11:43:00 Test Item Value Reference Range Interpretation Comments eGFR (test code = eGFR) 107 [facility] CenterKlggrkzAHLOSCOCTK8828-80-38 11:43:00 Test Item Value Reference Range Interpretation Comments Segs (test code = Segs) 75.4 45.0-75.0 [facility] CenterDcpiudqPDVHJRQSQJ5898-89-23 11:43:00 Test Item Value Reference Range Interpretation Comments Lymphocytes (test code = Lymphocytes) 17.6 20.0-40.0 [facility] CenterSjesaglRWVWXBCAWX0794-49-76 11:43:00 Test Item Value Reference Range Interpretation Comments Monocytes (test code = Monocytes) 5.9 2.0-12.0 [facility] CenterLnjijvoJCSDFGGQGZ5189-93-87 11:43:00 Test Item Value Reference Range Interpretation Comments Eosinophils (test code = 0.5 See_Comment [A utomated message] The Eosinophils) system which ge nerated this result tra nsmitted reference range : <=4.0. The reference r quynh was not used to int erpret this result as normal/abnormal . [place] 439852-10-26 11:43:00 Test Item Value Reference Range Interpretation Comments Basophils (test code = 0.6 See_Comment [Aut omated message] The Basophils) system which ge nerated this result tra nsmitted reference range : <=1.0. The reference r quynh was not used to int erpret this result as normal/abnormal . [facility] CenterQofanyaYLPSPYGHFE7002-65-21 11:43:00 Test Item Value Reference Range Interpretation Comments Neutrophils # (test code = Neutrophils 8.1 1.5-8.1 #) [facility] CenterGbgrwtrRMYPCGRITG2830-65-27 11:43:00 Test Item Value Reference Range Interpretation Comments Lymphocytes # (test code = Lymphocytes 1.9 1.0-5.5 #) [place] 439852-10-26 11:43:00 Test Item Value Reference Range Interpretation Comments Monocytes # (test code 0.6 See_Comment [Aut omated message] The = Monocytes #) system which generated this result tra nsmitted reference range : <=0.8. The reference r quynh was not used to int erpret this result as normal/abnormal . [place] 439852-10-26 11:43:00 Test Item Value Reference Range Interpretation Comments Basophils # (test code 0.1 See_Comment [Aut omated message] The = Basophils #) system which generated this result tra nsmitted reference range : <=0.2. The reference r quynh was not used to int erpret this result as normal/abnormal . [facility] CenterUbtlttpKHDKJSLWSV3235-72-47 11:43:00 Test Item Value Reference Range Interpretation Comments Microcyte (test code = 1+ *ABN*(04/24/22 Microcyte) 6:43 AM) [place] 439852-10-26 11:43:00 Test Item Value Reference Range Interpretation Comments WBC (test code = WBC) 10.8 3.7-10.4 [place] 439852-10-26 11:43:00 Test Item Value Reference Range Interpretation Comments RBC (test code = RBC) 3.62 4.20-5.40 [place] 439852-10-26 11:43:00 Test Item Value Reference Range Interpretation Comments Hgb (test code = Hgb) 9.7 12.0-16.0 [facility] CenterAqwidnwFANRVPINBI8874-51-39 11:43:00 Test Item Value Reference Range Interpretation Comments Hct (test code = Hct) 28.6 36.0-48.0 [facility] CenterFnwzowgOCHWTPRTJJ4242-35-63 11:43:00 Test Item Value Reference Range Interpretation Comments MCV (test code = MCV) 78.9 80.0-98.0 [facility] CenterEfrdtvxTZVZRPKYCP0227-54-49 11:43:00 Test Item Value Reference Range Interpretation Comments MCH (test code = MCH) 26.9 pg 27.0-31.0 [facility] CenterYevskswVNIJXHXVAA9839-66-69 11:43:00 Test Item Value Reference Range Interpretation Comments MCHC (test code = MCHC) 34.1 32.0-36.0 [facility] CenterHxmqoifJNHGEKKGIA3344-19-52 11:43:00 Test Item Value Reference Range Interpretation Comments RDW (test code = RDW) 16.3 11.5-14.5 [facility] CenterBliynvfBTGWMBLMSJ8515-09-04 11:43:00 Test Item Value Reference Range Interpretation Comments Platelet (test code = Platelet) 242 133-450 [facility] CenterKmeifseSCWFDURSZN7404-87-99 11:43:00 Test Item Value Reference Range Interpretation Comments MPV (test code = MPV) 8.7 7.4-10.[address] [facility] CenterNfkqgdeDEGWJZKKL6213-62-26 11:43:00 Test Item Value Reference Range Interpretation Comments Glucose Lvl (test code = Glucose Lvl) 93 70-[address] [facility] CenterIngffdsCZEFDERSS9866-42-49 11:43:00 Test Item Value Reference Range Interpretation Comments BUN (test code = BUN) 13 7-[address] [facility] CenterTdvujfmPJMQEFTGG0695-39-15 11:43:00 Test Item Value Reference Range Interpretation Comments Creatinine Lvl (test code = Creatinine 0.62 0.50-1.40 Lvl) [facility] CenterEqbtymoKHQKNDGBM9083-65-35 11:43:00 Test Item Value Reference Range Interpretation Comments Sodium Lvl (test code = Sodium Lvl) 142 135-[address] [facility] CenterOuyrjilRTTOWFSPH0959-58-34 11:43:00 Test Item Value Reference Range Interpretation Comments Potassium Lvl (test code = Potassium 3.5 3.5-5.1 Lvl) [facility] CenterHugdppiMSXXUIQEP3943-19-24 11:43:00 Test Item Value Reference Range Interpretation Comments Chloride Lvl (test code = Chloride Lvl) 109 95-109 [facility]LnexhfdWWNUEIGOB6102-81-51 11:43:00 Test Item Value Reference Range Interpretation Comments CO2 (test code = CO2) 26 24-32 [facility] HospitalYwowtryCEPFAYHOD1337-73-08 11:43:00 Test Item Value Reference Range Interpretation Comments Calcium Lvl (test code = Calcium Lvl) 8.9 8.5-10.5 [facility] HospitalIcpqcspGZYRYHRMH0054-19-74 11:43:00 Test Item Value Reference Range Interpretation Comments Total Protein (test code = Total 6.5 6.4-8.4 Protein) [facility] HospitalAnspoiqOJHQFETUO9855-58-43 11:43:00 Test Item Value Reference Range Interpretation Comments Albumin Lvl (test code = Albumin Lvl) 2.6 3.5-5.0 [facility] HospitalUxatwkmFMUDVINRU7827-81-06 11:43:00 Test Item Value Reference Range Interpretation Comments ALT (test code = ALT) 16 See_Comment [Auto mated message] The system which ge nerated this result transmit fabiano reference range : <=65. The reference range was not used to interpr et this result as aleks l/abnormal. [facility] HospitalOtzcjnkPRUAULGDE4428-74-75 11:43:00 Test Item Value Reference Range Interpretation Comments AST (test code = AST) 8 See_Comment [Auto mated message] The system which ge nerated this result transmit fabiano reference range : <=37. The reference range was not used to interpr et this result as aleks l/abnormal. [facility] HospitalMzblrwkNZGMDXFSA5702-38-88 11:43:00 Test Item Value Reference Range Interpretation Comments Alk Phos (test code = Alk Phos) 93 39-136 [facility] HospitalNesskpxIDGYWKLTN3732-03-18 11:43:00 Test Item Value Reference Range Interpretation Comments Bili Total (test code = Bili Total) 0.3 0.2-1.3 [facility] HospitalWvuazzjSSJKDPXWJ9962-15-27 11:43:00 Test Item Value Reference Range Interpretation Comments AGAP (test code = AGAP) 10.5 10.0-20.0 [facility] HospitalGzfvwphUOTOOIFBN0193-37-53 11:43:00 Test Item Value Reference Range Interpretation Comments B/C Ratio (test code = B/C Ratio) 21 1 6-[address] [facility] CenterEviqcjfRZNLOOEPM5631-58-47 11:43:00 Test Item Value Reference Range Interpretation Comments Globulin (test code = Globulin) 3.9 2.7-4.[address] [facility] CenterGmvmsecILHCECIIV1783-05-92 11:43:00 Test Item Value Reference Range Interpretation Comments A/G Ratio (test code = A/G Ratio) 0.7 1 0.7-1.6 [place] 675862-10-26 11:43:00 Test Item Value Reference Range Interpretation Comments eGFR (test code = eGFR) 107 [facility] CenterVejpofqBFIAYOMERO7259-16-85 11:43:00 Test Item Value Reference Range Interpretation Comments Segs (test code = Segs) 75.4 45.0-75.0 [place] 439852-10-26 11:43:00 Test Item Value Reference Range Interpretation Comments Lymphocytes (test code = Lymphocytes) 17.6 20.0-40.0 [facility] CenterBbtrugsNYCLERHCYY0692-32-82 11:43:00 Test Item Value Reference Range Interpretation Comments Monocytes (test code = Monocytes) 5.9 2.0-12.0 [facility] CenterCxjvnxcYKEHZXVYAR5576-45-64 11:43:00 Test Item Value Reference Range Interpretation Comments Eosinophils (test code = 0.5 See_Comment [A utomated message] The Eosinophils) system which nerated this result tra nsmitted reference range : <=4.0. The reference r quynh was not used to int erpret this result as normal/abnormal . [facility] CenterYwovfiwFEDDBHXGYE7750-94-72 11:43:00 Test Item Value Reference Range Interpretation Comments Basophils (test code = 0.6 See_Comment [Aut omated message] The Basophils) system which ge nerated this result tra nsmitted reference range : <=1.0. The reference r quynh was not used to int erpret this result as normal/abnormal . [facility] CenterRtgkkyjVCDGNBOOTX3774-42-75 11:43:00 Test Item Value Reference Range Interpretation Comments Neutrophils # (test code = Neutrophils 8.1 1.5-8.1 #) [facility] CenterHkeigtoNZKWTXJOEE4217-58-25 11:43:00 Test Item Value Reference Range Interpretation Comments Lymphocytes # (test code = Lymphocytes 1.9 1.0-5.5 #) [place] 439852-10-26 11:43:00 Test Item Value Reference Range Interpretation Comments Monocytes # (test code 0.6 See_Comment [Aut omated message] The = Monocytes #) system which generated this result tra nsmitted reference range : <=0.8. The reference r quynh was not used to int erpret this result as normal/abnormal . [facility] CenterRgkixbqLIBYXHQXBR8738-98-25 11:43:00 Test Item Value Reference Range Interpretation Comments Basophils # (test code 0.1 See_Comment [Aut omated message] The = Basophils #) system which generated this result tra nsmitted reference range : <=0.2. The reference r quynh was not used to int erpret this result as normal/abnormal . [facility] CenterJtynhdaKHQVKPJSLI6621-70-96 11:43:00 Test Item Value Reference Range Interpretation Comments Microcyte (test code = 1+ *ABN*(04/24/22 Microcyte) 6:43 AM) [place] 439852-10-26 11:43:00 Test Item Value Reference Range Interpretation Comments WBC (test code = WBC) 10.8 3.7-10.4 [place] 439852-10-26 11:43:00 Test Item Value Reference Range Interpretation Comments RBC (test code = RBC) 3.62 4.20-5.40 [facility] CenterIpfuysaGVLAQFGNQC1544-94-68 11:43:00 Test Item Value Reference Range Interpretation Comments Hgb (test code = Hgb) 9.7 12.0-16.0 [place] 439852-10-26 11:43:00 Test Item Value Reference Range Interpretation Comments Hct (test code = Hct) 28.6 36.0-48.0 [place] 439852-10-26 11:43:00 Test Item Value Reference Range Interpretation Comments MCV (test code = MCV) 78.9 80.0-98.0 [place] 439852-10-26 11:43:00 Test Item Value Reference Range Interpretation Comments MCH (test code = MCH) 26.9 pg 27.0-31.0 [place] 439852-10-26 11:43:00 Test Item Value Reference Range Interpretation Comments MCHC (test code = MCHC) 34.1 32.0-36.0 [place] 439852-10-26 11:43:00 Test Item Value Reference Range Interpretation Comments RDW (test code = RDW) 16.3 11.5-14.5 [place] [address]-10-26 11:43:00 Test Item Value Reference Range Interpretation Comments Platelet (test code = Platelet) 242 133-450 [place] 439852-10-26 11:43:00 Test Item Value Reference Range Interpretation Comments MPV (test code = MPV) 8.7 7.4-10.[address] [facility] CenterZnchtvxUPGBPWFPU4467-29-91 11:43:00 Test Item Value Reference Range Interpretation Comments Glucose Lvl (test code = Glucose Lvl) 93 70-99 [place] 675862-10-26 11:43:00 Test Item Value Reference Range Interpretation Comments BUN (test code = BUN) 13 7-22 [place] [address]-10-26 11:43:00 Test Item Value Reference Range Interpretation Comments Creatinine Lvl (test code = Creatinine 0.62 0.50-1.40 Lvl) [facility] CenterOidwczePUZLAFTZC8447-12-98 11:43:00 Test Item Value Reference Range Interpretation Comments Sodium Lvl (test code = Sodium Lvl) 142 135-[address] [facility] CenterSutcedzVLUPMMZKA5553-03-53 11:43:00 Test Item Value Reference Range Interpretation Comments Potassium Lvl (test code = Potassium 3.5 3.5-5.1 Lvl) [facility] CenterWweptspIJBVJGBDK7042-70-28 11:43:00 Test Item Value Reference Range Interpretation Comments Chloride Lvl (test code = Chloride Lvl) 109 95-[address] [facility] CenterCsyabhoPVZATARHV2383-16-58 11:43:00 Test Item Value Reference Range Interpretation Comments CO2 (test code = CO2) 24-[address] [facility] CenterZyrwhnjLARGWQWRQ0038-40-94 11:43:00 Test Item Value Reference Range Interpretation Comments Calcium Lvl (test code = Calcium Lvl) 8.9 8.5-10.[address] [facility] CenterXkdddaxRXLEKLCXM4903-80-86 11:43:00 Test Item Value Reference Range Interpretation Comments Total Protein (test code = Total 6.5 6.4-8.4 Protein) [facility] CenterZbwddszQRJOWXBHZ9174-93-72 11:43:00 Test Item Value Reference Range Interpretation Comments Albumin Lvl (test code = Albumin Lvl) 2.6 3.5-5.0 [facility] WguektlYODIREAID1238-03-64 11:43:00 Test Item Value Reference Range Interpretation Comments ALT (test code = ALT) 16 See_Comment [Auto mated message] The system which ge nerated this result transmit fabiano reference range : <=65. The reference range was not used to interpr et this result as aleks l/abnormal. [facility] SqymfwmJPIHBQKKI6793-94-52 11:43:00 Test Item Value Reference Range Interpretation Comments AST (test code = AST) 8 See_Comment [Auto mated message] The system which ge nerated this result transmit fabiano reference range : <=37. The reference range was not used to interpr et this result as aleks l/abnormal. [facility] WvkiogsPRTFDWSDL9500-04-33 11:43:00 Test Item Value Reference Range Interpretation Comments Alk Phos (test code = Alk Phos) 93 39-136 [facility] IlmcdehZGVHUAVBD6255-04-73 11:43:00 Test Item Value Reference Range Interpretation Comments Bili Total (test code = Bili Total) 0.3 0.2-1.3 [facility] HubmcclBBHXYQOXB1655-31-33 11:43:00 Test Item Value Reference Range Interpretation Comments AGAP (test code = AGAP) 10.5 10.0-20.0 [facility] LmopyblDSZVAXHCU5178-09-49 11:43:00 Test Item Value Reference Range Interpretation Comments Glucose Lvl (test code = Glucose Lvl) 93 70-99 [facility] ExykkcoQHUXQJIUF2500-37-46 11:43:00 Test Item Value Reference Range Interpretation Comments BUN (test code = BUN) 13 7-22 [facility] BmqruwmYMFEJWYVE8359-34-84 11:43:00 Test Item Value Reference Range Interpretation Comments Creatinine Lvl (test code = Creatinine 0.62 0.50-1.40 Lvl) [facility] ZrogdocXEBXVOUCB4885-73-63 11:43:00 Test Item Value Reference Range Interpretation Comments B/C Ratio (test code = B/C Ratio) 21 1 6-25 [facility] JrrxvznZUMCFFDHI4816-32-66 11:43:00 Test Item Value Reference Range Interpretation Comments Sodium Lvl (test code = Sodium Lvl) 142 135-145 [facility] RieckizVQTLLDRMP6510-67-05 11:43:00 Test Item Value Reference Range Interpretation Comments Potassium Lvl (test code = Potassium 3.5 3.5-5.1 Lvl) [facility] HospitalEkxdvadHWGOKVVUX7523-65-98 11:43:00 Test Item Value Reference Range Interpretation Comments Chloride Lvl (test code = Chloride Lvl) 109 95-109 [facility] HospitalCugvvjwIGVHJHLWR8131-60-41 11:43:00 Test Item Value Reference Range Interpretation Comments CO2 (test code = CO2) 26 24-32 [facility] HospitalWnphfsbTDXOXLEVW6540-67-34 11:43:00 Test Item Value Reference Range Interpretation Comments Calcium Lvl (test code = Calcium Lvl) 8.9 8.5-10.5 [facility] HospitalNelajcbLUQJCMXPE6470-47-61 11:43:00 Test Item Value Reference Range Interpretation Comments Total Protein (test code = Total 6.5 6.4-8.4 Protein) [facility] CenterUdebmcfXPTPUWOQJ7553-07-73 11:43:00 Test Item Value Reference Range Interpretation Comments Albumin Lvl (test code = Albumin Lvl) 2.6 3.5-5.0 [facility] HospitalCxtznixEWWJBGMXC8605-68-98 11:43:00 Test Item Value Reference Range Interpretation Comments ALT (test code = ALT) 16 See_Comment [Auto mated message] The system which ge nerated this result transmit fabiano reference range : <=65. The reference range was not used to interpr et this result as aleks l/abnormal. [facility] HospitalLebcvocTKURXYRON0719-40-39 11:43:00 Test Item Value Reference Range Interpretation Comments AST (test code = AST) 8 See_Comment [Auto mated message] The system which ge nerated this result transmit fabiano reference range : <=37. The reference range was not used to interpr et this result as aleks l/abnormal. [facility] HospitalSfvfqrkFOTMMBJNP1551-45-26 11:43:00 Test Item Value Reference Range Interpretation Comments Alk Phos (test code = Alk Phos) 93 39-136 [facility] HospitalGrbaghjJMSZZSQDV4380-71-67 11:43:00 Test Item Value Reference Range Interpretation Comments Globulin (test code = Globulin) 3.9 2.7-4.2 [facility] HospitalJtihxvhJMSRHGPKX3099-38-29 11:43:00 Test Item Value Reference Range Interpretation Comments Bili Total (test code = Bili Total) 0.3 0.2-1.3 [place] 675862-10-26 11:43:00 Test Item Value Reference Range Interpretation Comments AGAP (test code = AGAP) 10.5 10.0-20.0 [place] 675862-10-26 11:43:00 Test Item Value Reference Range Interpretation Comments B/C Ratio (test code = B/C Ratio) 21 1 6-25 [place] 675862-10-26 11:43:00 Test Item Value Reference Range Interpretation Comments Globulin (test code = Globulin) 3.9 2.7-4.2 [place] 675862-10-26 11:43:00 Test Item Value Reference Range Interpretation Comments A/G Ratio (test code = A/G Ratio) 0.7 1 0.7-1.6 [place] [address]-10-26 11:43:00 Test Item Value Reference Range Interpretation Comments eGFR (test code = eGFR) 107 [facility] CenterMhkzinhBEFOYPBKFS4147-51-65 11:43:00 Test Item Value Reference Range Interpretation Comments Segs (test code = Segs) 75.4 45.0-75.0 [facility] CenterEdovdzfNODPXFXZAX4284-24-48 11:43:00 Test Item Value Reference Range Interpretation Comments Lymphocytes (test code = Lymphocytes) 17.6 20.0-40.0 [place] 439852-10-26 11:43:00 Test Item Value Reference Range Interpretation Comments Monocytes (test code = Monocytes) 5.9 2.0-12.0 [facility] CenterPdubhgnLKCFDQNOJK3956-42-75 11:43:00 Test Item Value Reference Range Interpretation Comments Eosinophils (test code = 0.5 See_Comment [A utomated message] The Eosinophils) system which ge nerated this result tra nsmitted reference range : <=4.0. The reference r quynh was not used to int erpret this result as normal/abnormal . [facility] CenterFzegwqwXUMBRYPQY0556-49-79 11:43:00 Test Item Value Reference Range Interpretation Comments A/G Ratio (test code = A/G Ratio) 0.7 1 0.7-1.6 [place] 439852-10-26 11:43:00 Test Item Value Reference Range Interpretation Comments Basophils (test code = 0.6 See_Comment [Aut omated message] The Basophils) system which ge nerated this result tra nsmitted reference range : <=1.0. The reference r quynh was not used to int erpret this result as normal/abnormal . [facility] CenterLubvpejPRYUEQLKKM8961-37-84 11:43:00 Test Item Value Reference Range Interpretation Comments Neutrophils # (test code = Neutrophils 8.1 1.5-8.1 #) [facility] CenterLelpqkjQVYRFITVQE6574-48-29 11:43:00 Test Item Value Reference Range Interpretation Comments Lymphocytes # (test code = Lymphocytes 1.9 1.0-5.5 #) [facility] CenterJywfnvzQWQQNJWDDH1074-47-39 11:43:00 Test Item Value Reference Range Interpretation Comments Monocytes # (test code 0.6 See_Comment [Aut omated message] The = Monocytes #) system which generated this result tra nsmitted reference range : <=0.8. The reference r quynh was not used to int erpret this result as normal/abnormal . [place] [address]-10-26 11:43:00 Test Item Value Reference Range Interpretation Comments Basophils # (test code 0.1 See_Comment [Aut omated message] The = Basophils #) system which generated this result tra nsmitted reference range : <=0.2. The reference r quynh was not used to int erpret this result as normal/abnormal . [facility] CenterYjgehviSVCLLGKZRW5924-39-75 11:43:00 Test Item Value Reference Range Interpretation Comments Microcyte (test code = 1+ *ABN*(04/24/22 Microcyte) 6:43 AM) [place] [address]-10-26 11:43:00 Test Item Value Reference Range Interpretation Comments WBC (test code = WBC) 10.8 3.7-10.4 [place] 439852-10-26 11:43:00 Test Item Value Reference Range Interpretation Comments RBC (test code = RBC) 3.62 4.20-5.40 [place] 439852-10-26 11:43:00 Test Item Value Reference Range Interpretation Comments Hgb (test code = Hgb) 9.7 12.0-16.0 [place] [address]-10-26 11:43:00 Test Item Value Reference Range Interpretation Comments Hct (test code = Hct) 28.6 36.0-48.0 [place] 675862-10-26 11:43:00 Test Item Value Reference Range Interpretation Comments eGFR (test code = eGFR) 107 [place] [address]-10-26 11:43:00 Test Item Value Reference Range Interpretation Comments MCV (test code = MCV) 78.9 80.0-98.0 [place] [address]-10-26 11:43:00 Test Item Value Reference Range Interpretation Comments MCH (test code = MCH) 26.9 pg 27.0-31.0 [place] [address]-10-26 11:43:00 Test Item Value Reference Range Interpretation Comments MCHC (test code = MCHC) 34.1 32.0-36.0 [place] [address]-10-26 11:43:00 Test Item Value Reference Range Interpretation Comments RDW (test code = RDW) 16.3 11.5-14.5 [place] [address]-10-26 11:43:00 Test Item Value Reference Range Interpretation Comments Platelet (test code = Platelet) 242 133-450 [place] [address]-10-26 11:43:00 Test Item Value Reference Range Interpretation Comments MPV (test code = MPV) 8.7 7.4-10.4 [place] [address]-10-26 11:43:00 Test Item Value Reference Range Interpretation Comments Segs (test code = Segs) 75.4 45.0-75.0 [place] [address]-10-26 11:43:00 Test Item Value Reference Range Interpretation Comments Lymphocytes (test code = Lymphocytes) 17.6 20.0-40.0 [place] [address]-10-26 11:43:00 Test Item Value Reference Range Interpretation Comments Monocytes (test code = Monocytes) 5.9 2.0-12.0 [place] [address]-10-26 11:43:00 Test Item Value Reference Range Interpretation Comments Eosinophils (test code = 0.5 See_Comment [A utomated message] The Eosinophils) system which ge nerated this result tra nsmitted reference range : <=4.0. The reference r quynh was not used to int erpret this result as normal/abnormal . [place] [address]-10-26 11:43:00 Test Item Value Reference Range Interpretation Comments Basophils (test code = 0.6 See_Comment [Aut omated message] The Basophils) system which ge nerated this result tra nsmitted reference range : <=1.0. The reference r quynh was not used to int erpret this result as normal/abnormal . [place] 439852-10-26 11:43:00 Test Item Value Reference Range Interpretation Comments Neutrophils # (test code = Neutrophils 8.1 1.5-8.1 #) [facility] CenterEczcfciCBWJATCGQE7462-88-90 11:43:00 Test Item Value Reference Range Interpretation Comments Lymphocytes # (test code = Lymphocytes 1.9 1.0-5.5 #) [place] 439852-10-26 11:43:00 Test Item Value Reference Range Interpretation Comments Monocytes # (test code 0.6 See_Comment [Aut omated message] The = Monocytes #) system which generated this result tra nsmitted reference range : <=0.8. The reference r quynh was not used to int erpret this result as normal/abnormal . [place] 439852-10-26 11:43:00 Test Item Value Reference Range Interpretation Comments Basophils # (test code 0.1 See_Comment [Aut omated message] The = Basophils #) system which generated this result tra nsmitted reference range : <=0.2. The reference r quynh was not used to int erpret this result as normal/abnormal . [facility] CenterIsdjhifUWBMZILFMM8534-70-44 11:43:00 Test Item Value Reference Range Interpretation Comments Microcyte (test code = 1+ *ABN*(04/24/22 Microcyte) 6:43 AM) [place] 439852-10-26 11:43:00 Test Item Value Reference Range Interpretation Comments WBC (test code = WBC) 10.8 3.7-10.4 [place] [address]-10-26 11:43:00 Test Item Value Reference Range Interpretation Comments RBC (test code = RBC) 3.62 4.20-5.40 [place] 439852-10-26 11:43:00 Test Item Value Reference Range Interpretation Comments Hgb (test code = Hgb) 9.7 12.0-16.0 [place] [address]-10-26 11:43:00 Test Item Value Reference Range Interpretation Comments Hct (test code = Hct) 28.6 36.0-48.0 [place] 439852-10-26 11:43:00 Test Item Value Reference Range Interpretation Comments MCV (test code = MCV) 78.9 80.0-98.0 [place] 439852-10-26 11:43:00 Test Item Value Reference Range Interpretation Comments MCH (test code = MCH) 26.9 pg 27.0-31.0 [place] [address]-10-26 11:43:00 Test Item Value Reference Range Interpretation Comments MCHC (test code = MCHC) 34.1 32.0-36.0 [place] [address]-10-26 11:43:00 Test Item Value Reference Range Interpretation Comments RDW (test code = RDW) 16.3 11.5-14.5 [place] [address]-10-26 11:43:00 Test Item Value Reference Range Interpretation Comments Platelet (test code = Platelet) 242 232-450 [place] 439852-10-26 11:43:00 Test Item Value Reference Range Interpretation Comments MPV (test code = MPV) 8.7 7.4-10.4 [place] [address]-10-26 11:43:00 Test Item Value Reference Range Interpretation Comments Glucose Lvl (test code = Glucose Lvl) 93 70-[address] [facility] CenterDmqekrzUSSNBDUTF3780-02-68 11:43:00 Test Item Value Reference Range Interpretation Comments BUN (test code = BUN) 13 7-22 [place] [address]-10-26 11:43:00 Test Item Value Reference Range Interpretation Comments Creatinine Lvl (test code = Creatinine 0.62 0.50-1.40 Lvl) [facility] CenterQxueulnWATYKRHJI7038-39-86 11:43:00 Test Item Value Reference Range Interpretation Comments Sodium Lvl (test code = Sodium Lvl) 142 135-145 [facility] [facility] CenterAkmmkgaYFBYIVJKO7559-59-30 11:43:00 Test Item Value Reference Range Interpretation Comments Potassium Lvl (test code = Potassium 3.5 3.5-5.1 Lvl) [facility] CenterByyypsmARKQUMUSX5803-56-17 11:43:00 Test Item Value Reference Range Interpretation Comments Chloride Lvl (test code = Chloride Lvl) 109 95-[address] [facility] CenterWedhbshHVMPHZBHJ0505-61-51 11:43:00 Test Item Value Reference Range Interpretation Comments CO2 (test code = CO2) 26 24-32 [facility]JwonzmtBCTTLGLIX2338-42-25 11:43:00 Test Item Value Reference Range Interpretation Comments Calcium Lvl (test code = Calcium Lvl) 8.9 8.5-10.5 [facility] HospitalAsgnkxiJBNUOBXJX7590-76-63 11:43:00 Test Item Value Reference Range Interpretation Comments Total Protein (test code = Total 6.5 6.4-8.4 Protein) [facility] HospitalSlxanhmDVEIMHKBV7455-11-23 11:43:00 Test Item Value Reference Range Interpretation Comments Albumin Lvl (test code = Albumin Lvl) 2.6 3.5-5.0 [facility] HospitalLpzvxjgYJRFMUMMU3707-95-17 11:43:00 Test Item Value Reference Range Interpretation Comments ALT (test code = ALT) 16 See_Comment [Auto mated message] The system which ge nerated this result transmit fabiano reference range : <=65. The reference range was not used to interpr et this result as aleks l/abnormal. [facility] HospitalOtnciipDHJJDSWJK7471-41-46 11:43:00 Test Item Value Reference Range Interpretation Comments AST (test code = AST) 8 See_Comment [Auto mated message] The system which ge nerated this result transmit fabiano reference range : <=37. The reference range was not used to interpr et this result as aleks l/abnormal. [facility] HospitalPpetskgYLDTDCQNV4998-70-65 11:43:00 Test Item Value Reference Range Interpretation Comments Alk Phos (test code = Alk Phos) 93 39-136 [facility] HospitalGqbnmeqRNJPKONMO6766-74-08 11:43:00 Test Item Value Reference Range Interpretation Comments Bili Total (test code = Bili Total) 0.3 0.2-1.3 [facility] HospitalAradhilXCGIOGKKZ2538-89-94 11:43:00 Test Item Value Reference Range Interpretation Comments AGAP (test code = AGAP) 10.5 10.0-20.0 [facility] HospitalAuaxtnfSHAJOYRYK0628-04-69 11:43:00 Test Item Value Reference Range Interpretation Comments B/C Ratio (test code = B/C Ratio) 21 1 6-25 [facility] HospitalHgifssrISMHOHSDU5027-65-53 11:43:00 Test Item Value Reference Range Interpretation Comments Globulin (test code = Globulin) 3.9 2.7-4.2 [place] 675862-10-26 11:43:00 Test Item Value Reference Range Interpretation Comments A/G Ratio (test code = A/G Ratio) 0.7 1 0.7-1.6 [place] [address]-10-26 11:43:00 Test Item Value Reference Range Interpretation Comments eGFR (test code = eGFR) 107 [place] 439852-10-26 11:43:00 Test Item Value Reference Range Interpretation Comments Segs (test code = Segs) 75.4 45.0-75.0 [place] 439852-10-26 11:43:00 Test Item Value Reference Range Interpretation Comments Lymphocytes (test code = Lymphocytes) 17.6 20.0-40.0 [place] 439852-10-26 11:43:00 Test Item Value Reference Range Interpretation Comments Monocytes (test code = Monocytes) 5.9 2.0-12.0 [place] 439852-10-26 11:43:00 Test Item Value Reference Range Interpretation Comments Eosinophils (test code = 0.5 See_Comment [A utomated message] The Eosinophils) system which ge nerated this result tra nsmitted reference range : <=4.0. The reference r quynh was not used to int erpret this result as normal/abnormal . [facility] CenterFwrbskbDXMTNABDGM6094-14-41 11:43:00 Test Item Value Reference Range Interpretation Comments Basophils (test code = 0.6 See_Comment [Aut omated message] The Basophils) system which ge nerated this result tra nsmitted reference range : <=1.0. The reference r quynh was not used to int erpret this result as normal/abnormal . [facility] CenterRbsojuiSZNXXDRDOD7638-03-93 11:43:00 Test Item Value Reference Range Interpretation Comments Neutrophils # (test code = Neutrophils 8.1 1.5-8.1 #) [place] 439852-10-26 11:43:00 Test Item Value Reference Range Interpretation Comments Lymphocytes # (test code = Lymphocytes 1.9 1.0-5.5 #) [place] 439852-10-26 11:43:00 Test Item Value Reference Range Interpretation Comments Monocytes # (test code 0.6 See_Comment [Aut omated message] The = Monocytes #) system which generated this result tra nsmitted reference range : <=0.8. The reference r quynh was not used to int erpret this result as normal/abnormal . [facility] CenterGkwziiyMCINDXHZTD7510-56-53 11:43:00 Test Item Value Reference Range Interpretation Comments Basophils # (test code 0.1 See_Comment [Aut omated message] The = Basophils #) system which generated this result tra nsmitted reference range : <=0.2. The reference r quynh was not used to int erpret this result as normal/abnormal . [place] 439852-10-26 11:43:00 Test Item Value Reference Range Interpretation Comments Microcyte (test code = 1+ *ABN*(04/24/22 Microcyte) 6:43 AM) [place] [address]-10-26 11:43:00 Test Item Value Reference Range Interpretation Comments WBC (test code = WBC) 10.8 3.7-10.4 [place] 439852-10-26 11:43:00 Test Item Value Reference Range Interpretation Comments RBC (test code = RBC) 3.62 4.20-5.40 [place] 439852-10-26 11:43:00 Test Item Value Reference Range Interpretation Comments Hgb (test code = Hgb) 9.7 12.0-16.0 [place] 439852-10-26 11:43:00 Test Item Value Reference Range Interpretation Comments Hct (test code = Hct) 28.6 36.0-48.0 [place] 439852-10-26 11:43:00 Test Item Value Reference Range Interpretation Comments MCV (test code = MCV) 78.9 80.0-98.0 [place] [address]-10-26 11:43:00 Test Item Value Reference Range Interpretation Comments MCH (test code = MCH) 26.9 pg 27.0-31.0 [place] 439852-10-26 11:43:00 Test Item Value Reference Range Interpretation Comments MCHC (test code = MCHC) 34.1 32.0-36.0 [place] 439852-10-26 11:43:00 Test Item Value Reference Range Interpretation Comments RDW (test code = RDW) 16.3 11.5-14.5 [place] 439852-10-26 11:43:00 Test Item Value Reference Range Interpretation Comments Platelet (test code = Platelet) 242 133-450 [facility]WyaticjXMGAGARGQV5588-60-18 11:43:00 Test Item Value Reference Range Interpretation Comments MPV (test code = MPV) 8.7 7.4-10.[address] [facility] CenterUmvwxskQEQHDVBBE3738-15-75 11:43:00 Test Item Value Reference Range Interpretation Comments Glucose Lvl (test code = Glucose Lvl) 93 70-[address] [facility] CenterQresqzcYBBSSSBRT9672-44-37 11:43:00 Test Item Value Reference Range Interpretation Comments BUN (test code = BUN) 13 7-[address] [facility] [facility] CenterIlxdkpwFXAEVSJHO2829-61-29 11:43:00 Test Item Value Reference Range Interpretation Comments Creatinine Lvl (test code = Creatinine 0.62 0.50-1.40 Lvl) [facility] CenterAeyzdsjQHEBJERMR1459-96-24 11:43:00 Test Item Value Reference Range Interpretation Comments Sodium Lvl (test code = Sodium Lvl) 142 135-[address] [facility] CenterDozdathCVTTUKKEG8732-12-52 11:43:00 Test Item Value Reference Range Interpretation Comments Potassium Lvl (test code = Potassium 3.5 3.5-5.1 Lvl) [facility] CenterCitrdrpCVYOCSZTZ3741-95-36 11:43:00 Test Item Value Reference Range Interpretation Comments Chloride Lvl (test code = Chloride Lvl) 109 95-[address] [facility] CenterOazbzonDYFKCGHRW2772-20-57 11:43:00 Test Item Value Reference Range Interpretation Comments CO2 (test code = CO2) 26 24-[address] [facility] [facility] CenterZrjvbzeTBPFXVULD4221-60-96 11:43:00 Test Item Value Reference Range Interpretation Comments Calcium Lvl (test code = Calcium Lvl) 8.9 8.5-10.[address] [facility] CenterEjarcuxCELJDFOEC9572-55-45 11:43:00 Test Item Value Reference Range Interpretation Comments Total Protein (test code = Total 6.5 6.4-8.4 Protein) [facility] CenterCucqbgkAOZJOTFUN5761-86-10 11:43:00 Test Item Value Reference Range Interpretation Comments Albumin Lvl (test code = Albumin Lvl) 2.6 3.5-5.[address] [facility] CenterEkhkhwvBVYINLPCM9106-05-78 11:43:00 Test Item Value Reference Range Interpretation Comments ALT (test code = ALT) 16 See_Comment [Auto mated message] The system which ge nerated this result transmit fabiano reference range : <=65. The reference range was not used to interpr et this result as aleks l/abnormal. [facility] HospitalIknwljrCTQYANRML7552-91-56 11:43:00 Test Item Value Reference Range Interpretation Comments AST (test code = AST) 8 See_Comment [Auto mated message] The system which ge nerated this result transmit fabiano reference range : <=37. The reference range was not used to interpr et this result as aleks l/abnormal. [facility] HospitalBjzprdrEZMEJKVZU6483-88-48 11:43:00 Test Item Value Reference Range Interpretation Comments Alk Phos (test code = Alk Phos) 93 39-136 [facility] HospitalEdvtfuzNRZMUBEIM7829-47-14 11:43:00 Test Item Value Reference Range Interpretation Comments Bili Total (test code = Bili Total) 0.3 0.2-1.3 [facility] HospitalMnpnsgxPVDNWAERN5458-48-81 11:43:00 Test Item Value Reference Range Interpretation Comments AGAP (test code = AGAP) 10.5 10.0-20.0 [facility] HospitalTeqpctqQHXZHSGOF3890-09-41 11:43:00 Test Item Value Reference Range Interpretation Comments B/C Ratio (test code = B/C Ratio) 21 1 6-25 [facility] HospitalNlevnxmRPWQZFYWP9657-60-24 11:43:00 Test Item Value Reference Range Interpretation Comments Globulin (test code = Globulin) 3.9 2.7-4.2 [facility] HospitalVanlsxwJQLNXDHFS6301-45-99 11:43:00 Test Item Value Reference Range Interpretation Comments A/G Ratio (test code = A/G Ratio) 0.7 1 0.7-1.6 [facility] HospitalDexjcohUDQPIXPPJ6246-88-12 11:43:00 Test Item Value Reference Range Interpretation Comments eGFR (test code = eGFR) 107 [facility] HospitalUdccfvkYGTLHFVKSH9591-28-83 11:43:00 Test Item Value Reference Range Interpretation Comments Segs (test code = Segs) 75.4 45.0-75.0 [facility] HospitalFzxkvrzDIVIHUTCAM9433-99-20 11:43:00 Test Item Value Reference Range Interpretation Comments Lymphocytes (test code = Lymphocytes) 17.6 20.0-40.0 [facility] HospitalWfqfjxqSSAVRFNWBO0321-53-73 11:43:00 Test Item Value Reference Range Interpretation Comments Monocytes (test code = Monocytes) 5.9 2.0-12.0 [place] 439852-10-26 11:43:00 Test Item Value Reference Range Interpretation Comments Eosinophils (test code = 0.5 See_Comment [A utomated message] The Eosinophils) system which ge nerated this result tra nsmitted reference range : <=4.0. The reference r quynh was not used to int erpret this result as normal/abnormal . [place] 439852-10-26 11:43:00 Test Item Value Reference Range Interpretation Comments Basophils (test code = 0.6 See_Comment [Aut omated message] The Basophils) system which ge nerated this result tra nsmitted reference range : <=1.0. The reference r quynh was not used to int erpret this result as normal/abnormal . [place] 439852-10-26 11:43:00 Test Item Value Reference Range Interpretation Comments Neutrophils # (test code = Neutrophils 8.1 1.5-8.1 #) [place] 439852-10-26 11:43:00 Test Item Value Reference Range Interpretation Comments Lymphocytes # (test code = Lymphocytes 1.9 1.0-5.5 #) [place] [address]-10-26 11:43:00 Test Item Value Reference Range Interpretation Comments Monocytes # (test code 0.6 See_Comment [Aut omated message] The = Monocytes #) system which generated this result tra nsmitted reference range : <=0.8. The reference r quynh was not used to int erpret this result as normal/abnormal . [place] 439852-10-26 11:43:00 Test Item Value Reference Range Interpretation Comments Basophils # (test code 0.1 See_Comment [Aut omated message] The = Basophils #) system which generated this result tra nsmitted reference range : <=0.2. The reference r quynh was not used to int erpret this result as normal/abnormal . [place] 439852-10-26 11:43:00 Test Item Value Reference Range Interpretation Comments Microcyte (test code = 1+ *ABN*(04/24/22 Microcyte) 6:43 AM) [place] [address]-10-26 11:43:00 Test Item Value Reference Range Interpretation Comments WBC (test code = WBC) 10.8 3.7-10.4 [facility] CenterCzdzirxOBBXXFOXHS5834-86-02 11:43:00 Test Item Value Reference Range Interpretation Comments RBC (test code = RBC) 3.62 4.20-5.40 [facility] CenterXkzicflWSOXIECZZO7765-63-68 11:43:00 Test Item Value Reference Range Interpretation Comments Hgb (test code = Hgb) 9.7 12.0-16.0 [facility] CenterSwwewhgVIABZVJKDW1863-25-13 11:43:00 Test Item Value Reference Range Interpretation Comments Hct (test code = Hct) 28.6 36.0-48.0 [facility] CenterSbnyrwqDHTFSJLHGW1634-14-03 11:43:00 Test Item Value Reference Range Interpretation Comments MCV (test code = MCV) 78.9 80.0-98.0 [facility] CenterIwdispiTVZDXEAONN6574-22-64 11:43:00 Test Item Value Reference Range Interpretation Comments MCH (test code = MCH) 26.9 pg 27.0-31.0 [facility] CenterLnvgflqDDNCLYWPKO2877-30-98 11:43:00 Test Item Value Reference Range Interpretation Comments MCHC (test code = MCHC) 34.1 32.0-36.0 [facility] CenterSzekezoBXKAMCTQTC3858-06-21 11:43:00 Test Item Value Reference Range Interpretation Comments RDW (test code = RDW) 16.3 11.5-14.5 [facility] CenterFqpobuePNHCWKBMFT2300-16-71 11:43:00 Test Item Value Reference Range Interpretation Comments Platelet (test code = Platelet) 242 133-450 [facility] CenterHwyrioeVUUARGFTPN1846-16-79 11:43:00 Test Item Value Reference Range Interpretation Comments MPV (test code = MPV) 8.7 7.4-10.[address] [facility] CenterAnytqdqCYOMWAXCS6001-37-48 11:43:00 Test Item Value Reference Range Interpretation Comments Glucose Lvl (test code = Glucose Lvl) 93 70-[address] [facility] CenterErugtefZOTXEQJYU7734-81-28 11:43:00 Test Item Value Reference Range Interpretation Comments BUN (test code = BUN) 13 7-[address] [facility] [facility] CenterZojqvyeIRQVUXKUN8308-83-00 11:43:00 Test Item Value Reference Range Interpretation Comments Creatinine Lvl (test code = Creatinine 0.62 0.50-1.40 Lvl) [facility] CenterVrfpsmoWBOXHSYVA8603-93-64 11:43:00 Test Item Value Reference Range Interpretation Comments Sodium Lvl (test code = Sodium Lvl) 142 135-[address] [facility] [facility] CenterCvporhnFPELVXFSM5918-54-73 11:43:00 Test Item Value Reference Range Interpretation Comments Potassium Lvl (test code = Potassium 3.5 3.5-5.1 Lvl) [facility] CenterMfknmvqWILEKWKFA5712-45-62 11:43:00 Test Item Value Reference Range Interpretation Comments Chloride Lvl (test code = Chloride Lvl) 109 95-109 [place] 675862-10-26 11:43:00 Test Item Value Reference Range Interpretation Comments CO2 (test code = CO2) 26 24-32 [place] 675862-10-26 11:43:00 Test Item Value Reference Range Interpretation Comments Calcium Lvl (test code = Calcium Lvl) 8.9 8.5-10.5 [place] 675862-10-26 11:43:00 Test Item Value Reference Range Interpretation Comments Total Protein (test code = Total 6.5 6.4-8.4 Protein) [facility] CenterYlozmbkLGQHHTWWG0541-82-32 11:43:00 Test Item Value Reference Range Interpretation Comments Albumin Lvl (test code = Albumin Lvl) 2.6 3.5-5.[address] CenterStvwjxdNTUCMTGCF6109-75-96 11:43:00 Test Item Value Reference Range Interpretation Comments ALT (test code = ALT) 16 See_Comment [Auto mated message] The system which ge nerated this result transmit fabiano reference range : <=65. The reference range was not used to interpr et this result as aleks l/abnormal. [facility] CenterFhuekwbAKFMZKIQH1189-45-62 11:43:00 Test Item Value Reference Range Interpretation Comments AST (test code = AST) 8 See_Comment [Auto mated message] The system which ge nerated this result transmit fabiano reference range : <=37. The reference range was not used to interpr et this result as aleks l/abnormal. [facility] CenterUokfeyrFYAKPCDHB4057-57-13 11:43:00 Test Item Value Reference Range Interpretation Comments Alk Phos (test code = Alk Phos) 93 39-[address] [facility] [facility] CenterUjbrsdvYDJZKOQRJ9934-95-97 11:43:00 Test Item Value Reference Range Interpretation Comments Bili Total (test code = Bili Total) 0.3 0.2-1.3 [place] 675862-10-26 11:43:00 Test Item Value Reference Range Interpretation Comments AGAP (test code = AGAP) 10.5 10.0-20.0 [place] 675862-10-26 11:43:00 Test Item Value Reference Range Interpretation Comments B/C Ratio (test code = B/C Ratio) 21 1 6-25 [place] 675862-10-26 11:43:00 Test Item Value Reference Range Interpretation Comments Globulin (test code = Globulin) 3.9 2.7-4.2 [place] 675862-10-26 11:43:00 Test Item Value Reference Range Interpretation Comments A/G Ratio (test code = A/G Ratio) 0.7 1 0.7-1.6 [place] [address]-10-26 11:43:00 Test Item Value Reference Range Interpretation Comments eGFR (test code = eGFR) 107 [facility] CenterYrotoyxPYXQAXGMOR4396-56-09 11:43:00 Test Item Value Reference Range Interpretation Comments Segs (test code = Segs) 75.4 45.0-75.0 [place] [address]-10-26 11:43:00 Test Item Value Reference Range Interpretation Comments Lymphocytes (test code = Lymphocytes) 17.6 20.0-40.0 [facility] CenterFtupzlmFTJDBFEBVB4564-90-61 11:43:00 Test Item Value Reference Range Interpretation Comments Monocytes (test code = Monocytes) 5.9 2.0-12.0 [place] 439852-10-26 11:43:00 Test Item Value Reference Range Interpretation Comments Eosinophils (test code = 0.5 See_Comment [A utomated message] The Eosinophils) system which ge nerated this result tra nsmitted reference range : <=4.0. The reference r quynh was not used to int erpret this result as normal/abnormal . [place] 439852-10-26 11:43:00 Test Item Value Reference Range Interpretation Comments Basophils (test code = 0.6 See_Comment [Aut omated message] The Basophils) system which ge nerated this result tra nsmitted reference range : <=1.0. The reference r quynh was not used to int erpret this result as normal/abnormal . [place] 439852-10-26 11:43:00 Test Item Value Reference Range Interpretation Comments Neutrophils # (test code = Neutrophils 8.1 1.5-8.1 #) [place] 439852-10-26 11:43:00 Test Item Value Reference Range Interpretation Comments Lymphocytes # (test code = Lymphocytes 1.9 1.0-5.5 #) [facility] CenterJxdibmoBRQMHGGGFY0185-40-22 11:43:00 Test Item Value Reference Range Interpretation Comments Monocytes # (test code 0.6 See_Comment [Aut omated message] The = Monocytes #) system which generated this result tra nsmitted reference range : <=0.8. The reference r quynh was not used to int erpret this result as normal/abnormal . [place] 439852-10-26 11:43:00 Test Item Value Reference Range Interpretation Comments Basophils # (test code 0.1 See_Comment [Aut omated message] The = Basophils #) system which generated this result tra nsmitted reference range : <=0.2. The reference r quynh was not used to int erpret this result as normal/abnormal . [facility] CenterXhfuvfqMFWBXWMNSO0068-58-70 11:43:00 Test Item Value Reference Range Interpretation Comments Microcyte (test code = 1+ *ABN*(04/24/22 Microcyte) 6:43 AM) [place] [address]-10-26 11:43:00 Test Item Value Reference Range Interpretation Comments WBC (test code = WBC) 10.8 3.7-10.4 [place] 439852-10-26 11:43:00 Test Item Value Reference Range Interpretation Comments RBC (test code = RBC) 3.62 4.20-5.40 [place] [address]-10-26 11:43:00 Test Item Value Reference Range Interpretation Comments Hgb (test code = Hgb) 9.7 12.0-16.0 [place] [address]-10-26 11:43:00 Test Item Value Reference Range Interpretation Comments Hct (test code = Hct) 28.6 36.0-48.0 [place] [address]-10-26 11:43:00 Test Item Value Reference Range Interpretation Comments MCV (test code = MCV) 78.9 80.0-98.0 [place] [address]-10-26 11:43:00 Test Item Value Reference Range Interpretation Comments MCH (test code = MCH) 26.9 pg 27.0-31.0 [facility] CenterZjqqzqoHNUGXMVUDP5877-14-12 11:43:00 Test Item Value Reference Range Interpretation Comments MCHC (test code = MCHC) 34.1 32.0-36.0 [facility] CenterQwvmezcAULDQPSYHB5335-13-64 11:43:00 Test Item Value Reference Range Interpretation Comments RDW (test code = RDW) 16.3 11.5-14.5 [facility] CenterWukdzigOHRIASRCJB2422-75-71 11:43:00 Test Item Value Reference Range Interpretation Comments Platelet (test code = Platelet) 242 133-450 [facility] CenterSiismiaIRKTJASXBJ5947-64-14 11:43:00 Test Item Value Reference Range Interpretation Comments MPV (test code = MPV) 8.7 7.4-10.[address] [facility] CenterElpltiaPPWYMRNVO7792-60-71 11:43:00 Test Item Value Reference Range Interpretation Comments Glucose Lvl (test code = Glucose Lvl) 93 70-[address] [facility] CenterJrsxdzbVKPHIUFNC0980-50-10 11:43:00 Test Item Value Reference Range Interpretation Comments BUN (test code = BUN) 13 7-[address] CenterAmowidwTHWIHBIXS2714-49-26 11:43:00 Test Item Value Reference Range Interpretation Comments Creatinine Lvl (test code = Creatinine 0.62 0.50-1.40 Lvl) [facility] CenterKtpmvekTIPCWWDRS4926-47-04 11:43:00 Test Item Value Reference Range Interpretation Comments Sodium Lvl (test code = Sodium Lvl) 142 135-[address] [facility] CenterFvjtqbtBNARUCVIP4604-83-92 11:43:00 Test Item Value Reference Range Interpretation Comments Potassium Lvl (test code = Potassium 3.5 3.5-5.1 Lvl) [facility] CenterCnhwojwJPTMOLDYV1720-07-33 11:43:00 Test Item Value Reference Range Interpretation Comments Chloride Lvl (test code = Chloride Lvl) 109 95-[address] CenterLawctimLCLWIDDLC4308-02-44 11:43:00 Test Item Value Reference Range Interpretation Comments CO2 (test code = CO2) 24-[address] [facility] CenterQprncnhSVKDMBFIN5022-16-14 11:43:00 Test Item Value Reference Range Interpretation Comments Calcium Lvl (test code = Calcium Lvl) 8.9 8.5-10.5 [facility]yfSFHERGMTS8928[facility] 11:43:00 Test Item Value Reference Range Interpretation Comments Total Protein (test code = Total 6.5 6.4-8.4 Protein) [facility] CenterCmbbjzwUUUBJWQFG2048-12-84 11:43:00 Test Item Value Reference Range Interpretation Comments Albumin Lvl (test code = Albumin Lvl) 2.6 3.5-5.0 [facility] HospitalZydjjvjFFNNEZEAQ0215-11-04 11:43:00 Test Item Value Reference Range Interpretation Comments ALT (test code = ALT) 16 See_Comment [Auto mated message] The system which ge nerated this result transmit fabiano reference range : <=65. The reference range was not used to interpr et this result as aleks l/abnormal. [facility] HospitalWhpmtioXKCJPZVFB4710-54-95 11:43:00 Test Item Value Reference Range Interpretation Comments AST (test code = AST) 8 See_Comment [Auto mated message] The system which ge nerated this result transmit fabiano reference range : <=37. The reference range was not used to interpr et this result as aleks l/abnormal. [facility] HospitalFyxykweLPWTWKHRO3000-64-92 11:43:00 Test Item Value Reference Range Interpretation Comments Alk Phos (test code = Alk Phos) 93 39-136 [facility] HospitalSdhgwltSFCNDIIHY7071-98-92 11:43:00 Test Item Value Reference Range Interpretation Comments Bili Total (test code = Bili Total) 0.3 0.2-1.3 [facility] HospitalCtubxiyMNESHHKUK9509-21-65 11:43:00 Test Item Value Reference Range Interpretation Comments AGAP (test code = AGAP) 10.5 10.0-20.0 [facility]ArpcoxiVLCDJPONS6894-97-17 11:43:00 Test Item Value Reference Range Interpretation Comments B/C Ratio (test code = B/C Ratio) 21 1 6-25 [facility] HospitalYrbpztdLHCGCATMA0947-37-15 11:43:00 Test Item Value Reference Range Interpretation Comments Globulin (test code = Globulin) 3.9 2.7-4.2 [facility] HospitalNtuosprFQOSCBHXZ0228-61-90 11:43:00 Test Item Value Reference Range Interpretation Comments A/G Ratio (test code = A/G Ratio) 0.7 1 0.7-1.6 [facility] HospitalQnlolysIYBDNTQKT8290-07-96 11:43:00 Test Item Value Reference Range Interpretation Comments eGFR (test code = eGFR) 107 [place] [address]-10-26 11:43:00 Test Item Value Reference Range Interpretation Comments Segs (test code = Segs) 75.4 45.0-75.0 [place] [address]-10-26 11:43:00 Test Item Value Reference Range Interpretation Comments Lymphocytes (test code = Lymphocytes) 17.6 20.0-40.0 [place] [address]-10-26 11:43:00 Test Item Value Reference Range Interpretation Comments Monocytes (test code = Monocytes) 5.9 2.0-12.0 [place] [address]-10-26 11:43:00 Test Item Value Reference Range Interpretation Comments Eosinophils (test code = 0.5 See_Comment [A utomated message] The Eosinophils) system which ge nerated this result tra nsmitted reference range : <=4.0. The reference r quynh was not used to int erpret this result as normal/abnormal . [place] [address]-10-26 11:43:00 Test Item Value Reference Range Interpretation Comments Basophils (test code = 0.6 See_Comment [Aut omated message] The Basophils) system which ge nerated this result tra nsmitted reference range : <=1.0. The reference r quynh was not used to int erpret this result as normal/abnormal . [place] [address]-10-26 11:43:00 Test Item Value Reference Range Interpretation Comments Neutrophils # (test code = Neutrophils 8.1 1.5-8.1 #) [place] [address]-10-26 11:43:00 Test Item Value Reference Range Interpretation Comments Lymphocytes # (test code = Lymphocytes 1.9 1.0-5.5 #) [place] [address]-10-26 11:43:00 Test Item Value Reference Range Interpretation Comments Monocytes # (test code 0.6 See_Comment [Aut omated message] The = Monocytes #) system which generated this result tra nsmitted reference range : <=0.8. The reference r quynh was not used to int erpret this result as normal/abnormal . [place] [address]-10-26 11:43:00 Test Item Value Reference Range Interpretation Comments Basophils # (test code 0.1 See_Comment [Aut omated message] The = Basophils #) system which generated this result tra nsmitted reference range : <=0.2. The reference r quynh was not used to int erpret this result as normal/abnormal . [facility] CenterGgywbwlPMYPPLFNJT1545-97-92 11:43:00 Test Item Value Reference Range Interpretation Comments Microcyte (test code = 1+ *ABN*(04/24/22 Microcyte) 6:43 AM) [facility] CenterCkhubwlZRFLIKHWTA9298-82-37 11:43:00 Test Item Value Reference Range Interpretation Comments WBC (test code = WBC) 10.8 3.7-10.4 [facility] CenterBcinmysQUMFCRAYHJ7558-27-02 11:43:00 Test Item Value Reference Range Interpretation Comments RBC (test code = RBC) 3.62 4.20-5.40 [facility] CenterAirbhipWQSKQUVOJF7755-28-36 11:43:00 Test Item Value Reference Range Interpretation Comments Hgb (test code = Hgb) 9.7 12.0-16.0 [facility] CenterKupypajKXGGFXERZG2878-51-26 11:43:00 Test Item Value Reference Range Interpretation Comments Hct (test code = Hct) 28.6 36.0-48.0 [facility] CenterFhtbpdwHAKCRMUEFG5704-69-50 11:43:00 Test Item Value Reference Range Interpretation Comments MCV (test code = MCV) 78.9 80.0-98.0 [facility] CenterFbktwaeGPYGSLWCBN2827-80-29 11:43:00 Test Item Value Reference Range Interpretation Comments MCH (test code = MCH) 26.9 pg 27.0-31.0 [facility] CenterKyniijcUYSPYBMRYM4752-72-91 11:43:00 Test Item Value Reference Range Interpretation Comments MCHC (test code = MCHC) 34.1 32.0-36.0 [place] 439852-10-26 11:43:00 Test Item Value Reference Range Interpretation Comments RDW (test code = RDW) 16.3 11.5-14.5 [facility] CenterUbtzualIQTSZIFOIG0065-79-84 11:43:00 Test Item Value Reference Range Interpretation Comments Platelet (test code = Platelet) 242 133-450 [facility] CenterAsvlrynNQVJLYOYSP7590-36-24 11:43:00 Test Item Value Reference Range Interpretation Comments MPV (test code = MPV) 8.7 7.4-10.[address] [facility] CenterNlkqymeMRUXZJVGZ9744-90-73 11:43:00 Test Item Value Reference Range Interpretation Comments Glucose Lvl (test code = Glucose Lvl) 93 70-99 [place] [address]-10-26 11:43:00 Test Item Value Reference Range Interpretation Comments BUN (test code = BUN) 13 7-[address] [facility] CenterAphiduzOULAUJYWB7952-48-32 11:43:00 Test Item Value Reference Range Interpretation Comments Creatinine Lvl (test code = Creatinine 0.62 0.50-1.40 Lvl) [facility] CenterQztjimkICCGFLTUI7435-42-25 11:43:00 Test Item Value Reference Range Interpretation Comments Sodium Lvl (test code = Sodium Lvl) 142 135-[address] [facility] CenterGxrmzejFSXAJOOAB8545-11-65 11:43:00 Test Item Value Reference Range Interpretation Comments Potassium Lvl (test code = Potassium 3.5 3.5-5.1 Lvl) [facility] CenterSvqgsuqWGLXNMQLH1563-92-09 11:43:00 Test Item Value Reference Range Interpretation Comments Chloride Lvl (test code = Chloride Lvl) 109 95-[address] CenterGgaeeovNSYPBJCUJ9605-02-99 11:43:00 Test Item Value Reference Range Interpretation Comments CO2 (test code = CO2) 26 24-[address] [facility] CenterDdspiisVVPEMOSCE7661-11-18 11:43:00 Test Item Value Reference Range Interpretation Comments Calcium Lvl (test code = Calcium Lvl) 8.9 8.5-10.[address] [facility] CenterWwqhozxJBEWMLYWQ4037-63-98 11:43:00 Test Item Value Reference Range Interpretation Comments Total Protein (test code = Total 6.5 6.4-8.4 Protein) [facility] CenterCtsqxkoMRLUHYPEA0520-23-67 11:43:00 Test Item Value Reference Range Interpretation Comments Albumin Lvl (test code = Albumin Lvl) 2.6 3.5-5.[address] [facility] CenterGauvtooLCLWZTARE2327-54-48 11:43:00 Test Item Value Reference Range Interpretation Comments ALT (test code = ALT) 16 See_Comment [Auto mated message] The system which ge nerated this result transmit fabiano reference range : <=65. The reference range was not used to interpr et this result as aleks l/abnormal. [facility] CenterDwtwnyjJEPAIVORJ2488-38-06 11:43:00 Test Item Value Reference Range Interpretation Comments AST (test code = AST) 8 See_Comment [Auto mated message] The system which ge nerated this result transmit fabiano reference range : <=37. The reference range was not used to interpr et this result as aleks l/abnormal. [facility] CenterAlmdvssYLJGEHVGU3316-58-51 11:43:00 Test Item Value Reference Range Interpretation Comments Alk Phos (test code = Alk Phos) 93 39-[address] [facility] CenterKhsawzjPQGFEQNQJ8821-28-73 11:43:00 Test Item Value Reference Range Interpretation Comments Bili Total (test code = Bili Total) 0.3 0.2-1.[address] [facility] CenterRuxlmdeCXNBHCJOK0455-83-75 11:43:00 Test Item Value Reference Range Interpretation Comments AGAP (test code = AGAP) 10.5 10.0-20.[address] [facility] CenterPzynxzyWYWGJKYRU1065-28-52 11:43:00 Test Item Value Reference Range Interpretation Comments B/C Ratio (test code = B/C Ratio) 21 1 6-[address] [facility] CenterBfocqkeATTIWGHRP7657-12-76 11:43:00 Test Item Value Reference Range Interpretation Comments Globulin (test code = Globulin) 3.9 2.7-4.[address] [facility] CenterTzamdqbMIYVAUIGX9563-62-47 11:43:00 Test Item Value Reference Range Interpretation Comments A/G Ratio (test code = A/G Ratio) 0.7 1 0.7-1.[address] [facility] CenterKuzlttbFQSBTFUTW4043-83-49 11:43:00 Test Item Value Reference Range Interpretation Comments eGFR (test code = eGFR) 107 [facility] CenterFyvyndzPDYLFWYWXS1128-76-06 11:43:00 Test Item Value Reference Range Interpretation Comments Segs (test code = Segs) 75.4 45.0-75.0 [facility]LziuembCMSANNIWKZ7828-22-40 11:43:00 Test Item Value Reference Range Interpretation Comments Lymphocytes (test code = Lymphocytes) 17.6 20.0-40.0 [facility]DhptnawJWFVGUDDLP1979-58-37 11:43:00 Test Item Value Reference Range Interpretation Comments Monocytes (test code = Monocytes) 5.9 2.0-12.0 [facility]RhnkmghWYQRDSDNNZ6974-24-02 11:43:00 Test Item Value Reference Range Interpretation Comments Eosinophils (test code = 0.5 See_Comment [A utomated message] The Eosinophils) system which ge nerated this result tra nsmitted reference range : <=4.0. The reference r quynh was not used to int erpret this result as normal/abnormal . [facility] CenterPamhhlhMCCXOCXYHJ4812-68-26 11:43:00 Test Item Value Reference Range Interpretation Comments Basophils (test code = 0.6 See_Comment [Aut omated message] The Basophils) system which ge nerated this result tra nsmitted reference range : <=1.0. The reference r quynh was not used to int erpret this result as normal/abnormal . [facility] CenterElghfmtDCGOJAEIAA2800-23-82 11:43:00 Test Item Value Reference Range Interpretation Comments Neutrophils # (test code = Neutrophils 8.1 1.5-8.1 #) [place]852-10-26 11:43:00 Test Item Value Reference Range Interpretation Comments Lymphocytes # (test code = Lymphocytes 1.9 1.0-5.5 #) [place] 439852-10-26 11:43:00 Test Item Value Reference Range Interpretation Comments Monocytes # (test code 0.6 See_Comment [Aut omated message] The = Monocytes #) system which generated this result tra nsmitted reference range : <=0.8. The reference r quynh was not used to int erpret this result as normal/abnormal . [place] 439852-10-26 11:43:00 Test Item Value Reference Range Interpretation Comments Basophils # (test code 0.1 See_Comment [Aut omated message] The = Basophils #) system which generated this result tra nsmitted reference range : <=0.2. The reference r quynh was not used to int erpret this result as normal/abnormal . [facility] CenterXasayonDKUNQOQUTX4118-10-81 11:43:00 Test Item Value Reference Range Interpretation Comments Microcyte (test code = 1+ *ABN*(04/24/22 Microcyte) 6:43 AM) [place] 439852-10-26 11:43:00 Test Item Value Reference Range Interpretation Comments WBC (test code = WBC) 10.8 3.7-10.4 [place] 439852-10-26 11:43:00 Test Item Value Reference Range Interpretation Comments RBC (test code = RBC) 3.62 4.20-5.40 [place] 439852-10-26 11:43:00 Test Item Value Reference Range Interpretation Comments Hgb (test code = Hgb) 9.7 12.0-16.0 [facility] CenterQtmtzgvYSCVMNOKNF3222-95-65 11:43:00 Test Item Value Reference Range Interpretation Comments Hct (test code = Hct) 28.6 36.0-48.0 [facility] CenterBymtfapIDBWPIOQLB5283-33-51 11:43:00 Test Item Value Reference Range Interpretation Comments MCV (test code = MCV) 78.9 80.0-98.0 [facility] CenterPwyplmlIFGMDTYNQD4577-97-56 11:43:00 Test Item Value Reference Range Interpretation Comments MCH (test code = MCH) 26.9 pg 27.0-31.0 [facility] CenterKqvaulvSNQJQRVEIC1485-87-03 11:43:00 Test Item Value Reference Range Interpretation Comments MCHC (test code = MCHC) 34.1 32.0-36.0 [facility] CenterKlvcybxYEONKXMIWV2914-94-36 11:43:00 Test Item Value Reference Range Interpretation Comments RDW (test code = RDW) 16.3 11.5-14.5 [facility] CenterYgvxwtgAMEUAYRCRV4713-06-21 11:43:00 Test Item Value Reference Range Interpretation Comments Platelet (test code = Platelet) 242 133-450 [facility] CenterWvrgbniAMCUVPFYJY7243-29-34 11:43:00 Test Item Value Reference Range Interpretation Comments MPV (test code = MPV) 8.7 7.4-10.[address] [facility] CenterIqcsqmiXDNFHGYAA6168-40-15 11:43:00 Test Item Value Reference Range Interpretation Comments Glucose Lvl (test code = Glucose Lvl) [facility] CenterHuiqsmhGQOGTKEJS2670-81-59 11:43:00 Test Item Value Reference Range Interpretation Comments BUN (test code = BUN) 01-[address] [facility] CenterByqmtyxKQLGNLNSV0967-26-97 11:43:00 Test Item Value Reference Range Interpretation Comments Glucose Lvl (test code = Glucose Lvl) [facility] CenterMxrsqoeIPPHNXKFS6858-25-37 11:43:00 Test Item Value Reference Range Interpretation Comments BUN (test code = BUN) 01-[address] [facility] CenterHbelzygDXGUNQESX9897-14-25 11:43:00 Test Item Value Reference Range Interpretation Comments Creatinine Lvl (test code = Creatinine 0.62 0.50-1.40 Lvl) [facility] CenterZhpjarjACVCWHUZQ9433-98-60 11:43:00 Test Item Value Reference Range Interpretation Comments Sodium Lvl (test code = Sodium Lvl) 142 135-[address] [facility] CenterWngamblJVENEUSIX2354-66-94 11:43:00 Test Item Value Reference Range Interpretation Comments Potassium Lvl (test code = Potassium 3.5 3.5-5.1 Lvl) [facility] CenterXoepzptVNQFJXXGE7805-33-39 11:43:00 Test Item Value Reference Range Interpretation Comments Chloride Lvl (test code = Chloride Lvl) 109 95-109 [place] 675862-10-26 11:43:00 Test Item Value Reference Range Interpretation Comments CO2 (test code = CO2) 24-[address] [facility] CenterUuersaaDOHSXOMTK8598-67-75 11:43:00 Test Item Value Reference Range Interpretation Comments Calcium Lvl (test code = Calcium Lvl) 8.9 8.5-10.[address] [facility] CenterFnaxqadMXQYTUTTS5487-30-16 11:43:00 Test Item Value Reference Range Interpretation Comments Total Protein (test code = Total 6.5 6.4-8.4 Protein) [facility] CenterIufnigdHYMPFTWWK5660-40-90 11:43:00 Test Item Value Reference Range Interpretation Comments Albumin Lvl (test code = Albumin Lvl) 2.6 3.5-5.[address] [facility] CenterTvalxlrINERFGJGA0789-23-89 11:43:00 Test Item Value Reference Range Interpretation Comments ALT (test code = ALT) 16 See_Comment [Auto mated message] The system which ge nerated this result transmit fabiano reference range : <=65. The reference range was not used to interpr et this result as aleks l/abnormal. [facility] CenterPlglwdvBYHICYJTW0903-77-94 11:43:00 Test Item Value Reference Range Interpretation Comments AST (test code = AST) 8 See_Comment [Auto mated message] The system which ge nerated this result transmit fabiano reference range : <=37. The reference range was not used to interpr et this result as aleks l/abnormal. [facility] CenterYqmjybcPNYQXPVNA8016-24-71 11:43:00 Test Item Value Reference Range Interpretation Comments Alk Phos (test code = Alk Phos) 93 39-[address] [facility] CenterCcvpgykZESXZONNE4318-38-57 11:43:00 Test Item Value Reference Range Interpretation Comments Bili Total (test code = Bili Total) 0.3 0.2-1.3 [place] 675862-10-26 11:43:00 Test Item Value Reference Range Interpretation Comments AGAP (test code = AGAP) 10.5 10.0-20.0 [place] 675862-10-26 11:43:00 Test Item Value Reference Range Interpretation Comments B/C Ratio (test code = B/C Ratio) 21 1 6-25 [place] [address]-10-26 11:43:00 Test Item Value Reference Range Interpretation Comments Globulin (test code = Globulin) 3.9 2.7-4.2 [place] 675862-10-26 11:43:00 Test Item Value Reference Range Interpretation Comments A/G Ratio (test code = A/G Ratio) 0.7 1 0.7-1.6 [place] [address]-10-26 11:43:00 Test Item Value Reference Range Interpretation Comments eGFR (test code = eGFR) 107 [facility] CenterXalpewxYIOHNPCNYV8122-49-05 11:43:00 Test Item Value Reference Range Interpretation Comments Segs (test code = Segs) 75.4 45.0-75.0 [place] 439852-10-26 11:43:00 Test Item Value Reference Range Interpretation Comments Lymphocytes (test code = Lymphocytes) 17.6 20.0-40.0 [place] 439852-10-26 11:43:00 Test Item Value Reference Range Interpretation Comments Monocytes (test code = Monocytes) 5.9 2.0-12.0 [place] 439852-10-26 11:43:00 Test Item Value Reference Range Interpretation Comments Eosinophils (test code = 0.5 See_Comment [A utomated message] The Eosinophils) system which ge nerated this result tra nsmitted reference range : <=4.0. The reference r quynh was not used to int erpret this result as normal/abnormal . [place] 439852-10-26 11:43:00 Test Item Value Reference Range Interpretation Comments Basophils (test code = 0.6 See_Comment [Aut omated message] The Basophils) system which ge nerated this result tra nsmitted reference range : <=1.0. The reference r quynh was not used to int erpret this result as normal/abnormal . [facility] CenterOfjjdbmDFRTDBSBNQ3669-39-47 11:43:00 Test Item Value Reference Range Interpretation Comments Neutrophils # (test code = Neutrophils 8.1 1.5-8.1 #) [place] 439852-10-26 11:43:00 Test Item Value Reference Range Interpretation Comments Lymphocytes # (test code = Lymphocytes 1.9 1.0-5.5 #) [place] [address]-10-26 11:43:00 Test Item Value Reference Range Interpretation Comments Monocytes # (test code 0.6 See_Comment [Aut omated message] The = Monocytes #) system which generated this result tra nsmitted reference range : <=0.8. The reference r quynh was not used to int erpret this result as normal/abnormal . [place] [address]-10-26 11:43:00 Test Item Value Reference Range Interpretation Comments Basophils # (test code 0.1 See_Comment [Aut omated message] The = Basophils #) system which generated this result tra nsmitted reference range : <=0.2. The reference r quynh was not used to int erpret this result as normal/abnormal . [place] [address]-10-26 11:43:00 Test Item Value Reference Range Interpretation Comments Microcyte (test code = 1+ *ABN*(04/24/22 Microcyte) 6:43 AM) [place] [address]-10-26 11:43:00 Test Item Value Reference Range Interpretation Comments WBC (test code = WBC) 10.8 3.7-10.4 [place] [address]-10-26 11:43:00 Test Item Value Reference Range Interpretation Comments RBC (test code = RBC) 3.62 4.20-5.40 [place] [address]-10-26 11:43:00 Test Item Value Reference Range Interpretation Comments Hgb (test code = Hgb) 9.7 12.0-16.0 [place] [address]-10-26 11:43:00 Test Item Value Reference Range Interpretation Comments Hct (test code = Hct) 28.6 36.0-48.0 [place] [address]-10-26 11:43:00 Test Item Value Reference Range Interpretation Comments MCV (test code = MCV) 78.9 80.0-98.0 [facility] CenterCxybjrwTORKZVWIEZ1258-07-95 11:43:00 Test Item Value Reference Range Interpretation Comments MCH (test code = MCH) 26.9 pg 27.0-31.0 [facility] CenterOxhsqwxEBDQWSJOCH0166-28-90 11:43:00 Test Item Value Reference Range Interpretation Comments MCHC (test code = MCHC) 34.1 32.0-36.0 [facility] CenterDhcgeyiVAYVFEDLGB0516-01-22 11:43:00 Test Item Value Reference Range Interpretation Comments RDW (test code = RDW) 16.3 11.5-14.5 [place] [address]-10-26 11:43:00 Test Item Value Reference Range Interpretation Comments Platelet (test code = Platelet) 242 133-450 [facility] CenterLtefzwbIGXCJLOMTV5697-95-94 11:43:00 Test Item Value Reference Range Interpretation Comments MPV (test code = MPV) 8.7 7.4-10.[address] [facility] CenterParstewYGZNEMMUB3423-99-38 11:43:00 Test Item Value Reference Range Interpretation Comments Creatinine Lvl (test code = Creatinine 0.62 0.50-1.40 Lvl) [facility] CenterQmcglrdYJDZRGXZT1179-76-31 11:43:00 Test Item Value Reference Range Interpretation Comments Sodium Lvl (test code = Sodium Lvl) 142 135-[address] [facility] CenterHhodtxcFVPHAPYJY6179-90-50 11:43:00 Test Item Value Reference Range Interpretation Comments Glucose Lvl (test code = Glucose Lvl) 93 70-[address] [facility] CenterNsixwgoGLUCEUGGK2846-40-73 11:43:00 Test Item Value Reference Range Interpretation Comments BUN (test code = BUN) 13 7-[address] [facility] CenterOgvgviuGOXBCBCRB1333-78-61 11:43:00 Test Item Value Reference Range Interpretation Comments Creatinine Lvl (test code = Creatinine 0.62 0.50-1.40 Lvl) [facility] CenterQuluavnPSACXLMEA4106-33-52 11:43:00 Test Item Value Reference Range Interpretation Comments Sodium Lvl (test code = Sodium Lvl) 142 135-[address] [facility] CenterYrxdpwcCXLLEWUZX1645-05-11 11:43:00 Test Item Value Reference Range Interpretation Comments Potassium Lvl (test code = Potassium 3.5 3.5-5.1 Lvl) [facility] CenterIatffuxUCRNWBABT7538-55-58 11:43:00 Test Item Value Reference Range Interpretation Comments Chloride Lvl (test code = Chloride Lvl) 109 95-[address] [facility] CenterLkbgipbJUCPXCRDU8541-07-72 11:43:00 Test Item Value Reference Range Interpretation Comments Potassium Lvl (test code = Potassium 3.5 3.5-5.1 Lvl) [facility] CenterPzhulnsBXCAAIJXB8602-95-85 11:43:00 Test Item Value Reference Range Interpretation Comments CO2 (test code = CO2) 26 24-[address] [facility] CenterUilefeeCUPVZHTSE5956-16-81 11:43:00 Test Item Value Reference Range Interpretation Comments Calcium Lvl (test code = Calcium Lvl) 8.9 8.5-10.[address] [facility] CenterXburcfaCAWVYBXCM9786-16-05 11:43:00 Test Item Value Reference Range Interpretation Comments Total Protein (test code = Total 6.5 6.4-8.4 Protein) [facility] CenterVslewavEGCVLTWAK4780-43-93 11:43:00 Test Item Value Reference Range Interpretation Comments Albumin Lvl (test code = Albumin Lvl) 2.6 3.5-5.[address] [facility] CenterNstdyrpIVTFSRVBQ9817-92-20 11:43:00 Test Item Value Reference Range Interpretation Comments ALT (test code = ALT) 16 See_Comment [Auto mated message] The system which ge nerated this result transmit fabiano reference range : <=65. The reference range was not used to interpr et this result as aleks l/abnormal. [facility] CenterOftrvvwGLIZQJOLB6634-78-86 11:43:00 Test Item Value Reference Range Interpretation Comments AST (test code = AST) 8 See_Comment [Auto mated message] The system which ge nerated this result transmit fabiano reference range : <=37. The reference range was not used to interpr et this result as aleks l/abnormal. [facility] CenterTimarffAJSYGZYSB6472-03-88 11:43:00 Test Item Value Reference Range Interpretation Comments Alk Phos (test code = Alk Phos) 93 39-[address] [facility] CenterKdoepqhHYSIXQSRY6836-39-74 11:43:00 Test Item Value Reference Range Interpretation Comments Bili Total (test code = Bili Total) 0.3 0.2-1.[address] [facility] CenterYhbhecpLHLBEIGAX9112-15-57 11:43:00 Test Item Value Reference Range Interpretation Comments AGAP (test code = AGAP) 10.5 10.0-20.0 [place] [address]-10-26 11:43:00 Test Item Value Reference Range Interpretation Comments B/C Ratio (test code = B/C Ratio) 21 1 6-25 [place] [address]-10-26 11:43:00 Test Item Value Reference Range Interpretation Comments Globulin (test code = Globulin) 3.9 2.7-4.2 [place] 675862-10-26 11:43:00 Test Item Value Reference Range Interpretation Comments A/G Ratio (test code = A/G Ratio) 0.7 1 0.7-1.6 [place] [address]-10-26 11:43:00 Test Item Value Reference Range Interpretation Comments eGFR (test code = eGFR) 107 [place] [id number] 11:43:00 Test Item Value Reference Range Interpretation Comments Segs (test code = Segs) 75.4 45.0-75.0 [place] 439852-10-26 11:43:00 Test Item Value Reference Range Interpretation Comments Lymphocytes (test code = Lymphocytes) 17.6 20.0-40.0 [place] 439852-10-26 11:43:00 Test Item Value Reference Range Interpretation Comments Monocytes (test code = Monocytes) 5.9 2.0-12.0 [place] 439852-10-26 11:43:00 Test Item Value Reference Range Interpretation Comments Eosinophils (test code = 0.5 See_Comment [A utomated message] The Eosinophils) system which ge nerated this result tra nsmitted reference range : <=4.0. The reference r quynh was not used to int erpret this result as normal/abnormal . [facility] CenterLbqawqvIYCDTPUGNT3456-15-49 11:43:00 Test Item Value Reference Range Interpretation Comments Basophils (test code = 0.6 See_Comment [Aut omated message] The Basophils) system which ge nerated this result tra nsmitted reference range : <=1.0. The reference r quynh was not used to int erpret this result as normal/abnormal . [place] 439852-10-26 11:43:00 Test Item Value Reference Range Interpretation Comments Neutrophils # (test code = Neutrophils 8.1 1.5-8.1 #) [place] 439852-10-26 11:43:00 Test Item Value Reference Range Interpretation Comments Lymphocytes # (test code = Lymphocytes 1.9 1.0-5.5 #) [facility] CenterPduybucEVZFXKQAYT3687-69-87 11:43:00 Test Item Value Reference Range Interpretation Comments Monocytes # (test code 0.6 See_Comment [Aut omated message] The = Monocytes #) system which generated this result tra nsmitted reference range : <=0.8. The reference r uqynh was not used to int erpret this result as normal/abnormal . [facility] CenterHjndzrwQTTHAEAFUH6591-17-99 11:43:00 Test Item Value Reference Range Interpretation Comments Basophils # (test code 0.1 See_Comment [Aut omated message] The = Basophils #) system which generated this result tra nsmitted reference range : <=0.2. The reference r quynh was not used to int erpret this result as normal/abnormal . [place] 439852-10-26 11:43:00 Test Item Value Reference Range Interpretation Comments Microcyte (test code = 1+ *ABN*(04/24/22 Microcyte) 6:43 AM) [place] [address]-10-26 11:43:00 Test Item Value Reference Range Interpretation Comments WBC (test code = WBC) 10.8 3.7-10.4 [place] 439852-10-26 11:43:00 Test Item Value Reference Range Interpretation Comments RBC (test code = RBC) 3.62 4.20-5.40 [facility] CenterChambqcERUESOSPNL9583-22-66 11:43:00 Test Item Value Reference Range Interpretation Comments Hgb (test code = Hgb) 9.7 12.0-16.0 [place] [address]-10-26 11:43:00 Test Item Value Reference Range Interpretation Comments Hct (test code = Hct) 28.6 36.0-48.0 [place] [address]-10-26 11:43:00 Test Item Value Reference Range Interpretation Comments MCV (test code = MCV) 78.9 80.0-98.0 [place] 439852-10-26 11:43:00 Test Item Value Reference Range Interpretation Comments MCH (test code = MCH) 26.9 pg 27.0-31.0 [place] 439852-10-26 11:43:00 Test Item Value Reference Range Interpretation Comments MCHC (test code = MCHC) 34.1 32.0-36.0 [facility] CenterRbfumfnEXGQLXTOSC8565-41-26 11:43:00 Test Item Value Reference Range Interpretation Comments RDW (test code = RDW) 16.3 11.5-14.5 [facility] CenterLdcjeftVSNGAIROAU8400-14-54 11:43:00 Test Item Value Reference Range Interpretation Comments Platelet (test code = Platelet) 242 133-450 [facility] CenterVugmrwkBQVRSRTSYM0236-56-30 11:43:00 Test Item Value Reference Range Interpretation Comments MPV (test code = MPV) 8.7 7.4-10.[address] [facility] CenterAqzfozqKKKIZOZNV4479-08-10 11:43:00 Test Item Value Reference Range Interpretation Comments Chloride Lvl (test code = Chloride Lvl) 109 95-[address] [facility] CenterComkusbBHKZQKTJO8321-54-00 11:43:00 Test Item Value Reference Range Interpretation Comments CO2 (test code = CO2) [facility] CenterZsgjmhfTPPACHIYA2413-45-19 11:43:00 Test Item Value Reference Range Interpretation Comments Glucose Lvl (test code = Glucose Lvl) 93 70-[address] [facility] CenterXrfrobvVBIINJAHZ1166-03-85 11:43:00 Test Item Value Reference Range Interpretation Comments BUN (test code = BUN) 13 - [facility] CenterBkeojdfOMIBOHRKW5505-20-15 11:43:00 Test Item Value Reference Range Interpretation Comments Creatinine Lvl (test code = Creatinine 0.62 0.50-1.40 Lvl) [facility] CenterJuzmlzeYFYBRUOPK3600-78-68 11:43:00 Test Item Value Reference Range Interpretation Comments Sodium Lvl (test code = Sodium Lvl) 142 135-[address] [facility] CenterGhdfqabZBZPOFZRC6236-89-86 11:43:00 Test Item Value Reference Range Interpretation Comments Potassium Lvl (test code = Potassium 3.5 3.5-5.1 Lvl) [facility] CenterEhmoyuzJBMMXXOYO9051-30-33 11:43:00 Test Item Value Reference Range Interpretation Comments Chloride Lvl (test code = Chloride Lvl) 109 95-[address] CenterBryzmwaEIEUKZHEO1025-76-82 11:43:00 Test Item Value Reference Range Interpretation Comments CO2 (test code = CO2) [facility] CenterIofhnfrRPUAMUPRD4874-75-76 11:43:00 Test Item Value Reference Range Interpretation Comments Calcium Lvl (test code = Calcium Lvl) 8.9 8.5-10.5 [facility] HospitalAntbmibUMIYFIMLB3783-97-91 11:43:00 Test Item Value Reference Range Interpretation Comments Total Protein (test code = Total 6.5 6.4-8.4 Protein) [facility] CenterNxqzftqEJVELQPHR3347-46-25 11:43:00 Test Item Value Reference Range Interpretation Comments Albumin Lvl (test code = Albumin Lvl) 2.6 3.5-5.[address] [facility] CenterGcctvdmBXZJUNDNC9678-89-72 11:43:00 Test Item Value Reference Range Interpretation Comments ALT (test code = ALT) 16 See_Comment [Auto mated message] The system which ge nerated this result transmit fabiano reference range : <=65. The reference range was not used to interpr et this result as aleks l/abnormal. [facility] CenterGzlejnvSWKYHSFAR3732-99-09 11:43:00 Test Item Value Reference Range Interpretation Comments AST (test code = AST) 8 See_Comment [Auto mated message] The system which ge nerated this result transmit fabiano reference range : <=37. The reference range was not used to interpr et this result as aleks l/abnormal. [facility] HospitalFbspfpxUPRDESQXH7243-15-40 11:43:00 Test Item Value Reference Range Interpretation Comments Alk Phos (test code = Alk Phos) 93 39-[address] [facility] CenterQpfwxxaTHLLBODXD4513-56-90 11:43:00 Test Item Value Reference Range Interpretation Comments Bili Total (test code = Bili Total) 0.3 0.2-1.[address] [facility] CenterZgleakcXJDAHECSK3070-60-37 11:43:00 Test Item Value Reference Range Interpretation Comments AGAP (test code = AGAP) 10.5 10.0-20.0 [facility] HospitalTdnsjlwUDCDBJRJI7163-38-77 11:43:00 Test Item Value Reference Range Interpretation Comments B/C Ratio (test code = B/C Ratio) 21 1 6-[address] [facility] CenterTtzulpoYHFWGPDNI3884-86-20 11:43:00 Test Item Value Reference Range Interpretation Comments Globulin (test code = Globulin) 3.9 2.7-4.2 [facility] HospitalKomcpzpGBGZUGHGN9568-10-58 11:43:00 Test Item Value Reference Range Interpretation Comments A/G Ratio (test code = A/G Ratio) 0.7 1 0.7-1.[address] [facility] CenterZldbqqtFBXCUQKCK2546-82-88 11:43:00 Test Item Value Reference Range Interpretation Comments eGFR (test code = eGFR) 107 [facility] CenterGxqmxurMFKVWYEXMR2470-34-82 11:43:00 Test Item Value Reference Range Interpretation Comments Segs (test code = Segs) 75.4 45.0-75.0 [facility] CenterRhppzdqPPYVSVSIPL2958-90-28 11:43:00 Test Item Value Reference Range Interpretation Comments Lymphocytes (test code = Lymphocytes) 17.6 20.0-40.0 [facility] CenterPjdyihxZULOENLTDH8190-83-01 11:43:00 Test Item Value Reference Range Interpretation Comments Monocytes (test code = Monocytes) 5.9 2.0-12.0 [facility] CenterXyxtaykMCCRLYJODZ2269-89-66 11:43:00 Test Item Value Reference Range Interpretation Comments Eosinophils (test code = 0.5 See_Comment [A utomated message] The Eosinophils) system which ge nerated this result tra nsmitted reference range : <=4.0. The reference r quynh was not used to int erpret this result as normal/abnormal . [facility] CenterFylavttNFCRRBSZKZ8721-90-50 11:43:00 Test Item Value Reference Range Interpretation Comments Basophils (test code = 0.6 See_Comment [Aut omated message] The Basophils) system which ge nerated this result tra nsmitted reference range : <=1.0. The reference r quynh was not used to int erpret this result as normal/abnormal . [facility] CenterTighohoGZKQVKUIRJ7840-03-34 11:43:00 Test Item Value Reference Range Interpretation Comments Neutrophils # (test code = Neutrophils 8.1 1.5-8.1 #) [facility] CenterKaazhpuWJTAIWTOTL9697-89-99 11:43:00 Test Item Value Reference Range Interpretation Comments Lymphocytes # (test code = Lymphocytes 1.9 1.0-5.5 #) [facility] CenterHcogudsPTVHKHTIRP7369-73-77 11:43:00 Test Item Value Reference Range Interpretation Comments Monocytes # (test code 0.6 See_Comment [Aut omated message] The = Monocytes #) system which generated this result tra nsmitted reference range : <=0.8. The reference r quynh was not used to int erpret this result as normal/abnormal . [facility] CenterZxpezllRUHRZPZJDA7529-00-98 11:43:00 Test Item Value Reference Range Interpretation Comments Basophils # (test code 0.1 See_Comment [Aut omated message] The = Basophils #) system which generated this result tra nsmitted reference range : <=0.2. The reference r quynh was not used to int erpret this result as normal/abnormal . [facility] CenterVypxykfIJJNELQVIZ9019-22-32 11:43:00 Test Item Value Reference Range Interpretation Comments Microcyte (test code = 1+ *ABN*(04/24/22 Microcyte) 6:43 AM) [facility] CenterDhsgoadUUQUJRHZAQ4501-44-96 11:43:00 Test Item Value Reference Range Interpretation Comments WBC (test code = WBC) 10.8 3.7-10.4 [facility] CenterVoqybcnBFMPZWALXG1956-77-67 11:43:00 Test Item Value Reference Range Interpretation Comments RBC (test code = RBC) 3.62 4.20-5.40 [facility] CenterLlqfvqwOTJYOMAKML7148-33-73 11:43:00 Test Item Value Reference Range Interpretation Comments Hgb (test code = Hgb) 9.7 12.0-16.0 [facility] CenterQznzvehPREGIGXTRW3147-09-57 11:43:00 Test Item Value Reference Range Interpretation Comments Hct (test code = Hct) 28.6 36.0-48.0 [facility] CenterRplsbboNFNSLYLIGB3079-77-26 11:43:00 Test Item Value Reference Range Interpretation Comments MCV (test code = MCV) 78.9 80.0-98.0 [facility] CenterErobevuOJDLKPGSSX5822-29-61 11:43:00 Test Item Value Reference Range Interpretation Comments MCH (test code = MCH) 26.9 pg 27.0-31.[address] [facility] CenterQlugxtdJCXIWDDYP6180-09-89 11:43:00 Test Item Value Reference Range Interpretation Comments Calcium Lvl (test code = Calcium Lvl) 8.9 8.5-10.5 [facility] CenterEionwblQIOKKREGFN9904-93-32 11:43:00 Test Item Value Reference Range Interpretation Comments MCHC (test code = MCHC) 34.1 32.0-36.0 [facility] CenterKrwodrwEAFIZRJYDN9061-78-42 11:43:00 Test Item Value Reference Range Interpretation Comments RDW (test code = RDW) 16.3 11.5-14.5 [place]852-10-26 11:43:00 Test Item Value Reference Range Interpretation Comments Platelet (test code = Platelet) 242 133-450 [place] 439852-10-26 11:43:00 Test Item Value Reference Range Interpretation Comments MPV (test code = MPV) 8.7 7.4-10.4 [place] 675862-10-26 11:43:00 Test Item Value Reference Range Interpretation Comments Total Protein (test code = Total 6.5 6.4-8.4 Protein) [facility] CenterEvfreatBDNUNQZKN3633-51-77 11:43:00 Test Item Value Reference Range Interpretation Comments Albumin Lvl (test code = Albumin Lvl) 2.6 3.5-5.[address] [facility] CenterUplddbuVWJRFPLSE7889-37-25 11:43:00 Test Item Value Reference Range Interpretation Comments Glucose Lvl (test code = Glucose Lvl) 93 70-99 [place] 675862-10-26 11:43:00 Test Item Value Reference Range Interpretation Comments BUN (test code = BUN) 13 7-[address] [facility] CenterMfaztcbAURSULODC0060-48-39 11:43:00 Test Item Value Reference Range Interpretation Comments Creatinine Lvl (test code = Creatinine 0.62 0.50-1.40 Lvl) [facility] CenterVnscvowRTCOHQZPS6835-44-82 11:43:00 Test Item Value Reference Range Interpretation Comments Sodium Lvl (test code = Sodium Lvl) 142 135-[address] [facility] CenterRwnbmowYMDDXBBIB1978-81-37 11:43:00 Test Item Value Reference Range Interpretation Comments Potassium Lvl (test code = Potassium 3.5 3.5-5.1 Lvl) [facility] CenterDcsmgrjGIEANECKL7053-76-63 11:43:00 Test Item Value Reference Range Interpretation Comments Chloride Lvl (test code = Chloride Lvl) 109 95-[address] [facility] CenterQnmwjfbPRBJQHYNA8166-56-11 11:43:00 Test Item Value Reference Range Interpretation Comments CO2 (test code = CO2) [facility] CenterDqlrxsrFMPZKTKSZ8405-53-81 11:43:00 Test Item Value Reference Range Interpretation Comments Calcium Lvl (test code = Calcium Lvl) 8.9 8.5-10.[address] [facility] CenterAitvkkaQUMVXCUOM3000-41-61 11:43:00 Test Item Value Reference Range Interpretation Comments Total Protein (test code = Total 6.5 6.4-8.4 Protein) [facility] CenterThmufflMWXIJUNCW3128-22-07 11:43:00 Test Item Value Reference Range Interpretation Comments Albumin Lvl (test code = Albumin Lvl) 2.6 3.5-5.[address] [facility] CenterYkbbnoaEKWAWZMCG9637-58-80 11:43:00 Test Item Value Reference Range Interpretation Comments ALT (test code = ALT) 16 See_Comment [Auto mated message] The system which ge nerated this result transmit fabiano reference range : <=65. The reference range was not used to interpr et this result as aleks l/abnormal. [facility] HospitalDtzkbwxKHYSXVDAV1085-65-12 11:43:00 Test Item Value Reference Range Interpretation Comments AST (test code = AST) 8 See_Comment [Auto mated message] The system which ge nerated this result transmit fabiano reference range : <=37. The reference range was not used to interpr et this result as aleks l/abnormal. [facility] HospitalPpcdzbvGWZTEGTDK9779-71-31 11:43:00 Test Item Value Reference Range Interpretation Comments Alk Phos (test code = Alk Phos) 93 39-136 [facility] HospitalOyazbklFWNUDDNSK1388-66-01 11:43:00 Test Item Value Reference Range Interpretation Comments Bili Total (test code = Bili Total) 0.3 0.2-1.[address] [facility] CenterFlzunzgQWAGVAKPJ6173-78-84 11:43:00 Test Item Value Reference Range Interpretation Comments AGAP (test code = AGAP) 10.5 10.0-20.0 [facility] HospitalItejlqfMXVFNGHIA2620-21-44 11:43:00 Test Item Value Reference Range Interpretation Comments B/C Ratio (test code = B/C Ratio) 21 1 6-25 [facility] HospitalJujfnygAQHTHMFZC7440-34-21 11:43:00 Test Item Value Reference Range Interpretation Comments Globulin (test code = Globulin) 3.9 2.7-4.[address] [facility] CenterQecovcjZHCTWHKDS0451-08-27 11:43:00 Test Item Value Reference Range Interpretation Comments A/G Ratio (test code = A/G Ratio) 0.7 1 0.7-1.[address] [facility] CenterUemgkxfFQLOERXZD9985-11-51 11:43:00 Test Item Value Reference Range Interpretation Comments eGFR (test code = eGFR) 107 [place] [address]-10-26 11:43:00 Test Item Value Reference Range Interpretation Comments Segs (test code = Segs) 75.4 45.0-75.0 [place] [address]-10-26 11:43:00 Test Item Value Reference Range Interpretation Comments Lymphocytes (test code = Lymphocytes) 17.6 20.0-40.0 [place] [address]-10-26 11:43:00 Test Item Value Reference Range Interpretation Comments Monocytes (test code = Monocytes) 5.9 2.0-12.0 [place] [address]-10-26 11:43:00 Test Item Value Reference Range Interpretation Comments Eosinophils (test code = 0.5 See_Comment [A utomated message] The Eosinophils) system which ge nerated this result tra nsmitted reference range : <=4.0. The reference r quynh was not used to int erpret this result as normal/abnormal . [place] [address]-10-26 11:43:00 Test Item Value Reference Range Interpretation Comments Basophils (test code = 0.6 See_Comment [Aut omated message] The Basophils) system which ge nerated this result tra nsmitted reference range : <=1.0. The reference r quynh was not used to int erpret this result as normal/abnormal . [place] [address]-10-26 11:43:00 Test Item Value Reference Range Interpretation Comments Neutrophils # (test code = Neutrophils 8.1 1.5-8.1 #) [place] [address]-10-26 11:43:00 Test Item Value Reference Range Interpretation Comments Lymphocytes # (test code = Lymphocytes 1.9 1.0-5.5 #) [place] [address]-10-26 11:43:00 Test Item Value Reference Range Interpretation Comments Monocytes # (test code 0.6 See_Comment [Aut omated message] The = Monocytes #) system which generated this result tra nsmitted reference range : <=0.8. The reference r quynh was not used to int erpret this result as normal/abnormal . [place] [address]-10-26 11:43:00 Test Item Value Reference Range Interpretation Comments Basophils # (test code 0.1 See_Comment [Aut omated message] The = Basophils #) system which generated this result tra nsmitted reference range : <=0.2. The reference r quynh was not used to int erpret this result as normal/abnormal . [facility] CenterOtvoxqaRJGLPMWSUB2352-83-73 11:43:00 Test Item Value Reference Range Interpretation Comments Microcyte (test code = 1+ *ABN*(04/24/22 Microcyte) 6:43 AM) [facility] CenterRviztgwBRNOZEIVFQ0410-63-50 11:43:00 Test Item Value Reference Range Interpretation Comments WBC (test code = WBC) 10.8 3.7-10.4 [facility] CenterTwujzfqZJJQHWAUCE2949-00-30 11:43:00 Test Item Value Reference Range Interpretation Comments RBC (test code = RBC) 3.62 4.20-5.40 [facility] CenterIxropysXWETMTQNSR9713-04-51 11:43:00 Test Item Value Reference Range Interpretation Comments Hgb (test code = Hgb) 9.7 12.0-16.0 [facility] CenterLlwpqewPZDNLBBXFP2759-16-97 11:43:00 Test Item Value Reference Range Interpretation Comments Hct (test code = Hct) 28.6 36.0-48.0 [facility] CenterSirmuobKHZPBZYPDW2821-95-64 11:43:00 Test Item Value Reference Range Interpretation Comments MCV (test code = MCV) 78.9 80.0-98.0 [facility] CenterTecpriyUEAXXBNKOT5127-03-36 11:43:00 Test Item Value Reference Range Interpretation Comments MCH (test code = MCH) 26.9 pg 27.0-31.0 [facility] CenterPbgiwgrOKPPGUASYI6627-97-48 11:43:00 Test Item Value Reference Range Interpretation Comments MCHC (test code = MCHC) 34.1 32.0-36.0 [facility] CenterIvzypdmUQEPVSNWAG7696-89-85 11:43:00 Test Item Value Reference Range Interpretation Comments RDW (test code = RDW) 16.3 11.5-14.5 [place]852-10-26 11:43:00 Test Item Value Reference Range Interpretation Comments Platelet (test code = Platelet) 242 133-450 [facility] CenterIorirojMRBGHAMHFV8868-00-70 11:43:00 Test Item Value Reference Range Interpretation Comments MPV (test code = MPV) 8.7 7.4-10.[address] [facility] CenterGrtbrlkLXQQGOHPH9963-08-92 11:43:00 Test Item Value Reference Range Interpretation Comments ALT (test code = ALT) 16 See_Comment [Auto mated message] The system which ge nerated this result transmit fabiano reference range : <=65. The reference range was not used to interpr et this result as aleks l/abnormal. [facility] CenterRijsoepZRICIAVDC4544-16-56 11:43:00 Test Item Value Reference Range Interpretation Comments Glucose Lvl (test code = Glucose Lvl) 93 70-[address] [facility] CenterWmmwlrjNEOXRXRFO6522-81-94 11:43:00 Test Item Value Reference Range Interpretation Comments BUN (test code = BUN) 13 7-[address] [facility] CenterAfybsgjTVMIOGSPV7254-58-76 11:43:00 Test Item Value Reference Range Interpretation Comments Creatinine Lvl (test code = Creatinine 0.62 0.50-1.40 Lvl) [facility] CenterHxgtqovDZTHZJBDP2385-77-24 11:43:00 Test Item Value Reference Range Interpretation Comments Sodium Lvl (test code = Sodium Lvl) 142 135-[address] [facility] CenterFnkjhgqHGENFLWLL7156-57-12 11:43:00 Test Item Value Reference Range Interpretation Comments AST (test code = AST) 8 See_Comment [Auto mated message] The system which ge nerated this result transmit fabiano reference range : <=37. The reference range was not used to interpr et this result as aleks l/abnormal. [facility] CenterAytawqvQKFTTEYKJ7311-66-57 11:43:00 Test Item Value Reference Range Interpretation Comments Potassium Lvl (test code = Potassium 3.5 3.5-5.1 Lvl) [facility] CenterOtgktppHVCTEMKDK6421-24-10 11:43:00 Test Item Value Reference Range Interpretation Comments Chloride Lvl (test code = Chloride Lvl) 109 95-109 [facility] HospitalNofoeoyMRRDLOJAR1849-88-67 11:43:00 Test Item Value Reference Range Interpretation Comments CO2 (test code = CO2) 26 24-[address] [facility] CenterPzjpcztJAOSLLLDY3573-08-77 11:43:00 Test Item Value Reference Range Interpretation Comments Calcium Lvl (test code = Calcium Lvl) 8.9 8.5-10.[address] [facility] CenterTuzlgtzVEKGOVZXB3519-98-81 11:43:00 Test Item Value Reference Range Interpretation Comments Total Protein (test code = Total 6.5 6.4-8.4 Protein) [facility] CenterFbvbbrtPWPYRWVBK3710-92-29 11:43:00 Test Item Value Reference Range Interpretation Comments Albumin Lvl (test code = Albumin Lvl) 2.6 3.5-5.0 [facility] OgudyhlIYOUSTMTU3793-70-80 11:43:00 Test Item Value Reference Range Interpretation Comments ALT (test code = ALT) 16 See_Comment [Auto mated message] The system which ge nerated this result transmit fabiano reference range : <=65. The reference range was not used to interpr et this result as aleks l/abnormal. [facility] HospitalMpcbnwgTKJRQCMXN2625-51-77 11:43:00 Test Item Value Reference Range Interpretation Comments AST (test code = AST) 8 See_Comment [Auto mated message] The system which ge nerated this result transmit fabiano reference range : <=37. The reference range was not used to interpr et this result as aleks l/abnormal. [facility] HospitalUfhzzfiNHEYDNHQS4150-53-93 11:43:00 Test Item Value Reference Range Interpretation Comments Alk Phos (test code = Alk Phos) 93 39-136 [facility] HospitalZqmjwxmQHYMWCQBP4917-91-25 11:43:00 Test Item Value Reference Range Interpretation Comments Bili Total (test code = Bili Total) 0.3 0.2-1.3 [facility] HospitalGvxozghVBEWFCXWR4288-92-42 11:43:00 Test Item Value Reference Range Interpretation Comments Alk Phos (test code = Alk Phos) 93 39-136 [facility] HospitalFkrwknkDCJWBAYXM4754-02-06 11:43:00 Test Item Value Reference Range Interpretation Comments AGAP (test code = AGAP) 10.5 10.0-20.0 [facility] HospitalPpsfvjcSICJRXBPV0630-12-75 11:43:00 Test Item Value Reference Range Interpretation Comments Glucose Lvl (test code = Glucose Lvl) 93 70-99 [facility]wrzwuqNZPYHFXZK9078-29-73 11:43:00 Test Item Value Reference Range Interpretation Comments BUN (test code = BUN) 13 7-22 [facility] MdwovgiRXHFMEKZD9276-74-90 11:43:00 Test Item Value Reference Range Interpretation Comments Creatinine Lvl (test code = Creatinine 0.62 0.50-1.40 Lvl) [facility] HospitalAnxluhmZZZKGMOGG0795-70-54 11:43:00 Test Item Value Reference Range Interpretation Comments B/C Ratio (test code = B/C Ratio) 21 1 6-[address] [facility] CenterBjpgkbyIGBIWEMTH0687-29-48 11:43:00 Test Item Value Reference Range Interpretation Comments Sodium Lvl (test code = Sodium Lvl) 142 135-[address] [facility] CenterIgkwamuGWXBJOGOQ7537-19-87 11:43:00 Test Item Value Reference Range Interpretation Comments Potassium Lvl (test code = Potassium 3.5 3.5-5.1 Lvl) [facility] CenterFxgzawzDBJHJNZIK3295-21-61 11:43:00 Test Item Value Reference Range Interpretation Comments Chloride Lvl (test code = Chloride Lvl) 109 95-[address] [facility] CenterTzlgupkNZPLFDJCY7680-10-42 11:43:00 Test Item Value Reference Range Interpretation Comments CO2 (test code = CO2) 26 24-[address] [facility] CenterZorgnnmBWAKTRQMU4628-18-62 11:43:00 Test Item Value Reference Range Interpretation Comments Calcium Lvl (test code = Calcium Lvl) 8.9 8.5-10.[address] [facility] CenterOmkypkwLQBVXIOKJ7125-72-21 11:43:00 Test Item Value Reference Range Interpretation Comments Total Protein (test code = Total 6.5 6.4-8.4 Protein) [facility] CenterDfbsrxgPZFNFRKYI5548-71-62 11:43:00 Test Item Value Reference Range Interpretation Comments Albumin Lvl (test code = Albumin Lvl) 2.6 3.5-5.[address] [facility] CenterRjkxymiIEJLJISNW7147-96-98 11:43:00 Test Item Value Reference Range Interpretation Comments ALT (test code = ALT) 16 See_Comment [Auto mated message] The system which ge nerated this result transmit fabiano reference range : <=65. The reference range was not used to interpr et this result as aleks l/abnormal. [facility] CenterQojuzfiOROJCJYXJ1990-45-05 11:43:00 Test Item Value Reference Range Interpretation Comments AST (test code = AST) 8 See_Comment [Auto mated message] The system which ge nerated this result transmit fabiano reference range : <=37. The reference range was not used to interpr et this result as aleks l/abnormal. [facility] CenterOzwrnziYSCRQAKRA2955-05-21 11:43:00 Test Item Value Reference Range Interpretation Comments Alk Phos (test code = Alk Phos) 93 39-[address] [facility] CenterKgozzahMPCCOOUOZ3261-05-97 11:43:00 Test Item Value Reference Range Interpretation Comments Globulin (test code = Globulin) 3.9 2.7-4.[address] [facility] CenterQhlfxzcYZBLUTUQB3023-52-13 11:43:00 Test Item Value Reference Range Interpretation Comments Bili Total (test code = Bili Total) 0.3 0.2-1.[address] [facility] CenterMaceimcIMICKRYXZ2207-60-04 11:43:00 Test Item Value Reference Range Interpretation Comments AGAP (test code = AGAP) 10.5 10.0-20.[address] [facility] CenterGxkiskfBDHLIKDLS0020-65-67 11:43:00 Test Item Value Reference Range Interpretation Comments B/C Ratio (test code = B/C Ratio) 21 1 6-[address] [facility] CenterZncyfuyYVHYMYXOS4126-10-85 11:43:00 Test Item Value Reference Range Interpretation Comments Globulin (test code = Globulin) 3.9 2.7-4.[address] CenterGzwzokoDHDSYSWSJ6972-13-81 11:43:00 Test Item Value Reference Range Interpretation Comments A/G Ratio (test code = A/G Ratio) 0.7 1 0.7-1.[address] [facility] CenterUbtjoiqJGUSQZLAY8833-46-81 11:43:00 Test Item Value Reference Range Interpretation Comments eGFR (test code = eGFR) 107 [facility] CenterAibzjqoBRRGJIENMW9074-13-42 11:43:00 Test Item Value Reference Range Interpretation Comments Segs (test code = Segs) 75.4 45.0-75.0 [facility] CenterEjoxdubFEZDPKBEVX4982-47-72 11:43:00 Test Item Value Reference Range Interpretation Comments Lymphocytes (test code = Lymphocytes) 17.6 20.0-40.0 [facility] CenterMxkhqzmATLGIIJYVM1040-04-62 11:43:00 Test Item Value Reference Range Interpretation Comments Monocytes (test code = Monocytes) 5.9 2.0-12.0 [place] 439852-10-26 11:43:00 Test Item Value Reference Range Interpretation Comments Eosinophils (test code = 0.5 See_Comment [A utomated message] The Eosinophils) system which ge nerated this result tra nsmitted reference range : <=4.0. The reference r quynh was not used to int erpret this result as normal/abnormal . [facility] CenterChfhbyrVMGLDLDUQ1478-46-50 11:43:00 Test Item Value Reference Range Interpretation Comments A/G Ratio (test code = A/G Ratio) 0.7 1 0.7-1.6 [place] 439852-10-26 11:43:00 Test Item Value Reference Range Interpretation Comments Basophils (test code = 0.6 See_Comment [Aut omated message] The Basophils) system which ge nerated this result tra nsmitted reference range : <=1.0. The reference r quynh was not used to int erpret this result as normal/abnormal . [place] 439852-10-26 11:43:00 Test Item Value Reference Range Interpretation Comments Neutrophils # (test code = Neutrophils 8.1 1.5-8.1 #) [facility] CenterQbiadcsCPITWQHTZX1451-82-99 11:43:00 Test Item Value Reference Range Interpretation Comments Lymphocytes # (test code = Lymphocytes 1.9 1.0-5.5 #) [facility] CenterWvoxlxeIKUNOQKICK0438-11-66 11:43:00 Test Item Value Reference Range Interpretation Comments Monocytes # (test code 0.6 See_Comment [Aut omated message] The = Monocytes #) system which generated this result tra nsmitted reference range : <=0.8. The reference r quynh was not used to int erpret this result as normal/abnormal . [facility] CenterGfbuneiQJGMJCEWPM6879-30-68 11:43:00 Test Item Value Reference Range Interpretation Comments Basophils # (test code 0.1 See_Comment [Aut omated message] The = Basophils #) system which generated this result tra nsmitted reference range : <=0.2. The reference r quynh was not used to int erpret this result as normal/abnormal . [place] 439852-10-26 11:43:00 Test Item Value Reference Range Interpretation Comments Microcyte (test code = 1+ *ABN*(04/24/22 Microcyte) 6:43 AM) [place] [address]-10-26 11:43:00 Test Item Value Reference Range Interpretation Comments WBC (test code = WBC) 10.8 3.7-10.4 [place] 439852-10-26 11:43:00 Test Item Value Reference Range Interpretation Comments RBC (test code = RBC) 3.62 4.20-5.40 [place] 439852-10-26 11:43:00 Test Item Value Reference Range Interpretation Comments Hgb (test code = Hgb) 9.7 12.0-16.0 [facility]cbbjxvLPGJPARQNG5256-75-90 11:43:00 Test Item Value Reference Range Interpretation Comments Hct (test code = Hct) 28.6 36.0-48.0 [facility]WordyfhSFLHHOMFS3837-89-61 11:43:00 Test Item Value Reference Range Interpretation Comments eGFR (test code = eGFR) 107 [facility]WjbajzkBIWMBQBDWQ7530-90-43 11:43:00 Test Item Value Reference Range Interpretation Comments MCV (test code = MCV) 78.9 80.0-98.0 [facility] MichiganZfvsygwGAOBHCFZSF7941-35-18 11:43:00 Test Item Value Reference Range Interpretation Comments MCH (test code = MCH) 26.9 pg 27.0-31.0 [facility] MichiganNucloreIYODABCQKO4105-38-48 11:43:00 Test Item Value Reference Range Interpretation Comments MCHC (test code = MCHC) 34.1 32.0-36.0 [facility] CenterDdrgxonHDSKMFBFIY5691-82-08 11:43:00 Test Item Value Reference Range Interpretation Comments RDW (test code = RDW) 16.3 11.5-14.5 [facility] MichiganJjdqaliXIOAZPEHEW1169-45-09 11:43:00 Test Item Value Reference Range Interpretation Comments Platelet (test code = Platelet) 242 133-450 [facility] CenterKnvdxfuAPQIJJSHDF9253-84-64 11:43:00 Test Item Value Reference Range Interpretation Comments MPV (test code = MPV) 8.7 7.4-10.4 [place] [address]-10-26 11:43:00 Test Item Value Reference Range Interpretation Comments Segs (test code = Segs) 75.4 45.0-75.0 [facility] CenterSvcykwlMURMOYRRLO0481-06-42 11:43:00 Test Item Value Reference Range Interpretation Comments Lymphocytes (test code = Lymphocytes) 17.6 20.0-40.0 [place] 439852-10-26 11:43:00 Test Item Value Reference Range Interpretation Comments Monocytes (test code = Monocytes) 5.9 2.0-12.0 [place] 439852-10-26 11:43:00 Test Item Value Reference Range Interpretation Comments Eosinophils (test code = 0.5 See_Comment [A utomated message] The Eosinophils) system which ge nerated this result tra nsmitted reference range : <=4.0. The reference r quynh was not used to int erpret this result as normal/abnormal . [facility] CenterVpqaewuLMYQQWQVGV9691-02-96 11:43:00 Test Item Value Reference Range Interpretation Comments Basophils (test code = 0.6 See_Comment [Aut omated message] The Basophils) system which ge nerated this result tra nsmitted reference range : <=1.0. The reference r quynh was not used to int erpret this result as normal/abnormal . [place] 675862-10-26 11:43:00 Test Item Value Reference Range Interpretation Comments Bili Total (test code = Bili Total) 0.3 0.2-1.3 [facility] CenterJzghzokXZUKGHGKNO9153-52-45 11:43:00 Test Item Value Reference Range Interpretation Comments Neutrophils # (test code = Neutrophils 8.1 1.5-8.1 #) [place] 439852-10-26 11:43:00 Test Item Value Reference Range Interpretation Comments Lymphocytes # (test code = Lymphocytes 1.9 1.0-5.5 #) [facility] CenterCpxzgpkGGODGKPNBK6754-55-56 11:43:00 Test Item Value Reference Range Interpretation Comments Monocytes # (test code 0.6 See_Comment [Aut omated message] The = Monocytes #) system which generated this result tra nsmitted reference range : <=0.8. The reference r quynh was not used to int erpret this result as normal/abnormal . [place] 439852-10-26 11:43:00 Test Item Value Reference Range Interpretation Comments Basophils # (test code 0.1 See_Comment [Aut omated message] The = Basophils #) system which generated this result tra nsmitted reference range : <=0.2. The reference r quynh was not used to int erpret this result as normal/abnormal . [facility] CenterIehivnzNVGRHQYWJW8015-00-39 11:43:00 Test Item Value Reference Range Interpretation Comments Microcyte (test code = 1+ *ABN*(04/24/22 Microcyte) 6:43 AM) [place] 439852-10-26 11:43:00 Test Item Value Reference Range Interpretation Comments WBC (test code = WBC) 10.8 3.7-10.4 [place] 439852-10-26 11:43:00 Test Item Value Reference Range Interpretation Comments RBC (test code = RBC) 3.62 4.20-5.40 [facility] CenterSreapklPLUYQKPXQO6600-28-71 11:43:00 Test Item Value Reference Range Interpretation Comments Hgb (test code = Hgb) 9.7 12.0-16.0 [facility] CenterRwbmuhgVSLOZJBEZP7279-07-28 11:43:00 Test Item Value Reference Range Interpretation Comments Hct (test code = Hct) 28.6 36.0-48.0 [facility] CenterGqzwjsvBUBBMUDOPD8036-45-98 11:43:00 Test Item Value Reference Range Interpretation Comments MCV (test code = MCV) 78.9 80.0-98.[address] [facility] CenterDnyntlfHHHQVMRAJ0371-93-01 11:43:00 Test Item Value Reference Range Interpretation Comments AGAP (test code = AGAP) 10.5 10.0-20.0 [facility] CenterCskfqbiVYCYTHEESE5847-88-96 11:43:00 Test Item Value Reference Range Interpretation Comments MCH (test code = MCH) 26.9 pg 27.0-31.0 [facility] CenterFihammnJGOFHTEBOE1753-56-20 11:43:00 Test Item Value Reference Range Interpretation Comments MCHC (test code = MCHC) 34.1 32.0-36.0 [facility] CenterWwpzujkLTJFRKCNOT5018-70-78 11:43:00 Test Item Value Reference Range Interpretation Comments RDW (test code = RDW) 16.3 11.5-14.5 [facility] CenterWggevqfTISBNUPVHW0958-34-03 11:43:00 Test Item Value Reference Range Interpretation Comments Platelet (test code = Platelet) 242 133-450 [facility] CenterKamqzmcHSKLKFBBKC6974-11-38 11:43:00 Test Item Value Reference Range Interpretation Comments MPV (test code = MPV) 8.7 7.4-10.[address] [facility] CenterSlxvqjcYPIGOYNQE3083-42-04 11:43:00 Test Item Value Reference Range Interpretation Comments Glucose Lvl (test code = Glucose Lvl) 93 70-[address] [facility] CenterWmqgdgpUMZGFNPAH6358-50-55 11:43:00 Test Item Value Reference Range Interpretation Comments BUN (test code = BUN) 13 7-[address] [facility] CenterIdgalahLABMODRLA8951-39-49 11:43:00 Test Item Value Reference Range Interpretation Comments Creatinine Lvl (test code = Creatinine 0.62 0.50-1.40 Lvl) [facility] CenterQjgxifpPUTFQPDWY1414-64-72 11:43:00 Test Item Value Reference Range Interpretation Comments Sodium Lvl (test code = Sodium Lvl) 142 135-[address] [facility] CenterDrbkfapJYKLDXRLQ4538-09-86 11:43:00 Test Item Value Reference Range Interpretation Comments Potassium Lvl (test code = Potassium 3.5 3.5-5.1 Lvl) [facility] CenterVzklbdtSXBRHBLGP5840-83-47 11:43:00 Test Item Value Reference Range Interpretation Comments Chloride Lvl (test code = Chloride Lvl) 109 95-[address] CenterHltktimKRPWXNLWN9699-87-66 11:43:00 Test Item Value Reference Range Interpretation Comments CO2 (test code = CO2) 26 24-32 [place] 675862-10-26 11:43:00 Test Item Value Reference Range Interpretation Comments Calcium Lvl (test code = Calcium Lvl) 8.9 8.5-10.[address] [facility] CenterUsrlghmVTGRYVDUS0655-66-43 11:43:00 Test Item Value Reference Range Interpretation Comments Total Protein (test code = Total 6.5 6.4-8.4 Protein) [facility] CenterOxbmrkiVNRRGCYVR5494-30-84 11:43:00 Test Item Value Reference Range Interpretation Comments Albumin Lvl (test code = Albumin Lvl) 2.6 3.5-5.[address] [facility] CenterUmfjsurELNPXFRSB5909-95-67 11:43:00 Test Item Value Reference Range Interpretation Comments ALT (test code = ALT) 16 See_Comment [Auto mated message] The system which ge nerated this result transmit fabiano reference range : <=65. The reference range was not used to interpr et this result as aleks l/abnormal. [facility] CenterNshhfdoOORFALDQN5688-34-70 11:43:00 Test Item Value Reference Range Interpretation Comments AST (test code = AST) 8 See_Comment [Auto mated message] The system which ge nerated this result transmit fabiano reference range : <=37. The reference range was not used to interpr et this result as aleks l/abnormal. [facility] CenterQkvjcbdTQMCWBYVS1924-71-07 11:43:00 Test Item Value Reference Range Interpretation Comments Alk Phos (test code = Alk Phos) 93 39-[address] [facility] CenterYmkecjnBVOQCZSBG8447-36-29 11:43:00 Test Item Value Reference Range Interpretation Comments Bili Total (test code = Bili Total) 0.3 0.2-1.[address] [facility] CenterNgiqxkgJQECZLKME7123-75-53 11:43:00 Test Item Value Reference Range Interpretation Comments AGAP (test code = AGAP) 10.5 10.0-20.[address] [facility] CenterCgieslgKDROXZXKT1023-15-09 11:43:00 Test Item Value Reference Range Interpretation Comments B/C Ratio (test code = B/C Ratio) 21 12-[address] [facility] CenterBjalxwfSTKVQWDPZ0956-57-38 11:43:00 Test Item Value Reference Range Interpretation Comments Globulin (test code = Globulin) 3.9 2.7-4.[address] [facility] CenterJbdltmnNENNSDFVD6476-67-43 11:43:00 Test Item Value Reference Range Interpretation Comments A/G Ratio (test code = A/G Ratio) 0.7 1 0.7-1.[address] [facility] CenterRxjnqzpZUFIYKTLB9300-54-43 11:43:00 Test Item Value Reference Range Interpretation Comments eGFR (test code = eGFR) 107 [facility] CenterQjnvtqwLZTRSFTFFC4254-57-04 11:43:00 Test Item Value Reference Range Interpretation Comments Segs (test code = Segs) 75.4 45.0-75.0 [facility] CenterAxtcankZOUGSGCWGH5514-51-69 11:43:00 Test Item Value Reference Range Interpretation Comments Lymphocytes (test code = Lymphocytes) 17.6 20.0-40.0 [facility] CenterLomaxezVLCWFODHKN2456-97-72 11:43:00 Test Item Value Reference Range Interpretation Comments Monocytes (test code = Monocytes) 5.9 2.0-12.[address] [facility] CenterUrtsibwJJCAOGXZJ3525-20-28 11:43:00 Test Item Value Reference Range Interpretation Comments B/C Ratio (test code = B/C Ratio) 21 12-22 [facility] CenterBfamtotHNFDAFCFUJ3445-64-08 11:43:00 Test Item Value Reference Range Interpretation Comments Eosinophils (test code = 0.5 See_Comment [A utomated message] The Eosinophils) system which ge nerated this result tra nsmitted reference range : <=4.0. The reference r quynh was not used to int erpret this result as normal/abnormal . [facility] CenterJeagfgjZBRWPIUXLK0312-55-14 11:43:00 Test Item Value Reference Range Interpretation Comments Basophils (test code = 0.6 See_Comment [Aut omated message] The Basophils) system which ge nerated this result tra nsmitted reference range : <=1.0. The reference r quynh was not used to int erpret this result as normal/abnormal . [facility] CenterXneqncmZLPSMQFBLZ0799-95-65 11:43:00 Test Item Value Reference Range Interpretation Comments Neutrophils # (test code = Neutrophils 8.1 1.5-8.1 #) [facility] CenterXbycagjVQZRISUEVT1607-48-00 11:43:00 Test Item Value Reference Range Interpretation Comments Lymphocytes # (test code = Lymphocytes 1.9 1.0-5.5 #) [place] 439852-10-26 11:43:00 Test Item Value Reference Range Interpretation Comments Monocytes # (test code 0.6 See_Comment [Aut omated message] The = Monocytes #) system which generated this result tra nsmitted reference range : <=0.8. The reference r quynh was not used to int erpret this result as normal/abnormal . [place] [address]-10-26 11:43:00 Test Item Value Reference Range Interpretation Comments Basophils # (test code 0.1 See_Comment [Aut omated message] The = Basophils #) system which generated this result tra nsmitted reference range : <=0.2. The reference r quynh was not used to int erpret this result as normal/abnormal . [facility] CenterAsgsfsmGOIMMYONON0261-11-94 11:43:00 Test Item Value Reference Range Interpretation Comments Microcyte (test code = 1+ *ABN*(04/24/22 Microcyte) 6:43 AM) [place] 439852-10-26 11:43:00 Test Item Value Reference Range Interpretation Comments WBC (test code = WBC) 10.8 3.7-10.4 [place] [address]-10-26 11:43:00 Test Item Value Reference Range Interpretation Comments RBC (test code = RBC) 3.62 4.20-5.40 [place] 439852-10-26 11:43:00 Test Item Value Reference Range Interpretation Comments Hgb (test code = Hgb) 9.7 12.0-16.0 [place] [address]-10-26 11:43:00 Test Item Value Reference Range Interpretation Comments Hct (test code = Hct) 28.6 36.0-48.0 [place] [address]-10-26 11:43:00 Test Item Value Reference Range Interpretation Comments MCV (test code = MCV) 78.9 80.0-98.0 [facility] CenterBcztudnUZAWPNNSLW9463-47-73 11:43:00 Test Item Value Reference Range Interpretation Comments MCH (test code = MCH) 26.9 pg 27.0-31.0 [facility] CenterDsqiaorVMQWSMGCGZ6503-70-15 11:43:00 Test Item Value Reference Range Interpretation Comments MCHC (test code = MCHC) 34.1 32.0-36.0 [facility] CenterZxkewfbPJGDJKSHSV0478-87-69 11:43:00 Test Item Value Reference Range Interpretation Comments RDW (test code = RDW) 16.3 11.5-14.5 [facility] CenterFvtxwdfWOCEIUOSYV4668-14-44 11:43:00 Test Item Value Reference Range Interpretation Comments Platelet (test code = Platelet) 242 133-450 [facility] CenterKnorkseUCUYULXGXX3444-18-12 11:43:00 Test Item Value Reference Range Interpretation Comments MPV (test code = MPV) 8.7 7.4-10.[address] [facility] CenterSuifkvrVNZAUPHPZ7043-10-70 11:43:00 Test Item Value Reference Range Interpretation Comments Globulin (test code = Globulin) 3.9 2.7-4.[address] [facility] CenterQvmieceLPKIZISDX6165-32-86 11:43:00 Test Item Value Reference Range Interpretation Comments A/G Ratio (test code = A/G Ratio) 0.7 1 0.7-1.[address] [facility] CenterIzasxfoAESZNTBEF0772-24-59 11:43:00 Test Item Value Reference Range Interpretation Comments Glucose Lvl (test code = Glucose Lvl) 93 70-[address] CenterBqajxxyHWCJWYKTS8914-67-93 11:43:00 Test Item Value Reference Range Interpretation Comments BUN (test code = BUN) 13 7-[address] [facility] CenterKcalakdLLXRYACZE2751-22-24 11:43:00 Test Item Value Reference Range Interpretation Comments Creatinine Lvl (test code = Creatinine 0.62 0.50-1.40 Lvl) [facility] CenterPknscglGACHIIBRA6546-10-93 11:43:00 Test Item Value Reference Range Interpretation Comments Sodium Lvl (test code = Sodium Lvl) 142 135-[address] [facility] CenterCemyjoqSRAFMXFGZ5498-58-88 11:43:00 Test Item Value Reference Range Interpretation Comments Potassium Lvl (test code = Potassium 3.5 3.5-5.1 Lvl) [facility]BbewqjrFZFLSKNKF4153-[facility]-22 11:43:00 Test Item Value Reference Range Interpretation Comments Chloride Lvl (test code = Chloride Lvl) 109 95-[address] [facility] CenterWlctzyfMSUAOEWYI0649-42-35 11:43:00 Test Item Value Reference Range Interpretation Comments CO2 (test code = CO2) 26 24-[address] CenterUuozkxeZSBAHUGIK9521-27-10 11:43:00 Test Item Value Reference Range Interpretation Comments Calcium Lvl (test code = Calcium Lvl) 8.9 8.5-10.5 [facility] HospitalIzngaitKVQKIWKSC8754-36-23 11:43:00 Test Item Value Reference Range Interpretation Comments Total Protein (test code = Total 6.5 6.4-8.4 Protein) [facility] CenterXzekaboNVERBSWQR0126-30-06 11:43:00 Test Item Value Reference Range Interpretation Comments Albumin Lvl (test code = Albumin Lvl) 2.6 3.5-5.[address] [facility] CenterMarjyqtMWGVZAWFS0857-46-37 11:43:00 Test Item Value Reference Range Interpretation Comments ALT (test code = ALT) 16 See_Comment [Auto mated message] The system which ge nerated this result transmit fabiano reference range : <=65. The reference range was not used to interpr et this result as aleks l/abnormal. [facility] CenterQsoawcrPVMPXIQHU3781-16-71 11:43:00 Test Item Value Reference Range Interpretation Comments AST (test code = AST) 8 See_Comment [Auto mated message] The system which ge nerated this result transmit fabiano reference range : <=37. The reference range was not used to interpr et this result as aleks l/abnormal. [facility] HospitalYjptiuyASXOJVSUH0055-88-78 11:43:00 Test Item Value Reference Range Interpretation Comments Alk Phos (test code = Alk Phos) 93 39-[address] [facility] CenterIpkcmnkTEHEGNLNM7217-46-39 11:43:00 Test Item Value Reference Range Interpretation Comments Bili Total (test code = Bili Total) 0.3 0.2-1.3 [facility] HospitalOmxdbwxGUQVXIDUQ1450-28-25 11:43:00 Test Item Value Reference Range Interpretation Comments AGAP (test code = AGAP) 10.5 10.0-20.0 [place] [address]-10-26 11:43:00 Test Item Value Reference Range Interpretation Comments B/C Ratio (test code = B/C Ratio) 21 1 6-25 [place] [address]-10-26 11:43:00 Test Item Value Reference Range Interpretation Comments Globulin (test code = Globulin) 3.9 2.7-4.2 [place] [address]-10-26 11:43:00 Test Item Value Reference Range Interpretation Comments A/G Ratio (test code = A/G Ratio) 0.7 1 0.7-1.6 [place] [address]-10-26 11:43:00 Test Item Value Reference Range Interpretation Comments eGFR (test code = eGFR) 107 [place] [address]-10-26 11:43:00 Test Item Value Reference Range Interpretation Comments Segs (test code = Segs) 75.4 45.0-75.0 [place] [address]-10-26 11:43:00 Test Item Value Reference Range Interpretation Comments Lymphocytes (test code = Lymphocytes) 17.6 20.0-40.0 [place] [address]-10-26 11:43:00 Test Item Value Reference Range Interpretation Comments Monocytes (test code = Monocytes) 5.9 2.0-12.0 [place] [address]-10-26 11:43:00 Test Item Value Reference Range Interpretation Comments Eosinophils (test code = 0.5 See_Comment [A utomated message] The Eosinophils) system which ge nerated this result tra nsmitted reference range : <=4.0. The reference r quynh was not used to int erpret this result as normal/abnormal . [place] 439852-10-26 11:43:00 Test Item Value Reference Range Interpretation Comments Basophils (test code = 0.6 See_Comment [Aut omated message] The Basophils) system which ge nerated this result tra nsmitted reference range : <=1.0. The reference r quynh was not used to int erpret this result as normal/abnormal . [place] [address]-10-26 11:43:00 Test Item Value Reference Range Interpretation Comments Neutrophils # (test code = Neutrophils 8.1 1.5-8.1 #) [place] 439852-10-26 11:43:00 Test Item Value Reference Range Interpretation Comments Lymphocytes # (test code = Lymphocytes 1.9 1.0-5.5 #) [facility]YjmcwitUXRWHRRYYF8900-24-03 11:43:00 Test Item Value Reference Range Interpretation Comments Monocytes # (test code 0.6 See_Comment [Aut omated message] The = Monocytes #) system which generated this result tra nsmitted reference range : <=0.8. The reference r quynh was not used to int erpret this result as normal/abnormal . [place] 439852-10-26 11:43:00 Test Item Value Reference Range Interpretation Comments Basophils # (test code 0.1 See_Comment [Aut omated message] The = Basophils #) system which generated this result tra nsmitted reference range : <=0.2. The reference r quynh was not used to int erpret this result as normal/abnormal . [place] 439852-10-26 11:43:00 Test Item Value Reference Range Interpretation Comments Microcyte (test code = 1+ *ABN*(04/24/22 Microcyte) 6:43 AM) [place] [address]-10-26 11:43:00 Test Item Value Reference Range Interpretation Comments WBC (test code = WBC) 10.8 3.7-10.4 [place] 439852-10-26 11:43:00 Test Item Value Reference Range Interpretation Comments RBC (test code = RBC) 3.62 4.20-5.40 [place] 439852-10-26 11:43:00 Test Item Value Reference Range Interpretation Comments Hgb (test code = Hgb) 9.7 12.0-16.0 [place] 439852-10-26 11:43:00 Test Item Value Reference Range Interpretation Comments Hct (test code = Hct) 28.6 36.0-48.0 [place] [address]-10-26 11:43:00 Test Item Value Reference Range Interpretation Comments MCV (test code = MCV) 78.9 80.0-98.0 [place] 439852-10-26 11:43:00 Test Item Value Reference Range Interpretation Comments MCH (test code = MCH) 26.9 pg 27.0-31.0 [place] 439852-10-26 11:43:00 Test Item Value Reference Range Interpretation Comments MCHC (test code = MCHC) 34.1 32.0-36.0 [facility] CenterXazwkzoGACNDZBQBD8365-86-07 11:43:00 Test Item Value Reference Range Interpretation Comments RDW (test code = RDW) 16.3 11.5-14.5 [place] 439852-10-26 11:43:00 Test Item Value Reference Range Interpretation Comments Platelet (test code = Platelet) 242 133-450 [facility] CenterBowsvzsOXTPKRYNXB0227-29-08 11:43:00 Test Item Value Reference Range Interpretation Comments MPV (test code = MPV) 8.7 7.4-10.[address] [facility] CenterEzgchcaLBNQPAFLN9653-52-89 11:43:00 Test Item Value Reference Range Interpretation Comments eGFR (test code = eGFR) 107 [facility] CenterKpvgqptFBQMQSHMIQ5017-47-70 11:43:00 Test Item Value Reference Range Interpretation Comments Segs (test code = Segs) 75.4 45.0-75.0 [place] 439852-10-26 11:43:00 Test Item Value Reference Range Interpretation Comments Lymphocytes (test code = Lymphocytes) 17.6 20.0-40.[address] [facility] CenterTvqtrptDMBCRJUGY6937-92-44 11:43:00 Test Item Value Reference Range Interpretation Comments Glucose Lvl (test code = Glucose Lvl) 93 70-[address] [facility] CenterAihoewxKZCEWJBHL9529-99-33 11:43:00 Test Item Value Reference Range Interpretation Comments BUN (test code = BUN) 13 7-[address] [facility] CenterXnthyukHIIWONKXM4050-59-59 11:43:00 Test Item Value Reference Range Interpretation Comments Creatinine Lvl (test code = Creatinine 0.62 0.50-1.40 Lvl) [facility] CenterHgellqoVYGDPKNCG2502-87-06 11:43:00 Test Item Value Reference Range Interpretation Comments Sodium Lvl (test code = Sodium Lvl) 142 135-[address] [facility] CenterDskczmoTHMXUIJRW3955-52-03 11:43:00 Test Item Value Reference Range Interpretation Comments Potassium Lvl (test code = Potassium 3.5 3.5-5.1 Lvl) [facility] CenterPpefspiHBNVWTWTM1580-74-92 11:43:00 Test Item Value Reference Range Interpretation Comments Chloride Lvl (test code = Chloride Lvl) 109 95-[address] [facility] CenterMnsdfakAJLUHFXHB4252-45-83 11:43:00 Test Item Value Reference Range Interpretation Comments CO2 (test code = CO2) 26 24-32 [facility]LzkphakDYSHXSFYR2975-84-45 11:43:00 Test Item Value Reference Range Interpretation Comments Calcium Lvl (test code = Calcium Lvl) 8.9 8.5-10.[address] [facility] CenterAomeksuYWVBZSBXE5143-19-20 11:43:00 Test Item Value Reference Range Interpretation Comments Total Protein (test code = Total 6.5 6.4-8.4 Protein) [facility] CenterYpugcrwVOZZSKDVI8578-39-15 11:43:00 Test Item Value Reference Range Interpretation Comments Albumin Lvl (test code = Albumin Lvl) 2.6 3.5-5.[address] [facility] CenterXvboryjDKQVVJCBX5557-88-77 11:43:00 Test Item Value Reference Range Interpretation Comments ALT (test code = ALT) 16 See_Comment [Auto mated message] The system which ge nerated this result transmit fabiano reference range : <=65. The reference range was not used to interpr et this result as aleks l/abnormal. [facility] CenterIcrhfceHYXOIUNNA1797-89-27 11:43:00 Test Item Value Reference Range Interpretation Comments AST (test code = AST) 8 See_Comment [Auto mated message] The system which ge nerated this result transmit fabiano reference range : <=37. The reference range was not used to interpr et this result as aleks l/abnormal. [facility] CenterZhicrjgVSNTTDDTI7629-75-91 11:43:00 Test Item Value Reference Range Interpretation Comments Alk Phos (test code = Alk Phos) 93 39-[address] [facility] CenterVhivryvKVITNODRX7084-73-08 11:43:00 Test Item Value Reference Range Interpretation Comments Bili Total (test code = Bili Total) 0.3 0.2-1.[address] [facility] CenterBueahzpVEAAHCJWM2367-62-63 11:43:00 Test Item Value Reference Range Interpretation Comments AGAP (test code = AGAP) 10.5 10.0-20.[address] [facility] CenterEfuitzcCZNUUMCFS5332-49-35 11:43:00 Test Item Value Reference Range Interpretation Comments B/C Ratio (test code = B/C Ratio) 21 1 6-[address] [facility] CenterBsskiulLRIDSOGKY6644-01-10 11:43:00 Test Item Value Reference Range Interpretation Comments Globulin (test code = Globulin) 3.9 2.7-4.2 [place] 675862-10-26 11:43:00 Test Item Value Reference Range Interpretation Comments A/G Ratio (test code = A/G Ratio) 0.7 1 0.7-1.6 [place] [address]-10-26 11:43:00 Test Item Value Reference Range Interpretation Comments eGFR (test code = eGFR) 107 [place] 439852-10-26 11:43:00 Test Item Value Reference Range Interpretation Comments Segs (test code = Segs) 75.4 45.0-75.0 [place] [address]-10-26 11:43:00 Test Item Value Reference Range Interpretation Comments Lymphocytes (test code = Lymphocytes) 17.6 20.0-40.0 [place] [address]-10-26 11:43:00 Test Item Value Reference Range Interpretation Comments Monocytes (test code = Monocytes) 5.9 2.0-12.0 [place] [address]-10-26 11:43:00 Test Item Value Reference Range Interpretation Comments Eosinophils (test code = 0.5 See_Comment [A utomated message] The Eosinophils) system which ge nerated this result tra nsmitted reference range : <=4.0. The reference r quynh was not used to int erpret this result as normal/abnormal . [place] [address]-10-26 11:43:00 Test Item Value Reference Range Interpretation Comments Basophils (test code = 0.6 See_Comment [Aut omated message] The Basophils) system which ge nerated this result tra nsmitted reference range : <=1.0. The reference r quynh was not used to int erpret this result as normal/abnormal . [place] 439852-10-26 11:43:00 Test Item Value Reference Range Interpretation Comments Neutrophils # (test code = Neutrophils 8.1 1.5-8.1 #) [place] [address]-10-26 11:43:00 Test Item Value Reference Range Interpretation Comments Lymphocytes # (test code = Lymphocytes 1.9 1.0-5.5 #) [place] 439852-10-26 11:43:00 Test Item Value Reference Range Interpretation Comments Monocytes # (test code 0.6 See_Comment [Aut omated message] The = Monocytes #) system which generated this result tra nsmitted reference range : <=0.8. The reference r quynh was not used to int erpret this result as normal/abnormal . [facility] CenterBlptknbCTMHWVZQGD6543-59-70 11:43:00 Test Item Value Reference Range Interpretation Comments Basophils # (test code 0.1 See_Comment [Aut omated message] The = Basophils #) system which generated this result tra nsmitted reference range : <=0.2. The reference r quynh was not used to int erpret this result as normal/abnormal . [facility] CenterIghtumzZHMZKCKJVN6800-04-97 11:43:00 Test Item Value Reference Range Interpretation Comments Microcyte (test code = 1+ *ABN*(04/24/22 Microcyte) 6:43 AM) [place] 439852-10-26 11:43:00 Test Item Value Reference Range Interpretation Comments WBC (test code = WBC) 10.8 3.7-10.4 [place] 439852-10-26 11:43:00 Test Item Value Reference Range Interpretation Comments RBC (test code = RBC) 3.62 4.20-5.40 [place] 439852-10-26 11:43:00 Test Item Value Reference Range Interpretation Comments Hgb (test code = Hgb) 9.7 12.0-16.0 [place] 439852-10-26 11:43:00 Test Item Value Reference Range Interpretation Comments Hct (test code = Hct) 28.6 36.0-48.0 [place] 439852-10-26 11:43:00 Test Item Value Reference Range Interpretation Comments MCV (test code = MCV) 78.9 80.0-98.0 [place] 439852-10-26 11:43:00 Test Item Value Reference Range Interpretation Comments MCH (test code = MCH) 26.9 pg 27.0-31.0 [place] 439852-10-26 11:43:00 Test Item Value Reference Range Interpretation Comments MCHC (test code = MCHC) 34.1 32.0-36.0 [place] 439852-10-26 11:43:00 Test Item Value Reference Range Interpretation Comments RDW (test code = RDW) 16.3 11.5-14.5 [place] 439852-10-26 11:43:00 Test Item Value Reference Range Interpretation Comments Platelet (test code = Platelet) 242 133-450 [place] 439852-10-26 11:43:00 Test Item Value Reference Range Interpretation Comments MPV (test code = MPV) 8.7 7.4-10.4 [place] [address]-10-26 11:43:00 Test Item Value Reference Range Interpretation Comments Monocytes (test code = Monocytes) 5.9 2.0-12.0 [place] 439852-10-26 11:43:00 Test Item Value Reference Range Interpretation Comments Eosinophils (test code = 0.5 See_Comment [A utomated message] The Eosinophils) system which ge nerated this result tra nsmitted reference range : <=4.0. The reference r quynh was not used to int erpret this result as normal/abnormal . [facility] CenterPkofrfxMYNJOWNHU6351-66-61 11:43:00 Test Item Value Reference Range Interpretation Comments Glucose Lvl (test code = Glucose Lvl) 93 70-[address] [facility] CenterKfnkvrpDIRKJHMMD3380-93-09 11:43:00 Test Item Value Reference Range Interpretation Comments BUN (test code = BUN) 13 7-22 [place] [address]-10-26 11:43:00 Test Item Value Reference Range Interpretation Comments Creatinine Lvl (test code = Creatinine 0.62 0.50-1.40 Lvl) [facility] CenterJogoonrMABTKNZDE1298-45-76 11:43:00 Test Item Value Reference Range Interpretation Comments Sodium Lvl (test code = Sodium Lvl) 142 135-[address] [facility] CenterCmltsjiLLABNDBEX8349-02-10 11:43:00 Test Item Value Reference Range Interpretation Comments Potassium Lvl (test code = Potassium 3.5 3.5-5.1 Lvl) [facility] CenterIdjdjftNCEYKHVMC9227-32-94 11:43:00 Test Item Value Reference Range Interpretation Comments Chloride Lvl (test code = Chloride Lvl) 109 95-[address] [facility] CenterCawyeugPFQRMGOVT8036-06-48 11:43:00 Test Item Value Reference Range Interpretation Comments CO2 (test code = CO2) 26 24-32 [place] 675862-10-26 11:43:00 Test Item Value Reference Range Interpretation Comments Calcium Lvl (test code = Calcium Lvl) 8.9 8.5-10.[address] [facility] CenterWchcixkFKVRWPYXA3893-72-92 11:43:00 Test Item Value Reference Range Interpretation Comments Total Protein (test code = Total 6.5 6.4-8.4 Protein) [facility] CenterNvsiutbEYLEPWWEBQ8861-32-22 11:43:00 Test Item Value Reference Range Interpretation Comments Basophils (test code = 0.6 See_Comment [Aut omated message] The Basophils) system which ge nerated this result tra nsmitted reference range : <=1.0. The reference r quynh was not used to int erpret this result as normal/abnormal . [facility] CenterSafgtgaPIZKYXZVA7754-34-78 11:43:00 Test Item Value Reference Range Interpretation Comments Albumin Lvl (test code = Albumin Lvl) 2.6 3.5-5.[address] [facility] CenterBwcvbggSYVTFQFXC2718-57-43 11:43:00 Test Item Value Reference Range Interpretation Comments ALT (test code = ALT) 16 See_Comment [Auto mated message] The system which ge nerated this result transmit fabiano reference range : <=65. The reference range was not used to interpr et this result as aleks l/abnormal. [facility] CenterEuzmlzjZSVIXAWRT4952-78-86 11:43:00 Test Item Value Reference Range Interpretation Comments AST (test code = AST) 8 See_Comment [Auto mated message] The system which ge nerated this result transmit fabiano reference range : <=37. The reference range was not used to interpr et this result as aleks l/abnormal. [facility] CenterDeorbrkPQPORGSKK7648-61-06 11:43:00 Test Item Value Reference Range Interpretation Comments Alk Phos (test code = Alk Phos) 93 39-[address] [facility] CenterDfvhobnZJZWOOSXI6688-77-71 11:43:00 Test Item Value Reference Range Interpretation Comments Bili Total (test code = Bili Total) 0.3 0.2-1.[address] [facility] CenterTfxzaehVXUUQTWDV7075-94-35 11:43:00 Test Item Value Reference Range Interpretation Comments AGAP (test code = AGAP) 10.5 10.0-20.[address] [facility] CenterLxbwqabQQEHBXOMO1097-96-96 11:43:00 Test Item Value Reference Range Interpretation Comments B/C Ratio (test code = B/C Ratio) 21 1 6-[address] [facility] CenterOfndtchABMLHWPUO6140-50-14 11:43:00 Test Item Value Reference Range Interpretation Comments Globulin (test code = Globulin) 3.9 2.7-4.2 [place] 675862-10-26 11:43:00 Test Item Value Reference Range Interpretation Comments A/G Ratio (test code = A/G Ratio) 0.7 1 0.7-1.6 [place] [address]-10-26 11:43:00 Test Item Value Reference Range Interpretation Comments eGFR (test code = eGFR) 107 [place] 439852-10-26 11:43:00 Test Item Value Reference Range Interpretation Comments Segs (test code = Segs) 75.4 45.0-75.0 [place] [address]-10-26 11:43:00 Test Item Value Reference Range Interpretation Comments Lymphocytes (test code = Lymphocytes) 17.6 20.0-40.0 [place] [address]-10-26 11:43:00 Test Item Value Reference Range Interpretation Comments Monocytes (test code = Monocytes) 5.9 2.0-12.0 [place] [address]-10-26 11:43:00 Test Item Value Reference Range Interpretation Comments Eosinophils (test code = 0.5 See_Comment [A utomated message] The Eosinophils) system which ge nerated this result tra nsmitted reference range : <=4.0. The reference r quynh was not used to int erpret this result as normal/abnormal . [place] 439852-10-26 11:43:00 Test Item Value Reference Range Interpretation Comments Basophils (test code = 0.6 See_Comment [Aut omated message] The Basophils) system which ge nerated this result tra nsmitted reference range : <=1.0. The reference r quynh was not used to int erpret this result as normal/abnormal . [place] 439852-10-26 11:43:00 Test Item Value Reference Range Interpretation Comments Neutrophils # (test code = Neutrophils 8.1 1.5-8.1 #) [place] 439852-10-26 11:43:00 Test Item Value Reference Range Interpretation Comments Lymphocytes # (test code = Lymphocytes 1.9 1.0-5.5 #) [place] 439852-10-26 11:43:00 Test Item Value Reference Range Interpretation Comments Monocytes # (test code 0.6 See_Comment [Aut omated message] The = Monocytes #) system which generated this result tra nsmitted reference range : <=0.8. The reference r quynh was not used to int erpret this result as normal/abnormal . [facility] CenterNkbsfpbMRCTAPOXYR1583-06-00 11:43:00 Test Item Value Reference Range Interpretation Comments Basophils # (test code 0.1 See_Comment [Aut omated message] The = Basophils #) system which generated this result tra nsmitted reference range : <=0.2. The reference r quynh was not used to int erpret this result as normal/abnormal . [facility] CenterZjnibexIUIXCQKAIP4076-40-79 11:43:00 Test Item Value Reference Range Interpretation Comments Microcyte (test code = 1+ *ABN*(04/24/22 Microcyte) 6:43 AM) [place] 439852-10-26 11:43:00 Test Item Value Reference Range Interpretation Comments WBC (test code = WBC) 10.8 3.7-10.4 [facility] CenterNqptqeeVBCAYIGOXK4545-67-72 11:43:00 Test Item Value Reference Range Interpretation Comments RBC (test code = RBC) 3.62 4.20-5.40 [place] 439852-10-26 11:43:00 Test Item Value Reference Range Interpretation Comments Hgb (test code = Hgb) 9.7 12.0-16.0 [place] 439852-10-26 11:43:00 Test Item Value Reference Range Interpretation Comments Hct (test code = Hct) 28.6 36.0-48.0 [place] 439852-10-26 11:43:00 Test Item Value Reference Range Interpretation Comments MCV (test code = MCV) 78.9 80.0-98.0 [place] 439852-10-26 11:43:00 Test Item Value Reference Range Interpretation Comments MCH (test code = MCH) 26.9 pg 27.0-31.0 [facility] CenterXnjlcfcNPHQGPOCRE2205-84-67 11:43:00 Test Item Value Reference Range Interpretation Comments MCHC (test code = MCHC) 34.1 32.0-36.0 [place] 439852-10-26 11:43:00 Test Item Value Reference Range Interpretation Comments RDW (test code = RDW) 16.3 11.5-14.5 [place] 439852-10-26 11:43:00 Test Item Value Reference Range Interpretation Comments Platelet (test code = Platelet) 242 133-450 [place] 439852-10-26 11:43:00 Test Item Value Reference Range Interpretation Comments MPV (test code = MPV) 8.7 7.4-10.4 [place] 439852-10-26 11:43:00 Test Item Value Reference Range Interpretation Comments Neutrophils # (test code = Neutrophils 8.1 1.5-8.1 #) [facility] CenterYsnuzflXHOVLEOYSY7951-99-12 11:43:00 Test Item Value Reference Range Interpretation Comments Lymphocytes # (test code = Lymphocytes 1.9 1.0-5.5 #) [facility] CenterZsjyvrjAKWCBIIQF0236-77-22 11:43:00 Test Item Value Reference Range Interpretation Comments Glucose Lvl (test code = Glucose Lvl) 93 70-99 [place] 675862-10-26 11:43:00 Test Item Value Reference Range Interpretation Comments BUN (test code = BUN) 13 - [facility] CenterZksyraiUBUDZBPLO0943-74-11 11:43:00 Test Item Value Reference Range Interpretation Comments Creatinine Lvl (test code = Creatinine 0.62 0.50-1.40 Lvl) [facility] CenterDvwcddpCIQEQUQPI6826-15-42 11:43:00 Test Item Value Reference Range Interpretation Comments Sodium Lvl (test code = Sodium Lvl) 142 135-145 [place] 675862-10-26 11:43:00 Test Item Value Reference Range Interpretation Comments Potassium Lvl (test code = Potassium 3.5 3.5-5.1 Lvl) [facility] CenterGlnrstsDHHCIHJBV3901-64-05 11:43:00 Test Item Value Reference Range Interpretation Comments Chloride Lvl (test code = Chloride Lvl) 109 95-[address] [facility] CenterRzowcbbCVHZCMXET5579-34-24 11:43:00 Test Item Value Reference Range Interpretation Comments CO2 (test code = CO2) - [place] 675862-10-26 11:43:00 Test Item Value Reference Range Interpretation Comments Calcium Lvl (test code = Calcium Lvl) 8.9 8.5-10.5 [place] 675862-10-26 11:43:00 Test Item Value Reference Range Interpretation Comments Total Protein (test code = Total 6.5 6.4-8.4 Protein) [facility] HospitalRliijzvMEHZXAGNE2751-03-31 11:43:00 Test Item Value Reference Range Interpretation Comments Albumin Lvl (test code = Albumin Lvl) 2.6 3.5-5.0 [facility] HospitalHybjktgMTOFETNVU2560-16-67 11:43:00 Test Item Value Reference Range Interpretation Comments ALT (test code = ALT) 16 See_Comment [Auto mated message] The system which ge nerated this result transmit fabiano reference range : <=65. The reference range was not used to interpr et this result as aleks l/abnormal. [facility] HospitalGgyphfnPZNEDHUKK8193-82-64 11:43:00 Test Item Value Reference Range Interpretation Comments AST (test code = AST) 8 See_Comment [Auto mated message] The system which ge nerated this result transmit fabiano reference range : <=37. The reference range was not used to interpr et this result as aleks l/abnormal. [facility] ObxmwqmAHVWBLQCJ0068-87-72 11:43:00 Test Item Value Reference Range Interpretation Comments Alk Phos (test code = Alk Phos) 93 39-136 [facility] HospitalCpfdzooWKOIOJBSV7320-89-55 11:43:00 Test Item Value Reference Range Interpretation Comments Bili Total (test code = Bili Total) 0.3 0.2-1.3 [facility] HospitalOncbostDPLGHTYDP4946-55-74 11:43:00 Test Item Value Reference Range Interpretation Comments AGAP (test code = AGAP) 10.5 10.0-20.0 [facility] KttqszbVDSMXTIZI8290-43-76 11:43:00 Test Item Value Reference Range Interpretation Comments B/C Ratio (test code = B/C Ratio) 21 1 6-25 [facility] HospitalAnwdzbrNRJUXVQXZ6465-45-74 11:43:00 Test Item Value Reference Range Interpretation Comments Globulin (test code = Globulin) 3.9 2.7-4.2 [facility] HospitalQjentugJMIEACKKV0131-03-91 11:43:00 Test Item Value Reference Range Interpretation Comments A/G Ratio (test code = A/G Ratio) 0.7 1 0.7-1.6 [facility] HospitalZidkpexTZQUDRDLF7069-41-92 11:43:00 Test Item Value Reference Range Interpretation Comments eGFR (test code = eGFR) 107 [place] [address]-10-26 11:43:00 Test Item Value Reference Range Interpretation Comments Segs (test code = Segs) 75.4 45.0-75.0 [place] [address]-10-26 11:43:00 Test Item Value Reference Range Interpretation Comments Lymphocytes (test code = Lymphocytes) 17.6 20.0-40.0 [place] [address]-10-26 11:43:00 Test Item Value Reference Range Interpretation Comments Monocytes (test code = Monocytes) 5.9 2.0-12.0 [place] [address]-10-26 11:43:00 Test Item Value Reference Range Interpretation Comments Eosinophils (test code = 0.5 See_Comment [A utomated message] The Eosinophils) system which ge nerated this result tra nsmitted reference range : <=4.0. The reference r quynh was not used to int erpret this result as normal/abnormal . [place] [address]-10-26 11:43:00 Test Item Value Reference Range Interpretation Comments Basophils (test code = 0.6 See_Comment [Aut omated message] The Basophils) system which ge nerated this result tra nsmitted reference range : <=1.0. The reference r quynh was not used to int erpret this result as normal/abnormal . [place] [address]-10-26 11:43:00 Test Item Value Reference Range Interpretation Comments Neutrophils # (test code = Neutrophils 8.1 1.5-8.1 #) [place] [address]-10-26 11:43:00 Test Item Value Reference Range Interpretation Comments Lymphocytes # (test code = Lymphocytes 1.9 1.0-5.5 #) [place] [address]-10-26 11:43:00 Test Item Value Reference Range Interpretation Comments Monocytes # (test code 0.6 See_Comment [Aut omated message] The = Monocytes #) system which generated this result tra nsmitted reference range : <=0.8. The reference r quynh was not used to int erpret this result as normal/abnormal . [place] [address]-10-26 11:43:00 Test Item Value Reference Range Interpretation Comments Basophils # (test code 0.1 See_Comment [Aut omated message] The = Basophils #) system which generated this result tra nsmitted reference range : <=0.2. The reference r quynh was not used to int erpret this result as normal/abnormal . [facility] CenterJkckzdhPVCNYOKRET1234-54-75 11:43:00 Test Item Value Reference Range Interpretation Comments Microcyte (test code = 1+ *ABN*(04/24/22 Microcyte) 6:43 AM) [place] [address]-10-26 11:43:00 Test Item Value Reference Range Interpretation Comments WBC (test code = WBC) 10.8 3.7-10.4 [place] [address]-10-26 11:43:00 Test Item Value Reference Range Interpretation Comments RBC (test code = RBC) 3.62 4.20-5.40 [place] [address]-10-26 11:43:00 Test Item Value Reference Range Interpretation Comments Hgb (test code = Hgb) 9.7 12.0-16.0 [place] [address]-10-26 11:43:00 Test Item Value Reference Range Interpretation Comments Hct (test code = Hct) 28.6 36.0-48.0 [place] 439852-10-26 11:43:00 Test Item Value Reference Range Interpretation Comments MCV (test code = MCV) 78.9 80.0-98.0 [place] [address]-10-26 11:43:00 Test Item Value Reference Range Interpretation Comments MCH (test code = MCH) 26.9 pg 27.0-31.0 [place] [address]-10-26 11:43:00 Test Item Value Reference Range Interpretation Comments MCHC (test code = MCHC) 34.1 32.0-36.0 [place] 439852-10-26 11:43:00 Test Item Value Reference Range Interpretation Comments RDW (test code = RDW) 16.3 11.5-14.5 [place] [address]-10-26 11:43:00 Test Item Value Reference Range Interpretation Comments Platelet (test code = Platelet) 242 133-450 [place] 439852-10-26 11:43:00 Test Item Value Reference Range Interpretation Comments Monocytes # (test code 0.6 See_Comment [Aut omated message] The = Monocytes #) system which generated this result tra nsmitted reference range : <=0.8. The reference r quynh was not used to int erpret this result as normal/abnormal . [facility] CenterQdpuoepVSFXHKLTTA4064-81-99 11:43:00 Test Item Value Reference Range Interpretation Comments MPV (test code = MPV) 8.7 7.4-10.4 [facility] CenterYtrsajxJBETSTAJZV2080-05-66 11:43:00 Test Item Value Reference Range Interpretation Comments Basophils # (test code 0.1 See_Comment [Aut omated message] The = Basophils #) system which generated this result tra nsmitted reference range : <=0.2. The reference r quynh was not used to int erpret this result as normal/abnormal . [facility] CenterBhlghoxUMWUPLAZBX5013-09-59 11:43:00 Test Item Value Reference Range Interpretation Comments Microcyte (test code = 1+ *ABN*(04/24/22 Microcyte) 6:43 AM) [facility] CenterVqkftakBLXPTEJHJ0859-62-64 11:43:00 Test Item Value Reference Range Interpretation Comments Glucose Lvl (test code = Glucose Lvl) 93 70-[address] [facility] CenterFjxqvudUCFLGXTFD2635-95-41 11:43:00 Test Item Value Reference Range Interpretation Comments BUN (test code = BUN) 13 -[address] [facility] CenterBzjrmjdVFLXTFDXJ6693-72-75 11:43:00 Test Item Value Reference Range Interpretation Comments Creatinine Lvl (test code = Creatinine 0.62 0.50-1.40 Lvl) [facility] CenterGqtbiipJJAFASLDL4412-59-61 11:43:00 Test Item Value Reference Range Interpretation Comments Sodium Lvl (test code = Sodium Lvl) 142 135-[address] [facility] CenterQgmvyvdKQAXVLLOI7787-55-05 11:43:00 Test Item Value Reference Range Interpretation Comments Potassium Lvl (test code = Potassium 3.5 3.5-5.1 Lvl) [facility] CenterCbnknaoBNRCMJDHW9595-39-94 11:43:00 Test Item Value Reference Range Interpretation Comments Chloride Lvl (test code = Chloride Lvl) 109 95-[address] [facility] CenterLwwwygpKUKHQWNVO5038-24-89 11:43:00 Test Item Value Reference Range Interpretation Comments CO2 (test code = CO2) 26 24-[address] [facility] CenterMyydtzbUBMWJOVQJ0858-32-96 11:43:00 Test Item Value Reference Range Interpretation Comments Calcium Lvl (test code = Calcium Lvl) 8.9 8.5-10.5 [facility]GyprgbdBFBHHOYLJ4277-06-31 11:43:00 Test Item Value Reference Range Interpretation Comments Total Protein (test code = Total 6.5 6.4-8.4 Protein) [facility] CenterBraicswZANCJVNUC2674-49-09 11:43:00 Test Item Value Reference Range Interpretation Comments Albumin Lvl (test code = Albumin Lvl) 2.6 3.5-5.0 [facility] HospitalQyqlynnOHVUUCWQL2240-23-79 11:43:00 Test Item Value Reference Range Interpretation Comments ALT (test code = ALT) 16 See_Comment [Auto mated message] The system which ge nerated this result transmit fabiano reference range : <=65. The reference range was not used to interpr et this result as aleks l/abnormal. [facility] HospitalNeqrkzwMJLDCQSYJ2837-39-58 11:43:00 Test Item Value Reference Range Interpretation Comments AST (test code = AST) 8 See_Comment [Auto mated message] The system which ge nerated this result transmit fabiano reference range : <=37. The reference range was not used to interpr et this result as aleks l/abnormal. [facility] HospitalSotmftdKPIHJADOC4487-83-72 11:43:00 Test Item Value Reference Range Interpretation Comments Alk Phos (test code = Alk Phos) 93 39-136 [facility] HospitalWepteufXFMDLSZMA5762-35-99 11:43:00 Test Item Value Reference Range Interpretation Comments Bili Total (test code = Bili Total) 0.3 0.2-1.3 [facility] HospitalXfuhghwMVCJPBCGT5837-21-28 11:43:00 Test Item Value Reference Range Interpretation Comments AGAP (test code = AGAP) 10.5 10.0-20.0 [facility] HospitalQnmhxsaGXHCFXDLJ0310-86-64 11:43:00 Test Item Value Reference Range Interpretation Comments B/C Ratio (test code = B/C Ratio) 21 1 6-25 [facility] HospitalPzabslhYRRRUAXZK9688-57-21 11:43:00 Test Item Value Reference Range Interpretation Comments Globulin (test code = Globulin) 3.9 2.7-4.2 [facility] HospitalQoenmskFBILBWUNI9936-31-97 11:43:00 Test Item Value Reference Range Interpretation Comments A/G Ratio (test code = A/G Ratio) 0.7 1 0.7-1.6 [place]862-10-26 11:43:00 Test Item Value Reference Range Interpretation Comments eGFR (test code = eGFR) 107 [place] 439852-10-26 11:43:00 Test Item Value Reference Range Interpretation Comments Segs (test code = Segs) 75.4 45.0-75.0 [place] [address]-10-26 11:43:00 Test Item Value Reference Range Interpretation Comments Lymphocytes (test code = Lymphocytes) 17.6 20.0-40.0 [place] 439852-10-26 11:43:00 Test Item Value Reference Range Interpretation Comments Monocytes (test code = Monocytes) 5.9 2.0-12.0 [place] 439852-10-26 11:43:00 Test Item Value Reference Range Interpretation Comments Eosinophils (test code = 0.5 See_Comment [A utomated message] The Eosinophils) system which ge nerated this result tra nsmitted reference range : <=4.0. The reference r quynh was not used to int erpret this result as normal/abnormal . [place] 439852-10-26 11:43:00 Test Item Value Reference Range Interpretation Comments Basophils (test code = 0.6 See_Comment [Aut omated message] The Basophils) system which ge nerated this result tra nsmitted reference range : <=1.0. The reference r quynh was not used to int erpret this result as normal/abnormal . [place] 439852-10-26 11:43:00 Test Item Value Reference Range Interpretation Comments Neutrophils # (test code = Neutrophils 8.1 1.5-8.1 #) [place] 439852-10-26 11:43:00 Test Item Value Reference Range Interpretation Comments Lymphocytes # (test code = Lymphocytes 1.9 1.0-5.5 #) [place] [address]-10-26 11:43:00 Test Item Value Reference Range Interpretation Comments Monocytes # (test code 0.6 See_Comment [Aut omated message] The = Monocytes #) system which generated this result tra nsmitted reference range : <=0.8. The reference r quynh was not used to int erpret this result as normal/abnormal . [place] 439852-10-26 11:43:00 Test Item Value Reference Range Interpretation Comments Basophils # (test code 0.1 See_Comment [Aut omated message] The = Basophils #) system which generated this result tra nsmitted reference range : <=0.2. The reference r quynh was not used to int erpret this result as normal/abnormal . [facility] CenterPpqypmdZWLXBPIGIZ1433-15-87 11:43:00 Test Item Value Reference Range Interpretation Comments Microcyte (test code = 1+ *ABN*(04/24/22 Microcyte) 6:43 AM) [facility] CenterWcignrlJDFISXEDSU0413-36-04 11:43:00 Test Item Value Reference Range Interpretation Comments WBC (test code = WBC) 10.8 3.7-10.4 [place] [address]-10-26 11:43:00 Test Item Value Reference Range Interpretation Comments RBC (test code = RBC) 3.62 4.20-5.40 [place] 439852-10-26 11:43:00 Test Item Value Reference Range Interpretation Comments Hgb (test code = Hgb) 9.7 12.0-16.0 [place] [address]-10-26 11:43:00 Test Item Value Reference Range Interpretation Comments Hct (test code = Hct) 28.6 36.0-48.0 [facility] CenterKoorghmRMRVSBCKXJ0121-87-81 11:43:00 Test Item Value Reference Range Interpretation Comments MCV (test code = MCV) 78.9 80.0-98.0 [place] 439852-10-26 11:43:00 Test Item Value Reference Range Interpretation Comments MCH (test code = MCH) 26.9 pg 27.0-31.0 [facility] CenterZschzcwBAPCWSXLPE6935-60-80 11:43:00 Test Item Value Reference Range Interpretation Comments MCHC (test code = MCHC) 34.1 32.0-36.0 [place] [address]-10-26 11:43:00 Test Item Value Reference Range Interpretation Comments RDW (test code = RDW) 16.3 11.5-14.5 [facility] CenterNxxcwkpHYDPGPWTFY0410-21-32 11:43:00 Test Item Value Reference Range Interpretation Comments Platelet (test code = Platelet) 242 133-450 [facility] CenterHguqhprYUORIQCDTT7293-26-23 11:43:00 Test Item Value Reference Range Interpretation Comments MPV (test code = MPV) 8.7 7.4-10.4 [facility] CenterMavgbcwGWCLOHWXRK2868-52-54 11:43:00 Test Item Value Reference Range Interpretation Comments WBC (test code = WBC) 10.8 3.7-10.4 [facility] CenterOsawcacAYQPKVRITU9204-61-62 11:43:00 Test Item Value Reference Range Interpretation Comments RBC (test code = RBC) 3.62 4.20-5.40 [facility] CenterFbszlcvDYIQYGBIAS6320-59-13 11:43:00 Test Item Value Reference Range Interpretation Comments Hgb (test code = Hgb) 9.7 12.0-16.0 [place] 675862-10-26 11:43:00 Test Item Value Reference Range Interpretation Comments Glucose Lvl (test code = Glucose Lvl) 93 70-[address] [facility] CenterUlomaqbKLJOYGBQV2042-81-64 11:43:00 Test Item Value Reference Range Interpretation Comments BUN (test code = BUN) 13 7-22 [place] 675862-10-26 11:43:00 Test Item Value Reference Range Interpretation Comments Creatinine Lvl (test code = Creatinine 0.62 0.50-1.40 Lvl) [facility] CenterUpgiqjiXWKXUVVGE1435-45-63 11:43:00 Test Item Value Reference Range Interpretation Comments Sodium Lvl (test code = Sodium Lvl) 142 135-[address] [facility] CenterKonkhzqQGGURSHTE6507-48-27 11:43:00 Test Item Value Reference Range Interpretation Comments Potassium Lvl (test code = Potassium 3.5 3.5-5.1 Lvl) [facility] CenterAlezhauEOEUTAFUZ3115-93-48 11:43:00 Test Item Value Reference Range Interpretation Comments Chloride Lvl (test code = Chloride Lvl) 109 95-[address] [facility] CenterAqtrmlcWVTOQIGVA5512-02-76 11:43:00 Test Item Value Reference Range Interpretation Comments CO2 (test code = CO2) 26 24-[address] [facility] CenterIueremrRCUBWODTR3064-49-36 11:43:00 Test Item Value Reference Range Interpretation Comments Calcium Lvl (test code = Calcium Lvl) 8.9 8.5-10.5 [place] 675862-10-26 11:43:00 Test Item Value Reference Range Interpretation Comments Total Protein (test code = Total 6.5 6.4-8.4 Protein) [facility] CenterMpnatqpQEIAWRFJJ9663-78-08 11:43:00 Test Item Value Reference Range Interpretation Comments Albumin Lvl (test code = Albumin Lvl) 2.6 3.5-5.[address] [facility] CenterHzslmqnMHBDYONWQ7598-32-17 11:43:00 Test Item Value Reference Range Interpretation Comments ALT (test code = ALT) 16 See_Comment [Auto mated message] The system which ge nerated this result transmit fabiano reference range : <=65. The reference range was not used to interpr et this result as aleks l/abnormal. [facility] CenterTrecgbcYNPZLJOIP0630-05-82 11:43:00 Test Item Value Reference Range Interpretation Comments AST (test code = AST) 8 See_Comment [Auto mated message] The system which ge nerated this result transmit fabiano reference range : <=37. The reference range was not used to interpr et this result as aleks l/abnormal. [facility] CenterOyhufcsBGBWWLBPG1511-13-78 11:43:00 Test Item Value Reference Range Interpretation Comments Alk Phos (test code = Alk Phos) 93 39-[address] [facility] CenterLpitaejGIENNPVER0485-34-26 11:43:00 Test Item Value Reference Range Interpretation Comments Bili Total (test code = Bili Total) 0.3 0.2-1.[address] [facility] CenterRqahatcUBOIROKGM8869-50-38 11:43:00 Test Item Value Reference Range Interpretation Comments AGAP (test code = AGAP) 10.5 10.0-20.[address] [facility] CenterPtzqeyeDEMUEYYEC9405-18-57 11:43:00 Test Item Value Reference Range Interpretation Comments B/C Ratio (test code = B/C Ratio) 21 1 6-[address] CenterDzrileyHDLQOKLTH1702-78-60 11:43:00 Test Item Value Reference Range Interpretation Comments Globulin (test code = Globulin) 3.9 2.7-4.[address] [facility] CenterDgbgufpMWIOUOLFU1310-55-98 11:43:00 Test Item Value Reference Range Interpretation Comments A/G Ratio (test code = A/G Ratio) 0.7 1 0.7-1.[address] [facility] CenterOwxmvynQHQCPHUYR2291-47-55 11:43:00 Test Item Value Reference Range Interpretation Comments eGFR (test code = eGFR) 107 [facility] CenterPzvjfpvPOZGRKYCUP3718-69-06 11:43:00 Test Item Value Reference Range Interpretation Comments Segs (test code = Segs) 75.4 45.0-75.0 [place] 439852-10-26 11:43:00 Test Item Value Reference Range Interpretation Comments Lymphocytes (test code = Lymphocytes) 17.6 20.0-40.0 [place] 439852-10-26 11:43:00 Test Item Value Reference Range Interpretation Comments Monocytes (test code = Monocytes) 5.9 2.0-12.0 [place] 439852-10-26 11:43:00 Test Item Value Reference Range Interpretation Comments Eosinophils (test code = 0.5 See_Comment [A utomated message] The Eosinophils) system which ge nerated this result tra nsmitted reference range : <=4.0. The reference r quynh was not used to int erpret this result as normal/abnormal . [place] [address]-10-26 11:43:00 Test Item Value Reference Range Interpretation Comments Basophils (test code = 0.6 See_Comment [Aut omated message] The Basophils) system which ge nerated this result tra nsmitted reference range : <=1.0. The reference r quynh was not used to int erpret this result as normal/abnormal . [facility] CenterFptzbpgBTJGFUBMLN1381-19-63 11:43:00 Test Item Value Reference Range Interpretation Comments Neutrophils # (test code = Neutrophils 8.1 1.5-8.1 #) [place] 439852-10-26 11:43:00 Test Item Value Reference Range Interpretation Comments Lymphocytes # (test code = Lymphocytes 1.9 1.0-5.5 #) [place] 439852-10-26 11:43:00 Test Item Value Reference Range Interpretation Comments Monocytes # (test code 0.6 See_Comment [Aut omated message] The = Monocytes #) system which generated this result tra nsmitted reference range : <=0.8. The reference r quynh was not used to int erpret this result as normal/abnormal . [place] [address]-10-26 11:43:00 Test Item Value Reference Range Interpretation Comments Basophils # (test code 0.1 See_Comment [Aut omated message] The = Basophils #) system which generated this result tra nsmitted reference range : <=0.2. The reference r quynh was not used to int erpret this result as normal/abnormal . [place] [address]-10-26 11:43:00 Test Item Value Reference Range Interpretation Comments Microcyte (test code = 1+ *ABN*(04/24/22 Microcyte) 6:43 AM) [place] [address]-10-26 11:43:00 Test Item Value Reference Range Interpretation Comments WBC (test code = WBC) 10.8 3.7-10.4 [place] 439852-10-26 11:43:00 Test Item Value Reference Range Interpretation Comments RBC (test code = RBC) 3.62 4.20-5.40 [place] 439852-10-26 11:43:00 Test Item Value Reference Range Interpretation Comments Hgb (test code = Hgb) 9.7 12.0-16.0 [place] [address]-10-26 11:43:00 Test Item Value Reference Range Interpretation Comments Hct (test code = Hct) 28.6 36.0-48.0 [place] [address]-10-26 11:43:00 Test Item Value Reference Range Interpretation Comments MCV (test code = MCV) 78.9 80.0-98.0 [place] [address]-10-26 11:43:00 Test Item Value Reference Range Interpretation Comments MCH (test code = MCH) 26.9 pg 27.0-31.0 [place] 439852-10-26 11:43:00 Test Item Value Reference Range Interpretation Comments MCHC (test code = MCHC) 34.1 32.0-36.0 [place] 439852-10-26 11:43:00 Test Item Value Reference Range Interpretation Comments RDW (test code = RDW) 16.3 11.5-14.5 [place] [address]-10-26 11:43:00 Test Item Value Reference Range Interpretation Comments Platelet (test code = Platelet) 242 133-450 [place] 439852-10-26 11:43:00 Test Item Value Reference Range Interpretation Comments MPV (test code = MPV) 8.7 7.4-10.4 [place] 439852-10-26 11:43:00 Test Item Value Reference Range Interpretation Comments Hct (test code = Hct) 28.6 36.0-48.0 [place] 439852-10-26 11:43:00 Test Item Value Reference Range Interpretation Comments MCV (test code = MCV) 78.9 80.0-98.0 [facility] CenterRbxwtvtFUBTTQHHOJ4967-31-42 11:43:00 Test Item Value Reference Range Interpretation Comments MCH (test code = MCH) 26.9 pg 27.0-31.0 [facility] CenterSxjvghrTISQJURKHB8569-72-70 11:43:00 Test Item Value Reference Range Interpretation Comments MCHC (test code = MCHC) 34.1 32.0-36.0 [facility] CenterYvjkaokSSRHYTSRQJ5374-77-94 11:43:00 Test Item Value Reference Range Interpretation Comments RDW (test code = RDW) 16.3 11.5-14.5 [facility] CenterUeosyvsEPHCLPDSHZ9201-50-62 11:43:00 Test Item Value Reference Range Interpretation Comments Platelet (test code = Platelet) 242 534-[address] [facility] CenterPgkjkgmBDIIWQJBM6535-03-26 11:43:00 Test Item Value Reference Range Interpretation Comments Glucose Lvl (test code = Glucose Lvl) 93 70-[address] CenterTumeogbJRRKGTKDS8347-17-00 11:43:00 Test Item Value Reference Range Interpretation Comments BUN (test code = BUN) 13 7-[address] [facility] CenterYjgsachGAZBNLDJI8270-69-41 11:43:00 Test Item Value Reference Range Interpretation Comments Creatinine Lvl (test code = Creatinine 0.62 0.50-1.40 Lvl) [facility] CenterYprnhrnYLBPKXCLVL9144-96-84 11:43:00 Test Item Value Reference Range Interpretation Comments MPV (test code = MPV) 8.7 7.4-10.[address] [facility] CenterJjjiqteHZZSSWLNX3148-97-01 11:43:00 Test Item Value Reference Range Interpretation Comments Sodium Lvl (test code = Sodium Lvl) 142 135-[address] [facility] CenterJxplnggDERGYBLML0037-30-53 11:43:00 Test Item Value Reference Range Interpretation Comments Potassium Lvl (test code = Potassium 3.5 3.5-5.1 Lvl) [facility] CenterIentvcdLVOECNCOP4224-10-89 11:43:00 Test Item Value Reference Range Interpretation Comments Chloride Lvl (test code = Chloride Lvl) 109 95-[address] [facility] CenterAjerwcrDAYVDHQUZ2739-67-17 11:43:00 Test Item Value Reference Range Interpretation Comments CO2 (test code = CO2) -32 [place] 675862-10-26 11:43:00 Test Item Value Reference Range Interpretation Comments Calcium Lvl (test code = Calcium Lvl) 8.9 8.5-10.5 [facility] HospitalYdyakyqWGJEJKNZO7677-34-94 11:43:00 Test Item Value Reference Range Interpretation Comments Total Protein (test code = Total 6.5 6.4-8.4 Protein) [facility] HospitalKvwdatwYIQOTKHNM0717-87-70 11:43:00 Test Item Value Reference Range Interpretation Comments Albumin Lvl (test code = Albumin Lvl) 2.6 3.5-5.0 [facility] HospitalRwylvetPFLQPPZGZ9648-24-71 11:43:00 Test Item Value Reference Range Interpretation Comments ALT (test code = ALT) 16 See_Comment [Auto mated message] The system which ge nerated this result transmit fabiano reference range : <=65. The reference range was not used to interpr et this result as aleks l/abnormal. [facility] HospitalNoxtcwtZNPNWQRIS9187-50-10 11:43:00 Test Item Value Reference Range Interpretation Comments AST (test code = AST) 8 See_Comment [Auto mated message] The system which ge nerated this result transmit fabiano reference range : <=37. The reference range was not used to interpr et this result as aleks l/abnormal. [facility] IngrpwbWFAWUGKYB3260-02-70 11:43:00 Test Item Value Reference Range Interpretation Comments Alk Phos (test code = Alk Phos) 93 39-136 [facility] HospitalZzwyalfRSXFXLPZL2045-28-75 11:43:00 Test Item Value Reference Range Interpretation Comments Bili Total (test code = Bili Total) 0.3 0.2-1.3 [facility] HospitalTbskvamIHBRLFGUX8418-08-60 11:43:00 Test Item Value Reference Range Interpretation Comments AGAP (test code = AGAP) 10.5 10.0-20.0 [facility] JnachvtTQZJGANDE2488-31-64 11:43:00 Test Item Value Reference Range Interpretation Comments B/C Ratio (test code = B/C Ratio) 21 1 6-25 [facility] HospitalYdukmuoUZUUUTWFT0231-72-23 11:43:00 Test Item Value Reference Range Interpretation Comments Globulin (test code = Globulin) 3.9 2.7-4.2 [facility] HospitalPjxzzkzIGNKWELZA6013-01-10 11:43:00 Test Item Value Reference Range Interpretation Comments A/G Ratio (test code = A/G Ratio) 0.7 1 0.7-1.6 [place] [address]-10-26 11:43:00 Test Item Value Reference Range Interpretation Comments eGFR (test code = eGFR) 107 [place] 439852-10-26 11:43:00 Test Item Value Reference Range Interpretation Comments Segs (test code = Segs) 75.4 45.0-75.0 [place] 439852-10-26 11:43:00 Test Item Value Reference Range Interpretation Comments Lymphocytes (test code = Lymphocytes) 17.6 20.0-40.0 [place] [address]-10-26 11:43:00 Test Item Value Reference Range Interpretation Comments Monocytes (test code = Monocytes) 5.9 2.0-12.0 [place] [address]-10-26 11:43:00 Test Item Value Reference Range Interpretation Comments Eosinophils (test code = 0.5 See_Comment [A utomated message] The Eosinophils) system which ge nerated this result tra nsmitted reference range : <=4.0. The reference r quynh was not used to int erpret this result as normal/abnormal . [place] [address]-10-26 11:43:00 Test Item Value Reference Range Interpretation Comments Basophils (test code = 0.6 See_Comment [Aut omated message] The Basophils) system which ge nerated this result tra nsmitted reference range : <=1.0. The reference r quynh was not used to int erpret this result as normal/abnormal . [place] 439852-10-26 11:43:00 Test Item Value Reference Range Interpretation Comments Neutrophils # (test code = Neutrophils 8.1 1.5-8.1 #) [place] [address]-10-26 11:43:00 Test Item Value Reference Range Interpretation Comments Lymphocytes # (test code = Lymphocytes 1.9 1.0-5.5 #) [place] [address]-10-26 11:43:00 Test Item Value Reference Range Interpretation Comments Monocytes # (test code 0.6 See_Comment [Aut omated message] The = Monocytes #) system which generated this result tra nsmitted reference range : <=0.8. The reference r quynh was not used to int erpret this result as normal/abnormal . [facility]MhuxcwaADFGULAANX8020-71-32 11:43:00 Test Item Value Reference Range Interpretation Comments Basophils # (test code 0.1 See_Comment [Aut omated message] The = Basophils #) system which generated this result tra nsmitted reference range : <=0.2. The reference r quynh was not used to int erpret this result as normal/abnormal . [facility] CenterLnhddypRTTHIELVDW7084-82-55 11:43:00 Test Item Value Reference Range Interpretation Comments Microcyte (test code = 1+ *ABN*(04/24/22 Microcyte) 6:43 AM) [facility] CenterAlbeafcOLZMAUCGBU0723-33-15 11:43:00 Test Item Value Reference Range Interpretation Comments WBC (test code = WBC) 10.8 3.7-10.4 [facility] CenterIitvswzBERGWOTZJW2371-12-15 11:43:00 Test Item Value Reference Range Interpretation Comments RBC (test code = RBC) 3.62 4.20-5.40 [facility] CenterGerupjzIYIIFNORIF3683-15-04 11:43:00 Test Item Value Reference Range Interpretation Comments Hgb (test code = Hgb) 9.7 12.0-16.0 [facility] CenterNpjtsmlURIPMWWAQK4238-02-49 11:43:00 Test Item Value Reference Range Interpretation Comments Hct (test code = Hct) 28.6 36.0-48.0 [facility] CenterKgeszmhWGEDOIDTAI0869-77-13 11:43:00 Test Item Value Reference Range Interpretation Comments MCV (test code = MCV) 78.9 80.0-98.0 [facility] CenterQyxmcysKDVTSVGFLC5192-31-49 11:43:00 Test Item Value Reference Range Interpretation Comments MCH (test code = MCH) 26.9 pg 27.0-31.0 [facility] CenterLoknujzLEVVUZGTUE9057-30-26 11:43:00 Test Item Value Reference Range Interpretation Comments MCHC (test code = MCHC) 34.1 32.0-36.0 [facility] CenterUguqbfdGFXUJTQGYA7350-07-95 11:43:00 Test Item Value Reference Range Interpretation Comments RDW (test code = RDW) 16.3 11.5-14.5 [facility] CenterRadsajbDLWJOYMAWB2043-03-22 11:43:00 Test Item Value Reference Range Interpretation Comments Platelet (test code = Platelet) 242 133-450 [facility] CenterMonofmyMPNTMZWJEX3897-13-11 11:43:00 Test Item Value Reference Range Interpretation Comments MPV (test code = MPV) 8.7 7.4-10.4 [place] [address]-10-26 11:43:00 Test Item Value Reference Range Interpretation Comments Glucose Lvl (test code = Glucose Lvl) 93 70-99 [place] [address]-10-26 11:43:00 Test Item Value Reference Range Interpretation Comments BUN (test code = BUN) 13 7-[address] [facility] CenterLznszfhDFTNSSTOZ2741-98-40 11:43:00 Test Item Value Reference Range Interpretation Comments Creatinine Lvl (test code = Creatinine 0.62 0.50-1.40 Lvl) [facility] CenterTuyranyKHAOBUHJY4345-50-69 11:43:00 Test Item Value Reference Range Interpretation Comments Sodium Lvl (test code = Sodium Lvl) 142 135-145 [place] 675862-10-26 11:43:00 Test Item Value Reference Range Interpretation Comments Potassium Lvl (test code = Potassium 3.5 3.5-5.1 Lvl) [facility] CenterDayfbzxGOARYJPLD4642-44-58 11:43:00 Test Item Value Reference Range Interpretation Comments Chloride Lvl (test code = Chloride Lvl) 109 95-[address] [facility] CenterRhnmzcvKLFUFJLHA1658-89-97 11:43:00 Test Item Value Reference Range Interpretation Comments CO2 (test code = CO2) 26 24-[address] [facility] [facility] CenterZuerbymDEWFZUVAS9701-20-28 11:43:00 Test Item Value Reference Range Interpretation Comments Calcium Lvl (test code = Calcium Lvl) 8.9 8.5-10.[address] [facility] CenterMuefxhfEXMGHYCPM3836-71-13 11:43:00 Test Item Value Reference Range Interpretation Comments Total Protein (test code = Total 6.5 6.4-8.4 Protein) [facility] CenterSglzpdhCYQPUWVYS9518-85-58 11:43:00 Test Item Value Reference Range Interpretation Comments Albumin Lvl (test code = Albumin Lvl) 2.6 3.5-5.[address] [facility] CenterQpxuxwsLVZQGASRR7915-79-86 11:43:00 Test Item Value Reference Range Interpretation Comments ALT (test code = ALT) 16 See_Comment [Auto mated message] The system which ge nerated this result transmit fabiano reference range : <=65. The reference range was not used to interpr et this result as aleks l/abnormal. [facility] HospitalMlsxnadMCVVUYWLX6831-33-39 11:43:00 Test Item Value Reference Range Interpretation Comments AST (test code = AST) 8 See_Comment [Auto mated message] The system which ge nerated this result transmit fabiano reference range : <=37. The reference range was not used to interpr et this result as aleks l/abnormal. [facility] HospitalVozsyesOXJVZOLFV5410-59-33 11:43:00 Test Item Value Reference Range Interpretation Comments Alk Phos (test code = Alk Phos) 93 39-136 [facility] HospitalYzjmaibLSYBSFYRR4337-18-38 11:43:00 Test Item Value Reference Range Interpretation Comments Bili Total (test code = Bili Total) 0.3 0.2-1.3 [facility] HospitalBaniaqcTHLWKNYXN2860-38-88 11:43:00 Test Item Value Reference Range Interpretation Comments AGAP (test code = AGAP) 10.5 10.0-20.0 [facility] DallasTlfjnkpULDHPPREK6664-19-72 11:43:00 Test Item Value Reference Range Interpretation Comments B/C Ratio (test code = B/C Ratio) 21 1 6-25 [facility] HospitalTrdnakiTUDTSTXLY3077-25-47 11:43:00 Test Item Value Reference Range Interpretation Comments Globulin (test code = Globulin) 3.9 2.7-4.2 [facility] HospitalLcewhupUXFZSDGNU7733-79-03 11:43:00 Test Item Value Reference Range Interpretation Comments A/G Ratio (test code = A/G Ratio) 0.7 1 0.7-1.6 [facility] HospitalMawpmkbJUWEDAIYJ6808-41-52 11:43:00 Test Item Value Reference Range Interpretation Comments eGFR (test code = eGFR) 107 [facility] DallasEdfengoNWFCZOLZPV6895-69-76 11:43:00 Test Item Value Reference Range Interpretation Comments Segs (test code = Segs) 75.4 45.0-75.0 [facility] HospitalMhxukyuFFHJTXNUYV1590-96-55 11:43:00 Test Item Value Reference Range Interpretation Comments Lymphocytes (test code = Lymphocytes) 17.6 20.0-40.0 [facility] HospitalNbyecgvZOZYSKWTUB7562-33-70 11:43:00 Test Item Value Reference Range Interpretation Comments Monocytes (test code = Monocytes) 5.9 2.0-12.0 [place] 439852-10-26 11:43:00 Test Item Value Reference Range Interpretation Comments Eosinophils (test code = 0.5 See_Comment [A utomated message] The Eosinophils) system which ge nerated this result tra nsmitted reference range : <=4.0. The reference r quynh was not used to int erpret this result as normal/abnormal . [place] 439852-10-26 11:43:00 Test Item Value Reference Range Interpretation Comments Basophils (test code = 0.6 See_Comment [Aut omated message] The Basophils) system which ge nerated this result tra nsmitted reference range : <=1.0. The reference r quynh was not used to int erpret this result as normal/abnormal . [place] 439852-10-26 11:43:00 Test Item Value Reference Range Interpretation Comments Neutrophils # (test code = Neutrophils 8.1 1.5-8.1 #) [place] 439852-10-26 11:43:00 Test Item Value Reference Range Interpretation Comments Lymphocytes # (test code = Lymphocytes 1.9 1.0-5.5 #) [place] 439852-10-26 11:43:00 Test Item Value Reference Range Interpretation Comments Monocytes # (test code 0.6 See_Comment [Aut omated message] The = Monocytes #) system which generated this result tra nsmitted reference range : <=0.8. The reference r quynh was not used to int erpret this result as normal/abnormal . [facility] CenterOevdqsnFWHQUQOMSR5979-17-51 11:43:00 Test Item Value Reference Range Interpretation Comments Basophils # (test code 0.1 See_Comment [Aut omated message] The = Basophils #) system which generated this result tra nsmitted reference range : <=0.2. The reference r quynh was not used to int erpret this result as normal/abnormal . [facility] CenterMmoawhjTUFEBPMTAH9025-46-38 11:43:00 Test Item Value Reference Range Interpretation Comments Microcyte (test code = 1+ *ABN*(04/24/22 Microcyte) 6:43 AM) [place] 439852-10-26 11:43:00 Test Item Value Reference Range Interpretation Comments WBC (test code = WBC) 10.8 3.7-10.4 [place] 439852-10-26 11:43:00 Test Item Value Reference Range Interpretation Comments RBC (test code = RBC) 3.62 4.20-5.40 [place] [address]-10-26 11:43:00 Test Item Value Reference Range Interpretation Comments Hgb (test code = Hgb) 9.7 12.0-16.0 [place] 439852-10-26 11:43:00 Test Item Value Reference Range Interpretation Comments Hct (test code = Hct) 28.6 36.0-48.0 [place] 439852-10-26 11:43:00 Test Item Value Reference Range Interpretation Comments MCV (test code = MCV) 78.9 80.0-98.0 [place] 439852-10-26 11:43:00 Test Item Value Reference Range Interpretation Comments MCH (test code = MCH) 26.9 pg 27.0-31.0 [place] [address]-10-26 11:43:00 Test Item Value Reference Range Interpretation Comments MCHC (test code = MCHC) 34.1 32.0-36.0 [place] 439852-10-26 11:43:00 Test Item Value Reference Range Interpretation Comments RDW (test code = RDW) 16.3 11.5-14.5 [place] [address]-10-26 11:43:00 Test Item Value Reference Range Interpretation Comments Platelet (test code = Platelet) 242 133-450 [place] 439852-10-26 11:43:00 Test Item Value Reference Range Interpretation Comments MPV (test code = MPV) 8.7 7.4-10.4 [place] 439852-10-24 10:10:00 Test Item Value Reference Range Interpretation Comments Eosinophils # (test code 0.3 See_Comment [A utomated message] The = Eosinophils #) system [employer] generated this result tra nsmitted reference range : <=0.5. The reference r quynh was not used to int erpret this result as normal/abnormal . [place] 439852-10-24 10:10:00 Test Item Value Reference Range Interpretation Comments Eosinophils # (test code 0.3 See_Comment [A utomated message] The = Eosinophils #) system [employer] generated this result tra nsmitted reference range : <=0.5. The reference r quynh was not used to int erpret this result as normal/abnormal . [place] 439852-10-24 10:10:00 Test Item Value Reference Range Interpretation Comments Eosinophils # (test code 0.3 See_Comment [A utomated message] The = Eosinophils #) system [facility] generated this result tra nsmitted reference range : <=0.5. The reference r quynh was not used to int erpret this result as normal/abnormal . [place] 439852-10-24 10:10:00 Test Item Value Reference Range Interpretation Comments Eosinophils # (test code 0.3 See_Comment [A utomated message] The = Eosinophils #) system [facility] generated this result tra nsmitted reference range : <=0.5. The reference r quynh was not used to int erpret this result as normal/abnormal . [place] 439852-10-24 10:10:00 Test Item Value Reference Range Interpretation Comments Eosinophils # (test code 0.3 See_Comment [A utomated message] The = Eosinophils #) system [facility] generated this result tra nsmitted reference range : <=0.5. The reference r quynh was not used to int erpret this result as normal/abnormal . [place] 439852-10-24 10:10:00 Test Item Value Reference Range Interpretation Comments Eosinophils # (test code 0.3 See_Comment [A utomated message] The = Eosinophils #) system [facility] generated this result tra nsmitted reference range : <=0.5. The reference r quynh was not used to int erpret this result as normal/abnormal . [place] 439852-10-24 10:10:00 Test Item Value Reference Range Interpretation Comments Eosinophils # (test code 0.3 See_Comment [A utomated message] The = Eosinophils #) system [facility] generated this result tra nsmitted reference range : <=0.5. The reference r quynh was not used to int erpret this result as normal/abnormal . [place] 439852-10-24 10:10:00 Test Item Value Reference Range Interpretation Comments Eosinophils # (test code 0.3 See_Comment [A utomated message] The = Eosinophils #) system [facility] generated this result tra nsmitted reference range : <=0.5. The reference r quynh was not used to int erpret this result as normal/abnormal . [place] 439852-10-24 10:10:00 Test Item Value Reference Range Interpretation Comments Eosinophils # (test code 0.3 See_Comment [A utomated message] The = Eosinophils #) system [facility] generated this result tra nsmitted reference range : <=0.5. The reference r quynh was not used to int erpret this result as normal/abnormal . [place] 439852-10-24 10:10:00 Test Item Value Reference Range Interpretation Comments Eosinophils # (test code 0.3 See_Comment [A utomated message] The = Eosinophils #) system [facility] generated this result tra nsmitted reference range : <=0.5. The reference r quynh was not used to int erpret this result as normal/abnormal . [place] 439852-10-24 10:10:00 Test Item Value Reference Range Interpretation Comments Eosinophils # (test code 0.3 See_Comment [A utomated message] The = Eosinophils #) system [facility] generated this result tra nsmitted reference range : <=0.5. The reference r quynh was not used to int erpret this result as normal/abnormal . [place] 439852-10-24 10:10:00 Test Item Value Reference Range Interpretation Comments Eosinophils # (test code 0.3 See_Comment [A utomated message] The = Eosinophils #) system [facility] generated this result tra nsmitted reference range : <=0.5. The reference r quynh was not used to int erpret this result as normal/abnormal . [place] 439852-10-24 10:10:00 Test Item Value Reference Range Interpretation Comments Eosinophils # (test code 0.3 See_Comment [A utomated message] The = Eosinophils #) system [facility] generated this result tra nsmitted reference range : <=0.5. The reference r quynh was not used to int erpret this result as normal/abnormal . [place] 439852-10-24 10:10:00 Test Item Value Reference Range Interpretation Comments Eosinophils # (test code 0.3 See_Comment [A utomated message] The = Eosinophils #) system [facility] generated this result tra nsmitted reference range : <=0.5. The reference r quynh was not used to int erpret this result as normal/abnormal . [place] 439852-10-24 10:10:00 Test Item Value Reference Range Interpretation Comments Eosinophils # (test code 0.3 See_Comment [A utomated message] The = Eosinophils #) system [facility] generated this result tra nsmitted reference range : <=0.5. The reference r quynh was not used to int erpret this result as normal/abnormal . [place] 439852-10-24 10:10:00 Test Item Value Reference Range Interpretation Comments Eosinophils # (test code 0.3 See_Comment [A utomated message] The = Eosinophils #) system [facility] generated this result tra nsmitted reference range : <=0.5. The reference r quynh was not used to int erpret this result as normal/abnormal . [place] 439852-10-24 10:10:00 Test Item Value Reference Range Interpretation Comments Eosinophils # (test code 0.3 See_Comment [A utomated message] The = Eosinophils #) system [facility] generated this result tra nsmitted reference range : <=0.5. The reference r quynh was not used to int erpret this result as normal/abnormal . [place] 439852-10-24 10:10:00 Test Item Value Reference Range Interpretation Comments Eosinophils # (test code 0.3 See_Comment [A utomated message] The = Eosinophils #) system [facility] generated this result tra nsmitted reference range : <=0.5. The reference r quynh was not used to int erpret this result as normal/abnormal . [place] 439852-10-24 10:10:00 Test Item Value Reference Range Interpretation Comments Eosinophils # (test code 0.3 See_Comment [A utomated message] The = Eosinophils #) system [facility] generated this result tra nsmitted reference range : <=0.5. The reference r quynh was not used to int erpret this result as normal/abnormal . [place] 439852-10-24 10:10:00 Test Item Value Reference Range Interpretation Comments Eosinophils # (test code 0.3 See_Comment [A utomated message] The = Eosinophils #) system [facility] generated this result tra nsmitted reference range : <=0.5. The reference r quynh was not used to int erpret this result as normal/abnormal . [place] 439852-10-24 10:10:00 Test Item Value Reference Range Interpretation Comments Eosinophils # (test code 0.3 See_Comment [A utomated message] The = Eosinophils #) system [facility] generated this result tra nsmitted reference range : <=0.5. The reference r quynh was not used to int erpret this result as normal/abnormal . [place] [address]-10-24 10:10:00 Test Item Value Reference Range Interpretation Comments Eosinophils # (test code 0.3 See_Comment [A utomated message] The = Eosinophils #) system [facility] generated this result tra nsmitted reference range : <=0.5. The reference r quynh was not used to int erpret this result as normal/abnormal . [place] [address]-10-24 10:10:00 Test Item Value Reference Range Interpretation Comments Eosinophils # (test code 0.3 See_Comment [A utomated message] The = Eosinophils #) system [facility] generated this result tra nsmitted reference range : <=0.5. The reference r quynh was not used to int erpret this result as normal/abnormal . [place] [address]-10-24 10:10:00 Test Item Value Reference Range Interpretation Comments Eosinophils # (test code 0.3 See_Comment [A utomated message] The = Eosinophils #) system [facility] generated this result tra nsmitted reference range : <=0.5. The reference r quynh was not used to int erpret this result as normal/abnormal . [place] [address]-10-24 10:10:00 Test Item Value Reference Range Interpretation Comments Eosinophils # (test code 0.3 See_Comment [A utomated message] The = Eosinophils #) system [facility] generated this result tra nsmitted reference range : <=0.5. The reference r quynh was not used to int erpret this result as normal/abnormal . [place] [address]-10-24 10:10:00 Test Item Value Reference Range Interpretation Comments Eosinophils # (test code 0.3 See_Comment [A utomated message] The = Eosinophils #) system [facility] generated this result tra nsmitted reference range : <=0.5. The reference r quynh was not used to int erpret this result as normal/abnormal . [place] 439852-10-24 10:10:00 Test Item Value Reference Range Interpretation Comments Eosinophils # (test code 0.3 See_Comment [A utomated message] The = Eosinophils #) system [facility] generated this result tra nsmitted reference range : <=0.5. The reference r quynh was not used to int erpret this result as normal/abnormal . [place] 439852-10-24 10:10:00 Test Item Value Reference Range Interpretation Comments Eosinophils # (test code 0.3 See_Comment [A utomated message] The = Eosinophils #) system [facility] generated this result tra nsmitted reference range : <=0.5. The reference r quynh was not used to int erpret this result as normal/abnormal . [place] 439852-10-24 10:10:00 Test Item Value Reference Range Interpretation Comments Eosinophils # (test code 0.3 See_Comment [A utomated message] The = Eosinophils #) system [facility] generated this result tra nsmitted reference range : <=0.5. The reference r quynh was not used to int erpret this result as normal/abnormal . [place] 439852-10-24 10:10:00 Test Item Value Reference Range Interpretation Comments Eosinophils # (test code 0.3 See_Comment [A utomated message] The = Eosinophils #) system [facility] generated this result tra nsmitted reference range : <=0.5. The reference r quynh was not used to int erpret this result as normal/abnormal . [place] 439852-10-24 10:10:00 Test Item Value Reference Range Interpretation Comments Eosinophils # (test code 0.3 See_Comment [A utomated message] The = Eosinophils #) system [facility] generated this result tra nsmitted reference range : <=0.5. The reference r quynh was not used to int erpret this result as normal/abnormal . [place] 439852-10-24 10:10:00 Test Item Value Reference Range Interpretation Comments Eosinophils # (test code 0.3 See_Comment [A utomated message] The = Eosinophils #) system [employer] generated this result tra nsmitted reference range : <=0.5. The reference r quynh was not used to int erpret this result as normal/abnormal . Leah ConwayWtumaeqZDWFOU5194-49-48 21:04:09 Test Item Value Reference Range Interpretation [...] applied.Catheter placed: Triple-lumen central venous catheterCatheter size (Yemeni): 7Catheter length (cm): 20Catheter tip position: 2.5 [...] report as written. [facility] DallasXbibrhvJTQNWB4369-74-79 21:04:09 Test Item Value Reference Range Interpretation [...] applied.Catheter placed: Triple-lumen central venous catheterCatheter size (Yemeni): 7Catheter length (cm): 20Catheter tip position: 2.5 [...] report as written. [facility] DallasKensffrWFYBOL9937-49-23 21:04:09 Test Item Value Reference Range Interpretation [...] applied.Catheter placed: Triple-lumen central venous catheterCatheter size (Yemeni): 7Catheter length (cm): 20Catheter tip position: 2.5 [...] report as written. [facility] DallasOjwbxzoVXMCXH4172-02-89 21:04:09 Test Item Value Reference Range Interpretation [...] applied.Catheter placed: Triple-lumen central venous catheterCatheter size (Yemeni): 7Catheter length (cm): 20Catheter tip position: 2.5 [...] report as written. [facility] DallasXkvmcujPIGOCD2288-50-58 21:04:09 Test Item Value Reference Range Interpretation [...] applied.Catheter placed: Triple-lumen central venous catheterCatheter size (Yemeni): 7Catheter length (cm): 20Catheter tip position: 2.5 [...] and agree with the report as written. [facility] TzynxdbDDLZQF3424-81-06 21:04:09 Test Item Value Reference Range Interpretation [...] applied.Catheter placed: Triple-lumen central venous catheterCatheter size (Yemeni): 7Catheter length (cm): 20Catheter tip position: 2.5 [...] report as written. [facility] DallasHbivnxuPMSWFZ0070-96-97 21:04:09 Test Item Value Reference Range Interpretation [...] applied.Catheter placed: Triple-lumen central venous catheterCatheter size (Yemeni): 7Catheter length (cm): 20Catheter tip position: 2.5 [...] report as written. [facility] [id number] 21:04:09 Test Item Value Reference Range Interpretation Comments RADRPT (test PROCEDURE: Non-tunneled central code = venous catheter RADRPT) placementProcedural PersonnelAttending physician(s): Dylan Crandall physician(s): NoneResident physician(s): NoneAd[facility] provider(s[facility] NonePre-procedure diagnosis: Mediastinal mass, chemotherapy [...] applied.Catheter placed: Triple-lumen central venous catheterCatheter size (Yemeni): 7Catheter length (cm): 20Catheter tip position: 2.5 [...] report as written. [facility] DallasAvsesztCSPYFF7792-10-42 21:04:09 Test Item Value Reference Range Interpretation [...] applied.Catheter placed: Triple-lumen central venous catheterCatheter size (Yemeni): 7Catheter length (cm): 20Catheter tip position: 2.5 [...] and agree with the report as written. [facility]BfyktcfSMZELK8043-88-67 21:04:09 Test Item Value Reference Range Interpretation Comments RADRPT (test PROCEDURE: Non-tunneled central code = venous catheter RADRPT) placementProcedural PersonnelAttending physician(s): Dylan Crandall physician(s): NoneResident physician(s): NoneAd[facility] practice provider(s): NonePre-procedure diagnosis: Mediastinal mass, chemotherapy [...] applied.Catheter placed: Triple-lumen central venous catheterCatheter size (Yemeni): 7Catheter length (cm): 20Catheter tip position: 2.5 [...] and agree with the report as written. Leah [id number] 21:04:09 Test Item Value Reference Range Interpretation [...] applied.Catheter placed: Triple-lumen central venous catheterCatheter size (Yemeni): 7Catheter length (cm): 20Catheter tip position: 2.5 [...] report as written. [facility] DallasBhgwlflNDZXUJ0618-79-37 21:04:09 Test Item Value Reference Range Interpretation [...] applied.Catheter placed: Triple-lumen central venous catheterCatheter size (Yemeni): 7Catheter length (cm): 20Catheter tip position: 2.5 [...] report as written. [facility] [id number] 21:04:09 Test Item Value Reference Range Interpretation Comments RADRPT (test PROCEDURE: Non-tunneled central code = venous catheter RADRPT) placementProcedural PersonnelAttending physician(s): Dylan Crandall physician(s): NoneResident physician(s): NoneAd[facility] provider(s): NonePre-procedure diagnosis: Mediastinal mass, chemotherapy [...] applied.Catheter placed: Triple-lumen central venous catheterCatheter size (Yemeni): 7Catheter length (cm): 20Catheter tip position: 2.5 [...] report as written. [facility] [id number] 21:04:09 Test Item Value Reference Range Interpretation [...] applied.Catheter placed: Triple-lumen central venous catheterCatheter size (Yemeni): 7Catheter length (cm): 20Catheter tip position: 2.5 [...] report as written. [facility] DallasFzlvmndRQLMLG4713-70-56 21:04:09 Test Item Value Reference Range Interpretation Comments RADRPT (test PROCEDURE: Non-tunneled central code = venous catheter RADRPT) placementProcedural PersonnelAttending physician(s): Dylan Crandall physician(s): NoneResident physician(s): NoneAd[facility] practice provider(s): NonePre-procedure diagnosis: Mediastinal mass, chemotherapy [...] applied.Catheter placed: Triple-lumen central venous catheterCatheter size (Yemeni): 7Catheter length (cm): 20Catheter tip position: 2.5 [...] and agree with the report as written. [facility] HospitalIcfbuacHRWVOK2281-11-26 21:04:09 Test Item Value Reference Range Interpretation [...] applied.Catheter placed: Triple-lumen central venous catheterCatheter size (Yemeni): 7Catheter length (cm): 20Catheter tip position: 2.5 [...] report as written. [facility] DallasTwyfebfUNIZYK7573-55-19 21:04:09 Test Item Value Reference Range Interpretation [...] applied.Catheter placed: Triple-lumen central venous catheterCatheter size (Yemeni): 7Catheter length (cm): 20Catheter tip position: 2.5 [...] report as written. [facility] DallasWxiqhxjDBBHFM8883-32-24 21:04:09 Test Item Value Reference Range Interpretation Comments RADRPT (test PROCEDURE: Non-tunneled central code = venous catheter RADRPT) placementProcedural PersonnelAttending physician(s): Dylan Crandall physician(s): NoneResident physician(s): NoneAd[facility] practice provider(s): NonePre-procedure diagnosis: Mediastinal mass, chemotherapy [...] applied.Catheter placed: Triple-lumen central venous catheterCatheter size (Yemeni): 7Catheter length (cm): 20Catheter tip position: 2.5 [...] report as written. [facility] DallasOasylkvEMKFAQ8896-20-10 21:04:09 Test Item Value Reference Range Interpretation [...] applied.Catheter placed: Triple-lumen central venous catheterCatheter size (Yemeni): 7Catheter length (cm): 20Catheter tip position: 2.5 [...] report as written. [facility] DallasJzbwmrlFGDRGP3470-52-21 21:04:09 Test Item Value Reference Range Interpretation [...] applied.Catheter placed: Triple-lumen central venous catheterCatheter size (Yemeni): 7Catheter length (cm): 20Catheter tip position: 2.5 [...] and agree with the report as written. [facility] CenterDxeuxpwDPYBCH1776-51-29 21:04:09 Test Item Value Reference Range Interpretation [...] applied.Catheter placed: Triple-lumen central venous catheterCatheter size (Yemeni): 7Catheter length (cm): 20Catheter tip position: 2.5 [...] report as written. [facility] DallasFjpcuxrQAAQBB5137-06-56 21:04:09 Test Item Value Reference Range Interpretation [...] applied.Catheter placed: Triple-lumen central venous catheterCatheter size (Yemeni): 7Catheter length (cm): 20Catheter tip position: 2.5 [...] and agree with the report as written. [facility] AipphngWBMSEI4104-83-96 21:04:09 Test Item Value Reference Range Interpretation Comments RADRPT (test PROCEDURE: Non-tunneled central code = venous catheter RADRPT) placementProcedural PersonnelAttending physician(s): Dylan Crandall physician(s): NoneResident physician(s): NoneAd[facility] practice provider(s): NonePre-procedure diagnosis: Mediastinal mass, chemotherapy [...] applied.Catheter placed: Triple-lumen central venous catheterCatheter size (Yemeni): 7Catheter length (cm): 20Catheter tip position: 2.5 [...] report as written. [facility] DallasEakukliFQKUWC8195-27-13 21:04:09 Test Item Value Reference Range Interpretation [...] applied.Catheter placed: Triple-lumen central venous catheterCatheter size (Yemeni): 7Catheter length (cm): 20Catheter tip position: 2.5 [...] and agree with the report as written. [facility] CenterLereoryNXUQFF9816-99-15 21:04:09 Test Item Value Reference Range Interpretation [...] applied.Catheter placed: Triple-lumen central venous catheterCatheter size (Yemeni): 7Catheter length (cm): 20Catheter tip position: 2.5 [...] report as written. [facility] DallasCbbhuksAQORPD8915-93-29 21:04:09 Test Item Value Reference Range Interpretation [...] applied.Catheter placed: Triple-lumen central venous catheterCatheter size (Yemeni): 7Catheter length (cm): 20Catheter tip position: 2.5 [...] report as written. [facility] DallasPknzgzhPAMPUC4801-84-85 21:04:09 Test Item Value Reference Range Interpretation [...] applied.Catheter placed: Triple-lumen central venous catheterCatheter size (Yemeni): 7Catheter length (cm): 20Catheter tip position: 2.5 [...] and agree with the report as written. [facility] HmpfsvqJGINIU8495-87-23 21:04:09 Test Item Value Reference Range Interpretation [...] applied.Catheter placed: Triple-lumen central venous catheterCatheter size (Yemeni): 7Catheter length (cm): 20Catheter tip position: 2.5 [...] report as written. [facility] DallasEmmboamHBKUDG4509-17-42 21:04:09 Test Item Value Reference Range Interpretation [...] applied.Catheter placed: Triple-lumen central venous catheterCatheter size (Yemeni): 7Catheter length (cm): 20Catheter tip position: 2.5 [...] report as written. [facility] DallasGkmqokxYXUAFY5280-49-62 21:04:09 Test Item Value Reference Range Interpretation [...] applied.Catheter placed: Triple-lumen central venous catheterCatheter size (Yemeni): 7Catheter length (cm): 20Catheter tip position: 2.5 [...] report as written. [facility] DallasEesicgiQSSUTG9360-39-02 21:04:09 Test Item Value Reference Range Interpretation [...] applied.Catheter placed: Triple-lumen central venous catheterCatheter size (Yemeni): 7Catheter length (cm): 20Catheter tip position: 2.5 [...] report as written. [facility] DallasAqvgmkkQBEOIT1558-51-96 21:04:09 Test Item Value Reference Range Interpretation [...] applied.Catheter placed: Triple-lumen central venous catheterCatheter size (Yemeni): 7Catheter length (cm): 20Catheter tip position: 2.5 [...] and agree with the report as written. [facility] HospitalBakciryQZHULM6020-89-80 22:08:14 Test Item Value Reference Range Interpretation [...] is seen overlying the expected inferior IVC. [facility] HospitalAwqhjssCOHEHZ0511-21-40 22:08:14 Test Item Value Reference Range Interpretation [...] is seen overlying the expected inferior IVC. [facility] HospitalYhuvtvdCLCDUK5326-47-24 22:08:14 Test Item Value Reference Range Interpretation [...] is seen overlying the expected inferior IVC. [facility] HospitalIzccpzxGODRPO2351-85-83 22:08:14 Test Item Value Reference Range Interpretation [...] is seen overlying the expected inferior IVC. [facility] HospitalNaqrojvEUEKSP6316-76-57 22:08:14 Test Item Value Reference Range Interpretation [...] is seen overlying the expected inferior IVC. [facility] HospitalTciuuqbVDATDY4825-26-74 22:08:14 Test Item Value Reference Range Interpretation [...] is seen overlying the expected inferior IVC. [facility] HospitalZxkmsurEGGKTB3264-37-51 22:08:14 Test Item Value Reference Range Interpretation [...] is seen overlying the expected inferior IVC. [facility] HospitalOjjzdjbSBEUOS2959-35-40 22:08:14 Test Item Value Reference Range Interpretation [...] is seen overlying the expected inferior IVC. [facility] HospitalLutqodfYWWRDS4229-22-20 22:08:14 Test Item Value Reference Range Interpretation [...] is seen overlying the expected inferior IVC. [facility] CenterMjxlukeFZHRNL1204-42-29 22:08:14 Test Item Value Reference Range Interpretation [...] is seen overlying the expected inferior IVC. [facility] CenterQdxegtwREWGUW6370-61-96 22:08:14 Test Item Value Reference Range Interpretation [...] is seen overlying the expected inferior IVC. [facility] CenterTdhsssnPTYUIE0473-27-46 22:08:14 Test Item Value Reference Range Interpretation [...] is seen overlying the expected inferior IVC. [facility] CenterMwknjqsTPHWJD3643-32-96 22:08:14 Test Item Value Reference Range Interpretation [...] is seen overlying the expected inferior IVC. [facility] HospitalGkydnraPLQXLF2211-76-56 22:08:14 Test Item Value Reference Range Interpretation [...] is seen overlying the expected inferior IVC. [facility] CenterGajckjoNLYOCO1661-91-69 22:08:14 Test Item Value Reference Range Interpretation [...] is seen overlying the expected inferior IVC. [facility] HospitalWyhdidpYSNEFH3103-72-84 22:08:14 Test Item Value Reference Range Interpretation [...] is seen overlying the expected inferior IVC. [facility] HospitalJhphvnxXEYGJW0723-09-82 22:08:14 Test Item Value Reference Range Interpretation [...] is seen overlying the expected inferior IVC. [facility] HospitalMmxrcjjWOMYFO6071-28-59 22:08:14 Test Item Value Reference Range Interpretation [...] is seen overlying the expected inferior IVC. [facility] HospitalCfjlkjeWDJZCT9829-01-38 22:08:14 Test Item Value Reference Range Interpretation [...] is seen overlying the expected inferior IVC. [facility] CenterKzzczleJVXLKT1416-98-48 22:08:14 Test Item Value Reference Range Interpretation [...] is seen overlying the expected inferior IVC. [facility] HospitalKudznvqOWEGMP2961-34-83 22:08:14 Test Item Value Reference Range Interpretation [...] is seen overlying the expected inferior IVC. [facility] CenterCofnzjlQOJMYB9509-69-70 22:08:14 Test Item Value Reference Range Interpretation [...] is seen overlying the expected inferior IVC. [facility] HospitalGowgrjqXBSUCS4480-06-87 22:08:14 Test Item Value Reference Range Interpretation [...] is seen overlying the expected inferior IVC. [facility] CenterFxhkbszPBGHDY0991-46-73 22:08:14 Test Item Value Reference Range Interpretation [...] is seen overlying the expected inferior IVC. [facility] CenterJejzundSHLVYM5026-00-25 22:08:14 Test Item Value Reference Range Interpretation [...] is seen overlying the expected inferior IVC. [facility] CenterKcecxcvOOVTXX4628-84-35 22:08:14 Test Item Value Reference Range Interpretation [...] is seen overlying the expected inferior IVC. [facility] CenterZoftsmkHTAXVY5172-69-40 22:08:14 Test Item Value Reference Range Interpretation [...] is seen overlying the expected inferior IVC. [facility] CenterEfbavwvWAWSEJ3270-37-30 22:08:14 Test Item Value Reference Range Interpretation [...] is seen overlying the expected inferior IVC. [facility] CenterYwvqanvPKSARN0498-78-84 22:08:14 Test Item Value Reference Range Interpretation [...] is seen overlying the expected inferior IVC. [facility] CenterZghzgdeUFBKDU6325-90-52 22:08:14 Test Item Value Reference Range Interpretation [...] is seen overlying the expected inferior IVC. [facility] HospitalHpwujrdQAKADB5665-91-33 22:08:14 Test Item Value Reference Range Interpretation [...] is seen overlying the expected inferior IVC. [facility] HospitalViazifjWSGNJZ4590-49-91 22:08:14 Test Item Value Reference Range Interpretation [...] is seen overlying the expected inferior IVC. [facility] CenterNynrjrwWKOZDS6312-02-87 19:23:01 Test Item Value Reference Range Interpretation [...] technical note.DLP: 659 mGy-cm.FINDINGS:Lines and Tubes: Likely BLACKENER shunt catheter entering the anterior abdominal wall [...] or malignancy in the abdomen and pelvis. [facility] DallasEcabkziROVQKD4163-46-44 19:23:01 Test Item Value Reference Range Interpretation [...] technical note.DLP: 659 mGy-cm.FINDINGS:Lines and Tubes: Likely BLACKENER shunt catheter entering the anterior abdominal wall [...] or malignancy in the abdomen and pelvis. [facility] CenterZvwjzdwNVAWZO9754-63-79 19:23:01 Test Item Value Reference Range Interpretation [...] technical note.DLP: 659 mGy-cm.FINDINGS:Lines and Tubes: Likely BLACKENER shunt catheter entering the anterior abdominal wall [...] or malignancy in the abdomen and pelvis. [facility] CenterHoevfbrGNPQVU6195-25-54 19:23:01 Test Item Value Reference Range Interpretation [...] technical note.DLP: 659 mGy-cm.FINDINGS:Lines and Tubes: Likely BLACKENER shunt catheter entering the anterior abdominal wall [...] or malignancy in the abdomen and pelvis. [facility] DallasEqltvgpRQECDR3754-36-75 19:23:01 Test Item Value Reference Range Interpretation [...] technical note.DLP: 659 mGy-cm.FINDINGS:Lines and Tubes: Likely BLACKENER shunt catheter entering the anterior abdominal wall [...] or malignancy in the abdomen and pelvis. [facility] DallasYgyxwrtNRIAKZ4682-93-03 19:23:01 Test Item Value Reference Range Interpretation [...] technical note.DLP: 659 mGy-cm.FINDINGS:Lines and Tubes: Likely BLACKENER shunt catheter entering the anterior abdominal wall [...] or malignancy in the abdomen and pelvis. [facility] DallasHrunwcsPYGMUD8103-67-32 19:23:01 Test Item Value Reference Range Interpretation [...] technical note.DLP: 659 mGy-cm.FINDINGS:Lines and Tubes: Likely BLACKENER shunt catheter entering the anterior abdominal wall [...] or malignancy in the abdomen and pelvis. [facility] DallasDlqogikQHEFII2678-34-78 19:23:01 Test Item Value Reference Range Interpretation [...] technical note.DLP: 659 mGy-cm.FINDINGS:Lines and Tubes: Likely BLACKENER shunt catheter entering the anterior abdominal wall [...] or malignancy in the abdomen and pelvis. [facility] DallasRjaewsqQDWRYD8112-72-01 19:23:01 Test Item Value Reference Range Interpretation [...] technical note.DLP: 659 mGy-cm.FINDINGS:Lines and Tubes: Likely BLACKENER shunt catheter entering the anterior abdominal wall [...] or malignancy in the abdomen and pelvis. [facility] DallasBdvuikaKLQHKQ2260-58-37 19:23:01 Test Item Value Reference Range Interpretation [...] technical note.DLP: 659 mGy-cm.FINDINGS:Lines and Tubes: Likely BLACKENER shunt catheter entering the anterior abdominal wall [...] or malignancy in the abdomen and pelvis. [facility] DallasWmufvjcPQFYJE3516-96-83 19:23:01 Test Item Value Reference Range Interpretation [...] technical note.DLP: 659 mGy-cm.FINDINGS:Lines and Tubes: Likely BLACKENER shunt catheter entering the anterior abdominal wall [...] or malignancy in the abdomen and pelvis. [facility] CenterOtctxhjFTCRRV4752-34-62 19:23:01 Test Item Value Reference Range Interpretation [...] technical note.DLP: 659 mGy-cm.FINDINGS:Lines and Tubes: Likely BLACKENER shunt catheter entering the anterior abdominal wall [...] or malignancy in the abdomen and pelvis. [facility] CenterHqzptvuRIIXTJ8587-42-67 19:23:01 Test Item Value Reference Range Interpretation [...] technical note.DLP: 659 mGy-cm.FINDINGS:Lines and Tubes: Likely BLACKENER shunt catheter entering the anterior abdominal wall [...] or malignancy in the abdomen and pelvis. [facility]VhqpcrcVFYLAJ5640-21-89 19:23:01 Test Item Value Reference Range Interpretation [...] technical note.DLP: 659 mGy-cm.FINDINGS:Lines and Tubes: Likely BLACKENER shunt catheter entering the anterior abdominal wall [...] or malignancy in the abdomen and pelvis. [facility] DallasVvrnjloPPVIHT1866-35-65 19:23:01 Test Item Value Reference Range Interpretation [...] technical note.DLP: 659 mGy-cm.FINDINGS:Lines and Tubes: Likely BLACKENER shunt catheter entering the anterior abdominal wall [...] or malignancy in the abdomen and pelvis. [facility] DallasSlgvuxiDNJOGK2900-46-99 19:23:01 Test Item Value Reference Range Interpretation [...] technical note.DLP: 659 mGy-cm.FINDINGS:Lines and Tubes: Likely BLACKENER shunt catheter entering the anterior abdominal wall [...] or malignancy in the abdomen and pelvis. [facility] DallasSmowtulOEIWQY2977-57-50 19:23:01 Test Item Value Reference Range Interpretation [...] technical note.DLP: 659 mGy-cm.FINDINGS:Lines and Tubes: Likely BLACKENER shunt catheter entering the anterior abdominal wall [...] or malignancy in the abdomen and pelvis. [facility] DallasAajfwyuWVQTAO7341-35-96 19:23:01 Test Item Value Reference Range Interpretation [...] technical note.DLP: 659 mGy-cm.FINDINGS:Lines and Tubes: Likely BLACKENER shunt catheter entering the anterior abdominal wall [...] or malignancy in the abdomen and pelvis. [facility] DallasVneqlreUKSGLR6959-23-25 19:23:01 Test Item Value Reference Range Interpretation [...] technical note.DLP: 659 mGy-cm.FINDINGS:Lines and Tubes: Likely BLACKENER shunt catheter entering the anterior abdominal wall [...] or malignancy in the abdomen and pelvis. [facility] HospitalQlmnctdZYXUET7404-06-26 19:23:01 Test Item Value Reference Range Interpretation [...] technical note.DLP: 659 mGy-cm.FINDINGS:Lines and Tubes: Likely BLACKENER shunt catheter entering the anterior abdominal wall [...] or malignancy in the abdomen and pelvis. [facility] CenterKjogiqeFJJAMO9038-92-27 19:23:01 Test Item Value Reference Range Interpretation [...] technical note.DLP: 659 mGy-cm.FINDINGS:Lines and Tubes: Likely BLACKENER shunt catheter entering the anterior abdominal wall [...] or malignancy in the abdomen and pelvis. [facility] DallasDcujosrTKMUYZ6838-65-89 19:23:01 Test Item Value Reference Range Interpretation [...] technical note.DLP: 659 mGy-cm.FINDINGS:Lines and Tubes: Likely BLACKENER shunt catheter entering the anterior abdominal wall [...] or malignancy in the abdomen and pelvis. [facility] DallasUaxljmiNRATIJ8032-86-99 19:23:01 Test Item Value Reference Range Interpretation [...] technical note.DLP: 659 mGy-cm.FINDINGS:Lines and Tubes: Likely BLACKENER shunt catheter entering the anterior abdominal wall [...] or malignancy in the abdomen and pelvis. [facility] DallasIhutqfdRCDLZA9671-15-31 19:23:01 Test Item Value Reference Range Interpretation [...] technical note.DLP: 659 mGy-cm.FINDINGS:Lines and Tubes: Likely BLACKENER shunt catheter entering the anterior abdominal wall [...] or malignancy in the abdomen and pelvis. [facility] DallasCeireliDFCALX4058-02-09 19:23:01 Test Item Value Reference Range Interpretation [...] technical note.DLP: 659 mGy-cm.FINDINGS:Lines and Tubes: Likely BLACKENER shunt catheter entering the anterior abdominal wall [...] or malignancy in the abdomen and pelvis. [facility] DallasZvdvvoaPFLOOF1859-45-21 19:23:01 Test Item Value Reference Range Interpretation [...] technical note.DLP: 659 mGy-cm.FINDINGS:Lines and Tubes: Likely BLACKENER shunt catheter entering the anterior abdominal wall [...] or malignancy in the abdomen and pelvis. [facility] DallasBishfjoMFRLMA9604-50-59 19:23:01 Test Item Value Reference Range Interpretation [...] technical note.DLP: 659 mGy-cm.FINDINGS:Lines and Tubes: Likely BLACKENER shunt catheter entering the anterior abdominal wall [...] or malignancy in the abdomen and pelvis. [facility] DallasQfilgrvEKZBPN6191-22-94 19:23:01 Test Item Value Reference Range Interpretation [...] technical note.DLP: 659 mGy-cm.FINDINGS:Lines and Tubes: Likely BLACKENER shunt catheter entering the anterior abdominal wall [...] or malignancy in the abdomen and pelvis. [facility] HospitalPkdvpjfOPTTGY6041-15-44 19:23:01 Test Item Value Reference Range Interpretation [...] technical note.DLP: 659 mGy-cm.FINDINGS:Lines and Tubes: Likely BLACKENER shunt catheter entering the anterior abdominal wall [...] or malignancy in the abdomen and pelvis. [facility] DallasPipwdsaJAQSDL9500-77-72 19:23:01 Test Item Value Reference Range Interpretation [...] technical note.DLP: 659 mGy-cm.FINDINGS:Lines and Tubes: Likely BLACKENER shunt catheter entering the anterior abdominal wall [...] or malignancy in the abdomen and pelvis. [facility] DallasGmgtjorDIQFFQ1075-10-88 19:23:01 Test Item Value Reference Range Interpretation [...] technical note.DLP: 659 mGy-cm.FINDINGS:Lines and Tubes: Likely BLACKENER shunt catheter entering the anterior abdominal wall [...] or malignancy in the abdomen and pelvis. [facility] DallasMvwnryoSJAGEI7987-78-54 19:23:01 Test Item Value Reference Range Interpretation [...] technical note.DLP: 659 mGy-cm.FINDINGS:Lines and Tubes: Likely BLACKENER shunt catheter entering the anterior abdominal wall [...] and pelvis. [facility] CenterIbatindSMMZUBDAK2640-94-40 05:31:00 Test Item Value Reference Range Interpretation Comments LDH (test code = LDH) 201 98-[address] CenterZempjcrXAZRLEXBB8559-41-40 05:31:00 Test Item Value Reference Range Interpretation Comments Uric Acid (test code = Uric Acid) 3.6 2.5-7.[address] CenterAnnfjzaOTKATXYXE6633-63-12 05:31:00 Test Item Value Reference Range Interpretation Comments Magnesium Lvl (test code = Magnesium 2.0 1.8-2.4 Lvl) [facility] CenterBptkvpkVFOWEEVXS5797-93-02 05:31:00 Test Item Value Reference Range Interpretation Comments Phosphorus (test code = Phosphorus) 3.9 2.5-4.[address] CenterUmypsopCLWUEYLKN0440-01-32 05:31:00 Test Item Value Reference Range Interpretation Comments LDH (test code = LDH) 201 98-[address] CenterFmtnkmqCGHYAJNER6373-14-04 05:31:00 Test Item Value Reference Range Interpretation Comments Uric Acid (test code = Uric Acid) 3.6 2.5-7.[address] [facility] CenterWvovnmvELTNNFXZK5728-48-47 05:31:00 Test Item Value Reference Range Interpretation Comments Magnesium Lvl (test code = Magnesium 2.0 1.8-2.4 Lvl) [facility] CenterAdjolnxWTOXPRUFQ1473-38-49 05:31:00 Test Item Value Reference Range Interpretation Comments Phosphorus (test code = Phosphorus) 3.9 2.5-4.[address] CenterMmhrddjIVHQXCNWL6181-75-68 05:31:00 Test Item Value Reference Range Interpretation Comments LDH (test code = LDH) 201 98-[address] [facility] CenterCtjrtmdAQHIFESAQ5909-31-78 05:31:00 Test Item Value Reference Range Interpretation Comments Uric Acid (test code = Uric Acid) 3.6 2.5-7.[address] [facility] CenterClwgjlvJPWDBQXDD6742-65-01 05:31:00 Test Item Value Reference Range Interpretation Comments Magnesium Lvl (test code = Magnesium 2.0 1.8-2.4 Lvl) [facility] CenterKajfihvELDWGFSEX9554-90-42 05:31:00 Test Item Value Reference Range Interpretation Comments Phosphorus (test code = Phosphorus) 3.9 2.5-4.[address] [facility] CenterCwrxmvhNGULQUYZB1172-66-29 05:31:00 Test Item Value Reference Range Interpretation Comments LDH (test code = LDH) 201 98-[address] [facility] CenterJdxaqlnISOSEJIIJ4410-81-84 05:31:00 Test Item Value Reference Range Interpretation Comments Uric Acid (test code = Uric Acid) 3.6 2.5-7.[address] [facility] CenterCmfhurfNXIWMWJAD1541-65-25 05:31:00 Test Item Value Reference Range Interpretation Comments Magnesium Lvl (test code = Magnesium 2.0 1.8-2.4 Lvl) [facility] CenterOcvgjmtWZGCDJVTN5446-16-03 05:31:00 Test Item Value Reference Range Interpretation Comments Phosphorus (test code = Phosphorus) 3.9 2.5-4.[address] [facility] CenterAlkeephYYPZCJDSU1186-91-08 05:31:00 Test Item Value Reference Range Interpretation Comments LDH (test code = LDH) 201 98-[address] CenterHinznbvJAAJFFRIB9059-19-91 05:31:00 Test Item Value Reference Range Interpretation Comments Uric Acid (test code = Uric Acid) 3.6 2.5-7.[address] CenterBeqmgvhQOWEVPRWX7998-58-60 05:31:00 Test Item Value Reference Range Interpretation Comments Magnesium Lvl (test code = Magnesium 2.0 1.8-2.4 Lvl) [facility] CenterFdmvnikFILTFPCKE8279-50-48 05:31:00 Test Item Value Reference Range Interpretation Comments Phosphorus (test code = Phosphorus) 3.9 2.5-4.[address] [facility] CenterJzqpkvpIIEOKGXIO6079-74-65 05:31:00 Test Item Value Reference Range Interpretation Comments LDH (test code = LDH) [address] [facility] CenterPzlhhqfYAECZUNWQ8892-76-76 05:31:00 Test Item Value Reference Range Interpretation Comments Uric Acid (test code = Uric Acid) 3.6 2.5-7.[address] [facility] CenterQwwqacvXWKYZYNIC1550-52-59 05:31:00 Test Item Value Reference Range Interpretation Comments Magnesium Lvl (test code = Magnesium 2.0 1.8-2.4 Lvl) [facility] CenterAmjucrwUZYQETKPY0642-69-55 05:31:00 Test Item Value Reference Range Interpretation Comments Phosphorus (test code = Phosphorus) 3.9 2.5-4.[address] [facility] CenterFwwgyhuMKDBYRKGZ7806-40-08 05:31:00 Test Item Value Reference Range Interpretation Comments LDH (test code = LDH) [address] CenterXxyhkbbZNBLNYJHO8574-14-92 05:31:00 Test Item Value Reference Range Interpretation Comments Uric Acid (test code = Uric Acid) 3.6 2.5-7.[address] [facility] CenterBxgykrhKIGOWRSJF6742-62-83 05:31:00 Test Item Value Reference Range Interpretation Comments Magnesium Lvl (test code = Magnesium 2.0 1.8-2.4 Lvl) [facility] CenterUntlowhTPJRGAMHJ2056-92-96 05:31:00 Test Item Value Reference Range Interpretation Comments Phosphorus (test code = Phosphorus) 3.9 2.5-4.[address] [facility] CenterJaotvtiCXYQITEFS5037-63-09 05:31:00 Test Item Value Reference Range Interpretation Comments LDH (test code = LDH) 201 [place] 675862-10-20 05:31:00 Test Item Value Reference Range Interpretation Comments Uric Acid (test code = Uric Acid) 3.6 2.5-7.[address] [facility] CenterJjxqecaZJQAHKBJP3905-86-62 05:31:00 Test Item Value Reference Range Interpretation Comments Magnesium Lvl (test code = Magnesium 2.0 1.8-2.4 Lvl) [facility] CenterOjvbkvvPYZOXSFNE3127-20-65 05:31:00 Test Item Value Reference Range Interpretation Comments Phosphorus (test code = Phosphorus) 3.9 2.5-4.[address] [facility] CenterWaorpoaJILVLJMJC7529-21-70 05:31:00 Test Item Value Reference Range Interpretation Comments LDH (test code = LDH) 201 98-[address] [facility] CenterBrcsqveUZTHTJROQ3386-11-60 05:31:00 Test Item Value Reference Range Interpretation Comments Uric Acid (test code = Uric Acid) 3.6 2.5-7.[address] [facility] CenterMkkrgusQNIKFUZBK2852-10-90 05:31:00 Test Item Value Reference Range Interpretation Comments Magnesium Lvl (test code = Magnesium 2.0 1.8-2.4 Lvl) [facility] CenterZfrrseeAOUQHXIVG8397-52-77 05:31:00 Test Item Value Reference Range Interpretation Comments Phosphorus (test code = Phosphorus) 3.9 2.5-4.[address] [facility] CenterFhtcqogYYUKESZMW0333-86-66 05:31:00 Test Item Value Reference Range Interpretation Comments LDH (test code = LDH) 201 -[address] [facility] CenterOzyldcsFOYFWYVJF1162-34-40 05:31:00 Test Item Value Reference Range Interpretation Comments Uric Acid (test code = Uric Acid) 3.6 2.5-7.[address] [facility] CenterKmgnropXLPUJKJOH1045-78-81 05:31:00 Test Item Value Reference Range Interpretation Comments Magnesium Lvl (test code = Magnesium 2.0 1.8-2.4 Lvl) [facility] CenterVxczfyiQJTPVKVUF3432-36-40 05:31:00 Test Item Value Reference Range Interpretation Comments Phosphorus (test code = Phosphorus) 3.9 2.5-4.[address] [facility] CenterMuwvpatALFBSHIUU0612-19-45 05:31:00 Test Item Value Reference Range Interpretation Comments LDH (test code = LDH) 201 98-[address] [facility] CenterLglgxxlTOLSSEEGW2861-61-59 05:31:00 Test Item Value Reference Range Interpretation Comments Uric Acid (test code = Uric Acid) 3.6 2.5-7.[address] [facility] CenterAabppctDOMSPEUVP5734-54-16 05:31:00 Test Item Value Reference Range Interpretation Comments Magnesium Lvl (test code = Magnesium 2.0 1.8-2.4 Lvl) [facility] CenterXraxtntPBYOQMAJG6407-27-27 05:31:00 Test Item Value Reference Range Interpretation Comments Phosphorus (test code = Phosphorus) 3.9 2.5-4.[address] [facility] CenterXcbvcpoNBGQNYYXL7295-07-87 05:31:00 Test Item Value Reference Range Interpretation Comments LDH (test code = LDH) 201 98- [facility] CenterNwoijceYKVVQGVWW8363-95-88 05:31:00 Test Item Value Reference Range Interpretation Comments Uric Acid (test code = Uric Acid) 3.6 2.5-7.[address] [facility] CenterLjuckqiCSPYKNYVV2454-79-41 05:31:00 Test Item Value Reference Range Interpretation Comments Magnesium Lvl (test code = Magnesium 2.0 1.8-2.4 Lvl) [facility] CenterOhamtmuXOTJNPXMH3800-35-27 05:31:00 Test Item Value Reference Range Interpretation Comments Phosphorus (test code = Phosphorus) 3.9 2.5-4.[address] [facility] CenterMvnukbbFLXRESHVR9367-46-96 05:31:00 Test Item Value Reference Range Interpretation Comments LDH (test code = LDH) [address] [facility] CenterLlpfngjWSZQMGOBV5167-61-49 05:31:00 Test Item Value Reference Range Interpretation Comments Uric Acid (test code = Uric Acid) 3.6 2.5-7.[address] CenterBiavukwVGSIENPOD5041-48-33 05:31:00 Test Item Value Reference Range Interpretation Comments Magnesium Lvl (test code = Magnesium 2.0 1.8-2.4 Lvl) [facility] CenterZucsqpmERIMULYEM9997-88-83 05:31:00 Test Item Value Reference Range Interpretation Comments Phosphorus (test code = Phosphorus) 3.9 2.5-4.[address] [facility] CenterUrnjusyOUNHVKXRW7730-91-34 05:31:00 Test Item Value Reference Range Interpretation Comments LDH (test code = LDH) 201 98-[address] [facility] CenterIinqrefCGLTTZZUD8610-18-19 05:31:00 Test Item Value Reference Range Interpretation Comments Uric Acid (test code = Uric Acid) 3.6 2.5-7.0 [place] [address]-10-20 05:31:00 Test Item Value Reference Range Interpretation Comments Magnesium Lvl (test code = Magnesium 2.0 1.8-2.4 Lvl) [facility] CenterFymygisQTOQLMWGT8082-56-47 05:31:00 Test Item Value Reference Range Interpretation Comments Phosphorus (test code = Phosphorus) 3.9 2.5-4.[address] [facility] CenterGxcuktxEKZPESLJL3510-17-55 05:31:00 Test Item Value Reference Range Interpretation Comments LDH (test code = LDH) [address] [facility] CenterJefcysbSTUBKSPYP0806-77-50 05:31:00 Test Item Value Reference Range Interpretation Comments Uric Acid (test code = Uric Acid) 3.6 2.5-7.[address] [facility] CenterDqldhqiTPALGJIXL7159-94-79 05:31:00 Test Item Value Reference Range Interpretation Comments Magnesium Lvl (test code = Magnesium 2.0 1.8-2.4 Lvl) [facility] CenterEoratnkMOLXUUQHT4456-82-94 05:31:00 Test Item Value Reference Range Interpretation Comments Phosphorus (test code = Phosphorus) 3.9 2.5-4.[address] [facility] CenterGfsozncZKIMXYPUA7782-81-74 05:31:00 Test Item Value Reference Range Interpretation Comments LDH (test code = LDH) [facility] CenterNjvaqsyDTOOFNRUP1316-97-55 05:31:00 Test Item Value Reference Range Interpretation Comments Uric Acid (test code = Uric Acid) 3.6 2.5-7.[address] [facility] CenterRdqinpgBECNQTZUY0445-80-13 05:31:00 Test Item Value Reference Range Interpretation Comments Magnesium Lvl (test code = Magnesium 2.0 1.8-2.4 Lvl) [facility] CenterWcprxdaUACKFDLVG9596-82-06 05:31:00 Test Item Value Reference Range Interpretation Comments Phosphorus (test code = Phosphorus) 3.9 2.5-4.[address] [facility] CenterKjyuzzoNBBPIJSMH8798-89-66 05:31:00 Test Item Value Reference Range Interpretation Comments LDH (test code = LDH) [address] CenterHthveisBZRSADBKR9011-97-81 05:31:00 Test Item Value Reference Range Interpretation Comments Uric Acid (test code = Uric Acid) 3.6 2.5-7.0 [place] [address]-10-20 05:31:00 Test Item Value Reference Range Interpretation Comments Magnesium Lvl (test code = Magnesium 2.0 1.8-2.4 Lvl) [facility] CenterFthwzzeXOJZTRCHF5988-12-71 05:31:00 Test Item Value Reference Range Interpretation Comments Phosphorus (test code = Phosphorus) 3.9 2.5-4.[address] [facility] CenterYtmqimtLXXOHPXIR1606-07-26 05:31:00 Test Item Value Reference Range Interpretation Comments LDH (test code = LDH) [address] [facility] CenterNeecnstTRJWJWHPM9754-72-77 05:31:00 Test Item Value Reference Range Interpretation Comments Uric Acid (test code = Uric Acid) 3.6 2.5-7.[address] [facility] CenterHiaganrZFZAXCJIF9545-90-46 05:31:00 Test Item Value Reference Range Interpretation Comments Magnesium Lvl (test code = Magnesium 2.0 1.8-2.4 Lvl) [facility] CenterFxhghydXFTETKKPC1071-67-47 05:31:00 Test Item Value Reference Range Interpretation Comments Phosphorus (test code = Phosphorus) 3.9 2.5-4.[address] [facility] CenterRzyleejJTQKIYWFJ2914-70-68 05:31:00 Test Item Value Reference Range Interpretation Comments LDH (test code = LDH) [facility] CenterKekwildLCSSSAYDI8890-06-48 05:31:00 Test Item Value Reference Range Interpretation Comments Uric Acid (test code = Uric Acid) 3.6 2.5-7.[address] [facility] CenterNbdhikmNEUIUAPNR5272-67-55 05:31:00 Test Item Value Reference Range Interpretation Comments Magnesium Lvl (test code = Magnesium 2.0 1.8-2.4 Lvl) [facility] CenterUeyudfyCVZHASBJZ4932-16-08 05:31:00 Test Item Value Reference Range Interpretation Comments Phosphorus (test code = Phosphorus) 3.9 2.5-4.[address] [facility] CenterVnigscsJTIJRHVGW1650-92-12 05:31:00 Test Item Value Reference Range Interpretation Comments LDH (test code = LDH) [facility] CenterUafrmkfSZMEZZVBV4535-14-03 05:31:00 Test Item Value Reference Range Interpretation Comments Uric Acid (test code = Uric Acid) 3.6 2.5-7.[address] [facility] CenterUwnsnguEKWKAYUHZ4733-75-39 05:31:00 Test Item Value Reference Range Interpretation Comments Magnesium Lvl (test code = Magnesium 2.0 1.8-2.4 Lvl) [facility] CenterNkwunucDNENOIWGA2909-36-24 05:31:00 Test Item Value Reference Range Interpretation Comments Phosphorus (test code = Phosphorus) 3.9 2.5-4.[address] [facility] CenterHzvwlrmOABKOMWGP9012-18-00 05:31:00 Test Item Value Reference Range Interpretation Comments LDH (test code = LDH) 201 - [facility] CenterFwudnqgGGGJQGHLM9262-91-01 05:31:00 Test Item Value Reference Range Interpretation Comments Uric Acid (test code = Uric Acid) 3.6 2.5-7.[address] [facility] CenterUnzaznxWLJZFMJVS9311-28-07 05:31:00 Test Item Value Reference Range Interpretation Comments Magnesium Lvl (test code = Magnesium 2.0 1.8-2.4 Lvl) [facility] CenterXtcqveqQILUBEVND6388-62-18 05:31:00 Test Item Value Reference Range Interpretation Comments Phosphorus (test code = Phosphorus) 3.9 2.5-4.[address] [facility] CenterFndbipvJWHVPWLCK4359-11-15 05:31:00 Test Item Value Reference Range Interpretation Comments LDH (test code = LDH) [facility] CenterZwdtmiyBSQPRAIBN9162-68-75 05:31:00 Test Item Value Reference Range Interpretation Comments Uric Acid (test code = Uric Acid) 3.6 2.5-7.[address] [facility] CenterZnmasawKUCTTHDTZ1290-49-77 05:31:00 Test Item Value Reference Range Interpretation Comments Magnesium Lvl (test code = Magnesium 2.0 1.8-2.4 Lvl) [facility] CenterGagbgbiXTSZZIPOW6176-73-74 05:31:00 Test Item Value Reference Range Interpretation Comments Phosphorus (test code = Phosphorus) 3.9 2.5-4.[address] [facility] CenterVajvgvyWJRBMMIOA2129-02-59 05:31:00 Test Item Value Reference Range Interpretation Comments LDH (test code = LDH) [address] CenterJpbyjipQLRFCQUVX5283-67-60 05:31:00 Test Item Value Reference Range Interpretation Comments Uric Acid (test code = Uric Acid) 3.6 2.5-7.[address] [facility] CenterJcddpsvQDULHDATN1416-98-28 05:31:00 Test Item Value Reference Range Interpretation Comments Magnesium Lvl (test code = Magnesium 2.0 1.8-2.4 Lvl) [facility] CenterDeaqqynGSHEWQHXW4064-73-86 05:31:00 Test Item Value Reference Range Interpretation Comments Phosphorus (test code = Phosphorus) 3.9 2.5-4.[address] [facility] CenterOilwtsyYJWXABMYK1432-11-29 05:31:00 Test Item Value Reference Range Interpretation Comments LDH (test code = LDH) 201 -192 [place] 675862-10-20 05:31:00 Test Item Value Reference Range Interpretation Comments Uric Acid (test code = Uric Acid) 3.6 2.5-7.[address] CenterGhzrvagPIIQHKVHZ3665-55-28 05:31:00 Test Item Value Reference Range Interpretation Comments Magnesium Lvl (test code = Magnesium 2.0 1.8-2.4 Lvl) [facility] CenterVzybtveVJELOEZWO3835-54-03 05:31:00 Test Item Value Reference Range Interpretation Comments Phosphorus (test code = Phosphorus) 3.9 2.5-4.[address] [facility] CenterAahdfczLVISCKEVD8770-09-89 05:31:00 Test Item Value Reference Range Interpretation Comments LDH (test code = LDH) [facility] CenterAqksmixNJTZCRIJO8751-42-65 05:31:00 Test Item Value Reference Range Interpretation Comments Uric Acid (test code = Uric Acid) 3.6 2.5-7.[address] [facility] CenterWvzvaqsNWXWLARTF8272-08-59 05:31:00 Test Item Value Reference Range Interpretation Comments Magnesium Lvl (test code = Magnesium 2.0 1.8-2.4 Lvl) [facility] CenterKweldgtAWKYBGRAO4988-02-99 05:31:00 Test Item Value Reference Range Interpretation Comments Phosphorus (test code = Phosphorus) 3.9 2.5-4.[address] [facility] CenterYmaicjyNANIEEYEW9567-49-95 05:31:00 Test Item Value Reference Range Interpretation Comments LDH (test code = LDH) [address] CenterOfqxjbhKSGPIXEPY9841-64-13 05:31:00 Test Item Value Reference Range Interpretation Comments Uric Acid (test code = Uric Acid) 3.6 2.5-7.[address] [facility] CenterIdpixxrXEYIGHCCX4591-18-00 05:31:00 Test Item Value Reference Range Interpretation Comments Magnesium Lvl (test code = Magnesium 2.0 1.8-2.4 Lvl) [facility] CenterDonhytrLTHLJKWRO3486-13-38 05:31:00 Test Item Value Reference Range Interpretation Comments Phosphorus (test code = Phosphorus) 3.9 2.5-4.[address] [facility] CenterTnunlzhIZRZLYUHS5405-13-60 05:31:00 Test Item Value Reference Range Interpretation Comments LDH (test code = LDH) [address] CenterIzasqaiNFODEUDOO2086-21-81 05:31:00 Test Item Value Reference Range Interpretation Comments Uric Acid (test code = Uric Acid) 3.6 2.5-7.[address] CenterHusqjilHVQKKFDAH8088-10-06 05:31:00 Test Item Value Reference Range Interpretation Comments Magnesium Lvl (test code = Magnesium 2.0 1.8-2.4 Lvl) [facility] CenterCevqmrtITLUZDWRV8405-38-68 05:31:00 Test Item Value Reference Range Interpretation Comments Phosphorus (test code = Phosphorus) 3.9 2.5-4.[address] [facility] CenterHbccenuOEIBRRHJN1216-50-04 05:31:00 Test Item Value Reference Range Interpretation Comments LDH (test code = LDH) 201 98-[address] CenterGrbqjksIOZHHVSJK6088-68-82 05:31:00 Test Item Value Reference Range Interpretation Comments Uric Acid (test code = Uric Acid) 3.6 2.5-7.[address] [facility] CenterGdbxyjeITJHCPGDY7836-45-04 05:31:00 Test Item Value Reference Range Interpretation Comments Magnesium Lvl (test code = Magnesium 2.0 1.8-2.4 Lvl) [facility] CenterKxkovepJXACOGXAZ2887-28-34 05:31:00 Test Item Value Reference Range Interpretation Comments Phosphorus (test code = Phosphorus) 3.9 2.5-4.[address] [facility] CenterPccsequWBDSERXEP4685-84-99 05:31:00 Test Item Value Reference Range Interpretation Comments LDH (test code = LDH) 201 98-[address] [facility] CenterCxpvzeeAEUTBFBJA7043-25-26 05:31:00 Test Item Value Reference Range Interpretation Comments Uric Acid (test code = Uric Acid) 3.6 2.5-7.[address] [facility] CenterCeikkkxEZCASXUOI5820-09-89 05:31:00 Test Item Value Reference Range Interpretation Comments Magnesium Lvl (test code = Magnesium 2.0 1.8-2.4 Lvl) [facility] CenterAsntcdmTKDDSEVBT9051-41-68 05:31:00 Test Item Value Reference Range Interpretation Comments Phosphorus (test code = Phosphorus) 3.9 2.5-4.[address] [facility] CenterYdrxqyiWXYQRYITX6219-68-36 05:31:00 Test Item Value Reference Range Interpretation Comments LDH (test code = LDH) 201 98-[address] [facility] CenterOqjzdjwEJSUXAXIS5745-58-10 05:31:00 Test Item Value Reference Range Interpretation Comments Uric Acid (test code = Uric Acid) 3.6 2.5-7.[address] [facility] CenterUskwgsqGIDQDQQJF8864-29-34 05:31:00 Test Item Value Reference Range Interpretation Comments Magnesium Lvl (test code = Magnesium 2.0 1.8-2.4 Lvl) [facility] CenterIkjrpamLIFGGYZPG9480-20-15 05:31:00 Test Item Value Reference Range Interpretation Comments Phosphorus (test code = Phosphorus) 3.9 2.5-4.[address] [facility] CenterYlvfhxoPLTIBWVJK4406-79-74 05:31:00 Test Item Value Reference Range Interpretation Comments LDH (test code = LDH) 201 98-[address] [facility] CenterZwryqfdOQLYFRAFA0425-11-26 05:31:00 Test Item Value Reference Range Interpretation Comments Uric Acid (test code = Uric Acid) 3.6 2.5-7.[address] [facility] CenterIxfykagTDBTEFZNG4257-55-08 05:31:00 Test Item Value Reference Range Interpretation Comments Magnesium Lvl (test code = Magnesium 2.0 1.8-2.4 Lvl) [facility] CenterZahlcylMQZUQFMMZ2665-44-00 05:31:00 Test Item Value Reference Range Interpretation Comments Phosphorus (test code = Phosphorus) 3.9 2.5-4.[address] [facility] CenterNbmejqaIMZZMMMUQ2024-30-89 05:31:00 Test Item Value Reference Range Interpretation Comments LDH (test code = LDH) 201 98-[address] [facility] CenterKttlndyBQFCHDHZU5151-89-36 05:31:00 Test Item Value Reference Range Interpretation Comments Uric Acid (test code = Uric Acid) 3.6 2.5-7.[address] [facility] CenterRzusecmSIVDCANMV7430-77-74 05:31:00 Test Item Value Reference Range Interpretation Comments Magnesium Lvl (test code = Magnesium 2.0 1.8-2.4 Lvl) [facility] CenterRtpzmvgGAPHZLKDO6802-59-12 05:31:00 Test Item Value Reference Range Interpretation Comments Phosphorus (test code = Phosphorus) 3.9 2.5-4.5 [place] [id number] 18:39:54 Test Item Value Reference Range Interpretation [...] stable condition.Impression:Succe ssful anterior mediastinal mass biopsy. [facility]CephgreTVMQLB4750-81-54 18:39:54 Test Item Value Reference Range Interpretation [...] stable condition.Impression:Succe ssful anterior mediastinal mass biopsy. [facility] 18:39:54 Test Item Value Reference Range Interpretation [...] stable condition.Impression:Succe ssful anterior mediastinal mass biopsy. [facility] DallasZysvxcoAAMFNO0705-63-96 18:39:54 Test Item Value Reference Range Interpretation [...] stable condition.Impression:Succe ssful anterior mediastinal mass biopsy. [facility]JjfljlwAEEJHW8050-[facility] 18:39:54 Test Item Value Reference Range Interpretation [...] stable condition.Impression:Succe ssful anterior mediastinal mass biopsy. [facility] HospitalQvfhpivGUGQFA5168-51-65 18:39:54 Test Item Value Reference Range Interpretation [...] stable condition.Impression:Succe ssful anterior mediastinal mass biopsy. [facility] HospitalHytydpsLHTSJS4124-77-75 18:39:54 Test Item Value Reference Range Interpretation [...] stable condition.Impression:Succe ssful anterior mediastinal mass biopsy. [facility] HospitalQvgcucfWRBWHE1079-50-01 18:39:54 Test Item Value Reference Range Interpretation [...] stable condition.Impression:Succe ssful anterior mediastinal mass biopsy. [facility] HospitalJwvzspyBFYXWG8804-23-84 18:39:54 Test Item Value Reference Range Interpretation [...] stable condition.Impression:Succe ssful anterior mediastinal mass biopsy. [facility] HospitalVdocmojGLJGYK3870-55-75 18:39:54 Test Item Value Reference Range Interpretation [...] stable condition.Impression:Succe ssful anterior mediastinal mass biopsy. [facility] DallasGifvrtqZWQGYV4543-53-79 18:39:54 Test Item Value Reference Range Interpretation [...] stable condition.Impression:Succe ssful anterior mediastinal mass biopsy. [facility] HospitalSgvixxdYYDPOW5366-87-01 18:39:54 Test Item Value Reference Range Interpretation [...] stable condition.Impression:Succe ssful anterior mediastinal mass biopsy. [facility] DallasKcetzyvOFVYEO1895-34-99 18:39:54 Test Item Value Reference Range Interpretation [...] condition.Impression:Succe ssful anterior mediastinal mass biopsy. Leah MarcOryxzqdPGQFEP4710-43-98 18:39:54 Test Item Value Reference Range Interpretation [...] stable condition.Impression:Succe ssful anterior mediastinal mass biopsy. [facility] HospitalKygqsesXILBYI5222-39-32 18:39:54 Test Item Value Reference Range Interpretation [...] stable condition.Impression:Succe ssful anterior mediastinal mass biopsy. [facility] HospitalCyemcbqFQNNEJ3823-37-82 18:39:54 Test Item Value Reference Range Interpretation [...] stable condition.Impression:Succe ssful anterior mediastinal mass biopsy. [facility] HospitalUkaznikRUNMHM5340-84-77 18:39:54 Test Item Value Reference Range Interpretation [...] stable condition.Impression:Succe ssful anterior mediastinal mass biopsy. [facility] DallasFjuvtwvPJHRLQ6532-29-00 18:39:54 Test Item Value Reference Range Interpretation [...] stable condition.Impression:Succe ssful anterior mediastinal mass biopsy. [facility] DallasAqnikllZKOPUR2672-23-24 18:39:54 Test Item Value Reference Range Interpretation [...] stable condition.Impression:Succe ssful anterior mediastinal mass biopsy. [facility] DallasWjmjqheUQCTDS7696-14-04 18:39:54 Test Item Value Reference Range Interpretation [...] stable condition.Impression:Succe ssful anterior mediastinal mass biopsy. [facility]VikluyeRGKDHK3295-[facility] 18:39:54 Test Item Value Reference Range Interpretation [...] stable condition.Impression:Succe ssful anterior mediastinal mass biopsy. [facility] HospitalKkpmulfFSRMSX9955-20-71 18:39:54 Test Item Value Reference Range Interpretation [...] stable condition.Impression:Succe ssful anterior mediastinal mass biopsy. [facility] HospitalWskbxzlEUXQVQ4808-95-12 18:39:54 Test Item Value Reference Range Interpretation [...] stable condition.Impression:Succe ssful anterior mediastinal mass biopsy. [facility] HospitalUmicvarUYRGFX0840-15-70 18:39:54 Test Item Value Reference Range Interpretation [...] stable condition.Impression:Succe ssful anterior mediastinal mass biopsy. [facility] CenterOfiphmjVIRTKE0703-72-02 18:39:54 Test Item Value Reference Range Interpretation [...] stable condition.Impression:Succe ssful anterior mediastinal mass biopsy. [facility] HospitalGufgfptFZTRQS2427-26-15 18:39:54 Test Item Value Reference Range Interpretation [...] stable condition.Impression:Succe ssful anterior mediastinal mass biopsy. [facility] HospitalSedayllNOXQWD7549-64-76 18:39:54 Test Item Value Reference Range Interpretation [...] stable condition.Impression:Succe ssful anterior mediastinal mass biopsy. [facility] HospitalNhjljjoBWIZVT4480-48-19 18:39:54 Test Item Value Reference Range Interpretation [...] stable condition.Impression:Succe ssful anterior mediastinal mass biopsy. [facility] HospitalDqpukkkZNGTRL6775-97-19 18:39:54 Test Item Value Reference Range Interpretation [...] stable condition.Impression:Succe ssful anterior mediastinal mass biopsy. [facility] DallasRonaydbIQIBCL9273-34-08 18:39:54 Test Item Value Reference Range Interpretation [...] stable condition.Impression:Succe ssful anterior mediastinal mass biopsy. [facility] HospitalLfciphwJCNNBB0300-26-14 18:39:54 Test Item Value Reference Range Interpretation [...] stable condition.Impression:Succe ssful anterior mediastinal mass biopsy. [facility] JauiwcrUMEBYW1004-00-90 18:39:54 Test Item Value Reference Range Interpretation [...] stable condition.Impression:Succe ssful anterior mediastinal mass biopsy. [place] 780862-10-16 11:49:02 Test Item Value Reference Range Interpretation [...] demonstrates no gross abnormalities.Impression:No acute cardiopulmonary disease [place] 780862-10-16 11:49:02 Test Item Value Reference Range Interpretation [...] demonstrates no gross abnormalities.Impression:No acute cardiopulmonary disease [place] [address]-10-16 11:49:02 Test Item Value Reference Range Interpretation [...] demonstrates no gross abnormalities.Impression:No acute cardiopulmonary disease [place] [address]-10-16 11:49:02 Test Item Value Reference Range Interpretation [...] demonstrates no gross abnormalities.Impression:No acute cardiopulmonary disease [place] 780862-10-16 11:49:02 Test Item Value Reference Range Interpretation [...] demonstrates no gross abnormalities.Impression:No acute cardiopulmonary disease [place] 86095022-10-16 11:49:02 Test Item Value Reference Range Interpretation [...] demonstrates no gross abnormalities.Impression:No acute cardiopulmonary disease [place] 780862-10-16 11:49:02 Test Item Value Reference Range Interpretation [...] demonstrates no gross abnormalities.Impression:No acute cardiopulmonary disease [facility] HospitalUgjepbvRGVFXG1918-59-91 11:49:02 Test Item Value Reference Range Interpretation [...] demonstrates no gross abnormalities.Impression:No acute cardiopulmonary disease [facility] HospitalNdwqjbrWTDLJB6373-80-81 11:49:02 Test Item Value Reference Range Interpretation [...] demonstrates no gross abnormalities.Impression:No acute cardiopulmonary disease [place] 780862-10-16 11:49:02 Test Item Value Reference Range Interpretation [...] demonstrates no gross abnormalities.Impression:No acute cardiopulmonary disease [place] 86095022-10-16 11:49:02 Test Item Value Reference Range Interpretation [...] demonstrates no gross abnormalities.Impression:No acute cardiopulmonary disease [place] 780862-10-16 11:49:02 Test Item Value Reference Range Interpretation [...] demonstrates no gross abnormalities.Impression:No acute cardiopulmonary disease [place] 780862-10-16 11:49:02 Test Item Value Reference Range Interpretation [...] demonstrates no gross abnormalities.Impression:No acute cardiopulmonary disease [place] [address]-10-16 11:49:02 Test Item Value Reference Range Interpretation [...] demonstrates no gross abnormalities.Impression:No acute cardiopulmonary disease [place] [address]-10-16 11:49:02 Test Item Value Reference Range Interpretation [...] demonstrates no gross abnormalities.Impression:No acute cardiopulmonary disease [place] 780862-10-16 11:49:02 Test Item Value Reference Range Interpretation [...] demonstrates no gross abnormalities.Impression:No acute cardiopulmonary disease [place] 780862-10-16 11:49:02 Test Item Value Reference Range Interpretation [...] demonstrates no gross abnormalities.Impression:No acute cardiopulmonary disease [place] [address]-10-16 11:49:02 Test Item Value Reference Range Interpretation [...] demonstrates no gross abnormalities.Impression:No acute cardiopulmonary disease [facility] HospitalVnyvbklSFTRCK3422-08-14 11:49:02 Test Item Value Reference Range Interpretation [...] demonstrates no gross abnormalities.Impression:No acute cardiopulmonary disease [place] 780862-10-16 11:49:02 Test Item Value Reference Range Interpretation [...] demonstrates no gross abnormalities.Impression:No acute cardiopulmonary disease [place] 780862-10-16 11:49:02 Test Item Value Reference Range Interpretation [...] demonstrates no gross abnormalities.Impression:No acute cardiopulmonary disease [place] 780862-10-16 11:49:02 Test Item Value Reference Range Interpretation [...] demonstrates no gross abnormalities.Impression:No acute cardiopulmonary disease [place] [id number] 11:49:02 Test Item Value Reference Range Interpretation [...] demonstrates no gross abnormalities.Impression:No acute cardiopulmonary disease [place] 780862-10-16 11:49:02 Test Item Value Reference Range Interpretation [...] demonstrates no gross abnormalities.Impression:No acute cardiopulmonary disease [place] [address]-10-16 11:49:02 Test Item Value Reference Range Interpretation [...] demonstrates no gross abnormalities.Impression:No acute cardiopulmonary disease [place] [address]-10-16 11:49:02 Test Item Value Reference Range Interpretation [...] demonstrates no gross abnormalities.Impression:No acute cardiopulmonary disease [place] 780862-10-16 11:49:02 Test Item Value Reference Range Interpretation [...] demonstrates no gross abnormalities.Impression:No acute cardiopulmonary disease [place] 780862-10-16 11:49:02 Test Item Value Reference Range Interpretation [...] demonstrates no gross abnormalities.Impression:No acute cardiopulmonary disease [place] [address]-10-16 11:49:02 Test Item Value Reference Range Interpretation [...] demonstrates no gross abnormalities.Impression:No acute cardiopulmonary disease [place] [id number] 11:49:02 Test Item Value Reference Range Interpretation [...] demonstrates no gross abnormalities.Impression:No acute cardiopulmonary disease [place] [id number] 11:49:02 Test Item Value Reference Range Interpretation [...] demonstrates no gross abnormalities.Impression:No acute cardiopulmonary disease [place] [id number] 11:49:02 Test Item Value Reference Range Interpretation [...] demonstrates no gross abnormalities.Impression:No acute cardiopulmonary disease [facility]2022-10-16 09:37:00 Test Item Value Reference Range Interpretation Comments Procalcitonin Lvl (test no gt See_Comment [Au tomated message] code = Procalcitonin Lvl) Th e system which generated this result transmitted ref erence range: <=0.10. The reference range was not used to interpr et this result as normal/abnormal . [place] 786342-10-16 09:37:00 Test Item Value Reference Range Interpretation Comments Glucose Lvl (test code = Glucose Lvl) 103 70-99 [place] 786342-10-16 09:37:00 Test Item Value Reference Range Interpretation Comments BUN (test code = BUN) 13 7-22 [place] 786342-10-16 09:37:00 Test Item Value Reference Range Interpretation Comments Creatinine Lvl (test code = Creatinine 0.67 0.50-1.40 Lvl) [place] 786342-10-16 09:37:00 Test Item Value Reference Range Interpretation Comments Sodium Lvl (test code = Sodium Lvl) 138 135-145 [place] 786342-10-16 09:37:00 Test Item Value Reference Range Interpretation Comments Potassium Lvl (test code = Potassium 3.7 3.5-5.1 Lvl) [place] 786342-10-16 09:37:00 Test Item Value Reference Range Interpretation Comments Chloride Lvl (test code = Chloride Lvl) 98 95-109 [place] 786342-10-16 09:37:00 Test Item Value Reference Range Interpretation Comments CO2 (test code = CO2) 32 24-32 [place] 786342-10-16 09:37:00 Test Item Value Reference Range Interpretation Comments Calcium Lvl (test code = Calcium Lvl) 9.3 8.5-10.5 [place] 786342-10-16 09:37:00 Test Item Value Reference Range Interpretation Comments Total Protein (test code = Total 7.5 6.4-8.4 Protein) [place] 786342-10-16 09:37:00 Test Item Value Reference Range Interpretation Comments Albumin Lvl (test code = Albumin Lvl) 3.0 3.5-5.0 [place] 786342-10-16 09:37:00 Test Item Value Reference Range Interpretation Comments ALT (test code = ALT) 18 See_Comment [Auto mated message] The system which ge nerated this result transmit fabiano reference range : <=65. The reference range was not used to interpr et this result as aleks l/abnormal. [place] 57175-10-16 09:37:00 Test Item Value Reference Range Interpretation Comments AST (test code = AST) 6 See_Comment [Auto mated message] The system which ge nerated this result transmit fabiano reference range : <=37. The reference range was not used to interpr et this result as laeks l/abnormal. [facility] [id number] 09:37:00 Test Item Value Reference Range Interpretation Comments Alk Phos (test code = Alk Phos) 118 39-136 [facility] [id number] 09:37:00 Test Item Value Reference Range Interpretation Comments Bili Total (test code = Bili Total) 0.4 0.2-1.3 [facility] VMFUG0926-28-35 09:37:00 Test Item Value Reference Range Interpretation Comments AGAP (test code = AGAP) 11.7 10.0-20.0 [facility] [id number] 09:37:00 Test Item Value Reference Range Interpretation Comments B/C Ratio (test code = B/C Ratio) 19 1 6-25 [facility] [id number] 09:37:00 Test Item Value Reference Range Interpretation Comments Globulin (test code = Globulin) 4.5 2.7-4.2 [facility] VYTFN3982-31-11 09:37:00 Test Item Value Reference Range Interpretation Comments A/G Ratio (test code = A/G Ratio) 0.7 1 0.7-1.6 [facility] [id number] 09:37:00 Test Item Value Reference Range Interpretation Comments eGFR (test code = eGFR) 105 [facility] [id number] 09:37:00 Test Item Value Reference Range Interpretation Comments Phosphorus (test code = Phosphorus) 3.7 2.5-4.5 [facility] HospitalNetevenJON [facility] 89918RWRJZ5165-82-20 09:37:00 Test Item Value Reference Range Interpretation Comments Procalcitonin Lvl (test no gt See_Comment [Au tomated message] code = Procalcitonin Lvl) Th e system which generated this result transmitted ref erence range: <=0.10. The reference range was not used to interpr et this result as normal/abnormal . [facility] [id number] 09:37:00 Test Item Value Reference Range Interpretation Comments Glucose Lvl (test code = Glucose Lvl) 103 70-99 [place] 786342-10-16 09:37:00 Test Item Value Reference Range Interpretation Comments BUN (test code = BUN) 13 7-22 [place] 786342-10-16 09:37:00 Test Item Value Reference Range Interpretation Comments Magnesium Lvl (test code = Magnesium 2.1 1.8-2.4 Lvl) [place] 786342-10-16 09:37:00 Test Item Value Reference Range Interpretation Comments Creatinine Lvl (test code = Creatinine 0.67 0.50-1.40 Lvl) [place] 786342-10-16 09:37:00 Test Item Value Reference Range Interpretation Comments Sodium Lvl (test code = Sodium Lvl) 138 135-145 [place] 786342-10-16 09:37:00 Test Item Value Reference Range Interpretation Comments Potassium Lvl (test code = Potassium 3.7 3.5-5.1 Lvl) [place] 786342-10-16 09:37:00 Test Item Value Reference Range Interpretation Comments Chloride Lvl (test code = Chloride Lvl) 98 95-109 [place] 786342-10-16 09:37:00 Test Item Value Reference Range Interpretation Comments CO2 (test code = CO2) 32 24-32 [place] 786342-10-16 09:37:00 Test Item Value Reference Range Interpretation Comments Calcium Lvl (test code = Calcium Lvl) 9.3 8.5-10.5 [place] 786342-10-16 09:37:00 Test Item Value Reference Range Interpretation Comments Total Protein (test code = Total 7.5 6.4-8.4 Protein) [place] 57175-10-16 09:37:00 Test Item Value Reference Range Interpretation Comments Albumin Lvl (test code = Albumin Lvl) 3.0 3.5-5.0 [place] 786342-10-16 09:37:00 Test Item Value Reference Range Interpretation Comments ALT (test code = ALT) 18 See_Comment [Auto mated message] The system which ge nerated this result transmit fabiano reference range : <=65. The reference range was not used to interpr et this result as aleks l/abnormal. [place] 786342-10-16 09:37:00 Test Item Value Reference Range Interpretation Comments AST (test code = AST) 6 See_Comment [Auto mated message] The system which ge nerated this result transmit fabiano reference range : <=37. The reference range was not used to interpr et this result as aleks l/abnormal. [facility] DallasUsjarwvEJMLTARXN5560-31-23 09:37:00 Test Item Value Reference Range Interpretation Comments Procalcitonin Lvl (test no gt See_Comment [Au tomated message] code = Procalcitonin Lvl) Th e system which generated this result transmitted ref erence range: <=0.10. The reference range was not used to interpr et this result as normal/abnormal . [facility] [id number] 09:37:00 Test Item Value Reference Range Interpretation Comments Alk Phos (test code = Alk Phos) 118 39-136 [facility] [id number] 09:37:00 Test Item Value Reference Range Interpretation Comments Bili Total (test code = Bili Total) 0.4 0.2-1.3 [facility] [id number] 09:37:00 Test Item Value Reference Range Interpretation Comments AGAP (test code = AGAP) 11.7 10.0-20.0 [facility] [employer] [id number] 09:37:00 Test Item Value Reference Range Interpretation Comments B/C Ratio (test code = B/C Ratio) 19 1 6-25 [facility] [id number] 09:37:00 Test Item Value Reference Range Interpretation Comments Globulin (test code = Globulin) 4.5 2.7-4.2 [facility] [employer] [id number] 09:37:00 Test Item Value Reference Range Interpretation Comments A/G Ratio (test code = A/G Ratio) 0.7 1 0.7-1.6 [facility] [employer] [id number] 09:37:00 Test Item Value Reference Range Interpretation Comments eGFR (test code = eGFR) 105 [facility] [id number] 09:37:00 Test Item Value Reference Range Interpretation Comments Phosphorus (test code = Phosphorus) 3.7 2.5-4.5 [facility] [id number] 09:37:00 Test Item Value Reference Range Interpretation Comments Magnesium Lvl (test code = Magnesium 2.1 1.8-2.4 Lvl) [facility] DallasZkodcrkVINAROZPV8938-79-39 09:37:00 Test Item Value Reference Range Interpretation Comments Procalcitonin Lvl (test no gt See_Comment [Au tomated message] code = Procalcitonin Lvl) Th e system which generated this result transmitted ref erence range: <=0.10. The reference range was not used to interpr et this result as normal/abnormal . [facility] CenterGsftwveGPDOBRBMLR8874-47-89 09:37:00 Test Item Value Reference Range Interpretation Comments WBC (test code = WBC) 15.7 3.7-10.4 [facility] CenterHtmxafkNSRXXEXBIE4122-96-23 09:37:00 Test Item Value Reference Range Interpretation Comments WBC (test code = WBC) 15.7 3.7-10.4 [facility] CenterYigvfgoJKCHSHADGP7075-58-41 09:37:00 Test Item Value Reference Range Interpretation Comments RBC (test code = RBC) 4.10 4.20-5.40 [facility] CenterJpxdmqpTZLSRYCKZM6706-30-06 09:37:00 Test Item Value Reference Range Interpretation Comments Hgb (test code = Hgb) 10.7 12.0-16.0 [facility] CenterLuksbhoDWPHDKSHIW5174-00-75 09:37:00 Test Item Value Reference Range Interpretation Comments Hct (test code = Hct) 32.8 36.0-48.0 [facility] CenterHcbrfrdPVKBJYQFVR0690-11-36 09:37:00 Test Item Value Reference Range Interpretation Comments MCV (test code = MCV) 80.0 80.0-98.0 [facility] CenterRijfjprKNBZXVRDCJ2007-46-15 09:37:00 Test Item Value Reference Range Interpretation Comments MCH (test code = MCH) 26.1 pg 27.0-31.0 [facility] CenterJtdjemoZHNBGIKNWT7575-04-94 09:37:00 Test Item Value Reference Range Interpretation Comments MCHC (test code = MCHC) 32.6 32.0-36.0 [facility] CenterTyyoenhBRPYFHAAEM8625-92-10 09:37:00 Test Item Value Reference Range Interpretation Comments RDW (test code = RDW) 16.4 11.5-14.5 [facility] CenterKfbyvwnHOVQQRKPLI0571-20-65 09:37:00 Test Item Value Reference Range Interpretation Comments Platelet (test code = Platelet) 362 625-450 [facility] CenterTdjbdytTRVYFLOWYR7451-75-78 09:37:00 Test Item Value Reference Range Interpretation Comments MPV (test code = MPV) 8.1 7.4-10.4 [place] 439852-10-16 09:37:00 Test Item Value Reference Range Interpretation Comments RBC (test code = RBC) 4.10 4.20-5.40 [place] 439852-10-16 09:37:00 Test Item Value Reference Range Interpretation Comments Segs (test code = Segs) 76.4 45.0-75.0 [place] 439852-10-16 09:37:00 Test Item Value Reference Range Interpretation Comments Lymphocytes (test code = Lymphocytes) 13.3 20.0-40.0 [place] 439852-10-16 09:37:00 Test Item Value Reference Range Interpretation Comments Monocytes (test code = Monocytes) 5.7 2.0-12.0 [place] 439852-10-16 09:37:00 Test Item Value Reference Range Interpretation Comments Eosinophils (test code = 3.7 See_Comment [A utomated message] The Eosinophils) system which ge nerated this result tra nsmitted reference range : <=4.0. The reference r quynh was not used to int erpret this result as normal/abnormal . [place] 37055-10-16 09:37:00 Test Item Value Reference Range Interpretation Comments Basophils (test code = 0.9 See_Comment [Aut omated message] The Basophils) system which ge nerated this result tra nsmitted reference range : <=1.0. The reference r quynh was not used to int erpret this result as normal/abnormal . [facility] CenterTiyzjliFGEDJBOWXZ3479-79-16 09:37:00 Test Item Value Reference Range Interpretation Comments Neutrophils # (test code = Neutrophils 12.0 1.5-8.1 #) [place] [address]055-10-16 09:37:00 Test Item Value Reference Range Interpretation Comments Lymphocytes # (test code = Lymphocytes 2.1 1.0-5.5 #) [place] 439852-10-16 09:37:00 Test Item Value Reference Range Interpretation Comments Monocytes # (test code 0.9 See_Comment [Aut omated message] The = Monocytes #) system which generated this result tra nsmitted reference range : <=0.8. The reference r quynh was not used to int erpret this result as normal/abnormal . [facility] DallasSwyyfgdFTLPLYBNNQ3565-72-05 09:37:00 Test Item Value Reference Range Interpretation Comments Eosinophils # (test code 0.6 See_Comment [A utomated message] The = Eosinophils #) system whic h generated this result tra nsmitted reference range : <=0.5. The reference r quyhn was not used to int erpret this result as normal/abnormal . [facility] DallasDzoichtYWLLRVNJMT3613-82-92 09:37:00 Test Item Value Reference Range Interpretation Comments Basophils # (test code 0.1 See_Comment [Aut omated message] The = Basophils #) system which generated this result tra nsmitted reference range : <=0.2. The reference r quynh was not used to int erpret this result as normal/abnormal . [facility] [facility]taqlhcXWGMZDAFYC0813-74-31 09:37:00 Test Item Value Reference Range Interpretation Comments Hgb (test code = Hgb) 10.7 12.0-16.0 [facility] CenterZjilnrsUVKYVMTOEV9262-55-90 09:37:00 Test Item Value Reference Range Interpretation Comments Hct (test code = Hct) 32.8 36.0-48.0 [facility] DallasCzdptcjQTSMYMCZCX7621-71-15 09:37:00 Test Item Value Reference Range Interpretation Comments MCV (test code = MCV) 80.0 80.0-98.0 [facility]KrqmmatWXOKOALNSA9524-17-85 09:37:00 Test Item Value Reference Range Interpretation Comments MCH (test code = MCH) 26.1 pg 27.0-31.0 [facility] DallasKievdepRHNHWWFSMW6292-39-29 09:37:00 Test Item Value Reference Range Interpretation Comments MCHC (test code = MCHC) 32.6 32.0-36.0 [facility] DallasJbldtqjAJMZSYHTVZ4665-37-07 09:37:00 Test Item Value Reference Range Interpretation Comments RDW (test code = RDW) 16.4 11.5-14.5 [facility] DallasNovnzatMJUGGVSABB1801-20-17 09:37:00 Test Item Value Reference Range Interpretation Comments Platelet (test code = Platelet) 362 133-450 [facility] DallasKsijgnoOQYDEAJGQL5729-18-42 09:37:00 Test Item Value Reference Range Interpretation Comments MPV (test code = MPV) 8.1 7.4-10.4 [facility] CenterSgsxdrqZWIJGVKDPD1268-12-22 09:37:00 Test Item Value Reference Range Interpretation Comments Segs (test code = Segs) 76.4 45.0-75.0 [facility] CenterNabfosbKTVDIUOQCX2610-05-34 09:37:00 Test Item Value Reference Range Interpretation Comments Lymphocytes (test code = Lymphocytes) 13.3 20.0-40.0 [place] 439852-10-16 09:37:00 Test Item Value Reference Range Interpretation Comments Monocytes (test code = Monocytes) 5.7 2.0-12.0 [facility] CenterHrvhksxYKVILVSYWK3071-04-40 09:37:00 Test Item Value Reference Range Interpretation Comments Eosinophils (test code = 3.7 See_Comment [A utomated message] The Eosinophils) system which ge nerated this result tra nsmitted reference range : <=4.0. The reference r quynh was not used to int erpret this result as normal/abnormal . [facility] CenterCoahuacYRXIIXEMAG0657-15-03 09:37:00 Test Item Value Reference Range Interpretation Comments Basophils (test code = 0.9 See_Comment [Aut omated message] The Basophils) system which ge nerated this result tra nsmitted reference range : <=1.0. The reference r quynh was not used to int erpret this result as normal/abnormal . [facility] CenterBbejjryIZIWYYDEBX1791-50-97 09:37:00 Test Item Value Reference Range Interpretation Comments Neutrophils # (test code = Neutrophils 12.0 1.5-8.1 #) [facility] CenterLhxqyhkPFDZVQUKNG5682-32-48 09:37:00 Test Item Value Reference Range Interpretation Comments Lymphocytes # (test code = Lymphocytes 2.1 1.0-5.5 #) [place] 439852-10-16 09:37:00 Test Item Value Reference Range Interpretation Comments Monocytes # (test code 0.9 See_Comment [Aut omated message] The = Monocytes #) system which generated this result tra nsmitted reference range : <=0.8. The reference r quynh was not used to int erpret this result as normal/abnormal . [place] 439852-10-16 09:37:00 Test Item Value Reference Range Interpretation Comments Eosinophils # (test code 0.6 See_Comment [A utomated message] The = Eosinophils #) system whic h generated this result tra nsmitted reference range : <=0.5. The reference r quynh was not used to int erpret this result as normal/abnormal . [facility] CenterNzqqjkvYHHXNNXZXS7391-47-36 09:37:00 Test Item Value Reference Range Interpretation Comments Basophils # (test code 0.1 See_Comment [Aut omated message] The = Basophils #) system which generated this result tra nsmitted reference range : <=0.2. The reference r quynh was not used to int erpret this result as normal/abnormal . [facility]Immun[facility] SSCYE4329-04-07 09:37:00 Test Item Value Reference Range Interpretation Comments Procalcitonin Lvl (test no gt See_Comment [Au tomated message] code = Procalcitonin Lvl) Th e system which generated this result transmitted ref erence range: <=0.10. The reference range was not used to interpr et this result as normal/abnormal . [facility]2022-10-16 09:37:00 Test Item Value Reference Range Interpretation Comments Glucose Lvl (test code = Glucose Lvl) 103 70-99 [place] [address]-10-16 09:37:00 Test Item Value Reference Range Interpretation Comments BUN (test code = BUN) 13 7-22 [place] [address]-10-16 09:37:00 Test Item Value Reference Range Interpretation Comments Creatinine Lvl (test code = Creatinine 0.67 0.50-1.40 Lvl) [place] 786342-10-16 09:37:00 Test Item Value Reference Range Interpretation Comments Sodium Lvl (test code = Sodium Lvl) 138 135-145 [place] [address]-10-16 09:37:00 Test Item Value Reference Range Interpretation Comments Potassium Lvl (test code = Potassium 3.7 3.5-5.1 Lvl) [place] 786342-10-16 09:37:00 Test Item Value Reference Range Interpretation Comments Chloride Lvl (test code = Chloride Lvl) 98 95-109 [facility]Immun[facility] [id number] 09:37:00 Test Item Value Reference Range Interpretation Comments CO2 (test code = CO2) 32 24-32 [facility] BKSHB9004-97-85 09:37:00 Test Item Value Reference Range Interpretation Comments Calcium Lvl (test code = Calcium Lvl) 9.3 8.5-10.5 [facility] IOGRF5861-76-10 09:37:00 Test Item Value Reference Range Interpretation Comments Total Protein (test code = Total 7.5 6.4-8.4 Protein) [facility] [id number] 09:37:00 Test Item Value Reference Range Interpretation Comments Albumin Lvl (test code = Albumin Lvl) 3.0 3.5-5.0 [facility] [id number] 09:37:00 Test Item Value Reference Range Interpretation Comments ALT (test code = ALT) 18 See_Comment [Auto mated message] The system which ge nerated this result transmit fabiano reference range : <=65. The reference range was not used to interpr et this result as aleks l/abnormal. [facility] BFLCL6548-01-98 09:37:00 Test Item Value Reference Range Interpretation Comments AST (test code = AST) 6 See_Comment [Auto mated message] The system which ge nerated this result transmit fabiano reference range : <=37. The reference range was not used to interpr et this result as aleks l/abnormal. [facility] [employer] [id number] 09:37:00 Test Item Value Reference Range Interpretation Comments Alk Phos (test code = Alk Phos) 118 39-136 [facility] [employer] [id number] 09:37:00 Test Item Value Reference Range Interpretation Comments Bili Total (test code = Bili Total) 0.4 0.2-1.3 [facility] [employer] [id number] 09:37:00 Test Item Value Reference Range Interpretation Comments AGAP (test code = AGAP) 11.7 10.0-20.0 [facility] [employer] [id number] 09:37:00 Test Item Value Reference Range Interpretation Comments B/C Ratio (test code = B/C Ratio) 19 1 6-25 [facility] [id number] 09:37:00 Test Item Value Reference Range Interpretation Comments Globulin (test code = Globulin) 4.5 2.7-4.2 [facility] [employer] [id number] 09:37:00 Test Item Value Reference Range Interpretation Comments A/G Ratio (test code = A/G Ratio) 0.7 1 0.7-1.6 [place] [address]-10-16 09:37:00 Test Item Value Reference Range Interpretation Comments eGFR (test code = eGFR) 105 [place] 786342-10-16 09:37:00 Test Item Value Reference Range Interpretation Comments Phosphorus (test code = Phosphorus) 3.7 2.5-4.5 [place] 786342-10-16 09:37:00 Test Item Value Reference Range Interpretation Comments Magnesium Lvl (test code = Magnesium 2.1 1.8-2.4 Lvl) [place] 675862-10-16 09:37:00 Test Item Value Reference Range Interpretation Comments Procalcitonin Lvl (test no gt See_Comment [Au tomated message] code = Procalcitonin Lvl) Th e system which generated this result transmitted ref erence range: <=0.10. The reference range was not used to interpr et this result as normal/abnormal . [place] 439852-10-16 09:37:00 Test Item Value Reference Range Interpretation Comments WBC (test code = WBC) 15.7 3.7-10.4 [place] [address]-10-16 09:37:00 Test Item Value Reference Range Interpretation Comments RBC (test code = RBC) 4.10 4.20-5.40 [place] [address]-10-16 09:37:00 Test Item Value Reference Range Interpretation Comments Hgb (test code = Hgb) 10.7 12.0-16.0 [place] [address]-10-16 09:37:00 Test Item Value Reference Range Interpretation Comments Hct (test code = Hct) 32.8 36.0-48.0 [place] [address]-10-16 09:37:00 Test Item Value Reference Range Interpretation Comments MCV (test code = MCV) 80.0 80.0-98.0 [place] [address]-10-16 09:37:00 Test Item Value Reference Range Interpretation Comments MCH (test code = MCH) 26.1 pg 27.0-31.0 [place] [address]-10-16 09:37:00 Test Item Value Reference Range Interpretation Comments MCHC (test code = MCHC) 32.6 32.0-36.0 [place] 439852-10-16 09:37:00 Test Item Value Reference Range Interpretation Comments RDW (test code = RDW) 16.4 11.5-14.5 [place] 439852-10-16 09:37:00 Test Item Value Reference Range Interpretation Comments Platelet (test code = Platelet) 362 133-450 [facility] CenterDccqgscVWFSEPCMID4875-40-70 09:37:00 Test Item Value Reference Range Interpretation Comments MPV (test code = MPV) 8.1 7.4-10.4 [place] 439852-10-16 09:37:00 Test Item Value Reference Range Interpretation Comments Segs (test code = Segs) 76.4 45.0-75.0 [place] 439852-10-16 09:37:00 Test Item Value Reference Range Interpretation Comments Lymphocytes (test code = Lymphocytes) 13.3 20.0-40.0 [facility] CenterAkjogsoNQFNBTFNDM7998-40-69 09:37:00 Test Item Value Reference Range Interpretation Comments Monocytes (test code = Monocytes) 5.7 2.0-12.0 [place] 439852-10-16 09:37:00 Test Item Value Reference Range Interpretation Comments Eosinophils (test code = 3.7 See_Comment [A utomated message] The Eosinophils) system which ge nerated this result tra nsmitted reference range : <=4.0. The reference r quynh was not used to int erpret this result as normal/abnormal . [facility] CenterQyobcbmDPPJVNOCLF0752-87-27 09:37:00 Test Item Value Reference Range Interpretation Comments Basophils (test code = 0.9 See_Comment [Aut omated message] The Basophils) system which ge nerated this result tra nsmitted reference range : <=1.0. The reference r quynh was not used to int erpret this result as normal/abnormal . [place] 439852-10-16 09:37:00 Test Item Value Reference Range Interpretation Comments Neutrophils # (test code = Neutrophils 12.0 1.5-8.1 #) [place] 439852-10-16 09:37:00 Test Item Value Reference Range Interpretation Comments Lymphocytes # (test code = Lymphocytes 2.1 1.0-5.5 #) [place] [address]-10-16 09:37:00 Test Item Value Reference Range Interpretation Comments Monocytes # (test code 0.9 See_Comment [Aut omated message] The = Monocytes #) system which generated this result tra nsmitted reference range : <=0.8. The reference r quynh was not used to int erpret this result as normal/abnormal . [place] 439852-10-16 09:37:00 Test Item Value Reference Range Interpretation Comments Eosinophils # (test code 0.6 See_Comment [A utomated message] The = Eosinophils #) system whic h generated this result tra nsmitted reference range : <=0.5. The reference r quynh was not used to int erpret this result as normal/abnormal . [place] [address]-10-16 09:37:00 Test Item Value Reference Range Interpretation Comments Basophils # (test code 0.1 See_Comment [Aut omated message] The = Basophils #) system which generated this result tra nsmitted reference range : <=0.2. The reference r quynh was not used to int erpret this result as normal/abnormal . [facility] [id number] 09:37:00 Test Item Value Reference Range Interpretation Comments Procalcitonin Lvl (test no gt See_Comment [Au tomated message] code = Procalcitonin Lvl) Th e system which generated this result transmitted ref erence range: <=0.10. The reference range was not used to interpr et this result as normal/abnormal . [facility] [id number] 09:37:00 Test Item Value Reference Range Interpretation Comments Glucose Lvl (test code = Glucose Lvl) 103 70-99 [facility] [id number] 09:37:00 Test Item Value Reference Range Interpretation Comments BUN (test code = BUN) 13 7-22 [facility] [id number] 09:37:00 Test Item Value Reference Range Interpretation Comments Creatinine Lvl (test code = Creatinine 0.67 0.50-1.40 Lvl) [place] 786342-10-16 09:37:00 Test Item Value Reference Range Interpretation Comments Sodium Lvl (test code = Sodium Lvl) 138 135-145 [place] 786342-10-16 09:37:00 Test Item Value Reference Range Interpretation Comments Potassium Lvl (test code = Potassium 3.7 3.5-5.1 Lvl) [address]10-16 09:37:00 Test Item Value Reference Range Interpretation Comments Chloride Lvl (test code = Chloride Lvl) 98 95-109 [place] [address]-10-16 09:37:00 Test Item Value Reference Range Interpretation Comments CO2 (test code = CO2) 32 24-32 [place] [address]-10-16 09:37:00 Test Item Value Reference Range Interpretation Comments Calcium Lvl (test code = Calcium Lvl) 9.3 8.5-10.5 [address]10-16 09:37:00 Test Item Value Reference Range Interpretation Comments Total Protein (test code = Total 7.5 6.4-8.4 Protein) [address]10-16 09:37:00 Test Item Value Reference Range Interpretation Comments Albumin Lvl (test code = Albumin Lvl) 3.0 3.5-5.0 [address]10-16 09:37:00 Test Item Value Reference Range Interpretation Comments ALT (test code = ALT) 18 See_Comment [Auto mated message] The system which ge nerated this result transmit fabiano reference range : <=65. The reference range was not used to interpr et this result as aleks l/abnormal. [address]10-16 09:37:00 Test Item Value Reference Range Interpretation Comments AST (test code = AST) 6 See_Comment [Auto mated message] The system which ge nerated this result transmit fabiano reference range : <=37. The reference range was not used to interpr et this result as aleks l/abnormal. [place] [address]-10-16 09:37:00 Test Item Value Reference Range Interpretation Comments Alk Phos (test code = Alk Phos) 118 39-136 [place] [address]-10-16 09:37:00 Test Item Value Reference Range Interpretation Comments Bili Total (test code = Bili Total) 0.4 0.2-1.3 [address]10-16 09:37:00 Test Item Value Reference Range Interpretation Comments AGAP (test code = AGAP) 11.7 10.0-20.0 [place] [address]-10-16 09:37:00 Test Item Value Reference Range Interpretation Comments B/C Ratio (test code = B/C Ratio) 19 1 6-25 [place] [address]-10-16 09:37:00 Test Item Value Reference Range Interpretation Comments Globulin (test code = Globulin) 4.5 2.7-4.2 [place] [address]-10-16 09:37:00 Test Item Value Reference Range Interpretation Comments A/G Ratio (test code = A/G Ratio) 0.7 1 0.7-1.6 [place] [address]-10-16 09:37:00 Test Item Value Reference Range Interpretation Comments eGFR (test code = eGFR) 105 [place] 786342-10-16 09:37:00 Test Item Value Reference Range Interpretation Comments Phosphorus (test code = Phosphorus) 3.7 2.5-4.5 [place] 786342-10-16 09:37:00 Test Item Value Reference Range Interpretation Comments Magnesium Lvl (test code = Magnesium 2.1 1.8-2.4 Lvl) [place] [address]-10-16 09:37:00 Test Item Value Reference Range Interpretation Comments Procalcitonin Lvl (test no gt See_Comment [Au tomated message] code = Procalcitonin Lvl) e system which generated this result transmitted ref erence range: <=0.10. The reference range was not used to interpr et this result as normal/abnormal . [place] 439852-10-16 09:37:00 Test Item Value Reference Range Interpretation Comments WBC (test code = WBC) 15.7 3.7-10.4 [place] [address]-10-16 09:37:00 Test Item Value Reference Range Interpretation Comments RBC (test code = RBC) 4.10 4.20-5.40 [place] [address]-10-16 09:37:00 Test Item Value Reference Range Interpretation Comments Hgb (test code = Hgb) 10.7 12.0-16.0 [place] [address]-10-16 09:37:00 Test Item Value Reference Range Interpretation Comments Hct (test code = Hct) 32.8 36.0-48.0 [place] 439852-10-16 09:37:00 Test Item Value Reference Range Interpretation Comments MCV (test code = MCV) 80.0 80.0-98.0 [facility] CenterBcrxyxsTSSLDWWBPD5235-06-72 09:37:00 Test Item Value Reference Range Interpretation Comments MCH (test code = MCH) 26.1 pg 27.0-31.0 [facility] CenterKvyjzirUNJVSYPKME4010-92-76 09:37:00 Test Item Value Reference Range Interpretation Comments MCHC (test code = MCHC) 32.6 32.0-36.0 [facility] CenterHgvsbhbJLBYFGMPVU1519-80-90 09:37:00 Test Item Value Reference Range Interpretation Comments RDW (test code = RDW) 16.4 11.5-14.5 [place] 439852-10-16 09:37:00 Test Item Value Reference Range Interpretation Comments Platelet (test code = Platelet) 362 133-450 [facility] CenterRrifparXYTJCLLOXN2821-00-46 09:37:00 Test Item Value Reference Range Interpretation Comments MPV (test code = MPV) 8.1 7.4-10.4 [facility] CenterUwlhtimBPAONKLBGM0508-20-27 09:37:00 Test Item Value Reference Range Interpretation Comments Segs (test code = Segs) 76.4 45.0-75.0 [facility] CenterPidqekcJYGHQJGMRC8469-14-09 09:37:00 Test Item Value Reference Range Interpretation Comments Lymphocytes (test code = Lymphocytes) 13.3 20.0-40.0 [facility] CenterXsrbptmAVWDVTVZJM8279-82-20 09:37:00 Test Item Value Reference Range Interpretation Comments Monocytes (test code = Monocytes) 5.7 2.0-12.0 [place] 439852-10-16 09:37:00 Test Item Value Reference Range Interpretation Comments Eosinophils (test code = 3.7 See_Comment [A utomated message] The Eosinophils) system which ge nerated this result tra nsmitted reference range : <=4.0. The reference r quynh was not used to int erpret this result as normal/abnormal . [place] 439852-10-16 09:37:00 Test Item Value Reference Range Interpretation Comments Basophils (test code = 0.9 See_Comment [Aut omated message] The Basophils) system which ge nerated this result tra nsmitted reference range : <=1.0. The reference r quynh was not used to int erpret this result as normal/abnormal . [place] [address]-10-16 09:37:00 Test Item Value Reference Range Interpretation Comments Neutrophils # (test code = Neutrophils 12.0 1.5-8.1 #) [place] 439852-10-16 09:37:00 Test Item Value Reference Range Interpretation Comments Lymphocytes # (test code = Lymphocytes 2.1 1.0-5.5 #) [place] [address]-10-16 09:37:00 Test Item Value Reference Range Interpretation Comments Monocytes # (test code 0.9 See_Comment [Aut omated message] The = Monocytes #) system which generated this result tra nsmitted reference range : <=0.8. The reference r quynh was not used to int erpret this result as normal/abnormal . [place] [address]-10-16 09:37:00 Test Item Value Reference Range Interpretation Comments Eosinophils # (test code 0.6 See_Comment [A utomated message] The = Eosinophils #) system whic h generated this result tra nsmitted reference range : <=0.5. The reference r quynh was not used to int erpret this result as normal/abnormal . [place] [address]-10-16 09:37:00 Test Item Value Reference Range Interpretation Comments Basophils # (test code 0.1 See_Comment [Aut omated message] The = Basophils #) system which generated this result tra nsmitted reference range : <=0.2. The reference r quynh was not used to int erpret this result as normal/abnormal . [facility] [id number] 09:37:00 Test Item Value Reference Range Interpretation Comments Procalcitonin Lvl (test no gt See_Comment [Au tomated message] code = Procalcitonin Lvl) Th e system which generated this result transmitted ref erence range: <=0.10. The reference range was not used to interpr et this result as normal/abnormal . [place] 786342-10-16 09:37:00 Test Item Value Reference Range Interpretation Comments Glucose Lvl (test code = Glucose Lvl) 103 70-99 [place] [address]-10-16 09:37:00 Test Item Value Reference Range Interpretation Comments BUN (test code = BUN) 13 7-22 [place] [address]-10-16 09:37:00 Test Item Value Reference Range Interpretation Comments Creatinine Lvl (test code = Creatinine 0.67 0.50-1.40 Lvl) [place] [address]-10-16 09:37:00 Test Item Value Reference Range Interpretation Comments Sodium Lvl (test code = Sodium Lvl) 138 135-145 [place] [address]-10-16 09:37:00 Test Item Value Reference Range Interpretation Comments Potassium Lvl (test code = Potassium 3.7 3.5-5.1 Lvl) [place] [address]-10-16 09:37:00 Test Item Value Reference Range Interpretation Comments Chloride Lvl (test code = Chloride Lvl) 98 95-109 [place] [address]-10-16 09:37:00 Test Item Value Reference Range Interpretation Comments CO2 (test code = CO2) 32 24-32 [place] [address]-10-16 09:37:00 Test Item Value Reference Range Interpretation Comments Calcium Lvl (test code = Calcium Lvl) 9.3 8.5-10.5 [place] [address]-10-16 09:37:00 Test Item Value Reference Range Interpretation Comments Total Protein (test code = Total 7.5 6.4-8.4 Protein) [address]10-16 09:37:00 Test Item Value Reference Range Interpretation Comments Albumin Lvl (test code = Albumin Lvl) 3.0 3.5-5.0 [place] [address]-10-16 09:37:00 Test Item Value Reference Range Interpretation Comments ALT (test code = ALT) 18 See_Comment [Auto mated message] The system which ge nerated this result transmit fabiano reference range : <=65. The reference range was not used to interpr et this result as aleks l/abnormal. [place] [address]-10-16 09:37:00 Test Item Value Reference Range Interpretation Comments AST (test code = AST) 6 See_Comment [Auto mated message] The system which ge nerated this result transmit fabiano reference range : <=37. The reference range was not used to interpr et this result as aleks l/abnormal. [facility] [id number] 09:37:00 Test Item Value Reference Range Interpretation Comments Alk Phos (test code = Alk Phos) 118 39-136 [place] 786342-10-16 09:37:00 Test Item Value Reference Range Interpretation Comments Bili Total (test code = Bili Total) 0.4 0.2-1.3 [place] 786342-10-16 09:37:00 Test Item Value Reference Range Interpretation Comments AGAP (test code = AGAP) 11.7 10.0-20.0 [place] [address]-10-16 09:37:00 Test Item Value Reference Range Interpretation Comments B/C Ratio (test code = B/C Ratio) 19 1 6-25 [place] 786342-10-16 09:37:00 Test Item Value Reference Range Interpretation Comments Globulin (test code = Globulin) 4.5 2.7-4.2 [facility]2022-10-16 09:37:00 Test Item Value Reference Range Interpretation Comments A/G Ratio (test code = A/G Ratio) 0.7 1 0.7-1.6 [place] [address]-10-16 09:37:00 Test Item Value Reference Range Interpretation Comments eGFR (test code = eGFR) 105 [facility]2022-10-16 09:37:00 Test Item Value Reference Range Interpretation Comments Phosphorus (test code = Phosphorus) 3.7 2.5-4.5 [place] 786342-10-16 09:37:00 Test Item Value Reference Range Interpretation Comments Magnesium Lvl (test code = Magnesium 2.1 1.8-2.4 Lvl) [place] 675862-10-16 09:37:00 Test Item Value Reference Range Interpretation Comments Procalcitonin Lvl (test no gt See_Comment [Au tomated message] code = Procalcitonin Lvl) Th e system which generated this result transmitted ref erence range: <=0.10. The reference range was not used to interpr et this result as normal/abnormal . [facility] 09:37:00 Test Item Value Reference Range Interpretation Comments WBC (test code = WBC) 15.7 3.7-10.4 [place] [address]-10-16 09:37:00 Test Item Value Reference Range Interpretation Comments RBC (test code = RBC) 4.10 4.20-5.40 [place] 439852-10-16 09:37:00 Test Item Value Reference Range Interpretation Comments Hgb (test code = Hgb) 10.7 12.0-16.0 [place] 439852-10-16 09:37:00 Test Item Value Reference Range Interpretation Comments Hct (test code = Hct) 32.8 36.0-48.0 [place] 439852-10-16 09:37:00 Test Item Value Reference Range Interpretation Comments MCV (test code = MCV) 80.0 80.0-98.0 [id number] 09:37:00 Test Item Value Reference Range Interpretation Comments MCH (test code = MCH) 26.1 pg 27.0-31.0 [facility] CenterXowdbtmYUNLWLLRWE5578-00-14 09:37:00 Test Item Value Reference Range Interpretation Comments MCHC (test code = MCHC) 32.6 32.0-36.0 [place] [address]-10-16 09:37:00 Test Item Value Reference Range Interpretation Comments RDW (test code = RDW) 16.4 11.5-14.5 [facility] CenterTxjkqabRZLVRHFRPB4655-34-06 09:37:00 Test Item Value Reference Range Interpretation Comments Platelet (test code = Platelet) 362 133-450 [facility] CenterRfpnzrwIIBHQXKDVO1581-63-61 09:37:00 Test Item Value Reference Range Interpretation Comments MPV (test code = MPV) 8.1 7.4-10.4 [place] [address]-10-16 09:37:00 Test Item Value Reference Range Interpretation Comments Segs (test code = Segs) 76.4 45.0-75.0 [place] [address]-10-16 09:37:00 Test Item Value Reference Range Interpretation Comments Lymphocytes (test code = Lymphocytes) 13.3 20.0-40.0 [place] [address]-10-16 09:37:00 Test Item Value Reference Range Interpretation Comments Monocytes (test code = Monocytes) 5.7 2.0-12.0 [place] [address]-10-16 09:37:00 Test Item Value Reference Range Interpretation Comments Eosinophils (test code = 3.7 See_Comment [A utomated message] The Eosinophils) system which ge nerated this result tra nsmitted reference range : <=4.0. The reference r quynh was not used to int erpret this result as normal/abnormal . [place] 439852-10-16 09:37:00 Test Item Value Reference Range Interpretation Comments Basophils (test code = 0.9 See_Comment [Aut omated message] The Basophils) system which ge nerated this result tra nsmitted reference range : <=1.0. The reference r quynh was not used to int erpret this result as normal/abnormal . [place] 439852-10-16 09:37:00 Test Item Value Reference Range Interpretation Comments Neutrophils # (test code = Neutrophils 12.0 1.5-8.1 #) [place] 439852-10-16 09:37:00 Test Item Value Reference Range Interpretation Comments Lymphocytes # (test code = Lymphocytes 2.1 1.0-5.5 #) [place] [address]-10-16 09:37:00 Test Item Value Reference Range Interpretation Comments Monocytes # (test code 0.9 See_Comment [Aut omated message] The = Monocytes #) system which generated this result tra nsmitted reference range : <=0.8. The reference r quynh was not used to int erpret this result as normal/abnormal . [facility] CenterFzcnwiwSOFVAVIQIQ3746-83-18 09:37:00 Test Item Value Reference Range Interpretation Comments Eosinophils # (test code 0.6 See_Comment [A utomated message] The = Eosinophils #) system whic h generated this result tra nsmitted reference range : <=0.5. The reference r quynh was not used to int erpret this result as normal/abnormal . [place] [address]-10-16 09:37:00 Test Item Value Reference Range Interpretation Comments Basophils # (test code 0.1 See_Comment [Aut omated message] The = Basophils #) system which generated this result tra nsmitted reference range : <=0.2. The reference r quynh was not used to int erpret this result as normal/abnormal . [facility]2022-10-16 09:37:00 Test Item Value Reference Range Interpretation Comments Procalcitonin Lvl (test no gt See_Comment [Au tomated message] code = Procalcitonin Lvl) Th e system which generated this result transmitted ref erence range: <=0.10. The reference range was not used to interpr et this result as normal/abnormal . [facility] [id number] 09:37:00 Test Item Value Reference Range Interpretation Comments Glucose Lvl (test code = Glucose Lvl) 103 70-99 [facility] [id number] 09:37:00 Test Item Value Reference Range Interpretation Comments BUN (test code = BUN) 13 7-22 [facility] [id number] 09:37:00 Test Item Value Reference Range Interpretation Comments Creatinine Lvl (test code = Creatinine 0.67 0.50-1.40 Lvl) [facility]2022-10-16 09:37:00 Test Item Value Reference Range Interpretation Comments Sodium Lvl (test code = Sodium Lvl) 138 135-145 [facility] [id number] 09:37:00 Test Item Value Reference Range Interpretation Comments Potassium Lvl (test code = Potassium 3.7 3.5-5.1 Lvl) [facility] [id number] 09:37:00 Test Item Value Reference Range Interpretation Comments Chloride Lvl (test code = Chloride Lvl) 98 95-109 [facility] [id number] 09:37:00 Test Item Value Reference Range Interpretation Comments CO2 (test code = CO2) 32 24-32 [facility] [id number] 09:37:00 Test Item Value Reference Range Interpretation Comments Calcium Lvl (test code = Calcium Lvl) 9.3 8.5-10.5 [facility] [id number] 09:37:00 Test Item Value Reference Range Interpretation Comments Total Protein (test code = Total 7.5 6.4-8.4 Protein) [facility] [id number] 09:37:00 Test Item Value Reference Range Interpretation Comments Albumin Lvl (test code = Albumin Lvl) 3.0 3.5-5.0 [facility] [id number] 09:37:00 Test Item Value Reference Range Interpretation Comments ALT (test code = ALT) 18 See_Comment [Auto mated message] The system which ge nerated this result transmit fabiano reference range : <=65. The reference range was not used to interpr et this result as aleks l/abnormal. [facility] [employer] [id number] 09:37:00 Test Item Value Reference Range Interpretation Comments AST (test code = AST) 6 See_Comment [Auto mated message] The system which ge nerated this result transmit fabiano reference range : <=37. The reference range was not used to interpr et this result as aleks l/abnormal. [facility] [employer] [id number] 09:37:00 Test Item Value Reference Range Interpretation Comments Alk Phos (test code = Alk Phos) 118 39-136 [facility] [employer] [id number] 09:37:00 Test Item Value Reference Range Interpretation Comments Bili Total (test code = Bili Total) 0.4 0.2-1.3 [facility] [employer] [id number] 09:37:00 Test Item Value Reference Range Interpretation Comments AGAP (test code = AGAP) 11.7 10.0-20.0 [facility] [employer] [id number] 09:37:00 Test Item Value Reference Range Interpretation Comments B/C Ratio (test code = B/C Ratio) 19 1 6-25 [facility] [employer] [id number] 09:37:00 Test Item Value Reference Range Interpretation Comments Globulin (test code = Globulin) 4.5 2.7-4.2 [facility] [employer] [id number] 09:37:00 Test Item Value Reference Range Interpretation Comments A/G Ratio (test code = A/G Ratio) 0.7 1 0.7-1.6 [facility] [employer] [id number] 09:37:00 Test Item Value Reference Range Interpretation Comments eGFR (test code = eGFR) 105 [facility] [employer] [id number] 09:37:00 Test Item Value Reference Range Interpretation Comments Phosphorus (test code = Phosphorus) 3.7 2.5-4.5 [facility] [id number] 09:37:00 Test Item Value Reference Range Interpretation Comments Magnesium Lvl (test code = Magnesium 2.1 1.8-2.4 Lvl) [facility] HospitalRanalxcSLELOYQMF7266-08-87 09:37:00 Test Item Value Reference Range Interpretation Comments Procalcitonin Lvl (test no gt See_Comment [Au tomated message] code = Procalcitonin Lvl) Th e system which generated this result transmitted ref erence range: <=0.10. The reference range was not used to interpr et this result as normal/abnormal . [facility] CenterDburqgdONGCUFTNAJ6431-10-63 09:37:00 Test Item Value Reference Range Interpretation Comments WBC (test code = WBC) 15.7 3.7-10.4 [facility] [id number] 09:37:00 Test Item Value Reference Range Interpretation Comments RBC (test code = RBC) 4.10 4.20-5.40 [facility] CenterWctihtfNKZCZXFAFA2681-17-42 09:37:00 Test Item Value Reference Range Interpretation Comments Hgb (test code = Hgb) 10.7 12.0-16.0 [facility] CenterTnactxdOZCUXFKMUH0723-92-90 09:37:00 Test Item Value Reference Range Interpretation Comments Hct (test code = Hct) 32.8 36.0-48.0 [facility] CenterRtywxylJVLSQTJJJI1618-97-51 09:37:00 Test Item Value Reference Range Interpretation Comments MCV (test code = MCV) 80.0 80.0-98.0 [facility] CenterExswhqkXWWPHHBANS4129-98-30 09:37:00 Test Item Value Reference Range Interpretation Comments MCH (test code = MCH) 26.1 pg 27.0-31.0 [facility] CenterSbxfhuyCCZSCAXOIH6896-88-25 09:37:00 Test Item Value Reference Range Interpretation Comments MCHC (test code = MCHC) 32.6 32.0-36.0 [facility] CenterAvbqbhwRBWGHKCJPO4305-37-63 09:37:00 Test Item Value Reference Range Interpretation Comments RDW (test code = RDW) 16.4 11.5-14.5 [facility] C[id number] 09:37:00 Test Item Value Reference Range Interpretation Comments Platelet (test code = Platelet) 362 133-450 [facility] CenterIqqvowcHZHUQURBQD8597-35-15 09:37:00 Test Item Value Reference Range Interpretation Comments MPV (test code = MPV) 8.1 7.4-10.4 [facility] [id number] 09:37:00 Test Item Value Reference Range Interpretation Comments Segs (test code = Segs) 76.4 45.0-75.0 [address]10-16 09:37:00 Test Item Value Reference Range Interpretation Comments Lymphocytes (test code = Lymphocytes) 13.3 20.0-40.0 [address]10-16 09:37:00 Test Item Value Reference Range Interpretation Comments Monocytes (test code = Monocytes) 5.7 2.0-12.0 [place] [address]-10-16 09:37:00 Test Item Value Reference Range Interpretation Comments Eosinophils (test code = 3.7 See_Comment [A utomated message] The Eosinophils) system which ge nerated this result tra nsmitted reference range : <=4.0. The reference r quynh was not used to int erpret this result as normal/abnormal . [address]10-16 09:37:00 Test Item Value Reference Range Interpretation Comments Basophils (test code = 0.9 See_Comment [Aut omated message] The Basophils) system which ge nerated this result tra nsmitted reference range : <=1.0. The reference r quynh was not used to int erpret this result as normal/abnormal . [place] [address]-10-16 09:37:00 Test Item Value Reference Range Interpretation Comments Neutrophils # (test code = Neutrophils 12.0 1.5-8.1 #) [address]10-16 09:37:00 Test Item Value Reference Range Interpretation Comments Lymphocytes # (test code = Lymphocytes 2.1 1.0-5.5 #) [address]10-16 09:37:00 Test Item Value Reference Range Interpretation Comments Monocytes # (test code 0.9 See_Comment [Aut omated message] The = Monocytes #) system which generated this result tra nsmitted reference range : <=0.8. The reference r quynh was not used to int erpret this result as normal/abnormal . [place] [address]-10-16 09:37:00 Test Item Value Reference Range Interpretation Comments Eosinophils # (test code 0.6 See_Comment [A utomated message] The = Eosinophils #) system ic h generated this result tra nsmitted reference range : <=0.5. The reference r quynh was not used to int erpret this result as normal/abnormal . [facility] CenterVetrwhsDAJCEEAHNA3092-43-34 09:37:00 Test Item Value Reference Range Interpretation Comments Basophils # (test code 0.1 See_Comment [Aut omated message] The = Basophils #) system which generated this result tra nsmitted reference range : <=0.2. The reference r quynh was not used to int erpret this result as normal/abnormal . [place] 786342-10-16 09:37:00 Test Item Value Reference Range Interpretation Comments Procalcitonin Lvl (test no gt See_Comment [Au tomated message] code = Procalcitonin Lvl) Th e system which generated this result transmitted ref erence range: <=0.10. The reference range was not used to interpr et this result as normal/abnormal . [place] 786342-10-16 09:37:00 Test Item Value Reference Range Interpretation Comments Glucose Lvl (test code = Glucose Lvl) 103 70-99 [place] 786342-10-16 09:37:00 Test Item Value Reference Range Interpretation Comments BUN (test code = BUN) 13 7-22 [place] [address]-10-16 09:37:00 Test Item Value Reference Range Interpretation Comments Creatinine Lvl (test code = Creatinine 0.67 0.50-1.40 Lvl) [place] 786342-10-16 09:37:00 Test Item Value Reference Range Interpretation Comments Sodium Lvl (test code = Sodium Lvl) 138 135-145 [place] 786342-10-16 09:37:00 Test Item Value Reference Range Interpretation Comments Potassium Lvl (test code = Potassium 3.7 3.5-5.1 Lvl) [place] [address]-10-16 09:37:00 Test Item Value Reference Range Interpretation Comments Chloride Lvl (test code = Chloride Lvl) 98 95-109 [place] 786342-10-16 09:37:00 Test Item Value Reference Range Interpretation Comments CO2 (test code = CO2) 32 24-32 [place] 786342-10-16 09:37:00 Test Item Value Reference Range Interpretation Comments Calcium Lvl (test code = Calcium Lvl) 9.3 8.5-10.5 [place] [address]-10-16 09:37:00 Test Item Value Reference Range Interpretation Comments Total Protein (test code = Total 7.5 6.4-8.4 Protein) [facility] [id number] 09:37:00 Test Item Value Reference Range Interpretation Comments Albumin Lvl (test code = Albumin Lvl) 3.0 3.5-5.0 [facility] [id number] 09:37:00 Test Item Value Reference Range Interpretation Comments ALT (test code = ALT) 18 See_Comment [Auto mated message] The system which ge nerated this result transmit fabiano reference range : <=65. The reference range was not used to interpr et this result as aleks l/abnormal. [facility] [employer] [id number] 09:37:00 Test Item Value Reference Range Interpretation Comments AST (test code = AST) 6 See_Comment [Auto mated message] The system which ge nerated this result transmit fabiano reference range : <=37. The reference range was not used to interpr et this result as aleks l/abnormal. [facility] [employer] [id number] 09:37:00 Test Item Value Reference Range Interpretation Comments Alk Phos (test code = Alk Phos) 118 39-136 [facility] [employer] [id number] 09:37:00 Test Item Value Reference Range Interpretation Comments Bili Total (test code = Bili Total) 0.4 0.2-1.3 [facility] [employer] [id number] 09:37:00 Test Item Value Reference Range Interpretation Comments AGAP (test code = AGAP) 11.7 10.0-20.0 [facility] [employer] [id number] 09:37:00 Test Item Value Reference Range Interpretation Comments B/C Ratio (test code = B/C Ratio) 19 1 6-25 [facility] [employer] [id number] 09:37:00 Test Item Value Reference Range Interpretation Comments Globulin (test code = Globulin) 4.5 2.7-4.2 [facility] [employer] [id number] 09:37:00 Test Item Value Reference Range Interpretation Comments A/G Ratio (test code = A/G Ratio) 0.7 1 0.7-1.6 [facility] [employer] [id number] 09:37:00 Test Item Value Reference Range Interpretation Comments eGFR (test code = eGFR) 105 [facility] [id number] 09:37:00 Test Item Value Reference Range Interpretation Comments Phosphorus (test code = Phosphorus) 3.7 2.5-4.5 [facility] [id number] 09:37:00 Test Item Value Reference Range Interpretation Comments Magnesium Lvl (test code = Magnesium 2.1 1.8-2.4 Lvl) [place] 675862-10-16 09:37:00 Test Item Value Reference Range Interpretation Comments Procalcitonin Lvl (test no gt See_Comment [Au tomated message] code = Procalcitonin Lvl) Th e system which generated this result transmitted ref erence range: <=0.10. The reference range was not used to interpr et this result as normal/abnormal . [place] [address]-10-16 09:37:00 Test Item Value Reference Range Interpretation Comments WBC (test code = WBC) 15.7 3.7-10.4 [place] 439852-10-16 09:37:00 Test Item Value Reference Range Interpretation Comments RBC (test code = RBC) 4.10 4.20-5.40 [place] [address]-10-16 09:37:00 Test Item Value Reference Range Interpretation Comments Hgb (test code = Hgb) 10.7 12.0-16.0 [place] [address]-10-16 09:37:00 Test Item Value Reference Range Interpretation Comments Hct (test code = Hct) 32.8 36.0-48.0 [place] [address]-10-16 09:37:00 Test Item Value Reference Range Interpretation Comments MCV (test code = MCV) 80.0 80.0-98.0 [place] [address]-10-16 09:37:00 Test Item Value Reference Range Interpretation Comments MCH (test code = MCH) 26.1 pg 27.0-31.0 [place] 439852-10-16 09:37:00 Test Item Value Reference Range Interpretation Comments MCHC (test code = MCHC) 32.6 32.0-36.0 [place] [address]-10-16 09:37:00 Test Item Value Reference Range Interpretation Comments RDW (test code = RDW) 16.4 11.5-14.5 [place] 439852-10-16 09:37:00 Test Item Value Reference Range Interpretation Comments Platelet (test code = Platelet) 362 133-450 [place] 439852-10-16 09:37:00 Test Item Value Reference Range Interpretation Comments MPV (test code = MPV) 8.1 7.4-10.4 [place] 439852-10-16 09:37:00 Test Item Value Reference Range Interpretation Comments Segs (test code = Segs) 76.4 45.0-75.0 [place] 439852-10-16 09:37:00 Test Item Value Reference Range Interpretation Comments Lymphocytes (test code = Lymphocytes) 13.3 20.0-40.0 [place] [address]-10-16 09:37:00 Test Item Value Reference Range Interpretation Comments Monocytes (test code = Monocytes) 5.7 2.0-12.0 [place] 439852-10-16 09:37:00 Test Item Value Reference Range Interpretation Comments Eosinophils (test code = 3.7 See_Comment [A utomated message] The Eosinophils) system which ge nerated this result tra nsmitted reference range : <=4.0. The reference r quynh was not used to int erpret this result as normal/abnormal . [place] 439852-10-16 09:37:00 Test Item Value Reference Range Interpretation Comments Basophils (test code = 0.9 See_Comment [Aut omated message] The Basophils) system which ge nerated this result tra nsmitted reference range : <=1.0. The reference r quynh was not used to int erpret this result as normal/abnormal . [facility] CenterQjfeptwKYZCKKZWRV9278-28-88 09:37:00 Test Item Value Reference Range Interpretation Comments Neutrophils # (test code = Neutrophils 12.0 1.5-8.1 #) [place] [address]-10-16 09:37:00 Test Item Value Reference Range Interpretation Comments Lymphocytes # (test code = Lymphocytes 2.1 1.0-5.5 #) [place] [address]-10-16 09:37:00 Test Item Value Reference Range Interpretation Comments Monocytes # (test code 0.9 See_Comment [Aut omated message] The = Monocytes #) system which generated this result tra nsmitted reference range : <=0.8. The reference r quynh was not used to int erpret this result as normal/abnormal . [place] [address]-10-16 09:37:00 Test Item Value Reference Range Interpretation Comments Eosinophils # (test code 0.6 See_Comment [A utomated message] The = Eosinophils #) system whic h generated this result tra nsmitted reference range : <=0.5. The reference r quynh was not used to int erpret this result as normal/abnormal . [place] [address]-10-16 09:37:00 Test Item Value Reference Range Interpretation Comments Basophils # (test code 0.1 See_Comment [Aut omated message] The = Basophils #) system which generated this result tra nsmitted reference range : <=0.2. The reference r quynh was not used to int erpret this result as normal/abnormal . [facility] [id number] 09:37:00 Test Item Value Reference Range Interpretation Comments Procalcitonin Lvl (test no gt See_Comment [Au tomated message] code = Procalcitonin Lvl) Th e system which generated this result transmitted ref erence range: <=0.10. The reference range was not used to interpr et this result as normal/abnormal . [facility] [id number] 09:37:00 Test Item Value Reference Range Interpretation Comments Glucose Lvl (test code = Glucose Lvl) 103 70-99 [facility] [id number] 09:37:00 Test Item Value Reference Range Interpretation Comments BUN (test code = BUN) 13 7-22 [facility] [id number] 09:37:00 Test Item Value Reference Range Interpretation Comments Creatinine Lvl (test code = Creatinine 0.67 0.50-1.40 Lvl) [facility] [id number] 09:37:00 Test Item Value Reference Range Interpretation Comments Sodium Lvl (test code = Sodium Lvl) 138 135-145 [facility] [id number] 09:37:00 Test Item Value Reference Range Interpretation Comments Potassium Lvl (test code = Potassium 3.7 3.5-5.1 Lvl) [facility] [id number] 09:37:00 Test Item Value Reference Range Interpretation Comments Chloride Lvl (test code = Chloride Lvl) 98 95-109 [facility] [id number] 09:37:00 Test Item Value Reference Range Interpretation Comments CO2 (test code = CO2) 32 24-32 [facility] HospitalNetevenMARK [facility] [id number] 09:37:00 Test Item Value Reference Range Interpretation Comments Calcium Lvl (test code = Calcium Lvl) 9.3 8.5-10.5 [facility] [id number] 09:37:00 Test Item Value Reference Range Interpretation Comments Total Protein (test code = Total 7.5 6.4-8.4 Protein) [facility]NetevenJ[facility] [id number] 09:37:00 Test Item Value Reference Range Interpretation Comments Albumin Lvl (test code = Albumin Lvl) 3.0 3.5-5.0 [facility] [id number] 09:37:00 Test Item Value Reference Range Interpretation Comments ALT (test code = ALT) 18 See_Comment [Auto mated message] The system which ge nerated this result transmit fabiano reference range : <=65. The reference range was not used to interpr et this result as aleks l/abnormal. [facility] [id number] 09:37:00 Test Item Value Reference Range Interpretation Comments AST (test code = AST) 6 See_Comment [Auto mated message] The system which ge nerated this result transmit fabiano reference range : <=37. The reference range was not used to interpr et this result as aleks l/abnormal. [facility] [id number] 09:37:00 Test Item Value Reference Range Interpretation Comments Alk Phos (test code = Alk Phos) 118 39-136 [facility] [id number] 09:37:00 Test Item Value Reference Range Interpretation Comments Bili Total (test code = Bili Total) 0.4 0.2-1.3 [facility] [id number] 09:37:00 Test Item Value Reference Range Interpretation Comments AGAP (test code = AGAP) 11.7 10.0-20.0 [facility] [id number] 09:37:00 Test Item Value Reference Range Interpretation Comments B/C Ratio (test code = B/C Ratio) 19 1 6-25 [place] [address]-10-16 09:37:00 Test Item Value Reference Range Interpretation Comments Globulin (test code = Globulin) 4.5 2.7-4.2 [place] 786342-10-16 09:37:00 Test Item Value Reference Range Interpretation Comments A/G Ratio (test code = A/G Ratio) 0.7 1 0.7-1.6 [place] 786342-10-16 09:37:00 Test Item Value Reference Range Interpretation Comments eGFR (test code = eGFR) 105 [place] 786342-10-16 09:37:00 Test Item Value Reference Range Interpretation Comments Phosphorus (test code = Phosphorus) 3.7 2.5-4.5 [place] 786342-10-16 09:37:00 Test Item Value Reference Range Interpretation Comments Magnesium Lvl (test code = Magnesium 2.1 1.8-2.4 Lvl) [place] 675862-10-16 09:37:00 Test Item Value Reference Range Interpretation Comments Procalcitonin Lvl (test no gt See_Comment [Au tomated message] code = Procalcitonin Lvl) Th e system which generated this result transmitted ref erence range: <=0.10. The reference range was not used to interpr et this result as normal/abnormal . [facility] CenterHcqsintKTCYPPRGTR3934-65-49 09:37:00 Test Item Value Reference Range Interpretation Comments WBC (test code = WBC) 15.7 3.7-10.4 [place] 439852-10-16 09:37:00 Test Item Value Reference Range Interpretation Comments RBC (test code = RBC) 4.10 4.20-5.40 [place] [address]-10-16 09:37:00 Test Item Value Reference Range Interpretation Comments Hgb (test code = Hgb) 10.7 12.0-16.0 [place] [address]-10-16 09:37:00 Test Item Value Reference Range Interpretation Comments Hct (test code = Hct) 32.8 36.0-48.0 [place] [address]-10-16 09:37:00 Test Item Value Reference Range Interpretation Comments MCV (test code = MCV) 80.0 80.0-98.0 [place] [address]-10-16 09:37:00 Test Item Value Reference Range Interpretation Comments MCH (test code = MCH) 26.1 pg 27.0-31.0 [facility] CenterPlgvesiFJLMTDGNQO3179-58-86 09:37:00 Test Item Value Reference Range Interpretation Comments MCHC (test code = MCHC) 32.6 32.0-36.0 [facility] CenterWmbrqmmOMNSCFCIZZ9906-40-22 09:37:00 Test Item Value Reference Range Interpretation Comments RDW (test code = RDW) 16.4 11.5-14.5 [place] 439852-10-16 09:37:00 Test Item Value Reference Range Interpretation Comments Platelet (test code = Platelet) 362 133-450 [facility] CenterDwtibssUALOUDWANW4526-60-19 09:37:00 Test Item Value Reference Range Interpretation Comments MPV (test code = MPV) 8.1 7.4-10.4 [facility] CenterIsalmuoMCGMQBSSKY3852-48-71 09:37:00 Test Item Value Reference Range Interpretation Comments Segs (test code = Segs) 76.4 45.0-75.0 [place] 439852-10-16 09:37:00 Test Item Value Reference Range Interpretation Comments Lymphocytes (test code = Lymphocytes) 13.3 20.0-40.0 [facility] CenterGxidfvqIZYTFCRIAF7434-57-73 09:37:00 Test Item Value Reference Range Interpretation Comments Monocytes (test code = Monocytes) 5.7 2.0-12.0 [facility] CenterLcjvqkqYIKULVVLJM3080-91-97 09:37:00 Test Item Value Reference Range Interpretation Comments Eosinophils (test code = 3.7 See_Comment [A utomated message] The Eosinophils) system which ge nerated this result tra nsmitted reference range : <=4.0. The reference r quynh was not used to int erpret this result as normal/abnormal . [place] 439852-10-16 09:37:00 Test Item Value Reference Range Interpretation Comments Basophils (test code = 0.9 See_Comment [Aut omated message] The Basophils) system which ge nerated this result tra nsmitted reference range : <=1.0. The reference r quynh was not used to int erpret this result as normal/abnormal . [place] 439852-10-16 09:37:00 Test Item Value Reference Range Interpretation Comments Neutrophils # (test code = Neutrophils 12.0 1.5-8.1 #) [place] [address]-10-16 09:37:00 Test Item Value Reference Range Interpretation Comments Lymphocytes # (test code = Lymphocytes 2.1 1.0-5.5 #) [place] [address]-10-16 09:37:00 Test Item Value Reference Range Interpretation Comments Monocytes # (test code 0.9 See_Comment [Aut omated message] The = Monocytes #) system which generated this result tra nsmitted reference range : <=0.8. The reference r quynh was not used to int erpret this result as normal/abnormal . [place] [address]-10-16 09:37:00 Test Item Value Reference Range Interpretation Comments Eosinophils # (test code 0.6 See_Comment [A utomated message] The = Eosinophils #) system whic h generated this result tra nsmitted reference range : <=0.5. The reference r quynh was not used to int erpret this result as normal/abnormal . [place] [address]-10-16 09:37:00 Test Item Value Reference Range Interpretation Comments Basophils # (test code 0.1 See_Comment [Aut omated message] The = Basophils #) system which generated this result tra nsmitted reference range : <=0.2. The reference r quynh was not used to int erpret this result as normal/abnormal . [place] 786342-10-16 09:37:00 Test Item Value Reference Range Interpretation Comments Procalcitonin Lvl (test no gt See_Comment [Au tomated message] code = Procalcitonin Lvl) Th e system which generated this result transmitted ref erence range: <=0.10. The reference range was not used to interpr et this result as normal/abnormal . [place] [address]-10-16 09:37:00 Test Item Value Reference Range Interpretation Comments Glucose Lvl (test code = Glucose Lvl) 103 70-99 [place] [address]-10-16 09:37:00 Test Item Value Reference Range Interpretation Comments BUN (test code = BUN) 13 7-22 [place] [address]-10-16 09:37:00 Test Item Value Reference Range Interpretation Comments Creatinine Lvl (test code = Creatinine 0.67 0.50-1.40 Lvl) [place] 786342-10-16 09:37:00 Test Item Value Reference Range Interpretation Comments Sodium Lvl (test code = Sodium Lvl) 138 135-145 [place] 786342-10-16 09:37:00 Test Item Value Reference Range Interpretation Comments Potassium Lvl (test code = Potassium 3.7 3.5-5.1 Lvl) [place] 786342-10-16 09:37:00 Test Item Value Reference Range Interpretation Comments Chloride Lvl (test code = Chloride Lvl) 98 95-109 [place] 786342-10-16 09:37:00 Test Item Value Reference Range Interpretation Comments CO2 (test code = CO2) 32 24-32 [place] 786342-10-16 09:37:00 Test Item Value Reference Range Interpretation Comments Calcium Lvl (test code = Calcium Lvl) 9.3 8.5-10.5 [place] 786342-10-16 09:37:00 Test Item Value Reference Range Interpretation Comments Total Protein (test code = Total 7.5 6.4-8.4 Protein) [place] 786342-10-16 09:37:00 Test Item Value Reference Range Interpretation Comments Albumin Lvl (test code = Albumin Lvl) 3.0 3.5-5.0 [place] 786342-10-16 09:37:00 Test Item Value Reference Range Interpretation Comments ALT (test code = ALT) 18 See_Comment [Auto mated message] The system which [employer] nerated this result transmit fabiano reference range : <=65. The reference range was not used to interpr et this result as aleks l/abnormal. [facility] [id number] 09:37:00 Test Item Value Reference Range Interpretation Comments AST (test code = AST) 6 See_Comment [Auto mated message] The system which [employer] nerated this result transmit fabiano reference range : <=37. The reference range was not used to interpr et this result as aleks l/abnormal. [place] [address]-10-16 09:37:00 Test Item Value Reference Range Interpretation Comments Alk Phos (test code = Alk Phos) 118 39-136 [facility] [id number] 09:37:00 Test Item Value Reference Range Interpretation Comments Bili Total (test code = Bili Total) 0.4 0.2-1.3 [place] 786342-10-16 09:37:00 Test Item Value Reference Range Interpretation Comments AGAP (test code = AGAP) 11.7 10.0-20.0 [place] 786342-10-16 09:37:00 Test Item Value Reference Range Interpretation Comments B/C Ratio (test code = B/C Ratio) 19 1 6-25 [place] [address]-10-16 09:37:00 Test Item Value Reference Range Interpretation Comments Globulin (test code = Globulin) 4.5 2.7-4.2 [place] 786342-10-16 09:37:00 Test Item Value Reference Range Interpretation Comments A/G Ratio (test code = A/G Ratio) 0.7 1 0.7-1.6 [place] [address]-10-16 09:37:00 Test Item Value Reference Range Interpretation Comments eGFR (test code = eGFR) 105 [facility]2022-10-16 09:37:00 Test Item Value Reference Range Interpretation Comments Phosphorus (test code = Phosphorus) 3.7 2.5-4.5 [place] 786342-10-16 09:37:00 Test Item Value Reference Range Interpretation Comments Magnesium Lvl (test code = Magnesium 2.1 1.8-2.4 Lvl) [place] 675862-10-16 09:37:00 Test Item Value Reference Range Interpretation Comments Procalcitonin Lvl (test no gt See_Comment [Au tomated message] code = Procalcitonin Lvl) e system which generated this result transmitted ref erence range: <=0.10. The reference range was not used to interpr et this result as normal/abnormal . [facility] CenterJkpyhuuJQXXNXXZWN9050-97-67 09:37:00 Test Item Value Reference Range Interpretation Comments WBC (test code = WBC) 15.7 3.7-10.4 [place] [address]-10-16 09:37:00 Test Item Value Reference Range Interpretation Comments RBC (test code = RBC) 4.10 4.20-5.40 [place] [address]-10-16 09:37:00 Test Item Value Reference Range Interpretation Comments Hgb (test code = Hgb) 10.7 12.0-16.0 [facility] DallasFljkdecZLMFBNSLKO0850-00-69 09:37:00 Test Item Value Reference Range Interpretation Comments Hct (test code = Hct) 32.8 36.0-48.0 [facility] HospitalFxlraobVMOVNFWLKR4480-63-48 09:37:00 Test Item Value Reference Range Interpretation Comments MCV (test code = MCV) 80.0 80.0-98.0 [facility] HospitalSdbuxilHQGDYYFWPG7902-61-36 09:37:00 Test Item Value Reference Range Interpretation Comments MCH (test code = MCH) 26.1 pg 27.0-31.0 [facility]OzvqwlfIPYINWNBQW7336-72-68 09:37:00 Test Item Value Reference Range Interpretation Comments MCHC (test code = MCHC) 32.6 32.0-36.0 [facility] DallasPgkitadDTAUXPDMON8615-62-67 09:37:00 Test Item Value Reference Range Interpretation Comments RDW (test code = RDW) 16.4 11.5-14.5 [facility] DallasHnwjzmoKGQCGUVYTM9837-51-03 09:37:00 Test Item Value Reference Range Interpretation Comments Platelet (test code = Platelet) 362 133-450 [facility] MichiganQgbsxcmVDLTGFFHNM2547-73-64 09:37:00 Test Item Value Reference Range Interpretation Comments MPV (test code = MPV) 8.1 7.4-10.4 [facility] DallasJovgpncSOVRQZHIXP3351-34-57 09:37:00 Test Item Value Reference Range Interpretation Comments Segs (test code = Segs) 76.4 45.0-75.0 [facility] HospitalWrybzgvDEKIYIUZSA9798-33-56 09:37:00 Test Item Value Reference Range Interpretation Comments Lymphocytes (test code = Lymphocytes) 13.3 20.0-40.0 [facility]2022-10-16 09:37:00 Test Item Value Reference Range Interpretation Comments Procalcitonin Lvl (test no gt See_Comment [Au tomated message] code = Procalcitonin Lvl) Th e system which generated this result transmitted ref erence range: <=0.10. The reference range was not used to interpr et this result as normal/abnormal . [facility] MichiganHykejmiWVASMOTNOT8804-52-92 09:37:00 Test Item Value Reference Range Interpretation Comments Monocytes (test code = Monocytes) 5.7 2.0-12.0 [place] [address]-10-16 09:37:00 Test Item Value Reference Range Interpretation Comments Glucose Lvl (test code = Glucose Lvl) 103 70-99 [place] [address]-10-16 09:37:00 Test Item Value Reference Range Interpretation Comments Eosinophils (test code = 3.7 See_Comment [A utomated message] The Eosinophils) system which ge nerated this result tra nsmitted reference range : <=4.0. The reference r quynh was not used to int erpret this result as normal/abnormal . [place] [address]-10-16 09:37:00 Test Item Value Reference Range Interpretation Comments BUN (test code = BUN) 13 7-22 [place] 439852-10-16 09:37:00 Test Item Value Reference Range Interpretation Comments Basophils (test code = 0.9 See_Comment [Aut omated message] The Basophils) system which ge nerated this result tra nsmitted reference range : <=1.0. The reference r quynh was not used to int erpret this result as normal/abnormal . [place] 786342-10-16 09:37:00 Test Item Value Reference Range Interpretation Comments Creatinine Lvl (test code = Creatinine 0.67 0.50-1.40 Lvl) [place] [address]-10-16 09:37:00 Test Item Value Reference Range Interpretation Comments Neutrophils # (test code = Neutrophils 12.0 1.5-8.1 #) [place] 786342-10-16 09:37:00 Test Item Value Reference Range Interpretation Comments Sodium Lvl (test code = Sodium Lvl) 138 135-145 [place] [address]-10-16 09:37:00 Test Item Value Reference Range Interpretation Comments Lymphocytes # (test code = Lymphocytes 2.1 1.0-5.5 #) [place] [address]-10-16 09:37:00 Test Item Value Reference Range Interpretation Comments Potassium Lvl (test code = Potassium 3.7 3.5-5.1 Lvl) [place] [address]-10-16 09:37:00 Test Item Value Reference Range Interpretation Comments Monocytes # (test code 0.9 See_Comment [Aut omated message] The = Monocytes #) system which generated this result tra nsmitted reference range : <=0.8. The reference r quynh was not used to int erpret this result as normal/abnormal . [facility] [employer] [id number] 09:37:00 Test Item Value Reference Range Interpretation Comments Chloride Lvl (test code = Chloride Lvl) 98 95-109 [facility] DallasSjptunfMQEUZFNYUD7844-99-74 09:37:00 Test Item Value Reference Range Interpretation Comments Eosinophils # (test code 0.6 See_Comment [A utomated message] The = Eosinophils #) system whic h generated this result tra nsmitted reference range : <=0.5. The reference r quynh was not used to int erpret this result as normal/abnormal . [facility] [employer] [id number] 09:37:00 Test Item Value Reference Range Interpretation Comments CO2 (test code = CO2) 32 24-32 [facility] HospitalGdyrcdjJOFNPFCCBP0531-58-75 09:37:00 Test Item Value Reference Range Interpretation Comments Basophils # (test code 0.1 See_Comment [Aut omated message] The = Basophils #) system which generated this result tra nsmitted reference range : <=0.2. The reference r quynh was not used to int erpret this result as normal/abnormal . [facility] [employer] [id number] 09:37:00 Test Item Value Reference Range Interpretation Comments Calcium Lvl (test code = Calcium Lvl) 9.3 8.5-10.5 [facility] [employer] [id number] 09:37:00 Test Item Value Reference Range Interpretation Comments Total Protein (test code = Total 7.5 6.4-8.4 Protein) [facility] [id number] 09:37:00 Test Item Value Reference Range Interpretation Comments Procalcitonin Lvl (test no gt See_Comment [Au tomated message] code = Procalcitonin Lvl) Th e system which generated this result transmitted ref erence range: <=0.10. The reference range was not used to interpr et this result as normal/abnormal . [facility] [employer] [id number] 09:37:00 Test Item Value Reference Range Interpretation Comments Albumin Lvl (test code = Albumin Lvl) 3.0 3.5-5.0 [place] 786342-10-16 09:37:00 Test Item Value Reference Range Interpretation Comments Glucose Lvl (test code = Glucose Lvl) 103 70-99 [place] 786342-10-16 09:37:00 Test Item Value Reference Range Interpretation Comments ALT (test code = ALT) 18 See_Comment [Auto mated message] The system which ge nerated this result transmit fabiano reference range : <=65. The reference range was not used to interpr et this result as aleks l/abnormal. [place] 786342-10-16 09:37:00 Test Item Value Reference Range Interpretation Comments BUN (test code = BUN) 13 7-22 [place] 786342-10-16 09:37:00 Test Item Value Reference Range Interpretation Comments AST (test code = AST) 6 See_Comment [Auto mated message] The system which ge nerated this result transmit fabiano reference range : <=37. The reference range was not used to interpr et this result as aleks l/abnormal. [facility] [id number] 09:37:00 Test Item Value Reference Range Interpretation Comments Creatinine Lvl (test code = Creatinine 0.67 0.50-1.40 Lvl) [facility] [id number] 09:37:00 Test Item Value Reference Range Interpretation Comments Alk Phos (test code = Alk Phos) 118 39-136 [place] [address]-10-16 09:37:00 Test Item Value Reference Range Interpretation Comments Sodium Lvl (test code = Sodium Lvl) 138 135-145 [facility] [id number] 09:37:00 Test Item Value Reference Range Interpretation Comments Bili Total (test code = Bili Total) 0.4 0.2-1.3 [facility] [id number] 09:37:00 Test Item Value Reference Range Interpretation Comments Potassium Lvl (test code = Potassium 3.7 3.5-5.1 Lvl) [place] 786342-10-16 09:37:00 Test Item Value Reference Range Interpretation Comments AGAP (test code = AGAP) 11.7 10.0-20.0 [facility] [id number] 09:37:00 Test Item Value Reference Range Interpretation Comments Chloride Lvl (test code = Chloride Lvl) 98 95-109 [facility]2022-10-16 09:37:00 Test Item Value Reference Range Interpretation Comments B/C Ratio (test code = B/C Ratio) 19 1 6-25 [place] 786342-10-16 09:37:00 Test Item Value Reference Range Interpretation Comments CO2 (test code = CO2) 32 24-32 [place] 786342-10-16 09:37:00 Test Item Value Reference Range Interpretation Comments Globulin (test code = Globulin) 4.5 2.7-4.2 [place] 786342-10-16 09:37:00 Test Item Value Reference Range Interpretation Comments Calcium Lvl (test code = Calcium Lvl) 9.3 8.5-10.5 [place] 786342-10-16 09:37:00 Test Item Value Reference Range Interpretation Comments A/G Ratio (test code = A/G Ratio) 0.7 1 0.7-1.6 [place] 786342-10-16 09:37:00 Test Item Value Reference Range Interpretation Comments Total Protein (test code = Total 7.5 6.4-8.4 Protein) [place] 786342-10-16 09:37:00 Test Item Value Reference Range Interpretation Comments eGFR (test code = eGFR) 105 [place] 786342-10-16 09:37:00 Test Item Value Reference Range Interpretation Comments Albumin Lvl (test code = Albumin Lvl) 3.0 3.5-5.0 [place] 786342-10-16 09:37:00 Test Item Value Reference Range Interpretation Comments Phosphorus (test code = Phosphorus) 3.7 2.5-4.5 [place] 786342-10-16 09:37:00 Test Item Value Reference Range Interpretation Comments ALT (test code = ALT) 18 See_Comment [Auto mated message] The system which ge nerated this result transmit fabiano reference range : <=65. The reference range was not used to interpr et this result as aleks l/abnormal. [place] 786342-10-16 09:37:00 Test Item Value Reference Range Interpretation Comments Magnesium Lvl (test code = Magnesium 2.1 1.8-2.4 Lvl) [place] 786342-10-16 09:37:00 Test Item Value Reference Range Interpretation Comments AST (test code = AST) 6 See_Comment [Auto mated message] The system which ge nerated this result transmit fabiano reference range : <=37. The reference range was not used to interpr et this result as aleks l/abnormal. [place] [address]-10-16 09:37:00 Test Item Value Reference Range Interpretation Comments Procalcitonin Lvl (test no gt See_Comment [Au tomated message] code = Procalcitonin Lvl) Th e system which generated this result transmitted ref erence range: <=0.10. The reference range was not used to interpr et this result as normal/abnormal . [facility] [id number] 09:37:00 Test Item Value Reference Range Interpretation Comments Alk Phos (test code = Alk Phos) 118 39-136 [facility] DallasVzelfekAVELTBHAGO9526-43-62 09:37:00 Test Item Value Reference Range Interpretation Comments WBC (test code = WBC) 15.7 3.7-10.4 [facility] [id number] 09:37:00 Test Item Value Reference Range Interpretation Comments Bili Total (test code = Bili Total) 0.4 0.2-1.3 [facility] DallasZvxduuaJXWDFWZNEG4046-24-32 09:37:00 Test Item Value Reference Range Interpretation Comments RBC (test code = RBC) 4.10 4.20-5.40 [facility] [id number] 09:37:00 Test Item Value Reference Range Interpretation Comments AGAP (test code = AGAP) 11.7 10.0-20.0 [facility] DallasBcmyrpqEGKOBZQEBE8411-35-70 09:37:00 Test Item Value Reference Range Interpretation Comments Hgb (test code = Hgb) 10.7 12.0-16.0 [facility] [id number] 09:37:00 Test Item Value Reference Range Interpretation Comments B/C Ratio (test code = B/C Ratio) 19 1 6-25 [facility] DallasVhgfpwiMYTSDTXZYS2946-03-70 09:37:00 Test Item Value Reference Range Interpretation Comments Hct (test code = Hct) 32.8 36.0-48.0 [facility] [id number] 09:37:00 Test Item Value Reference Range Interpretation Comments Globulin (test code = Globulin) 4.5 2.7-4.2 [place] [address]-10-16 09:37:00 Test Item Value Reference Range Interpretation Comments MCV (test code = MCV) 80.0 80.0-98.0 [place] 786342-10-16 09:37:00 Test Item Value Reference Range Interpretation Comments A/G Ratio (test code = A/G Ratio) 0.7 1 0.7-1.6 [place] [address]-10-16 09:37:00 Test Item Value Reference Range Interpretation Comments MCH (test code = MCH) 26.1 pg 27.0-31.0 [place] 786342-10-16 09:37:00 Test Item Value Reference Range Interpretation Comments eGFR (test code = eGFR) 105 [place] 439852-10-16 09:37:00 Test Item Value Reference Range Interpretation Comments MCHC (test code = MCHC) 32.6 32.0-36.0 [place] [address]-10-16 09:37:00 Test Item Value Reference Range Interpretation Comments Phosphorus (test code = Phosphorus) 3.7 2.5-4.5 [place] [address]-10-16 09:37:00 Test Item Value Reference Range Interpretation Comments RDW (test code = RDW) 16.4 11.5-14.5 [place] [address]-10-16 09:37:00 Test Item Value Reference Range Interpretation Comments Magnesium Lvl (test code = Magnesium 2.1 1.8-2.4 Lvl) [place] 439852-10-16 09:37:00 Test Item Value Reference Range Interpretation Comments Platelet (test code = Platelet) 362 133-450 [place] 675862-10-16 09:37:00 Test Item Value Reference Range Interpretation Comments Procalcitonin Lvl (test no gt See_Comment [Au tomated message] code = Procalcitonin Lvl) e system which generated this result transmitted ref erence range: <=0.10. The reference range was not used to interpr et this result as normal/abnormal . [place] 439852-10-16 09:37:00 Test Item Value Reference Range Interpretation Comments MPV (test code = MPV) 8.1 7.4-10.4 [facility] CenterJzshdtpNIBJBXUWDP6717-30-11 09:37:00 Test Item Value Reference Range Interpretation Comments WBC (test code = WBC) 15.7 3.7-10.4 [facility] CenterJdbjlapXZCXSENPRC6188-43-74 09:37:00 Test Item Value Reference Range Interpretation Comments Segs (test code = Segs) 76.4 45.0-75.0 [facility] CenterUhywwvzAJLENEOQGD7512-51-79 09:37:00 Test Item Value Reference Range Interpretation Comments RBC (test code = RBC) 4.10 4.20-5.40 [facility] CenterMdfouqyRTINXWSEBL2962-99-69 09:37:00 Test Item Value Reference Range Interpretation Comments Lymphocytes (test code = Lymphocytes) 13.3 20.0-40.0 [facility] CenterAoqstihXAGNPQZZIM3625-69-59 09:37:00 Test Item Value Reference Range Interpretation Comments Hgb (test code = Hgb) 10.7 12.0-16.0 [facility] CenterIrtlragAPPLDAZMUK6592-57-83 09:37:00 Test Item Value Reference Range Interpretation Comments Monocytes (test code = Monocytes) 5.7 2.0-12.0 [facility] CenterFphxenpFLIEMVHYUV3176-10-71 09:37:00 Test Item Value Reference Range Interpretation Comments Hct (test code = Hct) 32.8 36.0-48.0 [facility] CenterSafeosoXBVZKXEXJK2818-91-44 09:37:00 Test Item Value Reference Range Interpretation Comments Eosinophils (test code = 3.7 See_Comment [A utomated message] The Eosinophils) system which ge nerated this result tra nsmitted reference range : <=4.0. The reference r quynh was not used to int erpret this result as normal/abnormal . [facility] CenterAkqeyxeLMTDKCBOBW6972-13-94 09:37:00 Test Item Value Reference Range Interpretation Comments MCV (test code = MCV) 80.0 80.0-98.0 [facility] CenterTlgvmueIEIAOULYVK6238-52-48 09:37:00 Test Item Value Reference Range Interpretation Comments Basophils (test code = 0.9 See_Comment [Aut omated message] The Basophils) system which ge nerated this result tra nsmitted reference range : <=1.0. The reference r quynh was not used to int erpret this result as normal/abnormal . [facility] CenterLfjrzikLJADWLMRDK0979-87-40 09:37:00 Test Item Value Reference Range Interpretation Comments MCH (test code = MCH) 26.1 pg 27.0-31.0 [facility] CenterSqarfigPMVGKOICAN0373-78-16 09:37:00 Test Item Value Reference Range Interpretation Comments Neutrophils # (test code = Neutrophils 12.0 1.5-8.1 #) [facility] CenterXhtszqiWYSVEAVSFP5777-49-02 09:37:00 Test Item Value Reference Range Interpretation Comments MCHC (test code = MCHC) 32.6 32.0-36.0 [place]852-10-16 09:37:00 Test Item Value Reference Range Interpretation Comments Lymphocytes # (test code = Lymphocytes 2.1 1.0-5.5 #) [facility] CenterUjdhwjfIEVHLDCMPN0603-54-00 09:37:00 Test Item Value Reference Range Interpretation Comments RDW (test code = RDW) 16.4 11.5-14.5 [place] 439852-10-16 09:37:00 Test Item Value Reference Range Interpretation Comments Monocytes # (test code 0.9 See_Comment [Aut omated message] The = Monocytes #) system which generated this result tra nsmitted reference range : <=0.8. The reference r quynh was not used to int erpret this result as normal/abnormal . [place] 439852-10-16 09:37:00 Test Item Value Reference Range Interpretation Comments Platelet (test code = Platelet) 362 133-450 [place] 439852-10-16 09:37:00 Test Item Value Reference Range Interpretation Comments Eosinophils # (test code 0.6 See_Comment [A utomated message] The = Eosinophils #) system whic h generated this result tra nsmitted reference range : <=0.5. The reference r quynh was not used to int erpret this result as normal/abnormal . [facility] CenterCknndnyMQQCOSFSUH8568-69-58 09:37:00 Test Item Value Reference Range Interpretation Comments MPV (test code = MPV) 8.1 7.4-10.4 [place] [address]-10-16 09:37:00 Test Item Value Reference Range Interpretation Comments Basophils # (test code 0.1 See_Comment [Aut omated message] The = Basophils #) system which generated this result tra nsmitted reference range : <=0.2. The reference r quynh was not used to int erpret this result as normal/abnormal . [facility] CenterZilwypuWUAEPRSXOV8981-59-18 09:37:00 Test Item Value Reference Range Interpretation Comments Segs (test code = Segs) 76.4 45.0-75.0 [facility] CenterCfpvnbgSXDDFDQOEE1482-26-10 09:37:00 Test Item Value Reference Range Interpretation Comments Lymphocytes (test code = Lymphocytes) 13.3 20.0-40.0 [place] 439852-10-16 09:37:00 Test Item Value Reference Range Interpretation Comments Monocytes (test code = Monocytes) 5.7 2.0-12.0 [facility] CenterMoxijntCDYEPSWBUM4990-06-03 09:37:00 Test Item Value Reference Range Interpretation Comments Eosinophils (test code = 3.7 See_Comment [A utomated message] The Eosinophils) system which ge nerated this result tra nsmitted reference range : <=4.0. The reference r quynh was not used to int erpret this result as normal/abnormal . [facility] CenterZhdpijcOSPUAGNLQM3062-44-23 09:37:00 Test Item Value Reference Range Interpretation Comments Basophils (test code = 0.9 See_Comment [Aut omated message] The Basophils) system which ge nerated this result tra nsmitted reference range : <=1.0. The reference r quynh was not used to int erpret this result as normal/abnormal . [facility] CenterYjzabwmCXQUYBOHXG6308-02-29 09:37:00 Test Item Value Reference Range Interpretation Comments Neutrophils # (test code = Neutrophils 12.0 1.5-8.1 #) [place] 439852-10-16 09:37:00 Test Item Value Reference Range Interpretation Comments Lymphocytes # (test code = Lymphocytes 2.1 1.0-5.5 #) [place] [address]-10-16 09:37:00 Test Item Value Reference Range Interpretation Comments Monocytes # (test code 0.9 See_Comment [Aut omated message] The = Monocytes #) system which generated this result tra nsmitted reference range : <=0.8. The reference r quynh was not used to int erpret this result as normal/abnormal . [place] [address]-10-16 09:37:00 Test Item Value Reference Range Interpretation Comments Eosinophils # (test code 0.6 See_Comment [A utomated message] The = Eosinophils #) system whic h generated this result tra nsmitted reference range : <=0.5. The reference r quynh was not used to int erpret this result as normal/abnormal . [facility] CenterEklopyzXQOUGUPFQN1451-69-69 09:37:00 Test Item Value Reference Range Interpretation Comments Basophils # (test code 0.1 See_Comment [Aut omated message] The = Basophils #) system which generated this result tra nsmitted reference range : <=0.2. The reference r quynh was not used to int erpret this result as normal/abnormal . [place] 786342-10-16 09:37:00 Test Item Value Reference Range Interpretation Comments Procalcitonin Lvl (test no gt See_Comment [Au tomated message] code = Procalcitonin Lvl) Th e system which generated this result transmitted ref erence range: <=0.10. The reference range was not used to interpr et this result as normal/abnormal . [facility]2022-10-16 09:37:00 Test Item Value Reference Range Interpretation Comments Glucose Lvl (test code = Glucose Lvl) 103 70-99 [place] [address]-10-16 09:37:00 Test Item Value Reference Range Interpretation Comments BUN (test code = BUN) 13 7-22 [place] [address]-10-16 09:37:00 Test Item Value Reference Range Interpretation Comments Creatinine Lvl (test code = Creatinine 0.67 0.50-1.40 Lvl) [place] [address]-10-16 09:37:00 Test Item Value Reference Range Interpretation Comments Sodium Lvl (test code = Sodium Lvl) 138 135-145 [place] [address]-10-16 09:37:00 Test Item Value Reference Range Interpretation Comments Potassium Lvl (test code = Potassium 3.7 3.5-5.1 Lvl) [place] [address]-10-16 09:37:00 Test Item Value Reference Range Interpretation Comments Chloride Lvl (test code = Chloride Lvl) 98 95-109 [place] 786342-10-16 09:37:00 Test Item Value Reference Range Interpretation Comments CO2 (test code = CO2) 32 24-32 [place] 786342-10-16 09:37:00 Test Item Value Reference Range Interpretation Comments Calcium Lvl (test code = Calcium Lvl) 9.3 8.5-10.5 [place] 786342-10-16 09:37:00 Test Item Value Reference Range Interpretation Comments Total Protein (test code = Total 7.5 6.4-8.4 Protein) [place] 786342-10-16 09:37:00 Test Item Value Reference Range Interpretation Comments Albumin Lvl (test code = Albumin Lvl) 3.0 3.5-5.0 [facility] [id number] 09:37:00 Test Item Value Reference Range Interpretation Comments ALT (test code = ALT) 18 See_Comment [Auto mated message] The system which ge nerated this result transmit fabiano reference range : <=65. The reference range was not used to interpr et this result as aleks l/abnormal. [facility] [id number] 09:37:00 Test Item Value Reference Range Interpretation Comments AST (test code = AST) 6 See_Comment [Auto mated message] The system which ge nerated this result transmit fabiano reference range : <=37. The reference range was not used to interpr et this result as aleks l/abnormal. [facility] [id number] 09:37:00 Test Item Value Reference Range Interpretation Comments Alk Phos (test code = Alk Phos) 118 39-136 [facility] [id number] 09:37:00 Test Item Value Reference Range Interpretation Comments Bili Total (test code = Bili Total) 0.4 0.2-1.3 [facility] [id number] 09:37:00 Test Item Value Reference Range Interpretation Comments AGAP (test code = AGAP) 11.7 10.0-20.0 [facility] [employer] [id number] 09:37:00 Test Item Value Reference Range Interpretation Comments B/C Ratio (test code = B/C Ratio) 19 1 6-25 [facility] RMJSZ0256-08-26 09:37:00 Test Item Value Reference Range Interpretation Comments Globulin (test code = Globulin) 4.5 2.7-4.2 [facility] [id number] 09:37:00 Test Item Value Reference Range Interpretation Comments A/G Ratio (test code = A/G Ratio) 0.7 1 0.7-1.6 [address]10-16 09:37:00 Test Item Value Reference Range Interpretation Comments eGFR (test code = eGFR) 105 [place] [address]-10-16 09:37:00 Test Item Value Reference Range Interpretation Comments Phosphorus (test code = Phosphorus) 3.7 2.5-4.5 [place] [address]-10-16 09:37:00 Test Item Value Reference Range Interpretation Comments Magnesium Lvl (test code = Magnesium 2.1 1.8-2.4 Lvl) [place] [address]-10-16 09:37:00 Test Item Value Reference Range Interpretation Comments Procalcitonin Lvl (test no gt See_Comment [Au tomated message] code = Procalcitonin Lvl) Th e system which generated this result transmitted ref erence range: <=0.10. The reference range was not used to interpr et this result as normal/abnormal . [place] [address]-10-16 09:37:00 Test Item Value Reference Range Interpretation Comments WBC (test code = WBC) 15.7 3.7-10.4 [place] [address]-10-16 09:37:00 Test Item Value Reference Range Interpretation Comments RBC (test code = RBC) 4.10 4.20-5.40 [place] [address]-10-16 09:37:00 Test Item Value Reference Range Interpretation Comments Hgb (test code = Hgb) 10.7 12.0-16.0 [place] [address]-10-16 09:37:00 Test Item Value Reference Range Interpretation Comments Hct (test code = Hct) 32.8 36.0-48.0 [place] [address]-10-16 09:37:00 Test Item Value Reference Range Interpretation Comments MCV (test code = MCV) 80.0 80.0-98.0 [place] [address]-10-16 09:37:00 Test Item Value Reference Range Interpretation Comments MCH (test code = MCH) 26.1 pg 27.0-31.0 [place] [address]-10-16 09:37:00 Test Item Value Reference Range Interpretation Comments MCHC (test code = MCHC) 32.6 32.0-36.0 [place] 439852-10-16 09:37:00 Test Item Value Reference Range Interpretation Comments RDW (test code = RDW) 16.4 11.5-14.5 [place] 439852-10-16 09:37:00 Test Item Value Reference Range Interpretation Comments Platelet (test code = Platelet) 362 133-450 [facility] CenterBoujgggLXUIYKSWHE3270-56-30 09:37:00 Test Item Value Reference Range Interpretation Comments MPV (test code = MPV) 8.1 7.4-10.4 [place] 439852-10-16 09:37:00 Test Item Value Reference Range Interpretation Comments Segs (test code = Segs) 76.4 45.0-75.0 [place] [address]-10-16 09:37:00 Test Item Value Reference Range Interpretation Comments Lymphocytes (test code = Lymphocytes) 13.3 20.0-40.0 [place] 439852-10-16 09:37:00 Test Item Value Reference Range Interpretation Comments Monocytes (test code = Monocytes) 5.7 2.0-12.0 [place] [address]-10-16 09:37:00 Test Item Value Reference Range Interpretation Comments Eosinophils (test code = 3.7 See_Comment [A utomated message] The Eosinophils) system which ge nerated this result tra nsmitted reference range : <=4.0. The reference r quynh was not used to int erpret this result as normal/abnormal . [facility] CenterUznnbsmNHVDLXOXEB6125-65-93 09:37:00 Test Item Value Reference Range Interpretation Comments Basophils (test code = 0.9 See_Comment [Aut omated message] The Basophils) system which ge nerated this result tra nsmitted reference range : <=1.0. The reference r quynh was not used to int erpret this result as normal/abnormal . [place] 439852-10-16 09:37:00 Test Item Value Reference Range Interpretation Comments Neutrophils # (test code = Neutrophils 12.0 1.5-8.1 #) [place] 439852-10-16 09:37:00 Test Item Value Reference Range Interpretation Comments Lymphocytes # (test code = Lymphocytes 2.1 1.0-5.5 #) [place] 439852-10-16 09:37:00 Test Item Value Reference Range Interpretation Comments Monocytes # (test code 0.9 See_Comment [Aut omated message] The = Monocytes #) system which generated this result tra nsmitted reference range : <=0.8. The reference r quynh was not used to int erpret this result as normal/abnormal . [place] 439852-10-16 09:37:00 Test Item Value Reference Range Interpretation Comments Eosinophils # (test code 0.6 See_Comment [A utomated message] The = Eosinophils #) system whic h generated this result tra nsmitted reference range : <=0.5. The reference r quynh was not used to int erpret this result as normal/abnormal . [facility] CenterWqsxiogOEOALWLTQM8545-74-40 09:37:00 Test Item Value Reference Range Interpretation Comments Basophils # (test code 0.1 See_Comment [Aut omated message] The = Basophils #) system which generated this result tra nsmitted reference range : <=0.2. The reference r quynh was not used to int erpret this result as normal/abnormal . [facility] [id number] 09:37:00 Test Item Value Reference Range Interpretation Comments Procalcitonin Lvl (test no gt See_Comment [Au tomated message] code = Procalcitonin Lvl) Th e system which generated this result transmitted ref erence range: <=0.10. The reference range was not used to interpr et this result as normal/abnormal . [facility] [id number] 09:37:00 Test Item Value Reference Range Interpretation Comments Glucose Lvl (test code = Glucose Lvl) 103 70-99 [facility] [id number] 09:37:00 Test Item Value Reference Range Interpretation Comments BUN (test code = BUN) 13 7-22 [facility] [id number] 09:37:00 Test Item Value Reference Range Interpretation Comments Creatinine Lvl (test code = Creatinine 0.67 0.50-1.40 Lvl) [place] 786342-10-16 09:37:00 Test Item Value Reference Range Interpretation Comments Sodium Lvl (test code = Sodium Lvl) 138 135-145 [place] 786342-10-16 09:37:00 Test Item Value Reference Range Interpretation Comments Potassium Lvl (test code = Potassium 3.7 3.5-5.1 Lvl) [place] [address]-10-16 09:37:00 Test Item Value Reference Range Interpretation Comments Chloride Lvl (test code = Chloride Lvl) 98 95-109 [place] [address]-10-16 09:37:00 Test Item Value Reference Range Interpretation Comments CO2 (test code = CO2) 32 24-32 [place] 786342-10-16 09:37:00 Test Item Value Reference Range Interpretation Comments Calcium Lvl (test code = Calcium Lvl) 9.3 8.5-10.5 [facility] HospitalNetevenJ[facility] [id number] 09:37:00 Test Item Value Reference Range Interpretation Comments Total Protein (test code = Total 7.5 6.4-8.4 Protein) [address]10-16 09:37:00 Test Item Value Reference Range Interpretation Comments Albumin Lvl (test code = Albumin Lvl) 3.0 3.5-5.0 [place] [address]-10-16 09:37:00 Test Item Value Reference Range Interpretation Comments ALT (test code = ALT) 18 See_Comment [Auto mated message] The system which ge nerated this result transmit fabiano reference range : <=65. The reference range was not used to interpr et this result as aleks l/abnormal. [facility] [id number] 09:37:00 Test Item Value Reference Range Interpretation Comments AST (test code = AST) 6 See_Comment [Auto mated message] The system which ge nerated this result transmit fabiano reference range : <=37. The reference range was not used to interpr et this result as aleks l/abnormal. [facility] [id number] 09:37:00 Test Item Value Reference Range Interpretation Comments Alk Phos (test code = Alk Phos) 118 39-136 [place] [address]-10-16 09:37:00 Test Item Value Reference Range Interpretation Comments Bili Total (test code = Bili Total) 0.4 0.2-1.3 [facility] [id number] 09:37:00 Test Item Value Reference Range Interpretation Comments AGAP (test code = AGAP) 11.7 10.0-20.0 [place] [address]-10-16 09:37:00 Test Item Value Reference Range Interpretation Comments B/C Ratio (test code = B/C Ratio) 19 1 6-25 [address]10-16 09:37:00 Test Item Value Reference Range Interpretation Comments Globulin (test code = Globulin) 4.5 2.7-4.2 [place] [address]-10-16 09:37:00 Test Item Value Reference Range Interpretation Comments A/G Ratio (test code = A/G Ratio) 0.7 1 0.7-1.6 [place] [address]-10-16 09:37:00 Test Item Value Reference Range Interpretation Comments eGFR (test code = eGFR) 105 [place] [address]-10-16 09:37:00 Test Item Value Reference Range Interpretation Comments Phosphorus (test code = Phosphorus) 3.7 2.5-4.5 [place] [address]-10-16 09:37:00 Test Item Value Reference Range Interpretation Comments Magnesium Lvl (test code = Magnesium 2.1 1.8-2.4 Lvl) [address]10-16 09:37:00 Test Item Value Reference Range Interpretation Comments Procalcitonin Lvl (test no gt See_Comment [Au tomated message] code = Procalcitonin Lvl) Th e system which generated this result transmitted ref erence range: <=0.10. The reference range was not used to interpr et this result as normal/abnormal . [place] [address]-10-16 09:37:00 Test Item Value Reference Range Interpretation Comments Procalcitonin Lvl (test no gt See_Comment [Au tomated message] code = Procalcitonin Lvl) Th e system which generated this result transmitted ref erence range: <=0.10. The reference range was not used to interpr et this result as normal/abnormal . [address]10-16 09:37:00 Test Item Value Reference Range Interpretation Comments WBC (test code = WBC) 15.7 3.7-10.4 [place] [address]-10-16 09:37:00 Test Item Value Reference Range Interpretation Comments RBC (test code = RBC) 4.10 4.20-5.40 [facility] CenterUixgnwcOKDHOEDSDR7700-89-35 09:37:00 Test Item Value Reference Range Interpretation Comments Hgb (test code = Hgb) 10.7 12.0-16.0 [place] 439852-10-16 09:37:00 Test Item Value Reference Range Interpretation Comments Hct (test code = Hct) 32.8 36.0-48.0 [facility] CenterWuhhmlaNWWWLSLVLK7568-44-98 09:37:00 Test Item Value Reference Range Interpretation Comments MCV (test code = MCV) 80.0 80.0-98.0 [facility] CenterFgjtnohEMIYFQTWJF6398-05-67 09:37:00 Test Item Value Reference Range Interpretation Comments MCH (test code = MCH) 26.1 pg 27.0-31.0 [facility] CenterWgfcqbaZCOOMXUFLT2694-65-78 09:37:00 Test Item Value Reference Range Interpretation Comments MCHC (test code = MCHC) 32.6 32.0-36.0 [place] 439852-10-16 09:37:00 Test Item Value Reference Range Interpretation Comments RDW (test code = RDW) 16.4 11.5-14.5 [facility] CenterLjdtcdjHOJZYHNJBD5101-82-96 09:37:00 Test Item Value Reference Range Interpretation Comments Platelet (test code = Platelet) 362 133-450 [facility] CenterDduwvxmJMTGCAZEYV7332-94-25 09:37:00 Test Item Value Reference Range Interpretation Comments MPV (test code = MPV) 8.1 7.4-10.4 [facility]2022-10-16 09:37:00 Test Item Value Reference Range Interpretation Comments Glucose Lvl (test code = Glucose Lvl) 103 70-99 [facility] CenterEjpdfesWKTVFXDBGK8837-65-18 09:37:00 Test Item Value Reference Range Interpretation Comments Segs (test code = Segs) 76.4 45.0-75.0 [facility] CenterYsiyzlmVHUWCBNPHJ3355-27-60 09:37:00 Test Item Value Reference Range Interpretation Comments Lymphocytes (test code = Lymphocytes) 13.3 20.0-40.0 [place] 439852-10-16 09:37:00 Test Item Value Reference Range Interpretation Comments Monocytes (test code = Monocytes) 5.7 2.0-12.0 [place] [address]-10-16 09:37:00 Test Item Value Reference Range Interpretation Comments Eosinophils (test code = 3.7 See_Comment [A utomated message] The Eosinophils) system which ge nerated this result tra nsmitted reference range : <=4.0. The reference r quynh was not used to int erpret this result as normal/abnormal . [place] [address]-10-16 09:37:00 Test Item Value Reference Range Interpretation Comments Basophils (test code = 0.9 See_Comment [Aut omated message] The Basophils) system which ge nerated this result tra nsmitted reference range : <=1.0. The reference r quynh was not used to int erpret this result as normal/abnormal . [place] 439852-10-16 09:37:00 Test Item Value Reference Range Interpretation Comments Neutrophils # (test code = Neutrophils 12.0 1.5-8.1 #) [place] [address]-10-16 09:37:00 Test Item Value Reference Range Interpretation Comments Lymphocytes # (test code = Lymphocytes 2.1 1.0-5.5 #) [address]10-16 09:37:00 Test Item Value Reference Range Interpretation Comments Monocytes # (test code 0.9 See_Comment [Aut omated message] The = Monocytes #) system which generated this result tra nsmitted reference range : <=0.8. The reference r quynh was not used to int erpret this result as normal/abnormal . [facility] CenterJolnrwgZFOJVLXUPY1857-29-40 09:37:00 Test Item Value Reference Range Interpretation Comments Eosinophils # (test code 0.6 See_Comment [A utomated message] The = Eosinophils #) system whic h generated this result tra nsmitted reference range : <=0.5. The reference r quynh was not used to int erpret this result as normal/abnormal . [place] [address]-10-16 09:37:00 Test Item Value Reference Range Interpretation Comments Basophils # (test code 0.1 See_Comment [Aut omated message] The = Basophils #) system which generated this result tra nsmitted reference range : <=0.2. The reference r quynh was not used to int erpret this result as normal/abnormal . [facility]2022-10-16 09:37:00 Test Item Value Reference Range Interpretation Comments BUN (test code = BUN) 13 7-22 [place] [address]-10-16 09:37:00 Test Item Value Reference Range Interpretation Comments Creatinine Lvl (test code = Creatinine 0.67 0.50-1.40 Lvl) [place] [address]-10-16 09:37:00 Test Item Value Reference Range Interpretation Comments Sodium Lvl (test code = Sodium Lvl) 138 135-145 [place] [address]-10-16 09:37:00 Test Item Value Reference Range Interpretation Comments Potassium Lvl (test code = Potassium 3.7 3.5-5.1 Lvl) [address]10-16 09:37:00 Test Item Value Reference Range Interpretation Comments Chloride Lvl (test code = Chloride Lvl) 98 95-109 [address]10-16 09:37:00 Test Item Value Reference Range Interpretation Comments CO2 (test code = CO2) 32 24-32 [place] [address]-10-16 09:37:00 Test Item Value Reference Range Interpretation Comments Calcium Lvl (test code = Calcium Lvl) 9.3 8.5-10.5 [place] [address]-10-16 09:37:00 Test Item Value Reference Range Interpretation Comments Total Protein (test code = Total 7.5 6.4-8.4 Protein) [address]10-16 09:37:00 Test Item Value Reference Range Interpretation Comments Albumin Lvl (test code = Albumin Lvl) 3.0 3.5-5.0 [place] [address]-10-16 09:37:00 Test Item Value Reference Range Interpretation Comments ALT (test code = ALT) 18 See_Comment [Auto mated message] The system which ge nerated this result transmit fabiano reference range : <=65. The reference range was not used to interpr et this result as aleks l/abnormal. [address]10-16 09:37:00 Test Item Value Reference Range Interpretation Comments AST (test code = AST) 6 See_Comment [Auto mated message] The system which ge nerated this result transmit fabiano reference range : <=37. The reference range was not used to interpr et this result as aleks l/abnormal. [facility]2022-10-16 09:37:00 Test Item Value Reference Range Interpretation Comments Alk Phos (test code = Alk Phos) 118 39-136 [place] 786342-10-16 09:37:00 Test Item Value Reference Range Interpretation Comments Bili Total (test code = Bili Total) 0.4 0.2-1.3 [place] 786342-10-16 09:37:00 Test Item Value Reference Range Interpretation Comments AGAP (test code = AGAP) 11.7 10.0-20.0 [place] [address]-10-16 09:37:00 Test Item Value Reference Range Interpretation Comments B/C Ratio (test code = B/C Ratio) 19 1 6-25 [place] 786342-10-16 09:37:00 Test Item Value Reference Range Interpretation Comments Globulin (test code = Globulin) 4.5 2.7-4.2 [facility]2022-10-16 09:37:00 Test Item Value Reference Range Interpretation Comments A/G Ratio (test code = A/G Ratio) 0.7 1 0.7-1.6 [place] 786342-10-16 09:37:00 Test Item Value Reference Range Interpretation Comments eGFR (test code = eGFR) 105 [facility]2022-10-16 09:37:00 Test Item Value Reference Range Interpretation Comments Phosphorus (test code = Phosphorus) 3.7 2.5-4.5 [place] 786342-10-16 09:37:00 Test Item Value Reference Range Interpretation Comments Magnesium Lvl (test code = Magnesium 2.1 1.8-2.4 Lvl) [facility]KlcjgtyDFOOYZIZP1004-87-13 09:37:00 Test Item Value Reference Range Interpretation Comments Procalcitonin Lvl (test no gt See_Comment [Au tomated message] code = Procalcitonin Lvl) Th e system which generated this result transmitted ref erence range: <=0.10. The reference range was not used to interpr et this result as normal/abnormal . [facility] 09:37:00 Test Item Value Reference Range Interpretation Comments WBC (test code = WBC) 15.7 3.7-10.4 [place] [address]-10-16 09:37:00 Test Item Value Reference Range Interpretation Comments RBC (test code = RBC) 4.10 4.20-5.40 [place] 786342-10-16 09:37:00 Test Item Value Reference Range Interpretation Comments Procalcitonin Lvl (test no gt See_Comment [Au tomated message] code = Procalcitonin Lvl) Th e system which generated this result transmitted ref erence range: <=0.10. The reference range was not used to interpr et this result as normal/abnormal . [place] 786342-10-16 09:37:00 Test Item Value Reference Range Interpretation Comments Glucose Lvl (test code = Glucose Lvl) 103 70-99 [place] 439852-10-16 09:37:00 Test Item Value Reference Range Interpretation Comments Hgb (test code = Hgb) 10.7 12.0-16.0 [place] 786342-10-16 09:37:00 Test Item Value Reference Range Interpretation Comments BUN (test code = BUN) 13 7-22 [place] 786342-10-16 09:37:00 Test Item Value Reference Range Interpretation Comments Creatinine Lvl (test code = Creatinine 0.67 0.50-1.40 Lvl) [place] 786342-10-16 09:37:00 Test Item Value Reference Range Interpretation Comments Sodium Lvl (test code = Sodium Lvl) 138 135-145 [place] 786342-10-16 09:37:00 Test Item Value Reference Range Interpretation Comments Potassium Lvl (test code = Potassium 3.7 3.5-5.1 Lvl) [place] 786342-10-16 09:37:00 Test Item Value Reference Range Interpretation Comments Chloride Lvl (test code = Chloride Lvl) 98 95-109 [place] 786342-10-16 09:37:00 Test Item Value Reference Range Interpretation Comments CO2 (test code = CO2) 32 24-32 [place] 786342-10-16 09:37:00 Test Item Value Reference Range Interpretation Comments Calcium Lvl (test code = Calcium Lvl) 9.3 8.5-10.5 [place] 786342-10-16 09:37:00 Test Item Value Reference Range Interpretation Comments Total Protein (test code = Total 7.5 6.4-8.4 Protein) [place] [address]-10-16 09:37:00 Test Item Value Reference Range Interpretation Comments Albumin Lvl (test code = Albumin Lvl) 3.0 3.5-5.0 [place] 786342-10-16 09:37:00 Test Item Value Reference Range Interpretation Comments ALT (test code = ALT) 18 See_Comment [Auto mated message] The system which ge nerated this result transmit fabiano reference range : <=65. The reference range was not used to interpr et this result as aleks l/abnormal. [facility] CenterOsoiudeEZBXTTENUH0467-68-36 09:37:00 Test Item Value Reference Range Interpretation Comments Hct (test code = Hct) 32.8 36.0-48.0 [place] 786342-10-16 09:37:00 Test Item Value Reference Range Interpretation Comments AST (test code = AST) 6 See_Comment [Auto mated message] The system which ge nerated this result transmit fabiano reference range : <=37. The reference range was not used to interpr et this result as aleks l/abnormal. [place] 786342-10-16 09:37:00 Test Item Value Reference Range Interpretation Comments Alk Phos (test code = Alk Phos) 118 39-136 [place] 786342-10-16 09:37:00 Test Item Value Reference Range Interpretation Comments Bili Total (test code = Bili Total) 0.4 0.2-1.3 [place] [address]-10-16 09:37:00 Test Item Value Reference Range Interpretation Comments AGAP (test code = AGAP) 11.7 10.0-20.0 [facility] [id number] 09:37:00 Test Item Value Reference Range Interpretation Comments B/C Ratio (test code = B/C Ratio) 19 1 6-25 [place] [address]-10-16 09:37:00 Test Item Value Reference Range Interpretation Comments Globulin (test code = Globulin) 4.5 2.7-4.2 [facility] [id number] 09:37:00 Test Item Value Reference Range Interpretation Comments A/G Ratio (test code = A/G Ratio) 0.7 1 0.7-1.6 [place] 786342-10-16 09:37:00 Test Item Value Reference Range Interpretation Comments eGFR (test code = eGFR) 105 [facility]2022-10-16 09:37:00 Test Item Value Reference Range Interpretation Comments Phosphorus (test code = Phosphorus) 3.7 2.5-4.5 [place] 786342-10-16 09:37:00 Test Item Value Reference Range Interpretation Comments Magnesium Lvl (test code = Magnesium 2.1 1.8-2.4 Lvl) [facility] CenterFehhecqBYENRLQTIW7228-25-64 09:37:00 Test Item Value Reference Range Interpretation Comments MCV (test code = MCV) 80.0 80.0-98.0 [place] 675862-10-16 09:37:00 Test Item Value Reference Range Interpretation Comments Procalcitonin Lvl (test no gt See_Comment [Au tomated message] code = Procalcitonin Lvl) Th e system which generated this result transmitted ref erence range: <=0.10. The reference range was not used to interpr et this result as normal/abnormal . [facility] CenterNfktciwHDCREKXZPT2421-00-68 09:37:00 Test Item Value Reference Range Interpretation Comments WBC (test code = WBC) 15.7 3.7-10.4 [facility] CenterRszoxqxMDNMQGJYRM3596-86-26 09:37:00 Test Item Value Reference Range Interpretation Comments RBC (test code = RBC) 4.10 4.20-5.40 [facility] CenterAbvmarjFGQLSNKVMY0857-56-98 09:37:00 Test Item Value Reference Range Interpretation Comments Hgb (test code = Hgb) 10.7 12.0-16.0 [place] 439852-10-16 09:37:00 Test Item Value Reference Range Interpretation Comments Hct (test code = Hct) 32.8 36.0-48.0 [place] 439852-10-16 09:37:00 Test Item Value Reference Range Interpretation Comments MCV (test code = MCV) 80.0 80.0-98.0 [place] 439852-10-16 09:37:00 Test Item Value Reference Range Interpretation Comments MCH (test code = MCH) 26.1 pg 27.0-31.0 [place] 439852-10-16 09:37:00 Test Item Value Reference Range Interpretation Comments MCHC (test code = MCHC) 32.6 32.0-36.0 [place] 439852-10-16 09:37:00 Test Item Value Reference Range Interpretation Comments RDW (test code = RDW) 16.4 11.5-14.5 [place] 439852-10-16 09:37:00 Test Item Value Reference Range Interpretation Comments Platelet (test code = Platelet) 362 133-450 [facility] CenterGfhzjywXUEAQDPCUK5773-08-42 09:37:00 Test Item Value Reference Range Interpretation Comments MCH (test code = MCH) 26.1 pg 27.0-31.0 [place] 439852-10-16 09:37:00 Test Item Value Reference Range Interpretation Comments MPV (test code = MPV) 8.1 7.4-10.4 [place] 439852-10-16 09:37:00 Test Item Value Reference Range Interpretation Comments Segs (test code = Segs) 76.4 45.0-75.0 [place] 439852-10-16 09:37:00 Test Item Value Reference Range Interpretation Comments Lymphocytes (test code = Lymphocytes) 13.3 20.0-40.0 [place] 439852-10-16 09:37:00 Test Item Value Reference Range Interpretation Comments Monocytes (test code = Monocytes) 5.7 2.0-12.0 [place] 439852-10-16 09:37:00 Test Item Value Reference Range Interpretation Comments Eosinophils (test code = 3.7 See_Comment [A utomated message] The Eosinophils) system which ge nerated this result tra nsmitted reference range : <=4.0. The reference r quynh was not used to int erpret this result as normal/abnormal . [place] 439852-10-16 09:37:00 Test Item Value Reference Range Interpretation Comments Basophils (test code = 0.9 See_Comment [Aut omated message] The Basophils) system which ge nerated this result tra nsmitted reference range : <=1.0. The reference r quynh was not used to int erpret this result as normal/abnormal . [place] 439852-10-16 09:37:00 Test Item Value Reference Range Interpretation Comments Neutrophils # (test code = Neutrophils 12.0 1.5-8.1 #) [facility] CenterPwemxjlXZZBZGQCRN3590-66-72 09:37:00 Test Item Value Reference Range Interpretation Comments Lymphocytes # (test code = Lymphocytes 2.1 1.0-5.5 #) [facility] CenterPlxvicjTBBGKBDIZU2971-01-96 09:37:00 Test Item Value Reference Range Interpretation Comments Monocytes # (test code 0.9 See_Comment [Aut omated message] The = Monocytes #) system which generated this result tra nsmitted reference range : <=0.8. The reference r quynh was not used to int erpret this result as normal/abnormal . [facility] CenterYubejzcOACBJYALMV9741-93-80 09:37:00 Test Item Value Reference Range Interpretation Comments Eosinophils # (test code 0.6 See_Comment [A utomated message] The = Eosinophils #) system whic h generated this result tra nsmitted reference range : <=0.5. The reference r quynh was not used to int erpret this result as normal/abnormal . [facility] CenterWkqvsolZBGUSVZSID1478-10-89 09:37:00 Test Item Value Reference Range Interpretation Comments MCHC (test code = MCHC) 32.6 32.0-36.0 [facility] CenterFaawgxlJXBYJJHNCY8963-19-74 09:37:00 Test Item Value Reference Range Interpretation Comments Basophils # (test code 0.1 See_Comment [Aut omated message] The = Basophils #) system which generated this result tra nsmitted reference range : <=0.2. The reference r quynh was not used to int erpret this result as normal/abnormal . [facility] CenterQsivhakAHJNRBMOPP2626-39-11 09:37:00 Test Item Value Reference Range Interpretation Comments RDW (test code = RDW) 16.4 11.5-14.5 [facility] CenterFekcjzpARUSNDQCFA7389-51-41 09:37:00 Test Item Value Reference Range Interpretation Comments Platelet (test code = Platelet) 362 133-450 [facility] CenterZxyslonLXMWGKJOYZ7381-25-48 09:37:00 Test Item Value Reference Range Interpretation Comments MPV (test code = MPV) 8.1 7.4-10.4 [facility] CenterIpigfupDAFWOLDPNK7921-35-43 09:37:00 Test Item Value Reference Range Interpretation Comments Segs (test code = Segs) 76.4 45.0-75.0 [place] [address]-10-16 09:37:00 Test Item Value Reference Range Interpretation Comments Lymphocytes (test code = Lymphocytes) 13.3 20.0-40.0 [place] [address]-10-16 09:37:00 Test Item Value Reference Range Interpretation Comments Monocytes (test code = Monocytes) 5.7 2.0-12.0 [place] [address]-10-16 09:37:00 Test Item Value Reference Range Interpretation Comments Eosinophils (test code = 3.7 See_Comment [A utomated message] The Eosinophils) system which ge nerated this result tra nsmitted reference range : <=4.0. The reference r quynh was not used to int erpret this result as normal/abnormal . [address]10-16 09:37:00 Test Item Value Reference Range Interpretation Comments Basophils (test code = 0.9 See_Comment [Aut omated message] The Basophils) system which ge nerated this result tra nsmitted reference range : <=1.0. The reference r quynh was not used to int erpret this result as normal/abnormal . [place] [address]-10-16 09:37:00 Test Item Value Reference Range Interpretation Comments Neutrophils # (test code = Neutrophils 12.0 1.5-8.1 #) [address]10-16 09:37:00 Test Item Value Reference Range Interpretation Comments Lymphocytes # (test code = Lymphocytes 2.1 1.0-5.5 #) [place] [address]-10-16 09:37:00 Test Item Value Reference Range Interpretation Comments Monocytes # (test code 0.9 See_Comment [Aut omated message] The = Monocytes #) system which generated this result tra nsmitted reference range : <=0.8. The reference r quynh was not used to int erpret this result as normal/abnormal . [place] [address]-10-16 09:37:00 Test Item Value Reference Range Interpretation Comments Eosinophils # (test code 0.6 See_Comment [A utomated message] The = Eosinophils #) system whic h generated this result tra nsmitted reference range : <=0.5. The reference r quynh was not used to int erpret this result as normal/abnormal . [facility] CenterGgowhabIGJMROEPKS6205-10-54 09:37:00 Test Item Value Reference Range Interpretation Comments Basophils # (test code 0.1 See_Comment [Aut omated message] The = Basophils #) system which generated this result tra nsmitted reference range : <=0.2. The reference r quynh was not used to int erpret this result as normal/abnormal . [place] 786342-10-16 09:37:00 Test Item Value Reference Range Interpretation Comments Procalcitonin Lvl (test no gt See_Comment [Au tomated message] code = Procalcitonin Lvl) Th e system which generated this result transmitted ref erence range: <=0.10. The reference range was not used to interpr et this result as normal/abnormal . [place] 786342-10-16 09:37:00 Test Item Value Reference Range Interpretation Comments Glucose Lvl (test code = Glucose Lvl) 103 70-99 [place] 786342-10-16 09:37:00 Test Item Value Reference Range Interpretation Comments BUN (test code = BUN) 13 7-22 [place] 786342-10-16 09:37:00 Test Item Value Reference Range Interpretation Comments Creatinine Lvl (test code = Creatinine 0.67 0.50-1.40 Lvl) [place] 786342-10-16 09:37:00 Test Item Value Reference Range Interpretation Comments Sodium Lvl (test code = Sodium Lvl) 138 135-145 [facility] [id number] 09:37:00 Test Item Value Reference Range Interpretation Comments Potassium Lvl (test code = Potassium 3.7 3.5-5.1 Lvl) [facility]NetevenJ[facility] [id number] 09:37:00 Test Item Value Reference Range Interpretation Comments Chloride Lvl (test code = Chloride Lvl) 98 95-109 [facility] [id number] 09:37:00 Test Item Value Reference Range Interpretation Comments CO2 (test code = CO2) 32 24-32 [place] 786342-10-16 09:37:00 Test Item Value Reference Range Interpretation Comments Calcium Lvl (test code = Calcium Lvl) 9.3 8.5-10.5 [facility] [id number] 09:37:00 Test Item Value Reference Range Interpretation Comments Total Protein (test code = Total 7.5 6.4-8.4 Protein) [facility] [employer] [id number] 09:37:00 Test Item Value Reference Range Interpretation Comments Albumin Lvl (test code = Albumin Lvl) 3.0 3.5-5.0 [facility] [employer] [id number] 09:37:00 Test Item Value Reference Range Interpretation Comments ALT (test code = ALT) 18 See_Comment [Auto mated message] The system which ge nerated this result transmit fabiano reference range : <=65. The reference range was not used to interpr et this result as aleks l/abnormal. [facility] [employer] [id number] 09:37:00 Test Item Value Reference Range Interpretation Comments AST (test code = AST) 6 See_Comment [Auto mated message] The system which ge nerated this result transmit fabiano reference range : <=37. The reference range was not used to interpr et this result as aleks l/abnormal. [facility] [employer] [id number] 09:37:00 Test Item Value Reference Range Interpretation Comments Alk Phos (test code = Alk Phos) 118 39-136 [facility] [employer] [id number] 09:37:00 Test Item Value Reference Range Interpretation Comments Bili Total (test code = Bili Total) 0.4 0.2-1.3 [facility] [employer] [id number] 09:37:00 Test Item Value Reference Range Interpretation Comments AGAP (test code = AGAP) 11.7 10.0-20.0 [facility] [employer] [id number] 09:37:00 Test Item Value Reference Range Interpretation Comments B/C Ratio (test code = B/C Ratio) 19 1 6-25 [facility] [employer] [id number] 09:37:00 Test Item Value Reference Range Interpretation Comments Globulin (test code = Globulin) 4.5 2.7-4.2 [facility] [employer] [id number] 09:37:00 Test Item Value Reference Range Interpretation Comments A/G Ratio (test code = A/G Ratio) 0.7 1 0.7-1.6 [facility] [employer] [id number] 09:37:00 Test Item Value Reference Range Interpretation Comments eGFR (test code = eGFR) 105 [facility] [id number] 09:37:00 Test Item Value Reference Range Interpretation Comments Phosphorus (test code = Phosphorus) 3.7 2.5-4.5 [facility] [id number] 09:37:00 Test Item Value Reference Range Interpretation Comments Magnesium Lvl (test code = Magnesium 2.1 1.8-2.4 Lvl) [place] 675862-10-16 09:37:00 Test Item Value Reference Range Interpretation Comments Procalcitonin Lvl (test no gt See_Comment [Au tomated message] code = Procalcitonin Lvl) Th e system which generated this result transmitted ref erence range: <=0.10. The reference range was not used to interpr et this result as normal/abnormal . [place] [address]-10-16 09:37:00 Test Item Value Reference Range Interpretation Comments WBC (test code = WBC) 15.7 3.7-10.4 [place] 439852-10-16 09:37:00 Test Item Value Reference Range Interpretation Comments RBC (test code = RBC) 4.10 4.20-5.40 [place] [address]-10-16 09:37:00 Test Item Value Reference Range Interpretation Comments Hgb (test code = Hgb) 10.7 12.0-16.0 [place] [address]-10-16 09:37:00 Test Item Value Reference Range Interpretation Comments Hct (test code = Hct) 32.8 36.0-48.0 [place] [address]-10-16 09:37:00 Test Item Value Reference Range Interpretation Comments MCV (test code = MCV) 80.0 80.0-98.0 [place] [address]-10-16 09:37:00 Test Item Value Reference Range Interpretation Comments MCH (test code = MCH) 26.1 pg 27.0-31.0 [place] [address]-10-16 09:37:00 Test Item Value Reference Range Interpretation Comments MCHC (test code = MCHC) 32.6 32.0-36.0 [place] [address]-10-16 09:37:00 Test Item Value Reference Range Interpretation Comments RDW (test code = RDW) 16.4 11.5-14.5 [place] [address]-10-16 09:37:00 Test Item Value Reference Range Interpretation Comments Platelet (test code = Platelet) 362 133-450 [place] 439852-10-16 09:37:00 Test Item Value Reference Range Interpretation Comments MPV (test code = MPV) 8.1 7.4-10.4 [place] 439852-10-16 09:37:00 Test Item Value Reference Range Interpretation Comments Segs (test code = Segs) 76.4 45.0-75.0 [place] [address]-10-16 09:37:00 Test Item Value Reference Range Interpretation Comments Lymphocytes (test code = Lymphocytes) 13.3 20.0-40.0 [place] [address]-10-16 09:37:00 Test Item Value Reference Range Interpretation Comments Monocytes (test code = Monocytes) 5.7 2.0-12.0 [place] [address]-10-16 09:37:00 Test Item Value Reference Range Interpretation Comments Eosinophils (test code = 3.7 See_Comment [A utomated message] The Eosinophils) system which ge nerated this result tra nsmitted reference range : <=4.0. The reference r quynh was not used to int erpret this result as normal/abnormal . [place] [address]-10-16 09:37:00 Test Item Value Reference Range Interpretation Comments Basophils (test code = 0.9 See_Comment [Aut omated message] The Basophils) system which ge nerated this result tra nsmitted reference range : <=1.0. The reference r quynh was not used to int erpret this result as normal/abnormal . [facility] CenterEaxfuptVAOZRBCKCW1584-53-45 09:37:00 Test Item Value Reference Range Interpretation Comments Neutrophils # (test code = Neutrophils 12.0 1.5-8.1 #) [place] [address]-10-16 09:37:00 Test Item Value Reference Range Interpretation Comments Lymphocytes # (test code = Lymphocytes 2.1 1.0-5.5 #) [place] [address]-10-16 09:37:00 Test Item Value Reference Range Interpretation Comments Monocytes # (test code 0.9 See_Comment [Aut omated message] The = Monocytes #) system which generated this result tra nsmitted reference range : <=0.8. The reference r quynh was not used to int erpret this result as normal/abnormal . [place] [address]-10-16 09:37:00 Test Item Value Reference Range Interpretation Comments Eosinophils # (test code 0.6 See_Comment [A utomated message] The = Eosinophils #) system whic h generated this result tra nsmitted reference range : <=0.5. The reference r quynh was not used to int erpret this result as normal/abnormal . [place] [address]-10-16 09:37:00 Test Item Value Reference Range Interpretation Comments Basophils # (test code 0.1 See_Comment [Aut omated message] The = Basophils #) system which generated this result tra nsmitted reference range : <=0.2. The reference r quyhn was not used to int erpret this result as normal/abnormal . [facility] [id number] 09:37:00 Test Item Value Reference Range Interpretation Comments Procalcitonin Lvl (test no gt See_Comment [Au tomated message] code = Procalcitonin Lvl) Th e system which generated this result transmitted ref erence range: <=0.10. The reference range was not used to interpr et this result as normal/abnormal . [facility] [id number] 09:37:00 Test Item Value Reference Range Interpretation Comments Glucose Lvl (test code = Glucose Lvl) 103 70-99 [facility] [id number] 09:37:00 Test Item Value Reference Range Interpretation Comments BUN (test code = BUN) 13 7-22 [facility] [id number] 09:37:00 Test Item Value Reference Range Interpretation Comments Creatinine Lvl (test code = Creatinine 0.67 0.50-1.40 Lvl) [facility] [id number] 09:37:00 Test Item Value Reference Range Interpretation Comments Sodium Lvl (test code = Sodium Lvl) 138 135-145 [facility] [id number] 09:37:00 Test Item Value Reference Range Interpretation Comments Potassium Lvl (test code = Potassium 3.7 3.5-5.1 Lvl) [facility] SOLFK1460-10-11 09:37:00 Test Item Value Reference Range Interpretation Comments Chloride Lvl (test code = Chloride Lvl) 98 95-109 [place] 786342-10-16 09:37:00 Test Item Value Reference Range Interpretation Comments CO2 (test code = CO2) 32 24-32 [place] [address]-10-16 09:37:00 Test Item Value Reference Range Interpretation Comments Calcium Lvl (test code = Calcium Lvl) 9.3 8.5-10.5 [place] [address]-10-16 09:37:00 Test Item Value Reference Range Interpretation Comments Total Protein (test code = Total 7.5 6.4-8.4 Protein) [place] [address]-10-16 09:37:00 Test Item Value Reference Range Interpretation Comments Albumin Lvl (test code = Albumin Lvl) 3.0 3.5-5.0 [place] 786342-10-16 09:37:00 Test Item Value Reference Range Interpretation Comments ALT (test code = ALT) 18 See_Comment [Auto mated message] The system which ge nerated this result transmit fabiano reference range : <=65. The reference range was not used to interpr et this result as aleks l/abnormal. [place] [address]-10-16 09:37:00 Test Item Value Reference Range Interpretation Comments AST (test code = AST) 6 See_Comment [Auto mated message] The system which ge nerated this result transmit fabiano reference range : <=37. The reference range was not used to interpr et this result as aleks l/abnormal. [place] 786342-10-16 09:37:00 Test Item Value Reference Range Interpretation Comments Alk Phos (test code = Alk Phos) 118 39-136 [place] [address]-10-16 09:37:00 Test Item Value Reference Range Interpretation Comments Bili Total (test code = Bili Total) 0.4 0.2-1.3 [place] [address]-10-16 09:37:00 Test Item Value Reference Range Interpretation Comments AGAP (test code = AGAP) 11.7 10.0-20.0 [place] [address]-10-16 09:37:00 Test Item Value Reference Range Interpretation Comments B/C Ratio (test code = B/C Ratio) 19 1 6-25 [place] [address]-10-16 09:37:00 Test Item Value Reference Range Interpretation Comments Globulin (test code = Globulin) 4.5 2.7-4.2 [place] [address]-10-16 09:37:00 Test Item Value Reference Range Interpretation Comments A/G Ratio (test code = A/G Ratio) 0.7 1 0.7-1.6 [place] [address]-10-16 09:37:00 Test Item Value Reference Range Interpretation Comments eGFR (test code = eGFR) 105 [place] [address]-10-16 09:37:00 Test Item Value Reference Range Interpretation Comments Phosphorus (test code = Phosphorus) 3.7 2.5-4.5 [place] 786342-10-16 09:37:00 Test Item Value Reference Range Interpretation Comments Magnesium Lvl (test code = Magnesium 2.1 1.8-2.4 Lvl) [place] 675862-10-16 09:37:00 Test Item Value Reference Range Interpretation Comments Procalcitonin Lvl (test no gt See_Comment [Au tomated message] code = Procalcitonin Lvl) Th e system which generated this result transmitted ref erence range: <=0.10. The reference range was not used to interpr et this result as normal/abnormal . [place] 439852-10-16 09:37:00 Test Item Value Reference Range Interpretation Comments WBC (test code = WBC) 15.7 3.7-10.4 [place] 439852-10-16 09:37:00 Test Item Value Reference Range Interpretation Comments RBC (test code = RBC) 4.10 4.20-5.40 [place] [address]-10-16 09:37:00 Test Item Value Reference Range Interpretation Comments Hgb (test code = Hgb) 10.7 12.0-16.0 [place] [address]-10-16 09:37:00 Test Item Value Reference Range Interpretation Comments Hct (test code = Hct) 32.8 36.0-48.0 [place] [address]-10-16 09:37:00 Test Item Value Reference Range Interpretation Comments MCV (test code = MCV) 80.0 80.0-98.0 [place] [address]-10-16 09:37:00 Test Item Value Reference Range Interpretation Comments MCH (test code = MCH) 26.1 pg 27.0-31.0 [facility] CenterCuxfctzYRORSURXUI9349-81-38 09:37:00 Test Item Value Reference Range Interpretation Comments MCHC (test code = MCHC) 32.6 32.0-36.0 [facility] CenterYyxlqnjXJPVSYOGYC9760-65-11 09:37:00 Test Item Value Reference Range Interpretation Comments RDW (test code = RDW) 16.4 11.5-14.5 [place] 439852-10-16 09:37:00 Test Item Value Reference Range Interpretation Comments Platelet (test code = Platelet) 362 133-450 [facility] CenterVpfrxvxZTGTZDUYSL4540-44-16 09:37:00 Test Item Value Reference Range Interpretation Comments MPV (test code = MPV) 8.1 7.4-10.4 [facility] CenterGvtsxveTVGLWGXXGF5023-07-89 09:37:00 Test Item Value Reference Range Interpretation Comments Segs (test code = Segs) 76.4 45.0-75.0 [place] 439852-10-16 09:37:00 Test Item Value Reference Range Interpretation Comments Lymphocytes (test code = Lymphocytes) 13.3 20.0-40.0 [facility] CenterDkxxtilTHVHLYJXEA6371-64-08 09:37:00 Test Item Value Reference Range Interpretation Comments Monocytes (test code = Monocytes) 5.7 2.0-12.0 [facility] CenterSyatjkuLPUHPMALQR5835-16-10 09:37:00 Test Item Value Reference Range Interpretation Comments Eosinophils (test code = 3.7 See_Comment [A utomated message] The Eosinophils) system which ge nerated this result tra nsmitted reference range : <=4.0. The reference r quynh was not used to int erpret this result as normal/abnormal . [place] 439852-10-16 09:37:00 Test Item Value Reference Range Interpretation Comments Basophils (test code = 0.9 See_Comment [Aut omated message] The Basophils) system which ge nerated this result tra nsmitted reference range : <=1.0. The reference r quynh was not used to int erpret this result as normal/abnormal . [place] 439852-10-16 09:37:00 Test Item Value Reference Range Interpretation Comments Neutrophils # (test code = Neutrophils 12.0 1.5-8.1 #) [place] [address]-10-16 09:37:00 Test Item Value Reference Range Interpretation Comments Lymphocytes # (test code = Lymphocytes 2.1 1.0-5.5 #) [place] [address]-10-16 09:37:00 Test Item Value Reference Range Interpretation Comments Monocytes # (test code 0.9 See_Comment [Aut omated message] The = Monocytes #) system which generated this result tra nsmitted reference range : <=0.8. The reference r quynh was not used to int erpret this result as normal/abnormal . [place] [address]-10-16 09:37:00 Test Item Value Reference Range Interpretation Comments Eosinophils # (test code 0.6 See_Comment [A utomated message] The = Eosinophils #) system whic h generated this result tra nsmitted reference range : <=0.5. The reference r quynh was not used to int erpret this result as normal/abnormal . [place] [address]-10-16 09:37:00 Test Item Value Reference Range Interpretation Comments Basophils # (test code 0.1 See_Comment [Aut omated message] The = Basophils #) system which generated this result tra nsmitted reference range : <=0.2. The reference r quynh was not used to int erpret this result as normal/abnormal . [place] [address]-10-16 09:37:00 Test Item Value Reference Range Interpretation Comments Procalcitonin Lvl (test no gt See_Comment [Au tomated message] code = Procalcitonin Lvl) Th e system which generated this result transmitted ref erence range: <=0.10. The reference range was not used to interpr et this result as normal/abnormal . [place] [address]-10-16 09:37:00 Test Item Value Reference Range Interpretation Comments Glucose Lvl (test code = Glucose Lvl) 103 70-99 [place] [address]-10-16 09:37:00 Test Item Value Reference Range Interpretation Comments BUN (test code = BUN) 13 7-22 [place] [address]-10-16 09:37:00 Test Item Value Reference Range Interpretation Comments Creatinine Lvl (test code = Creatinine 0.67 0.50-1.40 Lvl) [place] 786342-10-16 09:37:00 Test Item Value Reference Range Interpretation Comments Sodium Lvl (test code = Sodium Lvl) 138 135-145 [place] 786342-10-16 09:37:00 Test Item Value Reference Range Interpretation Comments Potassium Lvl (test code = Potassium 3.7 3.5-5.1 Lvl) [place] 786342-10-16 09:37:00 Test Item Value Reference Range Interpretation Comments Chloride Lvl (test code = Chloride Lvl) 98 95-109 [place] 786342-10-16 09:37:00 Test Item Value Reference Range Interpretation Comments CO2 (test code = CO2) 32 24-32 [place] 786342-10-16 09:37:00 Test Item Value Reference Range Interpretation Comments Calcium Lvl (test code = Calcium Lvl) 9.3 8.5-10.5 [place] 786342-10-16 09:37:00 Test Item Value Reference Range Interpretation Comments Total Protein (test code = Total 7.5 6.4-8.4 Protein) [place] 786342-10-16 09:37:00 Test Item Value Reference Range Interpretation Comments Albumin Lvl (test code = Albumin Lvl) 3.0 3.5-5.0 [place] 786342-10-16 09:37:00 Test Item Value Reference Range Interpretation Comments ALT (test code = ALT) 18 See_Comment [Auto mated message] The system which ge nerated this result transmit fabiano reference range : <=65. The reference range was not used to interpr et this result as aleks l/abnormal. [place] [address]-10-16 09:37:00 Test Item Value Reference Range Interpretation Comments AST (test code = AST) 6 See_Comment [Auto mated message] The system which ge nerated this result transmit fabiano reference range : <=37. The reference range was not used to interpr et this result as aleks l/abnormal. [place] [address]-10-16 09:37:00 Test Item Value Reference Range Interpretation Comments Alk Phos (test code = Alk Phos) 118 39-136 [place] 786342-10-16 09:37:00 Test Item Value Reference Range Interpretation Comments Bili Total (test code = Bili Total) 0.4 0.2-1.3 [place] 786342-10-16 09:37:00 Test Item Value Reference Range Interpretation Comments AGAP (test code = AGAP) 11.7 10.0-20.0 [place] 786342-10-16 09:37:00 Test Item Value Reference Range Interpretation Comments B/C Ratio (test code = B/C Ratio) 19 1 6-25 [place] 786342-10-16 09:37:00 Test Item Value Reference Range Interpretation Comments Globulin (test code = Globulin) 4.5 2.7-4.2 [place] 786342-10-16 09:37:00 Test Item Value Reference Range Interpretation Comments A/G Ratio (test code = A/G Ratio) 0.7 1 0.7-1.6 [place] [address]-10-16 09:37:00 Test Item Value Reference Range Interpretation Comments eGFR (test code = eGFR) 105 [facility]2022-10-16 09:37:00 Test Item Value Reference Range Interpretation Comments Phosphorus (test code = Phosphorus) 3.7 2.5-4.5 [place] 786342-10-16 09:37:00 Test Item Value Reference Range Interpretation Comments Magnesium Lvl (test code = Magnesium 2.1 1.8-2.4 Lvl) [place] 675862-10-16 09:37:00 Test Item Value Reference Range Interpretation Comments Procalcitonin Lvl (test no gt See_Comment [Au tomated message] code = Procalcitonin Lvl) e system which generated this result transmitted ref erence range: <=0.10. The reference range was not used to interpr et this result as normal/abnormal . [facility] CenterIavvelrKCABVZQJLF6153-97-57 09:37:00 Test Item Value Reference Range Interpretation Comments WBC (test code = WBC) 15.7 3.7-10.4 [place] [address]-10-16 09:37:00 Test Item Value Reference Range Interpretation Comments RBC (test code = RBC) 4.10 4.20-5.40 [place] 439852-10-16 09:37:00 Test Item Value Reference Range Interpretation Comments Hgb (test code = Hgb) 10.7 12.0-16.0 [place] 439852-10-16 09:37:00 Test Item Value Reference Range Interpretation Comments Hct (test code = Hct) 32.8 36.0-48.0 [place] 439852-10-16 09:37:00 Test Item Value Reference Range Interpretation Comments MCV (test code = MCV) 80.0 80.0-98.0 [facility] CenterZvwvpqhIXATDDSRSI8247-88-92 09:37:00 Test Item Value Reference Range Interpretation Comments MCH (test code = MCH) 26.1 pg 27.0-31.0 [facility] CenterFstqxvcKHUXEAKCHC8908-80-18 09:37:00 Test Item Value Reference Range Interpretation Comments MCHC (test code = MCHC) 32.6 32.0-36.0 [facility] CenterPwojinkNTIAVKKCAT0379-92-11 09:37:00 Test Item Value Reference Range Interpretation Comments RDW (test code = RDW) 16.4 11.5-14.5 [facility] CenterKuozzpnPJDUQVDUSE8595-07-43 09:37:00 Test Item Value Reference Range Interpretation Comments Platelet (test code = Platelet) 362 133-450 [facility] CenterIzoxbysYOUPWVMGLS0427-30-37 09:37:00 Test Item Value Reference Range Interpretation Comments MPV (test code = MPV) 8.1 7.4-10.4 [place] 439852-10-16 09:37:00 Test Item Value Reference Range Interpretation Comments Segs (test code = Segs) 76.4 45.0-75.0 [facility] CenterWkisdpmSXVLFIHUFM1565-08-62 09:37:00 Test Item Value Reference Range Interpretation Comments Lymphocytes (test code = Lymphocytes) 13.3 20.0-40.0 [facility] CenterWaxqwbsAOEEZXPVZR6306-71-02 09:37:00 Test Item Value Reference Range Interpretation Comments Monocytes (test code = Monocytes) 5.7 2.0-12.0 [facility] CenterRtosslpXEYZCVKMSO1711-53-18 09:37:00 Test Item Value Reference Range Interpretation Comments Eosinophils (test code = 3.7 See_Comment [A utomated message] The Eosinophils) system which ge nerated this result tra nsmitted reference range : <=4.0. The reference r quynh was not used to int erpret this result as normal/abnormal . [facility] CenterXqzufuqBTFFLGUFQG0483-67-52 09:37:00 Test Item Value Reference Range Interpretation Comments Basophils (test code = 0.9 See_Comment [Aut omated message] The Basophils) system which ge nerated this result tra nsmitted reference range : <=1.0. The reference r quynh was not used to int erpret this result as normal/abnormal . [facility] CenterQnrwosoVDUYWMAKHQ9343-35-02 09:37:00 Test Item Value Reference Range Interpretation Comments Neutrophils # (test code = Neutrophils 12.0 1.5-8.1 #) [facility] CenterEdaeoedEGEJLRWESQ3112-71-01 09:37:00 Test Item Value Reference Range Interpretation Comments Lymphocytes # (test code = Lymphocytes 2.1 1.0-5.5 #) [facility] CenterRxonvewQORGLREAIJ9838-73-79 09:37:00 Test Item Value Reference Range Interpretation Comments Monocytes # (test code 0.9 See_Comment [Aut omated message] The = Monocytes #) system which generated this result tra nsmitted reference range : <=0.8. The reference r quynh was not used to int erpret this result as normal/abnormal . [facility] CenterYtafiwiWPYGHDPVSO8207-03-61 09:37:00 Test Item Value Reference Range Interpretation Comments Eosinophils # (test code 0.6 See_Comment [A utomated message] The = Eosinophils #) system whic h generated this result tra nsmitted reference range : <=0.5. The reference r quynh was not used to int erpret this result as normal/abnormal . [facility] CenterRpleuqjBAVMCGHIKV3846-07-69 09:37:00 Test Item Value Reference Range Interpretation Comments Basophils # (test code 0.1 See_Comment [Aut omated message] The = Basophils #) system which generated this result tra nsmitted reference range : <=0.2. The reference r quynh was not used to int erpret this result as normal/abnormal . [facility]2022-10-16 09:37:00 Test Item Value Reference Range Interpretation Comments Procalcitonin Lvl (test no gt See_Comment [Au tomated message] code = Procalcitonin Lvl) Th e system which generated this result transmitted ref erence range: <=0.10. The reference range was not used to interpr et this result as normal/abnormal . [place] 786342-10-16 09:37:00 Test Item Value Reference Range Interpretation Comments Glucose Lvl (test code = Glucose Lvl) 103 70-99 [place] 786342-10-16 09:37:00 Test Item Value Reference Range Interpretation Comments BUN (test code = BUN) 13 7-22 [place] 786342-10-16 09:37:00 Test Item Value Reference Range Interpretation Comments Creatinine Lvl (test code = Creatinine 0.67 0.50-1.40 Lvl) [place] 786342-10-16 09:37:00 Test Item Value Reference Range Interpretation Comments Sodium Lvl (test code = Sodium Lvl) 138 135-145 [place] 786342-10-16 09:37:00 Test Item Value Reference Range Interpretation Comments Potassium Lvl (test code = Potassium 3.7 3.5-5.1 Lvl) [place] 786342-10-16 09:37:00 Test Item Value Reference Range Interpretation Comments Chloride Lvl (test code = Chloride Lvl) 98 95-109 [place] [address]-10-16 09:37:00 Test Item Value Reference Range Interpretation Comments CO2 (test code = CO2) 32 24-32 [place] 786342-10-16 09:37:00 Test Item Value Reference Range Interpretation Comments Calcium Lvl (test code = Calcium Lvl) 9.3 8.5-10.5 [place] 786342-10-16 09:37:00 Test Item Value Reference Range Interpretation Comments Total Protein (test code = Total 7.5 6.4-8.4 Protein) [place] 786342-10-16 09:37:00 Test Item Value Reference Range Interpretation Comments Albumin Lvl (test code = Albumin Lvl) 3.0 3.5-5.0 [place] 786342-10-16 09:37:00 Test Item Value Reference Range Interpretation Comments ALT (test code = ALT) 18 See_Comment [Auto mated message] The system which ge nerated this result transmit fabiano reference range : <=65. The reference range was not used to interpr et this result as aleks l/abnormal. [place] 786342-10-16 09:37:00 Test Item Value Reference Range Interpretation Comments AST (test code = AST) 6 See_Comment [Auto mated message] The system which ge nerated this result transmit fabiano reference range : <=37. The reference range was not used to interpr et this result as aleks l/abnormal. [facility] LWQGK1615-54-57 09:37:00 Test Item Value Reference Range Interpretation Comments Alk Phos (test code = Alk Phos) 118 39-136 [facility] [id number] 09:37:00 Test Item Value Reference Range Interpretation Comments Bili Total (test code = Bili Total) 0.4 0.2-1.3 [facility] PIYTZ5126-42-04 09:37:00 Test Item Value Reference Range Interpretation Comments AGAP (test code = AGAP) 11.7 10.0-20.0 [facility] [id number] 09:37:00 Test Item Value Reference Range Interpretation Comments B/C Ratio (test code = B/C Ratio) 19 1 6-25 [facility] EJJVG5801-86-38 09:37:00 Test Item Value Reference Range Interpretation Comments Globulin (test code = Globulin) 4.5 2.7-4.2 [facility] JKBJR7566-08-62 09:37:00 Test Item Value Reference Range Interpretation Comments A/G Ratio (test code = A/G Ratio) 0.7 1 0.7-1.6 [facility] [id number] 09:37:00 Test Item Value Reference Range Interpretation Comments eGFR (test code = eGFR) 105 [facility] SGUJG4926-21-02 09:37:00 Test Item Value Reference Range Interpretation Comments Phosphorus (test code = Phosphorus) 3.7 2.5-4.5 [facility] [id number] 09:37:00 Test Item Value Reference Range Interpretation Comments Magnesium Lvl (test code = Magnesium 2.1 1.8-2.4 Lvl) [place] [address]-10-16 09:37:00 Test Item Value Reference Range Interpretation Comments Procalcitonin Lvl (test no gt See_Comment [Au tomated message] code = Procalcitonin Lvl) Th e system which generated this result transmitted ref erence range: <=0.10. The reference range was not used to interpr et this result as normal/abnormal . [facility] CenterYbnxylhDJYUDUMHRS2228-32-30 09:37:00 Test Item Value Reference Range Interpretation Comments WBC (test code = WBC) 15.7 3.7-10.4 [facility] CenterAngkkbjWYFGXXJWAA2078-73-65 09:37:00 Test Item Value Reference Range Interpretation Comments RBC (test code = RBC) 4.10 4.20-5.40 [place] 439852-10-16 09:37:00 Test Item Value Reference Range Interpretation Comments Hgb (test code = Hgb) 10.7 12.0-16.0 [place] [address]-10-16 09:37:00 Test Item Value Reference Range Interpretation Comments Hct (test code = Hct) 32.8 36.0-48.0 [place] 439852-10-16 09:37:00 Test Item Value Reference Range Interpretation Comments MCV (test code = MCV) 80.0 80.0-98.0 [place] 439852-10-16 09:37:00 Test Item Value Reference Range Interpretation Comments MCH (test code = MCH) 26.1 pg 27.0-31.0 [facility] CenterGqxugrbOGVTFJSWQL7043-70-79 09:37:00 Test Item Value Reference Range Interpretation Comments MCHC (test code = MCHC) 32.6 32.0-36.0 [facility] CenterJmcwpgyFVRFOGDXLR5760-51-99 09:37:00 Test Item Value Reference Range Interpretation Comments RDW (test code = RDW) 16.4 11.5-14.5 [facility] CenterTlchnvmPRXULWSSVM0379-07-76 09:37:00 Test Item Value Reference Range Interpretation Comments Platelet (test code = Platelet) 362 133-450 [facility] CenterHzknquzHHRPCEQKHS8353-60-87 09:37:00 Test Item Value Reference Range Interpretation Comments MPV (test code = MPV) 8.1 7.4-10.4 [place] 439852-10-16 09:37:00 Test Item Value Reference Range Interpretation Comments Segs (test code = Segs) 76.4 45.0-75.0 [place] [address]-10-16 09:37:00 Test Item Value Reference Range Interpretation Comments Lymphocytes (test code = Lymphocytes) 13.3 20.0-40.0 [place] [address]-10-16 09:37:00 Test Item Value Reference Range Interpretation Comments Monocytes (test code = Monocytes) 5.7 2.0-12.0 [place] [address]-10-16 09:37:00 Test Item Value Reference Range Interpretation Comments Eosinophils (test code = 3.7 See_Comment [A utomated message] The Eosinophils) system which ge nerated this result tra nsmitted reference range : <=4.0. The reference r quynh was not used to int erpret this result as normal/abnormal . [address]10-16 09:37:00 Test Item Value Reference Range Interpretation Comments Basophils (test code = 0.9 See_Comment [Aut omated message] The Basophils) system which ge nerated this result tra nsmitted reference range : <=1.0. The reference r quynh was not used to int erpret this result as normal/abnormal . [place] [address]-10-16 09:37:00 Test Item Value Reference Range Interpretation Comments Neutrophils # (test code = Neutrophils 12.0 1.5-8.1 #) [address]10-16 09:37:00 Test Item Value Reference Range Interpretation Comments Lymphocytes # (test code = Lymphocytes 2.1 1.0-5.5 #) [address]10-16 09:37:00 Test Item Value Reference Range Interpretation Comments Monocytes # (test code 0.9 See_Comment [Aut omated message] The = Monocytes #) system which generated this result tra nsmitted reference range : <=0.8. The reference r quynh was not used to int erpret this result as normal/abnormal . [place] [address]-10-16 09:37:00 Test Item Value Reference Range Interpretation Comments Eosinophils # (test code 0.6 See_Comment [A utomated message] The = Eosinophils #) system whic h generated this result tra nsmitted reference range : <=0.5. The reference r quynh was not used to int erpret this result as normal/abnormal . [place] [address]-10-16 09:37:00 Test Item Value Reference Range Interpretation Comments Basophils # (test code 0.1 See_Comment [Aut omated message] The = Basophils #) system which generated this result tra nsmitted reference range : <=0.2. The reference r quynh was not used to int erpret this result as normal/abnormal . [facility] [id number] 09:37:00 Test Item Value Reference Range Interpretation Comments Procalcitonin Lvl (test no gt See_Comment [Au tomated message] code = Procalcitonin Lvl) Th e system which generated this result transmitted ref erence range: <=0.10. The reference range was not used to interpr et this result as normal/abnormal . [facility] [id number] 09:37:00 Test Item Value Reference Range Interpretation Comments Glucose Lvl (test code = Glucose Lvl) 103 70-99 [facility] [id number] 09:37:00 Test Item Value Reference Range Interpretation Comments BUN (test code = BUN) 13 7-22 [facility] [id number] 09:37:00 Test Item Value Reference Range Interpretation Comments Creatinine Lvl (test code = Creatinine 0.67 0.50-1.40 Lvl) [facility] [facility] [id number] 09:37:00 Test Item Value Reference Range Interpretation Comments Sodium Lvl (test code = Sodium Lvl) 138 135-145 [facility] [id number] 09:37:00 Test Item Value Reference Range Interpretation Comments Potassium Lvl (test code = Potassium 3.7 3.5-5.1 Lvl) [facility] [id number] 09:37:00 Test Item Value Reference Range Interpretation Comments Chloride Lvl (test code = Chloride Lvl) 98 95-109 [facility] [id number] 09:37:00 Test Item Value Reference Range Interpretation Comments CO2 (test code = CO2) 32 24-32 [facility] [id number] 09:37:00 Test Item Value Reference Range Interpretation Comments Calcium Lvl (test code = Calcium Lvl) 9.3 8.5-10.5 [facility] [id number] 09:37:00 Test Item Value Reference Range Interpretation Comments Total Protein (test code = Total 7.5 6.4-8.4 Protein) [facility] [id number] 09:37:00 Test Item Value Reference Range Interpretation Comments Albumin Lvl (test code = Albumin Lvl) 3.0 3.5-5.0 [facility] [employer]2022-10-16 09:37:00 Test Item Value Reference Range Interpretation Comments ALT (test code = ALT) 18 See_Comment [Auto mated message] The system which ge nerated this result transmit fabiano reference range : <=65. The reference range was not used to interpr et this result as aleks l/abnormal. [facility] [employer]2022-10-16 09:37:00 Test Item Value Reference Range Interpretation Comments AST (test code = AST) 6 See_Comment [Auto mated message] The system which ge nerated this result transmit fabiano reference range : <=37. The reference range was not used to interpr et this result as aleks l/abnormal. [facility] [employer] [id number] 09:37:00 Test Item Value Reference Range Interpretation Comments Alk Phos (test code = Alk Phos) 118 39-136 [facility] [employer]2022-10-16 09:37:00 Test Item Value Reference Range Interpretation Comments Bili Total (test code = Bili Total) 0.4 0.2-1.3 [facility] [employer] [id number] 09:37:00 Test Item Value Reference Range Interpretation Comments AGAP (test code = AGAP) 11.7 10.0-20.0 [facility] [employer]2022-10-16 09:37:00 Test Item Value Reference Range Interpretation Comments B/C Ratio (test code = B/C Ratio) 19 1 6-25 [facility] [employer] [id number] 09:37:00 Test Item Value Reference Range Interpretation Comments Globulin (test code = Globulin) 4.5 2.7-4.2 [facility] bepretty2-10-16 09:37:00 Test Item Value Reference Range Interpretation Comments A/G Ratio (test code = A/G Ratio) 0.7 1 0.7-1.6 [facility] [employer]2022-10-16 09:37:00 Test Item Value Reference Range Interpretation Comments eGFR (test code = eGFR) 105 [facility] [employer] [id number] 09:37:00 Test Item Value Reference Range Interpretation Comments Phosphorus (test code = Phosphorus) 3.7 2.5-4.5 [facility]2022-10-16 09:37:00 Test Item Value Reference Range Interpretation Comments Magnesium Lvl (test code = Magnesium 2.1 1.8-2.4 Lvl) [place] 675862-10-16 09:37:00 Test Item Value Reference Range Interpretation Comments Procalcitonin Lvl (test no gt See_Comment [Au tomated message] code = Procalcitonin Lvl) Th e system which generated this result transmitted ref erence range: <=0.10. The reference range was not used to interpr et this result as normal/abnormal . [facility] CenterIphzpksRCWUPETRHB1009-17-96 09:37:00 Test Item Value Reference Range Interpretation Comments WBC (test code = WBC) 15.7 3.7-10.4 [place] 439852-10-16 09:37:00 Test Item Value Reference Range Interpretation Comments RBC (test code = RBC) 4.10 4.20-5.40 [facility] CenterKvcczeuPSUEAACSTI2323-10-15 09:37:00 Test Item Value Reference Range Interpretation Comments Hgb (test code = Hgb) 10.7 12.0-16.0 [place] 439852-10-16 09:37:00 Test Item Value Reference Range Interpretation Comments Hct (test code = Hct) 32.8 36.0-48.0 [place] [address]-10-16 09:37:00 Test Item Value Reference Range Interpretation Comments MCV (test code = MCV) 80.0 80.0-98.0 [place] [address]-10-16 09:37:00 Test Item Value Reference Range Interpretation Comments MCH (test code = MCH) 26.1 pg 27.0-31.0 [place] 439852-10-16 09:37:00 Test Item Value Reference Range Interpretation Comments MCHC (test code = MCHC) 32.6 32.0-36.0 [place] 439852-10-16 09:37:00 Test Item Value Reference Range Interpretation Comments RDW (test code = RDW) 16.4 11.5-14.5 [facility] CenterLiswsioWLGLMHEREP3317-69-71 09:37:00 Test Item Value Reference Range Interpretation Comments Platelet (test code = Platelet) 362 133-450 [facility] CenterMqqicktSVXVKXXERQ0323-52-94 09:37:00 Test Item Value Reference Range Interpretation Comments MPV (test code = MPV) 8.1 7.4-10.4 [place] 439852-10-16 09:37:00 Test Item Value Reference Range Interpretation Comments Segs (test code = Segs) 76.4 45.0-75.0 [facility] CenterDusaqfkXSLAKRYWNO2158-85-76 09:37:00 Test Item Value Reference Range Interpretation Comments Lymphocytes (test code = Lymphocytes) 13.3 20.0-40.0 [place] 439852-10-16 09:37:00 Test Item Value Reference Range Interpretation Comments Monocytes (test code = Monocytes) 5.7 2.0-12.0 [facility] CenterHnhgwkwTPTBGBHWII6173-68-98 09:37:00 Test Item Value Reference Range Interpretation Comments Eosinophils (test code = 3.7 See_Comment [A utomated message] The Eosinophils) system which ge nerated this result tra nsmitted reference range : <=4.0. The reference r quynh was not used to int erpret this result as normal/abnormal . [facility] CenterNjizemzTUKDPCPWCO4834-42-93 09:37:00 Test Item Value Reference Range Interpretation Comments Basophils (test code = 0.9 See_Comment [Aut omated message] The Basophils) system which ge nerated this result tra nsmitted reference range : <=1.0. The reference r quynh was not used to int erpret this result as normal/abnormal . [facility] CenterMnemtduJZJQDDOGJF0687-64-75 09:37:00 Test Item Value Reference Range Interpretation Comments Neutrophils # (test code = Neutrophils 12.0 1.5-8.1 #) [place] 439852-10-16 09:37:00 Test Item Value Reference Range Interpretation Comments Lymphocytes # (test code = Lymphocytes 2.1 1.0-5.5 #) [place] 439852-10-16 09:37:00 Test Item Value Reference Range Interpretation Comments Monocytes # (test code 0.9 See_Comment [Aut omated message] The = Monocytes #) system which generated this result tra nsmitted reference range : <=0.8. The reference r quynh was not used to int erpret this result as normal/abnormal . [facility] CenterWiewrjjCDZFOOHMFW2390-10-96 09:37:00 Test Item Value Reference Range Interpretation Comments Eosinophils # (test code 0.6 See_Comment [A utomated message] The = Eosinophils #) system whic h generated this result tra nsmitted reference range : <=0.5. The reference r quynh was not used to int erpret this result as normal/abnormal . [facility] CenterOkftvnySMGIZEMDAR4750-56-35 09:37:00 Test Item Value Reference Range Interpretation Comments Basophils # (test code 0.1 See_Comment [Aut omated message] The = Basophils #) system which generated this result tra nsmitted reference range : <=0.2. The reference r quynh was not used to int erpret this result as normal/abnormal . [facility] [id number] 09:37:00 Test Item Value Reference Range Interpretation Comments Procalcitonin Lvl (test no gt See_Comment [Au tomated message] code = Procalcitonin Lvl) Th e system which generated this result transmitted ref erence range: <=0.10. The reference range was not used to interpr et this result as normal/abnormal . [facility]2022-10-16 09:37:00 Test Item Value Reference Range Interpretation Comments Glucose Lvl (test code = Glucose Lvl) 103 70-99 [place] [address]-10-16 09:37:00 Test Item Value Reference Range Interpretation Comments BUN (test code = BUN) 13 7-22 [place] [address]-10-16 09:37:00 Test Item Value Reference Range Interpretation Comments Creatinine Lvl (test code = Creatinine 0.67 0.50-1.40 Lvl) [place] [address]-10-16 09:37:00 Test Item Value Reference Range Interpretation Comments Sodium Lvl (test code = Sodium Lvl) 138 135-145 [place] [address]-10-16 09:37:00 Test Item Value Reference Range Interpretation Comments Potassium Lvl (test code = Potassium 3.7 3.5-5.1 Lvl) [place] [address]-10-16 09:37:00 Test Item Value Reference Range Interpretation Comments Chloride Lvl (test code = Chloride Lvl) 98 95-109 [facility] [id number] 09:37:00 Test Item Value Reference Range Interpretation Comments CO2 (test code = CO2) 32 24-32 [facility] CONUS1406-27-09 09:37:00 Test Item Value Reference Range Interpretation Comments Calcium Lvl (test code = Calcium Lvl) 9.3 8.5-10.5 [facility] [id number] 09:37:00 Test Item Value Reference Range Interpretation Comments Total Protein (test code = Total 7.5 6.4-8.4 Protein) [facility] [id number] 09:37:00 Test Item Value Reference Range Interpretation Comments Albumin Lvl (test code = Albumin Lvl) 3.0 3.5-5.0 [facility] [id number] 09:37:00 Test Item Value Reference Range Interpretation Comments ALT (test code = ALT) 18 See_Comment [Auto mated message] The system which ge nerated this result transmit fabiano reference range : <=65. The reference range was not used to interpr et this result as aleks l/abnormal. [facility] [id number] 09:37:00 Test Item Value Reference Range Interpretation Comments AST (test code = AST) 6 See_Comment [Auto mated message] The system which ge nerated this result transmit fabiano reference range : <=37. The reference range was not used to interpr et this result as aleks l/abnormal. [facility] [employer] [id number] 09:37:00 Test Item Value Reference Range Interpretation Comments Alk Phos (test code = Alk Phos) 118 39-136 [facility] [id number] 09:37:00 Test Item Value Reference Range Interpretation Comments Bili Total (test code = Bili Total) 0.4 0.2-1.3 [facility] [employer] [id number] 09:37:00 Test Item Value Reference Range Interpretation Comments AGAP (test code = AGAP) 11.7 10.0-20.0 [facility] [employer] [id number] 09:37:00 Test Item Value Reference Range Interpretation Comments B/C Ratio (test code = B/C Ratio) 19 1 6-25 [facility] [id number] 09:37:00 Test Item Value Reference Range Interpretation Comments Globulin (test code = Globulin) 4.5 2.7-4.2 [facility] [employer] [id number] 09:37:00 Test Item Value Reference Range Interpretation Comments A/G Ratio (test code = A/G Ratio) 0.7 1 0.7-1.6 [address]10-16 09:37:00 Test Item Value Reference Range Interpretation Comments eGFR (test code = eGFR) 105 [place] [address]-10-16 09:37:00 Test Item Value Reference Range Interpretation Comments Phosphorus (test code = Phosphorus) 3.7 2.5-4.5 [place] [address]-10-16 09:37:00 Test Item Value Reference Range Interpretation Comments Magnesium Lvl (test code = Magnesium 2.1 1.8-2.4 Lvl) [place] [address]-10-16 09:37:00 Test Item Value Reference Range Interpretation Comments Procalcitonin Lvl (test no gt See_Comment [Au tomated message] code = Procalcitonin Lvl) Th e system which generated this result transmitted ref erence range: <=0.10. The reference range was not used to interpr et this result as normal/abnormal . [place] [address]-10-16 09:37:00 Test Item Value Reference Range Interpretation Comments WBC (test code = WBC) 15.7 3.7-10.4 [place] [address]-10-16 09:37:00 Test Item Value Reference Range Interpretation Comments RBC (test code = RBC) 4.10 4.20-5.40 [place] [address]-10-16 09:37:00 Test Item Value Reference Range Interpretation Comments Hgb (test code = Hgb) 10.7 12.0-16.0 [place] [address]-10-16 09:37:00 Test Item Value Reference Range Interpretation Comments Hct (test code = Hct) 32.8 36.0-48.0 [place] [address]-10-16 09:37:00 Test Item Value Reference Range Interpretation Comments MCV (test code = MCV) 80.0 80.0-98.0 [place] [address]-10-16 09:37:00 Test Item Value Reference Range Interpretation Comments MCH (test code = MCH) 26.1 pg 27.0-31.0 [place] [address]-10-16 09:37:00 Test Item Value Reference Range Interpretation Comments MCHC (test code = MCHC) 32.6 32.0-36.0 [place] 439852-10-16 09:37:00 Test Item Value Reference Range Interpretation Comments RDW (test code = RDW) 16.4 11.5-14.5 [place] 439852-10-16 09:37:00 Test Item Value Reference Range Interpretation Comments Platelet (test code = Platelet) 362 133-450 [facility] CenterYvzwjmnJDONGKYZOP7886-42-11 09:37:00 Test Item Value Reference Range Interpretation Comments MPV (test code = MPV) 8.1 7.4-10.4 [facility] CenterZhoyqaeHVOGXTDWMI5852-05-06 09:37:00 Test Item Value Reference Range Interpretation Comments Segs (test code = Segs) 76.4 45.0-75.0 [place] 439852-10-16 09:37:00 Test Item Value Reference Range Interpretation Comments Lymphocytes (test code = Lymphocytes) 13.3 20.0-40.0 [place] 439852-10-16 09:37:00 Test Item Value Reference Range Interpretation Comments Monocytes (test code = Monocytes) 5.7 2.0-12.0 [facility] CenterKevxughFVKXVVGQFP4002-88-17 09:37:00 Test Item Value Reference Range Interpretation Comments Eosinophils (test code = 3.7 See_Comment [A utomated message] The Eosinophils) system which ge nerated this result tra nsmitted reference range : <=4.0. The reference r quynh was not used to int erpret this result as normal/abnormal . [facility] CenterIxykueoFXZQWABRDI4710-77-65 09:37:00 Test Item Value Reference Range Interpretation Comments Basophils (test code = 0.9 See_Comment [Aut omated message] The Basophils) system which ge nerated this result tra nsmitted reference range : <=1.0. The reference r quynh was not used to int erpret this result as normal/abnormal . [place] 439852-10-16 09:37:00 Test Item Value Reference Range Interpretation Comments Neutrophils # (test code = Neutrophils 12.0 1.5-8.1 #) [place] 439852-10-16 09:37:00 Test Item Value Reference Range Interpretation Comments Lymphocytes # (test code = Lymphocytes 2.1 1.0-5.5 #) [place] [address]-10-16 09:37:00 Test Item Value Reference Range Interpretation Comments Monocytes # (test code 0.9 See_Comment [Aut omated message] The = Monocytes #) system which generated this result tra nsmitted reference range : <=0.8. The reference r quynh was not used to int erpret this result as normal/abnormal . [place] 439852-10-16 09:37:00 Test Item Value Reference Range Interpretation Comments Eosinophils # (test code 0.6 See_Comment [A utomated message] The = Eosinophils #) system whic h generated this result tra nsmitted reference range : <=0.5. The reference r quynh was not used to int erpret this result as normal/abnormal . [facility] CenterFtixadeIPXDSLDDNE0085-67-94 09:37:00 Test Item Value Reference Range Interpretation Comments Basophils # (test code 0.1 See_Comment [Aut omated message] The = Basophils #) system which generated this result tra nsmitted reference range : <=0.2. The reference r quynh was not used to int erpret this result as normal/abnormal . [facility] [id number] 09:37:00 Test Item Value Reference Range Interpretation Comments Procalcitonin Lvl (test no gt See_Comment [Au tomated message] code = Procalcitonin Lvl) Th e system which generated this result transmitted ref erence range: <=0.10. The reference range was not used to interpr et this result as normal/abnormal . [facility] [id number] 09:37:00 Test Item Value Reference Range Interpretation Comments Glucose Lvl (test code = Glucose Lvl) 103 70-99 [facility] [id number] 09:37:00 Test Item Value Reference Range Interpretation Comments BUN (test code = BUN) 13 7-22 [facility] [id number] 09:37:00 Test Item Value Reference Range Interpretation Comments Creatinine Lvl (test code = Creatinine 0.67 0.50-1.40 Lvl) [place] 786342-10-16 09:37:00 Test Item Value Reference Range Interpretation Comments Sodium Lvl (test code = Sodium Lvl) 138 135-145 [place] 786342-10-16 09:37:00 Test Item Value Reference Range Interpretation Comments Potassium Lvl (test code = Potassium 3.7 3.5-5.1 Lvl) [place] [address]-10-16 09:37:00 Test Item Value Reference Range Interpretation Comments Chloride Lvl (test code = Chloride Lvl) 98 95-109 [place] [address]-10-16 09:37:00 Test Item Value Reference Range Interpretation Comments CO2 (test code = CO2) 32 24-32 [facility] [id number] 09:37:00 Test Item Value Reference Range Interpretation Comments Calcium Lvl (test code = Calcium Lvl) 9.3 8.5-10.5 [facility] [id number] 09:37:00 Test Item Value Reference Range Interpretation Comments Total Protein (test code = Total 7.5 6.4-8.4 Protein) [place] 786342-10-16 09:37:00 Test Item Value Reference Range Interpretation Comments Albumin Lvl (test code = Albumin Lvl) 3.0 3.5-5.0 [facility] [id number] 09:37:00 Test Item Value Reference Range Interpretation Comments ALT (test code = ALT) 18 See_Comment [Auto mated message] The system which ge nerated this result transmit fabiano reference range : <=65. The reference range was not used to interpr et this result as aleks l/abnormal. [facility] [id number] 09:37:00 Test Item Value Reference Range Interpretation Comments AST (test code = AST) 6 See_Comment [Auto mated message] The system which ge nerated this result transmit fabiano reference range : <=37. The reference range was not used to interpr et this result as aleks l/abnormal. [facility] [id number] 09:37:00 Test Item Value Reference Range Interpretation Comments Alk Phos (test code = Alk Phos) 118 39-136 [facility] [id number] 09:37:00 Test Item Value Reference Range Interpretation Comments Bili Total (test code = Bili Total) 0.4 0.2-1.3 [facility] [id number] 09:37:00 Test Item Value Reference Range Interpretation Comments AGAP (test code = AGAP) 11.7 10.0-20.0 [place] [address]-10-16 09:37:00 Test Item Value Reference Range Interpretation Comments B/C Ratio (test code = B/C Ratio) 19 1 6-25 [place] [address]-10-16 09:37:00 Test Item Value Reference Range Interpretation Comments Globulin (test code = Globulin) 4.5 2.7-4.2 [place] [address]-10-16 09:37:00 Test Item Value Reference Range Interpretation Comments A/G Ratio (test code = A/G Ratio) 0.7 1 0.7-1.6 [place] [address]-10-16 09:37:00 Test Item Value Reference Range Interpretation Comments eGFR (test code = eGFR) 105 [place] 786342-10-16 09:37:00 Test Item Value Reference Range Interpretation Comments Phosphorus (test code = Phosphorus) 3.7 2.5-4.5 [place] 786342-10-16 09:37:00 Test Item Value Reference Range Interpretation Comments Magnesium Lvl (test code = Magnesium 2.1 1.8-2.4 Lvl) [place] [address]-10-16 09:37:00 Test Item Value Reference Range Interpretation Comments Procalcitonin Lvl (test no gt See_Comment [Au tomated message] code = Procalcitonin Lvl) e system which generated this result transmitted ref erence range: <=0.10. The reference range was not used to interpr et this result as normal/abnormal . [place] 439852-10-16 09:37:00 Test Item Value Reference Range Interpretation Comments WBC (test code = WBC) 15.7 3.7-10.4 [place] [address]-10-16 09:37:00 Test Item Value Reference Range Interpretation Comments RBC (test code = RBC) 4.10 4.20-5.40 [place] [address]-10-16 09:37:00 Test Item Value Reference Range Interpretation Comments Hgb (test code = Hgb) 10.7 12.0-16.0 [place] [address]-10-16 09:37:00 Test Item Value Reference Range Interpretation Comments Hct (test code = Hct) 32.8 36.0-48.0 [place] 439852-10-16 09:37:00 Test Item Value Reference Range Interpretation Comments MCV (test code = MCV) 80.0 80.0-98.0 [facility] CenterZqibxrsZHBRIWFJPZ9138-53-23 09:37:00 Test Item Value Reference Range Interpretation Comments MCH (test code = MCH) 26.1 pg 27.0-31.0 [facility] CenterXmlxfhgOEBHRGOBOP8884-72-77 09:37:00 Test Item Value Reference Range Interpretation Comments MCHC (test code = MCHC) 32.6 32.0-36.0 [facility] CenterFpycezdAPDSGWWFVE4822-59-90 09:37:00 Test Item Value Reference Range Interpretation Comments RDW (test code = RDW) 16.4 11.5-14.5 [facility] CenterZwnzthjOQOZANUCNX0614-20-33 09:37:00 Test Item Value Reference Range Interpretation Comments Platelet (test code = Platelet) 362 133-450 [facility] CenterBqrndvhWYQOWOALZE9537-86-29 09:37:00 Test Item Value Reference Range Interpretation Comments MPV (test code = MPV) 8.1 7.4-10.4 [place] 439852-10-16 09:37:00 Test Item Value Reference Range Interpretation Comments Segs (test code = Segs) 76.4 45.0-75.0 [facility] CenterYngqiltIUCETEBHGW6426-00-72 09:37:00 Test Item Value Reference Range Interpretation Comments Lymphocytes (test code = Lymphocytes) 13.3 20.0-40.0 [place] 439852-10-16 09:37:00 Test Item Value Reference Range Interpretation Comments Monocytes (test code = Monocytes) 5.7 2.0-12.0 [place] [address]-10-16 09:37:00 Test Item Value Reference Range Interpretation Comments Eosinophils (test code = 3.7 See_Comment [A utomated message] The Eosinophils) system which ge nerated this result tra nsmitted reference range : <=4.0. The reference r quynh was not used to int erpret this result as normal/abnormal . [facility] CenterFvlidrmXXELHAFIOG9382-31-61 09:37:00 Test Item Value Reference Range Interpretation Comments Basophils (test code = 0.9 See_Comment [Aut omated message] The Basophils) system which ge nerated this result tra nsmitted reference range : <=1.0. The reference r quynh was not used to int erpret this result as normal/abnormal . [place] [address]-10-16 09:37:00 Test Item Value Reference Range Interpretation Comments Neutrophils # (test code = Neutrophils 12.0 1.5-8.1 #) [place] 439852-10-16 09:37:00 Test Item Value Reference Range Interpretation Comments Lymphocytes # (test code = Lymphocytes 2.1 1.0-5.5 #) [place] [address]-10-16 09:37:00 Test Item Value Reference Range Interpretation Comments Monocytes # (test code 0.9 See_Comment [Aut omated message] The = Monocytes #) system which generated this result tra nsmitted reference range : <=0.8. The reference r quynh was not used to int erpret this result as normal/abnormal . [place] [address]-10-16 09:37:00 Test Item Value Reference Range Interpretation Comments Eosinophils # (test code 0.6 See_Comment [A utomated message] The = Eosinophils #) system whic h generated this result tra nsmitted reference range : <=0.5. The reference r quynh was not used to int erpret this result as normal/abnormal . [place] [address]-10-16 09:37:00 Test Item Value Reference Range Interpretation Comments Basophils # (test code 0.1 See_Comment [Aut omated message] The = Basophils #) system which generated this result tra nsmitted reference range : <=0.2. The reference r quynh was not used to int erpret this result as normal/abnormal . [facility] [id number] 09:37:00 Test Item Value Reference Range Interpretation Comments Procalcitonin Lvl (test no gt See_Comment [Au tomated message] code = Procalcitonin Lvl) Th e system which generated this result transmitted ref erence range: <=0.10. The reference range was not used to interpr et this result as normal/abnormal . [place] 786342-10-16 09:37:00 Test Item Value Reference Range Interpretation Comments Glucose Lvl (test code = Glucose Lvl) 103 70-99 [facility] [address] 09:37[facility]00 Test Item Value Reference Range Interpretation Comments BUN (test code = BUN) 13 7-22 [place] [address]-10-16 09:37:00 Test Item Value Reference Range Interpretation Comments Creatinine Lvl (test code = Creatinine 0.67 0.50-1.40 Lvl) [place] [address]-10-16 09:37:00 Test Item Value Reference Range Interpretation Comments Sodium Lvl (test code = Sodium Lvl) 138 135-145 [place] [address]-10-16 09:37:00 Test Item Value Reference Range Interpretation Comments Potassium Lvl (test code = Potassium 3.7 3.5-5.1 Lvl) [address]10-16 09:37:00 Test Item Value Reference Range Interpretation Comments Chloride Lvl (test code = Chloride Lvl) 98 95-109 [address]10-16 09:37:00 Test Item Value Reference Range Interpretation Comments CO2 (test code = CO2) 32 24-32 [place] [address]-10-16 09:37:00 Test Item Value Reference Range Interpretation Comments Calcium Lvl (test code = Calcium Lvl) 9.3 8.5-10.5 [place] [address]-10-16 09:37:00 Test Item Value Reference Range Interpretation Comments Total Protein (test code = Total 7.5 6.4-8.4 Protein) [address]10-16 09:37:00 Test Item Value Reference Range Interpretation Comments Albumin Lvl (test code = Albumin Lvl) 3.0 3.5-5.0 [place] [address]-10-16 09:37:00 Test Item Value Reference Range Interpretation Comments ALT (test code = ALT) 18 See_Comment [Auto mated message] The system which ge nerated this result transmit fabiano reference range : <=65. The reference range was not used to interpr et this result as aleks l/abnormal. [address]10-16 09:37:00 Test Item Value Reference Range Interpretation Comments AST (test code = AST) 6 See_Comment [Auto mated message] The system which ge nerated this result transmit fabiano reference range : <=37. The reference range was not used to interpr et this result as aleks l/abnormal. [facility]2022-10-16 09:37:00 Test Item Value Reference Range Interpretation Comments Alk Phos (test code = Alk Phos) 118 39-136 [place] 786342-10-16 09:37:00 Test Item Value Reference Range Interpretation Comments Bili Total (test code = Bili Total) 0.4 0.2-1.3 [place] 786342-10-16 09:37:00 Test Item Value Reference Range Interpretation Comments AGAP (test code = AGAP) 11.7 10.0-20.0 [place] [address]-10-16 09:37:00 Test Item Value Reference Range Interpretation Comments B/C Ratio (test code = B/C Ratio) 19 1 6-25 [place] [address]-10-16 09:37:00 Test Item Value Reference Range Interpretation Comments Globulin (test code = Globulin) 4.5 2.7-4.2 [place] 786342-10-16 09:37:00 Test Item Value Reference Range Interpretation Comments A/G Ratio (test code = A/G Ratio) 0.7 1 0.7-1.6 [place] [address]-10-16 09:37:00 Test Item Value Reference Range Interpretation Comments eGFR (test code = eGFR) 105 [facility]2022-10-16 09:37:00 Test Item Value Reference Range Interpretation Comments Phosphorus (test code = Phosphorus) 3.7 2.5-4.5 [place] 786342-10-16 09:37:00 Test Item Value Reference Range Interpretation Comments Magnesium Lvl (test code = Magnesium 2.1 1.8-2.4 Lvl) [place] 675862-10-16 09:37:00 Test Item Value Reference Range Interpretation Comments Procalcitonin Lvl (test no gt See_Comment [Au tomated message] code = Procalcitonin Lvl) Th e system which generated this result transmitted ref erence range: <=0.10. The reference range was not used to interpr et this result as normal/abnormal . [place] 439852-10-16 09:37:00 Test Item Value Reference Range Interpretation Comments WBC (test code = WBC) 15.7 3.7-10.4 [place] 439852-10-16 09:37:00 Test Item Value Reference Range Interpretation Comments RBC (test code = RBC) 4.10 4.20-5.40 [place] 439852-10-16 09:37:00 Test Item Value Reference Range Interpretation Comments Hgb (test code = Hgb) 10.7 12.0-16.0 [place] [address]-10-16 09:37:00 Test Item Value Reference Range Interpretation Comments Hct (test code = Hct) 32.8 36.0-48.0 [place] 439852-10-16 09:37:00 Test Item Value Reference Range Interpretation Comments MCV (test code = MCV) 80.0 80.0-98.0 [place] 439852-10-16 09:37:00 Test Item Value Reference Range Interpretation Comments MCH (test code = MCH) 26.1 pg 27.0-31.0 [place] 439852-10-16 09:37:00 Test Item Value Reference Range Interpretation Comments MCHC (test code = MCHC) 32.6 32.0-36.0 [place] 439852-10-16 09:37:00 Test Item Value Reference Range Interpretation Comments RDW (test code = RDW) 16.4 11.5-14.5 [facility]EesgiqcTEOBIOYWGP8502-64-52 09:37:00 Test Item Value Reference Range Interpretation Comments Platelet (test code = Platelet) 362 133-450 [facility] CenterMqmdlndCXXIQWBRJJ5614-22-96 09:37:00 Test Item Value Reference Range Interpretation Comments MPV (test code = MPV) 8.1 7.4-10.4 [place] 439852-10-16 09:37:00 Test Item Value Reference Range Interpretation Comments Segs (test code = Segs) 76.4 45.0-75.0 [place] [address]-10-16 09:37:00 Test Item Value Reference Range Interpretation Comments Lymphocytes (test code = Lymphocytes) 13.3 20.0-40.0 [place] [address]-10-16 09:37:00 Test Item Value Reference Range Interpretation Comments Monocytes (test code = Monocytes) 5.7 2.0-12.0 [place] 439852-10-16 09:37:00 Test Item Value Reference Range Interpretation Comments Eosinophils (test code = 3.7 See_Comment [A utomated message] The Eosinophils) system which ge nerated this result tra nsmitted reference range : <=4.0. The reference r quynh was not used to int erpret this result as normal/abnormal . [place] [address]-10-16 09:37:00 Test Item Value Reference Range Interpretation Comments Basophils (test code = 0.9 See_Comment [Aut omated message] The Basophils) system which ge nerated this result tra nsmitted reference range : <=1.0. The reference r quynh was not used to int erpret this result as normal/abnormal . [place] 439852-10-16 09:37:00 Test Item Value Reference Range Interpretation Comments Neutrophils # (test code = Neutrophils 12.0 1.5-8.1 #) [place] 439852-10-16 09:37:00 Test Item Value Reference Range Interpretation Comments Lymphocytes # (test code = Lymphocytes 2.1 1.0-5.5 #) [place] [address]-10-16 09:37:00 Test Item Value Reference Range Interpretation Comments Monocytes # (test code 0.9 See_Comment [Aut omated message] The = Monocytes #) system which generated this result tra nsmitted reference range : <=0.8. The reference r quynh was not used to int erpret this result as normal/abnormal . [facility] CenterUczlypyYHODKZDTOD5803-52-60 09:37:00 Test Item Value Reference Range Interpretation Comments Eosinophils # (test code 0.6 See_Comment [A utomated message] The = Eosinophils #) system whic h generated this result tra nsmitted reference range : <=0.5. The reference r quynh was not used to int erpret this result as normal/abnormal . [place] [address]-10-16 09:37:00 Test Item Value Reference Range Interpretation Comments Basophils # (test code 0.1 See_Comment [Aut omated message] The = Basophils #) system which generated this result tra nsmitted reference range : <=0.2. The reference r quynh was not used to int erpret this result as normal/abnormal . [facility]2022-10-16 09:37:00 Test Item Value Reference Range Interpretation Comments Procalcitonin Lvl (test no gt See_Comment [Au tomated message] code = Procalcitonin Lvl) Th e system which generated this result transmitted ref erence range: <=0.10. The reference range was not used to interpr et this result as normal/abnormal . [place] 786342-10-16 09:37:00 Test Item Value Reference Range Interpretation Comments Glucose Lvl (test code = Glucose Lvl) 103 70-99 [place] 786342-10-16 09:37:00 Test Item Value Reference Range Interpretation Comments BUN (test code = BUN) 13 7-22 [place] [address]-10-16 09:37:00 Test Item Value Reference Range Interpretation Comments Creatinine Lvl (test code = Creatinine 0.67 0.50-1.40 Lvl) [place] 786342-10-16 09:37:00 Test Item Value Reference Range Interpretation Comments Sodium Lvl (test code = Sodium Lvl) 138 135-145 [place] 786342-10-16 09:37:00 Test Item Value Reference Range Interpretation Comments Potassium Lvl (test code = Potassium 3.7 3.5-5.1 Lvl) [place] [address]-10-16 09:37:00 Test Item Value Reference Range Interpretation Comments Chloride Lvl (test code = Chloride Lvl) 98 95-109 [place] 786342-10-16 09:37:00 Test Item Value Reference Range Interpretation Comments CO2 (test code = CO2) 32 24-32 [place] 786342-10-16 09:37:00 Test Item Value Reference Range Interpretation Comments Calcium Lvl (test code = Calcium Lvl) 9.3 8.5-10.5 [place] 786342-10-16 09:37:00 Test Item Value Reference Range Interpretation Comments Total Protein (test code = Total 7.5 6.4-8.4 Protein) [place] 786342-10-16 09:37:00 Test Item Value Reference Range Interpretation Comments Albumin Lvl (test code = Albumin Lvl) 3.0 3.5-5.0 [place] [address]-10-16 09:37:00 Test Item Value Reference Range Interpretation Comments ALT (test code = ALT) 18 See_Comment [Auto mated message] The system which ge nerated this result transmit fabiano reference range : <=65. The reference range was not used to interpr et this result as aleks l/abnormal. [facility] [employer] [id number] 09:37:00 Test Item Value Reference Range Interpretation Comments AST (test code = AST) 6 See_Comment [Auto mated message] The system which ge nerated this result transmit fabiano reference range : <=37. The reference range was not used to interpr et this result as aleks l/abnormal. [facility] [employer] [id number] 09:37:00 Test Item Value Reference Range Interpretation Comments Alk Phos (test code = Alk Phos) 118 39-136 [facility] [employer] [id number] 09:37:00 Test Item Value Reference Range Interpretation Comments Bili Total (test code = Bili Total) 0.4 0.2-1.3 [facility] [employer] [id number] 09:37:00 Test Item Value Reference Range Interpretation Comments AGAP (test code = AGAP) 11.7 10.0-20.0 [facility] [employer] [id number] 09:37:00 Test Item Value Reference Range Interpretation Comments B/C Ratio (test code = B/C Ratio) 19 1 6-25 [facility] [employer] [id number] 09:37:00 Test Item Value Reference Range Interpretation Comments Globulin (test code = Globulin) 4.5 2.7-4.2 [facility] [employer] [id number] 09:37:00 Test Item Value Reference Range Interpretation Comments A/G Ratio (test code = A/G Ratio) 0.7 1 0.7-1.6 [facility] [employer] [id number] 09:37:00 Test Item Value Reference Range Interpretation Comments eGFR (test code = eGFR) 105 [facility] [employer] [id number] 09:37:00 Test Item Value Reference Range Interpretation Comments Phosphorus (test code = Phosphorus) 3.7 2.5-4.5 [facility] [id number] 09:37:00 Test Item Value Reference Range Interpretation Comments Magnesium Lvl (test code = Magnesium 2.1 1.8-2.4 Lvl) [facility] HospitalIxnetowCUFECKXCO1838-02-84 09:37:00 Test Item Value Reference Range Interpretation Comments Procalcitonin Lvl (test no gt See_Comment [Au tomated message] code = Procalcitonin Lvl) Th e system which generated this result transmitted ref erence range: <=0.10. The reference range was not used to interpr et this result as normal/abnormal . [facility]2022-10-16 09:37:00 Test Item Value Reference Range Interpretation Comments Procalcitonin Lvl (test no gt See_Comment [Au tomated message] code = Procalcitonin Lvl) Th e system which generated this result transmitted ref erence range: <=0.10. The reference range was not used to interpr et this result as normal/abnormal . [place] 439852-10-16 09:37:00 Test Item Value Reference Range Interpretation Comments WBC (test code = WBC) 15.7 3.7-10.4 [place] 439852-10-16 09:37:00 Test Item Value Reference Range Interpretation Comments RBC (test code = RBC) 4.10 4.20-5.40 [place] [address]-10-16 09:37:00 Test Item Value Reference Range Interpretation Comments Hgb (test code = Hgb) 10.7 12.0-16.0 [place] [address]-10-16 09:37:00 Test Item Value Reference Range Interpretation Comments Hct (test code = Hct) 32.8 36.0-48.0 [place] [address]-10-16 09:37:00 Test Item Value Reference Range Interpretation Comments MCV (test code = MCV) 80.0 80.0-98.0 [place] [address]-10-16 09:37:00 Test Item Value Reference Range Interpretation Comments MCH (test code = MCH) 26.1 pg 27.0-31.0 [place] [address]-10-16 09:37:00 Test Item Value Reference Range Interpretation Comments MCHC (test code = MCHC) 32.6 32.0-36.0 [place] [address]-10-16 09:37:00 Test Item Value Reference Range Interpretation Comments RDW (test code = RDW) 16.4 11.5-14.5 [place] 439852-10-16 09:37:00 Test Item Value Reference Range Interpretation Comments Platelet (test code = Platelet) 362 133-450 [facility] [id number] 09:37:00 Test Item Value Reference Range Interpretation Comments MPV (test code = MPV) 8.1 7.4-10.4 [facility]2022-10-16 09:37:00 Test Item Value Reference Range Interpretation Comments Glucose Lvl (test code = Glucose Lvl) 103 70-99 [facility] CenterRyqiynyQKKPRBCFVJ4137-84-11 09:37:00 Test Item Value Reference Range Interpretation Comments Segs (test code = Segs) 76.4 45.0-75.0 [facility] C[id number] 09:37:00 Test Item Value Reference Range Interpretation Comments Lymphocytes (test code = Lymphocytes) 13.3 20.0-40.0 [facility] CenterVpdeaziHNLUCAZMIY6535-47-78 09:37:00 Test Item Value Reference Range Interpretation Comments Monocytes (test code = Monocytes) 5.7 2.0-12.0 [facility] CenterIjxrmvvCVYIPGFCLU0527-50-01 09:37:00 Test Item Value Reference Range Interpretation Comments Eosinophils (test code = 3.7 See_Comment [A utomated message] The Eosinophils) system which ge nerated this result tra nsmitted reference range : <=4.0. The reference r quynh was not used to int erpret this result as normal/abnormal . [facility] CenterDjagmxxPHBNUZBZFM9967-17-02 09:37:00 Test Item Value Reference Range Interpretation Comments Basophils (test code = 0.9 See_Comment [Aut omated message] The Basophils) system which ge nerated this result tra nsmitted reference range : <=1.0. The reference r quynh was not used to int erpret this result as normal/abnormal . [facility] CenterEnxrcdhJPAJHKRSYH0279-67-70 09:37:00 Test Item Value Reference Range Interpretation Comments Neutrophils # (test code = Neutrophils 12.0 1.5-8.1 #) [facility] CenterRfvnuigPRJUJWZQAH7197-71-09 09:37:00 Test Item Value Reference Range Interpretation Comments Lymphocytes # (test code = Lymphocytes 2.1 1.0-5.5 #) [place] 439852-10-16 09:37:00 Test Item Value Reference Range Interpretation Comments Monocytes # (test code 0.9 See_Comment [Aut omated message] The = Monocytes #) system which generated this result tra nsmitted reference range : <=0.8. The reference r quynh was not used to int erpret this result as normal/abnormal . [place] 439852-10-16 09:37:00 Test Item Value Reference Range Interpretation Comments Eosinophils # (test code 0.6 See_Comment [A utomated message] The = Eosinophils #) system whic h generated this result tra nsmitted reference range : <=0.5. The reference r quynh was not used to int erpret this result as normal/abnormal . [facility] CenterIfxwvjxHSWQDHYFUL7092-58-89 09:37:00 Test Item Value Reference Range Interpretation Comments Basophils # (test code 0.1 See_Comment [Aut omated message] The = Basophils #) system which generated this result tra nsmitted reference range : <=0.2. The reference r quynh was not used to int erpret this result as normal/abnormal . [place] 786342-10-16 09:37:00 Test Item Value Reference Range Interpretation Comments BUN (test code = BUN) 13 7-22 [facility] [id number] 09:37:00 Test Item Value Reference Range Interpretation Comments Creatinine Lvl (test code = Creatinine 0.67 0.50-1.40 Lvl) [place] 786342-10-16 09:37:00 Test Item Value Reference Range Interpretation Comments Sodium Lvl (test code = Sodium Lvl) 138 135-145 [facility] [id number] 09:37:00 Test Item Value Reference Range Interpretation Comments Potassium Lvl (test code = Potassium 3.7 3.5-5.1 Lvl) [facility] [id number] 09:37:00 Test Item Value Reference Range Interpretation Comments Chloride Lvl (test code = Chloride Lvl) 98 95-109 [facility] [id number] 09:37:00 Test Item Value Reference Range Interpretation Comments CO2 (test code = CO2) 32 24-32 [facility] [id number] 09:37:00 Test Item Value Reference Range Interpretation Comments Calcium Lvl (test code = Calcium Lvl) 9.3 8.5-10.5 [facility] [id number] 09:37:00 Test Item Value Reference Range Interpretation Comments Total Protein (test code = Total 7.5 6.4-8.4 Protein) [facility] [employer] [id number] 09:37:00 Test Item Value Reference Range Interpretation Comments Albumin Lvl (test code = Albumin Lvl) 3.0 3.5-5.0 [facility] [employer] [id number] 09:37:00 Test Item Value Reference Range Interpretation Comments ALT (test code = ALT) 18 See_Comment [Auto mated message] The system which ge nerated this result transmit fabiano reference range : <=65. The reference range was not used to interpr et this result as aleks l/abnormal. [facility] [employer] [id number] 09:37:00 Test Item Value Reference Range Interpretation Comments AST (test code = AST) 6 See_Comment [Auto mated message] The system which ge nerated this result transmit fabiano reference range : <=37. The reference range was not used to interpr et this result as aleks l/abnormal. [facility] [employer] [id number] 09:37:00 Test Item Value Reference Range Interpretation Comments Alk Phos (test code = Alk Phos) 118 39-136 [facility] [employer] [id number] 09:37:00 Test Item Value Reference Range Interpretation Comments Bili Total (test code = Bili Total) 0.4 0.2-1.3 [facility] [employer] [id number] 09:37:00 Test Item Value Reference Range Interpretation Comments AGAP (test code = AGAP) 11.7 10.0-20.0 [facility] [employer]2022-10-16 09:37:00 Test Item Value Reference Range Interpretation Comments B/C Ratio (test code = B/C Ratio) 19 1 6-25 [facility] [employer]2022-10-16 09:37:00 Test Item Value Reference Range Interpretation Comments Globulin (test code = Globulin) 4.5 2.7-4.2 [facility] [employer] [id number] 09:37:00 Test Item Value Reference Range Interpretation Comments A/G Ratio (test code = A/G Ratio) 0.7 1 0.7-1.6 [facility] [employer] [id number] 09:37:00 Test Item Value Reference Range Interpretation Comments eGFR (test code = eGFR) 105 [place] [address]-10-16 09:37:00 Test Item Value Reference Range Interpretation Comments Phosphorus (test code = Phosphorus) 3.7 2.5-4.5 [place] [address]-10-16 09:37:00 Test Item Value Reference Range Interpretation Comments Magnesium Lvl (test code = Magnesium 2.1 1.8-2.4 Lvl) [place] [address]-10-16 09:37:00 Test Item Value Reference Range Interpretation Comments Procalcitonin Lvl (test no gt See_Comment [Au tomated message] code = Procalcitonin Lvl) Th e system which generated this result transmitted ref erence range: <=0.10. The reference range was not used to interpr et this result as normal/abnormal . [address]10-16 09:37:00 Test Item Value Reference Range Interpretation Comments WBC (test code = WBC) 15.7 3.7-10.4 [place] [address]-10-16 09:37:00 Test Item Value Reference Range Interpretation Comments RBC (test code = RBC) 4.10 4.20-5.40 [place] [address]-10-16 09:37:00 Test Item Value Reference Range Interpretation Comments Procalcitonin Lvl (test no gt See_Comment [Au tomated message] code = Procalcitonin Lvl) Th e system which generated this result transmitted ref erence range: <=0.10. The reference range was not used to interpr et this result as normal/abnormal . [place] [address]-10-16 09:37:00 Test Item Value Reference Range Interpretation Comments Glucose Lvl (test code = Glucose Lvl) 103 70-99 [address]10-16 09:37:00 Test Item Value Reference Range Interpretation Comments Hgb (test code = Hgb) 10.7 12.0-16.0 [place] [address]-10-16 09:37:00 Test Item Value Reference Range Interpretation Comments BUN (test code = BUN) 13 7-22 [place] [address]-10-16 09:37:00 Test Item Value Reference Range Interpretation Comments Creatinine Lvl (test code = Creatinine 0.67 0.50-1.40 Lvl) [place] 786342-10-16 09:37:00 Test Item Value Reference Range Interpretation Comments Sodium Lvl (test code = Sodium Lvl) 138 135-145 [place] 786342-10-16 09:37:00 Test Item Value Reference Range Interpretation Comments Potassium Lvl (test code = Potassium 3.7 3.5-5.1 Lvl) [place] [address]-10-16 09:37:00 Test Item Value Reference Range Interpretation Comments Chloride Lvl (test code = Chloride Lvl) 98 95-109 [place] [address]-10-16 09:37:00 Test Item Value Reference Range Interpretation Comments CO2 (test code = CO2) 32 24-32 [place] [address]-10-16 09:37:00 Test Item Value Reference Range Interpretation Comments Calcium Lvl (test code = Calcium Lvl) 9.3 8.5-10.5 [place] [address]-10-16 09:37:00 Test Item Value Reference Range Interpretation Comments Total Protein (test code = Total 7.5 6.4-8.4 Protein) [place] [address]-10-16 09:37:00 Test Item Value Reference Range Interpretation Comments Albumin Lvl (test code = Albumin Lvl) 3.0 3.5-5.0 [place] [address]-10-16 09:37:00 Test Item Value Reference Range Interpretation Comments ALT (test code = ALT) 18 See_Comment [Auto mated message] The system which ge nerated this result transmit fabiano reference range : <=65. The reference range was not used to interpr et this result as aleks l/abnormal. [place] 439852-10-16 09:37:00 Test Item Value Reference Range Interpretation Comments Hct (test code = Hct) 32.8 36.0-48.0 [place] [address]-10-16 09:37:00 Test Item Value Reference Range Interpretation Comments AST (test code = AST) 6 See_Comment [Auto mated message] The system which ge nerated this result transmit fabiano reference range : <=37. The reference range was not used to interpr et this result as aleks l/abnormal. [place] [address]-10-16 09:37:00 Test Item Value Reference Range Interpretation Comments Alk Phos (test code = Alk Phos) 118 39-136 [place] 786342-10-16 09:37:00 Test Item Value Reference Range Interpretation Comments Bili Total (test code = Bili Total) 0.4 0.2-1.3 [place] 786342-10-16 09:37:00 Test Item Value Reference Range Interpretation Comments AGAP (test code = AGAP) 11.7 10.0-20.0 [place] [address]-10-16 09:37:00 Test Item Value Reference Range Interpretation Comments B/C Ratio (test code = B/C Ratio) 19 1 6-25 [place] [address]-10-16 09:37:00 Test Item Value Reference Range Interpretation Comments Globulin (test code = Globulin) 4.5 2.7-4.2 [place] 786342-10-16 09:37:00 Test Item Value Reference Range Interpretation Comments A/G Ratio (test code = A/G Ratio) 0.7 1 0.7-1.6 [place] [address]-10-16 09:37:00 Test Item Value Reference Range Interpretation Comments eGFR (test code = eGFR) 105 [place] 786342-10-16 09:37:00 Test Item Value Reference Range Interpretation Comments Phosphorus (test code = Phosphorus) 3.7 2.5-4.5 [place] 786342-10-16 09:37:00 Test Item Value Reference Range Interpretation Comments Magnesium Lvl (test code = Magnesium 2.1 1.8-2.4 Lvl) [place] 439852-10-16 09:37:00 Test Item Value Reference Range Interpretation Comments MCV (test code = MCV) 80.0 80.0-98.0 [place] [address]-10-16 09:37:00 Test Item Value Reference Range Interpretation Comments Procalcitonin Lvl (test no gt See_Comment [Au tomated message] code = Procalcitonin Lvl) Th e system which generated this result transmitted ref erence range: <=0.10. The reference range was not used to interpr et this result as normal/abnormal . [facility] CenterHqgfntaJTGDFZPNMJ0250-48-47 09:37:00 Test Item Value Reference Range Interpretation Comments WBC (test code = WBC) 15.7 3.7-10.4 [facility] CenterGjljrjuOOZDMKDCLE3813-08-14 09:37:00 Test Item Value Reference Range Interpretation Comments RBC (test code = RBC) 4.10 4.20-5.40 [facility] CenterMuwpywtPYQAIFCHUU9975-03-45 09:37:00 Test Item Value Reference Range Interpretation Comments Hgb (test code = Hgb) 10.7 12.0-16.0 [place] 439852-10-16 09:37:00 Test Item Value Reference Range Interpretation Comments Hct (test code = Hct) 32.8 36.0-48.0 [facility] CenterEswecirLGMGLFOGND4656-58-32 09:37:00 Test Item Value Reference Range Interpretation Comments MCV (test code = MCV) 80.0 80.0-98.0 [facility] CenterKhhmoxuEZIWUJOFFW9223-38-73 09:37:00 Test Item Value Reference Range Interpretation Comments MCH (test code = MCH) 26.1 pg 27.0-31.0 [facility] CenterDcnrecmXUTWNOWCXS7514-24-00 09:37:00 Test Item Value Reference Range Interpretation Comments MCHC (test code = MCHC) 32.6 32.0-36.0 [facility] CenterZzpjyyfXFRFJLSKLF5742-32-33 09:37:00 Test Item Value Reference Range Interpretation Comments RDW (test code = RDW) 16.4 11.5-14.5 [facility] CenterTflnhqsKVNWWBAQIJ5188-06-43 09:37:00 Test Item Value Reference Range Interpretation Comments Platelet (test code = Platelet) 362 133-450 [facility] CenterAowevknEAJGGTZRYO0659-33-96 09:37:00 Test Item Value Reference Range Interpretation Comments MCH (test code = MCH) 26.1 pg 27.0-31.0 [place] [address]-10-16 09:37:00 Test Item Value Reference Range Interpretation Comments MPV (test code = MPV) 8.1 7.4-10.4 [place] 439852-10-16 09:37:00 Test Item Value Reference Range Interpretation Comments Segs (test code = Segs) 76.4 45.0-75.0 [place] 439852-10-16 09:37:00 Test Item Value Reference Range Interpretation Comments Lymphocytes (test code = Lymphocytes) 13.3 20.0-40.0 [place] 439852-10-16 09:37:00 Test Item Value Reference Range Interpretation Comments Monocytes (test code = Monocytes) 5.7 2.0-12.0 [facility] CenterNqnsfisIQKKXCNKJN1195-43-00 09:37:00 Test Item Value Reference Range Interpretation Comments Eosinophils (test code = 3.7 See_Comment [A utomated message] The Eosinophils) system which ge nerated this result tra nsmitted reference range : <=4.0. The reference r quynh was not used to int erpret this result as normal/abnormal . [facility] CenterAxljhkcIQBWWPCKSI8565-50-67 09:37:00 Test Item Value Reference Range Interpretation Comments Basophils (test code = 0.9 See_Comment [Aut omated message] The Basophils) system which ge nerated this result tra nsmitted reference range : <=1.0. The reference r quynh was not used to int erpret this result as normal/abnormal . [facility] CenterIzbrzxjAXYGJWQWNY0771-69-96 09:37:00 Test Item Value Reference Range Interpretation Comments Neutrophils # (test code = Neutrophils 12.0 1.5-8.1 #) [place] 439852-10-16 09:37:00 Test Item Value Reference Range Interpretation Comments Lymphocytes # (test code = Lymphocytes 2.1 1.0-5.5 #) [facility] CenterQorpkolOMHIVULXUS2167-59-27 09:37:00 Test Item Value Reference Range Interpretation Comments Monocytes # (test code 0.9 See_Comment [Aut omated message] The = Monocytes #) system which generated this result tra nsmitted reference range : <=0.8. The reference r quynh was not used to int erpret this result as normal/abnormal . [facility] CenterEbhilmuZMJITEMOVE8544-30-17 09:37:00 Test Item Value Reference Range Interpretation Comments Eosinophils # (test code 0.6 See_Comment [A utomated message] The = Eosinophils #) system whic h generated this result tra nsmitted reference range : <=0.5. The reference r quynh was not used to int erpret this result as normal/abnormal . [facility] CenterTqeekfiNZSLCCVXAS0116-33-25 09:37:00 Test Item Value Reference Range Interpretation Comments MCHC (test code = MCHC) 32.6 32.0-36.0 [place] 439852-10-16 09:37:00 Test Item Value Reference Range Interpretation Comments Basophils # (test code 0.1 See_Comment [Aut omated message] The = Basophils #) system which generated this result tra nsmitted reference range : <=0.2. The reference r quynh was not used to int erpret this result as normal/abnormal . [facility] CenterWkpbcztBSQGCTDCWO3273-28-43 09:37:00 Test Item Value Reference Range Interpretation Comments RDW (test code = RDW) 16.4 11.5-14.5 [place] 439852-10-16 09:37:00 Test Item Value Reference Range Interpretation Comments Platelet (test code = Platelet) 362 133-450 [place] 439852-10-16 09:37:00 Test Item Value Reference Range Interpretation Comments MPV (test code = MPV) 8.1 7.4-10.4 [facility] CenterNuuiqncJXXXGUGQMS5385-97-83 09:37:00 Test Item Value Reference Range Interpretation Comments Segs (test code = Segs) 76.4 45.0-75.0 [place] 439852-10-16 09:37:00 Test Item Value Reference Range Interpretation Comments Lymphocytes (test code = Lymphocytes) 13.3 20.0-40.0 [facility] CenterNxgkthdXNBGEIOWUI1036-07-08 09:37:00 Test Item Value Reference Range Interpretation Comments Monocytes (test code = Monocytes) 5.7 2.0-12.0 [facility] CenterDfhckkvMETIXBSZKX0156-77-78 09:37:00 Test Item Value Reference Range Interpretation Comments Eosinophils (test code = 3.7 See_Comment [A utomated message] The Eosinophils) system which ge nerated this result tra nsmitted reference range : <=4.0. The reference r quynh was not used to int erpret this result as normal/abnormal . [place] [address]-10-16 09:37:00 Test Item Value Reference Range Interpretation Comments Basophils (test code = 0.9 See_Comment [Aut omated message] The Basophils) system which ge nerated this result tra nsmitted reference range : <=1.0. The reference r quynh was not used to int erpret this result as normal/abnormal . [place] 439852-10-16 09:37:00 Test Item Value Reference Range Interpretation Comments Neutrophils # (test code = Neutrophils 12.0 1.5-8.1 #) [place] [address]-10-16 09:37:00 Test Item Value Reference Range Interpretation Comments Lymphocytes # (test code = Lymphocytes 2.1 1.0-5.5 #) [place] [address]-10-16 09:37:00 Test Item Value Reference Range Interpretation Comments Monocytes # (test code 0.9 See_Comment [Aut omated message] The = Monocytes #) system which generated this result tra nsmitted reference range : <=0.8. The reference r quynh was not used to int erpret this result as normal/abnormal . [place] [address]-10-16 09:37:00 Test Item Value Reference Range Interpretation Comments Eosinophils # (test code 0.6 See_Comment [A utomated message] The = Eosinophils #) system whic h generated this result tra nsmitted reference range : <=0.5. The reference r quynh was not used to int erpret this result as normal/abnormal . [place] [address]-10-16 09:37:00 Test Item Value Reference Range Interpretation Comments Basophils # (test code 0.1 See_Comment [Aut omated message] The = Basophils #) system which generated this result tra nsmitted reference range : <=0.2. The reference r quynh was not used to int erpret this result as normal/abnormal . [place] [address]-10-16 09:37:00 Test Item Value Reference Range Interpretation Comments Procalcitonin Lvl (test no gt See_Comment [Au tomated message] code = Procalcitonin Lvl) Th e system which generated this result transmitted ref erence range: <=0.10. The reference range was not used to interpr et this result as normal/abnormal . [place] [address]-10-16 09:37:00 Test Item Value Reference Range Interpretation Comments Glucose Lvl (test code = Glucose Lvl) 103 70-99 [place] [address]-10-16 09:37:00 Test Item Value Reference Range Interpretation Comments BUN (test code = BUN) 13 7-22 [place] [address]-10-16 09:37:00 Test Item Value Reference Range Interpretation Comments Creatinine Lvl (test code = Creatinine 0.67 0.50-1.40 Lvl) [place] 786342-10-16 09:37:00 Test Item Value Reference Range Interpretation Comments Sodium Lvl (test code = Sodium Lvl) 138 135-145 [place] 786342-10-16 09:37:00 Test Item Value Reference Range Interpretation Comments Potassium Lvl (test code = Potassium 3.7 3.5-5.1 Lvl) [place] 786342-10-16 09:37:00 Test Item Value Reference Range Interpretation Comments Chloride Lvl (test code = Chloride Lvl) 98 95-109 [place] 786342-10-16 09:37:00 Test Item Value Reference Range Interpretation Comments CO2 (test code = CO2) 32 24-32 [place] 786342-10-16 09:37:00 Test Item Value Reference Range Interpretation Comments Calcium Lvl (test code = Calcium Lvl) 9.3 8.5-10.5 [place] 786342-10-16 09:37:00 Test Item Value Reference Range Interpretation Comments Total Protein (test code = Total 7.5 6.4-8.4 Protein) [place] 786342-10-16 09:37:00 Test Item Value Reference Range Interpretation Comments Albumin Lvl (test code = Albumin Lvl) 3.0 3.5-5.0 [place] 786342-10-16 09:37:00 Test Item Value Reference Range Interpretation Comments ALT (test code = ALT) 18 See_Comment [Auto mated message] The system which ge nerated this result transmit fabiano reference range : <=65. The reference range was not used to interpr et this result as aleks l/abnormal. [place] [address]-10-16 09:37:00 Test Item Value Reference Range Interpretation Comments AST (test code = AST) 6 See_Comment [Auto mated message] The system which ge nerated this result transmit fabiano reference range : <=37. The reference range was not used to interpr et this result as aleks l/abnormal. [place] [address]-10-16 09:37:00 Test Item Value Reference Range Interpretation Comments Alk Phos (test code = Alk Phos) 118 39-136 [place] 786342-10-16 09:37:00 Test Item Value Reference Range Interpretation Comments Bili Total (test code = Bili Total) 0.4 0.2-1.3 [facility]2022-10-16 09:37:00 Test Item Value Reference Range Interpretation Comments AGAP (test code = AGAP) 11.7 10.0-20.0 [facility]2022-10-16 09:37:00 Test Item Value Reference Range Interpretation Comments B/C Ratio (test code = B/C Ratio) 19 1 6-25 [place] 786342-10-16 09:37:00 Test Item Value Reference Range Interpretation Comments Globulin (test code = Globulin) 4.5 2.7-4.2 [facility]2022-10-16 09:37:00 Test Item Value Reference Range Interpretation Comments A/G Ratio (test code = A/G Ratio) 0.7 1 0.7-1.6 [place] 786342-10-16 09:37:00 Test Item Value Reference Range Interpretation Comments eGFR (test code = eGFR) 105 [facility]2022-10-16 09:37:00 Test Item Value Reference Range Interpretation Comments Phosphorus (test code = Phosphorus) 3.7 2.5-4.5 [place] 786342-10-16 09:37:00 Test Item Value Reference Range Interpretation Comments Magnesium Lvl (test code = Magnesium 2.1 1.8-2.4 Lvl) [facility] CenterAtnjeraAKHTPQARK6930-28-14 09:37:00 Test Item Value Reference Range Interpretation Comments Procalcitonin Lvl (test no gt See_Comment [Au tomated message] code = Procalcitonin Lvl) e system which generated this result transmitted ref erence range: <=0.10. The reference range was not used to interpr et this result as normal/abnormal . [facility] CenterJnyycxsKCGIJWBSWU3747-83-18 09:37:00 Test Item Value Reference Range Interpretation Comments WBC (test code = WBC) 15.7 3.7-10.4 [place] 439852-10-16 09:37:00 Test Item Value Reference Range Interpretation Comments RBC (test code = RBC) 4.10 4.20-5.40 [place] 439852-10-16 09:37:00 Test Item Value Reference Range Interpretation Comments Hgb (test code = Hgb) 10.7 12.0-16.0 [place] 439852-10-16 09:37:00 Test Item Value Reference Range Interpretation Comments Hct (test code = Hct) 32.8 36.0-48.0 [place] 439852-10-16 09:37:00 Test Item Value Reference Range Interpretation Comments MCV (test code = MCV) 80.0 80.0-98.0 [facility] CenterYntvqqvGANSATEBAY4852-08-43 09:37:00 Test Item Value Reference Range Interpretation Comments MCH (test code = MCH) 26.1 pg 27.0-31.0 [facility] CenterFywknzmCXJFGWEKJS7666-11-40 09:37:00 Test Item Value Reference Range Interpretation Comments MCHC (test code = MCHC) 32.6 32.0-36.0 [facility] CenterMcgufbgBQPGUCKDWB2045-44-62 09:37:00 Test Item Value Reference Range Interpretation Comments RDW (test code = RDW) 16.4 11.5-14.5 [facility] CenterNsrdvjnQSQBQLQDVJ1822-41-82 09:37:00 Test Item Value Reference Range Interpretation Comments Platelet (test code = Platelet) 362 133-450 [facility] CenterArfwyudGTQVGMWHMI6696-54-07 09:37:00 Test Item Value Reference Range Interpretation Comments MPV (test code = MPV) 8.1 7.4-10.4 [place] 439852-10-16 09:37:00 Test Item Value Reference Range Interpretation Comments Segs (test code = Segs) 76.4 45.0-75.0 [place] 439852-10-16 09:37:00 Test Item Value Reference Range Interpretation Comments Lymphocytes (test code = Lymphocytes) 13.3 20.0-40.0 [place] 439852-10-16 09:37:00 Test Item Value Reference Range Interpretation Comments Monocytes (test code = Monocytes) 5.7 2.0-12.0 [place] 439852-10-16 09:37:00 Test Item Value Reference Range Interpretation Comments Eosinophils (test code = 3.7 See_Comment [A utomated message] The Eosinophils) system which ge nerated this result tra nsmitted reference range : <=4.0. The reference r quynh was not used to int erpret this result as normal/abnormal . [facility] CenterZakyhlbIUUJAMXAXK3206-02-78 09:37:00 Test Item Value Reference Range Interpretation Comments Basophils (test code = 0.9 See_Comment [Aut omated message] The Basophils) system which ge nerated this result tra nsmitted reference range : <=1.0. The reference r quynh was not used to int erpret this result as normal/abnormal . [facility] CenterLqtfjocOHGNZPMPDE6445-65-11 09:37:00 Test Item Value Reference Range Interpretation Comments Neutrophils # (test code = Neutrophils 12.0 1.5-8.1 #) [facility] CenterUyyvrdrMPWWPXVGKH7267-80-72 09:37:00 Test Item Value Reference Range Interpretation Comments Lymphocytes # (test code = Lymphocytes 2.1 1.0-5.5 #) [facility] CenterOizsasgLVCBRAUKVW0508-24-20 09:37:00 Test Item Value Reference Range Interpretation Comments Monocytes # (test code 0.9 See_Comment [Aut omated message] The = Monocytes #) system which generated this result tra nsmitted reference range : <=0.8. The reference r quynh was not used to int erpret this result as normal/abnormal . [facility] CenterUabngrsQMQANYUAYD4434-02-01 09:37:00 Test Item Value Reference Range Interpretation Comments Eosinophils # (test code 0.6 See_Comment [A utomated message] The = Eosinophils #) system whic h generated this result tra nsmitted reference range : <=0.5. The reference r quynh was not used to int erpret this result as normal/abnormal . [facility] CenterFgohtpxFELUDQTSFU9317-53-39 09:37:00 Test Item Value Reference Range Interpretation Comments Basophils # (test code 0.1 See_Comment [Aut omated message] The = Basophils #) system which generated this result tra nsmitted reference range : <=0.2. The reference r quynh was not used to int erpret this result as normal/abnormal . [facility]2022-10-16 09:37:00 Test Item Value Reference Range Interpretation Comments Procalcitonin Lvl (test no gt See_Comment [Au tomated message] code = Procalcitonin Lvl) Th e system which generated this result transmitted ref erence range: <=0.10. The reference range was not used to interpr et this result as normal/abnormal . [place] 786342-10-16 09:37:00 Test Item Value Reference Range Interpretation Comments Glucose Lvl (test code = Glucose Lvl) 103 70-99 [place] 786342-10-16 09:37:00 Test Item Value Reference Range Interpretation Comments BUN (test code = BUN) 13 7-22 [place] 786342-10-16 09:37:00 Test Item Value Reference Range Interpretation Comments Creatinine Lvl (test code = Creatinine 0.67 0.50-1.40 Lvl) [place] 786342-10-16 09:37:00 Test Item Value Reference Range Interpretation Comments Sodium Lvl (test code = Sodium Lvl) 138 135-145 [place] 786342-10-16 09:37:00 Test Item Value Reference Range Interpretation Comments Potassium Lvl (test code = Potassium 3.7 3.5-5.1 Lvl) [place] 786342-10-16 09:37:00 Test Item Value Reference Range Interpretation Comments Chloride Lvl (test code = Chloride Lvl) 98 95-109 [place] [address]-10-16 09:37:00 Test Item Value Reference Range Interpretation Comments CO2 (test code = CO2) 32 24-32 [place] 786342-10-16 09:37:00 Test Item Value Reference Range Interpretation Comments Calcium Lvl (test code = Calcium Lvl) 9.3 8.5-10.5 [place] 786342-10-16 09:37:00 Test Item Value Reference Range Interpretation Comments Total Protein (test code = Total 7.5 6.4-8.4 Protein) [place] 786342-10-16 09:37:00 Test Item Value Reference Range Interpretation Comments Albumin Lvl (test code = Albumin Lvl) 3.0 3.5-5.0 [place] 786342-10-16 09:37:00 Test Item Value Reference Range Interpretation Comments ALT (test code = ALT) 18 See_Comment [Auto mated message] The system which ge nerated this result transmit fabiano reference range : <=65. The reference range was not used to interpr et this result as aleks l/abnormal. [place] 786342-10-16 09:37:00 Test Item Value Reference Range Interpretation Comments AST (test code = AST) 6 See_Comment [Auto mated message] The system which ge nerated this result transmit fabiano reference range : <=37. The reference range was not used to interpr et this result as aleks l/abnormal. [facility] SMDUA3829-74-19 09:37:00 Test Item Value Reference Range Interpretation Comments Alk Phos (test code = Alk Phos) 118 39-136 [facility] SJPVG6298-89-90 09:37:00 Test Item Value Reference Range Interpretation Comments Bili Total (test code = Bili Total) 0.4 0.2-1.3 [facility] FTSSS2366-90-02 09:37:00 Test Item Value Reference Range Interpretation Comments AGAP (test code = AGAP) 11.7 10.0-20.0 [facility] ONSTS0725-62-70 09:37:00 Test Item Value Reference Range Interpretation Comments B/C Ratio (test code = B/C Ratio) 19 1 6-25 [facility] ICRHM8100-10-86 09:37:00 Test Item Value Reference Range Interpretation Comments Globulin (test code = Globulin) 4.5 2.7-4.2 [facility] HospitalNetevenJON [facility] [address]CJHKA5725-27-84 09:37:00 Test Item Value Reference Range Interpretation Comments A/G Ratio (test code = A/G Ratio) 0.7 1 0.7-1.6 [place] [address]-10-16 09:37:00 Test Item Value Reference Range Interpretation Comments eGFR (test code = eGFR) 105 [facility] HospitalNetevenMARK [facility] [address]CUCJV6765-14-87 09:37:00 Test Item Value Reference Range Interpretation Comments Phosphorus (test code = Phosphorus) 3.7 2.5-4.5 [place] [address]-10-16 09:37:00 Test Item Value Reference Range Interpretation Comments Magnesium Lvl (test code = Magnesium 2.1 1.8-2.4 Lvl) [place] [address]-10-16 09:37:00 Test Item Value Reference Range Interpretation Comments Procalcitonin Lvl (test no gt See_Comment [Au tomated message] code = Procalcitonin Lvl) Th e system which generated this result transmitted ref erence range: <=0.10. The reference range was not used to interpr et this result as normal/abnormal . [facility] CenterPdppsbuAUCEUQJTSW4768-57-45 09:37:00 Test Item Value Reference Range Interpretation Comments WBC (test code = WBC) 15.7 3.7-10.4 [facility] CenterCbmluwvMJTBWZDSCS8514-82-70 09:37:00 Test Item Value Reference Range Interpretation Comments RBC (test code = RBC) 4.10 4.20-5.40 [facility] CenterElsnimpTOMEPJFEVN7045-21-55 09:37:00 Test Item Value Reference Range Interpretation Comments Hgb (test code = Hgb) 10.7 12.0-16.0 [facility] CenterEjtmvpaEAYBEGGDQP0034-57-87 09:37:00 Test Item Value Reference Range Interpretation Comments Hct (test code = Hct) 32.8 36.0-48.0 [facility] CenterFebtveuDLTSYXUCLB5761-48-49 09:37:00 Test Item Value Reference Range Interpretation Comments MCV (test code = MCV) 80.0 80.0-98.0 [facility] CenterNatpjqnSHKWMCXNKK2194-55-54 09:37:00 Test Item Value Reference Range Interpretation Comments MCH (test code = MCH) 26.1 pg 27.0-31.0 [facility] CenterRspxbwcVDSXGNBXHS0082-68-98 09:37:00 Test Item Value Reference Range Interpretation Comments MCHC (test code = MCHC) 32.6 32.0-36.0 [facility] CenterEsarmrzYQNBUKRQVF8705-24-04 09:37:00 Test Item Value Reference Range Interpretation Comments RDW (test code = RDW) 16.4 11.5-14.5 [facility] CenterBmxqdpnVRYBLXNJZJ6815-32-54 09:37:00 Test Item Value Reference Range Interpretation Comments Platelet (test code = Platelet) 362 133-450 [facility] CenterYjjxuibDDUYLMGYGX6507-63-52 09:37:00 Test Item Value Reference Range Interpretation Comments MPV (test code = MPV) 8.1 7.4-10.4 [facility] CenterNrppqqvIEIKKMCNPV7471-47-42 09:37:00 Test Item Value Reference Range Interpretation Comments Segs (test code = Segs) 76.4 45.0-75.0 [facility] CenterAtvzfxsKWRAUNNRNO2351-24-63 09:37:00 Test Item Value Reference Range Interpretation Comments Lymphocytes (test code = Lymphocytes) 13.3 20.0-40.0 [place] [address]-10-16 09:37:00 Test Item Value Reference Range Interpretation Comments Monocytes (test code = Monocytes) 5.7 2.0-12.0 [place] [address]-10-16 09:37:00 Test Item Value Reference Range Interpretation Comments Eosinophils (test code = 3.7 See_Comment [A utomated message] The Eosinophils) system which ge nerated this result tra nsmitted reference range : <=4.0. The reference r quynh was not used to int erpret this result as normal/abnormal . [address]10-16 09:37:00 Test Item Value Reference Range Interpretation Comments Basophils (test code = 0.9 See_Comment [Aut omated message] The Basophils) system which ge nerated this result tra nsmitted reference range : <=1.0. The reference r quynh was not used to int erpret this result as normal/abnormal . [place] [address]-10-16 09:37:00 Test Item Value Reference Range Interpretation Comments Neutrophils # (test code = Neutrophils 12.0 1.5-8.1 #) [address]10-16 09:37:00 Test Item Value Reference Range Interpretation Comments Lymphocytes # (test code = Lymphocytes 2.1 1.0-5.5 #) [place] [address]-10-16 09:37:00 Test Item Value Reference Range Interpretation Comments Monocytes # (test code 0.9 See_Comment [Aut omated message] The = Monocytes #) system which generated this result tra nsmitted reference range : <=0.8. The reference r quynh was not used to int erpret this result as normal/abnormal . [place] [address]-10-16 09:37:00 Test Item Value Reference Range Interpretation Comments Eosinophils # (test code 0.6 See_Comment [A utomated message] The = Eosinophils #) system whic h generated this result tra nsmitted reference range : <=0.5. The reference r quynh was not used to int erpret this result as normal/abnormal . [place] [address]-10-16 09:37:00 Test Item Value Reference Range Interpretation Comments Basophils # (test code 0.1 See_Comment [Aut omated message] The = Basophils #) system which generated this result tra nsmitted reference range : <=0.2. The reference r quynh was not used to int erpret this result as normal/abnormal . [facility] [id number] 09:37:00 Test Item Value Reference Range Interpretation Comments Procalcitonin Lvl (test no gt See_Comment [Au tomated message] code = Procalcitonin Lvl) Th e system which generated this result transmitted ref erence range: <=0.10. The reference range was not used to interpr et this result as normal/abnormal . [facility] [id number] 09:37:00 Test Item Value Reference Range Interpretation Comments Glucose Lvl (test code = Glucose Lvl) 103 70-99 [facility] [id number] 09:37:00 Test Item Value Reference Range Interpretation Comments BUN (test code = BUN) 13 7-22 [facility] [id number] 09:37:00 Test Item Value Reference Range Interpretation Comments Creatinine Lvl (test code = Creatinine 0.67 0.50-1.40 Lvl) [facility] [id number] 09:37:00 Test Item Value Reference Range Interpretation Comments Sodium Lvl (test code = Sodium Lvl) 138 135-145 [facility] [id number] 09:37:00 Test Item Value Reference Range Interpretation Comments Potassium Lvl (test code = Potassium 3.7 3.5-5.1 Lvl) [facility] [id number] 09:37:00 Test Item Value Reference Range Interpretation Comments Chloride Lvl (test code = Chloride Lvl) 98 95-109 [facility] [id number] 09:37:00 Test Item Value Reference Range Interpretation Comments CO2 (test code = CO2) 32 24-32 [facility] [id number] 09:37:00 Test Item Value Reference Range Interpretation Comments Calcium Lvl (test code = Calcium Lvl) 9.3 8.5-10.5 [facility] [id number] 09:37:00 Test Item Value Reference Range Interpretation Comments Total Protein (test code = Total 7.5 6.4-8.4 Protein) [facility] [id number] 09:37:00 Test Item Value Reference Range Interpretation Comments Albumin Lvl (test code = Albumin Lvl) 3.0 3.5-5.0 [facility] [employer]2022-10-16 09:37:00 Test Item Value Reference Range Interpretation Comments ALT (test code = ALT) 18 See_Comment [Auto mated message] The system which ge nerated this result transmit fabiano reference range : <=65. The reference range was not used to interpr et this result as aleks l/abnormal. [facility] [employer] [id number] 09:37:00 Test Item Value Reference Range Interpretation Comments AST (test code = AST) 6 See_Comment [Auto mated message] The system which ge nerated this result transmit fabiano reference range : <=37. The reference range was not used to interpr et this result as aleks l/abnormal. [facility] [employer]2022-10-16 09:37:00 Test Item Value Reference Range Interpretation Comments Alk Phos (test code = Alk Phos) 118 39-136 [facility] [employer]2022-10-16 09:37:00 Test Item Value Reference Range Interpretation Comments Bili Total (test code = Bili Total) 0.4 0.2-1.3 [facility] [employer] [id number] 09:37:00 Test Item Value Reference Range Interpretation Comments AGAP (test code = AGAP) 11.7 10.0-20.0 [facility] [employer]2022-10-16 09:37:00 Test Item Value Reference Range Interpretation Comments B/C Ratio (test code = B/C Ratio) 19 1 6-25 [facility] [employer] [id number] 09:37:00 Test Item Value Reference Range Interpretation Comments Globulin (test code = Globulin) 4.5 2.7-4.2 [facility] [employer]-10-16 09:37:00 Test Item Value Reference Range Interpretation Comments A/G Ratio (test code = A/G Ratio) 0.7 1 0.7-1.6 [facility] [employer]2022-10-16 09:37:00 Test Item Value Reference Range Interpretation Comments eGFR (test code = eGFR) 105 [facility] [employer] [id number] 09:37:00 Test Item Value Reference Range Interpretation Comments Phosphorus (test code = Phosphorus) 3.7 2.5-4.5 [facility] be[employer]2-10-16 09:37:00 Test Item Value Reference Range Interpretation Comments Magnesium Lvl (test code = Magnesium 2.1 1.8-2.4 Lvl) [place] 675862-10-16 09:37:00 Test Item Value Reference Range Interpretation Comments Procalcitonin Lvl (test no gt See_Comment [Au tomated message] code = Procalcitonin Lvl) Th e system which generated this result transmitted ref erence range: <=0.10. The reference range was not used to interpr et this result as normal/abnormal . [facility] [id number] 09:37:00 Test Item Value Reference Range Interpretation Comments WBC (test code = WBC) 15.7 3.7-10.4 [place] 439852-10-16 09:37:00 Test Item Value Reference Range Interpretation Comments RBC (test code = RBC) 4.10 4.20-5.40 [place] 439852-10-16 09:37:00 Test Item Value Reference Range Interpretation Comments Hgb (test code = Hgb) 10.7 12.0-16.0 [place] [address]-10-16 09:37:00 Test Item Value Reference Range Interpretation Comments Hct (test code = Hct) 32.8 36.0-48.0 [place] [address]-10-16 09:37:00 Test Item Value Reference Range Interpretation Comments MCV (test code = MCV) 80.0 80.0-98.0 [place] [address]-10-16 09:37:00 Test Item Value Reference Range Interpretation Comments MCH (test code = MCH) 26.1 pg 27.0-31.0 [place] 439852-10-16 09:37:00 Test Item Value Reference Range Interpretation Comments MCHC (test code = MCHC) 32.6 32.0-36.0 [place] [address]-10-16 09:37:00 Test Item Value Reference Range Interpretation Comments RDW (test code = RDW) 16.4 11.5-14.5 [facility] [id number] 09:37:00 Test Item Value Reference Range Interpretation Comments Platelet (test code = Platelet) 362 133-450 [facility] CenterVkgwsntIZHIPHTBFP0585-45-60 09:37:00 Test Item Value Reference Range Interpretation Comments MPV (test code = MPV) 8.1 7.4-10.4 [place] 439852-10-16 09:37:00 Test Item Value Reference Range Interpretation Comments Segs (test code = Segs) 76.4 45.0-75.0 [place] 439852-10-16 09:37:00 Test Item Value Reference Range Interpretation Comments Lymphocytes (test code = Lymphocytes) 13.3 20.0-40.0 [place] 439852-10-16 09:37:00 Test Item Value Reference Range Interpretation Comments Monocytes (test code = Monocytes) 5.7 2.0-12.0 [place] 439852-10-16 09:37:00 Test Item Value Reference Range Interpretation Comments Eosinophils (test code = 3.7 See_Comment [A utomated message] The Eosinophils) system which ge nerated this result tra nsmitted reference range : <=4.0. The reference r quynh was not used to int erpret this result as normal/abnormal . [facility] CenterBtpnqhlOEAIDBTXJQ4906-68-47 09:37:00 Test Item Value Reference Range Interpretation Comments Basophils (test code = 0.9 See_Comment [Aut omated message] The Basophils) system which ge nerated this result tra nsmitted reference range : <=1.0. The reference r quynh was not used to int erpret this result as normal/abnormal . [facility] CenterVcgjwhpWLSXGYVGEN8750-24-20 09:37:00 Test Item Value Reference Range Interpretation Comments Neutrophils # (test code = Neutrophils 12.0 1.5-8.1 #) [place] 439852-10-16 09:37:00 Test Item Value Reference Range Interpretation Comments Lymphocytes # (test code = Lymphocytes 2.1 1.0-5.5 #) [place] [address]-10-16 09:37:00 Test Item Value Reference Range Interpretation Comments Monocytes # (test code 0.9 See_Comment [Aut omated message] The = Monocytes #) system which generated this result tra nsmitted reference range : <=0.8. The reference r quynh was not used to int erpret this result as normal/abnormal . [facility] CenterYbglhxcVCTBQLYUJP6299-18-79 09:37:00 Test Item Value Reference Range Interpretation Comments Eosinophils # (test code 0.6 See_Comment [A utomated message] The = Eosinophils #) system whic h generated this result tra nsmitted reference range : <=0.5. The reference r quynh was not used to int erpret this result as normal/abnormal . [facility] CenterPqdwveaTZPTFNIEJR7652-95-09 09:37:00 Test Item Value Reference Range Interpretation Comments Basophils # (test code 0.1 See_Comment [Aut omated message] The = Basophils #) system which generated this result tra nsmitted reference range : <=0.2. The reference r quynh was not used to int erpret this result as normal/abnormal . [facility] [id number] 09:37:00 Test Item Value Reference Range Interpretation Comments Procalcitonin Lvl (test no gt See_Comment [Au tomated message] code = Procalcitonin Lvl) Th e system which generated this result transmitted ref erence range: <=0.10. The reference range was not used to interpr et this result as normal/abnormal . [facility] [id number] 09:37:00 Test Item Value Reference Range Interpretation Comments Glucose Lvl (test code = Glucose Lvl) 103 70-99 [facility] [id number] 09:37:00 Test Item Value Reference Range Interpretation Comments BUN (test code = BUN) 13 7-22 [facility] [id number] 09:37:00 Test Item Value Reference Range Interpretation Comments Creatinine Lvl (test code = Creatinine 0.67 0.50-1.40 Lvl) [facility] [id number] 09:37:00 Test Item Value Reference Range Interpretation Comments Sodium Lvl (test code = Sodium Lvl) 138 135-145 [facility] [id number] 09:37:00 Test Item Value Reference Range Interpretation Comments Potassium Lvl (test code = Potassium 3.7 3.5-5.1 Lvl) [facility] [id number] 09:37:00 Test Item Value Reference Range Interpretation Comments Chloride Lvl (test code = Chloride Lvl) 98 95-109 [facility] [id number] 09:37:00 Test Item Value Reference Range Interpretation Comments CO2 (test code = CO2) 32 24-32 [facility]NetevenCHE[facility] [id number] 09:37:00 Test Item Value Reference Range Interpretation Comments Calcium Lvl (test code = Calcium Lvl) 9.3 8.5-10.5 [facility] [id number] 09:37:00 Test Item Value Reference Range Interpretation Comments Total Protein (test code = Total 7.5 6.4-8.4 Protein) [facility] [id number] 09:37:00 Test Item Value Reference Range Interpretation Comments Albumin Lvl (test code = Albumin Lvl) 3.0 3.5-5.0 [facility] [employer] [id number] 09:37:00 Test Item Value Reference Range Interpretation Comments ALT (test code = ALT) 18 See_Comment [Auto mated message] The system which ge nerated this result transmit fabiano reference range : <=65. The reference range was not used to interpr et this result as aleks l/abnormal. [facility] [employer] [id number] 09:37:00 Test Item Value Reference Range Interpretation Comments AST (test code = AST) 6 See_Comment [Auto mated message] The system which ge nerated this result transmit fabiano reference range : <=37. The reference range was not used to interpr et this result as aleks l/abnormal. [facility] [employer] [id number] 09:37:00 Test Item Value Reference Range Interpretation Comments Alk Phos (test code = Alk Phos) 118 39-136 [facility] [employer] [id number] 09:37:00 Test Item Value Reference Range Interpretation Comments Bili Total (test code = Bili Total) 0.4 0.2-1.3 [facility] [employer] [id number] 09:37:00 Test Item Value Reference Range Interpretation Comments AGAP (test code = AGAP) 11.7 10.0-20.0 [facility] [employer] [id number] 09:37:00 Test Item Value Reference Range Interpretation Comments B/C Ratio (test code = B/C Ratio) 19 1 6-25 [facility] [employer] [id number] 09:37:00 Test Item Value Reference Range Interpretation Comments Globulin (test code = Globulin) 4.5 2.7-4.2 [facility] [employer] [id number] 09:37:00 Test Item Value Reference Range Interpretation Comments A/G Ratio (test code = A/G Ratio) 0.7 1 0.7-1.6 [place] [address]-10-16 09:37:00 Test Item Value Reference Range Interpretation Comments eGFR (test code = eGFR) 105 [place] 786342-10-16 09:37:00 Test Item Value Reference Range Interpretation Comments Phosphorus (test code = Phosphorus) 3.7 2.5-4.5 [place] [address]-10-16 09:37:00 Test Item Value Reference Range Interpretation Comments Magnesium Lvl (test code = Magnesium 2.1 1.8-2.4 Lvl) [place] [address]-10-16 09:37:00 Test Item Value Reference Range Interpretation Comments Procalcitonin Lvl (test no gt See_Comment [Au tomated message] code = Procalcitonin Lvl) e system which generated this result transmitted ref erence range: <=0.10. The reference range was not used to interpr et this result as normal/abnormal . [place] [address]-10-16 09:37:00 Test Item Value Reference Range Interpretation Comments WBC (test code = WBC) 15.7 3.7-10.4 [place] [address]-10-16 09:37:00 Test Item Value Reference Range Interpretation Comments RBC (test code = RBC) 4.10 4.20-5.40 [place] [address]-10-16 09:37:00 Test Item Value Reference Range Interpretation Comments Hgb (test code = Hgb) 10.7 12.0-16.0 [place] [address]-10-16 09:37:00 Test Item Value Reference Range Interpretation Comments Hct (test code = Hct) 32.8 36.0-48.0 [place] [address]-10-16 09:37:00 Test Item Value Reference Range Interpretation Comments MCV (test code = MCV) 80.0 80.0-98.0 [place] [address]-10-16 09:37:00 Test Item Value Reference Range Interpretation Comments MCH (test code = MCH) 26.1 pg 27.0-31.0 [place] [address]-10-16 09:37:00 Test Item Value Reference Range Interpretation Comments MCHC (test code = MCHC) 32.6 32.0-36.0 [place] 439852-10-16 09:37:00 Test Item Value Reference Range Interpretation Comments RDW (test code = RDW) 16.4 11.5-14.5 [place] 439852-10-16 09:37:00 Test Item Value Reference Range Interpretation Comments Platelet (test code = Platelet) 362 133-450 [facility] CenterIuuwkmmOTSMOXFPRO4688-38-16 09:37:00 Test Item Value Reference Range Interpretation Comments MPV (test code = MPV) 8.1 7.4-10.4 [place] 439852-10-16 09:37:00 Test Item Value Reference Range Interpretation Comments Segs (test code = Segs) 76.4 45.0-75.0 [place] 439852-10-16 09:37:00 Test Item Value Reference Range Interpretation Comments Lymphocytes (test code = Lymphocytes) 13.3 20.0-40.0 [place] 439852-10-16 09:37:00 Test Item Value Reference Range Interpretation Comments Monocytes (test code = Monocytes) 5.7 2.0-12.0 [place] 439852-10-16 09:37:00 Test Item Value Reference Range Interpretation Comments Eosinophils (test code = 3.7 See_Comment [A utomated message] The Eosinophils) system which ge nerated this result tra nsmitted reference range : <=4.0. The reference r quynh was not used to int erpret this result as normal/abnormal . [facility] [id number] 09:37:00 Test Item Value Reference Range Interpretation Comments Basophils (test code = 0.9 See_Comment [Aut omated message] The Basophils) system which ge nerated this result tra nsmitted reference range : <=1.0. The reference r quynh was not used to int erpret this result as normal/abnormal . [place] 439852-10-16 09:37:00 Test Item Value Reference Range Interpretation Comments Neutrophils # (test code = Neutrophils 12.0 1.5-8.1 #) [place] 439852-10-16 09:37:00 Test Item Value Reference Range Interpretation Comments Lymphocytes # (test code = Lymphocytes 2.1 1.0-5.5 #) [place] [address]-10-16 09:37:00 Test Item Value Reference Range Interpretation Comments Monocytes # (test code 0.9 See_Comment [Aut omated message] The = Monocytes #) system which generated this result tra nsmitted reference range : <=0.8. The reference r quynh was not used to int erpret this result as normal/abnormal . [place] 439852-10-16 09:37:00 Test Item Value Reference Range Interpretation Comments Eosinophils # (test code 0.6 See_Comment [A utomated message] The = Eosinophils #) system whic h generated this result tra nsmitted reference range : <=0.5. The reference r quynh was not used to int erpret this result as normal/abnormal . [place] 439852-10-16 09:37:00 Test Item Value Reference Range Interpretation Comments Basophils # (test code 0.1 See_Comment [Aut omated message] The = Basophils #) system which generated this result tra nsmitted reference range : <=0.2. The reference r quynh was not used to int erpret this result as normal/abnormal . [facility] [id number] 09:37:00 Test Item Value Reference Range Interpretation Comments Procalcitonin Lvl (test no gt See_Comment [Au tomated message] code = Procalcitonin Lvl) Th e system which generated this result transmitted ref erence range: <=0.10. The reference range was not used to interpr et this result as normal/abnormal . [facility] [id number] 09:37:00 Test Item Value Reference Range Interpretation Comments Glucose Lvl (test code = Glucose Lvl) 103 70-99 [facility] [id number] 09:37:00 Test Item Value Reference Range Interpretation Comments BUN (test code = BUN) 13 7-22 [facility] [id number] 09:37:00 Test Item Value Reference Range Interpretation Comments Creatinine Lvl (test code = Creatinine 0.67 0.50-1.40 Lvl) [place] 786342-10-16 09:37:00 Test Item Value Reference Range Interpretation Comments Sodium Lvl (test code = Sodium Lvl) 138 135-145 [place] 786342-10-16 09:37:00 Test Item Value Reference Range Interpretation Comments Potassium Lvl (test code = Potassium 3.7 3.5-5.1 Lvl) [place] [address]-10-16 09:37:00 Test Item Value Reference Range Interpretation Comments Chloride Lvl (test code = Chloride Lvl) 98 95-109 [place] [address]-10-16 09:37:00 Test Item Value Reference Range Interpretation Comments CO2 (test code = CO2) 32 24-32 [place] [address]-10-16 09:37:00 Test Item Value Reference Range Interpretation Comments Calcium Lvl (test code = Calcium Lvl) 9.3 8.5-10.5 [place] 786342-10-16 09:37:00 Test Item Value Reference Range Interpretation Comments Total Protein (test code = Total 7.5 6.4-8.4 Protein) [address]10-16 09:37:00 Test Item Value Reference Range Interpretation Comments Albumin Lvl (test code = Albumin Lvl) 3.0 3.5-5.0 [place] [address]-10-16 09:37:00 Test Item Value Reference Range Interpretation Comments ALT (test code = ALT) 18 See_Comment [Auto mated message] The system which ge nerated this result transmit fabiano reference range : <=65. The reference range was not used to interpr et this result as aleks l/abnormal. [place] [address]-10-16 09:37:00 Test Item Value Reference Range Interpretation Comments AST (test code = AST) 6 See_Comment [Auto mated message] The system which ge nerated this result transmit fabiano reference range : <=37. The reference range was not used to interpr et this result as aleks l/abnormal. [place] [address]-10-16 09:37:00 Test Item Value Reference Range Interpretation Comments Alk Phos (test code = Alk Phos) 118 39-136 [place] [address]-10-16 09:37:00 Test Item Value Reference Range Interpretation Comments Bili Total (test code = Bili Total) 0.4 0.2-1.3 [place] [address]-10-16 09:37:00 Test Item Value Reference Range Interpretation Comments AGAP (test code = AGAP) 11.7 10.0-20.0 [place] [address]-10-16 09:37:00 Test Item Value Reference Range Interpretation Comments B/C Ratio (test code = B/C Ratio) 19 1 6-25 [place] [address]-10-16 09:37:00 Test Item Value Reference Range Interpretation Comments Globulin (test code = Globulin) 4.5 2.7-4.2 [place] [address]-10-16 09:37:00 Test Item Value Reference Range Interpretation Comments A/G Ratio (test code = A/G Ratio) 0.7 1 0.7-1.6 [place] [address]-10-16 09:37:00 Test Item Value Reference Range Interpretation Comments eGFR (test code = eGFR) 105 [place] 786342-10-16 09:37:00 Test Item Value Reference Range Interpretation Comments Phosphorus (test code = Phosphorus) 3.7 2.5-4.5 [place] 786342-10-16 09:37:00 Test Item Value Reference Range Interpretation Comments Magnesium Lvl (test code = Magnesium 2.1 1.8-2.4 Lvl) [place] [address]-10-16 09:37:00 Test Item Value Reference Range Interpretation Comments Procalcitonin Lvl (test no gt See_Comment [Au tomated message] code = Procalcitonin Lvl) e system which generated this result transmitted ref erence range: <=0.10. The reference range was not used to interpr et this result as normal/abnormal . [place] [address]-10-16 09:37:00 Test Item Value Reference Range Interpretation Comments WBC (test code = WBC) 15.7 3.7-10.4 [place] [address]-10-16 09:37:00 Test Item Value Reference Range Interpretation Comments RBC (test code = RBC) 4.10 4.20-5.40 [place] [address]-10-16 09:37:00 Test Item Value Reference Range Interpretation Comments Hgb (test code = Hgb) 10.7 12.0-16.0 [place] [address]-10-16 09:37:00 Test Item Value Reference Range Interpretation Comments Hct (test code = Hct) 32.8 36.0-48.0 [facility] CenterKiynpdcTAGVGCNMMA2982-70-57 09:37:00 Test Item Value Reference Range Interpretation Comments MCV (test code = MCV) 80.0 80.0-98.0 [facility] CenterKlkxhsiXGHXWNIGLT0989-10-17 09:37:00 Test Item Value Reference Range Interpretation Comments MCH (test code = MCH) 26.1 pg 27.0-31.0 [facility] CenterBlcdpkmGVRUMARKCB5734-02-63 09:37:00 Test Item Value Reference Range Interpretation Comments MCHC (test code = MCHC) 32.6 32.0-36.0 [facility] CenterYyvbplkZFIBDCZZNB1975-13-30 09:37:00 Test Item Value Reference Range Interpretation Comments RDW (test code = RDW) 16.4 11.5-14.5 [facility] CenterJpphgueUJJHRFUCNL2363-26-37 09:37:00 Test Item Value Reference Range Interpretation Comments Platelet (test code = Platelet) 362 133-450 [facility] CenterVnhnngcWFWJPGXEFB8780-58-46 09:37:00 Test Item Value Reference Range Interpretation Comments MPV (test code = MPV) 8.1 7.4-10.4 [facility] CenterUcpdsinOFCRATNAFD3831-73-40 09:37:00 Test Item Value Reference Range Interpretation Comments Segs (test code = Segs) 76.4 45.0-75.0 [facility] CenterUigitohZKUYIRUHSB3749-26-00 09:37:00 Test Item Value Reference Range Interpretation Comments Lymphocytes (test code = Lymphocytes) 13.3 20.0-40.0 [facility] CenterFidigndPSFEIYTCEX7571-99-34 09:37:00 Test Item Value Reference Range Interpretation Comments Monocytes (test code = Monocytes) 5.7 2.0-12.0 [place] [address]-10-16 09:37:00 Test Item Value Reference Range Interpretation Comments Eosinophils (test code = 3.7 See_Comment [A utomated message] The Eosinophils) system which ge nerated this result tra nsmitted reference range : <=4.0. The reference r quynh was not used to int erpret this result as normal/abnormal . [facility] CenterCladetzWUPGAOWQVA7921-00-44 09:37:00 Test Item Value Reference Range Interpretation Comments Basophils (test code = 0.9 See_Comment [Aut omated message] The Basophils) system which ge nerated this result tra nsmitted reference range : <=1.0. The reference r quynh was not used to int erpret this result as normal/abnormal . [place] [address]-10-16 09:37:00 Test Item Value Reference Range Interpretation Comments Neutrophils # (test code = Neutrophils 12.0 1.5-8.1 #) [place] 439852-10-16 09:37:00 Test Item Value Reference Range Interpretation Comments Lymphocytes # (test code = Lymphocytes 2.1 1.0-5.5 #) [place] [address]-10-16 09:37:00 Test Item Value Reference Range Interpretation Comments Monocytes # (test code 0.9 See_Comment [Aut omated message] The = Monocytes #) system which generated this result tra nsmitted reference range : <=0.8. The reference r quynh was not used to int erpret this result as normal/abnormal . [place] [address]-10-16 09:37:00 Test Item Value Reference Range Interpretation Comments Eosinophils # (test code 0.6 See_Comment [A utomated message] The = Eosinophils #) system whic h generated this result tra nsmitted reference range : <=0.5. The reference r quynh was not used to int erpret this result as normal/abnormal . [place] [address]-10-16 09:37:00 Test Item Value Reference Range Interpretation Comments Basophils # (test code 0.1 See_Comment [Aut omated message] The = Basophils #) system which generated this result tra nsmitted reference range : <=0.2. The reference r quynh was not used to int erpret this result as normal/abnormal . [facility] DallasImmunGene DBJMO6431-16-51 09:37:00 Test Item Value Reference Range Interpretation Comments Procalcitonin Lvl (test no gt See_Comment [Au tomated message] code = Procalcitonin Lvl) Th e system which generated this result transmitted ref erence range: <=0.10. The reference range was not used to interpr et this result as normal/abnormal . [place] 786342-10-16 09:37:00 Test Item Value Reference Range Interpretation Comments Glucose Lvl (test code = Glucose Lvl) 103 70-99 [facility] [place] [address]RXKSS2064-55-03 09:37:00 Test Item Value Reference Range Interpretation Comments BUN (test code = BUN) 13 7-22 [place] [address]-10-16 09:37:00 Test Item Value Reference Range Interpretation Comments Creatinine Lvl (test code = Creatinine 0.67 0.50-1.40 Lvl) [place] [address]-10-16 09:37:00 Test Item Value Reference Range Interpretation Comments Sodium Lvl (test code = Sodium Lvl) 138 135-145 [place] [address]-10-16 09:37:00 Test Item Value Reference Range Interpretation Comments Potassium Lvl (test code = Potassium 3.7 3.5-5.1 Lvl) [address]10-16 09:37:00 Test Item Value Reference Range Interpretation Comments Chloride Lvl (test code = Chloride Lvl) 98 95-109 [place] [address]-10-16 09:37:00 Test Item Value Reference Range Interpretation Comments CO2 (test code = CO2) 32 24-32 [place] [address]-10-16 09:37:00 Test Item Value Reference Range Interpretation Comments Calcium Lvl (test code = Calcium Lvl) 9.3 8.5-10.5 [place] [address]-10-16 09:37:00 Test Item Value Reference Range Interpretation Comments Total Protein (test code = Total 7.5 6.4-8.4 Protein) [address]10-16 09:37:00 Test Item Value Reference Range Interpretation Comments Albumin Lvl (test code = Albumin Lvl) 3.0 3.5-5.0 [place] [address]-10-16 09:37:00 Test Item Value Reference Range Interpretation Comments ALT (test code = ALT) 18 See_Comment [Auto mated message] The system which ge nerated this result transmit fabiano reference range : <=65. The reference range was not used to interpr et this result as aleks l/abnormal. [place] [address]-10-16 09:37:00 Test Item Value Reference Range Interpretation Comments AST (test code = AST) 6 See_Comment [Auto mated message] The system which ge nerated this result transmit fabiano reference range : <=37. The reference range was not used to interpr et this result as aleks l/abnormal. [facility]2022-10-16 09:37:00 Test Item Value Reference Range Interpretation Comments Alk Phos (test code = Alk Phos) 118 39-136 [place] 786342-10-16 09:37:00 Test Item Value Reference Range Interpretation Comments Bili Total (test code = Bili Total) 0.4 0.2-1.3 [place] 786342-10-16 09:37:00 Test Item Value Reference Range Interpretation Comments AGAP (test code = AGAP) 11.7 10.0-20.0 [place] [address]-10-16 09:37:00 Test Item Value Reference Range Interpretation Comments B/C Ratio (test code = B/C Ratio) 19 1 6-25 [place] 786342-10-16 09:37:00 Test Item Value Reference Range Interpretation Comments Globulin (test code = Globulin) 4.5 2.7-4.2 [place] 786342-10-16 09:37:00 Test Item Value Reference Range Interpretation Comments A/G Ratio (test code = A/G Ratio) 0.7 1 0.7-1.6 [place] [address]-10-16 09:37:00 Test Item Value Reference Range Interpretation Comments eGFR (test code = eGFR) 105 [facility]2022-10-16 09:37:00 Test Item Value Reference Range Interpretation Comments Phosphorus (test code = Phosphorus) 3.7 2.5-4.5 [place] 786342-10-16 09:37:00 Test Item Value Reference Range Interpretation Comments Magnesium Lvl (test code = Magnesium 2.1 1.8-2.4 Lvl) [place] 675862-10-16 09:37:00 Test Item Value Reference Range Interpretation Comments Procalcitonin Lvl (test no gt See_Comment [Au tomated message] code = Procalcitonin Lvl) e system which generated this result transmitted ref erence range: <=0.10. The reference range was not used to interpr et this result as normal/abnormal . [facility] CenterFhcjbxzQGUUHMFJFO1253-56-28 09:37:00 Test Item Value Reference Range Interpretation Comments WBC (test code = WBC) 15.7 3.7-10.4 [place] 439852-10-16 09:37:00 Test Item Value Reference Range Interpretation Comments RBC (test code = RBC) 4.10 4.20-5.40 [place] 439852-10-16 09:37:00 Test Item Value Reference Range Interpretation Comments Hgb (test code = Hgb) 10.7 12.0-16.0 [place] 439852-10-16 09:37:00 Test Item Value Reference Range Interpretation Comments Hct (test code = Hct) 32.8 36.0-48.0 [facility] CenterBaonoxeKYCRGGCURD7844-20-35 09:37:00 Test Item Value Reference Range Interpretation Comments MCV (test code = MCV) 80.0 80.0-98.0 [facility] CenterDnkgrunTHYWVJLKGV4118-40-73 09:37:00 Test Item Value Reference Range Interpretation Comments MCH (test code = MCH) 26.1 pg 27.0-31.0 [facility] CenterZsxhapvWLHBKXFAKL2104-49-11 09:37:00 Test Item Value Reference Range Interpretation Comments MCHC (test code = MCHC) 32.6 32.0-36.0 [facility] CenterLzwelhfDJZBXCPGQR6561-54-70 09:37:00 Test Item Value Reference Range Interpretation Comments RDW (test code = RDW) 16.4 11.5-14.5 [facility] CenterDjyrzvlQHLLYTEVZU6672-51-57 09:37:00 Test Item Value Reference Range Interpretation Comments Platelet (test code = Platelet) 362 133-450 [facility] CenterQcvvssbUHBPXOZZNP8080-47-29 09:37:00 Test Item Value Reference Range Interpretation Comments MPV (test code = MPV) 8.1 7.4-10.4 [facility] CenterJlmcrqiBQHNVZAOSO9823-45-61 09:37:00 Test Item Value Reference Range Interpretation Comments Segs (test code = Segs) 76.4 45.0-75.0 [place] [address]-10-16 09:37:00 Test Item Value Reference Range Interpretation Comments Lymphocytes (test code = Lymphocytes) 13.3 20.0-40.0 [place] [address]-10-16 09:37:00 Test Item Value Reference Range Interpretation Comments Monocytes (test code = Monocytes) 5.7 2.0-12.0 [place] 439852-10-16 09:37:00 Test Item Value Reference Range Interpretation Comments Eosinophils (test code = 3.7 See_Comment [A utomated message] The Eosinophils) system which ge nerated this result tra nsmitted reference range : <=4.0. The reference r quynh was not used to int erpret this result as normal/abnormal . [place] [address]-10-16 09:37:00 Test Item Value Reference Range Interpretation Comments Basophils (test code = 0.9 See_Comment [Aut omated message] The Basophils) system which ge nerated this result tra nsmitted reference range : <=1.0. The reference r quynh was not used to int erpret this result as normal/abnormal . [place] [address]-10-16 09:37:00 Test Item Value Reference Range Interpretation Comments Neutrophils # (test code = Neutrophils 12.0 1.5-8.1 #) [place] 439852-10-16 09:37:00 Test Item Value Reference Range Interpretation Comments Lymphocytes # (test code = Lymphocytes 2.1 1.0-5.5 #) [place] [address]-10-16 09:37:00 Test Item Value Reference Range Interpretation Comments Monocytes # (test code 0.9 See_Comment [Aut omated message] The = Monocytes #) system which generated this result tra nsmitted reference range : <=0.8. The reference r quynh was not used to int erpret this result as normal/abnormal . [place] 439852-10-16 09:37:00 Test Item Value Reference Range Interpretation Comments Eosinophils # (test code 0.6 See_Comment [A utomated message] The = Eosinophils #) system whic h generated this result tra nsmitted reference range : <=0.5. The reference r quynh was not used to int erpret this result as normal/abnormal . [place] 439852-10-16 09:37:00 Test Item Value Reference Range Interpretation Comments Basophils # (test code 0.1 See_Comment [Aut omated message] The = Basophils #) system which generated this result tra nsmitted reference range : <=0.2. The reference r quynh was not used to int erpret this result as normal/abnormal . [facility]2022-10-15 18:28:21 Test Item Value Reference Range Interpretation Comments LDH (test code = LDH) 154 98-192 [address]10-15 18:28:21 Test Item Value Reference Range Interpretation Comments LDH (test code = LDH) 154 98-192 [place] [address]-10-15 18:28:21 Test Item Value Reference Range Interpretation Comments LDH (test code = LDH) 154 98-192 [place] [address]-10-15 18:28:21 Test Item Value Reference Range Interpretation Comments LDH (test code = LDH) 154 98-192 [place] [address]-10-15 18:28:21 Test Item Value Reference Range Interpretation Comments LDH (test code = LDH) 154 98-192 [place] [address]-10-15 18:28:21 Test Item Value Reference Range Interpretation Comments LDH (test code = LDH) 154 98-192 [place] [address]-10-15 18:28:21 Test Item Value Reference Range Interpretation Comments LDH (test code = LDH) 154 98-192 [place] [address]-10-15 18:28:21 Test Item Value Reference Range Interpretation Comments LDH (test code = LDH) 154 98-192 [place] [address]-10-15 18:28:21 Test Item Value Reference Range Interpretation Comments LDH (test code = LDH) 154 98-192 [place] [address]-10-15 18:28:21 Test Item Value Reference Range Interpretation Comments LDH (test code = LDH) 154 98-192 [place] [address]-10-15 18:28:21 Test Item Value Reference Range Interpretation Comments LDH (test code = LDH) 154 98-192 [place] [address]-10-15 18:28:21 Test Item Value Reference Range Interpretation Comments LDH (test code = LDH) 154 98-192 [address]10-15 18:28:21 Test Item Value Reference Range Interpretation Comments LDH (test code = LDH) 154 98-192 [place] [address]-10-15 18:28:21 Test Item Value Reference Range Interpretation Comments LDH (test code = LDH) 154 98-192 [address]10-15 18:28:21 Test Item Value Reference Range Interpretation Comments LDH (test code = LDH) 154 98-[address]10-15 18:28:21 Test Item Value Reference Range Interpretation Comments LDH (test code = LDH) 154 98-192 [place] [address]-10-15 18:28:21 Test Item Value Reference Range Interpretation Comments LDH (test code = LDH) 154 98-192 [place] 786342-10-15 18:28:21 Test Item Value Reference Range Interpretation Comments LDH (test code = LDH) 154 98-192 [place] [address]-10-15 18:28:21 Test Item Value Reference Range Interpretation Comments LDH (test code = LDH) 154 98-192 [place] [address]-10-15 18:28:21 Test Item Value Reference Range Interpretation Comments LDH (test code = LDH) 154 98-192 [place] [address]-10-15 18:28:21 Test Item Value Reference Range Interpretation Comments LDH (test code = LDH) 154 98-192 [place] [address]-10-15 18:28:21 Test Item Value Reference Range Interpretation Comments LDH (test code = LDH) 154 98-192 [place] [address]-10-15 18:28:21 Test Item Value Reference Range Interpretation Comments LDH (test code = LDH) 154 98-192 [place] [address]-10-15 18:28:21 Test Item Value Reference Range Interpretation Comments LDH (test code = LDH) 154 98-192 [place] 786342-10-15 18:28:21 Test Item Value Reference Range Interpretation Comments LDH (test code = LDH) 154 98-192 [place] [address]-10-15 18:28:21 Test Item Value Reference Range Interpretation Comments LDH (test code = LDH) 154 98-192 [place] [address]-10-15 18:28:21 Test Item Value Reference Range Interpretation Comments LDH (test code = LDH) 154 98-192 [place] [address]-10-15 18:28:21 Test Item Value Reference Range Interpretation Comments LDH (test code = LDH) 154 98-192 [place] [address]-10-15 18:28:21 Test Item Value Reference Range Interpretation Comments LDH (test code = LDH) 154 98-192 [place] [address]-10-15 18:28:21 Test Item Value Reference Range Interpretation Comments LDH (test code = LDH) 154 98-192 [address]10-15 18:28:21 Test Item Value Reference Range Interpretation Comments LDH (test code = LDH) 154 98-192 [facility]2022-10-15 18:28:21 Test Item Value Reference Range Interpretation Comments LDH (test code = LDH) 154 98-192 [place] 786342-10-15 11:23:00 Test Item Value Reference Range Interpretation Comments Glucose Lvl (test code = Glucose Lvl) 96 70-99 [facility]2022-10-15 11:23:00 Test Item Value Reference Range Interpretation Comments BUN (test code = BUN) 13 7-22 [place] 786342-10-15 11:23:00 Test Item Value Reference Range Interpretation Comments Creatinine Lvl (test code = Creatinine 0.57 0.50-1.40 Lvl) [facility]2022-10-15 11:23:00 Test Item Value Reference Range Interpretation Comments Sodium Lvl (test code = Sodium Lvl) 137 135-145 [facility]2022-10-15 11:23:00 Test Item Value Reference Range Interpretation Comments Potassium Lvl (test code = Potassium 3.6 3.5-5.1 Lvl) [facility]2022-10-15 11:23:00 Test Item Value Reference Range Interpretation Comments Chloride Lvl (test code = Chloride Lvl) 100 95-109 [facility]2022-10-15 11:23:00 Test Item Value Reference Range Interpretation Comments CO2 (test code = CO2) 30 24-32 [facility]2022-10-15 11:23:00 Test Item Value Reference Range Interpretation Comments Calcium Lvl (test code = Calcium Lvl) 9.2 8.5-10.5 [facility]2022-10-15 11:23:00 Test Item Value Reference Range Interpretation Comments AGAP (test code = AGAP) 10.6 10.0-20.0 [place] 786342-10-15 11:23:00 Test Item Value Reference Range Interpretation Comments eGFR (test code = eGFR) 109 [place] 786342-10-15 11:23:00 Test Item Value Reference Range Interpretation Comments Magnesium Lvl (test code = Magnesium 2.1 1.8-2.4 Lvl) [place] 786342-10-15 11:23:00 Test Item Value Reference Range Interpretation Comments Phosphorus (test code = Phosphorus) 4.5 2.5-4.5 [facility] CenterHymalbwQMKFCMAWMT0734-89-32 11:23:00 Test Item Value Reference Range Interpretation Comments WBC (test code = WBC) 15.4 3.7-10.4 [facility] CenterKxbpmnyBMNPORAEUT5780-57-75 11:23:00 Test Item Value Reference Range Interpretation Comments RBC (test code = RBC) 3.93 4.20-5.40 [facility] CenterCdoljdmTYLRLXJPXJ3420-02-67 11:23:00 Test Item Value Reference Range Interpretation Comments Hgb (test code = Hgb) 10.3 12.0-16.0 [place] 439852-10-15 11:23:00 Test Item Value Reference Range Interpretation Comments Hct (test code = Hct) 31.8 36.0-48.0 [facility] CenterKrdvwxwUUPNTWSQPJ6020-45-75 11:23:00 Test Item Value Reference Range Interpretation Comments MCV (test code = MCV) 80.8 80.0-98.0 [facility] CenterGtzuyekRIYVKYZYEC0020-55-65 11:23:00 Test Item Value Reference Range Interpretation Comments MCH (test code = MCH) 26.1 pg 27.0-31.0 [facility] CenterXhkbaumNVOLIDGPMH2158-47-65 11:23:00 Test Item Value Reference Range Interpretation Comments MCHC (test code = MCHC) 32.3 32.0-36.0 [facility] CenterQvhkiutDZTZFNOPIT5153-87-57 11:23:00 Test Item Value Reference Range Interpretation Comments RDW (test code = RDW) 16.4 11.5-14.5 [facility] CenterLquunwyAZQMFHDHMQ5910-57-09 11:23:00 Test Item Value Reference Range Interpretation Comments Platelet (test code = Platelet) 342 133-450 [facility] CenterCbmeboeKFONODEWJX9452-36-16 11:23:00 Test Item Value Reference Range Interpretation Comments MPV (test code = MPV) 8.1 7.4-10.4 [facility] CenterMevkdziYBMYVRUIEY2517-02-77 11:23:00 Test Item Value Reference Range Interpretation Comments Segs (test code = Segs) 82.0 45.0-75.0 [facility] CenterVkwxrguRMAQXGRVZR0476-42-10 11:23:00 Test Item Value Reference Range Interpretation Comments Lymphocytes (test code = Lymphocytes) 8.9 20.0-40.0 [place] 439852-10-15 11:23:00 Test Item Value Reference Range Interpretation Comments Monocytes (test code = Monocytes) 6.0 2.0-12.0 [place] 439852-10-15 11:23:00 Test Item Value Reference Range Interpretation Comments Eosinophils (test code = 2.8 See_Comment [A utomated message] The Eosinophils) system which ge nerated this result tra nsmitted reference range : <=4.0. The reference r quynh was not used to int erpret this result as normal/abnormal . [facility] CenterPpeadtrOZIDJPKDLD9434-26-96 11:23:00 Test Item Value Reference Range Interpretation Comments Basophils (test code = 0.3 See_Comment [Aut omated message] The Basophils) system which ge nerated this result tra nsmitted reference range : <=1.0. The reference r quynh was not used to int erpret this result as normal/abnormal . [facility] CenterKbglrkjAOLWPRLMYY0318-66-23 11:23:00 Test Item Value Reference Range Interpretation Comments Neutrophils # (test code = Neutrophils 12.7 1.5-8.1 #) [facility] CenterUbtmsipFVQYRVKXWV2692-97-82 11:23:00 Test Item Value Reference Range Interpretation Comments Lymphocytes # (test code = Lymphocytes 1.4 1.0-5.5 #) [place] 439852-10-15 11:23:00 Test Item Value Reference Range Interpretation Comments Monocytes # (test code 0.9 See_Comment [Aut omated message] The = Monocytes #) system which generated this result tra nsmitted reference range : <=0.8. The reference r quynh was not used to int erpret this result as normal/abnormal . [facility] CenterTnhodqlUYHEFZGSWB1253-25-10 11:23:00 Test Item Value Reference Range Interpretation Comments Eosinophils # (test code 0.4 See_Comment [A utomated message] The = Eosinophils #) system whic h generated this result tra nsmitted reference range : <=0.5. The reference r quynh was not used to int erpret this result as normal/abnormal . [facility] CenterSlhynpxMTJJGQYBHS5602-43-84 11:23:00 Test Item Value Reference Range Interpretation Comments Platelet (test code = Platelet) 342 133-450 [facility] CenterYuwwjfhJEOJMOYTSS1118-32-49 11:23:00 Test Item Value Reference Range Interpretation Comments MPV (test code = MPV) 8.1 7.4-10.4 [facility] CenterWtexfgcSNZQATDMUH5030-32-37 11:23:00 Test Item Value Reference Range Interpretation Comments Segs (test code = Segs) 82.0 45.0-75.0 [facility] CenterOurujkdNVWXQLNXHC2498-02-89 11:23:00 Test Item Value Reference Range Interpretation Comments Lymphocytes (test code = Lymphocytes) 8.9 20.0-40.0 [facility] CenterEnntcvqZADKXUXDXA8284-64-08 11:23:00 Test Item Value Reference Range Interpretation Comments Monocytes (test code = Monocytes) 6.0 2.0-12.0 [facility] CenterKqdvrshDPLSNQVYFI6636-74-79 11:23:00 Test Item Value Reference Range Interpretation Comments Eosinophils (test code = 2.8 See_Comment [A utomated message] The Eosinophils) system which ge nerated this result tra nsmitted reference range : <=4.0. The reference r quynh was not used to int erpret this result as normal/abnormal . [facility] CenterMelobpkKHTJRXDDEM3169-79-61 11:23:00 Test Item Value Reference Range Interpretation Comments Basophils (test code = 0.3 See_Comment [Aut omated message] The Basophils) system which ge nerated this result tra nsmitted reference range : <=1.0. The reference r quynh was not used to int erpret this result as normal/abnormal . [facility] CenterEkhmuaeJDRXOZLLJH3263-26-87 11:23:00 Test Item Value Reference Range Interpretation Comments Neutrophils # (test code = Neutrophils 12.7 1.5-8.1 #) [facility] CenterCxraohlKWHEPNQYZP4072-67-79 11:23:00 Test Item Value Reference Range Interpretation Comments Lymphocytes # (test code = Lymphocytes 1.4 1.0-5.5 #) [facility] CenterFlqvfilYOIBHVVLGO0242-50-48 11:23:00 Test Item Value Reference Range Interpretation Comments Monocytes # (test code 0.9 See_Comment [Aut omated message] The = Monocytes #) system which generated this result tra nsmitted reference range : <=0.8. The reference r quynh was not used to int erpret this result as normal/abnormal . [place] 439852-10-15 11:23:00 Test Item Value Reference Range Interpretation Comments Eosinophils # (test code 0.4 See_Comment [A utomated message] The = Eosinophils #) system whic h generated this result tra nsmitted reference range : <=0.5. The reference r quynh was not used to int erpret this result as normal/abnormal . [place] 786342-10-15 11:23:00 Test Item Value Reference Range Interpretation Comments Glucose Lvl (test code = Glucose Lvl) 96 70-99 [place] [address]-10-15 11:23:00 Test Item Value Reference Range Interpretation Comments BUN (test code = BUN) 13 7-22 [place] 786342-10-15 11:23:00 Test Item Value Reference Range Interpretation Comments Creatinine Lvl (test code = Creatinine 0.57 0.50-1.40 Lvl) [place] 786342-10-15 11:23:00 Test Item Value Reference Range Interpretation Comments Sodium Lvl (test code = Sodium Lvl) 137 135-145 [place] 786342-10-15 11:23:00 Test Item Value Reference Range Interpretation Comments Potassium Lvl (test code = Potassium 3.6 3.5-5.1 Lvl) [place] [address]-10-15 11:23:00 Test Item Value Reference Range Interpretation Comments Chloride Lvl (test code = Chloride Lvl) 100 95-109 [place] 786342-10-15 11:23:00 Test Item Value Reference Range Interpretation Comments CO2 (test code = CO2) 30 24-32 [place] 786342-10-15 11:23:00 Test Item Value Reference Range Interpretation Comments Calcium Lvl (test code = Calcium Lvl) 9.2 8.5-10.5 [place] 786342-10-15 11:23:00 Test Item Value Reference Range Interpretation Comments AGAP (test code = AGAP) 10.6 10.0-20.0 [place] 786342-10-15 11:23:00 Test Item Value Reference Range Interpretation Comments eGFR (test code = eGFR) 109 [place] 786342-10-15 11:23:00 Test Item Value Reference Range Interpretation Comments Magnesium Lvl (test code = Magnesium 2.1 1.8-2.4 Lvl) [facility]2022-10-15 11:23:00 Test Item Value Reference Range Interpretation Comments Phosphorus (test code = Phosphorus) 4.5 2.5-4.5 [facility] Dall[id number] 11:23:00 Test Item Value Reference Range Interpretation Comments WBC (test code = WBC) 15.4 3.7-10.4 [facility] CenterGdyywgpOXSWULBAEX9253-19-04 11:23:00 Test Item Value Reference Range Interpretation Comments RBC (test code = RBC) 3.93 4.20-5.40 [facility] CenterEtczqtnIUMFCOURTK6774-48-96 11:23:00 Test Item Value Reference Range Interpretation Comments Hgb (test code = Hgb) 10.3 12.0-16.0 [facility] CenterJmwtfpmEWRBYLUUCH2729-55-91 11:23:00 Test Item Value Reference Range Interpretation Comments Hct (test code = Hct) 31.8 36.0-48.0 [facility] CenterLvluivuPKRVNVZOAX1950-94-62 11:23:00 Test Item Value Reference Range Interpretation Comments MCV (test code = MCV) 80.8 80.0-98.0 [facility] CenterHhopympPWZWUQLESE0804-12-57 11:23:00 Test Item Value Reference Range Interpretation Comments MCH (test code = MCH) 26.1 pg 27.0-31.0 [facility] CenterBppnuihZAJAKMJWWC3680-02-82 11:23:00 Test Item Value Reference Range Interpretation Comments MCHC (test code = MCHC) 32.3 32.0-36.0 [facility] CenterQmlripxZYMVYEMRGX1684-43-70 11:23:00 Test Item Value Reference Range Interpretation Comments RDW (test code = RDW) 16.4 11.5-14.5 [facility] CenterMrvenhzGHLTVWNTOH7413-88-87 11:23:00 Test Item Value Reference Range Interpretation Comments Platelet (test code = Platelet) 342 133-450 [facility] CenterRpazomtMBINZUFDSQ0061-56-31 11:23:00 Test Item Value Reference Range Interpretation Comments MPV (test code = MPV) 8.1 7.4-10.4 [facility] CenterQqyjytkDLGJBWJZDA4857-25-10 11:23:00 Test Item Value Reference Range Interpretation Comments Segs (test code = Segs) 82.0 45.0-75.0 [place] [address]-10-15 11:23:00 Test Item Value Reference Range Interpretation Comments Lymphocytes (test code = Lymphocytes) 8.9 20.0-40.0 [place] [address]-10-15 11:23:00 Test Item Value Reference Range Interpretation Comments Monocytes (test code = Monocytes) 6.0 2.0-12.0 [place] [address]-10-15 11:23:00 Test Item Value Reference Range Interpretation Comments Eosinophils (test code = 2.8 See_Comment [A utomated message] The Eosinophils) system which ge nerated this result tra nsmitted reference range : <=4.0. The reference r quynh was not used to int erpret this result as normal/abnormal . [place] [address]-10-15 11:23:00 Test Item Value Reference Range Interpretation Comments Basophils (test code = 0.3 See_Comment [Aut omated message] The Basophils) system which ge nerated this result tra nsmitted reference range : <=1.0. The reference r quynh was not used to int erpret this result as normal/abnormal . [place] [address]-10-15 11:23:00 Test Item Value Reference Range Interpretation Comments Neutrophils # (test code = Neutrophils 12.7 1.5-8.1 #) [place] 439852-10-15 11:23:00 Test Item Value Reference Range Interpretation Comments Lymphocytes # (test code = Lymphocytes 1.4 1.0-5.5 #) [place] 439852-10-15 11:23:00 Test Item Value Reference Range Interpretation Comments Monocytes # (test code 0.9 See_Comment [Aut omated message] The = Monocytes #) system which generated this result tra nsmitted reference range : <=0.8. The reference r quynh was not used to int erpret this result as normal/abnormal . [place] [address]-10-15 11:23:00 Test Item Value Reference Range Interpretation Comments Eosinophils # (test code 0.4 See_Comment [A utomated message] The = Eosinophils #) system whic h generated this result tra nsmitted reference range : <=0.5. The reference r quynh was not used to int erpret this result as normal/abnormal . [facility]2022-10-15 11:23:00 Test Item Value Reference Range Interpretation Comments Glucose Lvl (test code = Glucose Lvl) 96 70-99 [place] 786342-10-15 11:23:00 Test Item Value Reference Range Interpretation Comments BUN (test code = BUN) 13 01-18 [place] 786342-10-15 11:23:00 Test Item Value Reference Range Interpretation Comments Creatinine Lvl (test code = Creatinine 0.57 0.50-1.40 Lvl) [facility]2022-10-15 11:23:00 Test Item Value Reference Range Interpretation Comments Sodium Lvl (test code = Sodium Lvl) 137 135-145 [facility]2022-10-15 11:23:00 Test Item Value Reference Range Interpretation Comments Potassium Lvl (test code = Potassium 3.6 3.5-5.1 Lvl) [facility] [id number] 11:23:00 Test Item Value Reference Range Interpretation Comments Chloride Lvl (test code = Chloride Lvl) 100 95-109 [facility]Immun[facility] [id number] 11:23:00 Test Item Value Reference Range Interpretation Comments CO2 (test code = CO2) 30 24-32 [facility] [id number] 11:23:00 Test Item Value Reference Range Interpretation Comments Calcium Lvl (test code = Calcium Lvl) 9.2 8.5-10.5 [facility] [id number] 11:23:00 Test Item Value Reference Range Interpretation Comments AGAP (test code = AGAP) 10.6 10.0-20.0 [facility] [id number] 11:23:00 Test Item Value Reference Range Interpretation Comments Glucose Lvl (test code = Glucose Lvl) 96 70-99 [facility] [id number] 11:23:00 Test Item Value Reference Range Interpretation Comments BUN (test code = BUN) 13 01-18 [facility] [id number] 11:23:00 Test Item Value Reference Range Interpretation Comments Creatinine Lvl (test code = Creatinine 0.57 0.50-1.40 Lvl) [facility] [id number] 11:23:00 Test Item Value Reference Range Interpretation Comments Sodium Lvl (test code = Sodium Lvl) 137 135-145 [place] 786342-10-15 11:23:00 Test Item Value Reference Range Interpretation Comments Potassium Lvl (test code = Potassium 3.6 3.5-5.1 Lvl) [place] [address]-10-15 11:23:00 Test Item Value Reference Range Interpretation Comments Chloride Lvl (test code = Chloride Lvl) 100 95-109 [place] [address]-10-15 11:23:00 Test Item Value Reference Range Interpretation Comments CO2 (test code = CO2) 30 24-32 [place] 786342-10-15 11:23:00 Test Item Value Reference Range Interpretation Comments Calcium Lvl (test code = Calcium Lvl) 9.2 8.5-10.5 [place] [address]-10-15 11:23:00 Test Item Value Reference Range Interpretation Comments eGFR (test code = eGFR) 109 [place] [address]-10-15 11:23:00 Test Item Value Reference Range Interpretation Comments AGAP (test code = AGAP) 10.6 10.0-20.0 [place] 786342-10-15 11:23:00 Test Item Value Reference Range Interpretation Comments eGFR (test code = eGFR) 109 [place] [address]-10-15 11:23:00 Test Item Value Reference Range Interpretation Comments Magnesium Lvl (test code = Magnesium 2.1 1.8-2.4 Lvl) [place] 786342-10-15 11:23:00 Test Item Value Reference Range Interpretation Comments Phosphorus (test code = Phosphorus) 4.5 2.5-4.5 [place] [address]-10-15 11:23:00 Test Item Value Reference Range Interpretation Comments WBC (test code = WBC) 15.4 3.7-10.4 [place] [address]-10-15 11:23:00 Test Item Value Reference Range Interpretation Comments RBC (test code = RBC) 3.93 4.20-5.40 [place] [address]-10-15 11:23:00 Test Item Value Reference Range Interpretation Comments Hgb (test code = Hgb) 10.3 12.0-16.0 [place] [address]-10-15 11:23:00 Test Item Value Reference Range Interpretation Comments Hct (test code = Hct) 31.8 36.0-48.0 [facility] DallasFotdyuiOSJZSZUDRE7354-58-73 11:23:00 Test Item Value Reference Range Interpretation Comments MCV (test code = MCV) 80.8 80.0-98.0 [facility] DallasCxlvwuyRCBZMDWZCI8118-62-17 11:23:00 Test Item Value Reference Range Interpretation Comments MCH (test code = MCH) 26.1 pg 27.0-31.0 [facility] [id number] 11:23:00 Test Item Value Reference Range Interpretation Comments Magnesium Lvl (test code = Magnesium 2.1 1.8-2.4 Lvl) [facility] CenterCshwotbBGDKGFOSBV8445-53-92 11:23:00 Test Item Value Reference Range Interpretation Comments MCHC (test code = MCHC) 32.3 32.0-36.0 [facility]QRKRLRSJ4607-05-35 11:23:00 Test Item Value Reference Range Interpretation Comments RDW (test code = RDW) 16.4 11.5-14.5 [facility] MichiganIcoohujXPFTDJSTUK9229-43-28 11:23:00 Test Item Value Reference Range Interpretation Comments Platelet (test code = Platelet) 342 133-450 [facility] DallasXwxezdyAKDPTPABOD2804-93-35 11:23:00 Test Item Value Reference Range Interpretation Comments MPV (test code = MPV) 8.1 7.4-10.4 [facility] DallasGntjcoqMOOXDRGUJX7625-55-38 11:23:00 Test Item Value Reference Range Interpretation Comments Segs (test code = Segs) 82.0 45.0-75.0 [facility] MichiganTyctzioXUJRBWQAIV9916-66-87 11:23:00 Test Item Value Reference Range Interpretation Comments Lymphocytes (test code = Lymphocytes) 8.9 20.0-40.0 [facility] MichiganNjadehyTGMQMTXGOX3196-85-33 11:23:00 Test Item Value Reference Range Interpretation Comments Monocytes (test code = Monocytes) 6.0 2.0-12.0 [facility] MichiganHyvczmiKHVXHRGFJW1736-11-22 11:23:00 Test Item Value Reference Range Interpretation Comments Eosinophils (test code = 2.8 See_Comment [A utomated message] The Eosinophils) system which ge nerated this result tra nsmitted reference range : <=4.0. The reference r quynh was not used to int erpret this result as normal/abnormal . [place] [address]-10-15 11:23:00 Test Item Value Reference Range Interpretation Comments Basophils (test code = 0.3 See_Comment [Aut omated message] The Basophils) system which ge nerated this result tra nsmitted reference range : <=1.0. The reference r quynh was not used to int erpret this result as normal/abnormal . [place] [address]-10-15 11:23:00 Test Item Value Reference Range Interpretation Comments Neutrophils # (test code = Neutrophils 12.7 1.5-8.1 #) [facility]2022-10-15 11:23:00 Test Item Value Reference Range Interpretation Comments Phosphorus (test code = Phosphorus) 4.5 2.5-4.5 [place] 439852-10-15 11:23:00 Test Item Value Reference Range Interpretation Comments Lymphocytes # (test code = Lymphocytes 1.4 1.0-5.5 #) [facility] CenterWvkilbjCZWEWHOZCY2987-22-41 11:23:00 Test Item Value Reference Range Interpretation Comments Monocytes # (test code 0.9 See_Comment [Aut omated message] The = Monocytes #) system which generated this result tra nsmitted reference range : <=0.8. The reference r quynh was not used to int erpret this result as normal/abnormal . [place] 439852-10-15 11:23:00 Test Item Value Reference Range Interpretation Comments Eosinophils # (test code 0.4 See_Comment [A utomated message] The = Eosinophils #) system whic h generated this result tra nsmitted reference range : <=0.5. The reference r quynh was not used to int erpret this result as normal/abnormal . [facility] CenterVujroriZWBDVLEQRX3183-29-60 11:23:00 Test Item Value Reference Range Interpretation Comments WBC (test code = WBC) 15.4 3.7-10.4 [place] [address]-10-15 11:23:00 Test Item Value Reference Range Interpretation Comments RBC (test code = RBC) 3.93 4.20-5.40 [place] [address]-10-15 11:23:00 Test Item Value Reference Range Interpretation Comments Hgb (test code = Hgb) 10.3 12.0-16.0 [place] [address]-10-15 11:23:00 Test Item Value Reference Range Interpretation Comments Hct (test code = Hct) 31.8 36.0-48.0 [place] 439852-10-15 11:23:00 Test Item Value Reference Range Interpretation Comments MCV (test code = MCV) 80.8 80.0-98.0 [place] [address]-10-15 11:23:00 Test Item Value Reference Range Interpretation Comments MCH (test code = MCH) 26.1 pg 27.0-31.0 [place] [address]-10-15 11:23:00 Test Item Value Reference Range Interpretation Comments MCHC (test code = MCHC) 32.3 32.0-36.0 [facility] CenterZqtsatrFDWOXWBUDI9601-73-23 11:23:00 Test Item Value Reference Range Interpretation Comments RDW (test code = RDW) 16.4 11.5-14.5 [facility] CenterFpajscmPWVMFDZRGT1525-31-75 11:23:00 Test Item Value Reference Range Interpretation Comments Platelet (test code = Platelet) 342 133-450 [facility] CenterCyexrimGBBWWWUMWD9699-21-02 11:23:00 Test Item Value Reference Range Interpretation Comments MPV (test code = MPV) 8.1 7.4-10.4 [facility] [id number] 11:23:00 Test Item Value Reference Range Interpretation Comments Segs (test code = Segs) 82.0 45.0-75.0 [facility] CenterUxrpdzdZGLYKQMXMU3774-25-09 11:23:00 Test Item Value Reference Range Interpretation Comments Lymphocytes (test code = Lymphocytes) 8.9 20.0-40.0 [place] [address]-10-15 11:23:00 Test Item Value Reference Range Interpretation Comments Monocytes (test code = Monocytes) 6.0 2.0-12.0 [place] [address]-10-15 11:23:00 Test Item Value Reference Range Interpretation Comments Eosinophils (test code = 2.8 See_Comment [A utomated message] The Eosinophils) system which ge nerated this result tra nsmitted reference range : <=4.0. The reference r quynh was not used to int erpret this result as normal/abnormal . [facility] CenterJpytzvzIPOOOPEKDN7628-40-21 11:23:00 Test Item Value Reference Range Interpretation Comments Basophils (test code = 0.3 See_Comment [Aut omated message] The Basophils) system which ge nerated this result tra nsmitted reference range : <=1.0. The reference r quynh was not used to int erpret this result as normal/abnormal . [place] [address]-10-15 11:23:00 Test Item Value Reference Range Interpretation Comments Neutrophils # (test code = Neutrophils 12.7 1.5-8.1 #) [place] 439852-10-15 11:23:00 Test Item Value Reference Range Interpretation Comments Lymphocytes # (test code = Lymphocytes 1.4 1.0-5.5 #) [place] [address]-10-15 11:23:00 Test Item Value Reference Range Interpretation Comments Monocytes # (test code 0.9 See_Comment [Aut omated message] The = Monocytes #) system which generated this result tra nsmitted reference range : <=0.8. The reference r quynh was not used to int erpret this result as normal/abnormal . [place] [address]-10-15 11:23:00 Test Item Value Reference Range Interpretation Comments Eosinophils # (test code 0.4 See_Comment [A utomated message] The = Eosinophils #) system whic h generated this result tra nsmitted reference range : <=0.5. The reference r quynh was not used to int erpret this result as normal/abnormal . [place] 786342-10-15 11:23:00 Test Item Value Reference Range Interpretation Comments Glucose Lvl (test code = Glucose Lvl) 96 70-99 [place] 786342-10-15 11:23:00 Test Item Value Reference Range Interpretation Comments BUN (test code = BUN) 13 7-22 [place] [address]-10-15 11:23:00 Test Item Value Reference Range Interpretation Comments Creatinine Lvl (test code = Creatinine 0.57 0.50-1.40 Lvl) [place] 786342-10-15 11:23:00 Test Item Value Reference Range Interpretation Comments Sodium Lvl (test code = Sodium Lvl) 137 135-145 [place] 786342-10-15 11:23:00 Test Item Value Reference Range Interpretation Comments Potassium Lvl (test code = Potassium 3.6 3.5-5.1 Lvl) [place] 786342-10-15 11:23:00 Test Item Value Reference Range Interpretation Comments Chloride Lvl (test code = Chloride Lvl) 100 95-109 [place] [address]-10-15 11:23:00 Test Item Value Reference Range Interpretation Comments CO2 (test code = CO2) 30 24-32 [place] [address]-10-15 11:23:00 Test Item Value Reference Range Interpretation Comments Calcium Lvl (test code = Calcium Lvl) 9.2 8.5-10.5 [place] [address]-10-15 11:23:00 Test Item Value Reference Range Interpretation Comments AGAP (test code = AGAP) 10.6 10.0-20.0 [place] [address]-10-15 11:23:00 Test Item Value Reference Range Interpretation Comments eGFR (test code = eGFR) 109 [place] 786342-10-15 11:23:00 Test Item Value Reference Range Interpretation Comments Magnesium Lvl (test code = Magnesium 2.1 1.8-2.4 Lvl) [place] [address]-10-15 11:23:00 Test Item Value Reference Range Interpretation Comments Phosphorus (test code = Phosphorus) 4.5 2.5-4.5 [place] [address]-10-15 11:23:00 Test Item Value Reference Range Interpretation Comments WBC (test code = WBC) 15.4 3.7-10.4 [place] [address]-10-15 11:23:00 Test Item Value Reference Range Interpretation Comments RBC (test code = RBC) 3.93 4.20-5.40 [place] [address]-10-15 11:23:00 Test Item Value Reference Range Interpretation Comments Hgb (test code = Hgb) 10.3 12.0-16.0 [place] [address]-10-15 11:23:00 Test Item Value Reference Range Interpretation Comments Hct (test code = Hct) 31.8 36.0-48.0 [place] [address]-10-15 11:23:00 Test Item Value Reference Range Interpretation Comments MCV (test code = MCV) 80.8 80.0-98.0 [place] [address]-10-15 11:23:00 Test Item Value Reference Range Interpretation Comments MCH (test code = MCH) 26.1 pg 27.0-31.0 [place] 439852-10-15 11:23:00 Test Item Value Reference Range Interpretation Comments MCHC (test code = MCHC) 32.3 32.0-36.0 [place] 439852-10-15 11:23:00 Test Item Value Reference Range Interpretation Comments RDW (test code = RDW) 16.4 11.5-14.5 [place] 439852-10-15 11:23:00 Test Item Value Reference Range Interpretation Comments Platelet (test code = Platelet) 342 133-450 [place] 439852-10-15 11:23:00 Test Item Value Reference Range Interpretation Comments MPV (test code = MPV) 8.1 7.4-10.4 [place] 439852-10-15 11:23:00 Test Item Value Reference Range Interpretation Comments Segs (test code = Segs) 82.0 45.0-75.0 [place] 439852-10-15 11:23:00 Test Item Value Reference Range Interpretation Comments Lymphocytes (test code = Lymphocytes) 8.9 20.0-40.0 [place] [address]-10-15 11:23:00 Test Item Value Reference Range Interpretation Comments Monocytes (test code = Monocytes) 6.0 2.0-12.0 [place] 439852-10-15 11:23:00 Test Item Value Reference Range Interpretation Comments Eosinophils (test code = 2.8 See_Comment [A utomated message] The Eosinophils) system which ge nerated this result tra nsmitted reference range : <=4.0. The reference r quynh was not used to int erpret this result as normal/abnormal . [place] 439852-10-15 11:23:00 Test Item Value Reference Range Interpretation Comments Basophils (test code = 0.3 See_Comment [Aut omated message] The Basophils) system which ge nerated this result tra nsmitted reference range : <=1.0. The reference r quynh was not used to int erpret this result as normal/abnormal . [place] 439852-10-15 11:23:00 Test Item Value Reference Range Interpretation Comments Neutrophils # (test code = Neutrophils 12.7 1.5-8.1 #) [place] [address]-10-15 11:23:00 Test Item Value Reference Range Interpretation Comments Lymphocytes # (test code = Lymphocytes 1.4 1.0-5.5 #) [place] [address]-10-15 11:23:00 Test Item Value Reference Range Interpretation Comments Monocytes # (test code 0.9 See_Comment [Aut omated message] The = Monocytes #) system which generated this result tra nsmitted reference range : <=0.8. The reference r quynh was not used to int erpret this result as normal/abnormal . [place] [address]-10-15 11:23:00 Test Item Value Reference Range Interpretation Comments Eosinophils # (test code 0.4 See_Comment [A utomated message] The = Eosinophils #) system whic h generated this result tra nsmitted reference range : <=0.5. The reference r quynh was not used to int erpret this result as normal/abnormal . [place] 786342-10-15 11:23:00 Test Item Value Reference Range Interpretation Comments Glucose Lvl (test code = Glucose Lvl) 96 70-99 [place] [address]-10-15 11:23:00 Test Item Value Reference Range Interpretation Comments BUN (test code = BUN) 13 7-22 [place] [address]-10-15 11:23:00 Test Item Value Reference Range Interpretation Comments Creatinine Lvl (test code = Creatinine 0.57 0.50-1.40 Lvl) [place] [address]-10-15 11:23:00 Test Item Value Reference Range Interpretation Comments Sodium Lvl (test code = Sodium Lvl) 137 135-145 [place] [address]-10-15 11:23:00 Test Item Value Reference Range Interpretation Comments Potassium Lvl (test code = Potassium 3.6 3.5-5.1 Lvl) [place] [address]-10-15 11:23:00 Test Item Value Reference Range Interpretation Comments Chloride Lvl (test code = Chloride Lvl) 100 95-109 [place] 786342-10-15 11:23:00 Test Item Value Reference Range Interpretation Comments CO2 (test code = CO2) 30 24-32 [place] 786342-10-15 11:23:00 Test Item Value Reference Range Interpretation Comments Calcium Lvl (test code = Calcium Lvl) 9.2 8.5-10.5 [place] 786342-10-15 11:23:00 Test Item Value Reference Range Interpretation Comments AGAP (test code = AGAP) 10.6 10.0-20.0 [place] [address]-10-15 11:23:00 Test Item Value Reference Range Interpretation Comments eGFR (test code = eGFR) 109 [place] 786342-10-15 11:23:00 Test Item Value Reference Range Interpretation Comments Magnesium Lvl (test code = Magnesium 2.1 1.8-2.4 Lvl) [place] 786342-10-15 11:23:00 Test Item Value Reference Range Interpretation Comments Phosphorus (test code = Phosphorus) 4.5 2.5-4.5 [place] 439852-10-15 11:23:00 Test Item Value Reference Range Interpretation Comments WBC (test code = WBC) 15.4 3.7-10.4 [place] 439852-10-15 11:23:00 Test Item Value Reference Range Interpretation Comments RBC (test code = RBC) 3.93 4.20-5.40 [place] [address]-10-15 11:23:00 Test Item Value Reference Range Interpretation Comments Hgb (test code = Hgb) 10.3 12.0-16.0 [place] [address]-10-15 11:23:00 Test Item Value Reference Range Interpretation Comments Hct (test code = Hct) 31.8 36.0-48.0 [place] [address]-10-15 11:23:00 Test Item Value Reference Range Interpretation Comments MCV (test code = MCV) 80.8 80.0-98.0 [place] [address]-10-15 11:23:00 Test Item Value Reference Range Interpretation Comments MCH (test code = MCH) 26.1 pg 27.0-31.0 [place] [address]-10-15 11:23:00 Test Item Value Reference Range Interpretation Comments MCHC (test code = MCHC) 32.3 32.0-36.0 [place] [address]-10-15 11:23:00 Test Item Value Reference Range Interpretation Comments RDW (test code = RDW) 16.4 11.5-14.5 [place] 439852-10-15 11:23:00 Test Item Value Reference Range Interpretation Comments Platelet (test code = Platelet) 342 133-450 [place] 439852-10-15 11:23:00 Test Item Value Reference Range Interpretation Comments MPV (test code = MPV) 8.1 7.4-10.4 [place] 439852-10-15 11:23:00 Test Item Value Reference Range Interpretation Comments Segs (test code = Segs) 82.0 45.0-75.0 [place] [address]-10-15 11:23:00 Test Item Value Reference Range Interpretation Comments Lymphocytes (test code = Lymphocytes) 8.9 20.0-40.0 [place] [address]-10-15 11:23:00 Test Item Value Reference Range Interpretation Comments Monocytes (test code = Monocytes) 6.0 2.0-12.0 [place] 439852-10-15 11:23:00 Test Item Value Reference Range Interpretation Comments Eosinophils (test code = 2.8 See_Comment [A utomated message] The Eosinophils) system which ge nerated this result tra nsmitted reference range : <=4.0. The reference r quynh was not used to int erpret this result as normal/abnormal . [place] [address]-10-15 11:23:00 Test Item Value Reference Range Interpretation Comments Basophils (test code = 0.3 See_Comment [Aut omated message] The Basophils) system which ge nerated this result tra nsmitted reference range : <=1.0. The reference r quynh was not used to int erpret this result as normal/abnormal . [place] [address]-10-15 11:23:00 Test Item Value Reference Range Interpretation Comments Neutrophils # (test code = Neutrophils 12.7 1.5-8.1 #) [place] [address]-10-15 11:23:00 Test Item Value Reference Range Interpretation Comments Lymphocytes # (test code = Lymphocytes 1.4 1.0-5.5 #) [place] [address]-10-15 11:23:00 Test Item Value Reference Range Interpretation Comments Monocytes # (test code 0.9 See_Comment [Aut omated message] The = Monocytes #) system which generated this result tra nsmitted reference range : <=0.8. The reference r qyunh was not used to int erpret this result as normal/abnormal . [facility]GxzbfavAXXSKDBOIP9941-45-62 11:23:00 Test Item Value Reference Range Interpretation Comments Eosinophils # (test code 0.4 See_Comment [A utomated message] The = Eosinophils #) system whic h generated this result tra nsmitted reference range : <=0.5. The reference r quynh was not used to int erpret this result as normal/abnormal . [place] 786342-10-15 11:23:00 Test Item Value Reference Range Interpretation Comments Glucose Lvl (test code = Glucose Lvl) 96 70-99 [place] [address]-10-15 11:23:00 Test Item Value Reference Range Interpretation Comments BUN (test code = BUN) 13 7-22 [place] 786342-10-15 11:23:00 Test Item Value Reference Range Interpretation Comments Creatinine Lvl (test code = Creatinine 0.57 0.50-1.40 Lvl) [place] [address]-10-15 11:23:00 Test Item Value Reference Range Interpretation Comments Sodium Lvl (test code = Sodium Lvl) 137 135-145 [place] 786342-10-15 11:23:00 Test Item Value Reference Range Interpretation Comments Potassium Lvl (test code = Potassium 3.6 3.5-5.1 Lvl) [place] [address]-10-15 11:23:00 Test Item Value Reference Range Interpretation Comments Chloride Lvl (test code = Chloride Lvl) 100 95-109 [place] 786342-10-15 11:23:00 Test Item Value Reference Range Interpretation Comments CO2 (test code = CO2) 30 24-32 [place] 786342-10-15 11:23:00 Test Item Value Reference Range Interpretation Comments Calcium Lvl (test code = Calcium Lvl) 9.2 8.5-10.5 [place] [address]-10-15 11:23:00 Test Item Value Reference Range Interpretation Comments AGAP (test code = AGAP) 10.6 10.0-20.0 [place] 786342-10-15 11:23:00 Test Item Value Reference Range Interpretation Comments eGFR (test code = eGFR) 109 [facility]2022-10-15 11:23:00 Test Item Value Reference Range Interpretation Comments Magnesium Lvl (test code = Magnesium 2.1 1.8-2.4 Lvl) [facility]2022-10-15 11:23:00 Test Item Value Reference Range Interpretation Comments Phosphorus (test code = Phosphorus) 4.5 2.5-4.5 [facility] CenterYdfqeiyVAYGXNVKCX5763-38-61 11:23:00 Test Item Value Reference Range Interpretation Comments WBC (test code = WBC) 15.4 3.7-10.4 [facility] CenterMtftqbwVAKIJNOHBQ6219-08-98 11:23:00 Test Item Value Reference Range Interpretation Comments RBC (test code = RBC) 3.93 4.20-5.40 [facility] CenterJgetywyGEQUZOLFJP7197-39-46 11:23:00 Test Item Value Reference Range Interpretation Comments Hgb (test code = Hgb) 10.3 12.0-16.0 [facility] CenterCbknypgGOLVBLUMSQ6696-13-66 11:23:00 Test Item Value Reference Range Interpretation Comments Hct (test code = Hct) 31.8 36.0-48.0 [facility] CenterTzrquoaPSZMCQRQSR2164-77-81 11:23:00 Test Item Value Reference Range Interpretation Comments MCV (test code = MCV) 80.8 80.0-98.0 [facility] CenterWxneeycSNLZUPCNKY2375-78-41 11:23:00 Test Item Value Reference Range Interpretation Comments MCH (test code = MCH) 26.1 pg 27.0-31.0 [facility] CenterFppiiihRPEDFXJKIC9065-14-19 11:23:00 Test Item Value Reference Range Interpretation Comments MCHC (test code = MCHC) 32.3 32.0-36.0 [facility] CenterUwzlpuaOEWWRQJZYD5798-57-52 11:23:00 Test Item Value Reference Range Interpretation Comments RDW (test code = RDW) 16.4 11.5-14.5 [facility] CenterFmmaozwXJOQRSHLQG6487-15-21 11:23:00 Test Item Value Reference Range Interpretation Comments Platelet (test code = Platelet) 342 133-450 [facility] CenterLiliiwkQSMGDFGOJC5497-78-86 11:23:00 Test Item Value Reference Range Interpretation Comments MPV (test code = MPV) 8.1 7.4-10.4 [place] [address]-10-15 11:23:00 Test Item Value Reference Range Interpretation Comments Segs (test code = Segs) 82.0 45.0-75.0 [place] [address]-10-15 11:23:00 Test Item Value Reference Range Interpretation Comments Lymphocytes (test code = Lymphocytes) 8.9 20.0-40.0 [place] [address]-10-15 11:23:00 Test Item Value Reference Range Interpretation Comments Monocytes (test code = Monocytes) 6.0 2.0-12.0 [place] [address]-10-15 11:23:00 Test Item Value Reference Range Interpretation Comments Eosinophils (test code = 2.8 See_Comment [A utomated message] The Eosinophils) system which ge nerated this result tra nsmitted reference range : <=4.0. The reference r quynh was not used to int erpret this result as normal/abnormal . [place] [address]-10-15 11:23:00 Test Item Value Reference Range Interpretation Comments Basophils (test code = 0.3 See_Comment [Aut omated message] The Basophils) system which ge nerated this result tra nsmitted reference range : <=1.0. The reference r quynh was not used to int erpret this result as normal/abnormal . [place] [address]-10-15 11:23:00 Test Item Value Reference Range Interpretation Comments Neutrophils # (test code = Neutrophils 12.7 1.5-8.1 #) [place] [address]-10-15 11:23:00 Test Item Value Reference Range Interpretation Comments Lymphocytes # (test code = Lymphocytes 1.4 1.0-5.5 #) [place] [address]-10-15 11:23:00 Test Item Value Reference Range Interpretation Comments Monocytes # (test code 0.9 See_Comment [Aut omated message] The = Monocytes #) system which generated this result tra nsmitted reference range : <=0.8. The reference r quynh was not used to int erpret this result as normal/abnormal . [place] [address]-10-15 11:23:00 Test Item Value Reference Range Interpretation Comments Eosinophils # (test code 0.4 See_Comment [A utomated message] The = Eosinophils #) system whic h generated this result tra nsmitted reference range : <=0.5. The reference r quynh was not used to int erpret this result as normal/abnormal . [facility] [id number] 11:23:00 Test Item Value Reference Range Interpretation Comments Glucose Lvl (test code = Glucose Lvl) 96 70-99 [place] 786342-10-15 11:23:00 Test Item Value Reference Range Interpretation Comments BUN (test code = BUN) 13 7-22 [place] 786342-10-15 11:23:00 Test Item Value Reference Range Interpretation Comments Creatinine Lvl (test code = Creatinine 0.57 0.50-1.40 Lvl) [facility] [id number] 11:23:00 Test Item Value Reference Range Interpretation Comments Sodium Lvl (test code = Sodium Lvl) 137 135-145 [place] 786342-10-15 11:23:00 Test Item Value Reference Range Interpretation Comments Potassium Lvl (test code = Potassium 3.6 3.5-5.1 Lvl) [facility]NetevenMARK [facility] [id number] 11:23:00 Test Item Value Reference Range Interpretation Comments Chloride Lvl (test code = Chloride Lvl) 100 95-109 [facility] [id number] 11:23:00 Test Item Value Reference Range Interpretation Comments CO2 (test code = CO2) 30 24-32 [place] 786342-10-15 11:23:00 Test Item Value Reference Range Interpretation Comments Calcium Lvl (test code = Calcium Lvl) 9.2 8.5-10.5 [facility] [id number] 11:23:00 Test Item Value Reference Range Interpretation Comments AGAP (test code = AGAP) 10.6 10.0-20.0 [facility] [id number] 11:23:00 Test Item Value Reference Range Interpretation Comments eGFR (test code = eGFR) 109 [place] 786342-10-15 11:23:00 Test Item Value Reference Range Interpretation Comments Magnesium Lvl (test code = Magnesium 2.1 1.8-2.4 Lvl) [facility]NetevenMARK [facility] [id number] 11:23:00 Test Item Value Reference Range Interpretation Comments Phosphorus (test code = Phosphorus) 4.5 2.5-4.5 [place] [address]-10-15 11:23:00 Test Item Value Reference Range Interpretation Comments WBC (test code = WBC) 15.4 3.7-10.4 [place] 439852-10-15 11:23:00 Test Item Value Reference Range Interpretation Comments RBC (test code = RBC) 3.93 4.20-5.40 [place] 439852-10-15 11:23:00 Test Item Value Reference Range Interpretation Comments Hgb (test code = Hgb) 10.3 12.0-16.0 [place] [address]-10-15 11:23:00 Test Item Value Reference Range Interpretation Comments Hct (test code = Hct) 31.8 36.0-48.0 [place] 439852-10-15 11:23:00 Test Item Value Reference Range Interpretation Comments MCV (test code = MCV) 80.8 80.0-98.0 [place] 439852-10-15 11:23:00 Test Item Value Reference Range Interpretation Comments MCH (test code = MCH) 26.1 pg 27.0-31.0 [place] [address]-10-15 11:23:00 Test Item Value Reference Range Interpretation Comments MCHC (test code = MCHC) 32.3 32.0-36.0 [facility] CenterRwmqdywMOVHMOIETS3040-51-34 11:23:00 Test Item Value Reference Range Interpretation Comments RDW (test code = RDW) 16.4 11.5-14.5 [facility] CenterJxqodhbOKDWLYRVQD3933-78-49 11:23:00 Test Item Value Reference Range Interpretation Comments Platelet (test code = Platelet) 342 133-450 [facility] CenterArobcggGKDXIFBCKF9037-09-61 11:23:00 Test Item Value Reference Range Interpretation Comments MPV (test code = MPV) 8.1 7.4-10.4 [place] [address]-10-15 11:23:00 Test Item Value Reference Range Interpretation Comments Segs (test code = Segs) 82.0 45.0-75.0 [place] [address]-10-15 11:23:00 Test Item Value Reference Range Interpretation Comments Lymphocytes (test code = Lymphocytes) 8.9 20.0-40.0 [place] [address]-10-15 11:23:00 Test Item Value Reference Range Interpretation Comments Monocytes (test code = Monocytes) 6.0 2.0-12.0 [place] [address]-10-15 11:23:00 Test Item Value Reference Range Interpretation Comments Eosinophils (test code = 2.8 See_Comment [A utomated message] The Eosinophils) system which ge nerated this result tra nsmitted reference range : <=4.0. The reference r quynh was not used to int erpret this result as normal/abnormal . [place] [address]-10-15 11:23:00 Test Item Value Reference Range Interpretation Comments Basophils (test code = 0.3 See_Comment [Aut omated message] The Basophils) system which ge nerated this result tra nsmitted reference range : <=1.0. The reference r quynh was not used to int erpret this result as normal/abnormal . [place] [address]-10-15 11:23:00 Test Item Value Reference Range Interpretation Comments Neutrophils # (test code = Neutrophils 12.7 1.5-8.1 #) [place] [address]-10-15 11:23:00 Test Item Value Reference Range Interpretation Comments Lymphocytes # (test code = Lymphocytes 1.4 1.0-5.5 #) [place] [address]-10-15 11:23:00 Test Item Value Reference Range Interpretation Comments Monocytes # (test code 0.9 See_Comment [Aut omated message] The = Monocytes #) system which generated this result tra nsmitted reference range : <=0.8. The reference r quynh was not used to int erpret this result as normal/abnormal . [place] [address]-10-15 11:23:00 Test Item Value Reference Range Interpretation Comments Eosinophils # (test code 0.4 See_Comment [A utomated message] The = Eosinophils #) system whic h generated this result tra nsmitted reference range : <=0.5. The reference r quynh was not used to int erpret this result as normal/abnormal . [facility] [id number] 11:23:00 Test Item Value Reference Range Interpretation Comments Glucose Lvl (test code = Glucose Lvl) 96 70-99 [facility] [id number] 11:23:00 Test Item Value Reference Range Interpretation Comments BUN (test code = BUN) 13 7-22 [place] 786342-10-15 11:23:00 Test Item Value Reference Range Interpretation Comments Creatinine Lvl (test code = Creatinine 0.57 0.50-1.40 Lvl) [place] 786342-10-15 11:23:00 Test Item Value Reference Range Interpretation Comments Sodium Lvl (test code = Sodium Lvl) 137 135-145 [place] 786342-10-15 11:23:00 Test Item Value Reference Range Interpretation Comments Potassium Lvl (test code = Potassium 3.6 3.5-5.1 Lvl) [place] 786342-10-15 11:23:00 Test Item Value Reference Range Interpretation Comments Chloride Lvl (test code = Chloride Lvl) 100 95-109 [place] 786342-10-15 11:23:00 Test Item Value Reference Range Interpretation Comments CO2 (test code = CO2) 30 24-32 [place] 786342-10-15 11:23:00 Test Item Value Reference Range Interpretation Comments Calcium Lvl (test code = Calcium Lvl) 9.2 8.5-10.5 [place] 786342-10-15 11:23:00 Test Item Value Reference Range Interpretation Comments AGAP (test code = AGAP) 10.6 10.0-20.0 [place] 786342-10-15 11:23:00 Test Item Value Reference Range Interpretation Comments eGFR (test code = eGFR) 109 [place] 786342-10-15 11:23:00 Test Item Value Reference Range Interpretation Comments Magnesium Lvl (test code = Magnesium 2.1 1.8-2.4 Lvl) [place] 786342-10-15 11:23:00 Test Item Value Reference Range Interpretation Comments Phosphorus (test code = Phosphorus) 4.5 2.5-4.5 [place] 439852-10-15 11:23:00 Test Item Value Reference Range Interpretation Comments WBC (test code = WBC) 15.4 3.7-10.4 [place] [address]-10-15 11:23:00 Test Item Value Reference Range Interpretation Comments RBC (test code = RBC) 3.93 4.20-5.40 [place] [address]-10-15 11:23:00 Test Item Value Reference Range Interpretation Comments Hgb (test code = Hgb) 10.3 12.0-16.0 [facility] CenterIdofbjsFPOPHNBSBU5881-64-46 11:23:00 Test Item Value Reference Range Interpretation Comments Hct (test code = Hct) 31.8 36.0-48.0 [facility] CenterImjolicIMBEXPEBQK3382-21-07 11:23:00 Test Item Value Reference Range Interpretation Comments MCV (test code = MCV) 80.8 80.0-98.0 [facility] CenterKlxrneoIDSSEERRGA9170-03-04 11:23:00 Test Item Value Reference Range Interpretation Comments MCH (test code = MCH) 26.1 pg 27.0-31.0 [facility] CenterRpbsfssFZCVSMAWVJ5611-46-95 11:23:00 Test Item Value Reference Range Interpretation Comments MCHC (test code = MCHC) 32.3 32.0-36.0 [facility] CenterZlqqkfxIDTSZDBBXH2700-53-51 11:23:00 Test Item Value Reference Range Interpretation Comments RDW (test code = RDW) 16.4 11.5-14.5 [facility] CenterJiuxvwrBQRRQMAMYM7766-09-54 11:23:00 Test Item Value Reference Range Interpretation Comments Platelet (test code = Platelet) 342 133-450 [facility] CenterMbecxqsZLJLROTKGK3952-62-49 11:23:00 Test Item Value Reference Range Interpretation Comments MPV (test code = MPV) 8.1 7.4-10.4 [facility] CenterQcqayfoRSYASBNKAE3461-18-88 11:23:00 Test Item Value Reference Range Interpretation Comments Segs (test code = Segs) 82.0 45.0-75.0 [facility] CenterDtvwyjtMVJKHCZTWU5455-02-01 11:23:00 Test Item Value Reference Range Interpretation Comments Lymphocytes (test code = Lymphocytes) 8.9 20.0-40.0 [facility] CenterLfjntncYQVWWCDWPC4228-44-92 11:23:00 Test Item Value Reference Range Interpretation Comments Monocytes (test code = Monocytes) 6.0 2.0-12.0 [facility] CenterWtnglxiBKMHFKVYKH0746-29-46 11:23:00 Test Item Value Reference Range Interpretation Comments Eosinophils (test code = 2.8 See_Comment [A utomated message] The Eosinophils) system which ge nerated this result tra nsmitted reference range : <=4.0. The reference r quynh was not used to int erpret this result as normal/abnormal . [place] [address]-10-15 11:23:00 Test Item Value Reference Range Interpretation Comments Basophils (test code = 0.3 See_Comment [Aut omated message] The Basophils) system which ge nerated this result tra nsmitted reference range : <=1.0. The reference r quynh was not used to int erpret this result as normal/abnormal . [place] [address]-10-15 11:23:00 Test Item Value Reference Range Interpretation Comments Neutrophils # (test code = Neutrophils 12.7 1.5-8.1 #) [place] [address]-10-15 11:23:00 Test Item Value Reference Range Interpretation Comments Lymphocytes # (test code = Lymphocytes 1.4 1.0-5.5 #) [place] [address]-10-15 11:23:00 Test Item Value Reference Range Interpretation Comments Monocytes # (test code 0.9 See_Comment [Aut omated message] The = Monocytes #) system which generated this result tra nsmitted reference range : <=0.8. The reference r quynh was not used to int erpret this result as normal/abnormal . [place] [address]-10-15 11:23:00 Test Item Value Reference Range Interpretation Comments Eosinophils # (test code 0.4 See_Comment [A utomated message] The = Eosinophils #) system whic h generated this result tra nsmitted reference range : <=0.5. The reference r quynh was not used to int erpret this result as normal/abnormal . [facility] [id number] 11:23:00 Test Item Value Reference Range Interpretation Comments Glucose Lvl (test code = Glucose Lvl) 96 70-99 [facility] [id number] 11:23:00 Test Item Value Reference Range Interpretation Comments BUN (test code = BUN) 13 7-22 [facility] [id number] 11:23:00 Test Item Value Reference Range Interpretation Comments Creatinine Lvl (test code = Creatinine 0.57 0.50-1.40 Lvl) [facility]2022-10-15 11:23:00 Test Item Value Reference Range Interpretation Comments Sodium Lvl (test code = Sodium Lvl) 137 135-145 [place] 786342-10-15 11:23:00 Test Item Value Reference Range Interpretation Comments Potassium Lvl (test code = Potassium 3.6 3.5-5.1 Lvl) [place] 786342-10-15 11:23:00 Test Item Value Reference Range Interpretation Comments Chloride Lvl (test code = Chloride Lvl) 100 95-109 [place] 786342-10-15 11:23:00 Test Item Value Reference Range Interpretation Comments CO2 (test code = CO2) 30 24-32 [place] 786342-10-15 11:23:00 Test Item Value Reference Range Interpretation Comments Calcium Lvl (test code = Calcium Lvl) 9.2 8.5-10.5 [place] 786342-10-15 11:23:00 Test Item Value Reference Range Interpretation Comments AGAP (test code = AGAP) 10.6 10.0-20.0 [place] 786342-10-15 11:23:00 Test Item Value Reference Range Interpretation Comments eGFR (test code = eGFR) 109 [place] 786342-10-15 11:23:00 Test Item Value Reference Range Interpretation Comments Magnesium Lvl (test code = Magnesium 2.1 1.8-2.4 Lvl) [place] 786342-10-15 11:23:00 Test Item Value Reference Range Interpretation Comments Phosphorus (test code = Phosphorus) 4.5 2.5-4.5 [place] 439852-10-15 11:23:00 Test Item Value Reference Range Interpretation Comments WBC (test code = WBC) 15.4 3.7-10.4 [place] [address]-10-15 11:23:00 Test Item Value Reference Range Interpretation Comments RBC (test code = RBC) 3.93 4.20-5.40 [place] [address]-10-15 11:23:00 Test Item Value Reference Range Interpretation Comments Hgb (test code = Hgb) 10.3 12.0-16.0 [place] [address]-10-15 11:23:00 Test Item Value Reference Range Interpretation Comments Hct (test code = Hct) 31.8 36.0-48.0 [place] [address]-10-15 11:23:00 Test Item Value Reference Range Interpretation Comments MCV (test code = MCV) 80.8 80.0-98.0 [place] [address]-10-15 11:23:00 Test Item Value Reference Range Interpretation Comments MCH (test code = MCH) 26.1 pg 27.0-31.0 [place] [address]-10-15 11:23:00 Test Item Value Reference Range Interpretation Comments MCHC (test code = MCHC) 32.3 32.0-36.0 [place] [address]-10-15 11:23:00 Test Item Value Reference Range Interpretation Comments RDW (test code = RDW) 16.4 11.5-14.5 [place] [address]-10-15 11:23:00 Test Item Value Reference Range Interpretation Comments Platelet (test code = Platelet) 342 133-450 [place] 439852-10-15 11:23:00 Test Item Value Reference Range Interpretation Comments MPV (test code = MPV) 8.1 7.4-10.4 [place] [address]-10-15 11:23:00 Test Item Value Reference Range Interpretation Comments Segs (test code = Segs) 82.0 45.0-75.0 [place] [address]-10-15 11:23:00 Test Item Value Reference Range Interpretation Comments Lymphocytes (test code = Lymphocytes) 8.9 20.0-40.0 [place] [address]-10-15 11:23:00 Test Item Value Reference Range Interpretation Comments Monocytes (test code = Monocytes) 6.0 2.0-12.0 [place] [address]-10-15 11:23:00 Test Item Value Reference Range Interpretation Comments Eosinophils (test code = 2.8 See_Comment [A utomated message] The Eosinophils) system which ge nerated this result tra nsmitted reference range : <=4.0. The reference r quynh was not used to int erpret this result as normal/abnormal . [place] [address]-10-15 11:23:00 Test Item Value Reference Range Interpretation Comments Basophils (test code = 0.3 See_Comment [Aut omated message] The Basophils) system which ge nerated this result tra nsmitted reference range : <=1.0. The reference r quynh was not used to int erpret this result as normal/abnormal . [place] [address]-10-15 11:23:00 Test Item Value Reference Range Interpretation Comments Neutrophils # (test code = Neutrophils 12.7 1.5-8.1 #) [place] [address]-10-15 11:23:00 Test Item Value Reference Range Interpretation Comments Lymphocytes # (test code = Lymphocytes 1.4 1.0-5.5 #) [place] [address]-10-15 11:23:00 Test Item Value Reference Range Interpretation Comments Monocytes # (test code 0.9 See_Comment [Aut omated message] The = Monocytes #) system which generated this result tra nsmitted reference range : <=0.8. The reference r quynh was not used to int erpret this result as normal/abnormal . [place] [address]-10-15 11:23:00 Test Item Value Reference Range Interpretation Comments Eosinophils # (test code 0.4 See_Comment [A utomated message] The = Eosinophils #) system whic h generated this result tra nsmitted reference range : <=0.5. The reference r quynh was not used to int erpret this result as normal/abnormal . [place] 786342-10-15 11:23:00 Test Item Value Reference Range Interpretation Comments Glucose Lvl (test code = Glucose Lvl) 96 70-99 [place] 786342-10-15 11:23:00 Test Item Value Reference Range Interpretation Comments BUN (test code = BUN) 13 7-22 [place] [address]-10-15 11:23:00 Test Item Value Reference Range Interpretation Comments Creatinine Lvl (test code = Creatinine 0.57 0.50-1.40 Lvl) [place] [address]-10-15 11:23:00 Test Item Value Reference Range Interpretation Comments Sodium Lvl (test code = Sodium Lvl) 137 135-145 [place] [address]-10-15 11:23:00 Test Item Value Reference Range Interpretation Comments Potassium Lvl (test code = Potassium 3.6 3.5-5.1 Lvl) [place] [address]-10-15 11:23:00 Test Item Value Reference Range Interpretation Comments Chloride Lvl (test code = Chloride Lvl) 100 95-109 [place] [address]-10-15 11:23:00 Test Item Value Reference Range Interpretation Comments CO2 (test code = CO2) 30 24-32 [place] 786342-10-15 11:23:00 Test Item Value Reference Range Interpretation Comments Calcium Lvl (test code = Calcium Lvl) 9.2 8.5-10.5 [place] 786342-10-15 11:23:00 Test Item Value Reference Range Interpretation Comments AGAP (test code = AGAP) 10.6 10.0-20.0 [place] 786342-10-15 11:23:00 Test Item Value Reference Range Interpretation Comments eGFR (test code = eGFR) 109 [facility]2022-10-15 11:23:00 Test Item Value Reference Range Interpretation Comments Magnesium Lvl (test code = Magnesium 2.1 1.8-2.4 Lvl) [place] 786342-10-15 11:23:00 Test Item Value Reference Range Interpretation Comments Phosphorus (test code = Phosphorus) 4.5 2.5-4.5 [place] 439852-10-15 11:23:00 Test Item Value Reference Range Interpretation Comments WBC (test code = WBC) 15.4 3.7-10.4 [place] [address]-10-15 11:23:00 Test Item Value Reference Range Interpretation Comments RBC (test code = RBC) 3.93 4.20-5.40 [place] [address]-10-15 11:23:00 Test Item Value Reference Range Interpretation Comments Hgb (test code = Hgb) 10.3 12.0-16.0 [place] [address]-10-15 11:23:00 Test Item Value Reference Range Interpretation Comments Hct (test code = Hct) 31.8 36.0-48.0 [place] [address]-10-15 11:23:00 Test Item Value Reference Range Interpretation Comments MCV (test code = MCV) 80.8 80.0-98.0 [place] [address]-10-15 11:23:00 Test Item Value Reference Range Interpretation Comments MCH (test code = MCH) 26.1 pg 27.0-31.0 [place] 439852-10-15 11:23:00 Test Item Value Reference Range Interpretation Comments MCHC (test code = MCHC) 32.3 32.0-36.0 [facility] CenterIxtqitwYHWZKQCKFZ7089-21-46 11:23:00 Test Item Value Reference Range Interpretation Comments RDW (test code = RDW) 16.4 11.5-14.5 [place] 439852-10-15 11:23:00 Test Item Value Reference Range Interpretation Comments Platelet (test code = Platelet) 342 133-450 [facility] CenterGokpqmyQNGHCLLYZN7937-15-06 11:23:00 Test Item Value Reference Range Interpretation Comments MPV (test code = MPV) 8.1 7.4-10.4 [place] 439852-10-15 11:23:00 Test Item Value Reference Range Interpretation Comments Segs (test code = Segs) 82.0 45.0-75.0 [place] 439852-10-15 11:23:00 Test Item Value Reference Range Interpretation Comments Lymphocytes (test code = Lymphocytes) 8.9 20.0-40.0 [facility] CenterBrgrsmzETTEGWZRJR6084-35-99 11:23:00 Test Item Value Reference Range Interpretation Comments Monocytes (test code = Monocytes) 6.0 2.0-12.0 [facility] CenterYqffmfsWGKBOXSSNN0505-43-59 11:23:00 Test Item Value Reference Range Interpretation Comments Eosinophils (test code = 2.8 See_Comment [A utomated message] The Eosinophils) system which ge nerated this result tra nsmitted reference range : <=4.0. The reference r quynh was not used to int erpret this result as normal/abnormal . [facility] CenterKxlocivKZMZZMORAI7319-10-92 11:23:00 Test Item Value Reference Range Interpretation Comments Basophils (test code = 0.3 See_Comment [Aut omated message] The Basophils) system which ge nerated this result tra nsmitted reference range : <=1.0. The reference r quynh was not used to int erpret this result as normal/abnormal . [facility] CenterLkpgddsSQQUXZOEHS2259-41-98 11:23:00 Test Item Value Reference Range Interpretation Comments Neutrophils # (test code = Neutrophils 12.7 1.5-8.1 #) [facility] CenterZedqoxqMFAENOWIZE5878-80-72 11:23:00 Test Item Value Reference Range Interpretation Comments Lymphocytes # (test code = Lymphocytes 1.4 1.0-5.5 #) [place] [address]-10-15 11:23:00 Test Item Value Reference Range Interpretation Comments Monocytes # (test code 0.9 See_Comment [Aut omated message] The = Monocytes #) system which generated this result tra nsmitted reference range : <=0.8. The reference r quynh was not used to int erpret this result as normal/abnormal . [place] 439852-10-15 11:23:00 Test Item Value Reference Range Interpretation Comments Eosinophils # (test code 0.4 See_Comment [A utomated message] The = Eosinophils #) system whic h generated this result tra nsmitted reference range : <=0.5. The reference r quynh was not used to int erpret this result as normal/abnormal . [facility] [id number] 11:23:00 Test Item Value Reference Range Interpretation Comments Glucose Lvl (test code = Glucose Lvl) 96 70-99 [facility] [id number] 11:23:00 Test Item Value Reference Range Interpretation Comments BUN (test code = BUN) 13 7-22 [facility] [id number] 11:23:00 Test Item Value Reference Range Interpretation Comments Creatinine Lvl (test code = Creatinine 0.57 0.50-1.40 Lvl) [facility] [id number] 11:23:00 Test Item Value Reference Range Interpretation Comments Sodium Lvl (test code = Sodium Lvl) 137 135-145 [facility] [id number] 11:23:00 Test Item Value Reference Range Interpretation Comments Potassium Lvl (test code = Potassium 3.6 3.5-5.1 Lvl) [facility] [id number] 11:23:00 Test Item Value Reference Range Interpretation Comments Chloride Lvl (test code = Chloride Lvl) 100 95-109 [facility] [id number] 11:23:00 Test Item Value Reference Range Interpretation Comments CO2 (test code = CO2) 30 24-32 [facility] [id number] 11:23:00 Test Item Value Reference Range Interpretation Comments Calcium Lvl (test code = Calcium Lvl) 9.2 8.5-10.5 [facility] [id number] 11:23:00 Test Item Value Reference Range Interpretation Comments AGAP (test code = AGAP) 10.6 10.0-20.0 [facility]2022-10-15 11:23:00 Test Item Value Reference Range Interpretation Comments eGFR (test code = eGFR) 109 [facility]2022-10-15 11:23:00 Test Item Value Reference Range Interpretation Comments Magnesium Lvl (test code = Magnesium 2.1 1.8-2.4 Lvl) [facility]2022-10-15 11:23:00 Test Item Value Reference Range Interpretation Comments Phosphorus (test code = Phosphorus) 4.5 2.5-4.5 [facility] CenterYhgsaloHFGDMSUVPV8695-17-84 11:23:00 Test Item Value Reference Range Interpretation Comments WBC (test code = WBC) 15.4 3.7-10.4 [facility] CenterVdgnshsJSVMFMIBDW8066-28-39 11:23:00 Test Item Value Reference Range Interpretation Comments RBC (test code = RBC) 3.93 4.20-5.40 [facility] CenterEpxbycvAYTSJNOYLX7586-25-95 11:23:00 Test Item Value Reference Range Interpretation Comments Hgb (test code = Hgb) 10.3 12.0-16.0 [facility] CenterGzvonfrAOWRNESVJT1210-11-06 11:23:00 Test Item Value Reference Range Interpretation Comments Hct (test code = Hct) 31.8 36.0-48.0 [facility] CenterGgukruoXAIUHRAZFW4643-16-37 11:23:00 Test Item Value Reference Range Interpretation Comments MCV (test code = MCV) 80.8 80.0-98.0 [facility] CenterKsmkarlGZMLGORZNV8271-23-31 11:23:00 Test Item Value Reference Range Interpretation Comments MCH (test code = MCH) 26.1 pg 27.0-31.0 [place]852-10-15 11:23:00 Test Item Value Reference Range Interpretation Comments MCHC (test code = MCHC) 32.3 32.0-36.0 [facility] CenterCdndrozEDHCWNQCEW0423-65-97 11:23:00 Test Item Value Reference Range Interpretation Comments RDW (test code = RDW) 16.4 11.5-14.5 [place] 439852-10-15 11:23:00 Test Item Value Reference Range Interpretation Comments Platelet (test code = Platelet) 342 133-450 [place] [address]-10-15 11:23:00 Test Item Value Reference Range Interpretation Comments MPV (test code = MPV) 8.1 7.4-10.4 [place] [address]-10-15 11:23:00 Test Item Value Reference Range Interpretation Comments Segs (test code = Segs) 82.0 45.0-75.0 [place] [address]-10-15 11:23:00 Test Item Value Reference Range Interpretation Comments Lymphocytes (test code = Lymphocytes) 8.9 20.0-40.0 [place] [address]-10-15 11:23:00 Test Item Value Reference Range Interpretation Comments Monocytes (test code = Monocytes) 6.0 2.0-12.0 [place] [address]-10-15 11:23:00 Test Item Value Reference Range Interpretation Comments Eosinophils (test code = 2.8 See_Comment [A utomated message] The Eosinophils) system which ge nerated this result tra nsmitted reference range : <=4.0. The reference r quynh was not used to int erpret this result as normal/abnormal . [place] [address]-10-15 11:23:00 Test Item Value Reference Range Interpretation Comments Basophils (test code = 0.3 See_Comment [Aut omated message] The Basophils) system which ge nerated this result tra nsmitted reference range : <=1.0. The reference r quynh was not used to int erpret this result as normal/abnormal . [place] [address]-10-15 11:23:00 Test Item Value Reference Range Interpretation Comments Neutrophils # (test code = Neutrophils 12.7 1.5-8.1 #) [place] [address]-10-15 11:23:00 Test Item Value Reference Range Interpretation Comments Lymphocytes # (test code = Lymphocytes 1.4 1.0-5.5 #) [place] [address]-10-15 11:23:00 Test Item Value Reference Range Interpretation Comments Monocytes # (test code 0.9 See_Comment [Aut omated message] The = Monocytes #) system which generated this result tra nsmitted reference range : <=0.8. The reference r quynh was not used to int erpret this result as normal/abnormal . [place] [address]-10-15 11:23:00 Test Item Value Reference Range Interpretation Comments Eosinophils # (test code 0.4 See_Comment [A utomated message] The = Eosinophils #) system [employer] h generated this result tra nsmitted reference range : <=0.5. The reference r quynh was not used to int erpret this result as normal/abnormal . [facility] [id number] 11:23:00 Test Item Value Reference Range Interpretation Comments Glucose Lvl (test code = Glucose Lvl) 96 70-99 [facility] [id number] 11:23:00 Test Item Value Reference Range Interpretation Comments BUN (test code = BUN) 13 7-22 [facility] [id number] 11:23:00 Test Item Value Reference Range Interpretation Comments Creatinine Lvl (test code = Creatinine 0.57 0.50-1.40 Lvl) [facility] HospitalNetevenAN[facility] COMMUN[facility] [id number] 11:23:00 Test Item Value Reference Range Interpretation Comments Sodium Lvl (test code = Sodium Lvl) 137 135-145 [facility] [id number] 11:23:00 Test Item Value Reference Range Interpretation Comments Potassium Lvl (test code = Potassium 3.6 3.5-5.1 Lvl) [facility] [id number] 11:23:00 Test Item Value Reference Range Interpretation Comments Chloride Lvl (test code = Chloride Lvl) 100 95-109 [facility] [id number] 11:23:00 Test Item Value Reference Range Interpretation Comments CO2 (test code = CO2) 30 24-32 [facility] [id number] 11:23:00 Test Item Value Reference Range Interpretation Comments Calcium Lvl (test code = Calcium Lvl) 9.2 8.5-10.5 [facility] [id number] 11:23:00 Test Item Value Reference Range Interpretation Comments AGAP (test code = AGAP) 10.6 10.0-20.0 [facility] [id number] 11:23:00 Test Item Value Reference Range Interpretation Comments eGFR (test code = eGFR) 109 [facility] [id number] 11:23:00 Test Item Value Reference Range Interpretation Comments Magnesium Lvl (test code = Magnesium 2.1 1.8-2.4 Lvl) [facility]2022-10-15 11:23:00 Test Item Value Reference Range Interpretation Comments Phosphorus (test code = Phosphorus) 4.5 2.5-4.5 [place] [address]-10-15 11:23:00 Test Item Value Reference Range Interpretation Comments WBC (test code = WBC) 15.4 3.7-10.4 [facility] CenterQewnkboDJEUHDFWNI5718-47-41 11:23:00 Test Item Value Reference Range Interpretation Comments RBC (test code = RBC) 3.93 4.20-5.40 [place] [address]-10-15 11:23:00 Test Item Value Reference Range Interpretation Comments Hgb (test code = Hgb) 10.3 12.0-16.0 [place] [address]-10-15 11:23:00 Test Item Value Reference Range Interpretation Comments Hct (test code = Hct) 31.8 36.0-48.0 [facility] CenterYdkrovtOXAPRBYDSO6573-83-67 11:23:00 Test Item Value Reference Range Interpretation Comments MCV (test code = MCV) 80.8 80.0-98.0 [facility] CenterEmomeylYWKDOYRYNC6810-58-57 11:23:00 Test Item Value Reference Range Interpretation Comments MCH (test code = MCH) 26.1 pg 27.0-31.0 [facility] CenterGhjaemqZRLZAVZCWI5121-68-78 11:23:00 Test Item Value Reference Range Interpretation Comments MCHC (test code = MCHC) 32.3 32.0-36.0 [facility] CenterBpzxmcmQIYGJLTWGZ6755-64-77 11:23:00 Test Item Value Reference Range Interpretation Comments RDW (test code = RDW) 16.4 11.5-14.5 [place] [address]-10-15 11:23:00 Test Item Value Reference Range Interpretation Comments Platelet (test code = Platelet) 342 133-450 [facility] CenterEsyqrgaXJRWTJDZKZ7280-63-11 11:23:00 Test Item Value Reference Range Interpretation Comments MPV (test code = MPV) 8.1 7.4-10.4 [place] [address]-10-15 11:23:00 Test Item Value Reference Range Interpretation Comments Segs (test code = Segs) 82.0 45.0-75.0 [facility] CenterNcnbcfeSUBFWIQCPT4313-64-79 11:23:00 Test Item Value Reference Range Interpretation Comments Lymphocytes (test code = Lymphocytes) 8.9 20.0-40.0 [place] 439852-10-15 11:23:00 Test Item Value Reference Range Interpretation Comments Monocytes (test code = Monocytes) 6.0 2.0-12.0 [place] [address]-10-15 11:23:00 Test Item Value Reference Range Interpretation Comments Eosinophils (test code = 2.8 See_Comment [A utomated message] The Eosinophils) system which ge nerated this result tra nsmitted reference range : <=4.0. The reference r quynh was not used to int erpret this result as normal/abnormal . [place] 439852-10-15 11:23:00 Test Item Value Reference Range Interpretation Comments Basophils (test code = 0.3 See_Comment [Aut omated message] The Basophils) system which ge nerated this result tra nsmitted reference range : <=1.0. The reference r quynh was not used to int erpret this result as normal/abnormal . [facility] CenterIjxhdcrRGKYLQHELH8879-56-00 11:23:00 Test Item Value Reference Range Interpretation Comments Neutrophils # (test code = Neutrophils 12.7 1.5-8.1 #) [place] 439852-10-15 11:23:00 Test Item Value Reference Range Interpretation Comments Lymphocytes # (test code = Lymphocytes 1.4 1.0-5.5 #) [place] 439852-10-15 11:23:00 Test Item Value Reference Range Interpretation Comments Monocytes # (test code 0.9 See_Comment [Aut omated message] The = Monocytes #) system which generated this result tra nsmitted reference range : <=0.8. The reference r quynh was not used to int erpret this result as normal/abnormal . [place] [address]-10-15 11:23:00 Test Item Value Reference Range Interpretation Comments Eosinophils # (test code 0.4 See_Comment [A utomated message] The = Eosinophils #) system whic h generated this result tra nsmitted reference range : <=0.5. The reference r quynh was not used to int erpret this result as normal/abnormal . [facility]2022-10-15 11:23:00 Test Item Value Reference Range Interpretation Comments Glucose Lvl (test code = Glucose Lvl) 96 70-99 [place] 786342-10-15 11:23:00 Test Item Value Reference Range Interpretation Comments BUN (test code = BUN) 13 7-22 [place] 786342-10-15 11:23:00 Test Item Value Reference Range Interpretation Comments Creatinine Lvl (test code = Creatinine 0.57 0.50-1.40 Lvl) [place] 786342-10-15 11:23:00 Test Item Value Reference Range Interpretation Comments Sodium Lvl (test code = Sodium Lvl) 137 135-145 [place] 786342-10-15 11:23:00 Test Item Value Reference Range Interpretation Comments Potassium Lvl (test code = Potassium 3.6 3.5-5.1 Lvl) [place] 786342-10-15 11:23:00 Test Item Value Reference Range Interpretation Comments Chloride Lvl (test code = Chloride Lvl) 100 95-109 [place] 786342-10-15 11:23:00 Test Item Value Reference Range Interpretation Comments CO2 (test code = CO2) 30 24-32 [place] 786342-10-15 11:23:00 Test Item Value Reference Range Interpretation Comments Calcium Lvl (test code = Calcium Lvl) 9.2 8.5-10.5 [facility]2022-10-15 11:23:00 Test Item Value Reference Range Interpretation Comments AGAP (test code = AGAP) 10.6 10.0-20.0 [place] 786342-10-15 11:23:00 Test Item Value Reference Range Interpretation Comments eGFR (test code = eGFR) 109 [place] 786342-10-15 11:23:00 Test Item Value Reference Range Interpretation Comments Magnesium Lvl (test code = Magnesium 2.1 1.8-2.4 Lvl) [place] 786342-10-15 11:23:00 Test Item Value Reference Range Interpretation Comments Phosphorus (test code = Phosphorus) 4.5 2.5-4.5 [place] 439852-10-15 11:23:00 Test Item Value Reference Range Interpretation Comments WBC (test code = WBC) 15.4 3.7-10.4 [place] 439852-10-15 11:23:00 Test Item Value Reference Range Interpretation Comments RBC (test code = RBC) 3.93 4.20-5.40 [facility] CenterZrbddljILYPHAECFF2513-41-27 11:23:00 Test Item Value Reference Range Interpretation Comments Hgb (test code = Hgb) 10.3 12.0-16.0 [facility] CenterSsyuspuSQLLQEYFFY4213-87-17 11:23:00 Test Item Value Reference Range Interpretation Comments Hct (test code = Hct) 31.8 36.0-48.0 [facility] CenterUlxrbvpZQBTZJJHER7105-98-33 11:23:00 Test Item Value Reference Range Interpretation Comments MCV (test code = MCV) 80.8 80.0-98.0 [facility] CenterSvhvwiiSRXZXZABIQ9606-73-50 11:23:00 Test Item Value Reference Range Interpretation Comments MCH (test code = MCH) 26.1 pg 27.0-31.0 [facility] CenterGsgzcvqKMIYILCXMZ4995-60-41 11:23:00 Test Item Value Reference Range Interpretation Comments MCHC (test code = MCHC) 32.3 32.0-36.0 [facility] CenterIbcbrgaWOZLQSVOHZ9884-89-31 11:23:00 Test Item Value Reference Range Interpretation Comments RDW (test code = RDW) 16.4 11.5-14.5 [facility] CenterIvbpdikLMGOOHLADM3236-90-99 11:23:00 Test Item Value Reference Range Interpretation Comments Platelet (test code = Platelet) 342 133-450 [facility] CenterOudcxosHMLINDBSCD9082-78-19 11:23:00 Test Item Value Reference Range Interpretation Comments MPV (test code = MPV) 8.1 7.4-10.4 [facility] CenterJhkmcydGJDFFEDLUV9251-51-87 11:23:00 Test Item Value Reference Range Interpretation Comments Segs (test code = Segs) 82.0 45.0-75.0 [facility] CenterEkkqgezIAHYGXBQXG6360-00-60 11:23:00 Test Item Value Reference Range Interpretation Comments Lymphocytes (test code = Lymphocytes) 8.9 20.0-40.0 [place] [address]-10-15 11:23:00 Test Item Value Reference Range Interpretation Comments Monocytes (test code = Monocytes) 6.0 2.0-12.0 [place] 439852-10-15 11:23:00 Test Item Value Reference Range Interpretation Comments Eosinophils (test code = 2.8 See_Comment [A utomated message] The Eosinophils) system which ge nerated this result tra nsmitted reference range : <=4.0. The reference r quynh was not used to int erpret this result as normal/abnormal . [place] [address]-10-15 11:23:00 Test Item Value Reference Range Interpretation Comments Basophils (test code = 0.3 See_Comment [Aut omated message] The Basophils) system which ge nerated this result tra nsmitted reference range : <=1.0. The reference r quynh was not used to int erpret this result as normal/abnormal . [place] [address]-10-15 11:23:00 Test Item Value Reference Range Interpretation Comments Neutrophils # (test code = Neutrophils 12.7 1.5-8.1 #) [place] [address]-10-15 11:23:00 Test Item Value Reference Range Interpretation Comments Lymphocytes # (test code = Lymphocytes 1.4 1.0-5.5 #) [place] [address]-10-15 11:23:00 Test Item Value Reference Range Interpretation Comments Monocytes # (test code 0.9 See_Comment [Aut omated message] The = Monocytes #) system which generated this result tra nsmitted reference range : <=0.8. The reference r quynh was not used to int erpret this result as normal/abnormal . [place] [address]-10-15 11:23:00 Test Item Value Reference Range Interpretation Comments Eosinophils # (test code 0.4 See_Comment [A utomated message] The = Eosinophils #) system whic h generated this result tra nsmitted reference range : <=0.5. The reference r quynh was not used to int erpret this result as normal/abnormal . [facility]2022-10-15 11:23:00 Test Item Value Reference Range Interpretation Comments Glucose Lvl (test code = Glucose Lvl) 96 70-99 [place] 786342-10-15 11:23:00 Test Item Value Reference Range Interpretation Comments BUN (test code = BUN) 13 7-22 [place] [address]-10-15 11:23:00 Test Item Value Reference Range Interpretation Comments Creatinine Lvl (test code = Creatinine 0.57 0.50-1.40 Lvl) [place] 786342-10-15 11:23:00 Test Item Value Reference Range Interpretation Comments Sodium Lvl (test code = Sodium Lvl) 137 135-145 [place] 786342-10-15 11:23:00 Test Item Value Reference Range Interpretation Comments Potassium Lvl (test code = Potassium 3.6 3.5-5.1 Lvl) [place] 786342-10-15 11:23:00 Test Item Value Reference Range Interpretation Comments Chloride Lvl (test code = Chloride Lvl) 100 95-109 [place] 786342-10-15 11:23:00 Test Item Value Reference Range Interpretation Comments CO2 (test code = CO2) 30 24-32 [place] 786342-10-15 11:23:00 Test Item Value Reference Range Interpretation Comments Calcium Lvl (test code = Calcium Lvl) 9.2 8.5-10.5 [place] 786342-10-15 11:23:00 Test Item Value Reference Range Interpretation Comments AGAP (test code = AGAP) 10.6 10.0-20.0 [place] 786342-10-15 11:23:00 Test Item Value Reference Range Interpretation Comments eGFR (test code = eGFR) 109 [place] 786342-10-15 11:23:00 Test Item Value Reference Range Interpretation Comments Magnesium Lvl (test code = Magnesium 2.1 1.8-2.4 Lvl) [place] 786342-10-15 11:23:00 Test Item Value Reference Range Interpretation Comments Phosphorus (test code = Phosphorus) 4.5 2.5-4.5 [facility]HIYSGVFRWO5445-[facility] 11:23:00 Test Item Value Reference Range Interpretation Comments WBC (test code = WBC) 15.4 3.7-10.4 [place] 786342-10-15 11:23:00 Test Item Value Reference Range Interpretation Comments Glucose Lvl (test code = Glucose Lvl) 96 70-99 [place] 786342-10-15 11:23:00 Test Item Value Reference Range Interpretation Comments BUN (test code = BUN) 13 7-22 [place] 786342-10-15 11:23:00 Test Item Value Reference Range Interpretation Comments Creatinine Lvl (test code = Creatinine 0.57 0.50-1.40 Lvl) [place] 786342-10-15 11:23:00 Test Item Value Reference Range Interpretation Comments Sodium Lvl (test code = Sodium Lvl) 137 135-145 [place] 786342-10-15 11:23:00 Test Item Value Reference Range Interpretation Comments Potassium Lvl (test code = Potassium 3.6 3.5-5.1 Lvl) [place] 786342-10-15 11:23:00 Test Item Value Reference Range Interpretation Comments Chloride Lvl (test code = Chloride Lvl) 100 95-109 [place] 786342-10-15 11:23:00 Test Item Value Reference Range Interpretation Comments CO2 (test code = CO2) 30 24-32 [place] 439852-10-15 11:23:00 Test Item Value Reference Range Interpretation Comments RBC (test code = RBC) 3.93 4.20-5.40 [place] 786342-10-15 11:23:00 Test Item Value Reference Range Interpretation Comments Calcium Lvl (test code = Calcium Lvl) 9.2 8.5-10.5 [place] 786342-10-15 11:23:00 Test Item Value Reference Range Interpretation Comments AGAP (test code = AGAP) 10.6 10.0-20.0 [place] 786342-10-15 11:23:00 Test Item Value Reference Range Interpretation Comments eGFR (test code = eGFR) 109 [place] 786342-10-15 11:23:00 Test Item Value Reference Range Interpretation Comments Magnesium Lvl (test code = Magnesium 2.1 1.8-2.4 Lvl) [place] 786342-10-15 11:23:00 Test Item Value Reference Range Interpretation Comments Phosphorus (test code = Phosphorus) 4.5 2.5-4.5 [place] [address]-10-15 11:23:00 Test Item Value Reference Range Interpretation Comments WBC (test code = WBC) 15.4 3.7-10.4 [place] [address]-10-15 11:23:00 Test Item Value Reference Range Interpretation Comments RBC (test code = RBC) 3.93 4.20-5.40 [place] [address]-10-15 11:23:00 Test Item Value Reference Range Interpretation Comments Hgb (test code = Hgb) 10.3 12.0-16.0 [facility] CenterSdofllqKZDIFRXXTZ1347-85-05 11:23:00 Test Item Value Reference Range Interpretation Comments Hct (test code = Hct) 31.8 36.0-48.0 [facility] CenterYyoasghJCERWTCLVA3546-36-08 11:23:00 Test Item Value Reference Range Interpretation Comments MCV (test code = MCV) 80.8 80.0-98.0 [facility] CenterYkizicgZVOIBDFQUG7093-62-12 11:23:00 Test Item Value Reference Range Interpretation Comments Hgb (test code = Hgb) 10.3 12.0-16.0 [facility] CenterNsuazqyIQPOEAXSOU0229-06-93 11:23:00 Test Item Value Reference Range Interpretation Comments MCH (test code = MCH) 26.1 pg 27.0-31.0 [facility] CenterUrufzezBKKMAAYITM9980-81-44 11:23:00 Test Item Value Reference Range Interpretation Comments MCHC (test code = MCHC) 32.3 32.0-36.0 [facility] CenterLoeppnoEYFKMERXRL1174-14-44 11:23:00 Test Item Value Reference Range Interpretation Comments RDW (test code = RDW) 16.4 11.5-14.5 [facility] CenterQrlbpkoLGGBMNQBON1044-32-74 11:23:00 Test Item Value Reference Range Interpretation Comments Platelet (test code = Platelet) 342 133-450 [facility] CenterQjralkfTNXDXLMDYN1666-34-52 11:23:00 Test Item Value Reference Range Interpretation Comments MPV (test code = MPV) 8.1 7.4-10.4 [facility] CenterAfejltrDSHEBPDPMC3449-57-89 11:23:00 Test Item Value Reference Range Interpretation Comments Segs (test code = Segs) 82.0 45.0-75.0 [facility] CenterPlnfdsaYJENRRRWEI5411-69-42 11:23:00 Test Item Value Reference Range Interpretation Comments Lymphocytes (test code = Lymphocytes) 8.9 20.0-40.0 [place] 439852-10-15 11:23:00 Test Item Value Reference Range Interpretation Comments Monocytes (test code = Monocytes) 6.0 2.0-12.0 [place] 439852-10-15 11:23:00 Test Item Value Reference Range Interpretation Comments Eosinophils (test code = 2.8 See_Comment [A utomated message] The Eosinophils) system which ge nerated this result tra nsmitted reference range : <=4.0. The reference r quynh was not used to int erpret this result as normal/abnormal . [facility] CenterSgmqyyaEMGJSLAKOC2802-64-87 11:23:00 Test Item Value Reference Range Interpretation Comments Basophils (test code = 0.3 See_Comment [Aut omated message] The Basophils) system which ge nerated this result tra nsmitted reference range : <=1.0. The reference r quynh was not used to int erpret this result as normal/abnormal . [place] 439852-10-15 11:23:00 Test Item Value Reference Range Interpretation Comments Hct (test code = Hct) 31.8 36.0-48.0 [place] 439852-10-15 11:23:00 Test Item Value Reference Range Interpretation Comments Neutrophils # (test code = Neutrophils 12.7 1.5-8.1 #) [place] 439852-10-15 11:23:00 Test Item Value Reference Range Interpretation Comments Lymphocytes # (test code = Lymphocytes 1.4 1.0-5.5 #) [facility] CenterUzukbazRCRZFUIBJV9277-93-10 11:23:00 Test Item Value Reference Range Interpretation Comments Monocytes # (test code 0.9 See_Comment [Aut omated message] The = Monocytes #) system which generated this result tra nsmitted reference range : <=0.8. The reference r quynh was not used to int erpret this result as normal/abnormal . [facility] CenterDyjwyuzQJNCNGEIYS6612-10-36 11:23:00 Test Item Value Reference Range Interpretation Comments Eosinophils # (test code 0.4 See_Comment [A utomated message] The = Eosinophils #) system whic h generated this result tra nsmitted reference range : <=0.5. The reference r quynh was not used to int erpret this result as normal/abnormal . [place] 439852-10-15 11:23:00 Test Item Value Reference Range Interpretation Comments MCV (test code = MCV) 80.8 80.0-98.0 [place] 439852-10-15 11:23:00 Test Item Value Reference Range Interpretation Comments MCH (test code = MCH) 26.1 pg 27.0-31.0 [facility] CenterTtqyjtiQMYLAGTEMA9361-83-60 11:23:00 Test Item Value Reference Range Interpretation Comments MCHC (test code = MCHC) 32.3 32.0-36.0 [facility] CenterHrcialtOPESOKUODI2421-70-81 11:23:00 Test Item Value Reference Range Interpretation Comments RDW (test code = RDW) 16.4 11.5-14.5 [facility] CenterKxzgdpkBFFYOLUKMH9932-00-55 11:23:00 Test Item Value Reference Range Interpretation Comments Platelet (test code = Platelet) 342 133-450 [facility] CenterCydlwqzPTLJAWTCUV0889-95-01 11:23:00 Test Item Value Reference Range Interpretation Comments MPV (test code = MPV) 8.1 7.4-10.4 [place] [address]-10-15 11:23:00 Test Item Value Reference Range Interpretation Comments Segs (test code = Segs) 82.0 45.0-75.0 [place] 439852-10-15 11:23:00 Test Item Value Reference Range Interpretation Comments Lymphocytes (test code = Lymphocytes) 8.9 20.0-40.0 [facility] CenterEiasddiWFQSSRDLVA5360-01-22 11:23:00 Test Item Value Reference Range Interpretation Comments Monocytes (test code = Monocytes) 6.0 2.0-12.0 [facility] CenterAwdvzjhNVQPBGHKKC8756-38-66 11:23:00 Test Item Value Reference Range Interpretation Comments Eosinophils (test code = 2.8 See_Comment [A utomated message] The Eosinophils) system which ge nerated this result tra nsmitted reference range : <=4.0. The reference r quynh was not used to int erpret this result as normal/abnormal . [facility] CenterUtlmnfdIZUJLVSENK9239-25-27 11:23:00 Test Item Value Reference Range Interpretation Comments Basophils (test code = 0.3 See_Comment [Aut omated message] The Basophils) system which ge nerated this result tra nsmitted reference range : <=1.0. The reference r quynh was not used to int erpret this result as normal/abnormal . [place] 439852-10-15 11:23:00 Test Item Value Reference Range Interpretation Comments Neutrophils # (test code = Neutrophils 12.7 1.5-8.1 #) [place] [address]-10-15 11:23:00 Test Item Value Reference Range Interpretation Comments Lymphocytes # (test code = Lymphocytes 1.4 1.0-5.5 #) [place] [address]-10-15 11:23:00 Test Item Value Reference Range Interpretation Comments Monocytes # (test code 0.9 See_Comment [Aut omated message] The = Monocytes #) system which generated this result tra nsmitted reference range : <=0.8. The reference r quynh was not used to int erpret this result as normal/abnormal . [place] [address]-10-15 11:23:00 Test Item Value Reference Range Interpretation Comments Eosinophils # (test code 0.4 See_Comment [A utomated message] The = Eosinophils #) system whic h generated this result tra nsmitted reference range : <=0.5. The reference r quynh was not used to int erpret this result as normal/abnormal . [place] 786342-10-15 11:23:00 Test Item Value Reference Range Interpretation Comments Glucose Lvl (test code = Glucose Lvl) 96 70-99 [place] [address]-10-15 11:23:00 Test Item Value Reference Range Interpretation Comments BUN (test code = BUN) 13 7-22 [place] [address]-10-15 11:23:00 Test Item Value Reference Range Interpretation Comments Creatinine Lvl (test code = Creatinine 0.57 0.50-1.40 Lvl) [place] [address]-10-15 11:23:00 Test Item Value Reference Range Interpretation Comments Sodium Lvl (test code = Sodium Lvl) 137 135-145 [place] [address]-10-15 11:23:00 Test Item Value Reference Range Interpretation Comments Potassium Lvl (test code = Potassium 3.6 3.5-5.1 Lvl) [place] [address]-10-15 11:23:00 Test Item Value Reference Range Interpretation Comments Chloride Lvl (test code = Chloride Lvl) 100 95-109 [place] [address]-10-15 11:23:00 Test Item Value Reference Range Interpretation Comments CO2 (test code = CO2) 30 24-32 [place] [address]-10-15 11:23:00 Test Item Value Reference Range Interpretation Comments Calcium Lvl (test code = Calcium Lvl) 9.2 8.5-10.5 [place] 786342-10-15 11:23:00 Test Item Value Reference Range Interpretation Comments AGAP (test code = AGAP) 10.6 10.0-20.0 [place] [address]-10-15 11:23:00 Test Item Value Reference Range Interpretation Comments eGFR (test code = eGFR) 109 [place] 786342-10-15 11:23:00 Test Item Value Reference Range Interpretation Comments Magnesium Lvl (test code = Magnesium 2.1 1.8-2.4 Lvl) [place] 786342-10-15 11:23:00 Test Item Value Reference Range Interpretation Comments Phosphorus (test code = Phosphorus) 4.5 2.5-4.5 [place] 439852-10-15 11:23:00 Test Item Value Reference Range Interpretation Comments WBC (test code = WBC) 15.4 3.7-10.4 [place] 439852-10-15 11:23:00 Test Item Value Reference Range Interpretation Comments RBC (test code = RBC) 3.93 4.20-5.40 [place] [address]-10-15 11:23:00 Test Item Value Reference Range Interpretation Comments Hgb (test code = Hgb) 10.3 12.0-16.0 [place] [address]-10-15 11:23:00 Test Item Value Reference Range Interpretation Comments Hct (test code = Hct) 31.8 36.0-48.0 [place] [address]-10-15 11:23:00 Test Item Value Reference Range Interpretation Comments MCV (test code = MCV) 80.8 80.0-98.0 [place] [address]-10-15 11:23:00 Test Item Value Reference Range Interpretation Comments MCH (test code = MCH) 26.1 pg 27.0-31.0 [place] [address]-10-15 11:23:00 Test Item Value Reference Range Interpretation Comments MCHC (test code = MCHC) 32.3 32.0-36.0 [place] [address]-10-15 11:23:00 Test Item Value Reference Range Interpretation Comments RDW (test code = RDW) 16.4 11.5-14.5 [place] 439852-10-15 11:23:00 Test Item Value Reference Range Interpretation Comments Platelet (test code = Platelet) 342 133-450 [place] [address]-10-15 11:23:00 Test Item Value Reference Range Interpretation Comments MPV (test code = MPV) 8.1 7.4-10.4 [place] 439852-10-15 11:23:00 Test Item Value Reference Range Interpretation Comments Segs (test code = Segs) 82.0 45.0-75.0 [place] [address]-10-15 11:23:00 Test Item Value Reference Range Interpretation Comments Lymphocytes (test code = Lymphocytes) 8.9 20.0-40.0 [place] [address]-10-15 11:23:00 Test Item Value Reference Range Interpretation Comments Monocytes (test code = Monocytes) 6.0 2.0-12.0 [place] [address]-10-15 11:23:00 Test Item Value Reference Range Interpretation Comments Eosinophils (test code = 2.8 See_Comment [A utomated message] The Eosinophils) system which ge nerated this result tra nsmitted reference range : <=4.0. The reference r quynh was not used to int erpret this result as normal/abnormal . [place] [address]-10-15 11:23:00 Test Item Value Reference Range Interpretation Comments Basophils (test code = 0.3 See_Comment [Aut omated message] The Basophils) system which ge nerated this result tra nsmitted reference range : <=1.0. The reference r quynh was not used to int erpret this result as normal/abnormal . [facility] CenterLunplqbZDOSBHQULE0760-27-98 11:23:00 Test Item Value Reference Range Interpretation Comments Neutrophils # (test code = Neutrophils 12.7 1.5-8.1 #) [place] [address]-10-15 11:23:00 Test Item Value Reference Range Interpretation Comments Lymphocytes # (test code = Lymphocytes 1.4 1.0-5.5 #) [place] [address]-10-15 11:23:00 Test Item Value Reference Range Interpretation Comments Monocytes # (test code 0.9 See_Comment [Aut omated message] The = Monocytes #) system which generated this result tra nsmitted reference range : <=0.8. The reference r quynh was not used to int erpret this result as normal/abnormal . [facility] CenterAptdujnQVBHDSNQCC4133-29-68 11:23:00 Test Item Value Reference Range Interpretation Comments Eosinophils # (test code 0.4 See_Comment [A utomated message] The = Eosinophils #) system [employer] h generated this result tra nsmitted reference range : <=0.5. The reference r quynh was not used to int erpret this result as normal/abnormal . [facility]2022-10-15 11:23:00 Test Item Value Reference Range Interpretation Comments Glucose Lvl (test code = Glucose Lvl) 96 70-99 [place] 786342-10-15 11:23:00 Test Item Value Reference Range Interpretation Comments BUN (test code = BUN) 13 7-22 [place] 786342-10-15 11:23:00 Test Item Value Reference Range Interpretation Comments Creatinine Lvl (test code = Creatinine 0.57 0.50-1.40 Lvl) [facility]2022-10-15 11:23:00 Test Item Value Reference Range Interpretation Comments Sodium Lvl (test code = Sodium Lvl) 137 135-145 [place] 786342-10-15 11:23:00 Test Item Value Reference Range Interpretation Comments Potassium Lvl (test code = Potassium 3.6 3.5-5.1 Lvl) [place] 786342-10-15 11:23:00 Test Item Value Reference Range Interpretation Comments Chloride Lvl (test code = Chloride Lvl) 100 95-109 [facility]2022-10-15 11:23:00 Test Item Value Reference Range Interpretation Comments CO2 (test code = CO2) 30 24-32 [place] 786342-10-15 11:23:00 Test Item Value Reference Range Interpretation Comments Calcium Lvl (test code = Calcium Lvl) 9.2 8.5-10.5 [place] 786342-10-15 11:23:00 Test Item Value Reference Range Interpretation Comments AGAP (test code = AGAP) 10.6 10.0-20.0 [place] 786342-10-15 11:23:00 Test Item Value Reference Range Interpretation Comments eGFR (test code = eGFR) 109 [place] 786342-10-15 11:23:00 Test Item Value Reference Range Interpretation Comments Magnesium Lvl (test code = Magnesium 2.1 1.8-2.4 Lvl) [place] 786342-10-15 11:23:00 Test Item Value Reference Range Interpretation Comments Phosphorus (test code = Phosphorus) 4.5 2.5-4.5 [place] [address]-10-15 11:23:00 Test Item Value Reference Range Interpretation Comments WBC (test code = WBC) 15.4 3.7-10.4 [place] [address]-10-15 11:23:00 Test Item Value Reference Range Interpretation Comments RBC (test code = RBC) 3.93 4.20-5.40 [place] [address]-10-15 11:23:00 Test Item Value Reference Range Interpretation Comments Hgb (test code = Hgb) 10.3 12.0-16.0 [place] [address]-10-15 11:23:00 Test Item Value Reference Range Interpretation Comments Hct (test code = Hct) 31.8 36.0-48.0 [place] [address]-10-15 11:23:00 Test Item Value Reference Range Interpretation Comments MCV (test code = MCV) 80.8 80.0-98.0 [place] [address]-10-15 11:23:00 Test Item Value Reference Range Interpretation Comments MCH (test code = MCH) 26.1 pg 27.0-31.0 [place] [address]-10-15 11:23:00 Test Item Value Reference Range Interpretation Comments MCHC (test code = MCHC) 32.3 32.0-36.0 [place] [address]-10-15 11:23:00 Test Item Value Reference Range Interpretation Comments RDW (test code = RDW) 16.4 11.5-14.5 [place] [address]-10-15 11:23:00 Test Item Value Reference Range Interpretation Comments Platelet (test code = Platelet) 342 133-450 [place] [address]-10-15 11:23:00 Test Item Value Reference Range Interpretation Comments MPV (test code = MPV) 8.1 7.4-10.4 [place] 439852-10-15 11:23:00 Test Item Value Reference Range Interpretation Comments Segs (test code = Segs) 82.0 45.0-75.0 [place] [address]-10-15 11:23:00 Test Item Value Reference Range Interpretation Comments Lymphocytes (test code = Lymphocytes) 8.9 20.0-40.0 [place] [address]-10-15 11:23:00 Test Item Value Reference Range Interpretation Comments Monocytes (test code = Monocytes) 6.0 2.0-12.0 [place] [address]-10-15 11:23:00 Test Item Value Reference Range Interpretation Comments Eosinophils (test code = 2.8 See_Comment [A utomated message] The Eosinophils) system which ge nerated this result tra nsmitted reference range : <=4.0. The reference r quynh was not used to int erpret this result as normal/abnormal . [place] [address]-10-15 11:23:00 Test Item Value Reference Range Interpretation Comments Basophils (test code = 0.3 See_Comment [Aut omated message] The Basophils) system which ge nerated this result tra nsmitted reference range : <=1.0. The reference r quynh was not used to int erpret this result as normal/abnormal . [place] [address]-10-15 11:23:00 Test Item Value Reference Range Interpretation Comments Neutrophils # (test code = Neutrophils 12.7 1.5-8.1 #) [place] [address]-10-15 11:23:00 Test Item Value Reference Range Interpretation Comments Lymphocytes # (test code = Lymphocytes 1.4 1.0-5.5 #) [place] [address]-10-15 11:23:00 Test Item Value Reference Range Interpretation Comments Monocytes # (test code 0.9 See_Comment [Aut omated message] The = Monocytes #) system which generated this result tra nsmitted reference range : <=0.8. The reference r quynh was not used to int erpret this result as normal/abnormal . [place] [address]-10-15 11:23:00 Test Item Value Reference Range Interpretation Comments Eosinophils # (test code 0.4 See_Comment [A utomated message] The = Eosinophils #) system [facility] h generated this result tra nsmitted reference range : <=0.5. The reference r quynh was not used to int erpret this result as normal/abnormal . [place] 786342-10-15 11:23:00 Test Item Value Reference Range Interpretation Comments Glucose Lvl (test code = Glucose Lvl) 96 70-99 [place] 786342-10-15 11:23:00 Test Item Value Reference Range Interpretation Comments BUN (test code = BUN) 13 7-22 [place] 786342-10-15 11:23:00 Test Item Value Reference Range Interpretation Comments Creatinine Lvl (test code = Creatinine 0.57 0.50-1.40 Lvl) [facility]2022-10-15 11:23:00 Test Item Value Reference Range Interpretation Comments Sodium Lvl (test code = Sodium Lvl) 137 135-145 [place] 786342-10-15 11:23:00 Test Item Value Reference Range Interpretation Comments Potassium Lvl (test code = Potassium 3.6 3.5-5.1 Lvl) [place] 786342-10-15 11:23:00 Test Item Value Reference Range Interpretation Comments Chloride Lvl (test code = Chloride Lvl) 100 95-109 [facility]2022-10-15 11:23:00 Test Item Value Reference Range Interpretation Comments CO2 (test code = CO2) 30 24-32 [place] 786342-10-15 11:23:00 Test Item Value Reference Range Interpretation Comments Calcium Lvl (test code = Calcium Lvl) 9.2 8.5-10.5 [place] 786342-10-15 11:23:00 Test Item Value Reference Range Interpretation Comments AGAP (test code = AGAP) 10.6 10.0-20.0 [place] 786342-10-15 11:23:00 Test Item Value Reference Range Interpretation Comments eGFR (test code = eGFR) 109 [facility]2022-10-15 11:23:00 Test Item Value Reference Range Interpretation Comments Magnesium Lvl (test code = Magnesium 2.1 1.8-2.4 Lvl) [place] 786342-10-15 11:23:00 Test Item Value Reference Range Interpretation Comments Phosphorus (test code = Phosphorus) 4.5 2.5-4.5 [facility]FB2417-[facility]80 11:23:00 Test Item Value Reference Range Interpretation Comments WBC (test code = WBC) 15.4 3.7-10.4 [facility] CenterLvvrlybGUJHLNLKWY1364-57-74 11:23:00 Test Item Value Reference Range Interpretation Comments RBC (test code = RBC) 3.93 4.20-5.40 [facility] CenterEruotlqXRQMJYTLBS1750-82-89 11:23:00 Test Item Value Reference Range Interpretation Comments Hgb (test code = Hgb) 10.3 12.0-16.0 [facility] CenterJqasrbjEQDFHSBEFR6289-52-12 11:23:00 Test Item Value Reference Range Interpretation Comments Hct (test code = Hct) 31.8 36.0-48.0 [facility] CenterYpxdnfsCFVLBQMNXV7436-79-74 11:23:00 Test Item Value Reference Range Interpretation Comments MCV (test code = MCV) 80.8 80.0-98.0 [facility] CenterSbshhihFNTKKRRRBT6779-23-85 11:23:00 Test Item Value Reference Range Interpretation Comments MCH (test code = MCH) 26.1 pg 27.0-31.0 [facility] CenterAqanqwtEDTTULCOUL0340-97-91 11:23:00 Test Item Value Reference Range Interpretation Comments MCHC (test code = MCHC) 32.3 32.0-36.0 [facility] CenterHykougbUXCLHRBRAY3044-97-12 11:23:00 Test Item Value Reference Range Interpretation Comments RDW (test code = RDW) 16.4 11.5-14.5 [facility] CenterHzkltjeLKAULXZLUQ7621-44-34 11:23:00 Test Item Value Reference Range Interpretation Comments Platelet (test code = Platelet) 342 133-450 [facility] CenterYivryxaMYTSIYRAUN2004-99-58 11:23:00 Test Item Value Reference Range Interpretation Comments MPV (test code = MPV) 8.1 7.4-10.4 [facility] CenterOuxqyadOEUBACQVRJ5922-09-72 11:23:00 Test Item Value Reference Range Interpretation Comments Segs (test code = Segs) 82.0 45.0-75.0 [facility] CenterTnpsmznJGFMAQEOQT8199-49-23 11:23:00 Test Item Value Reference Range Interpretation Comments Lymphocytes (test code = Lymphocytes) 8.9 20.0-40.0 [facility] CenterYqnhaskVVQOSFLNOE7288-29-80 11:23:00 Test Item Value Reference Range Interpretation Comments Monocytes (test code = Monocytes) 6.0 2.0-12.0 [place] 439852-10-15 11:23:00 Test Item Value Reference Range Interpretation Comments Eosinophils (test code = 2.8 See_Comment [A utomated message] The Eosinophils) system which ge nerated this result tra nsmitted reference range : <=4.0. The reference r quynh was not used to int erpret this result as normal/abnormal . [facility] CenterWrhjywxMJJTCUYDWT6021-90-50 11:23:00 Test Item Value Reference Range Interpretation Comments Basophils (test code = 0.3 See_Comment [Aut omated message] The Basophils) system which ge nerated this result tra nsmitted reference range : <=1.0. The reference r quynh was not used to int erpret this result as normal/abnormal . [place] 439852-10-15 11:23:00 Test Item Value Reference Range Interpretation Comments Neutrophils # (test code = Neutrophils 12.7 1.5-8.1 #) [place] 439852-10-15 11:23:00 Test Item Value Reference Range Interpretation Comments Lymphocytes # (test code = Lymphocytes 1.4 1.0-5.5 #) [place] 439852-10-15 11:23:00 Test Item Value Reference Range Interpretation Comments Monocytes # (test code 0.9 See_Comment [Aut omated message] The = Monocytes #) system which generated this result tra nsmitted reference range : <=0.8. The reference r quynh was not used to int erpret this result as normal/abnormal . [facility] CenterLvrmrvyCLNCAHRFQY3232-16-08 11:23:00 Test Item Value Reference Range Interpretation Comments Eosinophils # (test code 0.4 See_Comment [A utomated message] The = Eosinophils #) system whic h generated this result tra nsmitted reference range : <=0.5. The reference r quynh was not used to int erpret this result as normal/abnormal . [facility]ImmunGene BOXNA6278-27-19 11:23:00 Test Item Value Reference Range Interpretation Comments Glucose Lvl (test code = Glucose Lvl) 96 70-99 [facility] RKHNV0075-10-58 11:23:00 Test Item Value Reference Range Interpretation Comments BUN (test code = BUN) 13 7-22 [place] 786342-10-15 11:23:00 Test Item Value Reference Range Interpretation Comments Creatinine Lvl (test code = Creatinine 0.57 0.50-1.40 Lvl) [place] 786342-10-15 11:23:00 Test Item Value Reference Range Interpretation Comments Sodium Lvl (test code = Sodium Lvl) 137 135-145 [place] 786342-10-15 11:23:00 Test Item Value Reference Range Interpretation Comments Potassium Lvl (test code = Potassium 3.6 3.5-5.1 Lvl) [place] 786342-10-15 11:23:00 Test Item Value Reference Range Interpretation Comments Chloride Lvl (test code = Chloride Lvl) 100 95-109 [place] 786342-10-15 11:23:00 Test Item Value Reference Range Interpretation Comments CO2 (test code = CO2) 30 24-32 [place] 786342-10-15 11:23:00 Test Item Value Reference Range Interpretation Comments Calcium Lvl (test code = Calcium Lvl) 9.2 8.5-10.5 [place] 786342-10-15 11:23:00 Test Item Value Reference Range Interpretation Comments AGAP (test code = AGAP) 10.6 10.0-20.0 [place] 786342-10-15 11:23:00 Test Item Value Reference Range Interpretation Comments eGFR (test code = eGFR) 109 [place] 786342-10-15 11:23:00 Test Item Value Reference Range Interpretation Comments Magnesium Lvl (test code = Magnesium 2.1 1.8-2.4 Lvl) [place] 786342-10-15 11:23:00 Test Item Value Reference Range Interpretation Comments Phosphorus (test code = Phosphorus) 4.5 2.5-4.5 [place] [address]-10-15 11:23:00 Test Item Value Reference Range Interpretation Comments WBC (test code = WBC) 15.4 3.7-10.4 [place] 439852-10-15 11:23:00 Test Item Value Reference Range Interpretation Comments RBC (test code = RBC) 3.93 4.20-5.40 [place] 439852-10-15 11:23:00 Test Item Value Reference Range Interpretation Comments Hgb (test code = Hgb) 10.3 12.0-16.0 [place] [address]-10-15 11:23:00 Test Item Value Reference Range Interpretation Comments Hct (test code = Hct) 31.8 36.0-48.0 [place] 439852-10-15 11:23:00 Test Item Value Reference Range Interpretation Comments MCV (test code = MCV) 80.8 80.0-98.0 [place] 439852-10-15 11:23:00 Test Item Value Reference Range Interpretation Comments MCH (test code = MCH) 26.1 pg 27.0-31.0 [place] 439852-10-15 11:23:00 Test Item Value Reference Range Interpretation Comments MCHC (test code = MCHC) 32.3 32.0-36.0 [place] 439852-10-15 11:23:00 Test Item Value Reference Range Interpretation Comments RDW (test code = RDW) 16.4 11.5-14.5 [place] 439852-10-15 11:23:00 Test Item Value Reference Range Interpretation Comments Platelet (test code = Platelet) 342 133-450 [facility] CenterDtpjhhnZBGKUNWWUG1762-21-60 11:23:00 Test Item Value Reference Range Interpretation Comments MPV (test code = MPV) 8.1 7.4-10.4 [place] [address]-10-15 11:23:00 Test Item Value Reference Range Interpretation Comments Segs (test code = Segs) 82.0 45.0-75.0 [place] 439852-10-15 11:23:00 Test Item Value Reference Range Interpretation Comments Lymphocytes (test code = Lymphocytes) 8.9 20.0-40.0 [place] [address]-10-15 11:23:00 Test Item Value Reference Range Interpretation Comments Monocytes (test code = Monocytes) 6.0 2.0-12.0 [place] [address]-10-15 11:23:00 Test Item Value Reference Range Interpretation Comments Eosinophils (test code = 2.8 See_Comment [A utomated message] The Eosinophils) system which ge nerated this result tra nsmitted reference range : <=4.0. The reference r quynh was not used to int erpret this result as normal/abnormal . [place] [address]-10-15 11:23:00 Test Item Value Reference Range Interpretation Comments Basophils (test code = 0.3 See_Comment [Aut omated message] The Basophils) system which ge nerated this result tra nsmitted reference range : <=1.0. The reference r quynh was not used to int erpret this result as normal/abnormal . [place] 439852-10-15 11:23:00 Test Item Value Reference Range Interpretation Comments Neutrophils # (test code = Neutrophils 12.7 1.5-8.1 #) [place] [address]-10-15 11:23:00 Test Item Value Reference Range Interpretation Comments Lymphocytes # (test code = Lymphocytes 1.4 1.0-5.5 #) [place] [address]-10-15 11:23:00 Test Item Value Reference Range Interpretation Comments Monocytes # (test code 0.9 See_Comment [Aut omated message] The = Monocytes #) system which generated this result tra nsmitted reference range : <=0.8. The reference r quynh was not used to int erpret this result as normal/abnormal . [place] [address]-10-15 11:23:00 Test Item Value Reference Range Interpretation Comments Eosinophils # (test code 0.4 See_Comment [A utomated message] The = Eosinophils #) system whic h generated this result tra nsmitted reference range : <=0.5. The reference r quynh was not used to int erpret this result as normal/abnormal . [facility]2022-10-15 11:23:00 Test Item Value Reference Range Interpretation Comments Glucose Lvl (test code = Glucose Lvl) 96 70-99 [place] [address]-10-15 11:23:00 Test Item Value Reference Range Interpretation Comments BUN (test code = BUN) 13 7-22 [place] 786342-10-15 11:23:00 Test Item Value Reference Range Interpretation Comments Creatinine Lvl (test code = Creatinine 0.57 0.50-1.40 Lvl) [place] 786342-10-15 11:23:00 Test Item Value Reference Range Interpretation Comments Sodium Lvl (test code = Sodium Lvl) 137 135-145 [facility] [id number] 11:23:00 Test Item Value Reference Range Interpretation Comments Potassium Lvl (test code = Potassium 3.6 3.5-5.1 Lvl) [place] 786342-10-15 11:23:00 Test Item Value Reference Range Interpretation Comments Chloride Lvl (test code = Chloride Lvl) 100 95-109 [place] 786342-10-15 11:23:00 Test Item Value Reference Range Interpretation Comments CO2 (test code = CO2) 30 24-32 [place] [address]-10-15 11:23:00 Test Item Value Reference Range Interpretation Comments Calcium Lvl (test code = Calcium Lvl) 9.2 8.5-10.5 [place] 786342-10-15 11:23:00 Test Item Value Reference Range Interpretation Comments AGAP (test code = AGAP) 10.6 10.0-20.0 [place] 786342-10-15 11:23:00 Test Item Value Reference Range Interpretation Comments eGFR (test code = eGFR) 109 [place] 786342-10-15 11:23:00 Test Item Value Reference Range Interpretation Comments Magnesium Lvl (test code = Magnesium 2.1 1.8-2.4 Lvl) [place] 786342-10-15 11:23:00 Test Item Value Reference Range Interpretation Comments Phosphorus (test code = Phosphorus) 4.5 2.5-4.5 [place] [address]-10-15 11:23:00 Test Item Value Reference Range Interpretation Comments WBC (test code = WBC) 15.4 3.7-10.4 [place] [address]-10-15 11:23:00 Test Item Value Reference Range Interpretation Comments RBC (test code = RBC) 3.93 4.20-5.40 [place] [address]-10-15 11:23:00 Test Item Value Reference Range Interpretation Comments Hgb (test code = Hgb) 10.3 12.0-16.0 [place] [address]-10-15 11:23:00 Test Item Value Reference Range Interpretation Comments Hct (test code = Hct) 31.8 36.0-48.0 [place] [address]-10-15 11:23:00 Test Item Value Reference Range Interpretation Comments MCV (test code = MCV) 80.8 80.0-98.0 [place] 439852-10-15 11:23:00 Test Item Value Reference Range Interpretation Comments MCH (test code = MCH) 26.1 pg 27.0-31.0 [place] 439852-10-15 11:23:00 Test Item Value Reference Range Interpretation Comments MCHC (test code = MCHC) 32.3 32.0-36.0 [place] 439852-10-15 11:23:00 Test Item Value Reference Range Interpretation Comments RDW (test code = RDW) 16.4 11.5-14.5 [place] 439852-10-15 11:23:00 Test Item Value Reference Range Interpretation Comments Platelet (test code = Platelet) 342 133-450 [facility] CenterEcgbwkoNUAJLHDENT7706-03-76 11:23:00 Test Item Value Reference Range Interpretation Comments MPV (test code = MPV) 8.1 7.4-10.4 [place] 439852-10-15 11:23:00 Test Item Value Reference Range Interpretation Comments Segs (test code = Segs) 82.0 45.0-75.0 [place] 439852-10-15 11:23:00 Test Item Value Reference Range Interpretation Comments Lymphocytes (test code = Lymphocytes) 8.9 20.0-40.0 [place] 439852-10-15 11:23:00 Test Item Value Reference Range Interpretation Comments Monocytes (test code = Monocytes) 6.0 2.0-12.0 [place] 439852-10-15 11:23:00 Test Item Value Reference Range Interpretation Comments Eosinophils (test code = 2.8 See_Comment [A utomated message] The Eosinophils) system which ge nerated this result tra nsmitted reference range : <=4.0. The reference r quynh was not used to int erpret this result as normal/abnormal . [place] [address]-10-15 11:23:00 Test Item Value Reference Range Interpretation Comments Basophils (test code = 0.3 See_Comment [Aut omated message] The Basophils) system which ge nerated this result tra nsmitted reference range : <=1.0. The reference r quynh was not used to int erpret this result as normal/abnormal . [place] 439852-10-15 11:23:00 Test Item Value Reference Range Interpretation Comments Neutrophils # (test code = Neutrophils 12.7 1.5-8.1 #) [place] [address]-10-15 11:23:00 Test Item Value Reference Range Interpretation Comments Lymphocytes # (test code = Lymphocytes 1.4 1.0-5.5 #) [place] [address]-10-15 11:23:00 Test Item Value Reference Range Interpretation Comments Monocytes # (test code 0.9 See_Comment [Aut omated message] The = Monocytes #) system which generated this result tra nsmitted reference range : <=0.8. The reference r quynh was not used to int erpret this result as normal/abnormal . [place] [address]-10-15 11:23:00 Test Item Value Reference Range Interpretation Comments Eosinophils # (test code 0.4 See_Comment [A utomated message] The = Eosinophils #) system whic h generated this result tra nsmitted reference range : <=0.5. The reference r quynh was not used to int erpret this result as normal/abnormal . [place] 786342-10-15 11:23:00 Test Item Value Reference Range Interpretation Comments Glucose Lvl (test code = Glucose Lvl) 96 70-99 [place] [address]-10-15 11:23:00 Test Item Value Reference Range Interpretation Comments BUN (test code = BUN) 13 7-22 [place] [address]-10-15 11:23:00 Test Item Value Reference Range Interpretation Comments Creatinine Lvl (test code = Creatinine 0.57 0.50-1.40 Lvl) [place] [address]-10-15 11:23:00 Test Item Value Reference Range Interpretation Comments Sodium Lvl (test code = Sodium Lvl) 137 135-145 [place] [address]-10-15 11:23:00 Test Item Value Reference Range Interpretation Comments Potassium Lvl (test code = Potassium 3.6 3.5-5.1 Lvl) [place] [address]-10-15 11:23:00 Test Item Value Reference Range Interpretation Comments Chloride Lvl (test code = Chloride Lvl) 100 95-109 [place] [address]-10-15 11:23:00 Test Item Value Reference Range Interpretation Comments CO2 (test code = CO2) 30 24-32 [place] 786342-10-15 11:23:00 Test Item Value Reference Range Interpretation Comments Calcium Lvl (test code = Calcium Lvl) 9.2 8.5-10.5 [place] 786342-10-15 11:23:00 Test Item Value Reference Range Interpretation Comments AGAP (test code = AGAP) 10.6 10.0-20.0 [place] 786342-10-15 11:23:00 Test Item Value Reference Range Interpretation Comments eGFR (test code = eGFR) 109 [place] 786342-10-15 11:23:00 Test Item Value Reference Range Interpretation Comments Magnesium Lvl (test code = Magnesium 2.1 1.8-2.4 Lvl) [place] 786342-10-15 11:23:00 Test Item Value Reference Range Interpretation Comments Phosphorus (test code = Phosphorus) 4.5 2.5-4.5 [facility] CenterLthexgeXGRUWDLCXH8794-54-92 11:23:00 Test Item Value Reference Range Interpretation Comments WBC (test code = WBC) 15.4 3.7-10.4 [place] 439852-10-15 11:23:00 Test Item Value Reference Range Interpretation Comments RBC (test code = RBC) 3.93 4.20-5.40 [place] 439852-10-15 11:23:00 Test Item Value Reference Range Interpretation Comments Hgb (test code = Hgb) 10.3 12.0-16.0 [place] 439852-10-15 11:23:00 Test Item Value Reference Range Interpretation Comments Hct (test code = Hct) 31.8 36.0-48.0 [place] [address]-10-15 11:23:00 Test Item Value Reference Range Interpretation Comments MCV (test code = MCV) 80.8 80.0-98.0 [place] [address]-10-15 11:23:00 Test Item Value Reference Range Interpretation Comments MCH (test code = MCH) 26.1 pg 27.0-31.0 [place] 439852-10-15 11:23:00 Test Item Value Reference Range Interpretation Comments MCHC (test code = MCHC) 32.3 32.0-36.0 [place] 439852-10-15 11:23:00 Test Item Value Reference Range Interpretation Comments RDW (test code = RDW) 16.4 11.5-14.5 [place] [address]-10-15 11:23:00 Test Item Value Reference Range Interpretation Comments Platelet (test code = Platelet) 342 133-450 [place] 439852-10-15 11:23:00 Test Item Value Reference Range Interpretation Comments MPV (test code = MPV) 8.1 7.4-10.4 [place] 439852-10-15 11:23:00 Test Item Value Reference Range Interpretation Comments Segs (test code = Segs) 82.0 45.0-75.0 [place] [address]-10-15 11:23:00 Test Item Value Reference Range Interpretation Comments Lymphocytes (test code = Lymphocytes) 8.9 20.0-40.0 [place] [address]-10-15 11:23:00 Test Item Value Reference Range Interpretation Comments Monocytes (test code = Monocytes) 6.0 2.0-12.0 [place] [address]-10-15 11:23:00 Test Item Value Reference Range Interpretation Comments Eosinophils (test code = 2.8 See_Comment [A utomated message] The Eosinophils) system which ge nerated this result tra nsmitted reference range : <=4.0. The reference r quynh was not used to int erpret this result as normal/abnormal . [facility] CenterRocrfbeQSQZRTYQMZ8067-09-21 11:23:00 Test Item Value Reference Range Interpretation Comments Basophils (test code = 0.3 See_Comment [Aut omated message] The Basophils) system which ge nerated this result tra nsmitted reference range : <=1.0. The reference r quynh was not used to int erpret this result as normal/abnormal . [place] 439852-10-15 11:23:00 Test Item Value Reference Range Interpretation Comments Neutrophils # (test code = Neutrophils 12.7 1.5-8.1 #) [place] [address]-10-15 11:23:00 Test Item Value Reference Range Interpretation Comments Lymphocytes # (test code = Lymphocytes 1.4 1.0-5.5 #) [place] [address]-10-15 11:23:00 Test Item Value Reference Range Interpretation Comments Monocytes # (test code 0.9 See_Comment [Aut omated message] The = Monocytes #) system which generated this result tra nsmitted reference range : <=0.8. The reference r quynh was not used to int erpret this result as normal/abnormal . [facility] CenterGtmgajkVOJLDCWWLX6024-92-62 11:23:00 Test Item Value Reference Range Interpretation Comments Eosinophils # (test code 0.4 See_Comment [A utomated message] The = Eosinophils #) system whic h generated this result tra nsmitted reference range : <=0.5. The reference r quynh was not used to int erpret this result as normal/abnormal . [facility] [id number] 11:23:00 Test Item Value Reference Range Interpretation Comments Glucose Lvl (test code = Glucose Lvl) 96 70-99 [facility] [id number] 11:23:00 Test Item Value Reference Range Interpretation Comments BUN (test code = BUN) 13 7-22 [facility] [id number] 11:23:00 Test Item Value Reference Range Interpretation Comments Creatinine Lvl (test code = Creatinine 0.57 0.50-1.40 Lvl) [facility] [id number] 11:23:00 Test Item Value Reference Range Interpretation Comments Sodium Lvl (test code = Sodium Lvl) 137 135-145 [place] [address]-10-15 11:23:00 Test Item Value Reference Range Interpretation Comments Potassium Lvl (test code = Potassium 3.6 3.5-5.1 Lvl) [facility] [id number] 11:23:00 Test Item Value Reference Range Interpretation Comments Chloride Lvl (test code = Chloride Lvl) 100 95-109 [facility] [id number] 11:23:00 Test Item Value Reference Range Interpretation Comments CO2 (test code = CO2) 30 24-32 [facility] [id number] 11:23:00 Test Item Value Reference Range Interpretation Comments Calcium Lvl (test code = Calcium Lvl) 9.2 8.5-10.5 [facility] [id number] 11:23:00 Test Item Value Reference Range Interpretation Comments AGAP (test code = AGAP) 10.6 10.0-20.0 [place] 786342-10-15 11:23:00 Test Item Value Reference Range Interpretation Comments eGFR (test code = eGFR) 109 [facility]2022-10-15 11:23:00 Test Item Value Reference Range Interpretation Comments Magnesium Lvl (test code = Magnesium 2.1 1.8-2.4 Lvl) [place] 786342-10-15 11:23:00 Test Item Value Reference Range Interpretation Comments Phosphorus (test code = Phosphorus) 4.5 2.5-4.5 [place] [address]-10-15 11:23:00 Test Item Value Reference Range Interpretation Comments WBC (test code = WBC) 15.4 3.7-10.4 [place] 439852-10-15 11:23:00 Test Item Value Reference Range Interpretation Comments RBC (test code = RBC) 3.93 4.20-5.40 [place] 439852-10-15 11:23:00 Test Item Value Reference Range Interpretation Comments Hgb (test code = Hgb) 10.3 12.0-16.0 [place] [address]-10-15 11:23:00 Test Item Value Reference Range Interpretation Comments Hct (test code = Hct) 31.8 36.0-48.0 [place] 439852-10-15 11:23:00 Test Item Value Reference Range Interpretation Comments MCV (test code = MCV) 80.8 80.0-98.0 [place] [address]-10-15 11:23:00 Test Item Value Reference Range Interpretation Comments MCH (test code = MCH) 26.1 pg 27.0-31.0 [place] [address]-10-15 11:23:00 Test Item Value Reference Range Interpretation Comments MCHC (test code = MCHC) 32.3 32.0-36.0 [place] [address]-10-15 11:23:00 Test Item Value Reference Range Interpretation Comments RDW (test code = RDW) 16.4 11.5-14.5 [place] [address]-10-15 11:23:00 Test Item Value Reference Range Interpretation Comments Platelet (test code = Platelet) 342 133-450 [place] 439852-10-15 11:23:00 Test Item Value Reference Range Interpretation Comments MPV (test code = MPV) 8.1 7.4-10.4 [place] 439852-10-15 11:23:00 Test Item Value Reference Range Interpretation Comments Segs (test code = Segs) 82.0 45.0-75.0 [place] [address]-10-15 11:23:00 Test Item Value Reference Range Interpretation Comments Lymphocytes (test code = Lymphocytes) 8.9 20.0-40.0 [place] [address]-10-15 11:23:00 Test Item Value Reference Range Interpretation Comments Monocytes (test code = Monocytes) 6.0 2.0-12.0 [place] [address]-10-15 11:23:00 Test Item Value Reference Range Interpretation Comments Eosinophils (test code = 2.8 See_Comment [A utomated message] The Eosinophils) system which ge nerated this result tra nsmitted reference range : <=4.0. The reference r quynh was not used to int erpret this result as normal/abnormal . [place] [address]-10-15 11:23:00 Test Item Value Reference Range Interpretation Comments Basophils (test code = 0.3 See_Comment [Aut omated message] The Basophils) system which ge nerated this result tra nsmitted reference range : <=1.0. The reference r quynh was not used to int erpret this result as normal/abnormal . [place] 439852-10-15 11:23:00 Test Item Value Reference Range Interpretation Comments Neutrophils # (test code = Neutrophils 12.7 1.5-8.1 #) [place] 439852-10-15 11:23:00 Test Item Value Reference Range Interpretation Comments Lymphocytes # (test code = Lymphocytes 1.4 1.0-5.5 #) [place] [address]-10-15 11:23:00 Test Item Value Reference Range Interpretation Comments Monocytes # (test code 0.9 See_Comment [Aut omated message] The = Monocytes #) system which generated this result tra nsmitted reference range : <=0.8. The reference r quynh was not used to int erpret this result as normal/abnormal . [place] 439852-10-15 11:23:00 Test Item Value Reference Range Interpretation Comments Eosinophils # (test code 0.4 See_Comment [A utomated message] The = Eosinophils #) system [employer] h generated this result tra nsmitted reference range : <=0.5. The reference r quynh was not used to int erpret this result as normal/abnormal . [facility]2022-10-15 11:23:00 Test Item Value Reference Range Interpretation Comments Glucose Lvl (test code = Glucose Lvl) 96 70-99 [facility]2022-10-15 11:23:00 Test Item Value Reference Range Interpretation Comments BUN (test code = BUN) 13 7-22 [place] 786342-10-15 11:23:00 Test Item Value Reference Range Interpretation Comments Creatinine Lvl (test code = Creatinine 0.57 0.50-1.40 Lvl) [facility]2022-10-15 11:23:00 Test Item Value Reference Range Interpretation Comments Sodium Lvl (test code = Sodium Lvl) 137 135-145 [facility]2022-10-15 11:23:00 Test Item Value Reference Range Interpretation Comments Potassium Lvl (test code = Potassium 3.6 3.5-5.1 Lvl) [place] 786342-10-15 11:23:00 Test Item Value Reference Range Interpretation Comments Chloride Lvl (test code = Chloride Lvl) 100 95-109 [facility]2022-10-15 11:23:00 Test Item Value Reference Range Interpretation Comments CO2 (test code = CO2) 30 24-32 [place] 786342-10-15 11:23:00 Test Item Value Reference Range Interpretation Comments Calcium Lvl (test code = Calcium Lvl) 9.2 8.5-10.5 [place] [address]-10-15 11:23:00 Test Item Value Reference Range Interpretation Comments AGAP (test code = AGAP) 10.6 10.0-20.0 [place] 786342-10-15 11:23:00 Test Item Value Reference Range Interpretation Comments eGFR (test code = eGFR) 109 [place] 786342-10-15 11:23:00 Test Item Value Reference Range Interpretation Comments Magnesium Lvl (test code = Magnesium 2.1 1.8-2.4 Lvl) [place] 786342-10-15 11:23:00 Test Item Value Reference Range Interpretation Comments Phosphorus (test code = Phosphorus) 4.5 2.5-4.5 [facility] CenterMiqskabDKSDMKHNPQ6022-95-59 11:23:00 Test Item Value Reference Range Interpretation Comments WBC (test code = WBC) 15.4 3.7-10.4 [facility] CenterOccnwijMULNVFBDPP0318-88-54 11:23:00 Test Item Value Reference Range Interpretation Comments RBC (test code = RBC) 3.93 4.20-5.40 [facility] CenterPxjvfubDKDWAVDFBP7947-47-48 11:23:00 Test Item Value Reference Range Interpretation Comments Hgb (test code = Hgb) 10.3 12.0-16.0 [facility] CenterOrbpbsqGUOONIQBKJ3180-36-58 11:23:00 Test Item Value Reference Range Interpretation Comments Hct (test code = Hct) 31.8 36.0-48.0 [facility] CenterBwnkpjaGTDRRRZVVA5846-86-24 11:23:00 Test Item Value Reference Range Interpretation Comments MCV (test code = MCV) 80.8 80.0-98.0 [facility] CenterCepwgflBKKXSDKARV1774-34-95 11:23:00 Test Item Value Reference Range Interpretation Comments MCH (test code = MCH) 26.1 pg 27.0-31.0 [facility] CenterQjjnvvqBYSOZYGQCQ7991-12-79 11:23:00 Test Item Value Reference Range Interpretation Comments MCHC (test code = MCHC) 32.3 32.0-36.0 [facility] CenterCoduxkfUNLSLLOCKF2939-57-74 11:23:00 Test Item Value Reference Range Interpretation Comments RDW (test code = RDW) 16.4 11.5-14.5 [facility] CenterWinljcqFTOZHHXMCD4040-32-92 11:23:00 Test Item Value Reference Range Interpretation Comments Platelet (test code = Platelet) 342 133-450 [facility] CenterJmtqlkwGBNHTFXEEF1700-00-81 11:23:00 Test Item Value Reference Range Interpretation Comments MPV (test code = MPV) 8.1 7.4-10.4 [facility] CenterNwhxizyGGUGGTKHVN3082-37-61 11:23:00 Test Item Value Reference Range Interpretation Comments Segs (test code = Segs) 82.0 45.0-75.0 [facility] CenterWurshjpATXWWFZRIG9921-71-57 11:23:00 Test Item Value Reference Range Interpretation Comments Lymphocytes (test code = Lymphocytes) 8.9 20.0-40.0 [place] 439852-10-15 11:23:00 Test Item Value Reference Range Interpretation Comments Monocytes (test code = Monocytes) 6.0 2.0-12.0 [place] 439852-10-15 11:23:00 Test Item Value Reference Range Interpretation Comments Eosinophils (test code = 2.8 See_Comment [A utomated message] The Eosinophils) system which ge nerated this result tra nsmitted reference range : <=4.0. The reference r quynh was not used to int erpret this result as normal/abnormal . [place] [address]-10-15 11:23:00 Test Item Value Reference Range Interpretation Comments Basophils (test code = 0.3 See_Comment [Aut omated message] The Basophils) system which ge nerated this result tra nsmitted reference range : <=1.0. The reference r quynh was not used to int erpret this result as normal/abnormal . [place] 439852-10-15 11:23:00 Test Item Value Reference Range Interpretation Comments Neutrophils # (test code = Neutrophils 12.7 1.5-8.1 #) [place] 439852-10-15 11:23:00 Test Item Value Reference Range Interpretation Comments Lymphocytes # (test code = Lymphocytes 1.4 1.0-5.5 #) [place] 439852-10-15 11:23:00 Test Item Value Reference Range Interpretation Comments Monocytes # (test code 0.9 See_Comment [Aut omated message] The = Monocytes #) system which generated this result tra nsmitted reference range : <=0.8. The reference r quynh was not used to int erpret this result as normal/abnormal . [place] [address]-10-15 11:23:00 Test Item Value Reference Range Interpretation Comments Eosinophils # (test code 0.4 See_Comment [A utomated message] The = Eosinophils #) system whic h generated this result tra nsmitted reference range : <=0.5. The reference r quynh was not used to int erpret this result as normal/abnormal . [facility]2022-10-15 11:23:00 Test Item Value Reference Range Interpretation Comments Glucose Lvl (test code = Glucose Lvl) 96 70-99 [place] 786342-10-15 11:23:00 Test Item Value Reference Range Interpretation Comments BUN (test code = BUN) 13 7-22 [place] 786342-10-15 11:23:00 Test Item Value Reference Range Interpretation Comments Creatinine Lvl (test code = Creatinine 0.57 0.50-1.40 Lvl) [place] 786342-10-15 11:23:00 Test Item Value Reference Range Interpretation Comments Sodium Lvl (test code = Sodium Lvl) 137 135-145 [place] 786342-10-15 11:23:00 Test Item Value Reference Range Interpretation Comments Potassium Lvl (test code = Potassium 3.6 3.5-5.1 Lvl) [place] 786342-10-15 11:23:00 Test Item Value Reference Range Interpretation Comments Chloride Lvl (test code = Chloride Lvl) 100 95-109 [place] 786342-10-15 11:23:00 Test Item Value Reference Range Interpretation Comments CO2 (test code = CO2) 30 24-32 [place] 786342-10-15 11:23:00 Test Item Value Reference Range Interpretation Comments Calcium Lvl (test code = Calcium Lvl) 9.2 8.5-10.5 [place] 786342-10-15 11:23:00 Test Item Value Reference Range Interpretation Comments AGAP (test code = AGAP) 10.6 10.0-20.0 [place] 786342-10-15 11:23:00 Test Item Value Reference Range Interpretation Comments eGFR (test code = eGFR) 109 [place] 786342-10-15 11:23:00 Test Item Value Reference Range Interpretation Comments Magnesium Lvl (test code = Magnesium 2.1 1.8-2.4 Lvl) [place] 786342-10-15 11:23:00 Test Item Value Reference Range Interpretation Comments Phosphorus (test code = Phosphorus) 4.5 2.5-4.5 [place] 439852-10-15 11:23:00 Test Item Value Reference Range Interpretation Comments WBC (test code = WBC) 15.4 3.7-10.4 [place] 439852-10-15 11:23:00 Test Item Value Reference Range Interpretation Comments RBC (test code = RBC) 3.93 4.20-5.40 [place] [address]-10-15 11:23:00 Test Item Value Reference Range Interpretation Comments Hgb (test code = Hgb) 10.3 12.0-16.0 [place] [address]-10-15 11:23:00 Test Item Value Reference Range Interpretation Comments Hct (test code = Hct) 31.8 36.0-48.0 [place] 439852-10-15 11:23:00 Test Item Value Reference Range Interpretation Comments MCV (test code = MCV) 80.8 80.0-98.0 [place] [address]-10-15 11:23:00 Test Item Value Reference Range Interpretation Comments MCH (test code = MCH) 26.1 pg 27.0-31.0 [place] 439852-10-15 11:23:00 Test Item Value Reference Range Interpretation Comments MCHC (test code = MCHC) 32.3 32.0-36.0 [place] 439852-10-15 11:23:00 Test Item Value Reference Range Interpretation Comments RDW (test code = RDW) 16.4 11.5-14.5 [place] [address]-10-15 11:23:00 Test Item Value Reference Range Interpretation Comments Platelet (test code = Platelet) 342 133-450 [facility] CenterQuyxgpiIPFBYAOAZA2526-20-36 11:23:00 Test Item Value Reference Range Interpretation Comments MPV (test code = MPV) 8.1 7.4-10.4 [place] [address]-10-15 11:23:00 Test Item Value Reference Range Interpretation Comments Segs (test code = Segs) 82.0 45.0-75.0 [place] [address]-10-15 11:23:00 Test Item Value Reference Range Interpretation Comments Lymphocytes (test code = Lymphocytes) 8.9 20.0-40.0 [place] [address]-10-15 11:23:00 Test Item Value Reference Range Interpretation Comments Monocytes (test code = Monocytes) 6.0 2.0-12.0 [place] [address]-10-15 11:23:00 Test Item Value Reference Range Interpretation Comments Eosinophils (test code = 2.8 See_Comment [A utomated message] The Eosinophils) system which ge nerated this result tra nsmitted reference range : <=4.0. The reference r quynh was not used to int erpret this result as normal/abnormal . [place] [address]-10-15 11:23:00 Test Item Value Reference Range Interpretation Comments Basophils (test code = 0.3 See_Comment [Aut omated message] The Basophils) system which ge nerated this result tra nsmitted reference range : <=1.0. The reference r quynh was not used to int erpret this result as normal/abnormal . [place] 439852-10-15 11:23:00 Test Item Value Reference Range Interpretation Comments Neutrophils # (test code = Neutrophils 12.7 1.5-8.1 #) [place] [address]-10-15 11:23:00 Test Item Value Reference Range Interpretation Comments Lymphocytes # (test code = Lymphocytes 1.4 1.0-5.5 #) [place] 439852-10-15 11:23:00 Test Item Value Reference Range Interpretation Comments Monocytes # (test code 0.9 See_Comment [Aut omated message] The = Monocytes #) system which generated this result tra nsmitted reference range : <=0.8. The reference r quynh was not used to int erpret this result as normal/abnormal . [place] [address]-10-15 11:23:00 Test Item Value Reference Range Interpretation Comments Eosinophils # (test code 0.4 See_Comment [A utomated message] The = Eosinophils #) system whic h generated this result tra nsmitted reference range : <=0.5. The reference r quynh was not used to int erpret this result as normal/abnormal . [facility] [id number] 11:23:00 Test Item Value Reference Range Interpretation Comments Glucose Lvl (test code = Glucose Lvl) 96 70-99 [facility] [id number] 11:23:00 Test Item Value Reference Range Interpretation Comments BUN (test code = BUN) 13 7-22 [place] 786342-10-15 11:23:00 Test Item Value Reference Range Interpretation Comments Creatinine Lvl (test code = Creatinine 0.57 0.50-1.40 Lvl) [place] 786342-10-15 11:23:00 Test Item Value Reference Range Interpretation Comments Sodium Lvl (test code = Sodium Lvl) 137 135-145 [place] 786342-10-15 11:23:00 Test Item Value Reference Range Interpretation Comments Potassium Lvl (test code = Potassium 3.6 3.5-5.1 Lvl) [place] 786342-10-15 11:23:00 Test Item Value Reference Range Interpretation Comments Chloride Lvl (test code = Chloride Lvl) 100 95-109 [place] 786342-10-15 11:23:00 Test Item Value Reference Range Interpretation Comments CO2 (test code = CO2) 30 24-32 [place] 786342-10-15 11:23:00 Test Item Value Reference Range Interpretation Comments Calcium Lvl (test code = Calcium Lvl) 9.2 8.5-10.5 [place] 786342-10-15 11:23:00 Test Item Value Reference Range Interpretation Comments AGAP (test code = AGAP) 10.6 10.0-20.0 [place] 786342-10-15 11:23:00 Test Item Value Reference Range Interpretation Comments eGFR (test code = eGFR) 109 [place] 786342-10-15 11:23:00 Test Item Value Reference Range Interpretation Comments Magnesium Lvl (test code = Magnesium 2.1 1.8-2.4 Lvl) [place] 786342-10-15 11:23:00 Test Item Value Reference Range Interpretation Comments Phosphorus (test code = Phosphorus) 4.5 2.5-4.5 [facility]OUNKSXTJY9251[facility]83[facility]27 11:23:00 Test Item Value Reference Range Interpretation Comments WBC (test code = WBC) 15.4 3.7-10.4 [place] 786342-10-15 11:23:00 Test Item Value Reference Range Interpretation Comments Glucose Lvl (test code = Glucose Lvl) 96 70-99 [place] 786342-10-15 11:23:00 Test Item Value Reference Range Interpretation Comments BUN (test code = BUN) 13 7-22 [place] 786342-10-15 11:23:00 Test Item Value Reference Range Interpretation Comments Creatinine Lvl (test code = Creatinine 0.57 0.50-1.40 Lvl) [place] 786342-10-15 11:23:00 Test Item Value Reference Range Interpretation Comments Sodium Lvl (test code = Sodium Lvl) 137 135-145 [place] 786342-10-15 11:23:00 Test Item Value Reference Range Interpretation Comments Potassium Lvl (test code = Potassium 3.6 3.5-5.1 Lvl) [place] 786342-10-15 11:23:00 Test Item Value Reference Range Interpretation Comments Chloride Lvl (test code = Chloride Lvl) 100 95-109 [place] [address]-10-15 11:23:00 Test Item Value Reference Range Interpretation Comments CO2 (test code = CO2) 30 24-32 [place] [address]-10-15 11:23:00 Test Item Value Reference Range Interpretation Comments RBC (test code = RBC) 3.93 4.20-5.40 [place] 786342-10-15 11:23:00 Test Item Value Reference Range Interpretation Comments Calcium Lvl (test code = Calcium Lvl) 9.2 8.5-10.5 [place] 786342-10-15 11:23:00 Test Item Value Reference Range Interpretation Comments AGAP (test code = AGAP) 10.6 10.0-20.0 [place] [address]-10-15 11:23:00 Test Item Value Reference Range Interpretation Comments eGFR (test code = eGFR) 109 [place] 786342-10-15 11:23:00 Test Item Value Reference Range Interpretation Comments Magnesium Lvl (test code = Magnesium 2.1 1.8-2.4 Lvl) [place] 786342-10-15 11:23:00 Test Item Value Reference Range Interpretation Comments Phosphorus (test code = Phosphorus) 4.5 2.5-4.5 [place] [address]-10-15 11:23:00 Test Item Value Reference Range Interpretation Comments WBC (test code = WBC) 15.4 3.7-10.4 [place] [address]-10-15 11:23:00 Test Item Value Reference Range Interpretation Comments RBC (test code = RBC) 3.93 4.20-5.40 [place] 439852-10-15 11:23:00 Test Item Value Reference Range Interpretation Comments Hgb (test code = Hgb) 10.3 12.0-16.0 [place] 439852-10-15 11:23:00 Test Item Value Reference Range Interpretation Comments Hct (test code = Hct) 31.8 36.0-48.0 [place] 439852-10-15 11:23:00 Test Item Value Reference Range Interpretation Comments MCV (test code = MCV) 80.8 80.0-98.0 [place] 439852-10-15 11:23:00 Test Item Value Reference Range Interpretation Comments Hgb (test code = Hgb) 10.3 12.0-16.0 [place] [address]-10-15 11:23:00 Test Item Value Reference Range Interpretation Comments MCH (test code = MCH) 26.1 pg 27.0-31.0 [place] 439852-10-15 11:23:00 Test Item Value Reference Range Interpretation Comments MCHC (test code = MCHC) 32.3 32.0-36.0 [place] 439852-10-15 11:23:00 Test Item Value Reference Range Interpretation Comments RDW (test code = RDW) 16.4 11.5-14.5 [place] [address]-10-15 11:23:00 Test Item Value Reference Range Interpretation Comments Platelet (test code = Platelet) 342 133-450 [facility] CenterSwszdisIXKUDEWRZG3961-33-24 11:23:00 Test Item Value Reference Range Interpretation Comments MPV (test code = MPV) 8.1 7.4-10.4 [place] [address]-10-15 11:23:00 Test Item Value Reference Range Interpretation Comments Segs (test code = Segs) 82.0 45.0-75.0 [place] [address]-10-15 11:23:00 Test Item Value Reference Range Interpretation Comments Lymphocytes (test code = Lymphocytes) 8.9 20.0-40.0 [place] [address]-10-15 11:23:00 Test Item Value Reference Range Interpretation Comments Monocytes (test code = Monocytes) 6.0 2.0-12.0 [place] [address]-10-15 11:23:00 Test Item Value Reference Range Interpretation Comments Eosinophils (test code = 2.8 See_Comment [A utomated message] The Eosinophils) system which ge nerated this result tra nsmitted reference range : <=4.0. The reference r quynh was not used to int erpret this result as normal/abnormal . [facility] CenterAlwwaitDHMCPYHPOF2893-03-14 11:23:00 Test Item Value Reference Range Interpretation Comments Basophils (test code = 0.3 See_Comment [Aut omated message] The Basophils) system which ge nerated this result tra nsmitted reference range : <=1.0. The reference r quynh was not used to int erpret this result as normal/abnormal . [facility] CenterGnnyxkgSPQTFZVYQF7815-88-19 11:23:00 Test Item Value Reference Range Interpretation Comments Hct (test code = Hct) 31.8 36.0-48.0 [place] 439852-10-15 11:23:00 Test Item Value Reference Range Interpretation Comments Neutrophils # (test code = Neutrophils 12.7 1.5-8.1 #) [facility] CenterPmqupyqOIIFJTSQOZ1501-04-79 11:23:00 Test Item Value Reference Range Interpretation Comments Lymphocytes # (test code = Lymphocytes 1.4 1.0-5.5 #) [facility] CenterDnebtmmLTXCHMQCVB8747-86-25 11:23:00 Test Item Value Reference Range Interpretation Comments Monocytes # (test code 0.9 See_Comment [Aut omated message] The = Monocytes #) system which generated this result tra nsmitted reference range : <=0.8. The reference r quynh was not used to int erpret this result as normal/abnormal . [facility] CenterStrrjuyUEMQZBPWVL2280-21-00 11:23:00 Test Item Value Reference Range Interpretation Comments Eosinophils # (test code 0.4 See_Comment [A utomated message] The = Eosinophils #) system whic h generated this result tra nsmitted reference range : <=0.5. The reference r quynh was not used to int erpret this result as normal/abnormal . [facility] CenterQztnrmnRXVMOGWQHL7720-70-24 11:23:00 Test Item Value Reference Range Interpretation Comments MCV (test code = MCV) 80.8 80.0-98.0 [place] 439852-10-15 11:23:00 Test Item Value Reference Range Interpretation Comments MCH (test code = MCH) 26.1 pg 27.0-31.0 [place] [address]-10-15 11:23:00 Test Item Value Reference Range Interpretation Comments MCHC (test code = MCHC) 32.3 32.0-36.0 [place] [address]-10-15 11:23:00 Test Item Value Reference Range Interpretation Comments RDW (test code = RDW) 16.4 11.5-14.5 [place] [address]-10-15 11:23:00 Test Item Value Reference Range Interpretation Comments Platelet (test code = Platelet) 342 133-450 [place] 439852-10-15 11:23:00 Test Item Value Reference Range Interpretation Comments MPV (test code = MPV) 8.1 7.4-10.4 [place] [address]-10-15 11:23:00 Test Item Value Reference Range Interpretation Comments Segs (test code = Segs) 82.0 45.0-75.0 [place] [address]-10-15 11:23:00 Test Item Value Reference Range Interpretation Comments Lymphocytes (test code = Lymphocytes) 8.9 20.0-40.0 [place] [address]-10-15 11:23:00 Test Item Value Reference Range Interpretation Comments Monocytes (test code = Monocytes) 6.0 2.0-12.0 [place] [address]-10-15 11:23:00 Test Item Value Reference Range Interpretation Comments Eosinophils (test code = 2.8 See_Comment [A utomated message] The Eosinophils) system which ge nerated this result tra nsmitted reference range : <=4.0. The reference r quynh was not used to int erpret this result as normal/abnormal . [place] [address]-10-15 11:23:00 Test Item Value Reference Range Interpretation Comments Basophils (test code = 0.3 See_Comment [Aut omated message] The Basophils) system which ge nerated this result tra nsmitted reference range : <=1.0. The reference r quynh was not used to int erpret this result as normal/abnormal . [place] [address]-10-15 11:23:00 Test Item Value Reference Range Interpretation Comments Neutrophils # (test code = Neutrophils 12.7 1.5-8.1 #) [place] [address]-10-15 11:23:00 Test Item Value Reference Range Interpretation Comments Lymphocytes # (test code = Lymphocytes 1.4 1.0-5.5 #) [place] [address]-10-15 11:23:00 Test Item Value Reference Range Interpretation Comments Monocytes # (test code 0.9 See_Comment [Aut omated message] The = Monocytes #) system which generated this result tra nsmitted reference range : <=0.8. The reference r quynh was not used to int erpret this result as normal/abnormal . [place] [address]-10-15 11:23:00 Test Item Value Reference Range Interpretation Comments Eosinophils # (test code 0.4 See_Comment [A utomated message] The = Eosinophils #) system whic h generated this result tra nsmitted reference range : <=0.5. The reference r quynh was not used to int erpret this result as normal/abnormal . [place] [address]-10-15 11:23:00 Test Item Value Reference Range Interpretation Comments Glucose Lvl (test code = Glucose Lvl) 96 70-99 [place] [address]-10-15 11:23:00 Test Item Value Reference Range Interpretation Comments BUN (test code = BUN) 13 7-22 [place] [address]-10-15 11:23:00 Test Item Value Reference Range Interpretation Comments Creatinine Lvl (test code = Creatinine 0.57 0.50-1.40 Lvl) [place] [address]-10-15 11:23:00 Test Item Value Reference Range Interpretation Comments Sodium Lvl (test code = Sodium Lvl) 137 135-145 [place] [address]-10-15 11:23:00 Test Item Value Reference Range Interpretation Comments Potassium Lvl (test code = Potassium 3.6 3.5-5.1 Lvl) [place] [address]-10-15 11:23:00 Test Item Value Reference Range Interpretation Comments Chloride Lvl (test code = Chloride Lvl) 100 95-109 [place] [address]-10-15 11:23:00 Test Item Value Reference Range Interpretation Comments CO2 (test code = CO2) 30 24-32 [place] [address]-10-15 11:23:00 Test Item Value Reference Range Interpretation Comments Calcium Lvl (test code = Calcium Lvl) 9.2 8.5-10.5 [place] [address]-10-15 11:23:00 Test Item Value Reference Range Interpretation Comments AGAP (test code = AGAP) 10.6 10.0-20.0 [place] [address]-10-15 11:23:00 Test Item Value Reference Range Interpretation Comments eGFR (test code = eGFR) 109 [place] 786342-10-15 11:23:00 Test Item Value Reference Range Interpretation Comments Magnesium Lvl (test code = Magnesium 2.1 1.8-2.4 Lvl) [address]10-15 11:23:00 Test Item Value Reference Range Interpretation Comments Phosphorus (test code = Phosphorus) 4.5 2.5-4.5 [place] [address]-10-15 11:23:00 Test Item Value Reference Range Interpretation Comments WBC (test code = WBC) 15.4 3.7-10.4 [place] 439852-10-15 11:23:00 Test Item Value Reference Range Interpretation Comments RBC (test code = RBC) 3.93 4.20-5.40 [place] [address]-10-15 11:23:00 Test Item Value Reference Range Interpretation Comments Hgb (test code = Hgb) 10.3 12.0-16.0 [place] [address]-10-15 11:23:00 Test Item Value Reference Range Interpretation Comments Hct (test code = Hct) 31.8 36.0-48.0 [place] [address]-10-15 11:23:00 Test Item Value Reference Range Interpretation Comments MCV (test code = MCV) 80.8 80.0-98.0 [place] [address]-10-15 11:23:00 Test Item Value Reference Range Interpretation Comments MCH (test code = MCH) 26.1 pg 27.0-31.0 [place] [address]-10-15 11:23:00 Test Item Value Reference Range Interpretation Comments MCHC (test code = MCHC) 32.3 32.0-36.0 [place] [address]-10-15 11:23:00 Test Item Value Reference Range Interpretation Comments RDW (test code = RDW) 16.4 11.5-14.5 [place] [address]-10-15 11:23:00 Test Item Value Reference Range Interpretation Comments Platelet (test code = Platelet) 342 133-450 [place] 439852-10-15 11:23:00 Test Item Value Reference Range Interpretation Comments MPV (test code = MPV) 8.1 7.4-10.4 [place] [address]-10-15 11:23:00 Test Item Value Reference Range Interpretation Comments Segs (test code = Segs) 82.0 45.0-75.0 [place] 439852-10-15 11:23:00 Test Item Value Reference Range Interpretation Comments Lymphocytes (test code = Lymphocytes) 8.9 20.0-40.0 [place] 439852-10-15 11:23:00 Test Item Value Reference Range Interpretation Comments Monocytes (test code = Monocytes) 6.0 2.0-12.0 [place] 439852-10-15 11:23:00 Test Item Value Reference Range Interpretation Comments Eosinophils (test code = 2.8 See_Comment [A utomated message] The Eosinophils) system which ge nerated this result tra nsmitted reference range : <=4.0. The reference r quynh was not used to int erpret this result as normal/abnormal . [place] 439852-10-15 11:23:00 Test Item Value Reference Range Interpretation Comments Basophils (test code = 0.3 See_Comment [Aut omated message] The Basophils) system which ge nerated this result tra nsmitted reference range : <=1.0. The reference r quynh was not used to int erpret this result as normal/abnormal . [place] 439852-10-15 11:23:00 Test Item Value Reference Range Interpretation Comments Neutrophils # (test code = Neutrophils 12.7 1.5-8.1 #) [place] [address]-10-15 11:23:00 Test Item Value Reference Range Interpretation Comments Lymphocytes # (test code = Lymphocytes 1.4 1.0-5.5 #) [place] [address]-10-15 11:23:00 Test Item Value Reference Range Interpretation Comments Monocytes # (test code 0.9 See_Comment [Aut omated message] The = Monocytes #) system which generated this result tra nsmitted reference range : <=0.8. The reference r quynh was not used to int erpret this result as normal/abnormal . [facility] DallasOcuacckLIXMVULRZD0333-78-24 11:23:00 Test Item Value Reference Range Interpretation Comments Eosinophils # (test code 0.4 See_Comment [A utomated message] The = Eosinophils #) system whic h generated this result tra nsmitted reference range : <=0.5. The reference r quynh was not used to int erpret this result as normal/abnormal . [facility]2022-10-15 11:23:00 Test Item Value Reference Range Interpretation Comments Glucose Lvl (test code = Glucose Lvl) 96 70-99 [place] [address]-10-15 11:23:00 Test Item Value Reference Range Interpretation Comments BUN (test code = BUN) 13 7-22 [place] 786342-10-15 11:23:00 Test Item Value Reference Range Interpretation Comments Creatinine Lvl (test code = Creatinine 0.57 0.50-1.40 Lvl) [place] 786342-10-15 11:23:00 Test Item Value Reference Range Interpretation Comments Sodium Lvl (test code = Sodium Lvl) 137 135-145 [place] 786342-10-15 11:23:00 Test Item Value Reference Range Interpretation Comments Potassium Lvl (test code = Potassium 3.6 3.5-5.1 Lvl) [facility]2022-10-15 11:23:00 Test Item Value Reference Range Interpretation Comments Chloride Lvl (test code = Chloride Lvl) 100 95-109 [place] 786342-10-15 11:23:00 Test Item Value Reference Range Interpretation Comments CO2 (test code = CO2) 30 24-32 [place] [address]-10-15 11:23:00 Test Item Value Reference Range Interpretation Comments Calcium Lvl (test code = Calcium Lvl) 9.2 8.5-10.5 [place] 786342-10-15 11:23:00 Test Item Value Reference Range Interpretation Comments AGAP (test code = AGAP) 10.6 10.0-20.0 [place] 786342-10-15 11:23:00 Test Item Value Reference Range Interpretation Comments eGFR (test code = eGFR) 109 [place] 786342-10-15 11:23:00 Test Item Value Reference Range Interpretation Comments Magnesium Lvl (test code = Magnesium 2.1 1.8-2.4 Lvl) [facility]2022-10-15 11:23:00 Test Item Value Reference Range Interpretation Comments Phosphorus (test code = Phosphorus) 4.5 2.5-4.5 [facility] CenterRzaflatQHALDMDWVA7999-95-90 11:23:00 Test Item Value Reference Range Interpretation Comments WBC (test code = WBC) 15.4 3.7-10.4 [facility] CenterVvkmhupYHUDNPKKEV6319-95-38 11:23:00 Test Item Value Reference Range Interpretation Comments RBC (test code = RBC) 3.93 4.20-5.40 [facility] CenterZnfbgksSTROPACYSU4263-07-02 11:23:00 Test Item Value Reference Range Interpretation Comments Hgb (test code = Hgb) 10.3 12.0-16.0 [facility] CenterMvvjrvqUJDADIPSZQ6192-78-04 11:23:00 Test Item Value Reference Range Interpretation Comments Hct (test code = Hct) 31.8 36.0-48.0 [facility] CenterSitaothLORTMPLCSE8347-49-18 11:23:00 Test Item Value Reference Range Interpretation Comments MCV (test code = MCV) 80.8 80.0-98.0 [facility] CenterUsziewtZIXIWAOISY0397-75-25 11:23:00 Test Item Value Reference Range Interpretation Comments MCH (test code = MCH) 26.1 pg 27.0-31.0 [facility] CenterHdlwccnQKUOKZUOZS5824-69-18 11:23:00 Test Item Value Reference Range Interpretation Comments MCHC (test code = MCHC) 32.3 32.0-36.0 [facility] CenterPxznarhZRZNFMDWKH2700-06-13 11:23:00 Test Item Value Reference Range Interpretation Comments RDW (test code = RDW) 16.4 11.5-14.5 [facility] CenterWorngppRSQVTCFTKW2697-88-25 11:23:00 Test Item Value Reference Range Interpretation Comments Platelet (test code = Platelet) 342 133-450 [facility] CenterZgtuzifCUCIPEWIIY5223-77-36 11:23:00 Test Item Value Reference Range Interpretation Comments MPV (test code = MPV) 8.1 7.4-10.4 [facility] CenterFsqdzjuNBRRVALUCS1978-73-85 11:23:00 Test Item Value Reference Range Interpretation Comments Segs (test code = Segs) 82.0 45.0-75.0 [place] 439852-10-15 11:23:00 Test Item Value Reference Range Interpretation Comments Lymphocytes (test code = Lymphocytes) 8.9 20.0-40.0 [place] 439852-10-15 11:23:00 Test Item Value Reference Range Interpretation Comments Monocytes (test code = Monocytes) 6.0 2.0-12.0 [place] [address]-10-15 11:23:00 Test Item Value Reference Range Interpretation Comments Eosinophils (test code = 2.8 See_Comment [A utomated message] The Eosinophils) system which ge nerated this result tra nsmitted reference range : <=4.0. The reference r quynh was not used to int erpret this result as normal/abnormal . [place] [address]-10-15 11:23:00 Test Item Value Reference Range Interpretation Comments Basophils (test code = 0.3 See_Comment [Aut omated message] The Basophils) system which ge nerated this result tra nsmitted reference range : <=1.0. The reference r quynh was not used to int erpret this result as normal/abnormal . [place] [address]-10-15 11:23:00 Test Item Value Reference Range Interpretation Comments Neutrophils # (test code = Neutrophils 12.7 1.5-8.1 #) [place] [address]-10-15 11:23:00 Test Item Value Reference Range Interpretation Comments Lymphocytes # (test code = Lymphocytes 1.4 1.0-5.5 #) [place] [address]-10-15 11:23:00 Test Item Value Reference Range Interpretation Comments Monocytes # (test code 0.9 See_Comment [Aut omated message] The = Monocytes #) system which generated this result tra nsmitted reference range : <=0.8. The reference r quynh was not used to int erpret this result as normal/abnormal . [place] [address]-10-15 11:23:00 Test Item Value Reference Range Interpretation Comments Eosinophils # (test code 0.4 See_Comment [A utomated message] The = Eosinophils #) system ic h generated this result tra nsmitted reference range : <=0.5. The reference r quynh was not used to int erpret this result as normal/abnormal . [facility]2022-10-15 11:23:00 Test Item Value Reference Range Interpretation Comments Glucose Lvl (test code = Glucose Lvl) 96 70-99 [place] 786342-10-15 11:23:00 Test Item Value Reference Range Interpretation Comments BUN (test code = BUN) 13 7-22 [place] 786342-10-15 11:23:00 Test Item Value Reference Range Interpretation Comments Creatinine Lvl (test code = Creatinine 0.57 0.50-1.40 Lvl) [place] 786342-10-15 11:23:00 Test Item Value Reference Range Interpretation Comments Sodium Lvl (test code = Sodium Lvl) 137 135-145 [place] 786342-10-15 11:23:00 Test Item Value Reference Range Interpretation Comments Potassium Lvl (test code = Potassium 3.6 3.5-5.1 Lvl) [place] 786342-10-15 11:23:00 Test Item Value Reference Range Interpretation Comments Chloride Lvl (test code = Chloride Lvl) 100 95-109 [place] 786342-10-15 11:23:00 Test Item Value Reference Range Interpretation Comments CO2 (test code = CO2) 30 24-32 [place] 786342-10-15 11:23:00 Test Item Value Reference Range Interpretation Comments Calcium Lvl (test code = Calcium Lvl) 9.2 8.5-10.5 [facility]2022-10-15 11:23:00 Test Item Value Reference Range Interpretation Comments AGAP (test code = AGAP) 10.6 10.0-20.0 [facility]2022-10-15 11:23:00 Test Item Value Reference Range Interpretation Comments eGFR (test code = eGFR) 109 [place] 786342-10-15 11:23:00 Test Item Value Reference Range Interpretation Comments Magnesium Lvl (test code = Magnesium 2.1 1.8-2.4 Lvl) [place] 786342-10-15 11:23:00 Test Item Value Reference Range Interpretation Comments Phosphorus (test code = Phosphorus) 4.5 2.5-4.5 [facility]JC[facility]140[facility]46-66 11:23:00 Test Item Value Reference Range Interpretation Comments WBC (test code = WBC) 15.4 3.7-10.4 [facility] CenterWyppyubYLPZPIDSQM2173-27-92 11:23:00 Test Item Value Reference Range Interpretation Comments RBC (test code = RBC) 3.93 4.20-5.40 [place] 439852-10-15 11:23:00 Test Item Value Reference Range Interpretation Comments Hgb (test code = Hgb) 10.3 12.0-16.0 [place] [address]-10-15 11:23:00 Test Item Value Reference Range Interpretation Comments Hct (test code = Hct) 31.8 36.0-48.0 [place] 439852-10-15 11:23:00 Test Item Value Reference Range Interpretation Comments MCV (test code = MCV) 80.8 80.0-98.0 [place] 439852-10-15 11:23:00 Test Item Value Reference Range Interpretation Comments MCH (test code = MCH) 26.1 pg 27.0-31.0 [place] [address]-10-15 11:23:00 Test Item Value Reference Range Interpretation Comments MCHC (test code = MCHC) 32.3 32.0-36.0 [facility] CenterSnvypvmMASSBMXDPM5037-77-26 11:23:00 Test Item Value Reference Range Interpretation Comments RDW (test code = RDW) 16.4 11.5-14.5 [place] [address]-10-15 11:23:00 Test Item Value Reference Range Interpretation Comments Platelet (test code = Platelet) 342 133-450 [facility] CenterKkjwlzzPJSOVCTTTS1367-42-80 11:23:00 Test Item Value Reference Range Interpretation Comments MPV (test code = MPV) 8.1 7.4-10.4 [place] [address]-10-15 11:23:00 Test Item Value Reference Range Interpretation Comments Segs (test code = Segs) 82.0 45.0-75.0 [place] [address]-10-15 11:23:00 Test Item Value Reference Range Interpretation Comments Lymphocytes (test code = Lymphocytes) 8.9 20.0-40.0 [place] [address]-10-15 11:23:00 Test Item Value Reference Range Interpretation Comments Monocytes (test code = Monocytes) 6.0 2.0-12.0 [place] [address]-10-15 11:23:00 Test Item Value Reference Range Interpretation Comments Eosinophils (test code = 2.8 See_Comment [A utomated message] The Eosinophils) system which ge nerated this result tra nsmitted reference range : <=4.0. The reference r quynh was not used to int erpret this result as normal/abnormal . [facility]IqpisswUFAFKKMKJN9636-85-01 11:23:00 Test Item Value Reference Range Interpretation Comments Basophils (test code = 0.3 See_Comment [Aut omated message] The Basophils) system which ge nerated this result tra nsmitted reference range : <=1.0. The reference r quynh was not used to int erpret this result as normal/abnormal . [facility] DallasTqinqmmFYJDPZUXAE0585-09-93 11:23:00 Test Item Value Reference Range Interpretation Comments Neutrophils # (test code = Neutrophils 12.7 1.5-8.1 #) [place] 439852-10-15 11:23:00 Test Item Value Reference Range Interpretation Comments Lymphocytes # (test code = Lymphocytes 1.4 1.0-5.5 #) [place] [address]-10-15 11:23:00 Test Item Value Reference Range Interpretation Comments Monocytes # (test code 0.9 See_Comment [Aut omated message] The = Monocytes #) system which generated this result tra nsmitted reference range : <=0.8. The reference r quynh was not used to int erpret this result as normal/abnormal . [facility] DallasEzpgckiRZGHATTXMX2971-08-71 11:23:00 Test Item Value Reference Range Interpretation Comments Eosinophils # (test code 0.4 See_Comment [A utomated message] The = Eosinophils #) system whic h generated this result tra nsmitted reference range : <=0.5. The reference r quynh was not used to int erpret this result as normal/abnormal . [facility] GHEYJ8224-93-83 11:23:00 Test Item Value Reference Range Interpretation Comments Glucose Lvl (test code = Glucose Lvl) 96 70-99 [facility] ZVBUF1047-84-98 11:23:00 Test Item Value Reference Range Interpretation Comments BUN (test code = BUN) 13 7-22 [facility] NMSJN3424-40-19 11:23:00 Test Item Value Reference Range Interpretation Comments Creatinine Lvl (test code = Creatinine 0.57 0.50-1.40 Lvl) [place] 786342-10-15 11:23:00 Test Item Value Reference Range Interpretation Comments Sodium Lvl (test code = Sodium Lvl) 137 135-145 [place] 786342-10-15 11:23:00 Test Item Value Reference Range Interpretation Comments Potassium Lvl (test code = Potassium 3.6 3.5-5.1 Lvl) [place] 786342-10-15 11:23:00 Test Item Value Reference Range Interpretation Comments Chloride Lvl (test code = Chloride Lvl) 100 95-109 [place] 786342-10-15 11:23:00 Test Item Value Reference Range Interpretation Comments CO2 (test code = CO2) 30 24-32 [place] [address]-10-15 11:23:00 Test Item Value Reference Range Interpretation Comments Calcium Lvl (test code = Calcium Lvl) 9.2 8.5-10.5 [place] 786342-10-15 11:23:00 Test Item Value Reference Range Interpretation Comments AGAP (test code = AGAP) 10.6 10.0-20.0 [place] 786342-10-15 11:23:00 Test Item Value Reference Range Interpretation Comments eGFR (test code = eGFR) 109 [place] 786342-10-15 11:23:00 Test Item Value Reference Range Interpretation Comments Magnesium Lvl (test code = Magnesium 2.1 1.8-2.4 Lvl) [place] 786342-10-15 11:23:00 Test Item Value Reference Range Interpretation Comments Phosphorus (test code = Phosphorus) 4.5 2.5-4.5 [place] [address]-10-15 11:23:00 Test Item Value Reference Range Interpretation Comments WBC (test code = WBC) 15.4 3.7-10.4 [place] [address]-10-15 11:23:00 Test Item Value Reference Range Interpretation Comments RBC (test code = RBC) 3.93 4.20-5.40 [place] [address]-10-15 11:23:00 Test Item Value Reference Range Interpretation Comments Hgb (test code = Hgb) 10.3 12.0-16.0 [place] 439852-10-15 11:23:00 Test Item Value Reference Range Interpretation Comments Hct (test code = Hct) 31.8 36.0-48.0 [place] 439852-10-15 11:23:00 Test Item Value Reference Range Interpretation Comments MCV (test code = MCV) 80.8 80.0-98.0 [place] 439852-10-15 11:23:00 Test Item Value Reference Range Interpretation Comments MCH (test code = MCH) 26.1 pg 27.0-31.0 [place] 439852-10-15 11:23:00 Test Item Value Reference Range Interpretation Comments MCHC (test code = MCHC) 32.3 32.0-36.0 [place] 439852-10-15 11:23:00 Test Item Value Reference Range Interpretation Comments RDW (test code = RDW) 16.4 11.5-14.5 [place] 439852-10-15 11:23:00 Test Item Value Reference Range Interpretation Comments Platelet (test code = Platelet) 342 133-450 [facility] CenterYewbdqcOCNTXJSIDJ9012-81-55 11:23:00 Test Item Value Reference Range Interpretation Comments MPV (test code = MPV) 8.1 7.4-10.4 [facility] CenterBwgtbpqBPSVUFPELJ2200-56-40 11:23:00 Test Item Value Reference Range Interpretation Comments Segs (test code = Segs) 82.0 45.0-75.0 [place] 439852-10-15 11:23:00 Test Item Value Reference Range Interpretation Comments Lymphocytes (test code = Lymphocytes) 8.9 20.0-40.0 [place] 439852-10-15 11:23:00 Test Item Value Reference Range Interpretation Comments Monocytes (test code = Monocytes) 6.0 2.0-12.0 [place] [address]-10-15 11:23:00 Test Item Value Reference Range Interpretation Comments Eosinophils (test code = 2.8 See_Comment [A utomated message] The Eosinophils) system which ge nerated this result tra nsmitted reference range : <=4.0. The reference r quynh was not used to int erpret this result as normal/abnormal . [place] 439852-10-15 11:23:00 Test Item Value Reference Range Interpretation Comments Basophils (test code = 0.3 See_Comment [Aut omated message] The Basophils) system which ge nerated this result tra nsmitted reference range : <=1.0. The reference r quynh was not used to int erpret this result as normal/abnormal . [place] [address]-10-15 11:23:00 Test Item Value Reference Range Interpretation Comments Neutrophils # (test code = Neutrophils 12.7 1.5-8.1 #) [place] [address]-10-15 11:23:00 Test Item Value Reference Range Interpretation Comments Lymphocytes # (test code = Lymphocytes 1.4 1.0-5.5 #) [place] [address]-10-15 11:23:00 Test Item Value Reference Range Interpretation Comments Monocytes # (test code 0.9 See_Comment [Aut omated message] The = Monocytes #) system which generated this result tra nsmitted reference range : <=0.8. The reference r quynh was not used to int erpret this result as normal/abnormal . [place] [address]-10-15 11:23:00 Test Item Value Reference Range Interpretation Comments Eosinophils # (test code 0.4 See_Comment [A utomated message] The = Eosinophils #) system whic h generated this result tra nsmitted reference range : <=0.5. The reference r quynh was not used to int erpret this result as normal/abnormal . [place] 786342-10-15 11:23:00 Test Item Value Reference Range Interpretation Comments Glucose Lvl (test code = Glucose Lvl) 96 70-99 [place] 786342-10-15 11:23:00 Test Item Value Reference Range Interpretation Comments BUN (test code = BUN) 13 7-22 [place] [address]-10-15 11:23:00 Test Item Value Reference Range Interpretation Comments Creatinine Lvl (test code = Creatinine 0.57 0.50-1.40 Lvl) [place] 786342-10-15 11:23:00 Test Item Value Reference Range Interpretation Comments Sodium Lvl (test code = Sodium Lvl) 137 135-145 [place] 786342-10-15 11:23:00 Test Item Value Reference Range Interpretation Comments Potassium Lvl (test code = Potassium 3.6 3.5-5.1 Lvl) [place] 786342-10-15 11:23:00 Test Item Value Reference Range Interpretation Comments Chloride Lvl (test code = Chloride Lvl) 100 95-109 [place] [address]-10-15 11:23:00 Test Item Value Reference Range Interpretation Comments CO2 (test code = CO2) 30 24-32 [place] 786342-10-15 11:23:00 Test Item Value Reference Range Interpretation Comments Calcium Lvl (test code = Calcium Lvl) 9.2 8.5-10.5 [place] [address]-10-15 11:23:00 Test Item Value Reference Range Interpretation Comments AGAP (test code = AGAP) 10.6 10.0-20.0 [place] 786342-10-15 11:23:00 Test Item Value Reference Range Interpretation Comments eGFR (test code = eGFR) 109 [place] 786342-10-15 11:23:00 Test Item Value Reference Range Interpretation Comments Magnesium Lvl (test code = Magnesium 2.1 1.8-2.4 Lvl) [place] 786342-10-15 11:23:00 Test Item Value Reference Range Interpretation Comments Phosphorus (test code = Phosphorus) 4.5 2.5-4.5 [place] 439852-10-15 11:23:00 Test Item Value Reference Range Interpretation Comments WBC (test code = WBC) 15.4 3.7-10.4 [place] 439852-10-15 11:23:00 Test Item Value Reference Range Interpretation Comments RBC (test code = RBC) 3.93 4.20-5.40 [place] [address]-10-15 11:23:00 Test Item Value Reference Range Interpretation Comments Hgb (test code = Hgb) 10.3 12.0-16.0 [place] [address]-10-15 11:23:00 Test Item Value Reference Range Interpretation Comments Hct (test code = Hct) 31.8 36.0-48.0 [place] [address]-10-15 11:23:00 Test Item Value Reference Range Interpretation Comments MCV (test code = MCV) 80.8 80.0-98.0 [address]10-15 11:23:00 Test Item Value Reference Range Interpretation Comments MCH (test code = MCH) 26.1 pg 27.0-31.0 [facility] CenterNhlkvbcFWYJCVHEHK0029-34-89 11:23:00 Test Item Value Reference Range Interpretation Comments MCHC (test code = MCHC) 32.3 32.0-36.0 [facility] CenterPnbdbjmMCDBHFDQUV2922-44-40 11:23:00 Test Item Value Reference Range Interpretation Comments RDW (test code = RDW) 16.4 11.5-14.5 [facility] CenterObixomlGZVNWAYLAH9077-83-65 16:51:00 Test Item Value Reference Range Interpretation Comments PT (test code = PT) 14.9 s 12.0-14.7 [facility] CenterFospcnaJOVYQDKWHA3237-15-50 16:51:00 Test Item Value Reference Range Interpretation Comments INR (test code = INR) 1.18 1 0.85-1.17 [facility] CenterGwbpdarYOTUBXEHBE3840-31-40 16:51:00 Test Item Value Reference Range Interpretation Comments PTT (test code = PTT) 41.3 s 22.9-35.8 [facility] CenterEhifnviGPGTEGKDVP2225-02-83 16:51:00 Test Item Value Reference Range Interpretation Comments PT (test code = PT) 14.9 s 12.0-14.7 [facility] CenterIylnhpyTJADAZNXIY5197-75-06 16:51:00 Test Item Value Reference Range Interpretation Comments INR (test code = INR) 1.18 1 0.85-1.17 [facility] CenterHsnwywpKCJRXNXTUE0204-88-72 16:51:00 Test Item Value Reference Range Interpretation Comments PTT (test code = PTT) 41.3 s 22.9-35.8 [facility] CenterIojftszFNXDWBFQLV2603-35-77 16:51:00 Test Item Value Reference Range Interpretation Comments PT (test code = PT) 14.9 s 12.0-14.7 [facility] CenterExbysruZAKSXTUBZY8754-91-72 16:51:00 Test Item Value Reference Range Interpretation Comments INR (test code = INR) 1.18 1 0.85-1.17 [facility] CenterZpggrdxASXMUVYCYU7687-36-19 16:51:00 Test Item Value Reference Range Interpretation Comments PTT (test code = PTT) 41.3 s 22.9-35.8 [facility] CenterLlfmgfyGQZXKIDNQV0256-44-13 16:51:00 Test Item Value Reference Range Interpretation Comments PT (test code = PT) 14.9 s 12.0-14.7 [facility] CenterNckqbbnOJXXJGLSZZ0892-78-38 16:51:00 Test Item Value Reference Range Interpretation Comments INR (test code = INR) 1.18 1 0.85-1.17 [facility] CenterGmxnladOZZBIBPRRA6193-64-76 16:51:00 Test Item Value Reference Range Interpretation Comments PTT (test code = PTT) 41.3 s 22.9-35.8 [facility] CenterLbkbdgeXVKVEUFQDY6630-54-33 16:51:00 Test Item Value Reference Range Interpretation Comments PT (test code = PT) 14.9 s 12.0-14.7 [facility] CenterDhhzcqxGRSREBFISX4208-09-17 16:51:00 Test Item Value Reference Range Interpretation Comments INR (test code = INR) 1.18 1 0.85-1.17 [facility] CenterJusfmlcHLEAGXUSJX2501-13-68 16:51:00 Test Item Value Reference Range Interpretation Comments PTT (test code = PTT) 41.3 s 22.9-35.8 [facility] CenterKewsfpgYIQQFPYWHG6599-41-83 16:51:00 Test Item Value Reference Range Interpretation Comments PT (test code = PT) 14.9 s 12.0-14.7 [facility] CenterBmfhqlzAGOSKLLMDC1380-93-67 16:51:00 Test Item Value Reference Range Interpretation Comments INR (test code = INR) 1.18 1 0.85-1.17 [facility] CenterFspphxbLCDSZTTEDB2787-37-70 16:51:00 Test Item Value Reference Range Interpretation Comments PTT (test code = PTT) 41.3 s 22.9-35.8 [facility] CenterOkseblwZYPVDLJCED8087-97-92 16:51:00 Test Item Value Reference Range Interpretation Comments PT (test code = PT) 14.9 s 12.0-14.7 [facility] CenterKamspxrBYBSAQDSCA2802-34-60 16:51:00 Test Item Value Reference Range Interpretation Comments INR (test code = INR) 1.18 1 0.85-1.17 [facility] CenterOyybwqwISEYCELGUM3767-95-23 16:51:00 Test Item Value Reference Range Interpretation Comments PTT (test code = PTT) 41.3 s 22.9-35.8 [facility] CenterThvstchNDCGFSJXAH1155-91-65 16:51:00 Test Item Value Reference Range Interpretation Comments PT (test code = PT) 14.9 s 12.0-14.7 [facility] CenterKpjmiumTBZDMVAYYT6048-65-03 16:51:00 Test Item Value Reference Range Interpretation Comments INR (test code = INR) 1.18 1 0.85-1.17 [facility] CenterQeetjdjQJXPBQOTDD1287-54-58 16:51:00 Test Item Value Reference Range Interpretation Comments PTT (test code = PTT) 41.3 s 22.9-35.8 [facility] CenterSbvfxfdVUBTLHUKSP0263-28-83 16:51:00 Test Item Value Reference Range Interpretation Comments PT (test code = PT) 14.9 s 12.0-14.7 [facility] CenterXrajuglVZKWXQHKHY8667-81-96 16:51:00 Test Item Value Reference Range Interpretation Comments INR (test code = INR) 1.18 1 0.85-1.17 [facility] CenterObjknscJBXFDVXRME9901-07-49 16:51:00 Test Item Value Reference Range Interpretation Comments PTT (test code = PTT) 41.3 s 22.9-35.8 [facility] CenterJhipiftRBYHLOLYEH6029-71-47 16:51:00 Test Item Value Reference Range Interpretation Comments PT (test code = PT) 14.9 s 12.0-14.7 [facility] CenterZnxuxbdIQZXOAXNPG4358-74-91 16:51:00 Test Item Value Reference Range Interpretation Comments INR (test code = INR) 1.18 1 0.85-1.17 [facility] CenterKzbtwgbXMXXTSYMJH7717-76-15 16:51:00 Test Item Value Reference Range Interpretation Comments PTT (test code = PTT) 41.3 s 22.9-35.8 [facility] CenterNxthvuqUBHHEZGVKQ0735-38-06 16:51:00 Test Item Value Reference Range Interpretation Comments PT (test code = PT) 14.9 s 12.0-14.7 [facility] CenterOyayqylPXXNLFKHFE0013-66-18 16:51:00 Test Item Value Reference Range Interpretation Comments INR (test code = INR) 1.18 1 0.85-1.17 [facility] CenterHhnbieaGNLVUGNMOX7485-52-17 16:51:00 Test Item Value Reference Range Interpretation Comments PTT (test code = PTT) 41.3 s 22.9-35.8 [facility] CenterVxniavrIDHPQUJBZO9949-55-90 16:51:00 Test Item Value Reference Range Interpretation Comments PT (test code = PT) 14.9 s 12.0-14.7 [facility] CenterVoovtxoTAVHEXXFQO3846-24-27 16:51:00 Test Item Value Reference Range Interpretation Comments INR (test code = INR) 1.18 1 0.85-1.17 [facility] CenterZczvlmoUKHOQTCJBU8363-16-48 16:51:00 Test Item Value Reference Range Interpretation Comments PTT (test code = PTT) 41.3 s 22.9-35.8 [facility] CenterNuhbgudYMWLHFKMRM5555-88-93 16:51:00 Test Item Value Reference Range Interpretation Comments PT (test code = PT) 14.9 s 12.0-14.7 [facility] CenterBuubimeSRHGELUPYS9573-62-00 16:51:00 Test Item Value Reference Range Interpretation Comments INR (test code = INR) 1.18 1 0.85-1.17 [facility] CenterXtgcczwVOMGQIZIBA0324-58-48 16:51:00 Test Item Value Reference Range Interpretation Comments PTT (test code = PTT) 41.3 s 22.9-35.8 [facility] CenterSmabwhlOVGCJPSZXW2841-57-97 16:51:00 Test Item Value Reference Range Interpretation Comments PT (test code = PT) 14.9 s 12.0-14.7 [facility] CenterMtsntxsZNFSOLNUEP7411-37-74 16:51:00 Test Item Value Reference Range Interpretation Comments INR (test code = INR) 1.18 1 0.85-1.17 [facility] CenterMkvydtwMLTJLSBDHM6336-60-63 16:51:00 Test Item Value Reference Range Interpretation Comments PTT (test code = PTT) 41.3 s 22.9-35.8 [facility] CenterUexptqhDVBQKFVTWW3260-73-69 16:51:00 Test Item Value Reference Range Interpretation Comments PT (test code = PT) 14.9 s 12.0-14.7 [facility] CenterOficrfkSERSXCBYEG6922-25-04 16:51:00 Test Item Value Reference Range Interpretation Comments INR (test code = INR) 1.18 1 0.85-1.17 [facility] CenterGvksdqcBIRTLYUNZN7396-57-46 16:51:00 Test Item Value Reference Range Interpretation Comments PTT (test code = PTT) 41.3 s 22.9-35.8 [facility] CenterHesujmpNPVAAGYPHR9851-59-43 16:51:00 Test Item Value Reference Range Interpretation Comments PT (test code = PT) 14.9 s 12.0-14.7 [facility] CenterMxastspBOGWHSPZRQ7170-38-83 16:51:00 Test Item Value Reference Range Interpretation Comments INR (test code = INR) 1.18 1 0.85-1.17 [facility] CenterAlirjhoPZIHKUMSCL1037-25-93 16:51:00 Test Item Value Reference Range Interpretation Comments PTT (test code = PTT) 41.3 s 22.9-35.8 [facility] CenterFmodbjtWPJSYYVQUZ1641-35-74 16:51:00 Test Item Value Reference Range Interpretation Comments PT (test code = PT) 14.9 s 12.0-14.7 [facility] CenterYfsqxarSYHIFHVCLW6617-72-24 16:51:00 Test Item Value Reference Range Interpretation Comments INR (test code = INR) 1.18 1 0.85-1.17 [facility] CenterUufpheuOTJIXZQBLJ1915-66-89 16:51:00 Test Item Value Reference Range Interpretation Comments PTT (test code = PTT) 41.3 s 22.9-35.8 [facility] CenterZgoxtwcPXYUEONDZF5977-60-67 16:51:00 Test Item Value Reference Range Interpretation Comments PT (test code = PT) 14.9 s 12.0-14.7 [facility] CenterUosvbokLLPULTOWME5271-11-67 16:51:00 Test Item Value Reference Range Interpretation Comments INR (test code = INR) 1.18 1 0.85-1.17 [facility] CenterCqohpwePEWIYVHXZG1527-77-32 16:51:00 Test Item Value Reference Range Interpretation Comments PTT (test code = PTT) 41.3 s 22.9-35.8 [facility] CenterJduakzpDXRPPBPKBT5890-30-89 16:51:00 Test Item Value Reference Range Interpretation Comments PT (test code = PT) 14.9 s 12.0-14.7 [facility] [facility]IaawptkMXFYAYFOBD4119-71-65 16:51:00 Test Item Value Reference Range Interpretation Comments INR (test code = INR) 1.18 1 0.85-1.17 [facility] CenterBrppkzzGTJFNEKHAF1688-92-22 16:51:00 Test Item Value Reference Range Interpretation Comments PTT (test code = PTT) 41.3 s 22.9-35.8 [facility] CenterSdaqxvfIKUFOTLUFU7260-18-79 16:51:00 Test Item Value Reference Range Interpretation Comments PT (test code = PT) 14.9 s 12.0-14.7 [place] 439852-10-14 16:51:00 Test Item Value Reference Range Interpretation Comments INR (test code = INR) 1.18 1 0.85-1.17 [facility] CenterJwujosdPQBMPIMWDJ2841-92-04 16:51:00 Test Item Value Reference Range Interpretation Comments PTT (test code = PTT) 41.3 s 22.9-35.8 [facility] CenterKxsjdjhITFSYSVKFF5187-25-37 16:51:00 Test Item Value Reference Range Interpretation Comments PT (test code = PT) 14.9 s 12.0-14.7 [facility] CenterHxxvrchVTAXGSQIBL6236-57-35 16:51:00 Test Item Value Reference Range Interpretation Comments INR (test code = INR) 1.18 1 0.85-1.17 [facility] CenterUdkpwkvUIUNFNHGAP4535-68-60 16:51:00 Test Item Value Reference Range Interpretation Comments PTT (test code = PTT) 41.3 s 22.9-35.8 [facility] CenterDxsqtpzAZOCFZDLVN6264-57-87 16:51:00 Test Item Value Reference Range Interpretation Comments PT (test code = PT) 14.9 s 12.0-14.7 [facility] CenterVsyvyvyFMFCAMLYVF8682-68-00 16:51:00 Test Item Value Reference Range Interpretation Comments INR (test code = INR) 1.18 1 0.85-1.17 [facility] CenterSoaakxrBXEUBHBOKO3555-86-53 16:51:00 Test Item Value Reference Range Interpretation Comments PTT (test code = PTT) 41.3 s 22.9-35.8 [facility] CenterMjjmdhxRBUSDJIBLA2170-17-15 16:51:00 Test Item Value Reference Range Interpretation Comments PT (test code = PT) 14.9 s 12.0-14.7 [facility] CenterPtjrhnyWIMWSLMYXP8409-58-29 16:51:00 Test Item Value Reference Range Interpretation Comments INR (test code = INR) 1.18 1 0.85-1.17 [facility] CenterLnugdndQEGZUWLXOS1489-37-94 16:51:00 Test Item Value Reference Range Interpretation Comments PTT (test code = PTT) 41.3 s 22.9-35.8 [facility] CenterLfmhxycEFAUPLZOMN3291-73-06 16:51:00 Test Item Value Reference Range Interpretation Comments PT (test code = PT) 14.9 s 12.0-14.7 [place] 439852-10-14 16:51:00 Test Item Value Reference Range Interpretation Comments INR (test code = INR) 1.18 1 0.85-1.17 [facility] CenterMxgyueaPBIDDETQJO0408-34-47 16:51:00 Test Item Value Reference Range Interpretation Comments PTT (test code = PTT) 41.3 s 22.9-35.8 [facility] CenterOmdstfhKCFFJZSUCA3142-14-11 16:51:00 Test Item Value Reference Range Interpretation Comments PT (test code = PT) 14.9 s 12.0-14.7 [facility] CenterFkspmplDXSPFAMOMB5505-05-82 16:51:00 Test Item Value Reference Range Interpretation Comments INR (test code = INR) 1.18 1 0.85-1.17 [facility] CenterOykjucsODXQTVCRIO8694-15-80 16:51:00 Test Item Value Reference Range Interpretation Comments PTT (test code = PTT) 41.3 s 22.9-35.8 [facility] CenterLgqdtiaECJRUNVITT1367-24-74 16:51:00 Test Item Value Reference Range Interpretation Comments PT (test code = PT) 14.9 s 12.0-14.7 [facility] CenterCjonzwhIMDTFEYDEZ0591-24-78 16:51:00 Test Item Value Reference Range Interpretation Comments INR (test code = INR) 1.18 1 0.85-1.17 [facility] CenterUjotwdtJRKUAXJMEC8469-25-25 16:51:00 Test Item Value Reference Range Interpretation Comments PTT (test code = PTT) 41.3 s 22.9-35.8 [facility] CenterHfjsfqrDKOMFZOWQY4835-64-94 16:51:00 Test Item Value Reference Range Interpretation Comments PT (test code = PT) 14.9 s 12.0-14.7 [facility] CenterRhrorhpWOIVBWSCKU6967-51-07 16:51:00 Test Item Value Reference Range Interpretation Comments INR (test code = INR) 1.18 1 0.85-1.17 [facility] CenterTtdijxePUIKNSWUFA7644-74-44 16:51:00 Test Item Value Reference Range Interpretation Comments PTT (test code = PTT) 41.3 s 22.9-35.8 [facility] CenterSvrrbqgFPKRULIQJP2212-99-05 16:51:00 Test Item Value Reference Range Interpretation Comments PT (test code = PT) 14.9 s 12.0-14.7 [facility] CenterSjlomviMAMKADBYFE1215-84-10 16:51:00 Test Item Value Reference Range Interpretation Comments INR (test code = INR) 1.18 1 0.85-1.17 [facility] CenterQlhsvlqZABFDEJHZH1977-77-92 16:51:00 Test Item Value Reference Range Interpretation Comments PTT (test code = PTT) 41.3 s 22.9-35.8 [facility] CenterIdcdtfuXOTORZMKAL3875-94-06 16:51:00 Test Item Value Reference Range Interpretation Comments PT (test code = PT) 14.9 s 12.0-14.7 [facility] CenterOflqxvgKQHTBKHWIE1531-20-56 16:51:00 Test Item Value Reference Range Interpretation Comments INR (test code = INR) 1.18 1 0.85-1.17 [facility] CenterFarapfjXLNYPQLUQP4809-66-82 16:51:00 Test Item Value Reference Range Interpretation Comments PTT (test code = PTT) 41.3 s 22.9-35.8 [facility] CenterYzvboztJTJXXBZZWW2898-00-91 16:51:00 Test Item Value Reference Range Interpretation Comments PT (test code = PT) 14.9 s 12.0-14.7 [facility] CenterNzuhaluIFDHCCPPVG4545-55-78 16:51:00 Test Item Value Reference Range Interpretation Comments INR (test code = INR) 1.18 1 0.85-1.17 [facility] CenterTgnapckCPSEPNHRFO8152-21-84 16:51:00 Test Item Value Reference Range Interpretation Comments PTT (test code = PTT) 41.3 s 22.9-35.8 [facility] CenterVwavekkESEMEHOXMI2399-97-45 16:51:00 Test Item Value Reference Range Interpretation Comments PT (test code = PT) 14.9 s 12.0-14.7 [facility] CenterEdjpwwmZYNBIBGADM6490-25-24 16:51:00 Test Item Value Reference Range Interpretation Comments INR (test code = INR) 1.18 1 0.85-1.17 [facility] CenterWiwpeuiRWPITUPHNF9320-99-89 16:51:00 Test Item Value Reference Range Interpretation Comments PTT (test code = PTT) 41.3 s 22.9-35.8 [facility] CenterYyeqjgdMUGPGYIXIT5526-87-95 16:51:00 Test Item Value Reference Range Interpretation Comments PT (test code = PT) 14.9 s 12.0-14.7 [facility] CenterNwfkzwvDPSXQDCILI1438-52-41 16:51:00 Test Item Value Reference Range Interpretation Comments INR (test code = INR) 1.18 1 0.85-1.17 [facility] CenterCwytugtKSLLXLXGDA8923-11-93 16:51:00 Test Item Value Reference Range Interpretation Comments PTT (test code = PTT) 41.3 s 22.9-35.8 [facility] CenterDppeqvmAMGSXUDSLR4824-46-89 16:51:00 Test Item Value Reference Range Interpretation Comments PT (test code = PT) 14.9 s 12.0-14.7 [facility] CenterRpmiwvfVOYOIDJLGL7705-12-07 16:51:00 Test Item Value Reference Range Interpretation Comments INR (test code = INR) 1.18 1 0.85-1.17 [facility] CenterTswkjxpJWEMUCZOFX1398-69-08 16:51:00 Test Item Value Reference Range Interpretation Comments PTT (test code = PTT) 41.3 s 22.9-35.8 [facility] CenterCksncrjPUTQRREZHF5476-77-49 16:51:00 Test Item Value Reference Range Interpretation Comments PT (test code = PT) 14.9 s 12.0-14.7 [facility] CenterDdfgwcwQYAZEKRMAV9475-62-55 16:51:00 Test Item Value Reference Range Interpretation Comments INR (test code = INR) 1.18 1 0.85-1.17 [facility] CenterXcilrslDQPETKCGQF1002-63-41 16:51:00 Test Item Value Reference Range Interpretation Comments PTT (test code = PTT) 41.3 s 22.9-35.8 [facility] CenterRhmmxgzETDLJMROXY4736-97-08 16:51:00 Test Item Value Reference Range Interpretation Comments PT (test code = PT) 14.9 s 12.0-14.7 [facility] CenterVdqwpyeRRLYLVQYQU8911-91-23 16:51:00 Test Item Value Reference Range Interpretation Comments INR (test code = INR) 1.18 1 0.85-1.17 [facility] CenterAekacbzVILRCYVJJS2115-62-02 16:51:00 Test Item Value Reference Range Interpretation Comments PTT (test code = PTT) 41.3 s 22.9-35.8 [facility] CenterZdndxapQTBWWMCSFA4747-92-86 16:51:00 Test Item Value Reference Range Interpretation Comments PT (test code = PT) 14.9 s 12.0-14.7 [place] 439852-10-14 16:51:00 Test Item Value Reference Range Interpretation Comments INR (test code = INR) 1.18 1 0.85-1.17 [facility] CenterCxjvxzcZZLZNWSBJO3535-08-39 16:51:00 Test Item Value Reference Range Interpretation Comments PTT (test code = PTT) 41.3 s 22.9-35.8 [facility] CenterJpvppvyCDMKUYTDDF2466-77-24 16:51:00 Test Item Value Reference Range Interpretation Comments PT (test code = PT) 14.9 s 12.0-14.7 [facility] CenterIangjdmSJWFFLLCTT2971-43-61 16:51:00 Test Item Value Reference Range Interpretation Comments INR (test code = INR) 1.18 1 0.85-1.17 [facility] CenterKlcnchoPGDSREOPIQ5961-06-12 16:51:00 Test Item Value Reference Range Interpretation Comments PTT (test code = PTT) 41.3 s 22.9-35.8 [facility] CenterCqvzvzwWQWUGMLPPL7579-33-12 16:51:00 Test Item Value Reference Range Interpretation Comments PT (test code = PT) 14.9 s 12.0-14.7 [facility] CenterIpuihfdQIKLHGPKJA3541-08-49 16:51:00 Test Item Value Reference Range Interpretation Comments INR (test code = INR) 1.18 1 0.85-1.17 [facility] CenterZtdhypiGBWQXXDRQR9095-97-92 16:51:00 Test Item Value Reference Range Interpretation Comments PTT (test code = PTT) 41.3 s 22.9-35.8 [facility] CenterRnjtaggXNPXHFLBYY0292-50-03 16:51:00 Test Item Value Reference Range Interpretation Comments PT (test code = PT) 14.9 s 12.0-14.7 [facility] CenterAdmoskrBEIDHOJMVW3225-76-97 16:51:00 Test Item Value Reference Range Interpretation Comments INR (test code = INR) 1.18 1 0.85-1.17 [facility] CenterMeyfroiBLUUWCEOUN3375-89-98 16:51:00 Test Item Value Reference Range Interpretation Comments PTT (test code = PTT) 41.3 s 22.9-35.8 [facility] CenterFbgkfpiTMBXCGVEMB8285-41-63 16:51:00 Test Item Value Reference Range Interpretation Comments PT (test code = PT) 14.9 s 12.0-14.7 [facility] CenterPhrabjdKGKIZOZKCE0150-74-48 16:51:00 Test Item Value Reference Range Interpretation Comments INR (test code = INR) 1.18 1 0.85-1.17 [facility] CenterAooiiziEZLYKFIOWH0425-23-10 16:51:00 Test Item Value Reference Range Interpretation Comments PTT (test code = PTT) 41.3 s 22.9-35.8 [facility] CenterTlgnyozKCIANZJAML1953-13-20 16:51:00 Test Item Value Reference Range Interpretation Comments PT (test code = PT) 14.9 s 12.0-14.7 [facility] CenterFirirrpXBTYFHCPFL1185-09-48 16:51:00 Test Item Value Reference Range Interpretation Comments INR (test code = INR) 1.18 1 0.85-1.17 [facility] CenterIqkmmptKNNVESWRKH3465-63-38 16:51:00 Test Item Value Reference Range Interpretation Comments PTT (test code = PTT) 41.3 s 22.9-35.8 [facility] CenterIghuutkMBOMSAXKXG4581-59-33 16:51:00 Test Item Value Reference Range Interpretation Comments PT (test code = PT) 14.9 s 12.0-14.7 [facility] CenterVexnryhCZETTYYJHZ1016-04-22 16:51:00 Test Item Value Reference Range Interpretation Comments INR (test code = INR) 1.18 1 0.85-1.17 [facility] CenterGbrskmpYNXOWLOGZB4128-47-32 16:51:00 Test Item Value Reference Range Interpretation Comments PTT (test code = PTT) 41.3 s 22.9-35.8 [facility] CenterBpjcgpuKACQDXISOT9650-15-09 16:51:00 Test Item Value Reference Range Interpretation Comments PT (test code = PT) 14.9 s 12.0-14.7 [facility] CenterAxsxjyzZIOAHLITOC5668-76-70 16:51:00 Test Item Value Reference Range Interpretation Comments INR (test code = INR) 1.18 1 0.85-1.17 [facility] CenterOoqnyziBVKUPUKWNB3187-21-52 16:51:00 Test Item Value Reference Range Interpretation Comments PTT (test code = PTT) 41.3 s 22.9-35.8 [facility] CenterRtlmpyxYXPIGHQSWQ2151-97-15 16:51:00 Test Item Value Reference Range Interpretation Comments PT (test code = PT) 14.9 s 12.0-14.7 [place] [address]-10-14 16:51:00 Test Item Value Reference Range Interpretation Comments INR (test code = INR) 1.18 1 0.85-1.17 [place] 439852-10-14 16:51:00 Test Item Value Reference Range Interpretation Comments PTT (test code = PTT) 41.3 s 22.9-35.8 [facility] CenterBaekxbfHHOLJOGJQD7009-82-94 16:51:00 Test Item Value Reference Range Interpretation Comments PT (test code = PT) 14.9 s 12.0-14.7 [facility] CenterJhrmyysQOBDRULFEG1557-04-88 16:51:00 Test Item Value Reference Range Interpretation Comments INR (test code = INR) 1.18 1 0.85-1.17 [facility] CenterUpegltfPQQHXBJWAN2833-69-58 16:51:00 Test Item Value Reference Range Interpretation Comments PTT (test code = PTT) 41.3 s 22.9-35.8 [facility] CenterNkszdtjRUAVHXWQOU0264-59-24 16:51:00 Test Item Value Reference Range Interpretation Comments PT (test code = PT) 14.9 s 12.0-14.7 [facility] CenterMgfgnjmFCKUAUPBEU2270-15-21 16:51:00 Test Item Value Reference Range Interpretation Comments INR (test code = INR) 1.18 1 0.85-1.17 [facility] CenterQsckewcNONSOLPFTZ5388-30-22 16:51:00 Test Item Value Reference Range Interpretation Comments PTT (test code = PTT) 41.3 s 22.9-35.8 [facility] CenterHiwjsxtQOQLWBYPLO1412-17-52 16:51:00 Test Item Value Reference Range Interpretation Comments PT (test code = PT) 14.9 s 12.0-14.7 [facility] CenterRqvjbofEOMPYHURPG3899-70-35 16:51:00 Test Item Value Reference Range Interpretation Comments INR (test code = INR) 1.18 1 0.85-1.17 [facility] CenterEtugfjzIFNCFYTPDE6889-28-22 16:51:00 Test Item Value Reference Range Interpretation Comments PTT (test code = PTT) 41.3 s 22.9-35.8 [facility] CenterDnqjafvYYZHRMFDMH1171-73-01 16:51:00 Test Item Value Reference Range Interpretation Comments PT (test code = PT) 14.9 s 12.0-14.7 [place] [address]-10-14 16:51:00 Test Item Value Reference Range Interpretation Comments INR (test code = INR) 1.18 1 0.85-1.17 [place] 439852-10-14 16:51:00 Test Item Value Reference Range Interpretation Comments PTT (test code = PTT) 41.3 s 22.9-35.8 [facility] CenterJmaxegcCQCXFFACUC8924-45-11 16:51:00 Test Item Value Reference Range Interpretation Comments PT (test code = PT) 14.9 s 12.0-14.7 [facility] CenterQfsixwbNOTGFLXQEZ7247-61-07 16:51:00 Test Item Value Reference Range Interpretation Comments INR (test code = INR) 1.18 1 0.85-1.17 [facility] CenterYizpcbtJPSRATXWCP3329-33-10 16:51:00 Test Item Value Reference Range Interpretation Comments PTT (test code = PTT) 41.3 s 22.9-35.8 [facility] CenterJdoswyeNUGDJQEJLA0943-79-77 16:51:00 Test Item Value Reference Range Interpretation Comments PT (test code = PT) 14.9 s 12.0-14.7 [facility] CenterCnxxgyhNMKJRJDBMD8941-91-88 16:51:00 Test Item Value Reference Range Interpretation Comments INR (test code = INR) 1.18 1 0.85-1.17 [facility] CenterCbiyhcmAHRAAEZRTZ1852-05-03 16:51:00 Test Item Value Reference Range Interpretation Comments PTT (test code = PTT) 41.3 s 22.9-35.8 [facility] CenterYcatdwzEBAHBOZSCP0123-64-62 16:51:00 Test Item Value Reference Range Interpretation Comments PT (test code = PT) 14.9 s 12.0-14.7 [facility] CenterKuzbtmjQFBDRHUZLM7256-02-73 16:51:00 Test Item Value Reference Range Interpretation Comments INR (test code = INR) 1.18 1 0.85-1.17 [facility] CenterIsrpylcRQHNXHYYDO1426-11-71 16:51:00 Test Item Value Reference Range Interpretation Comments PTT (test code = PTT) 41.3 s 22.9-35.8 [facility] CenterBwbtjirYXZRELCZPP8090-62-13 16:51:00 Test Item Value Reference Range Interpretation Comments PT (test code = PT) 14.9 s 12.0-14.7 [facility] CenterQtifikxXCQJQEVSDT0934-02-44 16:51:00 Test Item Value Reference Range Interpretation Comments INR (test code = INR) 1.18 1 0.85-1.17 [facility] CenterNceyhxnZIVRNHERHQ4702-17-62 16:51:00 Test Item Value Reference Range Interpretation Comments PTT (test code = PTT) 41.3 s 22.9-35.8 [facility] CenterMarflwoVSWMBSRXXD5734-66-09 16:51:00 Test Item Value Reference Range Interpretation Comments PT (test code = PT) 14.9 s 12.0-14.7 [facility] CenterAoyqngbDFLULCMEWE7285-03-57 16:51:00 Test Item Value Reference Range Interpretation Comments INR (test code = INR) 1.18 1 0.85-1.17 [facility] CenterCdkkhwbDAIKAIRXOD3798-22-84 16:51:00 Test Item Value Reference Range Interpretation Comments PTT (test code = PTT) 41.3 s 22.9-35.8 [facility] CenterLtoyctzLEVOZOTKIL8901-33-01 16:51:00 Test Item Value Reference Range Interpretation Comments PT (test code = PT) 14.9 s 12.0-14.7 [facility] CenterQccexjmPNSTXOLJKG5323-13-66 16:51:00 Test Item Value Reference Range Interpretation Comments INR (test code = INR) 1.18 1 0.85-1.17 [facility] CenterAzzlouuNYHQRSLJIO6552-04-12 16:51:00 Test Item Value Reference Range Interpretation Comments PTT (test code = PTT) 41.3 s 22.9-35.8 [facility] CenterYelmsdkBVKIWRXFYX3984-39-65 16:51:00 Test Item Value Reference Range Interpretation Comments PT (test code = PT) 14.9 s 12.0-14.7 [facility] CenterDjbluvdXHEODZFHFZ5198-15-14 16:51:00 Test Item Value Reference Range Interpretation Comments INR (test code = INR) 1.18 1 0.85-1.17 [facility] CenterJxykoaePSRVHBVVHJ3548-71-12 16:51:00 Test Item Value Reference Range Interpretation Comments PTT (test code = PTT) 41.3 s 22.9-35.8 [facility] CenterQvfsawwQBXXSNLTWI6081-76-54 16:51:00 Test Item Value Reference Range Interpretation Comments PT (test code = PT) 14.9 s 12.0-14.7 [facility] CenterIwihhyoDJPGSCXXZZ9146-85-35 16:51:00 Test Item Value Reference Range Interpretation Comments INR (test code = INR) 1.18 1 0.85-1.17 [facility] CenterXjdetcoQHJFLHGZLV9516-27-15 16:51:00 Test Item Value Reference Range Interpretation Comments PTT (test code = PTT) 41.3 s 22.9-35.8 [facility] CenterKxmmripSEMWHNYWYT6628-24-90 16:51:00 Test Item Value Reference Range Interpretation Comments PT (test code = PT) 14.9 s 12.0-14.7 [facility] CenterScmejryUXKLIQUPIV0215-07-60 16:51:00 Test Item Value Reference Range Interpretation Comments INR (test code = INR) 1.18 1 0.85-1.17 [facility] CenterXuaronlJGNJVGQREX1066-10-53 16:51:00 Test Item Value Reference Range Interpretation Comments PTT (test code = PTT) 41.3 s 22.9-35.8 [facility] CenterWqapjkxBIHMYESIMO5654-72-78 16:51:00 Test Item Value Reference Range Interpretation Comments PT (test code = PT) 14.9 s 12.0-14.7 [facility] CenterPkhhcqsPYMAYXZWDG1100-49-37 16:51:00 Test Item Value Reference Range Interpretation Comments INR (test code = INR) 1.18 1 0.85-1.17 [facility] CenterUgktsmfIFLATHYKSU2864-36-21 16:51:00 Test Item Value Reference Range Interpretation Comments PTT (test code = PTT) 41.3 s 22.9-35.8 [facility] CenterBjwuxsaQKNMIVZTRG0439-06-24 16:51:00 Test Item Value Reference Range Interpretation Comments PT (test code = PT) 14.9 s 12.0-14.7 [facility] CenterWydytapGOSQIMUCNC6983-75-05 16:51:00 Test Item Value Reference Range Interpretation Comments INR (test code = INR) 1.18 1 0.85-1.17 [facility] CenterTdgvqvtTEHWJTIOWR7289-79-37 16:51:00 Test Item Value Reference Range Interpretation Comments PTT (test code = PTT) 41.3 s 22.9-35.8 [facility] CenterSctfciwEBDREZGTZP4077-90-22 16:51:00 Test Item Value Reference Range Interpretation Comments PT (test code = PT) 14.9 s 12.0-14.7 [facility] CenterSecqvpbKDMKXYJKLT0650-18-86 16:51:00 Test Item Value Reference Range Interpretation Comments INR (test code = INR) 1.18 1 0.85-1.17 [facility] CenterSxpjuzaYSASKOCCFO9012-87-12 16:51:00 Test Item Value Reference Range Interpretation Comments PTT (test code = PTT) 41.3 s 22.9-35.8 [facility] CenterMikncjcZUTVRDGXZP3984-38-94 16:51:00 Test Item Value Reference Range Interpretation Comments PT (test code = PT) 14.9 s 12.0-14.7 [facility] CenterOiknbucPOZDENYVAF4500-86-43 16:51:00 Test Item Value Reference Range Interpretation Comments INR (test code = INR) 1.18 1 0.85-1.17 [facility] CenterEqhlqqgATLCYFBAJR3077-14-22 16:51:00 Test Item Value Reference Range Interpretation Comments PTT (test code = PTT) 41.3 s 22.9-35.8 [facility] CenterItsuzkxQYBXRNPEHN1724-88-92 16:51:00 Test Item Value Reference Range Interpretation Comments PT (test code = PT) 14.9 s 12.0-14.7 [facility] CenterUxohoqyVSAIJCKQLW6241-54-73 16:51:00 Test Item Value Reference Range Interpretation Comments INR (test code = INR) 1.18 1 0.85-1.17 [facility] CenterJwkmjaoCUKLVBXOYR2242-03-15 16:51:00 Test Item Value Reference Range Interpretation Comments PTT (test code = PTT) 41.3 s 22.9-35.8 [facility] CenterYhdommsJOXRTCAKMM2025-99-41 16:51:00 Test Item Value Reference Range Interpretation Comments PT (test code = PT) 14.9 s 12.0-14.7 [facility] CenterSnwlhfiISPGEWRXZR1476-41-24 16:51:00 Test Item Value Reference Range Interpretation Comments INR (test code = INR) 1.18 1 0.85-1.17 [facility] CenterAbphgjeGPAHYCXFQQ4693-47-88 16:51:00 Test Item Value Reference Range Interpretation Comments PTT (test code = PTT) 41.3 s 22.9-35.8 [facility] CenterForvogwIJTNRTNRIO3905-95-17 16:51:00 Test Item Value Reference Range Interpretation Comments PT (test code = PT) 14.9 s 12.0-14.7 [facility] CenterAwtgyepUKYOQYQSTL7936-03-53 16:51:00 Test Item Value Reference Range Interpretation Comments INR (test code = INR) 1.18 1 0.85-1.17 [facility] CenterCmhfoiaJXCIKUZYQZ2045-80-30 16:51:00 Test Item Value Reference Range Interpretation Comments PTT (test code = PTT) 41.3 s 22.9-35.8 [facility]2022-10-14 08:42:00 Test Item Value Reference Range Interpretation Comments Magnesium Lvl (test code = Magnesium 2.2 1.8-2.4 Lvl) [address]10-14 08:42:00 Test Item Value Reference Range Interpretation Comments Glucose Lvl (test code = Glucose Lvl) 89 70-99 [place] [address]-10-14 08:42:00 Test Item Value Reference Range Interpretation Comments BUN (test code = BUN) 8 7-22 [place] [address]-10-14 08:42:00 Test Item Value Reference Range Interpretation Comments Creatinine Lvl (test code = Creatinine 0.59 0.50-1.40 Lvl) [address]10-14 08:42:00 Test Item Value Reference Range Interpretation Comments Sodium Lvl (test code = Sodium Lvl) 142 135-[address]10-14 08:42:00 Test Item Value Reference Range Interpretation Comments Potassium Lvl (test code = Potassium 3.6 3.5-5.1 Lvl) [place] 786342-10-14 08:42:00 Test Item Value Reference Range Interpretation Comments Chloride Lvl (test code = Chloride Lvl) 103 95-109 [place] [address]-10-14 08:42:00 Test Item Value Reference Range Interpretation Comments CO2 (test code = CO2) 30 24-32 [address]10-14 08:42:00 Test Item Value Reference Range Interpretation Comments Calcium Lvl (test code = Calcium Lvl) 9.8 8.5-10.5 [place] [address]-10-14 08:42:00 Test Item Value Reference Range Interpretation Comments Total Protein (test code = Total 7.0 6.4-8.4 Protein) [place] [address]-10-14 08:42:00 Test Item Value Reference Range Interpretation Comments Albumin Lvl (test code = Albumin Lvl) 2.8 3.5-5.0 [place] [address]-10-14 08:42:00 Test Item Value Reference Range Interpretation Comments ALT (test code = ALT) 20 See_Comment [Auto mated message] The system which ge nerated this result transmit fabiano reference range : <=65. The reference range was not used to interpr et this result as aleks l/abnormal. [place] 786342-10-14 08:42:00 Test Item Value Reference Range Interpretation Comments AST (test code = AST) 11 See_Comment [Auto mated message] The system which ge nerated this result transmit fabiano reference range : <=37. The reference range was not used to interpr et this result as aleks l/abnormal. [place] 786342-10-14 08:42:00 Test Item Value Reference Range Interpretation Comments Alk Phos (test code = Alk Phos) 108 39-136 [place] [address]-10-14 08:42:00 Test Item Value Reference Range Interpretation Comments Bili Total (test code = Bili Total) 0.4 0.2-1.3 [place] [address]-10-14 08:42:00 Test Item Value Reference Range Interpretation Comments AGAP (test code = AGAP) 12.6 10.0-20.0 [place] 786342-10-14 08:42:00 Test Item Value Reference Range Interpretation Comments B/C Ratio (test code = B/C Ratio) 14 1 6-25 [place] [address]-10-14 08:42:00 Test Item Value Reference Range Interpretation Comments Globulin (test code = Globulin) 4.2 2.7-4.2 [place] 786342-10-14 08:42:00 Test Item Value Reference Range Interpretation Comments A/G Ratio (test code = A/G Ratio) 0.7 1 0.7-1.6 [place] 786342-10-14 08:42:00 Test Item Value Reference Range Interpretation Comments eGFR (test code = eGFR) 108 [place] 786342-10-14 08:42:00 Test Item Value Reference Range Interpretation Comments Phosphorus (test code = Phosphorus) 5.4 2.5-4.5 [place] 439852-10-14 08:42:00 Test Item Value Reference Range Interpretation Comments WBC (test code = WBC) 12.5 3.7-10.4 [place] 439852-10-14 08:42:00 Test Item Value Reference Range Interpretation Comments RBC (test code = RBC) 3.94 4.20-5.40 [place] [address]-10-14 08:42:00 Test Item Value Reference Range Interpretation Comments Hgb (test code = Hgb) 10.6 12.0-16.0 [facility] CenterLpxcxqrVBCXMFPJJU2038-78-22 08:42:00 Test Item Value Reference Range Interpretation Comments Hct (test code = Hct) 31.6 36.0-48.0 [facility] CenterEmuhxzeLAKOKOOYAO3031-97-18 08:42:00 Test Item Value Reference Range Interpretation Comments MCV (test code = MCV) 80.2 80.0-98.0 [facility] CenterNxfrgqpXPDCASKOXE9196-16-34 08:42:00 Test Item Value Reference Range Interpretation Comments MCH (test code = MCH) 26.9 pg 27.0-31.0 [facility] CenterTtmihvsGYFKILGBCM0651-42-50 08:42:00 Test Item Value Reference Range Interpretation Comments MCHC (test code = MCHC) 33.6 32.0-36.0 [facility] CenterJbasvsjTXDUBAPZAP5849-25-19 08:42:00 Test Item Value Reference Range Interpretation Comments RDW (test code = RDW) 16.4 11.5-14.5 [facility] CenterGofcwqeYUWNZVXNIX7452-09-00 08:42:00 Test Item Value Reference Range Interpretation Comments Platelet (test code = Platelet) 339 133-450 [facility] CenterUevkrgnNTKKDGRRBX1730-16-38 08:42:00 Test Item Value Reference Range Interpretation Comments MPV (test code = MPV) 8.0 7.4-10.4 [facility] CenterPbljsywGLXTIIQYOL9963-26-51 08:42:00 Test Item Value Reference Range Interpretation Comments Segs (test code = Segs) 77.8 45.0-75.0 [facility] CenterLsmwcboLINSKSRPEV1540-20-93 08:42:00 Test Item Value Reference Range Interpretation Comments Lymphocytes (test code = Lymphocytes) 13.5 20.0-40.0 [facility] CenterGmbkdcbYZYBSFPUJH0705-02-04 08:42:00 Test Item Value Reference Range Interpretation Comments Monocytes (test code = Monocytes) 6.5 2.0-12.0 [facility] CenterEwqawoiVMIPCMPFNM4651-72-48 08:42:00 Test Item Value Reference Range Interpretation Comments Eosinophils (test code = 1.6 See_Comment [A utomated message] The Eosinophils) system which ge nerated this result tra nsmitted reference range : <=4.0. The reference r quynh was not used to int erpret this result as normal/abnormal . [place] [address]-10-14 08:42:00 Test Item Value Reference Range Interpretation Comments Basophils (test code = 0.6 See_Comment [Aut omated message] The Basophils) system which ge nerated this result tra nsmitted reference range : <=1.0. The reference r quynh was not used to int erpret this result as normal/abnormal . [place] [address]-10-14 08:42:00 Test Item Value Reference Range Interpretation Comments Neutrophils # (test code = Neutrophils 9.8 1.5-8.1 #) [place] [address]-10-14 08:42:00 Test Item Value Reference Range Interpretation Comments Lymphocytes # (test code = Lymphocytes 1.7 1.0-5.5 #) [address]10-14 08:42:00 Test Item Value Reference Range Interpretation Comments Monocytes # (test code 0.8 See_Comment [Aut omated message] The = Monocytes #) system which generated this result tra nsmitted reference range : <=0.8. The reference r quynh was not used to int erpret this result as normal/abnormal . [place] [address]-10-14 08:42:00 Test Item Value Reference Range Interpretation Comments Eosinophils # (test code 0.2 See_Comment [A utomated message] The = Eosinophils #) system whic h generated this result tra nsmitted reference range : <=0.5. The reference r quynh was not used to int erpret this result as normal/abnormal . [place] [address]-10-14 08:42:00 Test Item Value Reference Range Interpretation Comments Basophils # (test code 0.1 See_Comment [Aut omated message] The = Basophils #) system which generated this result tra nsmitted reference range : <=0.2. The reference r quynh was not used to int erpret this result as normal/abnormal . [facility] [id number] 08:42:00 Test Item Value Reference Range Interpretation Comments Magnesium Lvl (test code = Magnesium 2.2 1.8-2.4 Lvl) [facility] [id number] 08:42:00 Test Item Value Reference Range Interpretation Comments Glucose Lvl (test code = Glucose Lvl) 89 70-99 [place] [address]-10-14 08:42:00 Test Item Value Reference Range Interpretation Comments BUN (test code = BUN) 8 7-22 [place] [address]-10-14 08:42:00 Test Item Value Reference Range Interpretation Comments Creatinine Lvl (test code = Creatinine 0.59 0.50-1.40 Lvl) [address]10-14 08:42:00 Test Item Value Reference Range Interpretation Comments Sodium Lvl (test code = Sodium Lvl) 142 135-145 [address]10-14 08:42:00 Test Item Value Reference Range Interpretation Comments Potassium Lvl (test code = Potassium 3.6 3.5-5.1 Lvl) [address]10-14 08:42:00 Test Item Value Reference Range Interpretation Comments Chloride Lvl (test code = Chloride Lvl) 103 95-109 [place] 786342-10-14 08:42:00 Test Item Value Reference Range Interpretation Comments CO2 (test code = CO2) 30 24-32 [address]10-14 08:42:00 Test Item Value Reference Range Interpretation Comments Calcium Lvl (test code = Calcium Lvl) 9.8 8.5-10.5 [place] [address]-10-14 08:42:00 Test Item Value Reference Range Interpretation Comments Total Protein (test code = Total 7.0 6.4-8.4 Protein) [address]10-14 08:42:00 Test Item Value Reference Range Interpretation Comments Albumin Lvl (test code = Albumin Lvl) 2.8 3.5-5.0 [address]10-14 08:42:00 Test Item Value Reference Range Interpretation Comments ALT (test code = ALT) 20 See_Comment [Auto mated message] The system which ge nerated this result transmit fabiano reference range : <=65. The reference range was not used to interpr et this result as aleks l/abnormal. [address]10-14 08:42:00 Test Item Value Reference Range Interpretation Comments AST (test code = AST) 11 See_Comment [Auto mated message] The system which ge nerated this result transmit fabiano reference range : <=37. The reference range was not used to interpr et this result as aleks l/abnormal. [place] 786342-10-14 08:42:00 Test Item Value Reference Range Interpretation Comments Alk Phos (test code = Alk Phos) 108 39-136 [place] [address]-10-14 08:42:00 Test Item Value Reference Range Interpretation Comments Bili Total (test code = Bili Total) 0.4 0.2-1.3 [place] [address]-10-14 08:42:00 Test Item Value Reference Range Interpretation Comments AGAP (test code = AGAP) 12.6 10.0-20.0 [address]10-14 08:42:00 Test Item Value Reference Range Interpretation Comments B/C Ratio (test code = B/C Ratio) 14 1 6-25 [place] [address]-10-14 08:42:00 Test Item Value Reference Range Interpretation Comments Globulin (test code = Globulin) 4.2 2.7-4.2 [place] 786342-10-14 08:42:00 Test Item Value Reference Range Interpretation Comments A/G Ratio (test code = A/G Ratio) 0.7 1 0.7-1.6 [place] [address]-10-14 08:42:00 Test Item Value Reference Range Interpretation Comments eGFR (test code = eGFR) 108 [place] 786342-10-14 08:42:00 Test Item Value Reference Range Interpretation Comments Phosphorus (test code = Phosphorus) 5.4 2.5-4.5 [place] [address]-10-14 08:42:00 Test Item Value Reference Range Interpretation Comments WBC (test code = WBC) 12.5 3.7-10.4 [place] [address]-10-14 08:42:00 Test Item Value Reference Range Interpretation Comments RBC (test code = RBC) 3.94 4.20-5.40 [place] [address]-10-14 08:42:00 Test Item Value Reference Range Interpretation Comments Hgb (test code = Hgb) 10.6 12.0-16.0 [place] [address]-10-14 08:42:00 Test Item Value Reference Range Interpretation Comments Hct (test code = Hct) 31.6 36.0-48.0 [facility] CenterSheyeixJQIZDWEQDG3061-02-81 08:42:00 Test Item Value Reference Range Interpretation Comments MCV (test code = MCV) 80.2 80.0-98.0 [place]852-10-14 08:42:00 Test Item Value Reference Range Interpretation Comments MCH (test code = MCH) 26.9 pg 27.0-31.0 [place]852-10-14 08:42:00 Test Item Value Reference Range Interpretation Comments MCHC (test code = MCHC) 33.6 32.0-36.0 [place]852-10-14 08:42:00 Test Item Value Reference Range Interpretation Comments RDW (test code = RDW) 16.4 11.5-14.5 [place]852-10-14 08:42:00 Test Item Value Reference Range Interpretation Comments Platelet (test code = Platelet) 339 133-450 [facility] CenterJizntlzWIFEPXLZZV1181-95-41 08:42:00 Test Item Value Reference Range Interpretation Comments MPV (test code = MPV) 8.0 7.4-10.4 [place] [address]-10-14 08:42:00 Test Item Value Reference Range Interpretation Comments Segs (test code = Segs) 77.8 45.0-75.0 [facility] CenterDiseolrXVVZULTTII8160-13-60 08:42:00 Test Item Value Reference Range Interpretation Comments Lymphocytes (test code = Lymphocytes) 13.5 20.0-40.0 [facility] CenterLukaiopFZZVJFCXAI6715-23-99 08:42:00 Test Item Value Reference Range Interpretation Comments Monocytes (test code = Monocytes) 6.5 2.0-12.0 [place] [address]-10-14 08:42:00 Test Item Value Reference Range Interpretation Comments Eosinophils (test code = 1.6 See_Comment [A utomated message] The Eosinophils) system which ge nerated this result tra nsmitted reference range : <=4.0. The reference r quynh was not used to int erpret this result as normal/abnormal . [place]852-10-14 08:42:00 Test Item Value Reference Range Interpretation Comments Basophils (test code = 0.6 See_Comment [Aut omated message] The Basophils) system which ge nerated this result tra nsmitted reference range : <=1.0. The reference r quynh was not used to int erpret this result as normal/abnormal . [place] [address]-10-14 08:42:00 Test Item Value Reference Range Interpretation Comments Neutrophils # (test code = Neutrophils 9.8 1.5-8.1 #) [place] [address]-10-14 08:42:00 Test Item Value Reference Range Interpretation Comments Lymphocytes # (test code = Lymphocytes 1.7 1.0-5.5 #) [place] [address]-10-14 08:42:00 Test Item Value Reference Range Interpretation Comments Monocytes # (test code 0.8 See_Comment [Aut omated message] The = Monocytes #) system which generated this result tra nsmitted reference range : <=0.8. The reference r quynh was not used to int erpret this result as normal/abnormal . [place] [address]-10-14 08:42:00 Test Item Value Reference Range Interpretation Comments Eosinophils # (test code 0.2 See_Comment [A utomated message] The = Eosinophils #) system whic h generated this result tra nsmitted reference range : <=0.5. The reference r quynh was not used to int erpret this result as normal/abnormal . [place] [address]-10-14 08:42:00 Test Item Value Reference Range Interpretation Comments Basophils # (test code 0.1 See_Comment [Aut omated message] The = Basophils #) system which generated this result tra nsmitted reference range : <=0.2. The reference r quynh was not used to int erpret this result as normal/abnormal . [place] [address]-10-14 08:42:00 Test Item Value Reference Range Interpretation Comments Magnesium Lvl (test code = Magnesium 2.2 1.8-2.4 Lvl) [place] [address]-10-14 08:42:00 Test Item Value Reference Range Interpretation Comments Glucose Lvl (test code = Glucose Lvl) 89 70-99 [place] [address]-10-14 08:42:00 Test Item Value Reference Range Interpretation Comments BUN (test code = BUN) 8 7-22 [place] [address]-10-14 08:42:00 Test Item Value Reference Range Interpretation Comments Creatinine Lvl (test code = Creatinine 0.59 0.50-1.40 Lvl) [place] 786342-10-14 08:42:00 Test Item Value Reference Range Interpretation Comments Sodium Lvl (test code = Sodium Lvl) 142 135-145 [place] 786342-10-14 08:42:00 Test Item Value Reference Range Interpretation Comments Potassium Lvl (test code = Potassium 3.6 3.5-5.1 Lvl) [address]10-14 08:42:00 Test Item Value Reference Range Interpretation Comments Chloride Lvl (test code = Chloride Lvl) 103 95-109 [address]10-14 08:42:00 Test Item Value Reference Range Interpretation Comments CO2 (test code = CO2) 30 24-32 [place] [address]-10-14 08:42:00 Test Item Value Reference Range Interpretation Comments Calcium Lvl (test code = Calcium Lvl) 9.8 8.5-10.5 [place] [address]-10-14 08:42:00 Test Item Value Reference Range Interpretation Comments Total Protein (test code = Total 7.0 6.4-8.4 Protein) [place] [address]-10-14 08:42:00 Test Item Value Reference Range Interpretation Comments Albumin Lvl (test code = Albumin Lvl) 2.8 3.5-5.0 [place] 786342-10-14 08:42:00 Test Item Value Reference Range Interpretation Comments ALT (test code = ALT) 20 See_Comment [Auto mated message] The system which [employer] nerated this result transmit fabiano reference range : <=65. The reference range was not used to interpr et this result as aleks l/abnormal. [place] [address]-10-14 08:42:00 Test Item Value Reference Range Interpretation Comments AST (test code = AST) 11 See_Comment [Auto mated message] The system which [employer] nerated this result transmit fabiano reference range : <=37. The reference range was not used to interpr et this result as aleks l/abnormal. [place] [address]-10-14 08:42:00 Test Item Value Reference Range Interpretation Comments Alk Phos (test code = Alk Phos) 108 39-136 [place] [address]-10-14 08:42:00 Test Item Value Reference Range Interpretation Comments Bili Total (test code = Bili Total) 0.4 0.2-1.3 [place] [address]-10-14 08:42:00 Test Item Value Reference Range Interpretation Comments AGAP (test code = AGAP) 12.6 10.0-20.0 [place] [address]-10-14 08:42:00 Test Item Value Reference Range Interpretation Comments B/C Ratio (test code = B/C Ratio) 14 1 6-25 [address]10-14 08:42:00 Test Item Value Reference Range Interpretation Comments Globulin (test code = Globulin) 4.2 2.7-4.2 [place] [address]-10-14 08:42:00 Test Item Value Reference Range Interpretation Comments A/G Ratio (test code = A/G Ratio) 0.7 1 0.7-1.6 [place] [address]-10-14 08:42:00 Test Item Value Reference Range Interpretation Comments eGFR (test code = eGFR) 108 [place] 786342-10-14 08:42:00 Test Item Value Reference Range Interpretation Comments Phosphorus (test code = Phosphorus) 5.4 2.5-4.5 [place] [address]-10-14 08:42:00 Test Item Value Reference Range Interpretation Comments WBC (test code = WBC) 12.5 3.7-10.4 [place] [address]-10-14 08:42:00 Test Item Value Reference Range Interpretation Comments RBC (test code = RBC) 3.94 4.20-5.40 [place] [address]-10-14 08:42:00 Test Item Value Reference Range Interpretation Comments Hgb (test code = Hgb) 10.6 12.0-16.0 [place] [address]-10-14 08:42:00 Test Item Value Reference Range Interpretation Comments Hct (test code = Hct) 31.6 36.0-48.0 [place] [address]-10-14 08:42:00 Test Item Value Reference Range Interpretation Comments MCV (test code = MCV) 80.2 80.0-98.0 [place] [address]-10-14 08:42:00 Test Item Value Reference Range Interpretation Comments MCH (test code = MCH) 26.9 pg 27.0-31.0 [facility] CenterXpvxyqmZQKRNCULAO7697-36-78 08:42:00 Test Item Value Reference Range Interpretation Comments MCHC (test code = MCHC) 33.6 32.0-36.0 [facility] CenterByqyvoxDWPGZCYDCS7909-28-29 08:42:00 Test Item Value Reference Range Interpretation Comments RDW (test code = RDW) 16.4 11.5-14.5 [facility] CenterGwrqzadIONIYPZIIB6676-61-37 08:42:00 Test Item Value Reference Range Interpretation Comments Platelet (test code = Platelet) 339 133-450 [facility] CenterShpujyvDJPMIDZMYS7802-80-75 08:42:00 Test Item Value Reference Range Interpretation Comments MPV (test code = MPV) 8.0 7.4-10.4 [place]852-10-14 08:42:00 Test Item Value Reference Range Interpretation Comments Segs (test code = Segs) 77.8 45.0-75.0 [facility] CenterOklkhmtIXLZWKBTFM6028-68-41 08:42:00 Test Item Value Reference Range Interpretation Comments Lymphocytes (test code = Lymphocytes) 13.5 20.0-40.0 [place] 439852-10-14 08:42:00 Test Item Value Reference Range Interpretation Comments Monocytes (test code = Monocytes) 6.5 2.0-12.0 [facility] CenterTxanqkhULOYCEVDHZ0083-26-75 08:42:00 Test Item Value Reference Range Interpretation Comments Eosinophils (test code = 1.6 See_Comment [A utomated message] The Eosinophils) system which ge nerated this result tra nsmitted reference range : <=4.0. The reference r quynh was not used to int erpret this result as normal/abnormal . [facility] CenterHyhkxwoEOYWYXPITI0418-31-33 08:42:00 Test Item Value Reference Range Interpretation Comments Basophils (test code = 0.6 See_Comment [Aut omated message] The Basophils) system which ge nerated this result tra nsmitted reference range : <=1.0. The reference r quynh was not used to int erpret this result as normal/abnormal . [place]852-10-14 08:42:00 Test Item Value Reference Range Interpretation Comments Neutrophils # (test code = Neutrophils 9.8 1.5-8.1 #) [place] [address]-10-14 08:42:00 Test Item Value Reference Range Interpretation Comments Lymphocytes # (test code = Lymphocytes 1.7 1.0-5.5 #) [place] [address]-10-14 08:42:00 Test Item Value Reference Range Interpretation Comments Monocytes # (test code 0.8 See_Comment [Aut omated message] The = Monocytes #) system which generated this result tra nsmitted reference range : <=0.8. The reference r quynh was not used to int erpret this result as normal/abnormal . [place]852-10-14 08:42:00 Test Item Value Reference Range Interpretation Comments Eosinophils # (test code 0.2 See_Comment [A utomated message] The = Eosinophils #) system whic h generated this result tra nsmitted reference range : <=0.5. The reference r quynh was not used to int erpret this result as normal/abnormal . [place] 439852-10-14 08:42:00 Test Item Value Reference Range Interpretation Comments Basophils # (test code 0.1 See_Comment [Aut omated message] The = Basophils #) system which generated this result tra nsmitted reference range : <=0.2. The reference r quynh was not used to int erpret this result as normal/abnormal . [place] 786342-10-14 08:42:00 Test Item Value Reference Range Interpretation Comments Magnesium Lvl (test code = Magnesium 2.2 1.8-2.4 Lvl) [place] 786342-10-14 08:42:00 Test Item Value Reference Range Interpretation Comments Glucose Lvl (test code = Glucose Lvl) 89 70-99 [place] [address]-10-14 08:42:00 Test Item Value Reference Range Interpretation Comments BUN (test code = BUN) 8 7-22 [place] 786342-10-14 08:42:00 Test Item Value Reference Range Interpretation Comments Creatinine Lvl (test code = Creatinine 0.59 0.50-1.40 Lvl) [place] [address]-10-14 08:42:00 Test Item Value Reference Range Interpretation Comments Sodium Lvl (test code = Sodium Lvl) 142 135-145 [address]10-14 08:42:00 Test Item Value Reference Range Interpretation Comments Potassium Lvl (test code = Potassium 3.6 3.5-5.1 Lvl) [address]10-14 08:42:00 Test Item Value Reference Range Interpretation Comments Chloride Lvl (test code = Chloride Lvl) 103 95-109 [address]10-14 08:42:00 Test Item Value Reference Range Interpretation Comments CO2 (test code = CO2) 30 24-32 [address]10-14 08:42:00 Test Item Value Reference Range Interpretation Comments Calcium Lvl (test code = Calcium Lvl) 9.8 8.5-10.5 [address]10-14 08:42:00 Test Item Value Reference Range Interpretation Comments Total Protein (test code = Total 7.0 6.4-8.4 Protein) [address]10-14 08:42:00 Test Item Value Reference Range Interpretation Comments Albumin Lvl (test code = Albumin Lvl) 2.8 3.5-5.0 [address]10-14 08:42:00 Test Item Value Reference Range Interpretation Comments ALT (test code = ALT) 20 See_Comment [Auto mated message] The system which ge nerated this result transmit fabiano reference range : <=65. The reference range was not used to interpr et this result as aleks l/abnormal. [address]10-14 08:42:00 Test Item Value Reference Range Interpretation Comments AST (test code = AST) 11 See_Comment [Auto mated message] The system which ge nerated this result transmit fabiano reference range : <=37. The reference range was not used to interpr et this result as aleks l/abnormal. [address]10-14 08:42:00 Test Item Value Reference Range Interpretation Comments Alk Phos (test code = Alk Phos) 108 39-136 [place] [address]-10-14 08:42:00 Test Item Value Reference Range Interpretation Comments Bili Total (test code = Bili Total) 0.4 0.2-1.3 [address]10-14 08:42:00 Test Item Value Reference Range Interpretation Comments AGAP (test code = AGAP) 12.6 10.0-20.0 [place] 786342-10-14 08:42:00 Test Item Value Reference Range Interpretation Comments B/C Ratio (test code = B/C Ratio) 14 1 6-25 [place] [address]-10-14 08:42:00 Test Item Value Reference Range Interpretation Comments Globulin (test code = Globulin) 4.2 2.7-4.2 [place] 786342-10-14 08:42:00 Test Item Value Reference Range Interpretation Comments A/G Ratio (test code = A/G Ratio) 0.7 1 0.7-1.6 [place] [address]-10-14 08:42:00 Test Item Value Reference Range Interpretation Comments eGFR (test code = eGFR) 108 [place] 786342-10-14 08:42:00 Test Item Value Reference Range Interpretation Comments Phosphorus (test code = Phosphorus) 5.4 2.5-4.5 [place] 439852-10-14 08:42:00 Test Item Value Reference Range Interpretation Comments WBC (test code = WBC) 12.5 3.7-10.4 [place] 439852-10-14 08:42:00 Test Item Value Reference Range Interpretation Comments RBC (test code = RBC) 3.94 4.20-5.40 [place] 439852-10-14 08:42:00 Test Item Value Reference Range Interpretation Comments Hgb (test code = Hgb) 10.6 12.0-16.0 [place] 439852-10-14 08:42:00 Test Item Value Reference Range Interpretation Comments Hct (test code = Hct) 31.6 36.0-48.0 [place] [address]-10-14 08:42:00 Test Item Value Reference Range Interpretation Comments MCV (test code = MCV) 80.2 80.0-98.0 [place] [address]-10-14 08:42:00 Test Item Value Reference Range Interpretation Comments MCH (test code = MCH) 26.9 pg 27.0-31.0 [place] [address]-10-14 08:42:00 Test Item Value Reference Range Interpretation Comments MCHC (test code = MCHC) 33.6 32.0-36.0 [place] 439852-10-14 08:42:00 Test Item Value Reference Range Interpretation Comments RDW (test code = RDW) 16.4 11.5-14.5 [place] [address]-10-14 08:42:00 Test Item Value Reference Range Interpretation Comments Platelet (test code = Platelet) 339 133-450 [place] 439852-10-14 08:42:00 Test Item Value Reference Range Interpretation Comments MPV (test code = MPV) 8.0 7.4-10.4 [place] 439852-10-14 08:42:00 Test Item Value Reference Range Interpretation Comments Segs (test code = Segs) 77.8 45.0-75.0 [place] [address]-10-14 08:42:00 Test Item Value Reference Range Interpretation Comments Lymphocytes (test code = Lymphocytes) 13.5 20.0-40.0 [place] [address]-10-14 08:42:00 Test Item Value Reference Range Interpretation Comments Monocytes (test code = Monocytes) 6.5 2.0-12.0 [place] 439852-10-14 08:42:00 Test Item Value Reference Range Interpretation Comments Eosinophils (test code = 1.6 See_Comment [A utomated message] The Eosinophils) system which ge nerated this result tra nsmitted reference range : <=4.0. The reference r quynh was not used to int erpret this result as normal/abnormal . [facility] CenterAgavrwbSVLNHLKILJ6199-68-40 08:42:00 Test Item Value Reference Range Interpretation Comments Basophils (test code = 0.6 See_Comment [Aut omated message] The Basophils) system which ge nerated this result tra nsmitted reference range : <=1.0. The reference r quynh was not used to int erpret this result as normal/abnormal . [place] 439852-10-14 08:42:00 Test Item Value Reference Range Interpretation Comments Neutrophils # (test code = Neutrophils 9.8 1.5-8.1 #) [place] [address]-10-14 08:42:00 Test Item Value Reference Range Interpretation Comments Lymphocytes # (test code = Lymphocytes 1.7 1.0-5.5 #) [place] [address]-10-14 08:42:00 Test Item Value Reference Range Interpretation Comments Monocytes # (test code 0.8 See_Comment [Aut omated message] The = Monocytes #) system which generated this result tra nsmitted reference range : <=0.8. The reference r quynh was not used to int erpret this result as normal/abnormal . [place] 439852-10-14 08:42:00 Test Item Value Reference Range Interpretation Comments Eosinophils # (test code 0.2 See_Comment [A utomated message] The = Eosinophils #) system whic h generated this result tra nsmitted reference range : <=0.5. The reference r quynh was not used to int erpret this result as normal/abnormal . [facility] CenterIzwgitaFSWTXYBHRT9769-09-98 08:42:00 Test Item Value Reference Range Interpretation Comments Basophils # (test code 0.1 See_Comment [Aut omated message] The = Basophils #) system which generated this result tra nsmitted reference range : <=0.2. The reference r quynh was not used to int erpret this result as normal/abnormal . [facility] [id number] 08:42:00 Test Item Value Reference Range Interpretation Comments Magnesium Lvl (test code = Magnesium 2.2 1.8-2.4 Lvl) [place] 786342-10-14 08:42:00 Test Item Value Reference Range Interpretation Comments Glucose Lvl (test code = Glucose Lvl) [facility]2022-10-14 08:42:00 Test Item Value Reference Range Interpretation Comments BUN (test code = BUN) 01-18 [facility] [id number] 08:42:00 Test Item Value Reference Range Interpretation Comments Magnesium Lvl (test code = Magnesium 2.2 1.8-2.4 Lvl) [facility] [id number] 08:42:00 Test Item Value Reference Range Interpretation Comments Glucose Lvl (test code = Glucose Lvl) [facility] [id number] 08:42:00 Test Item Value Reference Range Interpretation Comments BUN (test code = BUN) 01-18 [facility] [id number] 08:42:00 Test Item Value Reference Range Interpretation Comments Creatinine Lvl (test code = Creatinine 0.59 0.50-1.40 Lvl) [place] [address]-10-14 08:42:00 Test Item Value Reference Range Interpretation Comments Sodium Lvl (test code = Sodium Lvl) 142 135-145 [place] [address]-10-14 08:42:00 Test Item Value Reference Range Interpretation Comments Potassium Lvl (test code = Potassium 3.6 3.5-5.1 Lvl) [place] [address]-10-14 08:42:00 Test Item Value Reference Range Interpretation Comments Chloride Lvl (test code = Chloride Lvl) 103 95-109 [address]10-14 08:42:00 Test Item Value Reference Range Interpretation Comments CO2 (test code = CO2) 30 24-32 [place] [address]-10-14 08:42:00 Test Item Value Reference Range Interpretation Comments Calcium Lvl (test code = Calcium Lvl) 9.8 8.5-10.5 [place] [address]-10-14 08:42:00 Test Item Value Reference Range Interpretation Comments Total Protein (test code = Total 7.0 6.4-8.4 Protein) [address]10-14 08:42:00 Test Item Value Reference Range Interpretation Comments Creatinine Lvl (test code = Creatinine 0.59 0.50-1.40 Lvl) [address]10-14 08:42:00 Test Item Value Reference Range Interpretation Comments Albumin Lvl (test code = Albumin Lvl) 2.8 3.5-5.0 [place] [address]-10-14 08:42:00 Test Item Value Reference Range Interpretation Comments ALT (test code = ALT) 20 See_Comment [Auto mated message] The system which ge nerated this result transmit fabiano reference range : <=65. The reference range was not used to interpr et this result as aleks l/abnormal. [place] [address]-10-14 08:42:00 Test Item Value Reference Range Interpretation Comments AST (test code = AST) 11 See_Comment [Auto mated message] The system which ge nerated this result transmit fabiano reference range : <=37. The reference range was not used to interpr et this result as aleks l/abnormal. [facility] [id number] 08:42:00 Test Item Value Reference Range Interpretation Comments Alk Phos (test code = Alk Phos) 108 39-136 [place] 786342-10-14 08:42:00 Test Item Value Reference Range Interpretation Comments Bili Total (test code = Bili Total) 0.4 0.2-1.3 [place] 786342-10-14 08:42:00 Test Item Value Reference Range Interpretation Comments AGAP (test code = AGAP) 12.6 10.0-20.0 [place] 786342-10-14 08:42:00 Test Item Value Reference Range Interpretation Comments B/C Ratio (test code = B/C Ratio) 14 1 6-25 [place] 786342-10-14 08:42:00 Test Item Value Reference Range Interpretation Comments Globulin (test code = Globulin) 4.2 2.7-4.2 [place] 786342-10-14 08:42:00 Test Item Value Reference Range Interpretation Comments A/G Ratio (test code = A/G Ratio) 0.7 1 0.7-1.6 [place] [address]-10-14 08:42:00 Test Item Value Reference Range Interpretation Comments eGFR (test code = eGFR) 108 [place] 786342-10-14 08:42:00 Test Item Value Reference Range Interpretation Comments Sodium Lvl (test code = Sodium Lvl) 142 135-145 [place] 786342-10-14 08:42:00 Test Item Value Reference Range Interpretation Comments Phosphorus (test code = Phosphorus) 5.4 2.5-4.5 [place] 439852-10-14 08:42:00 Test Item Value Reference Range Interpretation Comments WBC (test code = WBC) 12.5 3.7-10.4 [place] [address]-10-14 08:42:00 Test Item Value Reference Range Interpretation Comments RBC (test code = RBC) 3.94 4.20-5.40 [place] 439852-10-14 08:42:00 Test Item Value Reference Range Interpretation Comments Hgb (test code = Hgb) 10.6 12.0-16.0 [place] 439852-10-14 08:42:00 Test Item Value Reference Range Interpretation Comments Hct (test code = Hct) 31.6 36.0-48.0 [facility] DallasSdodwuiGWYPCIIYEH9123-04-01 08:42:00 Test Item Value Reference Range Interpretation Comments MCV (test code = MCV) 80.2 80.0-98.0 [facility] DallasXlfaqwzDIRGDAKYAC2092-68-40 08:42:00 Test Item Value Reference Range Interpretation Comments MCH (test code = MCH) 26.9 pg 27.0-31.0 [facility]LktppjrPVARGEXBRP2049-83-75 08:42:00 Test Item Value Reference Range Interpretation Comments MCHC (test code = MCHC) 33.6 32.0-36.0 [facility] DallasVelxrqmZGGOVRKKRE1872-88-73 08:42:00 Test Item Value Reference Range Interpretation Comments RDW (test code = RDW) 16.4 11.5-14.5 [facility] DallasHhfqeupVMYRQHPTBE4729-06-29 08:42:00 Test Item Value Reference Range Interpretation Comments Platelet (test code = Platelet) 339 133-450 [facility]2022-10-14 08:42:00 Test Item Value Reference Range Interpretation Comments Potassium Lvl (test code = Potassium 3.6 3.5-5.1 Lvl) [facility] CenterCxftdhhAWFVGWFXWQ3942-53-79 08:42:00 Test Item Value Reference Range Interpretation Comments MPV (test code = MPV) 8.0 7.4-10.4 [facility] MichiganOrgltshRQSFDHAZRY0413-47-55 08:42:00 Test Item Value Reference Range Interpretation Comments Segs (test code = Segs) 77.8 45.0-75.0 [facility] CenterMwgpvptUPNHMMJBJW7638-13-99 08:42:00 Test Item Value Reference Range Interpretation Comments Lymphocytes (test code = Lymphocytes) 13.5 20.0-40.0 [facility] MichiganKvwviuuISFPYZJJZR1629-69-23 08:42:00 Test Item Value Reference Range Interpretation Comments Monocytes (test code = Monocytes) 6.5 2.0-12.0 [facility] MichiganFkcvsogLUVZHVFPXQ7488-88-72 08:42:00 Test Item Value Reference Range Interpretation Comments Eosinophils (test code = 1.6 See_Comment [A utomated message] The Eosinophils) system which ge nerated this result tra nsmitted reference range : <=4.0. The reference r quynh was not used to int erpret this result as normal/abnormal . [place] [address]-10-14 08:42:00 Test Item Value Reference Range Interpretation Comments Basophils (test code = 0.6 See_Comment [Aut omated message] The Basophils) system which ge nerated this result tra nsmitted reference range : <=1.0. The reference r quynh was not used to int erpret this result as normal/abnormal . [place] [address]-10-14 08:42:00 Test Item Value Reference Range Interpretation Comments Neutrophils # (test code = Neutrophils 9.8 1.5-8.1 #) [place] [address]-10-14 08:42:00 Test Item Value Reference Range Interpretation Comments Lymphocytes # (test code = Lymphocytes 1.7 1.0-5.5 #) [place] [address]-10-14 08:42:00 Test Item Value Reference Range Interpretation Comments Monocytes # (test code 0.8 See_Comment [Aut omated message] The = Monocytes #) system which generated this result tra nsmitted reference range : <=0.8. The reference r quynh was not used to int erpret this result as normal/abnormal . [place] [address]-10-14 08:42:00 Test Item Value Reference Range Interpretation Comments Eosinophils # (test code 0.2 See_Comment [A utomated message] The = Eosinophils #) system whic h generated this result tra nsmitted reference range : <=0.5. The reference r quynh was not used to int erpret this result as normal/abnormal . [facility] [id number] 08:42:00 Test Item Value Reference Range Interpretation Comments Chloride Lvl (test code = Chloride Lvl) 103 95-109 [place] 439852-10-14 08:42:00 Test Item Value Reference Range Interpretation Comments Basophils # (test code 0.1 See_Comment [Aut omated message] The = Basophils #) system which generated this result tra nsmitted reference range : <=0.2. The reference r quynh was not used to int erpret this result as normal/abnormal . [place] 786342-10-14 08:42:00 Test Item Value Reference Range Interpretation Comments CO2 (test code = CO2) 30 24-32 [facility] [id number] 08:42:00 Test Item Value Reference Range Interpretation Comments Calcium Lvl (test code = Calcium Lvl) 9.8 8.5-10.5 [facility] [id number] 08:42:00 Test Item Value Reference Range Interpretation Comments Total Protein (test code = Total 7.0 6.4-8.4 Protein) [place] 786342-10-14 08:42:00 Test Item Value Reference Range Interpretation Comments Albumin Lvl (test code = Albumin Lvl) 2.8 3.5-5.0 [facility] [id number] 08:42:00 Test Item Value Reference Range Interpretation Comments ALT (test code = ALT) 20 See_Comment [Auto mated message] The system which ge nerated this result transmit fabiano reference range : <=65. The reference range was not used to interpr et this result as aleks l/abnormal. [facility] [id number] 08:42:00 Test Item Value Reference Range Interpretation Comments AST (test code = AST) 11 See_Comment [Auto mated message] The system which ge nerated this result transmit fabiano reference range : <=37. The reference range was not used to interpr et this result as aleks l/abnormal. [facility] [employer] [id number] 08:42:00 Test Item Value Reference Range Interpretation Comments Alk Phos (test code = Alk Phos) 108 39-136 [facility] [id number] 08:42:00 Test Item Value Reference Range Interpretation Comments Bili Total (test code = Bili Total) 0.4 0.2-1.3 [facility] [id number] 08:42:00 Test Item Value Reference Range Interpretation Comments AGAP (test code = AGAP) 12.6 10.0-20.0 [facility] [id number] 08:42:00 Test Item Value Reference Range Interpretation Comments B/C Ratio (test code = B/C Ratio) 14 1 6-25 [facility] [id number] 08:42:00 Test Item Value Reference Range Interpretation Comments Globulin (test code = Globulin) 4.2 2.7-4.2 [facility] [employer] [id number] 08:42:00 Test Item Value Reference Range Interpretation Comments A/G Ratio (test code = A/G Ratio) 0.7 1 0.7-1.6 [place] 786342-10-14 08:42:00 Test Item Value Reference Range Interpretation Comments eGFR (test code = eGFR) 108 [place] 786342-10-14 08:42:00 Test Item Value Reference Range Interpretation Comments Phosphorus (test code = Phosphorus) 5.4 2.5-4.5 [place] 439852-10-14 08:42:00 Test Item Value Reference Range Interpretation Comments WBC (test code = WBC) 12.5 3.7-10.4 [place] [address]-10-14 08:42:00 Test Item Value Reference Range Interpretation Comments RBC (test code = RBC) 3.94 4.20-5.40 [place] 439852-10-14 08:42:00 Test Item Value Reference Range Interpretation Comments Hgb (test code = Hgb) 10.6 12.0-16.0 [place] [address]-10-14 08:42:00 Test Item Value Reference Range Interpretation Comments Hct (test code = Hct) 31.6 36.0-48.0 [place] [address]-10-14 08:42:00 Test Item Value Reference Range Interpretation Comments MCV (test code = MCV) 80.2 80.0-98.0 [place] [address]-10-14 08:42:00 Test Item Value Reference Range Interpretation Comments MCH (test code = MCH) 26.9 pg 27.0-31.0 [place] [address]-10-14 08:42:00 Test Item Value Reference Range Interpretation Comments MCHC (test code = MCHC) 33.6 32.0-36.0 [place] [address]-10-14 08:42:00 Test Item Value Reference Range Interpretation Comments RDW (test code = RDW) 16.4 11.5-14.5 [place] [address]-10-14 08:42:00 Test Item Value Reference Range Interpretation Comments Platelet (test code = Platelet) 339 133-450 [place] 786342-10-14 08:42:00 Test Item Value Reference Range Interpretation Comments Magnesium Lvl (test code = Magnesium 2.2 1.8-2.4 Lvl) [place] 786342-10-14 08:42:00 Test Item Value Reference Range Interpretation Comments Glucose Lvl (test code = Glucose Lvl) 89 70-99 [place] [address]-10-14 08:42:00 Test Item Value Reference Range Interpretation Comments BUN (test code = BUN) 8 7-22 [place] [address]-10-14 08:42:00 Test Item Value Reference Range Interpretation Comments Creatinine Lvl (test code = Creatinine 0.59 0.50-1.40 Lvl) [place] 786342-10-14 08:42:00 Test Item Value Reference Range Interpretation Comments Sodium Lvl (test code = Sodium Lvl) 142 135-145 [place] [address]-10-14 08:42:00 Test Item Value Reference Range Interpretation Comments Potassium Lvl (test code = Potassium 3.6 3.5-5.1 Lvl) [place] 786342-10-14 08:42:00 Test Item Value Reference Range Interpretation Comments Chloride Lvl (test code = Chloride Lvl) 103 95-109 [place] 786342-10-14 08:42:00 Test Item Value Reference Range Interpretation Comments CO2 (test code = CO2) 30 24-32 [place] [address]-10-14 08:42:00 Test Item Value Reference Range Interpretation Comments Calcium Lvl (test code = Calcium Lvl) 9.8 8.5-10.5 [place] 439852-10-14 08:42:00 Test Item Value Reference Range Interpretation Comments MPV (test code = MPV) 8.0 7.4-10.4 [place] [address]-10-14 08:42:00 Test Item Value Reference Range Interpretation Comments Total Protein (test code = Total 7.0 6.4-8.4 Protein) [place] [address]-10-14 08:42:00 Test Item Value Reference Range Interpretation Comments Albumin Lvl (test code = Albumin Lvl) 2.8 3.5-5.0 [place] [address]-10-14 08:42:00 Test Item Value Reference Range Interpretation Comments ALT (test code = ALT) 20 See_Comment [Auto mated message] The system which ge nerated this result transmit fabiano reference range : <=65. The reference range was not used to interpr et this result as aleks l/abnormal. [place] 786342-10-14 08:42:00 Test Item Value Reference Range Interpretation Comments AST (test code = AST) 11 See_Comment [Auto mated message] The system which ge nerated this result transmit fabiano reference range : <=37. The reference range was not used to interpr et this result as aleks l/abnormal. [place] 786342-10-14 08:42:00 Test Item Value Reference Range Interpretation Comments Alk Phos (test code = Alk Phos) 108 39-136 [place] 786342-10-14 08:42:00 Test Item Value Reference Range Interpretation Comments Bili Total (test code = Bili Total) 0.4 0.2-1.3 [place] 786342-10-14 08:42:00 Test Item Value Reference Range Interpretation Comments AGAP (test code = AGAP) 12.6 10.0-20.0 [place] 786342-10-14 08:42:00 Test Item Value Reference Range Interpretation Comments B/C Ratio (test code = B/C Ratio) 14 1 6-25 [place] [address]-10-14 08:42:00 Test Item Value Reference Range Interpretation Comments Globulin (test code = Globulin) 4.2 2.7-4.2 [place] 786342-10-14 08:42:00 Test Item Value Reference Range Interpretation Comments A/G Ratio (test code = A/G Ratio) 0.7 1 0.7-1.6 [place] 439852-10-14 08:42:00 Test Item Value Reference Range Interpretation Comments Segs (test code = Segs) 77.8 45.0-75.0 [place] 786342-10-14 08:42:00 Test Item Value Reference Range Interpretation Comments eGFR (test code = eGFR) 108 [place] 786342-10-14 08:42:00 Test Item Value Reference Range Interpretation Comments Phosphorus (test code = Phosphorus) 5.4 2.5-4.5 [place] 439852-10-14 08:42:00 Test Item Value Reference Range Interpretation Comments WBC (test code = WBC) 12.5 3.7-10.4 [place] 439852-10-14 08:42:00 Test Item Value Reference Range Interpretation Comments RBC (test code = RBC) 3.94 4.20-5.40 [facility] CenterTwmbvpqASMYWYEMIO5907-37-43 08:42:00 Test Item Value Reference Range Interpretation Comments Hgb (test code = Hgb) 10.6 12.0-16.0 [place] 439852-10-14 08:42:00 Test Item Value Reference Range Interpretation Comments Hct (test code = Hct) 31.6 36.0-48.0 [facility] CenterTwpcnqaBNQYOVGXBF5074-49-64 08:42:00 Test Item Value Reference Range Interpretation Comments MCV (test code = MCV) 80.2 80.0-98.0 [facility] CenterYpnypwyLPRYBOCCZJ2851-92-17 08:42:00 Test Item Value Reference Range Interpretation Comments MCH (test code = MCH) 26.9 pg 27.0-31.0 [facility] CenterQnbxynkRDVZNJKNNM2039-03-91 08:42:00 Test Item Value Reference Range Interpretation Comments MCHC (test code = MCHC) 33.6 32.0-36.0 [facility] CenterIqltbwuCUGXZHLVYZ1689-23-04 08:42:00 Test Item Value Reference Range Interpretation Comments RDW (test code = RDW) 16.4 11.5-14.5 [facility] CenterXllbopoKDOPVFWKBE3446-80-02 08:42:00 Test Item Value Reference Range Interpretation Comments Lymphocytes (test code = Lymphocytes) 13.5 20.0-40.0 [facility] CenterTxxfzorSTOUQJFHJV2594-27-19 08:42:00 Test Item Value Reference Range Interpretation Comments Platelet (test code = Platelet) 339 133-450 [facility] CenterTjlyecgOGWJARFIOQ7391-58-41 08:42:00 Test Item Value Reference Range Interpretation Comments MPV (test code = MPV) 8.0 7.4-10.4 [facility] CenterTusmeqmKSZJWFIWOY2768-15-50 08:42:00 Test Item Value Reference Range Interpretation Comments Segs (test code = Segs) 77.8 45.0-75.0 [facility] CenterJlcicvfWXZZXSSYJO5878-93-18 08:42:00 Test Item Value Reference Range Interpretation Comments Lymphocytes (test code = Lymphocytes) 13.5 20.0-40.0 [facility] CenterDcmfaqwJCWWQSLMZU4670-41-94 08:42:00 Test Item Value Reference Range Interpretation Comments Monocytes (test code = Monocytes) 6.5 2.0-12.0 [place] [address]-10-14 08:42:00 Test Item Value Reference Range Interpretation Comments Eosinophils (test code = 1.6 See_Comment [A utomated message] The Eosinophils) system which ge nerated this result tra nsmitted reference range : <=4.0. The reference r quynh was not used to int erpret this result as normal/abnormal . [place] [address]-10-14 08:42:00 Test Item Value Reference Range Interpretation Comments Basophils (test code = 0.6 See_Comment [Aut omated message] The Basophils) system which ge nerated this result tra nsmitted reference range : <=1.0. The reference r quynh was not used to int erpret this result as normal/abnormal . [place] [address]-10-14 08:42:00 Test Item Value Reference Range Interpretation Comments Neutrophils # (test code = Neutrophils 9.8 1.5-8.1 #) [place] [address]-10-14 08:42:00 Test Item Value Reference Range Interpretation Comments Lymphocytes # (test code = Lymphocytes 1.7 1.0-5.5 #) [place] [address]-10-14 08:42:00 Test Item Value Reference Range Interpretation Comments Monocytes # (test code 0.8 See_Comment [Aut omated message] The = Monocytes #) system which generated this result tra nsmitted reference range : <=0.8. The reference r quynh was not used to int erpret this result as normal/abnormal . [place] 439852-10-14 08:42:00 Test Item Value Reference Range Interpretation Comments Monocytes (test code = Monocytes) 6.5 2.0-12.0 [place] [address]-10-14 08:42:00 Test Item Value Reference Range Interpretation Comments Eosinophils # (test code 0.2 See_Comment [A utomated message] The = Eosinophils #) system ic h generated this result tra nsmitted reference range : <=0.5. The reference r quynh was not used to int erpret this result as normal/abnormal . [place] [address]-10-14 08:42:00 Test Item Value Reference Range Interpretation Comments Basophils # (test code 0.1 See_Comment [Aut omated message] The = Basophils #) system which generated this result tra nsmitted reference range : <=0.2. The reference r quynh was not used to int erpret this result as normal/abnormal . [place] [address]-10-14 08:42:00 Test Item Value Reference Range Interpretation Comments Eosinophils (test code = 1.6 See_Comment [A utomated message] The Eosinophils) system which ge nerated this result tra nsmitted reference range : <=4.0. The reference r quynh was not used to int erpret this result as normal/abnormal . [place] [address]-10-14 08:42:00 Test Item Value Reference Range Interpretation Comments Basophils (test code = 0.6 See_Comment [Aut omated message] The Basophils) system which ge nerated this result tra nsmitted reference range : <=1.0. The reference r quynh was not used to int erpret this result as normal/abnormal . [place] [address]-10-14 08:42:00 Test Item Value Reference Range Interpretation Comments Neutrophils # (test code = Neutrophils 9.8 1.5-8.1 #) [place] [address]-10-14 08:42:00 Test Item Value Reference Range Interpretation Comments Lymphocytes # (test code = Lymphocytes 1.7 1.0-5.5 #) [place] [address]-10-14 08:42:00 Test Item Value Reference Range Interpretation Comments Monocytes # (test code 0.8 See_Comment [Aut omated message] The = Monocytes #) system which generated this result tra nsmitted reference range : <=0.8. The reference r quynh was not used to int erpret this result as normal/abnormal . [place] [address]-10-14 08:42:00 Test Item Value Reference Range Interpretation Comments Eosinophils # (test code 0.2 See_Comment [A utomated message] The = Eosinophils #) system whic h generated this result tra nsmitted reference range : <=0.5. The reference r quynh was not used to int erpret this result as normal/abnormal . [place] [address]-10-14 08:42:00 Test Item Value Reference Range Interpretation Comments Basophils # (test code 0.1 See_Comment [Aut omated message] The = Basophils #) system which generated this result tra nsmitted reference range : <=0.2. The reference r quynh was not used to int erpret this result as normal/abnormal . [place] 786342-10-14 08:42:00 Test Item Value Reference Range Interpretation Comments Magnesium Lvl (test code = Magnesium 2.2 1.8-2.4 Lvl) [place] [address]-10-14 08:42:00 Test Item Value Reference Range Interpretation Comments Glucose Lvl (test code = Glucose Lvl) 89 70-99 [place] [address]-10-14 08:42:00 Test Item Value Reference Range Interpretation Comments BUN (test code = BUN) 8 7-22 [place] 786342-10-14 08:42:00 Test Item Value Reference Range Interpretation Comments Creatinine Lvl (test code = Creatinine 0.59 0.50-1.40 Lvl) [place] 786342-10-14 08:42:00 Test Item Value Reference Range Interpretation Comments Sodium Lvl (test code = Sodium Lvl) 142 135-145 [place] 786342-10-14 08:42:00 Test Item Value Reference Range Interpretation Comments Potassium Lvl (test code = Potassium 3.6 3.5-5.1 Lvl) [place] 786342-10-14 08:42:00 Test Item Value Reference Range Interpretation Comments Chloride Lvl (test code = Chloride Lvl) 103 95-109 [place] 786342-10-14 08:42:00 Test Item Value Reference Range Interpretation Comments CO2 (test code = CO2) 30 24-32 [place] 786342-10-14 08:42:00 Test Item Value Reference Range Interpretation Comments Calcium Lvl (test code = Calcium Lvl) 9.8 8.5-10.5 [place] 786342-10-14 08:42:00 Test Item Value Reference Range Interpretation Comments Total Protein (test code = Total 7.0 6.4-8.4 Protein) [place] 786342-10-14 08:42:00 Test Item Value Reference Range Interpretation Comments Albumin Lvl (test code = Albumin Lvl) 2.8 3.5-5.0 [place] 786342-10-14 08:42:00 Test Item Value Reference Range Interpretation Comments ALT (test code = ALT) 20 See_Comment [Auto mated message] The system which ge nerated this result transmit fabiano reference range : <=65. The reference range was not used to interpr et this result as aleks l/abnormal. [facility] [employer] [id number] 08:42:00 Test Item Value Reference Range Interpretation Comments AST (test code = AST) 11 See_Comment [Auto mated message] The system which ge nerated this result transmit fabiano reference range : <=37. The reference range was not used to interpr et this result as aleks l/abnormal. [facility] [employer] [id number] 08:42:00 Test Item Value Reference Range Interpretation Comments Alk Phos (test code = Alk Phos) 108 39-136 [facility] [employer] [id number] 08:42:00 Test Item Value Reference Range Interpretation Comments Bili Total (test code = Bili Total) 0.4 0.2-1.3 [facility] [employer] [id number] 08:42:00 Test Item Value Reference Range Interpretation Comments AGAP (test code = AGAP) 12.6 10.0-20.0 [facility] [employer] [id number] 08:42:00 Test Item Value Reference Range Interpretation Comments B/C Ratio (test code = B/C Ratio) 14 1 6-25 [facility] [employer] [id number] 08:42:00 Test Item Value Reference Range Interpretation Comments Globulin (test code = Globulin) 4.2 2.7-4.2 [facility] [employer] [id number] 08:42:00 Test Item Value Reference Range Interpretation Comments A/G Ratio (test code = A/G Ratio) 0.7 1 0.7-1.6 [facility] [employer] [id number] 08:42:00 Test Item Value Reference Range Interpretation Comments eGFR (test code = eGFR) 108 [facility] [employer] [id number] 08:42:00 Test Item Value Reference Range Interpretation Comments Phosphorus (test code = Phosphorus) 5.4 2.5-4.5 [facility] [id number] 08:42:00 Test Item Value Reference Range Interpretation Comments WBC (test code = WBC) 12.5 3.7-10.4 [place] [address]-10-14 08:42:00 Test Item Value Reference Range Interpretation Comments RBC (test code = RBC) 3.94 4.20-5.40 [place] [address]-10-14 08:42:00 Test Item Value Reference Range Interpretation Comments Hgb (test code = Hgb) 10.6 12.0-16.0 [place] [address]-10-14 08:42:00 Test Item Value Reference Range Interpretation Comments Hct (test code = Hct) 31.6 36.0-48.0 [id number] 08:42:00 Test Item Value Reference Range Interpretation Comments MCV (test code = MCV) 80.2 80.0-98.0 [place] [address]-10-14 08:42:00 Test Item Value Reference Range Interpretation Comments MCH (test code = MCH) 26.9 pg 27.0-31.0 [place] [address]-10-14 08:42:00 Test Item Value Reference Range Interpretation Comments MCHC (test code = MCHC) 33.6 32.0-36.0 [place] 439852-10-14 08:42:00 Test Item Value Reference Range Interpretation Comments RDW (test code = RDW) 16.4 11.5-14.5 [place] 439852-10-14 08:42:00 Test Item Value Reference Range Interpretation Comments Platelet (test code = Platelet) 339 133-450 [facility] C[id number] 08:42:00 Test Item Value Reference Range Interpretation Comments MPV (test code = MPV) 8.0 7.4-10.4 [place] 439852-10-14 08:42:00 Test Item Value Reference Range Interpretation Comments Segs (test code = Segs) 77.8 45.0-75.0 [place] [address]-10-14 08:42:00 Test Item Value Reference Range Interpretation Comments Lymphocytes (test code = Lymphocytes) 13.5 20.0-40.0 [place] [address]-10-14 08:42:00 Test Item Value Reference Range Interpretation Comments Monocytes (test code = Monocytes) 6.5 2.0-12.0 [place] [address]-10-14 08:42:00 Test Item Value Reference Range Interpretation Comments Eosinophils (test code = 1.6 See_Comment [A utomated message] The Eosinophils) system which ge nerated this result tra nsmitted reference range : <=4.0. The reference r quynh was not used to int erpret this result as normal/abnormal . [place] [address]-10-14 08:42:00 Test Item Value Reference Range Interpretation Comments Basophils (test code = 0.6 See_Comment [Aut omated message] The Basophils) system which ge nerated this result tra nsmitted reference range : <=1.0. The reference r quynh was not used to int erpret this result as normal/abnormal . [place] [address]-10-14 08:42:00 Test Item Value Reference Range Interpretation Comments Neutrophils # (test code = Neutrophils 9.8 1.5-8.1 #) [place] [address]-10-14 08:42:00 Test Item Value Reference Range Interpretation Comments Lymphocytes # (test code = Lymphocytes 1.7 1.0-5.5 #) [place] [address]-10-14 08:42:00 Test Item Value Reference Range Interpretation Comments Monocytes # (test code 0.8 See_Comment [Aut omated message] The = Monocytes #) system which generated this result tra nsmitted reference range : <=0.8. The reference r quynh was not used to int erpret this result as normal/abnormal . [place] 439852-10-14 08:42:00 Test Item Value Reference Range Interpretation Comments Eosinophils # (test code 0.2 See_Comment [A utomated message] The = Eosinophils #) system whic h generated this result tra nsmitted reference range : <=0.5. The reference r quynh was not used to int erpret this result as normal/abnormal . [place] [address]-10-14 08:42:00 Test Item Value Reference Range Interpretation Comments Basophils # (test code 0.1 See_Comment [Aut omated message] The = Basophils #) system which generated this result tra nsmitted reference range : <=0.2. The reference r quynh was not used to int erpret this result as normal/abnormal . [facility]2022-10-14 08:42:00 Test Item Value Reference Range Interpretation Comments Magnesium Lvl (test code = Magnesium 2.2 1.8-2.4 Lvl) [place] 786342-10-14 08:42:00 Test Item Value Reference Range Interpretation Comments Glucose Lvl (test code = Glucose Lvl) 89 70-99 [place] 786342-10-14 08:42:00 Test Item Value Reference Range Interpretation Comments BUN (test code = BUN) 8 7-22 [place] 786342-10-14 08:42:00 Test Item Value Reference Range Interpretation Comments Creatinine Lvl (test code = Creatinine 0.59 0.50-1.40 Lvl) [place] [address]-10-14 08:42:00 Test Item Value Reference Range Interpretation Comments Sodium Lvl (test code = Sodium Lvl) 142 135-145 [place] 786342-10-14 08:42:00 Test Item Value Reference Range Interpretation Comments Potassium Lvl (test code = Potassium 3.6 3.5-5.1 Lvl) [place] 786342-10-14 08:42:00 Test Item Value Reference Range Interpretation Comments Chloride Lvl (test code = Chloride Lvl) 103 95-109 [place] [address]-10-14 08:42:00 Test Item Value Reference Range Interpretation Comments CO2 (test code = CO2) 30 24-32 [place] 786342-10-14 08:42:00 Test Item Value Reference Range Interpretation Comments Calcium Lvl (test code = Calcium Lvl) 9.8 8.5-10.5 [place] 786342-10-14 08:42:00 Test Item Value Reference Range Interpretation Comments Total Protein (test code = Total 7.0 6.4-8.4 Protein) [place] [address]-10-14 08:42:00 Test Item Value Reference Range Interpretation Comments Albumin Lvl (test code = Albumin Lvl) 2.8 3.5-5.0 [place] 786342-10-14 08:42:00 Test Item Value Reference Range Interpretation Comments ALT (test code = ALT) 20 See_Comment [Auto mated message] The system which ge nerated this result transmit fabiano reference range : <=65. The reference range was not used to interpr et this result as aleks l/abnormal. [place] 786342-10-14 08:42:00 Test Item Value Reference Range Interpretation Comments AST (test code = AST) 11 See_Comment [Auto mated message] The system which ge nerated this result transmit fabiano reference range : <=37. The reference range was not used to interpr et this result as aleks l/abnormal. [facility] [employer] [id number] 08:42:00 Test Item Value Reference Range Interpretation Comments Alk Phos (test code = Alk Phos) 108 39-136 [facility] [id number] 08:42:00 Test Item Value Reference Range Interpretation Comments Bili Total (test code = Bili Total) 0.4 0.2-1.3 [facility] [employer] [id number] 08:42:00 Test Item Value Reference Range Interpretation Comments AGAP (test code = AGAP) 12.6 10.0-20.0 [facility] [id number] 08:42:00 Test Item Value Reference Range Interpretation Comments B/C Ratio (test code = B/C Ratio) 14 1 6-25 [facility] [id number] 08:42:00 Test Item Value Reference Range Interpretation Comments Globulin (test code = Globulin) 4.2 2.7-4.2 [facility] [employer] [id number] 08:42:00 Test Item Value Reference Range Interpretation Comments A/G Ratio (test code = A/G Ratio) 0.7 1 0.7-1.6 [facility] [id number] 08:42:00 Test Item Value Reference Range Interpretation Comments eGFR (test code = eGFR) 108 [facility] [id number] 08:42:00 Test Item Value Reference Range Interpretation Comments Phosphorus (test code = Phosphorus) 5.4 2.5-4.5 [facility] DallasSudxkweAYGCEJICDL4059-45-56 08:42:00 Test Item Value Reference Range Interpretation Comments WBC (test code = WBC) 12.5 3.7-10.4 [facility] DallasDqlztsyTDLLHCWLUN2485-44-22 08:42:00 Test Item Value Reference Range Interpretation Comments RBC (test code = RBC) 3.94 4.20-5.40 [facility] DallasBrhrzjwCYWPZDQKVQ7113-52-20 08:42:00 Test Item Value Reference Range Interpretation Comments Hgb (test code = Hgb) 10.6 12.0-16.0 [facility] CenterIsxanjmMAOGYUKUIV0833-15-05 08:42:00 Test Item Value Reference Range Interpretation Comments Hct (test code = Hct) 31.6 36.0-48.0 [facility] CenterMzjhnhuXZBZYEFJMC2716-83-07 08:42:00 Test Item Value Reference Range Interpretation Comments MCV (test code = MCV) 80.2 80.0-98.0 [facility] CenterVvhajioWQIGZOIZQC5922-62-64 08:42:00 Test Item Value Reference Range Interpretation Comments MCH (test code = MCH) 26.9 pg 27.0-31.0 [facility] CenterCxakyzsTXCIDJPZQD5016-45-18 08:42:00 Test Item Value Reference Range Interpretation Comments MCHC (test code = MCHC) 33.6 32.0-36.0 [facility] CenterDgipuvwTWFZXYMZKC9555-95-43 08:42:00 Test Item Value Reference Range Interpretation Comments RDW (test code = RDW) 16.4 11.5-14.5 [facility] CenterUgpcwbbASRZWCIEFJ7317-97-33 08:42:00 Test Item Value Reference Range Interpretation Comments Platelet (test code = Platelet) 339 133-450 [facility] CenterDrmuckmZOMZWYTYLS9993-71-08 08:42:00 Test Item Value Reference Range Interpretation Comments MPV (test code = MPV) 8.0 7.4-10.4 [facility] CenterYljcvsbJKBIEZVJXF9519-67-69 08:42:00 Test Item Value Reference Range Interpretation Comments Segs (test code = Segs) 77.8 45.0-75.0 [facility] CenterSzblllsRNGRCERUFW3269-78-75 08:42:00 Test Item Value Reference Range Interpretation Comments Lymphocytes (test code = Lymphocytes) 13.5 20.0-40.0 [facility] CenterAkzwmvlNSDEDUECXC6898-33-66 08:42:00 Test Item Value Reference Range Interpretation Comments Monocytes (test code = Monocytes) 6.5 2.0-12.0 [facility] CenterIeqllijGBJZUHQTGW6380-43-82 08:42:00 Test Item Value Reference Range Interpretation Comments Eosinophils (test code = 1.6 See_Comment [A utomated message] The Eosinophils) system which ge nerated this result tra nsmitted reference range : <=4.0. The reference r quynh was not used to int erpret this result as normal/abnormal . [place] [address]-10-14 08:42:00 Test Item Value Reference Range Interpretation Comments Basophils (test code = 0.6 See_Comment [Aut omated message] The Basophils) system which ge nerated this result tra nsmitted reference range : <=1.0. The reference r quynh was not used to int erpret this result as normal/abnormal . [place] [address]-10-14 08:42:00 Test Item Value Reference Range Interpretation Comments Neutrophils # (test code = Neutrophils 9.8 1.5-8.1 #) [address]10-14 08:42:00 Test Item Value Reference Range Interpretation Comments Lymphocytes # (test code = Lymphocytes 1.7 1.0-5.5 #) [address]10-14 08:42:00 Test Item Value Reference Range Interpretation Comments Monocytes # (test code 0.8 See_Comment [Aut omated message] The = Monocytes #) system which generated this result tra nsmitted reference range : <=0.8. The reference r quynh was not used to int erpret this result as normal/abnormal . [place] [address]-10-14 08:42:00 Test Item Value Reference Range Interpretation Comments Eosinophils # (test code 0.2 See_Comment [A utomated message] The = Eosinophils #) system whic h generated this result tra nsmitted reference range : <=0.5. The reference r quynh was not used to int erpret this result as normal/abnormal . [place] [address]-10-14 08:42:00 Test Item Value Reference Range Interpretation Comments Basophils # (test code 0.1 See_Comment [Aut omated message] The = Basophils #) system which generated this result tra nsmitted reference range : <=0.2. The reference r quynh was not used to int erpret this result as normal/abnormal . [facility] [id number] 08:42:00 Test Item Value Reference Range Interpretation Comments Magnesium Lvl (test code = Magnesium 2.2 1.8-2.4 Lvl) [place] [address]-10-14 08:42:00 Test Item Value Reference Range Interpretation Comments Glucose Lvl (test code = Glucose Lvl) 89 70-99 [facility] [id number] 08:42:00 Test Item Value Reference Range Interpretation Comments BUN (test code = BUN) 8 7-22 [place] [address]-10-14 08:42:00 Test Item Value Reference Range Interpretation Comments Creatinine Lvl (test code = Creatinine 0.59 0.50-1.40 Lvl) [place] [address]-10-14 08:42:00 Test Item Value Reference Range Interpretation Comments Sodium Lvl (test code = Sodium Lvl) 142 135-145 [place] [address]-10-14 08:42:00 Test Item Value Reference Range Interpretation Comments Potassium Lvl (test code = Potassium 3.6 3.5-5.1 Lvl) [place] 786342-10-14 08:42:00 Test Item Value Reference Range Interpretation Comments Chloride Lvl (test code = Chloride Lvl) 103 95-109 [place] 786342-10-14 08:42:00 Test Item Value Reference Range Interpretation Comments CO2 (test code = CO2) 30 24-32 [place] [address]-10-14 08:42:00 Test Item Value Reference Range Interpretation Comments Calcium Lvl (test code = Calcium Lvl) 9.8 8.5-10.5 [place] [address]-10-14 08:42:00 Test Item Value Reference Range Interpretation Comments Total Protein (test code = Total 7.0 6.4-8.4 Protein) [place] [address]-10-14 08:42:00 Test Item Value Reference Range Interpretation Comments Albumin Lvl (test code = Albumin Lvl) 2.8 3.5-5.0 [place] 786342-10-14 08:42:00 Test Item Value Reference Range Interpretation Comments ALT (test code = ALT) 20 See_Comment [Auto mated message] The system which ge nerated this result transmit fabiano reference range : <=65. The reference range was not used to interpr et this result as aleks l/abnormal. [facility] [id number] 08:42:00 Test Item Value Reference Range Interpretation Comments AST (test code = AST) 11 See_Comment [Auto mated message] The system which ge nerated this result transmit fabiano reference range : <=37. The reference range was not used to interpr et this result as aleks l/abnormal. [place] 786342-10-14 08:42:00 Test Item Value Reference Range Interpretation Comments Alk Phos (test code = Alk Phos) 108 39-136 [place] 786342-10-14 08:42:00 Test Item Value Reference Range Interpretation Comments Bili Total (test code = Bili Total) 0.4 0.2-1.3 [place] 786342-10-14 08:42:00 Test Item Value Reference Range Interpretation Comments AGAP (test code = AGAP) 12.6 10.0-20.0 [place] [address]-10-14 08:42:00 Test Item Value Reference Range Interpretation Comments B/C Ratio (test code = B/C Ratio) 14 1 6-25 [place] [address]-10-14 08:42:00 Test Item Value Reference Range Interpretation Comments Globulin (test code = Globulin) 4.2 2.7-4.2 [place] 786342-10-14 08:42:00 Test Item Value Reference Range Interpretation Comments A/G Ratio (test code = A/G Ratio) 0.7 1 0.7-1.6 [place] [address]-10-14 08:42:00 Test Item Value Reference Range Interpretation Comments eGFR (test code = eGFR) 108 [place] 786342-10-14 08:42:00 Test Item Value Reference Range Interpretation Comments Phosphorus (test code = Phosphorus) 5.4 2.5-4.5 [place] 439852-10-14 08:42:00 Test Item Value Reference Range Interpretation Comments WBC (test code = WBC) 12.5 3.7-10.4 [place] [address]-10-14 08:42:00 Test Item Value Reference Range Interpretation Comments RBC (test code = RBC) 3.94 4.20-5.40 [place] [address]-10-14 08:42:00 Test Item Value Reference Range Interpretation Comments Hgb (test code = Hgb) 10.6 12.0-16.0 [place] [address]-10-14 08:42:00 Test Item Value Reference Range Interpretation Comments Hct (test code = Hct) 31.6 36.0-48.0 [place] 439852-10-14 08:42:00 Test Item Value Reference Range Interpretation Comments MCV (test code = MCV) 80.2 80.0-98.0 [place] [address]-10-14 08:42:00 Test Item Value Reference Range Interpretation Comments MCH (test code = MCH) 26.9 pg 27.0-31.0 [place] [address]-10-14 08:42:00 Test Item Value Reference Range Interpretation Comments MCHC (test code = MCHC) 33.6 32.0-36.0 [place] 439852-10-14 08:42:00 Test Item Value Reference Range Interpretation Comments RDW (test code = RDW) 16.4 11.5-14.5 [place] [address]-10-14 08:42:00 Test Item Value Reference Range Interpretation Comments Platelet (test code = Platelet) 339 133-450 [place] 439852-10-14 08:42:00 Test Item Value Reference Range Interpretation Comments MPV (test code = MPV) 8.0 7.4-10.4 [place] [address]-10-14 08:42:00 Test Item Value Reference Range Interpretation Comments Segs (test code = Segs) 77.8 45.0-75.0 [place] [address]-10-14 08:42:00 Test Item Value Reference Range Interpretation Comments Lymphocytes (test code = Lymphocytes) 13.5 20.0-40.0 [place] [address]-10-14 08:42:00 Test Item Value Reference Range Interpretation Comments Monocytes (test code = Monocytes) 6.5 2.0-12.0 [place] [address]-10-14 08:42:00 Test Item Value Reference Range Interpretation Comments Eosinophils (test code = 1.6 See_Comment [A utomated message] The Eosinophils) system which ge nerated this result tra nsmitted reference range : <=4.0. The reference r quynh was not used to int erpret this result as normal/abnormal . [place] [address]-10-14 08:42:00 Test Item Value Reference Range Interpretation Comments Basophils (test code = 0.6 See_Comment [Aut omated message] The Basophils) system which ge nerated this result tra nsmitted reference range : <=1.0. The reference r quynh was not used to int erpret this result as normal/abnormal . [address]10-14 08:42:00 Test Item Value Reference Range Interpretation Comments Neutrophils # (test code = Neutrophils 9.8 1.5-8.1 #) [place] [address]-10-14 08:42:00 Test Item Value Reference Range Interpretation Comments Lymphocytes # (test code = Lymphocytes 1.7 1.0-5.5 #) [place] [address]-10-14 08:42:00 Test Item Value Reference Range Interpretation Comments Monocytes # (test code 0.8 See_Comment [Aut omated message] The = Monocytes #) system which generated this result tra nsmitted reference range : <=0.8. The reference r quynh was not used to int erpret this result as normal/abnormal . [address]10-14 08:42:00 Test Item Value Reference Range Interpretation Comments Eosinophils # (test code 0.2 See_Comment [A utomated message] The = Eosinophils #) system whic h generated this result tra nsmitted reference range : <=0.5. The reference r quynh was not used to int erpret this result as normal/abnormal . [place] [address]-10-14 08:42:00 Test Item Value Reference Range Interpretation Comments Basophils # (test code 0.1 See_Comment [Aut omated message] The = Basophils #) system which generated this result tra nsmitted reference range : <=0.2. The reference r quynh was not used to int erpret this result as normal/abnormal . [place] 786342-10-14 08:42:00 Test Item Value Reference Range Interpretation Comments Magnesium Lvl (test code = Magnesium 2.2 1.8-2.4 Lvl) [place] [address]-10-14 08:42:00 Test Item Value Reference Range Interpretation Comments Glucose Lvl (test code = Glucose Lvl) 89 70-99 [place] [address]-10-14 08:42:00 Test Item Value Reference Range Interpretation Comments BUN (test code = BUN) 8 7-22 [place] [address]-10-14 08:42:00 Test Item Value Reference Range Interpretation Comments Creatinine Lvl (test code = Creatinine 0.59 0.50-1.40 Lvl) [place] [address]-10-14 08:42:00 Test Item Value Reference Range Interpretation Comments Sodium Lvl (test code = Sodium Lvl) 142 135-145 [place] [address]-10-14 08:42:00 Test Item Value Reference Range Interpretation Comments Potassium Lvl (test code = Potassium 3.6 3.5-5.1 Lvl) [address]10-14 08:42:00 Test Item Value Reference Range Interpretation Comments Chloride Lvl (test code = Chloride Lvl) 103 95-109 [address]10-14 08:42:00 Test Item Value Reference Range Interpretation Comments CO2 (test code = CO2) 30 24-32 [address]10-14 08:42:00 Test Item Value Reference Range Interpretation Comments Calcium Lvl (test code = Calcium Lvl) 9.8 8.5-10.5 [address]10-14 08:42:00 Test Item Value Reference Range Interpretation Comments Total Protein (test code = Total 7.0 6.4-8.4 Protein) [address]10-14 08:42:00 Test Item Value Reference Range Interpretation Comments Albumin Lvl (test code = Albumin Lvl) 2.8 3.5-5.0 [place] [address]-10-14 08:42:00 Test Item Value Reference Range Interpretation Comments ALT (test code = ALT) 20 See_Comment [Auto mated message] The system which ge nerated this result transmit fabiano reference range : <=65. The reference range was not used to interpr et this result as aleks l/abnormal. [place] [address]-10-14 08:42:00 Test Item Value Reference Range Interpretation Comments AST (test code = AST) 11 See_Comment [Auto mated message] The system which ge nerated this result transmit fabiano reference range : <=37. The reference range was not used to interpr et this result as aleks l/abnormal. [place] [address]-10-14 08:42:00 Test Item Value Reference Range Interpretation Comments Alk Phos (test code = Alk Phos) 108 39-136 [facility] [id number] 08:42:00 Test Item Value Reference Range Interpretation Comments Bili Total (test code = Bili Total) 0.4 0.2-1.3 [place] [address]-10-14 08:42:00 Test Item Value Reference Range Interpretation Comments AGAP (test code = AGAP) 12.6 10.0-20.0 [place] [address]-10-14 08:42:00 Test Item Value Reference Range Interpretation Comments B/C Ratio (test code = B/C Ratio) 14 1 6-25 [place] [address]-10-14 08:42:00 Test Item Value Reference Range Interpretation Comments Globulin (test code = Globulin) 4.2 2.7-4.2 [place] [address]-10-14 08:42:00 Test Item Value Reference Range Interpretation Comments A/G Ratio (test code = A/G Ratio) 0.7 1 0.7-1.6 [place] [address]-10-14 08:42:00 Test Item Value Reference Range Interpretation Comments eGFR (test code = eGFR) 108 [place] 786342-10-14 08:42:00 Test Item Value Reference Range Interpretation Comments Phosphorus (test code = Phosphorus) 5.4 2.5-4.5 [place] [address]-10-14 08:42:00 Test Item Value Reference Range Interpretation Comments WBC (test code = WBC) 12.5 3.7-10.4 [place] [address]-10-14 08:42:00 Test Item Value Reference Range Interpretation Comments RBC (test code = RBC) 3.94 4.20-5.40 [place] [address]-10-14 08:42:00 Test Item Value Reference Range Interpretation Comments Hgb (test code = Hgb) 10.6 12.0-16.0 [place] [address]-10-14 08:42:00 Test Item Value Reference Range Interpretation Comments Hct (test code = Hct) 31.6 36.0-48.0 [place] [address]-10-14 08:42:00 Test Item Value Reference Range Interpretation Comments MCV (test code = MCV) 80.2 80.0-98.0 [place] [address]-10-14 08:42:00 Test Item Value Reference Range Interpretation Comments MCH (test code = MCH) 26.9 pg 27.0-31.0 [place] [address]-10-14 08:42:00 Test Item Value Reference Range Interpretation Comments MCHC (test code = MCHC) 33.6 32.0-36.0 [place]852-10-14 08:42:00 Test Item Value Reference Range Interpretation Comments RDW (test code = RDW) 16.4 11.5-14.5 [place] [address]-10-14 08:42:00 Test Item Value Reference Range Interpretation Comments Platelet (test code = Platelet) 339 133-450 [place] 439852-10-14 08:42:00 Test Item Value Reference Range Interpretation Comments MPV (test code = MPV) 8.0 7.4-10.4 [place] [address]-10-14 08:42:00 Test Item Value Reference Range Interpretation Comments Segs (test code = Segs) 77.8 45.0-75.0 [place] [address]-10-14 08:42:00 Test Item Value Reference Range Interpretation Comments Lymphocytes (test code = Lymphocytes) 13.5 20.0-40.0 [place] 439852-10-14 08:42:00 Test Item Value Reference Range Interpretation Comments Monocytes (test code = Monocytes) 6.5 2.0-12.0 [place] 439852-10-14 08:42:00 Test Item Value Reference Range Interpretation Comments Eosinophils (test code = 1.6 See_Comment [A utomated message] The Eosinophils) system which ge nerated this result tra nsmitted reference range : <=4.0. The reference r quynh was not used to int erpret this result as normal/abnormal . [place] 439852-10-14 08:42:00 Test Item Value Reference Range Interpretation Comments Basophils (test code = 0.6 See_Comment [Aut omated message] The Basophils) system which ge nerated this result tra nsmitted reference range : <=1.0. The reference r quynh was not used to int erpret this result as normal/abnormal . [place] 439852-10-14 08:42:00 Test Item Value Reference Range Interpretation Comments Neutrophils # (test code = Neutrophils 9.8 1.5-8.1 #) [place] [address]-10-14 08:42:00 Test Item Value Reference Range Interpretation Comments Lymphocytes # (test code = Lymphocytes 1.7 1.0-5.5 #) [place] [address]-10-14 08:42:00 Test Item Value Reference Range Interpretation Comments Monocytes # (test code 0.8 See_Comment [Aut omated message] The = Monocytes #) system which generated this result tra nsmitted reference range : <=0.8. The reference r quynh was not used to int erpret this result as normal/abnormal . [place] [address]-10-14 08:42:00 Test Item Value Reference Range Interpretation Comments Eosinophils # (test code 0.2 See_Comment [A utomated message] The = Eosinophils #) system whic h generated this result tra nsmitted reference range : <=0.5. The reference r quynh was not used to int erpret this result as normal/abnormal . [place] [address]-10-14 08:42:00 Test Item Value Reference Range Interpretation Comments Basophils # (test code 0.1 See_Comment [Aut omated message] The = Basophils #) system which generated this result tra nsmitted reference range : <=0.2. The reference r quynh was not used to int erpret this result as normal/abnormal . [place] 786342-10-14 08:42:00 Test Item Value Reference Range Interpretation Comments Magnesium Lvl (test code = Magnesium 2.2 1.8-2.4 Lvl) [place] [address]-10-14 08:42:00 Test Item Value Reference Range Interpretation Comments Glucose Lvl (test code = Glucose Lvl) 89 70-99 [place] [address]-10-14 08:42:00 Test Item Value Reference Range Interpretation Comments BUN (test code = BUN) 8 7-22 [place] [address]-10-14 08:42:00 Test Item Value Reference Range Interpretation Comments Creatinine Lvl (test code = Creatinine 0.59 0.50-1.40 Lvl) [place] 786342-10-14 08:42:00 Test Item Value Reference Range Interpretation Comments Sodium Lvl (test code = Sodium Lvl) 142 135-145 [place] 786342-10-14 08:42:00 Test Item Value Reference Range Interpretation Comments Potassium Lvl (test code = Potassium 3.6 3.5-5.1 Lvl) [facility] [id number] 08:42:00 Test Item Value Reference Range Interpretation Comments Chloride Lvl (test code = Chloride Lvl) 103 95-109 [place] 786342-10-14 08:42:00 Test Item Value Reference Range Interpretation Comments CO2 (test code = CO2) 30 24-32 [place] 786342-10-14 08:42:00 Test Item Value Reference Range Interpretation Comments Calcium Lvl (test code = Calcium Lvl) 9.8 8.5-10.5 [facility] [id number] 08:42:00 Test Item Value Reference Range Interpretation Comments Total Protein (test code = Total 7.0 6.4-8.4 Protein) [place] 786342-10-14 08:42:00 Test Item Value Reference Range Interpretation Comments Albumin Lvl (test code = Albumin Lvl) 2.8 3.5-5.0 [facility] [id number] 08:42:00 Test Item Value Reference Range Interpretation Comments ALT (test code = ALT) 20 See_Comment [Auto mated message] The system which ge nerated this result transmit fabiano reference range : <=65. The reference range was not used to interpr et this result as aleks l/abnormal. [facility] [id number] 08:42:00 Test Item Value Reference Range Interpretation Comments AST (test code = AST) 11 See_Comment [Auto mated message] The system which ge nerated this result transmit fabiano reference range : <=37. The reference range was not used to interpr et this result as aleks l/abnormal. [facility] [id number] 08:42:00 Test Item Value Reference Range Interpretation Comments Alk Phos (test code = Alk Phos) 108 39-136 [facility] [id number] 08:42:00 Test Item Value Reference Range Interpretation Comments Bili Total (test code = Bili Total) 0.4 0.2-1.3 [facility] [id number] 08:42:00 Test Item Value Reference Range Interpretation Comments AGAP (test code = AGAP) 12.6 10.0-20.0 [place] [address]-10-14 08:42:00 Test Item Value Reference Range Interpretation Comments B/C Ratio (test code = B/C Ratio) 14 1 6-25 [place] [address]-10-14 08:42:00 Test Item Value Reference Range Interpretation Comments Globulin (test code = Globulin) 4.2 2.7-4.2 [place] 786342-10-14 08:42:00 Test Item Value Reference Range Interpretation Comments A/G Ratio (test code = A/G Ratio) 0.7 1 0.7-1.6 [place] [address]-10-14 08:42:00 Test Item Value Reference Range Interpretation Comments eGFR (test code = eGFR) 108 [place] 786342-10-14 08:42:00 Test Item Value Reference Range Interpretation Comments Phosphorus (test code = Phosphorus) 5.4 2.5-4.5 [place] 439852-10-14 08:42:00 Test Item Value Reference Range Interpretation Comments WBC (test code = WBC) 12.5 3.7-10.4 [place] [address]-10-14 08:42:00 Test Item Value Reference Range Interpretation Comments RBC (test code = RBC) 3.94 4.20-5.40 [place] 439852-10-14 08:42:00 Test Item Value Reference Range Interpretation Comments Hgb (test code = Hgb) 10.6 12.0-16.0 [place] [address]-10-14 08:42:00 Test Item Value Reference Range Interpretation Comments Hct (test code = Hct) 31.6 36.0-48.0 [place] [address]-10-14 08:42:00 Test Item Value Reference Range Interpretation Comments MCV (test code = MCV) 80.2 80.0-98.0 [place] [address]-10-14 08:42:00 Test Item Value Reference Range Interpretation Comments MCH (test code = MCH) 26.9 pg 27.0-31.0 [place] [address]-10-14 08:42:00 Test Item Value Reference Range Interpretation Comments MCHC (test code = MCHC) 33.6 32.0-36.0 [place] [address]-10-14 08:42:00 Test Item Value Reference Range Interpretation Comments RDW (test code = RDW) 16.4 11.5-14.5 [place] 439852-10-14 08:42:00 Test Item Value Reference Range Interpretation Comments Platelet (test code = Platelet) 339 133-450 [place] 439852-10-14 08:42:00 Test Item Value Reference Range Interpretation Comments MPV (test code = MPV) 8.0 7.4-10.4 [place] 439852-10-14 08:42:00 Test Item Value Reference Range Interpretation Comments Segs (test code = Segs) 77.8 45.0-75.0 [place] 439852-10-14 08:42:00 Test Item Value Reference Range Interpretation Comments Lymphocytes (test code = Lymphocytes) 13.5 20.0-40.0 [place] 439852-10-14 08:42:00 Test Item Value Reference Range Interpretation Comments Monocytes (test code = Monocytes) 6.5 2.0-12.0 [place] 439852-10-14 08:42:00 Test Item Value Reference Range Interpretation Comments Eosinophils (test code = 1.6 See_Comment [A utomated message] The Eosinophils) system which ge nerated this result tra nsmitted reference range : <=4.0. The reference r quynh was not used to int erpret this result as normal/abnormal . [facility] [id number] 08:42:00 Test Item Value Reference Range Interpretation Comments Basophils (test code = 0.6 See_Comment [Aut omated message] The Basophils) system which ge nerated this result tra nsmitted reference range : <=1.0. The reference r quynh was not used to int erpret this result as normal/abnormal . [facility] [id number] 08:42:00 Test Item Value Reference Range Interpretation Comments Neutrophils # (test code = Neutrophils 9.8 1.5-8.1 #) [place] 439852-10-14 08:42:00 Test Item Value Reference Range Interpretation Comments Lymphocytes # (test code = Lymphocytes 1.7 1.0-5.5 #) [place] 439852-10-14 08:42:00 Test Item Value Reference Range Interpretation Comments Monocytes # (test code 0.8 See_Comment [Aut omated message] The = Monocytes #) system which generated this result tra nsmitted reference range : <=0.8. The reference r quynh was not used to int erpret this result as normal/abnormal . [place] 439852-10-14 08:42:00 Test Item Value Reference Range Interpretation Comments Eosinophils # (test code 0.2 See_Comment [A utomated message] The = Eosinophils #) system whic h generated this result tra nsmitted reference range : <=0.5. The reference r quynh was not used to int erpret this result as normal/abnormal . [place] [address]-10-14 08:42:00 Test Item Value Reference Range Interpretation Comments Basophils # (test code 0.1 See_Comment [Aut omated message] The = Basophils #) system which generated this result tra nsmitted reference range : <=0.2. The reference r quynh was not used to int erpret this result as normal/abnormal . [place] 786342-10-14 08:42:00 Test Item Value Reference Range Interpretation Comments Magnesium Lvl (test code = Magnesium 2.2 1.8-2.4 Lvl) [place] [address]-10-14 08:42:00 Test Item Value Reference Range Interpretation Comments Glucose Lvl (test code = Glucose Lvl) 89 70-99 [facility] [id number] 08:42:00 Test Item Value Reference Range Interpretation Comments BUN (test code = BUN) 8 7-22 [facility] [id number] 08:42:00 Test Item Value Reference Range Interpretation Comments Creatinine Lvl (test code = Creatinine 0.59 0.50-1.40 Lvl) [place] [address]-10-14 08:42:00 Test Item Value Reference Range Interpretation Comments Sodium Lvl (test code = Sodium Lvl) 142 135-145 [facility] [id number] 08:42:00 Test Item Value Reference Range Interpretation Comments Potassium Lvl (test code = Potassium 3.6 3.5-5.1 Lvl) [place] 786342-10-14 08:42:00 Test Item Value Reference Range Interpretation Comments Chloride Lvl (test code = Chloride Lvl) 103 95-109 [facility] [id number] 08:42:00 Test Item Value Reference Range Interpretation Comments CO2 (test code = CO2) 30 24-32 [place] [address]-10-14 08:42:00 Test Item Value Reference Range Interpretation Comments Calcium Lvl (test code = Calcium Lvl) 9.8 8.5-10.5 [place] 786342-10-14 08:42:00 Test Item Value Reference Range Interpretation Comments Total Protein (test code = Total 7.0 6.4-8.4 Protein) [place] [address]-10-14 08:42:00 Test Item Value Reference Range Interpretation Comments Albumin Lvl (test code = Albumin Lvl) 2.8 3.5-5.0 [place] 786342-10-14 08:42:00 Test Item Value Reference Range Interpretation Comments ALT (test code = ALT) 20 See_Comment [Auto mated message] The system which ge nerated this result transmit fabiano reference range : <=65. The reference range was not used to interpr et this result as aleks l/abnormal. [place] 786342-10-14 08:42:00 Test Item Value Reference Range Interpretation Comments AST (test code = AST) 11 See_Comment [Auto mated message] The system which ge nerated this result transmit fabiano reference range : <=37. The reference range was not used to interpr et this result as aleks l/abnormal. [place] 786342-10-14 08:42:00 Test Item Value Reference Range Interpretation Comments Alk Phos (test code = Alk Phos) 108 39-136 [place] 786342-10-14 08:42:00 Test Item Value Reference Range Interpretation Comments Bili Total (test code = Bili Total) 0.4 0.2-1.3 [place] [address]-10-14 08:42:00 Test Item Value Reference Range Interpretation Comments AGAP (test code = AGAP) 12.6 10.0-20.0 [facility] [id number] 08:42:00 Test Item Value Reference Range Interpretation Comments B/C Ratio (test code = B/C Ratio) 14 1 6-25 [facility] [id number] 08:42:00 Test Item Value Reference Range Interpretation Comments Globulin (test code = Globulin) 4.2 2.7-4.2 [facility]2022-10-14 08:42:00 Test Item Value Reference Range Interpretation Comments A/G Ratio (test code = A/G Ratio) 0.7 1 0.7-1.6 [place] 786342-10-14 08:42:00 Test Item Value Reference Range Interpretation Comments eGFR (test code = eGFR) 108 [place] 786342-10-14 08:42:00 Test Item Value Reference Range Interpretation Comments Phosphorus (test code = Phosphorus) 5.4 2.5-4.5 [place] 439852-10-14 08:42:00 Test Item Value Reference Range Interpretation Comments WBC (test code = WBC) 12.5 3.7-10.4 [place] 439852-10-14 08:42:00 Test Item Value Reference Range Interpretation Comments RBC (test code = RBC) 3.94 4.20-5.40 [place] 439852-10-14 08:42:00 Test Item Value Reference Range Interpretation Comments Hgb (test code = Hgb) 10.6 12.0-16.0 [place] 439852-10-14 08:42:00 Test Item Value Reference Range Interpretation Comments Hct (test code = Hct) 31.6 36.0-48.0 [place] 439852-10-14 08:42:00 Test Item Value Reference Range Interpretation Comments MCV (test code = MCV) 80.2 80.0-98.0 [place] 439852-10-14 08:42:00 Test Item Value Reference Range Interpretation Comments MCH (test code = MCH) 26.9 pg 27.0-31.0 [place] [address]-10-14 08:42:00 Test Item Value Reference Range Interpretation Comments MCHC (test code = MCHC) 33.6 32.0-36.0 [place] 439852-10-14 08:42:00 Test Item Value Reference Range Interpretation Comments RDW (test code = RDW) 16.4 11.5-14.5 [place] 439852-10-14 08:42:00 Test Item Value Reference Range Interpretation Comments Platelet (test code = Platelet) 339 133-450 [place] 439852-10-14 08:42:00 Test Item Value Reference Range Interpretation Comments MPV (test code = MPV) 8.0 7.4-10.4 [facility] C[id number] 08:42:00 Test Item Value Reference Range Interpretation Comments Segs (test code = Segs) 77.8 45.0-75.0 [facility] CenterLxoivxaEDXMIICYCZ4613-48-68 08:42:00 Test Item Value Reference Range Interpretation Comments Lymphocytes (test code = Lymphocytes) 13.5 20.0-40.0 [facility] [id number] 08:42:00 Test Item Value Reference Range Interpretation Comments Monocytes (test code = Monocytes) 6.5 2.0-12.0 [facility] [id number] 08:42:00 Test Item Value Reference Range Interpretation Comments Eosinophils (test code = 1.6 See_Comment [A utomated message] The Eosinophils) system which ge nerated this result tra nsmitted reference range : <=4.0. The reference r quynh was not used to int erpret this result as normal/abnormal . [facility] CenterLgndcctIDISJNWQIX7411-97-58 08:42:00 Test Item Value Reference Range Interpretation Comments Basophils (test code = 0.6 See_Comment [Aut omated message] The Basophils) system which ge nerated this result tra nsmitted reference range : <=1.0. The reference r quynh was not used to int erpret this result as normal/abnormal . [facility] C[id number] 08:42:00 Test Item Value Reference Range Interpretation Comments Neutrophils # (test code = Neutrophils 9.8 1.5-8.1 #) [facility] CenterKptkoyvUZGLTBTDRM7119-95-23 08:42:00 Test Item Value Reference Range Interpretation Comments Lymphocytes # (test code = Lymphocytes 1.7 1.0-5.5 #) [place] [address]-10-14 08:42:00 Test Item Value Reference Range Interpretation Comments Monocytes # (test code 0.8 See_Comment [Aut omated message] The = Monocytes #) system which generated this result tra nsmitted reference range : <=0.8. The reference r quynh was not used to int erpret this result as normal/abnormal . [place] 439852-10-14 08:42:00 Test Item Value Reference Range Interpretation Comments Eosinophils # (test code 0.2 See_Comment [A utomated message] The = Eosinophils #) system whic h generated this result tra nsmitted reference range : <=0.5. The reference r quynh was not used to int erpret this result as normal/abnormal . [place] 439852-10-14 08:42:00 Test Item Value Reference Range Interpretation Comments Basophils # (test code 0.1 See_Comment [Aut omated message] The = Basophils #) system which generated this result tra nsmitted reference range : <=0.2. The reference r quynh was not used to int erpret this result as normal/abnormal . [place] 786342-10-14 08:42:00 Test Item Value Reference Range Interpretation Comments Magnesium Lvl (test code = Magnesium 2.2 1.8-2.4 Lvl) [place] [address]-10-14 08:42:00 Test Item Value Reference Range Interpretation Comments Glucose Lvl (test code = Glucose Lvl) 89 70-99 [place] 786342-10-14 08:42:00 Test Item Value Reference Range Interpretation Comments BUN (test code = BUN) 8 7-22 [place] [address]-10-14 08:42:00 Test Item Value Reference Range Interpretation Comments Creatinine Lvl (test code = Creatinine 0.59 0.50-1.40 Lvl) [place] [address]-10-14 08:42:00 Test Item Value Reference Range Interpretation Comments Sodium Lvl (test code = Sodium Lvl) 142 135-145 [place] 786342-10-14 08:42:00 Test Item Value Reference Range Interpretation Comments Potassium Lvl (test code = Potassium 3.6 3.5-5.1 Lvl) [place] [address]-10-14 08:42:00 Test Item Value Reference Range Interpretation Comments Chloride Lvl (test code = Chloride Lvl) 103 95-109 [place] 786342-10-14 08:42:00 Test Item Value Reference Range Interpretation Comments CO2 (test code = CO2) 30 24-32 [place] 786342-10-14 08:42:00 Test Item Value Reference Range Interpretation Comments Calcium Lvl (test code = Calcium Lvl) 9.8 8.5-10.5 [facility] [id number] 08:42:00 Test Item Value Reference Range Interpretation Comments Total Protein (test code = Total 7.0 6.4-8.4 Protein) [place] 786342-10-14 08:42:00 Test Item Value Reference Range Interpretation Comments Albumin Lvl (test code = Albumin Lvl) 2.8 3.5-5.0 [facility] [id number] 08:42:00 Test Item Value Reference Range Interpretation Comments ALT (test code = ALT) 20 See_Comment [Auto mated message] The system which ge nerated this result transmit fabiano reference range : <=65. The reference range was not used to interpr et this result as aleks l/abnormal. [facility] [id number] 08:42:00 Test Item Value Reference Range Interpretation Comments AST (test code = AST) 11 See_Comment [Auto mated message] The system which ge nerated this result transmit fabiano reference range : <=37. The reference range was not used to interpr et this result as aleks l/abnormal. [facility] [id number] 08:42:00 Test Item Value Reference Range Interpretation Comments Alk Phos (test code = Alk Phos) 108 39-136 [facility] [id number] 08:42:00 Test Item Value Reference Range Interpretation Comments Bili Total (test code = Bili Total) 0.4 0.2-1.3 [facility] [id number] 08:42:00 Test Item Value Reference Range Interpretation Comments AGAP (test code = AGAP) 12.6 10.0-20.0 [facility] [id number] 08:42:00 Test Item Value Reference Range Interpretation Comments B/C Ratio (test code = B/C Ratio) 14 1 6-25 [facility] [id number] 08:42:00 Test Item Value Reference Range Interpretation Comments Globulin (test code = Globulin) 4.2 2.7-4.2 [facility] [id number] 08:42:00 Test Item Value Reference Range Interpretation Comments A/G Ratio (test code = A/G Ratio) 0.7 1 0.7-1.6 [facility]2022-10-14 08:42:00 Test Item Value Reference Range Interpretation Comments eGFR (test code = eGFR) 108 [place] 786342-10-14 08:42:00 Test Item Value Reference Range Interpretation Comments Phosphorus (test code = Phosphorus) 5.4 2.5-4.5 [place] 439852-10-14 08:42:00 Test Item Value Reference Range Interpretation Comments WBC (test code = WBC) 12.5 3.7-10.4 [place] 439852-10-14 08:42:00 Test Item Value Reference Range Interpretation Comments RBC (test code = RBC) 3.94 4.20-5.40 [place] [address]-10-14 08:42:00 Test Item Value Reference Range Interpretation Comments Hgb (test code = Hgb) 10.6 12.0-16.0 [place] [address]-10-14 08:42:00 Test Item Value Reference Range Interpretation Comments Hct (test code = Hct) 31.6 36.0-48.0 [place] 439852-10-14 08:42:00 Test Item Value Reference Range Interpretation Comments MCV (test code = MCV) 80.2 80.0-98.0 [place] [address]-10-14 08:42:00 Test Item Value Reference Range Interpretation Comments MCH (test code = MCH) 26.9 pg 27.0-31.0 [place] 439852-10-14 08:42:00 Test Item Value Reference Range Interpretation Comments MCHC (test code = MCHC) 33.6 32.0-36.0 [place] 439852-10-14 08:42:00 Test Item Value Reference Range Interpretation Comments RDW (test code = RDW) 16.4 11.5-14.5 [place] [address]-10-14 08:42:00 Test Item Value Reference Range Interpretation Comments Platelet (test code = Platelet) 339 133-450 [place] 439852-10-14 08:42:00 Test Item Value Reference Range Interpretation Comments MPV (test code = MPV) 8.0 7.4-10.4 [place] 439852-10-14 08:42:00 Test Item Value Reference Range Interpretation Comments Segs (test code = Segs) 77.8 45.0-75.0 [facility] Cent[id number] 08:42:00 Test Item Value Reference Range Interpretation Comments Lymphocytes (test code = Lymphocytes) 13.5 20.0-40.0 [place] 439852-10-14 08:42:00 Test Item Value Reference Range Interpretation Comments Monocytes (test code = Monocytes) 6.5 2.0-12.0 [facility] CenterYlsfejmDOFZUAFHPR1815-29-31 08:42:00 Test Item Value Reference Range Interpretation Comments Eosinophils (test code = 1.6 See_Comment [A utomated message] The Eosinophils) system which ge nerated this result tra nsmitted reference range : <=4.0. The reference r quynh was not used to int erpret this result as normal/abnormal . [place] 439852-10-14 08:42:00 Test Item Value Reference Range Interpretation Comments Basophils (test code = 0.6 See_Comment [Aut omated message] The Basophils) system which ge nerated this result tra nsmitted reference range : <=1.0. The reference r quynh was not used to int erpret this result as normal/abnormal . [facility] CenterIelishqFPANJEATRM5781-03-15 08:42:00 Test Item Value Reference Range Interpretation Comments Neutrophils # (test code = Neutrophils 9.8 1.5-8.1 #) [place] [address]-10-14 08:42:00 Test Item Value Reference Range Interpretation Comments Lymphocytes # (test code = Lymphocytes 1.7 1.0-5.5 #) [place] 439852-10-14 08:42:00 Test Item Value Reference Range Interpretation Comments Monocytes # (test code 0.8 See_Comment [Aut omated message] The = Monocytes #) system which generated this result tra nsmitted reference range : <=0.8. The reference r quynh was not used to int erpret this result as normal/abnormal . [place] [address]-10-14 08:42:00 Test Item Value Reference Range Interpretation Comments Eosinophils # (test code 0.2 See_Comment [A utomated message] The = Eosinophils #) system whic h generated this result tra nsmitted reference range : <=0.5. The reference r quynh was not used to int erpret this result as normal/abnormal . [place] 439852-10-14 08:42:00 Test Item Value Reference Range Interpretation Comments Basophils # (test code 0.1 See_Comment [Aut omated message] The = Basophils #) system which generated this result tra nsmitted reference range : <=0.2. The reference r quynh was not used to int erpret this result as normal/abnormal . [place] [address]-10-14 08:42:00 Test Item Value Reference Range Interpretation Comments Magnesium Lvl (test code = Magnesium 2.2 1.8-2.4 Lvl) [place] [address]-10-14 08:42:00 Test Item Value Reference Range Interpretation Comments Glucose Lvl (test code = Glucose Lvl) 89 70-99 [place] [address]-10-14 08:42:00 Test Item Value Reference Range Interpretation Comments BUN (test code = BUN) 8 7-22 [place] 786342-10-14 08:42:00 Test Item Value Reference Range Interpretation Comments Creatinine Lvl (test code = Creatinine 0.59 0.50-1.40 Lvl) [place] 786342-10-14 08:42:00 Test Item Value Reference Range Interpretation Comments Sodium Lvl (test code = Sodium Lvl) 142 135-145 [place] [address]-10-14 08:42:00 Test Item Value Reference Range Interpretation Comments Potassium Lvl (test code = Potassium 3.6 3.5-5.1 Lvl) [place] [address]-10-14 08:42:00 Test Item Value Reference Range Interpretation Comments Chloride Lvl (test code = Chloride Lvl) 103 95-109 [place] [address]-10-14 08:42:00 Test Item Value Reference Range Interpretation Comments CO2 (test code = CO2) 30 24-32 [place] 786342-10-14 08:42:00 Test Item Value Reference Range Interpretation Comments Calcium Lvl (test code = Calcium Lvl) 9.8 8.5-10.5 [place] [address]-10-14 08:42:00 Test Item Value Reference Range Interpretation Comments Total Protein (test code = Total 7.0 6.4-8.4 Protein) [place] 786342-10-14 08:42:00 Test Item Value Reference Range Interpretation Comments Albumin Lvl (test code = Albumin Lvl) 2.8 3.5-5.0 [facility] [employer] [id number] 08:42:00 Test Item Value Reference Range Interpretation Comments ALT (test code = ALT) 20 See_Comment [Auto mated message] The system which ge nerated this result transmit fabiano reference range : <=65. The reference range was not used to interpr et this result as aleks l/abnormal. [facility] [employer] [id number] 08:42:00 Test Item Value Reference Range Interpretation Comments AST (test code = AST) 11 See_Comment [Auto mated message] The system which ge nerated this result transmit fabiano reference range : <=37. The reference range was not used to interpr et this result as aleks l/abnormal. [facility] [employer] [id number] 08:42:00 Test Item Value Reference Range Interpretation Comments Alk Phos (test code = Alk Phos) 108 39-136 [facility] [employer] [id number] 08:42:00 Test Item Value Reference Range Interpretation Comments Bili Total (test code = Bili Total) 0.4 0.2-1.3 [facility] [employer] [id number] 08:42:00 Test Item Value Reference Range Interpretation Comments AGAP (test code = AGAP) 12.6 10.0-20.0 [facility] [employer] [id number] 08:42:00 Test Item Value Reference Range Interpretation Comments B/C Ratio (test code = B/C Ratio) 14 1 6-25 [facility] [employer] [id number] 08:42:00 Test Item Value Reference Range Interpretation Comments Globulin (test code = Globulin) 4.2 2.7-4.2 [facility] [employer] [id number] 08:42:00 Test Item Value Reference Range Interpretation Comments A/G Ratio (test code = A/G Ratio) 0.7 1 0.7-1.6 [facility] [employer] [id number] 08:42:00 Test Item Value Reference Range Interpretation Comments eGFR (test code = eGFR) 108 [facility] [employer] [id number] 08:42:00 Test Item Value Reference Range Interpretation Comments Phosphorus (test code = Phosphorus) 5.4 2.5-4.5 [place] 439852-10-14 08:42:00 Test Item Value Reference Range Interpretation Comments WBC (test code = WBC) 12.5 3.7-10.4 [facility] [id number] 08:42:00 Test Item Value Reference Range Interpretation Comments RBC (test code = RBC) 3.94 4.20-5.40 [facility] CenterAzejothMSTCCWGBJU3319-42-10 08:42:00 Test Item Value Reference Range Interpretation Comments Hgb (test code = Hgb) 10.6 12.0-16.0 [place] [address]-10-14 08:42:00 Test Item Value Reference Range Interpretation Comments Hct (test code = Hct) 31.6 36.0-48.0 [place] 439852-10-14 08:42:00 Test Item Value Reference Range Interpretation Comments MCV (test code = MCV) 80.2 80.0-98.0 [facility] CenterCxfhhajPFBHKAVFHN9869-88-07 08:42:00 Test Item Value Reference Range Interpretation Comments MCH (test code = MCH) 26.9 pg 27.0-31.0 [facility] CenterQtvncfxBCOQRGDOAR1254-37-07 08:42:00 Test Item Value Reference Range Interpretation Comments MCHC (test code = MCHC) 33.6 32.0-36.0 [facility] CenterYawagksMJSLDFZYGG7039-07-69 08:42:00 Test Item Value Reference Range Interpretation Comments RDW (test code = RDW) 16.4 11.5-14.5 [facility] CenterVfsxctgXHBBXWPQBC9966-97-21 08:42:00 Test Item Value Reference Range Interpretation Comments Platelet (test code = Platelet) 339 133-450 [facility] CenterScqhbadYLUZGFYZER6629-73-10 08:42:00 Test Item Value Reference Range Interpretation Comments MPV (test code = MPV) 8.0 7.4-10.4 [place] 439852-10-14 08:42:00 Test Item Value Reference Range Interpretation Comments Segs (test code = Segs) 77.8 45.0-75.0 [place] 439852-10-14 08:42:00 Test Item Value Reference Range Interpretation Comments Lymphocytes (test code = Lymphocytes) 13.5 20.0-40.0 [place] 439852-10-14 08:42:00 Test Item Value Reference Range Interpretation Comments Monocytes (test code = Monocytes) 6.5 2.0-12.0 [place] [address]-10-14 08:42:00 Test Item Value Reference Range Interpretation Comments Eosinophils (test code = 1.6 See_Comment [A utomated message] The Eosinophils) system which ge nerated this result tra nsmitted reference range : <=4.0. The reference r quynh was not used to int erpret this result as normal/abnormal . [place] [address]-10-14 08:42:00 Test Item Value Reference Range Interpretation Comments Basophils (test code = 0.6 See_Comment [Aut omated message] The Basophils) system which ge nerated this result tra nsmitted reference range : <=1.0. The reference r quynh was not used to int erpret this result as normal/abnormal . [place] [address]-10-14 08:42:00 Test Item Value Reference Range Interpretation Comments Neutrophils # (test code = Neutrophils 9.8 1.5-8.1 #) [address]10-14 08:42:00 Test Item Value Reference Range Interpretation Comments Lymphocytes # (test code = Lymphocytes 1.7 1.0-5.5 #) [address]10-14 08:42:00 Test Item Value Reference Range Interpretation Comments Monocytes # (test code 0.8 See_Comment [Aut omated message] The = Monocytes #) system which generated this result tra nsmitted reference range : <=0.8. The reference r quynh was not used to int erpret this result as normal/abnormal . [place] [address]-10-14 08:42:00 Test Item Value Reference Range Interpretation Comments Eosinophils # (test code 0.2 See_Comment [A utomated message] The = Eosinophils #) system whic h generated this result tra nsmitted reference range : <=0.5. The reference r quynh was not used to int erpret this result as normal/abnormal . [place] [address]-10-14 08:42:00 Test Item Value Reference Range Interpretation Comments Basophils # (test code 0.1 See_Comment [Aut omated message] The = Basophils #) system which generated this result tra nsmitted reference range : <=0.2. The reference r quynh was not used to int erpret this result as normal/abnormal . [place] 786342-10-14 08:42:00 Test Item Value Reference Range Interpretation Comments Magnesium Lvl (test code = Magnesium 2.2 1.8-2.4 Lvl) [place] 786342-10-14 08:42:00 Test Item Value Reference Range Interpretation Comments Glucose Lvl (test code = Glucose Lvl) 89 70-99 [place] 786342-10-14 08:42:00 Test Item Value Reference Range Interpretation Comments BUN (test code = BUN) 8 7-22 [place] 786342-10-14 08:42:00 Test Item Value Reference Range Interpretation Comments Creatinine Lvl (test code = Creatinine 0.59 0.50-1.40 Lvl) [place] 786342-10-14 08:42:00 Test Item Value Reference Range Interpretation Comments Sodium Lvl (test code = Sodium Lvl) 142 135-145 [place] 786342-10-14 08:42:00 Test Item Value Reference Range Interpretation Comments Potassium Lvl (test code = Potassium 3.6 3.5-5.1 Lvl) [place] 786342-10-14 08:42:00 Test Item Value Reference Range Interpretation Comments Chloride Lvl (test code = Chloride Lvl) 103 95-109 [place] 786342-10-14 08:42:00 Test Item Value Reference Range Interpretation Comments CO2 (test code = CO2) 30 24-32 [place] 786342-10-14 08:42:00 Test Item Value Reference Range Interpretation Comments Calcium Lvl (test code = Calcium Lvl) 9.8 8.5-10.5 [place] 786342-10-14 08:42:00 Test Item Value Reference Range Interpretation Comments Total Protein (test code = Total 7.0 6.4-8.4 Protein) [place] 786342-10-14 08:42:00 Test Item Value Reference Range Interpretation Comments Albumin Lvl (test code = Albumin Lvl) 2.8 3.5-5.0 [place] 786342-10-14 08:42:00 Test Item Value Reference Range Interpretation Comments ALT (test code = ALT) 20 See_Comment [Auto mated message] The system which ge nerated this result transmit fabiano reference range : <=65. The reference range was not used to interpr et this result as aleks l/abnormal. [facility] [employer] [id number] 08:42:00 Test Item Value Reference Range Interpretation Comments AST (test code = AST) 11 See_Comment [Auto mated message] The system which ge nerated this result transmit fabiano reference range : <=37. The reference range was not used to interpr et this result as aleks l/abnormal. [facility] [employer] [id number] 08:42:00 Test Item Value Reference Range Interpretation Comments Alk Phos (test code = Alk Phos) 108 39-136 [facility] [employer] [id number] 08:42:00 Test Item Value Reference Range Interpretation Comments Bili Total (test code = Bili Total) 0.4 0.2-1.3 [facility] [employer] [id number] 08:42:00 Test Item Value Reference Range Interpretation Comments AGAP (test code = AGAP) 12.6 10.0-20.0 [facility] [employer] [id number] 08:42:00 Test Item Value Reference Range Interpretation Comments B/C Ratio (test code = B/C Ratio) 14 1 6-25 [facility] [employer] [id number] 08:42:00 Test Item Value Reference Range Interpretation Comments Globulin (test code = Globulin) 4.2 2.7-4.2 [facility] [employer] [id number] 08:42:00 Test Item Value Reference Range Interpretation Comments A/G Ratio (test code = A/G Ratio) 0.7 1 0.7-1.6 [facility] [employer] [id number] 08:42:00 Test Item Value Reference Range Interpretation Comments eGFR (test code = eGFR) 108 [facility] [employer] [id number] 08:42:00 Test Item Value Reference Range Interpretation Comments Phosphorus (test code = Phosphorus) 5.4 2.5-4.5 [facility] IwbeizvOYXVVQAWMX1621-56-90 08:42:00 Test Item Value Reference Range Interpretation Comments WBC (test code = WBC) 12.5 3.7-10.4 [facility] XyxerqrRCDRPWQXGM2677-54-05 08:42:00 Test Item Value Reference Range Interpretation Comments RBC (test code = RBC) 3.94 4.20-5.40 [facility] CenterNjnwxkkUROVPACMXE0083-94-17 08:42:00 Test Item Value Reference Range Interpretation Comments Hgb (test code = Hgb) 10.6 12.0-16.0 [facility] CenterExfugxmIMWADCLXJQ7522-49-82 08:42:00 Test Item Value Reference Range Interpretation Comments Hct (test code = Hct) 31.6 36.0-48.0 [facility] CenterSwonmunBGTXQURTDJ7928-82-36 08:42:00 Test Item Value Reference Range Interpretation Comments MCV (test code = MCV) 80.2 80.0-98.0 [facility] CenterPyfxdblUSNXCSSSKZ5861-13-68 08:42:00 Test Item Value Reference Range Interpretation Comments MCH (test code = MCH) 26.9 pg 27.0-31.0 [facility] CenterLgzygwqQZXBERMUJO8937-65-91 08:42:00 Test Item Value Reference Range Interpretation Comments MCHC (test code = MCHC) 33.6 32.0-36.0 [facility] CenterWzfecaeLXZIBBPFPC9990-03-99 08:42:00 Test Item Value Reference Range Interpretation Comments RDW (test code = RDW) 16.4 11.5-14.5 [facility] CenterS[id number] 08:42:00 Test Item Value Reference Range Interpretation Comments Platelet (test code = Platelet) 339 133-450 [facility] CenterLfvswwzRSMGQJLKIS0352-61-93 08:42:00 Test Item Value Reference Range Interpretation Comments MPV (test code = MPV) 8.0 7.4-10.4 [facility] CenterWmjorkaXXSYPDFTOA1125-34-00 08:42:00 Test Item Value Reference Range Interpretation Comments Segs (test code = Segs) 77.8 45.0-75.0 [facility] CenterRttymnyIBBSTZQHEU2909-63-51 08:42:00 Test Item Value Reference Range Interpretation Comments Lymphocytes (test code = Lymphocytes) 13.5 20.0-40.0 [place] 439852-10-14 08:42:00 Test Item Value Reference Range Interpretation Comments Monocytes (test code = Monocytes) 6.5 2.0-12.0 [place] 439852-10-14 08:42:00 Test Item Value Reference Range Interpretation Comments Eosinophils (test code = 1.6 See_Comment [A utomated message] The Eosinophils) system which ge nerated this result tra nsmitted reference range : <=4.0. The reference r quynh was not used to int erpret this result as normal/abnormal . [place] [address]-10-14 08:42:00 Test Item Value Reference Range Interpretation Comments Basophils (test code = 0.6 See_Comment [Aut omated message] The Basophils) system which ge nerated this result tra nsmitted reference range : <=1.0. The reference r quynh was not used to int erpret this result as normal/abnormal . [place] [address]-10-14 08:42:00 Test Item Value Reference Range Interpretation Comments Neutrophils # (test code = Neutrophils 9.8 1.5-8.1 #) [place] [address]-10-14 08:42:00 Test Item Value Reference Range Interpretation Comments Lymphocytes # (test code = Lymphocytes 1.7 1.0-5.5 #) [place] [address]-10-14 08:42:00 Test Item Value Reference Range Interpretation Comments Monocytes # (test code 0.8 See_Comment [Aut omated message] The = Monocytes #) system which generated this result tra nsmitted reference range : <=0.8. The reference r quynh was not used to int erpret this result as normal/abnormal . [place] [address]-10-14 08:42:00 Test Item Value Reference Range Interpretation Comments Eosinophils # (test code 0.2 See_Comment [A utomated message] The = Eosinophils #) system whic h generated this result tra nsmitted reference range : <=0.5. The reference r quynh was not used to int erpret this result as normal/abnormal . [place] [address]-10-14 08:42:00 Test Item Value Reference Range Interpretation Comments Basophils # (test code 0.1 See_Comment [Aut omated message] The = Basophils #) system which generated this result tra nsmitted reference range : <=0.2. The reference r quynh was not used to int erpret this result as normal/abnormal . [place] 786342-10-14 08:42:00 Test Item Value Reference Range Interpretation Comments Magnesium Lvl (test code = Magnesium 2.2 1.8-2.4 Lvl) [place] 786342-10-14 08:42:00 Test Item Value Reference Range Interpretation Comments Glucose Lvl (test code = Glucose Lvl) 89 70-99 [place] 786342-10-14 08:42:00 Test Item Value Reference Range Interpretation Comments BUN (test code = BUN) 8 01-18 [place] 786342-10-14 08:42:00 Test Item Value Reference Range Interpretation Comments Creatinine Lvl (test code = Creatinine 0.59 0.50-1.40 Lvl) [facility]2022-10-14 08:42:00 Test Item Value Reference Range Interpretation Comments Sodium Lvl (test code = Sodium Lvl) 142 135-145 [place] 786342-10-14 08:42:00 Test Item Value Reference Range Interpretation Comments Potassium Lvl (test code = Potassium 3.6 3.5-5.1 Lvl) [facility]2022-10-14 08:42:00 Test Item Value Reference Range Interpretation Comments Chloride Lvl (test code = Chloride Lvl) 103 95-109 [place] 786342-10-14 08:42:00 Test Item Value Reference Range Interpretation Comments Magnesium Lvl (test code = Magnesium 2.2 1.8-2.4 Lvl) [facility]2022-10-14 08:42:00 Test Item Value Reference Range Interpretation Comments Glucose Lvl (test code = Glucose Lvl) 89 70-99 [place] 786342-10-14 08:42:00 Test Item Value Reference Range Interpretation Comments BUN (test code = BUN) 8 01-18 [place] 786342-10-14 08:42:00 Test Item Value Reference Range Interpretation Comments Creatinine Lvl (test code = Creatinine 0.59 0.50-1.40 Lvl) [place] 786342-10-14 08:42:00 Test Item Value Reference Range Interpretation Comments Sodium Lvl (test code = Sodium Lvl) 142 135-145 [place] 786342-10-14 08:42:00 Test Item Value Reference Range Interpretation Comments Potassium Lvl (test code = Potassium 3.6 3.5-5.1 Lvl) [place] 786342-10-14 08:42:00 Test Item Value Reference Range Interpretation Comments Chloride Lvl (test code = Chloride Lvl) 103 95-109 [facility] HospitalNetevenMARK [facility] [id number] 08:42:00 Test Item Value Reference Range Interpretation Comments CO2 (test code = CO2) 30 24-32 [facility] [id number] 08:42:00 Test Item Value Reference Range Interpretation Comments Calcium Lvl (test code = Calcium Lvl) 9.8 8.5-10.5 [facility] [id number] 08:42:00 Test Item Value Reference Range Interpretation Comments CO2 (test code = CO2) 30 24-32 [facility] [id number] 08:42:00 Test Item Value Reference Range Interpretation Comments Total Protein (test code = Total 7.0 6.4-8.4 Protein) [place] 786342-10-14 08:42:00 Test Item Value Reference Range Interpretation Comments Albumin Lvl (test code = Albumin Lvl) 2.8 3.5-5.0 [facility] [id number] 08:42:00 Test Item Value Reference Range Interpretation Comments ALT (test code = ALT) 20 See_Comment [Auto mated message] The system which ge nerated this result transmit fabiano reference range : <=65. The reference range was not used to interpr et this result as aleks l/abnormal. [facility] [id number] 08:42:00 Test Item Value Reference Range Interpretation Comments AST (test code = AST) 11 See_Comment [Auto mated message] The system which ge nerated this result transmit fabiano reference range : <=37. The reference range was not used to interpr et this result as aleks l/abnormal. [facility] [employer] [id number] 08:42:00 Test Item Value Reference Range Interpretation Comments Alk Phos (test code = Alk Phos) 108 39-136 [facility] [id number] 08:42:00 Test Item Value Reference Range Interpretation Comments Bili Total (test code = Bili Total) 0.4 0.2-1.3 [facility] [id number] 08:42:00 Test Item Value Reference Range Interpretation Comments AGAP (test code = AGAP) 12.6 10.0-20.0 [facility] [id number] 08:42:00 Test Item Value Reference Range Interpretation Comments B/C Ratio (test code = B/C Ratio) 14 1 6-25 [place] 786342-10-14 08:42:00 Test Item Value Reference Range Interpretation Comments Globulin (test code = Globulin) 4.2 2.7-4.2 [place] [address]-10-14 08:42:00 Test Item Value Reference Range Interpretation Comments A/G Ratio (test code = A/G Ratio) 0.7 1 0.7-1.6 [place] [address]-10-14 08:42:00 Test Item Value Reference Range Interpretation Comments Calcium Lvl (test code = Calcium Lvl) 9.8 8.5-10.5 [place] 786342-10-14 08:42:00 Test Item Value Reference Range Interpretation Comments eGFR (test code = eGFR) 108 [place] 786342-10-14 08:42:00 Test Item Value Reference Range Interpretation Comments Phosphorus (test code = Phosphorus) 5.4 2.5-4.5 [place] 439852-10-14 08:42:00 Test Item Value Reference Range Interpretation Comments WBC (test code = WBC) 12.5 3.7-10.4 [place] [address]-10-14 08:42:00 Test Item Value Reference Range Interpretation Comments RBC (test code = RBC) 3.94 4.20-5.40 [place] [address]-10-14 08:42:00 Test Item Value Reference Range Interpretation Comments Hgb (test code = Hgb) 10.6 12.0-16.0 [place] [address]-10-14 08:42:00 Test Item Value Reference Range Interpretation Comments Hct (test code = Hct) 31.6 36.0-48.0 [place] [address]-10-14 08:42:00 Test Item Value Reference Range Interpretation Comments MCV (test code = MCV) 80.2 80.0-98.0 [place] [address]-10-14 08:42:00 Test Item Value Reference Range Interpretation Comments MCH (test code = MCH) 26.9 pg 27.0-31.0 [place] [address]-10-14 08:42:00 Test Item Value Reference Range Interpretation Comments MCHC (test code = MCHC) 33.6 32.0-36.0 [facility] CenterQxvqnhnAFWDKFANIV9929-16-61 08:42:00 Test Item Value Reference Range Interpretation Comments RDW (test code = RDW) 16.4 11.5-14.5 [facility]2022-10-14 08:42:00 Test Item Value Reference Range Interpretation Comments Total Protein (test code = Total 7.0 6.4-8.4 Protein) [facility] CenterTirelowWUAWWMWWSK5711-43-01 08:42:00 Test Item Value Reference Range Interpretation Comments Platelet (test code = Platelet) 339 133-450 [facility] CenterHuhytteRNOKTQQXLV1063-01-88 08:42:00 Test Item Value Reference Range Interpretation Comments MPV (test code = MPV) 8.0 7.4-10.4 [facility] CenterHaapomeACMXCEKBPM8277-75-87 08:42:00 Test Item Value Reference Range Interpretation Comments Segs (test code = Segs) 77.8 45.0-75.0 [facility] CenterOmvnjtkQPBPZAJHCJ1703-23-96 08:42:00 Test Item Value Reference Range Interpretation Comments Lymphocytes (test code = Lymphocytes) 13.5 20.0-40.0 [facility] CenterQcwtahlJZNQOVIBES4964-96-16 08:42:00 Test Item Value Reference Range Interpretation Comments Monocytes (test code = Monocytes) 6.5 2.0-12.0 [facility] CenterPasghspPXAMZHEPXC3938-04-67 08:42:00 Test Item Value Reference Range Interpretation Comments Eosinophils (test code = 1.6 See_Comment [A utomated message] The Eosinophils) system which ge nerated this result tra nsmitted reference range : <=4.0. The reference r quynh was not used to int erpret this result as normal/abnormal . [facility] CenterNcpcrahOIKJDTGTGT0260-97-89 08:42:00 Test Item Value Reference Range Interpretation Comments Basophils (test code = 0.6 See_Comment [Aut omated message] The Basophils) system which ge nerated this result tra nsmitted reference range : <=1.0. The reference r quynh was not used to int erpret this result as normal/abnormal . [facility] CenterVeljaneYRKRAXZBJD9293-04-97 08:42:00 Test Item Value Reference Range Interpretation Comments Neutrophils # (test code = Neutrophils 9.8 1.5-8.1 #) [address]10-14 08:42:00 Test Item Value Reference Range Interpretation Comments Lymphocytes # (test code = Lymphocytes 1.7 1.0-5.5 #) [place] [address]-10-14 08:42:00 Test Item Value Reference Range Interpretation Comments Monocytes # (test code 0.8 See_Comment [Aut omated message] The = Monocytes #) system which generated this result tra nsmitted reference range : <=0.8. The reference r quynh was not used to int erpret this result as normal/abnormal . [address]10-14 08:42:00 Test Item Value Reference Range Interpretation Comments Albumin Lvl (test code = Albumin Lvl) 2.8 3.5-5.0 [place] [address]-10-14 08:42:00 Test Item Value Reference Range Interpretation Comments Eosinophils # (test code 0.2 See_Comment [A utomated message] The = Eosinophils #) system whic h generated this result tra nsmitted reference range : <=0.5. The reference r quynh was not used to int erpret this result as normal/abnormal . [address]10-14 08:42:00 Test Item Value Reference Range Interpretation Comments Basophils # (test code 0.1 See_Comment [Aut omated message] The = Basophils #) system which generated this result tra nsmitted reference range : <=0.2. The reference r quynh was not used to int erpret this result as normal/abnormal . [place] [address]-10-14 08:42:00 Test Item Value Reference Range Interpretation Comments ALT (test code = ALT) 20 See_Comment [Auto mated message] The system which ge nerated this result transmit fabiano reference range : <=65. The reference range was not used to interpr et this result as aleks l/abnormal. [facility] [id number] 08:42:00 Test Item Value Reference Range Interpretation Comments AST (test code = AST) 11 See_Comment [Auto mated message] The system which ge nerated this result transmit fabiano reference range : <=37. The reference range was not used to interpr et this result as aleks l/abnormal. [facility] [id number] 08:42:00 Test Item Value Reference Range Interpretation Comments Alk Phos (test code = Alk Phos) 108 39-136 [place] 786342-10-14 08:42:00 Test Item Value Reference Range Interpretation Comments Bili Total (test code = Bili Total) 0.4 0.2-1.3 [place] 786342-10-14 08:42:00 Test Item Value Reference Range Interpretation Comments AGAP (test code = AGAP) 12.6 10.0-20.0 [place] 786342-10-14 08:42:00 Test Item Value Reference Range Interpretation Comments B/C Ratio (test code = B/C Ratio) 14 1 6-25 [place] [address]-10-14 08:42:00 Test Item Value Reference Range Interpretation Comments Globulin (test code = Globulin) 4.2 2.7-4.2 [place] 786342-10-14 08:42:00 Test Item Value Reference Range Interpretation Comments A/G Ratio (test code = A/G Ratio) 0.7 1 0.7-1.6 [place] 786342-10-14 08:42:00 Test Item Value Reference Range Interpretation Comments eGFR (test code = eGFR) 108 [place] 786342-10-14 08:42:00 Test Item Value Reference Range Interpretation Comments Phosphorus (test code = Phosphorus) 5.4 2.5-4.5 [place] 439852-10-14 08:42:00 Test Item Value Reference Range Interpretation Comments WBC (test code = WBC) 12.5 3.7-10.4 [place] 439852-10-14 08:42:00 Test Item Value Reference Range Interpretation Comments RBC (test code = RBC) 3.94 4.20-5.40 [place] [address]-10-14 08:42:00 Test Item Value Reference Range Interpretation Comments Hgb (test code = Hgb) 10.6 12.0-16.0 [place] [address]-10-14 08:42:00 Test Item Value Reference Range Interpretation Comments Hct (test code = Hct) 31.6 36.0-48.0 [place] 439852-10-14 08:42:00 Test Item Value Reference Range Interpretation Comments MCV (test code = MCV) 80.2 80.0-98.0 [place] 439852-10-14 08:42:00 Test Item Value Reference Range Interpretation Comments MCH (test code = MCH) 26.9 pg 27.0-31.0 [place] 439852-10-14 08:42:00 Test Item Value Reference Range Interpretation Comments MCHC (test code = MCHC) 33.6 32.0-36.0 [place] 439852-10-14 08:42:00 Test Item Value Reference Range Interpretation Comments RDW (test code = RDW) 16.4 11.5-14.5 [place] 439852-10-14 08:42:00 Test Item Value Reference Range Interpretation Comments Platelet (test code = Platelet) 339 133-450 [facility] CenterSfxitjnIHOMKTBFMD0161-77-88 08:42:00 Test Item Value Reference Range Interpretation Comments MPV (test code = MPV) 8.0 7.4-10.4 [place] 439852-10-14 08:42:00 Test Item Value Reference Range Interpretation Comments Segs (test code = Segs) 77.8 45.0-75.0 [place] 439852-10-14 08:42:00 Test Item Value Reference Range Interpretation Comments Lymphocytes (test code = Lymphocytes) 13.5 20.0-40.0 [place] [address]-10-14 08:42:00 Test Item Value Reference Range Interpretation Comments Monocytes (test code = Monocytes) 6.5 2.0-12.0 [facility]2022-10-14 08:42:00 Test Item Value Reference Range Interpretation Comments Magnesium Lvl (test code = Magnesium 2.2 1.8-2.4 Lvl) [place] 786342-10-14 08:42:00 Test Item Value Reference Range Interpretation Comments Glucose Lvl (test code = Glucose Lvl) 89 70-99 [place] 786342-10-14 08:42:00 Test Item Value Reference Range Interpretation Comments BUN (test code = BUN) 8 7- [place] 786342-10-14 08:42:00 Test Item Value Reference Range Interpretation Comments Creatinine Lvl (test code = Creatinine 0.59 0.50-1.40 Lvl) [place] 786342-10-14 08:42:00 Test Item Value Reference Range Interpretation Comments Sodium Lvl (test code = Sodium Lvl) 142 135-145 [address]10-14 08:42:00 Test Item Value Reference Range Interpretation Comments Potassium Lvl (test code = Potassium 3.6 3.5-5.1 Lvl) [address]10-14 08:42:00 Test Item Value Reference Range Interpretation Comments Chloride Lvl (test code = Chloride Lvl) 103 95-109 [place] [address]-10-14 08:42:00 Test Item Value Reference Range Interpretation Comments CO2 (test code = CO2) 30 24-32 [facility]GDEUGLKOYO2141-76-55 08:42:00 Test Item Value Reference Range Interpretation Comments Eosinophils (test code = 1.6 See_Comment [A utomated message] The Eosinophils) system which ge nerated this result tra nsmitted reference range : <=4.0. The reference r quynh was not used to int erpret this result as normal/abnormal . [place] [address]-10-14 08:42:00 Test Item Value Reference Range Interpretation Comments Calcium Lvl (test code = Calcium Lvl) 9.8 8.5-10.5 [address]10-14 08:42:00 Test Item Value Reference Range Interpretation Comments Total Protein (test code = Total 7.0 6.4-8.4 Protein) [address]10-14 08:42:00 Test Item Value Reference Range Interpretation Comments Albumin Lvl (test code = Albumin Lvl) 2.8 3.5-5.0 [address]10-14 08:42:00 Test Item Value Reference Range Interpretation Comments ALT (test code = ALT) 20 See_Comment [Auto mated message] The system which ge nerated this result transmit fabiano reference range : <=65. The reference range was not used to interpr et this result as aleks l/abnormal. [address]10-14 08:42:00 Test Item Value Reference Range Interpretation Comments AST (test code = AST) 11 See_Comment [Auto mated message] The system which ge nerated this result transmit fabiano reference range : <=37. The reference range was not used to interpr et this result as aleks l/abnormal. [place] 786342-10-14 08:42:00 Test Item Value Reference Range Interpretation Comments Alk Phos (test code = Alk Phos) 108 39-136 [place] 786342-10-14 08:42:00 Test Item Value Reference Range Interpretation Comments Bili Total (test code = Bili Total) 0.4 0.2-1.3 [place] 786342-10-14 08:42:00 Test Item Value Reference Range Interpretation Comments AGAP (test code = AGAP) 12.6 10.0-20.0 [place] [address]-10-14 08:42:00 Test Item Value Reference Range Interpretation Comments B/C Ratio (test code = B/C Ratio) 14 1 6-25 [place] 786342-10-14 08:42:00 Test Item Value Reference Range Interpretation Comments Globulin (test code = Globulin) 4.2 2.7-4.2 [place] 439852-10-14 08:42:00 Test Item Value Reference Range Interpretation Comments Basophils (test code = 0.6 See_Comment [Aut omated message] The Basophils) system which ge nerated this result tra nsmitted reference range : <=1.0. The reference r quynh was not used to int erpret this result as normal/abnormal . [place] 786342-10-14 08:42:00 Test Item Value Reference Range Interpretation Comments A/G Ratio (test code = A/G Ratio) 0.7 1 0.7-1.6 [place] 786342-10-14 08:42:00 Test Item Value Reference Range Interpretation Comments eGFR (test code = eGFR) 108 [place] 786342-10-14 08:42:00 Test Item Value Reference Range Interpretation Comments Phosphorus (test code = Phosphorus) 5.4 2.5-4.5 [place] 439852-10-14 08:42:00 Test Item Value Reference Range Interpretation Comments WBC (test code = WBC) 12.5 3.7-10.4 [place] [address]-10-14 08:42:00 Test Item Value Reference Range Interpretation Comments RBC (test code = RBC) 3.94 4.20-5.40 [place] [address]-10-14 08:42:00 Test Item Value Reference Range Interpretation Comments Hgb (test code = Hgb) 10.6 12.0-16.0 [facility] CenterQgjgcmbOVQRXJLSGC7912-58-77 08:42:00 Test Item Value Reference Range Interpretation Comments Hct (test code = Hct) 31.6 36.0-48.0 [facility] CenterRwivsurAPJVUKPQOT1068-30-68 08:42:00 Test Item Value Reference Range Interpretation Comments MCV (test code = MCV) 80.2 80.0-98.0 [facility] CenterNqdasyqEEEVEVNKZH3205-07-59 08:42:00 Test Item Value Reference Range Interpretation Comments MCH (test code = MCH) 26.9 pg 27.0-31.0 [facility] CenterSwjcsakZRKKKQTGUC8041-24-29 08:42:00 Test Item Value Reference Range Interpretation Comments MCHC (test code = MCHC) 33.6 32.0-36.0 [facility] CenterOdbgfspFXEOEIWAED8459-33-02 08:42:00 Test Item Value Reference Range Interpretation Comments Neutrophils # (test code = Neutrophils 9.8 1.5-8.1 #) [facility] CenterKfiwqwyDOGNCWJMIG0762-79-36 08:42:00 Test Item Value Reference Range Interpretation Comments RDW (test code = RDW) 16.4 11.5-14.5 [facility] CenterDezewwtGETUJEHRFH7548-02-18 08:42:00 Test Item Value Reference Range Interpretation Comments Platelet (test code = Platelet) 339 133-450 [facility] CenterMqzkiafNPHPBLTHFE3735-12-31 08:42:00 Test Item Value Reference Range Interpretation Comments MPV (test code = MPV) 8.0 7.4-10.4 [facility] CenterRfrlwtkKNUDMIRNUJ0038-68-34 08:42:00 Test Item Value Reference Range Interpretation Comments Segs (test code = Segs) 77.8 45.0-75.0 [facility] CenterMoicdvdNKPKWOQSIM8824-78-89 08:42:00 Test Item Value Reference Range Interpretation Comments Lymphocytes (test code = Lymphocytes) 13.5 20.0-40.0 [facility] CenterYukkgkvCDOOQZWFNZ8353-87-71 08:42:00 Test Item Value Reference Range Interpretation Comments Monocytes (test code = Monocytes) 6.5 2.0-12.0 [facility] CenterNlhkheaAAHPFUOLJU3147-82-49 08:42:00 Test Item Value Reference Range Interpretation Comments Eosinophils (test code = 1.6 See_Comment [A utomated message] The Eosinophils) system which ge nerated this result tra nsmitted reference range : <=4.0. The reference r quynh was not used to int erpret this result as normal/abnormal . [place] [address]-10-14 08:42:00 Test Item Value Reference Range Interpretation Comments Basophils (test code = 0.6 See_Comment [Aut omated message] The Basophils) system which ge nerated this result tra nsmitted reference range : <=1.0. The reference r quynh was not used to int erpret this result as normal/abnormal . [place] [address]-10-14 08:42:00 Test Item Value Reference Range Interpretation Comments Neutrophils # (test code = Neutrophils 9.8 1.5-8.1 #) [address]10-14 08:42:00 Test Item Value Reference Range Interpretation Comments Lymphocytes # (test code = Lymphocytes 1.7 1.0-5.5 #) [place] [address]-10-14 08:42:00 Test Item Value Reference Range Interpretation Comments Lymphocytes # (test code = Lymphocytes 1.7 1.0-5.5 #) [place] [address]-10-14 08:42:00 Test Item Value Reference Range Interpretation Comments Monocytes # (test code 0.8 See_Comment [Aut omated message] The = Monocytes #) system which generated this result tra nsmitted reference range : <=0.8. The reference r quynh was not used to int erpret this result as normal/abnormal . [place] [address]-10-14 08:42:00 Test Item Value Reference Range Interpretation Comments Eosinophils # (test code 0.2 See_Comment [A utomated message] The = Eosinophils #) system whic h generated this result tra nsmitted reference range : <=0.5. The reference r quynh was not used to int erpret this result as normal/abnormal . [place] [address]-10-14 08:42:00 Test Item Value Reference Range Interpretation Comments Basophils # (test code 0.1 See_Comment [Aut omated message] The = Basophils #) system which generated this result tra nsmitted reference range : <=0.2. The reference r quynh was not used to int erpret this result as normal/abnormal . [place] [address]-10-14 08:42:00 Test Item Value Reference Range Interpretation Comments Monocytes # (test code 0.8 See_Comment [Aut omated message] The = Monocytes #) system which generated this result tra nsmitted reference range : <=0.8. The reference r quynh was not used to int erpret this result as normal/abnormal . [place] [address]-10-14 08:42:00 Test Item Value Reference Range Interpretation Comments Eosinophils # (test code 0.2 See_Comment [A utomated message] The = Eosinophils #) system whic h generated this result tra nsmitted reference range : <=0.5. The reference r quynh was not used to int erpret this result as normal/abnormal . [place] [address]-10-14 08:42:00 Test Item Value Reference Range Interpretation Comments Basophils # (test code 0.1 See_Comment [Aut omated message] The = Basophils #) system which generated this result tra nsmitted reference range : <=0.2. The reference r quynh was not used to int erpret this result as normal/abnormal . [place] 786342-10-14 08:42:00 Test Item Value Reference Range Interpretation Comments Magnesium Lvl (test code = Magnesium 2.2 1.8-2.4 Lvl) [place] 786342-10-14 08:42:00 Test Item Value Reference Range Interpretation Comments Glucose Lvl (test code = Glucose Lvl) 89 70-99 [facility] [id number] 08:42:00 Test Item Value Reference Range Interpretation Comments BUN (test code = BUN) 8 7-22 [facility] [id number] 08:42:00 Test Item Value Reference Range Interpretation Comments Creatinine Lvl (test code = Creatinine 0.59 0.50-1.40 Lvl) [place] [address]-10-14 08:42:00 Test Item Value Reference Range Interpretation Comments Sodium Lvl (test code = Sodium Lvl) 142 135-145 [facility] [id number] 08:42:00 Test Item Value Reference Range Interpretation Comments Potassium Lvl (test code = Potassium 3.6 3.5-5.1 Lvl) [facility] [id number] 08:42:00 Test Item Value Reference Range Interpretation Comments Chloride Lvl (test code = Chloride Lvl) 103 95-109 [facility] KYCZQ3461-15-13 08:42:00 Test Item Value Reference Range Interpretation Comments CO2 (test code = CO2) 30 24-32 [facility] HospitalNetevenMARK [facility] [address]YKEBS5448-96-74 08:42:00 Test Item Value Reference Range Interpretation Comments Calcium Lvl (test code = Calcium Lvl) 9.8 8.5-10.5 [facility] [id number] 08:42:00 Test Item Value Reference Range Interpretation Comments Total Protein (test code = Total 7.0 6.4-8.4 Protein) [facility]NetevenMARK [facility] [id number] 08:42:00 Test Item Value Reference Range Interpretation Comments Albumin Lvl (test code = Albumin Lvl) 2.8 3.5-5.0 [facility] [id number] 08:42:00 Test Item Value Reference Range Interpretation Comments ALT (test code = ALT) 20 See_Comment [Auto mated message] The system which ge nerated this result transmit fabiano reference range : <=65. The reference range was not used to interpr et this result as aleks l/abnormal. [facility] [employer] [id number] 08:42:00 Test Item Value Reference Range Interpretation Comments AST (test code = AST) 11 See_Comment [Auto mated message] The system which ge nerated this result transmit fabiano reference range : <=37. The reference range was not used to interpr et this result as aleks l/abnormal. [facility] [employer] [id number] 08:42:00 Test Item Value Reference Range Interpretation Comments Alk Phos (test code = Alk Phos) 108 39-136 [facility] [id number] 08:42:00 Test Item Value Reference Range Interpretation Comments Bili Total (test code = Bili Total) 0.4 0.2-1.3 [facility] [id number] 08:42:00 Test Item Value Reference Range Interpretation Comments AGAP (test code = AGAP) 12.6 10.0-20.0 [facility] [employer] [id number] 08:42:00 Test Item Value Reference Range Interpretation Comments B/C Ratio (test code = B/C Ratio) 14 1 6-25 [place] 786342-10-14 08:42:00 Test Item Value Reference Range Interpretation Comments Globulin (test code = Globulin) 4.2 2.7-4.2 [place] 786342-10-14 08:42:00 Test Item Value Reference Range Interpretation Comments A/G Ratio (test code = A/G Ratio) 0.7 1 0.7-1.6 [place] [address]-10-14 08:42:00 Test Item Value Reference Range Interpretation Comments eGFR (test code = eGFR) 108 [place] 786342-10-14 08:42:00 Test Item Value Reference Range Interpretation Comments Phosphorus (test code = Phosphorus) 5.4 2.5-4.5 [place] [address]-10-14 08:42:00 Test Item Value Reference Range Interpretation Comments WBC (test code = WBC) 12.5 3.7-10.4 [place] 439852-10-14 08:42:00 Test Item Value Reference Range Interpretation Comments RBC (test code = RBC) 3.94 4.20-5.40 [place] [address]-10-14 08:42:00 Test Item Value Reference Range Interpretation Comments Hgb (test code = Hgb) 10.6 12.0-16.0 [place] [address]-10-14 08:42:00 Test Item Value Reference Range Interpretation Comments Hct (test code = Hct) 31.6 36.0-48.0 [place] [address]-10-14 08:42:00 Test Item Value Reference Range Interpretation Comments MCV (test code = MCV) 80.2 80.0-98.0 [place] [address]-10-14 08:42:00 Test Item Value Reference Range Interpretation Comments MCH (test code = MCH) 26.9 pg 27.0-31.0 [place] [address]-10-14 08:42:00 Test Item Value Reference Range Interpretation Comments MCHC (test code = MCHC) 33.6 32.0-36.0 [place] [address]-10-14 08:42:00 Test Item Value Reference Range Interpretation Comments RDW (test code = RDW) 16.4 11.5-14.5 [place] [address]-10-14 08:42:00 Test Item Value Reference Range Interpretation Comments Platelet (test code = Platelet) 339 133-450 [place] [address]-10-14 08:42:00 Test Item Value Reference Range Interpretation Comments MPV (test code = MPV) 8.0 7.4-10.4 [place] 439852-10-14 08:42:00 Test Item Value Reference Range Interpretation Comments Segs (test code = Segs) 77.8 45.0-75.0 [place] [address]-10-14 08:42:00 Test Item Value Reference Range Interpretation Comments Lymphocytes (test code = Lymphocytes) 13.5 20.0-40.0 [place] [address]-10-14 08:42:00 Test Item Value Reference Range Interpretation Comments Monocytes (test code = Monocytes) 6.5 2.0-12.0 [place] 439852-10-14 08:42:00 Test Item Value Reference Range Interpretation Comments Eosinophils (test code = 1.6 See_Comment [A utomated message] The Eosinophils) system which ge nerated this result tra nsmitted reference range : <=4.0. The reference r quynh was not used to int erpret this result as normal/abnormal . [place] 439852-10-14 08:42:00 Test Item Value Reference Range Interpretation Comments Basophils (test code = 0.6 See_Comment [Aut omated message] The Basophils) system which ge nerated this result tra nsmitted reference range : <=1.0. The reference r quynh was not used to int erpret this result as normal/abnormal . [facility] [id number] 08:42:00 Test Item Value Reference Range Interpretation Comments Neutrophils # (test code = Neutrophils 9.8 1.5-8.1 #) [place] [address]-10-14 08:42:00 Test Item Value Reference Range Interpretation Comments Lymphocytes # (test code = Lymphocytes 1.7 1.0-5.5 #) [place] [address]-10-14 08:42:00 Test Item Value Reference Range Interpretation Comments Monocytes # (test code 0.8 See_Comment [Aut omated message] The = Monocytes #) system which generated this result tra nsmitted reference range : <=0.8. The reference r quynh was not used to int erpret this result as normal/abnormal . [place] [address]-10-14 08:42:00 Test Item Value Reference Range Interpretation Comments Eosinophils # (test code 0.2 See_Comment [A utomated message] The = Eosinophils #) system whic h generated this result tra nsmitted reference range : <=0.5. The reference r quynh was not used to int erpret this result as normal/abnormal . [place] [address]-10-14 08:42:00 Test Item Value Reference Range Interpretation Comments Basophils # (test code 0.1 See_Comment [Aut omated message] The = Basophils #) system which generated this result tra nsmitted reference range : <=0.2. The reference r quynh was not used to int erpret this result as normal/abnormal . [place] 786342-10-14 08:42:00 Test Item Value Reference Range Interpretation Comments Magnesium Lvl (test code = Magnesium 2.2 1.8-2.4 Lvl) [place] [address]-10-14 08:42:00 Test Item Value Reference Range Interpretation Comments Glucose Lvl (test code = Glucose Lvl) 89 70-99 [place] 786342-10-14 08:42:00 Test Item Value Reference Range Interpretation Comments BUN (test code = BUN) 8 7-22 [place] [address]-10-14 08:42:00 Test Item Value Reference Range Interpretation Comments Creatinine Lvl (test code = Creatinine 0.59 0.50-1.40 Lvl) [place] [address]-10-14 08:42:00 Test Item Value Reference Range Interpretation Comments Sodium Lvl (test code = Sodium Lvl) 142 135-145 [place] [address]-10-14 08:42:00 Test Item Value Reference Range Interpretation Comments Potassium Lvl (test code = Potassium 3.6 3.5-5.1 Lvl) [place] [address]-10-14 08:42:00 Test Item Value Reference Range Interpretation Comments Chloride Lvl (test code = Chloride Lvl) 103 95-109 [place] 786342-10-14 08:42:00 Test Item Value Reference Range Interpretation Comments CO2 (test code = CO2) 30 24-32 [facility] [id number] 08:42:00 Test Item Value Reference Range Interpretation Comments Calcium Lvl (test code = Calcium Lvl) 9.8 8.5-10.5 [facility] [id number] 08:42:00 Test Item Value Reference Range Interpretation Comments Total Protein (test code = Total 7.0 6.4-8.4 Protein) [facility] [id number] 08:42:00 Test Item Value Reference Range Interpretation Comments Albumin Lvl (test code = Albumin Lvl) 2.8 3.5-5.0 [facility] [id number] 08:42:00 Test Item Value Reference Range Interpretation Comments ALT (test code = ALT) 20 See_Comment [Auto mated message] The system which ge nerated this result transmit fabiano reference range : <=65. The reference range was not used to interpr et this result as aleks l/abnormal. [facility] [employer] [id number] 08:42:00 Test Item Value Reference Range Interpretation Comments AST (test code = AST) 11 See_Comment [Auto mated message] The system which ge nerated this result transmit fabiano reference range : <=37. The reference range was not used to interpr et this result as aleks l/abnormal. [facility] [employer] [id number] 08:42:00 Test Item Value Reference Range Interpretation Comments Alk Phos (test code = Alk Phos) 108 39-136 [facility] [employer] [id number] 08:42:00 Test Item Value Reference Range Interpretation Comments Bili Total (test code = Bili Total) 0.4 0.2-1.3 [facility] [employer] [id number] 08:42:00 Test Item Value Reference Range Interpretation Comments AGAP (test code = AGAP) 12.6 10.0-20.0 [facility] [employer] [id number] 08:42:00 Test Item Value Reference Range Interpretation Comments B/C Ratio (test code = B/C Ratio) 14 1 6-25 [facility] [id number] 08:42:00 Test Item Value Reference Range Interpretation Comments Globulin (test code = Globulin) 4.2 2.7-4.2 [facility] [place] [id number] 08:42:00 Test Item Value Reference Range Interpretation Comments A/G Ratio (test code = A/G Ratio) 0.7 1 0.7-1.6 [place] 786342-10-14 08:42:00 Test Item Value Reference Range Interpretation Comments eGFR (test code = eGFR) 108 [place] 786342-10-14 08:42:00 Test Item Value Reference Range Interpretation Comments Phosphorus (test code = Phosphorus) 5.4 2.5-4.5 [place] [address]-10-14 08:42:00 Test Item Value Reference Range Interpretation Comments WBC (test code = WBC) 12.5 3.7-10.4 [place] [address]-10-14 08:42:00 Test Item Value Reference Range Interpretation Comments RBC (test code = RBC) 3.94 4.20-5.40 [place] [address]-10-14 08:42:00 Test Item Value Reference Range Interpretation Comments Hgb (test code = Hgb) 10.6 12.0-16.0 [place] [address]-10-14 08:42:00 Test Item Value Reference Range Interpretation Comments Hct (test code = Hct) 31.6 36.0-48.0 [place] [address]-10-14 08:42:00 Test Item Value Reference Range Interpretation Comments MCV (test code = MCV) 80.2 80.0-98.0 [place] [address]-10-14 08:42:00 Test Item Value Reference Range Interpretation Comments MCH (test code = MCH) 26.9 pg 27.0-31.0 [place] [address]-10-14 08:42:00 Test Item Value Reference Range Interpretation Comments MCHC (test code = MCHC) 33.6 32.0-36.0 [place] [address]-10-14 08:42:00 Test Item Value Reference Range Interpretation Comments RDW (test code = RDW) 16.4 11.5-14.5 [place] 439852-10-14 08:42:00 Test Item Value Reference Range Interpretation Comments Platelet (test code = Platelet) 339 133-450 [place] 439852-10-14 08:42:00 Test Item Value Reference Range Interpretation Comments MPV (test code = MPV) 8.0 7.4-10.4 [place] [address]-10-14 08:42:00 Test Item Value Reference Range Interpretation Comments Segs (test code = Segs) 77.8 45.0-75.0 [place] 439852-10-14 08:42:00 Test Item Value Reference Range Interpretation Comments Lymphocytes (test code = Lymphocytes) 13.5 20.0-40.0 [place] 439852-10-14 08:42:00 Test Item Value Reference Range Interpretation Comments Monocytes (test code = Monocytes) 6.5 2.0-12.0 [place] [address]-10-14 08:42:00 Test Item Value Reference Range Interpretation Comments Eosinophils (test code = 1.6 See_Comment [A utomated message] The Eosinophils) system which ge nerated this result tra nsmitted reference range : <=4.0. The reference r quynh was not used to int erpret this result as normal/abnormal . [place] [address]-10-14 08:42:00 Test Item Value Reference Range Interpretation Comments Basophils (test code = 0.6 See_Comment [Aut omated message] The Basophils) system which ge nerated this result tra nsmitted reference range : <=1.0. The reference r quynh was not used to int erpret this result as normal/abnormal . [place] 439852-10-14 08:42:00 Test Item Value Reference Range Interpretation Comments Neutrophils # (test code = Neutrophils 9.8 1.5-8.1 #) [place] 439852-10-14 08:42:00 Test Item Value Reference Range Interpretation Comments Lymphocytes # (test code = Lymphocytes 1.7 1.0-5.5 #) [place] [address]-10-14 08:42:00 Test Item Value Reference Range Interpretation Comments Monocytes # (test code 0.8 See_Comment [Aut omated message] The = Monocytes #) system which generated this result tra nsmitted reference range : <=0.8. The reference r quynh was not used to int erpret this result as normal/abnormal . [place] [address]-10-14 08:42:00 Test Item Value Reference Range Interpretation Comments Eosinophils # (test code 0.2 See_Comment [A utomated message] The = Eosinophils #) system whic h generated this result tra nsmitted reference range : <=0.5. The reference r quynh was not used to int erpret this result as normal/abnormal . [id number] 08:42:00 Test Item Value Reference Range Interpretation Comments Basophils # (test code 0.1 See_Comment [Aut omated message] The = Basophils #) system which generated this result tra nsmitted reference range : <=0.2. The reference r quynh was not used to int erpret this result as normal/abnormal . [place] [address]-10-14 08:42:00 Test Item Value Reference Range Interpretation Comments Magnesium Lvl (test code = Magnesium 2.2 1.8-2.4 Lvl) [place] 786342-10-14 08:42:00 Test Item Value Reference Range Interpretation Comments Glucose Lvl (test code = Glucose Lvl) 89 70-99 [place] 786342-10-14 08:42:00 Test Item Value Reference Range Interpretation Comments BUN (test code = BUN) 8 7-22 [place] 786342-10-14 08:42:00 Test Item Value Reference Range Interpretation Comments Creatinine Lvl (test code = Creatinine 0.59 0.50-1.40 Lvl) [place] 786342-10-14 08:42:00 Test Item Value Reference Range Interpretation Comments Sodium Lvl (test code = Sodium Lvl) 142 135-145 [place] 786342-10-14 08:42:00 Test Item Value Reference Range Interpretation Comments Potassium Lvl (test code = Potassium 3.6 3.5-5.1 Lvl) [place] 786342-10-14 08:42:00 Test Item Value Reference Range Interpretation Comments Chloride Lvl (test code = Chloride Lvl) 103 95-109 [place] 786342-10-14 08:42:00 Test Item Value Reference Range Interpretation Comments CO2 (test code = CO2) 30 24-32 [place] [address]-10-14 08:42:00 Test Item Value Reference Range Interpretation Comments Calcium Lvl (test code = Calcium Lvl) 9.8 8.5-10.5 [place] 786342-10-14 08:42:00 Test Item Value Reference Range Interpretation Comments Total Protein (test code = Total 7.0 6.4-8.4 Protein) [facility] [id number] 08:42:00 Test Item Value Reference Range Interpretation Comments Albumin Lvl (test code = Albumin Lvl) 2.8 3.5-5.0 [facility] [id number] 08:42:00 Test Item Value Reference Range Interpretation Comments ALT (test code = ALT) 20 See_Comment [Auto mated message] The system which ge nerated this result transmit fabiano reference range : <=65. The reference range was not used to interpr et this result as aleks l/abnormal. [facility] [employer] [id number] 08:42:00 Test Item Value Reference Range Interpretation Comments AST (test code = AST) 11 See_Comment [Auto mated message] The system which ge nerated this result transmit fabiano reference range : <=37. The reference range was not used to interpr et this result as aleks l/abnormal. [facility] [employer] [id number] 08:42:00 Test Item Value Reference Range Interpretation Comments Alk Phos (test code = Alk Phos) 108 39-136 [facility] [employer] [id number] 08:42:00 Test Item Value Reference Range Interpretation Comments Bili Total (test code = Bili Total) 0.4 0.2-1.3 [facility] [id number] 08:42:00 Test Item Value Reference Range Interpretation Comments AGAP (test code = AGAP) 12.6 10.0-20.0 [facility] [employer] [id number] 08:42:00 Test Item Value Reference Range Interpretation Comments B/C Ratio (test code = B/C Ratio) 14 1 6-25 [facility] [employer] [id number] 08:42:00 Test Item Value Reference Range Interpretation Comments Globulin (test code = Globulin) 4.2 2.7-4.2 [facility] [employer] [id number] 08:42:00 Test Item Value Reference Range Interpretation Comments A/G Ratio (test code = A/G Ratio) 0.7 1 0.7-1.6 [facility] [employer] [id number] 08:42:00 Test Item Value Reference Range Interpretation Comments eGFR (test code = eGFR) 108 [facility]2022-10-14 08:42:00 Test Item Value Reference Range Interpretation Comments Phosphorus (test code = Phosphorus) 5.4 2.5-4.5 [place] 439852-10-14 08:42:00 Test Item Value Reference Range Interpretation Comments WBC (test code = WBC) 12.5 3.7-10.4 [place] 439852-10-14 08:42:00 Test Item Value Reference Range Interpretation Comments RBC (test code = RBC) 3.94 4.20-5.40 [place] 439852-10-14 08:42:00 Test Item Value Reference Range Interpretation Comments Hgb (test code = Hgb) 10.6 12.0-16.0 [place] [address]-10-14 08:42:00 Test Item Value Reference Range Interpretation Comments Hct (test code = Hct) 31.6 36.0-48.0 [place] 439852-10-14 08:42:00 Test Item Value Reference Range Interpretation Comments MCV (test code = MCV) 80.2 80.0-98.0 [place] [address]-10-14 08:42:00 Test Item Value Reference Range Interpretation Comments MCH (test code = MCH) 26.9 pg 27.0-31.0 [facility] [id number] 08:42:00 Test Item Value Reference Range Interpretation Comments MCHC (test code = MCHC) 33.6 32.0-36.0 [facility] CenterHvlpnpnQIFOKQLXSS0475-71-87 08:42:00 Test Item Value Reference Range Interpretation Comments RDW (test code = RDW) 16.4 11.5-14.5 [place] [address]-10-14 08:42:00 Test Item Value Reference Range Interpretation Comments Platelet (test code = Platelet) 339 133-450 [facility] CenterLlugkpiORPKPHVLTS9827-48-03 08:42:00 Test Item Value Reference Range Interpretation Comments MPV (test code = MPV) 8.0 7.4-10.4 [place] [address]-10-14 08:42:00 Test Item Value Reference Range Interpretation Comments Segs (test code = Segs) 77.8 45.0-75.0 [place] 439852-10-14 08:42:00 Test Item Value Reference Range Interpretation Comments Lymphocytes (test code = Lymphocytes) 13.5 20.0-40.0 [place] 439852-10-14 08:42:00 Test Item Value Reference Range Interpretation Comments Monocytes (test code = Monocytes) 6.5 2.0-12.0 [facility] CenterApcnqxjMFAASHIRUO0779-44-03 08:42:00 Test Item Value Reference Range Interpretation Comments Eosinophils (test code = 1.6 See_Comment [A utomated message] The Eosinophils) system which ge nerated this result tra nsmitted reference range : <=4.0. The reference r quynh was not used to int erpret this result as normal/abnormal . [facility] C[id number] 08:42:00 Test Item Value Reference Range Interpretation Comments Basophils (test code = 0.6 See_Comment [Aut omated message] The Basophils) system which ge nerated this result tra nsmitted reference range : <=1.0. The reference r quynh was not used to int erpret this result as normal/abnormal . [facility] CenterAhwenpuXXSJOEJLYT8671-67-10 08:42:00 Test Item Value Reference Range Interpretation Comments Neutrophils # (test code = Neutrophils 9.8 1.5-8.1 #) [facility] CenterKcgabczJMCXOSDCGS7735-44-62 08:42:00 Test Item Value Reference Range Interpretation Comments Lymphocytes # (test code = Lymphocytes 1.7 1.0-5.5 #) [facility] CenterIhwsqozGOCHGQVOZZ4248-66-68 08:42:00 Test Item Value Reference Range Interpretation Comments Monocytes # (test code 0.8 See_Comment [Aut omated message] The = Monocytes #) system which generated this result tra nsmitted reference range : <=0.8. The reference r quynh was not used to int erpret this result as normal/abnormal . [facility] CenterFlfmqfdVMPNIXLOGA5379-10-49 08:42:00 Test Item Value Reference Range Interpretation Comments Eosinophils # (test code 0.2 See_Comment [A utomated message] The = Eosinophils #) system ic h generated this result tra nsmitted reference range : <=0.5. The reference r quynh was not used to int erpret this result as normal/abnormal . [facility] CenterXgphcfgBZZPJGQBEN4157-61-55 08:42:00 Test Item Value Reference Range Interpretation Comments Basophils # (test code 0.1 See_Comment [Aut omated message] The = Basophils #) system which generated this result tra nsmitted reference range : <=0.2. The reference r quynh was not used to int erpret this result as normal/abnormal . [facility] [id number] 08:42:00 Test Item Value Reference Range Interpretation Comments Magnesium Lvl (test code = Magnesium 2.2 1.8-2.4 Lvl) [place] 786342-10-14 08:42:00 Test Item Value Reference Range Interpretation Comments Glucose Lvl (test code = Glucose Lvl) 89 70-99 [place] 786342-10-14 08:42:00 Test Item Value Reference Range Interpretation Comments BUN (test code = BUN) 8 7-22 [place] 786342-10-14 08:42:00 Test Item Value Reference Range Interpretation Comments Creatinine Lvl (test code = Creatinine 0.59 0.50-1.40 Lvl) [place] 786342-10-14 08:42:00 Test Item Value Reference Range Interpretation Comments Sodium Lvl (test code = Sodium Lvl) 142 135-145 [facility] [id number] 08:42:00 Test Item Value Reference Range Interpretation Comments Potassium Lvl (test code = Potassium 3.6 3.5-5.1 Lvl) [place] 786342-10-14 08:42:00 Test Item Value Reference Range Interpretation Comments Chloride Lvl (test code = Chloride Lvl) 103 95-109 [facility] [id number] 08:42:00 Test Item Value Reference Range Interpretation Comments CO2 (test code = CO2) 30 24-32 [place] 786342-10-14 08:42:00 Test Item Value Reference Range Interpretation Comments Calcium Lvl (test code = Calcium Lvl) 9.8 8.5-10.5 [place] 786342-10-14 08:42:00 Test Item Value Reference Range Interpretation Comments Total Protein (test code = Total 7.0 6.4-8.4 Protein) [place] 786342-10-14 08:42:00 Test Item Value Reference Range Interpretation Comments Albumin Lvl (test code = Albumin Lvl) 2.8 3.5-5.0 [facility] [employer] [id number] 08:42:00 Test Item Value Reference Range Interpretation Comments ALT (test code = ALT) 20 See_Comment [Auto mated message] The system which ge nerated this result transmit fabiano reference range : <=65. The reference range was not used to interpr et this result as aleks l/abnormal. [facility] [employer] [id number] 08:42:00 Test Item Value Reference Range Interpretation Comments AST (test code = AST) 11 See_Comment [Auto mated message] The system which ge nerated this result transmit fabiano reference range : <=37. The reference range was not used to interpr et this result as aleks l/abnormal. [facility] [employer] [id number] 08:42:00 Test Item Value Reference Range Interpretation Comments Alk Phos (test code = Alk Phos) 108 39-136 [facility] [employer] [id number] 08:42:00 Test Item Value Reference Range Interpretation Comments Bili Total (test code = Bili Total) 0.4 0.2-1.3 [facility] [employer] [id number] 08:42:00 Test Item Value Reference Range Interpretation Comments AGAP (test code = AGAP) 12.6 10.0-20.0 [facility] [employer] [id number] 08:42:00 Test Item Value Reference Range Interpretation Comments B/C Ratio (test code = B/C Ratio) 14 1 6-25 [facility] [employer] [id number] 08:42:00 Test Item Value Reference Range Interpretation Comments Globulin (test code = Globulin) 4.2 2.7-4.2 [facility] [employer] [id number] 08:42:00 Test Item Value Reference Range Interpretation Comments A/G Ratio (test code = A/G Ratio) 0.7 1 0.7-1.6 [facility] [employer] [id number] 08:42:00 Test Item Value Reference Range Interpretation Comments eGFR (test code = eGFR) 108 [facility] [employer] [id number] 08:42:00 Test Item Value Reference Range Interpretation Comments Phosphorus (test code = Phosphorus) 5.4 2.5-4.5 [facility] JhyardsBRCTUXRZJF7231-25-05 08:42:00 Test Item Value Reference Range Interpretation Comments WBC (test code = WBC) 12.5 3.7-10.4 [facility] CenterSngjxyfXTXHJJRTTN7954-34-73 08:42:00 Test Item Value Reference Range Interpretation Comments RBC (test code = RBC) 3.94 4.20-5.40 [facility] CenterFvnysvhYAOZENJQZD2733-91-54 08:42:00 Test Item Value Reference Range Interpretation Comments Hgb (test code = Hgb) 10.6 12.0-16.0 [place] 439852-10-14 08:42:00 Test Item Value Reference Range Interpretation Comments Hct (test code = Hct) 31.6 36.0-48.0 [facility] CenterTybtitnBBZQXJWVAM7277-82-19 08:42:00 Test Item Value Reference Range Interpretation Comments MCV (test code = MCV) 80.2 80.0-98.0 [facility] CenterMxrmyqvKRBBXKTMGJ4108-97-06 08:42:00 Test Item Value Reference Range Interpretation Comments MCH (test code = MCH) 26.9 pg 27.0-31.0 [place] 439852-10-14 08:42:00 Test Item Value Reference Range Interpretation Comments MCHC (test code = MCHC) 33.6 32.0-36.0 [facility] CenterHxdvhtlIOSPMAZBRX2971-94-33 08:42:00 Test Item Value Reference Range Interpretation Comments RDW (test code = RDW) 16.4 11.5-14.5 [place] 439852-10-14 08:42:00 Test Item Value Reference Range Interpretation Comments Platelet (test code = Platelet) 339 133-450 [facility] CenterCfqzglaKIZLMPWUZA6420-00-80 08:42:00 Test Item Value Reference Range Interpretation Comments MPV (test code = MPV) 8.0 7.4-10.4 [place] 439852-10-14 08:42:00 Test Item Value Reference Range Interpretation Comments Segs (test code = Segs) 77.8 45.0-75.0 [place] 439852-10-14 08:42:00 Test Item Value Reference Range Interpretation Comments Lymphocytes (test code = Lymphocytes) 13.5 20.0-40.0 [place] 439852-10-14 08:42:00 Test Item Value Reference Range Interpretation Comments Monocytes (test code = Monocytes) 6.5 2.0-12.0 [place] 439852-10-14 08:42:00 Test Item Value Reference Range Interpretation Comments Eosinophils (test code = 1.6 See_Comment [A utomated message] The Eosinophils) system which ge nerated this result tra nsmitted reference range : <=4.0. The reference r quynh was not used to int erpret this result as normal/abnormal . [facility] CenterRmnbbdeMOATDNMUBR4373-00-45 08:42:00 Test Item Value Reference Range Interpretation Comments Basophils (test code = 0.6 See_Comment [Aut omated message] The Basophils) system which ge nerated this result tra nsmitted reference range : <=1.0. The reference r quynh was not used to int erpret this result as normal/abnormal . [facility] CenterKosgbrmBNZKERMSCS5360-94-81 08:42:00 Test Item Value Reference Range Interpretation Comments Neutrophils # (test code = Neutrophils 9.8 1.5-8.1 #) [place] 439852-10-14 08:42:00 Test Item Value Reference Range Interpretation Comments Lymphocytes # (test code = Lymphocytes 1.7 1.0-5.5 #) [place] [address]-10-14 08:42:00 Test Item Value Reference Range Interpretation Comments Monocytes # (test code 0.8 See_Comment [Aut omated message] The = Monocytes #) system which generated this result tra nsmitted reference range : <=0.8. The reference r quynh was not used to int erpret this result as normal/abnormal . [facility] CenterBqfkwuaNHFCCARSSS2760-59-99 08:42:00 Test Item Value Reference Range Interpretation Comments Eosinophils # (test code 0.2 See_Comment [A utomated message] The = Eosinophils #) system whic h generated this result tra nsmitted reference range : <=0.5. The reference r quynh was not used to int erpret this result as normal/abnormal . [place] 439852-10-14 08:42:00 Test Item Value Reference Range Interpretation Comments Basophils # (test code 0.1 See_Comment [Aut omated message] The = Basophils #) system which generated this result tra nsmitted reference range : <=0.2. The reference r quynh was not used to int erpret this result as normal/abnormal . [place] [address]-10-14 08:42:00 Test Item Value Reference Range Interpretation Comments Magnesium Lvl (test code = Magnesium 2.2 1.8-2.4 Lvl) [place] [address]-10-14 08:42:00 Test Item Value Reference Range Interpretation Comments Glucose Lvl (test code = Glucose Lvl) 89 70-99 [place] [address]-10-14 08:42:00 Test Item Value Reference Range Interpretation Comments BUN (test code = BUN) 8 7-22 [place] [address]-10-14 08:42:00 Test Item Value Reference Range Interpretation Comments Creatinine Lvl (test code = Creatinine 0.59 0.50-1.40 Lvl) [place] [address]-10-14 08:42:00 Test Item Value Reference Range Interpretation Comments Sodium Lvl (test code = Sodium Lvl) 142 135-145 [place] 786342-10-14 08:42:00 Test Item Value Reference Range Interpretation Comments Potassium Lvl (test code = Potassium 3.6 3.5-5.1 Lvl) [place] 786342-10-14 08:42:00 Test Item Value Reference Range Interpretation Comments Chloride Lvl (test code = Chloride Lvl) 103 95-109 [place] 786342-10-14 08:42:00 Test Item Value Reference Range Interpretation Comments CO2 (test code = CO2) 30 24-32 [place] [address]-10-14 08:42:00 Test Item Value Reference Range Interpretation Comments Calcium Lvl (test code = Calcium Lvl) 9.8 8.5-10.5 [place] [address]-10-14 08:42:00 Test Item Value Reference Range Interpretation Comments Total Protein (test code = Total 7.0 6.4-8.4 Protein) [place] [address]-10-14 08:42:00 Test Item Value Reference Range Interpretation Comments Albumin Lvl (test code = Albumin Lvl) 2.8 3.5-5.0 [place] [address]-10-14 08:42:00 Test Item Value Reference Range Interpretation Comments ALT (test code = ALT) 20 See_Comment [Auto mated message] The system which ge nerated this result transmit fabiano reference range : <=65. The reference range was not used to interpr et this result as aleks l/abnormal. [place] 786342-10-14 08:42:00 Test Item Value Reference Range Interpretation Comments AST (test code = AST) 11 See_Comment [Auto mated message] The system which ge nerated this result transmit fabiano reference range : <=37. The reference range was not used to interpr et this result as aleks l/abnormal. [place] 786342-10-14 08:42:00 Test Item Value Reference Range Interpretation Comments Alk Phos (test code = Alk Phos) 108 39-136 [place] 786342-10-14 08:42:00 Test Item Value Reference Range Interpretation Comments Bili Total (test code = Bili Total) 0.4 0.2-1.3 [place] 786342-10-14 08:42:00 Test Item Value Reference Range Interpretation Comments AGAP (test code = AGAP) 12.6 10.0-20.0 [place] 786342-10-14 08:42:00 Test Item Value Reference Range Interpretation Comments B/C Ratio (test code = B/C Ratio) 14 1 6-25 [place] [address]-10-14 08:42:00 Test Item Value Reference Range Interpretation Comments Globulin (test code = Globulin) 4.2 2.7-4.2 [facility]2022-10-14 08:42:00 Test Item Value Reference Range Interpretation Comments A/G Ratio (test code = A/G Ratio) 0.7 1 0.7-1.6 [place] 786342-10-14 08:42:00 Test Item Value Reference Range Interpretation Comments eGFR (test code = eGFR) 108 [place] 786342-10-14 08:42:00 Test Item Value Reference Range Interpretation Comments Phosphorus (test code = Phosphorus) 5.4 2.5-4.5 [place] 439852-10-14 08:42:00 Test Item Value Reference Range Interpretation Comments WBC (test code = WBC) 12.5 3.7-10.4 [place] 439852-10-14 08:42:00 Test Item Value Reference Range Interpretation Comments RBC (test code = RBC) 3.94 4.20-5.40 [address]10-14 08:42:00 Test Item Value Reference Range Interpretation Comments Hgb (test code = Hgb) 10.6 12.0-16.0 [place] [address]-10-14 08:42:00 Test Item Value Reference Range Interpretation Comments Hct (test code = Hct) 31.6 36.0-48.0 [place] [address]-10-14 08:42:00 Test Item Value Reference Range Interpretation Comments MCV (test code = MCV) 80.2 80.0-98.0 [place] [address]-10-14 08:42:00 Test Item Value Reference Range Interpretation Comments MCH (test code = MCH) 26.9 pg 27.0-31.0 [place] [address]-10-14 08:42:00 Test Item Value Reference Range Interpretation Comments MCHC (test code = MCHC) 33.6 32.0-36.0 [place] 439852-10-14 08:42:00 Test Item Value Reference Range Interpretation Comments RDW (test code = RDW) 16.4 11.5-14.5 [place] 439852-10-14 08:42:00 Test Item Value Reference Range Interpretation Comments Platelet (test code = Platelet) 339 133-450 [facility] CenterElmxpnlCCBZLXCNQO8893-17-33 08:42:00 Test Item Value Reference Range Interpretation Comments MPV (test code = MPV) 8.0 7.4-10.4 [place] [address]-10-14 08:42:00 Test Item Value Reference Range Interpretation Comments Segs (test code = Segs) 77.8 45.0-75.0 [place] 439852-10-14 08:42:00 Test Item Value Reference Range Interpretation Comments Lymphocytes (test code = Lymphocytes) 13.5 20.0-40.0 [place] [address]-10-14 08:42:00 Test Item Value Reference Range Interpretation Comments Monocytes (test code = Monocytes) 6.5 2.0-12.0 [place] [address]-10-14 08:42:00 Test Item Value Reference Range Interpretation Comments Eosinophils (test code = 1.6 See_Comment [A utomated message] The Eosinophils) system which ge nerated this result tra nsmitted reference range : <=4.0. The reference r quynh was not used to int erpret this result as normal/abnormal . [address]10-14 08:42:00 Test Item Value Reference Range Interpretation Comments Basophils (test code = 0.6 See_Comment [Aut omated message] The Basophils) system which ge nerated this result tra nsmitted reference range : <=1.0. The reference r quynh was not used to int erpret this result as normal/abnormal . [place] [address]-10-14 08:42:00 Test Item Value Reference Range Interpretation Comments Neutrophils # (test code = Neutrophils 9.8 1.5-8.1 #) [address]10-14 08:42:00 Test Item Value Reference Range Interpretation Comments Lymphocytes # (test code = Lymphocytes 1.7 1.0-5.5 #) [address]10-14 08:42:00 Test Item Value Reference Range Interpretation Comments Monocytes # (test code 0.8 See_Comment [Aut omated message] The = Monocytes #) system which generated this result tra nsmitted reference range : <=0.8. The reference r quynh was not used to int erpret this result as normal/abnormal . [place] [address]-10-14 08:42:00 Test Item Value Reference Range Interpretation Comments Eosinophils # (test code 0.2 See_Comment [A utomated message] The = Eosinophils #) system whic h generated this result tra nsmitted reference range : <=0.5. The reference r quynh was not used to int erpret this result as normal/abnormal . [place] [address]-10-14 08:42:00 Test Item Value Reference Range Interpretation Comments Basophils # (test code 0.1 See_Comment [Aut omated message] The = Basophils #) system which generated this result tra nsmitted reference range : <=0.2. The reference r quynh was not used to int erpret this result as normal/abnormal . [place] [address]-10-14 08:42:00 Test Item Value Reference Range Interpretation Comments Magnesium Lvl (test code = Magnesium 2.2 1.8-2.4 Lvl) [facility] [id number] 08:42:00 Test Item Value Reference Range Interpretation Comments Glucose Lvl (test code = Glucose Lvl) 89 70-99 [place] 786342-10-14 08:42:00 Test Item Value Reference Range Interpretation Comments BUN (test code = BUN) 8 7-22 [place] 786342-10-14 08:42:00 Test Item Value Reference Range Interpretation Comments Creatinine Lvl (test code = Creatinine 0.59 0.50-1.40 Lvl) [place] 786342-10-14 08:42:00 Test Item Value Reference Range Interpretation Comments Sodium Lvl (test code = Sodium Lvl) 142 135-145 [place] 786342-10-14 08:42:00 Test Item Value Reference Range Interpretation Comments Potassium Lvl (test code = Potassium 3.6 3.5-5.1 Lvl) [place] 786342-10-14 08:42:00 Test Item Value Reference Range Interpretation Comments Chloride Lvl (test code = Chloride Lvl) 103 95-109 [place] 786342-10-14 08:42:00 Test Item Value Reference Range Interpretation Comments CO2 (test code = CO2) 30 24-32 [place] [address]-10-14 08:42:00 Test Item Value Reference Range Interpretation Comments Calcium Lvl (test code = Calcium Lvl) 9.8 8.5-10.5 [place] 786342-10-14 08:42:00 Test Item Value Reference Range Interpretation Comments Total Protein (test code = Total 7.0 6.4-8.4 Protein) [place] 786342-10-14 08:42:00 Test Item Value Reference Range Interpretation Comments Albumin Lvl (test code = Albumin Lvl) 2.8 3.5-5.0 [place] [address]-10-14 08:42:00 Test Item Value Reference Range Interpretation Comments ALT (test code = ALT) 20 See_Comment [Auto mated message] The system which ge nerated this result transmit fabiano reference range : <=65. The reference range was not used to interpr et this result as aleks l/abnormal. [place] 786342-10-14 08:42:00 Test Item Value Reference Range Interpretation Comments AST (test code = AST) 11 See_Comment [Auto mated message] The system which ge nerated this result transmit fabiano reference range : <=37. The reference range was not used to interpr et this result as aleks l/abnormal. [place] 786342-10-14 08:42:00 Test Item Value Reference Range Interpretation Comments Alk Phos (test code = Alk Phos) 108 39-136 [place] [address]-10-14 08:42:00 Test Item Value Reference Range Interpretation Comments Bili Total (test code = Bili Total) 0.4 0.2-1.3 [place] [address]-10-14 08:42:00 Test Item Value Reference Range Interpretation Comments AGAP (test code = AGAP) 12.6 10.0-20.0 [place] [address]-10-14 08:42:00 Test Item Value Reference Range Interpretation Comments B/C Ratio (test code = B/C Ratio) 14 1 6-25 [address]10-14 08:42:00 Test Item Value Reference Range Interpretation Comments Globulin (test code = Globulin) 4.2 2.7-4.2 [place] 786342-10-14 08:42:00 Test Item Value Reference Range Interpretation Comments A/G Ratio (test code = A/G Ratio) 0.7 1 0.7-1.6 [place] [address]-10-14 08:42:00 Test Item Value Reference Range Interpretation Comments eGFR (test code = eGFR) 108 [place] 786342-10-14 08:42:00 Test Item Value Reference Range Interpretation Comments Phosphorus (test code = Phosphorus) 5.4 2.5-4.5 [place] [address]-10-14 08:42:00 Test Item Value Reference Range Interpretation Comments WBC (test code = WBC) 12.5 3.7-10.4 [place] [address]-10-14 08:42:00 Test Item Value Reference Range Interpretation Comments RBC (test code = RBC) 3.94 4.20-5.40 [place] [address]-10-14 08:42:00 Test Item Value Reference Range Interpretation Comments Hgb (test code = Hgb) 10.6 12.0-16.0 [place] [address]-10-14 08:42:00 Test Item Value Reference Range Interpretation Comments Hct (test code = Hct) 31.6 36.0-48.0 [place] 439852-10-14 08:42:00 Test Item Value Reference Range Interpretation Comments MCV (test code = MCV) 80.2 80.0-98.0 [facility] CenterApwaapbCPWZMCLOSG3747-39-04 08:42:00 Test Item Value Reference Range Interpretation Comments MCH (test code = MCH) 26.9 pg 27.0-31.0 [facility] CenterMejuitbEZIOFHDDZT7807-33-49 08:42:00 Test Item Value Reference Range Interpretation Comments MCHC (test code = MCHC) 33.6 32.0-36.0 [place] 439852-10-14 08:42:00 Test Item Value Reference Range Interpretation Comments RDW (test code = RDW) 16.4 11.5-14.5 [place] 439852-10-14 08:42:00 Test Item Value Reference Range Interpretation Comments Platelet (test code = Platelet) 339 133-450 [facility] CenterReqxeqqDUHBICQOEE3273-55-44 08:42:00 Test Item Value Reference Range Interpretation Comments MPV (test code = MPV) 8.0 7.4-10.4 [place] [address]-10-14 08:42:00 Test Item Value Reference Range Interpretation Comments Segs (test code = Segs) 77.8 45.0-75.0 [facility] CenterGplahtgOIEVWWHJXV6069-24-53 08:42:00 Test Item Value Reference Range Interpretation Comments Lymphocytes (test code = Lymphocytes) 13.5 20.0-40.0 [place] 439852-10-14 08:42:00 Test Item Value Reference Range Interpretation Comments Monocytes (test code = Monocytes) 6.5 2.0-12.0 [place] [address]-10-14 08:42:00 Test Item Value Reference Range Interpretation Comments Eosinophils (test code = 1.6 See_Comment [A utomated message] The Eosinophils) system which ge nerated this result tra nsmitted reference range : <=4.0. The reference r quynh was not used to int erpret this result as normal/abnormal . [place] [address]-10-14 08:42:00 Test Item Value Reference Range Interpretation Comments Basophils (test code = 0.6 See_Comment [Aut omated message] The Basophils) system which ge nerated this result tra nsmitted reference range : <=1.0. The reference r quynh was not used to int erpret this result as normal/abnormal . [place] [address]-10-14 08:42:00 Test Item Value Reference Range Interpretation Comments Neutrophils # (test code = Neutrophils 9.8 1.5-8.1 #) [place] [address]-10-14 08:42:00 Test Item Value Reference Range Interpretation Comments Lymphocytes # (test code = Lymphocytes 1.7 1.0-5.5 #) [address]10-14 08:42:00 Test Item Value Reference Range Interpretation Comments Monocytes # (test code 0.8 See_Comment [Aut omated message] The = Monocytes #) system which generated this result tra nsmitted reference range : <=0.8. The reference r quynh was not used to int erpret this result as normal/abnormal . [place] [address]-10-14 08:42:00 Test Item Value Reference Range Interpretation Comments Eosinophils # (test code 0.2 See_Comment [A utomated message] The = Eosinophils #) system whic h generated this result tra nsmitted reference range : <=0.5. The reference r quynh was not used to int erpret this result as normal/abnormal . [place] [address]-10-14 08:42:00 Test Item Value Reference Range Interpretation Comments Basophils # (test code 0.1 See_Comment [Aut omated message] The = Basophils #) system which generated this result tra nsmitted reference range : <=0.2. The reference r quynh was not used to int erpret this result as normal/abnormal . [place] 786342-10-14 08:42:00 Test Item Value Reference Range Interpretation Comments Magnesium Lvl (test code = Magnesium 2.2 1.8-2.4 Lvl) [place] [address]-10-14 08:42:00 Test Item Value Reference Range Interpretation Comments Glucose Lvl (test code = Glucose Lvl) 89 70-99 [place] [address]-10-14 08:42:00 Test Item Value Reference Range Interpretation Comments BUN (test code = BUN) 8 7-22 [place] [address]-10-14 08:42:00 Test Item Value Reference Range Interpretation Comments Creatinine Lvl (test code = Creatinine 0.59 0.50-1.40 Lvl) [place] [address]-10-14 08:42:00 Test Item Value Reference Range Interpretation Comments Sodium Lvl (test code = Sodium Lvl) 142 135-145 [place] [address]-10-14 08:42:00 Test Item Value Reference Range Interpretation Comments Potassium Lvl (test code = Potassium 3.6 3.5-5.1 Lvl) [place] [address]-10-14 08:42:00 Test Item Value Reference Range Interpretation Comments Chloride Lvl (test code = Chloride Lvl) 103 95-109 [facility]NetevenMARK [facility] [id number] 08:42:00 Test Item Value Reference Range Interpretation Comments CO2 (test code = CO2) 30 24-32 [place] [address]-10-14 08:42:00 Test Item Value Reference Range Interpretation Comments Calcium Lvl (test code = Calcium Lvl) 9.8 8.5-10.5 [place] [address]-10-14 08:42:00 Test Item Value Reference Range Interpretation Comments Total Protein (test code = Total 7.0 6.4-8.4 Protein) [place] [address]-10-14 08:42:00 Test Item Value Reference Range Interpretation Comments Albumin Lvl (test code = Albumin Lvl) 2.8 3.5-5.0 [place] 786342-10-14 08:42:00 Test Item Value Reference Range Interpretation Comments ALT (test code = ALT) 20 See_Comment [Auto mated message] The system which ge nerated this result transmit fabiano reference range : <=65. The reference range was not used to interpr et this result as aleks l/abnormal. [facility] [id number] 08:42:00 Test Item Value Reference Range Interpretation Comments AST (test code = AST) 11 See_Comment [Auto mated message] The system which ge nerated this result transmit fabiano reference range : <=37. The reference range was not used to interpr et this result as aleks l/abnormal. [facility] [id number] 08:42:00 Test Item Value Reference Range Interpretation Comments Alk Phos (test code = Alk Phos) 108 39-136 [place] 786342-10-14 08:42:00 Test Item Value Reference Range Interpretation Comments Bili Total (test code = Bili Total) 0.4 0.2-1.3 [place] [address]-10-14 08:42:00 Test Item Value Reference Range Interpretation Comments AGAP (test code = AGAP) 12.6 10.0-20.0 [place] 786342-10-14 08:42:00 Test Item Value Reference Range Interpretation Comments B/C Ratio (test code = B/C Ratio) 14 1 6-25 [place] [address]-10-14 08:42:00 Test Item Value Reference Range Interpretation Comments Globulin (test code = Globulin) 4.2 2.7-4.2 [place] 786342-10-14 08:42:00 Test Item Value Reference Range Interpretation Comments A/G Ratio (test code = A/G Ratio) 0.7 1 0.7-1.6 [place] [address]-10-14 08:42:00 Test Item Value Reference Range Interpretation Comments eGFR (test code = eGFR) 108 [place] 786342-10-14 08:42:00 Test Item Value Reference Range Interpretation Comments Phosphorus (test code = Phosphorus) 5.4 2.5-4.5 [place] 439852-10-14 08:42:00 Test Item Value Reference Range Interpretation Comments WBC (test code = WBC) 12.5 3.7-10.4 [place] 439852-10-14 08:42:00 Test Item Value Reference Range Interpretation Comments RBC (test code = RBC) 3.94 4.20-5.40 [place] [address]-10-14 08:42:00 Test Item Value Reference Range Interpretation Comments Hgb (test code = Hgb) 10.6 12.0-16.0 [place] [address]-10-14 08:42:00 Test Item Value Reference Range Interpretation Comments Hct (test code = Hct) 31.6 36.0-48.0 [place] [address]-10-14 08:42:00 Test Item Value Reference Range Interpretation Comments MCV (test code = MCV) 80.2 80.0-98.0 [place] [address]-10-14 08:42:00 Test Item Value Reference Range Interpretation Comments MCH (test code = MCH) 26.9 pg 27.0-31.0 [facility] CenterEzvktziINXRLWVZZO5945-51-98 08:42:00 Test Item Value Reference Range Interpretation Comments MCHC (test code = MCHC) 33.6 32.0-36.0 [facility] CenterVngmxriKTAXPYLWPN0641-11-99 08:42:00 Test Item Value Reference Range Interpretation Comments RDW (test code = RDW) 16.4 11.5-14.5 [facility] CenterRjwtvnwNFLLPMZRVA1624-97-36 08:42:00 Test Item Value Reference Range Interpretation Comments Platelet (test code = Platelet) 339 133-450 [facility] CenterOhtchvkXKRPVKNUKD1612-78-51 08:42:00 Test Item Value Reference Range Interpretation Comments MPV (test code = MPV) 8.0 7.4-10.4 [facility] CenterFekldleDLWKPIYDMF2283-31-07 08:42:00 Test Item Value Reference Range Interpretation Comments Segs (test code = Segs) 77.8 45.0-75.0 [facility] CenterMplkvjlVUWYPWIHDV3111-45-17 08:42:00 Test Item Value Reference Range Interpretation Comments Lymphocytes (test code = Lymphocytes) 13.5 20.0-40.0 [facility] CenterXdxdsswVRYONUEJWW0897-95-48 08:42:00 Test Item Value Reference Range Interpretation Comments Monocytes (test code = Monocytes) 6.5 2.0-12.0 [facility] CenterAnjddhbLMUPZGQKVT4605-78-47 08:42:00 Test Item Value Reference Range Interpretation Comments Eosinophils (test code = 1.6 See_Comment [A utomated message] The Eosinophils) system which ge nerated this result tra nsmitted reference range : <=4.0. The reference r quynh was not used to int erpret this result as normal/abnormal . [facility] CenterDqnfdemCBPYQGDELD2808-91-90 08:42:00 Test Item Value Reference Range Interpretation Comments Basophils (test code = 0.6 See_Comment [Aut omated message] The Basophils) system which ge nerated this result tra nsmitted reference range : <=1.0. The reference r quynh was not used to int erpret this result as normal/abnormal . [facility] CenterYcfcrhyWGPLZJTFPK9700-46-08 08:42:00 Test Item Value Reference Range Interpretation Comments Neutrophils # (test code = Neutrophils 9.8 1.5-8.1 #) [address]10-14 08:42:00 Test Item Value Reference Range Interpretation Comments Lymphocytes # (test code = Lymphocytes 1.7 1.0-5.5 #) [place] [address]-10-14 08:42:00 Test Item Value Reference Range Interpretation Comments Monocytes # (test code 0.8 See_Comment [Aut omated message] The = Monocytes #) system which generated this result tra nsmitted reference range : <=0.8. The reference r quynh was not used to int erpret this result as normal/abnormal . [place] [address]-10-14 08:42:00 Test Item Value Reference Range Interpretation Comments Eosinophils # (test code 0.2 See_Comment [A utomated message] The = Eosinophils #) system whic h generated this result tra nsmitted reference range : <=0.5. The reference r quynh was not used to int erpret this result as normal/abnormal . [place] [address]-10-14 08:42:00 Test Item Value Reference Range Interpretation Comments Basophils # (test code 0.1 See_Comment [Aut omated message] The = Basophils #) system which generated this result tra nsmitted reference range : <=0.2. The reference r quynh was not used to int erpret this result as normal/abnormal . [place] 786342-10-14 08:42:00 Test Item Value Reference Range Interpretation Comments Magnesium Lvl (test code = Magnesium 2.2 1.8-2.4 Lvl) [place] [address]-10-14 08:42:00 Test Item Value Reference Range Interpretation Comments Glucose Lvl (test code = Glucose Lvl) 89 70-99 [place] [address]-10-14 08:42:00 Test Item Value Reference Range Interpretation Comments BUN (test code = BUN) 8 7-22 [place] [address]-10-14 08:42:00 Test Item Value Reference Range Interpretation Comments Creatinine Lvl (test code = Creatinine 0.59 0.50-1.40 Lvl) [place] [address]-10-14 08:42:00 Test Item Value Reference Range Interpretation Comments Sodium Lvl (test code = Sodium Lvl) 142 135-145 [place] [address]-10-14 08:42:00 Test Item Value Reference Range Interpretation Comments Potassium Lvl (test code = Potassium 3.6 3.5-5.1 Lvl) [address]10-14 08:42:00 Test Item Value Reference Range Interpretation Comments Chloride Lvl (test code = Chloride Lvl) 103 95-109 [facility]NetevenJON [facility] [id number] 08:42:00 Test Item Value Reference Range Interpretation Comments CO2 (test code = CO2) 30 24-32 [facility] [id number] 08:42:00 Test Item Value Reference Range Interpretation Comments Calcium Lvl (test code = Calcium Lvl) 9.8 8.5-10.5 [facility] HospitalNeteven[address]10-14 08:42:00 Test Item Value Reference Range Interpretation Comments Total Protein (test code = Total 7.0 6.4-8.4 Protein) [address]10-14 08:42:00 Test Item Value Reference Range Interpretation Comments Albumin Lvl (test code = Albumin Lvl) 2.8 3.5-5.0 [facility] HospitalNeteven[address]10-14 08:42:00 Test Item Value Reference Range Interpretation Comments ALT (test code = ALT) 20 See_Comment [Auto mated message] The system which ge nerated this result transmit fabiano reference range : <=65. The reference range was not used to interpr et this result as aleks l/abnormal. [facility] [id number] 08:42:00 Test Item Value Reference Range Interpretation Comments AST (test code = AST) 11 See_Comment [Auto mated message] The system which ge nerated this result transmit fabiano reference range : <=37. The reference range was not used to interpr et this result as aleks l/abnormal. [facility] [id number] 08:42:00 Test Item Value Reference Range Interpretation Comments Alk Phos (test code = Alk Phos) 108 39-136 [facility] [id number] 08:42:00 Test Item Value Reference Range Interpretation Comments Bili Total (test code = Bili Total) 0.4 0.2-1.3 [facility] [id number] 08:42:00 Test Item Value Reference Range Interpretation Comments AGAP (test code = AGAP) 12.6 10.0-20.0 [place] [address]-10-14 08:42:00 Test Item Value Reference Range Interpretation Comments B/C Ratio (test code = B/C Ratio) 14 1 6-25 [place] [address]-10-14 08:42:00 Test Item Value Reference Range Interpretation Comments Globulin (test code = Globulin) 4.2 2.7-4.2 [place] 786342-10-14 08:42:00 Test Item Value Reference Range Interpretation Comments A/G Ratio (test code = A/G Ratio) 0.7 1 0.7-1.6 [place] [address]-10-14 08:42:00 Test Item Value Reference Range Interpretation Comments eGFR (test code = eGFR) 108 [place] 786342-10-14 08:42:00 Test Item Value Reference Range Interpretation Comments Phosphorus (test code = Phosphorus) 5.4 2.5-4.5 [place] 439852-10-14 08:42:00 Test Item Value Reference Range Interpretation Comments WBC (test code = WBC) 12.5 3.7-10.4 [place] [address]-10-14 08:42:00 Test Item Value Reference Range Interpretation Comments RBC (test code = RBC) 3.94 4.20-5.40 [place] [address]-10-14 08:42:00 Test Item Value Reference Range Interpretation Comments Hgb (test code = Hgb) 10.6 12.0-16.0 [place] [address]-10-14 08:42:00 Test Item Value Reference Range Interpretation Comments Hct (test code = Hct) 31.6 36.0-48.0 [place] [address]-10-14 08:42:00 Test Item Value Reference Range Interpretation Comments MCV (test code = MCV) 80.2 80.0-98.0 [place] [address]-10-14 08:42:00 Test Item Value Reference Range Interpretation Comments MCH (test code = MCH) 26.9 pg 27.0-31.0 [place] [address]-10-14 08:42:00 Test Item Value Reference Range Interpretation Comments MCHC (test code = MCHC) 33.6 32.0-36.0 [place] [address]-10-14 08:42:00 Test Item Value Reference Range Interpretation Comments RDW (test code = RDW) 16.4 11.5-14.5 [place] 439852-10-14 08:42:00 Test Item Value Reference Range Interpretation Comments Platelet (test code = Platelet) 339 133-450 [place] 439852-10-14 08:42:00 Test Item Value Reference Range Interpretation Comments MPV (test code = MPV) 8.0 7.4-10.4 [place] [address]-10-14 08:42:00 Test Item Value Reference Range Interpretation Comments Segs (test code = Segs) 77.8 45.0-75.0 [place] 439852-10-14 08:42:00 Test Item Value Reference Range Interpretation Comments Lymphocytes (test code = Lymphocytes) 13.5 20.0-40.0 [place] 439852-10-14 08:42:00 Test Item Value Reference Range Interpretation Comments Monocytes (test code = Monocytes) 6.5 2.0-12.0 [place] 439852-10-14 08:42:00 Test Item Value Reference Range Interpretation Comments Eosinophils (test code = 1.6 See_Comment [A utomated message] The Eosinophils) system which ge nerated this result tra nsmitted reference range : <=4.0. The reference r quynh was not used to int erpret this result as normal/abnormal . [facility]mkhrmaYLAQLTYIBP7773-27-[facility] 08:42:00 Test Item Value Reference Range Interpretation Comments Basophils (test code = 0.6 See_Comment [Aut omated message] The Basophils) system which ge nerated this result tra nsmitted reference range : <=1.0. The reference r quynh was not used to int erpret this result as normal/abnormal . [place] 439852-10-14 08:42:00 Test Item Value Reference Range Interpretation Comments Neutrophils # (test code = Neutrophils 9.8 1.5-8.1 #) [facility] CenterDhgnxtmFDJKAQEVKR7893-03-26 08:42:00 Test Item Value Reference Range Interpretation Comments Lymphocytes # (test code = Lymphocytes 1.7 1.0-5.5 #) [place] 439852-10-14 08:42:00 Test Item Value Reference Range Interpretation Comments Monocytes # (test code 0.8 See_Comment [Aut omated message] The = Monocytes #) system which generated this result tra nsmitted reference range : <=0.8. The reference r quynh was not used to int erpret this result as normal/abnormal . [place] [address]-10-14 08:42:00 Test Item Value Reference Range Interpretation Comments Eosinophils # (test code 0.2 See_Comment [A utomated message] The = Eosinophils #) system whic h generated this result tra nsmitted reference range : <=0.5. The reference r quynh was not used to int erpret this result as normal/abnormal . [place] [address]-10-14 08:42:00 Test Item Value Reference Range Interpretation Comments Basophils # (test code 0.1 See_Comment [Aut omated message] The = Basophils #) system which generated this result tra nsmitted reference range : <=0.2. The reference r quynh was not used to int erpret this result as normal/abnormal . [place] 786342-10-14 08:42:00 Test Item Value Reference Range Interpretation Comments Magnesium Lvl (test code = Magnesium 2.2 1.8-2.4 Lvl) [place] [address]-10-14 08:42:00 Test Item Value Reference Range Interpretation Comments Glucose Lvl (test code = Glucose Lvl) 89 70-99 [place] [address]-10-14 08:42:00 Test Item Value Reference Range Interpretation Comments BUN (test code = BUN) 8 7-22 [place] [address]-10-14 08:42:00 Test Item Value Reference Range Interpretation Comments Creatinine Lvl (test code = Creatinine 0.59 0.50-1.40 Lvl) [place] [address]-10-14 08:42:00 Test Item Value Reference Range Interpretation Comments Sodium Lvl (test code = Sodium Lvl) 142 135-145 [place] 786342-10-14 08:42:00 Test Item Value Reference Range Interpretation Comments Potassium Lvl (test code = Potassium 3.6 3.5-5.1 Lvl) [place] [address]-10-14 08:42:00 Test Item Value Reference Range Interpretation Comments Chloride Lvl (test code = Chloride Lvl) 103 95-109 [place] 786342-10-14 08:42:00 Test Item Value Reference Range Interpretation Comments Magnesium Lvl (test code = Magnesium 2.2 1.8-2.4 Lvl) [place] 786342-10-14 08:42:00 Test Item Value Reference Range Interpretation Comments Glucose Lvl (test code = Glucose Lvl) 89 70-99 [place] 786342-10-14 08:42:00 Test Item Value Reference Range Interpretation Comments BUN (test code = BUN) 8 7-22 [place] 786342-10-14 08:42:00 Test Item Value Reference Range Interpretation Comments Creatinine Lvl (test code = Creatinine 0.59 0.50-1.40 Lvl) [facility]2022-10-14 08:42:00 Test Item Value Reference Range Interpretation Comments Sodium Lvl (test code = Sodium Lvl) 142 135-145 [facility]2022-10-14 08:42:00 Test Item Value Reference Range Interpretation Comments Potassium Lvl (test code = Potassium 3.6 3.5-5.1 Lvl) [facility]2022-10-14 08:42:00 Test Item Value Reference Range Interpretation Comments Chloride Lvl (test code = Chloride Lvl) 103 95-109 [facility]2022-10-14 08:42:00 Test Item Value Reference Range Interpretation Comments CO2 (test code = CO2) 30 -32 [place] 786342-10-14 08:42:00 Test Item Value Reference Range Interpretation Comments Calcium Lvl (test code = Calcium Lvl) 9.8 8.5-10.5 [place] 786342-10-14 08:42:00 Test Item Value Reference Range Interpretation Comments CO2 (test code = CO2) 30 24-32 [place] 786342-10-14 08:42:00 Test Item Value Reference Range Interpretation Comments Total Protein (test code = Total 7.0 6.4-8.4 Protein) [place] 786342-10-14 08:42:00 Test Item Value Reference Range Interpretation Comments Albumin Lvl (test code = Albumin Lvl) 2.8 3.5-5.0 [place] 786342-10-14 08:42:00 Test Item Value Reference Range Interpretation Comments ALT (test code = ALT) 20 See_Comment [Auto mated message] The system which ge nerated this result transmit fabiano reference range : <=65. The reference range was not used to interpr et this result as aleks l/abnormal. [facility] [id number] 08:42:00 Test Item Value Reference Range Interpretation Comments AST (test code = AST) 11 See_Comment [Auto mated message] The system which ge nerated this result transmit fabiano reference range : <=37. The reference range was not used to interpr et this result as aleks l/abnormal. [facility] [id number] 08:42:00 Test Item Value Reference Range Interpretation Comments Alk Phos (test code = Alk Phos) 108 39-136 [facility] [employer] [id number] 08:42:00 Test Item Value Reference Range Interpretation Comments Bili Total (test code = Bili Total) 0.4 0.2-1.3 [facility] [employer] [id number] 08:42:00 Test Item Value Reference Range Interpretation Comments AGAP (test code = AGAP) 12.6 10.0-20.0 [facility] [employer] [id number] 08:42:00 Test Item Value Reference Range Interpretation Comments B/C Ratio (test code = B/C Ratio) 14 1 6-25 [facility] [employer] [id number] 08:42:00 Test Item Value Reference Range Interpretation Comments Globulin (test code = Globulin) 4.2 2.7-4.2 [facility] [employer] [id number] 08:42:00 Test Item Value Reference Range Interpretation Comments A/G Ratio (test code = A/G Ratio) 0.7 1 0.7-1.6 [facility] [employer] [id number] 08:42:00 Test Item Value Reference Range Interpretation Comments Calcium Lvl (test code = Calcium Lvl) 9.8 8.5-10.5 [facility] [employer] [id number] 08:42:00 Test Item Value Reference Range Interpretation Comments eGFR (test code = eGFR) 108 [facility] [employer] [id number] 08:42:00 Test Item Value Reference Range Interpretation Comments Phosphorus (test code = Phosphorus) 5.4 2.5-4.5 [facility]DfhqhwpHQBOVHYYLE6381-87-48 08:42:00 Test Item Value Reference Range Interpretation Comments WBC (test code = WBC) 12.5 3.7-10.4 [facility] DallasKileznoBPANFHPFIP5434-89-72 08:42:00 Test Item Value Reference Range Interpretation Comments RBC (test code = RBC) 3.94 4.20-5.40 [facility]QPGXWOCMYN6547[facility]85-36 08:42:00 Test Item Value Reference Range Interpretation Comments Hgb (test code = Hgb) 10.6 12.0-16.0 [facility] DallasWsrofudKVFXBZCYLT6632-76-73 08:42:00 Test Item Value Reference Range Interpretation Comments Hct (test code = Hct) 31.6 36.0-48.0 [facility] DallasNejqscxSPNCCDXRJL8280-35-99 08:42:00 Test Item Value Reference Range Interpretation Comments MCV (test code = MCV) 80.2 80.0-98.0 [facility]YdypnheAUSCQPOFCA7468-64-52 08:42:00 Test Item Value Reference Range Interpretation Comments MCH (test code = MCH) 26.9 pg 27.0-31.0 [facility] DallasQgoojauWBAYYKIAFG1908-79-42 08:42:00 Test Item Value Reference Range Interpretation Comments MCHC (test code = MCHC) 33.6 32.0-36.0 [facility] DallasGqtpaljYMETHQZHXT6668-03-01 08:42:00 Test Item Value Reference Range Interpretation Comments RDW (test code = RDW) 16.4 11.5-14.5 [facility]2022-10-14 08:42:00 Test Item Value Reference Range Interpretation Comments Total Protein (test code = Total 7.0 6.4-8.4 Protein) [facility]IhtkiltLBDVMLQRPA4056-22-71 08:42:00 Test Item Value Reference Range Interpretation Comments Platelet (test code = Platelet) 339 133-450 [facility]TiihmvjJHLBLSOYCC9282-16-11 08:42:00 Test Item Value Reference Range Interpretation Comments MPV (test code = MPV) 8.0 7.4-10.4 [facility]OwwciukHUHAFTRKBC7785-16-14 08:42:00 Test Item Value Reference Range Interpretation Comments Segs (test code = Segs) 77.8 45.0-75.0 [place] [address]-10-14 08:42:00 Test Item Value Reference Range Interpretation Comments Lymphocytes (test code = Lymphocytes) 13.5 20.0-40.0 [place] 439852-10-14 08:42:00 Test Item Value Reference Range Interpretation Comments Monocytes (test code = Monocytes) 6.5 2.0-12.0 [place] 439852-10-14 08:42:00 Test Item Value Reference Range Interpretation Comments Eosinophils (test code = 1.6 See_Comment [A utomated message] The Eosinophils) system which ge nerated this result tra nsmitted reference range : <=4.0. The reference r quynh was not used to int erpret this result as normal/abnormal . [place] [address]-10-14 08:42:00 Test Item Value Reference Range Interpretation Comments Basophils (test code = 0.6 See_Comment [Aut omated message] The Basophils) system which ge nerated this result tra nsmitted reference range : <=1.0. The reference r quynh was not used to int erpret this result as normal/abnormal . [facility] CenterMnmfdbfFUEVZEBTXO2138-17-07 08:42:00 Test Item Value Reference Range Interpretation Comments Neutrophils # (test code = Neutrophils 9.8 1.5-8.1 #) [place] 439852-10-14 08:42:00 Test Item Value Reference Range Interpretation Comments Lymphocytes # (test code = Lymphocytes 1.7 1.0-5.5 #) [place] 439852-10-14 08:42:00 Test Item Value Reference Range Interpretation Comments Monocytes # (test code 0.8 See_Comment [Aut omated message] The = Monocytes #) system which generated this result tra nsmitted reference range : <=0.8. The reference r quynh was not used to int erpret this result as normal/abnormal . [facility]2022-10-14 08:42:00 Test Item Value Reference Range Interpretation Comments Albumin Lvl (test code = Albumin Lvl) 2.8 3.5-5.0 [place] 439852-10-14 08:42:00 Test Item Value Reference Range Interpretation Comments Eosinophils # (test code 0.2 See_Comment [A utomated message] The = Eosinophils #) system whic h generated this result tra nsmitted reference range : <=0.5. The reference r quynh was not used to int erpret this result as normal/abnormal . [facility] CenterJtoyyyuWGCELJMLSD1599-14-46 08:42:00 Test Item Value Reference Range Interpretation Comments Basophils # (test code 0.1 See_Comment [Aut omated message] The = Basophils #) system which generated this result tra nsmitted reference range : <=0.2. The reference r quynh was not used to int erpret this result as normal/abnormal . [place] 786342-10-14 08:42:00 Test Item Value Reference Range Interpretation Comments ALT (test code = ALT) 20 See_Comment [Auto mated message] The system which ge nerated this result transmit fabiano reference range : <=65. The reference range was not used to interpr et this result as aleks l/abnormal. [place] [address]-10-14 08:42:00 Test Item Value Reference Range Interpretation Comments AST (test code = AST) 11 See_Comment [Auto mated message] The system which ge nerated this result transmit fabiano reference range : <=37. The reference range was not used to interpr et this result as aleks l/abnormal. [place] [address]-10-14 08:42:00 Test Item Value Reference Range Interpretation Comments Alk Phos (test code = Alk Phos) 108 39-136 [place] [address]-10-14 08:42:00 Test Item Value Reference Range Interpretation Comments Bili Total (test code = Bili Total) 0.4 0.2-1.3 [place] [address]-10-14 08:42:00 Test Item Value Reference Range Interpretation Comments AGAP (test code = AGAP) 12.6 10.0-20.0 [address]10-14 08:42:00 Test Item Value Reference Range Interpretation Comments B/C Ratio (test code = B/C Ratio) 14 1 6-25 [place] [address]-10-14 08:42:00 Test Item Value Reference Range Interpretation Comments Globulin (test code = Globulin) 4.2 2.7-4.2 [place] [address]-10-14 08:42:00 Test Item Value Reference Range Interpretation Comments A/G Ratio (test code = A/G Ratio) 0.7 1 0.7-1.6 [facility]2022-10-14 08:42:00 Test Item Value Reference Range Interpretation Comments eGFR (test code = eGFR) 108 [facility]2022-10-14 08:42:00 Test Item Value Reference Range Interpretation Comments Phosphorus (test code = Phosphorus) 5.4 2.5-4.5 [place] 439852-10-14 08:42:00 Test Item Value Reference Range Interpretation Comments WBC (test code = WBC) 12.5 3.7-10.4 [place] 439852-10-14 08:42:00 Test Item Value Reference Range Interpretation Comments RBC (test code = RBC) 3.94 4.20-5.40 [place] 439852-10-14 08:42:00 Test Item Value Reference Range Interpretation Comments Hgb (test code = Hgb) 10.6 12.0-16.0 [place] 439852-10-14 08:42:00 Test Item Value Reference Range Interpretation Comments Hct (test code = Hct) 31.6 36.0-48.0 [facility] CenterTogdnbeQRCIJMPXVT5227-61-30 08:42:00 Test Item Value Reference Range Interpretation Comments MCV (test code = MCV) 80.2 80.0-98.0 [facility] CenterLofglwhMNECZIBNTV0899-23-15 08:42:00 Test Item Value Reference Range Interpretation Comments MCH (test code = MCH) 26.9 pg 27.0-31.0 [facility] CenterAalpvgjAHGEQPLXYX4258-96-74 08:42:00 Test Item Value Reference Range Interpretation Comments MCHC (test code = MCHC) 33.6 32.0-36.0 [place] 439852-10-14 08:42:00 Test Item Value Reference Range Interpretation Comments RDW (test code = RDW) 16.4 11.5-14.5 [place] 439852-10-14 08:42:00 Test Item Value Reference Range Interpretation Comments Platelet (test code = Platelet) 339 133-450 [facility] CenterTvlopcfKDOAYJXAOV4621-76-78 08:42:00 Test Item Value Reference Range Interpretation Comments MPV (test code = MPV) 8.0 7.4-10.4 [place] 439852-10-14 08:42:00 Test Item Value Reference Range Interpretation Comments Segs (test code = Segs) 77.8 45.0-75.0 [place] [address]-10-14 08:42:00 Test Item Value Reference Range Interpretation Comments Lymphocytes (test code = Lymphocytes) 13.5 20.0-40.0 [place] [address]-10-14 08:42:00 Test Item Value Reference Range Interpretation Comments Monocytes (test code = Monocytes) 6.5 2.0-12.0 [place] [address]-10-14 08:42:00 Test Item Value Reference Range Interpretation Comments Magnesium Lvl (test code = Magnesium 2.2 1.8-2.4 Lvl) [place] [address]-10-14 08:42:00 Test Item Value Reference Range Interpretation Comments Glucose Lvl (test code = Glucose Lvl) 89 70-99 [place] [address]-10-14 08:42:00 Test Item Value Reference Range Interpretation Comments BUN (test code = BUN) 8 7-22 [place] [address]-10-14 08:42:00 Test Item Value Reference Range Interpretation Comments Creatinine Lvl (test code = Creatinine 0.59 0.50-1.40 Lvl) [place] 786342-10-14 08:42:00 Test Item Value Reference Range Interpretation Comments Sodium Lvl (test code = Sodium Lvl) 142 135-145 [place] [address]-10-14 08:42:00 Test Item Value Reference Range Interpretation Comments Potassium Lvl (test code = Potassium 3.6 3.5-5.1 Lvl) [place] [address]-10-14 08:42:00 Test Item Value Reference Range Interpretation Comments Chloride Lvl (test code = Chloride Lvl) 103 95-109 [place] 786342-10-14 08:42:00 Test Item Value Reference Range Interpretation Comments CO2 (test code = CO2) 30 24-32 [place] [address]-10-14 08:42:00 Test Item Value Reference Range Interpretation Comments Eosinophils (test code = 1.6 See_Comment [A utomated message] The Eosinophils) system which ge nerated this result tra nsmitted reference range : <=4.0. The reference r quynh was not used to int erpret this result as normal/abnormal . [facility]2022-10-14 08:42:00 Test Item Value Reference Range Interpretation Comments Calcium Lvl (test code = Calcium Lvl) 9.8 8.5-10.5 [place] 786342-10-14 08:42:00 Test Item Value Reference Range Interpretation Comments Total Protein (test code = Total 7.0 6.4-8.4 Protein) [place] 786342-10-14 08:42:00 Test Item Value Reference Range Interpretation Comments Albumin Lvl (test code = Albumin Lvl) 2.8 3.5-5.0 [place] 786342-10-14 08:42:00 Test Item Value Reference Range Interpretation Comments ALT (test code = ALT) 20 See_Comment [Auto mated message] The system which ge nerated this result transmit fabiano reference range : <=65. The reference range was not used to interpr et this result as aleks l/abnormal. [facility]2022-10-14 08:42:00 Test Item Value Reference Range Interpretation Comments AST (test code = AST) 11 See_Comment [Auto mated message] The system which ge nerated this result transmit fabiano reference range : <=37. The reference range was not used to interpr et this result as aleks l/abnormal. [facility]2022-10-14 08:42:00 Test Item Value Reference Range Interpretation Comments Alk Phos (test code = Alk Phos) 108 39-136 [facility]2022-10-14 08:42:00 Test Item Value Reference Range Interpretation Comments Bili Total (test code = Bili Total) 0.4 0.2-1.3 [place] 786342-10-14 08:42:00 Test Item Value Reference Range Interpretation Comments AGAP (test code = AGAP) 12.6 10.0-20.0 [facility]Immun[facility] [id number] 08:42:00 Test Item Value Reference Range Interpretation Comments B/C Ratio (test code = B/C Ratio) 14 1 6-25 [place] 786342-10-14 08:42:00 Test Item Value Reference Range Interpretation Comments Globulin (test code = Globulin) 4.2 2.7-4.2 [place] 439852-10-14 08:42:00 Test Item Value Reference Range Interpretation Comments Basophils (test code = 0.6 See_Comment [Aut omated message] The Basophils) system which ge nerated this result tra nsmitted reference range : <=1.0. The reference r quynh was not used to int erpret this result as normal/abnormal . [facility] [id number] 08:42:00 Test Item Value Reference Range Interpretation Comments A/G Ratio (test code = A/G Ratio) 0.7 1 0.7-1.6 [place] [address]-10-14 08:42:00 Test Item Value Reference Range Interpretation Comments eGFR (test code = eGFR) 108 [place] 786342-10-14 08:42:00 Test Item Value Reference Range Interpretation Comments Phosphorus (test code = Phosphorus) 5.4 2.5-4.5 [place] 439852-10-14 08:42:00 Test Item Value Reference Range Interpretation Comments WBC (test code = WBC) 12.5 3.7-10.4 [place] [address]-10-14 08:42:00 Test Item Value Reference Range Interpretation Comments RBC (test code = RBC) 3.94 4.20-5.40 [place] 439852-10-14 08:42:00 Test Item Value Reference Range Interpretation Comments Hgb (test code = Hgb) 10.6 12.0-16.0 [place] [address]-10-14 08:42:00 Test Item Value Reference Range Interpretation Comments Hct (test code = Hct) 31.6 36.0-48.0 [place] [address]-10-14 08:42:00 Test Item Value Reference Range Interpretation Comments MCV (test code = MCV) 80.2 80.0-98.0 [place] [address]-10-14 08:42:00 Test Item Value Reference Range Interpretation Comments MCH (test code = MCH) 26.9 pg 27.0-31.0 [place] [address]-10-14 08:42:00 Test Item Value Reference Range Interpretation Comments MCHC (test code = MCHC) 33.6 32.0-36.0 [place] [address]-10-14 08:42:00 Test Item Value Reference Range Interpretation Comments Neutrophils # (test code = Neutrophils 9.8 1.5-8.1 #) [place] 439852-10-14 08:42:00 Test Item Value Reference Range Interpretation Comments RDW (test code = RDW) 16.4 11.5-14.5 [place] [address]-10-14 08:42:00 Test Item Value Reference Range Interpretation Comments Platelet (test code = Platelet) 339 133-450 [place] 439852-10-14 08:42:00 Test Item Value Reference Range Interpretation Comments MPV (test code = MPV) 8.0 7.4-10.4 [place] [address]-10-14 08:42:00 Test Item Value Reference Range Interpretation Comments Segs (test code = Segs) 77.8 45.0-75.0 [place] [address]-10-14 08:42:00 Test Item Value Reference Range Interpretation Comments Lymphocytes (test code = Lymphocytes) 13.5 20.0-40.0 [place] [address]-10-14 08:42:00 Test Item Value Reference Range Interpretation Comments Monocytes (test code = Monocytes) 6.5 2.0-12.0 [place] [address]-10-14 08:42:00 Test Item Value Reference Range Interpretation Comments Eosinophils (test code = 1.6 See_Comment [A utomated message] The Eosinophils) system which ge nerated this result tra nsmitted reference range : <=4.0. The reference r quynh was not used to int erpret this result as normal/abnormal . [facility] CenterWbmncjtIGSWJMRJEH0855-36-31 08:42:00 Test Item Value Reference Range Interpretation Comments Basophils (test code = 0.6 See_Comment [Aut omated message] The Basophils) system which ge nerated this result tra nsmitted reference range : <=1.0. The reference r quynh was not used to int erpret this result as normal/abnormal . [place] [address]-10-14 08:42:00 Test Item Value Reference Range Interpretation Comments Neutrophils # (test code = Neutrophils 9.8 1.5-8.1 #) [place] [address]-10-14 08:42:00 Test Item Value Reference Range Interpretation Comments Lymphocytes # (test code = Lymphocytes 1.7 1.0-5.5 #) [place] [address]-10-14 08:42:00 Test Item Value Reference Range Interpretation Comments Lymphocytes # (test code = Lymphocytes 1.7 1.0-5.5 #) [place] [address]-10-14 08:42:00 Test Item Value Reference Range Interpretation Comments Monocytes # (test code 0.8 See_Comment [Aut omated message] The = Monocytes #) system which generated this result tra nsmitted reference range : <=0.8. The reference r quynh was not used to int erpret this result as normal/abnormal . [place] [address]-10-14 08:42:00 Test Item Value Reference Range Interpretation Comments Eosinophils # (test code 0.2 See_Comment [A utomated message] The = Eosinophils #) system [employer] generated this result tra nsmitted reference range : <=0.5. The reference r quynh was not used to int erpret this result as normal/abnormal . [place] [address]-10-14 08:42:00 Test Item Value Reference Range Interpretation Comments Basophils # (test code 0.1 See_Comment [Aut omated message] The = Basophils #) system which generated this result tra nsmitted reference range : <=0.2. The reference r quynh was not used to int erpret this result as normal/abnormal . [place] [address]-10-14 08:42:00 Test Item Value Reference Range Interpretation Comments Monocytes # (test code 0.8 See_Comment [Aut omated message] The = Monocytes #) system which generated this result tra nsmitted reference range : <=0.8. The reference r quynh was not used to int erpret this result as normal/abnormal . [place] [address]-10-14 08:42:00 Test Item Value Reference Range Interpretation Comments Eosinophils # (test code 0.2 See_Comment [A utomated message] The = Eosinophils #) system [employer] generated this result tra nsmitted reference range : <=0.5. The reference r quynh was not used to int erpret this result as normal/abnormal . [place] [address]-10-14 08:42:00 Test Item Value Reference Range Interpretation Comments Basophils # (test code 0.1 See_Comment [Aut omated message] The = Basophils #) system which generated this result tra nsmitted reference range : <=0.2. The reference r quynh was not used to int erpret this result as normal/abnormal . [place] 786342-10-14 08:42:00 Test Item Value Reference Range Interpretation Comments Magnesium Lvl (test code = Magnesium 2.2 1.8-2.4 Lvl) [place] 786342-10-14 08:42:00 Test Item Value Reference Range Interpretation Comments Glucose Lvl (test code = Glucose Lvl) 89 70-99 [place] 786342-10-14 08:42:00 Test Item Value Reference Range Interpretation Comments BUN (test code = BUN) 8 7-22 [place] 786342-10-14 08:42:00 Test Item Value Reference Range Interpretation Comments Creatinine Lvl (test code = Creatinine 0.59 0.50-1.40 Lvl) [place] 786342-10-14 08:42:00 Test Item Value Reference Range Interpretation Comments Sodium Lvl (test code = Sodium Lvl) 142 135-145 [place] 786342-10-14 08:42:00 Test Item Value Reference Range Interpretation Comments Potassium Lvl (test code = Potassium 3.6 3.5-5.1 Lvl) [place] 786342-10-14 08:42:00 Test Item Value Reference Range Interpretation Comments Chloride Lvl (test code = Chloride Lvl) 103 95-109 [place] 786342-10-14 08:42:00 Test Item Value Reference Range Interpretation Comments CO2 (test code = CO2) 30 24-32 [place] 786342-10-14 08:42:00 Test Item Value Reference Range Interpretation Comments Calcium Lvl (test code = Calcium Lvl) 9.8 8.5-10.5 [place] 786342-10-14 08:42:00 Test Item Value Reference Range Interpretation Comments Total Protein (test code = Total 7.0 6.4-8.4 Protein) [place] 786342-10-14 08:42:00 Test Item Value Reference Range Interpretation Comments Albumin Lvl (test code = Albumin Lvl) 2.8 3.5-5.0 [place] 786342-10-14 08:42:00 Test Item Value Reference Range Interpretation Comments ALT (test code = ALT) 20 See_Comment [Auto mated message] The system which ge nerated this result transmit fabiano reference range : <=65. The reference range was not used to interpr et this result as aleks l/abnormal. [facility] [employer] [id number] 08:42:00 Test Item Value Reference Range Interpretation Comments AST (test code = AST) 11 See_Comment [Auto mated message] The system which ge nerated this result transmit fabiano reference range : <=37. The reference range was not used to interpr et this result as aleks l/abnormal. [facility] [employer] [id number] 08:42:00 Test Item Value Reference Range Interpretation Comments Alk Phos (test code = Alk Phos) 108 39-136 [facility] [employer] [id number] 08:42:00 Test Item Value Reference Range Interpretation Comments Bili Total (test code = Bili Total) 0.4 0.2-1.3 [facility] [employer] [id number] 08:42:00 Test Item Value Reference Range Interpretation Comments AGAP (test code = AGAP) 12.6 10.0-20.0 [facility] [employer] [id number] 08:42:00 Test Item Value Reference Range Interpretation Comments B/C Ratio (test code = B/C Ratio) 14 1 6-25 [facility] [id number] 08:42:00 Test Item Value Reference Range Interpretation Comments Globulin (test code = Globulin) 4.2 2.7-4.2 [facility] [employer] [id number] 08:42:00 Test Item Value Reference Range Interpretation Comments A/G Ratio (test code = A/G Ratio) 0.7 1 0.7-1.6 [facility] [employer] [id number] 08:42:00 Test Item Value Reference Range Interpretation Comments eGFR (test code = eGFR) 108 [facility] [employer] [id number] 08:42:00 Test Item Value Reference Range Interpretation Comments Phosphorus (test code = Phosphorus) 5.4 2.5-4.5 [facility]WvcglzsYKMCRCWZDM2811-03-89 08:42:00 Test Item Value Reference Range Interpretation Comments WBC (test code = WBC) 12.5 3.7-10.4 [place] 439852-10-14 08:42:00 Test Item Value Reference Range Interpretation Comments RBC (test code = RBC) 3.94 4.20-5.40 [place] 439852-10-14 08:42:00 Test Item Value Reference Range Interpretation Comments Hgb (test code = Hgb) 10.6 12.0-16.0 [place] [address]-10-14 08:42:00 Test Item Value Reference Range Interpretation Comments Hct (test code = Hct) 31.6 36.0-48.0 [place] 439852-10-14 08:42:00 Test Item Value Reference Range Interpretation Comments MCV (test code = MCV) 80.2 80.0-98.0 [place] 439852-10-14 08:42:00 Test Item Value Reference Range Interpretation Comments MCH (test code = MCH) 26.9 pg 27.0-31.0 [place] 439852-10-14 08:42:00 Test Item Value Reference Range Interpretation Comments MCHC (test code = MCHC) 33.6 32.0-36.0 [place] 439852-10-14 08:42:00 Test Item Value Reference Range Interpretation Comments RDW (test code = RDW) 16.4 11.5-14.5 [facility]BvlzsmqCUGGMXKTIY8193-55-81 08:42:00 Test Item Value Reference Range Interpretation Comments Platelet (test code = Platelet) 339 133-450 [facility] CenterFyravlrJLSMEUZKOV2507-74-21 08:42:00 Test Item Value Reference Range Interpretation Comments MPV (test code = MPV) 8.0 7.4-10.4 [facility] CenterNhiyiwiRFJNFDVETS3925-86-79 08:42:00 Test Item Value Reference Range Interpretation Comments Segs (test code = Segs) 77.8 45.0-75.0 [place] [address]-10-14 08:42:00 Test Item Value Reference Range Interpretation Comments Lymphocytes (test code = Lymphocytes) 13.5 20.0-40.0 [place] [address]-10-14 08:42:00 Test Item Value Reference Range Interpretation Comments Monocytes (test code = Monocytes) 6.5 2.0-12.0 [place] 439852-10-14 08:42:00 Test Item Value Reference Range Interpretation Comments Eosinophils (test code = 1.6 See_Comment [A utomated message] The Eosinophils) system which ge nerated this result tra nsmitted reference range : <=4.0. The reference r quynh was not used to int erpret this result as normal/abnormal . [place] [address]-10-14 08:42:00 Test Item Value Reference Range Interpretation Comments Basophils (test code = 0.6 See_Comment [Aut omated message] The Basophils) system which ge nerated this result tra nsmitted reference range : <=1.0. The reference r quynh was not used to int erpret this result as normal/abnormal . [place] [address]-10-14 08:42:00 Test Item Value Reference Range Interpretation Comments Neutrophils # (test code = Neutrophils 9.8 1.5-8.1 #) [place] [address]-10-14 08:42:00 Test Item Value Reference Range Interpretation Comments Lymphocytes # (test code = Lymphocytes 1.7 1.0-5.5 #) [place] [address]-10-14 08:42:00 Test Item Value Reference Range Interpretation Comments Monocytes # (test code 0.8 See_Comment [Aut omated message] The = Monocytes #) system which generated this result tra nsmitted reference range : <=0.8. The reference r quynh was not used to int erpret this result as normal/abnormal . [place] 439852-10-14 08:42:00 Test Item Value Reference Range Interpretation Comments Eosinophils # (test code 0.2 See_Comment [A utomated message] The = Eosinophils #) system whic h generated this result tra nsmitted reference range : <=0.5. The reference r quynh was not used to int erpret this result as normal/abnormal . [place] [address]-10-14 08:42:00 Test Item Value Reference Range Interpretation Comments Basophils # (test code 0.1 See_Comment [Aut omated message] The = Basophils #) system which generated this result tra nsmitted reference range : <=0.2. The reference r quynh was not used to int erpret this result as normal/abnormal . [facility]2022-10-14 08:42:00 Test Item Value Reference Range Interpretation Comments Magnesium Lvl (test code = Magnesium 2.2 1.8-2.4 Lvl) [place] 786342-10-14 08:42:00 Test Item Value Reference Range Interpretation Comments Glucose Lvl (test code = Glucose Lvl) 89 70-99 [place] 786342-10-14 08:42:00 Test Item Value Reference Range Interpretation Comments BUN (test code = BUN) 8 7-22 [place] 786342-10-14 08:42:00 Test Item Value Reference Range Interpretation Comments Creatinine Lvl (test code = Creatinine 0.59 0.50-1.40 Lvl) [place] 786342-10-14 08:42:00 Test Item Value Reference Range Interpretation Comments Sodium Lvl (test code = Sodium Lvl) 142 135-145 [place] 786342-10-14 08:42:00 Test Item Value Reference Range Interpretation Comments Potassium Lvl (test code = Potassium 3.6 3.5-5.1 Lvl) [place] 786342-10-14 08:42:00 Test Item Value Reference Range Interpretation Comments Chloride Lvl (test code = Chloride Lvl) 103 95-109 [place] 786342-10-14 08:42:00 Test Item Value Reference Range Interpretation Comments CO2 (test code = CO2) 30 24-32 [place] 786342-10-14 08:42:00 Test Item Value Reference Range Interpretation Comments Calcium Lvl (test code = Calcium Lvl) 9.8 8.5-10.5 [place] 786342-10-14 08:42:00 Test Item Value Reference Range Interpretation Comments Total Protein (test code = Total 7.0 6.4-8.4 Protein) [place] 786342-10-14 08:42:00 Test Item Value Reference Range Interpretation Comments Albumin Lvl (test code = Albumin Lvl) 2.8 3.5-5.0 [place] 786342-10-14 08:42:00 Test Item Value Reference Range Interpretation Comments ALT (test code = ALT) 20 See_Comment [Auto mated message] The system which ge nerated this result transmit fabiano reference range : <=65. The reference range was not used to interpr et this result as aleks l/abnormal. [place] [address]-10-14 08:42:00 Test Item Value Reference Range Interpretation Comments AST (test code = AST) 11 See_Comment [Auto mated message] The system which ge nerated this result transmit fabiano reference range : <=37. The reference range was not used to interpr et this result as aleks l/abnormal. [place] 786342-10-14 08:42:00 Test Item Value Reference Range Interpretation Comments Alk Phos (test code = Alk Phos) 108 39-136 [place] 786342-10-14 08:42:00 Test Item Value Reference Range Interpretation Comments Bili Total (test code = Bili Total) 0.4 0.2-1.3 [place] 786342-10-14 08:42:00 Test Item Value Reference Range Interpretation Comments AGAP (test code = AGAP) 12.6 10.0-20.0 [place] 786342-10-14 08:42:00 Test Item Value Reference Range Interpretation Comments B/C Ratio (test code = B/C Ratio) 14 1 6-25 [place] [address]-10-14 08:42:00 Test Item Value Reference Range Interpretation Comments Globulin (test code = Globulin) 4.2 2.7-4.2 [place] 786342-10-14 08:42:00 Test Item Value Reference Range Interpretation Comments A/G Ratio (test code = A/G Ratio) 0.7 1 0.7-1.6 [place] [address]-10-14 08:42:00 Test Item Value Reference Range Interpretation Comments eGFR (test code = eGFR) 108 [place] 786342-10-14 08:42:00 Test Item Value Reference Range Interpretation Comments Phosphorus (test code = Phosphorus) 5.4 2.5-4.5 [place] 439852-10-14 08:42:00 Test Item Value Reference Range Interpretation Comments WBC (test code = WBC) 12.5 3.7-10.4 [place] 439852-10-14 08:42:00 Test Item Value Reference Range Interpretation Comments RBC (test code = RBC) 3.94 4.20-5.40 [place] 439852-10-14 08:42:00 Test Item Value Reference Range Interpretation Comments Hgb (test code = Hgb) 10.6 12.0-16.0 [facility] CenterOznueiuJBQYFKXCGW0365-63-21 08:42:00 Test Item Value Reference Range Interpretation Comments Hct (test code = Hct) 31.6 36.0-48.0 [facility] CenterGeyzuzhDNJYJWONSJ4636-05-43 08:42:00 Test Item Value Reference Range Interpretation Comments MCV (test code = MCV) 80.2 80.0-98.0 [facility] CenterNkrjueiWZPCQBNNNG8310-12-75 08:42:00 Test Item Value Reference Range Interpretation Comments MCH (test code = MCH) 26.9 pg 27.0-31.0 [facility] CenterCgavcycFRRTSTTRGY0137-83-34 08:42:00 Test Item Value Reference Range Interpretation Comments MCHC (test code = MCHC) 33.6 32.0-36.0 [facility] CenterLvsbxvtFTQNPUGUKA5560-47-22 08:42:00 Test Item Value Reference Range Interpretation Comments RDW (test code = RDW) 16.4 11.5-14.5 [facility] CenterIsycytoTCRNEAKQKY3179-56-94 08:42:00 Test Item Value Reference Range Interpretation Comments Platelet (test code = Platelet) 339 133-450 [facility] CenterKcbozsjGGFTQHANEZ1494-51-20 08:42:00 Test Item Value Reference Range Interpretation Comments MPV (test code = MPV) 8.0 7.4-10.4 [facility] CenterIgdbofkKAOCOLJYOC5972-13-50 08:42:00 Test Item Value Reference Range Interpretation Comments Segs (test code = Segs) 77.8 45.0-75.0 [place] 439852-10-14 08:42:00 Test Item Value Reference Range Interpretation Comments Lymphocytes (test code = Lymphocytes) 13.5 20.0-40.0 [place] [address]-10-14 08:42:00 Test Item Value Reference Range Interpretation Comments Monocytes (test code = Monocytes) 6.5 2.0-12.0 [place] [address]-10-14 08:42:00 Test Item Value Reference Range Interpretation Comments Eosinophils (test code = 1.6 See_Comment [A utomated message] The Eosinophils) system which ge nerated this result tra nsmitted reference range : <=4.0. The reference r quynh was not used to int erpret this result as normal/abnormal . [facility] CenterYznpyfcVVAVHZVMWY1245-47-77 08:42:00 Test Item Value Reference Range Interpretation Comments Basophils (test code = 0.6 See_Comment [Aut omated message] The Basophils) system which ge nerated this result tra nsmitted reference range : <=1.0. The reference r quynh was not used to int erpret this result as normal/abnormal . [facility] CenterGxnpkunRHMCJYGYIC1088-50-30 08:42:00 Test Item Value Reference Range Interpretation Comments Neutrophils # (test code = Neutrophils 9.8 1.5-8.1 #) [facility] CenterOmiceajNVMSEETFQO2482-19-36 08:42:00 Test Item Value Reference Range Interpretation Comments Lymphocytes # (test code = Lymphocytes 1.7 1.0-5.5 #) [facility] CenterDdrxqdiIZGUBJVLUL4487-51-88 08:42:00 Test Item Value Reference Range Interpretation Comments Monocytes # (test code 0.8 See_Comment [Aut omated message] The = Monocytes #) system which generated this result tra nsmitted reference range : <=0.8. The reference r quynh was not used to int erpret this result as normal/abnormal . [facility] CenterLdtgnxdUULFLQUEUH5520-15-01 08:42:00 Test Item Value Reference Range Interpretation Comments Eosinophils # (test code 0.2 See_Comment [A utomated message] The = Eosinophils #) system whic h generated this result tra nsmitted reference range : <=0.5. The reference r quynh was not used to int erpret this result as normal/abnormal . [facility] CenterAiwrrolTNJTEZODPD7836-10-45 08:42:00 Test Item Value Reference Range Interpretation Comments Basophils # (test code 0.1 See_Comment [Aut omated message] The = Basophils #) system which generated this result tra nsmitted reference range : <=0.2. The reference r quynh was not used to int erpret this result as normal/abnormal . [facility] [id number] 23:55:00 Test Item Value Reference Range Interpretation Comments Source Strep (test code Urine *NA*(04/11/22 = Source Strep) 6:55 PM) [facility] [id number] 23:55:00 Test Item Value Reference Range Interpretation Comments Strep pneumoniae Ag Negative (04/11/22 (test code = Strep 6:55 PM) pneumoniae Ag) [facility] [id number] 23:55:[facility] Test Item Value Reference Range Interpretation Comments UA Color (test code = Yellow *NA*(04/11/22 UA Color) 6:55 PM) [facility] [id number] 23:55:00 Test Item Value Reference Range Interpretation Comments UA Turbidity (test code = Clear (04/11/22 6:55 UA Turbidity) PM) [facility] [id number] 23:55:00 Test Item Value Reference Range Interpretation Comments UA Spec Grav (test code = UA Spec 1.015 1 Grav) [facility] [id number] 23:55:00 Test Item Value Reference Range Interpretation Comments UA pH (test code = UA pH) 6.0 1 5.0-8.0 [facility] [id number] 23:55:00 Test Item Value Reference Range Interpretation Comments UA Protein (test code Negative (04/11/22 6:55 = UA Protein) PM) [facility] [id number] 23:55:00 Test Item Value Reference Range Interpretation Comments UA Glucose (test code Negative (04/11/22 6:55 = UA Glucose) PM) [facility] [id number] 23:55:00 Test Item Value Reference Range Interpretation Comments UA Ketones (test code Negative *NA*(04/11/22 = UA Ketones) 6:55 PM) [facility] [id number] 23:55:00 Test Item Value Reference Range Interpretation Comments UA Bili (test code = Negative *NA*(04/11/22 UA Bili) 6:55 PM) [facility] [id number] 23:55:00 Test Item Value Reference Range Interpretation Comments UA Blood (test code = Negative (04/11/22 6:55 UA Blood) PM) [facility] [id number] 23:55:00 Test Item Value Reference Range Interpretation Comments UA Urobilinogen (test code = UA 0.2 0.1-1.0 Urobilinogen) [facility] [id number] 23:55:00 Test Item Value Reference Range Interpretation Comments UA Nitrite (test code Negative (04/11/22 6:55 = UA Nitrite) PM) [facility] [id number] 23:55:00 Test Item Value Reference Range Interpretation Comments UA Leuk Est (test Negative (04/11/22 6:55 code = UA Leuk Est) PM) [facility] [id number] 23:55:00 Test Item Value Reference Range Interpretation Comments UA Sq Epi (test code = UA Sq Occasional /LPF Epi) [facility] [id number] 23:55:00 Test Item Value Reference Range Interpretation Comments UA WBC (test code = no gt See_Comment [Automa fabiano message] The UA WBC) system which ge nerated this result transmit fabiano reference range : <=5. The reference range was not used to interpr et this result as aleks l/abnormal. [facility] [id number] 23:55:00 Test Item Value Reference Range Interpretation Comments UA RBC (test code = no gt See_Comment [Automa fabiano message] The UA RBC) system which ge nerated this result transmit fabiano reference range : <=2. The reference range was not used to interpr et this result as aleks l/abnormal. [facility] [id number] 23:55:00 Test Item Value Reference Range Interpretation Comments UA Bacteria (test code = UA Occasional /HPF Bacteria) [facility] [id number] 23:55:00 Test Item Value Reference Range Interpretation Comments UA Mucus (test code = UA Mucus) Few /LPF [facility] [id number] 23:55:00 Test Item Value Reference Range Interpretation Comments UA Color (test code = Yellow *NA*(04/11/22 UA Color) 6:55 PM) [facility] [id number] 23:55:00 Test Item Value Reference Range Interpretation Comments UA Turbidity (test code = Clear (04/11/22 6:55 UA Turbidity) PM) [facility] [id number] 23:55:00 Test Item Value Reference Range Interpretation Comments UA Spec Grav (test code = UA Spec 1.015 1 Grav) [facility] [id number] 23:55:00 Test Item Value Reference Range Interpretation Comments UA pH (test code = UA pH) 6.0 1 5.0-8.0 [facility] [id number] 23:55:00 Test Item Value Reference Range Interpretation Comments UA Protein (test code Negative (04/11/22 6:55 = UA Protein) PM) [facility] [id number] 23:55:00 Test Item Value Reference Range Interpretation Comments UA Glucose (test code Negative (04/11/22 6:55 = UA Glucose) PM) [facility] [id number] 23:55:00 Test Item Value Reference Range Interpretation Comments UA Ketones (test code Negative *NA*(04/11/22 = UA Ketones) 6:55 PM) [facility] [id number] 23:55:00 Test Item Value Reference Range Interpretation Comments UA Bili (test code = Negative *NA*(04/11/22 UA Bili) 6:55 PM) [facility] [id number] 23:55:00 Test Item Value Reference Range Interpretation Comments UA Blood (test code = Negative (04/11/22 6:55 UA Blood) PM) [facility] [id number] 23:55:00 Test Item Value Reference Range Interpretation Comments UA Urobilinogen (test code = UA 0.2 0.1-1.0 Urobilinogen) [facility] [id number] 23:55:00 Test Item Value Reference Range Interpretation Comments UA Nitrite (test code Negative (04/11/22 6:55 = UA Nitrite) PM) [facility] [id number] 23:55:00 Test Item Value Reference Range Interpretation Comments UA Leuk Est (test Negative (04/11/22 6:55 code = UA Leuk Est) PM) [facility] [id number] 23:55:00 Test Item Value Reference Range Interpretation Comments UA Sq Epi (test code = UA Sq Occasional /LPF Epi) [facility] [id number] 23:55:00 Test Item Value Reference Range Interpretation Comments UA WBC (test code = no gt See_Comment [Automa fabiano message] The UA WBC) system which ge nerated this result transmit fabiano reference range : <=5. The reference range was not used to interpr et this result as aleks l/abnormal. [facility] [id number] 23:55:00 Test Item Value Reference Range Interpretation Comments UA RBC (test code = no gt See_Comment [Automa fabiano message] The UA RBC) system which ge nerated this result transmit fabiano reference range : <=2. The reference range was not used to interpr et this result as aleks l/abnormal. [facility] [id number] 23:55:00 Test Item Value Reference Range Interpretation Comments UA Bacteria (test code = UA Occasional /HPF Bacteria) [facility] [id number] 23:55:00 Test Item Value Reference Range Interpretation Comments UA Mucus (test code = UA Mucus) Few /LPF [facility] [id number] 23:55:00 Test Item Value Reference Range Interpretation Comments Source Strep (test code Urine *NA*(04/11/22 = Source Strep) 6:55 PM) [facility] - [id number] 23:55:00 Test Item Value Reference Range Interpretation Comments Strep pneumoniae Ag Negative (04/11/22 (test code = Strep 6:55 PM) pneumoniae Ag) [facility] [id number] 23:55:00 Test Item Value Reference Range Interpretation Comments UA Color (test code = Yellow *NA*(04/11/22 UA Color) 6:55 PM) [facility] [id number] 23:55:00 Test Item Value Reference Range Interpretation Comments UA Turbidity (test code = Clear (04/11/22 6:55 UA Turbidity) PM) [facility] [id number] 23:55:00 Test Item Value Reference Range Interpretation Comments UA Spec Grav (test code = UA Spec 1.015 1 Grav) [facility] [id number] 23:55:00 Test Item Value Reference Range Interpretation Comments UA pH (test code = UA pH) 6.0 1 5.0-8.0 [facility] [id number] 23:55:00 Test Item Value Reference Range Interpretation Comments UA Protein (test code Negative (04/11/22 6:55 = UA Protein) PM) [facility] [id number] 23:55:00 Test Item Value Reference Range Interpretation Comments UA Glucose (test code Negative (04/11/22 6:55 = UA Glucose) PM) [facility] [id number] 23:55:00 Test Item Value Reference Range Interpretation Comments UA Ketones (test code Negative *NA*(04/11/22 = UA Ketones) 6:55 PM) [facility] [id number] 23:55:00 Test Item Value Reference Range Interpretation Comments UA Bili (test code = Negative *NA*(04/11/22 UA Bili) 6:55 PM) [facility] [id number] 23:55:00 Test Item Value Reference Range Interpretation Comments UA Blood (test code = Negative (04/11/22 6:55 UA Blood) PM) [facility] [id number] 23:55:00 Test Item Value Reference Range Interpretation Comments UA Urobilinogen (test code = UA 0.2 0.1-1.0 Urobilinogen) [facility] [id number] 23:55:00 Test Item Value Reference Range Interpretation Comments UA Nitrite (test code Negative (04/11/22 6:55 = UA Nitrite) PM) [facility] [id number] 23:55:00 Test Item Value Reference Range Interpretation Comments UA Leuk Est (test Negative (04/11/22 6:55 code = UA Leuk Est) PM) [facility] [id number] 23:55:00 Test Item Value Reference Range Interpretation Comments UA Sq Epi (test code = UA Sq Occasional /LPF Epi) [facility] [id number] 23:55:00 Test Item Value Reference Range Interpretation Comments UA WBC (test code = no gt See_Comment [Automa fabiano message] The UA WBC) system which ge nerated this result transmit fabiano reference range : <=5. The reference range was not used to interpr et this result as aleks l/abnormal. [facility] [id number] 23:55:00 Test Item Value Reference Range Interpretation Comments UA RBC (test code = no gt See_Comment [Automa fabiano message] The UA RBC) system which ge nerated this result transmit fabiano reference range : <=2. The reference range was not used to interpr et this result as aleks l/abnormal. [facility] [id number] 23:55:00 Test Item Value Reference Range Interpretation Comments UA Bacteria (test code = UA Occasional /HPF Bacteria) [facility] [id number] 23:55:00 Test Item Value Reference Range Interpretation Comments UA Mucus (test code = UA Mucus) Few /LPF [facility] [id number] 23:55:00 Test Item Value Reference Range Interpretation Comments UA Color (test code = Yellow *NA*(04/11/22 UA Color) 6:55 PM) [facility] [id number] 23:55:00 Test Item Value Reference Range Interpretation Comments UA Turbidity (test code = Clear (04/11/22 6:55 UA Turbidity) PM) [facility] [id number] 23:55:00 Test Item Value Reference Range Interpretation Comments UA Spec Grav (test code = UA Spec 1.015 1 Grav) [facility] [id number] 23:55:00 Test Item Value Reference Range Interpretation Comments UA pH (test code = UA pH) 6.0 1 5.0-8.0 [facility] [id number] 23:55:00 Test Item Value Reference Range Interpretation Comments UA Protein (test code Negative (04/11/22 6:55 = UA Protein) PM) [facility] [id number] 23:55:00 Test Item Value Reference Range Interpretation Comments UA Glucose (test code Negative (04/11/22 6:55 = UA Glucose) PM) [facility] [id number] 23:55:00 Test Item Value Reference Range Interpretation Comments UA Ketones (test code Negative *NA*(04/11/22 = UA Ketones) 6:55 PM) [facility] [id number] 23:55:00 Test Item Value Reference Range Interpretation Comments UA Bili (test code = Negative *NA*(04/11/22 UA Bili) 6:55 PM) [facility] [id number] 23:55:00 Test Item Value Reference Range Interpretation Comments UA Blood (test code = Negative (04/11/22 6:55 UA Blood) PM) [facility] [id number] 23:55:00 Test Item Value Reference Range Interpretation Comments UA Urobilinogen (test code = UA 0.2 0.1-1.0 Urobilinogen) [facility] [id number] 23:55:00 Test Item Value Reference Range Interpretation Comments UA Nitrite (test code Negative (04/11/22 6:55 = UA Nitrite) PM) [facility] [id number] 23:55:00 Test Item Value Reference Range Interpretation Comments UA Leuk Est (test Negative (04/11/22 6:55 code = UA Leuk Est) PM) [facility] [id number] 23:55:00 Test Item Value Reference Range Interpretation Comments UA Sq Epi (test code = UA Sq Occasional /LPF Epi) [facility] [id number] 23:55:00 Test Item Value Reference Range Interpretation Comments UA WBC (test code = no gt See_Comment [Automa fabiano message] The UA WBC) system which ge nerated this result transmit fabiano reference range : <=5. The reference range was not used to interpr et this result as aleks l/abnormal. [facility] [id number] 23:55:00 Test Item Value Reference Range Interpretation Comments UA RBC (test code = no gt See_Comment [Automa fabiano message] The UA RBC) system which ge nerated this result transmit fabiano reference range : <=2. The reference range was not used to interpr et this result as aleks l/abnormal. [facility] [id number] 23:55:00 Test Item Value Reference Range Interpretation Comments UA Bacteria (test code = UA Occasional /HPF Bacteria) [facility] [id number] 23:55:00 Test Item Value Reference Range Interpretation Comments UA Mucus (test code = UA Mucus) Few /LPF [facility] [id number] 23:55:00 Test Item Value Reference Range Interpretation Comments Source Strep (test code Urine *NA*(04/11/22 = Source Strep) 6:55 PM) [facility] [id number] 23:55:00 Test Item Value Reference Range Interpretation Comments Strep pneumoniae Ag Negative (04/11/22 (test code = Strep 6:55 PM) pneumoniae Ag) [facility] [id number] 23:55:00 Test Item Value Reference Range Interpretation Comments UA Color (test code = Yellow *NA*(04/11/22 UA Color) 6:55 PM) [facility] [id number] 23:55:00 Test Item Value Reference Range Interpretation Comments UA Turbidity (test code = Clear (04/11/22 6:55 UA Turbidity) PM) [facility] [id number] 23:55:00 Test Item Value Reference Range Interpretation Comments UA Spec Grav (test code = UA Spec 1.015 1 Grav) [facility] [id number] 23:55:00 Test Item Value Reference Range Interpretation Comments UA pH (test code = UA pH) 6.0 1 5.0-8.0 [facility] [id number] 23:55:00 Test Item Value Reference Range Interpretation Comments UA Protein (test code Negative (04/11/22 6:55 = UA Protein) PM) [facility] [id number] 23:55:00 Test Item Value Reference Range Interpretation Comments UA Glucose (test code Negative (04/11/22 6:55 = UA Glucose) PM) [facility] [id number] 23:55:00 Test Item Value Reference Range Interpretation Comments UA Ketones (test code Negative *NA*(04/11/22 = UA Ketones) 6:55 PM) [facility] [id number] 23:55:00 Test Item Value Reference Range Interpretation Comments UA Bili (test code = Negative *NA*(04/11/22 UA Bili) 6:55 PM) [facility] [id number] 23:55:00 Test Item Value Reference Range Interpretation Comments UA Blood (test code = Negative (04/11/22 6:55 UA Blood) PM) [facility] [id number] 23:55:00 Test Item Value Reference Range Interpretation Comments UA Urobilinogen (test code = UA 0.2 0.1-1.0 Urobilinogen) [facility] [id number] 23:55:00 Test Item Value Reference Range Interpretation Comments UA Nitrite (test code Negative (04/11/22 6:55 = UA Nitrite) PM) [facility] [id number] 23:55:00 Test Item Value Reference Range Interpretation Comments UA Leuk Est (test Negative (04/11/22 6:55 code = UA Leuk Est) PM) [facility] [id number] 23:55:00 Test Item Value Reference Range Interpretation Comments UA Sq Epi (test code = UA Sq Occasional /LPF Epi) [facility] [id number] 23:55:00 Test Item Value Reference Range Interpretation Comments UA WBC (test code = no gt See_Comment [Automa fabiano message] The UA WBC) system which ge nerated this result transmit fabiano reference range : <=5. The reference range was not used to interpr et this result as aleks l/abnormal. [facility] [id number] 23:55:00 Test Item Value Reference Range Interpretation Comments UA RBC (test code = no gt See_Comment [Automa fabiano message] The UA RBC) system which ge nerated this result transmit fabiano reference range : <=2. The reference range was not used to interpr et this result as aleks l/abnormal. [facility] [id number] 23:55:00 Test Item Value Reference Range Interpretation Comments UA Bacteria (test code = UA Occasional /HPF Bacteria) [facility] [id number] 23:55:00 Test Item Value Reference Range Interpretation Comments UA Mucus (test code = UA Mucus) Few /LPF [facility] [id number] 23:55:00 Test Item Value Reference Range Interpretation Comments UA Color (test code = Yellow *NA*(04/11/22 UA Color) 6:55 PM) [facility] [id number] 23:55:00 Test Item Value Reference Range Interpretation Comments UA Turbidity (test code = Clear (04/11/22 6:55 UA Turbidity) PM) [facility] [id number] 23:55:00 Test Item Value Reference Range Interpretation Comments UA Spec Grav (test code = UA Spec 1.015 1 Grav) [facility] [id number] 23:55:00 Test Item Value Reference Range Interpretation Comments UA pH (test code = UA pH) 6.0 1 5.0-8.0 [facility] [id number] 23:55:00 Test Item Value Reference Range Interpretation Comments UA Protein (test code Negative (04/11/22 6:55 = UA Protein) PM) [facility] [id number] 23:55:00 Test Item Value Reference Range Interpretation Comments UA Glucose (test code Negative (04/11/22 6:55 = UA Glucose) PM) [facility] [id number] 23:55:00 Test Item Value Reference Range Interpretation Comments UA Ketones (test code Negative *NA*(04/11/22 = UA Ketones) 6:55 PM) [facility] [id number] 23:55:00 Test Item Value Reference Range Interpretation Comments UA Bili (test code = Negative *NA*(04/11/22 UA Bili) 6:55 PM) [facility] [id number] 23:55:00 Test Item Value Reference Range Interpretation Comments UA Blood (test code = Negative (04/11/22 6:55 UA Blood) PM) [facility] [id number] 23:55:00 Test Item Value Reference Range Interpretation Comments UA Urobilinogen (test code = UA 0.2 0.1-1.0 Urobilinogen) [facility] [id number] 23:55:00 Test Item Value Reference Range Interpretation Comments UA Nitrite (test code Negative (04/11/22 6:55 = UA Nitrite) PM) [facility] [id number] 23:55:00 Test Item Value Reference Range Interpretation Comments UA Leuk Est (test Negative (04/11/22 6:55 code = UA Leuk Est) PM) [facility] [id number] 23:55:00 Test Item Value Reference Range Interpretation Comments UA Sq Epi (test code = UA Sq Occasional /LPF Epi) [facility] [id number] 23:55:00 Test Item Value Reference Range Interpretation Comments UA WBC (test code = no gt See_Comment [Automa fabiano message] The UA WBC) system which ge nerated this result transmit fabiano reference range : <=5. The reference range was not used to interpr et this result as aleks l/abnormal. [facility] [id number] 23:55:00 Test Item Value Reference Range Interpretation Comments UA RBC (test code = no gt See_Comment [Automa fabiano message] The UA RBC) system which ge nerated this result transmit fabiano reference range : <=2. The reference range was not used to interpr et this result as aleks l/abnormal. [facility] [id number] 23:55:00 Test Item Value Reference Range Interpretation Comments UA Bacteria (test code = UA Occasional /HPF Bacteria) [facility] [id number] 23:55:00 Test Item Value Reference Range Interpretation Comments UA Mucus (test code = UA Mucus) Few /LPF [facility] [id number] 23:55:00 Test Item Value Reference Range Interpretation Comments Source Strep (test code Urine *NA*(04/11/22 = Source Strep) 6:55 PM) [facility] [id number] 23:55:00 Test Item Value Reference Range Interpretation Comments Strep pneumoniae Ag Negative (04/11/22 (test code = Strep 6:55 PM) pneumoniae Ag) [facility] [id number] 23:55:00 Test Item Value Reference Range Interpretation Comments UA Color (test code = Yellow *NA*(04/11/22 UA Color) 6:55 PM) [facility] [id number] 23:55:00 Test Item Value Reference Range Interpretation Comments UA Turbidity (test code = Clear (04/11/22 6:55 UA Turbidity) PM) [facility] [id number] 23:55:00 Test Item Value Reference Range Interpretation Comments UA Spec Grav (test code = UA Spec 1.015 1 Grav) [facility] [id number] 23:55:00 Test Item Value Reference Range Interpretation Comments UA pH (test code = UA pH) 6.0 1 5.0-8.0 [facility] [id number] 23:55:00 Test Item Value Reference Range Interpretation Comments UA Protein (test code Negative (04/11/22 6:55 = UA Protein) PM) [facility] [id number] 23:55:00 Test Item Value Reference Range Interpretation Comments UA Glucose (test code Negative (04/11/22 6:55 = UA Glucose) PM) [facility] [id number] 23:55:00 Test Item Value Reference Range Interpretation Comments UA Ketones (test code Negative *NA*(04/11/22 = UA Ketones) 6:55 PM) [facility] [id number] 23:55:00 Test Item Value Reference Range Interpretation Comments UA Bili (test code = Negative *NA*(04/11/22 UA Bili) 6:55 PM) [facility] [id number] 23:55:00 Test Item Value Reference Range Interpretation Comments UA Blood (test code = Negative (04/11/22 6:55 UA Blood) PM) [facility] [id number] 23:55:00 Test Item Value Reference Range Interpretation Comments UA Urobilinogen (test code = UA 0.2 0.1-1.0 Urobilinogen) [facility] [id number] 23:55:00 Test Item Value Reference Range Interpretation Comments UA Nitrite (test code Negative (04/11/22 6:55 = UA Nitrite) PM) [facility] [id number] 23:55:00 Test Item Value Reference Range Interpretation Comments UA Leuk Est (test Negative (04/11/22 6:55 code = UA Leuk Est) PM) [facility] [id number] 23:55:00 Test Item Value Reference Range Interpretation Comments UA Sq Epi (test code = UA Sq Occasional /LPF Epi) [facility] [id number] 23:55:00 Test Item Value Reference Range Interpretation Comments UA WBC (test code = no gt See_Comment [Automa fabiano message] The UA WBC) system which ge nerated this result transmit fabiano reference range : <=5. The reference range was not used to interpr et this result as aleks l/abnormal. [facility] [id number] 23:55:00 Test Item Value Reference Range Interpretation Comments UA RBC (test code = no gt See_Comment [Automa fabiano message] The UA RBC) system which ge nerated this result transmit fabiano reference range : <=2. The reference range was not used to interpr et this result as aleks l/abnormal. [facility] [id number] 23:55:00 Test Item Value Reference Range Interpretation Comments UA Bacteria (test code = UA Occasional /HPF Bacteria) [facility] [id number] 23:55:00 Test Item Value Reference Range Interpretation Comments UA Mucus (test code = UA Mucus) Few /LPF [facility] [id number] 23:55:00 Test Item Value Reference Range Interpretation Comments UA Color (test code = Yellow *NA*(04/11/22 UA Color) 6:55 PM) [facility] [id number] 23:55:00 Test Item Value Reference Range Interpretation Comments UA Turbidity (test code = Clear (04/11/22 6:55 UA Turbidity) PM) [facility] [id number] 23:55:00 Test Item Value Reference Range Interpretation Comments UA Spec Grav (test code = UA Spec 1.015 1 Grav) [facility] [id number] 23:55:00 Test Item Value Reference Range Interpretation Comments UA pH (test code = UA pH) 6.0 1 5.0-8.0 [facility] [id number] 23:55:00 Test Item Value Reference Range Interpretation Comments UA Protein (test code Negative (04/11/22 6:55 = UA Protein) PM) [facility] [id number] 23:55:00 Test Item Value Reference Range Interpretation Comments UA Glucose (test code Negative (04/11/22 6:55 = UA Glucose) PM) [facility] [id number] 23:55:00 Test Item Value Reference Range Interpretation Comments UA Ketones (test code Negative *NA*(04/11/22 = UA Ketones) 6:55 PM) [facility] [id number] 23:55:00 Test Item Value Reference Range Interpretation Comments UA Bili (test code = Negative *NA*(04/11/22 UA Bili) 6:55 PM) [facility] [id number] 23:55:00 Test Item Value Reference Range Interpretation Comments UA Blood (test code = Negative (04/11/22 6:55 UA Blood) PM) [facility] [id number] 23:55:00 Test Item Value Reference Range Interpretation Comments UA Urobilinogen (test code = UA 0.2 0.1-1.0 Urobilinogen) [facility] [id number] 23:55:00 Test Item Value Reference Range Interpretation Comments UA Nitrite (test code Negative (04/11/22 6:55 = UA Nitrite) PM) [facility] [id number] 23:55:00 Test Item Value Reference Range Interpretation Comments UA Leuk Est (test Negative (04/11/22 6:55 code = UA Leuk Est) PM) [facility] [id number] 23:55:00 Test Item Value Reference Range Interpretation Comments UA Sq Epi (test code = UA Sq Occasional /LPF Epi) [facility] [id number] 23:55:00 Test Item Value Reference Range Interpretation Comments UA WBC (test code = no gt See_Comment [Automa fabiano message] The UA WBC) system which ge nerated this result transmit fabiano reference range : <=5. The reference range was not used to interpr et this result as aleks l/abnormal. [facility] [id number] 23:55:00 Test Item Value Reference Range Interpretation Comments UA RBC (test code = no gt See_Comment [Automa fabiano message] The UA RBC) system which ge nerated this result transmit fabiano reference range : <=2. The reference range was not used to interpr et this result as aleks l/abnormal. [facility] [id number] 23:55:00 Test Item Value Reference Range Interpretation Comments UA Bacteria (test code = UA Occasional /HPF Bacteria) [facility] [id number] 23:55:00 Test Item Value Reference Range Interpretation Comments UA Mucus (test code = UA Mucus) Few /LPF [facility] [id number] 23:55:00 Test Item Value Reference Range Interpretation Comments Source Strep (test code Urine *NA*(04/11/22 = Source Strep) 6:55 PM) [facility] [id number] 23:55:00 Test Item Value Reference Range Interpretation Comments Strep pneumoniae Ag Negative (04/11/22 (test code = Strep 6:55 PM) pneumoniae Ag) [facility] [id number] 23:55:00 Test Item Value Reference Range Interpretation Comments UA Color (test code = Yellow *NA*(04/11/22 UA Color) 6:55 PM) [facility] [id number] 23:55:00 Test Item Value Reference Range Interpretation Comments UA Turbidity (test code = Clear (04/11/22 6:55 UA Turbidity) PM) [facility] [id number] 23:55:00 Test Item Value Reference Range Interpretation Comments UA Spec Grav (test code = UA Spec 1.015 1 Grav) [facility] [id number] 23:55:00 Test Item Value Reference Range Interpretation Comments UA pH (test code = UA pH) 6.0 1 5.0-8.0 [facility] [id number] 23:55:00 Test Item Value Reference Range Interpretation Comments UA Protein (test code Negative (04/11/22 6:55 = UA Protein) PM) [facility] [id number] 23:55:00 Test Item Value Reference Range Interpretation Comments UA Glucose (test code Negative (04/11/22 6:55 = UA Glucose) PM) [facility] [id number] 23:55:00 Test Item Value Reference Range Interpretation Comments UA Ketones (test code Negative *NA*(04/11/22 = UA Ketones) 6:55 PM) [facility] [id number] 23:55:00 Test Item Value Reference Range Interpretation Comments UA Bili (test code = Negative *NA*(04/11/22 UA Bili) 6:55 PM) [facility] [id number] 23:55:00 Test Item Value Reference Range Interpretation Comments UA Blood (test code = Negative (04/11/22 6:55 UA Blood) PM) [facility] [id number] 23:55:00 Test Item Value Reference Range Interpretation Comments UA Urobilinogen (test code = UA 0.2 0.1-1.0 Urobilinogen) [facility] [id number] 23:55:00 Test Item Value Reference Range Interpretation Comments UA Nitrite (test code Negative (04/11/22 6:55 = UA Nitrite) PM) [facility] [id number] 23:55:00 Test Item Value Reference Range Interpretation Comments UA Leuk Est (test Negative (04/11/22 6:55 code = UA Leuk Est) PM) [facility] [id number] 23:55:00 Test Item Value Reference Range Interpretation Comments UA Sq Epi (test code = UA Sq Occasional /LPF Epi) [facility] [id number] 23:55:00 Test Item Value Reference Range Interpretation Comments UA WBC (test code = no gt See_Comment [Automa fabiano message] The UA WBC) system which ge nerated this result transmit fabiano reference range : <=5. The reference range was not used to interpr et this result as aleks l/abnormal. [facility] [id number] 23:55:00 Test Item Value Reference Range Interpretation Comments UA RBC (test code = no gt See_Comment [Automa fabiano message] The UA RBC) system which ge nerated this result transmit fabiano reference range : <=2. The reference range was not used to interpr et this result as aleks l/abnormal. [facility] [id number] 23:55:00 Test Item Value Reference Range Interpretation Comments UA Bacteria (test code = UA Occasional /HPF Bacteria) [facility] [id number] 23:55:00 Test Item Value Reference Range Interpretation Comments UA Mucus (test code = UA Mucus) Few /LPF [facility] [id number] 23:55:00 Test Item Value Reference Range Interpretation Comments UA Color (test code = Yellow *NA*(04/11/22 UA Color) 6:55 PM) [facility] [id number] 23:55:00 Test Item Value Reference Range Interpretation Comments UA Turbidity (test code = Clear (04/11/22 6:55 UA Turbidity) PM) [facility] [id number] 23:55:00 Test Item Value Reference Range Interpretation Comments UA Spec Grav (test code = UA Spec 1.015 1 Grav) [facility] [id number] 23:55:00 Test Item Value Reference Range Interpretation Comments UA pH (test code = UA pH) 6.0 1 5.0-8.0 [facility] [id number] 23:55:00 Test Item Value Reference Range Interpretation Comments UA Protein (test code Negative (04/11/22 6:55 = UA Protein) PM) [facility] [id number] 23:55:00 Test Item Value Reference Range Interpretation Comments UA Glucose (test code Negative (04/11/22 6:55 = UA Glucose) PM) [facility] [id number] 23:55:00 Test Item Value Reference Range Interpretation Comments UA Ketones (test code Negative *NA*(04/11/22 = UA Ketones) 6:55 PM) [facility] [id number] 23:55:00 Test Item Value Reference Range Interpretation Comments UA Bili (test code = Negative *NA*(04/11/22 UA Bili) 6:55 PM) [facility] [id number] 23:55:00 Test Item Value Reference Range Interpretation Comments UA Blood (test code = Negative (04/11/22 6:55 UA Blood) PM) [facility] [id number] 23:55:00 Test Item Value Reference Range Interpretation Comments UA Urobilinogen (test code = UA 0.2 0.1-1.0 Urobilinogen) [facility] [id number] 23:55:00 Test Item Value Reference Range Interpretation Comments UA Nitrite (test code Negative (04/11/22 6:55 = UA Nitrite) PM) [facility] [id number] 23:55:00 Test Item Value Reference Range Interpretation Comments UA Leuk Est (test Negative (04/11/22 6:55 code = UA Leuk Est) PM) [facility] [id number] 23:55:00 Test Item Value Reference Range Interpretation Comments UA Sq Epi (test code = UA Sq Occasional /LPF Epi) [facility] [id number] 23:55:00 Test Item Value Reference Range Interpretation Comments UA WBC (test code = no gt See_Comment [Automa fabiano message] The UA WBC) system which ge nerated this result transmit fabiano reference range : <=5. The reference range was not used to interpr et this result as aleks l/abnormal. [facility] [id number] 23:55:00 Test Item Value Reference Range Interpretation Comments UA RBC (test code = no gt See_Comment [Automa fabiano message] The UA RBC) system which ge nerated this result transmit fabiano reference range : <=2. The reference range was not used to interpr et this result as aleks l/abnormal. [facility] [id number] 23:55:00 Test Item Value Reference Range Interpretation Comments UA Bacteria (test code = UA Occasional /HPF Bacteria) [facility] [id number] 23:55:00 Test Item Value Reference Range Interpretation Comments UA Mucus (test code = UA Mucus) Few /LPF [facility] [id number] 23:55:00 Test Item Value Reference Range Interpretation Comments Source Strep (test code Urine *NA*(04/11/22 = Source Strep) 6:55 PM) [facility] [id number] 23:55:00 Test Item Value Reference Range Interpretation Comments Strep pneumoniae Ag Negative (04/11/22 (test code = Strep 6:55 PM) pneumoniae Ag) [facility] [id number] 23:55:00 Test Item Value Reference Range Interpretation Comments UA Color (test code = Yellow *NA*(04/11/22 UA Color) 6:55 PM) [facility] [id number] 23:55:00 Test Item Value Reference Range Interpretation Comments UA Turbidity (test code = Clear (04/11/22 6:55 UA Turbidity) PM) [facility] [id number] 23:55:00 Test Item Value Reference Range Interpretation Comments UA Spec Grav (test code = UA Spec 1.015 1 Grav) [facility] [id number] 23:55:00 Test Item Value Reference Range Interpretation Comments UA pH (test code = UA pH) 6.0 1 5.0-8.0 [facility] [id number] 23:55:00 Test Item Value Reference Range Interpretation Comments UA Protein (test code Negative (04/11/22 6:55 = UA Protein) PM) [facility] [id number] 23:55:00 Test Item Value Reference Range Interpretation Comments UA Glucose (test code Negative (04/11/22 6:55 = UA Glucose) PM) [facility] [id number] 23:55:00 Test Item Value Reference Range Interpretation Comments UA Ketones (test code Negative *NA*(04/11/22 = UA Ketones) 6:55 PM) [facility] [id number] 23:55:00 Test Item Value Reference Range Interpretation Comments UA Bili (test code = Negative *NA*(04/11/22 UA Bili) 6:55 PM) [facility] [id number] 23:55:00 Test Item Value Reference Range Interpretation Comments UA Blood (test code = Negative (04/11/22 6:55 UA Blood) PM) [facility] [id number] 23:55:00 Test Item Value Reference Range Interpretation Comments UA Urobilinogen (test code = UA 0.2 0.1-1.0 Urobilinogen) [facility] [id number] 23:55:00 Test Item Value Reference Range Interpretation Comments UA Nitrite (test code Negative (04/11/22 6:55 = UA Nitrite) PM) [facility] [id number] 23:55:00 Test Item Value Reference Range Interpretation Comments UA Leuk Est (test Negative (04/11/22 6:55 code = UA Leuk Est) PM) [facility] [id number] 23:55:00 Test Item Value Reference Range Interpretation Comments UA Sq Epi (test code = UA Sq Occasional /LPF Epi) [facility] [id number] 23:55:00 Test Item Value Reference Range Interpretation Comments UA WBC (test code = no gt See_Comment [Automa fabiano message] The UA WBC) system which ge nerated this result transmit fabiano reference range : <=5. The reference range was not used to interpr et this result as aleks l/abnormal. [facility] [id number] 23:55:00 Test Item Value Reference Range Interpretation Comments UA RBC (test code = no gt See_Comment [Automa fabiano message] The UA RBC) system which ge nerated this result transmit fabiano reference range : <=2. The reference range was not used to interpr et this result as aleks l/abnormal. [facility] [id number] 23:55:00 Test Item Value Reference Range Interpretation Comments UA Bacteria (test code = UA Occasional /HPF Bacteria) [facility] [id number] 23:55:00 Test Item Value Reference Range Interpretation Comments UA Mucus (test code = UA Mucus) Few /LPF [facility] [id number] 23:55:00 Test Item Value Reference Range Interpretation Comments UA Color (test code = Yellow *NA*(04/11/22 UA Color) 6:55 PM) [facility] [id number] 23:55:00 Test Item Value Reference Range Interpretation Comments UA Turbidity (test code = Clear (04/11/22 6:55 UA Turbidity) PM) [facility] [id number] 23:55:00 Test Item Value Reference Range Interpretation Comments UA Spec Grav (test code = UA Spec 1.015 1 Grav) [facility] [id number] 23:55:00 Test Item Value Reference Range Interpretation Comments UA pH (test code = UA pH) 6.0 1 5.0-8.0 [facility] [id number] 23:55:00 Test Item Value Reference Range Interpretation Comments UA Protein (test code Negative (04/11/22 6:55 = UA Protein) PM) [facility] [id number] 23:55:00 Test Item Value Reference Range Interpretation Comments UA Glucose (test code Negative (04/11/22 6:55 = UA Glucose) PM) [facility] [id number] 23:55:00 Test Item Value Reference Range Interpretation Comments UA Ketones (test code Negative *NA*(04/11/22 = UA Ketones) 6:55 PM) [facility] [id number] 23:55:00 Test Item Value Reference Range Interpretation Comments UA Bili (test code = Negative *NA*(04/11/22 UA Bili) 6:55 PM) [facility] [id number] 23:55:00 Test Item Value Reference Range Interpretation Comments UA Blood (test code = Negative (04/11/22 6:55 UA Blood) PM) [facility] [id number] 23:55:00 Test Item Value Reference Range Interpretation Comments UA Urobilinogen (test code = UA 0.2 0.1-1.0 Urobilinogen) [facility] [id number] 23:55:00 Test Item Value Reference Range Interpretation Comments UA Nitrite (test code Negative (04/11/22 6:55 = UA Nitrite) PM) [facility] [id number] 23:55:00 Test Item Value Reference Range Interpretation Comments UA Leuk Est (test Negative (04/11/22 6:55 code = UA Leuk Est) PM) [facility] [id number] 23:55:00 Test Item Value Reference Range Interpretation Comments UA Sq Epi (test code = UA Sq Occasional /LPF Epi) [facility] [id number] 23:55:00 Test Item Value Reference Range Interpretation Comments UA WBC (test code = no gt See_Comment [Automa fabiano message] The UA WBC) system which ge nerated this result transmit fabiano reference range : <=5. The reference range was not used to interpr et this result as aleks l/abnormal. [facility] [id number] 23:55:00 Test Item Value Reference Range Interpretation Comments UA RBC (test code = no gt See_Comment [Automa fabiano message] The UA RBC) system which ge nerated this result transmit fabiano reference range : <=2. The reference range was not used to interpr et this result as aleks l/abnormal. [facility] [id number] 23:55:00 Test Item Value Reference Range Interpretation Comments UA Bacteria (test code = UA Occasional /HPF Bacteria) [facility] [id number] 23:55:00 Test Item Value Reference Range Interpretation Comments UA Mucus (test code = UA Mucus) Few /LPF [facility] [id number] 23:55:00 Test Item Value Reference Range Interpretation Comments Source Strep (test code Urine *NA*(04/11/22 = Source Strep) 6:55 PM) [facility] [id number] 23:55:00 Test Item Value Reference Range Interpretation Comments Strep pneumoniae Ag Negative (04/11/22 (test code = Strep 6:55 PM) pneumoniae Ag) [facility] [id number] 23:55:00 Test Item Value Reference Range Interpretation Comments UA Color (test code = Yellow *NA*(04/11/22 UA Color) 6:55 PM) [facility] [id number] 23:55:00 Test Item Value Reference Range Interpretation Comments UA Turbidity (test code = Clear (04/11/22 6:55 UA Turbidity) PM) [facility] [id number] 23:55:00 Test Item Value Reference Range Interpretation Comments UA Spec Grav (test code = UA Spec 1.015 1 Grav) [facility] [id number] 23:55:00 Test Item Value Reference Range Interpretation Comments UA pH (test code = UA pH) 6.0 1 5.0-8.0 [facility] [id number] 23:55:00 Test Item Value Reference Range Interpretation Comments UA Protein (test code Negative (04/11/22 6:55 = UA Protein) PM) [facility] [id number] 23:55:00 Test Item Value Reference Range Interpretation Comments UA Glucose (test code Negative (04/11/22 6:55 = UA Glucose) PM) [facility] [id number] 23:55:00 Test Item Value Reference Range Interpretation Comments UA Ketones (test code Negative *NA*(04/11/22 = UA Ketones) 6:55 PM) [facility] [id number] 23:55:00 Test Item Value Reference Range Interpretation Comments UA Bili (test code = Negative *NA*(04/11/22 UA Bili) 6:55 PM) [facility] [id number] 23:55:00 Test Item Value Reference Range Interpretation Comments UA Blood (test code = Negative (04/11/22 6:55 UA Blood) PM) [facility] [id number] 23:55:00 Test Item Value Reference Range Interpretation Comments UA Urobilinogen (test code = UA 0.2 0.1-1.0 Urobilinogen) [facility] [id number] 23:55:00 Test Item Value Reference Range Interpretation Comments UA Nitrite (test code Negative (04/11/22 6:55 = UA Nitrite) PM) [facility] [id number] 23:55:00 Test Item Value Reference Range Interpretation Comments UA Leuk Est (test Negative (04/11/22 6:55 code = UA Leuk Est) PM) [facility] [id number] 23:55:00 Test Item Value Reference Range Interpretation Comments UA Sq Epi (test code = UA Sq Occasional /LPF Epi) [facility] [id number] 23:55:00 Test Item Value Reference Range Interpretation Comments UA WBC (test code = no gt See_Comment [Automa fabiano message] The UA WBC) system which ge nerated this result transmit fabiano reference range : <=5. The reference range was not used to interpr et this result as aleks l/abnormal. [facility] [id number] 23:55:00 Test Item Value Reference Range Interpretation Comments UA RBC (test code = no gt See_Comment [Automa fabiano message] The UA RBC) system which ge nerated this result transmit fabiano reference range : <=2. The reference range was not used to interpr et this result as aleks l/abnormal. [facility] [id number] 23:55:00 Test Item Value Reference Range Interpretation Comments UA Bacteria (test code = UA Occasional /HPF Bacteria) [facility] [id number] 23:55:00 Test Item Value Reference Range Interpretation Comments UA Mucus (test code = UA Mucus) Few /LPF [facility] [id number] 23:55:00 Test Item Value Reference Range Interpretation Comments UA Color (test code = Yellow *NA*(04/11/22 UA Color) 6:55 PM) [facility] [id number] 23:55:00 Test Item Value Reference Range Interpretation Comments Source Strep (test code Urine *NA*(04/11/22 = Source Strep) 6:55 PM) [facility] [id number] 23:55:00 Test Item Value Reference Range Interpretation Comments Strep pneumoniae Ag Negative (04/11/22 (test code = Strep 6:55 PM) pneumoniae Ag) [facility] [id number] 23:55:00 Test Item Value Reference Range Interpretation Comments UA Color (test code = Yellow *NA*(04/11/22 UA Color) 6:55 PM) [facility] [id number] 23:55:00 Test Item Value Reference Range Interpretation Comments UA Turbidity (test code = Clear (04/11/22 6:55 UA Turbidity) PM) [facility] [id number] 23:55:00 Test Item Value Reference Range Interpretation Comments UA Spec Grav (test code = UA Spec 1.015 1 Grav) [facility] [id number] 23:55:00 Test Item Value Reference Range Interpretation Comments UA pH (test code = UA pH) 6.0 1 5.0-8.0 [facility] [id number] 23:55:00 Test Item Value Reference Range Interpretation Comments UA Protein (test code Negative (04/11/22 6:55 = UA Protein) PM) [facility] [id number] 23:55:00 Test Item Value Reference Range Interpretation Comments UA Turbidity (test code = Clear (04/11/22 6:55 UA Turbidity) PM) [facility] [id number] 23:55:00 Test Item Value Reference Range Interpretation Comments UA Glucose (test code Negative (04/11/22 6:55 = UA Glucose) PM) [facility] [id number] 23:55:00 Test Item Value Reference Range Interpretation Comments UA Ketones (test code Negative *NA*(04/11/22 = UA Ketones) 6:55 PM) [facility] [id number] 23:55:00 Test Item Value Reference Range Interpretation Comments UA Bili (test code = Negative *NA*(04/11/22 UA Bili) 6:55 PM) [facility] [id number] 23:55:00 Test Item Value Reference Range Interpretation Comments UA Blood (test code = Negative (04/11/22 6:55 UA Blood) PM) [facility] [id number] 23:55:00 Test Item Value Reference Range Interpretation Comments UA Urobilinogen (test code = UA 0.2 0.1-1.0 Urobilinogen) [facility] [id number] 23:55:00 Test Item Value Reference Range Interpretation Comments UA Nitrite (test code Negative (04/11/22 6:55 = UA Nitrite) PM) [facility] [id number] 23:55:00 Test Item Value Reference Range Interpretation Comments UA Leuk Est (test Negative (04/11/22 6:55 code = UA Leuk Est) PM) [facility] [id number] 23:55:00 Test Item Value Reference Range Interpretation Comments UA Sq Epi (test code = UA Sq Occasional /LPF Epi) [facility] [id number] 23:55:00 Test Item Value Reference Range Interpretation Comments UA WBC (test code = no gt See_Comment [Automa fabiano message] The UA WBC) system which ge nerated this result transmit fabiano reference range : <=5. The reference range was not used to interpr et this result as aleks l/abnormal. [facility] [id number] 23:55:00 Test Item Value Reference Range Interpretation Comments UA RBC (test code = no gt See_Comment [Automa fabiano message] The UA RBC) system which ge nerated this result transmit fabiano reference range : <=2. The reference range was not used to interpr et this result as aleks l/abnormal. [facility] [id number] 23:55:00 Test Item Value Reference Range Interpretation Comments UA Spec Grav (test code = UA Spec 1.015 1 Grav) [facility] [id number] 23:55:00 Test Item Value Reference Range Interpretation Comments UA Bacteria (test code = UA Occasional /HPF Bacteria) [facility] [id number] 23:55:00 Test Item Value Reference Range Interpretation Comments UA Mucus (test code = UA Mucus) Few /LPF [facility] [id number] 23:55:00 Test Item Value Reference Range Interpretation Comments UA Color (test code = Yellow *NA*(04/11/22 UA Color) 6:55 PM) [facility] [id number] 23:55:00 Test Item Value Reference Range Interpretation Comments UA Turbidity (test code = Clear (04/11/22 6:55 UA Turbidity) PM) [facility] [id number] 23:55:00 Test Item Value Reference Range Interpretation Comments UA Spec Grav (test code = UA Spec 1.015 1 Grav) [facility] [id number] 23:55:00 Test Item Value Reference Range Interpretation Comments UA pH (test code = UA pH) 6.0 1 5.0-8.0 [facility] [id number] 23:55:00 Test Item Value Reference Range Interpretation Comments UA Protein (test code Negative (04/11/22 6:55 = UA Protein) PM) [facility] [id number] 23:55:00 Test Item Value Reference Range Interpretation Comments UA Glucose (test code Negative (04/11/22 6:55 = UA Glucose) PM) [facility] [id number] 23:55:00 Test Item Value Reference Range Interpretation Comments UA Ketones (test code Negative *NA*(04/11/22 = UA Ketones) 6:55 PM) [facility] [id number] 23:55:00 Test Item Value Reference Range Interpretation Comments UA Bili (test code = Negative *NA*(04/11/22 UA Bili) 6:55 PM) [facility] [id number] 23:55:00 Test Item Value Reference Range Interpretation Comments UA pH (test code = UA pH) 6.0 1 5.0-8.0 [facility] [id number] 23:55:00 Test Item Value Reference Range Interpretation Comments UA Blood (test code = Negative (04/11/22 6:55 UA Blood) PM) [facility] [id number] 23:55:00 Test Item Value Reference Range Interpretation Comments UA Urobilinogen (test code = UA 0.2 0.1-1.0 Urobilinogen) [facility] [id number] 23:55:00 Test Item Value Reference Range Interpretation Comments UA Nitrite (test code Negative (04/11/22 6:55 = UA Nitrite) PM) [facility] [id number] 23:55:00 Test Item Value Reference Range Interpretation Comments UA Leuk Est (test Negative (04/11/22 6:55 code = UA Leuk Est) PM) [facility] [id number] 23:55:00 Test Item Value Reference Range Interpretation Comments UA Sq Epi (test code = UA Sq Occasional /LPF Epi) [facility] [id number] 23:55:00 Test Item Value Reference Range Interpretation Comments UA WBC (test code = no gt See_Comment [Automa fabiano message] The UA WBC) system which ge nerated this result transmit fabiano reference range : <=5. The reference range was not used to interpr et this result as aleks l/abnormal. [facility] [id number] 23:55:00 Test Item Value Reference Range Interpretation Comments UA RBC (test code = no gt See_Comment [Automa fabiano message] The UA RBC) system which ge nerated this result transmit fabiano reference range : <=2. The reference range was not used to interpr et this result as aleks l/abnormal. [facility] [id number] 23:55:00 Test Item Value Reference Range Interpretation Comments UA Bacteria (test code = UA Occasional /HPF Bacteria) [facility] [id number] 23:55:00 Test Item Value Reference Range Interpretation Comments UA Mucus (test code = UA Mucus) Few /LPF [facility] [id number] 23:55:00 Test Item Value Reference Range Interpretation Comments UA Protein (test code Negative (04/11/22 6:55 = UA Protein) PM) [facility] [id number] 23:55:00 Test Item Value Reference Range Interpretation Comments UA Glucose (test code Negative (04/11/22 6:55 = UA Glucose) PM) [facility] [id number] 23:55:00 Test Item Value Reference Range Interpretation Comments UA Ketones (test code Negative *NA*(04/11/22 = UA Ketones) 6:55 PM) [facility] [id number] 23:55:00 Test Item Value Reference Range Interpretation Comments UA Bili (test code = Negative *NA*(04/11/22 UA Bili) 6:55 PM) [facility] [id number] 23:55:00 Test Item Value Reference Range Interpretation Comments UA Blood (test code = Negative (04/11/22 6:55 UA Blood) PM) [facility] [id number] 23:55:00 Test Item Value Reference Range Interpretation Comments UA Urobilinogen (test code = UA 0.2 0.1-1.0 Urobilinogen) [facility] [id number] 23:55:00 Test Item Value Reference Range Interpretation Comments UA Nitrite (test code Negative (04/11/22 6:55 = UA Nitrite) PM) [facility] [id number] 23:55:00 Test Item Value Reference Range Interpretation Comments UA Leuk Est (test Negative (04/11/22 6:55 code = UA Leuk Est) PM) [facility] [id number] 23:55:00 Test Item Value Reference Range Interpretation Comments UA Sq Epi (test code = UA Sq Occasional /LPF Epi) [facility] [id number] 23:55:00 Test Item Value Reference Range Interpretation Comments UA WBC (test code = no gt See_Comment [Automa fabiano message] The UA WBC) system which ge nerated this result transmit fabiano reference range : <=5. The reference range was not used to interpr et this result as aleks l/abnormal. [facility] [id number] 23:55:00 Test Item Value Reference Range Interpretation Comments UA RBC (test code = no gt See_Comment [Automa fabiano message] The UA RBC) system which ge nerated this result transmit fabiano reference range : <=2. The reference range was not used to interpr et this result as aleks l/abnormal. [facility] [id number] 23:55:00 Test Item Value Reference Range Interpretation Comments UA Bacteria (test code = UA Occasional /HPF Bacteria) [facility] [id number] 23:55:00 Test Item Value Reference Range Interpretation Comments UA Mucus (test code = UA Mucus) Few /LPF [facility] [id number] 23:55:00 Test Item Value Reference Range Interpretation Comments Source Strep (test code Urine *NA*(04/11/22 = Source Strep) 6:55 PM) [facility] [id number] 23:55:00 Test Item Value Reference Range Interpretation Comments Strep pneumoniae Ag Negative (04/11/22 (test code = Strep 6:55 PM) pneumoniae Ag) [facility] [id number] 23:55:00 Test Item Value Reference Range Interpretation Comments UA Color (test code = Yellow *NA*(04/11/22 UA Color) 6:55 PM) [facility] [id number] 23:55:00 Test Item Value Reference Range Interpretation Comments UA Turbidity (test code = Clear (04/11/22 6:55 UA Turbidity) PM) [facility] [id number] 23:55:00 Test Item Value Reference Range Interpretation Comments UA Spec Grav (test code = UA Spec 1.015 1 Grav) [facility] [id number] 23:55:00 Test Item Value Reference Range Interpretation Comments UA pH (test code = UA pH) 6.0 1 5.0-8.0 [facility] [id number] 23:55:00 Test Item Value Reference Range Interpretation Comments UA Protein (test code Negative (04/11/22 6:55 = [facility]A Protein) PM) [facility] [id number] [facility]:55:00 Test Item Value Reference Range Interpretation Comments UA Glucose (test code Negative (04/11/22 6:55 = UA Glucose) PM) [facility] [id number] 23:55:00 Test Item Value Reference Range Interpretation Comments UA Ketones (test code Negative *NA*(04/11/22 = UA Ketones) 6:55 PM) [facility] [id number] 23:55:00 Test Item Value Reference Range Interpretation Comments UA Bili (test code = Negative *NA*(04/11/22 UA Bili) 6:55 PM) [facility] [id number] 23:55:00 Test Item Value Reference Range Interpretation Comments UA Blood (test code = Negative (04/11/22 6:55 UA Blood) PM) [facility] [id number] 23:55:00 Test Item Value Reference Range Interpretation Comments UA Urobilinogen (test code = UA 0.2 0.1-1.0 Urobilinogen) [facility] [id number] 23:55:00 Test Item Value Reference Range Interpretation Comments UA Nitrite (test code Negative (04/11/22 6:55 = UA Nitrite) PM) [facility] [id number] 23:55:00 Test Item Value Reference Range Interpretation Comments UA Leuk Est (test Negative (04/11/22 6:55 code = UA Leuk Est) PM) [facility] [id number] 23:55:00 Test Item Value Reference Range Interpretation Comments UA Sq Epi (test code = UA Sq Occasional /LPF Epi) [facility] [id number] 23:55:00 Test Item Value Reference Range Interpretation Comments UA WBC (test code = no gt See_Comment [Automa fabiano message] The UA WBC) system which ge nerated this result transmit fabiano reference range : <=5. The reference range was not used to interpr et this result as aleks l/abnormal. [facility] [id number] 23:55:00 Test Item Value Reference Range Interpretation Comments UA RBC (test code = no gt See_Comment [Automa fabiano message] The UA RBC) system which ge nerated this result transmit fabiano reference range : <=2. The reference range was not used to interpr et this result as aleks l/abnormal. [facility] [id number] 23:55:00 Test Item Value Reference Range Interpretation Comments UA Bacteria (test code = UA Occasional /HPF Bacteria) [facility] [id number] 23:55:00 Test Item Value Reference Range Interpretation Comments UA Mucus (test code = UA Mucus) Few /LPF [facility] [id number] 23:55:00 Test Item Value Reference Range Interpretation Comments UA Color (test code = Yellow *NA*(04/11/22 UA Color) 6:55 PM) [facility] [id number] 23:55:00 Test Item Value Reference Range Interpretation Comments UA Turbidity (test code = Clear (04/11/22 6:55 UA Turbidity) PM) [facility] [id number] 23:55:00 Test Item Value Reference Range Interpretation Comments UA Spec Grav (test code = UA Spec 1.015 1 Grav) [facility] [id number] 23:55:00 Test Item Value Reference Range Interpretation Comments UA pH (test code = UA pH) 6.0 1 5.0-8.0 [facility] [id number] 23:55:00 Test Item Value Reference Range Interpretation Comments UA Protein (test code Negative (04/11/22 6:55 = UA Protein) PM) [facility] [id number] 23:55:00 Test Item Value Reference Range Interpretation Comments UA Glucose (test code Negative (04/11/22 6:55 = UA Glucose) PM) [facility] [id number] 23:55:00 Test Item Value Reference Range Interpretation Comments UA Ketones (test code Negative *NA*(04/11/22 = UA Ketones) 6:55 PM) [facility] [id number] 23:55:00 Test Item Value Reference Range Interpretation Comments UA Bili (test code = Negative *NA*(04/11/22 UA Bili) 6:55 PM) [facility] [id number] 23:55:00 Test Item Value Reference Range Interpretation Comments UA Blood (test code = Negative (04/11/22 6:55 UA Blood) PM) [facility] [id number] 23:55:00 Test Item Value Reference Range Interpretation Comments UA Urobilinogen (test code = UA 0.2 0.1-1.0 Urobilinogen) [facility] [id number] 23:55:00 Test Item Value Reference Range Interpretation Comments UA Nitrite (test code Negative (04/11/22 6:55 = UA Nitrite) PM) [facility] [id number] 23:55:00 Test Item Value Reference Range Interpretation Comments UA Leuk Est (test Negative (04/11/22 6:55 code = UA Leuk Est) PM) [facility] [id number] 23:55:00 Test Item Value Reference Range Interpretation Comments UA Sq Epi (test code = UA Sq Occasional /LPF Epi) [facility] [id number] 23:55:00 Test Item Value Reference Range Interpretation Comments UA WBC (test code = no gt See_Comment [Automa fabiano message] The UA WBC) system which ge nerated this result transmit fabiano reference range : <=5. The reference range was not used to interpr et this result as aleks l/abnormal. [facility] [id number] 23:55:00 Test Item Value Reference Range Interpretation Comments UA RBC (test code = no gt See_Comment [Automa fabiano message] The UA RBC) system which ge nerated this result transmit fabiano reference range : <=2. The reference range was not used to interpr et this result as aleks l/abnormal. [facility] [id number] 23:55:00 Test Item Value Reference Range Interpretation Comments UA Bacteria (test code = UA Occasional /HPF Bacteria) [facility] [id number] 23:55:00 Test Item Value Reference Range Interpretation Comments UA Mucus (test code = UA Mucus) Few /LPF [facility] [id number] 23:55:00 Test Item Value Reference Range Interpretation Comments Source Strep (test code Urine *NA*(04/11/22 = Source Strep) 6:55 PM) [facility] [id number] 23:55:00 Test Item Value Reference Range Interpretation Comments Strep pneumoniae Ag Negative (04/11/22 (test code = Strep 6:55 PM) pneumoniae Ag) [facility] [id number] 23:55:00 Test Item Value Reference Range Interpretation Comments UA Color (test code = Yellow *NA*(04/11/22 UA Color) 6:55 PM) [facility] [id number] 23:55:00 Test Item Value Reference Range Interpretation Comments UA Turbidity (test code = Clear (04/11/22 6:55 UA Turbidity) PM) [facility] [id number] 23:55:00 Test Item Value Reference Range Interpretation Comments UA Spec Grav (test code = UA Spec 1.015 1 Grav) [facility] [id number] 23:55:00 Test Item Value Reference Range Interpretation Comments UA pH (test code = UA pH) 6.0 1 5.0-8.0 [facility] [id number] 23:55:00 Test Item Value Reference Range Interpretation Comments UA Protein (test code Negative (04/11/22 6:55 = UA Protein) PM) [facility] [id number] 23:55:00 Test Item Value Reference Range Interpretation Comments UA Glucose (test code Negative (04/11/22 6:55 = UA Glucose) PM) [facility] [id number] 23:55:00 Test Item Value Reference Range Interpretation Comments UA Ketones (test code Negative *NA*(04/11/22 = UA Ketones) 6:55 PM) [facility] [id number] 23:55:00 Test Item Value Reference Range Interpretation Comments UA Bili (test code = Negative *NA*(04/11/22 UA Bili) 6:55 PM) [facility] [id number] 23:55:00 Test Item Value Reference Range Interpretation Comments UA Blood (test code = Negative (04/11/22 6:55 UA Blood) PM) [facility] [id number] 23:55:00 Test Item Value Reference Range Interpretation Comments UA Urobilinogen (test code = UA 0.2 0.1-1.0 Urobilinogen) [facility] [id number] 23:55:00 Test Item Value Reference Range Interpretation Comments UA Nitrite (test code Negative (04/11/22 6:55 = UA Nitrite) PM) [facility] [id number] 23:55:00 Test Item Value Reference Range Interpretation Comments UA Leuk Est (test Negative (04/11/22 6:55 code = UA Leuk Est) PM) [facility] [id number] 23:55:00 Test Item Value Reference Range Interpretation Comments UA Sq Epi (test code = UA Sq Occasional /LPF Epi) [facility] AND [id number] 23:55:00 Test Item Value Reference Range Interpretation Comments UA WBC (test code = no gt See_Comment [Automa fabiano message] The UA WBC) system which ge nerated this result transmit fabiano reference range : <=5. The reference range was not used to interpr et this result as aleks l/abnormal. [facility] [id number] 23:55:00 Test Item Value Reference Range Interpretation Comments UA RBC (test code = no gt See_Comment [Automa fabiano message] The UA RBC) system which ge nerated this result transmit fabiano reference range : <=2. The reference range was not used to interpr et this result as aleks l/abnormal. [facility] [id number] 23:55:00 Test Item Value Reference Range Interpretation Comments UA Bacteria (test code = UA Occasional /HPF Bacteria) [facility] [id number] 23:55:00 Test Item Value Reference Range Interpretation Comments UA Mucus (test code = UA Mucus) Few /LPF [facility] [id number] 23:55:00 Test Item Value Reference Range Interpretation Comments UA Color (test code = Yellow *NA*(04/11/22 UA Color) 6:55 PM) [facility] [id number] 23:55:00 Test Item Value Reference Range Interpretation Comments UA Turbidity (test code = Clear (04/11/22 6:55 UA Turbidity) PM) [facility] [id number] 23:55:00 Test Item Value Reference Range Interpretation Comments UA Spec Grav (test code = UA Spec 1.015 1 Grav) [facility] [id number] 23:55:00 Test Item Value Reference Range Interpretation Comments UA pH (test code = UA pH) 6.0 1 5.0-8.0 [facility] [id number] 23:55:00 Test Item Value Reference Range Interpretation Comments UA Protein (test code Negative (04/11/22 6:55 = UA Protein) PM) [facility] [id number] 23:55:00 Test Item Value Reference Range Interpretation Comments UA Glucose (test code Negative (04/11/22 6:55 = UA Glucose) PM) [facility] [id number] 23:55:00 Test Item Value Reference Range Interpretation Comments UA Ketones (test code Negative *NA*(04/11/22 = UA Ketones) 6:55 PM) [facility] [id number] 23:55:00 Test Item Value Reference Range Interpretation Comments UA Bili (test code = Negative *NA*(04/11/22 UA Bili) 6:55 PM) [facility] [id number] 23:55:00 Test Item Value Reference Range Interpretation Comments UA Blood (test code = Negative (04/11/22 6:55 UA Blood) PM) [facility] [id number] 23:55:00 Test Item Value Reference Range Interpretation Comments UA Urobilinogen (test code = UA 0.2 0.1-1.0 Urobilinogen) [facility] [id number] 23:55:00 Test Item Value Reference Range Interpretation Comments UA Nitrite (test code Negative (04/11/22 6:55 = UA Nitrite) PM) [facility] [id number] 23:55:00 Test Item Value Reference Range Interpretation Comments UA Leuk Est (test Negative (04/11/22 6:55 code = UA Leuk Est) PM) [facility] [id number] 23:55:00 Test Item Value Reference Range Interpretation Comments UA Sq Epi (test code = UA Sq Occasional /LPF Epi) [facility] [id number] 23:55:00 Test Item Value Reference Range Interpretation Comments UA WBC (test code = no gt See_Comment [Automa fabiano message] The UA WBC) system which ge nerated this result transmit fabiano reference range : <=5. The reference range was not used to interpr et this result as aleks l/abnormal. [facility] [id number] 23:55:00 Test Item Value Reference Range Interpretation Comments UA RBC (test code = no gt See_Comment [Automa fabiano message] The UA RBC) system which ge nerated this result transmit fabiano reference range : <=2. The reference range was not used to interpr et this result as aleks l/abnormal. [facility] [id number] 23:55:00 Test Item Value Reference Range Interpretation Comments UA Bacteria (test code = UA Occasional /HPF Bacteria) [facility] [id number] 23:55:00 Test Item Value Reference Range Interpretation Comments UA Mucus (test code = UA Mucus) Few /LPF [facility] [id number] 23:55:00 Test Item Value Reference Range Interpretation Comments Source Strep (test code Urine *NA*(04/11/22 = Source Strep) 6:55 PM) [facility] [id number] 23:55:00 Test Item Value Reference Range Interpretation Comments Strep pneumoniae Ag Negative (04/11/22 (test code = Strep 6:55 PM) pneumoniae Ag) [facility] [id number] 23:55:00 Test Item Value Reference Range Interpretation Comments UA Color (test code = Yellow *NA*(04/11/22 UA Color) 6:55 PM) [facility] [id number] 23:55:00 Test Item Value Reference Range Interpretation Comments UA Turbidity (test code = Clear (04/11/22 6:55 UA Turbidity) PM) [facility] [id number] 23:55:00 Test Item Value Reference Range Interpretation Comments UA Spec Grav (test code = UA Spec 1.015 1 Grav) [facility] [id number] 23:55:00 Test Item Value Reference Range Interpretation Comments UA pH (test code = UA pH) 6.0 1 5.0-8.0 [facility] [id number] 23:55:00 Test Item Value Reference Range Interpretation Comments UA Protein (test code Negative (04/11/22 6:55 = UA Protein) PM) [facility] [id number] 23:55:00 Test Item Value Reference Range Interpretation Comments UA Glucose (test code Negative (04/11/22 6:55 = UA Glucose) PM) [facility] [id number] 23:55:00 Test Item Value Reference Range Interpretation Comments UA Ketones (test code Negative *NA*(04/11/22 = UA Ketones) 6:55 PM) [facility] [id number] 23:55:00 Test Item Value Reference Range Interpretation Comments UA Bili (test code = Negative *NA*(04/11/22 UA Bili) 6:55 PM) [facility] [id number] 23:55:00 Test Item Value Reference Range Interpretation Comments UA Blood (test code = Negative (04/11/22 6:55 UA Blood) PM) [facility] [id number] 23:55:00 Test Item Value Reference Range Interpretation Comments UA Urobilinogen (test code = UA 0.2 0.1-1.0 Urobilinogen) [facility] [id number] 23:55:00 Test Item Value Reference Range Interpretation Comments UA Nitrite (test code Negative (04/11/22 6:55 = UA Nitrite) PM) [facility] [id number] 23:55:00 Test Item Value Reference Range Interpretation Comments UA Leuk Est (test Negative (04/11/22 6:55 code = UA Leuk Est) PM) [facility] [id number] 23:55:00 Test Item Value Reference Range Interpretation Comments UA Sq Epi (test code = UA Sq Occasional /LPF Epi) [facility] [id number] 23:55:00 Test Item Value Reference Range Interpretation Comments UA WBC (test code = no gt See_Comment [Automa fabiano message] The UA WBC) system which ge nerated this result transmit fabiano reference range : <=5. The reference range was not used to interpr et this result as aleks l/abnormal. [facility] [id number] 23:55:00 Test Item Value Reference Range Interpretation Comments UA RBC (test code = no gt See_Comment [Automa fabiano message] The UA RBC) system which ge nerated this result transmit fabiano reference range : <=2. The reference range was not used to interpr et this result as aleks l/abnormal. [facility] [id number] 23:55:00 Test Item Value Reference Range Interpretation Comments UA Bacteria (test code = UA Occasional /HPF Bacteria) [facility] [id number] 23:55:00 Test Item Value Reference Range Interpretation Comments UA Mucus (test code = UA Mucus) Few /LPF [facility] [id number] 23:55:00 Test Item Value Reference Range Interpretation Comments UA Color (test code = Yellow *NA*(04/11/22 UA Color) 6:55 PM) [facility] [id number] 23:55:00 Test Item Value Reference Range Interpretation Comments UA Turbidity (test code = Clear (04/11/22 6:55 UA Turbidity) PM) [facility] [id number] 23:55:00 Test Item Value Reference Range Interpretation Comments UA Spec Grav (test code = UA Spec 1.015 1 Grav) [facility] [id number] 23:55:00 Test Item Value Reference Range Interpretation Comments UA pH (test code = UA pH) 6.0 1 5.0-8.0 [facility] [id number] 23:55:00 Test Item Value Reference Range Interpretation Comments UA Protein (test code Negative (04/11/22 6:55 = UA Protein) PM) [facility] [id number] 23:55:00 Test Item Value Reference Range Interpretation Comments UA Glucose (test code Negative (04/11/22 6:55 = UA Glucose) PM) [facility] [id number] 23:55:00 Test Item Value Reference Range Interpretation Comments UA Ketones (test code Negative *NA*(04/11/22 = UA Ketones) 6:55 PM) [facility] [id number] 23:55:00 Test Item Value Reference Range Interpretation Comments UA Bili (test code = Negative *NA*(04/11/22 UA Bili) 6:55 PM) [facility] [id number] 23:55:00 Test Item Value Reference Range Interpretation Comments UA Blood (test code = Negative (04/11/22 6:55 UA Blood) PM) [facility] [id number] 23:55:00 Test Item Value Reference Range Interpretation Comments UA Urobilinogen (test code = UA 0.2 0.1-1.0 Urobilinogen) [facility] [id number] 23:55:00 Test Item Value Reference Range Interpretation Comments UA Nitrite (test code Negative (04/11/22 6:55 = UA Nitrite) PM) [facility] [id number] 23:55:00 Test Item Value Reference Range Interpretation Comments UA Leuk Est (test Negative (04/11/22 6:55 code = UA Leuk Est) PM) [facility] [id number] 23:55:00 Test Item Value Reference Range Interpretation Comments UA Sq Epi (test code = UA Sq Occasional /LPF Epi) [facility] [id number] 23:55:00 Test Item Value Reference Range Interpretation Comments UA WBC (test code = no gt See_Comment [Automa fabiano message] The UA WBC) system which ge nerated this result transmit fabiano reference range : <=5. The reference range was not used to interpr et this result as aleks l/abnormal. [facility] [id number] 23:55:00 Test Item Value Reference Range Interpretation Comments UA RBC (test code = no gt See_Comment [Automa fabiano message] The UA RBC) system which ge nerated this result transmit fabiano reference range : <=2. The reference range was not used to interpr et this result as aleks l/abnormal. [facility] [id number] 23:55:00 Test Item Value Reference Range Interpretation Comments UA Bacteria (test code = UA Occasional /HPF Bacteria) [facility] [id number] 23:55:00 Test Item Value Reference Range Interpretation Comments UA Mucus (test code = UA Mucus) Few /LPF [facility] [id number] 23:55:00 Test Item Value Reference Range Interpretation Comments Source Strep (test code Urine *NA*(04/11/22 = Source Strep) 6:55 PM) [facility] [id number] 23:55:00 Test Item Value Reference Range Interpretation Comments Strep pneumoniae Ag Negative (04/11/22 (test code = Strep 6:55 PM) pneumoniae Ag) [facility] [id number] 23:55:00 Test Item Value Reference Range Interpretation Comments UA Color (test code = Yellow *NA*(04/11/22 UA Color) 6:55 PM) [facility] [id number] 23:55:00 Test Item Value Reference Range Interpretation Comments UA Turbidity (test code = Clear (04/11/22 6:55 UA Turbidity) PM) [facility] [id number] 23:55:00 Test Item Value Reference Range Interpretation Comments UA Spec Grav (test code = UA Spec 1.015 1 Grav) [facility] [id number] 23:55:00 Test Item Value Reference Range Interpretation Comments UA pH (test code = UA pH) 6.0 1 5.0-8.0 [facility] [id number] 23:55:00 Test Item Value Reference Range Interpretation Comments UA Protein (test code Negative (04/11/22 6:55 = UA Protein) PM) [facility] [id number] 23:55:00 Test Item Value Reference Range Interpretation Comments UA Glucose (test code Negative (04/11/22 6:55 = UA Glucose) PM) [facility] AND [id number] 23:55:00 Test Item Value Reference Range Interpretation Comments UA Ketones (test code Negative *NA*(04/11/22 = UA Ketones) 6:55 PM) [facility] AND [id number] 23:55:00 Test Item Value Reference Range Interpretation Comments UA Bili (test code = Negative *NA*(04/11/22 UA Bili) 6:55 PM) [facility] AND [id number] 23:55:00 Test Item Value Reference Range Interpretation Comments UA Blood (test code = Negative (04/11/22 6:55 UA Blood) PM) [facility] AND [id number] 23:55:00 Test Item Value Reference Range Interpretation Comments UA Urobilinogen (test code = UA 0.2 0.1-1.0 Urobilinogen) [facility] AND [id number] 23:55:00 Test Item Value Reference Range Interpretation Comments UA Nitrite (test code Negative (04/11/22 6:55 = UA Nitrite) PM) [facility] AND [id number] 23:55:00 Test Item Value Reference Range Interpretation Comments UA Leuk Est (test Negative (04/11/22 6:55 code = UA Leuk Est) PM) [facility] AND [id number] 23:55:00 Test Item Value Reference Range Interpretation Comments UA Sq Epi (test code = UA Sq Occasional /LPF Epi) [facility] AND [id number] 23:55:00 Test Item Value Reference Range Interpretation Comments UA WBC (test code = no gt See_Comment [Automa fabiano message] The UA WBC) system which ge nerated this result transmit fabiano reference range : <=5. The reference range was not used to interpr et this result as aleks l/abnormal. [facility] AND [id number] 23:55:00 Test Item Value Reference Range Interpretation Comments UA RBC (test code = no gt See_Comment [Automa fabiano message] The UA RBC) system which ge nerated this result transmit fabiano reference range : <=2. The reference range was not used to interpr et this result as aleks l/abnormal. [facility] [id number] 23:55:00 Test Item Value Reference Range Interpretation Comments UA Bacteria (test code = UA Occasional /HPF Bacteria) [facility] [id number] 23:55:00 Test Item Value Reference Range Interpretation Comments UA Mucus (test code = UA Mucus) Few /LPF [facility] [id number] 23:55:00 Test Item Value Reference Range Interpretation Comments UA Color (test code = Yellow *NA*(04/11/22 UA Color) 6:55 PM) [facility] [id number] 23:55:00 Test Item Value Reference Range Interpretation Comments UA Turbidity (test code = Clear (04/11/22 6:55 UA Turbidity) PM) [facility] [id number] 23:55:00 Test Item Value Reference Range Interpretation Comments UA Spec Grav (test code = UA Spec 1.015 1 Grav) [facility] [id number] 23:55:00 Test Item Value Reference Range Interpretation Comments UA pH (test code = UA pH) 6.0 1 5.0-8.0 [facility] [id number] 23:55:00 Test Item Value Reference Range Interpretation Comments UA Protein (test code Negative (04/11/22 6:55 = UA Protein) PM) [facility] [id number] 23:55:00 Test Item Value Reference Range Interpretation Comments UA Glucose (test code Negative (04/11/22 6:55 = UA Glucose) PM) [facility] [id number] 23:55:00 Test Item Value Reference Range Interpretation Comments UA Ketones (test code Negative *NA*(04/11/22 = [facility]A Ketones) 6:55 PM) [facility] [id number] [facility]:55:00 Test Item Value Reference Range Interpretation Comments UA Bili (test code = Negative *NA*(04/11/22 UA Bili) 6:55 PM) [facility] [id number] 23:55:00 Test Item Value Reference Range Interpretation Comments UA Blood (test code = Negative (04/11/22 6:55 UA Blood) PM) [facility] [id number] 23:55:00 Test Item Value Reference Range Interpretation Comments UA Urobilinogen (test code = UA 0.2 0.1-1.0 Urobilinogen) [facility] [id number] 23:55:00 Test Item Value Reference Range Interpretation Comments UA Nitrite (test code Negative (04/11/22 6:55 = UA Nitrite) PM) [facility] [id number] 23:55:00 Test Item Value Reference Range Interpretation Comments UA Leuk Est (test Negative (04/11/22 6:55 code = UA Leuk Est) PM) [facility] [id number] 23:55:00 Test Item Value Reference Range Interpretation Comments UA Sq Epi (test code = UA Sq Occasional /LPF Epi) [facility] [id number] 23:55:00 Test Item Value Reference Range Interpretation Comments UA WBC (test code = no gt See_Comment [Automa fabiano message] The UA WBC) system which ge nerated this result transmit fabiano reference range : <=5. The reference range was not used to interpr et this result as aleks l/abnormal. [facility] [id number] 23:55:00 Test Item Value Reference Range Interpretation Comments UA RBC (test code = no gt See_Comment [Automa fabiano message] The UA RBC) system which ge nerated this result transmit fabiano reference range : <=2. The reference range was not used to interpr et this result as aleks l/abnormal. [facility] [id number] 23:55:00 Test Item Value Reference Range Interpretation Comments UA Bacteria (test code = UA Occasional /HPF Bacteria) [facility] [id number] 23:55:00 Test Item Value Reference Range Interpretation Comments UA Mucus (test code = UA Mucus) Few /LPF [facility] [id number] 23:55:00 Test Item Value Reference Range Interpretation Comments Source Strep (test code Urine *NA*(04/11/22 = Source Strep) 6:55 PM) [facility] [id number] 23:55:00 Test Item Value Reference Range Interpretation Comments Strep pneumoniae Ag Negative (04/11/22 (test code = Strep 6:55 PM) pneumoniae Ag) [facility] [id number] 23:55:00 Test Item Value Reference Range Interpretation Comments UA Color (test code = Yellow *NA*(04/11/22 UA Color) 6:55 PM) [facility] [id number] 23:55:00 Test Item Value Reference Range Interpretation Comments UA Turbidity (test code = Clear (04/11/22 6:55 UA Turbidity) PM) [facility] [id number] 23:55:00 Test Item Value Reference Range Interpretation Comments UA Spec Grav (test code = UA Spec 1.015 1 Grav) [facility] [id number] 23:55:00 Test Item Value Reference Range Interpretation Comments UA pH (test code = UA pH) 6.0 1 5.0-8.0 [facility] [id number] 23:55:00 Test Item Value Reference Range Interpretation Comments UA Protein (test code Negative (04/11/22 6:55 = UA Protein) PM) [facility] [id number] 23:55:00 Test Item Value Reference Range Interpretation Comments UA Glucose (test code Negative (04/11/22 6:55 = UA Glucose) PM) [facility] [id number] 23:55:00 Test Item Value Reference Range Interpretation Comments UA Ketones (test code Negative *NA*(04/11/22 = UA Ketones) 6:55 PM) [facility] [id number] 23:55:00 Test Item Value Reference Range Interpretation Comments UA Bili (test code = Negative *NA*(04/11/22 UA Bili) 6:55 PM) [facility] [id number] 23:55:00 Test Item Value Reference Range Interpretation Comments UA Blood (test code = Negative (04/11/22 6:55 UA Blood) PM) [facility] [id number] 23:55:00 Test Item Value Reference Range Interpretation Comments UA Urobilinogen (test code = UA 0.2 0.1-1.0 Urobilinogen) [facility] [id number] 23:55:00 Test Item Value Reference Range Interpretation Comments UA Nitrite (test code Negative (04/11/22 6:55 = UA Nitrite) PM) [facility] [id number] 23:55:00 Test Item Value Reference Range Interpretation Comments UA Leuk Est (test Negative (04/11/22 6:55 code = UA Leuk Est) PM) [facility] [id number] 23:55:00 Test Item Value Reference Range Interpretation Comments UA Sq Epi (test code = UA Sq Occasional /LPF Epi) [facility] [id number] 23:55:00 Test Item Value Reference Range Interpretation Comments UA WBC (test code = no gt See_Comment [Automa fabiano message] The UA WBC) system which ge nerated this result transmit fabiano reference range : <=5. The reference range was not used to interpr et this result as aleks l/abnormal. [facility] [id number] 23:55:00 Test Item Value Reference Range Interpretation Comments UA RBC (test code = no gt See_Comment [Automa fabiano message] The UA RBC) system which ge nerated this result transmit fabiano reference range : <=2. The reference range was not used to interpr et this result as aleks l/abnormal. [facility] [id number] 23:55:00 Test Item Value Reference Range Interpretation Comments UA Bacteria (test code = UA Occasional /HPF Bacteria) [facility] [id number] 23:55:00 Test Item Value Reference Range Interpretation Comments UA Mucus (test code = UA Mucus) Few /LPF [facility] [id number] 23:55:00 Test Item Value Reference Range Interpretation Comments UA Color (test code = Yellow *NA*(04/11/22 UA Color) 6:55 PM) [facility] [id number] 23:55:00 Test Item Value Reference Range Interpretation Comments UA Turbidity (test code = Clear (04/11/22 6:55 UA Turbidity) PM) [facility] [id number] 23:55:00 Test Item Value Reference Range Interpretation Comments UA Spec Grav (test code = UA Spec 1.015 1 Grav) [facility] [id number] 23:55:00 Test Item Value Reference Range Interpretation Comments UA pH (test code = UA pH) 6.0 1 5.0-8.0 [facility] [id number] 23:55:00 Test Item Value Reference Range Interpretation Comments UA Protein (test code Negative (04/11/22 6:55 = UA Protein) PM) [facility] [id number] 23:55:00 Test Item Value Reference Range Interpretation Comments UA Glucose (test code Negative (04/11/22 6:55 = UA Glucose) PM) [facility] [id number] 23:55:00 Test Item Value Reference Range Interpretation Comments UA Ketones (test code Negative *NA*(04/11/22 = UA Ketones) 6:55 PM) [facility] [id number] 23:55:00 Test Item Value Reference Range Interpretation Comments UA Bili (test code = Negative *NA*(04/11/22 UA Bili) 6:55 PM) [facility] [id number] 23:55:00 Test Item Value Reference Range Interpretation Comments UA Blood (test code = Negative (04/11/22 6:55 UA Blood) PM) [facility] [id number] 23:55:00 Test Item Value Reference Range Interpretation Comments UA Urobilinogen (test code = UA 0.2 0.1-1.0 Urobilinogen) [facility] [id number] 23:55:00 Test Item Value Reference Range Interpretation Comments UA Nitrite (test code Negative (04/11/22 6:55 = UA Nitrite) PM) [facility] [id number] 23:55:00 Test Item Value Reference Range Interpretation Comments UA Leuk Est (test Negative (04/11/22 6:55 code = UA Leuk Est) PM) [facility] [id number] 23:55:00 Test Item Value Reference Range Interpretation Comments UA Sq Epi (test code = UA Sq Occasional /LPF Epi) [facility] [id number] 23:55:00 Test Item Value Reference Range Interpretation Comments UA WBC (test code = no gt See_Comment [Automa fabiano message] The UA WBC) system which ge nerated this result transmit fabiano reference range : <=5. The reference range was not used to interpr et this result as aleks l/abnormal. [facility] [id number] 23:55:00 Test Item Value Reference Range Interpretation Comments UA RBC (test code = no gt See_Comment [Automa fabiano message] The UA RBC) system which ge nerated this result transmit fabiano reference range : <=2. The reference range was not used to interpr et this result as aleks l/abnormal. [facility] [id number] 23:55:00 Test Item Value Reference Range Interpretation Comments UA Bacteria (test code = UA Occasional /HPF Bacteria) [facility] [id number] 23:55:00 Test Item Value Reference Range Interpretation Comments UA Mucus (test code = UA Mucus) Few /LPF [facility] [id number] 23:55:00 Test Item Value Reference Range Interpretation Comments Source Strep (test code Urine *NA*(04/11/22 = Source Strep) 6:55 PM) [facility] [id number] 23:55:00 Test Item Value Reference Range Interpretation Comments Strep pneumoniae Ag Negative (04/11/22 (test code = Strep 6:55 PM) pneumoniae Ag) [facility] [id number] 23:55:00 Test Item Value Reference Range Interpretation Comments UA Color (test code = Yellow *NA*(04/11/22 UA Color) 6:55 PM) [facility] [id number] 23:55:00 Test Item Value Reference Range Interpretation Comments UA Turbidity (test code = Clear (04/11/22 6:55 UA Turbidity) PM) [facility] [id number] 23:55:00 Test Item Value Reference Range Interpretation Comments UA Spec Grav (test code = UA Spec 1.015 1 Grav) [facility] [id number] 23:55:00 Test Item Value Reference Range Interpretation Comments UA pH (test code = UA pH) 6.0 1 5.0-8.0 [facility] [id number] 23:55:00 Test Item Value Reference Range Interpretation Comments UA Protein (test code Negative (04/11/22 6:55 = UA Protein) PM) [facility] [id number] 23:55:00 Test Item Value Reference Range Interpretation Comments UA Glucose (test code Negative (04/11/22 6:55 = UA Glucose) PM) [facility] [id number] 23:55:00 Test Item Value Reference Range Interpretation Comments UA Ketones (test code Negative *NA*(04/11/22 = UA Ketones) 6:55 PM) [facility] [id number] 23:55:00 Test Item Value Reference Range Interpretation Comments UA Bili (test code = Negative *NA*(04/11/22 UA Bili) 6:55 PM) [facility] [id number] 23:55:00 Test Item Value Reference Range Interpretation Comments UA Blood (test code = Negative (04/11/22 6:55 UA Blood) PM) [facility] [id number] 23:55:00 Test Item Value Reference Range Interpretation Comments UA Urobilinogen (test code = UA 0.2 0.1-1.0 Urobilinogen) [facility] [id number] 23:55:00 Test Item Value Reference Range Interpretation Comments UA Nitrite (test code Negative (04/11/22 6:55 = UA Nitrite) PM) [facility] [id number] 23:55:00 Test Item Value Reference Range Interpretation Comments UA Leuk Est (test Negative (04/11/22 6:55 code = UA Leuk Est) PM) [facility] [id number] 23:55:00 Test Item Value Reference Range Interpretation Comments UA Sq Epi (test code = UA Sq Occasional /LPF Epi) [facility] AND [id number] 23:55:00 Test Item Value Reference Range Interpretation Comments UA WBC (test code = no gt See_Comment [Automa fabiano message] The UA WBC) system which ge nerated this result transmit fabiano reference range : <=5. The reference range was not used to interpr et this result as aleks l/abnormal. [facility] [id number] 23:55:00 Test Item Value Reference Range Interpretation Comments UA RBC (test code = no gt See_Comment [Automa fabiano message] The UA RBC) system which ge nerated this result transmit fabiano reference range : <=2. The reference range was not used to interpr et this result as aleks l/abnormal. [facility] [id number] 23:55:00 Test Item Value Reference Range Interpretation Comments UA Bacteria (test code = UA Occasional /HPF Bacteria) [facility] [id number] 23:55:00 Test Item Value Reference Range Interpretation Comments UA Mucus (test code = UA Mucus) Few /LPF [facility] [id number] 23:55:00 Test Item Value Reference Range Interpretation Comments UA Color (test code = Yellow *NA*(04/11/22 UA Color) 6:55 PM) [facility] [id number] 23:55:00 Test Item Value Reference Range Interpretation Comments UA Turbidity (test code = Clear (04/11/22 6:55 UA Turbidity) PM) [facility] [id number] 23:55:00 Test Item Value Reference Range Interpretation Comments UA Spec Grav (test code = UA Spec 1.015 1 Grav) [facility] [id number] 23:55:00 Test Item Value Reference Range Interpretation Comments UA pH (test code = UA pH) 6.0 1 5.0-8.0 [facility] [id number] 23:55:00 Test Item Value Reference Range Interpretation Comments UA Protein (test code Negative (04/11/22 6:55 = UA Protein) PM) [facility] [id number] 23:55:00 Test Item Value Reference Range Interpretation Comments UA Glucose (test code Negative (04/11/22 6:55 = UA Glucose) PM) [facility] [id number] 23:55:00 Test Item Value Reference Range Interpretation Comments UA Ketones (test code Negative *NA*(04/11/22 = UA Ketones) 6:55 PM) [facility] [id number] 23:55:00 Test Item Value Reference Range Interpretation Comments UA Bili (test code = Negative *NA*(04/11/22 UA Bili) 6:55 PM) [facility] [id number] 23:55:00 Test Item Value Reference Range Interpretation Comments UA Blood (test code = Negative (04/11/22 6:55 UA Blood) PM) [facility] [id number] 23:55:00 Test Item Value Reference Range Interpretation Comments UA Urobilinogen (test code = UA 0.2 0.1-1.0 Urobilinogen) [facility] [id number] 23:55:00 Test Item Value Reference Range Interpretation Comments UA Nitrite (test code Negative (04/11/22 6:55 = UA Nitrite) PM) [facility] [id number] 23:55:00 Test Item Value Reference Range Interpretation Comments UA Leuk Est (test Negative (04/11/22 6:55 code = UA Leuk Est) PM) [facility] [id number] 23:55:00 Test Item Value Reference Range Interpretation Comments UA Sq Epi (test code = UA Sq Occasional /LPF Epi) [facility] [id number] 23:55:00 Test Item Value Reference Range Interpretation Comments UA WBC (test code = no gt See_Comment [Automa fabiano message] The UA WBC) system which ge nerated this result transmit fabiano reference range : <=5. The reference range was not used to interpr et this result as aleks l/abnormal. [facility] [id number] 23:55:00 Test Item Value Reference Range Interpretation Comments UA RBC (test code = no gt See_Comment [Automa fabiano message] The UA RBC) system which ge nerated this result transmit fabiano reference range : <=2. The reference range was not used to interpr et this result as aleks l/abnormal. [facility] [id number] 23:55:00 Test Item Value Reference Range Interpretation Comments UA Bacteria (test code = UA Occasional /HPF Bacteria) [facility] [id number] 23:55:00 Test Item Value Reference Range Interpretation Comments UA Mucus (test code = UA Mucus) Few /LPF [facility] [id number] 23:55:00 Test Item Value Reference Range Interpretation Comments Source Strep (test code Urine *NA*(04/11/22 = Source Strep) 6:55 PM) [facility] [id number] 23:55:00 Test Item Value Reference Range Interpretation Comments Strep pneumoniae Ag Negative (04/11/22 (test code = Strep 6:55 PM) pneumoniae Ag) [facility] [id number] 23:55:00 Test Item Value Reference Range Interpretation Comments UA Color (test code = Yellow *NA*(04/11/22 UA Color) 6:55 PM) [facility] [id number] 23:55:00 Test Item Value Reference Range Interpretation Comments UA Turbidity (test code = Clear (04/11/22 6:55 UA Turbidity) PM) [facility] [id number] 23:55:00 Test Item Value Reference Range Interpretation Comments UA Spec Grav (test code = UA Spec 1.015 1 Grav) [facility] [id number] 23:55:00 Test Item Value Reference Range Interpretation Comments UA pH (test code = UA pH) 6.0 1 5.0-8.0 [facility] [id number] 23:55:00 Test Item Value Reference Range Interpretation Comments UA Protein (test code Negative (04/11/22 6:55 = UA Protein) PM) [facility] [id number] 23:55:00 Test Item Value Reference Range Interpretation Comments UA Glucose (test code Negative (04/11/22 6:55 = UA Glucose) PM) [facility] [id number] 23:55:00 Test Item Value Reference Range Interpretation Comments UA Ketones (test code Negative *NA*(04/11/22 = UA Ketones) 6:55 PM) [facility] [id number] 23:55:00 Test Item Value Reference Range Interpretation Comments UA Bili (test code = Negative *NA*(04/11/22 UA Bili) 6:55 PM) [facility] [id number] 23:55:00 Test Item Value Reference Range Interpretation Comments UA Blood (test code = Negative (04/11/22 6:55 UA Blood) PM) [facility] [id number] 23:55:00 Test Item Value Reference Range Interpretation Comments UA Urobilinogen (test code = UA 0.2 0.1-1.0 Urobilinogen) [facility] [id number] 23:55:00 Test Item Value Reference Range Interpretation Comments UA Nitrite (test code Negative (10/13/22 6:55 = UA Nitrite) PM) [facility] [id number] 23:55:00 Test Item Value Reference Range Interpretation Comments UA Leuk Est (test Negative (04/11/22 6:55 code = UA Leuk Est) PM) [facility] [id number] 23:55:00 Test Item Value Reference Range Interpretation Comments UA Sq Epi (test code = UA Sq Occasional /LPF Epi) [facility] [id number] 23:55:00 Test Item Value Reference Range Interpretation Comments UA WBC (test code = no gt See_Comment [Automa fabiano message] The UA WBC) system which ge nerated this result transmit fabiano reference range : <=5. The reference range was not used to interpr et this result as aleks l/abnormal. [facility] [id number] 23:55:00 Test Item Value Reference Range Interpretation Comments UA RBC (test code = no gt See_Comment [Automa fabiano message] The UA RBC) system which ge nerated this result transmit fabiano reference range : <=2. The reference range was not used to interpr et this result as aleks l/abnormal. [facility] [id number] 23:55:00 Test Item Value Reference Range Interpretation Comments UA Bacteria (test code = UA Occasional /HPF Bacteria) [facility] [id number] 23:55:00 Test Item Value Reference Range Interpretation Comments UA Mucus (test code = UA Mucus) Few /LPF [facility] [id number] 23:55:00 Test Item Value Reference Range Interpretation Comments UA Color (test code = Yellow *NA*(04/11/22 UA Color) 6:55 PM) [facility] [id number] 23:55:00 Test Item Value Reference Range Interpretation Comments UA Turbidity (test code = Clear (04/11/22 6:55 UA Turbidity) PM) [facility] [id number] 23:55:00 Test Item Value Reference Range Interpretation Comments UA Spec Grav (test code = UA Spec 1.015 1 Grav) [facility] [id number] 23:55:00 Test Item Value Reference Range Interpretation Comments UA pH (test code = UA pH) 6.0 1 5.0-8.0 [facility] [id number] 23:55:00 Test Item Value Reference Range Interpretation Comments UA Protein (test code Negative (04/11/22 6:55 = UA Protein) PM) [facility] [id number] 23:55:00 Test Item Value Reference Range Interpretation Comments UA Glucose (test code Negative (04/11/22 6:55 = UA Glucose) PM) [facility] [id number] 23:55:00 Test Item Value Reference Range Interpretation Comments UA Ketones (test code Negative *NA*(04/11/22 = UA Ketones) 6:55 PM) [facility] [id number] 23:55:00 Test Item Value Reference Range Interpretation Comments UA Bili (test code = Negative *NA*(04/11/22 UA Bili) 6:55 PM) [facility] [id number] 23:55:00 Test Item Value Reference Range Interpretation Comments UA Blood (test code = Negative (04/11/22 6:55 UA Blood) PM) [facility] [id number] 23:55:00 Test Item Value Reference Range Interpretation Comments UA Urobilinogen (test code = UA 0.2 0.1-1.0 Urobilinogen) [facility] [id number] 23:55:00 Test Item Value Reference Range Interpretation Comments UA Nitrite (test code Negative (04/11/22 6:55 = UA Nitrite) PM) [facility] [id number] 23:55:00 Test Item Value Reference Range Interpretation Comments UA Leuk Est (test Negative (04/11/22 6:55 code = UA Leuk Est) PM) [facility] [id number] 23:55:00 Test Item Value Reference Range Interpretation Comments UA Sq Epi (test code = UA Sq Occasional /LPF Epi) [facility] [id number] 23:55:00 Test Item Value Reference Range Interpretation Comments UA WBC (test code = no gt See_Comment [Automa fabiano message] The UA WBC) system which ge nerated this result transmit fabiano reference range : <=5. The reference range was not used to interpr et this result as aleks l/abnormal. [facility] [id number] 23:55:00 Test Item Value Reference Range Interpretation Comments UA RBC (test code = no gt See_Comment [Automa fabiano message] The UA RBC) system which ge nerated this result transmit fabiano reference range : <=2. The reference range was not used to interpr et this result as aleks l/abnormal. [facility] [id number] 23:55:00 Test Item Value Reference Range Interpretation Comments UA Bacteria (test code = UA Occasional /HPF Bacteria) [facility] [id number] 23:55:00 Test Item Value Reference Range Interpretation Comments UA Mucus (test code = UA Mucus) Few /LPF [facility] [id number] 23:55:00 Test Item Value Reference Range Interpretation Comments Source Strep (test code Urine *NA*(04/11/22 = Source Strep) 6:55 PM) [facility] [id number] 23:55:00 Test Item Value Reference Range Interpretation Comments Strep pneumoniae Ag Negative (04/11/22 (test code = Strep 6:55 PM) pneumoniae Ag) [facility] [id number] 23:55:00 Test Item Value Reference Range Interpretation Comments UA Color (test code = Yellow *NA*(04/11/22 UA Color) 6:55 PM) [facility] [id number] 23:55:00 Test Item Value Reference Range Interpretation Comments UA Turbidity (test code = Clear (04/11/22 6:55 UA Turbidity) PM) [facility] [id number] 23:55:00 Test Item Value Reference Range Interpretation Comments UA Spec Grav (test code = UA Spec 1.015 1 Grav) [facility] [id number] 23:55:00 Test Item Value Reference Range Interpretation Comments UA pH (test code = UA pH) 6.0 1 5.0-8.0 [facility] [id number] 23:55:00 Test Item Value Reference Range Interpretation Comments UA Protein (test code Negative (04/11/22 6:55 = UA Protein) PM) [facility] [id number] 23:55:00 Test Item Value Reference Range Interpretation Comments UA Glucose (test code Negative (04/11/22 6:55 = UA Glucose) PM) [facility] [id number] 23:55:00 Test Item Value Reference Range Interpretation Comments UA Ketones (test code Negative *NA*(04/11/22 = UA Ketones) 6:55 PM) [facility] [id number] 23:55:00 Test Item Value Reference Range Interpretation Comments UA Bili (test code = Negative *NA*(04/11/22 UA Bili) 6:55 PM) [facility] [id number] 23:55:00 Test Item Value Reference Range Interpretation Comments UA Blood (test code = Negative (04/11/22 6:55 UA Blood) PM) [facility] [id number] 23:55:00 Test Item Value Reference Range Interpretation Comments UA Urobilinogen (test code = UA 0.2 0.1-1.0 Urobilinogen) [facility] [id number] 23:55:00 Test Item Value Reference Range Interpretation Comments UA Nitrite (test code Negative (04/11/22 6:55 = UA Nitrite) PM) [facility] [id number] 23:55:00 Test Item Value Reference Range Interpretation Comments UA Leuk Est (test Negative (04/11/22 6:55 code = UA Leuk Est) PM) [facility] [id number] 23:55:00 Test Item Value Reference Range Interpretation Comments UA Sq Epi (test code = UA Sq Occasional /LPF Epi) [facility] [id number] 23:55:00 Test Item Value Reference Range Interpretation Comments UA WBC (test code = no gt See_Comment [Automa fabiano message] The UA WBC) system which ge nerated this result transmit fabiano reference range : <=5. The reference range was not used to interpr et this result as aleks l/abnormal. [facility] [id number] 23:55:00 Test Item Value Reference Range Interpretation Comments UA RBC (test code = no gt See_Comment [Automa fabiano message] The UA RBC) system which ge nerated this result transmit fabiano reference range : <=2. The reference range was not used to interpr et this result as aleks l/abnormal. [facility] [id number] 23:55:00 Test Item Value Reference Range Interpretation Comments UA Bacteria (test code = UA Occasional /HPF Bacteria) [facility] [id number] 23:55:00 Test Item Value Reference Range Interpretation Comments UA Mucus (test code = UA Mucus) Few /LPF [facility] [id number] 23:55:00 Test Item Value Reference Range Interpretation Comments UA Color (test code = Yellow *NA*(04/11/22 UA Color) 6:55 PM) [facility] [id number] 23:55:00 Test Item Value Reference Range Interpretation Comments UA Turbidity (test code = Clear (04/11/22 6:55 UA Turbidity) PM) [facility] [id number] 23:55:00 Test Item Value Reference Range Interpretation Comments UA Spec Grav (test code = UA Spec 1.015 1 Grav) [facility] [id number] 23:55:00 Test Item Value Reference Range Interpretation Comments UA pH (test code = UA pH) 6.0 1 5.0-8.0 [facility] [id number] 23:55:00 Test Item Value Reference Range Interpretation Comments UA Protein (test code Negative (04/11/22 6:55 = UA Protein) PM) [facility] [id number] 23:55:00 Test Item Value Reference Range Interpretation Comments UA Glucose (test code Negative (04/11/22 6:55 = UA Glucose) PM) [facility] [id number] 23:55:00 Test Item Value Reference Range Interpretation Comments UA Ketones (test code Negative *NA*(04/11/22 = UA Ketones) 6:55 PM) [facility] [id number] 23:55:00 Test Item Value Reference Range Interpretation Comments UA Bili (test code = Negative *NA*(04/11/22 UA Bili) 6:55 PM) [facility] [id number] 23:55:00 Test Item Value Reference Range Interpretation Comments UA Blood (test code = Negative (04/11/22 6:55 UA Blood) PM) [facility] [id number] 23:55:00 Test Item Value Reference Range Interpretation Comments UA Urobilinogen (test code = UA 0.2 0.1-1.0 Urobilinogen) [facility] [id number] 23:55:00 Test Item Value Reference Range Interpretation Comments UA Nitrite (test code Negative (04/11/22 6:55 = UA Nitrite) PM) [facility] [id number] 23:55:00 Test Item Value Reference Range Interpretation Comments UA Leuk Est (test Negative (04/11/22 6:55 code = UA Leuk Est) PM) [facility] [id number] 23:55:00 Test Item Value Reference Range Interpretation Comments UA Sq Epi (test code = UA Sq Occasional /LPF Epi) [facility] [id number] 23:55:00 Test Item Value Reference Range Interpretation Comments UA WBC (test code = no gt See_Comment [Automa fabiano message] The UA WBC) system which ge nerated this result transmit fabiano reference range : <=5. The reference range was not used to interpr et this result as aleks l/abnormal. [facility] [id number] 23:55:00 Test Item Value Reference Range Interpretation Comments UA RBC (test code = no gt See_Comment [Automa fabiano message] The UA RBC) system which ge nerated this result transmit fabiano reference range : <=2. The reference range was not used to interpr et this result as aleks l/abnormal. [facility] [id number] 23:55:00 Test Item Value Reference Range Interpretation Comments UA Bacteria (test code = UA Occasional /HPF Bacteria) [facility] [id number] 23:55:00 Test Item Value Reference Range Interpretation Comments UA Mucus (test code = UA Mucus) Few /LPF [facility] [id number] 23:55:00 Test Item Value Reference Range Interpretation Comments Source Strep (test code Urine *NA*(04/11/22 = Source Strep) 6:55 PM) [facility] [id number] 23:55:00 Test Item Value Reference Range Interpretation Comments Strep pneumoniae Ag Negative (04/11/22 (test code = Strep 6:55 PM) pneumoniae Ag) [facility] [id number] 23:55:00 Test Item Value Reference Range Interpretation Comments UA Color (test code = Yellow *NA*(04/11/22 UA Color) 6:55 PM) [facility] [id number] 23:55:00 Test Item Value Reference Range Interpretation Comments UA Turbidity (test code = Clear (04/11/22 6:55 UA Turbidity) PM) [facility] [id number] 23:55:00 Test Item Value Reference Range Interpretation Comments UA Spec Grav (test code = UA Spec 1.015 1 Grav) [facility] [id number] 23:55:00 Test Item Value Reference Range Interpretation Comments UA pH (test code = UA pH) 6.0 1 5.0-8.0 [facility] [id number] 23:55:00 Test Item Value Reference Range Interpretation Comments UA Protein (test code Negative (04/11/22 6:55 = UA Protein) PM) [facility] [id number] 23:55:00 Test Item Value Reference Range Interpretation Comments UA Glucose (test code Negative (04/11/22 6:55 = UA Glucose) PM) [facility] [id number] 23:55:00 Test Item Value Reference Range Interpretation Comments UA Ketones (test code Negative *NA*(04/11/22 = UA Ketones) 6:55 PM) [facility] [id number] 23:55:00 Test Item Value Reference Range Interpretation Comments UA Bili (test code = Negative *NA*(04/11/22 UA Bili) 6:55 PM) [facility] [id number] 23:55:00 Test Item Value Reference Range Interpretation Comments UA Blood (test code = Negative (04/11/22 6:55 UA Blood) PM) [facility] [id number] 23:55:00 Test Item Value Reference Range Interpretation Comments UA Urobilinogen (test code = UA 0.2 0.1-1.0 Urobilinogen) [facility] [id number] 23:55:00 Test Item Value Reference Range Interpretation Comments UA Nitrite (test code Negative (04/11/22 6:55 = UA Nitrite) PM) [facility] [id number] 23:55:00 Test Item Value Reference Range Interpretation Comments UA Leuk Est (test Negative (04/11/22 6:55 code = UA Leuk Est) PM) [facility] [id number] 23:55:00 Test Item Value Reference Range Interpretation Comments UA Sq Epi (test code = UA Sq Occasional /LPF Epi) [facility] [id number] 23:55:00 Test Item Value Reference Range Interpretation Comments UA WBC (test code = no gt See_Comment [Automa fabiano message] The UA WBC) system which ge nerated this result transmit fabiano reference range : <=5. The reference range was not used to interpr et this result as aleks l/abnormal. [facility] [id number] 23:55:00 Test Item Value Reference Range Interpretation Comments UA RBC (test code = no gt See_Comment [Automa fabiano message] The UA RBC) system which ge nerated this result transmit fabiano reference range : <=2. The reference range was not used to interpr et this result as aleks l/abnormal. [facility] [id number] 23:55:00 Test Item Value Reference Range Interpretation Comments UA Bacteria (test code = UA Occasional /HPF Bacteria) [facility] [id number] 23:55:00 Test Item Value Reference Range Interpretation Comments UA Mucus (test code = UA Mucus) Few /LPF [facility] [id number] 23:55:00 Test Item Value Reference Range Interpretation Comments UA Color (test code = Yellow *NA*(04/11/22 UA Color) 6:55 PM) [facility] [id number] 23:55:00 Test Item Value Reference Range Interpretation Comments UA Turbidity (test code = Clear (04/11/22 6:55 UA Turbidity) PM) [facility] [id number] 23:55:00 Test Item Value Reference Range Interpretation Comments UA Spec Grav (test code = UA Spec 1.015 1 Grav) [facility] [id number] 23:55:00 Test Item Value Reference Range Interpretation Comments UA pH (test code = UA pH) 6.0 1 5.0-8.0 [facility] [id number] 23:55:00 Test Item Value Reference Range Interpretation Comments UA Protein (test code Negative (04/11/22 6:55 = UA Protein) PM) [facility] [id number] 23:55:00 Test Item Value Reference Range Interpretation Comments UA Glucose (test code Negative (04/11/22 6:55 = UA Glucose) PM) [facility] [id number] 23:55:00 Test Item Value Reference Range Interpretation Comments UA Ketones (test code Negative *NA*(04/11/22 = UA Ketones) 6:55 PM) [facility] [id number] 23:55:00 Test Item Value Reference Range Interpretation Comments UA Bili (test code = Negative *NA*(04/11/22 UA Bili) 6:55 PM) [facility] [id number] 23:55:00 Test Item Value Reference Range Interpretation Comments UA Blood (test code = Negative (04/11/22 6:55 UA Blood) PM) [facility] [id number] 23:55:00 Test Item Value Reference Range Interpretation Comments UA Urobilinogen (test code = UA 0.2 0.1-1.0 Urobilinogen) [facility] [id number] 23:55:00 Test Item Value Reference Range Interpretation Comments UA Nitrite (test code Negative (04/11/22 6:55 = UA Nitrite) PM) [facility] [id number] 23:55:00 Test Item Value Reference Range Interpretation Comments UA Leuk Est (test Negative (04/11/22 6:55 code = UA Leuk Est) PM) [facility] [id number] 23:55:00 Test Item Value Reference Range Interpretation Comments UA Sq Epi (test code = UA Sq Occasional /LPF Epi) [facility] [id number] 23:55:00 Test Item Value Reference Range Interpretation Comments UA WBC (test code = no gt See_Comment [Automa fabiano message] The UA WBC) system which ge nerated this result transmit fabiano reference range : <=5. The reference range was not used to interpr et this result as aleks l/abnormal. [facility] [id number] 23:55:00 Test Item Value Reference Range Interpretation Comments UA RBC (test code = no gt See_Comment [Automa fabiano message] The UA RBC) system which ge nerated this result transmit fabiano reference range : <=2. The reference range was not used to interpr et this result as aleks l/abnormal. [facility] [id number] 23:55:00 Test Item Value Reference Range Interpretation Comments UA Bacteria (test code = UA Occasional /HPF Bacteria) [facility] [id number] 23:55:00 Test Item Value Reference Range Interpretation Comments UA Mucus (test code = UA Mucus) Few /LPF [facility] [id number] 23:55:00 Test Item Value Reference Range Interpretation Comments Source Strep (test code Urine *NA*(04/11/22 = Source Strep) 6:55 PM) [facility] [id number] 23:55:00 Test Item Value Reference Range Interpretation Comments Strep pneumoniae Ag Negative (04/11/22 (test code = Strep 6:55 PM) pneumoniae Ag) [facility] [id number] 23:55:00 Test Item Value Reference Range Interpretation Comments UA Color (test code = Yellow *NA*(04/11/22 UA Color) 6:55 PM) [facility] [id number] 23:55:00 Test Item Value Reference Range Interpretation Comments UA Turbidity (test code = Clear (04/11/22 6:55 UA Turbidity) PM) [facility] [id number] 23:55:00 Test Item Value Reference Range Interpretation Comments UA Spec Grav (test code = UA Spec 1.015 1 Grav) [facility] [id number] 23:55:00 Test Item Value Reference Range Interpretation Comments UA pH (test code = UA pH) 6.0 1 5.0-8.0 [facility] [id number] 23:55:00 Test Item Value Reference Range Interpretation Comments UA Protein (test code Negative (04/11/22 6:55 = UA Protein) PM) [facility] [id number] 23:55:00 Test Item Value Reference Range Interpretation Comments UA Glucose (test code Negative (04/11/22 6:55 = UA Glucose) PM) [facility] [id number] 23:55:00 Test Item Value Reference Range Interpretation Comments UA Ketones (test code Negative *NA*(04/11/22 = UA Ketones) 6:55 PM) [facility] [id number] 23:55:00 Test Item Value Reference Range Interpretation Comments UA Bili (test code = Negative *NA*(04/11/22 UA Bili) 6:55 PM) [facility] [id number] 23:55:00 Test Item Value Reference Range Interpretation Comments UA Blood (test code = Negative (04/11/22 6:55 UA Blood) PM) [facility] [id number] 23:55:00 Test Item Value Reference Range Interpretation Comments UA Urobilinogen (test code = UA 0.2 0.1-1.0 Urobilinogen) [facility] [id number] 23:55:00 Test Item Value Reference Range Interpretation Comments UA Nitrite (test code Negative (04/11/22 6:55 = UA Nitrite) PM) [facility] [id number] 23:55:00 Test Item Value Reference Range Interpretation Comments UA Leuk Est (test Negative (04/11/22 6:55 code = UA Leuk Est) PM) [facility] [id number] 23:55:00 Test Item Value Reference Range Interpretation Comments UA Sq Epi (test code = UA Sq Occasional /LPF Epi) [facility] [id number] 23:55:00 Test Item Value Reference Range Interpretation Comments UA WBC (test code = no gt See_Comment [Automa fabiano message] The UA WBC) system which ge nerated this result transmit fabiano reference range : <=5. The reference range was not used to interpr et this result as aleks l/abnormal. [facility] [id number] 23:55:00 Test Item Value Reference Range Interpretation Comments UA RBC (test code = no gt See_Comment [Automa fabiano message] The UA RBC) system which ge nerated this result transmit fabiano reference range : <=2. The reference range was not used to interpr et this result as aleks l/abnormal. [facility] [id number] 23:55:00 Test Item Value Reference Range Interpretation Comments UA Bacteria (test code = UA Occasional /HPF Bacteria) [facility] [id number] 23:55:00 Test Item Value Reference Range Interpretation Comments UA Mucus (test code = UA Mucus) Few /LPF [facility] [id number] 23:55:00 Test Item Value Reference Range Interpretation Comments UA Color (test code = Yellow *NA*(04/11/22 UA Color) 6:55 PM) [facility] [id number] 23:55:00 Test Item Value Reference Range Interpretation Comments UA Turbidity (test code = Clear (04/11/22 6:55 UA Turbidity) PM) [facility] [id number] 23:55:00 Test Item Value Reference Range Interpretation Comments UA Spec Grav (test code = UA Spec 1.015 1 Grav) [facility] [id number] 23:55:00 Test Item Value Reference Range Interpretation Comments UA pH (test code = UA pH) 6.0 1 5.0-8.0 [facility] [id number] 23:55:00 Test Item Value Reference Range Interpretation Comments UA Protein (test code Negative (04/11/22 6:55 = UA Protein) PM) [facility] [id number] 23:55:00 Test Item Value Reference Range Interpretation Comments UA Glucose (test code Negative (04/11/22 6:55 = UA Glucose) PM) [facility] [id number] 23:55:00 Test Item Value Reference Range Interpretation Comments UA Ketones (test code Negative *NA*(04/11/22 = UA Ketones) 6:55 PM) [facility] [id number] 23:55:00 Test Item Value Reference Range Interpretation Comments UA Bili (test code = Negative *NA*(04/11/22 UA Bili) 6:55 PM) [facility] [id number] 23:55:00 Test Item Value Reference Range Interpretation Comments UA Blood (test code = Negative (04/11/22 6:55 UA Blood) PM) [facility] [id number] 23:55:00 Test Item Value Reference Range Interpretation Comments UA Urobilinogen (test code = UA 0.2 0.1-1.0 Urobilinogen) [facility] [id number] 23:55:00 Test Item Value Reference Range Interpretation Comments UA Nitrite (test code Negative (04/11/22 6:55 = UA Nitrite) PM) [facility] [id number] 23:55:00 Test Item Value Reference Range Interpretation Comments UA Leuk Est (test Negative (04/11/22 6:55 code = UA Leuk Est) PM) [facility] [id number] 23:55:00 Test Item Value Reference Range Interpretation Comments UA Sq Epi (test code = UA Sq Occasional /LPF Epi) [facility] [id number] 23:55:00 Test Item Value Reference Range Interpretation Comments UA WBC (test code = no gt See_Comment [Automa fabiano message] The UA WBC) system which ge nerated this result transmit fabiano reference range : <=5. The reference range was not used to interpr et this result as aleks l/abnormal. [facility] [id number] 23:55:00 Test Item Value Reference Range Interpretation Comments UA RBC (test code = no gt See_Comment [Automa fabiano message] The UA RBC) system which ge nerated this result transmit fabiano reference range : <=2. The reference range was not used to interpr et this result as aleks l/abnormal. [facility] [id number] 23:55:00 Test Item Value Reference Range Interpretation Comments UA Bacteria (test code = UA Occasional /HPF Bacteria) [facility] [id number] 23:55:00 Test Item Value Reference Range Interpretation Comments UA Mucus (test code = UA Mucus) Few /LPF [facility] [id number] 23:55:00 Test Item Value Reference Range Interpretation Comments Source Strep (test code Urine *NA*(04/11/22 = Source Strep) 6:55 PM) [facility] [id number] 23:55:00 Test Item Value Reference Range Interpretation Comments Strep pneumoniae Ag Negative (04/11/22 (test code = Strep 6:55 PM) pneumoniae Ag) [facility] [id number] 23:55:00 Test Item Value Reference Range Interpretation Comments UA Color (test code = Yellow *NA*(04/11/22 UA Color) 6:55 PM) [facility] [id number] 23:55:00 Test Item Value Reference Range Interpretation Comments UA Turbidity (test code = Clear (04/11/22 6:55 UA Turbidity) PM) [facility] [id number] 23:55:00 Test Item Value Reference Range Interpretation Comments UA Spec Grav (test code = UA Spec 1.015 1 Grav) [facility] [id number] 23:55:00 Test Item Value Reference Range Interpretation Comments UA pH (test code = UA pH) 6.0 1 5.0-8.0 [facility] [id number] 23:55:00 Test Item Value Reference Range Interpretation Comments UA Protein (test code Negative (04/11/22 6:55 = UA Protein) PM) [facility] [id number] 23:55:00 Test Item Value Reference Range Interpretation Comments UA Glucose (test code Negative (04/11/22 6:55 = UA Glucose) PM) [facility] [id number] 23:55:00 Test Item Value Reference Range Interpretation Comments UA Ketones (test code Negative *NA*(04/11/22 = UA Ketones) 6:55 PM) [facility] [id number] 23:55:00 Test Item Value Reference Range Interpretation Comments UA Bili (test code = Negative *NA*(04/11/22 UA Bili) 6:55 PM) [facility] [id number] 23:55:00 Test Item Value Reference Range Interpretation Comments UA Blood (test code = Negative (04/11/22 6:55 UA Blood) PM) [facility] [id number] 23:55:00 Test Item Value Reference Range Interpretation Comments UA Urobilinogen (test code = UA 0.2 0.1-1.0 Urobilinogen) [facility] [id number] 23:55:00 Test Item Value Reference Range Interpretation Comments UA Nitrite (test code Negative (04/11/22 6:55 = UA Nitrite) PM) [facility] [id number] 23:55:00 Test Item Value Reference Range Interpretation Comments UA Leuk Est (test Negative (04/11/22 6:55 code = UA Leuk Est) PM) [facility] [id number] 23:55:00 Test Item Value Reference Range Interpretation Comments UA Sq Epi (test code = UA Sq Occasional /LPF Epi) [facility] [id number] 23:55:00 Test Item Value Reference Range Interpretation Comments UA WBC (test code = no gt See_Comment [Automa fabiano message] The UA WBC) system which ge nerated this result transmit fabiano reference range : <=5. The reference range was not used to interpr et this result as aleks l/abnormal. [facility] [id number] 23:55:00 Test Item Value Reference Range Interpretation Comments UA RBC (test code = no gt See_Comment [Automa fabiano message] The UA RBC) system which ge nerated this result transmit fabiano reference range : <=2. The reference range was not used to interpr et this result as aleks l/abnormal. [facility] [id number] 23:55:00 Test Item Value Reference Range Interpretation Comments UA Bacteria (test code = UA Occasional /HPF Bacteria) [facility] [id number] 23:55:00 Test Item Value Reference Range Interpretation Comments UA Mucus (test code = UA Mucus) Few /LPF [facility] [id number] 23:55:00 Test Item Value Reference Range Interpretation Comments UA Color (test code = Yellow *NA*(04/11/22 UA Color) 6:55 PM) [facility] [id number] 23:55:00 Test Item Value Reference Range Interpretation Comments UA Turbidity (test code = Clear (04/11/22 6:55 UA Turbidity) PM) [facility] [id number] 23:55:00 Test Item Value Reference Range Interpretation Comments UA Spec Grav (test code = UA Spec 1.015 1 Grav) [facility] [id number] 23:55:00 Test Item Value Reference Range Interpretation Comments UA pH (test code = UA pH) 6.0 1 5.0-8.0 [facility] [id number] 23:55:00 Test Item Value Reference Range Interpretation Comments UA Protein (test code Negative (04/11/22 6:55 = UA Protein) PM) [facility] [id number] 23:55:00 Test Item Value Reference Range Interpretation Comments Source Strep (test code Urine *NA*(04/11/22 = Source Strep) 6:55 PM) [facility] [id number] 23:55:00 Test Item Value Reference Range Interpretation Comments Strep pneumoniae Ag Negative (04/11/22 (test code = Strep 6:55 PM) pneumoniae Ag) [facility] [id number] 23:55:00 Test Item Value Reference Range Interpretation Comments UA Color (test code = Yellow *NA*(04/11/22 UA Color) 6:55 PM) [facility] [id number] 23:55:00 Test Item Value Reference Range Interpretation Comments UA Turbidity (test code = Clear (04/11/22 6:55 UA Turbidity) PM) [facility] [id number] 23:55:00 Test Item Value Reference Range Interpretation Comments UA Spec Grav (test code = UA Spec 1.015 1 Grav) [facility] [id number] 23:55:00 Test Item Value Reference Range Interpretation Comments UA pH (test code = UA pH) 6.0 1 5.0-8.0 [facility] [id number] 23:55:00 Test Item Value Reference Range Interpretation Comments UA Glucose (test code Negative (04/11/22 6:55 = UA Glucose) PM) [facility] [id number] 23:55:00 Test Item Value Reference Range Interpretation Comments UA Protein (test code Negative (04/11/22 6:55 = UA Protein) PM) [facility] [id number] 23:55:00 Test Item Value Reference Range Interpretation Comments UA Glucose (test code Negative (04/11/22 6:55 = UA Glucose) PM) [facility] [id number] 23:55:00 Test Item Value Reference Range Interpretation Comments UA Ketones (test code Negative *NA*(04/11/22 = UA Ketones) 6:55 PM) [facility] [id number] 23:55:00 Test Item Value Reference Range Interpretation Comments UA Bili (test code = Negative *NA*(04/11/22 UA Bili) 6:55 PM) [facility] [id number] 23:55:00 Test Item Value Reference Range Interpretation Comments UA Blood (test code = Negative (04/11/22 6:55 UA Blood) PM) [facility] [id number] 23:55:00 Test Item Value Reference Range Interpretation Comments UA Urobilinogen (test code = UA 0.2 0.1-1.0 Urobilinogen) [facility] [id number] 23:55:00 Test Item Value Reference Range Interpretation Comments UA Nitrite (test code Negative (04/11/22 6:55 = UA Nitrite) PM) [facility] [id number] 23:55:00 Test Item Value Reference Range Interpretation Comments UA Leuk Est (test Negative (04/11/22 6:55 code = UA Leuk Est) PM) [facility] [id number] 23:55:00 Test Item Value Reference Range Interpretation Comments UA Sq Epi (test code = UA Sq Occasional /LPF Epi) [facility] [id number] 23:55:00 Test Item Value Reference Range Interpretation Comments UA WBC (test code = no gt See_Comment [Automa fabiano message] The UA WBC) system which ge nerated this result transmit fabiano reference range : <=5. The reference range was not used to interpr et this result as aleks l/abnormal. [facility] [id number] 23:55:00 Test Item Value Reference Range Interpretation Comments UA Ketones (test code Negative *NA*(04/11/22 = UA Ketones) 6:55 PM) [facility] [id number] 23:55:00 Test Item Value Reference Range Interpretation Comments UA RBC (test code = no gt See_Comment [Automa fabiano message] The UA RBC) system which ge nerated this result transmit fabiano reference range : <=2. The reference range was not used to interpr et this result as aleks l/abnormal. [facility] [id number] 23:55:00 Test Item Value Reference Range Interpretation Comments UA Bacteria (test code = UA Occasional /HPF Bacteria) [facility] [id number] 23:55:00 Test Item Value Reference Range Interpretation Comments UA Mucus (test code = UA Mucus) Few /LPF [facility] [id number] 23:55:00 Test Item Value Reference Range Interpretation Comments UA Color (test code = Yellow *NA*(04/11/22 UA Color) 6:55 PM) [facility] [id number] 23:55:00 Test Item Value Reference Range Interpretation Comments UA Turbidity (test code = Clear (04/11/22 6:55 UA Turbidity) PM) [facility] [id number] 23:55:00 Test Item Value Reference Range Interpretation Comments UA Spec Grav (test code = UA Spec 1.015 1 Grav) [facility] [id number] 23:55:00 Test Item Value Reference Range Interpretation Comments UA pH (test code = UA pH) 6.0 1 5.0-8.0 [facility] [id number] 23:55:00 Test Item Value Reference Range Interpretation Comments UA Protein (test code Negative (04/11/22 6:55 = UA Protein) PM) [facility] [id number] 23:55:00 Test Item Value Reference Range Interpretation Comments UA Glucose (test code Negative (04/11/22 6:55 = UA Glucose) PM) [facility] [id number] 23:55:00 Test Item Value Reference Range Interpretation Comments UA Ketones (test code Negative *NA*(04/11/22 = UA Ketones) 6:55 PM) [facility] [id number] 23:55:00 Test Item Value Reference Range Interpretation Comments UA Bili (test code = Negative *NA*(04/11/22 UA Bili) 6:55 PM) [facility] [id number] 23:55:00 Test Item Value Reference Range Interpretation Comments UA Bili (test code = Negative *NA*(04/11/22 UA Bili) 6:55 PM) [facility] [id number] 23:55:00 Test Item Value Reference Range Interpretation Comments UA Blood (test code = Negative (04/11/22 6:55 UA Blood) PM) [facility] [id number] 23:55:00 Test Item Value Reference Range Interpretation Comments UA Urobilinogen (test code = UA 0.2 0.1-1.0 Urobilinogen) [facility] [id number] 23:55:00 Test Item Value Reference Range Interpretation Comments UA Nitrite (test code Negative (04/11/22 6:55 = UA Nitrite) PM) [facility] [id number] 23:55:00 Test Item Value Reference Range Interpretation Comments UA Leuk Est (test Negative (04/11/22 6:55 code = UA Leuk Est) PM) [facility] [id number] 23:55:00 Test Item Value Reference Range Interpretation Comments UA Sq Epi (test code = UA Sq Occasional /LPF Epi) [facility] [id number] 23:55:00 Test Item Value Reference Range Interpretation Comments UA WBC (test code = no gt See_Comment [Automa fabiano message] The UA WBC) system which ge nerated this result transmit fabiano reference range : <=5. The reference range was not used to interpr et this result as aleks l/abnormal. [facility] [id number] 23:55:00 Test Item Value Reference Range Interpretation Comments UA RBC (test code = no gt See_Comment [Automa fabiano message] The UA RBC) system which ge nerated this result transmit fabiano reference range : <=2. The reference range was not used to interpr et this result as aleks l/abnormal. [facility] [id number] 23:55:00 Test Item Value Reference Range Interpretation Comments UA Bacteria (test code = UA Occasional /HPF Bacteria) [facility] [id number] 23:55:00 Test Item Value Reference Range Interpretation Comments UA Mucus (test code = UA Mucus) Few /LPF [facility] [id number] 23:55:00 Test Item Value Reference Range Interpretation Comments UA Blood (test code = Negative (04/11/22 6:55 UA Blood) PM) [facility] [id number] 23:55:00 Test Item Value Reference Range Interpretation Comments UA Urobilinogen (test code = UA 0.2 0.1-1.0 Urobilinogen) [facility] [id number] 23:55:00 Test Item Value Reference Range Interpretation Comments UA Nitrite (test code Negative (04/11/22 6:55 = UA Nitrite) PM) [facility] [id number] 23:55:00 Test Item Value Reference Range Interpretation Comments UA Leuk Est (test Negative (04/11/22 6:55 code = UA Leuk Est) PM) [facility] [id number] 23:55:00 Test Item Value Reference Range Interpretation Comments UA Sq Epi (test code = UA Sq Occasional /LPF Epi) [facility] [id number] 23:55:00 Test Item Value Reference Range Interpretation Comments UA WBC (test code = no gt See_Comment [Automa fabiano message] The UA WBC) system which ge nerated this result transmit fabiano reference range : <=5. The reference range was not used to interpr et this result as aleks l/abnormal. [facility] [id number] 23:55:00 Test Item Value Reference Range Interpretation Comments UA RBC (test code = no gt See_Comment [Automa fabiano message] The UA RBC) system which ge nerated this result transmit fabiano reference range : <=2. The reference range was not used to interpr et this result as aleks l/abnormal. [facility] [id number] 23:55:00 Test Item Value Reference Range Interpretation Comments UA Bacteria (test code = UA Occasional /HPF Bacteria) [facility] [id number] 23:55:00 Test Item Value Reference Range Interpretation Comments UA Mucus (test code = UA Mucus) Few /LPF [facility] [id number] 23:55:00 Test Item Value Reference Range Interpretation Comments Source Strep (test code Urine *NA*(04/11/22 = Source Strep) 6:55 PM) [facility] [id number] 23:55:00 Test Item Value Reference Range Interpretation Comments Strep pneumoniae Ag Negative (04/11/22 (test code = Strep 6:55 PM) pneumoniae Ag) [facility] [id number] 23:55:00 Test Item Value Reference Range Interpretation Comments UA Color (test code = Yellow *NA*(04/11/22 UA Color) 6:55 PM) [facility] [id number] 23:55:00 Test Item Value Reference Range Interpretation Comments UA Turbidity (test code = Clear (04/11/22 6:55 UA Turbidity) PM) [facility] [id number] 23:55:00 Test Item Value Reference Range Interpretation Comments UA Spec Grav (test code = UA Spec 1.015 1 Grav) [facility] [id number] 23:55:00 Test Item Value Reference Range Interpretation Comments UA pH (test code = UA pH) 6.0 1 5.0-8.0 [facility] [id number] 23:55:00 Test Item Value Reference Range Interpretation Comments UA Protein (test code Negative (04/11/22 6:55 = UA Protein) PM) [facility] [id number] 23:55:00 Test Item Value Reference Range Interpretation Comments UA Glucose (test code Negative (04/11/22 6:55 = UA Glucose) PM) [facility] [id number] 23:55:00 Test Item Value Reference Range Interpretation Comments UA Ketones (test code Negative *NA*(04/11/22 = UA Ketones) 6:55 PM) [facility] [id number] 23:55:00 Test Item Value Reference Range Interpretation Comments UA Bili (test code = Negative *NA*(04/11/22 UA Bili) 6:55 PM) [facility] [id number] 23:55:00 Test Item Value Reference Range Interpretation Comments UA Blood (test code = Negative (04/11/22 6:55 UA Blood) PM) [facility] [id number] 23:55:00 Test Item Value Reference Range Interpretation Comments UA Urobilinogen (test code = UA 0.2 0.1-1.0 Urobilinogen) [facility] [id number] 23:55:00 Test Item Value Reference Range Interpretation Comments UA Nitrite (test code Negative (04/11/22 6:55 = UA Nitrite) PM) [facility] [id number] 23:55:00 Test Item Value Reference Range Interpretation Comments UA Leuk Est (test Negative (04/11/22 6:55 code = UA Leuk Est) PM) [facility] [id number] 23:55:00 Test Item Value Reference Range Interpretation Comments UA Sq Epi (test code = UA Sq Occasional /LPF Epi) [facility] [id number] 23:55:00 Test Item Value Reference Range Interpretation Comments UA WBC (test code = no gt See_Comment [Automa fabiano message] The UA WBC) system which ge nerated this result transmit fabiano reference range : <=5. The reference range was not used to interpr et this result as aleks l/abnormal. [facility] [id number] 23:55:00 Test Item Value Reference Range Interpretation Comments UA RBC (test code = no gt See_Comment [Automa fabiano message] The UA RBC) system which ge nerated this result transmit fabiano reference range : <=2. The reference range was not used to interpr et this result as aleks l/abnormal. [facility] [id number] 23:55:00 Test Item Value Reference Range Interpretation Comments UA Bacteria (test code = UA Occasional /HPF Bacteria) [facility] [id number] 23:55:00 Test Item Value Reference Range Interpretation Comments UA Mucus (test code = UA Mucus) Few /LPF [facility] [id number] 23:55:00 Test Item Value Reference Range Interpretation Comments UA Color (test code = Yellow *NA*(04/11/22 UA Color) 6:55 PM) [facility] [id number] 23:55:00 Test Item Value Reference Range Interpretation Comments UA Turbidity (test code = Clear (04/11/22 6:55 UA Turbidity) PM) [facility] [id number] 23:55:00 Test Item Value Reference Range Interpretation Comments UA Spec Grav (test code = UA Spec 1.015 1 Grav) [facility] [id number] 23:55:00 Test Item Value Reference Range Interpretation Comments UA pH (test code = UA pH) 6.0 1 5.0-8.0 [facility] [id number] 23:55:00 Test Item Value Reference Range Interpretation Comments UA Protein (test code Negative (04/11/22 6:55 = UA Protein) PM) [facility] [id number] 23:55:00 Test Item Value Reference Range Interpretation Comments UA Glucose (test code Negative (04/11/22 6:55 = UA Glucose) PM) [facility] [id number] 23:55:00 Test Item Value Reference Range Interpretation Comments UA Ketones (test code Negative *NA*(04/11/22 = UA Ketones) 6:55 PM) [facility] [id number] 23:55:00 Test Item Value Reference Range Interpretation Comments UA Bili (test code = Negative *NA*(04/11/22 UA Bili) 6:55 PM) [facility] [id number] 23:55:00 Test Item Value Reference Range Interpretation Comments UA Blood (test code = Negative (04/11/22 6:55 UA Blood) PM) [facility] [id number] 23:55:00 Test Item Value Reference Range Interpretation Comments UA Urobilinogen (test code = UA 0.2 0.1-1.0 Urobilinogen) [facility] [id number] 23:55:00 Test Item Value Reference Range Interpretation Comments UA Nitrite (test code Negative (04/11/22 6:55 = UA Nitrite) PM) [facility] [id number] 23:55:00 Test Item Value Reference Range Interpretation Comments UA Leuk Est (test Negative (04/11/22 6:55 code = UA Leuk Est) PM) [facility] [id number] 23:55:00 Test Item Value Reference Range Interpretation Comments UA Sq Epi (test code = UA Sq Occasional /LPF Epi) [facility] [id number] 23:55:00 Test Item Value Reference Range Interpretation Comments UA WBC (test code = no gt See_Comment [Automa fabiano message] The UA WBC) system which ge nerated this result transmit fabiano reference range : <=5. The reference range was not used to interpr et this result as aleks l/abnormal. [facility] [id number] 23:55:00 Test Item Value Reference Range Interpretation Comments UA RBC (test code = no gt See_Comment [Automa fabiano message] The UA RBC) system which ge nerated this result transmit fabiano reference range : <=2. The reference range was not used to interpr et this result as aleks l/abnormal. [facility] [id number] 23:55:00 Test Item Value Reference Range Interpretation Comments UA Bacteria (test code = UA Occasional /HPF Bacteria) [facility] [id number] 23:55:00 Test Item Value Reference Range Interpretation Comments UA Mucus (test code = UA Mucus) Few /LPF [facility] [id number] 23:55:00 Test Item Value Reference Range Interpretation Comments Source Strep (test code Urine *NA*(04/11/22 = Source Strep) 6:55 PM) [facility] [id number] 23:55:00 Test Item Value Reference Range Interpretation Comments Strep pneumoniae Ag Negative (04/11/22 (test code = Strep 6:55 PM) pneumoniae Ag) [facility] [id number] 23:55:00 Test Item Value Reference Range Interpretation Comments UA Color (test code = Yellow *NA*(04/11/22 UA Color) 6:55 PM) [facility] [id number] 23:55:00 Test Item Value Reference Range Interpretation Comments UA Turbidity (test code = Clear (04/11/22 6:55 UA Turbidity) PM) [facility] [id number] 23:55:00 Test Item Value Reference Range Interpretation Comments UA Spec Grav (test code = UA Spec 1.015 1 Grav) [facility] [id number] 23:55:00 Test Item Value Reference Range Interpretation Comments UA pH (test code = UA pH) 6.0 1 5.0-8.0 [facility] [id number] 23:55:00 Test Item Value Reference Range Interpretation Comments UA Protein (test code Negative (04/11/22 6:55 = UA Protein) PM) [facility] [id number] 23:55:00 Test Item Value Reference Range Interpretation Comments UA Glucose (test code Negative (04/11/22 6:55 = UA Glucose) PM) [facility] [id number] 23:55:00 Test Item Value Reference Range Interpretation Comments UA Ketones (test code Negative *NA*(04/11/22 = UA Ketones) 6:55 PM) [facility] [id number] 23:55:00 Test Item Value Reference Range Interpretation Comments UA Bili (test code = Negative *NA*(04/11/22 UA Bili) 6:55 PM) [facility] [id number] 23:55:00 Test Item Value Reference Range Interpretation Comments UA Blood (test code = Negative (04/11/22 6:55 UA Blood) PM) [facility] [id number] 23:55:00 Test Item Value Reference Range Interpretation Comments UA Urobilinogen (test code = UA 0.2 0.1-1.0 Urobilinogen) [facility] [id number] 23:55:00 Test Item Value Reference Range Interpretation Comments UA Nitrite (test code Negative (04/11/22 6:55 = UA Nitrite) PM) [facility] [id number] 23:55:00 Test Item Value Reference Range Interpretation Comments UA Leuk Est (test Negative (04/11/22 6:55 code = UA Leuk Est) PM) [facility] [id number] 23:55:00 Test Item Value Reference Range Interpretation Comments UA Sq Epi (test code = UA Sq Occasional /LPF Epi) [facility] [id number] 23:55:00 Test Item Value Reference Range Interpretation Comments UA WBC (test code = no gt See_Comment [Automa fabiano message] The UA WBC) system which ge nerated this result transmit fabiano reference range : <=5. The reference range was not used to interpr et this result as aleks l/abnormal. [facility] [id number] 23:55:00 Test Item Value Reference Range Interpretation Comments UA RBC (test code = no gt See_Comment [Automa fabiano message] The UA RBC) system which ge nerated this result transmit fabiano reference range : <=2. The reference range was not used to interpr et this result as aleks l/abnormal. [facility] [id number] 23:55:00 Test Item Value Reference Range Interpretation Comments UA Bacteria (test code = UA Occasional /HPF Bacteria) [facility] [id number] 23:55:00 Test Item Value Reference Range Interpretation Comments UA Mucus (test code = UA Mucus) Few /LPF [facility] [id number] 23:55:00 Test Item Value Reference Range Interpretation Comments UA Color (test code = Yellow *NA*(04/11/22 UA Color) 6:55 PM) [facility] [id number] 23:55:00 Test Item Value Reference Range Interpretation Comments UA Turbidity (test code = Clear (04/11/22 6:55 UA Turbidity) PM) [facility] [id number] 23:55:00 Test Item Value Reference Range Interpretation Comments UA Spec Grav (test code = UA Spec 1.015 1 Grav) [facility] [id number] 23:55:00 Test Item Value Reference Range Interpretation Comments UA pH (test code = UA pH) 6.0 1 5.0-8.0 [facility] [id number] 23:55:00 Test Item Value Reference Range Interpretation Comments UA Protein (test code Negative (04/11/22 6:55 = UA Protein) PM) [facility] [id number] 23:55:00 Test Item Value Reference Range Interpretation Comments UA Glucose (test code Negative (04/11/22 6:55 = UA Glucose) PM) [facility] [id number] 23:55:00 Test Item Value Reference Range Interpretation Comments UA Ketones (test code Negative *NA*(04/11/22 = UA Ketones) 6:55 PM) [facility] [id number] 23:55:00 Test Item Value Reference Range Interpretation Comments UA Bili (test code = Negative *NA*(04/11/22 UA Bili) 6:55 PM) [facility] [id number] 23:55:00 Test Item Value Reference Range Interpretation Comments UA Blood (test code = Negative (04/11/22 6:55 UA Blood) PM) [facility] [id number] 23:55:00 Test Item Value Reference Range Interpretation Comments UA Urobilinogen (test code = UA 0.2 0.1-1.0 Urobilinogen) [facility] [id number] 23:55:00 Test Item Value Reference Range Interpretation Comments UA Nitrite (test code Negative (04/11/22 6:55 = UA Nitrite) PM) [facility] [id number] 23:55:00 Test Item Value Reference Range Interpretation Comments UA Leuk Est (test Negative (04/11/22 6:55 code = UA Leuk Est) PM) [facility] [id number] 23:55:00 Test Item Value Reference Range Interpretation Comments UA Sq Epi (test code = UA Sq Occasional /LPF Epi) [facility] [id number] 23:55:00 Test Item Value Reference Range Interpretation Comments UA WBC (test code = no gt See_Comment [Automa fabiano message] The UA WBC) system which ge nerated this result transmit fabiano reference range : <=5. The reference range was not used to interpr et this result as aleks l/abnormal. [facility] [id number] 23:55:00 Test Item Value Reference Range Interpretation Comments UA RBC (test code = no gt See_Comment [Automa fabiano message] The UA RBC) system which ge nerated this result transmit fabiano reference range : <=2. The reference range was not used to interpr et this result as aleks l/abnormal. [facility] [id number] 23:55:00 Test Item Value Reference Range Interpretation Comments UA Bacteria (test code = UA Occasional /HPF Bacteria) [facility] [id number] 23:55:00 Test Item Value Reference Range Interpretation Comments UA Mucus (test code = UA Mucus) Few /LPF [facility] [id number] 23:55:00 Test Item Value Reference Range Interpretation Comments Source Strep (test code Urine *NA*(04/11/22 = Source Strep) 6:55 PM) [facility] [id number] 23:55:00 Test Item Value Reference Range Interpretation Comments Strep pneumoniae Ag Negative (04/11/22 (test code = Strep 6:55 PM) pneumoniae Ag) [facility] [id number] 23:55:00 Test Item Value Reference Range Interpretation Comments UA Color (test code = Yellow *NA*(04/11/22 UA Color) 6:55 PM) [facility] [id number] 23:55:00 Test Item Value Reference Range Interpretation Comments UA Turbidity (test code = Clear (04/11/22 6:55 UA Turbidity) PM) [facility] [id number] 23:55:00 Test Item Value Reference Range Interpretation Comments UA Spec Grav (test code = UA Spec 1.015 1 Grav) [facility] [id number] 23:55:00 Test Item Value Reference Range Interpretation Comments UA pH (test code = UA pH) 6.0 1 5.0-8.0 [facility] [id number] 23:55:00 Test Item Value Reference Range Interpretation Comments UA Protein (test code Negative (04/11/22 6:55 = UA Protein) PM) [facility] [id number] 23:55:00 Test Item Value Reference Range Interpretation Comments UA Glucose (test code Negative (04/11/22 6:55 = UA Glucose) PM) [facility] [id number] 23:55:00 Test Item Value Reference Range Interpretation Comments UA Ketones (test code Negative *NA*(04/11/22 = UA Ketones) 6:55 PM) [facility] [id number] 23:55:00 Test Item Value Reference Range Interpretation Comments UA Bili (test code = Negative *NA*(04/11/22 UA Bili) 6:55 PM) [facility] [id number] 23:55:00 Test Item Value Reference Range Interpretation Comments UA Blood (test code = Negative (04/11/22 6:55 UA Blood) PM) [facility] [id number] 23:55:00 Test Item Value Reference Range Interpretation Comments UA Urobilinogen (test code = UA 0.2 0.1-1.0 Urobilinogen) [facility] [id number] 23:55:00 Test Item Value Reference Range Interpretation Comments UA Nitrite (test code Negative (04/11/22 6:55 = UA Nitrite) PM) [facility] [id number] 23:55:00 Test Item Value Reference Range Interpretation Comments UA Leuk Est (test Negative (04/11/22 6:55 code = [facility] Leuk Est) PM) [facility] [id number] 23:55:00 Test Item Value Reference Range Interpretation Comments UA Sq Epi (test code = UA Sq Occasional /LPF Epi) [facility] [id number] 23:55:00 Test Item Value Reference Range Interpretation Comments UA WBC (test code = no gt See_Comment [Automa fabiano message] The UA WBC) system which ge nerated this result transmit fabiano reference range : <=5. The reference range was not used to interpr et this result as aleks l/abnormal. [facility] [id number] 23:55:00 Test Item Value Reference Range Interpretation Comments UA RBC (test code = no gt See_Comment [Automa fabiano message] The UA RBC) system which ge nerated this result transmit fabiano reference range : <=2. The reference range was not used to interpr et this result as aleks l/abnormal. [facility] [id number] 23:55:00 Test Item Value Reference Range Interpretation Comments UA Bacteria (test code = UA Occasional /HPF Bacteria) [facility] [id number] 23:55:00 Test Item Value Reference Range Interpretation Comments UA Mucus (test code = UA Mucus) Few /LPF [facility] [id number] 23:55:00 Test Item Value Reference Range Interpretation Comments UA Color (test code = Yellow *NA*(04/11/22 UA Color) 6:55 PM) [facility] [id number] 23:55:00 Test Item Value Reference Range Interpretation Comments UA Turbidity (test code = Clear (04/11/22 6:55 UA Turbidity) PM) [facility] [id number] 23:55:00 Test Item Value Reference Range Interpretation Comments UA Spec Grav (test code = UA Spec 1.015 1 Grav) [facility] [id number] 23:55:00 Test Item Value Reference Range Interpretation Comments UA pH (test code = UA pH) 6.0 1 5.0-8.0 [facility] [id number] 23:55:00 Test Item Value Reference Range Interpretation Comments UA Protein (test code Negative (04/11/22 6:55 = UA Protein) PM) [facility] [id number] 23:55:00 Test Item Value Reference Range Interpretation Comments UA Glucose (test code Negative (04/11/22 6:55 = UA Glucose) PM) [facility] [id number] 23:55:00 Test Item Value Reference Range Interpretation Comments UA Ketones (test code Negative *NA*(04/11/22 = UA Ketones) 6:55 PM) [facility] [id number] 23:55:00 Test Item Value Reference Range Interpretation Comments UA Bili (test code = Negative *NA*(04/11/22 UA Bili) 6:55 PM) [facility] [id number] 23:55:00 Test Item Value Reference Range Interpretation Comments UA Blood (test code = Negative (04/11/22 6:55 UA Blood) PM) [facility] [id number] 23:55:00 Test Item Value Reference Range Interpretation Comments UA Urobilinogen (test code = UA 0.2 0.1-1.0 Urobilinogen) [facility] [id number] 23:55:00 Test Item Value Reference Range Interpretation Comments UA Nitrite (test code Negative (04/11/22 6:55 = UA Nitrite) PM) [facility] [id number] 23:55:00 Test Item Value Reference Range Interpretation Comments UA Leuk Est (test Negative (04/11/22 6:55 code = UA Leuk Est) PM) [facility] [id number] 23:55:00 Test Item Value Reference Range Interpretation Comments UA Sq Epi (test code = UA Sq Occasional /LPF Epi) [facility] [id number] 23:55:00 Test Item Value Reference Range Interpretation Comments UA WBC (test code = no gt See_Comment [Automa fabiano message] The UA WBC) system which ge nerated this result transmit fabiano reference range : <=5. The reference range was not used to interpr et this result as aleks l/abnormal. [facility] [id number] 23:55:00 Test Item Value Reference Range Interpretation Comments UA RBC (test code = no gt See_Comment [Automa fabiano message] The UA RBC) system which ge nerated this result transmit fabiano reference range : <=2. The reference range was not used to interpr et this result as aleks l/abnormal. [facility] [id number] 23:55:00 Test Item Value Reference Range Interpretation Comments UA Bacteria (test code = UA Occasional /HPF Bacteria) [facility] [id number] 23:55:00 Test Item Value Reference Range Interpretation Comments UA Mucus (test code = UA Mucus) Few /LPF [facility] [id number] 23:55:00 Test Item Value Reference Range Interpretation Comments Source Strep (test code Urine *NA*(04/11/22 = Source Strep) 6:55 PM) [facility] [id number] 23:55:00 Test Item Value Reference Range Interpretation Comments Strep pneumoniae Ag Negative (04/11/22 (test code = Strep 6:55 PM) pneumoniae Ag) [facility] [id number] 23:55:00 Test Item Value Reference Range Interpretation Comments UA Color (test code = Yellow *NA*(04/11/22 UA Color) 6:55 PM) [facility] [id number] 23:55:00 Test Item Value Reference Range Interpretation Comments UA Turbidity (test code = Clear (04/11/22 6:55 UA Turbidity) PM) [facility] [id number] 23:55:00 Test Item Value Reference Range Interpretation Comments UA Spec Grav (test code = UA Spec 1.015 1 Grav) [facility] [id number] 23:55:00 Test Item Value Reference Range Interpretation Comments UA pH (test code = UA pH) 6.0 1 5.0-8.0 [facility] [id number] 23:55:00 Test Item Value Reference Range Interpretation Comments UA Protein (test code Negative (04/11/22 6:55 = UA Protein) PM) [facility] [id number] 23:55:00 Test Item Value Reference Range Interpretation Comments UA Glucose (test code Negative (04/11/22 6:55 = UA Glucose) PM) [facility] [id number] 23:55:00 Test Item Value Reference Range Interpretation Comments UA Ketones (test code Negative *NA*(04/11/22 = UA Ketones) 6:55 PM) [facility] [id number] 23:55:00 Test Item Value Reference Range Interpretation Comments UA Bili (test code = Negative *NA*(04/11/22 UA Bili) 6:55 PM) [facility] [id number] 23:55:00 Test Item Value Reference Range Interpretation Comments UA Blood (test code = Negative (04/11/22 6:55 UA Blood) PM) [facility] [id number] 23:55:00 Test Item Value Reference Range Interpretation Comments UA Urobilinogen (test code = UA 0.2 0.1-1.0 Urobilinogen) [facility] [id number] 23:55:00 Test Item Value Reference Range Interpretation Comments UA Nitrite (test code Negative (04/11/22 6:55 = UA Nitrite) PM) [facility] [id number] 23:55:00 Test Item Value Reference Range Interpretation Comments UA Leuk Est (test Negative (04/11/22 6:55 code = UA Leuk Est) PM) [facility] [id number] 23:55:00 Test Item Value Reference Range Interpretation Comments UA Sq Epi (test code = UA Sq Occasional /LPF Epi) [facility] [id number] 23:55:00 Test Item Value Reference Range Interpretation Comments UA WBC (test code = no gt See_Comment [Automa fabiano message] The UA WBC) system which ge nerated this result transmit fabiano reference range : <=5. The reference range was not used to interpr et this result as aleks l/abnormal. [facility] [id number] 23:55:00 Test Item Value Reference Range Interpretation Comments UA RBC (test code = no gt See_Comment [Automa fabiano message] The UA RBC) system which ge nerated this result transmit fabiano reference range : <=2. The reference range was not used to interpr et this result as aleks l/abnormal. [facility] [id number] 23:55:00 Test Item Value Reference Range Interpretation Comments UA Bacteria (test code = UA Occasional /HPF Bacteria) [facility] [id number] 23:55:00 Test Item Value Reference Range Interpretation Comments UA Mucus (test code = UA Mucus) Few /LPF [facility] [id number] 23:55:00 Test Item Value Reference Range Interpretation Comments UA Color (test code = Yellow *NA*(04/11/22 UA Color) 6:55 PM) [facility] [id number] 23:55:00 Test Item Value Reference Range Interpretation Comments UA Turbidity (test code = Clear (04/11/22 6:55 UA Turbidity) PM) [facility] [id number] 23:55:00 Test Item Value Reference Range Interpretation Comments UA Spec Grav (test code = UA Spec 1.015 1 Grav) [facility] [id number] 23:55:00 Test Item Value Reference Range Interpretation Comments UA pH (test code = UA pH) 6.0 1 5.0-8.0 [facility] [id number] 23:55:00 Test Item Value Reference Range Interpretation Comments UA Protein (test code Negative (04/11/22 6:55 = UA Protein) PM) [facility] [id number] 23:55:00 Test Item Value Reference Range Interpretation Comments UA Glucose (test code Negative (04/11/22 6:55 = UA Glucose) PM) [facility] [id number] 23:55:00 Test Item Value Reference Range Interpretation Comments UA Ketones (test code Negative *NA*(04/11/22 = UA Ketones) 6:55 PM) [facility] [id number] 23:55:00 Test Item Value Reference Range Interpretation Comments UA Bili (test code = Negative *NA*(04/11/22 UA Bili) 6:55 PM) [facility] [id number] 23:55:00 Test Item Value Reference Range Interpretation Comments UA Blood (test code = Negative (04/11/22 6:55 UA Blood) PM) [facility] [id number] 23:55:00 Test Item Value Reference Range Interpretation Comments UA Urobilinogen (test code = UA 0.2 0.1-1.0 Urobilinogen) [facility] [id number] 23:55:00 Test Item Value Reference Range Interpretation Comments UA Nitrite (test code Negative (04/11/22 6:55 = UA Nitrite) PM) [facility] [id number] 23:55:00 Test Item Value Reference Range Interpretation Comments UA Leuk Est (test Negative (04/11/22 6:55 code = UA Leuk Est) PM) [facility] [id number] 23:55:00 Test Item Value Reference Range Interpretation Comments UA Sq Epi (test code = UA Sq Occasional /LPF Epi) [facility] [id number] 23:55:00 Test Item Value Reference Range Interpretation Comments UA WBC (test code = no gt See_Comment [Automa fabiano message] The UA WBC) system which ge nerated this result transmit fabiano reference range : <=5. The reference range was not used to interpr et this result as aleks l/abnormal. [facility] [id number] 23:55:00 Test Item Value Reference Range Interpretation Comments UA RBC (test code = no gt See_Comment [Automa fabiano message] The UA RBC) system which ge nerated this result transmit fabiano reference range : <=2. The reference range was not used to interpr et this result as aleks l/abnormal. [facility] [id number] 23:55:00 Test Item Value Reference Range Interpretation Comments UA Bacteria (test code = UA Occasional /HPF Bacteria) [facility] [id number] 23:55:00 Test Item Value Reference Range Interpretation Comments UA Mucus (test code = UA Mucus) Few /LPF [facility] [id number] 23:55:00 Test Item Value Reference Range Interpretation Comments Source Strep (test code Urine *NA*(04/11/22 = Source Strep) 6:55 PM) [facility] [id number] 23:55:00 Test Item Value Reference Range Interpretation Comments Strep pneumoniae Ag Negative (04/11/22 (test code = Strep 6:55 PM) pneumoniae Ag) [facility] [id number] 23:55:00 Test Item Value Reference Range Interpretation Comments UA Color (test code = Yellow *NA*(04/11/22 UA Color) 6:55 PM) [facility] [id number] 23:55:00 Test Item Value Reference Range Interpretation Comments UA Turbidity (test code = Clear (04/11/22 6:55 UA Turbidity) PM) [facility] [id number] 23:55:00 Test Item Value Reference Range Interpretation Comments UA Spec Grav (test code = UA Spec 1.015 1 Grav) [facility] [id number] 23:55:00 Test Item Value Reference Range Interpretation Comments UA pH (test code = UA pH) 6.0 1 5.0-8.0 [facility] [id number] 23:55:00 Test Item Value Reference Range Interpretation Comments UA Protein (test code Negative (04/11/22 6:55 = UA Protein) PM) [facility] [id number] 23:55:00 Test Item Value Reference Range Interpretation Comments UA Glucose (test code Negative (04/11/22 6:55 = UA Glucose) PM) [facility] [id number] 23:55:00 Test Item Value Reference Range Interpretation Comments UA Ketones (test code Negative *NA*(04/11/22 = UA Ketones) 6:55 PM) [facility] [id number] 23:55:00 Test Item Value Reference Range Interpretation Comments UA Bili (test code = Negative *NA*(04/11/22 UA Bili) 6:55 PM) [facility] [id number] 23:55:00 Test Item Value Reference Range Interpretation Comments UA Blood (test code = Negative (04/11/22 6:55 UA Blood) PM) [facility] [id number] 23:55:00 Test Item Value Reference Range Interpretation Comments UA Urobilinogen (test code = UA 0.2 0.1-1.0 Urobilinogen) [facility] [id number] 23:55:00 Test Item Value Reference Range Interpretation Comments UA Nitrite (test code Negative (04/11/22 6:55 = UA Nitrite) PM) [facility] [id number] 23:55:00 Test Item Value Reference Range Interpretation Comments UA Leuk Est (test Negative (04/11/22 6:55 code = UA Leuk Est) PM) [facility] [id number] 23:55:00 Test Item Value Reference Range Interpretation Comments UA Sq Epi (test code = UA Sq Occasional /LPF Epi) [facility] [id number] 23:55:00 Test Item Value Reference Range Interpretation Comments UA WBC (test code = no gt See_Comment [Automa fabiano message] The UA WBC) system which ge nerated this result transmit fabiano reference range : <=5. The reference range was not used to interpr et this result as aleks l/abnormal. [facility] [id number] 23:55:00 Test Item Value Reference Range Interpretation Comments UA RBC (test code = no gt See_Comment [Automa fabiano message] The UA RBC) system which ge nerated this result transmit fabiano reference range : <=2. The reference range was not used to interpr et this result as aleks l/abnormal. [facility] [id number] 23:55:00 Test Item Value Reference Range Interpretation Comments UA Bacteria (test code = UA Occasional /HPF Bacteria) [facility] [id number] 23:55:00 Test Item Value Reference Range Interpretation Comments UA Mucus (test code = UA Mucus) Few /LPF [facility] [id number] 23:55:00 Test Item Value Reference Range Interpretation Comments UA Color (test code = Yellow *NA*(04/11/22 UA Color) 6:55 PM) [facility] [id number] 23:55:00 Test Item Value Reference Range Interpretation Comments UA Turbidity (test code = Clear (04/11/22 6:55 UA Turbidity) PM) [facility] [id number] 23:55:00 Test Item Value Reference Range Interpretation Comments UA Spec Grav (test code = UA Spec 1.015 1 Grav) [facility] [id number] 23:55:00 Test Item Value Reference Range Interpretation Comments UA pH (test code = UA pH) 6.0 1 5.0-8.0 [facility] [id number] 23:55:00 Test Item Value Reference Range Interpretation Comments UA Protein (test code Negative (04/11/22 6:55 = UA Protein) PM) [facility] [id number] 23:55:00 Test Item Value Reference Range Interpretation Comments UA Glucose (test code Negative (04/11/22 6:55 = UA Glucose) PM) [facility] [id number] 23:55:00 Test Item Value Reference Range Interpretation Comments UA Ketones (test code Negative *NA*(04/11/22 = UA Ketones) 6:55 PM) [facility] [id number] 23:55:00 Test Item Value Reference Range Interpretation Comments UA Bili (test code = Negative *NA*(04/11/22 UA Bili) 6:55 PM) [facility] AND [id number] 23:55:00 Test Item Value Reference Range Interpretation Comments UA Blood (test code = Negative (04/11/22 6:55 UA Blood) PM) [facility] [id number] 23:55:00 Test Item Value Reference Range Interpretation Comments UA Urobilinogen (test code = UA 0.2 0.1-1.0 Urobilinogen) [facility] [id number] 23:55:00 Test Item Value Reference Range Interpretation Comments UA Nitrite (test code Negative (04/11/22 6:55 = UA Nitrite) PM) [facility] AND [id number] 23:55:00 Test Item Value Reference Range Interpretation Comments UA Leuk Est (test Negative (04/11/22 6:55 code = UA Leuk Est) PM) [facility] [id number] 23:55:00 Test Item Value Reference Range Interpretation Comments UA Sq Epi (test code = UA Sq Occasional /LPF Epi) [facility] AND [id number] 23:55:00 Test Item Value Reference Range Interpretation Comments UA WBC (test code = no gt See_Comment [Automa fabiano message] The UA WBC) system which ge nerated this result transmit fabiano reference range : <=5. The reference range was not used to interpr et this result as aleks l/abnormal. [facility] [id number] 23:55:00 Test Item Value Reference Range Interpretation Comments UA RBC (test code = no gt See_Comment [Automa fabiano message] The UA RBC) system which ge nerated this result transmit fabiano reference range : <=2. The reference range was not used to interpr et this result as aleks l/abnormal. [facility] [id number] 23:55:00 Test Item Value Reference Range Interpretation Comments UA Bacteria (test code = UA Occasional /HPF Bacteria) [facility] [id number] 23:55:00 Test Item Value Reference Range Interpretation Comments UA Mucus (test code = UA Mucus) Few /LPF [facility] [id number] 23:55:00 Test Item Value Reference Range Interpretation Comments Source Strep (test code Urine *NA*(04/11/22 = Source Strep) 6:55 PM) [facility] [id number] 23:55:00 Test Item Value Reference Range Interpretation Comments Strep pneumoniae Ag Negative (04/11/22 (test code = Strep 6:55 PM) pneumoniae Ag) [facility] [id number] 23:55:00 Test Item Value Reference Range Interpretation Comments UA Color (test code = Yellow *NA*(04/11/22 UA Color) 6:55 PM) [facility] [id number] 23:55:00 Test Item Value Reference Range Interpretation Comments UA Turbidity (test code = Clear (04/11/22 6:55 UA Turbidity) PM) [facility] [id number] 23:55:00 Test Item Value Reference Range Interpretation Comments UA Spec Grav (test code = UA Spec 1.015 1 Grav) [facility] [id number] 23:55:00 Test Item Value Reference Range Interpretation Comments UA pH (test code = UA pH) 6.0 1 5.0-8.0 [facility] [id number] 23:55:00 Test Item Value Reference Range Interpretation Comments UA Protein (test code Negative (04/11/22 6:55 = UA Protein) PM) [facility] [id number] 23:55:00 Test Item Value Reference Range Interpretation Comments UA Glucose (test code Negative (10/13/22 6:55 = UA Glucose) PM) [facility] [id number] 23:55:00 Test Item Value Reference Range Interpretation Comments UA Ketones (test code Negative *NA*(04/11/22 = UA Ketones) 6:55 PM) [facility] [id number] 23:55:00 Test Item Value Reference Range Interpretation Comments UA Bili (test code = Negative *NA*(04/11/22 UA Bili) 6:55 PM) [facility] [id number] 23:55:00 Test Item Value Reference Range Interpretation Comments UA Blood (test code = Negative (04/11/22 6:55 UA Blood) PM) [facility] [id number] 23:55:00 Test Item Value Reference Range Interpretation Comments UA Urobilinogen (test code = UA 0.2 0.1-1.0 Urobilinogen) [facility] [id number] 23:55:00 Test Item Value Reference Range Interpretation Comments UA Nitrite (test code Negative (04/11/22 6:55 = UA Nitrite) PM) [facility] [id number] 23:55:00 Test Item Value Reference Range Interpretation Comments UA Leuk Est (test Negative (04/11/22 6:55 code = UA Leuk Est) PM) [facility] [id number] 23:55:00 Test Item Value Reference Range Interpretation Comments UA Sq Epi (test code = UA Sq Occasional /LPF Epi) [facility] [id number] 23:55:00 Test Item Value Reference Range Interpretation Comments UA WBC (test code = no gt See_Comment [Automa fabiano message] The UA WBC) system which ge nerated this result transmit fabiano reference range : <=5. The reference range was not used to interpr et this result as aleks l/abnormal. [facility] [id number] 23:55:00 Test Item Value Reference Range Interpretation Comments UA RBC (test code = no gt See_Comment [Automa fabiano message] The UA RBC) system which ge nerated this result transmit fabiano reference range : <=2. The reference range was not used to interpr et this result as aleks l/abnormal. [facility] [id number] 23:55:00 Test Item Value Reference Range Interpretation Comments UA Bacteria (test code = UA Occasional /HPF Bacteria) [facility] [id number] 23:55:00 Test Item Value Reference Range Interpretation Comments UA Mucus (test code = UA Mucus) Few /LPF [facility] [id number] 23:55:00 Test Item Value Reference Range Interpretation Comments UA Color (test code = Yellow *NA*(04/11/22 UA Color) 6:55 PM) [facility] [id number] 23:55:00 Test Item Value Reference Range Interpretation Comments UA Turbidity (test code = Clear (04/11/22 6:55 UA Turbidity) PM) [facility] [id number] 23:55:00 Test Item Value Reference Range Interpretation Comments UA Spec Grav (test code = UA Spec 1.015 1 Grav) [facility] [id number] 23:55:00 Test Item Value Reference Range Interpretation Comments UA pH (test code = UA pH) 6.0 1 5.0-8.0 [facility] [id number] 23:55:00 Test Item Value Reference Range Interpretation Comments UA Protein (test code Negative (04/11/22 6:55 = UA Protein) PM) [facility] [id number] 23:55:00 Test Item Value Reference Range Interpretation Comments UA Glucose (test code Negative (04/11/22 6:55 = UA Glucose) PM) [facility] [id number] 23:55:00 Test Item Value Reference Range Interpretation Comments UA Ketones (test code Negative *NA*(04/11/22 = UA Ketones) 6:55 PM) [facility] [id number] 23:55:00 Test Item Value Reference Range Interpretation Comments UA Bili (test code = Negative *NA*(04/11/22 UA Bili) 6:55 PM) [facility] [id number] 23:55:00 Test Item Value Reference Range Interpretation Comments UA Blood (test code = Negative (04/11/22 6:55 UA Blood) PM) [facility] [id number] 23:55:00 Test Item Value Reference Range Interpretation Comments UA Urobilinogen (test code = UA 0.2 0.1-1.0 Urobilinogen) [facility] [id number] 23:55:00 Test Item Value Reference Range Interpretation Comments UA Nitrite (test code Negative (04/11/22 6:55 = UA Nitrite) PM) [facility] [id number] 23:55:00 Test Item Value Reference Range Interpretation Comments UA Leuk Est (test Negative (04/11/22 6:55 code = UA Leuk Est) PM) [facility] [id number] 23:55:00 Test Item Value Reference Range Interpretation Comments UA Sq Epi (test code = UA Sq Occasional /LPF Epi) [facility] [id number] 23:55:00 Test Item Value Reference Range Interpretation Comments UA WBC (test code = no gt See_Comment [Automa fabiano message] The UA WBC) system which ge nerated this result transmit fabiano reference range : <=5. The reference range was not used to interpr et this result as aleks l/abnormal. [facility] [id number] 23:55:00 Test Item Value Reference Range Interpretation Comments UA RBC (test code = no gt See_Comment [Automa fabiano message] The UA RBC) system which ge nerated this result transmit fabiano reference range : <=2. The reference range was not used to interpr et this result as aleks l/abnormal. [facility] [id number] 23:55:00 Test Item Value Reference Range Interpretation Comments UA Bacteria (test code = UA Occasional /HPF Bacteria) [facility] [id number] 23:55:00 Test Item Value Reference Range Interpretation Comments UA Mucus (test code = UA Mucus) Few /LPF [facility] [id number] 23:55:00 Test Item Value Reference Range Interpretation Comments Source Strep (test code Urine *NA*(04/11/22 = Source Strep) 6:55 PM) [facility] [id number] 23:55:00 Test Item Value Reference Range Interpretation Comments Strep pneumoniae Ag Negative (04/11/22 (test code = Strep 6:55 PM) pneumoniae Ag) [facility] [id number] 23:55:00 Test Item Value Reference Range Interpretation Comments UA Color (test code = Yellow *NA*(04/11/22 UA Color) 6:55 PM) [facility] [id number] 23:55:00 Test Item Value Reference Range Interpretation Comments UA Turbidity (test code = Clear (04/11/22 6:55 UA Turbidity) PM) [facility] [id number] 23:55:00 Test Item Value Reference Range Interpretation Comments UA Spec Grav (test code = UA Spec 1.015 1 Grav) [facility] [id number] 23:55:00 Test Item Value Reference Range Interpretation Comments UA pH (test code = UA pH) 6.0 1 5.0-8.0 [facility] [id number] 23:55:00 Test Item Value Reference Range Interpretation Comments UA Protein (test code Negative (04/11/22 6:55 = UA Protein) PM) [facility] [id number] 23:55:00 Test Item Value Reference Range Interpretation Comments UA Glucose (test code Negative (04/11/22 6:55 = UA Glucose) PM) [facility] [id number] 23:55:00 Test Item Value Reference Range Interpretation Comments UA Ketones (test code Negative *NA*(04/11/22 = UA Ketones) 6:55 PM) [facility] [id number] 23:55:00 Test Item Value Reference Range Interpretation Comments UA Bili (test code = Negative *NA*(04/11/22 UA Bili) 6:55 PM) [facility] [id number] 23:55:00 Test Item Value Reference Range Interpretation Comments UA Blood (test code = Negative (04/11/22 6:55 UA Blood) PM) [facility] [id number] 23:55:00 Test Item Value Reference Range Interpretation Comments UA Urobilinogen (test code = UA 0.2 0.1-1.0 Urobilinogen) [facility] [id number] 23:55:00 Test Item Value Reference Range Interpretation Comments UA Nitrite (test code Negative (04/11/22 6:55 = UA Nitrite) PM) [facility] [id number] 23:55:00 Test Item Value Reference Range Interpretation Comments UA Leuk Est (test Negative (04/11/22 6:55 code = UA Leuk Est) PM) [facility] [id number] 23:55:00 Test Item Value Reference Range Interpretation Comments UA Sq Epi (test code = UA Sq Occasional /LPF Epi) [facility] [id number] 23:55:00 Test Item Value Reference Range Interpretation Comments UA WBC (test code = no gt See_Comment [Automa fabiano message] The UA WBC) system which ge nerated this result transmit fabiano reference range : <=5. The reference range was not used to interpr et this result as aleks l/abnormal. [facility] [id number] 23:55:00 Test Item Value Reference Range Interpretation Comments UA RBC (test code = no gt See_Comment [Automa fabiano message] The UA RBC) system which ge nerated this result transmit fabiano reference range : <=2. The reference range was not used to interpr et this result as aleks l/abnormal. [facility] [id number] 23:55:00 Test Item Value Reference Range Interpretation Comments UA Bacteria (test code = UA Occasional /HPF Bacteria) [facility] [id number] 23:55:00 Test Item Value Reference Range Interpretation Comments UA Mucus (test code = UA Mucus) Few /LPF [facility] [id number] 23:55:00 Test Item Value Reference Range Interpretation Comments UA Color (test code = Yellow *NA*(04/11/22 UA Color) 6:55 PM) [facility] [id number] 23:55:00 Test Item Value Reference Range Interpretation Comments UA Turbidity (test code = Clear (04/11/22 6:55 UA Turbidity) PM) [facility] [id number] 23:55:00 Test Item Value Reference Range Interpretation Comments UA Spec Grav (test code = UA Spec 1.015 1 Grav) [facility] [id number] 23:55:00 Test Item Value Reference Range Interpretation Comments UA pH (test code = UA pH) 6.0 1 5.0-8.0 [facility] [id number] 23:55:00 Test Item Value Reference Range Interpretation Comments UA Protein (test code Negative (04/11/22 6:55 = UA Protein) PM) [facility] [id number] 23:55:00 Test Item Value Reference Range Interpretation Comments UA Glucose (test code Negative (04/11/22 6:55 = UA Glucose) PM) [facility] [id number] 23:55:00 Test Item Value Reference Range Interpretation Comments UA Ketones (test code Negative *NA*(04/11/22 = UA Ketones) 6:55 PM) [facility] [id number] 23:55:00 Test Item Value Reference Range Interpretation Comments UA Bili (test code = Negative *NA*(04/11/22 UA Bili) 6:55 PM) [facility] AND [id number] 23:55:00 Test Item Value Reference Range Interpretation Comments UA Blood (test code = Negative (04/11/22 6:55 UA Blood) PM) [facility] [id number] 23:55:00 Test Item Value Reference Range Interpretation Comments UA Urobilinogen (test code = UA 0.2 0.1-1.0 Urobilinogen) [facility] [id number] 23:55:00 Test Item Value Reference Range Interpretation Comments UA Nitrite (test code Negative (04/11/22 6:55 = UA Nitrite) PM) [facility] AND [id number] 23:55:00 Test Item Value Reference Range Interpretation Comments UA Leuk Est (test Negative (04/11/22 6:55 code = UA Leuk Est) PM) [facility] [id number] 23:55:00 Test Item Value Reference Range Interpretation Comments UA Sq Epi (test code = UA Sq Occasional /LPF Epi) [facility] AND [id number] 23:55:00 Test Item Value Reference Range Interpretation Comments UA WBC (test code = no gt See_Comment [Automa fabiano message] The UA WBC) system which ge nerated this result transmit fabiano reference range : <=5. The reference range was not used to interpr et this result as aleks l/abnormal. [facility] [id number] 23:55:00 Test Item Value Reference Range Interpretation Comments UA RBC (test code = no gt See_Comment [Automa fabiano message] The UA RBC) system which ge nerated this result transmit fabiano reference range : <=2. The reference range was not used to interpr et this result as aleks l/abnormal. [facility] [id number] 23:55:00 Test Item Value Reference Range Interpretation Comments UA Bacteria (test code = UA Occasional /HPF Bacteria) [facility] [id number] 23:55:00 Test Item Value Reference Range Interpretation Comments UA Mucus (test code = UA Mucus) Few /LPF [facility] [id number] 23:55:00 Test Item Value Reference Range Interpretation Comments Source Strep (test code Urine *NA*(04/11/22 = Source Strep) 6:55 PM) [facility] [id number] 23:55:00 Test Item Value Reference Range Interpretation Comments Strep pneumoniae Ag Negative (04/11/22 (test code = Strep 6:55 PM) pneumoniae Ag) [facility] [id number] 23:55:00 Test Item Value Reference Range Interpretation Comments UA Color (test code = Yellow *NA*(04/11/22 UA Color) 6:55 PM) [facility] [id number] 23:55:00 Test Item Value Reference Range Interpretation Comments UA Turbidity (test code = Clear (04/11/22 6:55 UA Turbidity) PM) [facility] [id number] 23:55:00 Test Item Value Reference Range Interpretation Comments UA Spec Grav (test code = UA Spec 1.015 1 Grav) [facility] [id number] 23:55:00 Test Item Value Reference Range Interpretation Comments UA pH (test code = UA pH) 6.0 1 5.0-8.0 [facility] [id number] 23:55:00 Test Item Value Reference Range Interpretation Comments UA Protein (test code Negative (04/11/22 6:55 = UA Protein) PM) [facility] [id number] 23:55:00 Test Item Value Reference Range Interpretation Comments UA Glucose (test code Negative (04/11/22 6:55 = UA Glucose) PM) [facility] [id number] 23:55:00 Test Item Value Reference Range Interpretation Comments UA Ketones (test code Negative *NA*(04/11/22 = UA Ketones) 6:55 PM) [facility] [id number] 23:55:00 Test Item Value Reference Range Interpretation Comments UA Bili (test code = Negative *NA*(04/11/22 UA Bili) 6:55 PM) [facility] [id number] 23:55:00 Test Item Value Reference Range Interpretation Comments UA Blood (test code = Negative (04/11/22 6:55 UA Blood) PM) [facility] [id number] 23:55:00 Test Item Value Reference Range Interpretation Comments UA Urobilinogen (test code = UA 0.2 0.1-1.0 Urobilinogen) [facility] [id number] 23:55:00 Test Item Value Reference Range Interpretation Comments UA Nitrite (test code Negative (04/11/22 6:55 = UA Nitrite) PM) [facility] [id number] 23:55:00 Test Item Value Reference Range Interpretation Comments UA Leuk Est (test Negative (04/11/22 6:55 code = UA Leuk Est) PM) [facility] [id number] 23:55:00 Test Item Value Reference Range Interpretation Comments UA Sq Epi (test code = UA Sq Occasional /LPF Epi) [facility] [id number] 23:55:00 Test Item Value Reference Range Interpretation Comments UA WBC (test code = no gt See_Comment [Automa fabiano message] The UA WBC) system which ge nerated this result transmit fabiano reference range : <=5. The reference range was not used to interpr et this result as aleks l/abnormal. [facility] [id number] 23:55:00 Test Item Value Reference Range Interpretation Comments UA RBC (test code = no gt See_Comment [Automa fabiano message] The UA RBC) system which ge nerated this result transmit fabiano reference range : <=2. The reference range was not used to interpr et this result as aleks l/abnormal. [facility] [id number] 23:55:00 Test Item Value Reference Range Interpretation Comments UA Bacteria (test code = UA Occasional /HPF Bacteria) [facility] [id number] 23:55:00 Test Item Value Reference Range Interpretation Comments UA Mucus (test code = UA Mucus) Few /LPF [facility] [id number] 23:55:00 Test Item Value Reference Range Interpretation Comments UA Color (test code = Yellow *NA*(04/11/22 UA Color) 6:55 PM) [facility] [id number] 23:55:00 Test Item Value Reference Range Interpretation Comments UA Turbidity (test code = Clear (04/11/22 6:55 UA Turbidity) PM) [facility] [id number] 23:55:00 Test Item Value Reference Range Interpretation Comments UA Spec Grav (test code = UA Spec 1.015 1 Grav) [facility] [id number] 23:55:00 Test Item Value Reference Range Interpretation Comments UA pH (test code = UA pH) 6.0 1 5.0-8.0 [facility] [id number] 23:55:00 Test Item Value Reference Range Interpretation Comments UA Protein (test code Negative (04/11/22 6:55 = UA Protein) PM) [facility] [id number] 23:55:00 Test Item Value Reference Range Interpretation Comments UA Glucose (test code Negative (04/11/22 6:55 = UA Glucose) PM) [facility] [id number] 23:55:00 Test Item Value Reference Range Interpretation Comments UA Ketones (test code Negative *NA*(04/11/22 = UA Ketones) 6:55 PM) [facility] [id number] 23:55:00 Test Item Value Reference Range Interpretation Comments UA Bili (test code = Negative *NA*(04/11/22 UA Bili) 6:55 PM) [facility] [id number] 23:55:00 Test Item Value Reference Range Interpretation Comments UA Blood (test code = Negative (04/11/22 6:55 UA Blood) PM) [facility] [id number] 23:55:00 Test Item Value Reference Range Interpretation Comments UA Urobilinogen (test code = UA 0.2 0.1-1.0 Urobilinogen) [facility] [id number] 23:55:00 Test Item Value Reference Range Interpretation Comments UA Nitrite (test code Negative (04/11/22 6:55 = UA Nitrite) PM) [facility] [id number] 23:55:00 Test Item Value Reference Range Interpretation Comments UA Leuk Est (test Negative (04/11/22 6:55 code = UA Leuk Est) PM) [facility] [id number] 23:55:00 Test Item Value Reference Range Interpretation Comments UA Sq Epi (test code = UA Sq Occasional /LPF Epi) [facility] [id number] 23:55:00 Test Item Value Reference Range Interpretation Comments UA WBC (test code = no gt See_Comment [Automa fabiano message] The UA WBC) system which ge nerated this result transmit fabiano reference range : <=5. The reference range was not used to interpr et this result as aleks l/abnormal. [facility] [id number] 23:55:00 Test Item Value Reference Range Interpretation Comments UA RBC (test code = no gt See_Comment [Automa fabiano message] The UA RBC) system which ge nerated this result transmit fabiano reference range : <=2. The reference range was not used to interpr et this result as aleks l/abnormal. [facility] [id number] 23:55:00 Test Item Value Reference Range Interpretation Comments UA Bacteria (test code = UA Occasional /HPF Bacteria) [facility] [id number] 23:55:00 Test Item Value Reference Range Interpretation Comments UA Mucus (test code = UA Mucus) Few /LPF [facility] [id number] 23:55:00 Test Item Value Reference Range Interpretation Comments Source Strep (test code Urine *NA*(04/11/22 = Source Strep) 6:55 PM) [facility] [id number] 23:55:00 Test Item Value Reference Range Interpretation Comments Strep pneumoniae Ag Negative (04/11/22 (test code = Strep 6:55 PM) pneumoniae Ag) [facility] [id number] 23:55:00 Test Item Value Reference Range Interpretation Comments UA Color (test code = Yellow *NA*(04/11/22 UA Color) 6:55 PM) [facility] [id number] 23:55:00 Test Item Value Reference Range Interpretation Comments UA Turbidity (test code = Clear (04/11/22 6:55 UA Turbidity) PM) [facility] [id number] 23:55:00 Test Item Value Reference Range Interpretation Comments UA Spec Grav (test code = UA Spec 1.015 1 Grav) [facility] [id number] 23:55:00 Test Item Value Reference Range Interpretation Comments UA pH (test code = UA pH) 6.0 1 5.0-8.0 [facility] [id number] 23:55:00 Test Item Value Reference Range Interpretation Comments UA Protein (test code Negative (04/11/22 6:55 = UA Protein) PM) [facility] [id number] 23:55:00 Test Item Value Reference Range Interpretation Comments UA Glucose (test code Negative (04/11/22 6:55 = UA Glucose) PM) [facility] [id number] 23:55:00 Test Item Value Reference Range Interpretation Comments UA Ketones (test code Negative *NA*(04/11/22 = UA Ketones) 6:55 PM) [facility] [id number] 23:55:00 Test Item Value Reference Range Interpretation Comments UA Bili (test code = Negative *NA*(04/11/22 UA Bili) 6:55 PM) [facility] [id number] 23:55:00 Test Item Value Reference Range Interpretation Comments UA Blood (test code = Negative (04/11/22 6:55 UA Blood) PM) [facility] [id number] 23:55:00 Test Item Value Reference Range Interpretation Comments UA Urobilinogen (test code = UA 0.2 0.1-1.0 Urobilinogen) [facility] [id number] 23:55:00 Test Item Value Reference Range Interpretation Comments UA Nitrite (test code Negative (04/11/22 6:55 = UA Nitrite) PM) [facility] [id number] 23:55:00 Test Item Value Reference Range Interpretation Comments UA Leuk Est (test Negative (04/11/22 6:55 code = UA Leuk Est) PM) [facility] [id number] 23:55:00 Test Item Value Reference Range Interpretation Comments UA Sq Epi (test code = UA Sq Occasional /LPF Epi) [facility] [id number] 23:55:00 Test Item Value Reference Range Interpretation Comments UA WBC (test code = no gt See_Comment [Automa fabiano message] The UA WBC) system which ge nerated this result transmit fabiano reference range : <=5. The reference range was not used to interpr et this result as aleks l/abnormal. [facility] [id number] 23:55:00 Test Item Value Reference Range Interpretation Comments UA RBC (test code = no gt See_Comment [Automa fabiano message] The UA RBC) system which ge nerated this result transmit fabiano reference range : <=2. The reference range was not used to interpr et this result as aleks l/abnormal. [facility] [id number] 23:55:00 Test Item Value Reference Range Interpretation Comments UA Bacteria (test code = UA Occasional /HPF Bacteria) [facility] [id number] 23:55:00 Test Item Value Reference Range Interpretation Comments UA Mucus (test code = UA Mucus) Few /LPF [facility] [id number] 23:55:00 Test Item Value Reference Range Interpretation Comments UA Color (test code = Yellow *NA*(04/11/22 UA Color) 6:55 PM) [facility] [id number] 23:55:00 Test Item Value Reference Range Interpretation Comments UA Turbidity (test code = Clear (04/11/22 6:55 UA Turbidity) PM) [facility] [id number] 23:55:00 Test Item Value Reference Range Interpretation Comments UA Spec Grav (test code = UA Spec 1.015 1 Grav) [facility] [id number] 23:55:00 Test Item Value Reference Range Interpretation Comments UA pH (test code = UA pH) 6.0 1 5.0-8.0 [facility] [id number] 23:55:00 Test Item Value Reference Range Interpretation Comments UA Protein (test code Negative (04/11/22 6:55 = UA Protein) PM) [facility] [id number] 23:55:00 Test Item Value Reference Range Interpretation Comments UA Glucose (test code Negative (04/11/22 6:55 = UA Glucose) PM) [facility] [id number] 23:55:00 Test Item Value Reference Range Interpretation Comments UA Ketones (test code Negative *NA*(04/11/22 = UA Ketones) 6:55 PM) [facility] [id number] 23:55:00 Test Item Value Reference Range Interpretation Comments UA Bili (test code = Negative *NA*(04/11/22 UA Bili) 6:55 PM) [facility] [id number] 23:55:00 Test Item Value Reference Range Interpretation Comments UA Blood (test code = Negative (04/11/22 6:55 UA Blood) PM) [facility] [id number] 23:55:00 Test Item Value Reference Range Interpretation Comments UA Urobilinogen (test code = UA 0.2 0.1-1.0 Urobilinogen) [facility] [id number] 23:55:00 Test Item Value Reference Range Interpretation Comments UA Nitrite (test code Negative (04/11/22 6:55 = UA Nitrite) PM) [facility] [id number] 23:55:00 Test Item Value Reference Range Interpretation Comments UA Leuk Est (test Negative (04/11/22 6:55 code = UA Leuk Est) PM) [facility] [id number] 23:55:00 Test Item Value Reference Range Interpretation Comments UA Sq Epi (test code = UA Sq Occasional /LPF Epi) [facility] [id number] 23:55:00 Test Item Value Reference Range Interpretation Comments UA WBC (test code = no gt See_Comment [Automa fabiano message] The UA WBC) system which ge nerated this result transmit fabiano reference range : <=5. The reference range was not used to interpr et this result as aleks l/abnormal. [facility] [id number] 23:55:00 Test Item Value Reference Range Interpretation Comments UA RBC (test code = no gt See_Comment [Automa fabiano message] The UA RBC) system which ge nerated this result transmit fabiano reference range : <=2. The reference range was not used to interpr et this result as aleks l/abnormal. [facility] [id number] 23:55:00 Test Item Value Reference Range Interpretation Comments UA Bacteria (test code = UA Occasional /HPF Bacteria) [facility] [id number] 23:55:00 Test Item Value Reference Range Interpretation Comments UA Mucus (test code = UA Mucus) Few /LPF [facility] [id number] 23:55:00 Test Item Value Reference Range Interpretation Comments Source Strep (test code Urine *NA*(04/11/22 = Source Strep) 6:55 PM) [facility] [id number] 23:55:00 Test Item Value Reference Range Interpretation Comments Strep pneumoniae Ag Negative (04/11/22 (test code = Strep 6:55 PM) pneumoniae Ag) [facility] [id number] 23:55:00 Test Item Value Reference Range Interpretation Comments UA Color (test code = Yellow *NA*(04/11/22 UA Color) 6:55 PM) [facility] [id number] 23:55:00 Test Item Value Reference Range Interpretation Comments UA Turbidity (test code = Clear (04/11/22 6:55 UA Turbidity) PM) [facility] [id number] 23:55:00 Test Item Value Reference Range Interpretation Comments UA Spec Grav (test code = UA Spec 1.015 1 Grav) [facility] [id number] 23:55:00 Test Item Value Reference Range Interpretation Comments UA pH (test code = UA pH) 6.0 1 5.0-8.0 [facility] [id number] 23:55:00 Test Item Value Reference Range Interpretation Comments UA Protein (test code Negative (04/11/22 6:55 = UA Protein) PM) [facility] [id number] 23:55:00 Test Item Value Reference Range Interpretation Comments UA Glucose (test code Negative (04/11/22 6:55 = UA Glucose) PM) [facility] [id number] 23:55:00 Test Item Value Reference Range Interpretation Comments UA Ketones (test code Negative *NA*(04/11/22 = UA Ketones) 6:55 PM) [facility] [id number] 23:55:00 Test Item Value Reference Range Interpretation Comments UA Bili (test code = Negative *NA*(04/11/22 UA Bili) 6:55 PM) [facility] [id number] 23:55:00 Test Item Value Reference Range Interpretation Comments UA Blood (test code = Negative (04/11/22 6:55 UA Blood) PM) [facility] [id number] 23:55:00 Test Item Value Reference Range Interpretation Comments UA Urobilinogen (test code = UA 0.2 0.1-1.0 Urobilinogen) [facility] [id number] 23:55:00 Test Item Value Reference Range Interpretation Comments UA Nitrite (test code Negative (04/11/22 6:55 = [facility] Nitrite) PM) [facility] [id number] 23:55:00 Test Item Value Reference Range Interpretation Comments UA Leuk Est (test Negative (04/11/22 6:55 code = UA Leuk Est) PM) [facility] [id number] 23:55:00 Test Item Value Reference Range Interpretation Comments UA Sq Epi (test code = UA Sq Occasional /LPF Epi) [facility] [id number] 23:55:00 Test Item Value Reference Range Interpretation Comments UA WBC (test code = no gt See_Comment [Automa fabiano message] The UA WBC) system which ge nerated this result transmit fabiano reference range : <=5. The reference range was not used to interpr et this result as aleks l/abnormal. [facility] [id number] 23:55:00 Test Item Value Reference Range Interpretation Comments UA RBC (test code = no gt See_Comment [Automa fabiano message] The UA RBC) system which ge nerated this result transmit fabiano reference range : <=2. The reference range was not used to interpr et this result as aleks l/abnormal. [facility] [id number] 23:55:00 Test Item Value Reference Range Interpretation Comments UA Bacteria (test code = UA Occasional /HPF Bacteria) [facility] [id number] 23:55:00 Test Item Value Reference Range Interpretation Comments UA Mucus (test code = UA Mucus) Few /LPF [facility] [id number] 23:55:00 Test Item Value Reference Range Interpretation Comments UA Color (test code = Yellow *NA*(04/11/22 UA Color) 6:55 PM) [facility] [id number] 23:55:00 Test Item Value Reference Range Interpretation Comments UA Turbidity (test code = Clear (04/11/22 6:55 UA Turbidity) PM) [facility] [id number] 23:55:00 Test Item Value Reference Range Interpretation Comments UA Spec Grav (test code = UA Spec 1.015 1 Grav) [facility] [id number] 23:55:00 Test Item Value Reference Range Interpretation Comments UA pH (test code = UA pH) 6.0 1 5.0-8.0 [facility] [id number] 23:55:00 Test Item Value Reference Range Interpretation Comments UA Protein (test code Negative (04/11/22 6:55 = UA Protein) PM) [facility] [id number] 23:55:00 Test Item Value Reference Range Interpretation Comments Source Strep (test code Urine *NA*(04/11/22 = Source Strep) 6:55 PM) [facility] [id number] 23:55:00 Test Item Value Reference Range Interpretation Comments Strep pneumoniae Ag Negative (04/11/22 (test code = Strep 6:55 PM) pneumoniae Ag) [facility] [id number] 23:55:00 Test Item Value Reference Range Interpretation Comments UA Color (test code = Yellow *NA*(04/11/22 UA Color) 6:55 PM) [facility] [id number] 23:55:00 Test Item Value Reference Range Interpretation Comments UA Turbidity (test code = Clear (04/11/22 6:55 UA Turbidity) PM) [facility] [id number] 23:55:00 Test Item Value Reference Range Interpretation Comments UA Spec Grav (test code = UA Spec 1.015 1 Grav) [facility] [id number] 23:55:00 Test Item Value Reference Range Interpretation Comments UA pH (test code = UA pH) 6.0 1 5.0-8.0 [facility] [id number] 23:55:00 Test Item Value Reference Range Interpretation Comments UA Glucose (test code Negative (04/11/22 6:55 = UA Glucose) PM) [facility] [id number] 23:55:00 Test Item Value Reference Range Interpretation Comments UA Protein (test code Negative (04/11/22 6:55 = UA Protein) PM) [facility] [id number] 23:55:00 Test Item Value Reference Range Interpretation Comments UA Glucose (test code Negative (04/11/22 6:55 = UA Glucose) PM) [facility] [id number] 23:55:00 Test Item Value Reference Range Interpretation Comments UA Ketones (test code Negative *NA*(04/11/22 = UA Ketones) 6:55 PM) [facility] AND [id number] 23:55:00 Test Item Value Reference Range Interpretation Comments UA Bili (test code = Negative *NA*(04/11/22 UA Bili) 6:55 PM) [facility] AND [id number] 23:55:00 Test Item Value Reference Range Interpretation Comments UA Blood (test code = Negative (04/11/22 6:55 UA Blood) PM) [facility] AND [id number] 23:55:00 Test Item Value Reference Range Interpretation Comments UA Urobilinogen (test code = UA 0.2 0.1-1.0 Urobilinogen) [facility] AND [id number] 23:55:00 Test Item Value Reference Range Interpretation Comments UA Nitrite (test code Negative (04/11/22 6:55 = UA Nitrite) PM) [facility] [id number] 23:55:00 Test Item Value Reference Range Interpretation Comments UA Leuk Est (test Negative (04/11/22 6:55 code = UA Leuk Est) PM) [facility] AND [id number] 23:55:00 Test Item Value Reference Range Interpretation Comments UA Sq Epi (test code = UA Sq Occasional /LPF Epi) [facility] [id number] 23:55:00 Test Item Value Reference Range Interpretation Comments UA WBC (test code = no gt See_Comment [Automa fabiano message] The UA WBC) system which ge nerated this result transmit fabiano reference range : <=5. The reference range was not used to interpr et this result as aleks l/abnormal. [facility] [id number] 23:55:00 Test Item Value Reference Range Interpretation Comments UA Ketones (test code Negative *NA*(04/11/22 = UA Ketones) 6:55 PM) [facility] [id number] 23:55:00 Test Item Value Reference Range Interpretation Comments UA RBC (test code = no gt See_Comment [Automa fabiano message] The UA RBC) system which ge nerated this result transmit fabiano reference range : <=2. The reference range was not used to interpr et this result as aleks l/abnormal. [facility] [id number] 23:55:00 Test Item Value Reference Range Interpretation Comments UA Bacteria (test code = UA Occasional /HPF Bacteria) [facility] [id number] 23:55:00 Test Item Value Reference Range Interpretation Comments UA Mucus (test code = UA Mucus) Few /LPF [facility] [id number] 23:55:00 Test Item Value Reference Range Interpretation Comments UA Color (test code = Yellow *NA*(04/11/22 UA Color) 6:55 PM) [facility] [id number] 23:55:00 Test Item Value Reference Range Interpretation Comments UA Turbidity (test code = Clear (04/11/22 6:55 UA Turbidity) PM) [facility] [id number] 23:55:00 Test Item Value Reference Range Interpretation Comments UA Spec Grav (test code = UA Spec 1.015 1 Grav) [facility] [id number] 23:55:00 Test Item Value Reference Range Interpretation Comments UA pH (test code = UA pH) 6.0 1 5.0-8.0 [facility] [id number] 23:55:00 Test Item Value Reference Range Interpretation Comments UA Protein (test code Negative (04/11/22 6:55 = UA Protein) PM) [facility] [id number] 23:55:00 Test Item Value Reference Range Interpretation Comments UA Glucose (test code Negative (04/11/22 6:55 = UA Glucose) PM) [facility] [id number] 23:55:00 Test Item Value Reference Range Interpretation Comments UA Ketones (test code Negative *NA*(04/11/22 = UA Ketones) 6:55 PM) [facility] [id number] 23:55:00 Test Item Value Reference Range Interpretation Comments UA Bili (test code = Negative *NA*(04/11/22 UA Bili) 6:55 PM) [facility] [id number] 23:55:00 Test Item Value Reference Range Interpretation Comments UA Bili (test code = Negative *NA*(04/11/22 UA Bili) 6:55 PM) [facility] [id number] 23:55:00 Test Item Value Reference Range Interpretation Comments UA Blood (test code = Negative (04/11/22 6:55 UA Blood) PM) [facility] [id number] 23:55:00 Test Item Value Reference Range Interpretation Comments UA Urobilinogen (test code = UA 0.2 0.1-1.0 Urobilinogen) [facility] [id number] 23:55:00 Test Item Value Reference Range Interpretation Comments UA Nitrite (test code Negative (04/11/22 6:55 = UA Nitrite) PM) [facility] [id number] 23:55:00 Test Item Value Reference Range Interpretation Comments UA Leuk Est (test Negative (04/11/22 6:55 code = UA Leuk Est) PM) [facility] [id number] 23:55:00 Test Item Value Reference Range Interpretation Comments UA Sq Epi (test code = UA Sq Occasional /LPF Epi) [facility] [id number] 23:55:00 Test Item Value Reference Range Interpretation Comments UA WBC (test code = no gt See_Comment [Automa fabiano message] The UA WBC) system which ge nerated this result transmit fabiano reference range : <=5. The reference range was not used to interpr et this result as aleks l/abnormal. [facility] [id number] 23:55:00 Test Item Value Reference Range Interpretation Comments UA RBC (test code = no gt See_Comment [Automa fabiano message] The UA RBC) system which ge nerated this result transmit fabiano reference range : <=2. The reference range was not used to interpr et this result as aleks l/abnormal. [facility] [id number] 23:55:00 Test Item Value Reference Range Interpretation Comments UA Bacteria (test code = UA Occasional /HPF Bacteria) [facility] [id number] 23:55:00 Test Item Value Reference Range Interpretation Comments UA Mucus (test code = UA Mucus) Few /LPF [facility] [id number] 23:55:00 Test Item Value Reference Range Interpretation Comments UA Blood (test code = Negative (04/11/22 6:55 UA Blood) PM) [facility] [id number] 23:55:00 Test Item Value Reference Range Interpretation Comments UA Urobilinogen (test code = UA 0.2 0.1-1.0 Urobilinogen) [facility] [id number] 23:55:00 Test Item Value Reference Range Interpretation Comments UA Nitrite (test code Negative (04/11/22 6:55 = UA Nitrite) PM) [facility] [id number] 23:55:00 Test Item Value Reference Range Interpretation Comments UA Leuk Est (test Negative (04/11/22 6:55 code = UA Leuk Est) PM) [facility] [id number] 23:55:00 Test Item Value Reference Range Interpretation Comments UA Sq Epi (test code = UA Sq Occasional /LPF Epi) [facility] [id number] 23:55:00 Test Item Value Reference Range Interpretation Comments UA WBC (test code = no gt See_Comment [Automa fabiano message] The UA WBC) system which ge nerated this result transmit fabiano reference range : <=5. The reference range was not used to interpr et this result as aleks l/abnormal. [facility] [id number] 23:55:00 Test Item Value Reference Range Interpretation Comments UA RBC (test code = no gt See_Comment [Automa fabiano message] The UA RBC) system which ge nerated this result transmit fabiano reference range : <=2. The reference range was not used to interpr et this result as aleks l/abnormal. [facility] [id number] 23:55:00 Test Item Value Reference Range Interpretation Comments UA Bacteria (test code = UA Occasional /HPF Bacteria) [facility] [id number] 23:55:00 Test Item Value Reference Range Interpretation Comments UA Mucus (test code = UA Mucus) Few /LPF [facility] [id number] 23:55:00 Test Item Value Reference Range Interpretation Comments Source Strep (test code Urine *NA*(04/11/22 = Source Strep) 6:55 PM) [facility] [id number] 23:55:00 Test Item Value Reference Range Interpretation Comments Strep pneumoniae Ag Negative (04/11/22 (test code = Strep 6:55 PM) pneumoniae Ag) [facility] [id number] 23:55:00 Test Item Value Reference Range Interpretation Comments UA Color (test code = Yellow *NA*(04/11/22 UA Color) 6:55 PM) [facility] [id number] 23:55:00 Test Item Value Reference Range Interpretation Comments UA Turbidity (test code = Clear (04/11/22 6:55 UA Turbidity) PM) [facility] [id number] 23:55:00 Test Item Value Reference Range Interpretation Comments UA Spec Grav (test code = UA Spec 1.015 1 Grav) [facility] [id number] 23:55:00 Test Item Value Reference Range Interpretation Comments UA pH (test code = UA pH) 6.0 1 5.0-8.0 [facility] [id number] 23:55:00 Test Item Value Reference Range Interpretation Comments UA Protein (test code Negative (04/11/22 6:55 = UA Protein) PM) [facility] [id number] 23:55:00 Test Item Value Reference Range Interpretation Comments UA Glucose (test code Negative (04/11/22 6:55 = UA Glucose) PM) [facility] [id number] 23:55:00 Test Item Value Reference Range Interpretation Comments UA Ketones (test code Negative *NA*(04/11/22 = UA Ketones) 6:55 PM) [facility] [id number] 23:55:00 Test Item Value Reference Range Interpretation Comments UA Bili (test code = Negative *NA*(04/11/22 UA Bili) 6:55 PM) [facility] [id number] 23:55:00 Test Item Value Reference Range Interpretation Comments UA Blood (test code = Negative (04/11/22 6:55 UA Blood) PM) [facility] [id number] 23:55:00 Test Item Value Reference Range Interpretation Comments UA Urobilinogen (test code = UA 0.2 0.1-1.0 Urobilinogen) [facility] [id number] 23:55:00 Test Item Value Reference Range Interpretation Comments UA Nitrite (test code Negative (04/11/22 6:55 = UA Nitrite) PM) [facility] [id number] 23:55:00 Test Item Value Reference Range Interpretation Comments UA Leuk Est (test Negative (04/11/22 6:55 code = UA Leuk Est) PM) [facility] [id number] 23:55:00 Test Item Value Reference Range Interpretation Comments UA Sq Epi (test code = UA Sq Occasional /LPF Epi) [facility] [id number] 23:55:00 Test Item Value Reference Range Interpretation Comments UA WBC (test code = no gt See_Comment [Automa fabiano message] The UA WBC) system which ge nerated this result transmit fabiano reference range : <=5. The reference range was not used to interpr et this result as aleks l/abnormal. [facility] [id number] 23:55:00 Test Item Value Reference Range Interpretation Comments UA RBC (test code = no gt See_Comment [Automa fabiano message] The UA RBC) system which ge nerated this result transmit fabiano reference range : <=2. The reference range was not used to interpr et this result as aleks l/abnormal. [facility] [id number] 23:55:00 Test Item Value Reference Range Interpretation Comments UA Bacteria (test code = UA Occasional /HPF Bacteria) [facility] [id number] 23:55:00 Test Item Value Reference Range Interpretation Comments UA Mucus (test code = UA Mucus) Few /LPF [facility] [id number] 23:55:00 Test Item Value Reference Range Interpretation Comments UA Color (test code = Yellow *NA*(04/11/22 UA Color) 6:55 PM) [facility] [id number] 23:55:00 Test Item Value Reference Range Interpretation Comments UA Turbidity (test code = Clear (04/11/22 6:55 UA Turbidity) PM) [facility] [id number] 23:55:00 Test Item Value Reference Range Interpretation Comments UA Spec Grav (test code = UA Spec 1.015 1 Grav) [facility] [id number] 23:55:00 Test Item Value Reference Range Interpretation Comments UA pH (test code = UA pH) 6.0 1 5.0-8.0 [facility] [id number] 23:55:00 Test Item Value Reference Range Interpretation Comments UA Protein (test code Negative (04/11/22 6:55 = UA Protein) PM) [facility] [id number] 23:55:00 Test Item Value Reference Range Interpretation Comments UA Glucose (test code Negative (04/11/22 6:55 = UA Glucose) PM) [facility] [id number] 23:55:00 Test Item Value Reference Range Interpretation Comments UA Ketones (test code Negative *NA*(04/11/22 = UA Ketones) 6:55 PM) [facility] [id number] 23:55:00 Test Item Value Reference Range Interpretation Comments UA Bili (test code = Negative *NA*(04/11/22 UA Bili) 6:55 PM) [facility] [id number] 23:55:00 Test Item Value Reference Range Interpretation Comments UA Blood (test code = Negative (04/11/22 6:55 UA Blood) PM) [facility] [id number] 23:55:00 Test Item Value Reference Range Interpretation Comments UA Urobilinogen (test code = UA 0.2 0.1-1.0 Urobilinogen) [facility] [id number] 23:55:00 Test Item Value Reference Range Interpretation Comments UA Nitrite (test code Negative (04/11/22 6:55 = UA Nitrite) PM) [facility] [id number] 23:55:00 Test Item Value Reference Range Interpretation Comments UA Leuk Est (test Negative (04/11/22 6:55 code = UA Leuk Est) PM) [facility] RadhaannGISELA AND [id number] 23:55:00 Test Item Value Reference Range Interpretation Comments UA Sq Epi (test code = UA Sq Occasional /LPF Epi) [facility] [id number] 23:55:00 Test Item Value Reference Range Interpretation Comments UA WBC (test code = no gt See_Comment [Automa fabiano message] The UA WBC) system which [employer] nerated this result transmit fabiano reference range : <=5. The reference range was not used to interpr et this result as aleks l/abnormal. [facility] [place] AND [id number] 23:55:00 Test Item Value Reference Range Interpretation Comments UA RBC (test code = no gt See_Comment [Automa fabiano message] The UA RBC) system which [employer] nerated this result transmit fabiano reference range : <=2. The reference range was not used to interpr et this result as aleks l/abnormal. [facility] [place] AND [id number] 23:55:00 Test Item Value Reference Range Interpretation Comments UA Bacteria (test code = UA Occasional /HPF Bacteria) [facility] [id number] 23:55:00 Test Item Value Reference Range Interpretation Comments UA Mucus (test code = UA Mucus) Few /LPF [facility] [id number] 23:20:33 Test Item Value Reference Range Interpretation [...] ligament and collateral vessels suggest SVC occlusion. [facility] [id number] 23:20:33 Test Item Value Reference Range Interpretation [...] ligament and collateral vessels suggest SVC occlusion. [id number] 23:20:33 Test Item Value Reference Range Interpretation [...] ligament and collateral vessels suggest SVC occlusion. [facility] [id number] 23:20:33 Test Item Value Reference Range Interpretation [...] ligament and collateral vessels suggest SVC occlusion. [facility] [id number] 23:20:33 Test Item Value Reference Range Interpretation [...] ligament and collateral vessels suggest SVC occlusion. [facility] [id number] 23:20:33 Test Item Value Reference Range Interpretation [...] ligament and collateral vessels suggest SVC occlusion. [id number] 23:20:33 Test Item Value Reference Range Interpretation [...] ligament and collateral vessels suggest SVC occlusion. [facility] [id number] 23:20:33 Test Item Value Reference Range Interpretation [...] ligament and collateral vessels suggest SVC occlusion. [facility] DallasOxdyuxmAXXQBX5102-22-23 23:20:33 Test Item Value Reference Range Interpretation [...] ligament and collateral vessels suggest SVC occlusion. [facility] [id number] 23:20:33 Test Item Value Reference Range Interpretation [...] ligament and collateral vessels suggest SVC occlusion. [facility] [id number] 23:20:33 Test Item Value Reference Range Interpretation [...] ligament and collateral vessels suggest SVC occlusion. [facility] [id number] 23:20:33 Test Item Value Reference Range Interpretation [...] ligament and collateral vessels suggest SVC occlusion. [facility] DallasWksxqfbHCEKMG6869-07-80 23:20:33 Test Item Value Reference Range Interpretation [...] ligament and collateral vessels suggest SVC occlusion. [facility] DallasCwredjfBUQCNE9231-26-40 23:20:33 Test Item Value Reference Range Interpretation [...] ligament and collateral vessels suggest SVC occlusion. [facility] HospitalGnbawzmYKRRGB6457-15-27 23:20:33 Test Item Value Reference Range Interpretation [...] ligament and collateral vessels suggest SVC occlusion. [facility] [id number] 23:20:33 Test Item Value Reference Range Interpretation [...] ligament and collateral vessels suggest SVC occlusion. [facility] Ho[id number] 23:20:33 Test Item Value Reference Range Interpretation [...] ligament and collateral vessels suggest SVC occlusion. [facility] DallasZpflvdgYTIJQR5040-06-73 23:20:33 Test Item Value Reference Range Interpretation [...] ligament and collateral vessels suggest SVC occlusion. [facility] DallasDwxrgfuDQNJJH6808-67-81 23:20:33 Test Item Value Reference Range Interpretation [...] ligament and collateral vessels suggest SVC occlusion. [facility] HospitalDcocsjoCTCJPU1307-66-23 23:20:33 Test Item Value Reference Range Interpretation [...] ligament and collateral vessels suggest SVC occlusion. [facility] DrkwtciUBJBWB0502-99-16 23:20:33 Test Item Value Reference Range Interpretation [...] ligament and collateral vessels suggest SVC occlusion. [facility] DallasBzntxpnNZUSUH2832-64-08 23:20:33 Test Item Value Reference Range Interpretation [...] ligament and collateral vessels suggest SVC occlusion. [facility] DallasZkhbojpUICZQU4280-72-37 23:20:33 Test Item Value Reference Range Interpretation [...] ligament and collateral vessels suggest SVC occlusion. [facility] DallasKxobqryMFJBOQ9782-67-13 23:20:33 Test Item Value Reference Range Interpretation [...] ligament and collateral vessels suggest SVC occlusion. [facility] DallasKhuwdaaRQDWYT1747-14-80 23:20:33 Test Item Value Reference Range Interpretation [...] ligament and collateral vessels suggest SVC occlusion. [facility] DallasKxkwnhrNUEQZN4918-36-60 23:20:33 Test Item Value Reference Range Interpretation [...] ligament and collateral vessels suggest SVC occlusion. [facility] [id number] 23:20:33 Test Item Value Reference Range Interpretation [...] ligament and collateral vessels suggest SVC occlusion. [facility] HospitalCmfnasvWRYZXL8104-67-61 23:20:33 Test Item Value Reference Range Interpretation [...] ligament and collateral vessels suggest SVC occlusion. [facility] HospitalXetmnchNRMHCN1886-58-68 23:20:33 Test Item Value Reference Range Interpretation [...] ligament and collateral vessels suggest SVC occlusion. [facility] DallasUsxchaiQKXVUH6521-61-87 23:20:33 Test Item Value Reference Range Interpretation [...] ligament and collateral vessels suggest SVC occlusion. [facility] [id number] 23:20:33 Test Item Value Reference Range Interpretation [...] ligament and collateral vessels suggest SVC occlusion. [facility]zbFPRMUK7530-[facility]-70 23:20:33 Test Item Value Reference Range Interpretation [...] ligament and collateral vessels suggest SVC occlusion. [facility] DallasVaihwqmZZFQFHKQHW2612-20-06 17:16:00 Test Item Value Reference Range Interpretation Comments Coronavirus (COVID-19) Not Detected OSCAR (test code = (04/11/22 12:16 PM) Coronavirus (COVID-19) OSCAR) [id number] 17:16:00 Test Item Value Reference Range Interpretation Comments Coronavirus (COVID-19) Not Detected OSCAR (test code = (04/11/22 12:16 PM) Coronavirus (COVID-19) OSCAR) [facility]2022-10-13 17:16:00 Test Item Value Reference Range Interpretation Comments Source Respiratory Nasophrngl Swb Panel PCR (test code = *NA*(04/11/22 12:16 Source Respiratory PM) Panel PCR) [facility]2022-10-13 17:16:00 Test Item Value Reference Range Interpretation Comments Influenza A PCR (test Negative *NA*(04/11/22 code = Influenza A PCR) 12:16 PM) [facility]2022-10-13 17:16:00 Test Item Value Reference Range Interpretation Comments Influenza B PCR (test Negative *NA*(04/11/22 code = Influenza B PCR) 12:16 PM) [facility]2022-10-13 17:16:00 Test Item Value Reference Range Interpretation Comments RSV PCR (test code = Negative *NA*(04/11/22 RSV PCR) 12:16 PM) [facility]2022-10-13 17:16:00 Test Item Value Reference Range Interpretation Comments Source Respiratory Nasophrngl Swb Panel PCR (test code = *NA*(04/11/22 12:16 Source Respiratory PM) Panel PCR) [place] [id number] 17:16:00 Test Item Value Reference Range Interpretation Comments Influenza A PCR (test Negative *NA*(04/11/22 code = Influenza A PCR) 12:16 PM) [place] [id number] 17:16:00 Test Item Value Reference Range Interpretation Comments Influenza B PCR (test Negative *NA*(04/11/22 code = Influenza B PCR) 12:16 PM) [facility]2022-10-13 17:16:00 Test Item Value Reference Range Interpretation Comments RSV PCR (test code = Negative *NA*(04/11/22 RSV PCR) 12:16 PM) [facility] [id number] 17:16:00 Test Item Value Reference Range Interpretation Comments Coronavirus (COVID-19) Not Detected OSCAR (test code = (04/11/22 12:16 PM) Coronavirus (COVID-19) OSCAR) [facility] [id number] 17:16:00 Test Item Value Reference Range Interpretation Comments Coronavirus (COVID-19) Not Detected OSCAR (test code = (04/11/22 12:16 PM) Coronavirus (COVID-19) OSCAR) [facility]2022-10-13 17:16:00 Test Item Value Reference Range Interpretation Comments Source Respiratory Nasophrngl Swb Panel PCR (test code = *NA*(04/11/22 12:16 Source Respiratory PM) Panel PCR) [facility]2022-10-13 17:16:00 Test Item Value Reference Range Interpretation Comments Influenza A PCR (test Negative *NA*(04/11/22 code = Influenza A PCR) 12:16 PM) [place] [id number] 17:16:00 Test Item Value Reference Range Interpretation Comments Influenza B PCR (test Negative *NA*(04/11/22 code = Influenza B PCR) 12:16 PM) [place] [id number] 17:16:00 Test Item Value Reference Range Interpretation Comments RSV PCR (test code = Negative *NA*(04/11/22 RSV PCR) 12:16 PM) [facility]2022-10-13 17:16:00 Test Item Value Reference Range Interpretation Comments Source Respiratory Nasophrngl Swb Panel PCR (test code = *NA*(04/11/22 12:16 Source Respiratory PM) Panel PCR) [facility] [id number] 17:16:00 Test Item Value Reference Range Interpretation Comments Influenza A PCR (test Negative *NA*(04/11/22 code = Influenza A PCR) 12:16 PM) [facility]2022-10-13 17:16:00 Test Item Value Reference Range Interpretation Comments Influenza B PCR (test Negative *NA*(04/11/22 code = Influenza B PCR) 12:16 PM) [facility]2022-10-13 17:16:00 Test Item Value Reference Range Interpretation Comments RSV PCR (test code = Negative *NA*(04/11/22 RSV PCR) 12:16 PM) [facility] [id number] 17:16:00 Test Item Value Reference Range Interpretation Comments Coronavirus (COVID-19) Not Detected OSCAR (test code = (04/11/22 12:16 PM) Coronavirus (COVID-19) OSCAR) [facility] Camp[id number] 17:16:00 Test Item Value Reference Range Interpretation Comments Coronavirus (COVID-19) Not Detected OSCAR (test code = (04/11/22 12:16 PM) Coronavirus (COVID-19) OSCAR) [facility]2022-10-13 17:16:00 Test Item Value Reference Range Interpretation Comments Source Respiratory Nasophrngl Swb Panel PCR (test code = *NA*(04/11/22 12:16 Source Respiratory PM) Panel PCR) [facility]2022-10-13 17:16:00 Test Item Value Reference Range Interpretation Comments Influenza A PCR (test Negative *NA*(04/11/22 code = Influenza A PCR) 12:16 PM) [facility] [id number] 17:16:00 Test Item Value Reference Range Interpretation Comments Influenza B PCR (test Negative *NA*(04/11/22 code = Influenza B PCR) 12:16 PM) [facility]2022-10-13 17:16:00 Test Item Value Reference Range Interpretation Comments RSV PCR (test code = Negative *NA*(04/11/22 RSV PCR) 12:16 PM) [facility] [id number] 17:16:00 Test Item Value Reference Range Interpretation Comments Source Respiratory Nasophrngl Swb Panel PCR (test code = *NA*(04/11/22 12:16 Source Respiratory PM) Panel PCR) [facility] [id number] 17:16:00 Test Item Value Reference Range Interpretation Comments Influenza A PCR (test Negative *NA*(04/11/22 code = Influenza A PCR) 12:16 PM) [facility] [id number] 17:16:00 Test Item Value Reference Range Interpretation Comments Influenza B PCR (test Negative *NA*(04/11/22 code = Influenza B PCR) 12:16 PM) [facility] [id number] 17:16:00 Test Item Value Reference Range Interpretation Comments RSV PCR (test code = Negative *NA*(04/11/22 RSV PCR) 12:16 PM) [facility] DallasVenyndyYTQQPCVKXL2775-94-03 17:16:00 Test Item Value Reference Range Interpretation Comments Coronavirus (COVID-19) Not Detected OSCAR (test code = (04/11/22 12:16 PM) Coronavirus (COVID-19) OCSAR) [facility] Dall[id number] 17:16:00 Test Item Value Reference Range Interpretation Comments Coronavirus (COVID-19) Not Detected OSCAR (test code = (04/11/22 12:16 PM) Coronavirus (COVID-19) OSCAR) [facility] [id number] 17:16:00 Test Item Value Reference Range Interpretation Comments Source Respiratory Nasophrngl Swb Panel PCR (test code = *NA*(04/11/22 12:16 Source Respiratory PM) Panel PCR) [facility] [id number] 17:16:00 Test Item Value Reference Range Interpretation Comments Influenza A PCR (test Negative *NA*(04/11/22 code = Influenza A PCR) 12:16 PM) [facility] [id number] 17:16:00 Test Item Value Reference Range Interpretation Comments Influenza B PCR (test Negative *NA*(04/11/22 code = Influenza B PCR) 12:16 PM) [facility]2022-10-13 17:16:00 Test Item Value Reference Range Interpretation Comments RSV PCR (test code = Negative *NA*(04/11/22 RSV PCR) 12:16 PM) [facility]2022-10-13 17:16:00 Test Item Value Reference Range Interpretation Comments Source Respiratory Nasophrngl Swb Panel PCR (test code = *NA*(04/11/22 12:16 Source Respiratory PM) Panel PCR) [facility]2022-10-13 17:16:00 Test Item Value Reference Range Interpretation Comments Influenza A PCR (test Negative *NA*(04/11/22 code = Influenza A PCR) 12:16 PM) [facility]2022-10-13 17:16:00 Test Item Value Reference Range Interpretation Comments Influenza B PCR (test Negative *NA*(04/11/22 code = Influenza B PCR) 12:16 PM) [facility]2022-10-13 17:16:00 Test Item Value Reference Range Interpretation Comments RSV PCR (test code = Negative *NA*(04/11/22 RSV PCR) 12:16 PM) [facility] CampusFlnhollFMDFAOQURV1442-87-73 17:16:00 Test Item Value Reference Range Interpretation Comments Coronavirus (COVID-19) Not Detected OSCAR (test code = (04/11/22 12:16 PM) Coronavirus (COVID-19) OSCAR) [facility] Ca[id number] 17:16:00 Test Item Value Reference Range Interpretation Comments Coronavirus (COVID-19) Not Detected OSCAR (test code = (04/11/22 12:16 PM) Coronavirus (COVID-19) OSCAR) [facility]2022-10-13 17:16:00 Test Item Value Reference Range Interpretation Comments Source Respiratory Nasophrngl Swb Panel PCR (test code = *NA*(04/11/22 12:16 Source Respiratory PM) Panel PCR) [facility]2022-10-13 17:16:00 Test Item Value Reference Range Interpretation Comments Influenza A PCR (test Negative *NA*(04/11/22 code = Influenza A PCR) 12:16 PM) [facility]2022-10-13 17:16:00 Test Item Value Reference Range Interpretation Comments Influenza B PCR (test Negative *NA*(04/11/22 code = Influenza B PCR) 12:16 PM) [facility] [id number] 17:16:00 Test Item Value Reference Range Interpretation Comments RSV PCR (test code = Negative *NA*(04/11/22 RSV PCR) 12:16 PM) [facility]2022-10-13 17:16:00 Test Item Value Reference Range Interpretation Comments Source Respiratory Nasophrngl Swb Panel PCR (test code = *NA*(04/11/22 12:16 Source Respiratory PM) Panel PCR) [facility]2022-10-13 17:16:00 Test Item Value Reference Range Interpretation Comments Influenza A PCR (test Negative *NA*(04/11/22 code = Influenza A PCR) 12:16 PM) [facility]2022-10-13 17:16:00 Test Item Value Reference Range Interpretation Comments Influenza B PCR (test Negative *NA*(04/11/22 code = Influenza B PCR) 12:16 PM) [facility]2022-10-13 17:16:00 Test Item Value Reference Range Interpretation Comments RSV PCR (test code = Negative *NA*(04/11/22 RSV PCR) 12:16 PM) [facility] [id number] 17:16:00 Test Item Value Reference Range Interpretation Comments Coronavirus (COVID-19) Not Detected OSCAR (test code = (04/11/22 12:16 PM) Coronavirus (COVID-19) OSCAR) [facility] [id number] 17:16:00 Test Item Value Reference Range Interpretation Comments Coronavirus (COVID-19) Not Detected OSCAR (test code = (04/11/22 12:16 PM) Coronavirus (COVID-19) OSCAR) [facility]2022-10-13 17:16:00 Test Item Value Reference Range Interpretation Comments Source Respiratory Nasophrngl Swb Panel PCR (test code = *NA*(04/11/22 12:16 Source Respiratory PM) Panel PCR) [facility]2022-10-13 17:16:00 Test Item Value Reference Range Interpretation Comments Influenza A PCR (test Negative *NA*(04/11/22 code = Influenza A PCR) 12:16 PM) [facility] [id number] 17:16:00 Test Item Value Reference Range Interpretation Comments Influenza B PCR (test Negative *NA*(04/11/22 code = Influenza B PCR) 12:16 PM) [place] [id number] 17:16:00 Test Item Value Reference Range Interpretation Comments RSV PCR (test code = Negative *NA*(04/11/22 RSV PCR) 12:16 PM) [place] [id number] 17:16:00 Test Item Value Reference Range Interpretation Comments Source Respiratory Nasophrngl Swb Panel PCR (test code = *NA*(04/11/22 12:16 Source Respiratory PM) Panel PCR) [place] [id number] 17:16:00 Test Item Value Reference Range Interpretation Comments Influenza A PCR (test Negative *NA*(04/11/22 code = Influenza A PCR) 12:16 PM) [facility]2022-10-13 17:16:00 Test Item Value Reference Range Interpretation Comments Influenza B PCR (test Negative *NA*(04/11/22 code = Influenza B PCR) 12:16 PM) [facility]2022-10-13 17:16:00 Test Item Value Reference Range Interpretation Comments RSV PCR (test code = Negative *NA*(04/11/22 RSV PCR) 12:16 PM) [facility] Camp[id number] 17:16:00 Test Item Value Reference Range Interpretation Comments Coronavirus (COVID-19) Not Detected OSCAR (test code = (04/11/22 12:16 PM) Coronavirus (COVID-19) OSCAR) [facility] CampusRptcdaqDIWDJOCIZH9598-37-86 17:16:00 Test Item Value Reference Range Interpretation Comments Coronavirus (COVID-19) Not Detected OSCAR (test code = (04/11/22 12:16 PM) Coronavirus (COVID-19) OSCAR) [facility]2022-10-13 17:16:00 Test Item Value Reference Range Interpretation Comments Source Respiratory Nasophrngl Swb Panel PCR (test code = *NA*(04/11/22 12:16 Source Respiratory PM) Panel PCR) [facility] [id number] 17:16:00 Test Item Value Reference Range Interpretation Comments Influenza A PCR (test Negative *NA*(04/11/22 code = Influenza A PCR) 12:16 PM) [place] [id number] 17:16:00 Test Item Value Reference Range Interpretation Comments Influenza B PCR (test Negative *NA*(04/11/22 code = Influenza B PCR) 12:16 PM) [facility]2022-10-13 17:16:00 Test Item Value Reference Range Interpretation Comments RSV PCR (test code = Negative *NA*(04/11/22 RSV PCR) 12:16 PM) [facility]2022-10-13 17:16:00 Test Item Value Reference Range Interpretation Comments Source Respiratory Nasophrngl Swb Panel PCR (test code = *NA*(04/11/22 12:16 Source Respiratory PM) Panel PCR) [facility]2022-10-13 17:16:00 Test Item Value Reference Range Interpretation Comments Influenza A PCR (test Negative *NA*(04/11/22 code = Influenza A PCR) 12:16 PM) [facility]2022-10-13 17:16:00 Test Item Value Reference Range Interpretation Comments Influenza B PCR (test Negative *NA*(04/11/22 code = Influenza B PCR) 12:16 PM) [facility]2022-10-13 17:16:00 Test Item Value Reference Range Interpretation Comments RSV PCR (test code = Negative *NA*(04/11/22 RSV PCR) 12:16 PM) [facility] CampusNpceqxwCNYFGPFRHJ1101-70-15 17:16:00 Test Item Value Reference Range Interpretation Comments Coronavirus (COVID-19) Not Detected OSCAR (test code = (04/11/22 12:16 PM) Coronavirus (COVID-19) OSCAR) [place] [id number] 17:16:00 Test Item Value Reference Range Interpretation Comments Coronavirus (COVID-19) Not Detected OSCAR (test code = (04/11/22 12:16 PM) Coronavirus (COVID-19) OSCAR) [place] [id number] 17:16:00 Test Item Value Reference Range Interpretation Comments Source Respiratory Nasophrngl Swb Panel PCR (test code = *NA*(04/11/22 12:16 Source Respiratory PM) Panel PCR) [facility]2022-10-13 17:16:00 Test Item Value Reference Range Interpretation Comments Influenza A PCR (test Negative *NA*(04/11/22 code = Influenza A PCR) 12:16 PM) [facility]2022-10-13 17:16:00 Test Item Value Reference Range Interpretation Comments Influenza B PCR (test Negative *NA*(04/11/22 code = Influenza B PCR) 12:16 PM) [facility]2022-10-13 17:16:00 Test Item Value Reference Range Interpretation Comments RSV PCR (test code = Negative *NA*(04/11/22 RSV PCR) 12:16 PM) [facility]2022-10-13 17:16:00 Test Item Value Reference Range Interpretation Comments Source Respiratory Nasophrngl Swb Panel PCR (test code = *NA*(04/11/22 12:16 Source Respiratory PM) Panel PCR) [facility]2022-10-13 17:16:00 Test Item Value Reference Range Interpretation Comments Influenza A PCR (test Negative *NA*(04/11/22 code = Influenza A PCR) 12:16 PM) [facility]2022-10-13 17:16:00 Test Item Value Reference Range Interpretation Comments Influenza B PCR (test Negative *NA*(04/11/22 code = Influenza B PCR) 12:16 PM) [facility]2022-10-13 17:16:00 Test Item Value Reference Range Interpretation Comments RSV PCR (test code = Negative *NA*(04/11/22 RSV PCR) 12:16 PM) [facility] CampusWythntlCFLBPYPTBE5685-71-28 17:16:00 Test Item Value Reference Range Interpretation Comments Coronavirus (COVID-19) Not Detected OSCAR (test code = (04/11/22 12:16 PM) Coronavirus (COVID-19) OSCAR) [facility] CampusYdhfejzYWEJLECBYP7913-99-56 17:16:00 Test Item Value Reference Range Interpretation Comments Coronavirus (COVID-19) Not Detected OSCAR (test code = (04/11/22 12:16 PM) Coronavirus (COVID-19) OSCAR) [facility]ann[facility] [id number] 17:16:00 Test Item Value Reference Range Interpretation Comments Source Respiratory Nasophrngl Swb Panel PCR (test code = *NA*(04/11/22 12:16 Source Respiratory PM) Panel PCR) [facility]IL[facility] [id number] 17:16:00 Test Item Value Reference Range Interpretation Comments Influenza A PCR (test Negative *NA*(04/11/22 code = Influenza A PCR) 12:16 PM) [facility]MO[facility] [id number] 17:16:00 Test Item Value Reference Range Interpretation Comments Influenza B PCR (test Negative *NA*(04/11/22 code = Influenza B PCR) 12:16 PM) [facility] [id number] 17:16:00 Test Item Value Reference Range Interpretation Comments RSV PCR (test code = Negative *NA*(04/11/22 RSV PCR) 12:16 PM) [facility] [id number] 17:16:00 Test Item Value Reference Range Interpretation Comments Source Respiratory Nasophrngl Swb Panel PCR (test code = *NA*(04/11/22 12:16 Source Respiratory PM) Panel PCR) [facility]IL[facility] [id number] 17:16:00 Test Item Value Reference Range Interpretation Comments Influenza A PCR (test Negative *NA*(04/11/22 code = Influenza A PCR) 12:16 PM) [facility] [id number] 17:16:00 Test Item Value Reference Range Interpretation Comments Influenza B PCR (test Negative *NA*(04/11/22 code = Influenza B PCR) 12:16 PM) [facility] [id number] 17:16:00 Test Item Value Reference Range Interpretation Comments RSV PCR (test code = Negative *NA*(04/11/22 RSV PCR) 12:16 PM) [facility] HospitalBihwvbjCYEARQREDN7438-88-34 17:16:00 Test Item Value Reference Range Interpretation Comments Coronavirus (COVID-19) Not Detected OSCAR (test code = (04/11/22 12:16 PM) Coronavirus (COVID-19) OSCAR) [facility] Camp[id number] 17:16:00 Test Item Value Reference Range Interpretation Comments Coronavirus (COVID-19) Not Detected OSCAR (test code = (04/11/22 12:16 PM) Coronavirus (COVID-19) OSCAR) [facility]LE[facility] [id number] 17:16:00 Test Item Value Reference Range Interpretation Comments Source Respiratory Nasophrngl Swb Panel PCR (test code = *NA*(04/11/22 12:16 Source Respiratory PM) Panel PCR) [facility]2022-10-13 17:16:00 Test Item Value Reference Range Interpretation Comments Influenza A PCR (test Negative *NA*(04/11/22 code = Influenza A PCR) 12:16 PM) [facility]2022-10-13 17:16:00 Test Item Value Reference Range Interpretation Comments Influenza B PCR (test Negative *NA*(04/11/22 code = Influenza B PCR) 12:16 PM) [facility]2022-10-13 17:16:00 Test Item Value Reference Range Interpretation Comments RSV PCR (test code = Negative *NA*(04/11/22 RSV PCR) 12:16 PM) [facility]2022-10-13 17:16:00 Test Item Value Reference Range Interpretation Comments Source Respiratory Nasophrngl Swb Panel PCR (test code = *NA*(04/11/22 12:16 Source Respiratory PM) Panel PCR) [facility]2022-10-13 17:16:00 Test Item Value Reference Range Interpretation Comments Influenza A PCR (test Negative *NA*(04/11/22 code = Influenza A PCR) 12:16 PM) [facility]2022-10-13 17:16:00 Test Item Value Reference Range Interpretation Comments Influenza B PCR (test Negative *NA*(04/11/22 code = Influenza B PCR) 12:16 PM) [facility]2022-10-13 17:16:00 Test Item Value Reference Range Interpretation Comments RSV PCR (test code = Negative *NA*(04/11/22 RSV PCR) 12:16 PM) [facility] Dall[id number] 17:16:00 Test Item Value Reference Range Interpretation Comments Coronavirus (COVID-19) Not Detected OSCAR (test code = (04/11/22 12:16 PM) Coronavirus (COVID-19) OSCAR) [facility] Hospit[id number] 17:16:00 Test Item Value Reference Range Interpretation Comments Coronavirus (COVID-19) Not Detected OSCAR (test code = (04/11/22 12:16 PM) Coronavirus (COVID-19) OSCAR) [facility] [id number] 17:16:00 Test Item Value Reference Range Interpretation Comments Source Respiratory Nasophrngl Swb Panel PCR (test code = *NA*(04/11/22 12:16 Source Respiratory PM) Panel PCR) [facility] [id number] 17:16:00 Test Item Value Reference Range Interpretation Comments Influenza A PCR (test Negative *NA*(04/11/22 code = Influenza A PCR) 12:16 PM) [facility]IL[facility] [id number] 17:16:00 Test Item Value Reference Range Interpretation Comments Influenza B PCR (test Negative *NA*(04/11/22 code = Influenza B PCR) 12:16 PM) [facility]IL[facility] [id number] 17:16:00 Test Item Value Reference Range Interpretation Comments RSV PCR (test code = Negative *NA*(04/11/22 RSV PCR) 12:16 PM) [facility]IL[facility] [id number] 17:16:00 Test Item Value Reference Range Interpretation Comments Source Respiratory Nasophrngl Swb Panel PCR (test code = *NA*(04/11/22 12:16 Source Respiratory PM) Panel PCR) [facility] [id number] 17:16:00 Test Item Value Reference Range Interpretation Comments Influenza A PCR (test Negative *NA*(04/11/22 code = Influenza A PCR) 12:16 PM) [facility]IL[facility] [id number] 17:16:00 Test Item Value Reference Range Interpretation Comments Influenza B PCR (test Negative *NA*(04/11/22 code = Influenza B PCR) 12:16 PM) [facility] [id number] 17:16:00 Test Item Value Reference Range Interpretation Comments RSV PCR (test code = Negative *NA*(04/11/22 RSV PCR) 12:16 PM) [facility] [id number] 17:16:00 Test Item Value Reference Range Interpretation Comments Coronavirus (COVID-19) Not Detected OSCAR (test code = (04/11/22 12:16 PM) Coronavirus (COVID-19) OSCAR) [facility] [id number] 17:16:00 Test Item Value Reference Range Interpretation Comments Coronavirus (COVID-19) Not Detected OSCAR (test code = (04/11/22 12:16 PM) Coronavirus (COVID-19) OSCAR) [facility]2022-10-13 17:16:00 Test Item Value Reference Range Interpretation Comments Source Respiratory Nasophrngl Swb Panel PCR (test code = *NA*(04/11/22 12:16 Source Respiratory PM) Panel PCR) [facility]2022-10-13 17:16:00 Test Item Value Reference Range Interpretation Comments Influenza A PCR (test Negative *NA*(04/11/22 code = Influenza A PCR) 12:16 PM) [facility]2022-10-13 17:16:00 Test Item Value Reference Range Interpretation Comments Influenza B PCR (test Negative *NA*(04/11/22 code = Influenza B PCR) 12:16 PM) [facility]2022-10-13 17:16:00 Test Item Value Reference Range Interpretation Comments RSV PCR (test code = Negative *NA*(04/11/22 RSV PCR) 12:16 PM) [facility] [id number] 17:16:00 Test Item Value Reference Range Interpretation Comments Source Respiratory Nasophrngl Swb Panel PCR (test code = *NA*(04/11/22 12:16 Source Respiratory PM) [facility]) [id number] 17:16:00 Test Item Value Reference Range Interpretation Comments Influenza A PCR (test Negative *NA*(04/11/22 code = Influenza A PCR) 12:16 PM) [facility] [id number] 17:16:00 Test Item Value Reference Range Interpretation Comments Influenza B PCR (test Negative *NA*(04/11/22 code = Influenza B PCR) 12:16 PM) [facility]2022-10-13 17:16:00 Test Item Value Reference Range Interpretation Comments RSV PCR (test code = Negative *NA*(04/11/22 RSV PCR) 12:16 PM) [id number] 17:16:00 Test Item Value Reference Range Interpretation Comments Coronavirus (COVID-19) Not Detected OSCAR (test code = (04/11/22 12:16 PM) Coronavirus (COVID-19) OSCAR) [facility] CampusX[id number] 17:16:00 Test Item Value Reference Range Interpretation Comments Coronavirus (COVID-19) Not Detected OSCAR (test code = (04/11/22 12:16 PM) Coronavirus (COVID-19) OSCAR) [facility]2022-10-13 17:16:00 Test Item Value Reference Range Interpretation Comments Source Respiratory Nasophrngl Swb Panel PCR (test code = *NA*(04/11/22 12:16 Source Respiratory PM) Panel PCR) [facility]2022-10-13 17:16:00 Test Item Value Reference Range Interpretation Comments Influenza A PCR (test Negative *NA*(04/11/22 code = Influenza A PCR) 12:16 PM) [facility]2022-10-13 17:16:00 Test Item Value Reference Range Interpretation Comments Influenza B PCR (test Negative *NA*(04/11/22 code = Influenza B PCR) 12:16 PM) [facility]2022-10-13 17:16:00 Test Item Value Reference Range Interpretation Comments RSV PCR (test code = Negative *NA*(04/11/22 RSV PCR) 12:16 PM) [facility]2022-10-13 17:16:00 Test Item Value Reference Range Interpretation Comments Source Respiratory Nasophrngl Swb Panel PCR (test code = *NA*(04/11/22 12:16 Source Respiratory PM) Panel PCR) [facility]2022-10-13 17:16:00 Test Item Value Reference Range Interpretation Comments Influenza A PCR (test Negative *NA*(04/11/22 code = Influenza A PCR) 12:16 PM) [facility]2022-10-13 17:16:00 Test Item Value Reference Range Interpretation Comments Influenza B PCR (test Negative *NA*(04/11/22 code = Influenza B PCR) 12:16 PM) [facility]2022-10-13 17:16:00 Test Item Value Reference Range Interpretation Comments RSV PCR (test code = Negative *NA*(04/11/22 RSV PCR) 12:16 PM) [facility] [id number] 17:16:00 Test Item Value Reference Range Interpretation Comments Coronavirus (COVID-19) Not Detected OSCAR (test code = (04/11/22 12:16 PM) Coronavirus (COVID-19) OSCAR) [facility] [id number] 17:16:00 Test Item Value Reference Range Interpretation Comments Coronavirus (COVID-19) Not Detected OSCAR (test code = (04/11/22 12:16 PM) Coronavirus (COVID-19) OSCAR) [facility]2022-10-13 17:16:00 Test Item Value Reference Range Interpretation Comments Source Respiratory Nasophrngl Swb Panel PCR (test code = *NA*(04/11/22 12:16 Source Respiratory PM) Panel PCR) [facility]2022-10-13 17:16:00 Test Item Value Reference Range Interpretation Comments Influenza A PCR (test Negative *NA*(04/11/22 code = Influenza A PCR) 12:16 PM) [facility]2022-10-13 17:16:00 Test Item Value Reference Range Interpretation Comments Influenza B PCR (test Negative *NA*(04/11/22 code = Influenza B PCR) 12:16 PM) [facility]2022-10-13 17:16:00 Test Item Value Reference Range Interpretation Comments RSV PCR (test code = Negative *NA*(04/11/22 RSV PCR) 12:16 PM) [place] [id number] 17:16:00 Test Item Value Reference Range Interpretation Comments Source Respiratory Nasophrngl Swb Panel PCR (test code = *NA*(04/11/22 12:16 Source Respiratory PM) Panel PCR) [facility]2022-10-13 17:16:00 Test Item Value Reference Range Interpretation Comments Influenza A PCR (test Negative *NA*(04/11/22 code = Influenza A PCR) 12:16 PM) [facility] [id number] 17:16:00 Test Item Value Reference Range Interpretation Comments Influenza B PCR (test Negative *NA*(04/11/22 code = Influenza B PCR) 12:16 PM) [facility] [id number] 17:16:00 Test Item Value Reference Range Interpretation Comments RSV PCR (test code = Negative *NA*(04/11/22 RSV PCR) 12:16 PM) [facility] [id number] 17:16:00 Test Item Value Reference Range Interpretation Comments Coronavirus (COVID-19) Not Detected OSCAR (test code = (04/11/22 12:16 PM) Coronavirus (COVID-19) OSCAR) [facility] CampusSmusnadDRFHDLEFED9467-06-65 17:16:00 Test Item Value Reference Range Interpretation Comments Coronavirus (COVID-19) Not Detected OSCAR (test code = (04/11/22 12:16 PM) Coronavirus (COVID-19) OSCAR) [facility]2022-10-13 17:16:00 Test Item Value Reference Range Interpretation Comments Source Respiratory Nasophrngl Swb Panel PCR (test code = *NA*(04/11/22 12:16 Source Respiratory PM) Panel PCR) [facility]2022-10-13 17:16:00 Test Item Value Reference Range Interpretation Comments Influenza A PCR (test Negative *NA*(04/11/22 code = Influenza A PCR) 12:16 PM) [facility] [id number] 17:16:00 Test Item Value Reference Range Interpretation Comments Influenza B PCR (test Negative *NA*(04/11/22 code = Influenza B PCR) 12:16 PM) [facility] [id number] 17:16:00 Test Item Value Reference Range Interpretation Comments RSV PCR (test code = Negative *NA*(04/11/22 RSV PCR) 12:16 PM) [facility] [id number] 17:16:00 Test Item Value Reference Range Interpretation Comments Source Respiratory Nasophrngl Swb Panel PCR (test code = *NA*(04/11/22 12:16 Source Respiratory PM) Panel PCR) [facility] [id number] 17:16:00 Test Item Value Reference Range Interpretation Comments Influenza A PCR (test Negative *NA*(04/11/22 code = Influenza A PCR) 12:16 PM) [facility] [id number] 17:16:00 Test Item Value Reference Range Interpretation Comments Influenza B PCR (test Negative *NA*(04/11/22 code = Influenza B PCR) 12:16 PM) [facility]2022-10-13 17:16:00 Test Item Value Reference Range Interpretation Comments RSV PCR (test code = Negative *NA*(04/11/22 RSV PCR) 12:16 PM) [facility] [id number] 17:16:00 Test Item Value Reference Range Interpretation Comments Coronavirus (COVID-19) Not Detected OSCAR (test code = (04/11/22 12:16 PM) Coronavirus (COVID-19) OSCAR) [facility] [id number] 17:16:00 Test Item Value Reference Range Interpretation Comments Coronavirus (COVID-19) Not Detected OSCAR (test code = (04/11/22 12:16 PM) Coronavirus (COVID-19) OSCRA) [facility]2022-10-13 17:16:00 Test Item Value Reference Range Interpretation Comments Source Respiratory Nasophrngl Swb Panel PCR (test code = *NA*(04/11/22 12:16 Source Respiratory PM) Panel PCR) [facility]2022-10-13 17:16:00 Test Item Value Reference Range Interpretation Comments Influenza A PCR (test Negative *NA*(04/11/22 code = Influenza A PCR) 12:16 PM) [facility] [id number] 17:16:00 Test Item Value Reference Range Interpretation Comments Influenza B PCR (test Negative *NA*(04/11/22 code = Influenza B PCR) 12:16 PM) [facility]2022-10-13 17:16:00 Test Item Value Reference Range Interpretation Comments RSV PCR (test code = Negative *NA*(04/11/22 RSV PCR) 12:16 PM) [facility] [id number] 17:16:00 Test Item Value Reference Range Interpretation Comments Source Respiratory Nasophrngl Swb Panel PCR (test code = *NA*(04/11/22 12:16 Source Respiratory PM) Panel PCR) [facility]2022-10-13 17:16:00 Test Item Value Reference Range Interpretation Comments Influenza A PCR (test Negative *NA*(04/11/22 code = Influenza A PCR) 12:16 PM) [facility] [id number] 17:16:00 Test Item Value Reference Range Interpretation Comments Influenza B PCR (test Negative *NA*(04/11/22 code = Influenza B PCR) 12:16 PM) [facility]2022-10-13 17:16:00 Test Item Value Reference Range Interpretation Comments RSV PCR (test code = Negative *NA*(04/11/22 RSV PCR) 12:16 PM) [facility] DallasZmpevghHGNROJKYIA2601-21-02 17:16:00 Test Item Value Reference Range Interpretation Comments Coronavirus (COVID-19) Not Detected OSCAR (test code = (04/11/22 12:16 PM) Coronavirus (COVID-19) OSCAR) [facility] [id number] 17:16:00 Test Item Value Reference Range Interpretation Comments Coronavirus (COVID-19) Not Detected OSCAR (test code = (04/11/22 12:16 PM) Coronavirus (COVID-19) OSCAR) [facility]2022-10-13 17:16:00 Test Item Value Reference Range Interpretation Comments Source Respiratory Nasophrngl Swb Panel PCR (test code = *NA*(04/11/22 12:16 Source Respiratory PM) Panel PCR) [facility]2022-10-13 17:16:00 Test Item Value Reference Range Interpretation Comments Influenza A PCR (test Negative *NA*(04/11/22 code = Influenza A PCR) 12:16 PM) [facility] [id number] 17:16:00 Test Item Value Reference Range Interpretation Comments Influenza B PCR (test Negative *NA*(04/11/22 code = Influenza B PCR) 12:16 PM) [id number] 17:16:00 Test Item Value Reference Range Interpretation Comments RSV PCR (test code = Negative *NA*(04/11/22 RSV PCR) 12:16 PM) [place] [id number] 17:16:00 Test Item Value Reference Range Interpretation Comments Source Respiratory Nasophrngl Swb Panel PCR (test code = *NA*(04/11/22 12:16 Source Respiratory PM) Panel PCR) [facility]2022-10-13 17:16:00 Test Item Value Reference Range Interpretation Comments Influenza A PCR (test Negative *NA*(04/11/22 code = Influenza A PCR) 12:16 PM) [place] [id number] 17:16:00 Test Item Value Reference Range Interpretation Comments Influenza B PCR (test Negative *NA*(04/11/22 code = Influenza B PCR) 12:16 PM) [facility]2022-10-13 17:16:00 Test Item Value Reference Range Interpretation Comments RSV PCR (test code = Negative *NA*(04/11/22 RSV PCR) 12:16 PM) [facility] Camp[id number] 17:16:00 Test Item Value Reference Range Interpretation Comments Coronavirus (COVID-19) Not Detected OSCAR (test code = (04/11/22 12:16 PM) Coronavirus (COVID-19) OSCAR) [facility] Camp[id number] 17:16:00 Test Item Value Reference Range Interpretation Comments Coronavirus (COVID-19) Not Detected OSCAR (test code = (04/11/22 12:16 PM) Coronavirus (COVID-19) OSCAR) [facility]2022-10-13 17:16:00 Test Item Value Reference Range Interpretation Comments Source Respiratory Nasophrngl Swb Panel PCR (test code = *NA*(04/11/22 12:16 Source Respiratory PM) Panel PCR) [facility]2022-10-13 17:16:00 Test Item Value Reference Range Interpretation Comments Influenza A PCR (test Negative *NA*(04/11/22 code = Influenza A PCR) 12:16 PM) [facility]2022-10-13 17:16:00 Test Item Value Reference Range Interpretation Comments Influenza B PCR (test Negative *NA*(04/11/22 code = Influenza B PCR) 12:16 PM) [facility] [id number] 17:16:00 Test Item Value Reference Range Interpretation Comments RSV PCR (test code = Negative *NA*(04/11/22 RSV PCR) 12:16 PM) [facility]2022-10-13 17:16:00 Test Item Value Reference Range Interpretation Comments Source Respiratory Nasophrngl Swb Panel PCR (test code = *NA*(04/11/22 12:16 Source Respiratory PM) Panel PCR) [facility]2022-10-13 17:16:00 Test Item Value Reference Range Interpretation Comments Influenza A PCR (test Negative *NA*(04/11/22 code = Influenza A PCR) 12:16 PM) [facility]2022-10-13 17:16:00 Test Item Value Reference Range Interpretation Comments Influenza B PCR (test Negative *NA*(04/11/22 code = Influenza B PCR) 12:16 PM) [facility]2022-10-13 17:16:00 Test Item Value Reference Range Interpretation Comments RSV PCR (test code = Negative *NA*(04/11/22 RSV PCR) 12:16 PM) [facility] [id number] 17:16:00 Test Item Value Reference Range Interpretation Comments Coronavirus (COVID-19) Not Detected OSCAR (test code = (04/11/22 12:16 PM) Coronavirus (COVID-19) OSCAR) [facility] [id number] 17:16:00 Test Item Value Reference Range Interpretation Comments Coronavirus (COVID-19) Not Detected OSCAR (test code = (04/11/22 12:16 PM) Coronavirus (COVID-19) OSCAR) [facility]2022-10-13 17:16:00 Test Item Value Reference Range Interpretation Comments Source Respiratory Nasophrngl Swb Panel PCR (test code = *NA*(04/11/22 12:16 Source Respiratory PM) Panel PCR) [facility]2022-10-13 17:16:00 Test Item Value Reference Range Interpretation Comments Influenza A PCR (test Negative *NA*(04/11/22 code = Influenza A PCR) 12:16 PM) [place] [id number] 17:16:00 Test Item Value Reference Range Interpretation Comments Influenza B PCR (test Negative *NA*(04/11/22 code = Influenza B PCR) 12:16 PM) [place] [id number] 17:16:00 Test Item Value Reference Range Interpretation Comments RSV PCR (test code = Negative *NA*(04/11/22 RSV PCR) 12:16 PM) [place] [id number] 17:16:00 Test Item Value Reference Range Interpretation Comments Source Respiratory Nasophrngl Swb Panel PCR (test code = *NA*(04/11/22 12:16 Source Respiratory PM) Panel PCR) [place] [id number] 17:16:00 Test Item Value Reference Range Interpretation Comments Influenza A PCR (test Negative *NA*(04/11/22 code = Influenza A PCR) 12:16 PM) [place] [id number] 17:16:00 Test Item Value Reference Range Interpretation Comments Influenza B PCR (test Negative *NA*(04/11/22 code = Influenza B PCR) 12:16 PM) [facility]2022-10-13 17:16:00 Test Item Value Reference Range Interpretation Comments RSV PCR (test code = Negative *NA*(04/11/22 RSV PCR) 12:16 PM) [facility] C[id number] 17:16:00 Test Item Value Reference Range Interpretation Comments Coronavirus (COVID-19) Not Detected OSCAR (test code = (04/11/22 12:16 PM) Coronavirus (COVID-19) OSCAR) [place] [id number] 17:16:00 Test Item Value Reference Range Interpretation Comments Coronavirus (COVID-19) Not Detected OSCAR (test code = (04/11/22 12:16 PM) Coronavirus (COVID-19) OSCAR) [place] [id number] 17:16:00 Test Item Value Reference Range Interpretation Comments Source Respiratory Nasophrngl Swb Panel PCR (test code = *NA*(04/11/22 12:16 Source Respiratory PM) Panel PCR) [facility]2022-10-13 17:16:00 Test Item Value Reference Range Interpretation Comments Influenza A PCR (test Negative *NA*(04/11/22 code = Influenza A PCR) 12:16 PM) [facility]2022-10-13 17:16:00 Test Item Value Reference Range Interpretation Comments Influenza B PCR (test Negative *NA*(04/11/22 code = Influenza B PCR) 12:16 PM) [place] [id number] 17:16:00 Test Item Value Reference Range Interpretation Comments RSV PCR (test code = Negative *NA*(04/11/22 RSV PCR) 12:16 PM) [facility]2022-10-13 17:16:00 Test Item Value Reference Range Interpretation Comments Source Respiratory Nasophrngl Swb Panel PCR (test code = *NA*(04/11/22 12:16 Source Respiratory PM) Panel PCR) [facility]2022-10-13 17:16:00 Test Item Value Reference Range Interpretation Comments Influenza A PCR (test Negative *NA*(04/11/22 code = Influenza A PCR) 12:16 PM) [facility]2022-10-13 17:16:00 Test Item Value Reference Range Interpretation Comments Influenza B PCR (test Negative *NA*(04/11/22 code = Influenza B PCR) 12:16 PM) [facility]2022-10-13 17:16:00 Test Item Value Reference Range Interpretation Comments RSV PCR (test code = Negative *NA*(04/11/22 RSV PCR) 12:16 PM) [facility] CampusZaikmntILHPCWQROJ7953-00-50 17:16:00 Test Item Value Reference Range Interpretation Comments Coronavirus (COVID-19) Not Detected OSCAR (test code = (04/11/22 12:16 PM) Coronavirus (COVID-19) OSCAR) [facility] [id number] 17:16:00 Test Item Value Reference Range Interpretation Comments Coronavirus (COVID-19) Not Detected OSCAR (test code = (04/11/22 12:16 PM) Coronavirus (COVID-19) OSCAR) [facility]2022-10-13 17:16:00 Test Item Value Reference Range Interpretation Comments Source Respiratory Nasophrngl Swb Panel PCR (test code = *NA*(04/11/22 12:16 Source Respiratory PM) Panel PCR) [facility]2022-10-13 17:16:00 Test Item Value Reference Range Interpretation Comments Influenza A PCR (test Negative *NA*(04/11/22 code = Influenza A PCR) 12:16 PM) [facility]2022-10-13 17:16:00 Test Item Value Reference Range Interpretation Comments Influenza B PCR (test Negative *NA*(04/11/22 code = Influenza B PCR) 12:16 PM) [facility]2022-10-13 17:16:00 Test Item Value Reference Range Interpretation Comments RSV PCR (test code = Negative *NA*(04/11/22 RSV PCR) 12:16 PM) [facility]2022-10-13 17:16:00 Test Item Value Reference Range Interpretation Comments Source Respiratory Nasophrngl Swb Panel PCR (test code = *NA*(04/11/22 12:16 Source Respiratory PM) Panel PCR) [facility]2022-10-13 17:16:00 Test Item Value Reference Range Interpretation Comments Influenza A PCR (test Negative *NA*(04/11/22 code = Influenza A PCR) 12:16 PM) [place] [id number] 17:16:00 Test Item Value Reference Range Interpretation Comments Influenza B PCR (test Negative *NA*(04/11/22 code = Influenza B PCR) 12:16 PM) [facility]2022-10-13 17:16:00 Test Item Value Reference Range Interpretation Comments RSV PCR (test code = Negative *NA*(04/11/22 RSV PCR) 12:16 PM) [facility] Camp[id number] 17:16:00 Test Item Value Reference Range Interpretation Comments Coronavirus (COVID-19) Not Detected OSCAR (test code = (04/11/22 12:16 PM) Coronavirus (COVID-19) OSCAR) [facility] CampusK[id number] 17:16:00 Test Item Value Reference Range Interpretation Comments Coronavirus (COVID-19) Not Detected OSCAR (test code = (04/11/22 12:16 PM) Coronavirus (COVID-19) OSCAR) [facility] [id number] 17:16:00 Test Item Value Reference Range Interpretation Comments Source Respiratory Nasophrngl Swb Panel PCR (test code = *NA*(04/11/22 12:16 Source Respiratory PM) Panel PCR) [facility] [id number] 17:16:00 Test Item Value Reference Range Interpretation Comments Influenza A PCR (test Negative *NA*(04/11/22 code = Influenza A PCR) 12:16 PM) [facility] [id number] 17:16:00 Test Item Value Reference Range Interpretation Comments Influenza B PCR (test Negative *NA*(04/11/22 code = Influenza B PCR) 12:16 PM) [facility] [id number] 17:16:00 Test Item Value Reference Range Interpretation Comments RSV PCR (test code = Negative *NA*(04/11/22 RSV PCR) 12:16 PM) [facility] [id number] 17:16:00 Test Item Value Reference Range Interpretation Comments Source Respiratory Nasophrngl Swb Panel PCR (test code = *NA*(04/11/22 12:16 Source Respiratory PM) Panel PCR) [facility]2022-10-13 17:16:00 Test Item Value Reference Range Interpretation Comments Influenza A PCR (test Negative *NA*(04/11/22 code = Influenza A PCR) 12:16 PM) [facility] [id number] 17:16:00 Test Item Value Reference Range Interpretation Comments Influenza B PCR (test Negative *NA*(04/11/22 code = Influenza B PCR) 12:16 PM) [facility] [id number] 17:16:00 Test Item Value Reference Range Interpretation Comments RSV PCR (test code = Negative *NA*(04/11/22 RSV PCR) 12:16 PM) [facility] HospitalTprvtrrDGAUXAWCIE4877-30-27 17:16:00 Test Item Value Reference Range Interpretation Comments Coronavirus (COVID-19) Not Detected OSCAR (test code = (04/11/22 12:16 PM) Coronavirus (COVID-19) OSCAR) [facility] CampusZpyrxhnQMJXMJYVRE4609-31-18 17:16:00 Test Item Value Reference Range Interpretation Comments Coronavirus (COVID-19) Not Detected OSCAR (test code = (04/11/22 12:16 PM) Coronavirus (COVID-19) OSCAR) [facility]2022-10-13 17:16:00 Test Item Value Reference Range Interpretation Comments Source Respiratory Nasophrngl Swb Panel PCR (test code = *NA*(04/11/22 12:16 Source Respiratory PM) Panel PCR) [facility]2022-10-13 17:16:00 Test Item Value Reference Range Interpretation Comments Influenza A PCR (test Negative *NA*(04/11/22 code = Influenza A PCR) 12:16 PM) [facility]2022-10-13 17:16:00 Test Item Value Reference Range Interpretation Comments Influenza B PCR (test Negative *NA*(04/11/22 code = Influenza B PCR) 12:16 PM) [facility]2022-10-13 17:16:00 Test Item Value Reference Range Interpretation Comments RSV PCR (test code = Negative *NA*(04/11/22 RSV PCR) 12:16 PM) [facility]2022-10-13 17:16:00 Test Item Value Reference Range Interpretation Comments Source Respiratory Nasophrngl Swb Panel PCR (test code = *NA*(04/11/22 12:16 Source Respiratory PM) Panel PCR) [facility]2022-10-13 17:16:00 Test Item Value Reference Range Interpretation Comments Influenza A PCR (test Negative *NA*(04/11/22 code = Influenza A PCR) 12:16 PM) [facility]2022-10-13 17:16:00 Test Item Value Reference Range Interpretation Comments Influenza B PCR (test Negative *NA*(04/11/22 code = Influenza B PCR) 12:16 PM) [place] [id number] 17:16:00 Test Item Value Reference Range Interpretation Comments RSV PCR (test code = Negative *NA*(04/11/22 RSV PCR) 12:16 PM) [facility] CampusLumsqdhFPTNNXRKCX6611-88-78 17:16:00 Test Item Value Reference Range Interpretation Comments Coronavirus (COVID-19) Not Detected OSCAR (test code = (04/11/22 12:16 PM) Coronavirus (COVID-19) OSCAR) [facility] Hospit[id number] 17:16:00 Test Item Value Reference Range Interpretation Comments Coronavirus (COVID-19) Not Detected OSCAR (test code = (04/11/22 12:16 PM) Coronavirus (COVID-19) OSCAR) [facility] [id number] 17:16:00 Test Item Value Reference Range Interpretation Comments Source Respiratory Nasophrngl Swb Panel PCR (test code = *NA*(04/11/22 12:16 Source Respiratory PM) Panel PCR) [facility] [id number] 17:16:00 Test Item Value Reference Range Interpretation Comments Influenza A PCR (test Negative *NA*(04/11/22 code = Influenza A PCR) 12:16 PM) [facility] [id number] 17:16:00 Test Item Value Reference Range Interpretation Comments Influenza B PCR (test Negative *NA*(04/11/22 code = Influenza B PCR) 12:16 PM) [facility] [id number] 17:16:00 Test Item Value Reference Range Interpretation Comments RSV PCR (test code = Negative *NA*(04/11/22 RSV PCR) 12:16 PM) [facility] [id number] 17:16:00 Test Item Value Reference Range Interpretation Comments Source Respiratory Nasophrngl Swb Panel PCR (test code = *NA*(04/11/22 12:16 Source Respiratory PM) Panel PCR) [facility] [id number] 17:16:00 Test Item Value Reference Range Interpretation Comments Influenza A PCR (test Negative *NA*(04/11/22 code = Influenza A PCR) 12:16 PM) [facility] [id number] 17:16:00 Test Item Value Reference Range Interpretation Comments Influenza B PCR (test Negative *NA*(04/11/22 code = Influenza B PCR) 12:16 PM) [facility] [id number] 17:16:00 Test Item Value Reference Range Interpretation Comments RSV PCR (test code = Negative *NA*(04/11/22 RSV PCR) 12:16 PM) [facility] DallasGkkyjifXQRXBEXNPM9851-36-56 17:16:00 Test Item Value Reference Range Interpretation Comments Coronavirus (COVID-19) Not Detected OSCAR (test code = (04/11/22 12:16 PM) Coronavirus (COVID-19) OSCAR) [facility] DallasTzcjbonXYVOHUHMYY9406-11-47 17:16:00 Test Item Value Reference Range Interpretation Comments Coronavirus (COVID-19) Not Detected OSCAR (test code = (04/11/22 12:16 PM) Coronavirus (COVID-19) OSCAR) [facility]2022-10-13 17:16:00 Test Item Value Reference Range Interpretation Comments Source Respiratory Nasophrngl Swb Panel PCR (test code = *NA*(04/11/22 12:16 Source Respiratory PM) Panel PCR) [facility]2022-10-13 17:16:00 Test Item Value Reference Range Interpretation Comments Influenza A PCR (test Negative *NA*(04/11/22 code = Influenza A PCR) 12:16 PM) [place] [id number] 17:16:00 Test Item Value Reference Range Interpretation Comments Influenza B PCR (test Negative *NA*(04/11/22 code = Influenza B PCR) 12:16 PM) [facility]2022-10-13 17:16:00 Test Item Value Reference Range Interpretation Comments RSV PCR (test code = Negative *NA*(04/11/22 RSV PCR) 12:16 PM) [facility] [id number] 17:16:00 Test Item Value Reference Range Interpretation Comments Source Respiratory Nasophrngl Swb Panel PCR (test code = *NA*(04/11/22 12:16 Source Respiratory PM) Panel PCR) [facility]2022-10-13 17:16:00 Test Item Value Reference Range Interpretation Comments Influenza A PCR (test Negative *NA*(04/11/22 code = Influenza A PCR) 12:16 PM) [facility] [id number] 17:16:00 Test Item Value Reference Range Interpretation Comments Influenza B PCR (test Negative *NA*(04/11/22 code = Influenza B PCR) 12:16 PM) [facility] [id number] 17:16:00 Test Item Value Reference Range Interpretation Comments RSV PCR (test code = Negative *NA*(04/11/22 RSV PCR) 12:16 PM) [facility] DallasKxjjpddSWMUFSOAWS2130-75-35 17:16:00 Test Item Value Reference Range Interpretation Comments Coronavirus (COVID-19) Not Detected OSCAR (test code = (04/11/22 12:16 PM) Coronavirus (COVID-19) OSCAR) [facility] DallasAmnwdnbHPQZONZHBS5213-70-40 17:16:00 Test Item Value Reference Range Interpretation Comments Coronavirus (COVID-19) Not Detected OSCAR (test code = (04/11/22 12:16 PM) Coronavirus (COVID-19) OSCAR) [facility]2022-10-13 17:16:00 Test Item Value Reference Range Interpretation Comments Source Respiratory Nasophrngl Swb Panel PCR (test code = *NA*(04/11/22 12:16 Source Respiratory PM) Panel PCR) [facility]2022-10-13 17:16:00 Test Item Value Reference Range Interpretation Comments Influenza A PCR (test Negative *NA*(04/11/22 code = Influenza A PCR) 12:16 PM) [facility]2022-10-13 17:16:00 Test Item Value Reference Range Interpretation Comments Influenza B PCR (test Negative *NA*(04/11/22 code = Influenza B PCR) 12:16 PM) [facility]2022-10-13 17:16:00 Test Item Value Reference Range Interpretation Comments RSV PCR (test code = Negative *NA*(04/11/22 RSV PCR) 12:16 PM) [facility]2022-10-13 17:16:00 Test Item Value Reference Range Interpretation Comments Source Respiratory Nasophrngl Swb Panel PCR (test code = *NA*(04/11/22 12:16 Source Respiratory PM) Panel PCR) [facility]2022-10-13 17:16:00 Test Item Value Reference Range Interpretation Comments Influenza A PCR (test Negative *NA*(04/11/22 code = Influenza A PCR) 12:16 PM) [id number] 17:16:00 Test Item Value Reference Range Interpretation Comments Influenza B PCR (test Negative *NA*(04/11/22 code = Influenza B PCR) 12:16 PM) [place] [id number] 17:16:00 Test Item Value Reference Range Interpretation Comments RSV PCR (test code = Negative *NA*(04/11/22 RSV PCR) 12:16 PM) [facility] CampusDjoskejVUMEGPAQNW6963-12-60 17:16:00 Test Item Value Reference Range Interpretation Comments Coronavirus (COVID-19) Not Detected OSCAR (test code = (04/11/22 12:16 PM) Coronavirus (COVID-19) OSCAR) [facility] CampusYodwctzJWDODFISYF6456-26-22 17:16:00 Test Item Value Reference Range Interpretation Comments Coronavirus (COVID-19) Not Detected OSCAR (test code = (04/11/22 12:16 PM) Coronavirus (COVID-19) OSCAR) [facility]2022-10-13 17:16:00 Test Item Value Reference Range Interpretation Comments Source Respiratory Nasophrngl Swb Panel PCR (test code = *NA*(04/11/22 12:16 Source Respiratory PM) Panel PCR) [facility]2022-10-13 17:16:00 Test Item Value Reference Range Interpretation Comments Influenza A PCR (test Negative *NA*(04/11/22 code = Influenza A PCR) 12:16 PM) [facility]2022-10-13 17:16:00 Test Item Value Reference Range Interpretation Comments Influenza B PCR (test Negative *NA*(04/11/22 code = Influenza B PCR) 12:16 PM) [place] [id number] 17:16:00 Test Item Value Reference Range Interpretation Comments RSV PCR (test code = Negative *NA*(04/11/22 RSV PCR) 12:16 PM) [place] [id number] 17:16:00 Test Item Value Reference Range Interpretation Comments Source Respiratory Nasophrngl Swb Panel PCR (test code = *NA*(04/11/22 12:16 Source Respiratory PM) Panel PCR) [facility]2022-10-13 17:16:00 Test Item Value Reference Range Interpretation Comments Influenza A PCR (test Negative *NA*(04/11/22 code = Influenza A PCR) 12:16 PM) [facility] [id number] 17:16:00 Test Item Value Reference Range Interpretation Comments Influenza B PCR (test Negative *NA*(04/11/22 code = Influenza B PCR) 12:16 PM) [facility] [id number] 17:16:00 Test Item Value Reference Range Interpretation Comments RSV PCR (test code = Negative *NA*(04/11/22 RSV PCR) 12:16 PM) [facility] DallasQhhoxufVCRFAHCUBG0517-05-58 17:16:00 Test Item Value Reference Range Interpretation Comments Coronavirus (COVID-19) Not Detected OSCAR (test code = (04/11/22 12:16 PM) Coronavirus (COVID-19) OSCAR) [facility] CampusDztvzkdGMSEAHPNMA6177-04-31 17:16:00 Test Item Value Reference Range Interpretation Comments Coronavirus (COVID-19) Not Detected OSCAR (test code = (04/11/22 12:16 PM) Coronavirus (COVID-19) OSCAR) [facility]2022-10-13 17:16:00 Test Item Value Reference Range Interpretation Comments Source Respiratory Nasophrngl Swb Panel PCR (test code = *NA*(04/11/22 12:16 Source Respiratory PM) Panel PCR) [facility]2022-10-13 17:16:00 Test Item Value Reference Range Interpretation Comments Influenza A PCR (test Negative *NA*(04/11/22 code = Influenza A PCR) 12:16 PM) [facility]LE[facility] [id number] 17:16:00 Test Item Value Reference Range Interpretation Comments Influenza B PCR (test Negative *NA*(04/11/22 code = Influenza B PCR) 12:16 PM) [facility] [id number] 17:16:00 Test Item Value Reference Range Interpretation Comments RSV PCR (test code = Negative *NA*(04/11/22 RSV PCR) 12:16 PM) [facility] [id number] 17:16:00 Test Item Value Reference Range Interpretation Comments Source Respiratory Nasophrngl Swb Panel PCR (test code = *NA*(04/11/22 12:16 Source Respiratory PM) Panel PCR) [facility] [id number] 17:16:00 Test Item Value Reference Range Interpretation Comments Influenza A PCR (test Negative *NA*(04/11/22 code = Influenza A PCR) 12:16 PM) [facility] [id number] 17:16:00 Test Item Value Reference Range Interpretation Comments Influenza B PCR (test Negative *NA*(04/11/22 code = Influenza B PCR) 12:16 PM) [facility] [id number] 17:16:00 Test Item Value Reference Range Interpretation Comments RSV PCR (test code = Negative *NA*(04/11/22 RSV PCR) 12:16 PM) [facility] DallasUavigvvGSFCLMXCBH8000-57-79 17:16:00 Test Item Value Reference Range Interpretation Comments Coronavirus (COVID-19) Not Detected OSCAR (test code = (04/11/22 12:16 PM) Coronavirus (COVID-19) OSCAR) [facility] CampusUmlfzegIGKABKWSIO8925-96-00 17:16:00 Test Item Value Reference Range Interpretation Comments Coronavirus (COVID-19) Not Detected OSCAR (test code = (04/11/22 12:16 PM) Coronavirus (COVID-19) OSCAR) [facility]2022-10-13 17:16:00 Test Item Value Reference Range Interpretation Comments Source Respiratory Nasophrngl Swb Panel PCR (test code = *NA*(04/11/22 12:16 Source Respiratory PM) Panel PCR) [facility] [id number] 17:16:00 Test Item Value Reference Range Interpretation Comments Influenza A PCR (test Negative *NA*(04/11/22 code = Influenza A PCR) 12:16 PM) [facility] [id number] 17:16:00 Test Item Value Reference Range Interpretation Comments Influenza B PCR (test Negative *NA*(04/11/22 code = Influenza B PCR) 12:16 PM) [facility] [id number] 17:16:00 Test Item Value Reference Range Interpretation Comments RSV PCR (test code = Negative *NA*(04/11/22 RSV PCR) 12:16 PM) [facility]2022-10-13 17:16:00 Test Item Value Reference Range Interpretation Comments Source Respiratory Nasophrngl Swb Panel PCR (test code = *NA*(04/11/22 12:16 Source Respiratory PM) Panel PCR) [facility]2022-10-13 17:16:00 Test Item Value Reference Range Interpretation Comments Influenza A PCR (test Negative *NA*(04/11/22 code = Influenza A PCR) 12:16 PM) [facility]2022-10-13 17:16:00 Test Item Value Reference Range Interpretation Comments Influenza B PCR (test Negative *NA*(04/11/22 code = Influenza B PCR) 12:16 PM) [facility]2022-10-13 17:16:00 Test Item Value Reference Range Interpretation Comments RSV PCR (test code = Negative *NA*(04/11/22 RSV PCR) 12:16 PM) [facility] CampusVnjkgkmYMOAWPVLVG0858-55-58 17:16:00 Test Item Value Reference Range Interpretation Comments Coronavirus (COVID-19) Not Detected OSCAR (test code = (04/11/22 12:16 PM) Coronavirus (COVID-19) OSCAR) [facility] CampusOewuffkXMHEGFBIGK3855-13-47 17:16:00 Test Item Value Reference Range Interpretation Comments Coronavirus (COVID-19) Not Detected OSCAR (test code = (04/11/22 12:16 PM) Coronavirus (COVID-19) OSCAR) [facility]2022-10-13 17:16:00 Test Item Value Reference Range Interpretation Comments Source Respiratory Nasophrngl Swb Panel PCR (test code = *NA*(04/11/22 12:16 Source Respiratory PM) Panel PCR) [facility]2022-10-13 17:16:00 Test Item Value Reference Range Interpretation Comments Influenza A PCR (test Negative *NA*(04/11/22 code = Influenza A PCR) 12:16 PM) [facility]2022-10-13 17:16:00 Test Item Value Reference Range Interpretation Comments Influenza B PCR (test Negative *NA*(04/11/22 code = Influenza B PCR) 12:16 PM) [place] [id number] 17:16:00 Test Item Value Reference Range Interpretation Comments RSV PCR (test code = Negative *NA*(04/11/22 RSV PCR) 12:16 PM) [facility] [id number] 17:16:00 Test Item Value Reference Range Interpretation Comments Source Respiratory Nasophrngl Swb Panel PCR (test code = *NA*(04/11/22 12:16 Source Respiratory PM) Panel PCR) [facility]2022-10-13 17:16:00 Test Item Value Reference Range Interpretation Comments Influenza A PCR (test Negative *NA*(04/11/22 code = Influenza A PCR) 12:16 PM) [place] [id number] 17:16:00 Test Item Value Reference Range Interpretation Comments Influenza B PCR (test Negative *NA*(04/11/22 code = Influenza B PCR) 12:16 PM) [facility]2022-10-13 17:16:00 Test Item Value Reference Range Interpretation Comments RSV PCR (test code = Negative *NA*(04/11/22 RSV PCR) 12:16 PM) [facility] CampusHmtqidbMVRHUPDTEF0501-66-44 17:16:00 Test Item Value Reference Range Interpretation Comments Coronavirus (COVID-19) Not Detected OSCAR (test code = (04/11/22 12:16 PM) Coronavirus (COVID-19) OSCAR) [facility] CampusKarjmoxULZCTDNNOI6900-56-97 17:16:00 Test Item Value Reference Range Interpretation Comments Coronavirus (COVID-19) Not Detected OSCAR (test code = (04/11/22 12:16 PM) Coronavirus (COVID-19) OSCAR) [facility]2022-10-13 17:16:00 Test Item Value Reference Range Interpretation Comments Source Respiratory Nasophrngl Swb Panel PCR (test code = *NA*(04/11/22 12:16 Source Respiratory PM) Panel PCR) [facility]2022-10-13 17:16:00 Test Item Value Reference Range Interpretation Comments Influenza A PCR (test Negative *NA*(04/11/22 code = Influenza A PCR) 12:16 PM) [facility]2022-10-13 17:16:00 Test Item Value Reference Range Interpretation Comments Influenza B PCR (test Negative *NA*(04/11/22 code = Influenza B PCR) 12:16 PM) [facility] [id number] 17:16:00 Test Item Value Reference Range Interpretation Comments RSV PCR (test code = Negative *NA*(04/11/22 RSV PCR) 12:16 PM) [facility]2022-10-13 17:16:00 Test Item Value Reference Range Interpretation Comments Source Respiratory Nasophrngl Swb Panel PCR (test code = *NA*(04/11/22 12:16 Source Respiratory PM) Panel PCR) [facility]2022-10-13 17:16:00 Test Item Value Reference Range Interpretation Comments Influenza A PCR (test Negative *NA*(04/11/22 code = Influenza A PCR) 12:16 PM) [place] [id number] 17:16:00 Test Item Value Reference Range Interpretation Comments Influenza B PCR (test Negative *NA*(04/11/22 code = Influenza B PCR) 12:16 PM) [facility]2022-10-13 17:16:00 Test Item Value Reference Range Interpretation Comments RSV PCR (test code = Negative *NA*(04/11/22 RSV PCR) 12:16 PM) [facility] Dall[id number] 17:16:00 Test Item Value Reference Range Interpretation Comments Coronavirus (COVID-19) Not Detected OSCAR (test code = (04/11/22 12:16 PM) Coronavirus (COVID-19) OSCAR) [facility] DallasOkbtatjMDFLMOGBII4426-52-12 17:16:00 Test Item Value Reference Range Interpretation Comments Coronavirus (COVID-19) Not Detected OSCAR (test code = (04/11/22 12:16 PM) Coronavirus (COVID-19) OSCAR) [facility]2022-10-13 17:16:00 Test Item Value Reference Range Interpretation Comments Source Respiratory Nasophrngl Swb Panel PCR (test code = *NA*(04/11/22 12:16 Source Respiratory PM) Panel PCR) [facility]2022-10-13 17:16:00 Test Item Value Reference Range Interpretation Comments Influenza A PCR (test Negative *NA*(04/11/22 code = Influenza A PCR) 12:16 PM) [facility]annMO[facility] [id number] 17:16:00 Test Item Value Reference Range Interpretation Comments Influenza B PCR (test Negative *NA*(04/11/22 code = Influenza B PCR) 12:16 PM) [facility]IL[facility] [id number] 17:16:00 Test Item Value Reference Range Interpretation Comments RSV PCR (test code = Negative *NA*(04/11/22 RSV PCR) 12:16 PM) [facility] [id number] 17:16:00 Test Item Value Reference Range Interpretation Comments Source Respiratory Nasophrngl Swb Panel PCR (test code = *NA*(04/11/22 12:16 Source Respiratory PM) Panel PCR) [facility] [id number] 17:16:00 Test Item Value Reference Range Interpretation Comments Influenza A PCR (test Negative *NA*(04/11/22 code = Influenza A PCR) 12:16 PM) [facility] [id number] 17:16:00 Test Item Value Reference Range Interpretation Comments Influenza B PCR (test Negative *NA*(04/11/22 code = Influenza B PCR) 12:16 PM) [facility] [id number] 17:16:00 Test Item Value Reference Range Interpretation Comments RSV PCR (test code = Negative *NA*(04/11/22 RSV PCR) 12:16 PM) [facility] [id number] 15:40:00 Test Item Value Reference Range Interpretation Comments LDH (test code = LDH) 150 98-192 [facility] DallasMjyxtosHBBJAPVGS2978-89-17 15:40:00 Test Item Value Reference Range Interpretation Comments S Preg (test code = S Negative *NA*(04/11/22 Preg) 10:40 AM) [facility] HospitalJysmyisYSNAJZZMT9063-21-64 15:40:00 Test Item Value Reference Range Interpretation Comments TSH (test code = TSH) 1.580 0.360-3.740 [facility] DallasCdyscimYFYNWHDZAIPGS2657-79-81 15:40:00 Test Item Value Reference Range Interpretation Comments S Preg (test code = S Negative *NA*(04/11/22 Preg) 10:40 AM) [facility] HospitalGaxcarcRLPPVVRIYP3860-68-73 15:40:00 Test Item Value Reference Range Interpretation Comments ACHr Binding Ab (test code = ACHr no gt Binding Ab) [facility] DallasBaszlphXQJAQPNZXN2877-54-08 15:40:00 Test Item Value Reference Range Interpretation Comments ACHr Block Ab (test code = ACHr Block no gt Ab) [facility] DallasJxdtfplLRUIPRJTAA6624-51-72 15:40:00 Test Item Value Reference Range Interpretation Comments ACHr Mod Ab (test code = ACHr Mod Ab) no gt [facility] DallasKgumouzFMYHBHBRMY6189-79-44 15:40:00 Test Item Value Reference Range Interpretation Comments Striated Muscle IgG (test code = NEGATIVE Striated Muscle IgG) [facility] [id number] 15:40:00 Test Item Value Reference Range Interpretation Comments AFP TM (test code = AFP TM) 2.5 [facility] [id number] 15:40:00 Test Item Value Reference Range Interpretation Comments AFP TM (test code = AFP TM) 2.5 [facility] [id number] 15:40:00 Test Item Value Reference Range Interpretation Comments LDH (test code = LDH) 150 98-[address] [facility] CenterCgjzaiwCQMEKQIIP0673-71-85 15:40:00 Test Item Value Reference Range Interpretation Comments S Preg (test code = S Negative *NA*(04/11/22 Preg) 10:40 AM) [facility] CenterFehghwxFHSGHLSUD8834-71-19 15:40:00 Test Item Value Reference Range Interpretation Comments TSH (test code = TSH) 1.580 0.360-3.740 [facility]TwkzhmcYHXGWOJKKPYJI8177-23-97 15:40:00 Test Item Value Reference Range Interpretation Comments S Preg (test code = S Negative *NA*(04/11/22 Preg) 10:40 AM) [facility] CampusAxznkfjOVJMICARZH3604-01-19 15:40:00 Test Item Value Reference Range Interpretation Comments ACHr Binding Ab (test code = ACHr no gt Binding Ab) [facility] CampusXfiqvmhPTYNRXUQNP4903-09-85 15:40:00 Test Item Value Reference Range Interpretation Comments ACHr Block Ab (test code = ACHr Block no gt Ab) [facility] CampusPezfpsjDNGQDKGXFC5350-35-65 15:40:00 Test Item Value Reference Range Interpretation Comments ACHr Mod Ab (test code = ACHr Mod Ab) no gt [facility] CampusKrpmarbDYCFYCXOBV4465-39-58 15:40:00 Test Item Value Reference Range Interpretation Comments Striated Muscle IgG (test code = NEGATIVE Striated Muscle IgG) [facility] [id number] 15:40:00 Test Item Value Reference Range Interpretation Comments AFP TM (test code = AFP TM) 2.5 [facility] [id number] 15:40:00 Test Item Value Reference Range Interpretation Comments AFP TM (test code = AFP TM) 2.5 [facility]CHE[facility] [id number] 15:40:00 Test Item Value Reference Range Interpretation Comments LDH (test code = LDH) 150 98-192 [facility] HospitalRukuaqpDLJPWLQZK9483-93-94 15:40:00 Test Item Value Reference Range Interpretation Comments S Preg (test code = S Negative *NA*(04/11/22 Preg) 10:40 AM) [facility] HospitalObggfvhRFCMNQXOJ8973-60-58 15:40:00 Test Item Value Reference Range Interpretation Comments TSH (test code = TSH) 1.580 0.360-3.740 [facility] HospitalIaxjkleCIQVMZLXNWOXC0580-40-95 15:40:00 Test Item Value Reference Range Interpretation Comments S Preg (test code = S Negative *NA*(04/11/22 Preg) 10:40 AM) [facility] HospitalYkimumdSYWHFIJQAJ9893-05-57 15:40:00 Test Item Value Reference Range Interpretation Comments ACHr Binding Ab (test code = ACHr no gt Binding Ab) [facility] HospitalAwpnaljSCFHTVJBHK9176-79-31 15:40:00 Test Item Value Reference Range Interpretation Comments ACHr Block Ab (test code = ACHr Block no gt Ab) [facility] HospitalUbrjnwiUQGIQAASER7524-50-06 15:40:00 Test Item Value Reference Range Interpretation Comments ACHr Mod Ab (test code = ACHr Mod Ab) no gt [facility] RfitvtgBLXUHZIAIV1636-54-98 15:40:00 Test Item Value Reference Range Interpretation Comments Striated Muscle IgG (test code = NEGATIVE Striated Muscle IgG) [facility]annT[facility] [id number] 15:40:00 Test Item Value Reference Range Interpretation Comments AFP TM (test code = AFP TM) 2.5 [facility]annT[facility] [id number] 15:40:00 Test Item Value Reference Range Interpretation Comments AFP TM (test code = AFP TM) 2.5 [facility]annCHEM [id number] 15:40:00 Test Item Value Reference Range Interpretation Comments LDH (test code = LDH) 150 98-192 [facility] EueggcgDBFJIXZXN7408-70-23 15:40:00 Test Item Value Reference Range Interpretation Comments S Preg (test code = S Negative *NA*(04/11/22 Preg) 10:40 AM) [facility] ZdabusvXBDSZUWKZ7619-14-18 15:40:00 Test Item Value Reference Range Interpretation Comments TSH (test code = TSH) 1.580 0.360-3.740 [facility] HospitalLbaiyyqIVBGVWASJMOEY6401-52-92 15:40:00 Test Item Value Reference Range Interpretation Comments S Preg (test code = S Negative *NA*(04/11/22 Preg) 10:40 AM) [facility] SvxbagwJWRAGHIRNW9226-27-68 15:40:00 Test Item Value Reference Range Interpretation Comments ACHr Binding Ab (test code = ACHr no gt Binding Ab) [facility] GvufvblFWALUQXWVJ2270-53-66 15:40:00 Test Item Value Reference Range Interpretation Comments ACHr Block Ab (test code = ACHr Block no gt Ab) [facility] DlkssucCVDBKTAHQG1418-36-13 15:40:00 Test Item Value Reference Range Interpretation Comments ACHr Mod Ab (test code = ACHr Mod Ab) no gt [facility] AapwjrtFUQYFBENEW3964-59-62 15:40:00 Test Item Value Reference Range Interpretation Comments Striated Muscle IgG (test code = NEGATIVE Striated Muscle IgG) [facility]annT[facility] [id number] 15:40:00 Test Item Value Reference Range Interpretation Comments AFP TM (test code = AFP TM) 2.5 [facility] [id number] 15:40:00 Test Item Value Reference Range Interpretation Comments AFP TM (test code = AFP TM) 2.5 [facility]annCHEM [id number] 15:40:00 Test Item Value Reference Range Interpretation Comments LDH (test code = LDH) 150 98-192 [facility] PtruyqiBTWLDHPCT9725-98-94 15:40:00 Test Item Value Reference Range Interpretation Comments S Preg (test code = S Negative *NA*(04/11/22 Preg) 10:40 AM) [facility] HospitalSamxiriYINDJYKMN0540-32-43 15:40:00 Test Item Value Reference Range Interpretation Comments TSH (test code = TSH) 1.580 0.360-3.740 [place] [id number] 15:40:00 Test Item Value Reference Range Interpretation Comments S Preg (test code = S Negative *NA*(04/11/22 Preg) 10:40 AM) [facility] DallasEdvyulbIGQHFTSPSH8147-92-33 15:40:00 Test Item Value Reference Range Interpretation Comments ACHr Binding Ab (test code = ACHr no gt Binding Ab) [facility] HospitalWpresreHXNOJNGGXF3455-90-33 15:40:00 Test Item Value Reference Range Interpretation Comments ACHr Block Ab (test code = ACHr Block no gt Ab) [facility] HospitalDjqcofcDKPAUEYIAQ0293-62-02 15:40:00 Test Item Value Reference Range Interpretation Comments ACHr Mod Ab (test code = ACHr Mod Ab) no gt [facility] HospitalFuuootmPXATKTWHWY6099-95-50 15:40:00 Test Item Value Reference Range Interpretation Comments Striated Muscle IgG (test code = NEGATIVE Striated Muscle IgG) [facility] QBDWDDY3730-45-09 15:40:00 Test Item Value Reference Range Interpretation Comments AFP TM (test code = AFP TM) 2.5 [facility]ann[facility] [id number] 15:40:00 Test Item Value Reference Range Interpretation Comments AFP TM (test code = AFP TM) 2.5 [facility] DallasCHEM GYMQO2391-93-02 15:40:00 Test Item Value Reference Range Interpretation Comments LDH (test code = LDH) 150 98-[address] [facility] CenterWkhuunpTCZVDJOPZ7712-45-08 15:40:00 Test Item Value Reference Range Interpretation Comments S Preg (test code = S Negative *NA*(04/11/22 Preg) 10:40 AM) [facility] CenterDdoddzmSBYMWNUNK2219-28-08 15:40:00 Test Item Value Reference Range Interpretation Comments TSH (test code = TSH) 1.580 0.360-3.740 [place] [id number] 15:40:00 Test Item Value Reference Range Interpretation Comments S Preg (test code = S Negative *NA*(04/11/22 Preg) 10:40 AM) [facility] CampusSbzsyivILIDJAAQRG8363-68-90 15:40:00 Test Item Value Reference Range Interpretation Comments ACHr Binding Ab (test code = ACHr no gt Binding Ab) [facility] DallasPxvjyryBDYVXGZVPP3546-18-97 15:40:00 Test Item Value Reference Range Interpretation Comments ACHr Block Ab (test code = ACHr Block no gt Ab) [facility] DallasFbgcroiNJTDIOKZLO7205-84-74 15:40:00 Test Item Value Reference Range Interpretation Comments ACHr Mod Ab (test code = ACHr Mod Ab) no gt [facility] CampusVvsncspWHXLQBSNRN7203-43-31 15:40:00 Test Item Value Reference Range Interpretation Comments Striated Muscle IgG (test code = NEGATIVE Striated Muscle IgG) [facility]2022-10-13 15:40:00 Test Item Value Reference Range Interpretation Comments AFP TM (test code = AFP TM) 2.5 [facility]annOCHSN[facility] IBERVILLEDYTYDPZ7185-13-12 15:40:00 Test Item Value Reference Range Interpretation Comments AFP TM (test code = AFP TM) 2.5 [facility]2022-10-13 15:40:00 Test Item Value Reference Range Interpretation Comments LDH (test code = LDH) 150 98-[address] [address] [facility] CenterScpkjjsOROHDYDPX5062-13-49 15:40:00 Test Item Value Reference Range Interpretation Comments S Preg (test code = S Negative *NA*(04/11/22 Preg) 10:40 AM) [facility] CenterExdzjxwUOKLVHILJ7183-81-00 15:40:00 Test Item Value Reference Range Interpretation Comments TSH (test code = TSH) 1.580 0.360-3.740 [place] [id number] 15:40:00 Test Item Value Reference Range Interpretation Comments S Preg (test code = S Negative *NA*(04/11/22 Preg) 10:40 AM) [facility] CampusGvrirdlETPQRKZHPA6575-78-33 15:40:00 Test Item Value Reference Range Interpretation Comments ACHr Binding Ab (test code = ACHr no gt Binding Ab) [facility] CampusWjfsnfvYYNHQZNZKL8839-73-02 15:40:00 Test Item Value Reference Range Interpretation Comments ACHr Block Ab (test code = ACHr Block no gt Ab) [facility] CampusSrwabzmJHYVBJQSLC9360-77-96 15:40:00 Test Item Value Reference Range Interpretation Comments ACHr Mod Ab (test code = ACHr Mod Ab) no gt [facility] CampusQdayvpnUHVCHZSFMK4130-44-28 15:40:00 Test Item Value Reference Range Interpretation Comments Striated Muscle IgG (test code = NEGATIVE Striated Muscle IgG) [facility]2022-10-13 15:40:00 Test Item Value Reference Range Interpretation Comments AFP TM (test code = AFP TM) 2.5 [facility] GHZVBTK8056-94-89 15:40:00 Test Item Value Reference Range Interpretation Comments AFP TM (test code = AFP TM) 2.5 [facility]annCHE[facility] CUBWY4757-29-35 15:40:00 Test Item Value Reference Range Interpretation Comments LDH (test code = LDH) 150 98-[address] [facility] CenterWdxdhrnWZTKSWMYJ6718-99-57 15:40:00 Test Item Value Reference Range Interpretation Comments S Preg (test code = S Negative *NA*(04/11/22 Preg) 10:40 AM) [facility] CenterFnwmxtrPZZUWFJUY0031-01-18 15:40:00 Test Item Value Reference Range Interpretation Comments TSH (test code = TSH) 1.580 0.360-3.740 [place] [id number] 15:40:00 Test Item Value Reference Range Interpretation Comments S Preg (test code = S Negative *NA*(04/11/22 Preg) 10:40 AM) [facility] DallasVaizdpfTQYNQRVGPI1497-45-30 15:40:00 Test Item Value Reference Range Interpretation Comments ACHr Binding Ab (test code = ACHr no gt Binding Ab) [facility] DallasCHEM SICUH6139-11-57 15:40:00 Test Item Value Reference Range Interpretation Comments LDH (test code = LDH) 150 98-[address] [address] [facility] CenterLjrnwabUDDQMJXLO2837-35-28 15:40:00 Test Item Value Reference Range Interpretation Comments S Preg (test code = S Negative *NA*(04/11/22 Preg) 10:40 AM) [facility] CenterOrljqqaSFMKMYMPQ1967-02-97 15:40:00 Test Item Value Reference Range Interpretation Comments TSH (test code = TSH) 1.580 0.360-3.740 [place] [id number] 15:40:00 Test Item Value Reference Range Interpretation Comments S Preg (test code = S Negative *NA*(04/11/22 Preg) 10:40 AM) [facility] CampusNwwbyndAVXFADSBSP6805-83-49 15:40:00 Test Item Value Reference Range Interpretation Comments ACHr Binding Ab (test code = ACHr no gt Binding Ab) [facility] HospitalZdcidofEZPNZOZWGG4504-09-16 15:40:00 Test Item Value Reference Range Interpretation Comments ACHr Block Ab (test code = ACHr Block no gt Ab) [facility] HospitalNpijqvlZEEZEWVIZT9396-99-24 15:40:00 Test Item Value Reference Range Interpretation Comments ACHr Mod Ab (test code = ACHr Mod Ab) no gt [facility] HospitalNsdlgiaQDRXTQELNR5851-63-27 15:40:00 Test Item Value Reference Range Interpretation Comments Striated Muscle IgG (test code = NEGATIVE Striated Muscle IgG) [facility]annTG[facility] OWEDCHX3336-36-39 15:40:00 Test Item Value Reference Range Interpretation Comments AFP TM (test code = AFP TM) 2.5 [facility] HospitalXcofxtyUBBRNLWNGL6397-87-34 15:40:00 Test Item Value Reference Range Interpretation Comments ACHr Block Ab (test code = ACHr Block no gt Ab) [facility]annTG[facility]AD[facility] VSOFHBN7620-47-83 15:40:00 Test Item Value Reference Range Interpretation Comments AFP TM (test code = AFP TM) 2.5 [facility] HospitalCuvdqwdXLZZYXZCNE5202-51-04 15:40:00 Test Item Value Reference Range Interpretation Comments ACHr Mod Ab (test code = ACHr Mod Ab) no gt [facility] HospitalFrkxqllOZOWGNUTQN4648-92-14 15:40:00 Test Item Value Reference Range Interpretation Comments Striated Muscle IgG (test code = NEGATIVE Striated Muscle IgG) [facility]annTG[facility]ADAL[facility] GUWQXCN6309-08-15 15:40:00 Test Item Value Reference Range Interpretation Comments AFP TM (test code = AFP TM) 2.5 [facility]annTG[facility] YKKDZKW4361-81-63 15:40:00 Test Item Value Reference Range Interpretation Comments AFP TM (test code = AFP TM) 2.5 [facility] PSKQZ9127-46-89 15:40:00 Test Item Value Reference Range Interpretation Comments LDH (test code = LDH) 150 98-192 [facility] HospitalWijeerjMVXAWEKJK4409-49-61 15:40:00 Test Item Value Reference Range Interpretation Comments S Preg (test code = S Negative *NA*(04/11/22 Preg) 10:40 AM) [facility] HospitalUdkwrtsCAPLWDZCO0156-33-16 15:40:00 Test Item Value Reference Range Interpretation Comments TSH (test code = TSH) 1.580 0.360-3.740 [facility]SqutzqcDCIIHXSDLXIYE3624-62-24 15:40:00 Test Item Value Reference Range Interpretation Comments S Preg (test code = S Negative *NA*(04/11/22 Preg) 10:40 AM) [facility] HospitalUtftcquHBFCRURMHC8572-13-54 15:40:00 Test Item Value Reference Range Interpretation Comments ACHr Binding Ab (test code = ACHr no gt Binding Ab) [facility] DallasWplznuqUGYCXVIUVY3835-56-01 15:40:00 Test Item Value Reference Range Interpretation Comments ACHr Block Ab (test code = ACHr Block no gt Ab) [facility] DallasCmhgvpjSRHBLWJBKC0169-74-33 15:40:00 Test Item Value Reference Range Interpretation Comments ACHr Mod Ab (test code = ACHr Mod Ab) no gt [facility] DallasXlyydllKTWBCEZPAJ1948-52-98 15:40:00 Test Item Value Reference Range Interpretation Comments Striated Muscle IgG (test code = NEGATIVE Striated Muscle IgG) [facility] [id number] 15:40:00 Test Item Value Reference Range Interpretation Comments AFP TM (test code = AFP TM) 2.5 [facility] [id number] 15:40:00 Test Item Value Reference Range Interpretation Comments AFP TM (test code = AFP TM) 2.5 [facility] NDJQQ1454-62-42 15:40:00 Test Item Value Reference Range Interpretation Comments LDH (test code = LDH) 150 98-[address] [facility] CenterAbheslqVAXXGTUTN3859-75-47 15:40:00 Test Item Value Reference Range Interpretation Comments S Preg (test code = S Negative *NA*(04/11/22 Preg) 10:40 AM) [facility] CenterXdwqzhmKKWJOPOOY0075-02-02 15:40:00 Test Item Value Reference Range Interpretation Comments TSH (test code = TSH) 1.580 0.360-3.740 [facility]GbwaopvOYDAGHMVSSXAI8828-77-78 15:40:00 Test Item Value Reference Range Interpretation Comments S Preg (test code = S Negative *NA*(04/11/22 Preg) 10:40 AM) [facility] CampusCjeeuthEGLTWLGUID4098-92-58 15:40:00 Test Item Value Reference Range Interpretation Comments ACHr Binding Ab (test code = ACHr no gt Binding Ab) [facility] CampusQgatwbuBFZHPJNJRA1517-15-85 15:40:00 Test Item Value Reference Range Interpretation Comments ACHr Block Ab (test code = ACHr Block no gt Ab) [facility] CampusWprmigeNMIDJJCJCQ6617-35-28 15:40:00 Test Item Value Reference Range Interpretation Comments ACHr Mod Ab (test code = ACHr Mod Ab) no gt [facility] CampusPvxwlaxJBWILWEIHL7065-69-12 15:40:00 Test Item Value Reference Range Interpretation Comments Striated Muscle IgG (test code = NEGATIVE Striated Muscle IgG) [facility] RUHGUXG0971-91-00 15:40:00 Test Item Value Reference Range Interpretation Comments AFP TM (test code = AFP TM) 2.5 [facility] GYUZIEN1254-96-93 15:40:00 Test Item Value Reference Range Interpretation Comments AFP TM (test code = AFP TM) 2.5 [facility]annCHE[facility] FYJBN7395-71-05 15:40:00 Test Item Value Reference Range Interpretation Comments LDH (test code = LDH) 150 98-192 [facility] AmhxzrrDVCMLGCVW4778-93-57 15:40:00 Test Item Value Reference Range Interpretation Comments S Preg (test code = S Negative *NA*(04/11/22 Preg) 10:40 AM) [facility] HospitalLfnpxonZCWZBEOBD3470-09-41 15:40:00 Test Item Value Reference Range Interpretation Comments TSH (test code = TSH) 1.580 0.360-3.740 [facility] HospitalTfehpuoAXNRATSIVCWVB7437-13-12 15:40:00 Test Item Value Reference Range Interpretation Comments S Preg (test code = S Negative *NA*(04/11/22 Preg) 10:40 AM) [facility] CynvrsbDFVALYRYXW8471-56-22 15:40:00 Test Item Value Reference Range Interpretation Comments ACHr Binding Ab (test code = ACHr no gt Binding Ab) [facility] HospitalSvjdcevOOAUZDMWFR8463-07-48 15:40:00 Test Item Value Reference Range Interpretation Comments ACHr Block Ab (test code = ACHr Block no gt Ab) [facility] PxwxxuwRSZCHUOOUD4708-63-41 15:40:00 Test Item Value Reference Range Interpretation Comments ACHr Mod Ab (test code = ACHr Mod Ab) no gt [facility] VdowhpaLCOOINLGYE2096-28-68 15:40:00 Test Item Value Reference Range Interpretation Comments Striated Muscle IgG (test code = NEGATIVE Striated Muscle IgG) [facility]annTUMOR INVPUQK4996-05-08 15:40:00 Test Item Value Reference Range Interpretation Comments AFP TM (test code = AFP TM) 2.5 [facility] YHJUREP1803-54-14 15:40:00 Test Item Value Reference Range Interpretation Comments AFP TM (test code = AFP TM) 2.5 [facility]annCHEM NBDKQ9381-97-26 15:40:00 Test Item Value Reference Range Interpretation Comments LDH (test code = LDH) 150 98-192 [facility] OvzlheiOWWMDHUQD2758-88-64 15:40:00 Test Item Value Reference Range Interpretation Comments S Preg (test code = S Negative *NA*(04/11/22 Preg) 10:40 AM) [facility] UtivihjEKKTMXGBV8646-94-67 15:40:00 Test Item Value Reference Range Interpretation Comments TSH (test code = TSH) 1.580 0.360-3.740 [facility] HospitalEyorxgpTZCFCMTQVGYMB2873-52-75 15:40:00 Test Item Value Reference Range Interpretation Comments S Preg (test code = S Negative *NA*(04/11/22 Preg) 10:40 AM) [facility] AgagguaNKUTQVHPDU4014-19-56 15:40:00 Test Item Value Reference Range Interpretation Comments ACHr Binding Ab (test code = ACHr no gt Binding Ab) [facility] HospitalVmnjieoBYYMGOSFHA3002-51-85 15:40:00 Test Item Value Reference Range Interpretation Comments ACHr Block Ab (test code = ACHr Block no gt Ab) [facility] BrakwpzVPFIEATHKR6189-14-84 15:40:00 Test Item Value Reference Range Interpretation Comments ACHr Mod Ab (test code = ACHr Mod Ab) no gt [facility] EvzvvdqNWNBDJAUWV3333-16-52 15:40:00 Test Item Value Reference Range Interpretation Comments Striated Muscle IgG (test code = NEGATIVE Striated Muscle IgG) [facility]annTUMOR IJMFHAU2368-72-23 15:40:00 Test Item Value Reference Range Interpretation Comments AFP TM (test code = AFP TM) 2.5 [facility] [id number] 15:40:00 Test Item Value Reference Range Interpretation Comments AFP TM (test code = AFP TM) 2.5 [facility]annCHE[facility] [id number] 15:40:00 Test Item Value Reference Range Interpretation Comments LDH (test code = LDH) 150 98-192 [facility] UuysgnjDTDAKRNNH0817-48-56 15:40:00 Test Item Value Reference Range Interpretation Comments S Preg (test code = S Negative *NA*(04/11/22 Preg) 10:40 AM) [facility] HospitalCevapslKVBPFOIIK2564-41-01 15:40:00 Test Item Value Reference Range Interpretation Comments TSH (test code = TSH) 1.580 0.360-3.740 [facility] HeightsNjhqnjqSVBALHZYIFFPW2046-94-88 15:40:00 Test Item Value Reference Range Interpretation Comments S Preg (test code = S Negative *NA*(04/11/22 Preg) 10:40 AM) [facility] DallasVjzugpsLFYGJZQZWQ3784-76-58 15:40:00 Test Item Value Reference Range Interpretation Comments ACHr Binding Ab (test code = ACHr no gt Binding Ab) [facility] HospitalLwfwqfgCNRLDABBBI4765-65-81 15:40:00 Test Item Value Reference Range Interpretation Comments ACHr Block Ab (test code = ACHr Block no gt Ab) [facility] HospitalVrnvutbVNDJOQPNNN2119-36-90 15:40:00 Test Item Value Reference Range Interpretation Comments ACHr Mod Ab (test code = ACHr Mod Ab) no gt [facility] HospitalEcargruBLYFWBXOLX9544-16-86 15:40:00 Test Item Value Reference Range Interpretation Comments Striated Muscle IgG (test code = NEGATIVE Striated Muscle IgG) [facility] AGCGLEE9233-04-77 15:40:00 Test Item Value Reference Range Interpretation Comments AFP TM (test code = AFP TM) 2.5 [facility]annTG[facility]AL[facility] RDGIXTP2629-30-53 15:40:00 Test Item Value Reference Range Interpretation Comments AFP TM (test code = AFP TM) 2.5 [facility] HospitalannCHEM THPWJ8239-67-89 15:40:00 Test Item Value Reference Range Interpretation Comments LDH (test code = LDH) 150 98-[address] [facility] CenterAxcruhbVHUXOJGTH7444-12-56 15:40:00 Test Item Value Reference Range Interpretation Comments S Preg (test code = S Negative *NA*(04/11/22 Preg) 10:40 AM) [facility] CenterMktiadtIVJQKMACO6091-78-48 15:40:00 Test Item Value Reference Range Interpretation Comments TSH (test code = TSH) 1.580 0.360-3.740 [facility] CenterJjemloiEEYNJFNLGPNXS5879-25-96 15:40:00 Test Item Value Reference Range Interpretation Comments S Preg (test code = S Negative *NA*(04/11/22 Preg) 10:40 AM) [facility] CampusErhweoyGEZTPYOHMB2236-27-56 15:40:00 Test Item Value Reference Range Interpretation Comments ACHr Binding Ab (test code = ACHr no gt Binding Ab) [facility] DallasIflbziyHKXJAEWXEN9122-23-39 15:40:00 Test Item Value Reference Range Interpretation Comments ACHr Block Ab (test code = ACHr Block no gt Ab) [facility] DallasLnwlkpgXSFSJJUXRP4098-49-83 15:40:00 Test Item Value Reference Range Interpretation Comments ACHr Mod Ab (test code = ACHr Mod Ab) no gt [facility] CampusReikgdzYFBJWYAHYG2933-04-99 15:40:00 Test Item Value Reference Range Interpretation Comments Striated Muscle IgG (test code = NEGATIVE Striated Muscle IgG) [facility]2022-10-13 15:40:00 Test Item Value Reference Range Interpretation Comments AFP TM (test code = AFP TM) 2.5 [facility]annOCHSN[facility] MED[facility] – IBERVILLECLUCMJO4106-99-44 15:40:00 Test Item Value Reference Range Interpretation Comments AFP TM (test code = AFP TM) 2.5 [facility]2022-10-13 15:40:00 Test Item Value Reference Range Interpretation Comments LDH (test code = LDH) 150 98-[address] [facility] CenterRqnpyhoMTCXZAMYB0653-02-83 15:40:00 Test Item Value Reference Range Interpretation Comments S Preg (test code = S Negative *NA*(04/11/22 Preg) 10:40 AM) [facility] CenterQphwjoxCDLSXWOZD8102-01-35 15:40:00 Test Item Value Reference Range Interpretation Comments TSH (test code = TSH) 1.580 0.360-3.740 [place] [id number] 15:40:00 Test Item Value Reference Range Interpretation Comments S Preg (test code = S Negative *NA*(04/11/22 Preg) 10:40 AM) [facility] CampusLhvlvavDUULVWMCVS8948-08-19 15:40:00 Test Item Value Reference Range Interpretation Comments ACHr Binding Ab (test code = ACHr no gt Binding Ab) [facility] CampusTpznbucWIJMGDTNSW1661-49-50 15:40:00 Test Item Value Reference Range Interpretation Comments ACHr Block Ab (test code = ACHr Block no gt Ab) [facility] CampusYjgudtjJNUQERRPBQ8284-50-29 15:40:00 Test Item Value Reference Range Interpretation Comments ACHr Mod Ab (test code = ACHr Mod Ab) no gt [facility] CampusPjkfwiwTFHLKLABAK4028-85-68 15:40:00 Test Item Value Reference Range Interpretation Comments Striated Muscle IgG (test code = NEGATIVE Striated Muscle IgG) [facility]2022-10-13 15:40:00 Test Item Value Reference Range Interpretation Comments AFP TM (test code = AFP TM) 2.5 [facility]annT[facility] HSGCQCL8632-51-84 15:40:00 Test Item Value Reference Range Interpretation Comments AFP TM (test code = AFP TM) 2.5 [facility]annCHE[facility] LQCGM5494-91-83 15:40:00 Test Item Value Reference Range Interpretation Comments LDH (test code = LDH) 150 98-192 [facility] GqjbcodCLAPSUHKK5739-61-69 15:40:00 Test Item Value Reference Range Interpretation Comments S Preg (test code = S Negative *NA*(04/11/22 Preg) 10:40 AM) [facility] BrlzrpkNLJKTZZOK5981-91-30 15:40:00 Test Item Value Reference Range Interpretation Comments TSH (test code = TSH) 1.580 0.360-3.740 [facility] HospitalBgmxrvyIHBTBDLRXBQYH0916-82-83 15:40:00 Test Item Value Reference Range Interpretation Comments S Preg (test code = S Negative *NA*(04/11/22 Preg) 10:40 AM) [facility] VhwxglyKOGJSCAQAZ9947-90-70 15:40:00 Test Item Value Reference Range Interpretation Comments ACHr Binding Ab (test code = ACHr no gt Binding Ab) [facility] FnyduzmNNIWBILVOU6554-90-31 15:40:00 Test Item Value Reference Range Interpretation Comments ACHr Block Ab (test code = ACHr Block no gt Ab) [facility] BbzlmanLIXXYHGIWG3222-24-50 15:40:00 Test Item Value Reference Range Interpretation Comments ACHr Mod Ab (test code = ACHr Mod Ab) no gt [facility] QxzecsrIMDLNXBAJA3694-11-00 15:40:00 Test Item Value Reference Range Interpretation Comments Striated Muscle IgG (test code = NEGATIVE Striated Muscle IgG) [facility] IKEQDZQ4838-33-47 15:40:00 Test Item Value Reference Range Interpretation Comments AFP TM (test code = AFP TM) 2.5 [facility]annT[facility] EQISUGB5157-92-21 15:40:00 Test Item Value Reference Range Interpretation Comments AFP TM (test code = AFP TM) 2.5 [facility] HermannCHEM HDSNB3223-46-91 15:40:00 Test Item Value Reference Range Interpretation Comments LDH (test code = LDH) 150 98-192 [facility] HospitalUyxhgxdXMCSOWLPD3666-47-35 15:40:00 Test Item Value Reference Range Interpretation Comments S Preg (test code = S Negative *NA*(04/11/22 Preg) 10:40 AM) [facility] YkmugygDZCBFWISO0203-11-22 15:40:00 Test Item Value Reference Range Interpretation Comments TSH (test code = TSH) 1.580 0.360-3.740 [facility] HospitalMqzslnhYTSYWIVBDVTLX7545-78-18 15:40:00 Test Item Value Reference Range Interpretation Comments S Preg (test code = S Negative *NA*(04/11/22 Preg) 10:40 AM) [facility] HospitalIitpwgtYENESLZVLZ8871-03-56 15:40:00 Test Item Value Reference Range Interpretation Comments ACHr Binding Ab (test code = ACHr no gt Binding Ab) [facility] KndrwrfKQKAKBNODX1226-12-89 15:40:00 Test Item Value Reference Range Interpretation Comments ACHr Block Ab (test code = ACHr Block no gt Ab) [facility] BpsbzooNNDPAPQHGK9827-82-15 15:40:00 Test Item Value Reference Range Interpretation Comments ACHr Mod Ab (test code = ACHr Mod Ab) no gt [facility] NmpqwwxRPTJLMZRYO1198-76-37 15:40:00 Test Item Value Reference Range Interpretation Comments Striated Muscle IgG (test code = NEGATIVE Striated Muscle IgG) [facility]annTUMOR WRSNUUP1768-71-93 15:40:00 Test Item Value Reference Range Interpretation Comments AFP TM (test code = AFP TM) 2.5 [facility]annT[facility] PUHITMC8806-39-39 15:40:00 Test Item Value Reference Range Interpretation Comments AFP TM (test code = AFP TM) 2.5 [facility] HospitalannCHEM [id number] 15:40:00 Test Item Value Reference Range Interpretation Comments LDH (test code = LDH) 150 98-192 [facility] HospitalAcxcyslQBDKTSEUY5813-48-35 15:40:00 Test Item Value Reference Range Interpretation Comments S Preg (test code = S Negative *NA*(04/11/22 Preg) 10:40 AM) [facility] HospitalOikryskQUHOAPTQF5207-42-01 15:40:00 Test Item Value Reference Range Interpretation Comments TSH (test code = TSH) 1.580 0.360-3.740 [facility] HospitalDolghsyFRSMHJZKMDTKT3633-17-62 15:40:00 Test Item Value Reference Range Interpretation Comments S Preg (test code = S Negative *NA*(04/11/22 Preg) 10:40 AM) [facility] DallasFyawaonYLRIJSUAUO0819-35-11 15:40:00 Test Item Value Reference Range Interpretation Comments ACHr Binding Ab (test code = ACHr no gt Binding Ab) [facility] DallasPsnkaxxIOGTWMBTBI9157-05-82 15:40:00 Test Item Value Reference Range Interpretation Comments ACHr Block Ab (test code = ACHr Block no gt Ab) [facility] DallasCyliaaiPBBSZPTRLL7603-91-98 15:40:00 Test Item Value Reference Range Interpretation Comments ACHr Mod Ab (test code = ACHr Mod Ab) no gt [facility]HwydjcgSUXHAZAZCO3158-48-56 15:40:00 Test Item Value Reference Range Interpretation Comments Striated Muscle IgG (test code = NEGATIVE Striated Muscle IgG) [facility] [id number] 15:40:00 Test Item Value Reference Range Interpretation Comments AFP TM (test code = AFP TM) 2.5 [facility] TJMTXNV8531-01-26 15:40:00 Test Item Value Reference Range Interpretation Comments AFP TM (test code = AFP TM) 2.5 [facility] [id number] 15:40:00 Test Item Value Reference Range Interpretation Comments LDH (test code = LDH) 150 98-[address] [facility] CenterQdftygyFAXYFCBQH3082-82-22 15:40:00 Test Item Value Reference Range Interpretation Comments S Preg (test code = S Negative *NA*(04/11/22 Preg) 10:40 AM) [facility] CenterQhdbfivGVEVJZYUH3704-58-89 15:40:00 Test Item Value Reference Range Interpretation Comments TSH (test code = TSH) 1.580 0.360-3.740 [facility]IfzuhkvVKYEZLSLGEUZK8550-26-38 15:40:00 Test Item Value Reference Range Interpretation Comments S Preg (test code = S Negative *NA*(04/11/22 Preg) 10:40 AM) [facility]JdyrxncAAVLBDQJJE2007-97-18 15:40:00 Test Item Value Reference Range Interpretation Comments ACHr Binding Ab (test code = ACHr no gt Binding Ab) [facility] CampusLdkbjhxKRWKYJLCQZ2476-38-59 15:40:00 Test Item Value Reference Range Interpretation Comments ACHr Block Ab (test code = ACHr Block no gt Ab) [facility] CampusSxpeomeMIVUSIAGDL6669-68-43 15:40:00 Test Item Value Reference Range Interpretation Comments ACHr Mod Ab (test code = ACHr Mod Ab) no gt [facility] CampusOwidyqoQLLMJOQMNO5046-75-74 15:40:00 Test Item Value Reference Range Interpretation Comments Striated Muscle IgG (test code = NEGATIVE Striated Muscle IgG) [facility] HJNCWMX9819-31-35 15:40:00 Test Item Value Reference Range Interpretation Comments AFP TM (test code = AFP TM) 2.5 [facility] [id number] 15:40:00 Test Item Value Reference Range Interpretation Comments LDH (test code = LDH) 150 98-192 [facility] KozyfjrOYQBHHENW8100-73-25 15:40:00 Test Item Value Reference Range Interpretation Comments S Preg (test code = S Negative *NA*(04/11/22 Preg) 10:40 AM) [facility] WhrxnwfEIZGLTJDK4614-54-08 15:40:00 Test Item Value Reference Range Interpretation Comments TSH (test code = TSH) 1.580 0.360-3.740 [facility] HospitalDcbxqdpJPGTXMZHGPJSO1657-25-13 15:40:00 Test Item Value Reference Range Interpretation Comments S Preg (test code = S Negative *NA*(04/11/22 Preg) 10:40 AM) [facility] OkoznheCNJJMCBZUL7177-31-64 15:40:00 Test Item Value Reference Range Interpretation Comments ACHr Binding Ab (test code = ACHr no gt Binding Ab) [facility] BesjfdoKTAIQNTTSW5019-80-20 15:40:00 Test Item Value Reference Range Interpretation Comments ACHr Block Ab (test code = ACHr Block no gt Ab) [facility] UhgusnwCRLJJULPFL6268-83-01 15:40:00 Test Item Value Reference Range Interpretation Comments ACHr Mod Ab (test code = ACHr Mod Ab) no gt [facility] GpfbyuwHSCTIOAFNN0989-49-43 15:40:00 Test Item Value Reference Range Interpretation Comments Striated Muscle IgG (test code = NEGATIVE Striated Muscle IgG) [facility] RFXOWQL8493-20-32 15:40:00 Test Item Value Reference Range Interpretation Comments AFP TM (test code = AFP TM) 2.5 [facility] [id number] 15:40:00 Test Item Value Reference Range Interpretation Comments AFP TM (test code = AFP TM) 2.5 [facility] INVJRSG1150-03-77 15:40:00 Test Item Value Reference Range Interpretation Comments AFP TM (test code = AFP TM) 2.5 [facility] [id number] 15:40:00 Test Item Value Reference Range Interpretation Comments LDH (test code = LDH) 150 98-192 [facility] CduzapfVKBMKKYLC5747-12-79 15:40:00 Test Item Value Reference Range Interpretation Comments S Preg (test code = S Negative *NA*(04/11/22 Preg) 10:40 AM) [facility] WoyhagbAGAIHAMRV1591-14-76 15:40:00 Test Item Value Reference Range Interpretation Comments TSH (test code = TSH) 1.580 0.360-3.740 [facility] HospitalDgthixwKJDQSKUFLOYEM0540-19-90 15:40:00 Test Item Value Reference Range Interpretation Comments S Preg (test code = S Negative *NA*(04/11/22 Preg) 10:40 AM) [facility] QmisvgjLMEOMAKJBK6918-58-64 15:40:00 Test Item Value Reference Range Interpretation Comments ACHr Binding Ab (test code = ACHr no gt Binding Ab) [facility] SqypvsjOTMKXFNCVF8664-94-93 15:40:00 Test Item Value Reference Range Interpretation Comments ACHr Block Ab (test code = ACHr Block no gt Ab) [facility] KtyplbkUMURTQUQUZ0263-14-09 15:40:00 Test Item Value Reference Range Interpretation Comments ACHr Mod Ab (test code = ACHr Mod Ab) no gt [facility] HwevkccLIACKYHREL8023-25-78 15:40:00 Test Item Value Reference Range Interpretation Comments Striated Muscle IgG (test code = NEGATIVE Striated Muscle IgG) [facility] KHPVGAZ9293-25-27 15:40:00 Test Item Value Reference Range Interpretation Comments AFP TM (test code = AFP TM) 2.5 [facility] KVFZXUH6086-44-29 15:40:00 Test Item Value Reference Range Interpretation Comments AFP TM (test code = AFP TM) 2.5 [facility] KCMOK9810-69-03 15:40:00 Test Item Value Reference Range Interpretation Comments LDH (test code = LDH) 150 98-192 [facility] UtrmmgwAXEKMHDYL0925-58-30 15:40:00 Test Item Value Reference Range Interpretation Comments S Preg (test code = S Negative *NA*(04/11/22 Preg) 10:40 AM) [facility] FryfytmCIHFIQYKH0359-48-70 15:40:00 Test Item Value Reference Range Interpretation Comments TSH (test code = TSH) 1.580 0.360-3.740 [facility] HospitalTppaaagYOTPJANVVZDBX6412-24-38 15:40:00 Test Item Value Reference Range Interpretation Comments S Preg (test code = S Negative *NA*(04/11/22 Preg) 10:40 AM) [facility] DallasFptgljcYZALPYNJRK8580-59-86 15:40:00 Test Item Value Reference Range Interpretation Comments ACHr Binding Ab (test code = ACHr no gt Binding Ab) [facility] HospitalGcqegxzBCFSNRNHMA1043-58-75 15:40:00 Test Item Value Reference Range Interpretation Comments ACHr Block Ab (test code = ACHr Block no gt Ab) [facility] HospitalToqfhlnZXFVONJVCY1402-66-26 15:40:00 Test Item Value Reference Range Interpretation Comments ACHr Mod Ab (test code = ACHr Mod Ab) no gt [facility] HospitalZiatopzZGDYUBROCS7836-19-40 15:40:00 Test Item Value Reference Range Interpretation Comments Striated Muscle IgG (test code = NEGATIVE Striated Muscle IgG) [facility] [id number] 15:40:00 Test Item Value Reference Range Interpretation Comments AFP TM (test code = AFP TM) 2.5 [facility]annTGUADAL[facility] [id number] 15:40:00 Test Item Value Reference Range Interpretation Comments AFP TM (test code = AFP TM) 2.5 [facility] HospitalannCHEM EYGOW9022-64-55 15:40:00 Test Item Value Reference Range Interpretation Comments LDH (test code = LDH) 150 98-[address] [facility] CenterYmgndixGOBSUSWEA0404-24-67 15:40:00 Test Item Value Reference Range Interpretation Comments S Preg (test code = S Negative *NA*(04/11/22 Preg) 10:40 AM) [facility] CenterCoicyiaDVACJGULB9524-69-79 15:40:00 Test Item Value Reference Range Interpretation Comments TSH (test code = TSH) 1.580 0.360-3.740 [facility] CenterNsgeumwOWKSKLIYIHSNC3312-23-01 15:40:00 Test Item Value Reference Range Interpretation Comments S Preg (test code = S Negative *NA*(04/11/22 Preg) 10:40 AM) [facility] CampusLiqzjynKEXGUESMZM3535-95-40 15:40:00 Test Item Value Reference Range Interpretation Comments ACHr Binding Ab (test code = ACHr no gt Binding Ab) [facility] HospitalPfhxejiSCECSHWGXH3344-10-16 15:40:00 Test Item Value Reference Range Interpretation Comments ACHr Block Ab (test code = ACHr Block no gt Ab) [facility] DallasCotusctETWUVAJFGF5488-98-97 15:40:00 Test Item Value Reference Range Interpretation Comments ACHr Mod Ab (test code = ACHr Mod Ab) no gt [facility] CampusByxzelxSMWHEXSQLW5177-90-20 15:40:00 Test Item Value Reference Range Interpretation Comments Striated Muscle IgG (test code = NEGATIVE Striated Muscle IgG) [facility]2022-10-13 15:40:00 Test Item Value Reference Range Interpretation Comments AFP TM (test code = AFP TM) 2.5 [facility] HospitalannOCHSNER MEDICAL COMPLE[facility] – IBERVILLEYLNJIUX8142-39-37 15:40:00 Test Item Value Reference Range Interpretation Comments AFP TM (test code = AFP TM) 2.5 [facility] QAFEM8803-26-97 15:40:00 Test Item Value Reference Range Interpretation Comments LDH (test code = LDH) 150 98-[address] [facility] CenterEuiksppGKKFEYVDZ5813-28-84 15:40:00 Test Item Value Reference Range Interpretation Comments S Preg (test code = S Negative *NA*(04/11/22 Preg) 10:40 AM) [facility] CenterYfgmisgEGYATQNIC1799-76-63 15:40:00 Test Item Value Reference Range Interpretation Comments TSH (test code = TSH) 1.580 0.360-3.740 [place] [id number] 15:40:00 Test Item Value Reference Range Interpretation Comments S Preg (test code = S Negative *NA*(04/11/22 Preg) 10:40 AM) [facility] CampusNntjevoFBJUQFYGYF7747-27-94 15:40:00 Test Item Value Reference Range Interpretation Comments ACHr Binding Ab (test code = ACHr no gt Binding Ab) [facility] CampusYehensbWOOWUPATVM9426-91-14 15:40:00 Test Item Value Reference Range Interpretation Comments ACHr Block Ab (test code = ACHr Block no gt Ab) [facility] CampusQrisyizZUAQFXUFBV0796-05-41 15:40:00 Test Item Value Reference Range Interpretation Comments ACHr Mod Ab (test code = ACHr Mod Ab) no gt [facility] CampusLuezblvCQPAXTSUNK9962-47-30 15:40:00 Test Item Value Reference Range Interpretation Comments Striated Muscle IgG (test code = NEGATIVE Striated Muscle IgG) [facility]2022-10-13 15:40:00 Test Item Value Reference Range Interpretation Comments AFP TM (test code = AFP TM) 2.5 [facility] FRFAOYI8321-02-11 15:40:00 Test Item Value Reference Range Interpretation Comments AFP TM (test code = AFP TM) 2.5 [facility]CHE[facility] HCEZU1586-29-06 15:40:00 Test Item Value Reference Range Interpretation Comments LDH (test code = LDH) 150 98-192 [facility] HospitalKrmueebJQCKVBNAP0737-54-95 15:40:00 Test Item Value Reference Range Interpretation Comments S Preg (test code = S Negative *NA*(04/11/22 Preg) 10:40 AM) [facility] HospitalKwdldcsPVTKUIQIX7637-77-88 15:40:00 Test Item Value Reference Range Interpretation Comments TSH (test code = TSH) 1.580 0.360-3.740 [facility] HospitalDjzyojxJYZYUKEJAFJQM4337-06-45 15:40:00 Test Item Value Reference Range Interpretation Comments S Preg (test code = S Negative *NA*(04/11/22 Preg) 10:40 AM) [facility] IahakhrCGPTPHTWXU0427-12-08 15:40:00 Test Item Value Reference Range Interpretation Comments ACHr Binding Ab (test code = ACHr no gt Binding Ab) [facility] GejbgszUUCQYMNQRM8754-94-90 15:40:00 Test Item Value Reference Range Interpretation Comments ACHr Block Ab (test code = ACHr Block no gt Ab) [facility] KnzemzhGETAWHFPWE2558-00-56 15:40:00 Test Item Value Reference Range Interpretation Comments ACHr Mod Ab (test code = ACHr Mod Ab) no gt [facility] XkkeuhlEDNWYVQJYZ0068-16-54 15:40:00 Test Item Value Reference Range Interpretation Comments Striated Muscle IgG (test code = NEGATIVE Striated Muscle IgG) [facility] NZRVATU3846-74-36 15:40:00 Test Item Value Reference Range Interpretation Comments AFP TM (test code = AFP TM) 2.5 [facility] SXRXRGF7928-60-40 15:40:00 Test Item Value Reference Range Interpretation Comments AFP TM (test code = AFP TM) 2.5 [facility] HospitalannCHEM [id number] 15:40:00 Test Item Value Reference Range Interpretation Comments LDH (test code = LDH) 150 98-192 [facility] HospitalFywczyjLRUIJBQXK3106-69-84 15:40:00 Test Item Value Reference Range Interpretation Comments S Preg (test code = S Negative *NA*(10/13/22 Preg) 10:40 AM) [facility] HospitalHexonwpVAWLIRSML6610-40-30 15:40:00 Test Item Value Reference Range Interpretation Comments TSH (test code = TSH) 1.580 0.360-3.740 [facility] HospitalFovujvqVANSPIEIOVKXN0765-14-79 15:40:00 Test Item Value Reference Range Interpretation Comments S Preg (test code = S Negative *NA*(04/11/22 Preg) 10:40 AM) [facility] HospitalNfejcwkDDANVSFWRY9047-24-87 15:40:00 Test Item Value Reference Range Interpretation Comments ACHr Binding Ab (test code = ACHr no gt Binding Ab) [facility] HospitalJfjszuiLRXEQVVSNN4063-89-10 15:40:00 Test Item Value Reference Range Interpretation Comments ACHr Block Ab (test code = ACHr Block no gt Ab) [facility] HospitalSydwrvkUQNMESPAUD4084-18-04 15:40:00 Test Item Value Reference Range Interpretation Comments ACHr Mod Ab (test code = ACHr Mod Ab) no gt [facility] HospitalXrwbpvwTHVKNZIUJC4069-62-93 15:40:00 Test Item Value Reference Range Interpretation Comments Striated Muscle IgG (test code = NEGATIVE Striated Muscle IgG) [facility]annTUMOR OPMMLCD2306-37-52 15:40:00 Test Item Value Reference Range Interpretation Comments AFP TM (test code = AFP TM) 2.5 [facility] HermannTUMOR HXYRFIX8647-03-89 15:40:00 Test Item Value Reference Range Interpretation Comments AFP TM (test code = AFP TM) 2.5 [facility] HospitalannCHEM DMQWR4930-97-04 15:40:00 Test Item Value Reference Range Interpretation Comments LDH (test code = LDH) 150 98-192 [facility] HospitalDbtuhgyKJOYIOWAG6806-73-37 15:40:00 Test Item Value Reference Range Interpretation Comments S Preg (test code = S Negative *NA*(04/11/22 Preg) 10:40 AM) [facility] HospitalBqfsfivHBAFZFNGK2292-51-10 15:40:00 Test Item Value Reference Range Interpretation Comments TSH (test code = TSH) 1.580 0.360-3.740 [facility] HeightsTyzfytrALOPHZDBOQXZB4010-48-69 15:40:00 Test Item Value Reference Range Interpretation Comments S Preg (test code = S Negative *NA*(04/11/22 Preg) 10:40 AM) [facility] DallasMjpjbkhGEGCQBSQSH2580-24-40 15:40:00 Test Item Value Reference Range Interpretation Comments ACHr Binding Ab (test code = ACHr no gt Binding Ab) [facility] DallasIxvaiurQAMWZHBZCF5989-99-63 15:40:00 Test Item Value Reference Range Interpretation Comments ACHr Block Ab (test code = ACHr Block no gt Ab) [facility] DallasMjtkpypWWCSJDQTRG7637-67-02 15:40:00 Test Item Value Reference Range Interpretation Comments ACHr Mod Ab (test code = ACHr Mod Ab) no gt [facility] DallasOlytdleCSVLJEKETU3737-69-52 15:40:00 Test Item Value Reference Range Interpretation Comments Striated Muscle IgG (test code = NEGATIVE Striated Muscle IgG) [facility] SYFVXFX9289-19-12 15:40:00 Test Item Value Reference Range Interpretation Comments AFP TM (test code = AFP TM) 2.5 [facility] CGHBZFG2711-51-53 15:40:00 Test Item Value Reference Range Interpretation Comments AFP TM (test code = AFP TM) 2.5 [facility] YEMLT5100-56-01 15:40:00 Test Item Value Reference Range Interpretation Comments LDH (test code = LDH) 150 98-[address] [facility] CenterNbigmeuHERYTUYYF5972-80-46 15:40:00 Test Item Value Reference Range Interpretation Comments S Preg (test code = S Negative *NA*(04/11/22 Preg) 10:40 AM) [facility] CenterJfsdanaHRABFFWQY1262-72-59 15:40:00 Test Item Value Reference Range Interpretation Comments TSH (test code = TSH) 1.580 0.360-3.740 [facility] HospitalRijwwpvTCQCDEGWXTKYA9941-16-54 15:40:00 Test Item Value Reference Range Interpretation Comments S Preg (test code = S Negative *NA*(04/11/22 Preg) 10:40 AM) [facility] CampusPmrjgixSLCOGGEBGG7189-21-58 15:40:00 Test Item Value Reference Range Interpretation Comments ACHr Binding Ab (test code = ACHr no gt Binding Ab) [facility] CampusXvownrrCIJHPEMVVW2199-19-43 15:40:00 Test Item Value Reference Range Interpretation Comments ACHr Block Ab (test code = ACHr Block no gt Ab) [facility] CampusVwnuodeRTDTHRUTOA1895-88-27 15:40:00 Test Item Value Reference Range Interpretation Comments ACHr Mod Ab (test code = ACHr Mod Ab) no gt [facility] CampusOvsjizaUWIIERKIHT5032-84-44 15:40:00 Test Item Value Reference Range Interpretation Comments Striated Muscle IgG (test code = NEGATIVE Striated Muscle IgG) [facility] EYPNIJL8136-17-95 15:40:00 Test Item Value Reference Range Interpretation Comments AFP TM (test code = AFP TM) 2.5 [facility] NZGOHQY9560-90-99 15:40:00 Test Item Value Reference Range Interpretation Comments AFP TM (test code = AFP TM) 2.5 [facility]annCHE[facility] [id number] 15:40:00 Test Item Value Reference Range Interpretation Comments LDH (test code = LDH) 150 98-192 [facility] VoboqwmPAQENDMNM6393-30-15 15:40:00 Test Item Value Reference Range Interpretation Comments S Preg (test code = S Negative *NA*(04/11/22 Preg) 10:40 AM) [facility] HospitalCnqrsffSUZHPABNJ0338-50-17 15:40:00 Test Item Value Reference Range Interpretation Comments TSH (test code = TSH) 1.580 0.360-3.740 [facility] HospitalUrvqitgOPLRIYNFUKXFY6867-56-10 15:40:00 Test Item Value Reference Range Interpretation Comments S Preg (test code = S Negative *NA*(04/11/22 Preg) 10:40 AM) [facility] HospitalTzzcdtgOWSIXUELPB1882-57-71 15:40:00 Test Item Value Reference Range Interpretation Comments ACHr Binding Ab (test code = ACHr no gt Binding Ab) [facility] HospitalHmdhmvjJHXFVUCYQH5015-18-90 15:40:00 Test Item Value Reference Range Interpretation Comments ACHr Block Ab (test code = ACHr Block no gt Ab) [facility] HospitalIaafjbiQLCPIMLSXI4251-64-19 15:40:00 Test Item Value Reference Range Interpretation Comments ACHr Mod Ab (test code = ACHr Mod Ab) no gt [facility] ZfxwtnyMJVODINRNE8041-77-81 15:40:00 Test Item Value Reference Range Interpretation Comments Striated Muscle IgG (test code = NEGATIVE Striated Muscle IgG) [facility]annTUMOR JVNOXUY0239-38-56 15:40:00 Test Item Value Reference Range Interpretation Comments AFP TM (test code = AFP TM) 2.5 [facility] PZQAKPC7318-25-13 15:40:00 Test Item Value Reference Range Interpretation Comments AFP TM (test code = AFP TM) 2.5 [facility] HospitalannCHEM EVUFN1557-36-97 15:40:00 Test Item Value Reference Range Interpretation Comments LDH (test code = LDH) 150 98-192 [facility] HospitalUvmfmspJJFUEVXOO9397-19-75 15:40:00 Test Item Value Reference Range Interpretation Comments S Preg (test code = S Negative *NA*(04/11/22 Preg) 10:40 AM) [facility] HospitalEtckvexOCPYGZFFV8552-40-79 15:40:00 Test Item Value Reference Range Interpretation Comments TSH (test code = TSH) 1.580 0.360-3.740 [facility] HospitalJabqwthPFCPTBOTDBVTV6900-28-53 15:40:00 Test Item Value Reference Range Interpretation Comments S Preg (test code = S Negative *NA*(04/11/22 Preg) 10:40 AM) [facility] HospitalYejqjfdMLAHJGRLGJ0236-39-09 15:40:00 Test Item Value Reference Range Interpretation Comments ACHr Binding Ab (test code = ACHr no gt Binding Ab) [facility] HospitalXjrjfxyWMUJMFYDMW5461-33-17 15:40:00 Test Item Value Reference Range Interpretation Comments ACHr Block Ab (test code = ACHr Block no gt Ab) [facility] HospitalBhldcdqPZRYTIVGII4865-57-97 15:40:00 Test Item Value Reference Range Interpretation Comments ACHr Mod Ab (test code = ACHr Mod Ab) no gt [facility] WithkkcYRULKSUTPL7924-12-85 15:40:00 Test Item Value Reference Range Interpretation Comments Striated Muscle IgG (test code = NEGATIVE Striated Muscle IgG) [facility]annTUMOR PGAPEXZ2645-29-49 15:40:00 Test Item Value Reference Range Interpretation Comments AFP TM (test code = AFP TM) 2.5 [facility] HospitalannCHEM RQLEF8601-77-55 15:40:00 Test Item Value Reference Range Interpretation Comments LDH (test code = LDH) 150 98-192 [facility] HospitalQghhdhdEJRWSMMUE2594-05-91 15:40:00 Test Item Value Reference Range Interpretation Comments S Preg (test code = S Negative *NA*(04/11/22 Preg) 10:40 AM) [facility] HospitalOmnfbnmIKOJFQPUK4114-60-68 15:40:00 Test Item Value Reference Range Interpretation Comments TSH (test code = TSH) 1.580 0.360-3.740 [facility] HospitalOljysuhTLUOGUPSIBDIO1796-15-76 15:40:00 Test Item Value Reference Range Interpretation Comments S Preg (test code = S Negative *NA*(04/11/22 Preg) 10:40 AM) [facility] DallasZdxeeypJCJMXJGWUD3406-03-68 15:40:00 Test Item Value Reference Range Interpretation Comments ACHr Binding Ab (test code = ACHr no gt Binding Ab) [facility] DallasPzjhvkaBUZPMJGNHD8431-19-91 15:40:00 Test Item Value Reference Range Interpretation Comments ACHr Block Ab (test code = ACHr Block no gt Ab) [facility] HospitalWbcaqntRSFWVIBJWM4646-22-66 15:40:00 Test Item Value Reference Range Interpretation Comments ACHr Mod Ab (test code = ACHr Mod Ab) no gt [facility] HospitalSyanpnrPBZKZVZNYK9154-43-72 15:40:00 Test Item Value Reference Range Interpretation Comments Striated Muscle IgG (test code = NEGATIVE Striated Muscle IgG) [facility] CANTTTU3840-40-19 15:40:00 Test Item Value Reference Range Interpretation Comments AFP TM (test code = AFP TM) 2.5 [facility]annGRE[facility] [id number] 15:40:00 Test Item Value Reference Range Interpretation Comments AFP TM (test code = AFP TM) 2.5 [facility] HospitalannTUMOR ACOTJGI5419-04-13 15:40:00 Test Item Value Reference Range Interpretation Comments AFP TM (test code = AFP TM) 2.5 [facility] DallasUkybmiqYHDXRGUOEL8024-16-77 13:59:00 Test Item Value Reference Range Interpretation Comments Basophils # (test code 0.1 See_Comment [Aut omated message] The = Basophils #) system which generated this result tra nsmitted reference range : <=0.2. The reference r quynh was not used to int erpret this result as normal/abnormal . [facility]TfweckiCVRVNHVPPD1717-60-61 13:59:00 Test Item Value Reference Range Interpretation Comments Basophils # (test code 0.1 See_Comment [Aut omated message] The = Basophils #) system which generated this result tra nsmitted reference range : <=0.2. The reference r quynh was not used to int erpret this result as normal/abnormal . [facility]TvdxnbjUXZXDBJAPA9691-02-69 13:59:00 Test Item Value Reference Range Interpretation Comments Basophils # (test code 0.1 See_Comment [Aut omated message] The = Basophils #) system which generated this result tra nsmitted reference range : <=0.2. The reference r quynh was not used to int erpret this result as normal/abnormal . [place] [id number] 13:59:00 Test Item Value Reference Range Interpretation Comments Basophils # (test code 0.1 See_Comment [Aut omated message] The = Basophils #) system which generated this result tra nsmitted reference range : <=0.2. The reference r quynh was not used to int erpret this result as normal/abnormal . [place] [id number] 13:59:00 Test Item Value Reference Range Interpretation Comments Basophils # (test code 0.1 See_Comment [Aut omated message] The = Basophils #) system which generated this result tra nsmitted reference range : <=0.2. The reference r quynh was not used to int erpret this result as normal/abnormal . [place] [id number] 13:59:00 Test Item Value Reference Range Interpretation Comments Basophils # (test code 0.1 See_Comment [Aut omated message] The = Basophils #) system which generated this result tra nsmitted reference range : <=0.2. The reference r quynh was not used to int erpret this result as normal/abnormal . [place] [address]-10-13 13:59:00 Test Item Value Reference Range Interpretation Comments Basophils # (test code 0.1 See_Comment [Aut omated message] The = Basophils #) system which generated this result tra nsmitted reference range : <=0.2. The reference r quynh was not used to int erpret this result as normal/abnormal . [place] [id number] 13:59:00 Test Item Value Reference Range Interpretation Comments Basophils # (test code 0.1 See_Comment [Aut omated message] The = Basophils #) system which generated this result tra nsmitted reference range : <=0.2. The reference r quynh was not used to int erpret this result as normal/abnormal . [place] [address]-10-13 13:59:00 Test Item Value Reference Range Interpretation Comments Basophils # (test code 0.1 See_Comment [Aut omated message] The = Basophils #) system which generated this result tra nsmitted reference range : <=0.2. The reference r quynh was not used to int erpret this result as normal/abnormal . [place] [address]-10-13 13:59:00 Test Item Value Reference Range Interpretation Comments Basophils # (test code 0.1 See_Comment [Aut omated message] The = Basophils #) system which generated this result tra nsmitted reference range : <=0.2. The reference r quynh was not used to int erpret this result as normal/abnormal . [place] [address]-10-13 13:59:00 Test Item Value Reference Range Interpretation Comments Basophils # (test code 0.1 See_Comment [Aut omated message] The = Basophils #) system which generated this result tra nsmitted reference range : <=0.2. The reference r uqynh was not used to int erpret this result as normal/abnormal . [place] [address]-10-13 13:59:00 Test Item Value Reference Range Interpretation Comments Basophils # (test code 0.1 See_Comment [Aut omated message] The = Basophils #) system which generated this result tra nsmitted reference range : <=0.2. The reference r quynh was not used to int erpret this result as normal/abnormal . [place] [address]-10-13 13:59:00 Test Item Value Reference Range Interpretation Comments Basophils # (test code 0.1 See_Comment [Aut omated message] The = Basophils #) system which generated this result tra nsmitted reference range : <=0.2. The reference r quynh was not used to int erpret this result as normal/abnormal . [place] [address]-10-13 13:59:00 Test Item Value Reference Range Interpretation Comments Basophils # (test code 0.1 See_Comment [Aut omated message] The = Basophils #) system which generated this result tra nsmitted reference range : <=0.2. The reference r quynh was not used to int erpret this result as normal/abnormal . [place] [address]-10-13 13:59:00 Test Item Value Reference Range Interpretation Comments Basophils # (test code 0.1 See_Comment [Aut omated message] The = Basophils #) system which generated this result tra nsmitted reference range : <=0.2. The reference r quynh was not used to int erpret this result as normal/abnormal . [place] [address]-10-13 13:59:00 Test Item Value Reference Range Interpretation Comments Basophils # (test code 0.1 See_Comment [Aut omated message] The = Basophils #) system which generated this result tra nsmitted reference range : <=0.2. The reference r quynh was not used to int erpret this result as normal/abnormal . [place] [address]-10-13 13:59:00 Test Item Value Reference Range Interpretation Comments Basophils # (test code 0.1 See_Comment [Aut omated message] The = Basophils #) system which generated this result tra nsmitted reference range : <=0.2. The reference r quynh was not used to int erpret this result as normal/abnormal . [place] [address]-10-13 13:59:00 Test Item Value Reference Range Interpretation Comments Basophils # (test code 0.1 See_Comment [Aut omated message] The = Basophils #) system which generated this result tra nsmitted reference range : <=0.2. The reference r quynh was not used to int erpret this result as normal/abnormal . [place] [address]-10-13 13:59:00 Test Item Value Reference Range Interpretation Comments Basophils # (test code 0.1 See_Comment [Aut omated message] The = Basophils #) system which generated this result tra nsmitted reference range : <=0.2. The reference r quynh was not used to int erpret this result as normal/abnormal . [place] [address]-10-13 13:59:00 Test Item Value Reference Range Interpretation Comments Basophils # (test code 0.1 See_Comment [Aut omated message] The = Basophils #) system which generated this result tra nsmitted reference range : <=0.2. The reference r quynh was not used to int erpret this result as normal/abnormal . [place] [address]-10-13 13:59:00 Test Item Value Reference Range Interpretation Comments Basophils # (test code 0.1 See_Comment [Aut omated message] The = Basophils #) system which generated this result tra nsmitted reference range : <=0.2. The reference r quynh was not used to int erpret this result as normal/abnormal . [place] [address]-10-13 13:59:00 Test Item Value Reference Range Interpretation Comments Basophils # (test code 0.1 See_Comment [Aut omated message] The = Basophils #) system which generated this result tra nsmitted reference range : <=0.2. The reference r quynh was not used to int erpret this result as normal/abnormal . [place] [address]-10-13 13:59:00 Test Item Value Reference Range Interpretation Comments Basophils # (test code 0.1 See_Comment [Aut omated message] The = Basophils #) system which generated this result tra nsmitted reference range : <=0.2. The reference r quynh was not used to int erpret this result as normal/abnormal . [place] [address]-10-13 13:59:00 Test Item Value Reference Range Interpretation Comments Basophils # (test code 0.1 See_Comment [Aut omated message] The = Basophils #) system which generated this result tra nsmitted reference range : <=0.2. The reference r quynh was not used to int erpret this result as normal/abnormal . [place] [address]-10-13 13:59:00 Test Item Value Reference Range Interpretation Comments Basophils # (test code 0.1 See_Comment [Aut omated message] The = Basophils #) system which generated this result tra nsmitted reference range : <=0.2. The reference r quynh was not used to int erpret this result as normal/abnormal . [place] [address]-10-13 13:59:00 Test Item Value Reference Range Interpretation Comments Basophils # (test code 0.1 See_Comment [Aut omated message] The = Basophils #) system which generated this result tra nsmitted reference range : <=0.2. The reference r quynh was not used to int erpret this result as normal/abnormal . [place] [address]-10-13 13:59:00 Test Item Value Reference Range Interpretation Comments Basophils # (test code 0.1 See_Comment [Aut omated message] The = Basophils #) system which generated this result tra nsmitted reference range : <=0.2. The reference r quynh was not used to int erpret this result as normal/abnormal . [place] [address]-10-13 13:59:00 Test Item Value Reference Range Interpretation Comments Basophils # (test code 0.1 See_Comment [Aut omated message] The = Basophils #) system which generated this result tra nsmitted reference range : <=0.2. The reference r quynh was not used to int erpret this result as normal/abnormal . [place] [address]-10-13 13:59:00 Test Item Value Reference Range Interpretation Comments Basophils # (test code 0.1 See_Comment [Aut omated message] The = Basophils #) system which generated this result tra nsmitted reference range : <=0.2. The reference r quynh was not used to int erpret this result as normal/abnormal . [place] [address]-10-13 13:59:00 Test Item Value Reference Range Interpretation Comments Basophils # (test code 0.1 See_Comment [Aut omated message] The = Basophils #) system which generated this result tra nsmitted reference range : <=0.2. The reference r quynh was not used to int erpret this result as normal/abnormal . [place] [address]-10-13 13:59:00 Test Item Value Reference Range Interpretation Comments Basophils # (test code 0.1 See_Comment [Aut omated message] The = Basophils #) system which generated this result tra nsmitted reference range : <=0.2. The reference r quynh was not used to int erpret this result as normal/abnormal . [place] [address]-10-13 13:59:00 Test Item Value Reference Range Interpretation Comments Basophils # (test code 0.1 See_Comment [Aut omated message] The = Basophils #) system which generated this result tra nsmitted reference range : <=0.2. The reference r quynh was not used to int erpret this result as normal/abnormal . [facility] [id number] 08:34:00 Test Item Value Reference Range Interpretation Comments Procalcitonin Lvl <0.05 ng/mL See_Comment [Automate d message] (test code = The system [employer] Procalcitonin Lvl) generated this result transmit fabiano reference range : <=0.10. The reference range was not used to interpret this result as normal/abnormal . [facility] [id number] 08:34:00 Test Item Value Reference Range Interpretation Comments Procalcitonin Lvl <0.05 ng/mL See_Comment [Automate d message] (test code = The system whic h Procalcitonin Lvl) generated this result transmit fabiano reference range : <=0.10. The reference range was not used to interpret this result as normal/abnormal . [place] [address]-10-13 08:34:00 Test Item Value Reference Range Interpretation Comments Procalcitonin Lvl <0.05 ng/mL See_Comment [Automate d message] (test code = The system whic h Procalcitonin Lvl) generated this result transmit fabiano reference range : <=0.10. The reference range was not used to interpret this result as normal/abnormal . [place] [address]-10-13 08:34:00 Test Item Value Reference Range Interpretation Comments Procalcitonin Lvl <0.05 ng/mL See_Comment [Automate d message] (test code = The system whic h Procalcitonin Lvl) generated this result transmit fabiano reference range : <=0.10. The reference range was not used to interpret this result as normal/abnormal . [facility] [id number] 08:34:00 Test Item Value Reference Range Interpretation Comments Procalcitonin Lvl <0.05 ng/mL See_Comment [Automate d message] (test code = The system whic h Procalcitonin Lvl) generated this result transmit fabiano reference range : <=0.10. The reference range was not used to interpret this result as normal/abnormal . [facility] [id number] 08:34:00 Test Item Value Reference Range Interpretation Comments Procalcitonin Lvl <0.05 ng/mL See_Comment [Automate d message] (test code = The system whic h Procalcitonin Lvl) generated this result transmit fabiano reference range : <=0.10. The reference range was not used to interpret this result as normal/abnormal . [facility] [id number] 08:34:00 Test Item Value Reference Range Interpretation Comments Procalcitonin Lvl <0.05 ng/mL See_Comment [Automate d message] (test code = The system whic h Procalcitonin Lvl) generated this result transmit fabiano reference range : <=0.10. The reference range was not used to interpret this result as normal/abnormal . [facility] [id number] 08:34:00 Test Item Value Reference Range Interpretation Comments Procalcitonin Lvl <0.05 ng/mL See_Comment [Automate d message] (test code = The system whic h Procalcitonin Lvl) generated this result transmit fabiano reference range : <=0.10. The reference range was not used to interpret this result as normal/abnormal . [address]13 08:34:00 Test Item Value Reference Range Interpretation Comments Procalcitonin Lvl <0.05 ng/mL See_Comment [Automate d message] (test code = The system whic h Procalcitonin Lvl) generated this result transmit fabiano reference range : <=0.10. The reference range was not used to interpret this result as normal/abnormal . [place] [address]-13 08:34:00 Test Item Value Reference Range Interpretation Comments Procalcitonin Lvl <0.05 ng/mL See_Comment [Automate d message] (test code = The system whic h Procalcitonin Lvl) generated this result transmit fabiano reference range : <=0.10. The reference range was not used to interpret this result as normal/abnormal . [address] 08:34:00 Test Item Value Reference Range Interpretation Comments Procalcitonin Lvl <0.05 ng/mL See_Comment [Automate d message] (test code = The system whic h Procalcitonin Lvl) generated this result transmit fabiano reference range : <=0.10. The reference range was not used to interpret this result as normal/abnormal . [address] 08:34:00 Test Item Value Reference Range Interpretation Comments Procalcitonin Lvl <0.05 ng/mL See_Comment [Automate d message] (test code = The system whic h Procalcitonin Lvl) generated this result transmit fabiano reference range : <=0.10. The reference range was not used to interpret this result as normal/abnormal . [address] 08:34:00 Test Item Value Reference Range Interpretation Comments Procalcitonin Lvl <0.05 ng/mL See_Comment [Automate d message] (test code = The system whic h Procalcitonin Lvl) generated this result transmit fabiano reference range : <=0.10. The reference range was not used to interpret this result as normal/abnormal . [place] [address]-13 08:34:00 Test Item Value Reference Range Interpretation Comments Procalcitonin Lvl <0.05 ng/mL See_Comment [Automate d message] (test code = The system whic h Procalcitonin Lvl) generated this result transmit fabiano reference range : <=0.10. The reference range was not used to interpret this result as normal/abnormal . [place] [address]-13 08:34:00 Test Item Value Reference Range Interpretation Comments Procalcitonin Lvl <0.05 ng/mL See_Comment [Automate d message] (test code = The system whic h Procalcitonin Lvl) generated this result transmit fabiano reference range : <=0.10. The reference range was not used to interpret this result as normal/abnormal . [place] [address]-13 08:34:00 Test Item Value Reference Range Interpretation Comments Procalcitonin Lvl <0.05 ng/mL See_Comment [Automate d message] (test code = The system whic h Procalcitonin Lvl) generated this result transmit fabiano reference range : <=0.10. The reference range was not used to interpret this result as normal/abnormal . [place] [address]-13 08:34:00 Test Item Value Reference Range Interpretation Comments Procalcitonin Lvl <0.05 ng/mL See_Comment [Automate d message] (test code = The system whic h Procalcitonin Lvl) generated this result transmit fabiano reference range : <=0.10. The reference range was not used to interpret this result as normal/abnormal . [place] [address]-13 08:34:00 Test Item Value Reference Range Interpretation Comments Procalcitonin Lvl <0.05 ng/mL See_Comment [Automate d message] (test code = The system whic h Procalcitonin Lvl) generated this result transmit fabiano reference range : <=0.10. The reference range was not used to interpret this result as normal/abnormal . [address] 08:34:00 Test Item Value Reference Range Interpretation Comments Procalcitonin Lvl <0.05 ng/mL See_Comment [Automate d message] (test code = The system whic h Procalcitonin Lvl) generated this result transmit fabiano reference range : <=0.10. The reference range was not used to interpret this result as normal/abnormal . [address]10-13 08:34:00 Test Item Value Reference Range Interpretation Comments Procalcitonin Lvl <0.05 ng/mL See_Comment [Automate d message] (test code = The system whic h Procalcitonin Lvl) generated this result transmit fabiano reference range : <=0.10. The reference range was not used to interpret this result as normal/abnormal . [address]10-13 08:34:00 Test Item Value Reference Range Interpretation Comments Procalcitonin Lvl <0.05 ng/mL See_Comment [Automate d message] (test code = The system whic h Procalcitonin Lvl) generated this result transmit fabiano reference range : <=0.10. The reference range was not used to interpret this result as normal/abnormal . [address]10-13 08:34:00 Test Item Value Reference Range Interpretation Comments Procalcitonin Lvl <0.05 ng/mL See_Comment [Automate d message] (test code = The system whic h Procalcitonin Lvl) generated this result transmit fabiano reference range : <=0.10. The reference range was not used to interpret this result as normal/abnormal . [address]10-13 08:34:00 Test Item Value Reference Range Interpretation Comments Procalcitonin Lvl <0.05 ng/mL See_Comment [Automate d message] (test code = The system whic h Procalcitonin Lvl) generated this result transmit fabiano reference range : <=0.10. The reference range was not used to interpret this result as normal/abnormal . [address]10-13 08:34:00 Test Item Value Reference Range Interpretation Comments Procalcitonin Lvl <0.05 ng/mL See_Comment [Automate d message] (test code = The system whic h Procalcitonin Lvl) generated this result transmit fabiano reference range : <=0.10. The reference range was not used to interpret this result as normal/abnormal . [place] 786342-10-13 08:34:00 Test Item Value Reference Range Interpretation Comments Procalcitonin Lvl <0.05 ng/mL See_Comment [Automate d message] (test code = The system whic h Procalcitonin Lvl) generated this result transmit fabiano reference range : <=0.10. The reference range was not used to interpret this result as normal/abnormal . [address]10-13 08:34:00 Test Item Value Reference Range Interpretation Comments Procalcitonin Lvl <0.05 ng/mL See_Comment [Automate d message] (test code = The system whic h Procalcitonin Lvl) generated this result transmit fabiano reference range : <=0.10. The reference range was not used to interpret this result as normal/abnormal . [address]10-13 08:34:00 Test Item Value Reference Range Interpretation Comments Procalcitonin Lvl <0.05 ng/mL See_Comment [Automate d message] (test code = The system whic h Procalcitonin Lvl) generated this result transmit fabiano reference range : <=0.10. The reference range was not used to interpret this result as normal/abnormal . [place] [address]-10-13 08:34:00 Test Item Value Reference Range Interpretation Comments Procalcitonin Lvl <0.05 ng/mL See_Comment [Automate d message] (test code = The system whic h Procalcitonin Lvl) generated this result transmit fabiano reference range : <=0.10. The reference range was not used to interpret this result as normal/abnormal . [place] [address]-10-13 08:34:00 Test Item Value Reference Range Interpretation Comments Procalcitonin Lvl <0.05 ng/mL See_Comment [Automate d message] (test code = The system whic h Procalcitonin Lvl) generated this result transmit fabiano reference range : <=0.10. The reference range was not used to interpret this result as normal/abnormal . [facility] [id number] 08:34:00 Test Item Value Reference Range Interpretation Comments Procalcitonin Lvl <0.05 ng/mL See_Comment [Automate d message] (test code = The system whic h Procalcitonin Lvl) generated this result transmit fabiano reference range : <=0.10. The reference range was not used to interpret this result as normal/abnormal . [address]10-13 08:34:00 Test Item Value Reference Range Interpretation Comments Procalcitonin Lvl <0.05 ng/mL See_Comment [Automate d message] (test code = The system ic h Procalcitonin Lvl) generated this result transmit fabiano reference range : <=0.10. The reference range was not used to interpret this result as normal/abnormal . [place] [address]-10-13 08:34:00 Test Item Value Reference Range Interpretation Comments Procalcitonin Lvl <0.05 ng/mL See_Comment [Automate d message] (test code = The system ic h Procalcitonin Lvl) generated this result transmit fabiano reference range : <=0.10. The reference range was not used to interpret this result as normal/abnormal . [place] [address]-10-13 05:01:00 Test Item Value Reference Range Interpretation Comments Glucose POC (test code = Glucose POC) 123 70[place] [address]-10-13 05:01:00 Test Item Value Reference Range Interpretation Comments Glucose POC (test code = Glucose POC) [address] [place] [address]-10-13 05:01:00 Test Item Value Reference Range Interpretation Comments Glucose POC (test code = Glucose POC) [address] [place] [address]-10-13 05:01:00 Test Item Value Reference Range Interpretation Comments Glucose POC (test code = Glucose POC) 123 70[address] [place] [address]-10-13 05:01:00 Test Item Value Reference Range Interpretation Comments Glucose POC (test code = Glucose POC) 123 [address] [place] [address]-10-13 05:01:00 Test Item Value Reference Range Interpretation Comments Glucose POC (test code = Glucose POC) 123 70[address]99 [place] [address]-10-13 05:01:00 Test Item Value Reference Range Interpretation Comments Glucose POC (test code = Glucose POC) [address] [id number] 05:01:00 Test Item Value Reference Range Interpretation Comments Glucose POC (test code = Glucose POC) [address] [place], [place] 670492-10-13 05:01:00 Test Item Value Reference Range Interpretation Comments Glucose POC (test code = Glucose POC) [address] [place] [address]-10-13 05:01:00 Test Item Value Reference Range Interpretation Comments Glucose POC (test code = Glucose POC) [address] [place] [address]-10-13 05:01:00 Test Item Value Reference Range Interpretation Comments Glucose POC (test code = Glucose POC) [address] [place] [address]-10-13 05:01:00 Test Item Value Reference Range Interpretation Comments Glucose POC (test code = Glucose POC) [address] [place] [address]-10-13 05:01:00 Test Item Value Reference Range Interpretation Comments Glucose POC (test code = Glucose POC) [address] [place] [address]-10-13 05:01:00 Test Item Value Reference Range Interpretation Comments Glucose POC (test code = Glucose POC) [address] [place] [address]-10-13 05:01:00 Test Item Value Reference Range Interpretation Comments Glucose POC (test code = Glucose POC) [address] [place] [address]-10-13 05:01:00 Test Item Value Reference Range Interpretation Comments Glucose POC (test code = Glucose POC) [address] [place], [place] 670492-10-13 05:01:00 Test Item Value Reference Range Interpretation Comments Glucose POC (test code = Glucose POC) [address] [place] [address]-10-13 05:01:00 Test Item Value Reference Range Interpretation Comments Glucose POC (test code = Glucose POC) [address] [place] [address]-10-13 05:01:00 Test Item Value Reference Range Interpretation Comments Glucose POC (test code = Glucose POC) [address] [place] [address]-10-13 05:01:00 Test Item Value Reference Range Interpretation Comments Glucose POC (test code = Glucose POC) [address] [place] [address]-10-13 05:01:00 Test Item Value Reference Range Interpretation Comments Glucose POC (test code = Glucose POC) [address] [place] [address]-10-13 05:01:00 Test Item Value Reference Range Interpretation Comments Glucose POC (test code = Glucose POC) [address] [place] [address]-10-13 05:01:00 Test Item Value Reference Range Interpretation Comments Glucose POC (test code = Glucose POC) [address] [place] [address]-10-13 05:01:00 Test Item Value Reference Range Interpretation Comments Glucose POC (test code = Glucose POC) [address] [place] [address]-10-13 05:01:00 Test Item Value Reference Range Interpretation Comments Glucose POC (test code = Glucose POC) [address] [place] [address]-10-13 05:01:00 Test Item Value Reference Range Interpretation Comments Glucose POC (test code = Glucose POC) [address] [place] [address]-10-13 05:01:00 Test Item Value Reference Range Interpretation Comments Glucose POC (test code = Glucose POC) [address] [place] [address]-10-13 05:01:00 Test Item Value Reference Range Interpretation Comments Glucose POC (test code = Glucose POC) [address] [place] [address]-10-13 05:01:00 Test Item Value Reference Range Interpretation Comments Glucose POC (test code = Glucose POC) [address] [place] [address]-10-13 05:01:00 Test Item Value Reference Range Interpretation Comments Glucose POC (test code = Glucose POC) [address] [place], [place] 670492-10-13 05:01:00 Test Item Value Reference Range Interpretation Comments Glucose POC (test code = Glucose POC) [address] [place] [address]-10-13 05:01:00 Test Item Value Reference Range Interpretation Comments Glucose POC (test code = Glucose POC) [address] [place], [place] 251402-10-13 04:37:19 Test Item Value Reference Range Interpretation [...] demonstrates no gross abnormalities.Impression:No acute cardiopulmonary disease [place] [address]-10-13 04:37:19 Test Item Value Reference Range Interpretation [...] demonstrates no gross abnormalities.Impression:No acute cardiopulmonary disease [place] [address]-10-13 04:37:19 Test Item Value Reference Range Interpretation [...] demonstrates no gross abnormalities.Impression:No acute cardiopulmonary disease [place] [address]-10-13 04:37:19 Test Item Value Reference Range Interpretation [...] demonstrates no gross abnormalities.Impression:No acute cardiopulmonary disease [place] [address]-10-13 04:37:19 Test Item Value Reference Range Interpretation [...] demonstrates no gross abnormalities.Impression:No acute cardiopulmonary disease [place] [address]-10-13 04:37:19 Test Item Value Reference Range Interpretation [...] demonstrates no gross abnormalities.Impression:No acute cardiopulmonary disease [place] [address]-10-13 04:37:19 Test Item Value Reference Range Interpretation [...] demonstrates no gross abnormalities.Impression:No acute cardiopulmonary disease [place] [address]-10-13 04:37:19 Test Item Value Reference Range Interpretation [...] demonstrates no gross abnormalities.Impression:No acute cardiopulmonary disease [place] [address]-10-13 04:37:19 Test Item Value Reference Range Interpretation [...] demonstrates no gross abnormalities.Impression:No acute cardiopulmonary disease [place] [address]-10-13 04:37:19 Test Item Value Reference Range Interpretation [...] demonstrates no gross abnormalities.Impression:No acute cardiopulmonary disease [place] [address]-10-13 04:37:19 Test Item Value Reference Range Interpretation [...] demonstrates no gross abnormalities.Impression:No acute cardiopulmonary disease [place] [address]-10-13 04:37:19 Test Item Value Reference Range Interpretation [...] demonstrates no gross abnormalities.Impression:No acute cardiopulmonary disease [place] [address]-10-13 04:37:19 Test Item Value Reference Range Interpretation [...] demonstrates no gross abnormalities.Impression:No acute cardiopulmonary disease [place] [address]-10-13 04:37:19 Test Item Value Reference Range Interpretation [...] demonstrates no gross abnormalities.Impression:No acute cardiopulmonary disease [place] [address]-10-13 04:37:19 Test Item Value Reference Range Interpretation [...] demonstrates no gross abnormalities.Impression:No acute cardiopulmonary disease [place] 780862-10-13 04:37:19 Test Item Value Reference Range Interpretation [...] demonstrates no gross abnormalities.Impression:No acute cardiopulmonary disease [place] [address]-10-13 04:37:19 Test Item Value Reference Range Interpretation [...] demonstrates no gross abnormalities.Impression:No acute cardiopulmonary disease [place] [address]-10-13 04:37:19 Test Item Value Reference Range Interpretation [...] demonstrates no gross abnormalities.Impression:No acute cardiopulmonary disease [place] 780862-10-13 04:37:19 Test Item Value Reference Range Interpretation [...] demonstrates no gross abnormalities.Impression:No acute cardiopulmonary disease [place] 780862-10-13 04:37:19 Test Item Value Reference Range Interpretation [...] demonstrates no gross abnormalities.Impression:No acute cardiopulmonary disease [place] 780862-10-13 04:37:19 Test Item Value Reference Range Interpretation [...] demonstrates no gross abnormalities.Impression:No acute cardiopulmonary disease [place] [address]-10-13 04:37:19 Test Item Value Reference Range Interpretation [...] demonstrates no gross abnormalities.Impression:No acute cardiopulmonary disease [place] [address]-10-13 04:37:19 Test Item Value Reference Range Interpretation [...] demonstrates no gross abnormalities.Impression:No acute cardiopulmonary disease [place] [address]-10-13 04:37:19 Test Item Value Reference Range Interpretation [...] demonstrates no gross abnormalities.Impression:No acute cardiopulmonary disease [place] 780862-10-13 04:37:19 Test Item Value Reference Range Interpretation [...] demonstrates no gross abnormalities.Impression:No acute cardiopulmonary disease [place] 780862-10-13 04:37:19 Test Item Value Reference Range Interpretation [...] demonstrates no gross abnormalities.Impression:No acute cardiopulmonary disease [place] 780862-10-13 04:37:19 Test Item Value Reference Range Interpretation [...] demonstrates no gross abnormalities.Impression:No acute cardiopulmonary disease [place] [address]-10-13 04:37:19 Test Item Value Reference Range Interpretation [...] demonstrates no gross abnormalities.Impression:No acute cardiopulmonary disease [place] [id number] 04:37:19 Test Item Value Reference Range Interpretation [...] demonstrates no gross abnormalities.Impression:No acute cardiopulmonary disease [place] [id number] 04:37:19 Test Item Value Reference Range Interpretation [...] demonstrates no gross abnormalities.Impression:No acute cardiopulmonary disease [place] [id number] 04:37:19 Test Item Value Reference Range Interpretation [...] demonstrates no gross abnormalities.Impression:No acute cardiopulmonary disease [place] [id number] 04:37:19 Test Item Value Reference Range Interpretation [...] demonstrates no gross abnormalities.Impression:No acute cardiopulmonary disease [facility] CHEST W/O CONTRAST *WW*2022-04-10 13:50:06 [facility]ENTERName: [facility]ELA [facility]OT[facility]AYOR : 1970 Sex: FCT [...] the upper abdomen demonstrates no significant abnormality. BLACKENER shunt catheter tubing in the anterior right [...] Alcocer MD 04/10/2022 1:50 PM CDT Workstation: [id number] ABUSE *WW*2022-04-10 13:04:00 Test Item Value [...] as normal/abnormal . GFR 120 See_Comment [Automated KYRGYZ (test mL/min/1.73m\\S\\2 message] The code = GFRAA) [...] A84) <2.50 pg/mL 0.00-45.20 CBC (INCLUDES AUTOMATED DIFFERENTIAL)*[id number] 12:34:00 Test Item Value Reference Range Interpretation [...] - Respiratory specimen by OSCAR with probe [id number] 18:41:27 Test Item Value Reference Range Interpretation Comments Influenza A (test code = Influenza negative A) Influenza B (test code = Influenza negative B) RSV (test code = RSV) negative Sars Cov 2 (test code = Sars Cov 2) negative [facility] [Presence] in [id number] 00:00:00 Test Item Value Reference Range Interpretation Comments noninvasive colorectal cancer DNA + negative occult blood screening, ql, stool (test code = noninvasive colorectal cancer DNA + occult blood screening, ql, stool) [facility]CROSCOPICOW 2022-02-13 16:31:00 Test [...] ABDOMEN AND PELVIS WITH CONTRAST *OW*2022-02-13 16:11:39 [facility] CENTERName: MELA SOTOMAYOR : 1970 Sex: FEXAMINATION:CT AB [...] focal lesions. Bile ducts are of normal caliber.BLACKENER shunt tubing tip at adjacent to the [...] Andrew Cardenas MD 02/13/2022 4:11 PM CDT [id number] Panel *OW* ramona 2022-02-13 15:36:00 Test [...] 25 mmol/L 18-33 GENERAL CHEMISTRY 13 *OW* [id number] 15:35:00 Test Item Value Reference Range Interpretation [...] NA (test code = 142 mmol/L 135-145 1968304784) K (test code = 3.5 mmol/L 3.5-5 1783499897) CL (test code = 106 mmol/L 98-108 2457763762) CO2 TOTAL (test code 30 mmol/L 23-31 = 9304756521) AGAP (test code = 2-16 2971181180) BUN (test code = 9 mg/dL 7-23 2901564134) GLUCOSE (test code = 108 mg/dL 70-110 0509429232) CREATININE (test code 0.61 mg/dL 0.5-1.04 = 8670187088) CALCIUM (test code = 9.0 mg/dL 8.6-10.6 6882948282) eGFR (test code = mL/min/1.73m2 6676071041) SILVINA (test code = SILVINA) Association of [...] or urine or abnormalities in imaging tests). [facility] WITH [id number] 15:22:45 Test Item Value Reference Range Interpretation Comments WBC (test code = See_Comment H [Automated 6503-2) message] The sy stem which generated this result transmitted reference range : 4.30 - 11.10 10*3/?L. The reference range was not used to interpret this result as normal/abnormal . RBC (test code = See_Comment [Automated 844-8) message] The sy stem which generated this [...] RDW-SD (test code = 43.5 fL 39-49.9 49428-9) RDW-CV (test code = 14.6 % 12-15.5 788-0) PLT (test code = See_Comment [Automated 777-3) message] The sy stem which generated this result transmitted reference range : 166 - 358 10*3/ ?L. The reference r quynh was not used to interpret this result as normal/abnormal . MPV (test code = 10.3 fL 9.5-12.9 40939-1) NRBC/100 WBC (test See_Comment [Automat ed code = 4585209144) message] The system which generated this result transmitted reference range : 0.0 - 10.0 /100 WBCs. The refer ence range was not u sed to interpret th is result as normal/abnormal . NRBC x10^3 (test code See_Comment [Auto mated = 7347580624) message] The s ystem which generated this result transmitted reference range : 10*3/?L. The reference range was not used to interpret this result as normal/abnormal . GRAN MAT (NEUT) % 73.9 % (test code = 770-8) IMM GRAN % (test code 0.30 % = 0561952045) LYMPH % (test code = 16.1 % 736-9) MONO % (test code = 7.9 % 5905-5) EOS % (test code = 1.4 % 713-8) BASO % (test code = 0.4 % 706-2) GRAN MAT x10^3(ANC) 8.36 10*3/uL 1.88-7.09 H (test code = 8717411735) IMM GRAN x10^3 (test 0.03 10*3/uL 0-0.06 code = 6264278511) LYMPH x10^3 (test code 1.82 10*3/uL 1.32-3.29 = 731-0) MONO x10^3 (test code 0.89 10*3/uL 0.33-0.92 = 742-7) EOS x10^3 (test code = 0.16 10*3/uL 0.03-0.39 711-2) BASO x10^3 (test code 0.04 10*3/uL 0.01-0.07 = 704-7) Lab Interpretation Abnormal (test code = 67016-3) [facility] W Auto Differential panel - Blood [...] = 706-2) immature cells (test code = continuing education instructor immature cells) Neutrophils [#/volume] in Blood 8.4 [...] Blood by Automated count (test code = 36750-8) Immature granulocytes 0.1 x10e3/uL 0.0-0.1 [#/volume] in Blood by Automated count (test code = 56695-4) Nucleated erythrocytes/100 continuing education instructor leukocytes [Ratio] in Blood by Automated count (test code = 78553-1) Morphology [Interpretation] in continuing education instructor Blood Narrative (test code = 46465-0) [facility] ProgramComprehensive metabolic 2000 panel - Serum or [id number] 00:00:00 Test Item Value Reference Range Interpretation [...] mg/dL 8.7-10.2 or Plasma (test code = 95654-6) Protein [Mass/volume] in Serum 7.0 g/dL 6.0-8.5 or Plasma (test code = 2885-2) Albumin [Mass/volume] in Serum 4.2 g/dL 3.8-4.9 or Plasma (test code = 1751-7) Globulin [Mass/volume] in 2.8 g/dL 1.5-4.5 Serum by calculation (test code = 04847-5) Albumin/Globulin [Mass Ratio] 1.5 1.2-2.2 in Serum [...] Serum or Plasma (test code = 1742-6) [facility] ProgramLipase [Enzymatic activity/volume] in Serum or [id number] 00:00:00 Test Item Value Reference Range Interpretation Comments Lipase [Enzymatic activity/volume] in 32 U/L 14-72 Serum or Plasma (test code = 3040-3) [facility] W Auto Differential panel - Blood [...] = 706-2) immature cells (test code = continuing education instructor immature cells) Neutrophils [#/volume] in Blood 8.4 [...] Blood by Automated count (test code = 73933-2) Immature granulocytes 0.1 x10e3/uL 0.0-0.1 [#/volume] in Blood by Automated count (test code = 52989-5) Nucleated erythrocytes/100 continuing education instructor leukocytes [Ratio] in Blood by Automated count (test code = 58290-1) Morphology [Interpretation] in continuing education instructor Blood Narrative (test code = 14961-4) [facility] ProgramComprehensive metabolic 2000 panel - Serum or [id number] 00:00:00 Test Item Value Reference Range Interpretation [...] mg/dL 8.7-10.2 or Plasma (test code = 04626-3) Protein [Mass/volume] in Serum 7.0 g/dL 6.0-8.5 or Plasma (test code = 2885-2) Albumin [Mass/volume] in Serum 4.2 g/dL 3.8-4.9 or Plasma (test code = 1751-7) Globulin [Mass/volume] in 2.8 g/dL 1.5-4.5 Serum by calculation (test code = 63091-8) Albumin/Globulin [Mass Ratio] 1.5 1.2-2.2 in Serum [...] Serum or Plasma (test code = 1742-6) [facility] [Enzym[facility] activity/volume] in Serum or [id number] 00:00:00 Test Item Value Reference Range Interpretation Comments Lipase [Enzymatic activity/volume] in 32 U/L 14-72 Serum or Plasma (test code = 3040-3) [facility] Centerinflu[facility] virus A + B and SARS CoV 2 (COVID-19) and RSV RNA panel, OSCAR+probe, respiratory [id number] 20:23:00 Test Item Value Reference Range Interpretation Comments Influenza A (test code = Influenza negative A) Influenza B (test code = Influenza negative B) RSV (test code = RSV) negative Sars Cov 2 (test code = Sars Cov 2) [facility] WH 2021-03-13 16:58:00 Test Item Value Reference Range Interpretation Comments SARS-CoV (ANTIGEN) NEGATIVE NEGATIVE (test code = COVAG) COVID AG (test This test has been code = COVAGC) marketed under the FDA Emergency Use Authorization (EUA) to meet challenges of the COVID-19 pandemic. The validation standards normally enforced by the FDA and the College of the [employer] (CAP) are more stringent than those [...] [Auto mated message] = GDDI) The system [employer] generated this result transmitted ref erence range: [...] as aleks l/abnormal. MetyLyte 8 Panel *OW* [id number] 15:13:00 Test Item Value Reference Range Interpretation [...] XR CHEST 1 VIEW PORTABLE *OW*2021-03-13 14:51:38 [facility] : 1970 Sex: FCHEST, FRONTAL VIEW HISTORY: cough sobCOMPARISON: None.FINDINGS: The lungs are clear without consolidation. No pleural effusion or pneumothorax. The heart size is normal. The bones are unremarkable.IMPRESSION:No evidence of acute cardiopulmonary disease.Electronically signed by: Arben Dow MD 03/13/2021 2:51 PM CDT [id number] 10:20:00 Test Item Value Reference Range Interpretation [...] the FDA and the College of the [employer] (CAP) are more stringent than those required for this test. Therefore, the result should be interpreted with caution and close attention to other clinical and epidemiological data INFLUENZA A AND B OW2020-07-16 16:10:00 Test Item Value Reference Range Interpretation Comments INFLUENZ A (test code = INFA) NEGATIVE NEGATIVE INFLUENZ B (test code = INFB) NEGATIVE NEGATIVE METLAC 12 PANEL *OW* [id number] 16:06:00 Test Item Value Reference Range Interpretation [...] 4.0 mg/dL 2.2-4.1 [employer] 8 Panel *OW* [id number] 16:02:00 Test Item Value Reference Range Interpretation [...] 30 mmol/L 18-33 GENERAL CHEMISTRY 13 *OW* [id number] 15:51:00 Test Item Value Reference Range Interpretation [...] Comprehensive metabolic 2000 panel - Serum or [id number] 00:00:00 Test Item Value Reference Range Interpretation [...] code = ALT) 83 U/L 5-40 H [facility] ProgramMicroalbumin/Creatinine [Mass Ratio] in [id number] 00:00:00 Test Item Value Reference Range Interpretation Comments creatinine, urine, conc. (test 171.3 mg/dL not estab code = creatinine, urine, conc.) albumin, urine, random (test code 1.2 mg/dL = albumin, urine, random) calc albumin/creat, rnd (test 7 mg/g <30 code = calc albumin/creat, rnd) [facility] Auto Differential [facility] - [...] code = 245 K/uL 130-400 platelet count) [facility] CenterThyrotropin [Units/volume] in Serum or [id number] 00:00:00 Test Item Value Reference Range Interpretation Comments TSH reflex to free T4 (test code 1.040 uIU/mL 0.400-4.100 = TSH reflex to free T4) [facility] CenterLipid 1996 panel - Serum or [...] = 2.65 ratio <3.22 risk ratio LDL/HDL) [facility] MICROSCOPICOW 2020-05-01 15:38:00 Test [...] code = LEUK) MAMMOGRAM SCREENING CAD INC [id number] 09:11:15Addendum:Comparison is made to outside exam dated 04/17/18. The breast parenchymademonstrates scattered fibroglandular elements without change. No developingmass or clustered microcalcifications.Impression:1. ACR BI-RADS 2, benign findings.Recommendations: Routine yearly mammographic follow-up.SCR MAMM BILATERAL CAD [id number] 11:12:20 - SCR MAMM BILATERAL CAD DIGITALBILATERAL DIGITAL SCREENING MAMMOGRAM WITH CAD: 04/17/2018CLINICAL: Asymptomatic. Current mammographic images were evaluated by either a [employer] M-Vu or a [employer] ImageChecker CAD (computer aided detection system). Several unsuccessful [...] will be reassessed. Kiel Fabian.Jimenez lópez/maki:05/07/2018 11:12:20 Meat Counter Clerk: Elizabeth Del Angel, [facility]-RGletter sent: BIRADS 1-2 Normal Mammogram BI-RADS: 1 Negative
[2022-11-20 19:08] LABS: Absolute Lymphocytes (CBC) 0.5 K/uL (0.7-4.9); Lymphocytes % 4.2 % (15.3-44.8); RBC Red Blood Cell Count 3.62 M/uL (3.86-4.86)
[2022-11-20] MEDS ORDERED: NA CHLORIDE 0.9% 1,000 ML ONE (19:13)
[2022-11-20 19:15] LABS: Protime INR 1.45
[2022-11-20] MEDS ORDERED: FENTANYL CITR 100 MCG/2 ML ONE (19:45)
[2022-11-20 19:46] LABS: Bilirubin Total 0.5 mg/dL (0.2-1.0); Potassium 3.1 mEq/L (3.5-5.1); Protein, Total 7.2 g/dL (6.4-8.2)
--- NOTE | 2022-11-20 20:32 | RAD REPORT ---
EXAM DESCRIPTION: CT - Head Brain Wo Cont - 11/20/2022 8:17 pm CLINICAL HISTORY: Headache COMPARISON: July 2022 TECHNIQUE: Computed axial tomography of the head was obtained. IV contrast was not requested. All CT scans are performed using dose optimization technique as appropriate and may include automated exposure control or mA/KV adjustment according to patient size. FINDINGS: Right ventriculostomy tube has its tip in the region of the left lateral ventricle. The ve ntricles are small. Low-density within the right frontal lobe and right thalamus may be secondary to old infarction. Small to moderate bilateral subdural effusions are without significant change Pituitary gland measures 11 millimeters craniocaudal length Fluid within the sinuses/ mastoids is not seen. IMPRESSION: Small to moderate bilateral subdural effusions are without significant change from 2022. Enlarged pituitary gland probably an adenoma. A dedicated MRI of the pituitary gland could be obtaine d for further evaluation
--- NOTE | 2022-11-20 20:42 | RAD REPORT ---
EXAM DESCRIPTION: CT - Chest For Pe Angio - 11/20/2022 8:16 pm CLINICAL HISTORY: Chest pain COMPARISON: October 30, 2022 TECHNIQUE: Dynamically enhanced axial 3 mm thick images of the chest were obtained during administra tion of 100 mL Isovue 370 IV contrast. Coronal and oblique reconstruction images were generated and r eviewed. Exam utilizes a protocol for optimal evaluation of pulmonary arterial tree. Maximum intensity projections 3D imaging was utilized All CT scans are performed using dose optimization technique as appropriate and may include automated exposure control or mA/KV adjustment according to patient size. FINDINGS: A pulmonary embolus is not seen. A thoracic aortic aneurysm is not noted. A pleural effusion is not seen. A pericardial effusion is not seen. 3 centimeter soft tissue superior mediastinum Mild lower lobe atelectasis Non opacification superior vena cava with enlarged azygos and connie azygous veins IMPRESSION: Negative for a pulmonary embolism. 3 centimeter soft tissue superior mediastinum presumably lymphoma. If clinically indicated further ev aluation with PET scan may be helpful
[2022-11-20] MEDS ORDERED: CEFEPIME 2 GM VIAL ONE (20:58)
[2022-11-20] MEDS ORDERED: NA CHLORIDE 0.9% 100 ML ONE (20:59)
[2022-11-20] MEDS ORDERED: HYDROMORPHONE HCL 1 MG/ML INJ ONE (20:59)
[2022-11-20 21:00] LABS: Specific Gravity > 1.030 (1.005-1.030); Urine Bacteria None Seen /HPF (<20); Urine Bilirubin NEGATIVE (Negative); Urine Blood Negative (Negative); Urine Clarity Clear (Clear); Urine Color Light-Yellow (Yellow); Urine Glucose NEGATIVE (Negative); Urine Mucus Slight /HPF (None Seen); Urine Protein NEGATIVE (Negative); Urine RBC <5 /HPF (None Seen); Urine Urobilinogen Normal (Normal); Urine pH 5.5 (5.0-7.0)
--- NOTE | 2022-11-20 21:01 | EDPHYS ---
Physician Documentation [facility] Name: Mela Carpio Age: 52 yrs Sex: Female : 1970 Arrival Date: 11/20/2022 Time: 17:25 Bed 16 Private MD: ED Physician Jeannette Quintero HPI: 11/20 17:48 This 52 yrs old Female presents to ER via Wheelchair with complaints of snw CHILLS/FEVER SHAKING. 17:48 Pt left cancer center post lab draw and flush of PICC, sudden onset N/V, fever, snw bodyaches. Onset: The symptoms/episode began/occurred suddenly. as needed. 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 ROS: 17:41 Eyes: Negative for injury, pain, redness, and discharge, ENT: Negative for injury, snw pain, and discharge, Neck: Negative for injury, pain, and swelling, Cardiovascular: Negative for chest pain, palpitations, and edema, Respiratory: Negative for shortness of breath, cough, wheezing, and pleuritic chest pain. 17:41 Back: Negative for injury and pain, : Negative for injury, bleeding, discharge, and swelling. 17:41 Skin: Negative for injury, rash, and discoloration, Neuro: Negative for headache, weakness, numbness, tingling, and seizure, Psych: Negative for depression, anxiety, suicide ideation, homicidal ideation, and hallucinations. 17:41 Constitutional: Positive for body aches, chills, fever, malaise, poor PO intake, vomiting. 17:41 Constitutional: Positive for Pt was at Cancer center, had blood drawn for chemo next week. They changed her PICC dressing and pt was leaving the center. Sudden onset pain all over, fever, n/v. 17:41 Abdomen/GI: Positive for nausea and vomiting. 17:41 MS/extremity: Positive for upper extremities painful. Exam: 17:40 Head/Face: Normocephalic, atraumatic. Eyes: Pupils equal round and reactive to light, snw extra-ocular motions intact. Lids and lashes normal. Conjunctiva and sclera are non-icteric and not injected. Cornea within normal limits. Periorbital areas with no swelling, redness, or edema. ENT: Nares patent. No nasal discharge, no septal abnormalities noted. Tympanic membranes are normal and external auditory canals are clear. Oropharynx with no redness, swelling, or masses, exudates, or evidence of obstruction, uvula midline. Mucous membranes moist. Neck: Trachea midline, no thyromegaly or masses palpated, and no cervical lymphadenopathy. Supple, full range of motion without nuchal rigidity, or vertebral point tenderness. No Meningismus. Chest/axilla: Normal chest wall appearance and motion. Nontender with no deformity. No lesions are appreciated. 17:40 Back: No spinal tenderness. No costovertebral tenderness. Full range of motion. Skin: Warm, dry with normal turgor. Normal color with no rashes, no lesions, and no evidence of cellulitis. MS/ Extremity: Pulses equal, no cyanosis. Neurovascular intact. Full, normal range of motion. Neuro: Awake and alert, GCS 15, oriented to person, place, time, and situation. Cranial nerves II-XII grossly intact. Motor strength 5/5 in all extremities. Sensory grossly intact. Cerebellar exam normal. Normal gait. Psych: Awake, alert, with orientation to person, place and time. Behavior, mood, and affect are within normal limits. 17:40 Constitutional: The patient appears alert, anxious, listless, obviously ill, uncomfortable. 17:40 Cardiovascular: Rate: tachycardic, Rhythm: regular, Pulses: no pulse deficits are appreciated, Heart sounds: normal. 17:40 Respiratory: the patient does not display signs of respiratory distress, Respirations: no acute changes, shallow respirations, that is mild. 17:40 Abdomen/GI: Inspection: abdomen appears normal, actively vomiting in triage. Vital Signs: 17:37 BP 143 / 76; Pulse 135; Resp 18; Temp 101.1; Pulse Ox 95% on R/A; Weight 77.11 kg; iw Height 5 ft. 4 in. ; Pain 8/10; 18:30 Pulse Ox 90% on R/A; nj1 19:03 BP 115 / 52; Pulse 112; Resp 18; Pulse Ox 96% on 2 lpm NC; nj1 19:09 Temp 100.2(O); nj1 19:33 BP 131 / 82; Pulse 104; Resp 18; Pulse Ox 99% on 2 lpm NC; Pain 8/10; nj1 20:01 Pain 7/10; nj1 21:00 BP 121 / 80; Pulse 116; Resp 19; Temp 98.7(O); Pulse Ox 95% on 2 lpm NC; Pain 8/10; nj1 17:37 Body Mass Index 29.18 (77.11 kg, 162.56 cm) iw 17:37 Pain Scale: Adult iw 19:33 Pain Scale: Adult nj1 20:01 Pain Scale: Adult nj1 21:00 Pain Scale: Adult nj1 MDM: 17:31 Patient medically screened. snw 19:05 Differential Diagnosis sepsis, flu, gastroenteritis. Data reviewed: vital signs, nurses snw notes. Management of patient was discussed with the following: Dr. Torres. I considered the following discharge prescriptions or medication management in the emergency department Medications were administered in the Emergency Department. See MAR NS. Response to treatment: the patient's symptoms have mildly improved after treatment. 19:34 Transition of care: After a detail discussion of the patient's case, care is snw transferred to Andrew Torres MD. 20:58 ED course: Patient seen by midlevel provider Justino and Dr. Torres who has signed sp3 patient out to me. Patient is a 52-year-old female with history of lymphoma presents with generalized malaise and weakness and fever of 100.4. Patient is on active chemotherapy. Patient CT scan is negative for PE and infection and lymphoma is visualized. WBC count is not elevated. Empiric treatment with cefepime and vancomycin has been started. Urine analysis is still outstanding. Blood cultures are also pending. Will admit patient to inpatient team for further disposition from there.. 11/20 17:37 Order name: Flu; Complete Time: 18:33 snw 11/20 17:37 Order name: SARS RAPID; Complete Time: 18:16 snw 11/20 17:37 Order name: Blood Culture Adult (2) snw 11/20 17:37 Order name: CBC with Diff; Complete Time: 19:12 snw 11/20 17:37 Order name: CMP; Complete Time: 20:06 snw 11/20 17:37 Order name: Lactate w/ 2H reflex if indic.; Complete Time: 20:06 snw 11/20 17:37 Order name: Protime (+inr); Complete Time: 19:16 snw 11/20 17:37 Order name: Ptt, Activated; Complete Time: 19:16 snw 11/20 17:39 Order name: Strep; Complete Time: 18:16 snw 11/20 17:39 Order name: Urine W/Microscopic (UAM); Complete Time: 21:01 snw 11/20 18:11 Order name: Glucose, Ancillary Testing; Complete Time: 18:16 EDMS 11/20 18:14 Order name: Throat Culture EDMS 11/20 21:15 Order name: Blood Culture*: FROM PICC LINE; Complete Time: 09:55 la1 11/20 17:37 Order name: Chest For PE Angio CT; Complete Time: 20:45 snw 11/20 17:39 Order name: CT Head Brain wo Cont; Complete Time: 20:38 snw 11/20 17:37 Order name: EKG; Complete Time: 17:38 snw 11/20 17:37 Order name: Accucheck; Complete Time: 18:59 snw 11/20 17:37 Order name: Cardiac monitoring; Complete Time: 18:59 snw 11/20 17:37 Order name: EKG - Nurse/Tech; Complete Time: 18:59 snw 11/20 17:37 Order name: IV Saline Lock - Large Bore; Complete Time: 19:00 snw 11/20 17:37 Order name: Labs collected and sent; Complete Time: 19:00 snw 11/20 17:37 Order name: O2 Per Protocol; Complete Time: 19:00 snw 11/20 17:37 Order name: O2 Sat Monitoring; Complete Time: 19:00 snw 11/20 17:37 Order name: Vital Signs; Complete Time: :00 snw EC:15 Rate is 120 beats/min. Rhythm is regular. QRS [place] is Normal. RI interval is normal. snw Clinical impression: Sinus tachycardia. Administered Medications: 19:08 Drug: NS 0.9% IV 1000 ml Route: IV; Rate: 1 bolus; Site: left antecubital; nj1 19:40 Follow up: Response: No adverse reaction nj1 21:34 Follow up: IV Status: Completed infusion; IV Intake: 1000ml vg1 19:40 Drug: fentaNYL (PF) IVP 25 mcg Route: IVP; Site: left antecubital; nj1 20:01 Follow up: Response: No adverse reaction; Pain is decreased nj1 21:00 Drug: HYDROmorphone IVP 1 mg Route: IVP; Site: left antecubital; nj1 21:02 Drug: Cefepime IVPB 2 grams Route: IVPB; Rate: 200 ml/hr; Infused Over: 30 mins; Site: [facility] left antecubital; 21:32 Follow up: IV Status: Completed infusion; IV Intake: 100ml vg1 22:04 Drug: vancoMYCIN IVPB 1 grams Route: IVPB; Infused Over: 2 hrs; Site: left upper arm; vg1 Disposition: 20:59 Co-signature as Attending Physician, Jeannette Quintero MD. sp3 Disposition Summary: 11/20/22 21:00 Hospitalization Ordered Hospitalization Status: Observation sp3 Provider: Gian Barnes sp3 Location: Telemetry/MedSurg (observation) sp3 Condition: Stable sp3 Problem: an acute exacerbation sp3 Symptoms: have worsened sp3 Bed/Room Type: Standard sp3 Room Assignment: 207(11/20/22 21:48) eb1 Diagnosis - Lymphoma, fever, possible sepsis, generalized weakness and malaise sp3 Forms: - Medication Reconciliation Form sp3 - SBAR form sp3 Signatures: Dispatcher [employer] Nohemi Edwards, CUSTOMER SOLUTIONS TEAMMATE-C CUSTOMER SOLUTIONS TEAMMATE-Csnw Karina Elliott RN RN iw Ricardo Mao FNP-C CUSTOMER SOLUTIONS TEAMMATE-Cla1 Kady Ortega RN RN eb1 Abida Dias RN RN juan1 Jeannette Quintero MD MD sp3 Breana Syed RN RN nj1 Corrections: (The following items were deleted from the chart) 21:48 21:00 sp3 eb1
--- NOTE | 2022-11-20 21:01 | ER ---
Nurse's Notes [facility] Name: Mela Carpio Age: 52 yrs Sex: Female : 1970 Arrival Date: 11/20/2022 Time: 17:25 Bed 16 Private MD: Diagnosis: Lymphoma, fever, possible sepsis, generalized weakness and malaise Presentation: 11/20 17:37 Chief complaint: Patient states: sudden shaking, chills, vomiting after her Doctor's iw appt , has been having Headache all day. Coronavirus screen: Client presents with at least one sign or symptom that may indicate coronavirus-19. Ebola Screen: Patient negative for fever greater than or equal to 101.5 degrees Fahrenheit, and additional compatible Ebola Virus Disease symptoms Patient denies exposure to infectious person. Patient denies travel to an Ebola-affected area in the 21 days before illness onset. No symptoms or risks identified at this time. Initial Sepsis Screen: Does the patient meet any 2 criteria? Temp <36.0*C (96.8*F)) or > 38.3*C (100.9*F). HR > 90 bpm. Does the patient have a suspected source of infection?. Risk Assessment: Do you want to hurt yourself or someone else? Patient reports no desire to harm self or others. Onset of symptoms was November 20, 2022. 17:37 Method Of Arrival: Wheelchair iw 17:37 Acuity: DAYSI 3 iw 17:41 Acuity: DAYSI 2 iw 17:41 Initial Sepsis Screen: Does the patient have a suspected source of infection?. iw Historical: - Allergies: 17:39 Morphine; iw - Home Meds: 17:39 amlodipine 5 mg tab 1 tab once daily [Active]; dexamethasone 4 mg Oral tab [Active]; iw escitalopram oxalate 10 mg Oral tab 1 tab once daily [Active]; hydrochlorothiazide 12.5 mg Oral tab 1 tab once daily [Active]; ondansetron HCl 4 mg Oral tab 1 tab 4 times per day [Active]; sertraline 25 mg Oral tab 1 tab once daily [Active]; zolpidem 10 mg Oral tab 1 tab once daily [Active]; - PMHx: 17:39 NH Lymphoma; Currently on Chemotherapy; CVA July 2022; LEFT SIDED WEAKNESS; iw Hydrocephalus; TIA; - PSHx: 17:39 hysterectomy; section; SUPERVISOR MATRIX shunt; iw - Social history:: Smoking status: Patient denies any tobacco usage or history of. Screenin:30 [facility] ED Fall Risk Assessment (Adult) History of falling in the last 3 months, nj1 including since admission Confusion or Disorientation. Abuse screen: Denies threats or abuse. Denies injuries from another. Nutritional screening: No deficits noted. Tuberculosis screening: No symptoms or risk factors identified. Assessment: 18:30 Reassessment: Patient appears in no apparent distress at this time. Patient and/or nj1 family updated on plan of care and expected duration. Pain level reassessed. Patient is alert, oriented x 3, equal unlabored respirations, skin warm/dry/pink. General: Appears in no apparent distress. uncomfortable, Behavior is calm, cooperative, appropriate for age. Pain: Complains of pain in Generalized Pain currently is 8 out of 10 on a pain scale. 18:30 Neuro: Level of Consciousness is awake, alert, obeys commands, Oriented to person, nj1 place, time, situation. Cardiovascular: Patient's skin is warm and dry. Rhythm is sinus tachycardia. Respiratory: Airway is patent Respiratory effort is even, unlabored. 18:30 GI: Patient currently denies nausea. nj1 19:32 Reassessment: Patient appears in no apparent distress at this time. Patient and/or nj1 family updated on plan of care and expected duration. Pain level reassessed. Patient is alert, oriented x 3, equal unlabored respirations, skin warm/dry/pink. Patient states symptoms have improved. 19:32 Pain: Complains of pain in Generalized Pain currently is 8 out of 10 on a pain scale. nj1 21:00 Reassessment: Patient appears in no apparent distress at this time. Patient and/or nj1 family updated on plan of care and expected duration. Pain level reassessed. Patient is alert, oriented x 3, equal unlabored respirations, skin warm/dry/pink. Pain: Complains of pain in Generalized Pain currently is 8 out of 10 on a pain scale. 21:27 Reassessment: attempted to obtain cultures from PICC line as ordered by Ricardo Mao; vg1 notified provider difficulty flushing both ports, also notified provider that upon flushing with NS flush PICC line infiltrated. 22:28 Reassessment: attempted to call report. vg1 Vital Signs: 17:37 BP 143 / 76; Pulse 135; Resp 18; Temp 101.1; Pulse Ox 95% on R/A; Weight 77.11 kg; iw Height 5 ft. 4 in. ; Pain 8/10; 18:30 Pulse Ox 90% on R/A; nj1 19:03 BP 115 / 52; Pulse 112; Resp 18; Pulse Ox 96% on 2 lpm NC; nj1 19:09 Temp 100.2(O); nj1 19:33 BP 131 / 82; Pulse 104; Resp 18; Pulse Ox 99% on 2 lpm NC; Pain 8/10; nj1 20:01 Pain 7/10; nj1 21:00 BP 121 / 80; Pulse 116; Resp 19; Temp 98.7(O); Pulse Ox 95% on 2 lpm NC; Pain 8/10; nj1 17:37 Body Mass Index 29.18 (77.11 kg, 162.56 cm) iw 17:37 Pain Scale: Adult iw 19:33 Pain Scale: Adult nj1 20:01 Pain Scale: Adult nj1 21:00 Pain Scale: Adult nj1 ED Course: 17:26 Patient arrived in ED. kj1 17:27 [facility] snw 17:27 Andrew Torres MD is Attending Physician. snw 17:39 Triage completed. iw 17:41 Arm band placed on. iw 17:53 Breana Syed, RN is Primary Nurse. nj1 18:01 Radiology exam delayed due to lab results not completed at this time. (BUN/Creatinine) jg10 IV insertion attempt and/or patient not having appropriate IV at this time. 18:30 Patient has correct armband on for positive identification. Bed in low position. Call nj1 light in reach. Side rails up X 1. Adult w/ patient. 18:45 Inserted saline lock: 20 gauge in left antecubital area, using aseptic technique. nj1 ,using aseptic technique. Ultrasound guided, catheter tip well visualized within vasculature during placement. Blood collected. Missed attempt(s): 20 gauge in right upper arm. Bleeding controlled, band aid applied, catheter tip intact. 18:45 First set of blood cultures drawn by me, Second set of blood cultures drawn Ok to draw nj1 from same IV site per PROGRAM DIRECTOR CABLE TELEVISION Badillo, charge nurse notified, instructed to send blood cultures with a note for exception. 20:06 Attending Physician role handed off by Andrew Torres MD sp3 20:06 Jeannette Quintero MD is Attending Physician. sp3 20:18 Chest For PE Angio CT In Process Unspecified. EDMS 20:18 CT Head Brain wo Cont In Process Unspecified. EDMS 21:00 Gian Barnes MD is Hospitalizing Provider. sp3 Administered Medications: 19:08 Drug: NS 0.9% IV 1000 ml Route: IV; Rate: 1 bolus; Site: left antecubital; nj1 19:40 Follow up: Response: No adverse reaction nj1 21:34 Follow up: IV Status: Completed infusion; IV Intake: 1000ml vg1 19:40 Drug: fentaNYL (PF) IVP 25 mcg Route: IVP; Site: left antecubital; nj1 20:01 Follow up: Response: No adverse reaction; Pain is decreased nj1 21:00 Drug: HYDROmorphone IVP 1 mg Route: IVP; Site: left antecubital; nj1 21:02 Drug: Cefepime IVPB 2 grams Route: IVPB; Rate: 200 ml/hr; Infused Over: 30 mins; Site: nj1 left antecubital; 21:32 Follow up: IV Status: Completed infusion; IV Intake: 100ml vg1 22:04 Drug: vancoMYCIN IVPB 1 grams Route: IVPB; Infused Over: 2 hrs; Site: left upper arm; vg1 Intake: 21:32 IV: 100ml; Total: 100ml. vg1 21:34 IV: 1000ml; Total: 1100ml. vg1 Outcome: 21:00 Decision to Hospitalize by Provider. sp3 23:26 Patient left the ED. vg1 Signatures: Dispatcher [employer] EDVT Nohemi Badillo, DANNY-C PROGRAM DIRECTOR CABLE TELEVISION-Csnw Karina Elliott, RN Noris Nicolas kj1 Abida Dias, GREGORIO RN vg1 Jeannette Quintero MD MD sp3 Tg Nice jg10 Breana Syed RN RN nj1 Corrections: (The following items were deleted from the chart) 19:12 18:30 Neuro: Level of Consciousness is awake, alert, obeys commands, Oriented to nj1 person, place, time, situation, nj1 21:35 21:27 Reassessment: attempted to obtain cultures from PICC line as verbally ordered by vg1 Ricardo Mao; notified provider difficulty flushing both ports, also notified provider that upon flushing with NS flush fluid came out through PICC site. vg1
[2022-11-20] MEDS ORDERED: NA CHLORIDE 0.9% 250 ML ONE (21:46)
[2022-11-20] MEDS ORDERED: VANCOMYCIN 1 GM/VIAL ONE (21:46)
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
[2022-11-20] MEDS ORDERED: ONDANSETRON 4 MG/2 ML VIAL IV PRN (22:57)
[2022-11-20] MEDS: NA CHLORIDE 0.9% 1,000 ML IV SCH (22:57)
[2022-11-20] MEDS ORDERED: ACETAMINOPHEN 500 MG TAB PO PRN (22:57)
[2022-11-20] MEDS ORDERED: MELATONIN 3 MG TABLET PO PRN (22:57)
[2022-11-20] MEDS ORDERED: VANCOMYCIN 1 GM in NA CHLORIDE 0.9% 250 ML IVPB SCH (22:57)
[2022-11-20] MEDS: VANCOMYCIN 1 GM in NA CHLORIDE 0.9% 250 ML IVPB ONE (23:30)
[2022-11-21] MEDS: HYDROCODONE/APAP 5/325 MG TAB PO PRN ×4 (00:25→23:23)
[2022-11-21] MEDS: NA CHLORIDE 0.9% 1,000 ML IV SCH ×3 (00:26→18:57)
[2022-11-21] MEDS: VANCOMYCIN 1 GM in NA CHLORIDE 0.9% 250 ML IVPB ONE (00:41)
[2022-11-21 04:08] LABS: Absolute Lymphocytes (CBC) 0.5 K/uL (0.7-4.9); Hematocrit 27.6 % (36.0-45.0); Lymphocytes % 4.5 % (15.3-44.8); MCV 83.6 fL (80-100); MPV 8.3 fL (7.6-11.3)
[2022-11-21 04:24] LABS: Potassium 2.8 mEq/L (3.5-5.1)
--- NOTE | 2022-11-21 05:33 | EKG ---
Test Date: 2022-11-20 Test Time: 18:01:59 Line Producer: ALEX MEASUREMENT RESULTS: Intervals: Rate: 120 CT: 172 QRSD: 66 QT: 284 QTc: 401 Boley: P: 76 CT: 172 QRS: 12 T: 90 INTERPRETIVE STATEMENTS: Sinus tachycardia Nonspecific T wave abnormality Abnormal ECG Compared to ECG 10/30/2022 13:12:13 No significant changes Electronically Signed On 11-21-22 05:32:19 CDT by Jimbo Monterroso
[2022-11-21] MEDS: KCL 20 MEQ/100 mL IVPB 20 MEQ/100 ML BAG IV SCH ×3 (06:51→11:14)
[2022-11-21] MEDS: APIXABAN 5 MG TABLET PO SCH ×2 (08:08→20:57)
[2022-11-21 08:13] LABS: Blood Morphology Comment NOT SEEN (NOT SEEN); Platelet Estimate ADEQ; White Blood Cell Scan OK (OK)
--- NOTE | 2022-11-21 08:34 | P.PN ---
Subjective Date of Service: 11/21/22 Chief Complaint: Fevers Subjective: No new changes, Improving (Still had occasions of fever of 101.1.) Physical Examination - Vital Signs Temperature: 98.5 F Blood Pressure: 138/87 Pulse: 88 Respirations: 16 Pulse Ox (%): 96 - Physical Exam General: Alert, Oriented x3 HEENT: Atraumatic, Normocephalic Neck: Supple Respiratory: Normal air movement Cardiovascular: Regular rate/rhythm, Normal S1 S2 Gastrointestinal: Soft and benign Musculoskeletal: No swelling Neurological: Normal speech - Studies Laboratory Data (last 24 hrs) 11/20/22 18:45: PT 15.9 H, INR 1.45, APTT 38.5 H 11/20/22 18:45: Sodium 140, Potassium 3.1 L, BUN 13, Creatinine 0.71, Glucose 104, Total Bilirubin 0.5, AST 20, ALT 28, Alkaline Phosphatase 100 11/20/22 18:45: WBC 10.80, Hgb 10.1 L, Hct 30.0 L, Plt Count 249 Microbiology Data (last 24 hrs): 11/20/22 18:45 Blood - Blood Anaerobic Blood Culture - Final 11/20/22 18:45 Blood - Blood Anaerobic Blood Culture - Final 11/20/22 17:51 Nasopharnyx Influenza Type A Antigen Screen - Final 11/20/22 17:51 Nasopharnyx Influenza Type B Antigen Screen - Final 11/20/22 17:51 Throat Group A Streptococcus Rapid Screen - Final Assessment And Plan - Plan - Plan Assessment: Fever, SIRS criteria Non-Hodgkin's lymphoma on chemo-last chemo approximately 1 month ago History of hydrocephalus with STUDENT LIFE VICE PRESIDENT shunt DVT on Eliquis Plan: Fever, SIRS criteria PICC line entry/exit site shows purulent discharge. There is significant concern for CLABSI. We will remove PICC line and continue empiric antibiotic therapy. If cultures show bacteremia, will consult ID for management recommendation. Non-Hodgkin's lymphoma on chemo-last chemo approximately 1 month ago outpatient management History of hydrocephalus with STUDENT LIFE VICE PRESIDENT shunt Stable, patient has outpatient follow-up scheduled in November. DVT on Eliquis Continue Eliquis. DVT PPX: Continue Eliquis Code status: full Discharge Plan: Home Plan to discharge in: Pending finalization of treatment plan.
[2022-11-21] MEDS ORDERED: CEFEPIME 1 GM in NA CHLORIDE 0.9% 100 ML IV SCH (09:00)
[2022-11-21] MEDS: VANCOMYCIN 1.5 GM in NA CHLORIDE 0.9% 500 ML IVPB SCH ×2 (10:04→21:00)
[2022-11-21] MEDS: CEFEPIME 2 GM in NA CHLORIDE 0.9% 100 ML IV SCH (17:43)
[2022-11-21] MEDS ORDERED: VANCOMYCIN 1.5 GM in NA CHLORIDE 0.9% 500 ML IVPB SCH (18:30)
[2022-11-22] MEDS: CEFEPIME 2 GM in NA CHLORIDE 0.9% 100 ML IV SCH ×3 (01:15→17:13)
[2022-11-22] MEDS: NA CHLORIDE 0.9% 1,000 ML IV SCH ×2 (01:40→14:33)
[2022-11-22 04:17] VITALS: BMI 28.9
[2022-11-22 07:51] LABS: Absolute Lymphocytes (CBC) 1.1 K/uL (0.7-4.9); Hematocrit 27.3 % (36.0-45.0); Lymphocytes % 19.7 % (15.3-44.8); MCV 83.1 fL (80-100); MPV 8.5 fL (7.6-11.3); RBC Red Blood Cell Count 3.28 M/uL (3.86-4.86)
[2022-11-22] MEDS ORDERED: CEFEPIME 2 GM VIAL ONE (08:06)
[2022-11-22] MEDS: APIXABAN 5 MG TABLET PO SCH ×2 (08:09→21:44)
[2022-11-22] MEDS ORDERED: NA CHLORIDE 0.9% 100 ML ONE (08:10)
[2022-11-22] MEDS: HYDROCODONE/APAP 5/325 MG TAB PO PRN ×3 (08:10→21:43)
[2022-11-22 08:11] LABS: Potassium 3.2 mEq/L (3.5-5.1)
[2022-11-22] MEDS: VANCOMYCIN 1.5 GM in NA CHLORIDE 0.9% 500 ML IVPB SCH ×2 (09:48→21:44)
[2022-11-22 10:10] LABS: Platelet Estimate ADEQ
[2022-11-22 10:11] LABS: Anisocytosis 1+; Blood Morphology Comment NOTED (NOT SEEN); Polychromasia SLIGHT
[2022-11-22] MEDS ORDERED: POTASSIUM 25 MEQ EFFERV TAB PO ONE ×2 (10:30→17:39)
[2022-11-22] MEDS ORDERED: LORazepam 2 MG/ML VIAL IV ONE (12:00)
--- NOTE | 2022-11-22 13:17 | RAD REPORT ---
EXAM DESCRIPTION: CT - Thorax W/ Con - 11/22/2022 12:41 pm CLINICAL HISTORY: SVC occlusion COMPARISON: Chest For Pe Angio dated 11/20/2022; Chest For Pe Angio dated 10/30/2022; Ct Skull/Thigh da fabiano 10/03/2022; Ct Skull/Thigh dated 06/20/2022 TECHNIQUE: Axial thin cut images of the chest were obtained following intravenous administration of 100 mL Isovue-300. Images were obtained in arterial and sigmoid delayed venous phases. Multiplanar re formats were generated and reviewed. All CT scans are performed using dose optimization technique as appropriate and may include automated exposure control or mA/KV adjustment according to patient size. FINDINGS: Ill-defined appearance of soft tissue thickening in the superior mediastinum, obliteratin g the fat planes along the proximal aortic arch and anterior aspect of the trachea. The hypoattenuati ng mass component measures 1.9 x 0.9 centimeter in axial dimensions, probably stable compared to the recent CT chest and PET-CT allowing for differences in technique. Obliterated lumen of the superior vena cava from the level of the right innominate vein formation (se yony 3, image 15), to the level of the distal SVC (series 3, image 26). Please also see coronal image s 25-27, series 602. There may be a segment of incomplete effacement of the SVC, along the proximal a spect, best appreciated on coronal image 42 series 605, measuring approximately 2 centimeter in lengt h. The left innominate vein is also markedly attenuated along its mid to distal aspect, with non opac ification of its junction with the SVC (see series 7 images 16-18). A patulous left internal thoracic vein is demonstrated, with development of mild venous collaterals along the anterior chest wall. No suspicious mass or consolidation in the lung parenchyma. Small bilateral pleural effusions, more p ronounced on the right. Dependent subsegmental toes segmental opacities, suggestive of atelectasis. N o pneumothorax. No abnormal mediastinal or hilar masses or lymphadenopathy seen. No significant aortic or pulmonary a rtery findings. No other chest wall mass or abnormal axillary lymphadenopathy. Evaluation of the solid abdominal structures reveals no suspicious findings. Stable lobulated subcaps ular fluid density lesion in the left lower lobe superiorly measuring 3.7 x 2.6 centimeter. IMPRESSION: Grossly stable masslike soft tissue thickening in the superior mediastinum allowing for differences in technique. This may relate to post treatment changes. Obliterated lumen of the SVC, right innominate vein, with markedly narrowed lumen of the left innomin ate vein. There may be a segment of incomplete effacement along the proximal SVC seen on the venous p hase, as above. Formation of collaterals along the anterior chest wall with patulous appearance of th e left internal thoracic vein. Small bilateral pleural effusions larger on the right, with underlying segmental to subsegmental atel ectasis. Other stable findings as above.
[2022-11-22] MEDS: Mupirocin NASAL 2 APPL/1 GM TUBE NAS SCH (22:00)
[2022-11-23] MEDS: NA CHLORIDE 0.9% 1,000 ML IV SCH ×3 (00:57→17:06)
[2022-11-23] MEDS: CEFEPIME 2 GM in NA CHLORIDE 0.9% 100 ML IV SCH ×3 (01:09→17:05)
[2022-11-23] MEDS: HYDROCODONE/APAP 5/325 MG TAB PO PRN ×3 (03:05→20:09)
[2022-11-23] MEDS: APIXABAN 5 MG TABLET PO SCH ×2 (07:51→20:09)
[2022-11-23] MEDS: Mupirocin NASAL 2 APPL/1 GM TUBE NAS SCH ×2 (07:51→20:11)
[2022-11-23] MEDS: VANCOMYCIN 1.5 GM in NA CHLORIDE 0.9% 500 ML IVPB SCH ×2 (07:52→20:10)
[2022-11-23 10:55] LABS: Absolute Lymphocytes (CBC) 1.3 K/uL (0.7-4.9); Hematocrit 27.9 % (36.0-45.0); Lymphocytes % 21.3 % (15.3-44.8); MCV 82.9 fL (80-100); MPV 8.5 fL (7.6-11.3); RBC Red Blood Cell Count 3.36 M/uL (3.86-4.86)
[2022-11-23 10:59] LABS: Protime INR 1.53
[2022-11-23 11:50] LABS: Albumin 2.6 g/dL (3.4-5.0); Bilirubin Total 0.3 mg/dL (0.2-1.0); C-Reactive Protein 52.4 mg/L (<3.00); Ferritin 212.4 ng/mL (8-388); Phosphorus 3.4 mg/dL (2.5-4.9); Potassium 3.6 mEq/L (3.5-5.1); Protein, Total 6.6 g/dL (6.4-8.2); Thyroid Stimulating Hormone 1.58 uIU/mL (0.358-3.740)
[2022-11-23] MEDS ORDERED: POTASSIUM CL SA 10 MEQ TAB PO ONE (13:00)
--- NOTE | 2022-11-23 22:12 | RAD REPORT ---
EXAM DESCRIPTION: RAD - Chest Single View - 11/23/2022 1:40 am ADDENDUM #1 THIS REPORT CONTAINS FINDINGS THAT MAY BE CRITICAL TO PATIENT CARE: Called, telephoned, verbal repo rt was given oral to Alexandria Alivia register nurse at 2:09 AM CDT on 11/23/2022. Electronically signed by: Monroe Coates MD 11/23/2022 2:42 AM CDT End of Addendum EXAM DESCRIPTION: Chest Single View 11/23/2022 1:56 AM CDT CLINICAL HISTORY: 52 years, Female, S/P PICC insertion COMPARISON: Unable to compare prior studies. FINDINGS: Single view of the chest was obtained portable. Prior films were compared. The lung volume is decreased. There has been interval placement of a left upper extremity PICC line catheter within the left side of the midline perhaps arterial in position. The cardiomediastinal silhouette demonstra te to be unremarkable. The heart is not enlarged. The thoracic aorta is unremarkable. Subsegmental at electatic changes within the left lung base. Costophrenic angles are sharp. The rest of the soft ti ssue and bony structures demonstrate to be unremarkable. IMPRESSION: Left upper extremity PICC line catheter within the left side of the midline perhaps jemal rial in position. Subsegmental atelectatic changes within the left lung base. Electronically signed by: Monroe Coates MD 11/23/2022 1:58 AM CDT Due to temporary technical issues with the PACS/Fluency reporting system, reports are being signed by the in house radiologists without review as a courtesy to insure prompt reporting. The interpreting radiologist is fully responsible for the content of the report.
[2022-11-24] MEDS: CEFEPIME 2 GM in NA CHLORIDE 0.9% 100 ML IV SCH ×3 (00:45→17:20)
[2022-11-24] MEDS: NA CHLORIDE 0.9% 1,000 ML IV SCH ×3 (00:51→16:57)
[2022-11-24] MEDS: HYDROCODONE/APAP 5/325 MG TAB PO PRN ×3 (03:29→20:25)
[2022-11-24] MEDS: APIXABAN 5 MG TABLET PO SCH ×2 (08:46→20:21)
[2022-11-24] MEDS: Mupirocin NASAL 2 APPL/1 GM TUBE NAS SCH ×2 (08:46→21:00)
[2022-11-24] MEDS ORDERED: POTASSIUM CL SA 10 MEQ TAB PO ONE (11:00)
[2022-11-24] MEDS: VANCOMYCIN 1.5 GM in NA CHLORIDE 0.9% 500 ML IVPB SCH ×2 (11:36→20:20)
[2022-11-24 21:59] VITALS: O2SAT 97
[2022-11-25] MEDS: CEFEPIME 2 GM in NA CHLORIDE 0.9% 100 ML IV SCH ×2 (01:19→08:04)
[2022-11-25] MEDS: NA CHLORIDE 0.9% 1,000 ML IV SCH ×2 (05:14→12:48)
[2022-11-25] MEDS: HYDROCODONE/APAP 5/325 MG TAB PO PRN (05:29)
--- NOTE | 2022-11-25 07:50 | P.PN ---
Date of Service: 11/22/22 Subjective Patient denies any new complaints. Patient is clinically doing much better. Patient denies any new complaints. Continue with IV antibiotics. Physical Examination - Vital Signs Reviewed - Physical Exam General: Alert, Oriented x3 Respiratory: Normal air movement Cardiovascular: Regular rate/rhythm, Normal S1 S2 Gastrointestinal: Soft and benign Musculoskeletal: No swelling Neurological: No focal deficits Assessment And Plan -Assessment Assessment: Fever, SIRS criteria Non-Hodgkin's lymphoma on chemo-last chemo approximately 1 month ago History of hydrocephalus with GAME OPERATOR shunt DVT on Eliquis - Plan Plan: 1. PICC line has been removed. 2. We will give a line holiday and try to get this replaced at our hospital. If unable to then we will contact Dr. León at [facility] to try to get a another PICC line placed. 3. Chemotherapy scheduled for Friday. We will try to get IV placed prior to then 4. GI and DVT prophylaxis
--- NOTE | 2022-11-25 07:51 | P.PN ---
Date of Service: 11/23/22 Subjective Patient doing well no new complaints. Trying to get PICC line in today. If unable to then will discharge home. 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 PICC line has been removed. 2. We will give a line holiday and try to get this replaced at our hospital. If unable to then we will contact Dr. León at [facility] to try to get a another PICC line placed. 3. Chemotherapy scheduled for Friday. We will try to get IV placed prior to then 4. GI and DVT prophylaxis
--- NOTE | 2022-11-25 07:52 | P.PN ---
Date of Service: 11/24/22 Subjective PICC line was threaded into the vein but it was not in the SVC which is unlikely to make it there because of findings on CT scan. But it should be acceptable in the location it was then. Venogram needed to get done at that point. However, PICC line was removed. We will go ahead and try to get referral to Dr. Gavin if were unable to do this. Physical Examination - Vital Signs Reviewed - Physical Exam General: Alert, Oriented x3 Respiratory: Normal air movement Cardiovascular: Regular rate/rhythm, Normal S1 S2 Gastrointestinal: Soft and benign Musculoskeletal: No swelling Neurological: No focal deficits Assessment And Plan -Assessment Assessment: Fever, SIRS criteria Non-Hodgkin's lymphoma on chemo-last chemo approximately 1 month ago History of hydrocephalus with COMMERCIAL LITIGATION ASSOCIATE shunt DVT on Eliquis - Plan Plan: 1. PICC line was reattempted. It was placed in a proper position but it was removed because it was not at the SVC right atrial junction. Venogram could have been done at that time to make sure it was in the venous region. However, PICC line was removed. If unable to get this done then I will discharge to have it done at [facility]. 2. We will give a line holiday and try to get this replaced at our hospital. If unable to then we will contact Dr. León at [facility] to try to get a another PICC line placed. 3. Chemotherapy scheduled for Friday. We will try to get IV placed prior to then 4. GI and DVT prophylaxis
[2022-11-25] MEDS ORDERED: CEFEPIME 2 GM VIAL ONE (07:54)
[2022-11-25] MEDS ORDERED: NA CHLORIDE 0.9% 100 ML ONE (07:55)
[2022-11-25] MEDS: Mupirocin NASAL 2 APPL/1 GM TUBE NAS SCH (08:04)
[2022-11-25] MEDS: APIXABAN 5 MG TABLET PO SCH (08:05)
[2022-11-25] MEDS ORDERED: POTASSIUM 25 MEQ EFFERV TAB PO ONE (09:00)
[2022-11-25] MEDS: VANCOMYCIN 1.5 GM in NA CHLORIDE 0.9% 500 ML IVPB SCH (09:55)
[2022-11-25 11:25] LABS: Absolute Lymphocytes (CBC) 1.7 K/uL (0.7-4.9); Hematocrit 28.1 % (36.0-45.0); Lymphocytes % 25.2 % (15.3-44.8); MCV 83.6 fL (80-100); MPV 8.2 fL (7.6-11.3); RBC Red Blood Cell Count 3.36 M/uL (3.86-4.86)
[2022-11-25 11:37] LABS: Magnesium 1.9 mg/dL (1.6-2.4); Potassium 3.8 mEq/L (3.5-5.1)
[2022-11-25 12:46] VITALS: BP 134/70; TEMP 97.6
== END 2022-11-25 13:26 | disposition home health service (06) | DRG 864 ==
LOC: ER 17:25 → ERHOLD 21:19 → 2ND 22:19
PROVIDERS: ADMIT Internal Medicine Nephrology; ATTEND Hospitalist
PROC: 02HV33Z Insertion of Infusion Device into Superior Vena Cava, Percutaneous Approach (ICD-10-PCS; principal; 2022-11-22)
DX: R50.2 Drug induced fever (principal); C85.90 Non-Hodgkin lymphoma, unspecified, unspecified site; I69.354 Hemiplegia and hemiparesis following cerebral infarction affecting left non-dominant side; R65.10 Systemic inflammatory response syndrome (SIRS) of non-infectious origin without acute organ dysfunction; T45.1X5A Adverse effect of antineoplastic and immunosuppressive drugs, initial encounter; Z88.5 Allergy status to narcotic agent; Z98.51 Tubal ligation status; Z79.01 Long term (current) use of anticoagulants; Z79.82 Long term (current) use of aspirin; Z79.899 Other long term (current) drug therapy; Z90.710 Acquired absence of both cervix and uterus; Z86.718 Personal history of other venous thrombosis and embolism; Z20.822 Contact with and (suspected) exposure to COVID-19
CPT/HCPCS: 36415; 70450; 71045; 71260; 71275; 80048; 80053; 80202; 81001; 82533; 82607; 82728; 82947; 83540; 83605; 83615; 83735; 84100; 84132; 84145; 84439; 84443; 85025; 85044; 85610; 85730; 86140; 87040; 87070; 87081; 87804; 87811; 93005; 96523; 99215; 99284; J0692; J1170; J3010; J3480; J7030; J7040; J7050; Q9967